=== PATIENT | female | born 1940 | race Caucasian/White ===

== ENCOUNTER 2017-08-30 08:09 | Outpatient (RCR) | payer OTHER, SELFPAY ==
[2017-08-30 09:03] LABS: International Normalized Ratio 2.4; Prothrombin Time (Protime)PT. 25.5 SECONDS (11.7-14.9)
== END 2017-08-30 09:00 | disposition home or self-care (01) ==
LOC: LAB 08:09
PROVIDERS: Family Provider Internal Medicine; PCP Internal Medicine; Visit Provider Internal Medicine Cardiovascular Disease
DX: I48.0 Paroxysmal atrial fibrillation (principal)
CPT/HCPCS: 36415; 85610

== ENCOUNTER → 2017-09-21 08:19 | Outpatient (CLI) | payer OTHER, SELFPAY ==
[2017-09-21] VITALS (7 sets, daily range): BP systolic 63–83; BP diastolic 39–57; PULSE 99–116; RESP 16–20; TEMP 36.2–36.7; O2SAT 94–98; BMI 25.6
[2017-09-21] MEDS: Acetaminophen 325 MG Tablet 650 MG PO (08:29)
== END ==
PROVIDERS: Family Provider Internal Medicine; PCP Internal Medicine; Visit Provider Internal Medicine Hematology & Oncology
DX: Z51.89 Encounter for other specified aftercare (principal); D61.818 Other pancytopenia; K92.2 Gastrointestinal hemorrhage, unspecified
CPT/HCPCS: 36430; 86644; 86850; 86900; 86920; 86922; J7040; P9040; A4216

== ENCOUNTER 2017-10-04 15:21 | Outpatient (CLI) | payer OTHER, SELFPAY ==
[2017-10-04] VITALS (11 sets, daily range): BP systolic 55–97; BP diastolic 38–54; PULSE 93–117; RESP 16; TEMP 36.4–36.9; O2SAT 92–110
[2017-10-04] MEDS: Acetaminophen 325 MG Tablet 650 MG PO (16:09)
[2017-10-04 21:31] LABS: Bedside Glucose 170 mg/dL (70-110)
[2017-10-05 00:05] VITALS: BP 65/47; PULSE 93; RESP 16; TEMP 36.6; O2SAT 96
[2017-10-05 01:05] VITALS: BP 70/46; PULSE 99; RESP 18; TEMP 36.6; O2SAT 95
[2017-10-05 01:44] VITALS: BP 70/50; PULSE 101; RESP 18; TEMP 36.6; O2SAT 95
== END 2017-10-05 01:55 | disposition home or self-care (01) ==
LOC: MEDOUTP 15:22 → MS3 15:23
PROVIDERS: Family Provider Internal Medicine; PCP Internal Medicine; Visit Provider Internal Medicine Hematology & Oncology
DX: D46.20 Refractory anemia with excess of blasts, unspecified (principal); Z79.01 Long term (current) use of 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; K76.9 Liver disease, unspecified; K92.2 Gastrointestinal hemorrhage, unspecified
CPT/HCPCS: 36430; 82962; 86850; 86900; 86902; 86920; 86922; J7040; P9016; A4216

== ENCOUNTER → 2017-11-02 08:47 | Outpatient (CLI) | payer OTHER, SELFPAY ==
[2017-11-02] VITALS (7 sets, daily range): BP systolic 51–82; BP diastolic 33–56; PULSE 63–113; RESP 16–18; TEMP 36.3–36.8; O2SAT 92–100; BMI 25.2
[2017-11-02] MEDS: Acetaminophen 325 MG Tablet 650 MG PO (09:12)
== END ==
PROVIDERS: Family Provider Internal Medicine; PCP Internal Medicine; Visit Provider Internal Medicine Hematology & Oncology
DX: Z51.89 Encounter for other specified aftercare (principal); N18.9 Chronic kidney disease, unspecified; Z79.01 Long term (current) use of 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; K92.2 Gastrointestinal hemorrhage, unspecified
CPT/HCPCS: 36430; 86850; 86900; 86902; 86920; 86922; J7040; P9016; A4216

== ENCOUNTER 2017-11-08 11:01 | Outpatient (RCR) | payer OTHER, SELFPAY ==
[2017-09-13 10:37] LABS: International Normalized Ratio 3.3; Prothrombin Time (Protime)PT. 32.2 SECONDS (11.7-14.9)
[2017-09-27 10:34] LABS: International Normalized Ratio 3.2; Prothrombin Time (Protime)PT. 31.5 SECONDS (11.7-14.9)
[2017-10-19 11:13] LABS: International Normalized Ratio 2.9; Prothrombin Time (Protime)PT. 30.8 SECONDS (11.7-14.9)
[2017-11-08 12:24] LABS: International Normalized Ratio 2.8; Prothrombin Time (Protime)PT. 29.4 SECONDS (11.7-14.9)
== END 2017-11-08 12:00 | disposition home or self-care (01) ==
LOC: LAB 11:01
PROVIDERS: Family Provider Internal Medicine; PCP Internal Medicine; Visit Provider Internal Medicine Cardiovascular Disease
DX: I48.0 Paroxysmal atrial fibrillation (principal)
CPT/HCPCS: 36415; 85610

== ENCOUNTER → 2017-11-23 08:49 | Outpatient (CLI) | payer OTHER, SELFPAY ==
[2017-11-23] VITALS (7 sets, daily range): BP systolic 40–81; BP diastolic 29–53; PULSE 84–112; RESP 16–20; TEMP 36.5–36.9; O2SAT 94–98; BMI 25.2
[2017-11-23] MEDS: Acetaminophen 325 MG Tablet 650 MG PO (09:00)
== END ==
PROVIDERS: Family Provider Internal Medicine; PCP Internal Medicine; Visit Provider Internal Medicine Hematology & Oncology
DX: N18.3 Chronic kidney disease, stage 3 (moderate) (principal); D63.1 Anemia in chronic kidney disease
CPT/HCPCS: 36430; 86850; 86900; 86902; 86920; 86922; J7040; P9016; A4216

== ENCOUNTER 2017-12-06 10:23 | Outpatient (RCR) | payer OTHER, SELFPAY ==
[2017-11-22 11:50] LABS: Prothrombin Time (Protime)PT. 30.9 SECONDS (11.7-14.9)
[2017-12-06 11:30] LABS: International Normalized Ratio 3.3; Prothrombin Time (Protime)PT. 33.9 SECONDS (11.7-14.9)
== END 2017-12-06 11:00 | disposition home or self-care (01) ==
LOC: LAB 10:23
PROVIDERS: Family Provider Internal Medicine; PCP Internal Medicine; Visit Provider Internal Medicine Cardiovascular Disease
DX: I48.0 Paroxysmal atrial fibrillation (principal)
CPT/HCPCS: 36415; 85610

== ENCOUNTER 2017-12-13 13:27 | Outpatient (CLI) | payer OTHER, SELFPAY ==
[2017-12-13] VITALS (10 sets, daily range): BP systolic 63–109; BP diastolic 41–80; PULSE 87–111; RESP 16–18; TEMP 36.4–37; O2SAT 94–98; BMI 24.8
[2017-12-13] MEDS: Acetaminophen 325 MG Tablet 650 MG PO (13:40)
--- NOTE | 2017-12-13 16:00 | NURSING ---
Addendum entered by Georgina Castro 12/13/17 16:02: Pt transfered to [facility] at 1535 Original Note: Report given to Shonda White, pt alert and oriented x3 upon transfer to [facility].
== END 2017-12-13 21:10 | disposition home or self-care (01) ==
LOC: MEDOUTP 13:27 → MS2 15:44
PROVIDERS: Family Provider Internal Medicine; PCP Internal Medicine; Visit Provider Internal Medicine Hematology & Oncology
DX: Z51.89 Encounter for other specified aftercare (principal); N18.3 Chronic kidney disease, stage 3 (moderate); Z79.01 Long term (current) use of 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; K92.2 Gastrointestinal hemorrhage, unspecified
CPT/HCPCS: 36430; 86850; 86900; 86902; 86920; 86922; J7040; P9016; A4216

== ENCOUNTER 2017-12-20 10:15 | Outpatient (RCR) | payer OTHER, SELFPAY ==
[2017-12-20 11:59] LABS: International Normalized Ratio 2.8
== END 2017-12-20 11:00 | disposition home or self-care (01) ==
LOC: LAB 10:15
PROVIDERS: Family Provider Internal Medicine; PCP Internal Medicine; Visit Provider Internal Medicine Cardiovascular Disease
DX: I48.0 Paroxysmal atrial fibrillation (principal); Z95.2 Presence of prosthetic heart valve; Z79.01 Long term (current) use of 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
CPT/HCPCS: 36415; 85610

== ENCOUNTER → 2018-01-04 08:12 | Outpatient (CLI) | payer OTHER, SELFPAY ==
[2018-01-04] VITALS (7 sets, daily range): BP systolic 60–80; BP diastolic 35–45; PULSE 115–123; RESP 18–20; TEMP 36.2–37; O2SAT 92–99; BMI 24.7
[2018-01-04] MEDS: Acetaminophen 325 MG Tablet 650 MG PO (08:31)
== END ==
PROVIDERS: Family Provider Internal Medicine; PCP Internal Medicine; Visit Provider Internal Medicine Hematology & Oncology
DX: Z51.89 Encounter for other specified aftercare (principal)
CPT/HCPCS: 36430; 86644; 86850; 86900; 86902; 86920; 86922; J7040; P9016; A4216

== ENCOUNTER 2018-01-07 17:57 | Emergency (ER) | payer OTHER, SELFPAY ==
[2018-01-07] VITALS (13 sets, daily range): BP systolic 39–89; BP diastolic 24–62; PULSE 50–118; RESP 18–26; TEMP 36.4–36.6; O2SAT 22–100; BMI 24.6
--- NOTE | 2018-01-07 18:04 | EKG12_ITS ---
Test Reason : HYPOTENSION Blood Pressure : / mmHG Vent. Rate : 112 BPM Atrial Rate : 112 BPM P-R Int : 148 ms QRS Dur : 076 ms QT Int : 356 ms P-R-T Axes : 090 -01 122 degrees QTc Int : 485 ms Sinus tachycardia Low voltage QRS Nonspecific ST and T wave abnormality Abnormal ECG Confirmed by JENNIFER PFEIFFER ([id number]), offline editor SUZANNE SAAVEDRA ([id number]) on 01/21/2018 5:14:06 PM Referred By: MAMTA Confirmed By:JENNIFER PFEIFFER
[2018-01-07] MEDS: 0.9% Normal Saline 1,000 ML 1000 ML IV ×2 (18:21)
[2018-01-07 18:29] LABS: Absolute Lymphocyte Count 0.98 X10^3/ul (0.83-4.51); Absolute Neutrophil Count 8.9 X10^3/uL (2.0-7.7); Basophil# 0.03 X10^3/uL; Basophil% 0.3 % (0-1); Eosinophil# 0.05 X10^3/uL; Eosinophils% 0.5 % (0-5); Hematocrit 14.3 % (37-47); Lymphocyte # 0.98 X10^3/ul (4.0); Lymphocyte % 9.4 % (19-41); Mean Corp Hgb Conc 31.5 g/gl (32-36); Mean Corpuscular Hgb 28.3 pg (27.0-32.0); Mean Corpuscular Volume 89.9 fL (81-99); Monocyte% 3.8 % (0-10); Neutrophil # 8.94 X10^3/uL (2.7-7.7); Neutrophil % 85.4 % (47-70); Platelet Count 175 K/mm3 (150-450); RBC Distribution Width CV 18.8 % (11.6-14.6); RBC Distribution Width SD 57.1 fl (35.1-43.9); Red Blood Count 1.59 M/mm3 (4.2-5.4); White Blood Count 10.5 K/mm3 (4.4-11.0)
[2018-01-07 18:30] LABS: Differential Indicated SCAN CRITERIA MET; Hemoglobin 4.5 g/dl (12.0-15.0); POSITIVE COUNT YES; POSITIVE DIFFERENTIAL NO; POSITIVE MORPHOLOGY NO
[2018-01-07 18:49] LABS: ALB/GLOB Ratio 0.8 RATIO (0.9-2.4); AST(SGOT) 6 U/L (15-37); Alanine Aminotransfer ALT/SGPT 8 U/L (13-56); Albumin, Serum 2.3 g/dL (3.2-5.0); Alkaline Phosphatase 64 U/L (45-117); Anion Gap 9 (5-15); BUN 52 mg/dL (7-18); BUN/Creat Ratio 30.8 RATIO (10-20); Calcium,Total 7.5 mg/dL (8.5-10.1); Chloride 110 mmol/L (98-107); Creatinine, Serum 1.69 mg/dL (0.55-1.02); EST Glomerular Filtration Rate 31 mL/min (>60); Est Glom Filt Rate - Afr Amer 38 mL/min (>60); Estimated Creatinine Clearance 22.75 ml/min; Globulin 2.9 g/dL (2.2-4.2); Glucose 253 mg/dL (74-106); Protein, Total 5.2 g/dL (6.4-8.2); Sodium Level 136 mmol/L (136-145)
[2018-01-07 18:55] LABS: Differential Comment SCANNED; Hypochromasia RARE; Polychromasia 1+
[2018-01-07 18:56] LABS: Target Cells RARE
--- NOTE | 2018-01-07 19:54 | ED.RN ---
vs documented 90% on 2L- should be 100% 2L- TAR
[2018-01-07 21:11] LABS: Lactic Acid 1.6 mmol/L (0.4-2.0)
[2018-01-07 21:21] LABS: Prothrombin Time (Protime)PT. > 120.0 SECONDS (11.7-14.9)
[2018-01-07 21:23] LABS: International Normalized Ratio > 19.5
--- NOTE | 2018-01-07 21:30 | ED.RN ---
Dr. Boothe aware of results that were previously called
--- NOTE | 2018-01-07 21:59 | ED.DCSUM_ITS ---
- ER Visit Summary Date of Service: 01/07/18 Chief Complaint: Weakness History of Present Illness: The patient is a 77 F to the emergency department with weakness and lightheadedness. Patient called squad because she was feeling very dizzy. The patient has a very complex medical history. She has a history of mitral valve replacement with mechanical valve and is fully anticoagulated on Coumadin. She has had recurrent GI bleed and chronic anemia. She does follow with Dr. Olivarez. She actually just had 2 units of blood on Sunday for symptomatic anemia. States over the past 2 days, her symptoms worsened. She states that she has constant dark stool which is not abnormal for her. However, when she changes position she feels very lightheaded. For squad, she was markedly hypotensive with blood pressures in the 40s. She was awake and she was alert. She denies any abdominal pain. Physical Examination: Vital signs reviewed General: Well-nourished, well-developed Head: Normocephalic, atraumatic Eyes: Pupils equal and reactive, extraocular muscles intact, pale conjunctiva Neck, supple, no lymphadenopathy Heart: Regular rate and rhythm with murmur Respiratory: No distress, clear bilaterally Abdomen: Soft, nontender, nondistended, no peritoneal signs Rectal: Guaiac positive melanotic stool, no gross blood Back: Nontender Extremities: Nontender, no edema, no cords Skin: Normal color no rash Neuro: Alert and oriented, no focal or lateralizing deficits Test Results: [] Emergency Department Course and Treatment: It was initially hypotensive on arrival with blood pressures in the 40 systolic. However, she was awake and alert. She was not complaining of any pain. 2 large-bore these were established. I did initially order the patient trauma blood. However, given her multiple transfusion she has multiple antibodies. She is already hypotensive, I did not want to cause an acute transfusion reaction and worsen her hypotension. She was fluid responsive. With 2 L of fluids, her blood pressure had increased into the 70s. Her mental status was improving. Patient was transfused 2 units of blood. Her hemoglobin was 4.5. We did have a difficult time obtaining INR which was pending. I did discuss the patient with Awa Garza, who did accept the patient in transfer. She was started on a Protonix drip. The patient's INR did return at greater than 19. She was given IV vitamin K. I was going to order FFP, but the patient was already to be transferred. I did not want to delay transfer she should have definitive therapy. The patient had a normal lactate. She will be transferred in critical condition to [facility] for continued therapy of symptomatic GI bleed and supratherapeutic INR. 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 Treatment Plan: [] Disposition: Transfer Impression:. Acute GI bleed 2. Hemorrhagic shock 3. Supratherapeutic INR This note was generated with [employer] dictation software. It may contain incorrect words, spelling, and punctuation that were not noted in review of the chart prior to signing ED Disposition - Plan for ED Patient: Chief Complaint: Hypotension Referrals: Kodak Muñoz MD [Primary Care Provider] -
[2018-01-08 14:15] LABS: Pathologist Review Reviewed
== END 2018-01-07 22:06 | disposition short-term general hospital (02) ==
PROVIDERS: Emergency Provider Emergency Medicine; Family Provider Internal Medicine; PCP Internal Medicine
DX: K92.1 Melena (principal); R57.8 Other shock; I25.10 Atherosclerotic heart disease of native coronary artery without angina pectoris; I10 Essential (primary) hypertension; E78.00 Pure hypercholesterolemia, unspecified; Z95.2 Presence of prosthetic heart valve; Z79.4 Long term (current) use of insulin; Z79.51 Long term (current) use of inhaled steroids; Z79.01 Long term (current) use of 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; Z79.899 Other long term (current) drug therapy
CPT/HCPCS: 36415; 36430; 80053; 83605; 84484; 85025; 85610; 86850; 86900; 86902; 86920; 86922; 93005; 99285; J7030; P9016; A4216; J3490

== ENCOUNTER 2018-02-05 09:06 | Outpatient (RCR) | payer OTHER, SELFPAY ==
--- NOTE | 2018-01-17 10:23 | DT_ITS ---
This patient was seen during an EMR downtime January 14, 2018 - January 21, 2018. This patient may have a combination of paper and electronic documentation or all paper documentation. All documentation is viewable within the e-chart portion of [employer] for each patient visit.
[2018-01-22 04:17] LABS: International Normalized Ratio 2.9; Prothrombin Time (Protime)PT. 30.8 SECONDS (11.7-14.9)
[2018-02-05 11:09] LABS: International Normalized Ratio 1.8; Prothrombin Time (Protime)PT. 21.3 SECONDS (11.7-14.9)
== END 2018-02-05 10:00 | disposition home or self-care (01) ==
LOC: LAB 09:06
PROVIDERS: Family Provider Internal Medicine; PCP Internal Medicine; Visit Provider Internal Medicine Cardiovascular Disease
DX: Z95.2 Presence of prosthetic heart valve (principal); Z79.01 Long term (current) use of 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
CPT/HCPCS: 36415; 85610

== ENCOUNTER 2018-02-21 08:33 | Outpatient (RCR) | payer OTHER, SELFPAY ==
[2018-02-14 10:50] LABS: International Normalized Ratio 2.1; Prothrombin Time (Protime)PT. 23.2 SECONDS (11.7-14.9)
[2018-02-21 09:35] LABS: International Normalized Ratio 2.9; Prothrombin Time (Protime)PT. 30.7 SECONDS (11.7-14.9)
== END 2018-03-12 20:00 | disposition home or self-care (01) ==
LOC: LAB 08:33
PROVIDERS: Family Provider Internal Medicine; PCP Internal Medicine; Visit Provider Internal Medicine Cardiovascular Disease
DX: Z95.2 Presence of prosthetic heart valve (principal); Z79.01 Long term (current) use of 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
CPT/HCPCS: 36415; 85610

== ENCOUNTER → 2018-02-22 12:40 | Outpatient (CLI) | payer OTHER, SELFPAY ==
--- NOTE | 2018-02-22 12:41 | CDU_ITS ---
Reason For Study: Bruit Rt. Velocities/BP Lt. Velocities/BP Prox CCA 59/32 cm/sec. Prox CCA 116/24 cm/sec. Mid CCA 70/39 cm/sec. Mid CCA 83/22 cm/sec. Dist CCA 41/26 cm/sec. Dist CCA 225/59 cm/sec. Prox ICA 61/43 cm/sec. Prox ICA 216/66 cm/sec. Mid ICA 72/49 cm/sec. Mid ICA 251/71 cm/sec. Dist ICA 55/37 cm/sec. Dist ICA 111/43 cm/sec. Rt. ICA/CCA = 1.02. Lt. ICA/CCA = 3.02. Prox ECA 54/14 cm/sec. Prox ECA 138/8 cm/sec. Rt. Vert. 27/11 cm/sec. Lt. Vert. 52/23 cm/sec. Right Extracranial There is heterogeneous, irregular atherosclerotic plaque noted in the right common carotid artery. There is heterogeneous, irregular atherosclerotic plaque noted in the right internal carotid artery. There is heterogeneous, irregular atherosclerotic plaque noted in the right external carotid artery. Antegrade flow is noted in the right vertebral artery. Left Extracranial There is heterogeneous, irregular atherosclerotic plaque noted in the left common carotid artery. There is heterogeneous, irregular atherosclerotic plaque noted in the left internal carotid artery. There is heterogeneous, irregular atherosclerotic plaque noted in the left external carotid artery. Antegrade flow is noted in the left vertebral artery. Procedure Carotid Duplex 85175. Prelim given to Leidy CAMPOS. Exam performed in department. Interpretation Summary Calcific irregular plague at the distal right common carotid and proximal internal and external carotids. <50% stenosis right internal carotid Irregular calcific plague at the distal left common carotid and proximal left internal and external carotids. 50-69% stenosis left internal carotid (likely closer to 69%) Normal flow right external carotid and mild disease on the left Patent and antegrade vertebrals bilaterally Ordering Physician: Eddie Mendoza Referring Physician: Kodak Muñoz Performed By: Ginny Valenzuela, SCOTT, RVT
== END ==
PROVIDERS: Family Provider Internal Medicine; PCP Internal Medicine; Visit Provider Internal Medicine Cardiovascular Disease
DX: R09.89 Other specified symptoms and signs involving the circulatory and respiratory systems (principal)
CPT/HCPCS: 93880

== ENCOUNTER 2018-03-14 07:50 | Outpatient (RCR) | payer OTHER, SELFPAY ==
[2018-03-14 09:15] LABS: International Normalized Ratio 2.9; Prothrombin Time (Protime)PT. 30.3 SECONDS (11.7-14.9)
== END 2018-03-14 09:00 | disposition home or self-care (01) ==
LOC: LAB 07:50
PROVIDERS: Family Provider Internal Medicine; PCP Internal Medicine; Visit Provider Internal Medicine Cardiovascular Disease
DX: Z95.2 Presence of prosthetic heart valve (principal); Z79.01 Long term (current) use of 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
CPT/HCPCS: 36415; 85610

== ENCOUNTER → 2018-03-29 08:22 | Outpatient (CLI) | payer OTHER, SELFPAY ==
[2018-03-29] MEDS: Acetaminophen 325 MG Tablet 650 MG PO (08:45)
[2018-03-29 08:48] VITALS: BP 79/56; PULSE 114; RESP 20; TEMP 36.4; O2SAT 94; BMI 23.8
[2018-03-29 09:08] VITALS: BP 67/46; PULSE 56; RESP 16; TEMP 36.3; O2SAT 100
[2018-03-29 11:22] VITALS: BP 68/47; PULSE 89; RESP 16; TEMP 37.1; O2SAT 97
[2018-03-29 11:50] VITALS: BP 64/39; PULSE 81; RESP 18; TEMP 36.4; O2SAT 95
[2018-03-29 12:50] VITALS: BP 81/50; PULSE 89; RESP 18; TEMP 37; O2SAT 95
[2018-03-29 13:48] VITALS: BP 85/57; PULSE 121; RESP 16; TEMP 36.6; O2SAT 95
== END ==
PROVIDERS: Family Provider Internal Medicine; PCP Internal Medicine; Visit Provider Internal Medicine Hematology & Oncology
DX: Z51.89 Encounter for other specified aftercare (principal); D64.9 Anemia, unspecified; K31.811 Angiodysplasia of stomach and duodenum with bleeding
CPT/HCPCS: 36430; 86850; 86900; 86920; 86922; J7040; P9016

== ENCOUNTER → 2018-04-12 07:49 | Outpatient (CLI) | payer OTHER, SELFPAY ==
[2018-04-12] VITALS (7 sets, daily range): BP systolic 51–112; BP diastolic 32–50; PULSE 83–116; RESP 16–18; TEMP 36.4–36.9; O2SAT 96–98; BMI 23.8
[2018-04-12] MEDS: Acetaminophen 325 MG Tablet 650 MG PO (08:05)
== END ==
PROVIDERS: Family Provider Internal Medicine; PCP Internal Medicine; Visit Provider Internal Medicine Hematology & Oncology
DX: Z51.89 Encounter for other specified aftercare (principal); K92.2 Gastrointestinal hemorrhage, unspecified
CPT/HCPCS: 36430; 86850; 86900; 86902; 86920; 86922; J7040; P9016; A4216

== ENCOUNTER → 2018-04-19 07:51 | Outpatient (CLI) | payer OTHER, SELFPAY ==
[2018-04-19] VITALS (7 sets, daily range): BP systolic 50–83; BP diastolic 38–55; PULSE 68–117; RESP 18–20; TEMP 36.6–37.1; O2SAT 90–99; BMI 23.8
== END ==
PROVIDERS: Family Provider Internal Medicine; PCP Internal Medicine; Visit Provider Internal Medicine Hematology & Oncology
DX: K92.2 Gastrointestinal hemorrhage, unspecified (principal)
CPT/HCPCS: 36430; 86850; 86900; 86920; 86922; J7040; P9016; A4216

== ENCOUNTER → 2018-04-26 07:56 | Outpatient (CLI) | payer OTHER, SELFPAY ==
[2018-04-26] VITALS (7 sets, daily range): BP systolic 50–108; BP diastolic 20–56; PULSE 79–114; RESP 16–28; TEMP 36.1–36.8; O2SAT 94–100; BMI 23.8
== END ==
PROVIDERS: Family Provider Internal Medicine; PCP Internal Medicine; Visit Provider Internal Medicine Hematology & Oncology
DX: Z51.89 Encounter for other specified aftercare (principal); K92.2 Gastrointestinal hemorrhage, unspecified
CPT/HCPCS: 36430; 86644; 86850; 86900; 86902; 86920; 86922; J7050; P9016; A4216

== ENCOUNTER 2018-05-03 07:44 | Outpatient (RCR) | payer OTHER, SELFPAY ==
[2018-04-18 11:32] LABS: Prothrombin Time (Protime)PT. 37.2 SECONDS (11.7-14.9)
[2018-04-18 11:43] LABS: International Normalized Ratio 3.7
[2018-04-25 14:02] LABS: Prothrombin Time (Protime)PT. 38.7 SECONDS (11.7-14.9)
[2018-04-25 14:10] LABS: International Normalized Ratio 3.9
[2018-05-03 08:28] LABS: International Normalized Ratio 2.4; Prothrombin Time (Protime)PT. 26.5 SECONDS (11.7-14.9)
== END 2018-05-03 09:00 | disposition home or self-care (01) ==
LOC: LAB 07:44
PROVIDERS: Family Provider Internal Medicine; PCP Internal Medicine; Visit Provider Internal Medicine Cardiovascular Disease
DX: Z95.2 Presence of prosthetic heart valve (principal); Z79.01 Long term (current) use of 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
CPT/HCPCS: 36415; 85610; 86850; 86900; 86920; 86922

== ENCOUNTER → 2018-05-03 08:01 | Outpatient (CLI) | payer OTHER, SELFPAY ==
[2018-05-03] VITALS (7 sets, daily range): BP systolic 60–112; BP diastolic 37–76; PULSE 82–106; RESP 15–18; TEMP 36.5–37.2; O2SAT 92–96; BMI 23.8
[2018-05-03] MEDS: Acetaminophen 325 MG Tablet 650 MG PO (08:20)
== END ==
PROVIDERS: Family Provider Internal Medicine; PCP Internal Medicine; Visit Provider Internal Medicine Hematology & Oncology
DX: Z51.89 Encounter for other specified aftercare (principal); K31.811 Angiodysplasia of stomach and duodenum with bleeding
CPT/HCPCS: 36430; 86644; 86850; 86900; 86902; 86920; 86922; J7050; P9016; A4216

== ENCOUNTER → 2018-05-17 08:53 | Outpatient (CLI) | payer OTHER, SELFPAY ==
[2018-05-17 09:02] VITALS: BP 58/36; PULSE 111; RESP 18; TEMP 36.4; O2SAT 93; BMI 23.8
[2018-05-17] MEDS: Acetaminophen 325 MG Tablet 650 MG PO (09:19)
[2018-05-17 09:42] VITALS: BP 56/43; PULSE 108; RESP 16; TEMP 36.8; O2SAT 100
[2018-05-17 10:42] VITALS: BP 63/49; PULSE 104; RESP 16; O2SAT 93
[2018-05-17 11:29] VITALS: BP 54/40; PULSE 101; RESP 15; TEMP 36.6; O2SAT 96
[2018-05-17 11:57] VITALS: BP 54/37; PULSE 52; RESP 16; TEMP 36.4; O2SAT 96
[2018-05-17 12:01] VITALS: BP 88/44; PULSE 91; RESP 15; TEMP 36.2; O2SAT 94
== END ==
PROVIDERS: Family Provider Internal Medicine; PCP Internal Medicine; Referring Provider Internal Medicine Hematology & Oncology; Visit Provider Internal Medicine Hematology & Oncology
DX: Z51.89 Encounter for other specified aftercare (principal); N18.9 Chronic kidney disease, unspecified; K92.2 Gastrointestinal hemorrhage, unspecified
CPT/HCPCS: 36430; 86850; 86900; 86902; 86920; 86922; J7040; P9016; A4216

== ENCOUNTER 2018-05-30 12:14 | Outpatient (RCR) | payer OTHER, SELFPAY ==
[2018-05-16 11:58] LABS: International Normalized Ratio 3.2; Prothrombin Time (Protime)PT. 33.2 SECONDS (11.7-14.9)
[2018-05-30 13:44] LABS: International Normalized Ratio 3.2; Prothrombin Time (Protime)PT. 33.1 SECONDS (11.7-14.9)
== END 2018-05-30 14:00 | disposition home or self-care (01) ==
LOC: LAB 12:14
PROVIDERS: Family Provider Internal Medicine; PCP Internal Medicine; Referring Provider Internal Medicine Cardiovascular Disease; Visit Provider Internal Medicine Cardiovascular Disease
DX: Z95.2 Presence of prosthetic heart valve (principal); Z79.01 Long term (current) use of 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
CPT/HCPCS: 36415; 85610

== ENCOUNTER → 2018-05-31 08:01 | Outpatient (CLI) | payer OTHER, SELFPAY ==
[2018-05-31] VITALS (7 sets, daily range): BP systolic 64–84; BP diastolic 31–58; PULSE 74–103; RESP 16–18; TEMP 36.2–36.6; O2SAT 93–99; BMI 23.8
[2018-05-31] MEDS: Acetaminophen 325 MG Tablet 650 MG PO (08:20)
== END ==
PROVIDERS: Family Provider Internal Medicine; PCP Internal Medicine; Referring Provider Internal Medicine Hematology & Oncology; Visit Provider Internal Medicine Hematology & Oncology
DX: Z51.89 Encounter for other specified aftercare (principal); N18.9 Chronic kidney disease, unspecified; K92.2 Gastrointestinal hemorrhage, unspecified
CPT/HCPCS: 36430; 86850; 86900; 86902; 86920; 86922; J7040; P9016; A4216

== ENCOUNTER → 2018-06-21 08:55 | Outpatient (CLI) | payer OTHER, SELFPAY ==
[2018-06-21 09:04] VITALS: BP 61/53; PULSE 110; RESP 16; TEMP 37.2; O2SAT 98; BMI 23.8
[2018-06-21] MEDS: Acetaminophen 325 MG Tablet 650 MG PO (09:13)
[2018-06-21 09:39] VITALS: BP 67/54; TEMP 36.9
[2018-06-21 10:39] VITALS: BP 70/49; PULSE 94; RESP 16; TEMP 37.9; O2SAT 95
[2018-06-21 11:50] VITALS: BP 50/37; PULSE 93; RESP 16; TEMP 37.2; O2SAT 94
[2018-06-21 12:55] VITALS: BP 68/50; PULSE 94; RESP 16; TEMP 37.3; O2SAT 95
[2018-06-21 13:34] VITALS: BP 75/47; PULSE 95; RESP 16; TEMP 37.1; O2SAT 94
== END ==
PROVIDERS: Family Provider Internal Medicine; PCP Internal Medicine; Referring Provider Internal Medicine Hematology & Oncology; Visit Provider Internal Medicine Hematology & Oncology
DX: Z51.89 Encounter for other specified aftercare (principal); D64.9 Anemia, unspecified; K92.2 Gastrointestinal hemorrhage, unspecified
CPT/HCPCS: 36430; 86850; 86900; 86902; 86920; 86922; J7040; P9016; A4216

== ENCOUNTER 2018-07-06 08:57 | Outpatient (CLI) | payer OTHER, SELFPAY ==
[2018-07-05 11:20] VITALS: BMI 25.6
[2018-07-06] VITALS (8 sets, daily range): BP systolic 67–97; BP diastolic 39–62; PULSE 110–118; RESP 16–18; TEMP 36.6–37.3; O2SAT 91–95
[2018-07-06] MEDS: Acetaminophen 325 MG Tablet 650 MG PO (09:54)
== END 2018-07-06 15:41 | disposition home or self-care (01) ==
LOC: MS3OUT 08:58 → MS3 08:59
PROVIDERS: Family Provider Internal Medicine; PCP Internal Medicine; Referring Provider Internal Medicine Hematology & Oncology; Visit Provider Internal Medicine Hematology & Oncology
DX: N18.3 Chronic kidney disease, stage 3 (moderate) (principal); D63.1 Anemia in chronic kidney disease
CPT/HCPCS: 36430; 86850; 86900; 86902; 86920; 86922; J7040; P9040

== ENCOUNTER 2018-07-08 10:38 | Outpatient (RCR) | payer OTHER, SELFPAY ==
[2018-06-20 11:47] LABS: International Normalized Ratio 3.4; Prothrombin Time (Protime)PT. 34.7 SECONDS (11.7-14.9)
[2018-07-01 11:56] LABS: International Normalized Ratio 3.5
[2018-07-08 11:27] LABS: International Normalized Ratio 2.9; Prothrombin Time (Protime)PT. 30.6 SECONDS (11.7-14.9)
== END 2018-07-12 09:37 | disposition home or self-care (01) ==
LOC: LAB 10:38
PROVIDERS: Family Provider Internal Medicine; PCP Internal Medicine; Referring Provider Internal Medicine Cardiovascular Disease; Visit Provider Internal Medicine Cardiovascular Disease
DX: Z95.2 Presence of prosthetic heart valve (principal); Z79.01 Long term (current) use of 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
CPT/HCPCS: 36415; 85610

== ENCOUNTER → 2018-07-19 08:33 | Outpatient (CLI) | payer OTHER, SELFPAY ==
[2018-07-05 11:20] VITALS: BMI 25.6
[2018-07-19] VITALS (7 sets, daily range): BP systolic 58–74; BP diastolic 38–52; PULSE 90–114; RESP 16–20; TEMP 36.3; O2SAT 92–100; BMI 24.1
[2018-07-19] MEDS: Acetaminophen 325 MG Tablet 650 MG PO (08:55)
== END ==
PROVIDERS: Family Provider Internal Medicine; PCP Internal Medicine; Referring Provider Internal Medicine Hematology & Oncology; Visit Provider Internal Medicine Hematology & Oncology
DX: Z51.89 Encounter for other specified aftercare (principal); N18.3 Chronic kidney disease, stage 3 (moderate); D63.1 Anemia in chronic kidney disease; K92.2 Gastrointestinal hemorrhage, unspecified
CPT/HCPCS: 36430; 86850; 86900; 86902; 86920; 86922; J7040; P9016; A4216

== ENCOUNTER → 2018-07-26 08:35 | Outpatient (CLI) | payer OTHER, SELFPAY ==
[2018-07-19 08:58] VITALS: BMI 24.1
[2018-07-26] VITALS (7 sets, daily range): BP systolic 49–84; BP diastolic 39–51; PULSE 50–109; RESP 16–18; TEMP 36.1–36.7; O2SAT 94–96; BMI 24.1
[2018-07-26] MEDS: Acetaminophen 325 MG Tablet 650 MG PO (09:00)
--- OUTSIDE RECORDS SUMMARY | 2018-09-10 20:51 | XMS RPT_ITS ---
:1940 Author Organization OHIP Support Name Relationship Address Phone ZIA LOUIS Unavailable [address] + [place] [address] OLIVIA, LATOSHA Unavailable Unavailable + R Unavailable Unavailable Unavailable ZIA LOUIS Unavailable [address] + [place] [address] OLIVIA, LATOSHA Unavailable Unavailable + R Unavailable Unavailable Unavailable ZIA LOUIS Unavailable [address] + [place] [address] OLIVIA, LATOSHA Unavailable Unavailable + R Unavailable Unavailable Unavailable ZIA LOUIS Unavailable [address] + [place] [address] OLIVIA, LATOSHA Unavailable Unavailable + R Unavailable Unavailable Unavailable ZIA LOUIS Unavailable [address] + [place] [address] OLIVIA, LATOSHA Unavailable Unavailable + R Unavailable Unavailable Unavailable ZIA LOUIS Unavailable [address] + [place] [address] OLIVAI, LATOSHA Unavailable Unavailable + R Unavailable Unavailable Unavailable ZIA LOUIS Unavailable [address] + [place] [address] OLIVIA, LATOSHA Unavailable Unavailable + R Unavailable Unavailable Unavailable ZIA LOUIS Unavailable [address] + [place] [address] OLIVIA, LATOSHA Unavailable Unavailable + R Unavailable Unavailable Unavailable ZIA LOUIS Unavailable [address] + [place] [address] OLIVIA, LATOSHA Unavailable Unavailable + R Unavailable Unavailable Unavailable ZIA LOUIS Unavailable [address] + [place] [address] OLIVIA, LATOSHA Unavailable Unavailable + R Unavailable Unavailable Unavailable MISSY ZIA Unavailable [address] + [place] [address] OLIVIA, LATOSHA Unavailable Unavailable + [place] [address] R Unavailable Unavailable Unavailable ZIA LOUIS Unavailable [address] + [place] [address] OLIVIA, LATOSHA Unavailable Unavailable + [place] [address] R Unavailable Unavailable Unavailable MISSY ZIA Unavailable [address] + [place] [address] OLIVIA, LATOSHA Unavailable . + ., [place] . R Unavailable Unavailable Unavailable ZIA LOUIS Unavailable [address] + [place] [address] OLIVIA, LATOSHA Unavailable Unavailable + R Unavailable Unavailable Unavailable ZIA LOUIS Unavailable [address] + [place] [address] OLIVIA, LATOSHA Unavailable Unavailable + R Unavailable Unavailable Unavailable ZIA LOUIS Unavailable [address] + [place] [address] OLIVIA, LATOSHA Unavailable Unavailable + R Unavailable Unavailable Unavailable ZIA LOUIS Unavailable [address] + [place] [address] OLIVIA, LATOSHA Unavailable Unavailable + R Unavailable Unavailable Unavailable ZIA LOUIS Unavailable [address] + [place] [address] OLIVIA, LATOSHA Unavailable Unavailable + R Unavailable Unavailable Unavailable ZIA LOUIS Unavailable [address] + [place] [address] OLIVIA, LATOSHA Unavailable Unavailable + R Unavailable Unavailable Unavailable ZAI LOUIS Unavailable [address] + [place] [address] OLIVIA, LATOSHA Unavailable Unavailable + R Unavailable Unavailable Unavailable ZIA LOUIS Unavailable [address] + [place] [address] OLIVIA, LATOSHA Unavailable Unavailable + R Unavailable Unavailable Unavailable ZIA LOUIS Unavailable [address] + [place] [address] OLIVIA, LATOSHA Unavailable Unavailable + R Unavailable Unavailable Unavailable ZIA LOUIS Unavailable [address] + [place] [address] OLIVIA, LATOSHA Unavailable Unavailable + R Unavailable Unavailable Unavailable MISSY ZIA Unavailable [address] + [place] [address] OLIVIA, LATOSHA Unavailable Unavailable + R Unavailable Unavailable Unavailable ZIA LOUIS Unavailable [address] + [place] [address] OLIVIA, LATOSHA Unavailable Unavailable + R Unavailable Unavailable Unavailable ZIA LOUIS Unavailable [address] + [place] [address] OLIVIA, LATOSHA Unavailable Unavailable + R Unavailable Unavailable Unavailable ZIA LOUIS Unavailable [address] + [place] [address] OLIVIA, LATOSHA Unavailable Unavailable + R Unavailable Unavailable Unavailable ZIA LOUIS Unavailable [address] + [place] [address] OLIVIA, LATOSHA Unavailable Unavailable + R Unavailable Unavailable Unavailable ZIA LOUIS Unavailable [address] + [place] [address] OLIVIA, LATOSHA Unavailable Unavailable + R Unavailable Unavailable Unavailable ZIA LOUIS Unavailable [address] + [place] [address] OLIVIA, LATOSHA Unavailable Unavailable + R Unavailable Unavailable Unavailable ZIA LOUIS Unavailable [address] + [place] [address] OLIVIA, LATOSHA Unavailable Unavailable + R Unavailable Unavailable Unavailable ZIA LOUIS Unavailable [address] + [place] [address] LATOSHA OLIVIA Unavailable Unavailable + R Unavailable Unavailable Unavailable ZIA LOUIS Unavailable [address] + [place] [address] LATOSHA OLIVIA Unavailable Unavailable + R Unavailable Unavailable Unavailable ZIA LOUIS Unavailable [address] + [place] [address] LATOSHA OLIVIA Unavailable Unavailable + R Unavailable Unavailable Unavailable ZIA LOUIS Unavailable [address] + [place] [address] R Unavailable Unavailable Unavailable ZIA LOUIS Unavailable [address] + [place] [address] R Unavailable Unavailable Unavailable ZIA LOUIS Unavailable [address] + [place] [address] R Unavailable Unavailable Unavailable ZIA LOUIS Unavailable [address] + [place] [address] R Unavailable Unavailable Unavailable ZIA LOUIS Unavailable [address] + [place] [address] R Unavailable Unavailable Unavailable ZIA LOUIS Unavailable [address] + [place] [address] R Unavailable Unavailable Unavailable ZIA LOUIS Unavailable [address] + [place] [address] R Unavailable Unavailable Unavailable ZIA LOUIS Unavailable [address] + [place] [address] R Unavailable Unavailable Unavailable ZIA LOUIS Unavailable [address] + [place] [address] R Unavailable Unavailable Unavailable ZIA LOUIS Unavailable [address] + [place] [address] R Unavailable Unavailable Unavailable ZIA LOUIS Unavailable [address] + [place] [address] R Unavailable Unavailable Unavailable Care Team Providers Name Role Elza Faustin Attending Unavailable IMCA Referring Unavailable Toni GUILLEN, [employer] Primary Care Unavailable HEMA GORMAN Admitting Unavailable HEMA GORMAN Attending Unavailable Toni GUILLEN, [employer] Primary Care Unavailable MELISSA MURRIETA) Consulting Unavailable Kelly, Eddie Attending Unavailable Kelly, Eddie Referring Unavailable Muñoz, [employer] Primary Care Unavailable Kelly, Eddie Attending Unavailable Kelly, Eddie Referring Unavailable Muñoz, [employer] Primary Care Unavailable Jarrod, Lapman Attending Unavailable Muñoz, Kodak Primary Care Unavailable Jarrod, Lapman Attending Unavailable Jarrod, Lapman Referring Unavailable Muñoz, Kodak Primary Care Unavailable Masci, Lars Attending Unavailable Masci, Lars Referring Unavailable Muñoz, Kodak Primary Care Unavailable Jarrod, Lapman Consulting Unavailable Kelly, Eddie Attending Unavailable Kelly, [place] Referring Unavailable Muñoz, Kod[employer] Primary Care Unavailable MonaAngélica Attending Unavailable Muñoz, Kodak Referring Unavailable MonaAngélica Attending Unavailable Muñoz, Kodak Referring Unavailable Kelly, [employer] [place] Attending Unavailable Muñoz, Kodak Referring Unavailable Kelly, [place] Attending Unavailable Kelly, Eddie Referring Unavailable Muñoz, Kodak Primary Care Unavailable Jarrod, Lapman Attending Unavailable Muñoz, Kodak Primary Care Unavailable Jarrod, Lapman Attending Unavailable Jarrod, Lapman Referring Unavailable Muñoz, Kodak Primary Care Unavailable MonaAngélica Attending Unavailable Muñoz, Kodak Referring Unavailable Muñoz, Kodak Primary Care Unavailable Kelly, Eddie Attending Unavailable Kelly, Eddie Referring Unavailable Muñoz, Kodak Primary Care Unavailable Jarrod, Lapman Attending Unavailable Jarrod, Lapman Referring Unavailable Muñoz, Kodak Primary Care Unavailable Lorenzo Kimball Attending Unavailable Kelly, Eddie Attending Unavailable Muñoz, Kodak Referring Unavailable Muñoz, Kodak Primary Care Unavailable MonaAngélica Attending Unavailable Muñoz, Kodak Referring Unavailable Muñoz, Kodak Primary Care Unavailable Kelly, Eddie Attending Unavailable Kelly, Eddie Referring Unavailable Muñoz, Kodak Primary Care Unavailable Jarrod, Lapman Attending Unavailable Jarrod, Lapman Referring Unavailable Muñoz, Kodak Primary Care Unavailable Masci, Lars Attending Unavailable Masci, Lars Referring Unavailable Muñoz, Kodak Primary Care Unavailable Jarrod, Lapman Consulting Unavailable Muñoz, Kodak Primary Care Unavailable Jessie Boothe Attending Unavailable Kelly, [employer] [place] Attending Unavailable Kelly, [place] Referring Unavailable Muñoz, Kodak Primary Care Unavailable Muñoz, Kodak Referring Unavailable Kelly, Eddie Attending Unavailable Kelly, [place] Referring Unavailable Muñoz, Kodak Primary Care Unavailable Kelly, Eddie Attending Unavailable Kelly, [place] Referring Unavailable Muñoz, Kodak Primary Care Unavailable Kelly, Eddie Attending Unavailable Kelly, Eddie Referring Unavailable Muñoz, Kodak Primary Care Unavailable Jarrod, Lapman Attending Unavailable Jarrod, Lapman Referring Unavailable Muñoz, Kodak Primary Care Unavailable Angélica Dunn Attending Unavailable Muñoz, [employer]ak Referring Unavailable Kelly, Eddie Attending Unavailable Muñoz, Kodak Referring Unavailable Muñoz, [employer]ak Primary Care Unavailable Masci, Lars Attending Unavailable Masci, Lars Referring Unavailable Muñoz, Kodak Primary Care Unavailable Kelly, [place] Attending Unavailable Kelly, [place] Referring Unavailable Muñoz, Kodak Primary Care Unavailable Addison Loaiza Attending Unavailable Kelly, [place] Referring Unavailable Jarrod, Lapman Attending Unavailable Jarrod, Lapman Referring Unavailable Muñoz, Kodak Primary Care Unavailable Jarrod, Lapman Attending Unavailable Jarrod, Lapman Referring Unavailable Muñoz, Kodak Primary Care Unavailable Jarrod, Lapman Attending Unavailable Jarrod, Lapman Referring Unavailable Muñoz, Kodak Primary Care Unavailable Kelly, Eddie Attending Unavailable Kelly, [place] Referring Unavailable Muñoz, Kodak Primary Care Unavailable Jarrod, Lapman Attending Unavailable Jarrod, Lapman Referring Unavailable Muñoz, Kodak Primary Care Unavailable Jarrod, Lapman Attending Unavailable Jarrod, Lapman Referring Unavailable Muñoz, Kodak Primary Care Unavailable Angélica Dunn Attending Unavailable Muñoz, Kodak Referring Unavailable Kelly, Eddie Attending Unavailable Kelly, [place] Referring Unavailable Muñoz, Kodak Primary Care Unavailable Jarrod, Lapman Attending Unavailable Jarrod, Lapman Referring Unavailable Muñoz, Kodak Primary Care Unavailable Jarrod, Lapman Attending Unavailable Jarrod, Lapman Referring Unavailable Muñoz, Kodak Primary Care Unavailable Kelly, Eddie Attending Unavailable Kelly, [place] Referring Unavailable Muñoz, Kodak Primary Care Unavailable Jarrod, Lapman Attending Unavailable Jarrod, Lapman Referring Unavailable Muñoz, [employer] Primary Care Unavailable STEVE SUERO Attending Unavailable BAGGOTT, SILVINO HERRERA Referring Unavailable BAGGOTT, SILVINO HERRERA Referring Unavailable BAGGOTT, SILVINO HERRERA Referring Unavailable KAKARALA, HEMA Admitting Unavailable KAKARALA, HEMA Attending Unavailable MELISSA MURRIETA) Consulting Unavailable JARROD, LAPMAN Referring Unavailable JARROD, LAPMAN Referring Unavailable JARROD, LAPMAN Referring Unavailable JARROD, LAPMAN Referring Unavailable JARROD, LAPMAN Referring Unavailable JARROD, LAPMAN Referring Unavailable JARROD, LAPMAN Referring Unavailable JARROD, LAPMAN Referring Unavailable JARROD, LAPMAN Referring Unavailable JARROD, LAPMAN Referring Unavailable JARROD, LAPMAN Attending Unavailable JARROD, LAPMAN Referring Unavailable JARROD, LAPMAN Referring Unavailable JARROD, LAPMAN Referring Unavailable JARROD, LAPMAN Referring Unavailable SILVINO HU Attending Unavailable JARROD, LAPMAN Referring Unavailable JARROD, LAPMAN Referring Unavailable JARROD, LAPMAN Referring Unavailable JARROD, HUBERTMAN Referring Unavailable JARROD, HUBERTMAN Referring Unavailable JARROD, HUBERTMAN Referring Unavailable JARROD, LAPMAN Referring Unavailable JARROD, LAPMAN Referring Unavailable JARROD, LAPMAN Referring Unavailable JARROD, LAPMAN Referring Unavailable JARROD, LAPMAN Referring Unavailable JARROD, LAPMAN Referring Unavailable JARROD, LAPMAN Referring Unavailable JARROD, LAPMAN Referring Unavailable JARROD, LAPMAN Referring Unavailable JARROD, LAPMAN Referring Unavailable SILVINO HU Referring Unavailable SILVINO HU Attending Unavailable SILVINO HU Referring Unavailable JARROD, LAPMAN Referring Unavailable JARROD, LAPMAN Referring Unavailable SILVINO HU Referring Unavailable KODAK MUÑOZ Attending Unavailable JARROD, HUBERTMAN Referring Unavailable JARROD, HUBERTMAN Referring Unavailable JARROD, LAPMAN Referring Unavailable JARROD, LAPMAN Referring Unavailable JARROD, LAPMAN Referring Unavailable JARROD, LAPMAN Referring Unavailable JARROD, LAPMAN Attending Unavailable JARROD, LAPMAN Referring Unavailable JARROD, LAPMAN Referring Unavailable JARROD, LAPMAN Referring Unavailable JARROD, LAPMAN Referring Unavailable LARS OLIVAREZ Referring Unavailable JARROD, HUBERTMAN Referring Unavailable MELANIA ALMANZA Admitting Unavailable FRANSISCO ALVARENGA Referring Unavailable FAY FIERRO Attending Unavailable JARROD, HUBERTMAN Referring Unavailable JARROD, HUBERTMAN Referring Unavailable TEENA SUE Attending Unavailable SILVINO HU Referring Unavailable TEENA SUE Referring Unavailable MARY WHIPPLE Referring Unavailable JARROD, LAPMAN Referring Unavailable JARROD, HUBERTMAN Referring Unavailable JARROD, LAPMAN Referring Unavailable JARROD, LAPMAN Referring Unavailable JARROD, LAPMAN Referring Unavailable LATISHA MCKEON Attending Unavailable SILVINO HU Referring Unavailable LATISHA MCKEON Admitting Unavailable LATISHA MCKEON Attending Unavailable JARROD, HUBERTMAN Referring Unavailable JARROD, HUBERTMAN Referring Unavailable JARROD, LAPMAN Referring Unavailable JARROD, LAPMAN Referring Unavailable JARROD, LAPMAN Referring Unavailable JARROD, LAPMAN Referring Unavailable JARROD, LAPMAN Referring Unavailable JARROD, LAPMAN Referring Unavailable JARROD, LAPMAN Referring Unavailable JARROD, LAPMAN Referring Unavailable JARROD, LAPMAN Referring Unavailable JARROD, LAPMAN Referring Unavailable JARROD, LAPMAN Referring Unavailable JARROD, LAPMAN Referring Unavailable JARROD, LAPMAN Referring Unavailable JARROD, LAPMAN Referring Unavailable JARROD, LAPMAN Referring Unavailable JARROD, LAPMAN Referring Unavailable JARROD, LAPMAN Referring Unavailable JARROD, LAPMAN Referring Unavailable MUÑOZKODAK H Referring Unavailable JARROD, LAPMAN Referring Unavailable MUÑOZ, CARRIE Attending Unavailable MUÑOZKODAK H Referring Unavailable JARROD, LAPMAN Referring Unavailable JARROD, LAPMAN Referring Unavailable JARROD, LAPMAN Referring Unavailable JARROD, LAPMAN Referring Unavailable JARROD, LAPMAN Referring Unavailable JARROD, LAPMAN Referring Unavailable JARROD, LAPMAN Referring Unavailable JARROD, LAPMAN Referring Unavailable JARROD, LAPMAN Referring Unavailable JARROD, LAPMAN Referring Unavailable JARROD, LAPMAN Referring Unavailable JARROD, LAPMAN Referring Unavailable JARROD, LAPMAN Attending Unavailable JARROD, LAPMAN Referring Unavailable JARROD, LAPMAN Referring Unavailable JARROD, LAPMAN Referring Unavailable JARROD, LAPMAN Referring Unavailable JARROD, LAPMAN Referring Unavailable JARROD, LAPMAN Referring Unavailable JARROD, LAPMAN Referring Unavailable JARROD, LAPMAN Referring Unavailable JARROD, LAPMAN Referring Unavailable JARROD, LAPMAN Referring Unavailable JARROD, LAPMAN Referring Unavailable JARROD, LAPMAN Referring Unavailable JARROD, LAPMAN Referring Unavailable JARROD, LAPMAN Referring Unavailable JARROD, LAPMAN Referring Unavailable JARROD, LAPMAN Referring Unavailable JARROD, LAPMAN Referring Unavailable JARROD, LAPMAN Referring Unavailable JARROD, LAPMAN Referring Unavailable JARROD, LAPMAN Referring Unavailable PROBLEMS PROBLEMS DATE TYPE CONDITION / CODE ATTENDING STATUS SOURCE Unknown I48.0 - Paroxysmal atrial Kelly, [place] Active [place] 9 fibrillation / Community I48.0(ICD-10) Hospital Repository Unknown 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, [place]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 / Community Z95.0(ICD-10) Hospital Repository Unknown I49.5 - Sick sinus Kelly, [place] Active [place] 9 syndrome / I49.5(ICD-10) [facility] Repository Unknown 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.3 - Typical atrial Kelly, Eddie Active [place] 9 flutter / I48.3(ICD-10) Community Hospital Repository Unknown E78.00 - Pure Kelly, Eddie Active [place] 9 hypercholesterolemia, Community unspecified / Hospital E78.00(ICD-10) Repository Unknown 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, 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 / Community Z95.2(ICD-10) Hospital Repository Unknown Z79.01 - care home Kelly, Eddie Active [place] 8 (current) use of Community 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 / Hospital Z79.01(ICD-10) Repository Active 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) / [facility] Main K75.81(ICD-10) [facility] Rep[facility] Active Unspecified cirrhosis of NA Active [facility] liver / K74.60(ICD-10) [facility] Active 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 / [facility] E11.22(ICD-10) Repository Unknown R09.89 - Other specified Addison Loaiza Active [place] 8 symptoms and signs Community involving the circulatory Hospital and respiratory systems / Repository R09.89(ICD-10) Active Other hypotension / NA Active [facility] I95.89(ICD-10) [facility] Main [facility] Rep[facility] Active Thrombocytopenia, NA Active [facility] unspecified / [facility] Main D69.6(ICD-10) [facility] Repository Active Heart failure, NA Active [facility] unspecified / [facility] I50.9(ICD-10) [facility] Repository Active Encounter for other NA Active [facility] preprocedural examination Clinic [facility] / Z01.818(ICD-10) [facility] Repository Active 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[facility] without complications / [facility] E11.9(ICD-10) [facility] Repository Active care home (current) use NA Active [facility] 8 of insulin / Clinic Main Z79.4(ICD-10) [facility] Repository Active Presence of cardiac NA Active [facility] 8 pacemaker / Z95.0(ICD-10) Clinic Main [facility] Repository Active 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 [facility] 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 / Clinic Main Z79.01(ICD-10) [facility] Repository Active Hypothyroidism, FAY FIERRO Active [place] [facility] unspecified / Clinic Main E03.9(ICD-10) [facility] Repository Active Chronic kidney disease, CASSIDY FIERROER Active [place] 8 stage 3 (moderate) / Clinic Main N18.3(ICD-10) [facility] Repository Active Gastrointestinal FAY FIERRO Active [place] 8 hemorrhage, unspecified / Clinic Main K92.2(ICD-10) [facility] Repository Active Acute gastritis with NA Active [place] 8 bleeding / K29.01(ICD-10) [facility] Repository Active Other correction (current) NA Active [place] 8 drug therapy / Clinic Main Z79.899(ICD-10) [facility] Repository Unknown E78.0 - Pure Kelly, Eddie Active [place] 8 hypercholesterolemia / Community E78.0(ICD-10) Hospital Repository Active Iron deficiency anemia, NA Active [place] [facility] unspecified / Clinic Main D50.9(ICD-10) [facility] Repository Active 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) / D50.0(ICD-10) [facility] Repository Active Hepatomegaly, not NIMO Active [place] 8 elsewhere classified / [facility] Other R16.0(ICD-10) [facility] Repository Admitting Unknown / UNK(Unknown) Elza SUERO Active [place] [address] diagnosis [facility] Repository Active Chronic kidney disease, NA Active [place] 8 unspecified / Clinic Main N18.9(ICD-10) [facility] Repository Active Unknown / UNK(Unknown) NA Active [place] 8 Clinic Main [facility] Repository Active 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 Active [place] 8 disease / D63.1(ICD-10) Clinic Main [facility] Repository PROCEDURES PROCEDURES No Procedure Records FoundRESULTS RESULTS PROTIME W/INR Collected: 08/30/2018 Status: F Source: [place] 9:45 AM [facility] REPOSITORY TYPE CODE TESTS RESULT OUT OF REFERENCE UNITS RANGE LAB L9200.1001 11.9-14.4 SEC High PROTIME ISTAT 21.5 Result Comment: Reference Range 11.9 - 14.4 LAB L9200.2000 Normal INR ISTAT 1.80 Result Comment: Critical Value > 3.5 Performed By: #### L9200.0000 #### [facility] Point of Care [address] [place] [address] [place] ABS GR + CBC Collected: 08/29/2018 Status: F Source: [place] 9:24 AM [facility] REPOSITORY TYPE CODE TESTS RESULT OUT OF REFERENCE UNITS RANGE LAB WWBC 3.70-11.00 k/uL Low [place] WBC 3.05 LAB WRBC 3.90-5.20 m/uL Low [place] RBC 2.95 LAB WHGB 11.5-15.5 g/dL Low [place] Hemoglobin 8.9 LAB WHCT 36.0-46.0 % Low [place] Hematocrit 29.7 LAB WMCV 80.0-100.0 fL [place] High MCV 100.7 LAB WMCH 26.0-34.0 pg [place] MCH 30.2 LAB WMCHC 30.5-36.0 g/dL Low [place] MCHC 30.0 Result Comment: Result checked and verified LAB WRDW 11.5-15.0 % High [place] RDW 16.5 LAB WPLT 150-400 k/uL Low [place] 88 Platelet Cnt LAB WMPV 9.0-12.7 fL [place] MPV 10.1 Result Comment: Test performed at: [facility], [address] [place] [address] Rd., [place] [address]. LAB ABGRAN 1.45-7.50 k/uL Absol Gran 2.48 Count PROTHROMBIN TIME W/INR Collected: 08/26/2018 Status: F Source: [place] 10:49 AM [facility] REPOSITORY TYPE CODE TESTS RESULT OUT OF RANGE REFERENCE UNITS LAB L300.4150 11.7-14.9 SECONDS High PROTIME 31.5 LAB L300.4200 Normal INR 3.0 Performed By: #### L300.3900 #### [facility] [address] [place], [address] [place] ABS GR + CBC Collected: 08/22/2018 Status: F Source: [place] 9:09 AM [facility] REPOSIT[facility] TYPE CODE TESTS RESULT OUT OF REFERENCE UNITS RANGE LAB WWBC 3.70-11.00 k/uL Low [place] WBC 3.21 LAB WRBC 3.90-5.20 m/uL Low [place] RBC 3.06 LAB WHGB 11.5-15.5 g/dL Low [place] Hemoglobin 9.2 LAB WHCT 36.0-46.0 % Low [place] Hematocrit 30.5 LAB WMCV 80.0-100.0 fL [place] MCV 99.7 LAB WMCH 26.0-34.0 pg [place] MCH 30.1 LAB WMCHC 30.5-36.0 g/dL Low [place] MCHC 30.2 LAB WRDW 11.5-15.0 % [place] High RDW 16.1 LAB WPLT 150-400 k/uL Low [place] Platelet Cnt 80 LAB WMPV 9.0-12.7 fL [place] MPV 12.1 Result Comment: Test performed at: [facility], [address] [place] [address] Rd[address] [place] [address]. LAB ABGRAN 1.45-7.50 k/uL Absol Gran 2.69 Count PACEMAKER CHECK Observed: 08/21/2018 Status: F Source: [place] 7:24 AM [facility] REPOSITORY [facility] [address] [place] [address] Pacemaker Check Date of Service: 08/20/18 1256 MR#: [id number] Acct: [id number] Name: EMANI LOUIS Rep #: [id number] : 1940 From: Angélica Dunn Age/Sex: 77/F [place] [facility] [place]: [place] Billing Codes Nurse, Teaching, Wound Ck (no charge): Yes 08/20/18 1259 <Electronically signed by Angélica Dunn > Date Angélica Dunn 08/21/18 0724<Electronically signed by Eddie Mendoza MD> Cosigner Signature: Date (if applicable) Eddie Mendoza MD CC: CHEST PA AND LATERAL Observed: 08/20/2018 Status: F Source: [place] 10:31 AM [facility] REPOSITORY [facility] [address] [place] [address] Chest PA and Lateral MR#: [id number] Acct: [id number] Name: EMANI LOUIS Rep #: [id number] : 1940 F 77 From: Aneudy Hernandez MD PCP: Kodak Muñoz MD [place] [facility] [place]: Chest PA and Lateral Date of Exam: 08/20/18 Exam# [id number] Ordering Dr: Eddie Mendoza MD STUDY: X-RAY CHEST REASON FOR EXAM: Female, 77 years old. Preoperative, PPM generator change. TECHNIQUE: PA and lateral chest COMPARISON: 05/24/2017 FINDINGS: Left pectoral dual-lead pacer device. Median sternotomy, mitral annuloplasty. Moderate right pleural effusion, prominent right lung base atelectasis, stable features compared to imaging of 05/24/2017. Right upper lung clear. Left lung clear. Background features of COPD/emphysema. Mild cardiomegaly. Normal mediastinal silhouette. No acute osseous or upper abdominal process. RAD/Chest PA and Lateral IMPRESSION: Stable features of the right lower lung, moderate effusion, basilar atelectasis. The lung has the same features on prior imaging as far back as May 2017. Likely a chronic loculated pleural effusion. Electronically Signed: Aneudy Hernandez MD at 12:06 EST Tel , Service support , CC: Eddie Mendoza MD; Kodak Muñoz MD Iv Technician: Signed URINALYSIS, COMPLETE Collected: 08/20/2018 Status: F Source: [place] 10:19 AM [facility] REPOSITORY Order Comment: How was Urine Obtained? 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 DIPSTX 1.015 LAB L400.3550 5.0 - 8.0 pH UR Normal 5.0 LAB L400.3600 Negative mg/dl PROT Normal DIPSTX Negative LAB L400.3700 Normal mg/dl Normal UROBILI Normal LAB L400.3750 Negative Normal NITRITE UR Negative LAB L400.3780 Negative /ul Normal OCCULT BLOOD-UR Negative LAB L400.3800 Negative /ul High LEUK ESTERASE 500 LAB L400.4050 0-5 /hpf WBC Normal 0-5 SEEN LAB L400.4100 0-5 /hpf 0 Normal RBC-UA SEEN LAB L400.4150 5-10 /hpf SQUAM Normal EPI 0-5 SEEN LAB L400.4300 None Seen /hpf 0 Normal BACTERIA SEEN LAB L400.4350 <or=2+ /hpf 0 Normal MUCUS, URINE SEEN Performed By: #### L400.0001 #### [facility] [address] [place], [place], [address] CBC-COMPLETE BLOOD CNT Collected: 08/20/2018 Status: F Source: [place] NO DIFF 10:19 AM [facility] REPOSITORY TYPE CODE TESTS RESULT OUT OF RANGE REFERENCE UNITS LAB L100.1000 4.4-11.0 K/mm3 Low WBC 3.6 LAB L100.1200 4.2-5.4 M/mm3 Low RBC 3.29 LAB L100.1300 12.0-15.0 g/dl Low HGB 9.8 LAB L100.1400 37-47 % Low HCT 32.2 LAB L100.1500 81-99 fL Normal MCV 97.9 LAB L100.1600 27.0-32.0 pg Normal MCH 29.8 LAB L100.1700 32-36 g/gl Low MCHC 30.4 LAB L100.1810 11.6-14.6 % High RDW CV 16.1 LAB L100.1820 35.1-43.9 fl High RDW SD 57.7 LAB L100.1900 150-450 K/mm3 Low PLT 79 LAB L100.2000 6.2-12.0 fl Normal MPV 11.8 Performed By: #### L100.0500 #### [facility] [address] [place], [address] PROTHROMBIN TIME W/INR Collected: 08/20/2018 Status: F Source: [place] 10:19 AM [facility] REPOSITORY TYPE CODE TESTS RESULT OUT OF REFERENCE UNITS RANGE LAB L300.4150 11.7-14.9 SECONDS High PROTIME 37.0 LAB L300.4200 High alert INR 3.7 Result Comment: CRITICAL VALUE VERIFIED. CALLED TO [facility] 08/20/18 Kristi3 Elisabet Cabral. RESULTS READ BACK BY SAME . Performed By: #### L300.3900 #### [facility] [address] [place], [place], [address] BASIC METABOLIC Collected: 08/20/2018 Status: F Source: [place] PROFILE (BMP) 10:19 AM [facility] REPOSITORY TYPE CODE TESTS RESULT OUT OF RANGE REFERENCE UNITS LAB L501.0100 74-106 mg/dL High GLU 132 Result Comment: Fasting Glucose result greater than or equal to 126 mg/dL suggests DIABETES MELLITUS per A.D.A. criteria. Please note revised GLUCOSE reference range effective 2017. LAB L501.1000 7-18 mg/dL Normal BUN 18 LAB L501.1100 0.55-1.02 mg/dL High CREAT,SERUM 1.58 Result Comment: The validity of the calculated GFR AND GFRAA in patients over 70 years has not been determined. Clinical correlation is essential. LAB L501.1110 >60 mL/min Low EST GFR 34 Result Comment: Non- GFR Calc LAB L501.1115 >60 mL/min Low EST GFR - AA 41 Result Comment: GFR Calc LAB L501.1300 10-20 RATIO Normal BUN/CRE 11.4 LAB L501.2200 8.5-10.1 mg/dL Low CA 8.3 LAB L501.5300 136-145 mmol/L NA Normal 141 LAB L501.5600 3.5-5.1 mmol/L K Normal 4.6 LAB L501.5900 98-107 mmol/L High CL 111 LAB L501.6100 21.0-32.0 mmol/L Normal CO2 26.0 LAB L501.6200 5-15 Low GAP 4 Performed By: #### L500.2500 #### [facility] [address] [place], [address] CARDIOLOGY VISIT Observed: 08/20/2018 Status: F Source: [place] REPORT 9:44 AM [facility] REPOSITORY [facility] [address] [place] [address] OFFICE VISIT Date of Service: 08/20/18 MR#: [id number] Acct: [id number] Name: EMANI LOUIS Rep #: [id number] : 1940 Provider: Eddie Mendoza MD Age/Sex: 77/F Location: [facility] [place] [place] Status: Signed HPI HPI Chief Complaint: Preop evaluation for pacemaker generator change Details: EMANI LOUIS, is a 77 F who presents to the office today for a follow-up visit as well as preoperative cardiac visit.. She is a lady with a history of coronary artery disease, mitral valve disease status post replacement with a [address] Alex[employer] Medtronic mechanical valve. She also has a history of chronic persistent atrial fibrillation and repeated anemias for which she is receiving recurrent blood transfusions as well as evaluations. You do remember that in November 2017 she had capsule endoscopy which demonstrated nonbleeding duodenal angina ectasia, she also had diverticulosis of the sigmoid colon which was treated with argon plasma coagulation. In 2016 she had had a GI radionuclide scan which demonstrated no focal areas, in October 2016 she had an EGD which demonstrated normal esophagus stomach and duodenum. She was recently in the emergency room where she was noted to have a hemoglobin of 4.5, an INR of 19 and she was treated with fluid boluses packed red blood cell transfusion and transferred to [facility]. She did apparently undergo a double balloon enteroscopy in 2018. As part of her workup she also had a transthoracic echo in December 2017 which demonstrated the left ventricular size being small estimated ejection fraction of 58%. The right ventricle was dilated with pacer wires noted in the right ventricle and the right ventricular systolic pressure was estimated at 73 mmHg consistent with moderately severe pulmonary hypertension. The left atrium was moderately dilated the mitral valve had a peak gradient of 25 mmHg and a mean gradient of 12 mmHg. She returns today for follow-up visit and says that she is overall doing well, she has had some dizziness as well as some shortness of breath and unfortunately she continues to abuse tobacco products. She had her pacemaker interrogated and it is at end of life and she does need her pacemaker generator changed out. Her physical exam today demonstrates clear lung choudhury crisp prosthetic heart sounds and no pedal edema. Intake Vital Signs08/20/18 Height 5 ft 2 in 08/20/18 Weight: 136 lb 08/20/18 Body Mass Index (BMI) 24.8 08/20/18 Blood Pressure 60/42 L L 08/20/18 Blood Pressure Location Lt brachial Intake Visit Reasons: 4 M FU Lay Out Helper Required: No Accompanied by: none Is patient in pain?: No Allergies amiodarone Adverse Reaction (Verified 08/20/18 09:22) vomiting, poor balance, dizziness digoxin Adverse Reaction (Verified 08/20/18 09:22) nausea, dry heaves lorazepam [From Ativan] Adverse Reaction (Verified 08/20/18 09:22) Unknown meloxicam [From Mobic] Adverse Reaction (Verified 08/20/18 09:22) Unknown nortriptyline HCl [From Pamelor] Adverse Reaction (Verified 08/20/18 09:22) Unknown zolpidem tartrate [From Ambien] Adverse Reaction (Verified 08/20/18 09:22) Unknown Medications Atorvastatin Calcium [Lipitor] 20 mg PO QHS 05/22/13 [History Confirmed 08/20/18] Cholecalciferol (Vitamin D3) [Vitamin D] 1 cap PO DAILY 05/22/13 [History Confirmed 08/20/18] Levothyroxine [Synthroid] 50 mcg PO DAILY 04/01/15 [History Confirmed 08/20/18] Albuterol Inhaler [Ventolin Hfa] 2 puff INHALATION Q6H PRN PRN 04/02/15 [History Confirmed 08/20/18] Ferrous Sulfate 325 mg PO TID 04/02/15 [History Confirmed 08/20/18] Hydrocodone/Acetaminophen [Hydrocodone-Acetamin 5-325 mg] 0.5 tab PO Q8H PRN PRN 04/02/15 [History Confirmed 08/20/18] Insulin Lispro [Humalog KwikPen] 0 unit SQ BIDCM 04/02/15 [History Confirmed 08/20/18] Folic Acid 1 mg PO DAILY@0800 04/30/15 [History Confirmed 08/20/18] Insulin Glargine [Lantus SoloStar Pen] 35 - 45 units SC QHS 04/30/15 [History Confirmed 08/20/18] Tiotropium [place] [Spiriva 18 MCG] 2 puff INHALATION DAILY PRN 06/03/15 [History Confirmed 08/20/18] Cyanocobalamin (Vitamin B-12) [Vitamin B12] 2,500 mcg PO DAILY 06/10/16 [History Confirmed 08/20/18] Docusate Sodium [Colace] 200 mg PO BID PRN PRN 09/08/16 [History Confirmed 08/20/18] Fluticasone 0.05% [Flonase Nasal [place]] 2 spray NASAL DAILY PRN 09/08/16 [History Confirmed 08/20/18] Trazodone HCl 50 mg PO QHS PRN 03/16/17 [History Confirmed 08/20/18] Venlafaxine HCl [Effexor] 37.5 mg PO BID 03/30/17 [History Confirmed 08/20/18] Magnesium 250 mg PO DAILY 05/24/17 [History Confirmed 08/20/18] pantoprazole 40 mg tablet,delayed release 40 mg PO BID 30 Days #60 tab 11/23/17 [History Confirmed 08/20/18] umeclidinium 62.5 mcg-vilanterol 25 mcg/actuation powdr for inhalation 1 inh INHALATION Q24H 11/27/17 [History Confirmed 08/20/18] potassium chloride ER 20 mEq tablet,extended release(part/cryst) 20 meq PO DAILY #90 tab 01/24/18 [Rx Confirmed 08/20/18] furosemide 20 mg tablet 20 mg PO .qod tab 04/09/18 [History Confirmed 08/20/18] warfarin 2 mg tablet 2 mg PO .COMPLEX 04/25/18 [History Confirmed 08/20/18] warfarin 2.5 mg tablet 2.5 mg PO .COMPLEX 04/25/18 [History Confirmed 08/20/18] [facility] Medical History Tachycardia-bradycardia syndrome (Chronic) Typical atrial flutter (Chronic) Hypotension (Chronic) Secondary pulmonary hypertension (Chronic) Carotid bruit (Chronic) COPD (chronic obstructive pulmonary disease) (Chronic) Paroxysmal atrial fibrillation (Chronic) Sick sinus syndrome (Chronic) care home current use of anticoagulant (Chronic) Acquired thrombocytopenia (Chronic) Type II diabetes mellitus (Chronic) History of hypothyroidism (Chronic) HLD (hyperlipidemia) (Chronic) Ascites (Chronic) GERD (gastroesophageal reflux disease) (Chronic) Pericardial effusion (Chronic) Pleural effusion (Chronic) PVC's (premature ventricular contractions) (Inactive) Pleural effusion, not elsewhere classified (Inactive) Surgical History Cardiac pacemaker in situ (Chronic) History of mitral valve replacement with mechanical valve (Resolved) History of incision of pericardium (Chronic) Family History Mother Cancer lung and renal Social History Smoking Status: Current every day smoker alcohol intake: never substance use type: does not use caffeine: Yes Type: carbonated beverages what type of physical activity do you participate in: none seatbelt use: always do you feel safe at home: Yes ROS Const Const: Negative for fatigue, weakness, night sweats, excessive sweating, frequent falls, headache(s) or daytime sleepiness Eyes Eyes: Negative for loss of peripheral vision, transient loss of vision, blind spots, double vision or blurry vision ENT ENT: Negative for headache(s), dizziness, balance problems, Nosebleed/epistaxis, tongue swelling or lip swelling Cardio Chest Pain: No Palpitations: No Edema: None Muscle aches with walking: None Resp Respiratory: Negative for SOB at rest, SOB orthopnea\SOB lying down, Cough, paroxysmal nocturnal dyspnea or SOB with activity GI GI: Negative nausea, vomiting, heartburn, black,tarry stools or bright, red blood in stools : Negative for hematuria Musc Musc: Negative for balance problems, muscle aches/ myalgia, muscle weakness or joint pain Skin Skin: Negative non-healing lesions, unusual bruising or rash Neuro Neuro: Negative for weakness, frequent falls, headache(s), double vision, dizziness, lightheadedness, orthostatic symptoms, blurry vision or lack of coordination [place] Hematologic/Lymphatic: Negative for easy bruising or easy bleeding Endo Endo: Negative for fatigue, excessive sweating, cold intolerance, heat intolerance, increased thirst/drinking or hair loss Psych Psych: Negative for anxiety or depression Allergy Allergy/Immunology: Negative for throat swelling, Negative for tongue swelling, Negative for hives, Negative for rash, Negative for lip swelling Cardiology Exam Const Appearance: cooperative, healthy appearing, well developed, well groomed and no acute distress Nutritional Appearance: well nourished and average body habitus Orientation: alert, awake and oriented x3 Head Head: normal to inspection, normocephalic and atraumatic Ears: hearing grossly normal bilaterally and external ears normal Nose: external nose normal, nasal mucous membranes and turbinates normal, nares normal, septum normal, no nasal discharge Face and Sinus: face symmetric Mouth: oral mucosae normal, tongue normal, oropharynx normal and moist mucous membranes Teeth and gingiva: dentition normal Throat: posterior oropharynx normal, tonsils normal and uvula midline Eyes General: appearance normal, both eyes and all related structures Eyelids: eyelids normal Conjunctivae: conjunctivae normal Pupils: PERRL, normal by confrontation and accommodation normal EOM: EOM intact bilaterally Neck Neck: normal visual inspection, trachea midline and no JVD JVD: +5 Carotids: normal carotid upstroke and bounding pulses Chest Chest inspection: normal inspection of the chest, symmetric chest movement and normal respiratory effort Auscultation: Bilateral: Clear to Auscultation Cardio Palpation: normal PMI Heart sounds: crisp prosthetic S1 and crisp prosthetic S2 GI GI: normal to inspection, soft, no hepatosplenomegaly and bowel sounds present Neuro General: alert, awake, oriented x3, no focal sensory deficit, gait normal and moves all extremities Skin Skin: no rashes or lesions noted Extremities Pulses: Normal: Right Femoral Pulse, Left Femoral Pulse, Right Dorsalis Pedis Pulse, Left Dorsalis Pedis Pulse, Right Posterior Tibial Pulse, Left Posterior Tibial Pulse, Right Radial Pulse, Left Radial Pulse Lower Extremity Edema: None: Bilateral Musculoskel Musculoskeletal: No joint tenderness Psych Psychological: normal affect Assessment AND Plan 1. Cardiac pacemaker in situ Z95.0 Plan She is status post permanent pacemaker implantation. Her pacemaker generator check demonstrates that she is in atrial fibrillation most of the time. My recommendation would be there for to cap off the atrial lead and change the ventricular lead. The risk benefits alternatives have been explained to her she understands and agrees to proceed she was stopped the Coumadin 2 days prior to the surgery. 2. Pure hypercholesterolemia E78.00 Plan She does have a history of hyperlipidemia. She will continue with her current medical therapy otherwise. 3. Paroxysmal atrial fibrillation I48.0 Plan She does have a history of paroxysmal atrial fibrillation which is now become chronic. Due to her valve will continue to maintain her INR between 2.5 and 3.5. Orders Orders: 4. Tachycardia-bradycardia syndrome I49.5 Plan She does have a history of tachybradycardia syndrome. It appears to be more now in chronic persistent atrial fibrillation. 5. History of mitral valve replacement with mechanical valve Z95.2 #[address] Alex mechanical valve Plan She does have a history of mitral valve replacement. Her last echocardiogram had demonstrated that her mitral valve was functioning well as demonstrated in the HPI. The plan will be to continue the same without as making any changes. Plan Detail Follow Up 4 Months (mmm) Coding Level of Care Code Off vis,est,level 4 Diagnoses Cardiac pacemaker in situ Z95.0 Pure hypercholesterolemia E78.00 Hyperlipidemia type: pure hypercholesterolemia Paroxysmal atrial fibrillation I48.0 Tachycardia-bradycardia syndrome I49.5 History of mitral valve replacement with mechanical valve Z95.2 Coding Level of Care Code Off vis,est,level 4 Diagnoses Cardiac pacemaker in situ Z95.0 Pure hypercholesterolemia E78.00 Hyperlipidemia type: pure hypercholesterolemia Paroxysmal atrial fibrillation I48.0 Tachycardia-bradycardia syndrome I49.5 History of mitral valve replacement with mechanical valve Z95.2 Supplemental Info Supplemental Information Diagnostics Pacemaker Check 08/16/18 08/20/18 0944 <Electronically signed by Eddie Mendoza MD> Date Eddie Mendoza MD Cosigner Signature: Date (if applicable) CC: Kodak Muñoz MD PACEMAKER CHECK Observed: 08/19/2018 Status: F Source: [place] 6:43 AM [facility] REPOSITORY [facility] [address] [place] [address] Pacemaker Check Date of Service: 08/16/181427 MR#: [id number] Acct: [id number] Name: EMANI LOUIS Rep #: [id number] : 1940 From: Angélica Dnun Age/Sex: 77/F [place] [facility] [place]: Signed Billing Codes PM Device Codes: PM Dev Prog Eval, Dual 08/16/181428 <Electronically signed by Angélica Dunn > Date Angélica Dunn 08/19/18 0643<Electronically signed by Eddie Mendoza MD> Cosigner Signature: Date (if applicable) Eddie Mendoza MD CC: PROTHROMBIN TIME W/INR Collected: 08/15/2018 Status: F Source: [place] 2:27 PM [facility] REPOSITORY TYPE CODE TESTS RESULT OUT OF RANGE REFERENCE UNITS LAB L300.4150 11.7-14.9 SECONDS High PROTIME 28.0 LAB L300.4200 Normal INR 2.6 Performed By: #### L300.3900 #### [facility] [place], [address] IRON AND TIBC Collected: 08/15/2018 Status: F Source: VO 10:03 AM [facility] REPOSITORY TYPE CODE TESTS RESULT OUT OF REFERENCE UNITS RANGE LAB IRN 41-186 ug/dL Iron 49 LAB TIBC 232-386 ug/dL Low TIBC 224 LAB SAT 15-57 % Transferrin Saturatn 22 Performed By: #### IRON #### [facility] [address] [place], [place] [address] [place] ABS GR + CBC Collected: 08/15/2018 Status: F Source: [place] 10:02 AM [facility] REPOSITORY TYPE CODE TESTS RESULT OUT OF REFERENCE UNITS RANGE LAB WWBC 3.70-11.00 k/uL Low [place] WBC 3.25 LAB WRBC 3.90-5.20 m/uL Low [place] RBC 3.34 LAB WHGB 11.5-15.5 g/dL Low [place] Hemoglobin 10.1 LAB WHCT 36.0-46.0 % Low [place] Hematocrit 33.3 LAB WMCV 80.0-100.0 fL [place] MCV 99.7 LAB WMCH 26.0-34.0 pg [place] MCH 30.2 LAB WMCHC 30.5-36.0 g/dL Low [place] MCHC 30.3 LAB WRDW 11.5-15.0 % [place] High RDW 16.9 LAB WPLT 150-400 k/uL Low [place] Platelet Cnt 67 LAB WMPV 9.0-12.7 fL [place] MPV 11.0 Result Comment: Test performed at: [facility], [address] [place] [address]., [place] [address]. LAB ABGRAN 1.45-7.50 k/uL Absol Gran 2.65 Count [place] ABS GR + CBC Collected: 08/08/2018 Status: F Source: [place] 9:29 AM [facility] REPOSITORY TYPE CODE TESTS RESULT OUT OF REFERENCE UNITS RANGE LAB WWBC 3.70-11.00 k/uL Low [place] WBC 3.32 LAB WRBC 3.90-5.20 m/uL Low [place] RBC 2.83 LAB WHGB 11.5-15.5 g/dL Low [place] Hemoglobin 8.6 LAB WHCT 36.0-46.0 % Low [place] Hematocrit 29.0 LAB WMCV 80.0-100.0 fL [place] High MCV 102.5 LAB WMCH 26.0-34.0 pg [place] MCH 30.4 LAB WMCHC 30.5-36.0 g/dL Low [place] MCHC 29.7 LAB WRDW 11.5-15.0 % [place] High RDW 18.0 LAB WPLT 150-400 k/uL Low [place] Platelet Cnt 85 LAB WMPV 9.0-12.7 fL [place] MPV 11.3 Result Comment: Test performed at: [facility] [place], [address] [place] [address]. LAB ABGRAN 1.45-7.50 k/uL Absol 2.75 Gran Count LAB ABSNUC <0.01 k/uL Absolute nRBC Result checked and verified TYPE AND SCREEN Collected: 08/08/2018 Status: F Source: [place] 9:25 AM [facility] REPOSITORY Order Comment: PRETRANSFUSION HGB = 8.6 HCT = 29.0 PERFORMED AT [facility] CMV NEG?* N Give When? 08/09/18 09:00 Irradiated? N Leukodepleted? Y Reason for Type AND Screen/Red Cells: ANEMIA TYPE CODE TESTS RESULT OUT OF RANGE REFERENCE UNITS LAB B10.0800 A Normal BLOOD TYPE GEL POSITIVE LAB B100.4000 Normal Antibody NEGATIVE Screen Performed By: #### B101.7450 #### [facility] [address] [place], [address] RC Collected: 08/08/2018 Status: F Source: [place] 9:25 AM [facility] REPOSITORY TYPE CODE TESTS RESULT OUT OF REFERENCE UNITS RANGE LAB U100.0000 [id number] TRANSFUSED PRODUCT: T AND S with Crossmatch, Red Cells COUNT: 2 Performed By: #### U100.0000 #### [facility] - refer to report for specific site PROTHROMBIN TIME W/INR Collected: 08/01/2018 Status: F Source: [place] 10:22 AM [facility] REPOSITORY TYPE CODE TESTS RESULT OUT OF RANGE REFERENCE UNITS LAB L300.4150 11.7-14.9 SECONDS High PROTIME 26.6 LAB L300.4200 Normal INR 2.4 Performed By: #### L300.3900 #### [facility] [address] [place], [address] [place] ABS GR + CBC Collected: 08/01/2018 Status: F Source: [place] 9:18 AM [facility] REPOSITORY TYPE CODE TESTS RESULT OUT OF REFERENCE UNITS RANGE LAB WWBC 3.70-11.00 k/uL Low [place] WBC 3.04 LAB WRBC 3.90-5.20 m/uL Low [place] RBC 3.03 LAB WHGB 11.5-15.5 g/dL Low [place] Hemoglobin 9.1 LAB WHCT 36.0-46.0 % Low [place] Hematocrit 29.9 LAB WMCV 80.0-100.0 fL [place] MCV 98.7 LAB WMCH 26.0-34.0 pg [place] MCH 30.0 LAB WMCHC 30.5-36.0 g/dL Low [place] MCHC 30.4 LAB WRDW 11.5-15.0 % [place] High RDW 17.5 LAB WPLT 150-400 k/uL Low [place] Platelet Cnt 86 LAB WMPV 9.0-12.7 fL [place] MPV 10.9 Result Comment: Test performed at: [address] [place] [address]. LAB ABGRAN 1.45-7.50 k/uL Absol Gran 2.49 Count [place] ABS GR + CBC Collected: 07/25/2018 Status: F Source: [place] 8:32 AM [facility] REPOSITORY TYPE CODE TESTS RESULT OUT OF REFERENCE UNITS RANGE LAB WWBC 3.70-11.00 k/uL Low [place] WBC 3.15 LAB WRBC 3.90-5.20 m/uL Low [place] RBC 2.75 LAB WHGB 11.5-15.5 g/dL Low [place] Hemoglobin 8.1 LAB WHCT 36.0-46.0 % Low [place] Hematocrit 27.0 LAB WMCV 80.0-100.0 fL [place] MCV 98.2 LAB WMCH 26.0-34.0 pg [place] MCH 29.5 LAB WMCHC 30.5-36.0 g/dL Low [place] MCHC 30.0 Result Comment: Result checked and verified LAB WRDW 11.5-15.0 % High [place] RDW 18.0 LAB WPLT 150-400 k/uL Low [place] 68 Platelet Cnt LAB WMPV 9.0-12.7 fL [place] MPV 11.9 Result Comment: Test performed at: [address] [place] [address]. LAB ABGRAN 1.45-7.50 k/uL Absol Gran 2.50 Count TYPE AND SCREEN Collected: 07/25/2018 Status: F Source: [place] 8:20 AM [facility] REPOSITORY Order Comment: PRETRANSFUSION HGB = 8.1 HCT = 27.0 PERFORMED AT [facility] CMV NEG?* N Give When? 07/26/18 0900 Irradiated? N Leukodepleted? Y Reason for Type AND Screen/Red Cells: ANEMIA TYPE CODE TESTS RESULT OUT OF RANGE REFERENCE UNITS LAB B10.0800 A Normal BLOOD TYPE GEL POSITIVE LAB B100.4000 Normal Antibody NEGATIVE Screen Performed By: #### B101.7450 #### [facility] [address] [place], [address] RC Collected: 07/25/2018 Status: F Source: [place] 8:20 AM [facility] REPOSITORY TYPE CODE TESTS RESULT OUT OF REFERENCE UNITS RANGE LAB U100.0000 [id number] TRANSFUSED PRODUCT: T AND S with Crossmatch, Red Cells COUNT: 2 Performed By: #### U100.0000 #### [facility] - refer to report for specific site PROTHROMBIN TIME W/INR Collected: 07/22/2018 Status: F Source: [place] 11:47 AM [facility] REPOSITORY TYPE CODE TESTS RESULT OUT OF RANGE REFERENCE UNITS LAB L300.4150 11.7-14.9 SECONDS High PROTIME 32.0 LAB L300.4200 Normal INR 3.1 Performed By: #### L300.3900 #### [facility] [address] [place], [address] TYPE AND SCREEN Collected: 07/18/2018 Status: F Source: [place] 8:06 AM [facility] REPOSITORY Order Comment: PRETRANSFUSION HGB = 8.0 HCT = 26.6 PERFORMED AT [facility] CMV NEG?* N Give When? 07/19/18 @ 0830 Irradiated? N Leukodepleted? Y Reason for Type AND Screen/Red Cells: ANEMIA TYPE CODE TESTS RESULT OUT OF RANGE REFERENCE UNITS LAB B10.0800 A Normal BLOOD TYPE GEL POSITIVE LAB B100.4000 Normal Antibody NEGATIVE Screen Performed By: #### B101.7450 #### [facility] [address] [place], [address] Collected: 07/18/2018 Status: F Source: [place] 8:06 [facility] REPOSITORY TYPE CODE TESTS RESULT OUT OF REFERENCE UNITS RANGE LAB U100.0000 [id number] TRANSFUSED PRODUCT: T AND S with Crossmatch, Red Cells COUNT: 2 Performed By: #### U100.0000 #### [facility] - refer to report for specific site MARYBETH ABS GR + CBC Collected: 07/18/2018 Status: F Source: [place] 8:06 AM [facility] REPOSITORY TYPE CODE TESTS RESULT OUT OF REFERENCE UNITS RANGE LAB WWBC 3.70-11.00 k/uL [place] WBC 4.09 LAB WRBC 3.90-5.20 m/uL Low [place] RBC 2.73 LAB WHGB 11.5-15.5 g/dL Low [place] Hemoglobin 8.0 LAB WHCT 36.0-46.0 % Low [place]beth Hematocrit 26.6 LAB WMCV 80.0-100.0 fL [place] MCV 97.4 LAB WMCH 26.0-34.0 pg [place] MCH 29.3 LAB WMCHC 30.5-36.0 g/dL Low [place] MCHC 30.1 LAB WRDW 11.5-15.0 % Marybeth High RDW 19.0 LAB WPLT 150-400 k/uL Low [place] Platelet Cnt 122 LAB WMPV 9.0-12.7 fL [place] MPV 10.9 Result Comment: Test performed at: [facility], [address] [place] [address] Rd., [place] [address]. LAB ABGRAN 1.45-7.50 k/uL Absol Gran 3.39 Count MARYBETH ABS GR + CBC Collected: 07/11/2018 Status: F Source: [place] 10:15 AM [facility] REPOSITORY TYPE CODE TESTS RESULT OUT OF REFERENCE UNITS RANGE LAB WWBC 3.70-11.00 k/uL [place] WBC 4.00 LAB WRBC 3.90-5.20 m/uL Low [place] RBC 3.36 LAB WHGB 11.5-15.5 g/dL Low [place] Hemoglobin 9.6 LAB WHCT 36.0-46.0 % Low [place] Hematocrit 31.6 LAB WMCV 80.0-100.0 fL [place] MCV 94.0 LAB WMCH 26.0-34.0 pg [place] MCH 28.6 LAB WMCHC 30.5-36.0 g/dL Low [place] MCHC 30.4 LAB WRDW 11.5-15.0 % [place] High RDW 16.8 LAB WPLT 150-400 k/uL Low [place] Platelet Cnt 110 LAB WMPV 9.0-12.7 fL [place] MPV 11.2 Result Comment: Test performed at: [address] [place] [address]. LAB ABGRAN 1.45-7.50 k/uL Absol Gran 3.45 Count PROTHROMBIN TIME W/INR Collected: 07/08/2018 Status: F Source: [place] 10:48 AM [facility] REPOSITORY TYPE CODE TESTS RESULT OUT OF RANGE REFERENCE UNITS LAB L300.4150 11.7-14.9 SECONDS High PROTIME 30.6 LAB L300.4200 Normal INR 2.9 Performed By: #### L300.3900 #### [facility] [address] [place], [address] [place] ABS GR + CBC Collected: 07/05/2018 Status: F Source: [place] 9:44 AM [facility] REPOSITORY TYPE CODE TESTS RESULT OUT OF REFERENCE UNITS RANGE LAB WWBC 3.70-11.00 k/uL [place] WBC 5.04 LAB WRBC 3.90-5.20 m/uL Low [place] RBC 2.76 LAB WHGB 11.5-15.5 g/dL Low [place] Hemoglobin 8.0 LAB WHCT 36.0-46.0 % Low [place] Hematocrit 26.8 LAB WMCV 80.0-100.0 fL [place] MCV 97.1 LAB WMCH 26.0-34.0 pg [place] MCH 29.0 LAB WMCHC 30.5-36.0 g/dL Low [place] MCHC 29.9 Result Comment: Result checked and verified LAB WRDW 11.5-15.0 % High [place] RDW 16.1 LAB WPLT 150-400 k/uL Low Marybeth 100 Platelet Cnt LAB WMPV 9.0-12.7 fL [place] MPV 11.2 Result Comment: Test performed at: [place] [address] [place] [address]. LAB ABGRAN 1.45-7.50 k/uL Absol Gran 4.25 Count TYPE AND SCREEN Collected: 07/05/2018 Status: F Source: [place] 9:40 AM [facility] REPOSITORY Order Comment: PRETRANSFUSION HGB = 8 HCT = 26.8 PERFORMED AT [facility] CMV NEG?* N Give When? 07/06 @0900 Irradiated? N Leukodepleted? Y Reason for Type AND Screen/Red Cells: ANEMIA TYPE CODE TESTS RESULT OUT OF RANGE REFERENCE UNITS LAB B10.0800 A Normal BLOOD TYPE GEL POSITIVE LAB B100.4000 Normal Antibody NEGATIVE Screen Performed By: #### B101.7450 #### [facility] [address] [place], [address] RC Collected: 07/05/2018 Status: F Source: [place] 9:40 AM [facility] REPOSITORY TYPE CODE TESTS RESULT OUT OF REFERENCE UNITS RANGE LAB U100.0000 [id number] TRANSFUSED PRODUCT: T AND S with Crossmatch, Red Cells COUNT: 2 Performed By: #### U100.0000 #### [facility] - refer to report for specific site PROTHROMBIN TIME W/INR Collected: 07/01/2018 Status: F Source: [place] 10:25 AM [facility] REPOSITORY TYPE CODE TESTS RESULT OUT OF REFERENCE UNITS RANGE LAB L300.4150 11.7-14.9 SECONDS High PROTIME 35.0 LAB L300.4200 High alert INR 3.5 Result Comment: CRITICAL VALUE VERIFIED. CALLED TO ZIYAD AT 'S OFFICE. 07/01/18 1156 Hair Mann. RESULTS READ BACK BY SAME. Performed By: #### L300.3900 #### [facility] [address] [place], [address] CNOVSP Observed: 06/27/2018 Status: COMPLETED Source: [place] 9:50 AM [facility] REPOSITORY Visit (SP) Office (HEMAWS) EMANI LOUIS ([id number]) 1940 F Date Time Provider Department 06/27/18 9:50 AM YARA GARAY During your visit today, we recorded the following information about you: Temperature Pulse Blood pressure Weight 97.8 degrees 106/minute 52/33 60.8 kg Yara Garay MD 06/27/2018 4:44 PM Signed PATIENT NAME: Emani Louis. CLINIC NO: [id number]. ATTENDING PHYSICIAN: Yara Garay MD. DATE OF SERVICE:06/27/2018 ? DIAGNOSIS: Anemia of chronic disease secondary to stage 3 chronic renal failure and PAN cirrhosis. Secondary thrombocytopeina; Iron deficiency secondary to chronic GI bleeding AND Coumadin therapy. ? HPI: ?Mrs. Louis is a 77-year-old white female with anemia chronic disease on iron and Aranesp injection for treatment of her anemia?secondary to chronic renal failure. 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 She is on Coumadin for mechanical prosthetic mitral valve. She also has chronic asymptomatic hypotension, congestive heart failure and respiratory failure on chronic oxygen. ?? Patient has a previous GI evaluation which showed no source of active bleeding ?? Interim history:?Mrs. Louis was transfused multiple times since her last visit,?almost every 2- 3?weeks. Patient is?on Coumadin because of mechanical prosthetic mitral valve replacement.?Her PT/?INR is kept about 3 - 4 by cardiology ?Patient has moderate fatigue?because of anemia. She also has?chronically hypotensive,?she has no?dizziness and lightheadedness. She it is?on Aranesp injection in between blood transfusion for her anemia, in addition to IV iron. ?? Small bowel endoscopy in January showed: - The examined portion of the ileum was normal. ? - Moderate diverticulosis in the sigmoid colon, in ? the descending colon and in the transverse colon. ? There was no evidence of diverticular bleeding. ? All medications AND allergies updated and reviewed by me. ? REVIEW OF SYSTEMS: ? CONSTITUTIONAL: ?No fevers, chills, nightsweats, unintended weight loss HEENT: ?Denies frequent or severe heaches, nasal congestion/sinus symptoms, problematic allergy problems. EYES: ?No diplopia or blurry vision. CARDIOVASCULAR: ?No chest pain, + dyspnea?with exertion, palpitations, orthopnea, PND, ankle edema. PULM: ?No dyspnea, unexplained cough. GI: ?No dysphagia/odynophagia, problematic reflux, constipation, diarrhea, changes in stool habits, hematochezia, melena. : ?No new urinary complaints, including dysuria, gross hematuria or pyuria. NEURO: ?No new balance problems, peripheral weakness/paresthesias or numbness of concern. MUSC-SKEL: ?No new joint pain, swelling, or erythema. PSY: ?No concerns regarding depression, anxiety or panic. INTEGUMENTARY: ?No new skin changes (rash, new or changing mole, new growth) ? PHYSICAL EXAMINATION: 77-year-old female appeared to be no acute distressed BP 52/33[Right Arm[ Pulse 106 Temp (Src) 97.8 (Temporal Artery) Wt 134 lb (60.8kg) HEENT: Head is normocephalic, atraumatic. Sclerae white, conjunctivae pink. PEERL. EOMs are intact. Oropharynx is benign.?Complexion pale LYMPHATICS: There is no palpable adenopathy in the neck, supraclavicular region, axillae, or groin. LUNGS: Lungs are clear to percussion and auscultation. HEART: Heart is regular?with a 2/6 systolic?murmurs, + prosthetic mitral clicks no gallops, or rubs. ABDOMEN: Soft and nontender without organomegaly. No masses can be palpated. EXTREMITIES: Are without edema. NEUROLOGIC: Exam is physiologic ? LABORATORY DATA: Component Latest Ref Rng AND Units 06/27/2018 WBC, [place] 3.70 - 11.00 k/uL 3.62 (L) RBC, Marybeth 3.90 - 5.20 m/uL 3.08 (L) Hemoglobin, [place] 11.5 - 15.5 g/dL 9.1 (L) Hematocrit, [place] 36.0 - 46.0 % 29.8 (L) MCV, [place] 80.0 - 100.0 fL 96.8 MCH, [place] 26.0 - 34.0 pg 29.5 MCHC, [place] 30.5 - 36.0 g/dL 30.5 RDW, [place] 11.5 - 15.0 % 16.3 (H) Platelet Cnt, [place] 150 - 400 k/uL 81 (L) MPV, [place] 9.0 - 12.7 fL 11.3 Absol Gran Count 1.45 - 7.50 k/uL 3.02 Component Latest Ref Rng AND Units 06/27/2018 Protein, Total 6.3 - 8.0 g/dL 6.2 (L) Albumin 3.9 - 4.9 g/dL 4.0 Calcium 8.5 - 10.2 mg/dL 8.9 Bilirubin, Total 0.2 - 1.3 mg/dL 0.4 Alkaline Phosphatase 34 - 123 U/L 85 AST 13 - 35 U/L 7 (L) Glucose 74 - 99 mg/dL 114 (H) BUN 7 - 21 mg/dL 19 Creatinine 0.58 - 0.96 mg/dL 1.43 (H) Sodium 136 - 144 mmol/L 138 Potassium 3.7 - 5.1 mmol/L 4.5 Chloride 97 - 105 mmol/L 107 (H) CO2 22 - 30 mmol/L 25 Anion Gap mmol/L 6 ALT 7 - 38 U/L <5 (L) eGFR- 43 eGFR-All Other Races . 36 Iron study pending ASSESSMENT:?77-year-old female with history of chronic renal failure (stage III), and PAN cirrhosis, and pancytopenia and iron deficiency?secondary to GI bleeding on warfarin. ? PLAN: - continue injectafer 750mg IV weekly x 2 as needed; keep iron saturation above 20% - Repeat iron study monthly and monitor CBC weekly for possible blood transfusion or Aranesp injection. - Transfuse if hemoglobin is less than 8.0 gm/dl; or hemoglobin is less than 10 gm/dl for Aranesp injection every 14 days. - Follow-up with PCP and cardiology regarding anticoagulation therapy. - avoid aspirin and NSAIDs; dietary consult to maintain a proper diet with warfarin therapy. - Follow up with GI for bleeding AND check AFP - screening for liver cancer. - repeat CBC, CMP, iron study OV in 6 months. ? Yara Garay MD. Cc: Dr. Eddie Carpenter LPN 06/27/2018 9:33 AM Signed Aranesp injection administered right arm, tolerated well, no immediate adverse reactions noted. Celia Garay MD 06/28/2018 8:53 AM Signed Addended by: YARA GARAY MD on: 06/28/2018 08:53 AM Modules accepted: Orders Referring Provider: YARA GARAY [[id number]] Allergies As of Date: 06/27/2018 Noted Allergy Reaction AMBIEN (ZOLPIDEM TARTRATE) 09/06/2005 16 - Unknown ATIVAN (LORAZEPAM) 09/06/2005 14 - Other: See Comments Comments: just didn't work MOBIC (MELOXICAM) 09/06/2005 16 - Unknown PAMELOR (NORTRIPTYLINE HCL) 09/06/2005 16 - Unknown Date Reviewed: 06/27/2018 Reviewed by: Kandy Garcia - Fully Assessed Reason for Visit: Established Patient [175] Primary Visit Diagnosis:Anemia in chronic kidney disease, unspecified CKD stage [N18.9, D63.1] Other Visit Diagnoses:Chronic kidney disease, stage III (moderate) (HCC) [N18.3] Thrombocytopenia (HCC) [D69.6] Liver cirrhosis secondary to PAN (HCC) [K75.81, K74.60] Order(s):TREATMENT PARAMETERS [[id number]] Order #: [id number]: 1 [] Darbepoetin Peace In Polysorbat 200 mcg injection (ARANESP)Disp: Rfl: ALPHA FETOPROTEIN BL [SQAFP] Order #: [id number] FUTURE Level of Service: EST PATIENT VISIT LEVEL 4 [[id number]] Disposition: Return in about 6 months (around 12/25/2018). Follow-up and Disposition History Recorded Prescriptions as of 06/27/2018 Sig: BLOOD SUGAR DIAGNOSTIC STRIPS Use as instructed FOLIC ACID 1 MG TABLET Take 1 tablet by mouth once d* FERROUS SULFATE 325 MG (65 MG* Takes 1.5 tablets twice daily. LANTUS SOLOSTAR U-100 INSULIN* Inject 35 Units subcutaneousl* HUMALOG KWIKPEN (U-100) INSUL* Inject 15 Units subcutaneousl* VENLAFAXINE 37.5 MG TABLET TAKE ONE TABLET BY MOUTH TWIC* LEVOTHYROXINE 50 MCG TABLET TAKE ONE TABLET BY MOUTH EVER* ATORVASTATIN 20 MG TABLET Take 1 tablet by mouth once d* TRAZODONE 150 MG TABLET TAKE 1 OR 2 TABLETS BY MOUTH * PANTOPRAZOLE 40 MG TABLET,DEL* Take 1 tablet by mouth once d* POTASSIUM CHLORIDE ER 20 MEQ * Take 1 tablet by mouth once d* WARFARIN 2.5 MG TABLET Take 1 tablet by mouth. From * LANCETS Use as instructed 3 to 4 TIME* BLOOD-GLUCOSE METER, DRUM-TYP* Accu-Check Compact Plus Meter* HYDROCODONE 5 MG-ACETAMINOPHE* Take 1 tablet by mouth every * MAGNESIUM 250 MG TABLET Take 250 mg by mouth once lynette* PEN NEEDLE, DIABETIC 31 GAUGE* USE ONE NEEDLE FOR EACH DOSE FUROSEMIDE 20 MG TABLET Take 20 mg by mouth every oth* CYANOCOBALAMIN (VIT B-12) 1,0* Take 1 tablet by mouth once d* ALBUTEROL SULFATE HFA 90 MCG/* Inhale 2 Puffs as instructed * TIOTROPIUM BROMIDE 2.5 MCG/AC* Inhale 2 Puffs as instructed * DOCUSATE SODIUM 100 MG CAPSULE Take 1 capsule by mouth twice* CHOLECALCIFEROL (VITAMIN D3) * Take 500 Units by mouth once * Problem List As Of Date 06/27/2018 Noted Resolved Asthma [J45.909] INVALID FOR* ESOPHAGEAL REFLUX [K21.9] INVALID FOR* Mixed hyperlipidemia [E78.2] INVALID FOR* LUMBAGO [M54.5] INVALID FOR* Osteoarthrosis, unspecified whether generalized* Fibromyalgia [M79.7] More... 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 Heart Valve Replaced by Other Means [Z95.4] INVALID FOR* More... Cardiac pacemaker in situ [Z95.0] INVALID FOR* More... Acute kidney failure with lesion of tubular nec*INVALID FOR*01/10/2013 More... 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 Hypothyroidism [E03.9] INVALID FOR* THROMBOCYTOPENIA NOS [D69.6] INVALID FOR* COPD (chronic obstructive pulmonary disease) (H*INVALID FOR* Chronic kidney disease, stage III (moderate) [N*INVALID FOR* PSVT (paroxysmal supraventricular tachycardia) *INVALID FOR*05/09/2012 More... Iron deficiency [E61.1] INVALID FOR*02/03/2013 Anemia in chronic renal disease [N18.9, D63.1] INVALID FOR* Infected cat bite [W55.01XA] INVALID FOR*05/09/2012 Atrial fibrillation (HCC) [I48.91] INVALID FOR* Adenomatous colon polyp [D12.6] INVALID FOR* Tobacco use disorder [F17.200] INVALID FOR* Cholelithiasis [K80.20] INVALID FOR*03/04/2014 Unspecified pleural effusion, loculated, right *INVALID FOR*03/04/2014 Dizziness and giddiness [R42] INVALID FOR* Carotid artery disease without cerebral infarct*INVALID FOR* Other specified hypotension [I95.89] INVALID FOR* Transfusion history [Z92.89] INVALID FOR* More... Sleep apnea [G47.30] Moderate to severe pulmonary hypertension (HCC)*INVALID FOR* H/O mitral valve replacement [Z95.2] INVALID FOR* Type 2 diabetes mellitus with stage 3 chronic k*INVALID FOR* Vitamin D deficiency [E55.9] INVALID FOR* Anticoagulant long-term use [Z79.01] INVALID FOR* Iron deficiency anemia due to chronic blood los*INVALID FOR* Gastrointestinal hemorrhage [K92.2] INVALID FOR* Acute blood loss anemia [D62] INVALID FOR* Malnutrition of mild degree (HCC) [E44.1] INVALID FOR* GIB (gastrointestinal bleeding) [K92.2] INVALID FOR*06/07/2018 Thrombocytopenia (HCC) [D69.6] DM type 2 (diabetes mellitus, type 2) (HCC) [E1*INVALID FOR* More... CHF (congestive heart failure) (HCC) [I50.9] INVALID FOR* More... Chronic hypotension [I95.89] Liver cirrhosis secondary to PAN (HCC) [K75.81*INVALID FOR* Visit Notes: >> Celia Carpenter LPN [facility] Jun 27, 2018 9:33 AM Status: Signed Aranesp injection administered right arm, tolerated well, no immediate adverse reactions noted. Celia Carpenter [facility] Encounter Status:Closed by YARA GARAY MD on 06/27/18 PROGRESS Observed: 06/27/2018 Status: COMPLETED Source: [place] 8:55 AM [facility] REPOSITORY HNO ID: [id number] Author: Yara Garay Service: (none) Author Type: Physician Type: Progress Notes Filed: 06/27/2018 4:44 PM Note Text: PATIENT NAME: Emani Louis. CLINIC NO: [id number]. ATTENDING PHYSICIAN: Yara Garay MD. DATE OF SERVICE:06/27/2018 ? DIAGNOSIS: Anemia of chronic disease secondary to stage 3 chronic renal failure and PAN cirrhosis. Secondary thrombocytopeina; Iron deficiency secondary to chronic GI bleeding AND Coumadin therapy. ? HPI: ?Mrs. oLuis is a 77-year-old white female with anemia chronic disease on iron and Aranesp injection for treatment of her anemia?secondary to chronic renal failure. 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 She is on Coumadin for mechanical prosthetic mitral valve. She also has chronic asymptomatic hypotension, congestive heart failure and respiratory failure on chronic oxygen. ?? Patient has a previous GI evaluation which showed no source of active bleeding ?? Interim history:?Mrs. Louis was transfused multiple times since her last visit,?almost every 2- 3?weeks. Patient is?on Coumadin because of mechanical prosthetic mitral valve replacement.?Her PT/?INR is kept about 3 - 4 by cardiology ?Patient has moderate fatigue?because of anemia. She also has?chronically hypotensive,?she has no?dizziness and lightheadedness. She it is?on Aranesp injection in between blood transfusion for her anemia, in addition to IV iron. ?? Small bowel endoscopy in January showed: - The examined portion of the ileum was normal. ? - Moderate diverticulosis in the sigmoid colon, in ? the descending colon and in the transverse colon. ? There was no evidence of diverticular bleeding. ? All medications AND allergies updated and reviewed by me. ? REVIEW OF SYSTEMS: ? CONSTITUTIONAL: ?No fevers, chills, nightsweats, unintended weight loss HEENT: ?Denies frequent or severe heaches, nasal congestion/sinus symptoms, problematic allergy problems. EYES: ?No diplopia or blurry vision. CARDIOVASCULAR: ?No chest pain, + dyspnea?with exertion, palpitations, orthopnea, PND, ankle edema. PULM: ?No dyspnea, unexplained cough. GI: ?No dysphagia/odynophagia, problematic reflux, constipation, diarrhea, changes in stool habits, hematochezia, melena. : ?No new urinary complaints, including dysuria, gross hematuria or pyuria. NEURO: ?No new balance problems, peripheral weakness/paresthesias or numbness of concern. MUSC-SKEL: ?No new joint pain, swelling, or erythema. PSY: ?No concerns regarding depression, anxiety or panic. INTEGUMENTARY: ?No new skin changes (rash, new or changing mole, new growth) ? PHYSICAL EXAMINATION: 77-year-old female appeared to be no acute distressed BP 52/33[Right Arm[ Pulse 106 Temp (Src) 97.8 (Temporal Artery) Wt 134 lb (60.8kg) HEENT: Head is normocephalic, atraumatic. Sclerae white, conjunctivae pink. PEERL. EOMs are intact. Oropharynx is benign.?Complexion pale LYMPHATICS: There is no palpable adenopathy in the neck, supraclavicular region, axillae, or groin. LUNGS: Lungs are clear to percussion and auscultation. HEART: Heart is regular?with a 2/6 systolic?murmurs, + prosthetic mitral clicks no gallops, or rubs. ABDOMEN: Soft and nontender without organomegaly. No masses can be palpated. EXTREMITIES: Are without edema. NEUROLOGIC: Exam is physiologic ? LABORATORY DATA: Component Latest Ref Rng AND Units 06/27/2018 WBC, [place] 3.70 - 11.00 k/uL 3.62 (L) RBC, [place] 3.90 - 5.20 m/uL 3.08 (L) Hemoglobin, [place] 11.5 - 15.5 g/dL 9.1 (L) Hematocrit, [place] 36.0 - 46.0 % 29.8 (L) MCV, [place] 80.0 - 100.0 fL 96.8 MCH, [place] 26.0 - 34.0 pg 29.5 MCHC, [place] 30.5 - 36.0 g/dL 30.5 RDW, [place] 11.5 - 15.0 % 16.3 (H) Platelet Cnt, [place] 150 - 400 k/uL 81 (L) MPV, [place] 9.0 - 12.7 fL 11.3 Absol Gran Count 1.45 - 7.50 k/uL 3.02 Component Latest Ref Rng AND Units 06/27/2018 Protein, Total 6.3 - 8.0 g/dL 6.2 (L) Albumin 3.9 - 4.9 g/dL 4.0 Calcium 8.5 - 10.2 mg/dL 8.9 Bilirubin, Total 0.2 - 1.3 mg/dL 0.4 Alkaline Phosphatase 34 - 123 U/L 85 AST 13 - 35 U/L 7 (L) Glucose 74 - 99 mg/dL 114 (H) BUN 7 - 21 mg/dL 19 Creatinine 0.58 - 0.96 mg/dL 1.43 (H) Sodium 136 - 144 mmol/L 138 Potassium 3.7 - 5.1 mmol/L 4.5 Chloride 97 - 105 mmol/L 107 (H) CO2 22 - 30 mmol/L 25 Anion Gap mmol/L 6 ALT 7 - 38 U/L <5 (L) eGFR- 43 eGFR-All Other Races . 36 Iron study pending ASSESSMENT:?77-year-old female with history of chronic renal failure (stage III), and PAN cirrhosis, and pancytopenia and iron deficiency?secondary to GI bleeding on warfarin. ? PLAN: - continue injectafer 750mg IV weekly x 2 as needed; keep iron saturation above 20% - Repeat iron study monthly and monitor CBC weekly for possible blood transfusion or Aranesp injection. - Transfuse if hemoglobin is less than 8.0 gm/dl; or hemoglobin is less than 10 gm/dl for Aranesp injection every 14 days. - Follow-up with PCP and cardiology regarding anticoagulation therapy. - avoid aspirin and NSAIDs; dietary consult to maintain a proper diet with warfarin therapy. - Follow up with GI for bleeding AND check AFP - screening for liver cancer. - repeat CBC, CMP, iron study OV in 6 months. ? Yara Garay MD. Cc: Dr. Eddie RUEDA ABS GR + CBC Collected: 06/27/2018 Status: F Source: [place] 8:52 AM [facility] REPOSITORY TYPE CODE TESTS RESULT OUT OF REFERENCE UNITS RANGE LAB WWBC 3.70-11.00 k/uL Low [place] WBC 3.62 LAB WRBC 3.90-5.20 m/uL Low [place] RBC 3.08 LAB WHGB 11.5-15.5 g/dL Low [place] Hemoglobin 9.1 LAB WHCT 36.0-46.0 % Low [place] Hematocrit 29.8 LAB WMCV 80.0-100.0 fL [place] MCV 96.8 LAB WMCH 26.0-34.0 pg [place] MCH 29.5 LAB WMCHC 30.5-36.0 g/dL [place] MCHC 30.5 LAB WRDW 11.5-15.0 % [place] High RDW 16.3 LAB WPLT 150-400 k/uL Low [place] Platelet Cnt 81 LAB WMPV 9.0-12.7 fL [place] MPV 11.3 Result Comment: Test performed at: [facility], [address] [place] [address] Rd[address] [place] [address]. LAB ABGRAN 1.45-7.50 k/uL Absol Gran 3.02 Count COMP METABOLIC PANEL Collected: 06/27/2018 Status: F Source: [place] 8:52 AM [facility] REPOSITORY TYPE CODE TESTS RESULT OUT OF REFERENCE UNITS RANGE LAB TP 6.3-8.0 g/dL Protein, Low Total 6.2 LAB ALB 3.9-4.9 g/dL Albumin 4.0 LAB CA 8.5-10.2 mg/dL Calcium, Total 8.9 LAB TBIL 0.2-1.3 mg/dL Bilirubin, Total 0.4 LAB ALKP 34-123 U/L Alkaline Phosphatase 85 LAB AST 13-35 U/L AST Low 7 LAB GLU 74-99 mg/dL Glucose High 114 LAB BUN 7-21 mg/dL BUN 19 LAB CRET 0.58-0.96 mg/dL Creatinine High 1.43 LAB NA 136-144 mmol/L Sodium 138 LAB K 3.7-5.1 mmol/L Potassium 4.5 LAB CL 97-105 mmol/L Chloride High 107 LAB CO2 22-30 mmol/L CO2 25 LAB AGAP mmol/L Anion Gap 6 LAB ALT 7-38 U/L ALT Low <5 LAB GFRAA eGFR- 43 Amer. LAB GFRNAA . eGFR-All Other Races 36 Result Comment: eGFR (Estimated GFR) Units of measure: mL/min/1.73 meters squared eGFR is derived from the reexpressed MDRD Study equation using the following parameters: serum creatinine, age, gender and race. The creatinine assay has been calibrated to be traceable to IDMS. An eGFR <60 mL/min/1.73m2 for >3 months is consistent with chronic kidney disease. Refer to KDOQI guidelines for clinical interpretation. In patients with unstable renal function, e.g. those with acute kidney injury, the eGFR may not accurately reflect actual GFR. AFP Collected: 06/27/2018 Status: F Source: [place] 8:52 AM [facility] REPOSITORY TYPE CODE TESTS RESULT OUT OF RANGE REFERENCE UNITS LAB AFP <11 ng/mL AFP <3.0 Result Comment: Result rechecked. Performed By: #### AFP #### [facility] [address] [address] IRON AND TIBC Collected: 06/27/2018 Status: F Source: [place] 8:51 AM [facility] REPOSITORY TYPE CODE TESTS RESULT OUT OF REFERENCE UNITS RANGE LAB IRN [id number] ug/dL Iron 44 LAB TIBC 232-386 ug/dL TIBC 265 LAB SAT 15-57 % Transferrin Saturatn 17 Performed By: #### IRON, FERR #### [facility] [address] [address] FERRITIN Collected: 06/27/2018 Status: F Source: [place] 8:51 AM [facility] REPOSITORY TYPE CODE TESTS RESULT OUT OF REFERENCE UNITS RANGE LAB FERR 14.7-205.1 ng/mL Ferritin 103.6 Performed By: #### IRON, FERR #### [facility] [address] [address] PROTHROMBIN TIME W/INR Collected: 06/20/2018 Status: F Source: MARY[place]ETH 11:10 AM [facility] REPOSITORY TYPE CODE TESTS RESULT OUT OF RANGE REFERENCE UNITS LAB L300.4150 11.7-14.9 SECONDS High PROTIME 34.7 LAB L300.4200 Normal INR 3.4 Performed By: #### L300.3900 #### [facility] [address] [place], [address] KIMBERLY ABS GR + CBC Collected: 06/20/2018 Status: F Source: [place] 9:25 AM [facility] REPOSITORY TYPE CODE TESTS RESULT OUT OF REFERENCE UNITS RANGE LAB WWBC 3.70-11.00 k/uL Low [place] WBC 3.34 LAB WRBC 3.90-5.20 m/uL Low [place] RBC 2.63 LAB WHGB 11.5-15.5 g/dL Low [place] Hemoglobin 7.8 LAB WHCT 36.0-46.0 % Low [place] Hematocrit 25.6 LAB WMCV 80.0-100.0 fL [place] MCV 97.3 LAB WMCH 26.0-34.0 pg [place] MCH 29.7 LAB WMCHC 30.5-36.0 g/dL [place] MCHC 30.5 LAB WRDW 11.5-15.0 % [place] High RDW 16.5 LAB WPLT 150-400 k/uL Low [place] Platelet Cnt 97 LAB WMPV 9.0-12.7 fL [place] MPV 11.3 Result Comment: Test performed at: [facility], [address] [place] [address]. LAB ABGRAN 1.45-7.50 k/uL Absol Gran 2.86 Count TYPE AND SCREEN Collected: 06/20/2018 Status: F Source: KIMBER[place] 9:23 AM [facility] REPOSITORY Order Comment: TO BE GIVEN 06/21/18 @ 0900 PRETRANSFUSION HGB = 7.8 HCT = 25.6 PERFORMED AT [facility] CMV NEG?* N Give When? 06/21/18 @ 0900 Irradiated? N Leukodepleted? Y Reason for Type AND Screen/Red Cells: ANEMIA TYPE CODE TESTS RESULT OUT OF RANGE REFERENCE UNITS LAB B10.0800 A Normal BLOOD TYPE GEL POSITIVE LAB B100.4000 Normal Antibody NEGATIVE Screen Performed By: #### B101.7450 #### [facility] [address] [place], [address] RC Collected: 06/20/2018 Status: F Source: KIM[place] 9:23 AM [facility] REPOSITORY TYPE CODE TESTS RESULT OUT OF REFERENCE UNITS RANGE LAB U100.0000 [id number] TRANSFUSED PRODUCT: T AND S with Crossmatch, Red Cells COUNT: 2 Performed By: #### U100.0000 #### [facility] - refer to report for specific site MARYBETH ABS GR + CBC Collected: 06/13/2018 Status: F Source: [place] 9:06 AM [facility] REPOSITORY TYPE CODE TESTS RESULT OUT OF REFERENCE UNITS RANGE LAB WWBC 3.70-11.00 k/uL Low [place] WBC 2.96 LAB WRBC 3.90-5.20 m/uL Low [place] RBC 3.19 LAB WHGB 11.5-15.5 g/dL Low [place] Hemoglobin 9.4 LAB WHCT 36.0-46.0 % Low [place] Hematocrit 30.1 LAB WMCV 80.0-100.0 fL [place] MCV 94.4 LAB WMCH 26.0-34.0 pg [place] MCH 29.5 LAB WMCHC 30.5-36.0 g/dL [place] MCHC 31.2 LAB WRDW 11.5-15.0 % [place] High RDW 15.3 LAB WPLT 150-400 k/uL Low [place] Platelet Cnt 88 LAB WMPV 9.0-12.7 fL [place] MPV 11.6 Result Comment: Test performed at: [facility], [address] [place] [address] Rd[address] [place] [address]. LAB ABGRAN 1.45-7.50 k/uL Absol Gran 2.35 Count MARYBETH ABS GR + CBC Collected: 06/06/2018 Status: F Source: [place] 9:39 AM [facility] REPOSITORY TYPE CODE TESTS RESULT OUT OF REFERENCE UNITS RANGE LAB WWBC 3.70-11.00 k/uL Low [place] WBC 3.27 LAB WRBC 3.90-5.20 m/uL Low [place] RBC 3.39 LAB WHGB 11.5-15.5 g/dL Low [place] Hemoglobin 10.1 LAB WHCT 36.0-46.0 % Low [place] Hematocrit 32.6 LAB WMCV 80.0-100.0 fL [place] MCV 96.2 LAB WMCH 26.0-34.0 pg [place] MCH 29.8 LAB WMCHC 30.5-36.0 g/dL [place] MCHC 31.0 LAB WRDW 11.5-15.0 % [place] High RDW 16.0 LAB WPLT 150-400 k/uL Low [place] Platelet Cnt 73 LAB WMPV 9.0-12.7 fL [place] MPV 11.7 Result Comment: Test performed at: [facility] [place], [address] [place] [address]. LAB ABGRAN 1.45-7.50 k/uL Absol Gran 2.69 Count PACEMAKER CHECK Observed: 06/04/2018 Status: F Source: MARYBETH 8:12 AM [facility] REPOSITORY [facility] [address] [place] [address] Pacemaker Check Date of Service: 06/03/18 1047 MR#: [id number] Acct: [id number] Name: EMANI LOUIS Rep #: [id number] : 1940 From: Angélica Dunn Age/Sex: 77/F [place] [facility]: Signed Billing Codes PM Device Codes: PM Dev Prog Eval, Dual 06/03/18 1140 <Electronically signed by Angélica Dunn > Date Angélica Dunn 06/04/18 0812<Electronically signed by Peace MCDOWELL> Cosigner Signature: Date (if applicable) Peace Gibson CC: Eddie Mendoza MD PROTHROMBIN TIME W/INR Collected: 05/30/2018 Status: F Source: MARYBETH 12:22 PM [facility] REPOSITORY TYPE CODE TESTS RESULT OUT OF RANGE REFERENCE UNITS LAB L300.4150 11.7-14.9 SECONDS High PROTIME 33.1 LAB L300.4200 Normal INR 3.2 Performed By: #### L300.3900 #### [facility] [address] [place], [address] KIMBERLY ABS GR + CBC Collected: 05/30/2018 Status: F Source: [place] 8:36 AM [facility] REPOSITORY TYPE CODE TESTS RESULT OUT OF REFERENCE UNITS RANGE LAB WWBC 3.70-11.00 k/uL Low [place] WBC 2.77 LAB WRBC 3.90-5.20 m/uL Low [place] RBC 2.79 LAB WHGB 11.5-15.5 g/dL Low [place] Hemoglobin 8.4 LAB WHCT 36.0-46.0 % Low [place] Hematocrit 27.9 LAB WMCV 80.0-100.0 fL [place] MCV 100.0 LAB WMCH 26.0-34.0 pg [place] MCH 30.1 LAB WMCHC 30.5-36.0 g/dL Low [place] MCHC 30.1 LAB WRDW 11.5-15.0 % [place] High RDW 16.4 LAB WPLT 150-400 k/uL Low [place] Platelet Cnt 87 LAB WMPV 9.0-12.7 fL [place] MPV 11.4 Result Comment: Test performed at: [facility], [address] [place] [address] Rd[address] [place] [address]. LAB ABGRAN 1.45-7.50 k/uL Absol Gran 2.23 Count TYPE AND SCREEN Collected: 05/30/2018 Status: F Source: KIM[place] 8:33 AM [facility] REPOSITORY Order Comment: PRETRANSFUSION HGB = 8.4 HCT = PERFORMED AT [facility] CMV NEG?* N Give When? 05/31/18 @0830 Irradiated? N Leukodepleted? Y Reason for Type AND Screen/Red Cells: ANEMIA TYPE CODE TESTS RESULT OUT OF RANGE REFERENCE UNITS LAB B10.0800 A Normal BLOOD TYPE GEL POSITIVE LAB B100.4000 Normal Antibody NEGATIVE Screen Performed By: #### B101.7450 #### [facility] [address] [place], [address] Collected: 05/30/2018 Status: F Source: [place] 8:33 AM [facility] REPOSITORY TYPE CODE TESTS RESULT OUT OF REFERENCE UNITS RANGE LAB U100.0000 [id number] TRANSFUSED PRODUCT: T AND S with Crossmatch, Red Cells COUNT: 2 Performed By: #### U100.0000 #### [facility] - refer to report for specific site MARYBETH ABS GR + CBC Collected: 05/23/2018 Status: F Source: [place] 9:19 AM [facility] REPOSITORY TYPE CODE TESTS RESULT OUT OF REFERENCE UNITS RANGE LAB WWBC 3.70-11.00 k/uL Low [place] WBC 3.38 LAB WRBC 3.90-5.20 m/uL Low [place] RBC 3.11 LAB WHGB 11.5-15.5 g/dL Low [place] Hemoglobin 9.4 LAB WHCT 36.0-46.0 % Low [place] Hematocrit 30.7 LAB WMCV 80.0-100.0 fL [place] MCV 98.7 LAB WMCH 26.0-34.0 pg [place] MCH 30.2 LAB WMCHC 30.5-36.0 g/dL [place] MCHC 30.6 LAB WRDW 11.5-15.0 % [place] High RDW 16.3 LAB WPLT 150-400 k/uL Low [place] Platelet Cnt 79 LAB WMPV 9.0-12.7 fL [place] MPV 11.0 Result Comment: Test performed at: [facility], [address] [place] [address]., [place] [address]. LAB ABGRAN 1.45-7.50 k/uL Absol Gran 2.73 Count PROTHROMBIN TIME W/INR Collected: 05/16/2018 Status: F Source: [place] 10:46 AM [facility] REPOSITORY TYPE CODE TESTS RESULT OUT OF RANGE REFERENCE UNITS LAB L300.4150 11.7-14.9 SECONDS High PROTIME 33.2 LAB L300.4200 Normal INR 3.2 Performed By: #### L300.3900 #### [facility] [address] [place], [address] MARYBETH ABS GR + CBC Collected: 05/16/2018 Status: F Source: [place] 9:20 AM [facility] REPOSITORY TYPE CODE TESTS RESULT OUT OF REFERENCE UNITS RANGE LAB WWBC 3.70-11.00 k/uL Low [place] WBC 3.47 LAB WRBC 3.90-5.20 m/uL Low [place] RBC 2.55 LAB WHGB 11.5-15.5 g/dL Low [place] Hemoglobin 7.7 LAB WHCT 36.0-46.0 % Low [place] Hematocrit 25.6 LAB WMCV 80.0-100.0 fL [place] High MCV 100.4 LAB WMCH 26.0-34.0 pg [place] MCH 30.2 LAB WMCHC 30.5-36.0 g/dL Low [place] MCHC 30.1 LAB WRDW 11.5-15.0 % [place] High RDW 17.4 LAB WPLT 150-400 k/uL Low [place] Platelet Cnt 98 LAB WMPV 9.0-12.7 fL [place] MPV 11.1 Result Comment: Test performed at: [facility], [address] [place] [address]. LAB ABGRAN 1.45-7.50 k/uL Absol Gran 2.92 Count TYPE AND SCREEN Collected: 05/16/2018 Status: F Source: [place] 9:08 AM [facility] REPOSITORY Order Comment: PRETRANSFUSION HGB = 7.7 HCT = 25.6 PERFORMED AT [facility] CMV NEG?* N Give When? 05/17 AT 9AM Irradiated? N Leukodepleted? Y Reason for Type AND Screen/Red Cells: HEMORRHAGE, GI BLEED TYPE CODE TESTS RESULT OUT OF RANGE REFERENCE UNITS LAB B10.0800 A Normal BLOOD TYPE GEL POSITIVE LAB B100.4000 Normal Antibody NEGATIVE Screen Performed By: #### B101.7450 #### [facility] [address] [place], [address] Collected: 05/16/2018 Status: F Source: [place] 9:08 AM [facility] REPOSITORY TYPE CODE TESTS RESULT OUT OF REFERENCE UNITS RANGE LAB U100.0000 [id number] TRANSFUSED PRODUCT: T AND S with Crossmatch, Red Cells COUNT: 2 Performed By: #### U100.0000 #### [facility] - refer to report for specific site KIMBERLY ABS GR + CBC Collected: 05/09/2018 Status: F Source: [place] 8:25 AM [facility] REPOSITORY TYPE CODE TESTS RESULT OUT OF REFERENCE UNITS RANGE LAB WWBC 3.70-11.00 k/uL Low [place] WBC 3.20 LAB WRBC 3.90-5.20 m/uL Low [place] RBC 2.93 LAB WHGB 11.5-15.5 g/dL Low [place] Hemoglobin 8.9 LAB WHCT 36.0-46.0 % Low [place] Hematocrit 28.8 LAB WMCV 80.0-100.0 fL [place] MCV 98.3 LAB WMCH 26.0-34.0 pg [place] MCH 30.4 LAB WMCHC 30.5-36.0 g/dL [place] MCHC 30.9 LAB WRDW 11.5-15.0 % [place] High RDW 16.1 LAB WPLT 150-400 k/uL Low [place] Platelet Cnt 75 LAB WMPV 9.0-12.7 fL [place] MPV 11.2 Result Comment: Test performed at: [facility] [place], [address] [place] [address]. LAB ABGRAN 1.45-7.50 k/uL Absol Gran 2.72 Count BASIC METABOLIC PANL Collected: 05/09/2018 Status: F Source: [place] 8:25 AM [facility] REPOSITORY TYPE CODE TESTS RESULT OUT OF REFERENCE UNITS RANGE LAB GLU 74-99 mg/dL High Glucose 154 Result Comment: The [place] [employer] (ADA) provides guidance for cutoff values for fasting glucose and random glucose. The ADA defines fasting as no caloric intake for at least 8 hours. Fas ting plasma glucose results between 100 to 125 mg/dL indicate increased risk for diabetes (prediabetes). Fasting plasma glucose results greater than or equal to 126 mg/dL meet the criteria for diagnosis of diabetes. In the absence of unequivocal hyperglycemia, results should be confirmed by repeat testing. In a patient with classic symptoms of hyperglycemia or hyperglycemic crisis, random plasma glucose results greater than or equal to 200 mg/dL meet the criteria for diagnosis of diabetes. Reference: Standards of Medical Care in Diabetes 2016, [place] [employer]. Diabetes Care. 2016.39(Suppl 1). LAB BUN 7-21 mg/dL BUN 19 LAB CRET 0.58-0.96 mg/dL Creatinine High 1.61 LAB NA 136-144 mmol/L Sodium 141 LAB K 3.7-5.1 mmol/L Potassium 4.1 LAB CL 97-105 mmol/L Chloride 104 LAB CO2 22-30 mmol/L CO2 24 LAB AGAP 9-18 mmol/L Anion Gap 13 LAB CA 8.5-10.2 mg/dL Calcium, Total 8.5 LAB GFRAA eGFR- Amer. 38 LAB GFRNAA . eGFR-All Other Races 31 Result Comment: eGFR (Estimated GFR) Units of measure: mL/min/1.73 meters squared eGFR is derived from the reexpressed MDRD Study equation using the following parameters: serum creatinine, age, gender and race. The creatinine assay has been calibrated to be traceable to IDMS. An eGFR <60 mL/min/1.73m2 for >3 months is consistent with chronic kidney disease. Refer to KDOQI guidelines for clinical interpretation. In patients with unstable renal function, e.g. those with acute kidney injury, the eGFR may not accurately reflect actual GFR. Performed By: #### BMP, TSH #### [facility] [employer] [facility] [address] [place], [place] [address] TSH Collected: 05/09/2018 Status: F Source: [place] 8:25 AM [facility] REPOSITORY TYPE CODE TESTS RESULT OUT OF RANGE REFERENCE UNITS LAB TSH 0.400-5.500 uU/mL TSH 4.360 Performed By: #### BMP, TSH #### [facility] [employer] [facility] [address] [place], [place] [address] PROGRESS Observed: 05/07/2018 Status: COMPLETED Source: [place] 10:27 AM [facility] REPOSITORY HNO ID: [id number] Author: Kodak Muñoz Service: (none) Author Type: Physician Type: Progress Notes Filed: 05/07/2018 10:38 AM Note Text: This note was created using [employer]. Subjective Emani Louis is a 77 year old female. She had transfusion dependent anemia and had almost weekly blood transfusions for several weeks. Enteroscopy was negative in January and capsule endoscopy was negative in November. Anticoagulation was maintained by cardiology. Chronic hypotension was relatively asymptomatic. DM, COPD, and CKD were stable. Hypothyroidism was slightly off the last time this was checked. ACTIVE PROBLEM LIST Asthma Esophageal Reflux Mixed Hyperlipidemia Lumbago Osteoarthrosis, Unspecified Whether Generalized Or Localized, Involving Lower Leg Fibromyalgia Chronic Rhinitis Depressive Disorder Persistent Disorder of Initiating Or Maintaining Sleep Congestive Heart Failure (Hcc) Heart Valve Replaced By Other Means Cardiac Pacemaker in Situ Hypothyroidism Thrombocytopenia, Unspecified (Hcc) Copd (Chronic Obstructive Pulmonary Disease) (Hcc) Chronic Kidney Disease, Stage Iii (Moderate) (Hcc) Anemia in Chronic Renal Disease Atrial Fibrillation (Hcc) Adenomatous Colon Polyp Tobacco Use Disorder Dizziness and Giddiness Carotid Artery Disease Without Cerebral Infarction (Hcc) Other Specified Hypotension Transfusion History Sleep Apnea Moderate to Severe Pulmonary Hypertension (Hcc) H/O Mitral Valve Replacement Type 2 Diabetes Mellitus With Stage 3 Chronic Kidney Disease (Hcc) Vitamin D Deficiency Anticoagulant Long-Term Use Iron Deficiency Anemia Due to Chronic Blood Loss Gastrointestinal Hemorrhage Acute Blood Loss Anemia Malnutrition of Mild Degree (Hcc) Gib (Gastrointestinal Bleeding) Thrombocytopenia (Hcc) Dm Type 2 (Diabetes Mellitus, Type 2) (Hcc) Chf (Congestive Heart Failure) ([facility]) Chronic Hypotension Current Outpatient Prescriptions: ferrous sulfate 325 mg (65 mg iron) EC tablet Takes 1.5 tablets twice daily. LANTUS SOLOSTAR U-100 INSULIN 100 unit/mL (3 mL) inpn Inject 35 Units subcutaneously daily at bedtime. For blood glucose >150 HUMALOG KWIKPEN INSULIN 100 unit/mL inpn Inject 15 Units subcutaneously twice daily with meals for blood glucose >140. Add 2 units for every 50 of glucose >150. venlafaxine (EFFEXOR) 37.5 mg tablet TAKE ONE TABLET BY MOUTH TWICE DAILY ACCU-CHEK GUIDE test strip test blood sugar(s) FOUR TIMES DAILY levothyroxine (SYNTHROID) 50 mcg tablet TAKE ONE TABLET BY MOUTH EVERY DAY atorvastatin (LIPITOR) 20 mg tablet Take 1 tablet by mouth once daily. traZODone (DESYREL) 150 mg tablet TAKE 1 OR 2 TABLETS BY MOUTH DAILY AT BEDTIME pantoprazole DR (PROTONIX) 40 mg tablet Take 1 tablet by mouth once daily. folic acid 1 mg tablet Take 1 tablet by mouth once daily. potassium chloride ER (K-DUR, KLOR-CON) 20 mEq tablet Take 1 tablet by mouth once daily. From outside pharmacy. warfarin (COUMADIN) 2.5 mg tablet Take 1 tablet by mouth. From outside pharmacy. Lancets lancets Use as instructed 3 to 4 TIMES DAILY insulin dep E 11.9 Blood-Glucose Meter, Drum-type (ACCU-CHEK COMPACT PLUS CARE) kit Accu-Check Compact Plus Meter Diagnosis: Type 2 DM - Uncontrolled E11.65 HYDROcodone-acetaminophen (NORCO) 5-325 mg per tablet Take 1 tablet by mouth every 8 hours as needed for Pain. Magnesium 250 mg tab Take 250 mg by mouth once daily. insulin needles, DISPOSABLE, (PEN NEEDLE) 31 gauge x 5/16 ndle USE ONE NEEDLE FOR EACH DOSE furosemide (LASIX) 20 mg tablet Take 20 mg by mouth every other day. cyanocobalamin (VITAMIN B-12) 1,000 mcg tab Take 1 tablet by mouth once daily. albuterol HFA (PROVENTIL HFA, VENTOLIN HFA) 90 mcg/actuation inhaler Inhale 2 Puffs as instructed every 6 hours as needed for Wheezing/Shortness of Breath. tiotropium bromide (SPIRIVA RESPIMAT) 2.5 mcg/actuation mist Inhale 2 Puffs as instructed once daily. Inhale two puffs once daily. docusate sodium (COLACE) 100 mg capsule Take 1 capsule by mouth twice daily as needed for Constipation. Cholecalciferol, Vitamin D3, (VITAMIN D) 1,000 unit ORAL Tab Take 500 Units by mouth once daily. No current facility-administered medications for this visit. Review of Systems Constitutional: Positive for fatigue. Negative for unexpected weight change. HENT: Positive for postnasal drip. Respiratory: Positive for cough and shortness of breath. Cardiovascular: Negative for chest pain, palpitations and leg swelling. Gastrointestinal: Negative for abdominal pain, blood in stool, constipation and diarrhea. Genitourinary: Negative. Musculoskeletal: Negative. Neurological: Positive for light-headedness. Psychiatric/Behavioral: Negative. Objective BP (!) 66/42 (BP Site: Left Arm, BP Position: Sitting, BP Cuff Size: Regular Adult) Pulse 108 Temp (!) 35.9 ?C (96.6 ?F) (Left Tympanic) Resp 24 Wt 60.3 kg (133 lb) BMI 24.33 kg/m? Physical Exam Constitutional: She is oriented to person, place, and time. She appears cachectic. No distress. Eyes: Conjunctivae and EOM are normal. No scleral icterus. Neck: No JVD present. Cardiovascular: S1 normal and S2 normal. An irregular rhythm present. Murmur heard. Systolic murmur is present with a grade of 2/6 Pulmonary/Chest: She has no wheezes. She has no rales. Abdominal: Soft. There is no tenderness. Musculoskeletal: She exhibits no edema. Neurological: She is alert and oriented to person, place, and time. Ambulatory. Hemoglobin A1C (%) Date Value 05/02/2018 5.5 11/29/2017 4.7 ) These are not reliable due to transfusion dependence. Assessment and Plan 1. Type 2 diabetes mellitus with stage 3 chronic kidney disease, unspecified whether correction insulin use (HCC) - ICD9: 250.40, 585.3, ICD10: E11.22, N18.3 (primary diagnosis) Controlled. - Continue current medications - BASIC METABOLIC PNL 2. Need for vaccination - ICD9: V05.9, ICD10: Z23 - ADMIN OF INFLUENZA VACCINE - INFLUENZA SEASONAL HIGH DOSE AGE 65+ 3. Chronic hypotension - ICD9: 458.1, ICD10: I95.89 Stable. 4. Hypothyroidism, unspecified type - ICD9: 244.9, ICD10: E03.9 Recheck. - TSH BLD 5. Chronic obstructive pulmonary disease, unspecified COPD type (HCC) - ICD9: 496, ICD10: J44.9 Stable. 6. Chronic kidney disease, stage III (moderate) (HCC) - ICD9: 585.3, ICD10: N18.3 Recheck. - BASIC METABOLIC PNL 7. Anemia in stage 3 chronic kidney disease (HCC) - ICD9: 285.21, 585.3, ICD10: N18.3, D63.1 Transfusion dependent. Managed per hematology. Kodak Muñoz MD CNOV Observed: 05/07/2018 Status: COMPLETED Source: [place] 9:20 AM [facility] REPOSITORY Office Visit (INTMWS) EMANI LOUIS ([id number]) 1940 F Date Time Provider Department 05/07/18 9:20 AM KODAK MUÑOZ [facility] During your visit today, we recorded the following information about you: Temperature Pulse Respiration Blood pressure 96.6 degrees 108/minute 24/minute 66/42 Weight 60.3 kg Marta E Anjali OROZCO 05/07/2018 9:42 AM Signed Influenza Vaccine Documentation: ? Patient is identified by name and date of : Yes ? Patient is older than 6 months of age: Yes ? Patient denies a severe allergy to any vaccine component or to a previous dose of influenza vaccine: Yes FOR EGG ALLERGY CONCERNS, REFER TO PROVIDER. ? Denies allergy to gelatin, formaldehyde, thimerosol :Yes ? Patient is afebrile and not moderately or severely ill: Yes ? Does the patient have a history of Guillain [employer] Syndrome (a severe paralytic illness): No ? Denies bone marrow transplant prior 6 months or solid organ transplant prior 3 months: Yes ? Denies a history of fainting after a prior injection or medical procedure? Yes If patient has fainted in the past, the CDC recommends sitting or lying down for 15 minutes after the vaccination. ? VIS sheet provided: Yes ? See Immunization Form in EpicCare for details of immunizations administered today. If patient reports dizziness, vision changes or ringing in the ears post vaccination ? please have patient sit or lie down for 15 minutes. Kodak Muñoz MD 05/07/2018 10:38 AM Signed This note was created using [employer]. Subjective Emani Louis is a 77 year old female. She had transfusion dependent anemia and had almost weekly blood transfusions for several weeks. Enteroscopy was negative in January and capsule endoscopy was negative in November. Anticoagulation was maintained by cardiology. Chronic hypotension was relatively asymptomatic. DM, COPD, and CKD were stable. Hypothyroidism was slightly off the last time this was checked. ACTIVE PROBLEM LIST Asthma Esophageal Reflux Mixed Hyperlipidemia Lumbago Osteoarthrosis, Unspecified Whether Generalized Or Localized, Involving Lower Leg Fibromyalgia Chronic Rhinitis Depressive Disorder Persistent Disorder of Initiating Or Maintaining Sleep Congestive Heart Failure (Hcc) Heart Valve Replaced By Other Means Cardiac Pacemaker in Situ Hypothyroidism Thrombocytopenia, Unspecified (Hcc) Copd (Chronic Obstructive Pulmonary Disease) (Hcc) Chronic Kidney Disease, Stage Iii (Moderate) (Hcc) Anemia in Chronic Renal Disease Atrial Fibrillation (Hcc) Adenomatous Colon Polyp Tobacco Use Disorder Dizziness and Giddiness Carotid Artery Disease Without Cerebral Infarction (Hcc) Other Specified Hypotension Transfusion History Sleep Apnea Moderate to Severe Pulmonary Hypertension (Hcc) H/O Mitral Valve Replacement Type 2 Diabetes Mellitus With Stage 3 Chronic Kidney Disease (Hcc) Vitamin D Deficiency Anticoagulant Long-Term Use Iron Deficiency Anemia Due to Chronic Blood Loss Gastrointestinal Hemorrhage Acute Blood Loss Anemia Malnutrition of Mild Degree (Hcc) Gib (Gastrointestinal Bleeding) Thrombocytopenia (Hcc) Dm Type 2 (Diabetes Mellitus, Type 2) (Hcc) Chf (Congestive Heart Failure) (Hcc) Chronic Hypotension Current Outpatient Prescriptions: ferrous sulfate 325 mg (65 mg iron) EC tablet Takes 1.5 tablets twice daily. LANTUS SOLOSTAR U-100 INSULIN 100 unit/mL (3 mL) inpn Inject 35 Units subcutaneously daily at bedtime. For blood glucose >150 HUMALOG KWIKPEN INSULIN 100 unit/mL inpn Inject 15 Units subcutaneously twice daily with meals for blood glucose >140. Add 2 units for every 50 of glucose >150. venlafaxine (EFFEXOR) 37.5 mg tablet TAKE ONE TABLET BY MOUTH TWICE DAILY ACCU-CHEK GUIDE test strip test blood sugar(s) FOUR TIMES DAILY levothyroxine (SYNTHROID) 50 mcg tablet TAKE ONE TABLET BY MOUTH EVERY DAY atorvastatin (LIPITOR) 20 mg tablet Take 1 tablet by mouth once daily. traZODone (DESYREL) 150 mg tablet TAKE 1 OR 2 TABLETS BY MOUTH DAILY AT BEDTIME pantoprazole DR (PROTONIX) 40 mg tablet Take 1 tablet by mouth once daily. folic acid 1 mg tablet Take 1 tablet by mouth once daily. potassium chloride ER (K-DUR, KLOR-CON) 20 mEq tablet Take 1 tablet by mouth once daily. From outside pharmacy. warfarin (COUMADIN) 2.5 mg tablet Take 1 tablet by mouth. From outside pharmacy. Lancets lancets Use as instructed 3 to 4 TIMES DAILY insulin dep E 11.9 Blood-Glucose Meter, Drum-type (ACCU-CHEK COMPACT PLUS CARE) kit Accu-Check Compact Plus Meter Diagnosis: Type 2 DM - Uncontrolled E11.65 HYDROcodone-acetaminophen (NORCO) 5-325 mg per tablet Take 1 tablet by mouth every 8 hours as needed for Pain. Magnesium 250 mg tab Take 250 mg by mouth once daily. insulin needles, DISPOSABLE, (PEN NEEDLE) 31 gauge x 16 ndle USE ONE NEEDLE FOR EACH DOSE furosemide (LASIX) 20 mg tablet Take 20 mg by mouth every other day. cyanocobalamin (VITAMIN B-12) 1,000 mcg tab Take 1 tablet by mouth once daily. albuterol HFA (PROVENTIL HFA, VENTOLIN HFA) 90 mcg/actuation inhaler Inhale 2 Puffs as instructed every 6 hours as needed for Wheezing/Shortness of Breath. tiotropium bromide (SPIRIVA RESPIMAT) 2.5 mcg/actuation mist Inhale 2 Puffs as instructed once daily. Inhale two puffs once daily. docusate sodium (COLACE) 100 mg capsule Take 1 capsule by mouth twice daily as needed for Constipation. Cholecalciferol, Vitamin D3, (VITAMIN D) 1,000 unit ORAL Tab Take 500 Units by mouth once daily. No current facility-administered medications for this visit. Review of Systems Constitutional: Positive for fatigue. Negative for unexpected weight change. HENT: Positive for postnasal drip. Respiratory: Positive for cough and shortness of breath. Cardiovascular: Negative for chest pain, palpitations and leg swelling. Gastrointestinal: Negative for abdominal pain, blood in stool, constipation and diarrhea. Genitourinary: Negative. Musculoskeletal: Negative. Neurological: Positive for light-headedness. Psychiatric/Behavioral: Negative. Objective BP (!) 66/42 (BP Site: Left Arm, BP Position: Sitting, BP Cuff Size: Regular Adult) Pulse 108 Temp (!) 35.9 ?C (96.6 ?F) (Left Tympanic) Resp 24 Wt 60.3 kg (133 lb) BMI 24.33 kg/m? Physical Exam Constitutional: She is oriented to person, place, and time. She appears cachectic. No distress. Eyes: Conjunctivae and EOM are normal. No scleral icterus. Neck: No JVD present. Cardiovascular: S1 normal and S2 normal. An irregular rhythm present. Murmur heard. Systolic murmur is present with a grade of 2/6 Pulmonary/Chest: She has no wheezes. She has no rales. Abdominal: Soft. There is no tenderness. Musculoskeletal: She exhibits no edema. Neurological: She is alert and oriented to person, place, and time. Ambulatory. Hemoglobin A1C (%) Date Value 05/02/2018 5.5 11/29/2017 4.7 ) These are not reliable due to transfusion dependence. Assessment and Plan 1. 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 - Continue current medications - BASIC METABOLIC PNL 2. Need for vaccination - ICD9: V05.9, ICD10: Z23 - ADMIN OF INFLUENZA VACCINE - INFLUENZA SEASONAL HIGH DOSE AGE 65+ 3. Chronic hypotension - ICD9: 458.1, ICD10: I95.89 Stable. 4. Hypothyroidism, unspecified type - ICD9: 244.9, ICD10: E03.9 Recheck. - TSH BLD 5. Chronic obstructive pulmonary disease, unspecified COPD type (HCC) - ICD9: 496, ICD10: J44.9 Stable. 6. Chronic kidney disease, stage III (moderate) (HCC) - ICD9: 585.3, ICD10: N18.3 Recheck. - BASIC METABOLIC PNL 7. Anemia in stage 3 chronic kidney disease (HCC) - ICD9: 285.21, 585.3, ICD10: N18.3, D63.1 Transfusion dependent. Managed per hematology. 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 (HCC) [E11.22, N18.3] Other Visit Diagnoses:Need for vaccination [Z23] Chronic hypotension [I95.89] Hypothyroidism, unspecified type [E03.9] Chronic obstructive pulmonary disease, unspecified COPD type (HCC) [J44.9] Chronic kidney disease, stage III (moderate) (HCC) [N18.3] Anemia in stage 3 chronic kidney disease (HCC) [N18.3, D63.1] Order(s):ADMIN OF INFLUENZA VACCINE [[id number]] Order #: [id number]: 1 INFLUENZA SEASONAL HIGH DOSE AGE 65+ [[id number]] Order #: [id number] ferrous sulfate 325 mg (65 mg iron) EC tabletTakes 1.5 tablets twice daily.Disp: Rfl: BASIC METABOLIC PNL [SQBMP] Order #: [id number] FUTURE TSH BLD [[facility]] Order #: [id number] FUTURE Prescriptions as of 05/07/2018 Sig: FERROUS SULFATE 325 MG (65 MG* Takes 1.5 tablets twice daily. LANTUS SOLOSTAR U-100 INSULIN* Inject 35 Units subcutaneousl* HUMALOG KWIKPEN (U-100) INSUL* Inject 15 Units subcutaneousl* VENLAFAXINE 37.5 MG TABLET TAKE ONE TABLET BY MOUTH TWIC* ACCU-CHEK GUIDE STRIPS test blood sugar(s) FOUR TIME* LEVOTHYROXINE 50 MCG TABLET TAKE ONE TABLET BY MOUTH EVER* ATORVASTATIN 20 MG TABLET Take 1 tablet by mouth once d* TRAZODONE 150 MG TABLET TAKE 1 OR 2 TABLETS BY MOUTH * PANTOPRAZOLE 40 MG TABLET,DEL* Take 1 tablet by mouth once d* FOLIC ACID 1 MG TABLET Take 1 tablet by mouth once d* POTASSIUM CHLORIDE ER 20 MEQ * Take 1 tablet by mouth once d* WARFARIN 2.5 MG TABLET Take 1 tablet by mouth. From * LANCETS Use as instructed 3 to 4 TIME* BLOOD-GLUCOSE METER, DRUM-TYP* Accu-Check Compact Plus Meter* HYDROCODONE 5 MG-ACETAMINOPHE* Take 1 tablet by mouth every * MAGNESIUM 250 MG TABLET Take 250 mg by mouth once lynette* PEN NEEDLE, DIABETIC 31 GAUGE* USE ONE NEEDLE FOR EACH DOSE FUROSEMIDE 20 MG TABLET Take 20 mg by mouth every oth* CYANOCOBALAMIN (VIT B-12) 1,0* Take 1 tablet by mouth once d* ALBUTEROL SULFATE HFA 90 MCG/* Inhale 2 Puffs as instructed * TIOTROPIUM BROMIDE 2.5 MCG/AC* Inhale 2 Puffs as instructed * DOCUSATE SODIUM 100 MG CAPSULE Take 1 capsule by mouth twice* CHOLECALCIFEROL (VITAMIN D3) * Take 500 Units by mouth once * Medication notes this encounter LANTUS SOLOSTAR U-100 INSULIN 100 UNIT/ML (3 ML) SUBCUTANEOUS PEN >> Marta Alba LPN 05/07/2018 9:25 AM >> MARTA ALBA LPN SunMay 07, 2018 9:25 AM Patient waiting until blood sugar is over 200 before taking. ACCU-CHEK GUIDE STRIPS >> Marta Alba LPN 05/07/2018 9:22 AM >> MARTA ALBA LPN rc May 07, 2018 9:22 AM Patient testing blood sugar(s) x2 daily. Problem List As Of Date 05/07/2018 Noted Resolved Asthma [J45.909] INVALID FOR* ESOPHAGEAL REFLUX [K21.9] INVALID FOR* Mixed hyperlipidemia [E78.2] INVALID FOR* LUMBAGO [M54.5] INVALID FOR* Osteoarthrosis, unspecified whether generalized* Fibromyalgia [M79.7] More... 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 Heart Valve Replaced by Other Means [Z95.4] INVALID FOR* More... Cardiac pacemaker in situ [Z95.0] INVALID FOR* More... Acute kidney failure with lesion of tubular nec*INVALID FOR*01/10/2013 More... 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 Hypothyroidism [E03.9] INVALID FOR* THROMBOCYTOPENIA NOS [D69.6] INVALID FOR* COPD (chronic obstructive pulmonary disease) (H*INVALID FOR* Chronic kidney disease, stage III (moderate) [N*INVALID FOR* PSVT (paroxysmal supraventricular tachycardia) *INVALID FOR*05/09/2012 More... Iron deficiency [E61.1] INVALID FOR*02/03/2013 Anemia in chronic renal disease [N18.9, D63.1] INVALID FOR* Infected cat bite [W55.01XA] INVALID FOR*05/09/2012 Atrial fibrillation (HCC) [I48.91] INVALID FOR* Adenomatous colon polyp [D12.6] INVALID FOR* Tobacco use disorder [F17.200] INVALID FOR* Cholelithiasis [K80.20] INVALID FOR*03/04/2014 Unspecified pleural effusion, loculated, right *INVALID FOR*03/04/2014 Dizziness and giddiness [R42] INVALID FOR* Carotid artery disease without cerebral infarct*INVALID FOR* Other specified hypotension [I95.89] INVALID FOR* Transfusion history [Z92.89] INVALID FOR* More... Sleep apnea [G47.30] Moderate to severe pulmonary hypertension (HCC)*INVALID FOR* H/O mitral valve replacement [Z95.2] INVALID FOR* Type 2 diabetes mellitus with stage 3 chronic k*INVALID FOR* Vitamin D deficiency [E55.9] INVALID FOR* Anticoagulant long-term use [Z79.01] INVALID FOR* Iron deficiency anemia due to chronic blood los*INVALID FOR* Gastrointestinal hemorrhage [K92.2] INVALID FOR* Acute blood loss anemia [D62] INVALID FOR* Malnutrition of mild degree (HCC) [E44.1] INVALID FOR* GIB (gastrointestinal bleeding) [K92.2] INVALID FOR* Thrombocytopenia (HCC) [D69.6] DM type 2 (diabetes mellitus, type 2) (HCC) [E1*INVALID FOR* More... CHF (congestive heart failure) (HCC) [I50.9] INVALID FOR* More... Chronic hypotension [I95.89] Visit Notes: >> Marta Gold May 07, 2018 9:26 AM Status: Signed Influenza Vaccine Documentation: ? Patient is identified by name and date of : Yes ? Patient is older than 6 months of age: Yes ? Patient denies a severe allergy to any vaccine component or to a previous dose of influenza vaccine: Yes FOR EGG ALLERGY CONCERNS, REFER TO PROVIDER. ? Denies allergy to gelatin, formaldehyde, thimerosol :Yes ? Patient is afebrile and not moderately or severely ill: Yes ? Does the patient have a history of Guillain [employer] Syndrome (a severe paralytic illness): No ? Denies bone marrow transplant prior 6 months or solid organ transplant prior 3 months: Yes ? Denies a history of fainting after a prior injection or medical procedure? Yes If patient has fainted in the past, the CDC recommends sitting or lying down for 15 minutes after the vaccination. ? VIS sheet provided: Yes ? See Immunization Form in [facility] for details of immunizations administered today. If patient reports dizziness, vision changes or ringing in the ears post vaccination ? please have patient sit or lie down for 15 minutes. Prescriptions ordered this encounter Disp Refills Start End FERROUS SULFATE 325 MG (65 MG IRON) * 05/07/2018 Class: OTC Sig: Takes 1.5 tablets twice daily. Medications Discontinued During This Encounter COMPOUNDED PRESCRIPTION 1 Ea* 0 01/13/2018 05/07/2018 Class: Print RX Sig: CBC and PT/INR Due: 01/16/2018 and 01/21/2018 Dx: GI Bleeding, Chronic Coumadin Therapy. Anemia Results to Dr. Kodak Muñoz Disc: Reason for discontinue is not on file. peg 3350-Electrolytes (GOLYTELY) 236* 4 L 0 02/05/2018 05/07/2018 Sig: Refer to printed patient instructions that will be mailed to you. Patient not taking: Reported on 05/07/2018 Disc: Reason for discontinue is not on file. ferrous sulfate 325 mg (65 mg iron) * 0 05/25/2016 05/07/2018 Class: Med Update Route: ORAL Sig: Take 1 tablet by mouth three times daily with meals. Patient taking differently: Take 1.5 tablets by mouth twice daily with meals. Disc: Reason for discontinue is not on file. Disposition: Return in about 6 months (around 11/04/2018). Follow-up and Disposition History Recorded Encounter Status:Closed by KODAK MUÑOZ MD on 05/07/18 PROTHROMBIN TIME W/INR Collected: 05/03/2018 Status: F Source: [place] 7:49 AM [facility] REPOSITORY TYPE CODE TESTS RESULT OUT OF RANGE REFERENCE UNITS LAB L300.4150 11.7-14.9 SECONDS High PROTIME 26.5 LAB L300.4200 Normal INR 2.4 Performed By: #### L300.3900 #### [facility] [address] [place], [address] [place] ABS GR + CBC Collected: 05/02/2018 Status: F Source: [place] 9:19 AM [facility] [place] REPOSITORY TYPE CODE TESTS RESULT OUT OF REFERENCE UNITS RANGE LAB WWBC 3.70-11.00 k/uL Low [place] WBC 2.98 LAB WRBC 3.90-5.20 m/uL Low [place] RBC 2.55 LAB WHGB 11.5-15.5 g/dL Low [place] Hemoglobin 7.8 LAB WHCT 36.0-46.0 % Low [place] Hematocrit 25.4 LAB WMCV 80.0-100.0 fL [place] MCV 99.6 LAB WMCH 26.0-34.0 pg [place] MCH 30.6 LAB WMCHC 30.5-36.0 g/dL [place] MCHC 30.7 LAB WRDW 11.5-15.0 % [place] High RDW 16.6 LAB WPLT 150-400 k/uL Low [place] Platelet Cnt 80 LAB WMPV 9.0-12.7 fL [place] MPV 11.2 Result Comment: Test performed at: [facility], [address] [place] [address]. LAB ABGRAN 1.45-7.50 k/uL Absol Gran 2.40 Count HEMOGLOBIN A1C Collected: 05/02/2018 Status: F Source: [place] 9:18 AM [facility] REPOSITORY TYPE CODE TESTS RESULT OUT OF REFERENCE UNITS RANGE LAB HGBA1C 4.3-5.6 % Hemoglobin A1c 5.5 LAB HBA0 mg/dL Est. Average Glucose 111 Result Comment: eAG: (Estimated average glucose) is a calculated value from HgbA1c and is loss control representative of the average blood glucose level in the last 2-3 month period. Performed By: #### HBA1C #### [facility] [address] [place], [place] [address] TYPE AND SCREEN Collected: 05/02/2018 Status: F Source: [place] 9:15 AM [facility] REPOSITORY Order Comment: PRETRANSFUSION HGB = 7.8 HCT = PERFORMED AT [facility] CMV NEG?* N Give When? 05/03/18 Irradiated? N Leukodepleted? Y Reason for Type AND Screen/Red Cells: HEMORRHAGE, GI BLEED TYPE CODE TESTS RESULT OUT OF RANGE REFERENCE UNITS LAB B10.0800 A Normal BLOOD TYPE GEL POSITIVE LAB B100.4000 Normal Antibody NEGATIVE Screen Performed By: #### B101.7450 #### [facility] [address] [place], [address] Collected: 05/02/2018 Status: F Source: [place] 9:15 AM [facility] REPOSITORY TYPE CODE TESTS RESULT OUT OF REFERENCE UNITS RANGE LAB U100.0000 [id number] TRANSFUSED PRODUCT: T AND S with Crossmatch, Red Cells COUNT: 2 Performed By: #### U100.0000 #### [facility] - refer to report for specific site PROTHROMBIN TIME W/INR Collected: 04/25/2018 Status: F Source: [place] 12:51 PM [facility] REPOSITORY TYPE CODE TESTS RESULT OUT OF REFERENCE UNITS RANGE LAB L300.4150 11.7-14.9 SECONDS High PROTIME 38.7 LAB L300.4200 High alert INR 3.9 Result Comment: CRITICAL VALUE VERIFIED. CALLED TO JUDY 04/25/18 1410 Hair Mann. RESULTS READ BACK BY SAME. Performed By: #### L300.3900 #### [facility] [address] [place], [address] TYPE AND SCREEN Collected: 04/25/2018 Status: F Source: [place] 8:28 AM [facility] REPOSITORY Order Comment: PRETRANSFUSION HGB = 7.9 HCT = PERFORMED AT [facility] CMV NEG?* Y Give When? [id number] Irradiated? N Leukodepleted? Y Reason for Type AND Screen/Red Cells: ANEMIA TYPE CODE TESTS RESULT OUT OF RANGE REFERENCE UNITS LAB B10.0800 A Normal BLOOD TYPE GEL POSITIVE LAB B100.4000 Normal Antibody NEGATIVE Screen Performed By: #### B101.7450 #### [facility] [address] [place], [place], [address] RC Collected: 04/25/2018 Status: F Source: [place] 8:28 AM [facility] REPOSITORY TYPE CODE TESTS RESULT OUT OF REFERENCE UNITS RANGE LAB U100.0000 [id number] TRANSFUSED PRODUCT: T AND S with Crossmatch, Red Cells COUNT: 2 Performed By: #### U100.0000 #### [facility] - refer to report for specific site [place] ABS GR + CBC Collected: 04/25/2018 Status: F Source: [place] 8:28 AM [facility] REPOSITORY TYPE CODE TESTS RESULT OUT OF REFERENCE UNITS RANGE LAB WWBC 3.70-11.00 k/uL Low [place] WBC 3.28 LAB WRBC 3.90-5.20 m/uL Low [place] RBC 2.58 LAB WHGB 11.5-15.5 g/dL Low [place] Hemoglobin 7.9 LAB WHCT 36.0-46.0 % Low [place] Hematocrit 25.4 LAB WMCV 80.0-100.0 fL [place] MCV 98.4 LAB WMCH 26.0-34.0 pg [place] MCH 30.6 LAB WMCHC 30.5-36.0 g/dL [place] MCHC 31.1 LAB WRDW 11.5-15.0 % [place] High RDW 16.8 LAB WPLT 150-400 k/uL Low [place] Platelet Cnt 76 LAB WMPV 9.0-12.7 fL [place] MPV 12.0 Result Comment: Test performed at: [facility] [place], [address] [place] [address]. LAB ABGRAN 1.45-7.50 k/uL Absol Gran 2.66 Count CNPTOUTREACH Observed: 04/23/2018 Status: COMPLETED Source: [place] 12:00 AM [facility] REPOSITORY Patient Outreach ([facility]) EMANI LOUIS ([id number]) 1940 F Date Time Provider Department 04/23/18 KODAK MUÑOZ [facility] During your visit today, we recorded the following information about you: Allergies As of Date: 04/23/2018 Noted Allergy Reaction AMBIEN (ZOLPIDEM TARTRATE) 09/06/2005 16 - Unknown ATIVAN (LORAZEPAM) 09/06/2005 14 - Other: See Comments Comments: just didn't work MOBIC (MELOXICAM) 09/06/2005 16 - Unknown PAMELOR (NORTRIPTYLINE HCL) 09/06/2005 16 - Unknown Date Reviewed: 03/22/2018 Reviewed by: Shirin Barnes - Fully Assessed Visit Diagnosis:Medication management [Z79.899] Order(s):HGB A1C [[id number]] Order #: [id number] FUTURE Prescriptions as of 04/23/2018 Sig: VENLAFAXINE 37.5 MG TABLET TAKE ONE TABLET BY MOUTH TWIC* ACCU-CHEK GUIDE STRIPS test blood sugar(s) FOUR TIME* LEVOTHYROXINE 50 MCG TABLET TAKE ONE TABLET BY MOUTH EVER* X PEG 3350-ELECTROLYTES 236 GRA* Refer to printed patient inst* Patient not taking: Reported on 05/07/2018 ATORVASTATIN 20 MG TABLET Take 1 tablet by mouth once d* TRAZODONE 150 MG TABLET TAKE 1 OR 2 TABLETS BY MOUTH * X COMPOUNDED PRESCRIPTION CBC and PT/INR Due: 01/16/2018* PANTOPRAZOLE 40 MG TABLET,DEL* Take 1 tablet by mouth once d* X FOLIC ACID 1 MG TABLET Take 1 tablet by mouth once d* POTASSIUM CHLORIDE ER 20 MEQ * Take 1 tablet by mouth once d* WARFARIN 2.5 MG TABLET Take 1 tablet by mouth. From * LANCETS Use as instructed 3 to 4 TIME* BLOOD-GLUCOSE METER, DRUM-TYP* Accu-Check Compact Plus Meter* HYDROCODONE 5 MG-ACETAMINOPHE* Take 1 tablet by mouth every * MAGNESIUM 250 MG TABLET Take 250 mg by mouth once lynette* X INSULIN GLARGINE (U-100) 100 * Inject 35 Units subcutaneousl* X INSULIN LISPRO (U-100) 100 UN* Inject 15 Units subcutaneousl* PEN NEEDLE, DIABETIC 31 GAUGE* USE ONE NEEDLE FOR EACH DOSE FUROSEMIDE 20 MG TABLET Take 20 mg by mouth every oth* CYANOCOBALAMIN (VIT B-12) 1,0* Take 1 tablet by mouth once d* X FERROUS SULFATE 325 MG (65 MG* Take 1 tablet by mouth three * Patient taking differently: Take 1.5 tablets by mouth twi* ALBUTEROL SULFATE HFA 90 MCG/* Inhale 2 Puffs as instructed * TIOTROPIUM BROMIDE 2.5 MCG/AC* Inhale 2 Puffs as instructed * DOCUSATE SODIUM 100 MG CAPSULE Take 1 capsule by mouth twice* CHOLECALCIFEROL (VITAMIN D3) * Take 500 Units by mouth once * Problem List As Of Date 04/23/2018 Noted Resolved Asthma [J45.909] INVALID FOR* ESOPHAGEAL REFLUX [K21.9] INVALID FOR* Mixed hyperlipidemia [E78.2] INVALID FOR* LUMBAGO [M54.5] INVALID FOR* Osteoarthrosis, unspecified whether generalized* Fibromyalgia [M79.7] More... 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 Heart Valve Replaced by Other Means [Z95.4] INVALID FOR* More... Cardiac pacemaker in situ [Z95.0] INVALID FOR* More... Acute kidney failure with lesion of tubular nec*INVALID FOR*01/10/2013 More... 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 Hypothyroidism [E03.9] INVALID FOR* THROMBOCYTOPENIA NOS [D69.6] INVALID FOR* COPD (chronic obstructive pulmonary disease) (H*INVALID FOR* Chronic kidney disease, stage III (moderate) [N*INVALID FOR* PSVT (paroxysmal supraventricular tachycardia) *INVALID FOR*05/09/2012 More... Iron deficiency [E61.1] INVALID FOR*02/03/2013 Anemia in chronic renal disease [N18.9, D63.1] INVALID FOR* Infected cat bite [W55.01XA] INVALID FOR*05/09/2012 Atrial fibrillation (HCC) [I48.91] INVALID FOR* Adenomatous colon polyp [D12.6] INVALID FOR* Tobacco use disorder [F17.200] INVALID FOR* Cholelithiasis [K80.20] INVALID FOR*03/04/2014 Unspecified pleural effusion, loculated, right *INVALID FOR*03/04/2014 Dizziness and giddiness [R42] INVALID FOR* Carotid artery disease without cerebral infarct*INVALID FOR* Other specified hypotension [I95.89] INVALID FOR* Transfusion history [Z92.89] INVALID FOR* More... Sleep apnea [G47.30] Moderate to severe pulmonary hypertension (HCC)*INVALID FOR* H/O mitral valve replacement [Z95.2] INVALID FOR* Type 2 diabetes mellitus with stage 3 chronic k*INVALID FOR* Vitamin D deficiency [E55.9] INVALID FOR* Anticoagulant long-term use [Z79.01] INVALID FOR* Iron deficiency anemia due to chronic blood los*INVALID FOR* Gastrointestinal hemorrhage [K92.2] INVALID FOR* Acute blood loss anemia [D62] INVALID FOR* Malnutrition of mild degree (HCC) [E44.1] INVALID FOR* GIB (gastrointestinal bleeding) [K92.2] INVALID FOR* Thrombocytopenia (HCC) [D69.6] DM type 2 (diabetes mellitus, type 2) (HCC) [E1*INVALID FOR* More... CHF (congestive heart failure) (HCC) [I50.9] INVALID FOR* More... Chronic hypotension [I95.89] Encounter Status:Closed by [employer], PRODUSER on 05/24/18 PROTHROMBIN TIME W/INR Collected: 04/18/2018 Status: F Source: [place] 10:29 AM [facility] REPOSITORY TYPE CODE TESTS RESULT OUT OF REFERENCE UNITS RANGE LAB L300.4150 11.7-14.9 SECONDS High PROTIME 37.2 LAB L300.4200 High alert INR 3.7 Result Comment: CRITICAL VALUE VERIFIED. CALLED TO JUDY 04/18/18 1143 Kwame Soin. RESULTS READ BACK BY JUDY . Performed By: #### L300.3900 #### [facility] [address] [place], [address] [place] ABS GR + CBC Collected: 04/18/2018 Status: F Source: [place] 9:24 AM [facility] [place] REPOSITORY TYPE CODE TESTS RESULT OUT OF REFERENCE UNITS RANGE LAB WWBC 3.70-11.00 k/uL [place] WBC 3.92 LAB WRBC 3.90-5.20 m/uL Low [place] RBC 2.70 LAB WHGB 11.5-15.5 g/dL Low [place] Hemoglobin 8.2 LAB WHCT 36.0-46.0 % Low [place] Hematocrit 26.0 LAB WMCV 80.0-100.0 fL [place] MCV 96.3 LAB WMCH 26.0-34.0 pg [place] MCH 30.4 LAB WMCHC 30.5-36.0 g/dL [place] MCHC 31.5 LAB WRDW 11.5-15.0 % [place] High RDW 16.3 LAB WPLT 150-400 k/uL Low [place] Platelet Cnt 75 LAB WMPV 9.0-12.7 fL [place] MPV 11.5 Result Comment: Test performed at: [facility], [address] [place] [address]. LAB ABGRAN 1.45-7.50 k/uL Absol Gran 3.27 Count TYPE AND SCREEN Collected: 04/18/2018 Status: P Source: [place] 9:20 AM [facility] REPOSITORY Order Comment: PRETRANSFUSION HGB = 8.2 HCT = 26.0 PERFORMED AT [facility] CMV NEG?* N Give When? 04/19/2018 Irradiated? N Leukodepleted? Y Reason for Type AND Screen/Red Cells: ANEMIA TYPE CODE TESTS RESULT OUT OF RANGE REFERENCE UNITS LAB B10.0800 A Normal BLOOD TYPE GEL POSITIVE LAB B100.4000 Normal Antibody NEGATIVE Screen Performed By: #### B101.7450 #### [facility] [address] [place], [place], [address] TYPE AND SCREEN Collected: 04/18/2018 Status: P Source: [place] 9:20 AM [facility] REPOSITORY Order Comment: PRETRANSFUSION HGB = 8.2 HCT = 26.0 PERFORMED AT [facility] CMV NEG?* N Give When? 04/19/2018 Irradiated? N Leukodepleted? Y Reason for Type AND Screen/Red Cells: ANEMIA TYPE CODE TESTS RESULT OUT OF RANGE REFERENCE UNITS LAB B10.0800 A Normal BLOOD TYPE GEL POSITIVE LAB B100.4000 Normal Antibody NEGATIVE Screen Performed By: #### B101.7450 #### [facility] [address] [place], [place], [address] TYPE AND SCREEN Collected: 04/18/2018 Status: F Source: [place] 9:20 AM [facility] REPOSITORY Order Comment: PRETRANSFUSION HGB = 8.2 HCT = 26.0 PERFORMED AT [facility] CMV NEG?* N Give When? 04/19/2018 Irradiated? N Leukodepleted? Y Reason for Type AND Screen/Red Cells: ANEMIA TYPE CODE TESTS RESULT OUT OF RANGE REFERENCE UNITS LAB B10.0800 A Normal BLOOD TYPE GEL POSITIVE LAB B100.4000 Normal Antibody NEGATIVE Screen Performed By: #### B101.7450 #### [facility] [address] [place], [address] RC Collected: 04/18/2018 Status: F Source: [place]IM[place] 9:20 AM [facility] REPOSITORY TYPE CODE TESTS RESULT OUT OF REFERENCE UNITS RANGE LAB U100.0000 [id number] TRANSFUSED PRODUCT: T AND S with Crossmatch, Red Cells COUNT: 2 Performed By: #### U100.0000 #### [facility] - refer to report for specific site TYPE AND SCREEN Collected: 04/11/2018 Status: F Source: KIM[place] 9:02 AM [facility] REPOSITORY Order Comment: PRETRANSFUSION HGB = 8.4 HCT = 27.3 PERFORMED AT [facility] CMV NEG?* N Give When? 04/12/18 @0800 Irradiated? N Leukodepleted? Y Reason for Type AND Screen/Red Cells: ANEMIA TYPE CODE TESTS RESULT OUT OF RANGE REFERENCE UNITS LAB B10.0800 A Normal BLOOD TYPE GEL POSITIVE LAB B100.4000 Normal Antibody NEGATIVE Screen Performed By: #### B101.7450 #### [facility] [address] [place] [address] [place], [address] RC Collected: 04/11/2018 Status: F Source: KIMBERLY 9:02 AM [facility] REPOSITORY TYPE CODE TESTS RESULT OUT OF REFERENCE UNITS RANGE LAB U100.0000 [id number] TRANSFUSED PRODUCT: T AND S with Crossmatch, Red Cells COUNT: 2 Performed By: #### U100.0000 #### [facility] - refer to report for specific site [place] ABS GR + CBC Collected: 04/11/2018 Status: F Source: [place] 9:02 AM [facility] REPOSITORY TYPE CODE TESTS RESULT OUT OF REFERENCE UNITS RANGE LAB WWBC 3.70-11.00 k/uL Low [place] WBC 3.33 LAB WRBC 3.90-5.20 m/uL Low [place] RBC 2.76 LAB WHGB 11.5-15.5 g/dL Low [place] Hemoglobin 8.4 LAB WHCT 36.0-46.0 % Low [place] Hematocrit 27.3 LAB WMCV 80.0-100.0 fL [place] MCV 98.9 LAB WMCH 26.0-34.0 pg [place] MCH 30.4 LAB WMCHC 30.5-36.0 g/dL [place] MCHC 30.8 LAB WRDW 11.5-15.0 % [place] High RDW 16.0 LAB WPLT 150-400 k/uL Low [place] Platelet Cnt 83 LAB WMPV 9.0-12.7 fL [place] MPV 11.2 Result Comment: Test performed at: [facility], [address] [place] [address]. LAB ABGRAN 1.45-7.50 k/uL Absol Gran 2.71 Count CARDIOLOGY VISIT Observed: 04/09/2018 Status: F Source: [place]IM[place] REPORT 10:53 AM [facility] REPOSITORY [facility] [address] [place] [address] OFFICE VISIT Date of Service: 04/09/18 MR#: [id number] Acct: [id number] Name: EMANI LOUIS Rep #: [id number] : 1940 Provider: Eddie Mendoza MD Age/Sex: 77/F Location: [facility] [place] [place] Status: Signed HPI HPI Chief Complaint: Follow up visit Details: EMANI LOUIS, is a 77 F who presents to the office today for a follow-up visit as well as posthospitalization visit. She is a lady with a history of coronary artery disease, mitral valve disease status post replacement with a [address] Alex[employer] Med[employer] mechanical valve. She also has a history of chronic persistent atrial fibrillation and repeated anemias for which she is receiving recurrent blood transfusions as well as evaluations. You do remember that in November 2017 she had capsule endoscopy which demonstrated nonbleeding duodenal angina ectasia, she also had diverticulosis of the sigmoid colon which was treated with argon plasma coagulation. In 2016 she had had a GI radionuclide scan which demonstrated no focal areas, in October 2016 she had an EGD which demonstrated normal esophagus stomach and duodenum. She was recently in the emergency room where she was noted to have a hemoglobin of 4.5, an INR of 19 and she was treated with fluid boluses packed red blood cell transfusion and transferred to [facility]. She did apparently undergo a double balloon enteroscopy in 2018. As part of her workup she also had a transthoracic echo in December 2017 which demonstrated the left ventricular size being small estimated ejection fraction of 58%. The right ventricle was dilated with pacer wires noted in the right ventricle and the right ventricular systolic pressure was estimated at 73 mmHg consistent with moderately severe pulmonary hypertension. The left atrium was moderately dilated the mitral valve had a peak gradient of 25 mmHg and a mean gradient of 12 mmHg. She returns today for follow-up visit and says that she is overall doing well, she has had some dizziness as well as some shortness of breath and unfortunately she continues to abuse tobacco products. She has lost about 30 pounds in weight she still looks pale but her physical exam demonstrates crisp prosthetic heart sounds and an irregular regular heart rhythm. Intake Vital Signs04/09/18 Height 5 ft 2 in 04/09/18 Weight: 131 lb 04/09/18 Body Mass Index (BMI) 23.9 04/09/18 Blood Pressure 88/60 04/09/18 Blood Pressure Location Lt brachial Intake Visit Reasons: 4 M FU (rejoshua Mendoza); Natali @ 1pm Lay Out Helper Required: No Accompanied by: none Is patient in pain?: No Allergies amiodarone Adverse Reaction (Verified 04/09/18 10:36) vomiting, poor balance, dizziness digoxin Adverse Reaction (Verified 04/09/18 10:36) nausea, dry heaves lorazepam [From Ativan] Adverse Reaction (Verified 04/09/18 10:36) Unknown meloxicam [From Mobic] Adverse Reaction (Verified 04/09/18 10:36) Unknown nortriptyline HCl [From Pamelor] Adverse Reaction (Verified 04/09/18 10:36) Unknown zolpidem tartrate [From Ambien] Adverse Reaction (Verified 04/09/18 10:36) Unknown Medications Atorvastatin Calcium [Lipitor] 20 mg PO QHS 05/22/13 [History Confirmed 04/09/18] Cholecalciferol (Vitamin D3) [Vitamin D] 1 cap PO DAILY 05/22/13 [History Confirmed 04/09/18] Levothyroxine [Synthroid] 50 mcg PO DAILY 04/01/15 [History Confirmed 04/09/18] Albuterol Inhaler [Ventolin Hfa] 2 puff INHALATION Q6H PRN PRN 04/02/15 [History Confirmed 04/09/18] Ferrous Sulfate 325 mg PO TID 04/02/15 [History Confirmed 04/09/18] Hydrocodone/Acetaminophen [Hydrocodone-Acetamin 5-325 mg] 0.5 tab PO Q8H PRN PRN 04/02/15 [History Confirmed 04/09/18] Insulin Lispro [Humalog KwikPen] 0 unit SQ BIDCM 04/02/15 [History Confirmed 04/09/18] Folic Acid 1 mg PO DAILY@0800 04/30/15 [History Confirmed 04/09/18] Insulin Glargine [Lantus SoloStar Pen] 35 - 45 units SC QHS 04/30/15 [History Confirmed 04/09/18] Tiotropium [place] [Spiriva 18 MCG] 2 puff INHALATION DAILY PRN 06/03/15 [History Confirmed 04/09/18] Cyanocobalamin (Vitamin B-12) [Vitamin B12] 2,500 mcg PO DAILY 06/10/16 [History Confirmed 04/09/18] Docusate Sodium [Colace] 200 mg PO BID PRN PRN 09/08/16 [History Confirmed 04/09/18] Fluticasone 0.05% [Flonase Nasal [place]] 2 spray NASAL DAILY PRN 09/08/16 [History Confirmed 04/09/18] Trazodone HCl 50 mg PO QHS PRN 03/16/17 [History Confirmed 04/09/18] Venlafaxine HCl [Effexor] 37.5 mg PO BID 03/30/17 [History Confirmed 04/09/18] Magnesium 250 mg PO DAILY 05/24/17 [History Confirmed 04/09/18] pantoprazole 40 mg tablet,delayed release 40 mg PO BID 30 Days #60 tab 11/23/17 [History Confirmed 04/09/18] umeclidinium 62.5 mcg-vilanterol 25 mcg/actuation powdr for inhalation 1 inh INHALATION Q24H 11/27/17 [History Confirmed 04/09/18] Warfarin Sodium [Coumadin] 2.5 mg PO DAILY 01/07/18 [History Confirmed 04/09/18] potassium chloride ER 20 mEq tablet,extended release(part/cryst) 20 meq PO DAILY #90 tab 01/24/18 [Rx Confirmed 04/09/18] furosemide 20 mg tablet 20 mg PO .qod tab 04/09/18 [History] PFSH Medical History Tachycardia-bradycardia syndrome (Chronic) Typical atrial flutter (Chronic) Hypotension (Chronic) Secondary pulmonary hypertension (Chronic) Carotid bruit (Chronic) COPD (chronic obstructive pulmonary disease) (Chronic) Paroxysmal atrial fibrillation (Chronic) Sick sinus syndrome (Chronic) care home current use of anticoagulant (Chronic) Acquired thrombocytopenia (Chronic) Type II diabetes mellitus (Chronic) History of hypothyroidism (Chronic) HLD (hyperlipidemia) (Chronic) Ascites (Chronic) GERD (gastroesophageal reflux disease) (Chronic) Pericardial effusion (Chronic) Pleural effusion (Chronic) PVC's (premature ventricular contractions) (Inactive) Pleural effusion, not elsewhere classified (Inactive) Surgical History Cardiac pacemaker in situ (Chronic) History of mitral valve replacement with mechanical valve (Resolved) History of incision of pericardium (Chronic) Family History Mother Cancer lung and renal Social History Smoking Status: Current every day smoker alcohol intake: never substance use type: does not use caffeine: Yes Type: carbonated beverages what type of physical activity do you participate in: none seatbelt use: always do you feel safe at home: Yes ROS Const Const: Negative for fatigue, weakness, night sweats, excessive sweating, frequent falls, headache(s) or daytime sleepiness Eyes Eyes: Negative for loss of peripheral vision, transient loss of vision, blind spots, double vision or blurry vision ENT ENT: Positive for dizziness; negative for headache(s), balance problems, Nosebleed/epistaxis, tongue swelling or lip swelling Cardio Chest Pain: No Palpitations: No Edema: None Muscle aches with walking: None Resp Respiratory: Positive for SOB at rest and SOB with activity; negative for SOB orthopnea\SOB lying down, Cough or paroxysmal nocturnal dyspnea GI GI: Negative nausea, vomiting, heartburn, black,tarry stools or bright, red blood in stools : Negative for hematuria Musc Musc: Negative for balance problems, muscle aches/ myalgia, muscle weakness or joint pain Skin Skin: Negative non-healing lesions, unusual bruising or rash Neuro Neuro: Positive for dizziness and lightheadedness; negative for weakness, frequent falls, headache(s), double vision, orthostatic symptoms, blurry vision or lack of coordination [place] Hematologic/Lymphatic: Negative for easy bruising or easy bleeding Endo Endo: Negative for fatigue, excessive sweating, cold intolerance, heat intolerance, increased thirst/drinking or hair loss Psych Psych: Negative for anxiety or depression Allergy Allergy/Immunology: Negative for throat swelling, Negative for tongue swelling, Negative for hives, Negative for rash, Negative for lip swelling Cardiology Exam Const Appearance: cooperative, healthy appearing, well developed, well groomed and no acute distress Nutritional Appearance: well nourished and average body habitus Orientation: alert, awake and oriented x3 Head Head: normal to inspection, normocephalic and atraumatic Ears: hearing grossly normal bilaterally and external ears normal Nose: external nose normal, nasal mucous membranes and turbinates normal, nares normal, septum normal, no nasal discharge Face and Sinus: face symmetric Mouth: oral mucosae normal, tongue normal, oropharynx normal and moist mucous membranes Teeth and gingiva: dentition normal Throat: posterior oropharynx normal, tonsils normal and uvula midline Eyes General: appearance normal, both eyes and all related structures Eyelids: eyelids normal Conjunctivae: conjunctivae normal Pupils: PERRL, normal by confrontation and accommodation normal EOM: EOM intact bilaterally Neck Neck: normal visual inspection, trachea midline and no JVD JVD: +5 Carotids: normal carotid upstroke and bounding pulses Chest Chest inspection: normal inspection of the chest, symmetric chest movement and normal respiratory effort Auscultation: Bilateral: Clear to Auscultation Cardio Palpation: normal PMI Rhythm: irregular rhythm Heart sounds: crisp prosthetic S1 and crisp prosthetic S2 Murmur: Grade 1/6 and early systolic GI GI: normal to inspection, soft, no hepatosplenomegaly and bowel sounds present Neuro General: alert, awake, oriented x3, no focal sensory deficit, gait normal and moves all extremities Skin Skin: no rashes or lesions noted Extremities Pulses: Normal: Right Femoral Pulse, Left Femoral Pulse, Right Dorsalis Pedis Pulse, Left Dorsalis Pedis Pulse, Right Posterior Tibial Pulse, Left Posterior Tibial Pulse, Right Radial Pulse, Left Radial Pulse Lower Extremity Edema: None: Bilateral Musculoskel Musculoskeletal: No joint tenderness Psych Psychological: normal affect Assessment AND Plan 1. History of mitral valve replacement with mechanical valve Z95.2 #[address] Alex mechanical valve Plan She does have a prosthetic mitral valve as noted above her last echocardiogram corroborates with her previous echocardiograms which have demonstrated severe pulmonary hypertension. The plan will be to continue maintaining her INR at 2.5-3.5. She will also continue with antibiotic prophylaxis. 2. Paroxysmal atrial fibrillation I48.0 Plan She does have a history of paroxysmal atrial fibrillation for which she remains on Coumadin. We will continue to maintain her INR between 2.5 and 3.5 as per her valve recommendations. 3. Secondary pulmonary hypertension Plan She does have a history of secondary pulmonary hypertension likely secondary to her mitral valve disease. She remains on some diuretics to be able to keep her pressures at around 70 mmHg. She appears to feel quite well when she is at this level. 4. Cardiac pacemaker in situ Z95.0 Plan She is status post permanent pacemaker implantation. We will continue to follow her in our pacemaker clinic. She has had periods of paroxysmal atrial fibrillation. Her battery longevity is less than a year. And at the appropriate time her battery change out would be undertaken. 5. Pure hypercholesterolemia E78.00 Plan She does have a history of hyperlipidemia I will continue to monitor her lipid levels. She is on medium intensity statin. 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) Coding Level of Care Code Off vis,est,level 4 Diagnoses History of mitral valve replacement with mechanical valve Z95.2 Paroxysmal atrial fibrillation I48.0 Secondary pulmonary hypertension Cardiac pacemaker in situ Z95.0 Pure hypercholesterolemia E78.00 Hyperlipidemia type: pure hypercholesterolemia Coding Level of Care Code Off vis,est,level 4 Diagnoses History of mitral valve replacement with mechanical valve Z95.2 Paroxysmal atrial fibrillation I48.0 Secondary pulmonary hypertension Cardiac pacemaker in situ Z95.0 Pure hypercholesterolemia E78.00 Hyperlipidemia type: pure hypercholesterolemia 04/09/18 1053 <Electronically signed by Eddie Mendoza MD> Date Eddie Mendoza MD Cosigner Signature: Date (if applicable) CC: [employer] RUEDA ABS GR + CBC Collected: 04/04/2018 Status: F Source: VO 9:03 AM [facility] REPOSIT[facility] TYPE CODE TESTS RESULT OUT OF REFERENCE UNITS RANGE LAB WWBC 3.70-11.00 k/uL Low [place] WBC 2.77 LAB WRBC 3.90-5.20 m/uL Low [place] RBC 3.26 LAB WHGB 11.5-15.5 g/dL Low [place] Hemoglobin 9.9 LAB WHCT 36.0-46.0 % Low [place] Hematocrit 32.4 LAB WMCV 80.0-100.0 fL [place] MCV 99.4 LAB WMCH 26.0-34.0 pg [place] MCH 30.4 LAB WMCHC 30.5-36.0 g/dL [place] MCHC 30.6 LAB WRDW 11.5-15.0 % [place] High RDW 16.1 LAB WPLT 150-400 k/uL Low [place] Platelet Cnt 80 LAB WMPV 9.0-12.7 fL [place] MPV 11.9 Result Comment: Test performed at: [address] [place] [address]. LAB ABGRAN 1.45-7.50 k/uL Absol Gran 2.24 Count PACEMAKER CHECK Observed: 03/29/2018 Status: F Source: [place]IM[place] 4:30 PM [facility] REPOSITORY [facility]. [address] [place] [address] Pacemaker Check Date of Service: 03/29/18 1601 MR#: [id number] Acct: [id number] Name: EMANI LOUIS Rep #: [id number] : 1940 From: Angélica Dunn Age/Sex: 77/F [place] [facility] [place]: Signed Billing Codes PM Device Codes: PM Dev Prog Eval, Dual 03/29/18 1603 <Electronically signed by Angélica Dunn > Date Angélica Dunn 03/29/18 1630<Electronically signed by Eddie Mendoza MD> Cosigner Signature: Date (if applicable) Eddie Mendoza MD CC: [place] ABS GR + CBC Collected: 03/28/2018 Status: F Source: [place] 9:09 AM [facility] REPOSITORY TYPE CODE TESTS RESULT OUT OF REFERENCE UNITS RANGE LAB WWBC 3.70-11.00 k/uL Low [place] WBC 3.12 LAB WRBC 3.90-5.20 m/uL Low [place] RBC 2.65 LAB WHGB 11.5-15.5 g/dL Low [place] Hemoglobin 8.0 LAB WHCT 36.0-46.0 % Low [place] Hematocrit 27.2 LAB WMCV 80.0-100.0 fL [place] High MCV 102.6 LAB WMCH 26.0-34.0 pg [place] MCH 30.2 LAB WMCHC 30.5-36.0 g/dL Low [place] MCHC 29.4 Result Comment: Result checked and verified LAB WRDW 11.5-15.0 % [place] High RDW 16.7 LAB WPLT 150-400 k/uL Low [place] Platelet Cnt 86 Result Comment: Result checked and verified NO CLOT DETECTED LAB WMPV 9.0-12.7 fL [place] MPV 10.5 Result Comment: Test performed at: [facility] [place], [address] [place] [address]. LAB ABGRAN 1.45-7.50 k/uL Absol Gran 2.49 Count TYPE AND SCREEN Collected: 03/28/2018 Status: F Source: [place]IM[place] 9:07 AM [facility] REPOSITORY Order Comment: PRETRANSFUSION HGB = 8.0 HCT = 27.2 PERFORMED AT [facility] CMV NEG?* N Give When? 03/29/18 @0830 Irradiated? N Leukodepleted? Y Reason for Type AND Screen/Red Cells: ANEMIA TYPE CODE TESTS RESULT OUT OF RANGE REFERENCE UNITS LAB B10.0800 A Normal BLOOD TYPE GEL POSITIVE LAB B100.4000 Normal Antibody NEGATIVE Screen Performed By: #### B101.7450 #### [facility] [address] [place], [address] Collected: 03/28/2018 Status: F Source: [place]IM[place]LY 9:07 [facility] REPOSITORY TYPE CODE TESTS RESULT OUT OF REFERENCE UNITS RANGE LAB U100.0000 [id number] TRANSFUSED PRODUCT: T AND S with Crossmatch, Red Cells COUNT: 2 Performed By: #### U100.0000 #### [facility] - refer to report for specific site [place] ABS GR + CBC Collected: 03/21/2018 Status: F Source: [place] 9:03 AM [facility] REPOSITORY TYPE CODE TESTS RESULT OUT OF REFERENCE UNITS RANGE LAB WWBC 3.70-11.00 k/uL Low [place] WBC 3.33 LAB WRBC 3.90-5.20 m/uL Low [place] RBC 2.86 LAB WHGB 11.5-15.5 g/dL Low [place] Hemoglobin 8.6 LAB WHCT 36.0-46.0 % Low [place] Hematocrit 29.2 LAB WMCV 80.0-100.0 fL [place] High MCV 102.1 LAB WMCH 26.0-34.0 pg [place] MCH 30.1 LAB WMCHC 30.5-36.0 g/dL Low [place] MCHC 29.5 LAB WRDW 11.5-15.0 % [place] High RDW 15.8 LAB WPLT 150-400 k/uL Low [place] Platelet Cnt 85 LAB WMPV 9.0-12.7 fL [place] MPV 11.7 Result Comment: Test performed at: [address] [place] [address]. LAB ABGRAN 1.45-7.50 k/uL Absol 2.56 Gran Count LAB ABSNUC <0.01 k/uL Absolute nRBC Result checked and verified IRON AND TIBC Collected: 03/21/2018 Status: F Source: [place] 9:01 [facility] REPOSITORY TYPE CODE TESTS RESULT OUT OF REFERENCE UNITS RANGE LAB IRN 41-186 ug/dL Iron 65 LAB TIBC 232-386 ug/dL Low TIBC 207 LAB SAT 15-57 % Transferrin Saturatn 31 Performed By: #### IRON, FERR #### [facility] [address] [place], [place] [address] FERRITIN Collected: 03/21/2018 Status: F Source: [place] 9:01 AM [facility] REPOSITORY TYPE CODE TESTS RESULT OUT OF REFERENCE UNITS RANGE LAB FERR 14.7-205.1 ng/mL High Ferritin 311.9 Performed By: #### IRON, FERR #### [facility] [address] [place], [place] [address] [place] ABS GR + CBC Collected: 03/14/2018 Status: F Source: [place] 8:33 AM [facility] REPOSITORY TYPE CODE TESTS RESULT OUT OF REFERENCE UNITS RANGE LAB WWBC 3.70-11.00 k/uL Low [place] WBC 3.24 LAB WRBC 3.90-5.20 m/uL Low [place] RBC 3.01 LAB WHGB 11.5-15.5 g/dL Low [place] Hemoglobin 9.1 LAB WHCT 36.0-46.0 % Low [place] Hematocrit 30.0 LAB WMCV 80.0-100.0 fL [place] MCV 99.7 LAB WMCH 26.0-34.0 pg [place] MCH 30.2 LAB WMCHC 30.5-36.0 g/dL Low [place] MCHC 30.3 LAB WRDW 11.5-15.0 % [place] High RDW 15.6 LAB WPLT 150-400 k/uL Low [place] Platelet Cnt 74 LAB WMPV 9.0-12.7 fL [place] MPV 12.0 Result Comment: Test performed at: [facility], [address] [place] [address]., [place] [address]. LAB ABGRAN 1.45-7.50 k/uL Absol Gran 2.41 Count PROTHROMBIN TIME W/INR Collected: 03/14/2018 Status: F Source: [place] 7:55 AM [facility] REPOSITORY TYPE CODE TESTS RESULT OUT OF RANGE REFERENCE UNITS LAB L300.4150 11.7-14.9 SECONDS High PROTIME 30.3 LAB L300.4200 Normal INR 2.9 Performed By: #### L300.3900 #### [facility] [address] [facility] [place], [place], [address] [place] ABS GR + CBC Collected: 03/07/2018 Status: F Source: [place] 9:15 AM [facility] REPOSITORY TYPE CODE TESTS RESULT OUT OF REFERENCE UNITS RANGE LAB WWBC 3.70-11.00 k/uL Low [place] WBC 3.25 LAB WRBC 3.90-5.20 m/uL Low [place] RBC 3.32 LAB WHGB 11.5-15.5 g/dL Low [place] Hemoglobin 10.0 LAB WHCT 36.0-46.0 % Low [place] Hematocrit 33.1 LAB WMCV 80.0-100.0 fL [place] MCV 99.7 LAB WMCH 26.0-34.0 pg [place] MCH 30.1 LAB WMCHC 30.5-36.0 g/dL Low [place] MCHC 30.2 LAB WRDW 11.5-15.0 % [place] High RDW 16.2 LAB WPLT 150-400 k/uL Low [place] Platelet Cnt 95 LAB WMPV 9.0-12.7 fL [place] MPV 11.7 Result Comment: Test performed at: [address] [place] [address]. LAB ABGRAN 1.45-7.50 k/uL Absol Gran 2.47 Count [place] ABS GR + CBC Collected: 02/28/2018 Status: F Source: [place] 9:00 AM [facility] REPOSITORY TYPE CODE TESTS RESULT OUT OF REFERENCE UNITS RANGE LAB WWBC 3.70-11.00 k/uL Low [place] WBC 3.27 LAB WRBC 3.90-5.20 m/uL Low [place] RBC 3.18 LAB WHGB 11.5-15.5 g/dL Low [place] Hemoglobin 9.4 LAB WHCT 36.0-46.0 % Low [place] Hematocrit 31.8 LAB WMCV 80.0-100.0 fL [place] MCV 100.0 LAB WMCH 26.0-34.0 pg [place] MCH 29.6 LAB WMCHC 30.5-36.0 g/dL Low [place] MCHC 29.6 Result Comment: Result checked and verified LAB WRDW 11.5-15.0 % High [place] RDW 16.3 LAB WPLT 150-400 k/uL Low [place] 75 Platelet Cnt LAB WMPV 9.0-12.7 fL [place] MPV 10.8 Result Comment: Test performed at: [facility], [address] [place] [address]., [place] [address]. LAB ABGRAN 1.45-7.50 k/uL Absol Gran 2.45 Count CAROTID DUPLEX Observed: 02/22/2018 Status: F Source: [place]IM[place] ULTRASOUND 7:16 PM [facility] REPOSITORY [facility] [place] [address] Carotid Duplex Ultrasound 02/22/18 1242 MR#: [id number] Acct: [id number] Name: EMANI LOUIS Rep #: [id number] : 1940 77 From: Addison Loaiza MD Attending Dr: Eddie Mendoza MD Status: REG CLI Ordering Dr: Eddie Mendoza MD Date: 02/22/18 Location: [facility] Sex: F C Admitted: Reason For Study: Bruit Rt. Velocities/BP Lt. Velocities/BP Prox CCA 59/32 cm/sec. Prox CCA 116/24 cm/sec. Mid CCA 70/39 cm/sec. Mid CCA 83/22 cm/sec. Dist CCA 41/26 cm/sec. Dist CCA 225/59 cm/sec. Prox ICA 61/43 cm/sec. Prox ICA 216/66 cm/sec. Mid ICA 72/49 cm/sec. Mid ICA 251/71 cm/sec. Dist ICA 55/37 cm/sec. Dist ICA 111/43 cm/sec. Rt. ICA/CCA = 1.02. Lt. ICA/CCA = 3.02. Prox ECA 54/14 cm/sec. Prox ECA 138/8 cm/sec. Rt. Vert. 27/11 cm/sec. Lt. Vert. 52/23 cm/sec. Right Extracranial There is heterogeneous, irregular atherosclerotic plaque noted in the right common carotid artery. There is heterogeneous, irregular atherosclerotic plaque noted in the right internal carotid artery. There is heterogeneous, irregular atherosclerotic plaque noted in the right external carotid artery. Antegrade flow is noted in the right vertebral artery. Left Extracranial There is heterogeneous, irregular atherosclerotic plaque noted in the left common carotid artery. There is heterogeneous, irregular atherosclerotic plaque noted in the left internal carotid artery. There is heterogeneous, irregular atherosclerotic plaque noted in the left external carotid artery. Antegrade flow is noted in the left vertebral artery. Procedure Carotid Duplex 15972. Prelim given to Leidy CAMPOS. Exam performed in department. Interpretation Summary Calcific irregular plague at the distal right common carotid and proximal internal and external carotids. <50% stenosis right internal carotid Irregular calcific plague at the distal left common carotid and proximal left internal and external carotids. 50-69% stenosis left internal carotid (likely closer to 69%) Normal flow right external carotid and mild disease on the left Patent and antegrade vertebrals bilaterally Ordering Physician: Eddie Mendoza Referring Physician: Kodak Muñoz Performed By: Ginny Valenzuela, SCOTT, RVT 02/22/181914 Date Addison Loaiza MD CC: Eddie Mendoza MD; Kodak Muñoz MD Date Dictated: 02/22/18 1242 Date Transcribed: 02/22/181914 Iv Technician: Signed PROTHROMBIN TIME W/INR Collected: 02/21/2018 Status: F Source: MARYBETH 8:39 AM [facility] REPOSITORY TYPE CODE TESTS RESULT OUT OF RANGE REFERENCE UNITS LAB L300.4150 11.7-14.9 SECONDS High PROTIME 30.7 LAB L300.4200 Normal INR 2.9 Performed By: #### L300.3900 #### [facility] [address] [place], [place], [address] MARYBETH ABS GR + CBC Collected: 02/21/2018 Status: F Source: GUAYNABO 8:08 AM [facility] REPOSITORY TYPE CODE TESTS RESULT OUT OF REFERENCE UNITS RANGE LAB WWBC 3.70-11.00 k/uL Low [place] WBC 2.92 LAB WRBC 3.90-5.20 m/uL Low [place] RBC 2.99 LAB WHGB 11.5-15.5 g/dL Low [place] Hemoglobin 9.0 LAB WHCT 36.0-46.0 % Low [place] Hematocrit 30.3 LAB WMCV 80.0-100.0 fL [place] High MCV 101.3 LAB WMCH 26.0-34.0 pg [place] MCH 30.1 LAB WMCHC 30.5-36.0 g/dL Low [place] MCHC 29.7 Result Comment: Result checked and verified LAB WRDW 11.5-15.0 % High [place] RDW 17.0 LAB WPLT 150-400 k/uL Low [place] 77 Platelet Cnt LAB WMPV 9.0-12.7 fL [place] MPV 10.2 Result Comment: Test performed at: [address] , [place] [address]. LAB ABGRAN 1.45-7.50 k/uL Absol Gran 2.22 Count PROTHROMBIN TIME W/INR Collected: 02/14/2018 Status: F Source: KIMBERLY 10:03 AM [facility] REPOSITORY TYPE CODE TESTS RESULT OUT OF RANGE REFERENCE UNITS LAB L300.4150 11.7-14.9 SECONDS High PROTIME 23.2 LAB L300.4200 Normal INR 2.1 Performed By: #### L300.3900 #### [facility] [place], [address] MARYBETH ABS GR + CBC Collected: 02/14/2018 Status: F Source: [place] 9:08 AM [facility] REPOSITORY TYPE CODE TESTS RESULT OUT OF REFERENCE UNITS RANGE LAB WWBC 3.70-11.00 k/uL Low [place] WBC 3.13 LAB WRBC 3.90-5.20 m/uL Low [place] RBC 2.96 LAB WHGB 11.5-15.5 g/dL Low [place] Hemoglobin 8.8 LAB WHCT 36.0-46.0 % Low [place] Hematocrit 29.5 LAB WMCV 80.0-100.0 fL [place] MCV 99.7 LAB WMCH 26.0-34.0 pg [place] MCH 29.7 LAB WMCHC 30.5-36.0 g/dL Low [place] MCHC 29.8 Result Comment: Result checked and verified LAB WRDW 11.5-15.0 % High [place] RDW 15.9 LAB WPLT 150-400 k/uL Low [place] 71 Platelet Cnt LAB WMPV 9.0-12.7 fL [place] MPV 11.3 Result Comment: Test performed at: [address] [place] [address]. LAB ABGRAN 1.45-7.50 k/uL Absol Gran 2.47 Count MARYB[place] ABS GR + CBC Collected: 02/07/2018 Status: F Source: GUAYNA[place] 9:00 AM [facility] REPOSITORY TYPE CODE TESTS RESULT OUT OF REFERENCE UNITS RANGE LAB WWBC 3.70-11.00 k/uL Low [place] WBC 3.43 LAB WRBC 3.90-5.20 m/uL Low [place] RBC 2.85 LAB WHGB 11.5-15.5 g/dL Low [place] Hemoglobin 8.6 LAB WHCT 36.0-46.0 % Low [place] Hematocrit 28.7 LAB WMCV 80.0-100.0 fL [place] High MCV 100.7 LAB WMCH 26.0-34.0 pg [place] MCH 30.2 LAB WMCHC 30.5-36.0 g/dL Low [place] MCHC 30.0 LAB WRDW 11.5-15.0 % [place] High RDW 17.5 LAB WPLT 150-400 k/uL Low [place] Platelet Cnt 95 LAB WMPV 9.0-12.7 fL [place] MPV 10.8 Result Comment: Test performed at: [address] [place] [address]. LAB ABGRAN 1.45-7.50 k/uL Absol 2.78 Gran Count LAB ABSNUC <0.01 k/uL Absolute nRBC Result checked and verified IRON AND TIBC Collected: 02/07/2018 Status: F Source: GUAY[place] 9:00 AM [facility] REPOSITORY TYPE CODE TESTS RESULT OUT OF REFERENCE UNITS RANGE LAB IRN 41-186 ug/dL Iron 66 LAB TIBC 232-386 ug/dL Low TIBC 214 LAB SAT 15-57 % Transferrin Saturatn 31 Performed By: #### IRON #### [facility] [address] [place], [place] [address] ANES POST Observed: 02/06/2018 Status: COMPLETED Source: GUAYNABO 9:59 AM [facility] REPOSITORY HNO ID: [id number] Author: Vinicio Roberson Service: Anesthesiology Author Type: Anesthesiologist Type: Anesthesia PostOp Filed: 02/06/2018 10:00 AM Note Text: POST ANESTHESIA EVALUATION NOTE SERVICE DATE: 02/06/2018 SERVICE TIME: 10:00 : 1940 Vitals: There were no vitals filed for this visit. There were no vitals filed for this visit. There were no vitals filed for this visit. There were no vitals filed for this visit. There were no vitals filed for this visit. Validated Vital Signs: HR: 102; BP: 89/53; RR: 14; SpO2%: 94; Temperature: 36.6 POST ANES STATUS: No apparent anesthetic complications. The patient is appropriately hydrated with stable respiratory and cardiovascular status. Patient has safe and adequate airway control. The patient has appropriate pain relief and no significant post operative nausea or vomiting. The patient has achieved baseline mental status. Further assessment by Anesthesia Service: None Other Remarks: SIGNATURE: Vinicio Roberson MD PATIENT NAME: Emani Louis DATE: February 06, 2018 TIME: 9:59 AM PAGER/CONTACT #: [phone] PROTHROMBIN TIME W/INR Collected: 02/05/2018 Status: F Source: KIMBERLY 9:10 AM [facility] REPOSITORY TYPE CODE TESTS RESULT OUT OF RANGE REFERENCE UNITS LAB L300.4150 11.7-14.9 SECONDS High PROTIME 21.3 LAB L300.4200 Normal INR 1.8 Performed By: #### L300.3900 #### [facility] [address] [place], [address] DOWNTIME REPORT Observed: 01/31/2018 Status: F Source: KIMBERLY 12:08 PM [facility] REPOSITORY [facility] Medical Records Department [address] [place] [address] Downtime Report MR#: [id number] Acct: [id number] Name: EMANI LOUIS Rep #: [id number] : 1940 77 From: Lucio Saavedra PCP: Kodak Muñoz MD Status: REG RCR This patient was seen during an EMR downtime January 14, 2018 - January 21, 2018. This patient may have a combination of paper and electronic documentation or all paper documentation. All documentation is viewable within the e-chart portion of [facility] [employer] for each patient visit. MARYBETH ABS GR + CBC Collected: 01/31/2018 Status: F Source: GUAYNABO 9:08 AM [facility] [place] REPOSITORY TYPE CODE TESTS RESULT OUT OF REFERENCE UNITS RANGE LAB WWBC 3.70-11.00 k/uL [place] WBC 4.35 LAB WRBC 3.90-5.20 m/uL Low [place] RBC 3.03 LAB WHGB 11.5-15.5 g/dL Low [place] Hemoglobin 9.0 LAB WHCT 36.0-46.0 % Low [place] Hematocrit 30.2 LAB WMCV 80.0-100.0 fL [place] MCV 99.7 LAB WMCH 26.0-34.0 pg [place] MCH 29.7 LAB WMCHC 30.5-36.0 g/dL Low [place] MCHC 29.8 Result Comment: Result checked and verified LAB WRDW 11.5-15.0 % High [place] RDW 18.4 LAB WPLT 150-400 k/uL Low [place] 118 Platelet Cnt LAB WMPV 9.0-12.7 fL [place] MPV 11.8 Result Comment: Test performed at: [facility], [address] [place] [address] Rd., [place] [address]. LAB ABGRAN 1.45-7.50 k/uL Absol Gran 3.52 Count 12 LEAD ELECTROCARDIOGRAM Observed: 01/28/2018 Status: F Source: KIMBERLY 8:35 AM [facility] REPOSITORY [facility] [address] [place] [address] 12 Lead EKG 01/07/18 1812 MR#: [id number] Acct: [id number] Name: EMANI LOUIS Rep #: [id number] : 1940 77 From: Zia Pfeiffer MD Attending Dr: Status: DEP ER Ordering Dr: Jessie Boothe MD Date: 01/07/18 Location: ED Sex: F C Admitted: Test Reason : HYPOTENSION Blood Pressure : / mmHG Vent. Rate : 112 BPM Atrial Rate : 112 BPM P-R Int : 148 ms QRS Dur : 076 ms QT Int : 356 ms P-R-T Axes : 090 -01 122 degrees QTc Int : 485 ms Sinus tachycardia Low voltage QRS Nonspecific ST and T wave abnormality Abnormal ECG Confirmed by ZIA PFEIFFER ([id number]), photo editor SUZANNE SAAVEDRA ([id number]) on 01/21/2018 5:14:06 PM Referred By: MAMTA Confirmed By:ZIA PFEIFFER 01/21/18 1714 Date Zia Pfeiffer MD CC: Jessie Boothe MD; Kodak Muñoz MD Signed MARYBETH ABS GR + CBC Collected: 01/24/2018 Status: F Source: GUAYNABO 9:00 AM [facility] REPOSITORY TYPE CODE TESTS RESULT OUT OF REFERENCE UNITS RANGE LAB WWBC 3.70-11.00 k/uL [place] WBC 3.83 LAB WRBC 3.90-5.20 m/uL Low [place] RBC 3.00 LAB WHGB 11.5-15.5 g/dL Low [place] Hemoglobin 8.8 LAB WHCT 36.0-46.0 % Low [place] Hematocrit 29.8 LAB WMCV 80.0-100.0 fL [place] MCV 99.3 LAB WMCH 26.0-34.0 pg [place] MCH 29.3 LAB WMCHC 30.5-36.0 g/dL Low [place] MCHC 29.5 LAB WRDW 11.5-15.0 % [place] High RDW 18.2 LAB WPLT 150-400 k/uL Low [place] Platelet Cnt 95 LAB WMPV 9.0-12.7 fL [place] MPV 11.0 Result Comment: Test performed at: [facility], [address] [place] [address] Rd[address] [place] [address]. LAB ABGRAN 1.45-7.50 k/uL Absol 3.22 Gran Count LAB ABSNUC <0.01 k/uL Absolute nRBC Result checked and verified IRON AND TIBC Collected: 01/24/2018 Status: F Source: GUAY[place]BO 9:00 AM [facility] REPOSITORY TYPE CODE TESTS RESULT OUT OF REFERENCE UNITS RANGE LAB IRN 41-186 ug/dL Iron 44 LAB TIBC 232-386 ug/dL TIBC 252 LAB SAT 15-57 % Transferrin Saturatn 17 Performed By: #### IRON, FERR #### [facility] [address] [place], [place] [address] FERRITIN Collected: 01/24/2018 Status: F Source: GUAY[place]BO 9:00 AM [facility] REPOSITORY TYPE CODE TESTS RESULT OUT OF REFERENCE UNITS RANGE LAB FERR 14.7-205.1 ng/mL High Ferritin 470.9 Performed By: #### IRON, FERR #### [facility] [address] [place], [place] [address] PROTIME Collected: 01/21/2018 Status: F Source: GUAY[place]BO 10:46 AM [facility] REPOSITORY TYPE CODE TESTS RESULT OUT OF RANGE REFERENCE UNITS LAB PSEC 9.7-13.0 sec High PT Sec 32.8 LAB INR 0.9-1.3 High PT INR 3.4 Result Comment: Vitamin K Antagonist (VKA) Therapeutic Range: INR 2 to 3 (Target INR of 2.5) Note: For patients treated with VKA drugs, such as warfarin, the [place] [employer] 2012 Guideline recommends a therapeutic INR range of 2 to 3 (target INR of 2.5). This recommendation includes high-risk patients with antiphospholipid syndrome with previous arterial or venous thromboembolism, current-generation mechanical or bioprosthetic aortic heart valve replacement. Note: Patients with mechanical aortic valve replacement and additional risk factors for thromboembolic events (atrial fibrillation, previous thromboembolism, LV dysfunction, hypercoagulable conditions) or an older generation mechanical AVR (i.e., ball in-Cage) or any mechanical MVR should have a INR therapeutic range of 2.5 to 3.5 (target INR of 3). Italo GH, et al. Chest 2012, 141:7S-47S Phoebe RA, et al. JACC 2017, 70: 252-289 Performed By: #### PT, CBCDIF, BMP #### [facility] [address] [place], [place] [address] CBC AND DIFFERENTIAL Collected: 01/21/2018 Status: F Source: GUAY[place]BO 10:46 AM [facility] REPOSITORY TYPE CODE TESTS RESULT OUT OF REFERENCE UNITS RANGE LAB WBC 3.70-11.00 k/uL WBC 4.17 LAB RBC 3.90-5.20 m/uL Low RBC 3.52 LAB HGB 11.5-15.5 g/dL Low Hemoglobin 10.3 LAB HCT 36.0-46.0 % Low Hematocrit 35.7 LAB MCV 80.0-100.0 fL MCV High 101.4 LAB MCH 26.0-34.0 pG MCH 29.3 LAB MCHC 30.5-36.0 g/dL Low MCHC 28.9 LAB RDWCV 11.5-15.0 % RDW-CV High 17.7 LAB PLTCT 150-400 k/uL Low Platelet Count 119 LAB MPV 9.0-12.7 fL MPV 12.5 LAB ANEUT % Neut% 79.6 LAB AANEUT 1.45-7.50 k/uL Abs Neut 3.32 LAB ALYMP % Lymph% 14.6 LAB AALYMP 1.00-4.00 k/uL Low Abs Lymph 0.61 LAB AMONO % Graves% 4.8 LAB AAMONO <0.87 k/uL Abs Graves 0.20 LAB AEOS % Eosin% 0.5 LAB AAEOS <0.46 k/uL Abs Eosin <0.03 LAB ABASO % Baso% 0.5 LAB AABASO <0.11 k/uL Abs Baso <0.03 LAB AUNRBC 0 /100 WBC NRBCs 0.0 LAB ABNRBC <0.01 k/uL Absolute nRBC <0.01 LAB DTYP DTYPE Auto Diff Performed By: #### PT, CBCDIF, BMP #### [facility] [address] [place], [place] [address] BASIC METABOLIC PANL Collected: 01/21/2018 Status: F Source: [place] 10:46 AM [facility] REPOSITORY TYPE CODE TESTS RESULT OUT OF REFERENCE UNITS RANGE LAB GLU 74-99 mg/dL Glucose 96 Result Comment: The [place] Diabetes Association (ADA) provides guidance for cutoff values for fasting glucose and random glucose. The ADA defines fasting as no caloric intake for at least 8 hours. Fas ting plasma glucose results between 100 to 125 mg/dL indicate increased risk for diabetes (prediabetes). Fasting plasma glucose results greater than or equal to 126 mg/dL meet the criteria for diagnosis of diabetes. In the absence of unequivocal hyperglycemia, results should be confirmed by repeat testing. In a patient with classic symptoms of hyperglycemia or hyperglycemic crisis, random plasma glucose results greater than or equal to 200 mg/dL meet the criteria for diagnosis of diabetes. Reference: Standards of Medical Care in Diabetes 2016, [place] [employer] Association. Diabetes Care. 2016.39(Suppl 1). LAB BUN 7-21 mg/dL BUN 13 LAB CRET 0.58-0.96 mg/dL Creatinine High 1.58 LAB NA 136-144 mmol/L Sodium 144 LAB K 3.7-5.1 mmol/L Potassium 4.4 LAB CL 97-105 mmol/L Chloride 105 LAB CO2 22-30 mmol/L CO2 25 LAB AGAP 9-18 mmol/L Anion Gap 14 LAB CA 8.5-10.2 mg/dL Calcium, Total 9.2 LAB GFRAA eGFR- Amer. 39 LAB GFRNAA . eGFR-All Other Races 32 Result Comment: eGFR (Estimated GFR) Units of measure: mL/min/1.73 meters squared eGFR is derived from the reexpressed MDRD Study equation using the following parameters: serum creatinine, age, gender and race. The creatinine assay has been calibrated to be traceable to IDMS. An eGFR <60 mL/min/1.73m2 for >3 months is consistent with chronic kidney disease. Refer to KDOQI guidelines for clinical interpretation. In patients with unstable renal function, e.g. those with acute kidney injury, the eGFR may not accurately reflect actual GFR. Performed By: #### PT, CBCDIF, BMP #### [facility] [address] [place] [address] TYPE AND SCREEN Collected: 01/21/2018 Status: F Source: [place] 10:46 AM [facility] REPOSITORY TYPE CODE TESTS RESULT OUT OF REFERENCE UNITS RANGE LAB %ABR A ABO/RH(D) POSITIVE LAB % Antibody NEG Screen Performed By: #### TSCR #### [facility] [address] [place] [id number] CNOV Observed: 01/21/2018 Status: COMPLETED Source: [place] 9:15 AM [facility] REPOSITORY Office Visit (IMPAMN) EMANI LOUIS ([id number]) 1940 F Date Time Provider Department 01/21/18 9:15 AM TEENA SUE During your visit today, we recorded the following information about you: Temperature Pulse Blood pressure Weight 98 degrees 106/minute 84/48 64.9 kg Height 1.575 m Teena Sue MD, [facility], 01/24/2018 8:47 AM Addendum HISTORY AND PHYSICAL EXAMINATION (IMPACT) SERVICE DATE: 01/21/2018 PRIMARY CARE PHYSICIAN: Kodak Muñoz MD CHIEF COMPLAINT/HISTORY OF PRESENT ILLNESS: Ms. Louis is a 77 year old female referred to me for preoperative evaluation. My final recommendations will be communicated back to the requesting physician/surgeon by the way of the shared medical record. Referring Surgeon: Dr. Mckeon Date of Surgery: 02/06/2018 Planned Surgery/Procedure: COLON BALLOON ENTEROSC GEN ANES Indication for Planned Surgery / Procedure: Hx of anemia Accompanied by daughter. Patient presents for perioperative evaluation. Hx of Chronic anemia/thrombocytopaenia and followed closely by [facility] for iron and darbopoetin injections. Last darbo was 01/17 and last iron infusion was 6 weeks ago apparently. Has hx of GI bleeds with multiple work-up. Recently discharged on January 15 for severe anemia requiring pRBC and FFP transfusions as well as vit K. Was seen by GI at that time who recommended double balloon enteroscopy but patient refused. ?She was transitioned back to coumadin given hx of [facility] Alex's mech valve and was discharged at that time. Denies any hematochezia or melena since discharge. Feels better since discharge. Reports that she follows with [facility] at [place] for her coumadin/INR and has always been bridged with lovenox if needs to be off coumadin for anything. Now scheduled for surgery. Refer to Assessment section for details of any comorbidities. Patient is Able to Perform the Following Physical Activity: Climb a flight of stairs or walk up a hill (5.50 METs) No chest pains. Has chronic exertonal SOB with activity which has been unchanged for years Patient's functional class is II-III based on self-reported physical activity. Significant Anesthesia Considerations: None. PAST MEDICAL/SURGICAL/FAMILY/SOCIAL HISTORY PAST MEDICAL HISTORY Diagnosis Date - Acute kidney failure with lesion of tubular necrosis ([facility]) 08/19/[address] Tobias. - Adenomatous colon polyp 08/30/2012 - Anemia in chronic kidney disease 08/31/2011 - Atrial fibrillation ([facility]) 05/09/2012 - Calculus of ureter 03/24/2008 - Cardiac pacemaker in situ 08/17/2008 Sick sinus syndrome. - CHF (congestive heart failure) ([facility]) 07/24/2008 Mitral insufficiency. s/p MV replacement - Cholelithiasis 05/26/2013 - Chronic hypotension - Chronic kidney disease, stage III (moderate) 09/23/2009 - Chronic rhinitis - COPD (chronic obstructive pulmonary disease) ([facility]) - DDD (degenerative disc disease) - Diverticulosis of colon (without mention of hemorrhage) 10/17/05 - DM type 2 (diabetes mellitus, type 2) ([facility]) 08/15/2005 on insulin - Esophageal reflux 08/15/2005 - Fibromyalgia - Generalized osteoarthrosis, unspecified site - Heart valve replaced by other means 08/17/2008 #25, [facility]. Mitral valve. - Iron deficiency 08/17/2011 - Lumbago 08/15/2005 - Melena - Moderate to severe pulmonary hypertension 09/21/2016 - Myalgia and myositis, unspecified - Other and unspecified hyperlipidemia 08/15/2005 - PSVT (paroxysmal supraventricular tachycardia) ([facility]) 04/10/2011 - Sleep apnea - Thrombocytopenia ([facility]) - Tricuspid regurgitation - Unspecified asthma(493.90) 08/15/2005 - Unspecified cardiovascular disease heart cath 12/15 PAST SURGICAL HISTORY Procedure Laterality Date - CAPSULE ENDOSCOPY SMALL BOWEL 12/03/2017 - COLONOSCOP W/ OR W/O BRSH SPEC 10/17/05 - COLONOSCOP W/ OR W/O BRSH SPEC 08/25/2009 Colonoscopy - COLONOSCOP W/ OR W/O BRSH SPEC 10/17/2012 Colonoscopy - COLONOSCOPY 11/26/2017 - EGD 01/16/2005 - EGD W/O OR W/BRUSH/WASH 08/25/2009 EGD - EGD W/O OR W/BRUSH/WASH 04/05/15 EGD inpt [facility] - EGD W/O OR W/BRUSH/WASH 10/30/2016 EGD - INSER DIAMOND PACER XVENOUS ATRIAL Perm pacemaker insert - LEFT HEART CATH,PERCUTANEOUS Cardiac cath, L heart - LIGATE FALLOPIAN TUBE Tubal ligation - PAST SURGICAL HISTORY OF cervical conization - PAST SURGICAL HISTORY OF 01/03/05 Heart Cath - PAST SURGICAL HISTORY OF Carpal tunnel surgery b/l wrists - PERICARDIAL FINE NEEDLE ASPIRATION 2008 Pericardial Window - REPLACEMENT OF MITRAL VALVE Mitral valve replacement, [facility] #25. 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 Oxygen 3 LPM at HS and with exertion. Has cane, wheelchair as needed. No safety concerns. Camping trailer during summer. MEDICATIONS/ALLERGIES Current Outpatient Prescriptions: traZODone (DESYREL) 150 mg tablet TAKE 1 OR 2 TABLETS BY MOUTH DAILY AT BEDTIME Disp: 180 tablet Rfl: 3 COMPOUNDED PRESCRIPTION CBC and PT/INRDue: 01/16/2018 and 01/21/2018Dx: GI Bleeding, Chronic Coumadin Therapy. AnemiaResults to Dr. Kodak Muñoz Disp: 1 Each Rfl: [address] (PROTONIX) 40 mg tablet Take 1 tablet by mouth once daily. Disp: 90 tablet Rfl: 3 folic acid 1 mg tablet Take 1 tablet by mouth once daily. Disp: 90 tablet Rfl: 1 potassium chloride ER (K-DUR, KLOR-CON) 20 mEq tablet Take 1 tablet by mouth once daily. From outside pharmacy. Disp: Rfl: warfarin (COUMADIN) 2.5 mg tablet Take 1 tablet by mouth. From outside pharmacy. Disp: Rfl: atorvastatin (LIPITOR) 20 mg tablet Take 1 tablet by mouth once daily. Disp: 90 tablet Rfl: 0 Lancets lancets Use as instructed 3 to 4 TIMES DAILY insulin dep E 11.9 Disp: 400 Each Rfl: 1 venlafaxine (EFFEXOR) 37.5 mg tablet Take 1 tablet by mouth twice daily. Disp: 60 tablet Rfl: 5 Blood Sugar Diagnostic, Drum (ACCU-CHEK COMPACT TEST) strp Test blood sugar(s) 4 times daily. Dx: Type 2 DM - Uncontrolled E11.65 Insulin: Yes Disp: 100 Strip Rfl: 4 Blood-Glucose Meter, Drum-type (ACCU-CHEK COMPACT PLUS CARE) kit Accu-Check Compact Plus Meter Diagnosis: Type 2 DM - Uncontrolled E11.65 Disp: 1 Kit Rfl: 0 levothyroxine (SYNTHROID) 50 mcg tablet TAKE ONE TABLET BY MOUTH EVERY DAY Disp: 90 tablet Rfl: 1 HYDROcodone-acetaminophen (NORCO) 5-325 mg per tablet Take 1 tablet by mouth every 8 hours as needed for Pain. Disp: 45 tablet Rfl: 0 Magnesium 250 mg tab Take 250 mg by mouth once daily. Disp: Rfl: insulin glargine (LANTUS SOLOSTAR) 100 unit/mL (3 mL) inpn Inject 35 Units subcutaneously daily at bedtime. For blood glucose >150 Disp: 30 mL Rfl: 3 Insulin Lispro, Human, (HUMALOG KWIKPEN) 100 unit/mL inpn Inject 15 Units subcutaneously twice daily with meals for blood glucose >140. Add 2 units for every 50 of glucose >150. Disp: 30 mL Rfl: 3 insulin needles, DISPOSABLE, (PEN NEEDLE) 31 gauge x 5/16 ndle USE ONE NEEDLE FOR EACH DOSE Disp: 100 Each Rfl: 6 furosemide (LASIX) 20 mg tablet Take 20 mg by mouth every other day. Daily Disp: Rfl: cyanocobalamin (VITAMIN B-12) 1,000 mcg tab Take 1 tablet by mouth once daily. Disp: Rfl: 0 ferrous sulfate 325 mg (65 mg iron) EC tablet Take 1 tablet by mouth three times daily with meals. Disp: Rfl: 0 albuterol HFA (PROVENTIL HFA, VENTOLIN HFA) 90 mcg/actuation inhaler Inhale 2 Puffs as instructed every 6 hours as needed for Wheezing/Shortness of Breath. Disp: 1 Inhaler Rfl: 6 docusate sodium (COLACE) 100 mg capsule Take 1 capsule by mouth twice daily as needed for Constipation. Disp: Rfl: 0 Cholecalciferol, Vitamin D3, (VITAMIN D) 1,000 unit ORAL Tab Take 500 Units by mouth once daily. Disp: Rfl: tiotropium bromide (SPIRIVA RESPIMAT) 2.5 mcg/actuation mist Inhale 2 Puffs as instructed once daily. Inhale two puffs once daily. Disp: Rfl: 0 No current facility-administered medications for this visit. ALLERGIES Allergen Reactions - Ambien [Zolpidem Ta* Unknown - Ativan [Lorazepam] Other: See Comments just didn't work - Mobic [Meloxicam] Unknown - Pamelor [Nortriptyl* Unknown REVIEW OF SYSTEMS General: No weight loss, malaise or fevers. Neuro: No history of TIA's, stroke, HVAC INSTALLATION TECHNICIAN tumor, impaired sensorium, hemiplegia, paraplegia or quadriplegia. R hand dining room host weakness chronic Respiratory: COPD, Denies asthma. COPD with chronic exertional dyspnea that is stable. Takes inhalers only as needed apparently which is around once a month apparenty;. Has pulmo HTN. Denies hx of SHOSHANA or recent cough or colds (last cold was early December) Cardiovascular: Chronic hypotension-currently asymptomatic. Hx of MV replacement ([facility] [facility]) on coumadin, Has a fib. 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 Denies hx of VTE. No chest pain GI: Denies hx of GERD. Denies n/v/abd pain, melena,hematochezia, hematochezia. Hx of GI bleed in the past. -see HPI : No history of UTI in past 6 weeks. No history of renal failure. Not currently on or requiring dialysis. No history of symptoms or problems. TECHNICAL SERVICES REP: No vaginal bleeding due to menopause and no abnormal vaginal discharge. Endocrine: Diabetes Mellitus on insulin, Hypothyroidism, Denies any steroid in the past year Hematology: Anemia, chronic thrombocytopenia, followed by Heme. On coumadin. Not on ASA Oncology: No history of CA metastasis, chemo within 30 days, or radiotherapy within 90 days. No history of oncological symptoms or problems. Psych: Anxiety Skin: Negative for lesions, rash, and itching. PHYSICAL EXAM VITALS: BP 84/48 Pulse 106 Temp (Src) 98 (Oral) Ht 5' 2 (1.58m) Wt 143 lb (64.9kg) SpO2 95% BMI 26.15 kg/(m2). General: Alert, oriented, cooperative, healthy appearance. Not in distress Skin: Normal color, no rash, no lesions. HEENT: +upper dentures Pupils equal, round and reactive. Cardiovascular: Normal S1 AND S2, grade 3/6 systolic murmur base. +PPM palpable upper left anterior chest Lungs: Normal breath sounds, no wheezes or crackles. Abdomen: Soft, non-tender, no rigidity. Extremities: No deformity, no edema or tenderness, no joint swelling or clubbing. Neurological: Alert, Normal cognition and motor skills. Pulses: Radial pulses, B. +2. No carotid bruit ASSESSMENT Ms. Louis is a 77 year old female referred to me for preoperative evaluation. Patient has the following medical comorbidities which might affect the perioperative course: - Paroxysmal?A.fib, on coumadin, not on beta-blockers given chronic hypotension - s/p MVR with [facility] Alex. valve 2007. 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 Controlled with prn inhalers? - hx of GIB, capsule studies in November 2017 showed: non bleeding duodenal angiectasiia, single non-bleeding colonic angiodysplastic lesion. s/p argon plasma coagulation (APC) and clip placement. Recently discharged from [facility] for weakness, anemia. No signs or symptoms of GI bleeding even with current anticoagulation since discharge. -Hx of chronic hypotension SBP 70's with Heme and 63/42 with PCP visit in November. SBP 80 with recent hospital stay. Asymptomatic -Chronic thrombocytopenia, baseline 80-90K, stable, followed by local Heme -Chronic anticoagulation. ??Patient's RCRI (Revised Cardiac Risk Index: CAD/CHF/Stroke or TIA/SCr>2/DM on Insulin/High Risk Surgery) score is 2 and is at moderate but acceptable risk for major adverse cardiac events in the perioperative period. Diagnostic tests reviewed for today's visit: Component Latest Ref Rng AND Units 01/13/2018 01/13/2018 01/17/2018 4:49 AM 11:32 AM Protein, Total 6.3 - 8.0 g/dL 5.0 (L) Albumin 3.9 - 4.9 g/dL 2.6 (L) Calcium 8.5 - 10.2 mg/dL 7.2 (L) Bilirubin, Total 0.2 - 1.3 mg/dL 0.2 Alkaline Phosphatase 32 - 117 U/L 63 AST 13 - 35 U/L 8 (L) Glucose 74 - 99 mg/dL 118 (H) BUN 7 - 21 mg/dL 13 Creatinine 0.58 - 0.96 mg/dL 1.42 (H) Sodium 136 - 144 mmol/L 146 (H) Potassium 3.7 - 5.1 mmol/L 4.1 Chloride 97 - 105 mmol/L 119 (H) CO2 22 - 30 mmol/L 21 (L) Anion Gap 9 - 18 mmol/L 6 (L) ALT 7 - 38 U/L 9 eGFR- 44 eGFR-All Other Races . 36 WBC 3.70 - 11.00 k/uL 3.72 RBC 3.90 - 5.20 m/uL 2.55 (L) Hemoglobin 11.5 - 15.5 g/dL 7.5 (L) 7.9 (L) Hematocrit 36.0 - 46.0 % 24.4 (L) 25.6 (L) MCV 80.0 - 100.0 fL 95.7 MCH 26.0 - 34.0 pG 29.4 MCHC 30.5 - 36.0 g/dL 30.7 RDW-CV 11.5 - 15.0 % 17.9 (H) Platelet Count 150 - 400 k/uL 72 (L) MPV 9.0 - 12.7 fL 12.2 Absolute nRBC <0.01 k/uL <0.01 WBC, [place] 3.70 - 11.00 k/uL 3.65 (L) RBC, [place] 3.90 - 5.20 m/uL 3.20 (L) Hemoglobin, [place] 11.5 - 15.5 g/dL 9.4 (L) Hematocrit, [place] 36.0 - 46.0 % 31.2 (L) MCV, [place] 80.0 - 100.0 fL 97.5 MCH, [place] 26.0 - 34.0 pg 29.4 MCHC, [place] 30.5 - 36.0 g/dL 30.1 (L) RDW, [place] 11.5 - 15.0 % 17.5 (H) Platelet Cnt, [place] 150 - 400 k/uL 87 (L) MPV, [place] 9.0 - 12.7 fL 11.1 Absol Gran Count 1.45 - 7.50 k/uL 2.98 PT Sec 9.7 - 13.0 sec 24.6 (H) PT INR 0.9 - 1.3 2.5 (H) Discharge Summary 01/15/18: This is a 77 year old with PMHx: - paroxysmal?A.fib. - MVR with [facility] Alex. valve 2007. On warfarin at home, PT/INRtarget of2.0 - 3.0 because of bleeding and thrombocytopenia as outlined by Hematology - HF, taking lasix 20 mg q48h. ? - SSS, s/p PM 2008 - HLD, using Lipitor 20 mg. - CKD 3 with hx of ATN and MAX 2008, b/l 1.5-1.8 - Anemia of Chronic disease, taking Iron for 4 years, 325 TID, taking B12 and folic acid. - DM, using 35 units at bedtime, and Humalog 15 + SS2 with meals. - Hypothyroid, using Synthroid 50 Qd - DJD, using ?[place]. - Moderate to severe pulmonary hypertension, 2017 - COPD, on 2 L oxygen at home PRN. Using Albuterol, Spiriva. ? - Depression (using Venlafaxine), Trazodone (to help sleep). Feels depressed, which is getting worse recently, feels that she might hurt herself. - hx of GIB, ?2-3 years ago, w/u included endoscopy and capsule endoscopy at that time and there was no source of bleeding, In addition, she had recent scops as listed below: Capsule endoscopy 12/03/17:?Non bleeding duodenal angiectasia. ?Abnormal fold in the distal/terminal ileum, exact nature of which cannot be determined. Colonoscopy 11/26/17:?Diverticulosis in the sigmoid colon and in the descending colon. A single non-bleeding colonic angiodysplastic lesion. Treated with argon plasma coagulation (APC). Clips were placed. - She p/w weakness to OSH ([place] [facility]), as she was too weak to stand and noted to be hypotensive and tachycardic. Hg was 4.5, and INR was 19.5, given Vitamin K and 2 units of RBCs, 2 L fluid bolus, ?80 mg IV protonix and started on a protonix gtt. ??She was then transferred to [place] [facility] ICU?Hgb on presentation was 7.2. Patient received 2 more units of pRBC and FFP. Repeat Hgb was 9.7.?She had one melanotic while there. She was transferred here for further w/u. -She had a recent fall (3 days ago)?on the hip with L hip hematoma. ?She had black stool as she was taking iron supplement. She mentioned that some times has bright blood per rectum, no N/V?or hematemesis, no abd pain. She noted worsening SOB in the last 3 days. Her had PNA 10 days ago with cough/green sputum, she denies ?Fever but has some cough with white sputum. -Of note, she was scheduled for a double balloon enteroscopy on February 06, 2018. Patient recieves weekly Arnesp or blood transfusions. ?-PER GI CONSULT NOTE: Patient would not like to have this procedure performed on this admission. That is not my preference but the patient has a right to direct her own medical care and can have the procedure that is scheduled on 02/06. -Patient was transferred to the [facility]. Patient was being transitioned back to Coumadin for her MVR. Patient had no evidence of recurrent GI bleeding with no melena or hematochezia. Patient had a mild drop in her Hgb today from 7.5. This was rechecked in the afternoon and was 7.9. Patient will be transfused one additional units of PRBC to bring her Hgb > 8.0. Patients INR today was 2.5. She has been on Coumadin 2.5mg daily for many months and has been stable on this dose in the past. INR check on Sunday. -Patient nearly left AMA on 01/12/2018 after we refused to send her on Lovenox. We explained her that Lovenox is not approved for mechanical valves and her INR is not 2.5 so it puts her at risk for thrombus formation. ?-NOTE: Patient is overall high risk for rebleeding. I asked if patient wished to have enteroscopy during this admission and she refused. I even talked with the patients daughter instructing her of this. Instructed that it is imperative that she have her labs rechecked on Sunday and if any problems sooner return to ER for evaluation. ? EKG 01/09/18: Diagnosis:ATRIAL FIBRILLATION NONSPECIFIC ST AND T WAVE ABNORMALITY Echo 01/09/18: CONCLUSIONS: - Exam indication: Hypotension - The left ventricle is small. Left ventricular systolic function is normal. EF = 58 ? 5% (2D biplane) Left ventricular diastolic function was not evaluated due to prosthetic valve. - The right ventricle is dilated. Right ventricular systolic function is mildly decreased. RV not well seen in apical views, ? mild dysfunction based on subcostal ?assessment. - The left atrial cavity is moderately dilated. - The right atrial cavity is dilated. 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 There is mild (1+) mitral valve regurgitation. The peak gradient is 25 mmHg and the mean ?gradient is 12 mmHg. At least mild MR suggested, assessment limited by shadowing. ?Mitral gradients are increased, but at HR of 100 bpm. - There is severe (3+ - 4+) tricuspid valve regurgitation. There is systolic flow reversal evident in the hepatic veins, suggesting TR is in the 3-4+ range. - Estimated right ventricular systolic pressure is 73 mmHg consistent with moderately severe pulmonary hypertension. Estimated right atrial pressure is 10 mmHg. - Exam was compared with the?prior CC echocardiographic exam performed on 06/11/2008. There has been interval MVR. CXR 01/09/18: IMPRESSION: Lines, tubes, and devices: ?Permanent pacemaker leads to right heart chambers Lungs and pleura: ?Right effusion with hazy and patchy opacity right base, stable. ?Diminished reticular opacities since prior, likely improved edema. ?No overt pneumothorax. Cardiomediastinal silhouette: ?No substantial interval change post sternotomy for valve repair Hematology 12/20/17: ASSESSMENT:?76-year-old female with history of chronic renal failure (stage III), and PAN cirrhosis, and pancytopenia and chronic anemia, iron deficiency?secondary to GI bleeding on warfarin. ? PLAN: - continue injectafer 750mg IV weekly x 2; keep iron saturation above 20% - Repeat iron study monthly and monitor CBC weekly for possible blood transfusion or Aranesp injection if hemoglobin is less than 8.0 for?blood transfusion or hemoglobin less than 10 for Aranesp injection every 14 days. - Follow-up with PCP and cardiology regarding anticoagulation therapy. Keep ?PT/INR in 2.0 - 3.0 because of bleeding and thrombocytopenia. I spent 25?minutes in the visit, with more than 50% of the total [id number] time of the visit in counseling / coordination of care. - avoid aspirin and NSAIDs; dietary consult to maintain a proper diet with warfarin therapy. - repeat CBC, CMP, iron study OV in 3 months. PLAN/RECOMMENDATIONS CARDIAC: Will need to determine with Dr. Mckeon if she even needs to be off coumadin for the procedure. If she does, needs to be bridged. IV heparin preferable over lovenox given CKD III (though crea is still acceptable for lovenox bridging dose), thrombocytopenia and recent hospitalization for severe anemia. This might allow for closer monitoring with bridging. Patient declines and prefers lovenox outpatient bridging which she has done in the past and that her electric range assembler arranges. If GI needs patient to be off couamdin, will then need to request her electric range assembler to facilitate bridging with closer monitoring. of note, patient also closely followed by [facility]. Labs ordered to rechceck CBC, INR and BMP. Patient aware to seek medical help right away for any signs and symptoms of anemia or GI bleeding Patient's electric range assembler is Dr. Mendoza [phone]. Device check ordered after discussion with the [facility] who recommended pre-appointment here PULMONARY: Patient is at optimal Pulmonary status for scheduled surgery / procedure. Suggest the following in the post-operative period: Continue bronchodilator medications, Aggressive bronchopulmonary hygiene and Early ambulation ENDOCRINE: DIABETES: - Initiate [facility] Guidelines for perioperative diabetes management. Check finger stick glucose on the morning of surgery. - Patient has been instructed on Preoperative DM medication management. RENAL: - Suggest following in the postoperative period due to patient's pre-existing renal disease: Avoid nephrotoxic medications Dose medications on estimated serum creatinine clearance Monitor fluid balance closely and avoid hypotension. Avoid dehydration / volume depletion Monitor serum creatinine HEMATOLOGY: Continue follow up with [facility]. Has regularly scheduled labs with them UpToDate article:Antithrombotic therapy for prosthetic heart valves: Management of bleeding and invasive procedures. Literature review current through: December 2017 When to bridge ? For patients who are undergoing invasive or surgical procedures with 1) significant bleeding risk for which an INR <1.5 is considered essential and 2) who have either a) a mechanical aortic valve plus an additional thromboembolic risk factor (atrial fibrillation, previous thromboembolism, hypercoagulable condition, left ventricular ejection fraction <30 percent, or more than one mechanical valve), b) older generation mechanical aortic valve, or c) mechanical mitral or tricuspid valve replacement, bridging anticoagulation is recommended during the perioperative time period when the INR is subtherapeutic. Choice of heparin for bridging ? Either intravenous UFH or subcutaneous LMWH is used for bridging anticoagulation for most procedures, when bridging is required Continue same medications perioperatively except for those outlined in the patient instructions. Given instruction on which medications are safe to take on AM of surgery. Discussed above with patient and daughter. Answered all their questions. Discussed bleeding risk with above as well as indication for all recommendations Patient is optimally prepared for surgery pending labs and disucssion with GI regarding coumadin and determination of bridging plan if need to be off coumadin for planned procedure Patient Instructions: As per patient instructions section. General Preoperative/Medication/Fasting Instructions Irma-operative Anticoagulation Management Instructions Preoperative Diabetes Medication Instructions I have discussed the above recommendations with the patient in detail, in radhika and lay terms, and provided a written summary of instructions as needed. We have discussed that no surgery is without risk, but that the goal of preoperative assessment is to optimize that risk, and that was clearly understood by the patient. I have given ample opportunity for the patient to ask questions, and answered all questions to their stated satisfaction. ADDENDUM: January 21; 3:27 PM Patient aware earlier about low battery life of pacemaker and that she is followed by her electric range assembler for it. Device check completed. Per Dr. Mckeon, patient needs to be off coumadin for the procedure. INR 3.[address] Mendoza's office. Spoke to his nurse Kandy who follows the patient's INR and coumadin management. Communicated to her the patient's INR today and she will make adjustments to the coumadin based on today's INR. She is aware of the recent hospitalization with elevated INR. She will discuss with Dr. Mendoza regarding pre-op anticoagulation management in this setting. I am deferring to their office regarding pre-op anticoagulation management. They have apparently also been discussing these issues of anticoagulation in her setting of significant anemia. They will call me back to update me with their recommendations. Once patient's CBC and BMP recsults avialble, I will fax it to their office ( ). ADDENDUM: January 22, 2018 840 AM Labs reviewed. Hb has been stable and even improved. Platelets also within acceptable limits for the procedure. Creatinine also with GFR>30 so still within acceptable range for lovenox (addendum but will need to be closely monitored for bleeding if placed on lovenox). Will fax results to Dr. Mendoza's offioce. ADDENDUM: January 22, 2018 9:39 AM Received call from Dr. Mendoza's office (Kandy). They will manage pre- and post-op anticoagulation management. Kandy has mentioned yesterday as well that Dr. Mendoza has looked into some recent data about anticoagulation bridging for patients who have mechanical valves who are at high risk for bleeding. They have previously bridged the patient with lovenox in the past but given recurrent issues with severe anemia and previous GI bleeding (addendum: of note also noted to have had left hip hematoma 3 days prior to recent admission this month) , they plan to just have patient hold coumadin for 3 days before the procedure (They will check INR day before the procedure and fax results to Dr. Mckeon's office. I provided them with Dr. Mckeon's phone numbers) and will not require bridging. They plan to have patient take the last dose of coumadin on February 02 and recheck INR post-op with plans to restart coumadin same day after the procedure. They will coordinate with Dr. Mckeon if he is okay with coumadin immediately post-op. Dr. Mendoza informed me that they will manage the pre-op and post-op anticoagulation, monitor patient during that time and will inform the patient on the plan. Direct number to Dr. Mendoza's office is [phone] (Kandy is Dr. Mendoza's nurse). Will forward this information as well to Dr. Mckeon. I will away on vacation starting February 04 and will be back February 25. Dr. Kinza Rodriguez will cover me for any patient-related questions between February [address] Roger Pugh from February 10 to . I called the patient and updated her on the above plan and she knows that she will hear from Dr. Mendoza's office regarding periop bridging. Aware of risk/befit under these circumstances. She is appreciative of the plan and verbalized understanding. ADDENDUM: January 23, 2018 Dr. Mckeon acknowledged apove plans. SIGNATURE: Teena Sue MD, FACP, PATIENT NAME: Emani Louis DATE OF SERVICE/OFFICE VISIT: January 21, 2018 Shaan Pryor 01/21/2018 12:05 PM Signed Emani Louis is a 77 year old female here today for visit in [facility] Referring Surgeon: Dr. Mckeon Date of Surgery: 02/06/2018 Planned Surgery/Procedure: COLONOSCOPY Allergies have been reviewed and verified. They include the following: Ambien [Zolpidem Tartrate]; Ativan [Lorazepam]; Mobic [Meloxicam]; Pamelor [Nortriptyline Hcl] Social History Substance Use Topics - Smoking status: Current Every Day Smoker Packs/day: 2.00 Years: 55.00 Types: Cigarettes - Smokeless tobacco: Never Used - Alcohol use No Medications reviewed and updated: Yes Shaan Sue MD, FACP, 01/21/2018 9:53 AM Addendum [facility] Patient Instructions for Surgery FOOD INSTRUCTIONS: Nothing to eat or drink after midnight before your procedure MEDICATION INSTRUCTIONS: Prior to Surgery: Do not take the following medications for 7 days prior to surgery: - any NSAID's (e.g. Motrin, Aleve, Arthrotec, Naproxen,etc) - any herbal preparations - Aspirin or aspirin containing products Do not take any Vitamin E / multivitamins for 10-14 days before surgery You are allowed to take Tylenol if needed until the day of surgery. If you are asked to hold coumadin for your colonoscopy by your surgeon, then you will need to take lovenox while off coumadin. Typically, coumadin is held 5 days before a procedure.. We will need to determine this first with your surgeon. MEDICATION INSTRUCTIONS: Day/Morning of Surgery: The following medications should be taken with sips of water: protonix, levothyroxine Tylenol, if needed for pain, can be taken on morning of surgery. Use your inhalers as needed / prescribed on day of surgery. Bring your inhaler with you to the hospital. ANTICOAGULATION BRIDGING INSTRUCTIONS (only if your surgeon wants you to be off coumadin for the COLON BALLOON ENTEROSC GEN ANES then you can follow these following instructions. We can then prescribe your lovenox if you need to be off coumadin for surgery or coordinate this with your coumadin clinic) Please follow the directions below for your Coumadin and Lovenox management prior to surgery. Before Surgery: 1) Take last dose of Coumadin on February 01 2) Start Lovenox injections on morning of February 03 3) Continue Lovenox injections every 12 hours with last dose on morning of February 05 Surgery Date/Colonoscopy: 02/06/18 After Surgery: ? Your surgeon will advise you on the right time to restart both Coumadin and Lovenox. ? Please inform your Anticoagulation / Coumadin Monitoring Clinic regarding the above schedule. ? Please note that Lovenox injections are CRITICAL prior to surgery. You should fill the prescriptions as soon as possible and start taking them as advised. If you are not able to obtain this medication on time due to any reason or have additional questions about Lovenox please contact Teena Sue MD, FACP, [facility] Seek medical help right away for any evidence of bleeding. DIABETES MANAGEMENT INSTRUCTIONS: Eat a usual diet until the day prior to surgery unless indicated by your surgeon/physician. If your blood sugar is below 70 mg/dl at any time, treat with ? cup of apple juice or sage dulce maria, or 4 glucose tabs or 1 tube of oral glucose gel. MEDICATION INSTRUCTIONS: Prior to Surgery: ? Continue all diabetic pills as scheduled including the evening prior to surgery. ? Continue your current injectable medications (eg: insulin, symlin, byetta, etc) as scheduled INCLUDING EVENING AND BEDTIME. MEDICATION INSTRUCTIONS: Day/Morning of Surgery: ? Do not take your Diabetic pills. ? Do not take any injections like symlin, byetta or mealtime insulin. If you have any questions or concerns regarding today's visit please do not hesitate to contact the [facility] center at [phone] or [phone], ext [phone]. Signature: Teena Sue MD, FACP, [facility] Date: January 21, 2018 Referring Provider: SILVINO HU [[id number]] Allergies As of Date: 01/21/2018 Noted Allergy Reaction AMBIEN (ZOLPIDEM TARTRATE) 09/06/2005 16 - Unknown ATIVAN (LORAZEPAM) 09/06/2005 14 - Other: See Comments Comments: just didn't work MOBIC (MELOXICAM) 09/06/2005 16 - Unknown PAMELOR (NORTRIPTYLINE HCL) 09/06/2005 16 - Unknown Date Reviewed: 01/21/2018 Reviewed by: Shaan Pryor - Fully Assessed Primary Visit Diagnosis:Pre-operative examination [Z01.818] Other Visit Diagnoses:Anemia in stage 3 chronic kidney disease [N18.3, D63.1] Thrombocytopenia (HCC) [D69.6] Type 2 diabetes mellitus without complication, with long-term current use of insulin (HCC) [E11.9, Z79.4] Congestive heart failure, unspecified HF chronicity, unspecified heart failure type (HCC) [I50.9] Chronic hypotension [I95.89] Pacemaker [Z95.0] CKD (chronic kidney disease), stage III [N18.3] Chronic anticoagulation [Z79.01] Order(s):CONSULT TO CARD DEVICE CLINIC [[id number]] Order #: [id number]: 1 TYPE + SCREEN,30 DAY [[id number]] Order #: [id number] FUTURE CBC + DIFF [SQCBCDIF] Order #: [id number] FUTURE BASIC METABOLIC PNL [SQBMP] Order #: [id number] FUTURE PROTHROMBIN TIME/PT [SQPT] Order #: [id number] FUTURE Prescriptions as of 01/21/2018 Sig: TRAZODONE 150 MG TABLET TAKE 1 OR 2 TABLETS BY MOUTH * COMPOUNDED PRESCRIPTION CBC and PT/INR Due: 01/16/2018* PANTOPRAZOLE 40 MG TABLET,DEL* Take 1 tablet by mouth once d* FOLIC ACID 1 MG TABLET Take 1 tablet by mouth once d* POTASSIUM CHLORIDE ER 20 MEQ * Take 1 tablet by mouth once d* WARFARIN 2.5 MG TABLET Take 1 tablet by mouth. From * ATORVASTATIN 20 MG TABLET Take 1 tablet by mouth once d* LANCETS Use as instructed 3 to 4 TIME* VENLAFAXINE 37.5 MG TABLET Take 1 tablet by mouth twice * BLOOD SUGAR DIAGNOSTIC, DRUM-* Test blood sugar(s) 4 times d* BLOOD-GLUCOSE METER, DRUM-TYP* Accu-Check Compact Plus Meter* LEVOTHYROXINE 50 MCG TABLET TAKE ONE TABLET BY MOUTH EVER* HYDROCODONE 5 MG-ACETAMINOPHE* Take 1 tablet by mouth every * MAGNESIUM 250 MG TABLET Take 250 mg by mouth once lynette* INSULIN GLARGINE (U-100) 100 * Inject 35 Units subcutaneousl* INSULIN LISPRO (U-100) 100 UN* Inject 15 Units subcutaneousl* PEN NEEDLE, DIABETIC 31 GAUGE* USE ONE NEEDLE FOR EACH DOSE FUROSEMIDE 20 MG TABLET Take 20 mg by mouth every oth* CYANOCOBALAMIN (VIT B-12) 1,0* Take 1 tablet by mouth once d* FERROUS SULFATE 325 MG (65 MG* Take 1 tablet by mouth three * ALBUTEROL SULFATE HFA 90 MCG/* Inhale 2 Puffs as instructed * DOCUSATE SODIUM 100 MG CAPSULE Take 1 capsule by mouth twice* CHOLECALCIFEROL (VITAMIN D3) * Take 500 Units by mouth once * TIOTROPIUM BROMIDE 2.5 MCG/AC* Inhale 2 Puffs as instructed * Medication notes this encounter FUROSEMIDE 20 MG TABLET >> Shaan Pryor 01/21/2018 9:10 AM >> SHAAN PRYOR SunJan 21, 2018 9:10 AM Problem List As Of Date 01/21/2018 Noted Resolved Asthma [J45.909] INVALID FOR* ESOPHAGEAL REFLUX [K21.9] INVALID FOR* Mixed hyperlipidemia [E78.2] INVALID FOR* LUMBAGO [M54.5] INVALID FOR* Osteoarthrosis, unspecified whether generalized* Fibromyalgia [M79.7] More... 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 Heart Valve Replaced by Other Means [Z95.4] INVALID FOR* More... Cardiac pacemaker in situ [Z95.0] INVALID FOR* More... Acute kidney failure with lesion of tubular nec*INVALID FOR*01/10/2013 More... 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 Hypothyroidism [E03.9] INVALID FOR* THROMBOCYTOPENIA NOS [D69.6] INVALID FOR* COPD (chronic obstructive pulmonary disease) (H*INVALID FOR* Chronic kidney disease, stage III (moderate) [N*INVALID FOR* PSVT (paroxysmal supraventricular tachycardia) *INVALID FOR*05/09/2012 More... Iron deficiency [E61.1] INVALID FOR*02/03/2013 Anemia in chronic renal disease [N18.9, D63.1] INVALID FOR* Infected cat bite [W55.01XA] INVALID FOR*05/09/2012 Atrial fibrillation (HCC) [I48.91] INVALID FOR* Adenomatous colon polyp [D12.6] INVALID FOR* Tobacco use disorder [F17.200] INVALID FOR* Cholelithiasis [K80.20] INVALID FOR*03/04/2014 Unspecified pleural effusion, loculated, right *INVALID FOR*03/04/2014 Dizziness and giddiness [R42] INVALID FOR* Carotid artery disease without cerebral infarct*INVALID FOR* Other specified hypotension [I95.89] INVALID FOR* Transfusion history [Z92.89] INVALID FOR* More... Sleep apnea [G47.30] Moderate to severe pulmonary hypertension (HCC)*INVALID FOR* H/O mitral valve replacement [Z95.2] INVALID FOR* Type 2 diabetes mellitus with stage 3 chronic k*INVALID FOR* Vitamin D deficiency [E55.9] INVALID FOR* Anticoagulant long-term use [Z79.01] INVALID FOR* Iron deficiency anemia due to chronic blood los*INVALID FOR* Gastrointestinal hemorrhage [K92.2] INVALID FOR* Acute blood loss anemia [D62] INVALID FOR* Malnutrition of mild degree (HCC) [E44.1] INVALID FOR* GIB (gastrointestinal bleeding) [K92.2] INVALID FOR* Thrombocytopenia (HCC) [D69.6] DM type 2 (diabetes mellitus, type 2) (HCC) [E1*INVALID FOR* More... CHF (congestive heart failure) (HCC) [I50.9] INVALID FOR* More... Chronic hypotension [I95.89] Other instructions from your clinician: [facility] Patient Instructions for Surgery FOOD INSTRUCTIONS: Nothing to eat or drink after midnight before your procedure MEDICATION INSTRUCTIONS: Prior to Surgery: Do not take the following medications for 7 days prior to surgery: - any NSAID's (e.g. Motrin, Aleve, Arthrotec, Naproxen,etc) - any herbal preparations - Aspirin or aspirin containing products Do not take any Vitamin E / multivitamins for 10-14 days before surgery You are allowed to take Tylenol if needed until the day of surgery. If you are asked to hold coumadin for your colonoscopy by your surgeon, then you will need to take lovenox while off coumadin. Typically, coumadin is held 5 days before a procedure.. We will need to determine this first with your surgeon. MEDICATION INSTRUCTIONS: Day/Morning of Surgery: The following medications should be taken with sips of water: protonix, levothyroxine Tylenol, if needed for pain, can be taken on morning of surgery. Use your inhalers as needed / prescribed on day of surgery. Bring your inhaler with you to the hospital. ANTICOAGULATION BRIDGING INSTRUCTIONS (only if your surgeon wants you to be off coumadin for the COLON BALLOON ENTEROSC GEN ANES then you can follow these following instructions. We can then prescribe your lovenox if you need to be off coumadin for surgery or coordinate this with your coumadin clinic) Please follow the directions below for your Coumadin and Lovenox management prior to surgery. Before Surgery: 1) Take last dose of Coumadin on February 01 2) Start Lovenox injections on morning of February 03 3) Continue Lovenox injections every 12 hours with last dose on morning of February 05 Surgery Date/Colonoscopy: 02/06/18 After Surgery: ? Your surgeon will advise you on the right time to restart both Coumadin and Lovenox. ? Please inform your Anticoagulation / Coumadin Monitoring Clinic regarding the above schedule. ? Please note that Lovenox injections are CRITICAL prior to surgery. You should fill the prescriptions as soon as possible and start taking them as advised. If you are not able to obtain this medication on time due to any reason or have additional questions about Lovenox please contact Teena Sue MD, FACP, M Seek medical help right away for any evidence of bleeding. DIABETES MANAGEMENT INSTRUCTIONS: Eat a usual diet until the day prior to surgery unless indicated by your surgeon/physician. If your blood sugar is below 70 mg/dl at any time, treat with ? cup of apple juice or sage dulce maria, or 4 glucose tabs or 1 tube of oral glucose gel. MEDICATION INSTRUCTIONS: Prior to Surgery: ? Continue all diabetic pills as scheduled including the evening prior to surgery. ? Continue your current injectable medications (eg: insulin, symlin, byetta, etc) as scheduled INCLUDING EVENING AND BEDTIME. MEDICATION INSTRUCTIONS: Day/Morning of Surgery: ? Do not take your Diabetic pills. ? Do not take any injections like symlin, byetta or mealtime insulin. If you have any questions or concerns regarding today's visit please do not hesitate to contact the [facility] center at [phone] or [phone], ext [phone]. Signature: Teena Sue MD, [facility], [facility] Date: January 21, 2018 Encounter Status:Closed by ISAAC SUE [facility] TEENA Salas MD on 01/21/18 PROGRESS Observed: 01/21/2018 Status: COMPLETED Source: [place] 9:02 AM [facility] REPOSITORY HNO ID: [id number] Author: Shaan Pryor Service: (none) Author Type: (none) Type: Progress Notes Filed: 01/21/2018 12:05 PM Note Text: Emani Louis is a 77 year old female here today for visit in [facility] Referring Surgeon: Dr. Mckeon Date of Surgery: 02/06/2018 Planned Surgery/Procedure: COLONOSCOPY Allergies have been reviewed and verified. They include the following: Ambien [Zolpidem Tartrate]; Ativan [Lorazepam]; Mobic [Meloxicam]; Pamelor [Nortriptyline Hcl] Social History Substance Use Topics - Smoking status: Current Every Day Smoker Packs/day: 2.00 Years: 55.00 Types: Cigarettes - Smokeless tobacco: Never Used - Alcohol use No Medications reviewed and updated: Yes Shaan Pryor HISTORY PHYSICAL Observed: 01/18/2018 Status: COMPLETED Source: [place] 2:16 PM [facility] REPOSITORY HNO ID: [id number] Author: Teena Sue Service: (none) Author Type: Physician Type: HANDP Filed: 01/24/2018 8:47 AM Note Text: HISTORY AND PHYSICAL EXAMINATION ([facility]) SERVICE DATE: 01/21/2018 PRIMARY CARE PHYSICIAN: Kodak Muñoz MD CHIEF COMPLAINT/HISTORY OF PRESENT ILLNESS: Ms. Louis is a 77 year old female referred to me for preoperative evaluation. My final recommendations will be communicated back to the requesting physician/surgeon by the way of the shared medical record. Referring Surgeon: Dr. Mckeon Date of Surgery: 02/06/2018 Planned Surgery/Procedure: COLON BALLOON ENTEROSC GEN ANES Indication for Planned Surgery / Procedure: Hx of anemia Accompanied by daughter. Patient presents for perioperative evaluation. Hx of Chronic anemia/thrombocytopaenia and followed closely by heme for iron and darbopoetin injections. Last darbo was 01/17 and last iron infusion was 6 weeks ago apparently. Has hx of GI bleeds with multiple work-up. Recently discharged on January 15 for severe anemia requiring pRBC and FFP transfusions as well as vit K. Was seen by GI at that time who recommended double balloon enteroscopy but patient refused. ?She was transitioned back to coumadin given hx of St. Alex's mech valve and was discharged at that time. Denies any hematochezia or melena since discharge. Feels better since discharge. Reports that she follows with Data Center Engineer at [place] for her coumadin/INR and has always been bridged with lovenox if needs to be off coumadin for anything. Now scheduled for surgery. Refer to Assessment section for details of any comorbidities. Patient is Able to Perform the Following Physical Activity: Climb a flight of stairs or walk up a hill (5.50 METs) No chest pains. Has chronic exertonal SOB with activity which has been unchanged for years Patient's functional class is II-III based on self-reported physical activity. Significant Anesthesia Considerations: None. PAST MEDICAL/SURGICAL/FAMILY/SOCIAL HISTORY PAST MEDICAL HISTORY Diagnosis Date - Acute kidney failure with lesion of tubular necrosis (HCC) 08/19/[address] Tobias. - Adenomatous colon polyp 08/30/2012 - Anemia in chronic kidney disease 08/31/2011 - Atrial fibrillation (HCC) 05/09/2012 - Calculus of ureter 03/24/2008 - Cardiac pacemaker in situ 08/17/2008 Sick sinus syndrome. - CHF (congestive heart failure) (HCC) 07/24/2008 Mitral insufficiency. s/p MV replacement - Cholelithiasis 05/26/2013 - Chronic hypotension - Chronic kidney disease, stage III (moderate) 09/23/2009 - Chronic rhinitis - COPD (chronic obstructive pulmonary disease) ([facility]) - DDD (degenerative disc disease) - Diverticulosis of colon (without mention of hemorrhage) 10/17/05 - DM type 2 (diabetes mellitus, type 2) ([facility]) 08/15/2005 on insulin - Esophageal reflux 08/15/2005 - Fibromyalgia - Generalized osteoarthrosis, unspecified site - Heart valve replaced by other means 08/17/2008 #25, [facility] Alex. Mitral valve. - Iron deficiency 08/17/2011 - Lumbago 08/15/2005 - Melena - Moderate to severe pulmonary hypertension 09/21/2016 - Myalgia and myositis, unspecified - Other and unspecified hyperlipidemia 08/15/2005 - PSVT (paroxysmal supraventricular tachycardia) ([facility]) 04/10/2011 - Sleep apnea - Thrombocytopenia ([facility]) - Tricuspid regurgitation - Unspecified asthma(493.90) 08/15/2005 - Unspecified cardiovascular disease heart cath 12/15 PAST SURGICAL HISTORY Procedure Laterality Date - CAPSULE ENDOSCOPY SMALL BOWEL 12/03/2017 - COLONOSCOP W/ OR W/O [facility] 10/17/05 - COLONOSCOP W/ OR W/O [facility] SPE[facility] 08/25/2009 Colonoscopy - COLONOSCOP W/ OR W/O [facility] SPE[facility] 10/17/2012 Colonoscopy - COLONOSCOPY 11/26/2017 - EGD 01/16/2005 - EGD W/O OR W/BRUSH/WASH 08/25/2009 EGD - EGD W/O [facility] W[facility]BR[facility] W/BRUSH/WASH 10/30/2016 EGD - INSER DIAMOND PACER XVENOUS ATRIAL Perm pacemaker insert - LEFT HEART CATH,PERCUTANEOUS Cardiac cath, L heart - LIGATE FALLOPIAN TUBE Tubal ligation - PAST SURGICAL HISTORY OF cervical conization - PAST SURGICAL HISTORY OF 01/03/05 Heart Cath - PAST SURGICAL HISTORY OF Carpal tunnel surgery b/l wrists - PERICARDIAL FINE NEEDLE ASPIRATION 2008 Pericardial Window - REPLACEMENT OF MITRAL VALVE Mitral valve replacement, [facility] Alex #25. 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 Oxygen 3 LPM at HS and with exertion. Has cane, wheelchair as needed. No safety concerns. Camping trailer during summer. MEDICATIONS/ALLERGIES Current Outpatient Prescriptions: traZODone (DESYREL) 150 mg tablet TAKE 1 OR 2 TABLETS BY MOUTH DAILY AT BEDTIME Disp: 180 tablet Rfl: 3 COMPOUNDED PRESCRIPTION CBC and PT/INRDue: 01/16/2018 and 01/21/2018Dx: GI Bleeding, Chronic Coumadin Therapy. AnemiaResults to Dr. Kodak Muñoz Disp: 1 Each Rfl: [address] (PROTONIX) 40 mg tablet Take 1 tablet by mouth once daily. Disp: 90 tablet Rfl: 3 folic acid 1 mg tablet Take 1 tablet by mouth once daily. Disp: 90 tablet Rfl: 1 potassium chloride ER (K-DUR, KLOR-CON) 20 mEq tablet Take 1 tablet by mouth once daily. From outside pharmacy. Disp: Rfl: warfarin (COUMADIN) 2.5 mg tablet Take 1 tablet by mouth. From outside pharmacy. Disp: Rfl: atorvastatin (LIPITOR) 20 mg tablet Take 1 tablet by mouth once daily. Disp: 90 tablet Rfl: 0 Lancets lancets Use as instructed 3 to 4 TIMES DAILY insulin dep E 11.9 Disp: 400 Each Rfl: 1 venlafaxine (EFFEXOR) 37.5 mg tablet Take 1 tablet by mouth twice daily. Disp: 60 tablet Rfl: 5 Blood Sugar Diagnostic, Drum (ACCU-CHEK COMPACT TEST) strp Test blood sugar(s) 4 times daily. Dx: Type 2 DM - Uncontrolled E11.65 Insulin: Yes Disp: 100 Strip Rfl: 4 Blood-Glucose Meter, Drum-type (ACCU-CHEK COMPACT PLUS CARE) kit Accu-Check Compact Plus Meter Diagnosis: Type 2 DM - Uncontrolled E11.65 Disp: 1 Kit Rfl: 0 levothyroxine (SYNTHROID) 50 mcg tablet TAKE ONE TABLET BY MOUTH EVERY DAY Disp: 90 tablet Rfl: 1 HYDROcodone-acetaminophen (NORCO) 5-325 mg per tablet Take 1 tablet by mouth every 8 hours as needed for Pain. Disp: 45 tablet Rfl: 0 Magnesium 250 mg tab Take 250 mg by mouth once daily. Disp: Rfl: insulin glargine (LANTUS SOLOSTAR) 100 unit/mL (3 mL) inpn Inject 35 Units subcutaneously daily at bedtime. For blood glucose >150 Disp: 30 mL Rfl: 3 Insulin Lispro, Human, (HUMALOG KWIKPEN) 100 unit/mL inpn Inject 15 Units subcutaneously twice daily with meals for blood glucose >140. Add 2 units for every 50 of glucose >150. Disp: 30 mL Rfl: 3 insulin needles, DISPOSABLE, (PEN NEEDLE) 31 gauge x 5/16 ndle USE ONE NEEDLE FOR EACH DOSE Disp: 100 Each Rfl: 6 furosemide (LASIX) 20 mg tablet Take 20 mg by mouth every other day. Daily Disp: Rfl: cyanocobalamin (VITAMIN B-12) 1,000 mcg tab Take 1 tablet by mouth once daily. Disp: Rfl: 0 ferrous sulfate 325 mg (65 mg iron) EC tablet Take 1 tablet by mouth three times daily with meals. Disp: Rfl: 0 albuterol HFA (PROVENTIL HFA, VENTOLIN HFA) 90 mcg/actuation inhaler Inhale 2 Puffs as instructed every 6 hours as needed for Wheezing/Shortness of Breath. Disp: 1 Inhaler Rfl: 6 docusate sodium (COLACE) 100 mg capsule Take 1 capsule by mouth twice daily as needed for Constipation. Disp: Rfl: 0 Cholecalciferol, Vitamin D3, (VITAMIN D) 1,000 unit ORAL Tab Take 500 Units by mouth once daily. Disp: Rfl: tiotropium bromide (SPIRIVA RESPIMAT) 2.5 mcg/actuation mist Inhale 2 Puffs as instructed once daily. Inhale two puffs once daily. Disp: Rfl: 0 No current facility-administered medications for this visit. ALLERGIES Allergen Reactions - Ambien [Zolpidem Ta* Unknown - Ativan [Lorazepam] Other: See Comments just didn't work - Mobic [Meloxicam] Unknown - Pamelor [Nortriptyl* Unknown REVIEW OF SYSTEMS General: No weight loss, malaise or fevers. Neuro: No history of TIA's, stroke, HVAC INSTALLATION TECHNICIAN tumor, impaired sensorium, hemiplegia, paraplegia or quadriplegia. R hand dining room host weakness chronic Respiratory: COPD, Denies asthma. COPD with chronic exertional dyspnea that is stable. Takes inhalers only as needed apparently which is around once a month apparenty;. Has pulmo HTN. Denies hx of SHOSHANA or recent cough or colds (last cold was early December) Cardiovascular: Chronic hypotension-currently asymptomatic. Hx of MV replacement ([facility]. Alex's) on coumadin, Has a fib. 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 Denies hx of VTE. No chest pain GI: Denies hx of GERD. Denies n/v/abd pain, melena,hematochezia, hematochezia. Hx of GI bleed in the past. -see HPI : No history of UTI in past 6 weeks. No history of renal failure. Not currently on or requiring dialysis. No history of symptoms or problems. TECHNICAL SERVICES REP: No vaginal bleeding due to menopause and no abnormal vaginal discharge. Endocrine: Diabetes Mellitus on insulin, Hypothyroidism, Denies any steroid in the past year Hematology: Anemia, chronic thrombocytopenia, followed by Heme. On coumadin. Not on ASA Oncology: No history of CA metastasis, chemo within 30 days, or radiotherapy within 90 days. No history of oncological symptoms or problems. Psych: Anxiety Skin: Negative for lesions, rash, and itching. PHYSICAL EXAM VITALS: BP 84/48 Pulse 106 Temp (Src) 98 (Oral) Ht 5' 2 (1.58m) Wt 143 lb (64.9kg) SpO2 95% BMI 26.15 kg/(m2). General: Alert, oriented, cooperative, healthy appearance. Not in distress Skin: Normal color, no rash, no lesions. HEENT: +upper dentures Pupils equal, round and reactive. Cardiovascular: Normal S1 AND S2, grade 3/6 systolic murmur base. +PPM palpable upper left anterior chest Lungs: Normal breath sounds, no wheezes or crackles. Abdomen: Soft, non-tender, no rigidity. Extremities: No deformity, no edema or tenderness, no joint swelling or clubbing. Neurological: Alert, Normal cognition and motor skills. Pulses: Radial pulses, B. +2. No carotid bruit ASSESSMENT Ms. Louis is a 77 year old female referred to me for preoperative evaluation. Patient has the following medical comorbidities which might affect the perioperative course: - Paroxysmal?A.fib, on coumadin, not on beta-blockers given chronic hypotension - s/p MVR with [facility]. Alex. valve 2007. 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 Controlled with prn inhalers? - hx of GIB, capsule studies in November 2017 showed: non bleeding duodenal angiectasiia, single non-bleeding colonic angiodysplastic lesion. s/p argon plasma coagulation (APC) and clip placement. Recently discharged from [facility] for weakness, anemia. No signs or symptoms of GI bleeding even with current anticoagulation since discharge. -Hx of chronic hypotension SBP 70's with Heme and 63/42 with PCP visit in November. SBP 80 with recent hospital stay. Asymptomatic -Chronic thrombocytopenia, baseline 80-90K, stable, followed by local Heme -Chronic anticoagulation. ??Patient's RCRI (Revised Cardiac Risk Index: CAD/CHF/Stroke or TIA/SCr>2/DM on Insulin/High Risk Surgery) score is 2 and is at moderate but acceptable risk for major adverse cardiac events in the perioperative period. Diagnostic tests reviewed for today's visit: Component Latest Ref Rng AND Units 01/13/2018 01/13/2018 01/17/2018 4:49 AM 11:32 AM Protein, Total 6.3 - 8.0 g/dL 5.0 (L) Albumin 3.9 - 4.9 g/dL 2.6 (L) Calcium 8.5 - 10.2 mg/dL 7.2 (L) Bilirubin, Total 0.2 - 1.3 mg/dL 0.2 Alkaline Phosphatase 32 - 117 U/L 63 AST 13 - 35 U/L 8 (L) Glucose 74 - 99 mg/dL 118 (H) BUN 7 - 21 mg/dL 13 Creatinine 0.58 - 0.96 mg/dL 1.42 (H) Sodium 136 - 144 mmol/L 146 (H) Potassium 3.7 - 5.1 mmol/L 4.1 Chloride 97 - 105 mmol/L 119 (H) CO2 22 - 30 mmol/L 21 (L) Anion Gap 9 - 18 mmol/L 6 (L) ALT 7 - 38 U/L 9 eGFR- 44 eGFR-All Other Races . 36 WBC 3.70 - 11.00 k/uL 3.72 RBC 3.90 - 5.20 m/uL 2.55 (L) Hemoglobin 11.5 - 15.5 g/dL 7.5 (L) 7.9 (L) Hematocrit 36.0 - 46.0 % 24.4 (L) 25.6 (L) MCV 80.0 - 100.0 fL 95.7 MCH 26.0 - 34.0 pG 29.4 MCHC 30.5 - 36.0 g/dL 30.7 RDW-CV 11.5 - 15.0 % 17.9 (H) Platelet Count 150 - 400 k/uL 72 (L) MPV 9.0 - 12.7 fL 12.2 Absolute nRBC <0.01 k/uL <0.01 WBC, [place] 3.70 - 11.00 k/uL 3.65 (L) RBC, [place] 3.90 - 5.20 m/uL 3.20 (L) Hemoglobin, [place] 11.5 - 15.5 g/dL 9.4 (L) Hematocrit, [place] 36.0 - 46.0 % 31.2 (L) MCV, [place] 80.0 - 100.0 fL 97.5 MCH, [place] 26.0 - 34.0 pg 29.4 MCHC, [place] 30.5 - 36.0 g/dL 30.1 (L) RDW, [place] 11.5 - 15.0 % 17.5 (H) Platelet Cnt, [place] 150 - 400 k/uL 87 (L) MPV, [place] 9.0 - 12.7 fL 11.1 Absol Gran Count 1.45 - 7.50 k/uL 2.98 PT Sec 9.7 - 13.0 sec 24.6 (H) PT INR 0.9 - 1.3 2.5 (H) Discharge Summary 01/15/18: This is a 77 year old with PMHx: - paroxysmal?A.fib. - MVR with [facility]. Alex. valve 2007. On warfarin at home, PT/INRtarget of2.0 - 3.0 because of bleeding and thrombocytopenia as outlined by Hematology - HF, taking lasix 20 mg q48h. ? - SSS, s/p PM 2008 - HLD, using Lipitor 20 mg. - CKD 3 with hx of ATN and MAX 2008, b/l 1.5-1.8 - Anemia of Chronic disease, taking Iron for 4 years, 325 TID, taking B12 and folic acid. - DM, using 35 units at bedtime, and Humalog 15 + SS2 with meals. - Hypothyroid, using Synthroid 50 Qd - DJD, using ?[place]. - Moderate to severe pulmonary hypertension, 2016 - COPD, on 2 L oxygen at home PRN. Using Albuterol, Spiriva. ? - Depression (using Venlafaxine), Trazodone (to help sleep). Feels depressed, which is getting worse recently, feels that she might hurt herself. - hx of GIB, ?2-3 years ago, w/u included endoscopy and capsule endoscopy at that time and there was no source of bleeding, In addition, she had recent scops as listed below: Capsule endoscopy 12/03/17:?Non bleeding duodenal angiectasia. ?Abnormal fold in the distal/terminal ileum, exact nature of which cannot be determined. Colonoscopy 11/26/17:?Diverticulosis in the sigmoid colon and in the descending colon. A single non-bleeding colonic angiodysplastic lesion. Treated with argon plasma coagulation (APC). Clips were placed. - She p/w weakness to OSH ([place] [facility]), as she was too weak to stand and noted to be hypotensive and tachycardic. Hg was 4.5, and INR was 19.5, given Vitamin K and 2 units of RBCs, 2 L fluid bolus, ?80 mg IV protonix and started on a protonix gtt. ??She was then transferred to [place] [facility] ICU?Hgb on presentation was 7.2. Patient received 2 more units of pRBC and FFP. Repeat Hgb was 9.7.?She had one melanotic while there. She was transferred here for further w/u. -She had a recent fall (3 days ago)?on the hip with L hip hematoma. ?She had black stool as she was taking iron supplement. She mentioned that some times has bright blood per rectum, no N/V?or hematemesis, no abd pain. She noted worsening SOB in the last 3 days. Her had PNA 10 days ago with cough/green sputum, she denies ?Fever but has some cough with white sputum. -Of note, she was scheduled for a double balloon enteroscopy on February 06, 2018. Patient recieves weekly Arnesp or blood transfusions. ?-PER GI CONSULT NOTE: Patient would not like to have this procedure performed on this admission. That is not my preference but the patient has a right to direct her own medical care and can have the procedure that is scheduled on 02/06. -Patient was transferred to the [facility]. Patient was being transitioned back to Coumadin for her MVR. Patient had no evidence of recurrent GI bleeding with no melena or hematochezia. Patient had a mild drop in her Hgb today from 7.5. This was rechecked in the afternoon and was 7.9. Patient will be transfused one additional units of PRBC to bring her Hgb > 8.0. Patients INR today was 2.5. She has been on Coumadin 2.5mg daily for many months and has been stable on this dose in the past. INR check on Sunday. -Patient nearly left AMA on 01/12/2018 after we refused to send her on Lovenox. We explained her that Lovenox is not approved for mechanical valves and her INR is not 2.5 so it puts her at risk for thrombus formation. ?-NOTE: Patient is overall high risk for rebleeding. I asked if patient wished to have enteroscopy during this admission and she refused. I even talked with the patients daughter instructing her of this. Instructed that it is imperative that she have her labs rechecked on Sunday and if any problems sooner return to ER for evaluation. ? EKG 01/09/18: Diagnosis:ATRIAL FIBRILLATION NONSPECIFIC ST AND T WAVE ABNORMALITY Echo 01/09/18: CONCLUSIONS: - Exam indication: Hypotension - The left ventricle is small. Left ventricular systolic function is normal. EF = 58 ? 5% (2D biplane) Left ventricular diastolic function was not evaluated due to prosthetic valve. - The right ventricle is dilated. Right ventricular systolic function is mildly decreased. RV not well seen in apical views, ? mild dysfunction based on subcostal ?assessment. - The left atrial cavity is moderately dilated. - The right atrial cavity is dilated. 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 There is mild (1+) mitral valve regurgitation. The peak gradient is 25 mmHg and the mean ?gradient is 12 mmHg. At least mild MR suggested, assessment limited by shadowing. ?Mitral gradients are increased, but at HR of 100 bpm. - There is severe (3+ - 4+) tricuspid valve regurgitation. There is systolic flow reversal evident in the hepatic veins, suggesting TR is in the 3-4+ range. - Estimated right ventricular systolic pressure is 73 mmHg consistent with moderately severe pulmonary hypertension. Estimated right atrial pressure is 10 mmHg. - Exam was compared with the?prior CC echocardiographic exam performed on 06/11/2008. There has been interval MVR. CXR 01/09/18: IMPRESSION: Lines, tubes, and devices: ?Permanent pacemaker leads to right heart chambers Lungs and pleura: ?Right effusion with hazy and patchy opacity right base, stable. ?Diminished reticular opacities since prior, likely improved edema. ?No overt pneumothorax. Cardiomediastinal silhouette: ?No substantial interval change post sternotomy for valve repair Hematology 12/20/17: ASSESSMENT:?76-year-old female with history of chronic renal failure (stage III), and PAN cirrhosis, and pancytopenia and chronic anemia, iron deficiency?secondary to GI bleeding on warfarin. ? PLAN: - continue injectafer 750mg IV weekly x 2; keep iron saturation above 20% - Repeat iron study monthly and monitor CBC weekly for possible blood transfusion or Aranesp injection if hemoglobin is less than 8.0 for?blood transfusion or hemoglobin less than 10 for Aranesp injection every 14 days. - Follow-up with PCP and cardiology regarding anticoagulation therapy. Keep ?PT/INR in 2.0 - 3.0 because of bleeding and thrombocytopenia. I spent 25?minutes in the visit, with more than 50% of the total [id number] time of the visit in counseling / coordination of care. - avoid aspirin and NSAIDs; dietary consult to maintain a proper diet with warfarin therapy. - repeat CBC, CMP, iron study OV in 3 months. PLAN/RECOMMENDATIONS CARDIAC: Will need to determine with Dr. Mckeon if she even needs to be off coumadin for the procedure. If she does, needs to be bridged. IV heparin preferable over lovenox given CKD III (though crea is still acceptable for lovenox bridging dose), thrombocytopenia and recent hospitalization for severe anemia. This might allow for closer monitoring with bridging. Patient declines and prefers lovenox outpatient bridging which she has done in the past and that her electric range assembler arranges. If GI needs patient to be off couamdin, will then need to request her electric range assembler to facilitate bridging with closer monitoring. of note, patient also closely followed by [facility]. Labs ordered to rechceck CBC, INR and BMP. Patient aware to seek medical help right away for any signs and symptoms of anemia or GI bleeding Patient's electric range assembler is Dr. Mendoza [phone]. Device check ordered after discussion with the [facility] who recommended pre-appointment here PULMONARY: Patient is at optimal Pulmonary status for scheduled surgery / procedure. Suggest the following in the post-operative period: Continue bronchodilator medications, Aggressive bronchopulmonary hygiene and Early ambulation ENDOCRINE: DIABETES: - Initiate [facility] Guidelines for perioperative diabetes management. Check finger stick glucose on the morning of surgery. - Patient has been instructed on Preoperative DM medication management. RENAL: - Suggest following in the postoperative period due to patient's pre-existing renal disease: Avoid nephrotoxic medications Dose medications on estimated serum creatinine clearance Monitor fluid balance closely and avoid hypotension. Avoid dehydration / volume depletion Monitor serum creatinine HEMATOLOGY: Continue follow up with [facility]. Has regularly scheduled labs with them UpToDate article:Antithrombotic therapy for prosthetic heart valves: Management of bleeding and invasive procedures. Literature review current through: December 2017 When to bridge ? For patients who are undergoing invasive or surgical procedures with 1) significant bleeding risk for which an INR <1.5 is considered essential and 2) who have either a) a mechanical aortic valve plus an additional thromboembolic risk factor (atrial fibrillation, previous thromboembolism, hypercoagulable condition, left ventricular ejection fraction <30 percent, or more than one mechanical valve), b) older generation mechanical aortic valve, or c) mechanical mitral or tricuspid valve replacement, bridging anticoagulation is recommended during the perioperative time period when the INR is subtherapeutic. Choice of heparin for bridging ? Either intravenous UFH or subcutaneous LMWH is used for bridging anticoagulation for most procedures, when bridging is required Continue same medications perioperatively except for those outlined in the patient instructions. Given instruction on which medications are safe to take on AM of surgery. Discussed above with patient and daughter. Answered all their questions. Discussed bleeding risk with above as well as indication for all recommendations Patient is optimally prepared for surgery pending labs and disucssion with GI regarding coumadin and determination of bridging plan if need to be off coumadin for planned procedure Patient Instructions: As per patient instructions section. General Preoperative/Medication/Fasting Instructions Irma-operative Anticoagulation Management Instructions Preoperative Diabetes Medication Instructions I have discussed the above recommendations with the patient in detail, in radhika and lay terms, and provided a written summary of instructions as needed. We have discussed that no surgery is without risk, but that the goal of preoperative assessment is to optimize that risk, and that was clearly understood by the patient. I have given ample opportunity for the patient to ask questions, and answered all questions to their stated satisfaction. ADDENDUM: January 21; 3:27 PM Patient aware earlier about low battery life of pacemaker and that she is followed by her electric range assembler for it. Device check completed. Per Dr. Mckeon, patient needs to be off coumadin for the procedure. INR 3.[address] Mendoza's office. Spoke to his nurse Kandy who follows the patient's INR and coumadin management. Communicated to her the patient's INR today and she will make adjustments to the coumadin based on today's INR. She is aware of the recent hospitalization with elevated INR. She will discuss with Dr. Mendoza regarding pre-op anticoagulation management in this setting. I am deferring to their office regarding pre-op anticoagulation management. They have apparently also been discussing these issues of anticoagulation in her setting of significant anemia. They will call me back to update me with their recommendations. Once patient's CBC and BMP recsults avialble, I will fax it to their office ( ). ADDENDUM: January 22, 2018 840 AM Labs reviewed. Hb has been stable and even improved. Platelets also within acceptable limits for the procedure. Creatinine also with GFR>30 so still within acceptable range for lovenox (addendum but will need to be closely monitored for bleeding if placed on lovenox). Will fax results to Dr. Mendoza's offioce. ADDENDUM: January 22, 2018 9:39 AM Received call from Dr. Mendoza's office (Kandy). They will manage pre- and post-op anticoagulation management. Kandy has mentioned yesterday as well that Dr. Mendoza has looked into some recent data about anticoagulation bridging for patients who have mechanical valves who are at high risk for bleeding. They have previously bridged the patient with lovenox in the past but given recurrent issues with severe anemia and previous GI bleeding (addendum: of note also noted to have had left hip hematoma 3 days prior to recent admission this month) , they plan to just have patient hold coumadin for 3 days before the procedure (They will check INR day before the procedure and fax results to Dr. Mckeon's office. I provided them with Dr. Mckeon's phone numbers) and will not require bridging. They plan to have patient take the last dose of coumadin on February 02 and recheck INR post-op with plans to restart coumadin same day after the procedure. They will coordinate with Dr. Mckeon if he is okay with coumadin immediately post-op. Dr. Mendoza informed me that they will manage the pre-op and post-op anticoagulation, monitor patient during that time and will inform the patient on the plan. Direct number to Dr. Mendoza's office is [phone] (Kandy is Dr. Mendoza's nurse). Will forward this information as well to Dr. Mckeon. I will away on vacation starting February 04 and will be back February 25. Dr. Kinza Rodriguez will cover me for any patient-related questions between February [address] Roger Pugh from February 10 to . I called the patient and updated her on the above plan and she knows that she will hear from Dr. Mendoza's office regarding periop bridging. Aware of risk/befit under these circumstances. She is appreciative of the plan and verbalized understanding. ADDENDUM: January 23, 2018 Dr. Mckeon acknowledged apove plans. SIGNATURE: Teena Sue MD, FACP, PATIENT NAME: Emani Louis DATE OF SERVICE/OFFICE VISIT: January 21, 2018 PROTHROMBIN TIME W/INR Collected: 01/17/2018 Status: F Source: MARYBETH 10:34 AM [facility] REPOSITORY Order Comment: RESULT(S) PREVIOUSLY REPORTED ON MANUAL REQUISITION DURING DOWNTIME. TYPE CODE TESTS RESULT OUT OF RANGE REFERENCE UNITS LAB L300.4150 11.7-14.9 SECONDS High PROTIME 30.8 LAB L300.4200 Normal INR 2.9 Performed By: #### L300.3900 #### [facility] [address] [place], [address] MARYBETH ABS GR + CBC Collected: 01/17/2018 Status: F Source: [place] 9:28 AM [facility] REPOSITORY TYPE CODE TESTS RESULT OUT OF REFERENCE UNITS RANGE LAB WWBC 3.70-11.00 k/uL Low [place] WBC 3.65 LAB WRBC 3.90-5.20 m/uL Low [place] RBC 3.20 LAB WHGB 11.5-15.5 g/dL Low [place] Hemoglobin 9.4 LAB WHCT 36.0-46.0 % Low [place] Hematocrit 31.2 LAB WMCV 80.0-100.0 fL [place] MCV 97.5 LAB WMCH 26.0-34.0 pg [place] MCH 29.4 LAB WMCHC 30.5-36.0 g/dL Low [place] MCHC 30.1 LAB WRDW 11.5-15.0 % [place] High RDW 17.5 LAB WPLT 150-400 k/uL Low [place] Platelet Cnt 87 LAB WMPV 9.0-12.7 fL [place] MPV 11.1 Result Comment: Test performed at: [facility], [address] [place] [address]., [place] [address]. LAB ABGRAN 1.45-7.50 k/uL Absol Gran 2.98 Count CNPTOUTREACH Observed: 01/15/2018 Status: COMPLETED Source: [place] 12:00 AM [facility] REPOSITORY Patient Outreach (INTMWS) EMANI LOUIS ([id number]) 1940 F Date Time Provider Department 01/15/18 LATISHA IMHOF, NATI INTMWS During your visit today, we recorded the following information about you: Nati Holloway RN 05/24/2018 6:23 AM Signed TRANSITION CARE MANAGEMENT (TCM) INITIAL CONTACT Provider Action/FYI: Initial contact with patient post discharge, spoke to Emani. Patient identified by name and . SUMMARY: -Pt discharged from [facility] on 01/13/18. Adm 01/09 -Follow up appointment on . -Medication review done with patient. -Admitted for: Profound anemia CONCERNS: Pt doesn't want to have procedure but knows she really should. She feels all procedures have proven fruitless and this would be one more. Her daughter is an RN and has strongly urged her to continue. She states she averages 2 units of blood a month. NEW MEDICATIONS: She continues Fe TID. Discussed BMs but states she has more recently than she's had in a long time. No blood noted. MEDS HELD/DISCONTINUED: None BRIEF HOSPITAL COURSE: This is a 77 year old with PMHx: - paroxysmal?A.fib. - MVR with St. Alex. valve 2007. On warfarin at home, 2.5 daily. - HF, taking lasix 20 mg q48h. ? - SSS, s/p PM 2008 - HLD, using Lipitor 20 mg. - CKD 3 with hx of ATN and MAX 2008, b/l 1.5-1.8 - Anemia of Chronic disease, taking Iron for 4 years, 325 TID, taking B12 and folic acid. - DM, using 35 units at bedtime, and Humalog 15 + SS2 with meals. - Hypothyroid, using Synthroid 50 Qd - DJD, using ?Newbern. - Moderate to severe pulmonary hypertension, 2017 - COPD, on 2 L oxygen at home PRN. Using Albuterol, Spiriva. ? - Depression (using Venlafaxine), Trazodone (to help sleep). Feels depressed, which is getting worse recently, feels that she might hurt herself. ? - hx of GIB, ?2-3 years ago, w/u included endoscopy and capsule endoscopy at that time and there was no source of bleeding, In addition, she had recent scops as listed below: ? Capsule endoscopy 12/03/17:?Non bleeding duodenal angiectasia. ?Abnormal fold in the distal/terminal ileum, exact nature of which cannot be determined. ? Colonoscopy 11/26/17:?Diverticulosis in the sigmoid colon and in the descending colon. A single non-bleeding colonic angiodysplastic lesion. Treated with argon plasma coagulation (APC). Clips were placed. ? GI radionuclide scan 03/15/17:?there is normal perfusion of the tracer within the aora and common iliac arteries, homogeneous tracer uptake is seen within the liver which appears to be elarges as well as the spleen, there are no focal areas of extravasation to suggest a focal site of acute GIB at this time. ? EGD 10/30/16:?normal Esophagus, stomach and duodenum. ? - She p/w weakness to OSH ([place] [facility]), as she was too weak to stand and noted to be hypotensive and tachycardic. Hg was 4.5, and INR was 19.5, given Vitamin K and 2 units of RBCs, 2 L fluid bolus, ?80 mg IV protonix and started on a protonix gtt. ??She was then transferred to [place] [facility] ICU?Hgb on presentation was 7.2. Patient received 2 more units of pRBC and FFP. Repeat Hgb was 9.7.?She had one melanotic while there. She was transferred here for further w/u. ? She had a recent fall (3 days ago)?on the hip with L hip hematoma. ?She had black stool as she was taking iron supplement. She mentioned that some times has bright blood per rectum, no N/V?or hematemesis, no abd pain. She noted worsening SOB in the last 3 days. Her had PNA 10 days ago with cough/green sputum, she denies ?Fever but has some cough with white sputum. ? Of note, she was scheduled for a double balloon enteroscopy on February 06, 2018. Patient recieves weekly Arnesp or blood transfusions. ? PER GI CONSULT NOTE: Patient would not like to have this procedure performed on this admission. That is not my preference but the patient has a right to direct her own medical care and can have the procedure that is scheduled on 02/06. ? Patient was transferred to the [facility]. Patient was being transitioned back to Coumadin for her MVR. Patient had no evidence of recurrent GI bleeding with no melena or hematochezia. Patient had a mild drop in her Hgb today from 7.5. This was rechecked in the afternoon and was 7.9. Patient will be transfused one additional units of PRBC to bring her Hgb > 8.0. Patients INR today was 2.5. She has been on Coumadin 2.5mg daily for many months and has been stable on this dose in the past. INR check on Sunday. ? Patient nearly left AMA on 01/12/2018 after we refused to send her on Lovenox. We explained her that Lovenox is not approved for mechanical valves and her INR is not 2.5 so it puts her at risk for thrombus formation. ? NOTE: Patient is overall high risk for rebleeding. I asked if patient wished to have enteroscopy during this admission and she refused. I even talked with the patients daughter instructing her of this. Instructed that it is imperative that she have her labs rechecked on Sunday and if any problems sooner return to ER for evaluation. ? ? 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 From * X ATORVASTATIN 20 MG TABLET Take 1 tablet by mouth once d* LANCETS Use as instructed 3 to 4 TIME* X VENLAFAXINE 37.5 MG TABLET Take 1 tablet by mouth twice * X BLOOD SUGAR DIAGNOSTIC, DRUM-* Test blood sugar(s) 4 times d* BLOOD-GLUCOSE METER, DRUM-TYP* Accu-Check Compact Plus Meter* X LEVOTHYROXINE 50 MCG TABLET TAKE ONE TABLET BY MOUTH EVER* HYDROCODONE 5 MG-ACETAMINOPHE* Take 1 tablet by mouth every * MAGNESIUM 250 MG TABLET Take 250 mg by mouth once lynette* X INSULIN GLARGINE (U-100) 100 * Inject 35 Units subcutaneousl* X INSULIN LISPRO (U-100) 100 UN* Inject 15 Units subcutaneousl* PEN NEEDLE, DIABETIC 31 GAUGE* USE ONE NEEDLE FOR EACH DOSE FUROSEMIDE 20 MG TABLET Take 20 mg by mouth every oth* CYANOCOBALAMIN (VIT B-12) 1,0* Take 1 tablet by mouth once d* X FERROUS SULFATE 325 MG (65 MG* Take 1 tablet by mouth three * Patient taking differently: Take 1.5 tablets by mouth twi* ALBUTEROL SULFATE HFA 90 MCG/* Inhale 2 Puffs as instructed * TIOTROPIUM BROMIDE 2.5 MCG/AC* Inhale 2 Puffs as instructed * DOCUSATE SODIUM 100 MG CAPSULE Take 1 capsule by mouth twice* CHOLECALCIFEROL (VITAMIN D3) * Take 500 Units by mouth once * Problem List As Of Date 01/15/2018 Noted Resolved Asthma [J45.909] INVALID FOR* ESOPHAGEAL REFLUX [K21.9] INVALID FOR* Mixed hyperlipidemia [E78.2] INVALID FOR* LUMBAGO [M54.5] INVALID FOR* Osteoarthrosis, unspecified whether generalized* Fibromyalgia [M79.7] More... 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 Heart Valve Replaced by Other Means [Z95.4] INVALID FOR* More... Cardiac pacemaker in situ [Z95.0] INVALID FOR* More... Acute kidney failure with lesion of tubular nec*INVALID FOR*01/10/2013 More... 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 Hypothyroidism [E03.9] INVALID FOR* THROMBOCYTOPENIA NOS [D69.6] INVALID FOR* COPD (chronic obstructive pulmonary disease) (H*INVALID FOR* Chronic kidney disease, stage III (moderate) [N*INVALID FOR* PSVT (paroxysmal supraventricular tachycardia) *INVALID FOR*05/09/2012 More... Iron deficiency [E61.1] INVALID FOR*02/03/2013 Anemia in chronic renal disease [N18.9, D63.1] INVALID FOR* Infected cat bite [W55.01XA] INVALID FOR*05/09/2012 Atrial fibrillation (HCC) [I48.91] INVALID FOR* Adenomatous colon polyp [D12.6] INVALID FOR* Tobacco use disorder [F17.200] INVALID FOR* Cholelithiasis [K80.20] INVALID FOR*03/04/2014 Unspecified pleural effusion, loculated, right *INVALID FOR*03/04/2014 Dizziness and giddiness [R42] INVALID FOR* Carotid artery disease without cerebral infarct*INVALID FOR* Other specified hypotension [I95.89] INVALID FOR* Transfusion history [Z92.89] INVALID FOR* More... Sleep apnea [G47.30] Moderate to severe pulmonary hypertension (HCC)*INVALID FOR* H/O mitral valve replacement [Z95.2] INVALID FOR* Type 2 diabetes mellitus with stage 3 chronic k*INVALID FOR* Vitamin D deficiency [E55.9] INVALID FOR* Anticoagulant long-term use [Z79.01] INVALID FOR* Iron deficiency anemia due to chronic blood los*INVALID FOR* Gastrointestinal hemorrhage [K92.2] INVALID FOR* Acute blood loss anemia [D62] INVALID FOR* Malnutrition of mild degree (HCC) [E44.1] INVALID FOR* GIB (gastrointestinal bleeding) [K92.2] INVALID FOR* Encounter Status:Closed by ROVERTO PRODUSER on 05/24/18 CNDS Observed: 01/13/2018 Status: COMPLETED Source: [place] 4:28 PM [facility] REPOSITORY HNO ID: [id number] Author: Jon Diamond (Pa) Service: Hospital Medicine Author Type: Physician [employer] Type: Discharge Summaries Filed: 01/13/2018 4:39 PM Note Text: Attestation signed by Fay Fierro at 01/15/2018 12:56 PM [facility] STAFF PHYSICIAN NOTE OF PERSONAL INVOLVEMENT IN CARE I have reviewed the discharge summary obtained and documented by the physician community relations assistant and I personally participated in the hudson components. I have discussed the case and management of the patient's care. The following comments revise or confirm relevant hudson components of their note. IMPRESSION AND PLAN: SIGNATURE: Fay Fierro MD Pager: [phone] DATE/TIME: January 15, 2018, 12:56 PM DISCHARGE SUMMARY PATIENT NAME: Emani Louis ADMISSION DATE: 01/09/2018 DISCHARGE DATE: 01/13/2018 Attending Physician: Fay Fierro Reason for Hospitalization: Active Problems: Hypothyroidism Chronic kidney disease, stage III (moderate) GIB (gastrointestinal bleeding) Resolved Problems: * No resolved hospital problems. * Operations During Hospitalization: None Procedures During Hospitalization: No procedures performed Hospital Course This is a 77 year old with PMHx: - paroxysmal A.fib. - MVR with St. Alex. valve 2007. On warfarin at home, 2.5 daily. - HF, taking lasix 20 mg q48h. - SSS, s/p PM 2008 - HLD, using Lipitor 20 mg. - CKD 3 with hx of ATN and MAX 2009, b/l 1.5-1.8 - Anemia of Chronic disease, taking Iron for 4 years, 325 TID, taking B12 and folic acid. - DM, using 35 units at bedtime, and Humalog 15 + SS2 with meals. - Hypothyroid, using Synthroid 50 Qd - DJD, using Newbern. - Moderate to severe pulmonary hypertension, 2017 - COPD, on 2 L oxygen at home PRN. Using Albuterol, Spiriva. - Depression (using Venlafaxine), Trazodone (to help sleep). Feels depressed, which is getting worse recently, feels that she might hurt herself. ? - hx of GIB, 2-3 years ago, w/u included endoscopy and capsule endoscopy at that time and there was no source of bleeding, In addition, she had recent scops as listed below: Capsule endoscopy 12/03/17: Non bleeding duodenal angiectasia. ?Abnormal fold in the distal/terminal ileum, exact nature of which cannot be determined. Colonoscopy 11/26/17: Diverticulosis in the sigmoid colon and in the descending colon. A single non-bleeding colonic angiodysplastic lesion. Treated with argon plasma coagulation (APC). Clips were placed. GI radionuclide scan 03/15/17: there is normal perfusion of the tracer within the aora and common iliac arteries, homogeneous tracer uptake is seen within the liver which appears to be elarges as well as the spleen, there are no focal areas of extravasation to suggest a focal site of acute GIB at this time. EGD 10/30/16: normal Esophagus, stomach and duodenum. - She p/w weakness to OSH ([place] [facility]), as she was too weak to stand and noted to be hypotensive and tachycardic. Hg was 4.5, and INR was 19.5, given Vitamin K and 2 units of RBCs, 2 L fluid bolus, 80 mg IV protonix and started on a protonix gtt. She was then transferred to [place] [facility] ICU?Hgb on presentation was 7.2. Patient received 2 more units of pRBC and FFP. Repeat Hgb was 9.7.?She had one melanotic while there. She was transferred here for further w/u. She had a recent fall (3 days ago) on the hip with L hip hematoma. She had black stool as she was taking iron supplement. She mentioned that some times has bright blood per rectum, no N/V or hematemesis, no abd pain. She noted worsening SOB in the last 3 days. Her had PNA 10 days ago with cough/green sputum, she denies Fever but has some cough with white sputum. ? Of note, she was scheduled for a double balloon enteroscopy on February 06, 2018. Patient recieves weekly Arnesp or blood transfusions. PER GI CONSULT NOTE: Patient would not like to have this procedure performed on this admission. That is not my preference but the patient has a right to direct her own medical care and can have the procedure that is scheduled on 02/06. Patient was transferred to the [facility]. Patient was being transitioned back to Coumadin for her MVR. Patient had no evidence of recurrent GI bleeding with no melena or hematochezia. Patient had a mild drop in her Hgb today from 7.5. This was rechecked in the afternoon and was 7.9. Patient will be transfused one additional units of PRBC to bring her Hgb > 8.0. Patients INR today was 2.5. She has been on Coumadin 2.5mg daily for many months and has been stable on this dose in the past. INR check on Sunday. Patient nearly left AMA on 01/12/2018 after we refused to send her on Lovenox. We explained her that Lovenox is not approved for mechanical valves and her INR is not 2.5 so it puts her at risk for thrombus formation. NOTE: Patient is overall high risk for rebleeding. I asked if patient wished to have enteroscopy during this admission and she refused. I even talked with the patients daughter instructing her of this. Instructed that it is imperative that she have her labs rechecked on Sunday and if any problems sooner return to ER for evaluation. Transitions of Care Critical Issues: LAB MONITORING NEEDED: INR and CBC on Sunday SPECIALIST FOLLOW-UP: Heme/PCP/ GI Labs and Procedures Pending at Discharge: No pending results. Consulting Teams During Hospitalization: MICU and GI Patient Condition @ Discharge: Stable Discharge Disposition: Home/Self Care Discharge Physical Exam: VITAL SIGNS: BP 90/52 Pulse 93 Temp 36.8 ?C (98.3 ?F) (Oral) Resp 20 Ht 157.5 cm (5' 2) Wt 64.1 kg (141 lb 4.8 oz) SpO2 99% BMI 25.84 kg/m? General: NAD, resting comfortably in bed, polite and cooperative HEENT: Normocephalic, atraumatic, Pupils are equal, round, and reactive to light, EOMI, Mucus membranes moist, tongue is pink and midline Neck: Supple, trachea midline Lungs: CTA bilaterally without wheezes, rales, rhonchi. Unlabored respiratory effort Heart: Regular rate and rhythm without ectopy Abdomen: Soft, nontender, bowel sounds present in all choudhury, no HSM, no rebound or guarding. Musculoskeletal: Normal muscle bulk and tone. Appears to have full ROM of the UE/LE without deficit. Vascular: Cap refill brisk less than 2 sec. No cyanosis or edema. Neuro: CN II-XII intact. Answers all questions appropriately. Skin: No rashes, lesions, or cellulitis Discharge Medications: Current Discharge Medication List START taking these medications COMPOUNDED PRESCRIPTION CBC and PT/INR Due: 01/16/2018 and 01/21/2018 Dx: GI Bleeding, Chronic Coumadin Therapy. Anemia Results to Dr. Kodak Muñoz Qty: 1 Each Refills: 0 CONTINUE these medications which have NOT CHANGED pantoprazole DR (PROTONIX) 40 mg Take 40 mg by mouth once daily. Qty: 90 tablet Refills: 3 folic acid 1 mg Take 1 mg by mouth once daily. Qty: 90 tablet Refills: 1 potassium chloride ER (K-DUR, KLOR-CON) 1 tablet Take 1 tablet by mouth once daily. From outside pharmacy. warfarin (COUMADIN) 1 tablet Take 1 tablet by mouth. From outside pharmacy. atorvastatin (LIPITOR) 20 mg Take 20 mg by mouth once daily. Qty: 90 tablet Refills: 0 Associated Diagnoses:Mixed hyperlipidemia Lancets lancets Use as instructed 3 to 4 TIMES DAILY insulin dep E 11.9 Qty: 400 Each Refills: 1 venlafaxine (EFFEXOR) 37.5 mg Take 37.5 mg by mouth twice daily. Qty: 60 tablet Refills: 5 Blood Sugar Diagnostic, Drum (ACCU-CHEK COMPACT TEST) strp Test blood sugar(s) 4 times daily. 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 Any refills authorized will be placed on file. HYDROcodone-acetaminophen (NORCO) 1 tablet Take 1 tablet by mouth every 8 hours as needed for Pain. Qty: 45 tablet Refills: 0 Associated Diagnoses:Chronic low back pain, unspecified back pain laterality, with sciatica presence unspecified; Fibromyalgia Magnesium 250 mg Take 250 mg by mouth once daily. insulin glargine (LANTUS SOLOSTAR, BASAGLAR) 35 Units Inject 35 Units subcutaneously daily at bedtime. For blood glucose >150 Qty: 30 mL Refills: 3 Insulin Lispro, Human, (HUMALOG KWIKPEN) 100 unit/mL inpn Inject 15 Units subcutaneously twice daily with meals for blood glucose >140. Add 2 units for every 50 of glucose >150. Qty: 30 mL Refills: 3 Associated Diagnoses:Type 2 diabetes mellitus without complication, with long-term current use of insulin ([facility]) insulin needles, DISPOSABLE, (PEN NEEDLE) 31 gauge x 5/16 ndle USE ONE NEEDLE FOR EACH DOSE Qty: 100 Each Refills: 6 Associated Diagnoses:Type 2 diabetes mellitus without complication ([facility]) traZODone (DESYREL) 150-300 mg Take 150-300 mg by mouth daily at bedtime. Qty: 180 tablet Refills: 3 furosemide (LASIX) 20 mg 20 mg every other day. Daily Associated Diagnoses:Chronic congestive heart failure, unspecified congestive heart failure type ([facility]) cyanocobalamin (VITAMIN B-12) 1,000 mcg Take 1,000 mcg by mouth once daily. Refills: 0 Associated Diagnoses:Anemia in chronic renal disease ferrous sulfate 325 mg Take 325 mg by mouth three times daily with meals. Refills: 0 Associated Diagnoses:Anemia in chronic renal disease albuterol HFA (PROVENTIL HFA, VENTOLIN HFA) 2 Puffs Inhale 2 Puffs as instructed every 6 hours as needed for Wheezing/Shortness of Breath. Qty: 1 Inhaler Refills: 6 tiotropium bromide 2 Puffs Inhale 2 Puffs as instructed once daily. Inhale two puffs once daily. Refills: 0 Associated Diagnoses:Chronic obstructive pulmonary disease, unspecified COPD type ([facility]) docusate sodium (COLACE) 100 mg Take 100 mg by mouth twice daily as needed for Constipation. Refills: 0 cholecalciferol (VITAMIN D3) 1,000 Units Take 1,000 Units by mouth once daily. Future Appointments: Follow Up with PCP: Kodak Muñoz MD Future Appointments Date Time Provider Department Center 01/17/2018 9:00 AM [facility] 01/21/2018 9:15 AM Teena Sue IMPAMN INTM G Bldg 01/24/2018 8:00 AM LAB [facility] LAB[facility]B [facility] 01/31/2018 9:[address] [facility] 02/06/2018 7:15 AM INTERVIEW J1-1 CCHMN Mn H Fifi 02/06/2018 8:30 AM Latisha Mckeon GASTPR NAV AANDM Bl 02/07/2018 8:00 AM LAB [facility] MOB LABMOB [facility] 02/14/2018 9:00 AM [facility] 02/21/2018 8:00 AM LAB [facility] MOB LABMOB [facility] 05/07/2018 9:20 AM Kodak [facility] TIME OF CARE: Discharge Management: I personally spent greater than 30 minutes involved in the discharge management of this patient. Discharge planning of > 30 minutes includes time spent on review of hospital medical records/admission history, discussing discharge planning with nursing/consulting groups/case management, and with patient education, documentation, examination, and personally relaying discharge instructions. SIGNATURE: Jon Diamond PA-C PAGER: [phone] DATE: January 13, 2018 TIME: 4:28 PM CASE MANAGEM Observed: 01/13/2018 Status: COMPLETED Source: [place] 2:45 PM [facility] [place] REPOSITORY [facility] ID: [id number] Author: Louise Pinto Service: Care Management Author Type: Geotechnical Engineer Type: Care Mgt Progress Note Filed: 01/13/2018 2:46 PM Note Text: CARE MANAGEMENT PROGRESS NOTE SERVICE DATE: 01/13/2018 SERVICE TIME: 1:46 LOS: 4 days IM letter given to patient on 01/13/2018. SIGNATURE: Louise Pinto, PATIENT NAME: Emani Louis DATE: January 13, 2018 TIME: 2:45 PM PAGER/CONTACT #: [phone] TYPE AND SCREEN Collected: 01/13/2018 Status: F Source: [place] 1:27 PM [facility] REPOSITORY TYPE CODE TESTS RESULT OUT OF REFERENCE UNITS RANGE LAB %ABR A ABO/RH(D) POSITIVE LAB % Antibody NEG Screen Performed By: #### TSCR #### [facility] [address], [place] [address] PLAN OF CARE Observed: 01/13/2018 Status: COMPLETED Source: [place] 12:04 PM [facility] REPOSITORY [facility] ID: [id number] Author: Jon Diamond (Pa) Service: Hospital Medicine Author Type: Physician [employer] Type: Plan of Care Filed: 01/13/2018 12:06 PM Note Text: Sepsis Alert BPA per nursing this morning at 7: 30am Chronic Hypotension Mild intermitted tachycardia No signs of infection Mild oxygen requirement, but she uses oxygen at home Hgb low due to recent GIB Continue to monitor and notify if there is a change in the patients conditions. No signs of new infection Jon Diamond PA-C P: [id number] HEMATOCRIT Collected: 01/13/2018 Status: F Source: [place] 11:32 AM [facility] REPOSITORY TYPE CODE TESTS RESULT OUT OF REFERENCE UNITS RANGE LAB HCT 36.0-46.0 % Low Hematocrit 25.6 Performed By: #### HCT, HGB #### [facility] [address] [place], [place] [address] HEMOGLOBIN Collected: 01/13/2018 Status: F Source: [place] 11:32 AM [facility] REPOSITORY TYPE CODE TESTS RESULT OUT OF REFERENCE UNITS RANGE LAB HGB 11.5-15.5 g/dL Low Hemoglobin 7.9 Performed By: #### HCT, HGB #### [facility] [address] [place], [place] [address] PTT,ANTICOAG THERAPY Collected: 01/13/2018 Status: F Source: [place] 11:29 AM [facility] REPOSITORY TYPE CODE TESTS RESULT OUT OF RANGE REFERENCE UNITS LAB APTT 23.0-32.4 sec High APTT 61.8 Result Comment: Unfractionated Heparin Therapeutic Ranges: Standard Heparin Nomogram: 53 to 78 seconds (anti-Xa level of 0.3 to 0.7 U/ml) Low Dose/ACS Nomogram: 49 to 67 seconds (anti-Xa level of 0.2 to 0.5 U/ml) Stroke Treatment Nomogram: 49 to 67 seconds (anti-Xa level of 0.2 to 0.5 U/ml) Note: The APTT therapeutic range has been determined for the current lot of laboratory APTT reagent in use throughout the [facility]. Performed By: #### PTTAC #### [facility] [address] [address] PROGRESS Observed: 01/13/2018 Status: COMPLETED Source: [place] 8:00 AM [facility] REPOSITORY [facility] ID: [id number] Author: Jessie (Cindy) CINDY Galan Service: (none) Author Type: Registered Nurse Type: Progress Notes Filed: 01/13/2018 8:01 AM Note Text: Nursing Progress Note [employer]ital [employer] Assessment Note Patient Name: Emani Louis Patient Location: [facility] [id number] Patient Vitals in the past 4 hrs: 01/13/18 0730, Temp:36.6 ?C (97.9 ?F), Temp src:Oral, Pulse:100, Resp:24, SpO2:94 % 01/13/18 0600, BP:88/52, Temp:36.6 ?C (97.9 ?F), Temp src:Oral, Pulse:92, Resp:24, SpO2:93 % Status Change Related to: Respiratory;Other (sepsis alert ) Issues (See Nursing Clinical Assessment For Details) The Following People Were Notified: Physician [employer] Caregiver/Provider: Jon Diamond See Documentation Related to: Oxygen Therapy;Respiratory Other;Continuous Monitoring Additional Comments : This note was completed by: Jessie Galan RN PROTIME Collected: 01/13/2018 Status: F Source: [place] 4:49 AM [facility] REPOSITORY TYPE CODE TESTS RESULT OUT OF RANGE REFERENCE UNITS LAB PSEC 9.7-13.0 sec High PT Sec 24.6 LAB INR 0.9-1.3 High PT INR 2.5 Result Comment: Vitamin K Antagonist (VKA) Therapeutic Range: INR 2 to 3 (Target INR of 2.5) Note: For patients treated with VKA drugs, such as warfarin, the [place] [employer] 2012 Guideline recommends a therapeutic INR range of 2 to 3 (target INR of 2.5). This recommendation includes high-risk patients with antiphospholipid syndrome with previous arterial or venous thromboembolism, current-generation mechanical or bioprosthetic aortic heart valve replacement. Note: Patients with mechanical aortic valve replacement and additional risk factors for thromboembolic events (atrial fibrillation, previous thromboembolism, LV dysfunction, hypercoagulable conditions) or an older generation mechanical AVR (i.e., ball in-Cage) or any mechanical MVR should have a INR therapeutic range of 2.5 to 3.5 (target INR of 3). Italo GH, et al. Chest 2012, 141:7S-47S Phoebe RA, et al. [facility] 2017, 70: 252-289 Performed By: #### PT, CBC, CMP, MG1 #### [facility] [address] [place], [place] [address] CBC Collected: 01/13/2018 Status: F Source: [place] 4:49 AM [facility] REPOSITORY TYPE CODE TESTS RESULT OUT OF REFERENCE UNITS RANGE LAB WBC 3.70-11.00 k/uL WBC 3.72 LAB RBC 3.90-5.20 m/uL Low RBC 2.55 LAB HGB 11.5-15.5 g/dL Low Hemoglobin 7.5 LAB HCT 36.0-46.0 % Low Hematocrit 24.4 LAB MCV 80.0-100.0 fL MCV 95.7 LAB MCH 26.0-34.0 pG MCH 29.4 LAB MCHC 30.5-36.0 g/dL MCHC 30.7 LAB RDWCV 11.5-15.0 % RDW-CV High 17.9 LAB PLTCT 150-400 k/uL Low Platelet Count 72 Result Comment: Result checked and verified No clot detected. LAB MPV 9.0-12.7 fL MPV 12.2 LAB ABSNUC <0.01 k/uL Absolute nRBC <0.01 Performed By: #### PT, CBC, CMP, MG1 #### [facility] [address] [place], [place] [address] COMP METABOLIC PANEL Collected: 01/13/2018 Status: F Source: [place] 4:49 AM [facility] REPOSITORY TYPE CODE TESTS RESULT OUT OF REFERENCE UNITS RANGE LAB TP 6.3-8.0 g/dL Low Protein, Total 5.0 LAB ALB 3.9-4.9 g/dL Low Albumin 2.6 LAB CA 8.5-10.2 mg/dL Low Calcium, Total 7.2 LAB TBIL 0.2-1.3 mg/dL Bilirubin, Total 0.2 LAB ALKP 32-117 U/L Alkaline Phosphatase 63 LAB AST 13-35 U/L Low AST 8 LAB GLU 74-99 mg/dL Glucose High 118 Result Comment: The [place] [employer] (ADA) provides guidance for cutoff values for fasting glucose and random glucose. The ADA defines fasting as no caloric intake for at least 8 hours. Fas ting plasma glucose results between 100 to 125 mg/dL indicate increased risk for diabetes (prediabetes). Fasting plasma glucose results greater than or equal to 126 mg/dL meet the criteria for diagnosis of diabetes. In the absence of unequivocal hyperglycemia, results should be confirmed by repeat testing. In a patient with classic symptoms of hyperglycemia or hyperglycemic crisis, random plasma glucose results greater than or equal to 200 mg/dL meet the criteria for diagnosis of diabetes. Reference: Standards of Medical Care in Diabetes 2016, [place] [employer]. Diabetes Care. 2016.39(Suppl 1). LAB BUN 7-21 mg/dL BUN 13 LAB CRET 0.58-0.96 mg/dL Creatinine High 1.42 LAB NA 136-144 mmol/L Sodium High 146 LAB K 3.7-5.1 mmol/L Potassium 4.1 LAB CL 97-105 mmol/L Chloride High 119 LAB CO2 22-30 mmol/L Low CO2 21 LAB AGAP 9-18 mmol/L Low Anion Gap 6 LAB ALT 7-38 U/L ALT 9 LAB GFRAA eGFR- Amer. 44 LAB GFRNAA . eGFR-All Other Races 36 Result Comment: eGFR (Estimated GFR) Units of measure: mL/min/1.73 meters squared eGFR is derived from the reexpressed MDRD Study equation using the following parameters: serum creatinine, age, gender and race. The creatinine assay has been calibrated to be traceable to IDUT. An eGFR <60 mL/min/1.73m2 for >3 months is consistent with chronic kidney disease. Refer to KDOQI guidelines for clinical interpretation. In patients with unstable renal function, e.g. those with acute kidney injury, the eGFR may not accurately reflect actual GFR. Performed By: #### PT, CBC, CMP, MG1 #### [facility] [address] [place], [place] [address] MAGNESIUM Collected: 01/13/2018 Status: F Source: [place] 4:49 AM [facility] REPOSITORY TYPE CODE TESTS RESULT OUT OF REFERENCE UNITS RANGE LAB MG 1.7-2.3 mg/dL Magnesium 1.9 Performed By: #### PT, CBC, CMP, MG1 #### [facility] [address] [place], [place] [address] PTT,ANTICOAG THERAPY Collected: 01/13/2018 Status: F Source: [place] 4:49 AM [facility] REPOSITORY TYPE CODE TESTS RESULT OUT OF RANGE REFERENCE UNITS LAB APTT 23.0-32.4 sec High APTT 65.2 Result Comment: Unfractionated Heparin Therapeutic Ranges: Standard Heparin Nomogram: 53 to 78 seconds (anti-Xa level of 0.3 to 0.7 U/ml) Low Dose/ACS Nomogram: 49 to 67 seconds (anti-Xa level of 0.2 to 0.5 U/ml) Stroke Treatment Nomogram: 49 to 67 seconds (anti-Xa level of 0.2 to 0.5 U/ml) Note: The APTT therapeutic range has been determined for the current lot of laboratory APTT reagent in use throughout the [facility]. Performed By: #### PTTAC #### [facility] [address] [place], [place] [address] PTT,ANTICOAG THERAPY Collected: 01/12/2018 Status: F Source: [place] 10:00 PM [facility] REPOSITORY TYPE CODE TESTS RESULT OUT OF RANGE REFERENCE UNITS LAB APTT 23.0-32.4 sec High APTT 46.9 Result Comment: Unfractionated Heparin Therapeutic Ranges: Standard Heparin Nomogram: 53 to 78 seconds (anti-Xa level of 0.3 to 0.7 U/ml) Low Dose/ACS Nomogram: 49 to 67 seconds (anti-Xa level of 0.2 to 0.5 U/ml) Stroke Treatment Nomogram: 49 to 67 seconds (anti-Xa level of 0.2 to 0.5 U/ml) Note: The APTT therapeutic range has been determined for the current lot of laboratory APTT reagent in use throughout the [facility]. Performed By: #### PTTAC #### [facility] [address] [place], [place] [id number] CBC Collected: 01/12/2018 Status: F Source: [place] 10:00 PM [facility] REPOSITORY TYPE CODE TESTS RESULT OUT OF REFERENCE UNITS RANGE LAB WBC 3.70-11.00 k/uL WBC 4.35 LAB RBC 3.90-5.20 m/uL Low RBC 2.86 LAB HGB 11.5-15.5 g/dL Low Hemoglobin 8.2 LAB HCT 36.0-46.0 % Low Hematocrit 26.5 LAB MCV 80.0-100.0 fL MCV 92.7 LAB MCH 26.0-34.0 pG MCH 28.7 LAB MCHC 30.5-36.0 g/dL MCHC 30.9 LAB RDWCV 11.5-15.0 % RDW-CV High 17.6 LAB PLTCT 150-400 k/uL Low Platelet Count 69 Result Comment: No clot detected. LAB MPV 9.0-12.7 fL MPV 12.4 LAB ABSNUC <0.01 k/uL Absolute nRBC <0.01 Performed By: #### CBC #### [facility] [address] [place], [place] [id number] PROGRESS Observed: 01/12/2018 Status: COMPLETED Source: [place] 1:39 PM [facility] REPOSITORY HNO ID: [id number] Author: Jon Diamond (Pa) Service: Hospital Medicine Author Type: Physician [employer] Type: Progress Notes Filed: 01/12/2018 1:56 PM Note Text: HOSPITAL MEDICINE PROGRESS NOTE NIGHT AND WEEKEND COVERAGE: Days: 7:30am - 5:30pm, please page me for patient issues. Nights: 5:30pm - 7:30am, please page GIM overnight coverage pager [phone] SUBJECTIVE Interval HPI: No acute overnight events.Patient wishes to be discharged today. She is very upset about bot being discharged. Instructed our concerns to the patient of her bridging that we do not use Lovenox for bridging of mechanical valves and with her CrCl at 30, we would not recommend use. She started crying and stating we dont care about her mental health. I talked with the Daughter over the phone. Discussed with her the plan which she is very reasonable with. Denies fever/chills, THOMPSON, SOB, CP, N/V/C/D, dysuria. OBJECTIVE BP 82/54 Pulse 91 Temp 36.6 ?C (97.8 ?F) (Oral) Resp 20 Ht 157.5 cm (5' 2) Wt 64.1 kg (141 lb 4.8 oz) SpO2 97% BMI 25.84 kg/m? Physical Exam Performed: General: NAD, resting comfortably in bed, polite and cooperative HEENT: Normocephalic, atraumatic, Pupils are equal, round, and reactive to light, EOMI, Mucus membranes moist, tongue is pink and midline Neck: Supple, trachea midline Lungs: CTA bilaterally without wheezes, rales, rhonchi. Unlabored respiratory effort Heart: Regular rate and rhythm without ectopy Abdomen: Soft, nontender, bowel sounds present in all choudhury, no HSM, no rebound or guarding. Musculoskeletal: Normal muscle bulk and tone. Appears to have full ROM of the UE/LE without deficit. Vascular: Cap refill brisk less than 2 sec. No cyanosis or edema. Neuro: CN II-XII intact. Answers all questions appropriately. Skin: No rashes, lesions, or cellulitis Lines, Drains, and Airways Line Peripheral 01/09/18 0246 Admission to Hospital Short Right Arm 20 Gauge 3 days Peripheral 01/09/18 0445 Short Left Antecubital 20 Gauge 3 days Medications: Reviewed Diagnostic tests reviewed: Most recent imaging and labs CARE COORDINATION: ASSESSMENT AND PLAN 1. 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 - On Warfarin at home, 2.5 mg daily. - INR 1.8 this morning. - Instructed against Lovenox bridging due to valve and low CrCl - Continue Heparin and Coumadin Bridge 2. Chronic Diastolic CHF without exacerbation - Taking Lasix 20 mg q48h - Monitor Cr with this - Likely not helping her hypotension The left ventricle is small. Left ventricular systolic function is normal. EF = 58 ? 5% (2D biplane) Left ventricular diastolic function was not evaluated due to prosthetic valve. - The right ventricle is dilated. Right ventricular systolic function is mildly decreased. RV not well seen in apical views, ? mild dysfunction based on subcostal assessment. - The left atrial cavity is moderately dilated. - The right atrial cavity is dilated. 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 There is mild (1+) mitral valve regurgitation. The peak gradient is 25 mmHg and the mean gradient is 12 mmHg. At least mild MR suggested, assessment limited by shadowing. Mitral gradients are increased, but at HR of 100 bpm. - There is severe (3+ - 4+) tricuspid valve regurgitation. There is systolic flow reversal evident in the hepatic veins, suggesting TR is in the 3-4+ range. - Estimated right ventricular systolic pressure is 73 mmHg consistent with moderately severe pulmonary hypertension. Estimated right atrial pressure is 10 mmHg. 3. HLD - Continue using Lipitor 20 mg 4. Chronic Hypotension - BP usually runs low, in the 60/40s. - She is asymptomatic. - Continue to monitor BP - Please contact Primary Service if she becomes symptomatic 5. COPD - On 2 L oxygen at home PRN. Using Albuterol, Spiriva. Plan: - Continue Albuterol, and Spiriva. 6. CKD 3 with hx of ATN and MAX 2008 - CrCl 1.5-1.8 - Cr today 1.40 Plan: - Strict I/O, avoid nephrotoxic. - Estimated Creatinine Clearance: 30.5 mL/min (A) (based on SCr of 1.4 mg/dL (H)). 7. GIB with melena. - She had a hx of GIB 2-3 years ago, w/u included endoscopy and capsule endoscopy at that time and there was no source of bleeding - She had recent w/u for melena. Capsule endoscopy 12/03/17: Non bleeding duodenal angiectasia. ?Abnormal fold in the distal/terminal ileum, exact nature of which cannot be determined. C-scope 11/26/17: Diverticulosis in the sigmoid colon and in the descending colon. A single non-bleeding colonic angiodysplastic lesion. Treated with argon plasma coagulation (APC). Clips were placed. GI radionuclide scan 03/15/17: there is normal perfusion of the tracer within the aora and common iliac arteries, homogeneous tracer uptake is seen within the liver which appears to be elarges as well as the spleen, there are no focal areas of extravasation to suggest a focal site of acute GIB at this time. EGD 10/30/16: normal Esophagus, stomach and duodenum. - She presented to OSH with weakness, found to have Hg of 4.7, and INR 19.5. With +ve FOBT - s/p 4 RBCs and 2 FFP and vit K. - She was transferred here for further w/u. - Protonix 40 PO BID. - Restarted regular diet - GI consult, appreciate recs - transfuse to keep Hg > 8, and INR < 1.3. - Schedule for colonscopy with double balloon enteroscopy at the end of January. Declined wanting it during this admission. Please see GI consult note. 8. DM2 - Using 35 units at bedtime, and Humalog 15 + SS2 with meals. Plan: - Lantus 20 Qhs and SS2 9. Hypothyroid - using Synthroid 50 Qd, Plan: - will continue home meds. 10. Acute on Chronic Anemia/Acute blood loss anemia. - Taking Iron for 4 years, 325 TID, taking B12 and folic acid. - Hg was 4.5 at OSH, s/p 4 units of RBCs. Hg up to 9.9. Plan: - Stable - Monitor for re-bleeding on Heparin Bridge - Sees Hematology at home and has frequent infusions Recent Labs 01/12/18 0525 01/11/18 1421 01/11/18 1416 01/10/18 0459 01/09/18 0306 01/08/18 0640 WBC 4.51 4.21 4.55 < > 5.91 -- 8.83 -- 7.76 RBC 2.75* 2.89* 2.87* < > 2.79* -- 3.33* -- 2.09* HB 8.0* 8.4* 8.4* < > 8.3* < > 9.9* < > 6.1* HCT 25.3* 26.7* 26.3* < > 25.1* < > 29.6* -- 18.6* PLT 74* 76* 73* < > 86* -- 120* -- 110* MCV 92.0 92.4 91.6 < > 90.0 -- 88.9 -- 89.0 MCH 29.1 29.1 29.3 < > 29.7 -- 29.7 -- 29.2 MPV 11.8 11.7 11.4 < > 11.2 -- 11.1 -- 10.7 RDW -- -- -- -- -- -- -- -- 17.1* ABSNEUT -- -- -- -- 5.07 -- 7.82* -- -- NEUTP -- -- -- -- 85.8 -- 88.6 -- -- LYMPHP -- -- -- -- 7.8 -- 6.6 -- -- MONOP -- -- -- -- 5.8 -- 4.3 -- -- EODINP -- -- -- -- 0.3 -- 0.3 -- -- < > = values in this interval not displayed. 11. Depression - using Venlafaxine and Trazodone to help sleeping. - Feels depressed, which is getting worse recently, feels that she might hurt herself. Plan: - Continue Venlafaxine and Trazodone at current home dose VTE Prophylaxis: Patient is already anti-coagulated. Disposition: Home Plan of care discussed with: Patient, RN, CM/SW, and Staff ?? SIGNATURE: Jon Diamond PA-C PATIENT NAME: Emani Louis DATE: January 12, 2018 TIME: 1:39 PM PAGER/CONTACT #: [phone] CBC Collected: 01/12/2018 Status: F Source: [place] 1:24 PM [facility] REPOSITORY TYPE CODE TESTS RESULT OUT OF REFERENCE UNITS RANGE LAB WBC 3.70-11.00 k/uL WBC 3.89 LAB RBC 3.90-5.20 m/uL Low RBC 2.78 LAB HGB 11.5-15.5 g/dL Low Hemoglobin 8.2 LAB HCT 36.0-46.0 % Low Hematocrit 25.8 LAB MCV 80.0-100.0 fL MCV 92.8 LAB MCH 26.0-34.0 pG MCH 29.5 LAB MCHC 30.5-36.0 g/dL MCHC 31.8 LAB RDWCV 11.5-15.0 % RDW-CV High 17.7 LAB PLTCT 150-400 k/uL Low Platelet Count 71 Result Comment: No clot detected. LAB MPV 9.0-12.7 fL MPV 12.1 LAB ABSNUC <0.01 k/uL Absolute nRBC <0.01 Performed By: #### CBC #### [facility] [address] [place], [place] [address] PTT,ANTICOAG THERAPY Collected: 01/12/2018 Status: F Source: [place] 1:24 PM [facility] REPOSITORY TYPE CODE TESTS RESULT OUT OF RANGE REFERENCE UNITS LAB APTT 23.0-32.4 sec High APTT 98.3 Result Comment: Unfractionated Heparin Therapeutic Ranges: Standard Heparin Nomogram: 53 to 78 seconds (anti-Xa level of 0.3 to 0.7 U/ml) Low Dose/ACS Nomogram: 49 to 67 seconds (anti-Xa level of 0.2 to 0.5 U/ml) Stroke Treatment Nomogram: 49 to 67 seconds (anti-Xa level of 0.2 to 0.5 U/ml) Note: The APTT therapeutic range has been determined for the current lot of laboratory APTT reagent in use throughout the [facility]. Performed By: #### PTTAC #### [facility] [address] [place], [place] [address] PROTIME Collected: 01/12/2018 Status: F Source: [place] 5:25 AM [facility] REPOSITORY TYPE CODE TESTS RESULT OUT OF RANGE REFERENCE UNITS LAB PSEC 9.7-13.0 sec High PT Sec 17.8 LAB INR 0.9-1.3 High PT INR 1.8 Result Comment: Vitamin K Antagonist (VKA) Therapeutic Range: INR 2 to 3 (Target INR of 2.5) Note: For patients treated with VKA drugs, such as warfarin, the [place] [employer] 2012 Guideline recommends a therapeutic INR range of 2 to 3 (target INR of 2.5). This recommendation includes high-risk patients with antiphospholipid syndrome with previous arterial or venous thromboembolism, current-generation mechanical or bioprosthetic aortic heart valve replacement. Note: Patients with mechanical aortic valve replacement and additional risk factors for thromboembolic events (atrial fibrillation, previous thromboembolism, LV dysfunction, hypercoagulable conditions) or an older generation mechanical AVR (i.e., ball in-Cage) or any mechanical MVR should have a INR therapeutic range of 2.5 to 3.5 (target INR of 3). Italo GH, et al. Chest 2012, 141:7S-47S Phoebe RA, et al. [facility] 2017, 70: 252-289 Performed By: #### PT, PTTAC, CMP, MG1 #### [facility] [address] [place], [place] [address] PTT,ANTICOAG THERAPY Collected: 01/12/2018 Status: F Source: [place] 5:25 AM [facility] REPOSITORY TYPE CODE TESTS RESULT OUT OF RANGE REFERENCE UNITS LAB APTT 23.0-32.4 sec High APTT 48.1 Result Comment: Unfractionated Heparin Therapeutic Ranges: Standard Heparin Nomogram: 53 to 78 seconds (anti-Xa level of 0.3 to 0.7 U/ml) Low Dose/ACS Nomogram: 49 to 67 seconds (anti-Xa level of 0.2 to 0.5 U/ml) Stroke Treatment Nomogram: 49 to 67 seconds (anti-Xa level of 0.2 to 0.5 U/ml) Note: The APTT therapeutic range has been determined for the current lot of laboratory APTT reagent in use throughout the [facility]. Performed By: #### PT, PTTAC, CMP, MG1 #### [facility] [address] [place], [place] [address] COMP METABOLIC PANEL Collected: 01/12/2018 Status: F Source: [place] 5:25 AM [facility] REPOSITORY TYPE CODE TESTS RESULT OUT OF REFERENCE UNITS RANGE LAB TP 6.3-8.0 g/dL Low Protein, Total 5.2 LAB ALB 3.9-4.9 g/dL Low Albumin 2.8 LAB CA 8.5-10.2 mg/dL Low Calcium, Total 7.3 LAB TBIL 0.2-1.3 mg/dL Bilirubin, Total 0.2 LAB ALKP 32-117 U/L Alkaline Phosphatase 66 LAB AST 13-35 U/L Low AST 10 LAB GLU 74-99 mg/dL Glucose High 150 Result Comment: The [place] [employer] Association (ADA) provides guidance for cutoff values for fasting glucose and random glucose. The ADA defines fasting as no caloric intake for at least 8 hours. Fas ting plasma glucose results between 100 to 125 mg/dL indicate increased risk for diabetes (prediabetes). Fasting plasma glucose results greater than or equal to 126 mg/dL meet the criteria for diagnosis of diabetes. In the absence of unequivocal hyperglycemia, results should be confirmed by repeat testing. In a patient with classic symptoms of hyperglycemia or hyperglycemic crisis, random plasma glucose results greater than or equal to 200 mg/dL meet the criteria for diagnosis of diabetes. Reference: Standards of Medical Care in Diabetes 2016, [place] [employer] Association. Diabetes Care. 2016.39(Suppl 1). LAB BUN 7-21 mg/dL BUN 15 LAB CRET 0.58-0.96 mg/dL Creatinine High 1.40 LAB NA 136-144 mmol/L Sodium 144 LAB K 3.7-5.1 mmol/L Potassium 3.8 LAB CL 97-105 mmol/L Chloride High 116 LAB CO2 22-30 mmol/L Low CO2 20 LAB AGAP 9-18 mmol/L Low Anion Gap 8 LAB ALT 7-38 U/L ALT 10 LAB GFRAA eGFR- Amer. 44 LAB GFRNAA . eGFR-All Other Races 37 Result Comment: eGFR (Estimated GFR) Units of measure: mL/min/1.73 meters squared eGFR is derived from the reexpressed MDRD Study equation using the following parameters: serum creatinine, age, gender and race. The creatinine assay has been calibrated to be traceable to IDMS. An eGFR <60 mL/min/1.73m2 for >3 months is consistent with chronic kidney disease. Refer to KDOQI guidelines for clinical interpretation. In patients with unstable renal function, e.g. those with acute kidney injury, the eGFR may not accurately reflect actual GFR. Performed By: #### PT, PTTAC, CMP, MG1 #### [facility] [address] [place], [place] [address] MAGNESIUM Collected: 01/12/2018 Status: F Source: [place] 5:25 AM [facility] REPOSITORY TYPE CODE TESTS RESULT OUT OF REFERENCE UNITS RANGE LAB MG 1.7-2.3 mg/dL Magnesium 2.0 Performed By: #### PT, PTTAC, CMP, MG1 #### [facility] [address] [place], [place] [address] CBC Collected: 01/12/2018 Status: F Source: [place] 5:25 AM [facility] REPOSITORY TYPE CODE TESTS RESULT OUT OF REFERENCE UNITS RANGE LAB WBC 3.70-11.00 k/uL WBC 4.51 LAB RBC 3.90-5.20 m/uL Low RBC 2.75 LAB HGB 11.5-15.5 g/dL Low Hemoglobin 8.0 LAB HCT 36.0-46.0 % Low Hematocrit 25.3 LAB MCV 80.0-100.0 fL MCV 92.0 LAB MCH 26.0-34.0 pG MCH 29.1 LAB MCHC 30.5-36.0 g/dL MCHC 31.6 LAB RDWCV 11.5-15.0 % RDW-CV High 18.0 LAB PLTCT 150-400 k/uL Low Platelet Count 74 Result Comment: No clot detected. LAB MPV 9.0-12.7 fL MPV 11.8 LAB ABSNUC <0.01 k/uL Absolute nRBC <0.01 Performed By: #### CBC #### [facility] [address] [place], [place] [address] PROGRESS Observed: 01/11/2018 Status: COMPLETED Source: [place] 5:38 PM [facility] REPOSITORY HNO ID: [id number] Author: Lamont Carr Service: Hospital Medicine Author Type: Physician Type: Progress Notes Filed: 01/11/2018 9:09 PM Note Text: DEPARTMENT OF HOSPITAL MEDICINE: MICU TRANSFER NOTE For issues overnight, please page [phone]. After 7 AM, please page primary GIM team. Admit Date: 01/09/2018 SERVICE DATE: 01/11/2018 SERVICE TIME: 1730 PRIMARY CARE PHYSICIAN: Kodak Muñoz MD ASSESSMENT AND PLAN: Active Hospital Problems Diagnosis - GIB (gastrointestinal bleeding) - Chronic kidney disease, stage III (moderate) - Hypothyroidism # GIB with melena - she had a hx of GIB 2-3 years ago, w/u included endoscopy and capsule endoscopy at that time and there was no source of bleeding - she had recent w/u for melena. Capsule endoscopy 12/03/17: Non bleeding duodenal angiectasia. ?Abnormal fold in the distal/terminal ileum, exact nature of which cannot be determined. C-scope 11/26/17: Diverticulosis in the sigmoid colon and in the descending colon. A single non-bleeding colonic angiodysplastic lesion. Treated with argon plasma coagulation (APC). Clips were placed. GI radionuclide scan 03/15/17: there is normal perfusion of the tracer within the aora and common iliac arteries, homogeneous tracer uptake is seen within the liver which appears to be elarges as well as the spleen, there are no focal areas of extravasation to suggest a focal site of acute GIB at this time. EGD 10/30/16: normal Esophagus, stomach and duodenum. - She presented to OSH with weakness, found to have Hg of 4.7, and INR 19.5. With +ve FOBT - s/p 4 RBCs and 2 FFP and vit K. - she was transferred here for further w/u Plan: - Protonix 40 PO BID. - Restarted regular diet - GI consult, appreciate recs - transfuse to keep Hg > 8, and INR < 1.3. -outpatient retrograde endoscopy per patient preference ? # paroxysmal A.fib. # 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 On warfarin at home, 2.5 mg daily. # HF, taking lasix 20 mg q48h # SSS, s/p PM 2008 # HLD, using Lipitor 20 mg #elevated RVSP, possible pulm HTN - p/w weakness and melena, Hg was 4.5, and INR was 19.5, given Vitamin K and total of 4 units of RBCs, 2 FFP. ECHO 01/09/18: EF 58%, biatrial dilation, RVSP mildly decreased, Severe 3-4+ TR with hepatic vein systolic flow reversal, Mild 1+ MVR of St Alex prosthetic mitral valve -no further bleeding events -ECHO unchanged Plan: - Resume warfarin in the setting of suprahepatic INR (19.5 at OSH, s/p Vit K) and active blood loss anemia. - Hold Lasix for now. - Continue Lipitor -can bridge with lovenox if patient wishes to be D/C tomorrow - has some at home, though Cr clearance borderline (Estimated Creatinine Clearance: 31.4 mL/min (A) (based on SCr of 1.36 mg/dL (H)). # Hypotension - BP usually runs low, in the 60/40s. - she is asymptomatic. -low output state may be due to RV failure given elevated RVSP and dilated RV Plan: - assess clinical status with vital signs -can consider RHC in future ? # COPD - on 2 L oxygen at home PRN. Using Albuterol, Spiriva. Plan: - Continue Albuterol, and Spiriva. ? #CKD 3 with hx of ATN and MAX 2008 - b/l cr 1.5-1.8 - Cr stable Plan: - Strict I/O, avoid nephrotoxic. -caution with lovenox, though likely OK to bridge outpatient # Depression - using Venlafaxine and Trazodone Plan: - Psych consult, appreciate recs - Continue Venlafaxine and Trazodone at current home dose per patient preference -can consider switching from SNRI given slight increase risk of bleeding ? # DM2 - using 35 units at bedtime, and Humalog 15 + SS2 with meals. Plan: - Lantus 20 Qhs and SS2 ? # Hypothyroid - using Synthroid 50 Qd -last TSH slightly high around 5 Plan: - will continue home meds -outpatient assessment - follow up free T4 ? # Acute on Chronic Anemia/Acute blood loss anemia. - taking Iron for 4 years, 325 TID, taking B12 and folic acid. - Hg was 4.5 at OSH, s/p 4 units of RBCs. Hg up to 9.9. Plan: - see GI plan above - Type and screen - H/H q6h, and transfuse for Hg < 8. DVT ppx: heparin drip Dispo: possible DC tomorrow CC: GIB HPI: Patient is a 77 year old female with PMH sig for: -history of GIB in past -MVR on warfarin -afib, SSS s/p pacemaker -chronic hypotension -HLD -depression -CKD stage III -hypothyroid -DM type II -pulm HTN -COPD Patient presented to the MICU as transfer from OSH for evaluation of GI bleed. Initially presented with weakness and dizziness after taking robitussin for viral URI, found to have HgB 4.5 and INR 19.5 - given vit K and total of 4 units pRBCS and FFP. Interval Events: 01/09: Admitted to MICU overnight. 01/10: 1 black BM overnight. No daytime issues-- hgb stable. Home warfarin restarted 01/11: No events overnight. Currently feels well. No further episodes of black stools, BM today was brown. Some lightheadedness when standing but no SOB, no chest pain, no dizziness, no abdominal pain, no leg swelling. HgB stable. PAST MEDICAL HISTORY: PAST MEDICAL HISTORY Diagnosis Date - Acute kidney failure with lesion of tubular necrosis (HCC) 08/19/[address] Tobias. - Adenomatous colon polyp 08/30/2012 - Anemia in chronic kidney disease(285.21) 08/31/2011 - Atrial fibrillation (HCC) 05/09/2012 - Calculus of ureter 03/24/2008 - Cardiac pacemaker in situ 08/17/2008 Sick sinus syndrome. - Cholelithiasis 05/26/2013 - Chronic kidney disease, stage III (moderate) 09/23/2009 - Chronic rhinitis - Congestive heart failure, unspecified 07/24/2008 Mitral insufficiency. - DDD (degenerative disc disease) - Diabetes mellitus (HCC) - Diverticulosis of colon (without mention of hemorrhage) 10/17/05 - Esophageal reflux 08/15/2005 - Fibromyalgia - Generalized osteoarthrosis, unspecified site - Heart valve replaced by other means 08/17/2008 #25, [address] Alex. Mitral valve. - Iron deficiency 08/17/2011 - Lumbago 08/15/2005 - Melena - Moderate to severe pulmonary hypertension 09/21/2016 - Myalgia and myositis, unspecified - Other and unspecified hyperlipidemia 08/15/2005 - PSVT (paroxysmal supraventricular tachycardia) (HCC) 04/10/2011 - Sleep apnea - Type II or unspecified type diabetes mellitus without mention of complication, not stated as uncontrolled 08/15/2005 - Unspecified asthma(493.90) 08/15/2005 - Unspecified cardiovascular disease heart cath 12/15 PAST SURGICAL HISTORY: PAST SURGICAL HISTORY Procedure Laterality Date - CAPSULE ENDOSCOPY SMALL BOWEL 12/03/2017 - COLONOSCOP W/ OR W/O BRSH SPEC 10/17/05 - COLONOSCOP W/ OR W/O BRSH SPEC 08/25/2009 Colonoscopy - COLONOSCOP W/ OR W/O BRSH SPEC 10/17/2012 Colonoscopy - COLONOSCOPY 11/26/2017 - EGD 01/16/2005 - EGD W/O OR W/BRUSH/WASH 08/25/2009 EGD - EGD W/O OR W/BRUSH/WASH 04/05/15 EGD inpt [facility] - EGD W/O OR W/BRUSH/WASH 10/30/2016 EGD - INSER DIAMOND PACER XVENOUS ATRIAL Perm pacemaker insert - LEFT HEART CATH,PERCUTANEOUS Cardiac cath, L heart - LIGATE FALLOPIAN TUBE Tubal ligation - PAST SURGICAL HISTORY OF cervical conization - PAST SURGICAL HISTORY OF 01/03/05 Heart Cath - PAST SURGICAL HISTORY OF Carpal tunnel surgery b/l wrists - PERICARDIAL FINE NEEDLE ASPIRATION 2008 Pericardial Window - REPLACEMENT OF MITRAL VALVE Mitral valve replacement, St. Alex #25. FAMILY HISTORY: FAMILY HISTORY Problem Relation Age of Onset - Coronary Artery Disease Father age 60s - Cancer Mother renal, SOCIAL HISTORY: Social History Substance Use Topics - Smoking status: Current Every Day Smoker Packs/day: 2.00 Years: 55.00 Types: Cigarettes - Smokeless tobacco: Never Used - Alcohol use No MEDICATIONS: Current hospital medications: warfarin 2.5 mg tab(s) (COUMADIN) 2.5 mg ORAL ONCE - WARFARIN warfarin order for discharge OTHER PRN NaCl 0.9% iv infusion 5-30 mL/hr INTRAVENOUS CONTINUOUS 0.9% NaCl 3-5 mL 3-5 mL INTRAVENOUS q 12 H insulin regular human injection (short acting) (NovoLIN R,HumuLIN R) SUBCUTANEOUS q 6 H dextrose 50% in water 25-50 mL syringe 12.5-25 g INTRAVENOUS PRN dextrose 40 % 15 g 15 g ORAL PRN glucagon 1 mg injection (GLUCAGEN) 1 mg SUBCUTANEOUS PRN acetaminophen 650 mg tab(s) (TYLENOL) 650 mg ORAL/FEEDING TUBE q 6 H PRN acetaminophen 650 mg suppository (TYLENOL) 650 mg RECTAL q 6 H PRN atorvastatin 20 mg tab(s) (LIPITOR) 20 mg ORAL DAILY folic acid 1 mg tab(s) 1 mg ORAL DAILY insulin glargine 20 Units pen (long acting) (LANTUS SOLOSTAR, BASAGLAR) 20 Units SUBCUTANEOUS AT BEDTIME venlafaxine 37.5 mg tab(s) (EFFEXOR) 37.5 mg ORAL BID levothyroxine 50 mcg tab(s) (SYNTHROID) 50 mcg ORAL DAILY tiotropium 18 mcg cap(s) and device for inhalation (SPIRIVA) 18 mcg INHALATION DAILY traZODone 150 mg tab(s) (DESYREL) 150 mg ORAL AT BEDTIME mupirocin 2% 0.5 g nasal ointment (BACTROBAN) 0.5 g NASAL BID heparin iv infusion (STANDARD NOMOGRAM) 25,000 units in NaCl 0.45% 250 mL PREMIX 0-3,000 Units/hr INTRAVENOUS CONTINUOUS heparin RATE CHANGE bolus 1,000-10,000 Units for subtherapeutic aptt results 1,000-10,000 Units INTRAVENOUS PRN pantoprazole DR 40 mg tab(s) (PROTONIX) 40 mg ORAL BID AC (0600/1600) CURRENT ALLERGIES: ALLERGIES Allergen Reactions - Ambien [Zolpidem Ta* Unknown - Ativan [Lorazepam] Other: See Comments just didn't work - Mobic [Meloxicam] Unknown - Pamelor [Nortriptyl* Unknown COMPLETE REVIEW OF SYSTEMS: Constitutional: No weight loss, malaise or fevers. HEENT: No changes in hearing or vision, no nose bleeds or other nasal problems Resp: Negative for cough, wheezing, or shortness of breath Cardiovascular: Negative for chest pain, leg swelling or palpitations GI: Negative for abdominal discomfort, blood in stools or black stools or change in bowel habits : No history of dysuria, frequency, or incontinence Endo: Negative for cold or heat intolerance, polyuria, polydipsia and goiter Heme/Lymph: Negative for prolonged bleeding, bruising easily or swollen nodes Neurologic: No history or headaches, syncope, paralysis, seizures or tremors Integumentary: Negative for lesions, rash, and itching. Additional systems reviewed: Pain: Negative for pain, history of chronic pain, or current treatment for a chronic pain condition, Musculoskeletal: Negative for joint pain or swelling, back pain or muscle pain and Psychiatric: Negative for sleep disturbance, mood disorder and recent psychosocial stressors PHYSICAL EXAM: @MULTIPLEVITALS@ Body mass index is 25.84 kg/m?. Constitutional: Well developed, Well nourished and No acute distress HEENT: PERRLA and EOM's intact Resp: Breath sounds normal bilaterally, Expansion is symmetric and adequate, Respiratory effort is normal and Percussion and palpation are normal Cardiovascular: Regular rate AND rhythm and mechanical S1, normal S2, systolic ejection mumrur RSIC GI: Soft, Round, Non-tender and Bowel sounds present Integumentary: Warm, Dry and pale Musculoskeletal: Extremities normal. No deformities, edema, or skin discoloration. Good capillary refill. Neurological/Psychiatric: Oriented to time, place AND person and No gross focal neurologic deficits Additional systems reviewed: : no CVA tenderness DATA: LABS: Component Latest Ref Rng AND Units 01/10/2018 01/11/2018 01/11/2018 01/11/2018 01/11/2018 12:00 PM 2:16 PM 2:21 PM 5:52 PM Protein, Total 6.3 - 8.0 g/dL 5.0 (L) Albumin 3.9 - 4.9 g/dL 2.8 (L) Calcium 8.5 - 10.2 mg/dL 7.3 (L) Bilirubin, Total 0.2 - 1.3 mg/dL 0.4 Alkaline Phosphatase 32 - 117 U/L 61 AST 13 - 35 U/L 11 (L) Glucose 74 - 99 mg/dL 117 (H) BUN 7 - 21 mg/dL 16 Creatinine 0.58 - 0.96 mg/dL 1.36 (H) Sodium 136 - 144 mmol/L 142 Potassium 3.7 - 5.1 mmol/L 3.5 (L) Chloride 97 - 105 mmol/L 112 (H) CO2 22 - 30 mmol/L 20 (L) Anion Gap 9 - 18 mmol/L 10 ALT 7 - 38 U/L 9 eGFR- 46 eGFR-All Other Races . 38 WBC 3.70 - 11.00 k/uL Unable to assay. Specimen improperly collected/handled. 4.55 4.21 RBC 3.90 - 5.20 m/uL 2.87 (L) 2.89 (L) Hemoglobin 11.5 - 15.5 g/dL 8.4 (L) 8.4 (L) Hematocrit 36.0 - 46.0 % 26.3 (L) 26.7 (L) MCV 80.0 - 100.0 fL 91.6 92.4 MCH 26.0 - 34.0 pG 29.3 29.1 MCHC 30.5 - 36.0 g/dL 31.9 31.5 RDW-CV 11.5 - 15.0 % 17.7 (H) 17.5 (H) Platelet Count 150 - 400 k/uL 73 (L) 76 (L) MPV 9.0 - 12.7 fL 11.4 11.7 Absolute nRBC <0.01 k/uL <0.01 <0.01 PT Sec 9.7 - 13.0 sec 14.6 (H) 15.9 (H) PT INR 0.9 - 1.3 1.4 (H) 1.6 (H) APTT 23.0 - 32.4 sec 56.7 (H) Magnesium 1.7 - 2.3 mg/dL 2.1 Phosphorus 2.7 - 4.8 mg/dL 1.8 (L) Glucose, Point of Care 74 - 99 mg/dL 114 (A) Most recent labs SIGNATURE: Lamont Carr MD PATIENT NAME: Emani Louis DATE: January 11, 2018 TIME: 5:38 PM PAGER: [phone] For issues overnight, please page [phone]. After 7 AM, please page primary GIM team. FREE T4 Collected: 01/11/2018 Status: F Source: [place] 4:55 PM [facility] REPOSITORY TYPE CODE TESTS RESULT OUT OF RANGE REFERENCE UNITS LAB FT4 0.9-1.7 ng/dL Free T4 1.2 Performed By: #### FT4 #### [facility] [address] [id number] PLAN OF CARE Observed: 01/11/2018 Status: COMPLETED Source: [place] 4:42 PM [facility] REPOSITORY HNO ID: [id number] Author: Lamont Carr Service: Hospital Medicine Author Type: Physician Type: Plan of Care Filed: 01/11/2018 4:43 PM Note Text: Patient chronically hypotensive, please assess for change in clinical status (altered mental status, chest pain, worsening shortness of breath, cold extremities etc.) when contacting primary team with vitals. Lamont Carr MD 4:43 PM January 11, 2018 NURSING PROG Observed: 01/11/2018 Status: COMPLETED Source: [place] 3:39 PM [facility] REPOSITORY HNO ID: [id number] Author: Lois GómezRn) CINDY Gil Service: (none) Author Type: Registered Nurse Type: Nursing Progress Note Filed: 01/11/2018 4:29 PM Note Text: Nursing Progress Note Patient Name: Emani Louis Patient Location: [facility] 001/G062-01 Transfer Note: Actions Taken: 1458 POLICE DEPARTMENT SECRETARY notified me that patient has a bed in H81-04 1511 HGB resulted (team wanted result prior to transfer) 1512 Paged [facility] Team, Requested orders. 1514 Called Report. Spoke to Latosha. Explained low BP's along with patient's histroy and current orders for BP of 60/30 is satisfactory. 1538 Paged [facility] Team, Requested orders. 1615 Spoke with Yumiko/ ANM regarding orders (unable to see transfer orders. I only have order to transfer Yumiko/ANM stated its ok to transfer patient. 1620 Patient transported to [facility] via bed by transporter. Patient transferred H81-04 in stable condition. Personal belongings with patient. This note was completed by: Lois Gil RN PLAN OF CARE Observed: 01/11/2018 Status: COMPLETED Source: [place] 3:19 PM [facility] REPOSITORY HNO ID: [id number] Author: Nicole Orantes Service: Critical Care Author Type: Resident Type: Plan of Care Filed: 01/11/2018 3:37 PM Note Text: MICU TRANSFER TO REGULAR NURSING FLOOR Pt seen and examined on rounds with MICU staff and is stable to transfer to [facility]. Signout given to Med QB Pt going to bed H81-4 Hudson Issues: See hudson issues documented in the previous progress note for the treatment plan. Orders signed and held in [facility]. SIGNATURE: Nicole Orantes DO PATIENT NAME: Emani Louis DATE: January 11, 2018 TIME: 3:19 PM PAGER/CONTACT #: [phone] CBC Collected: 01/11/2018 Status: F Source: [place] 2:21 [facility] REPOSITORY TYPE CODE TESTS RESULT OUT OF REFERENCE UNITS RANGE LAB WBC 3.70-11.00 k/uL WBC 4.21 LAB RBC 3.90-5.20 m/uL Low RBC 2.89 LAB HGB 11.5-15.5 g/dL Low Hemoglobin 8.4 LAB HCT 36.0-46.0 % Low Hematocrit 26.7 LAB MCV 80.0-100.0 fL MCV 92.4 LAB MCH 26.0-34.0 pG MCH 29.1 LAB MCHC 30.5-36.0 g/dL MCHC 31.5 LAB RDWCV 11.5-15.0 % RDW-CV High 17.5 LAB PLTCT 150-400 k/uL Low Platelet Count 76 Result Comment: Result checked and verified No clot detected. LAB MPV 9.0-12.7 fL MPV 11.7 LAB ABSNUC <0.01 k/uL Absolute nRBC <0.01 Performed By: #### CBC #### [facility] [address] [place], [place] [address] CBC Collected: 01/11/2018 Status: F Source: [place] 2:16 [facility] REPOSITORY TYPE CODE TESTS RESULT OUT OF REFERENCE UNITS RANGE LAB WBC 3.70-11.00 k/uL WBC 4.55 LAB RBC 3.90-5.20 m/uL Low RBC 2.87 LAB HGB 11.5-15.5 g/dL Low Hemoglobin 8.4 LAB HCT 36.0-46.0 % Low Hematocrit 26.3 LAB MCV 80.0-100.0 fL MCV 91.6 LAB MCH 26.0-34.0 pG MCH 29.3 LAB MCHC 30.5-36.0 g/dL MCHC 31.9 LAB RDWCV 11.5-15.0 % RDW-CV High 17.7 LAB PLTCT 150-400 k/uL Low Platelet Count 73 Result Comment: Result checked and verified No clot detected. LAB MPV 9.0-12.7 fL MPV 11.4 LAB ABSNUC <0.01 k/uL Absolute nRBC <0.01 Performed By: #### CBC #### [facility] [employer] [facility] [address] [place], [place] [address] CBC Collected: 01/11/2018 Status: F Source: [place] 12:00 PM [facility] REPOSITORY TYPE CODE TESTS RESULT OUT OF REFERENCE UNITS RANGE LAB WBC 3.70-11.00 k/uL Unable WBC to assay. Specimen improperly collected/handle d. Result Comment: Specimen collected in wrong container type. [id number] Account Credited Performed By: #### CBC #### [facility] [address] [place], [place] [address] PROTIME Collected: 01/11/2018 Status: F Source: [place] 12:00 PM [facility] REPOSITORY TYPE CODE TESTS RESULT OUT OF RANGE REFERENCE UNITS LAB PSEC 9.7-13.0 sec High PT Sec 15.9 LAB INR 0.9-1.3 High PT INR 1.6 Result Comment: Vitamin K Antagonist (VKA) Therapeutic Range: INR 2 to 3 (Target INR of 2.5) Note: For patients treated with VKA drugs, such as warfarin, the [place] [employer] 2012 Guideline recommends a therapeutic INR range of 2 to 3 (target INR of 2.5). This recommendation includes high-risk patients with antiphospholipid syndrome with previous arterial or venous thromboembolism, current-generation mechanical or bioprosthetic aortic heart valve replacement. Note: Patients with mechanical aortic valve replacement and additional risk factors for thromboembolic events (atrial fibrillation, previous thromboembolism, LV dysfunction, hypercoagulable conditions) or an older generation mechanical AVR (i.e., ball in-Cage) or any mechanical MVR should have a INR therapeutic range of 2.5 to 3.5 (target INR of 3). Italo GH, et al. Chest 2012, 141:7S-47S Phoebe RA, et al. [facility] 2017, 70: 252-289 Performed By: #### PT #### [facility] [address] [place], [place] [address] PROGRESS Observed: 01/11/2018 Status: COMPLETED Source: [place] 7:36 AM [facility] REPOSITORY HNO ID: [id number] Author: Melania Almanza Service: Pulmonary Disease Author Type: Physician Type: Progress Notes Filed: 01/11/2018 11:35 AM Note Text: MICU Staff WBC 3.97, afebrile Hemoglobin 7.6 (drifted down from 9.2) Platelets 77 (decreased from 86) PTT 56.7 BUN/creatinine 16/1.36 (creatinine is increasing) She is back on warfarin ASSESSMENT Acute blood loss anemia presents with INR 19.5 and hemoglobin 4.5. Transferred for further workup of melena. H/H still downtrending Frequent previous GI bleeds EGDs and capsule endoscopy without source identification (well summarized in Dr Ken's note) Paroxysmal atrial fibrillation Sick sinus syndrome status post pacemaker Mitral valve replacement with St. Alex valve, Pulmonary hypertension (RVSP 73 on echo December 2017) Paroxysmal atrial fibrillation Hypothyroid with recent TSH 5.88 Chronic kidney disease Left hip hematoma (from recent fall) Depression with suicidal ideation Diabetes Chronic right effusion/infiltrate PLAN Follow H/H and consider transfer to floor Retrograde double-balloon enteroscopy (planned in January as outpatient) Anticoagulation PPI twice a day Signature: Melania Almanza MD [facility] STAFF PHYSICIAN NOTE OF PERSONAL INVOLVEMENT IN CARE I have reviewed the progress note obtained and documented by the fellow/resident, and I personally participated in the hudson components. I have discussed the case and management of the patient's care. The comments in my note revise or confirm relevant hudson components of the fellow/resident note. SIGNATURE: Melania Almanza MD [facility] PAGER:[phone] PROGRESS Observed: 01/11/2018 Status: COMPLETED Source: [place] 7:05 AM [facility] REPOSITORY [facility] ID: [id number] Author: Nicole Meza) Rolanda Service: Critical Care Author Type: Resident Type: Progress Notes Filed: 01/11/2018 8:45 AM Note Text: Attestation signed by Melania Almanza at 01/11/2018 11:35 AM [facility] STAFF PHYSICIAN NOTE OF PERSONAL INVOLVEMENT IN CARE I have reviewed the progress note obtained and documented by the fellow/resident, and I personally participated in the hudson components. I have discussed the case and management of the patient's care. The comments in my separate note revise or confirm relevant hudson components of the fellow/resident note. SIGNATURE: Melania Almanza MD [facility] PAGER:[phone] Medical ICU Progress Note MICU Team: Evaluation date: 01/11/2018 Evaluation time: 7:13 AM Patient name:Emani Louis Admission date: 01/09/2018 Day # .2 in the MICU. Assessment and Plan: Patient Summary: This is a 77yoF with PMHx of paroxysmal A.fib, St. Alex. MVR (on warfarin), SSS s/p PM 2008, HLD, CKD 3, ACD, DM2, Hypothyroidism, chronic hypotension, COPD, Depression, GIB with extensive w/u in the past. Who presented to OSH with weakness, found to have supra-theraputic INR (19.5) with Hgb of 4.5, s/p Vit k, 4 RBCs and FFP. She was transferred here for further w/u for melena. Interval Events: 01/09: Admitted to MICU overnight. 01/10: 1 black BM overnight. No daytime issues-- hgb stable. Home warfarin restarted 01/11: No events overnight. PLAN OF THE DAY: -Continue to monitor H/H q6h -Trend platelet count -Monitor for bloody BM -Hold pressors; doesn't appear to be hypoperfusing given lactate normal Neuro/Psych: # Depression - using Venlafaxine and Trazodone to help sleeping. - Feels depressed, which is getting worse recently, feels that she might hurt herself. Plan: - Psych consult, appreciate recs. - Continue Venlafaxine and Trazodone at current home dose Cardiovascular: # paroxysmal A.fib. # 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 On warfarin at home, 2.5 mg daily. # HF, taking lasix 20 mg q48h # SSS, s/p PM 2008 # HLD, using Lipitor 20 mg - p/w weakness and melena, Hg was 4.5, and INR was 19.5, given Vitamin K and total of 4 units of RBCs, 2 FFP. ECHO 01/09/18: EF 58%, biatrial dilation, RVSP mildly decreased, Severe 3-4+ TR with hepatic vein systolic flow reversal, Mild 1+ MVR of St Alex prosthetic mitral valve Plan: - Hold warfarin in the setting of suprahepatic INR (19.5 at OSH, s/p Vit K) and active blood loss anemia. - Hold Lasix for now. - Continue Lipitor. - ECHO and CXR # Hypotension - BP usually runs low, in the 60/40s. - she is asymptomatic. Plan: - Hold off pressors for now. Respiratory: # COPD - on 2 L oxygen at home PRN. Using Albuterol, Spiriva. Plan: - Continue Albuterol, and Spiriva. Renal: - CKD 3 with hx of ATN and MAX 2008 - b/l cr 1.5-1.8 - Cr today 1.43 Plan: - Strict I/O, avoid nephrotoxic. FEN/GI: # GIB with melena. - she had a hx of GIB 2-3 years ago, w/u included endoscopy and capsule endoscopy at that time and there was no source of bleeding - she had recent w/u for melena. Capsule endoscopy 12/03/17: Non bleeding duodenal angiectasia. ?Abnormal fold in the distal/terminal ileum, exact nature of which cannot be determined. C-scope 11/26/17: Diverticulosis in the sigmoid colon and in the descending colon. A single non-bleeding colonic angiodysplastic lesion. Treated with argon plasma coagulation (APC). Clips were placed. GI radionuclide scan 03/15/17: there is normal perfusion of the tracer within the aora and common iliac arteries, homogeneous tracer uptake is seen within the liver which appears to be elarges as well as the spleen, there are no focal areas of extravasation to suggest a focal site of acute GIB at this time. EGD 10/30/16: normal Esophagus, stomach and duodenum. - She presented to OSH with weakness, found to have Hg of 4.7, and INR 19.5. With +ve FOBT - s/p 4 RBCs and 2 FFP and vit K. - she was transferred here for further w/u. Plan: - Protonix 40 PO BID. - Restarted regular diet - GI consult, appreciate recs - transfuse to keep Hg > 8, and INR < 1.3. ID: No acute issues. Endo: # DM2 - using 35 units at bedtime, and Humalog 15 + SS2 with meals. Plan: - Lantus 20 Qhs and SS2 # Hypothyroid - using Synthroid 50 Qd, Plan: - will continue home meds. Hem/Onc: # Acute on Chronic Anemia/Acute blood loss anemia. - taking Iron for 4 years, 325 TID, taking B12 and folic acid. - Hg was 4.5 at OSH, s/p 4 units of RBCs. Hg up to 9.9. Plan: - see GI plan above - Type and screen - H/H q6h, and transfuse for Hg < 8. Skin: No acute issues. Prophylaxis: GI: PPI DVT: IPC Physical Exam Vital Signs (last 24hrs min/max): Temp Av.4 ?C (97.6 ?F) Min: 36.3 ?C (97.3 ?F) Max: 36.6 ?C (97.9 ?F) Pulse Av.2 Min: 88 Max: 115 No Data Recorded Cuff BP Min: 61/35 Max: 90/52 Pain Score: 0/10 Net fluid balance Intake/Output Summary (Last 24 hours) at 01/11/18 0845 Last data filed at 01/11/18 0800 Gross per 24 hour Intake 823 ml Output 2 ml Net 821 ml General - Awake and alert. In no distress, cooperative. Neurological- No focal deficit, CN II-XII grossly intact. Sensation grossly intact HEENT- PERRL, EOMI. Normal dentition. Mucous membranes moist. Neck- Supple, full range of motion. No JVD. No lymphadenopathy. Cardiac- RRR, S1 and S2 present. No murmurs, gallops, rubs. Lungs- Clear to auscultation bilaterally. No wheezes, rales, rhonchi. Intubated: No Supplemental Oxygen: No No Data Recorded Abdomen- Normoactive bowel sounds. Soft, non-tender, non-distended. Extremities- Pulses: Palpable Edema: No Skin- Warm, well perfused. Rash: None Lines/Drains/Outputs Lines, Drains, and Airways Line Peripheral 01/09/18 0246 Admission to Hospital Short Right Arm 20 Gauge 2 days Peripheral 01/09/18 0445 Short Left Antecubital 20 Gauge 2 days Infusions NaCl 0.9% insulin regular heparin iv infusion (STANDARD NOMOGRAM) 25,000 units in NaCl 0.45% 250 mL PREMIX Last Rate: 1,200 Units/hr (01/11/18 0800) Nutrition Enteral Feeds: No, liquid diet Inpatient Medications: Current hospital medications: potassium phosphate 15 mmol in NaCl 0.9% 250 mL 15 mmol INTRAVENOUS ONCE warfarin 2.5 mg tab(s) (COUMADIN) 2.5 mg ORAL ONCE - WARFARIN warfarin order for discharge OTHER PRN NaCl 0.9% iv infusion 5-30 mL/hr INTRAVENOUS CONTINUOUS 0.9% NaCl 3-5 mL 3-5 mL INTRAVENOUS q 12 H insulin regular human injection (short acting) (NovoLIN R,HumuLIN R) SUBCUTANEOUS q 6 H insulin regular 250 units in NaCl 0.9% 250 mL iv infusion - ICU NOMOGRAM 0.5-30 Units/hr INTRAVENOUS CONTINUOUS insulin regular human iv bolus 2-10 Units 2-10 Units INTRAVENOUS PRN dextrose 50% in water 25-50 mL syringe 12.5-25 g INTRAVENOUS PRN dextrose 40 % 15 g 15 g ORAL PRN glucagon 1 mg injection (GLUCAGEN) 1 mg SUBCUTANEOUS PRN acetaminophen 650 mg tab(s) (TYLENOL) 650 mg ORAL/FEEDING TUBE q 6 H PRN acetaminophen 650 mg suppository (TYLENOL) 650 mg RECTAL q 6 H PRN atorvastatin 20 mg tab(s) (LIPITOR) 20 mg ORAL DAILY folic acid 1 mg tab(s) 1 mg ORAL DAILY insulin glargine 20 Units pen (long acting) (LANTUS SOLOSTAR, BASAGLAR) 20 Units SUBCUTANEOUS AT BEDTIME venlafaxine 37.5 mg tab(s) (EFFEXOR) 37.5 mg ORAL BID levothyroxine 50 mcg tab(s) (SYNTHROID) 50 mcg ORAL DAILY tiotropium 18 mcg cap(s) and device for inhalation (SPIRIVA) 18 mcg INHALATION DAILY traZODone 150 mg tab(s) (DESYREL) 150 mg ORAL AT BEDTIME mupirocin 2% 0.5 g nasal ointment (BACTROBAN) 0.5 g NASAL BID heparin iv infusion (STANDARD NOMOGRAM) 25,000 units in NaCl 0.45% 250 mL PREMIX 0-3,000 Units/hr INTRAVENOUS CONTINUOUS heparin RATE CHANGE bolus 1,000-10,000 Units for subtherapeutic aptt results 1,000-10,000 Units INTRAVENOUS PRN pantoprazole DR 40 mg tab(s) (PROTONIX) 40 mg ORAL BID AC (0600/1600) Diagnostic tests reviewed for today's visit: Most recent labs and imaging results. Patient Checklist ? Are restraints necessary: No ? Deep vein thrombosis prophylaxis administered? No. Not indicated. ? Stress ulcer prophylaxis? Yes ? Nasogastric tube? No ? Morrissey catheter necessary? No ? Is central line essential? No ? Plan discussed with assigned RN? Yes Extended Emergency Contact Information Primary Emergency Contact: Zia Louis [place] [employer] Relation: Spouse Secondary Emergency Contact: OliviaLatosha Mobile Relation: Daughter Nicole Orantes DO, PGY-1 01/11/2018 7:13 AM Pager [phone] CBC Collected: 01/11/2018 Status: F Source: [place] 6:08 AM [facility] REPOSITORY TYPE CODE TESTS RESULT OUT OF REFERENCE UNITS RANGE LAB WBC 3.70-11.00 k/uL WBC 3.97 LAB RBC 3.90-5.20 m/uL Low RBC 2.66 LAB HGB 11.5-15.5 g/dL Low Hemoglobin 7.6 LAB HCT 36.0-46.0 % Low Hematocrit 24.2 LAB MCV 80.0-100.0 fL MCV 91.0 LAB MCH 26.0-34.0 pG MCH 28.6 LAB MCHC 30.5-36.0 g/dL MCHC 31.4 LAB RDWCV 11.5-15.0 % RDW-CV High 17.5 LAB PLTCT 150-400 k/uL Low Platelet Count 77 Result Comment: No clot detected. LAB MPV 9.0-12.7 fL MPV 11.7 LAB ABSNUC <0.01 k/uL Absolute nRBC <0.01 Performed By: #### CBC #### [facility] [address] [place], [place] [address] APTT Collected: 01/10/2018 Status: F Source: [place] 11:35 PM [facility] REPOSITORY TYPE CODE TESTS RESULT OUT OF RANGE REFERENCE UNITS LAB APTT 23.0-32.4 sec High APTT 56.7 Result Comment: Unfractionated Heparin Therapeutic Ranges: Standard Heparin Nomogram: 53 to 78 seconds (anti-Xa level of 0.3 to 0.7 U/ml) Low Dose/ACS Nomogram: 49 to 67 seconds (anti-Xa level of 0.2 to 0.5 U/ml) Stroke Treatment Nomogram: 49 to 67 seconds (anti-Xa level of 0.2 to 0.5 U/ml) Note: The APTT therapeutic range has been determined for the current lot of laboratory APTT reagent in use throughout the [facility]. Performed By: #### PTT, PT, CMP, MG1, PHOS, CBC #### [facility] [address] [place], [place] [address] PROTIME Collected: 01/10/2018 Status: F Source: [place] 11:35 [facility] REPOSITORY TYPE CODE TESTS RESULT OUT OF RANGE REFERENCE UNITS LAB PSEC 9.7-13.0 sec High PT Sec 14.6 LAB INR 0.9-1.3 High PT INR 1.4 Result Comment: Vitamin K Antagonist (VKA) Therapeutic Range: INR 2 to 3 (Target INR of 2.5) Note: For patients treated with VKA drugs, such as warfarin, the [place] [employer] 2012 Guideline recommends a therapeutic INR range of 2 to 3 (target INR of 2.5). This recommendation includes high-risk patients with antiphospholipid syndrome with previous arterial or venous thromboembolism, current-generation mechanical or bioprosthetic aortic heart valve replacement. Note: Patients with mechanical aortic valve replacement and additional risk factors for thromboembolic events (atrial fibrillation, previous thromboembolism, LV dysfunction, hypercoagulable conditions) or an older generation mechanical AVR (i.e., ball in-Cage) or any mechanical MVR should have a INR therapeutic range of 2.5 to 3.5 (target INR of 3). Italo GH, et al. Chest 2012, 141:7S-47S Phoebe RA et al. JACC 2017, 70: 252-289 Performed By: #### PTT, PT, CMP, MG1, PHOS, CBC #### [facility] [address] [place], [place] [address] COMP METABOLIC PANEL Collected: 01/10/2018 Status: F Source: [place] 11:35 PM [facility] REPOSITORY TYPE CODE TESTS RESULT OUT OF REFERENCE UNITS RANGE LAB TP 6.3-8.0 g/dL Low Protein, Total 5.0 LAB ALB 3.9-4.9 g/dL Low Albumin 2.8 LAB CA 8.5-10.2 mg/dL Low Calcium, Total 7.3 LAB TBIL 0.2-1.3 mg/dL Bilirubin, Total 0.4 LAB ALKP 32-117 U/L Alkaline Phosphatase 61 LAB AST 13-35 U/L Low AST 11 LAB GLU 74-99 mg/dL Glucose High 117 Result Comment: The [place] [employer] Association (ADA) provides guidance for cutoff values for fasting glucose and random glucose. The ADA defines fasting as no caloric intake for at least 8 hours. Fas ting plasma glucose results between 100 to 125 mg/dL indicate increased risk for diabetes (prediabetes). Fasting plasma glucose results greater than or equal to 126 mg/dL meet the criteria for diagnosis of diabetes. In the absence of unequivocal hyperglycemia, results should be confirmed by repeat testing. In a patient with classic symptoms of hyperglycemia or hyperglycemic crisis, random plasma glucose results greater than or equal to 200 mg/dL meet the criteria for diagnosis of diabetes. Reference: Standards of Medical Care in Diabetes 2016, [place] [employer]. Diabetes Care. 2016.39(Suppl 1). LAB BUN 7-21 mg/dL BUN 16 LAB CRET 0.58-0.96 mg/dL Creatinine High 1.36 LAB NA 136-144 mmol/L Sodium 142 LAB K 3.7-5.1 mmol/L Low Potassium 3.5 LAB CL 97-105 mmol/L Chloride High 112 LAB CO2 22-30 mmol/L Low CO2 20 LAB AGAP 9-18 mmol/L Anion Gap 10 LAB ALT 7-38 U/L ALT 9 LAB GFRAA eGFR- Amer. 46 LAB GFRNAA . eGFR-All Other Races 38 Result Comment: eGFR (Estimated GFR) Units of measure: mL/min/1.73 meters squared eGFR is derived from the reexpressed MDRD Study equation using the following parameters: serum creatinine, age, gender and race. The creatinine assay has been calibrated to be traceable to IDUT. An eGFR <60 mL/min/1.73m2 for >3 months is consistent with chronic kidney disease. Refer to KDOQI guidelines for clinical interpretation. In patients with unstable renal function, e.g. those with acute kidney injury, the eGFR may not accurately reflect actual GFR. Performed By: #### PTT, PT, CMP, MG1, PHOS, CBC #### [facility] [address] [place] [address] MAGNESIUM Collected: 01/10/2018 Status: F Source: [place] 11:[address] [place] [address] REPOSITORY TYPE CODE TESTS RESULT OUT OF REFERENCE UNITS RANGE LAB MG 1.7-2.3 mg/dL Magnesium 2.1 Performed By: #### PTT, PT, CMP, MG1, PHOS, CBC #### [place] [address] PHOSPHORUS Collected: 01/10/2018 Status: F Source: [place] 11:35 [facility] REPOSITORY TYPE CODE TESTS RESULT OUT OF REFERENCE UNITS RANGE LAB PHOS 2.7-4.8 mg/dL Low Phosphorus 1.8 Performed By: #### PTT, PT, CMP, MG1, PHOS, CBC #### [place] [address] CBC Collected: 01/10/2018 Status: F Source: [place] 11:[address] [place] [address] REPOSITORY TYPE CODE TESTS RESULT OUT OF REFERENCE UNITS RANGE LAB WBC 3.70-11.00 k/uL WBC 5.48 LAB RBC 3.90-5.20 m/uL Low RBC 2.79 LAB HGB 11.5-15.5 g/dL Low Hemoglobin 8.3 LAB HCT 36.0-46.0 % Low Hematocrit 25.6 LAB MCV 80.0-100.0 fL MCV 91.8 LAB MCH 26.0-34.0 pG MCH 29.7 LAB MCHC 30.5-36.0 g/dL MCHC 32.4 LAB RDWCV 11.5-15.0 % RDW-CV High 17.6 LAB PLTCT 150-400 k/uL Low Platelet Count 79 Result Comment: No clot detected. LAB MPV 9.0-12.7 fL MPV 11.4 LAB ABSNUC <0.01 k/uL Absolute nRBC <0.01 Performed By: #### PTT, PT, CMP, MG1, PHOS, CBC #### [id number] [place], [place] [id number] CBC Collected: 01/10/2018 Status: F Source: [place] 5:40 PM [facility] REPOSITORY TYPE CODE TESTS RESULT OUT OF REFERENCE UNITS RANGE LAB WBC 3.70-11.00 k/uL WBC 4.91 LAB RBC 3.90-5.20 m/uL Low RBC 2.82 LAB HGB 11.5-15.5 g/dL Low Hemoglobin 8.2 LAB HCT 36.0-46.0 % Low Hematocrit 25.9 LAB MCV 80.0-100.0 fL MCV 91.8 LAB MCH 26.0-34.0 pG MCH 29.1 LAB MCHC 30.5-36.0 g/dL MCHC 31.7 LAB RDWCV 11.5-15.0 % RDW-CV High 17.6 LAB PLTCT 150-400 k/uL Low Platelet Count 87 Result Comment: No clot detected. LAB MPV 9.0-12.7 fL MPV 11.5 LAB ABSNUC <0.01 k/uL Absolute nRBC <0.01 Performed By: #### CBC #### [facility] [address] [place] [address] [id number] PTT,ANTICOAG THERAPY Collected: 01/10/2018 Status: F Source: [place] 1:08 PM [facility] REPOSITORY TYPE CODE TESTS RESULT OUT OF RANGE REFERENCE UNITS LAB APTT 23.0-32.4 sec High APTT 56.4 Result Comment: Unfractionated Heparin Therapeutic Ranges: Standard Heparin Nomogram: 53 to 78 seconds (anti-Xa level of 0.3 to 0.7 U/ml) Low Dose/ACS Nomogram: 49 to 67 seconds (anti-Xa level of 0.2 to 0.5 U/ml) Stroke Treatment Nomogram: 49 to 67 seconds (anti-Xa level of 0.2 to 0.5 U/ml) Note: The APTT therapeutic range has been determined for the current lot of laboratory APTT reagent in use throughout the [facility]. Performed By: #### PTTAC #### [facility] [address] [place], [place] [address] CBC Collected: 01/10/2018 Status: F Source: [place] 11:50 AM [facility] REPOSITORY TYPE CODE TESTS RESULT OUT OF REFERENCE UNITS RANGE LAB WBC 3.70-11.00 k/uL WBC 5.38 LAB RBC 3.90-5.20 m/uL Low RBC 2.77 LAB HGB 11.5-15.5 g/dL Low Hemoglobin 8.3 LAB HCT 36.0-46.0 % Low Hematocrit 24.8 LAB MCV 80.0-100.0 fL MCV 89.5 LAB MCH 26.0-34.0 pG MCH 30.0 LAB MCHC 30.5-36.0 g/dL MCHC 33.5 LAB RDWCV 11.5-15.0 % RDW-CV High 17.2 LAB PLTCT 150-400 k/uL Low Platelet Count 82 Result Comment: Result checked and verified No clot detected. LAB MPV 9.0-12.7 fL MPV 11.4 LAB ABSNUC <0.01 k/uL Absolute nRBC <0.01 Performed By: #### CBC #### [facility] [address] [place], [place] [address] PROGRESS Observed: 01/10/2018 Status: COMPLETED Source: [place] 7:51 AM [facility] REPOSITORY HNO ID: [id number] Author: Melania Almanza Service: Pulmonary Disease Author Type: Physician Type: Progress Notes Filed: 01/10/2018 1:40 PM Note Text: MICU Staff WBC 5.91, afebrile Hemoglobin 8.3 (down from 9.2) with dark BM PTT 68.9 Platelets decreased to 86 BUN/creatinine improving at 21/.28 Cardiac echo showed normal ejection fraction 58.5%, status post St. Alex's mitral valve replacement, severe 3+ regurgitation of tricuspid valve, estimated RVSP 73 TSH 5.88 ASSESSMENT Acute blood loss anemia presents with INR 19.5 and hemoglobin 4.5. Transferred for further workup of melena. 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 Pulmonary hypertension (RVSP 73 on echo December 2017) Paroxysmal atrial fibrillation Hypothyroid Chronic kidney disease Left hip hematoma (from recent fall) Depression with suicidal ideation Diabetes Chronic right effusion/infiltrate PLAN Follow H/H Retrograde double-balloon enteroscopy (planned in January as outpatient) Anticoagulation resumed: heparin Follow up H/H PPI twice a day Signature: Melania Almanza MD [facility] STAFF PHYSICIAN NOTE OF PERSONAL INVOLVEMENT IN CARE I have reviewed the progress note obtained and documented by the fellow/resident, and I personally participated in the hudson components. I have discussed the case and management of the patient's care. The comments in my note revise or confirm relevant hudson components of the fellow/resident note. SIGNATURE: Melania Almanza MD [facility]:[phone] PROGRESS Observed: 01/10/2018 Status: COMPLETED Source: [place] 7:13 AM [facility] REPOSITORY [facility] ID: [id number] Author: Nicole Orantes Service: Critical Care Author Type: Resident Type: Progress Notes Filed: 01/10/2018 9:58 AM Note Text: Attestation signed by Melania Almanza at 01/10/2018 1:39 PM [facility] STAFF PHYSICIAN NOTE OF PERSONAL INVOLVEMENT IN CARE I have reviewed the progress note obtained and documented by the fellow/resident, and I personally participated in the hudson components. I have discussed the case and management of the patient's care. The comments in my separate note revise or confirm relevant hudson components of the fellow/resident note. SIGNATURE: Melania Almanza MD [facility]:[phone] Medical ICU Progress Note MICU Team: Evaluation date: 01/10/2018 Evaluation time: 7:13 AM Patient name:Emani Louis Admission date: 01/09/2018 Day # .1 in the MICU. Assessment and Plan: Patient Summary: This is a 77yoF with PMHx of paroxysmal A.fib, St. Alex. MVR (on warfarin), SSS s/p PM 2008, HLD, CKD 3, ACD, DM2, Hypothyroidism, chronic hypotension, COPD, Depression, GIB with extensive w/u in the past. Who presented to OSH with weakness, found to have supra-theraputic INR (19.5) with Hgb of 4.5, s/p Vit k, 4 RBCs and FFP. She was transferred here for further w/u for melena. Interval Events: 01/09: Admitted to MICU overnight. 01/10: 1 black BM overnight. PLAN OF THE DAY: -Continue to monitor H/H q6h -Trend platelet count -Monitor for bloody BM -Hold pressors; doesn't appear to be hypoperfusing given lactate normal Neuro/Psych: # Depression - using Venlafaxine and Trazodone to help sleeping. - Feels depressed, which is getting worse recently, feels that she might hurt herself. Plan: - Psych consult, appreciate recs. - Continue Venlafaxine and Trazodone at current home dose Cardiovascular: # paroxysmal A.fib. # 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 On warfarin at home, 2.5 mg daily. # HF, taking lasix 20 mg q48h # SSS, s/p PM 2008 # HLD, using Lipitor 20 mg - p/w weakness and melena, Hg was 4.5, and INR was 19.5, given Vitamin K and total of 4 units of RBCs, 2 FFP. ECHO 01/09/18: EF 58%, biatrial dilation, RVSP mildly decreased, Severe 3-4+ TR with hepatic vein systolic flow reversal, Mild 1+ MVR of St Alex prosthetic mitral valve Plan: - Hold warfarin in the setting of suprahepatic INR (19.5 at OSH, s/p Vit K) and active blood loss anemia. - Hold Lasix for now. - Continue Lipitor. - ECHO and CXR # Hypotension - BP usually runs low, in the 60/40s. - she is asymptomatic. Plan: - Hold off pressors for now. Respiratory: # COPD - on 2 L oxygen at home PRN. Using Albuterol, Spiriva. Plan: - Continue Albuterol, and Spiriva. Renal: - CKD 3 with hx of ATN and MAX 2008 - b/l cr 1.5-1.8 - Cr today 1.43 Plan: - Strict I/O, avoid nephrotoxic. FEN/GI: # GIB with melena. - she had a hx of GIB 2-3 years ago, w/u included endoscopy and capsule endoscopy at that time and there was no source of bleeding - she had recent w/u for melena. Capsule endoscopy 12/03/17: Non bleeding duodenal angiectasia. ?Abnormal fold in the distal/terminal ileum, exact nature of which cannot be determined. C-scope 11/26/17: Diverticulosis in the sigmoid colon and in the descending colon. A single non-bleeding colonic angiodysplastic lesion. Treated with argon plasma coagulation (APC). Clips were placed. GI radionuclide scan 03/15/17: there is normal perfusion of the tracer within the aora and common iliac arteries, homogeneous tracer uptake is seen within the liver which appears to be elarges as well as the spleen, there are no focal areas of extravasation to suggest a focal site of acute GIB at this time. EGD 10/30/16: normal Esophagus, stomach and duodenum. - She presented to OSH with weakness, found to have Hg of 4.7, and INR 19.5. With +ve FOBT - s/p 4 RBCs and 2 FFP and vit K. - she was transferred here for further w/u. Plan: - Protonix 40 PO BID. - Restarted regular diet - GI consult, appreciate recs - transfuse to keep Hg > 8, and INR < 1.3. ID: No acute issues. Endo: # DM2 - using 35 units at bedtime, and Humalog 15 + SS2 with meals. Plan: - Lantus 20 Qhs and SS2 # Hypothyroid - using Synthroid 50 Qd, Plan: - will continue home meds. Hem/Onc: # Acute on Chronic Anemia/Acute blood loss anemia. - taking Iron for 4 years, 325 TID, taking B12 and folic acid. - Hg was 4.5 at OSH, s/p 4 units of RBCs. Hg up to 9.9. Plan: - see GI plan above - Type and screen - H/H q6h, and transfuse for Hg < 8. Skin: No acute issues. Prophylaxis: GI: PPI DVT: IPC Physical Exam Vital Signs (last 24hrs min/max): Temp Av.4 ?C (97.6 ?F) Min: 36.3 ?C (97.3 ?F) Max: 36.6 ?C (97.9 ?F) Pulse Av.2 Min: 88 Max: 115 No Data Recorded Cuff BP Min: 61/35 Max: 90/52 Pain Score: 0/10 Net fluid balance Intake/Output Summary (Last 24 hours) at 01/10/18 0958 Last data filed at 01/10/18 0600 Gross per 24 hour Intake 645 ml Output 1 ml Net 644 ml General - Awake and alert. In no distress, cooperative. Neurological- No focal deficit, CN II-XII grossly intact. Sensation grossly intact HEENT- PERRL, EOMI. Normal dentition. Mucous membranes moist. Neck- Supple, full range of motion. No JVD. No lymphadenopathy. Cardiac- RRR, S1 and S2 present. No murmurs, gallops, rubs. Lungs- Clear to auscultation bilaterally. No wheezes, rales, rhonchi. Intubated: No Supplemental Oxygen: No No Data Recorded Abdomen- Normoactive bowel sounds. Soft, non-tender, non-distended. Extremities- Pulses: Palpable Edema: No Skin- Warm, well perfused. Rash: None Lines/Drains/Outputs Lines, Drains, and Airways Line Peripheral 01/09/18 0246 Admission to Hospital Short Right Arm 20 Gauge 1 day Peripheral 01/09/18 0445 Short Left Antecubital 20 Gauge 1 day Infusions NaCl 0.9% insulin regular heparin iv infusion (STANDARD NOMOGRAM) 25,000 units in NaCl 0.45% 250 mL PREMIX Last Rate: 1,200 Units/hr (01/10/18 0800) Nutrition Enteral Feeds: No, liquid diet Inpatient Medications: Current hospital medications: NaCl 0.9% iv infusion 5-30 mL/hr INTRAVENOUS CONTINUOUS 0.9% NaCl 3-5 mL 3-5 mL INTRAVENOUS q 12 H insulin regular human injection (short acting) (NovoLIN R,HumuLIN R) SUBCUTANEOUS q 6 H insulin regular 250 units in NaCl 0.9% 250 mL iv infusion - ICU NOMOGRAM 0.5-30 Units/hr INTRAVENOUS CONTINUOUS insulin regular human iv bolus 2-10 Units 2-10 Units INTRAVENOUS PRN dextrose 50% in water 25-50 mL syringe 12.5-25 g INTRAVENOUS PRN dextrose 40 % 15 g 15 g ORAL PRN glucagon 1 mg injection (GLUCAGEN) 1 mg SUBCUTANEOUS PRN acetaminophen 650 mg tab(s) (TYLENOL) 650 mg ORAL/FEEDING TUBE q 6 H PRN acetaminophen 650 mg suppository (TYLENOL) 650 mg RECTAL q 6 H PRN atorvastatin 20 mg tab(s) (LIPITOR) 20 mg ORAL DAILY folic acid 1 mg tab(s) 1 mg ORAL DAILY insulin glargine 20 Units pen (long acting) (LANTUS SOLOSTAR, BASAGLAR) 20 Units SUBCUTANEOUS AT BEDTIME venlafaxine 37.5 mg tab(s) (EFFEXOR) 37.5 mg ORAL BID levothyroxine 50 mcg tab(s) (SYNTHROID) 50 mcg ORAL DAILY tiotropium 18 mcg cap(s) and device for inhalation (SPIRIVA) 18 mcg INHALATION DAILY traZODone 150 mg tab(s) (DESYREL) 150 mg ORAL AT BEDTIME mupirocin 2% 0.5 g nasal ointment (BACTROBAN) 0.5 g NASAL BID heparin iv infusion (STANDARD NOMOGRAM) 25,000 units in NaCl 0.45% 250 mL PREMIX 0-3,000 Units/hr INTRAVENOUS CONTINUOUS heparin RATE CHANGE bolus 1,000-10,000 Units for subtherapeutic aptt results 1,000-10,000 Units INTRAVENOUS PRN pantoprazole DR 40 mg tab(s) (PROTONIX) 40 mg ORAL BID AC (0600/1600) Diagnostic tests reviewed for today's visit: Most recent labs and imaging results. Patient Checklist ? Are restraints necessary: No ? Deep vein thrombosis prophylaxis administered? No. Not indicated. ? Stress ulcer prophylaxis? Yes ? Nasogastric tube? No ? Morrissey catheter necessary? No ? Is central line essential? No ? Plan discussed with assigned RN? Yes Extended Emergency Contact Information Primary Emergency Contact: Zia Louis Mobile Relation: Spouse Secondary Emergency Contact: Latosha Olivia Mobile Relation: Daughter Nicole Orantes DO, PGY-1 01/10/18 7:13 AM Pager [phone] PTT,ANTICOAG THERAPY Collected: 01/10/2018 Status: F Source: [place] 6:53 AM [facility] REPOSITORY TYPE CODE TESTS RESULT OUT OF RANGE REFERENCE UNITS LAB APTT 23.0-32.4 sec High APTT 68.9 Result Comment: Unfractionated Heparin Therapeutic Ranges: Standard Heparin Nomogram: 53 to 78 seconds (anti-Xa level of 0.3 to 0.7 U/ml) Low Dose/ACS Nomogram: 49 to 67 seconds (anti-Xa level of 0.2 to 0.5 U/ml) Stroke Treatment Nomogram: 49 to 67 seconds (anti-Xa level of 0.2 to 0.5 U/ml) Note: The APTT therapeutic range has been determined for the current lot of laboratory APTT reagent in use throughout the [facility]. Performed By: #### PTTAC, PT #### [facility] [address] [place], [place] [address] PROTIME Collected: 01/10/2018 Status: F Source: [place] 6:53 AM [facility] REPOSITORY TYPE CODE TESTS RESULT OUT OF RANGE REFERENCE UNITS LAB PSEC 9.7-13.0 sec PT Sec 13.0 LAB INR 0.9-1.3 PT INR 1.3 Result Comment: Vitamin K Antagonist (VKA) Therapeutic Range: INR 2 to 3 (Target INR of 2.5) Note: For patients treated with VKA drugs, such as warfarin, the [place] [employer] 2012 Guideline recommends a therapeutic INR range of 2 to 3 (target INR of 2.5). This recommendation includes high-risk patients with antiphospholipid syndrome with previous arterial or venous thromboembolism, current-generation mechanical or bioprosthetic aortic heart valve replacement. Note: Patients with mechanical aortic valve replacement and additional risk factors for thromboembolic events (atrial fibrillation, previous thromboembolism, LV dysfunction, hypercoagulable conditions) or an older generation mechanical AVR (i.e., ball in-Cage) or any mechanical MVR should have a INR therapeutic range of 2.5 to 3.5 (target INR of 3). Italo LUJAN, et al. Chest 2012, 141:7S-47S Phoebe MORE, et al. [facility] 2017, 70: 252-289 Performed By: #### PTTAC, PT #### [facility] [address] [place], [place] [address] CBC AND DIFFERENTIAL Collected: 01/10/2018 Status: F Source: [place] 4:59 AM [facility] REPOSITORY TYPE CODE TESTS RESULT OUT OF REFERENCE UNITS RANGE LAB WBC 3.70-11.00 k/uL WBC 5.91 LAB RBC 3.90-5.20 m/uL Low RBC 2.79 LAB HGB 11.5-15.5 g/dL Low Hemoglobin 8.3 LAB HCT 36.0-46.0 % Low Hematocrit 25.1 LAB MCV 80.0-100.0 fL MCV 90.0 LAB MCH 26.0-34.0 pG MCH 29.7 LAB MCHC 30.5-36.0 g/dL MCHC 33.1 LAB RDWCV 11.5-15.0 % RDW-CV High 17.2 LAB PLTCT 150-400 k/uL Low Platelet Count 86 Result Comment: No clot detected. LAB MPV 9.0-12.7 fL MPV 11.2 LAB ANEUT % Neut% 85.8 LAB AANEUT 1.45-7.50 k/uL Abs Neut 5.07 LAB ALYMP % Lymph% 7.8 LAB AALYMP 1.00-4.00 k/uL Abs Low Lymph 0.46 LAB AMONO % Graves% 5.8 LAB AAMONO <0.87 k/uL Abs Graves 0.34 LAB AEOS % Eosin% 0.3 LAB AAEOS <0.46 k/uL Abs Eosin <0.03 LAB ABASO % Baso% 0.3 LAB AABASO <0.11 k/uL Abs Baso <0.03 LAB AUNRBC 0 /100 WBC NRBCs 0.0 LAB ABNRBC <0.01 k/uL Absolute nRBC <0.01 LAB DTYP DTYPE Auto Diff Performed By: #### CBCDIF, CMP, MG1, PHOS #### [facility] [address] [place], [place] [address] COMP METABOLIC PANEL Collected: 01/10/2018 Status: F Source: [place] 4:59 AM [facility] REPOSITORY TYPE CODE TESTS RESULT OUT OF REFERENCE UNITS RANGE LAB TP 6.3-8.0 g/dL Low Protein, Total 4.9 LAB ALB 3.9-4.9 g/dL Low Albumin 2.6 LAB CA 8.5-10.2 mg/dL Low Calcium, Total 7.2 LAB TBIL 0.2-1.3 mg/dL Bilirubin, Total 0.5 LAB ALKP 32-117 U/L Alkaline Phosphatase 56 LAB AST 13-35 U/L Low AST 10 LAB GLU 74-99 mg/dL Glucose 96 Result Comment: The [place] Diabetes Association (ADA) provides guidance for cutoff values for fasting glucose and random glucose. The ADA defines fasting as no caloric intake for at least 8 hours. Fas ting plasma glucose results between 100 to 125 mg/dL indicate increased risk for diabetes (prediabetes). Fasting plasma glucose results greater than or equal to 126 mg/dL meet the criteria for diagnosis of diabetes. In the absence of unequivocal hyperglycemia, results should be confirmed by repeat testing. In a patient with classic symptoms of hyperglycemia or hyperglycemic crisis, random plasma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 ?degrees SIGNATURE: Yo Herrera MD PATIENT NAME: Emani Louis DATE: January 09, 2018 TIME: 10:18 AM PAGER/CONTACT#: [id number] [facility] STAFF PHYSICIAN NOTE OF PERSONAL INVOLVEMENT IN CARE I have reviewed the consult note obtained and documented by the resident and I personally participated in the hudson components. I have discussed the case and management of the patient's care. The following comments revise or confirm relevant hudson components of the note. IMPRESSION: Admitted with INR of 19 .5. Says she was stressed with being hospitalized for pneumonia. Took dextromethorphan and mucinex frequently to prevent getting sick. May have mismanaged her meds too Currently is happy about going to [facility] and then home. Does not want to increase Effexor and Trazodone, both being managed by PCP PLAN: Ct Effexor andTrazodone Ok for d/c from psych standpoint Signing off Care Coordination Psychiatric Consult/Intervention: I personally spent 40 minutes involved in the care of this patient. Floresita Escobar MD January 09, 2018 4:47 PM CONSULT Observed: 01/09/2018 Status: COMPLETED Source: [place] 9:50 AM [facility] REPOSITORY HNO ID: [id number] Author: Pa Ken (Fel) Service: Gastroenterology Author Type: Fellow Type: Consults Filed: 01/09/2018 10:30 AM Note Text: Department of Gastroenterology AND Hepatology Digestive Disease [place] [facility] Date of Service January 09, 2018 Patient: Emani Louis Medical Record: [id number] Reason for Admission / Consultation: Opinion/Advice regarding melena Gastroenterology Attending: Dr. Juarez Impression: Emani Louis is a 77 YOF with pertinent PMH of Afib (on coumadin), CKD, T2DM, Valvular Heart Disease ([facility] Alex MVR, 3+ TVR), SSS s/p pacemaker, Diverticulosis, Pulmonary HTN and significant history of GI bleeding without a culprit lesion identified who presents to the MICU for further managemet of of melena in the context of a supratherapeutic INR (19.5) and Hgb of 4.5 s/p Vitamin K, FFP and 4 units of pRBC. She is on chronic iron therapy and recieves either weekly aranesp or blood transfusion per patient report. Extensive GI work up with exception of an irregular fold in the ileum has not identified a source. She is planned to have a double balloon on 02/06 to look at this region and this would be the next step. EGD 2005: Antral erythema with superficial erosions EGD 2010: small erosions in the antrum EGD 2015: Normal EGD 2017: Normal Colon 2006: Diverticula in descending Colon 2010: 2 small sessile polyps Colon 2013: Normal Colon 2018: one AVM without bleeding s/p APC Capsule 2015: Does not reach the cecum but no evidence of bleeding Capsule 2018: Abnormal fold in distal terminal ileum RBC Tag Scan 2017: No evidence of bleed CT abdomen without contrast: No luminal pathology Plan: --- Retrograde double balloon enteroscopy Addendum: Patient would not like to have this procedure performed on this admission. That is not my preference but the patient has a right to direct her own medical care and can have the procedure that is scheduled on 02/06. Thank you for the consult. Please call if her decision changes or clinical condition warrants. The GI service will sign-off at this time. History of Present Illness: Emani Louis is a 77 year old female with pertinent PMH of Afib (on coumadin), CKD, T2DM, Valvular Heart Disease (St. Alex MVR, 3+ TVR), SSS s/p pacemaker, Diverticulosis, Pulmonary HTN and significant history of GI bleeding who presents to the MICU for further managemet of of melena in the context of a supratherapeutic INR (19.5). On presentation her Hgb was 4.5 and she subsequently receieved Vitamin K, FFP and 4 units of pRBC with presented EGD 2005: Antral erythema with superficial erosions EGD 2010: small erosions in the antrum EGD 2015: Normal EGD 2017: Normal Colon 2006: Diverticula in descending Colon 2010: 2 small sessile polyps Colon 2013: Normal Colon 2018: one AVM without bleeding s/p APC Capsule 2015: Does not reach the cecum but no evidence of bleeding Capsule 2018: Abnormal fold in distal terminal ileum RBC Tag Scan 2017: No evidence of bleed CT abdomen without contrast: No luminal pathology Pertinent Review of Systems: GENERAL: fatigue NECK: Negative for lumps, goiter, pain and significant neck swelling RESPIRATORY: Negative for cough, wheezing or shortness of breath. CARDIOVASCULAR: Negative for chest pain, leg swelling or palpitations. GI: black stools MUSCULOSKELETAL: Negative for joint pain or swelling, back pain or muscle pain. HEMATOLOGY/LYMPHOLOGY Negative for prolonged bleeding, bruising easily or swollen nodes. ENDOCRINE: Negative for cold or heat intolerance, polyuria, polydipsia and goiter. NEURO: No history of headaches, syncope, paralysis, seizures or tremors All other reviewed and negative other than HPI. Past Medical History: PAST MEDICAL HISTORY Diagnosis Date - Acute kidney failure with lesion of tubular necrosis (HCC) 08/19/[address] Tobias. - Adenomatous colon polyp 08/30/2012 - Anemia in chronic kidney disease(285.21) 08/31/2011 - Atrial fibrillation (HCC) 05/09/2012 - Calculus of ureter 03/24/2008 - Cardiac pacemaker in situ 08/17/2008 Sick sinus syndrome. - Cholelithiasis 05/26/2013 - Chronic kidney disease, stage III (moderate) 09/23/2009 - Chronic rhinitis - Congestive heart failure, unspecified 07/24/2008 Mitral insufficiency. - DDD (degenerative disc disease) - Diabetes mellitus (HCC) - Diverticulosis of colon (without mention of hemorrhage) 10/17/05 - Esophageal reflux 08/15/2005 - Fibromyalgia - Generalized osteoarthrosis, unspecified site - Heart valve replaced by other means 08/17/2008 #25, [facility]. Mitral valve. - Iron deficiency 08/17/2011 - Lumbago 08/15/2005 - Melena - Moderate to severe pulmonary hypertension 09/21/2016 - Myalgia and myositis, unspecified - Other and unspecified hyperlipidemia 08/15/2005 - PSVT (paroxysmal supraventricular tachycardia) ([facility]) 04/10/2011 - Sleep apnea - Type II or unspecified type diabetes mellitus without mention of complication, not stated as uncontrolled 08/15/2005 - Unspecified asthma(493.90) 08/15/2005 - Unspecified cardiovascular disease heart cath 12/15 Past Surgical History: PAST SURGICAL HISTORY Procedure Laterality Date - CAPSULE ENDOSCOPY SMALL BOWEL 12/03/2017 - COLONOSCOP W/ OR W/O [facility] SPEC 10/17/05 - COLONOSCOP W/ OR W/O [facility] SPEC 08/25/2009 Colonoscopy - COLONOSCOP W/ OR W/O [facility] SPE[facility] 10/17/2012 Colonoscopy - COLONOSCOPY 11/26/2017 - EGD 01/16/2005 - EGD W/O OR W/BRUSH/WASH 08/25/2009 EGD - EGD W/O OR W/BRUSH/WASH 04/05/15 EGD inpt [facility] - EGD W/O OR W/BRUSH/WASH 10/30/2016 EGD - INSER DIAMOND PACER XVENOUS ATRIAL Perm pacemaker insert - LEFT HEART CATH,PERCUTANEOUS Cardiac cath, L heart - LIGATE FALLOPIAN TUBE Tubal ligation - PAST SURGICAL HISTORY OF cervical conization - PAST SURGICAL HISTORY OF 01/03/05 Heart Cath - PAST SURGICAL HISTORY OF Carpal tunnel surgery b/l wrists - PERICARDIAL FINE NEEDLE ASPIRATION 2008 Pericardial Window - REPLACEMENT OF MITRAL VALVE Mitral valve replacement, [facility] #25. 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 Oxygen 3 LPM at HS and with exertion. Has cane, wheelchair as needed. No safety concerns. Camping trailer during summer. Allergies: ALLERGIES Allergen Reactions - Ambien [Zolpidem Ta* Unknown - Ativan [Lorazepam] Other: See Comments just didn't work - Mobic [Meloxicam] Unknown - Pamelor [Nortriptyl* Unknown Medications: Prior to Admission Medications: pantoprazole DR (PROTONIX) 40 mg tablet Take 1 tablet by mouth once daily. folic acid 1 mg tablet Take 1 tablet by mouth once daily. potassium chloride ER (K-DUR, KLOR-CON) 20 mEq tablet Take 1 tablet by mouth once daily. From outside pharmacy. warfarin (COUMADIN) 2.5 mg tablet Take 1 tablet by mouth. From outside pharmacy. atorvastatin (LIPITOR) 20 mg tablet Take 1 tablet by mouth once daily. Lancets lancets Use as instructed 3 to 4 TIMES DAILY insulin dep E 11.9 venlafaxine (EFFEXOR) 37.5 mg tablet Take 1 tablet by mouth twice daily. Blood Sugar Diagnostic, Drum (ACCU-CHEK COMPACT TEST) strp Test blood sugar(s) 4 times daily. Dx: Type 2 DM - Uncontrolled E11.65 Insulin: Yes Blood-Glucose Meter, Drum-type (ACCU-CHEK COMPACT PLUS CARE) kit Accu-Check Compact Plus Meter Diagnosis: Type 2 DM - Uncontrolled E11.65 levothyroxine (SYNTHROID) 50 mcg tablet TAKE ONE TABLET BY MOUTH EVERY DAY HYDROcodone-acetaminophen (NORCO) 5-325 mg per tablet Take 1 tablet by mouth every 8 hours as needed for Pain. Magnesium 250 mg tab Take 250 mg by mouth once daily. insulin glargine (LANTUS SOLOSTAR) 100 unit/mL (3 mL) inpn Inject 35 Units subcutaneously daily at bedtime. For blood glucose >150 Insulin Lispro, Human, (HUMALOG KWIKPEN) 100 unit/mL inpn Inject 15 Units subcutaneously twice daily with meals for blood glucose >140. Add 2 units for every 50 of glucose >150. insulin needles, DISPOSABLE, (PEN NEEDLE) 31 gauge x 12/26 ndle USE ONE NEEDLE FOR EACH DOSE traZODone (DESYREL) 150 mg tablet Take 1-2 tablets by mouth daily at bedtime. furosemide (LASIX) 20 mg tablet 20 mg every other day. Daily cyanocobalamin (VITAMIN B-12) 1,000 mcg tab Take 1 tablet by mouth once daily. ferrous sulfate 325 mg (65 mg iron) EC tablet Take 1 tablet by mouth three times daily with meals. albuterol HFA (PROVENTIL HFA, VENTOLIN HFA) 90 mcg/actuation inhaler Inhale 2 Puffs as instructed every 6 hours as needed for Wheezing/Shortness of Breath. tiotropium bromide (SPIRIVA RESPIMAT) 2.5 mcg/actuation mist Inhale 2 Puffs as instructed once daily. Inhale two puffs once daily. docusate sodium (COLACE) 100 mg capsule Take 1 capsule by mouth twice daily as needed for Constipation. Cholecalciferol, Vitamin D3, (VITAMIN D) 1,000 unit ORAL Tab Take 1,000 Units by mouth once daily. Current hospital medications: NaCl 0.9% iv infusion 5-30 mL/hr INTRAVENOUS CONTINUOUS potassium chloride ER 40 mEq tab(s) (K-DUR, KLOR-CON) 40 mEq ORAL/FEEDING TUBE q 2 H PRN magnesium sulfate in water 4-6 g in sterile water 50 ml 4- 6 g INTRAVENOUS PRN sodium phosphate 45 mmol in NaCl 0.9% 250 mL 45 mmol INTRAVENOUS PRN 0.9% NaCl 3-5 mL 3-5 mL INTRAVENOUS q 12 H insulin regular human injection (short acting) (NovoLIN R,HumuLIN R) SUBCUTANEOUS q 6 H insulin regular 250 units in NaCl 0.9% 250 mL iv infusion - ICU NOMOGRAM 0.5-30 Units/hr INTRAVENOUS CONTINUOUS insulin regular human iv bolus 2-10 Units 2-10 Units INTRAVENOUS PRN dextrose 50% in water 25-50 mL syringe 12.5-25 g INTRAVENOUS PRN dextrose 40 % 15 g 15 g ORAL PRN glucagon 1 mg injection (GLUCAGEN) 1 mg SUBCUTANEOUS PRN acetaminophen 650 mg tab(s) (TYLENOL) 650 mg ORAL/FEEDING TUBE q 6 H PRN acetaminophen 650 mg suppository (TYLENOL) 650 mg RECTAL q 6 H PRN oxyCODONE IR 5-10 mg tab(s) (ROXICODONE) 5-10 mg ORAL/FEEDING TUBE q 4 H PRN HYDROmorphone 0.5-1 mg injection (DILAUDID) 0.5-1 mg INTRAVENOUS q 4 H PRN pantoprazole 40 mg injection (PROTONIX) 40 mg INTRAVENOUS BID AC (0600/1600) atorvastatin 20 mg tab(s) (LIPITOR) 20 mg ORAL DAILY folic acid 1 mg tab(s) 1 mg ORAL DAILY insulin glargine 20 Units pen (long acting) (LANTUS SOLOSTAR, BASAGLAR) 20 Units SUBCUTANEOUS AT BEDTIME venlafaxine 37.5 mg tab(s) (EFFEXOR) 37.5 mg ORAL BID levothyroxine 50 mcg tab(s) (SYNTHROID) 50 mcg ORAL DAILY tiotropium 18 mcg cap(s) and device for inhalation (SPIRIVA) 18 mcg INHALATION DAILY traZODone 150 mg tab(s) (DESYREL) 150 mg ORAL AT BEDTIME mupirocin 2% 0.5 g nasal ointment (BACTROBAN) 0.5 g NASAL BID Physical Exam: Vital Signs 01/09/18 0600 01/09/18 0700 01/09/18 0800 01/09/18 0900 BP: (!) 74/52 (!) 61/44 (!) 64/48 (!) 75/49 Pulse: 106 109 98 114 Resp: 22 30 25 (!) 39 Temp: 36.6 ?C (97.9 ?F) TempSrc: Oral SpO2: 100% 94% 96% 96% Weight: Height: Intake/Output Summary (Last 24 hours) at 01/09/18 0950 Last data filed at 01/09/18 0400 Gross per 24 hour Intake 0 ml Output 0 ml Net 0 ml VITAL SIGNS: BP 75/49 Pulse 114 Temp (Src) 97.9 (Oral) Resp 39 Ht 5' 2 (1.58m) Wt 135 lb 9.3 oz (61.5kg) SpO2 96% BMI 24.79 kg/(m2). General appearance: well appearing, alert, in no acute distress Skin: no rashes or lesions Head: normal Eyes: Anicteric sclera. ENT: No oral erythema Neck: Supple Lungs: lungs clear to auscultation, no wheezing or rhonchi Heart: tachycardic with mechanical heart sounds Abdomen: Abdomen soft, non-tender. Bowel sounds normal. Extremities: Extremities normal. Musculoskeletal: Muscular strength grossly intact Neuro: CN2-12 grossly intact Bowel movements black Labs: CBC, Coags, BMP, Mg, Phos Recent Labs 01/09/1844601/09/1842901/09/186 01/08/18201401/08/18 1150 01/08/18 0640 01/08/18 0010 WBC -- -- 8.83 -- -- 7.76 -- -- HB -- -- 9.9* 8.9* 9.7* 6.1* -- 7.2* HCT -- -- 29.6* -- -- 18.6* -- -- PLT -- -- 120* -- -- 110* -- -- INR -- -- 1.1 -- -- 1.33 -- 3.45 APTT -- -- 24.9 -- -- -- -- -- NA -- 143 143 -- -- 143 -- -- K -- 4.1 4.4 -- -- 4.3 -- -- CHLOR -- 112* 112* -- -- 118* -- -- CO2 23* 18* 17* -- -- 22 < > -- BUN -- 31* 31* -- -- 40* -- -- CREAT -- 1.33* 1.34* -- -- 1.43* -- -- GLUC -- 148* 146* -- -- 144* -- -- IC 1.18 -- -- -- -- -- -- -- CA -- 7.6* 7.6* -- -- 7.0* -- -- MG -- 2.0 2.0 -- -- -- -- -- P -- 1.8* 1.8* -- -- -- -- -- < > = values in this interval not displayed. Liver Function, Amylase, AND Lipase Recent Labs 01/09/1844601/09/1842901/09/18305 TPROT -- 5.5* 5.9* ALB -- 3.1* 3.1* ALT -- 10 12 AST -- 14 17 ALKPHOS -- 59 59 TBILI -- 0.7 0.8 LACT 1.4 -- -- Component Latest Ref Rng AND Units 12/17/2017 01/08/2018 01/09/2018 WBC 3.70 - 11.00 k/uL 7.76 8.83 RBC 3.90 - 5.20 m/uL 2.09 (L) 3.33 (L) HGB 11.2 - 15.7 g/dL 6.1 (LL) Hematocrit 36.0 - 46.0 % 18.6 (LL) 29.6 (L) MCV 80.0 - 100.0 fL 89.0 88.9 MCH 26.0 - 34.0 pG 29.2 29.7 MCHC 30.5 - 36.0 g/dL 32.8 33.4 RDW 11.7 - 14.4 % 17.1 (H) RDW-SD 36.4 - 46.3 fl 51.7 (H) Platelet Count 150 - 400 k/uL 110 (L) 120 (L) MPV 9.0 - 12.7 fL 10.7 11.1 Seg Neutrophil % 85.7 Immature Grans % 1.50 Lymphocyte % 7.7 Monocyte % 4.1 Eosinophil % 0.9 Basophil % 0.1 Abs. Neut(Anc) 1.56 - 6.13 thou/cmm 6.65 (H) Immature Grans # 0.00 - 0.05 thou/cmm 0.12 (H) Abs. Lymph 1.18 - 3.74 thou/cmm 0.60 (L) Abs. Graves 0.27 - 0.70 thou/cmm 0.32 Abs. Eosin 0.00 - 0.31 thou/cmm 0.07 Abs. Baso 0.01 - 0.08 thou/cmm 0.01 Hemoglobin 11.5 - 15.5 g/dL 9.9 (L) RDW-CV 11.5 - 15.0 % 17.5 (H) Neut% % 88.6 Abs Neut (ANC) 1.45 - 7.50 k/uL 7.82 (H) Lymph% % 6.6 Abs Lymph 1.00 - 4.00 k/uL 0.58 (L) Graves% % 4.3 Abs Graves <0.87 k/uL 0.38 Eosin% % 0.3 Abs Eosin <0.46 k/uL 0.03 Baso% % 0.2 Abs Baso <0.11 k/uL <0.03 Nucleated Reds 0 /100 WBC 0.0 Absolute nRBC <0.01 k/uL <0.01 Diff Type Auto Diff Iron 41 - 186 ug/dL 48 TIBC 232 - 386 ug/dL 281 Transferrin Saturation 15 - 57 % 17 SIGNATURE: Pa Ken MD, Vasyl PATIENT NAME: Emani Louis DATE: January 09, 2018 CASE MGT INIT Observed: 01/09/2018 Status: COMPLETED Source: [facility] 8:57 AM [facility] [place] REPOSITORY O ID: [id number] Author: Claudio (Rn) CINDY Villa Service: Care Management Author Type: Registered Nurse Type: Care Mgt Initial Assessment Filed: 01/09/2018 10:42 AM Note Text: CARE MANAGEMENT: ASSESSMENT AND DISCHARGE PLAN SERVICE DATE: 01/09/2018 SERVICE TIME: 8:57 AM PRIMARY CARE PHYSICIAN: Kodak Muñoz MD ADMISSION STATUS: Inpatient Needs Prior to Discharge: To Be Determined MEDICAL: Patient/Paste Thinner Stated Goals: To return home to life as it was Health Insurance: MEDICARE A Health Issues Impacting Discharge Plan: anemia Last Admission Date: Previous admit date: 01/08/2018 Is this Within the Past 30 days? No and Hospital transfer Advance Directive: Health Literacy: 1. How often do you need to have someone help you when you read instructions, pamphlets, or other written material from your doctor or pharmacy? Rarely - 2 2. How confident are you filling out medical forms by yourself? Quite a bit - 2 If Patient scores > 3 on either question, the following interventions were put into place: Patient did not score > 3 FUNCTIONAL AND COGNITIVE/BEHAVIORAL PRIOR TO ADMISSION: Baseline Mental Status: Alert AND Oriented, Person, Place , Time and Situation Functional Status: Independent Does Patient Currently Receive Any Community Services or Home Care? None Equipment Prior to Admission: Cane - Straight Oxygen 2 liters per minute Wheelchair Has the Patient Been in a Halfway Facility in the Past 30 days? No SOCIAL: Living Arrangement: Home Lives With: Spouse Financial Resources: Retired Primary Contact: Extended Emergency Contact Information Primary Emergency Contact: Zia Louis Mobile Relation: Spouse Secondary Emergency Contact: Latosha Olivia Mobile Relation: Daughter Supportive: Yes Other Important Patient Contacts: None Caregiver Assessment: Caregiver is ready, willing and able to meet the patient's needs as recommended by the inter-professional team? No Caregiver Needed Patient's transition needs and plan for meeting these needs: TBD Does the patient have an acute stroke diagnosis, or has the patient had a stroke during this admission? No Medication Adherence: I am convinced of the importance of my prescription medication: Agree completely - 0 I worry that my prescription medication will do more harm than good to me Disagree completely - 0 I feel financially burdened by my orx-ez-jevfzk expenses for my prescription medication: Disagree completely - 0 Patient is categorized as low risk < 2 Are you interested in bedside delivery of your medications? No Food Concerns: In the Last Month, Have You had Trouble Getting Food? No trouble getting food During the Last Month, Have You Worried Whether Your Food Would Run Out Before You Had Enough Money to Buy More? No Is the Patient Psychosocially Complex? No ASSESSMENT AND PLAN: Medical Needs: 2 or more chronic diseases Psychosocial Needs: None FREEDOM OF CHOICE EXPLAINED: N/A POTENTIAL TRANSITION PLANS Home To Be Determined 01/09 77 YOF with PMH of Afib (on coumadin), CKD, T2DM, Valvular Heart Disease, SSS s/p pacemaker, Diverticulosis, Pulmonary HTN and significant history of GI bleeding without a culprit lesion identified who presents to the MICU for further managemet of of melena in the context of a supratherapeutic INR. CM to follow medical course and plan discharge accordingly. SIGNATURE: Claudio Villa RN PATIENT NAME: Emani Louis DATE: January 09, 2018 TIME: 8:57 AM PAGER/CONTACT #: [phone] PROGRESS Observed: 01/09/2018 Status: COMPLETED Source: [place] 8:11 AM [facility] REPOSITORY O ID: [id number] Author: Karma Felix Service: Critical Care Author Type: Resident Type: Progress Notes Filed: 01/09/2018 8:46 AM Note Text: Attestation signed by Mleania Almanza at 01/09/2018 9:20 AM [facility] STAFF PHYSICIAN NOTE OF PERSONAL INVOLVEMENT IN CARE I have reviewed the progress note obtained and documented by the fellow/resident, and I personally participated in the hudson components. I have discussed the case and management of the patient's care. The comments in my separate note revise or confirm relevant hudson components of the fellow/resident note. SIGNATURE: Melania Almanza MD [facility] PAGER:[phone] MICU PROGRESS NOTE WITH COORD CARE SERVICE DATE: 01/09/2018 SERVICE TIME: 8:11 AM ADMISSION DATE: 01/09/2018 Day #: 1 in the MICU. Objective A/P: Summary: This is a 77 year old with PMHx of paroxysmal A.fib. 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 Who presented to OSH with weakness, found to have supra-theraputic INR (19.5) with Hg of 4.5, s/p Vit k, 4 RBCs and FFP. She was transferred here for further w/u for melena. Interval Events: 01/09: Admitted to MICU overnight. PLAN OF THE DAY: -GI consult -H/H q6h -NPO -Hold anti-hypertensives; doesn't appear to be hyperperfusing with no lactate -Psych consult Neuro/Psych: # Depression - using Venlafaxine and Trazodone to help sleeping. - Feels depressed, which is getting worse recently, feels that she might hurt herself. Plan: - Consider consult psychiatry in the morning. - Continue Venlafaxine and Trazodone. Cardiovascular: # paroxysmal A.fib. # MVR with St. Alex. valve 2007. On warfarin at home, 2.5 mg daily. # HF, taking lasix 20 mg q48h. # SSS, s/p PM 2008 # HLD, using Lipitor 20 mg - p/w weakness and melena, Hg was 4.5, and INR was 19.5, given Vitamin K and total of 4 units of RBCs, 2 FFP. Plan: - Hold warfarin in the setting of suprahepatic INR (19.5 at OSH, s/p Vit K) and active blood loss anemia. - Hold Lasix for now. - Continue Lipitor. - ECHO and CXR # Hypotension - BP usually runs low, in the 60/40s. - she is asymptomatic. Plan: - Hold off pressors for now. Respiratory: # COPD - on 2 L oxygen at home PRN. Using Albuterol, Spiriva. Plan: - Continue Albuterol, and Spiriva. Renal: - CKD 3 with hx of ATN and MAX 2008 - b/l cr 1.5-1.8 - Cr today 1.43 Plan: - Strict I/O, avoid nephrotoxic. FEN/GI: # GIB with melena. - she had a hx of GIB 2-3 years ago, w/u included endoscopy and capsule endoscopy at that time and there was no source of bleeding - she had recent w/u for melena. Capsule endoscopy 12/03/17: Non bleeding duodenal angiectasia. ?Abnormal fold in the distal/terminal ileum, exact nature of which cannot be determined. C-scope 11/26/17: Diverticulosis in the sigmoid colon and in the descending colon. A single non-bleeding colonic angiodysplastic lesion. Treated with argon plasma coagulation (APC). Clips were placed. GI radionuclide scan 03/15/17: there is normal perfusion of the tracer within the aora and common iliac arteries, homogeneous tracer uptake is seen within the liver which appears to be elarges as well as the spleen, there are no focal areas of extravasation to suggest a focal site of acute GIB at this time. EGD 10/30/16: normal Esophagus, stomach and duodenum. - She presented to OSH with weakness, found to have Hg of 4.7, and INR 19.5. With +ve FOBT - s/p 4 RBCs and 2 FFP and vit K. - she was transferred here for further w/u. Plan: - Protonix 40 IV BID. - Keep NPO for now. - consult GI in the morning for possible DBE. - check FOBT. - transfuse to keep Hg > 8, and INR < 1.3. ID: No acute issues. Endo: # DM2 - using 35 units at bedtime, and Humalog 15 + SS2 with meals. Plan: - Lantus 20 Qhs and SS2 # Hypothyroid - using Synthroid 50 Qd, Plan: - will continue home meds. Check TSH Hem/Onc: # Acute on Chronic Anemia/Acute blood loss anemia. - taking Iron for 4 years, 325 TID, taking B12 and folic acid. - Hg was 4.5 at OSH, s/p 4 units of RBCs. Hg up to 9.9. Plan: - see GI plan above - Type and screen - H/H q6h, and transfuse for Hg < 8. Skin: No acute issues. Prophylaxis: GI: PPI DVT: IPC VITAL SIGNS (last 24hrs min/max): Temp Av.6 ?C (97.8 ?F) Min: 36.6 ?C (97.8 ?F) Max: 36.6 ?C (97.8 ?F) Pulse Av.1 Min: 84 Max: 112 No Data Recorded Cuff BP Min: 61/44 Max: 84/53 Pain Score: 0/10 Vital signs reviewed. Relevant comments- None PHYSICAL EXAM PERFORMED: NET FLUID BALANCE Intake/Output Summary (Last 24 hours) at 01/09/18 0820 Last data filed at 01/09/18 0400 Gross per 24 hour Intake 0 ml Output 0 ml Net 0 ml MEDICATIONS Hospital/inpatient medications reviewed INDWELLING CATHETERS: None HEENT: Oral Mucosa: Moist mucous membranes Eyes: PERRLA Neck: Unremarkable; No adenopathy or JVD Cardiovascular: Regular tachycardia Relevant Hemodynamic Data: None Respiratory: Clear to auscultation Vent/Oxygen: On RA Abdomen: Soft, Nontender and Positive bowel sounds Extremities: Edema- No Skin: Abnormalities- No Breakdown- No Neurologic: Awake, oriented, Alert and Follows commands NUTRITION: NPO Enteral Feeds: No DATA: Diagnostic tests reviewed for today's visit: Most recent labs and imaging results. Assessment/Plan Active Hospital Problems Diagnosis - GIB (gastrointestinal bleeding) - Chronic kidney disease, stage III (moderate) - Hypothyroidism Medication and Non-Pharmacologic VTE Prophylaxis/Anticoagulants 01/09/18244 vte pharmacologic prophylaxis contraindicated ([place]) 01/09/18244 pneumatic compression stockings ([place]) VTE Prophylaxis: Contraindicated for GIB PATIENT CHECKLIST ? Are restraints necessary: No ? Deep vein thrombosis prophylaxis administered? No. Contraindicated. ? Stress ulcer prophylaxis? Yes ? Nasogastric tube? No ? Morrissey catheter necessary? No ? Is central line essential? No ? Plan discussed with assigned RN? Yes ? Family updated within last 24 hours? Yes SIGNATURE: Karma Felix MD PATIENT NAME: Emani Louis DATE: January 09, 2018 TIME: 8:11 AM PAGER/CONTACT #: [phone] PROGRESS Observed: 01/09/2018 Status: COMPLETED Source: [place] 8:07 AM [facility] REPOSITORY [facility] ID: [id number] Author: Melania Almanza Service: Pulmonary Disease Author Type: Physician Type: Progress Notes Filed: 01/09/2018 9:31 AM Note Text: MICU Staff WBC 8.8 afebrile PT 1.1 Hemoglobin 9.9 after transfusions Platelets 120 BUN/creatinine 31/1.33 (improved from 52/1.69) Lactate 1.4 CXR personally reviewed and reported as showing a stable (vs 8.2016) right effusion with hazy and patchy opacity right base ? BP 75 systolic which is at her baseline, She is awake and alert ASSESSMENT Acute blood loss anemia presents with INR 19.5 and hemoglobin 4.5. Transferred for further workup of melena URTI viral with sick contact () Frequent previous GI bleeds EGDs and capsule endoscopy without source identification Paroxysmal atrial fibrillation Sick sinus syndrome status post pacemaker Mitral valve replacement with St. Alex valve Paroxysmal atrial fibrillation Hypothyroid Chronic kidney disease Left hip hematoma (from recent fall) Depression with suicidal ideation Diabetes Chronic right effusion/infiltrate PLAN IV fluids Cardiac echo Hold anticoagulation Follow-up HANDH then heparin if stable GI consult and possible EGD PPI twice a day Check TSH Consult psychiatry (on venlafaxine and trazodone) Signature: Melania Almanza MD [facility] STAFF PHYSICIAN NOTE OF PERSONAL INVOLVEMENT IN CARE I have reviewed the progress note obtained and documented by the fellow/resident, and I personally participated in the hudson components. I have discussed the case and management of the patient's care. The comments in my separate note revise or confirm relevant hudson components of the fellow/resident note. This patient has a high probability of sudden, clinically significant deterioration, which requires the highest level of physician preparedness to intervene urgently. I managed/supervised life or organ supporting interventions that required frequent physician assessment. I devoted my full attention to the direct care of this patient for the amount of time indicated below. Time I spent with family or surrogate(s) is included only if the patient was incapable of providing the necessary information or participating in medical decision making. Time devoted to teaching and to any procedures I billed separately is not included. Critical Care Documentation: The patient has the following organ/system impairment(s): Acute blood loss Time spent providing critical care services: 30+ minutes. SIGNATURE: Melania Almanza MD [facility] PAGER:[phone] GASV + ALL Collected: 01/09/2018 Status: F Source: [place] 4:47 AM [facility] REPOSITORY TYPE CODE TESTS RESULT OUT OF REFERENCE UNITS RANGE LAB VPH 7.32-7.42 pH 7.31 Low LAB VPC2 42-55 mm Hg pCO2 44 LAB VPO2 35-45 mm Hg pO2 21 Low LAB VBE mmol/L Base Excess NEG 4 LAB VHC3 24-28 mmol/L Bicarbonate 21 Low LAB VC2C 25-29 mmol/L CO2 Content 23 Low LAB O2HBCX 60-85 % 31 Low Oxyhemoglobin, Joe. LAB CO <2.0 % 1.6 Carboxyhemoglobin ,Joe LAB METHB 0.4-1.5 % 1.1 Methemoglobin LAB VTMP C 36.5 Temperature, Body LAB VPHTC 7.32-7.42 pH, Temp 7.32 Corrected LAB VPC2T mm Hg pCO2, Temp 43 Correct LAB VPO2T mm Hg pO2, Temp 20 Corrected LAB NAB 132-148 mmol/L 141 Sodium,Whole Bld LAB KWB 3.5-5.0 mmol/L Potassium, 4.0 Whole Bld LAB HGBB 11.5-15.5 g/dL 9.6 Low Hemoglobin,Total, ACL LAB HCTB 36.0-46.0 % Hematocrit, 30 Low ACL LAB IC 1.08-1.30 mmol/L Calcium, 1.18 Ion, WB LAB GLB 60-105 mg/dL 152 High Glucose,Whole Bld LAB LACT 0.5-2.2 mmol/L Lactate 1.4 LAB VBGCOM Blood Gas O2 Comm, Joe Administration Result Comment: 2LNC Performed By: #### VALLBG #### [facility] [address] [place], [place] [address] XR CHEST 1V FRONTAL Observed: 01/09/2018 Status: F Source: [facility] 4:42 AM [facility] REPOSITORY * * *Final Report* * * DATE OF EXAM: Jan 09 2018 4:42AM PAMELA [id number] - XR CHEST 1V FRONTAL PORT / PROCEDURE REASON: Shortness of breath * * * * Physician Interpretation * * * * EXAMINATION: CHEST RADIOGRAPH (PORTABLE SINGLE VIEW AP) Exam Date/Time: 01/09/2018 4:42 AM Clinical History: Shortness of breath MQ: [id number] Comparison: 03/27/2017 RESULT: See impression. IMPRESSION: Lines, tubes, and devices: Permanent pacemaker leads to right heart chambers Lungs and pleura: Right effusion with hazy and patchy opacity right base, stable. Diminished reticular opacities since prior, likely improved edema. No overt pneumothorax. Cardiomediastinal silhouette: No substantial interval change post sternotomy for valve repair Other: . Iv Technician: PSCB Transcribe Date/Time: Jan 09 2018 8:21A Dictated by : JESSIE DOWLING MD This examination was interpreted and the report reviewed and electronically signed by: JESSIE DOWLING MD on Jan 09 2018 8:23AM EST [id number] COMP METABOLIC PANEL Collected: 01/09/2018 Status: F Source: [place] 4:30 AM [facility] REPOSITORY TYPE CODE TESTS RESULT OUT OF REFERENCE UNITS RANGE LAB TP 6.3-8.0 g/dL Low Protein, Total 5.5 LAB ALB 3.9-4.9 g/dL Low Albumin 3.1 LAB CA 8.5-10.2 mg/dL Low Calcium, Total 7.6 LAB TBIL 0.2-1.3 mg/dL Bilirubin, Total 0.7 LAB ALKP 32-117 U/L Alkaline Phosphatase 59 LAB AST 13-35 U/L AST 14 Result Comment: Results may be falsely increased due to interference by hemolysis. Suggest reorder as clinically indicated. LAB GLU 74-99 mg/dL High Glucose 148 Result Comment: The [place] [employer] (ADA) provides guidance for cutoff values for fasting glucose and random glucose. The ADA defines fasting as no caloric intake for at least 8 hours. Fas ting plasma glucose results between 100 to 125 mg/dL indicate increased risk for diabetes (prediabetes). Fasting plasma glucose results greater than or equal to 126 mg/dL meet the criteria for diagnosis of diabetes. In the absence of unequivocal hyperglycemia, results should be confirmed by repeat testing. In a patient with classic symptoms of hyperglycemia or hyperglycemic crisis, random plasma glucose results greater than or equal to 200 mg/dL meet the criteria for diagnosis of diabetes. Reference: Standards of Medical Care in Diabetes 2016, [place] [employer]. Diabetes Care. 2016.39(Suppl 1). LAB BUN 7-21 mg/dL BUN High 31 LAB CRET 0.58-0.96 mg/dL Creatinine High 1.33 LAB NA 136-144 mmol/L Sodium 143 LAB K 3.7-5.1 mmol/L Potassium 4.1 LAB CL 97-105 mmol/L Chloride High 112 LAB CO2 22-30 mmol/L Low CO2 18 LAB AGAP 9-18 mmol/L Anion Gap 13 LAB ALT 7-38 U/L ALT 10 LAB GFRAA eGFR- Amer. 47 LAB GFRNAA . eGFR-All Other Races 39 Result Comment: eGFR (Estimated GFR) Units of measure: mL/min/1.73 meters squared eGFR is derived from the reexpressed MDRD Study equation using the following parameters: serum creatinine, age, gender and race. The creatinine assay has been calibrated to be traceable to IDMS. An eGFR <60 mL/min/1.73m2 for >3 months is consistent with chronic kidney disease. Refer to KDOQI guidelines for clinical interpretation. In patients with unstable renal function, e.g. those with acute kidney injury, the eGFR may not accurately reflect actual GFR. Performed By: #### CMP, MG1, PHOS #### [facility] [address] [place], [place] [address] MAGNESIUM Collected: 01/09/2018 Status: F Source: [place] 4:30 AM [facility] REPOSITORY TYPE CODE TESTS RESULT OUT OF REFERENCE UNITS RANGE LAB MG 1.7-2.3 mg/dL Magnesium 2.0 Performed By: #### CMP, MG1, PHOS #### [place] [address] PHOSPHORUS Collected: 01/09/2018 Status: F Source: [place] 4:30 AM [facility] REPOSITORY TYPE CODE TESTS RESULT OUT OF REFERENCE UNITS RANGE LAB PHOS 2.7-4.8 mg/dL Low Phosphorus 1.8 Performed By: #### CMP, MG1, PHOS #### [place] [address] TSH Collected: 01/09/2018 Status: F Source: [place] 4:30 [facility] REPOSITORY TYPE CODE TESTS RESULT OUT OF RANGE REFERENCE UNITS LAB TSH 0.400-5.500 uU/mL High TSH 5.880 Performed By: #### TSH #### [place] [address] STAPH AUREUS PCR Collected: 01/09/2018 Status: F Source: [place] 3:07 AM [facility] REPOSITORY TYPE CODE TESTS RESULT OUT OF RANGE REFERENCE UNITS LAB SASRC Nasal S aureus Spec Source LAB MRSRES Positive for MRSA Abnormal MRSA by PCR. Alert PCR LAB SARES Positive for Abnormal Staph Staphylococcus Alert aureus PCR aureus by PCR. Performed By: #### SAPCR #### [place] [address] TYPE AND SCREEN Collected: 01/09/2018 Status: F Source: [place] 3:07 AM [facility] REPOSITORY TYPE CODE TESTS RESULT OUT OF REFERENCE UNITS RANGE LAB %ABR A ABO/RH(D) POSITIVE LAB % Antibody NEG Screen Performed By: #### TSCR #### [place] [address] CBC AND DIFFERENTIAL Collected: 01/09/2018 Status: F Source: [place] 3:06 AM [facility] REPOSITORY TYPE CODE TESTS RESULT OUT OF REFERENCE UNITS RANGE LAB WBC 3.70-11.00 k/uL WBC 8.83 LAB RBC 3.90-5.20 m/uL Low RBC 3.33 LAB HGB 11.5-15.5 g/dL Low Hemoglobin 9.9 LAB HCT 36.0-46.0 % Low Hematocrit 29.6 LAB MCV 80.0-100.0 fL MCV 88.9 LAB MCH 26.0-34.0 pG MCH 29.7 LAB MCHC 30.5-36.0 g/dL MCHC 33.4 LAB RDWCV 11.5-15.0 % RDW-CV High 17.5 LAB PLTCT 150-400 k/uL Low Platelet Count 120 LAB MPV 9.0-12.7 fL MPV 11.1 LAB ANEUT % Neut% 88.6 LAB AANEUT 1.45-7.50 k/uL Abs Neut High 7.82 LAB ALYMP % Lymph% 6.6 LAB AALYMP 1.00-4.00 k/uL Low Abs Lymph 0.58 LAB AMONO % Graves% 4.3 LAB AAMONO <0.87 k/uL Abs Graves 0.38 LAB AEOS % Eosin% 0.3 LAB AAEOS <0.46 k/uL Abs Eosin 0.03 LAB ABASO % Baso% 0.2 LAB AABASO <0.11 k/uL Abs Baso <0.03 LAB AUNRBC 0 /100 WBC NRBCs 0.0 LAB ABNRBC <0.01 k/uL Absolute nRBC <0.01 LAB DTYP DTYPE Auto Diff Performed By: #### CBCDIF, PT, PTT, CMP, MG1, PHOS #### [facility] [address] [place], [place] [address] PROTIME Collected: 01/09/2018 Status: F Source: [place] 3:06 AM [facility] REPOSITORY TYPE CODE TESTS RESULT OUT OF RANGE REFERENCE UNITS LAB PSEC 9.7-13.0 sec PT Sec 11.5 LAB INR 0.9-1.3 PT INR 1.1 Result Comment: Vitamin K Antagonist (VKA) Therapeutic Range: INR 2 to 3 (Target INR of 2.5) Note: For patients treated with VKA drugs, such as warfarin, the [place] [employer] 2012 Guideline recommends a therapeutic INR range of 2 to 3 (target INR of 2.5). This recommendation includes high-risk patients with antiphospholipid syndrome with previous arterial or venous thromboembolism, current-generation mechanical or bioprosthetic aortic heart valve replacement. Note: Patients with mechanical aortic valve replacement and additional risk factors for thromboembolic events (atrial fibrillation, previous thromboembolism, LV dysfunction, hypercoagulable conditions) or an older generation mechanical AVR (i.e., ball in-Cage) or any mechanical MVR should have a INR therapeutic range of 2.5 to 3.5 (target INR of 3). Italo GH, et al. Chest 2012, 141:7S-47S Phoebe RA, et al. [facility] 2017, 70: 252-289 Performed By: #### CBCDIF, PT, PTT, CMP, MG1, PHOS #### [facility] [address] [place], [place] [id number] APTT Collected: 01/09/2018 Status: F Source: [place] 3:06 AM [facility] REPOSITORY TYPE CODE TESTS RESULT OUT OF RANGE REFERENCE UNITS LAB APTT 23.0-32.4 sec APTT 24.9 Result Comment: Unfractionated Heparin Therapeutic Ranges: Standard Heparin Nomogram: 53 to 78 seconds (anti-Xa level of 0.3 to 0.7 U/ml) Low Dose/ACS Nomogram: 49 to 67 seconds (anti-Xa level of 0.2 to 0.5 U/ml) Stroke Treatment Nomogram: 49 to 67 seconds (anti-Xa level of 0.2 to 0.5 U/ml) Note: The APTT therapeutic range has been determined for the current lot of laboratory APTT reagent in use throughout the [facility]. Performed By: #### CBCDIF, PT, PTT, CMP, MG1, PHOS #### [facility] [employer] [facility] [address] [place], [place] [address] COMP METABOLIC PANEL Collected: 01/09/2018 Status: F Source: [place] 3:06 AM [facility] REPOSITORY TYPE CODE TESTS RESULT OUT OF REFERENCE UNITS RANGE LAB TP 6.3-8.0 g/dL Low Protein, Total 5.9 LAB ALB 3.9-4.9 g/dL Low Albumin 3.1 LAB CA 8.5-10.2 mg/dL Low Calcium, Total 7.6 LAB TBIL 0.2-1.3 mg/dL Bilirubin, Total 0.8 LAB ALKP 32-117 U/L Alkaline Phosphatase 59 LAB AST 13-35 U/L AST 17 Result Comment: Results may be falsely increased due to interference by hemolysis. Suggest reorder as clinically indicated. LAB GLU 74-99 mg/dL High Glucose 146 Result Comment: The [place] [employer] (ADA) provides guidance for cutoff values for fasting glucose and random glucose. The ADA defines fasting as no caloric intake for at least 8 hours. Fas ting plasma glucose results between 100 to 125 mg/dL indicate increased risk for diabetes (prediabetes). Fasting plasma glucose results greater than or equal to 126 mg/dL meet the criteria for diagnosis of diabetes. In the absence of unequivocal hyperglycemia, results should be confirmed by repeat testing. In a patient with classic symptoms of hyperglycemia or hyperglycemic crisis, random plasma glucose results greater than or equal to 200 mg/dL meet the criteria for diagnosis of diabetes. Reference: Standards of Medical Care in Diabetes 2016, [place] [employer]. Diabetes Care. 2016.39(Suppl 1). LAB BUN 7-21 mg/dL BUN High 31 LAB CRET 0.58-0.96 mg/dL Creatinine High 1.34 LAB NA 136-144 mmol/L Sodium 143 LAB K 3.7-5.1 mmol/L Potassium 4.4 Result Comment: Results may be falsely increased due to interference by hemolysis. Suggest reorder as clinically indicated. LAB CL 97-105 mmol/L High Chloride 112 LAB CO2 22-30 mmol/L Low CO2 17 LAB AGAP 9-18 mmol/L Anion Gap 14 LAB ALT 7-38 U/L ALT 12 Result Comment: Results may be falsely increased due to interference by hemolysis. Suggest reorder as clinically indicated. LAB GFRAA eGFR- Amer. 47 LAB GFRNAA . eGFR-All Other Races 39 Result Comment: eGFR (Estimated GFR) Units of measure: mL/min/1.73 meters squared eGFR is derived from the reexpressed MDRD Study equation using the following parameters: serum creatinine, age, gender and race. The creatinine assay has been calibrated to be traceable to IDMS. An eGFR <60 mL/min/1.73m2 for >3 months is consistent with chronic kidney disease. Refer to KDOQI guidelines for clinical interpretation. In patients with unstable renal function, e.g. those with acute kidney injury, the eGFR may not accurately reflect actual GFR. Performed By: #### CBCDIF, PT, PTT, CMP, MG1, PHOS #### [facility] [address] [place], [place] [id number] MAGNESIUM Collected: 01/09/2018 Status: F Source: [place] 3:06 AM [facility] REPOSITORY TYPE CODE TESTS RESULT OUT OF REFERENCE UNITS RANGE LAB MG 1.7-2.3 mg/dL Magnesium 2.0 Result Comment: Results may be falsely increased due to interference by hemolysis. Suggest reorder as clinically indicated. Performed By: #### CBCDIF, PT, PTT, CMP, MG1, PHOS #### [facility] [address] [place], [place] [id number] PHOSPHORUS Collected: 01/09/2018 Status: F Source: [place] 3:06 AM [facility] REPOSITORY TYPE CODE TESTS RESULT OUT OF REFERENCE UNITS RANGE LAB PHOS 2.7-4.8 mg/dL Low Phosphorus 1.8 Result Comment: Results may be falsely increased due to interference by hemolysis. Suggest reorder as clinically indicated. Performed By: #### CBCDIF, PT, PTT, CMP, MG1, PHOS #### [facility] [employer] [facility] [address] [place], [place] [address] HISTORY PHYSICAL Observed: 01/09/2018 Status: COMPLETED Source: [place] 2:44 AM [facility] REPOSITORY HNO ID: [id number] Author: Ginny Griffiths Service: Critical Care Author Type: Physician Type: HANDP Filed: 01/09/2018 4:51 AM Note Text: MICU HANDP SERVICE DATE: 01/09/2018 Admission Date: 01/09/2018 Day #: 1 in the MICU. Subjective INTERVAL HPI: This is a 77 year old with PMHx: - paroxysmal A.fib. - MVR with [facility]. Alex. valve 2007. On warfarin at home, 2.5 daily. - HF, taking lasix 20 mg q48h. - SSS, s/p PM 2008 - HLD, using Lipitor 20 mg. - CKD 3 with hx of ATN and MAX 2008, b/l 1.5-1.8 - Anemia of Chronic disease, taking Iron for 4 years, 325 TID, taking B12 and folic acid. - DM, using 35 units at bedtime, and Humalog 15 + SS2 with meals. - Hypothyroid, using Synthroid 50 Qd - DJD, using [place]. - Moderate to severe pulmonary hypertension, 2017 - COPD, on 2 L oxygen at home PRN. Using Albuterol, Spiriva. - Depression (using Venlafaxine), Trazodone (to help sleep). Feels depressed, which is getting worse recently, feels that she might hurt herself. - hx of GIB, 2-3 years ago, w/u included endoscopy and capsule endoscopy at that time and there was no source of bleeding, In addition, she had recent scops as listed below: Capsule endoscopy 12/03/17: Non bleeding duodenal angiectasia. ?Abnormal fold in the distal/terminal ileum, exact nature of which cannot be determined. C-scope 11/26/17: Diverticulosis in the sigmoid colon and in the descending colon. A single non-bleeding colonic angiodysplastic lesion. Treated with argon plasma coagulation (APC). Clips were placed. GI radionuclide scan 03/15/17: there is normal perfusion of the tracer within the aora and common iliac arteries, homogeneous tracer uptake is seen within the liver which appears to be elarges as well as the spleen, there are no focal areas of extravasation to suggest a focal site of acute GIB at this time. EGD 10/30/16: normal Esophagus, stomach and duodenum. - She p/w weakness to OSH ([place] [facility]), as she was too weak to stand and noted to be hypotensive and tachycardic. Hg was 4.5, and INR was 19.5, given Vitamin K and 2 units of RBCs, 2 L fluid bolus, 80 mg IV protonix and started on a protonix gtt. She was then transferred to [place] [facility] ICU Hgb on presentation was 7.2. Patient received 2 more units of pRBC and FFP. Repeat Hgb was 9.7. She had one melanotic while there. She was transferred here for further w/u. - she had a recent fall (3 days ago) on the hip with L hip hematoma. She had black stool as she was taking iron supplement. She mentioned that some times has bright blood per rectum, no N/V or hematemesis, no abd pain. - she noted worsening SOB in the last 3 days. Her had PNA 10 days ago with cough/green sputum, she denies Fever but has some cough with white sputum. Of note, she was scheduled for a double balloon enteroscopy on February 06, 2018 She had low BP while in [place] ICU, she has a hx of low BP at OP. She denies dizziness, +ve for mild headache. Last 15 Encounter BP Readings: Date: BP: 01/08/2018 67/49 01/07/2018 64/41 12/25/2017 89/52 12/20/2017 78/51 12/04/2017 63/42 11/29/2017 68/39 11/15/2017 70/40 11/08/2017 76/46 10/31/2017 72/52 10/25/2017 59/35 10/18/2017 96/52 10/16/2017 109/45 10/11/2017 91/50 10/08/2017 62/39 09/27/2017 92/49 PAST MEDICAL HISTORY Diagnosis Date - Acute kidney failure with lesion of tubular necrosis (HCC) 08/19/[address] Tobias. - Adenomatous colon polyp 08/30/2012 - Anemia in chronic kidney disease(285.21) 08/31/2011 - Atrial fibrillation (HCC) 05/09/2012 - Calculus of ureter 03/24/2008 - Cardiac pacemaker in situ 08/17/2008 Sick sinus syndrome. - Cholelithiasis 05/26/2013 - Chronic kidney disease, stage III (moderate) 09/23/2009 - Chronic rhinitis - Congestive heart failure, unspecified 07/24/2008 Mitral insufficiency. - DDD (degenerative disc disease) - Diabetes mellitus (HCC) - Diverticulosis of colon (without mention of hemorrhage) 10/17/05 - Esophageal reflux 08/15/2005 - Fibromyalgia - Generalized osteoarthrosis, unspecified site - Heart valve replaced by other means 08/17/2008 #25, [address] Alex. Mitral valve. - Iron deficiency 08/17/2011 - Lumbago 08/15/2005 - Melena - Moderate to severe pulmonary hypertension 09/21/2016 - Myalgia and myositis, unspecified - Other and unspecified hyperlipidemia 08/15/2005 - PSVT (paroxysmal supraventricular tachycardia) (HCC) 04/10/2011 - Sleep apnea - Type II or unspecified type diabetes mellitus without mention of complication, not stated as uncontrolled 08/15/2005 - Unspecified asthma(493.90) 08/15/2005 - Unspecified cardiovascular disease heart cath 12/15 PAST SURGICAL HISTORY Procedure Laterality Date - CAPSULE ENDOSCOPY SMALL BOWEL 12/03/2017 - COLONOSCOP W/ OR W/O [facility] 10/17/05 - COLONOSCOP W/ OR W/O [facility] 08/25/2009 Colonoscopy - COLONOSCOP W/ OR W/O [facility] 10/17/2012 Colonoscopy - COLONOSCOPY 11/26/2017 - EGD 01/16/2005 - EGD W/O OR W/BRUSH/WASH 08/25/2009 EGD - EGD W/O OR W/BRUSH/WASH 04/05/15 EGD inpt [facility] - EGD W/O OR W/BRUSH/WASH 10/30/2016 EGD - INSER DIAMOND PACER XVENOUS ATRIAL Perm pacemaker insert - LEFT HEART CATH,PERCUTANEOUS Cardiac cath, L heart - LIGATE FALLOPIAN TUBE Tubal ligation - PAST SURGICAL HISTORY OF cervical conization - PAST SURGICAL HISTORY OF 01/03/05 Heart Cath - PAST SURGICAL HISTORY OF Carpal tunnel surgery b/l wrists - PERICARDIAL FINE NEEDLE ASPIRATION 2008 Pericardial Window - REPLACEMENT OF MITRAL VALVE Mitral valve replacement, St. Alex #25. FAMILY HISTORY Problem Relation Age of Onset - Coronary Artery Disease Father age 60s - Cancer Mother renal, Social History Substance Use Topics - Smoking status: Current Every Day Smoker Packs/day: 2.00 Years: 55.00 Types: Cigarettes - Smokeless tobacco: Never Used - Alcohol use No Prescriptions Prior to Admission: pantoprazole DR (PROTONIX) 40 mg tablet Take 1 tablet by mouth once daily. Disp: 90 tablet Rfl: 3 Taking folic acid 1 mg tablet Take 1 tablet by mouth once daily. Disp: 90 tablet Rfl: 1 Taking potassium chloride ER (K-DUR, KLOR-CON) 20 mEq tablet Take 1 tablet by mouth once daily. From outside pharmacy. Disp: Rfl: Taking warfarin (COUMADIN) 2.5 mg tablet Take 1 tablet by mouth. From outside pharmacy. Disp: Rfl: Taking atorvastatin (LIPITOR) 20 mg tablet Take 1 tablet by mouth once daily. Disp: 90 tablet Rfl: 0 Taking Lancets lancets Use as instructed 3 to 4 TIMES DAILY insulin dep E 11.9 Disp: 400 Each Rfl: 1 Taking venlafaxine (EFFEXOR) 37.5 mg tablet Take 1 tablet by mouth twice daily. Disp: 60 tablet Rfl: 5 Taking Blood Sugar Diagnostic, Drum (ACCU-CHEK COMPACT TEST) strp Test blood sugar(s) 4 times daily. Dx: Type 2 DM - Uncontrolled E11.65 Insulin: Yes Disp: 100 Strip Rfl: 4 Taking Blood-Glucose Meter, Drum-type (ACCU-CHEK COMPACT PLUS CARE) kit Accu-Check Compact Plus Meter Diagnosis: Type 2 DM - Uncontrolled E11.65 Disp: 1 Kit Rfl: 0 Taking levothyroxine (SYNTHROID) 50 mcg tablet TAKE ONE TABLET BY MOUTH EVERY DAY Disp: 90 tablet Rfl: 1 Taking HYDROcodone-acetaminophen (NORCO) 5-325 mg per tablet Take 1 tablet by mouth every 8 hours as needed for Pain. Disp: 45 tablet Rfl: 0 Taking Magnesium 250 mg tab Take 250 mg by mouth once daily. Disp: Rfl: Taking insulin glargine (LANTUS SOLOSTAR) 100 unit/mL (3 mL) inpn Inject 35 Units subcutaneously daily at bedtime. For blood glucose >150 Disp: 30 mL Rfl: 3 Taking Insulin Lispro, Human, (HUMALOG KWIKPEN) 100 unit/mL inpn Inject 15 Units subcutaneously twice daily with meals for blood glucose >140. Add 2 units for every 50 of glucose >150. Disp: 30 mL Rfl: 3 Taking insulin needles, DISPOSABLE, (PEN NEEDLE) 31 gauge x 5/16 ndle USE ONE NEEDLE FOR EACH DOSE Disp: 100 Each Rfl: 6 Taking traZODone (DESYREL) 150 mg tablet Take 1-2 tablets by mouth daily at bedtime. Disp: 180 tablet Rfl: 3 Taking furosemide (LASIX) 20 mg tablet 20 mg every other day. Daily Disp: Rfl: Taking cyanocobalamin (VITAMIN B-12) 1,000 mcg tab Take 1 tablet by mouth once daily. Disp: Rfl: 0 Taking ferrous sulfate 325 mg (65 mg iron) EC tablet Take 1 tablet by mouth three times daily with meals. Disp: Rfl: 0 Taking albuterol HFA (PROVENTIL HFA, VENTOLIN HFA) 90 mcg/actuation inhaler Inhale 2 Puffs as instructed every 6 hours as needed for Wheezing/Shortness of Breath. Disp: 1 Inhaler Rfl: 6 Taking tiotropium bromide (SPIRIVA RESPIMAT) 2.5 mcg/actuation mist Inhale 2 Puffs as instructed once daily. Inhale two puffs once daily. Disp: Rfl: 0 Taking docusate sodium (COLACE) 100 mg capsule Take 1 capsule by mouth twice daily as needed for Constipation. Disp: Rfl: 0 Taking Cholecalciferol, Vitamin D3, (VITAMIN D) 1,000 unit ORAL Tab Take 1,000 Units by mouth once daily. Disp: Rfl: Taking Current Inpatient Medications: Current hospital medications: NaCl 0.9% iv infusion 5-30 mL/hr INTRAVENOUS CONTINUOUS potassium chloride ER 40 mEq tab(s) (K-DUR, KLOR-CON) 40 mEq ORAL/FEEDING TUBE q 2 H PRN magnesium sulfate in water 4-6 g in sterile water 50 ml 4- 6 g INTRAVENOUS PRN sodium phosphate 45 mmol in NaCl 0.9% 250 mL 45 mmol INTRAVENOUS PRN 0.9% NaCl 3-5 mL 3-5 mL INTRAVENOUS q 12 H insulin regular human injection (short acting) (NovoLIN R,HumuLIN R) SUBCUTANEOUS q 6 H insulin regular 250 units in NaCl 0.9% 250 mL iv infusion - ICU NOMOGRAM 0.5-30 Units/hr INTRAVENOUS CONTINUOUS insulin regular human iv bolus 2-10 Units 2-10 Units INTRAVENOUS PRN dextrose 50% in water 25-50 mL syringe 12.5-25 g INTRAVENOUS PRN dextrose 40 % 15 g 15 g ORAL PRN glucagon 1 mg injection (GLUCAGEN) 1 mg SUBCUTANEOUS PRN acetaminophen 650 mg tab(s) (TYLENOL) 650 mg ORAL/FEEDING TUBE q 6 H PRN acetaminophen 650 mg suppository (TYLENOL) 650 mg RECTAL q 6 H PRN oxyCODONE IR 5-10 mg tab(s) (ROXICODONE) 5-10 mg ORAL/FEEDING TUBE q 4 H PRN HYDROmorphone 0.5-1 mg injection (DILAUDID) 0.5-1 mg INTRAVENOUS q 4 H PRN pantoprazole 40 mg injection (PROTONIX) 40 mg INTRAVENOUS BID AC (0600/1600) atorvastatin 20 mg tab(s) (LIPITOR) 20 mg ORAL DAILY folic acid 1 mg tab(s) 1 mg ORAL DAILY insulin glargine 20 Units pen (long acting) (LANTUS SOLOSTAR, BASAGLAR) 20 Units SUBCUTANEOUS AT BEDTIME venlafaxine 37.5 mg tab(s) (EFFEXOR) 37.5 mg ORAL BID levothyroxine 50 mcg tab(s) (SYNTHROID) 50 mcg ORAL DAILY tiotropium 18 mcg cap(s) and device for inhalation (SPIRIVA) 18 mcg INHALATION DAILY traZODone 150 mg tab(s) (DESYREL) 150 mg ORAL AT BEDTIME NaCl 0.9% iv infusion 75 mL/hr INTRAVENOUS CONTINUOUS ALLERGIES Allergen Reactions - Ambien [Zolpidem Ta* Unknown - Ativan [Lorazepam] Other: See Comments just didn't work - Mobic [Meloxicam] Unknown - Pamelor [Nortriptyl* Unknown Review of the Systems: (positives in bold, see HPI) Constitutional: fevers, chills, night sweats, fatigue, loss of appetite Head: headache, seizures Cardio: chest pain, palpitations, leg swelling, orthopnea, lightheadedness, syncope Pulmonary: dyspnea, cough, wheezing, hemoptysis GI: nausea, vomiting, diarrhea, constipation, abdominal pain, melena. 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, pain while sleeping Neuro: one-sided weakness, paresthesias Endocrine: unintentional weight loss, weight gain, polyuria, polydipsia Sleep: unrefreshing sleep, difficulty falling asleep, difficulty staying asleep, snoring Psych: emotional lability, depression, anxiety, panic attacks, suicidal ideation Objective VITAL SIGNS (last 24hrs min/max): Temp Av.6 ?C (97.8 ?F) Min: 36.6 ?C (97.8 ?F) Max: 36.6 ?C (97.8 ?F) Pulse Av Min: 110 Max: 110 No Data Recorded Cuff BP Min: 67/49 Max: 71/50 Pain Score: 0/10 NET FLUID BALANCE Intake/Output Summary (Last 24 hours) at 01/09/18 1767 Last data filed at 01/09/18 0400 Gross per 24 hour Intake 0 ml Output 0 ml Net 0 ml INFUSIONS NaCl 0.9% insulin regular NaCl 0.9% INDWELLING CATHETERS: Lines, Drains, and Airways Line Peripheral 01/09/18 0246 Admission to Hospital Short Right Arm 20 Gauge less than 1 day PHYSICAL EXAM: Physical exam performed HEENT: Oral Mucosa: Moist mucous membranes Feeding Tube: No Eyes: PERRLA Neck: Unremarkable; No adenopathy or JVD Cardiovascular: Regular rhythm Respiratory: Wheezes bilat Abdomen: Soft, Nontender and Positive bowel sounds Extremities: Edema- No Peripheral Pulses- Present all extremities Capillary Refill- less than 3 seconds Skin: Abnormalities- No Breakdown- No Neurologic: Awake, oriented, Follows commands and Moving all extremities DATA: Diagnostic tests reviewed for today's visit: Most recent labs and imaging results. LABS: CBC: Recent Labs 01/09/18 0306 01/08/18201401/08/18 1150 01/08/18 0640 01/08/18 0010 WBC 8.83 -- -- 7.76 -- HB 9.9* 8.9* 9.7* 6.1* 7.2* HCT 29.6* -- -- 18.6* -- PLT 120* -- -- 110* -- MCV 88.9 -- -- 89.0 -- RDWCV 17.5* -- -- -- -- NEUTP 88.6 -- -- -- -- ABSNEUT 7.82* -- -- -- -- LYMPHP 6.6 -- -- -- -- MONOP 4.3 -- -- -- -- EODINP 0.3 -- -- -- -- COAG: Recent Labs 01/09/18 0306 01/08/18 0640 01/08/18 0010 APTT 24.9 -- -- INR 1.1 1.33 3.45 BMP: Recent Labs 01/08/1840 GLUC 144* NA 143 K 4.3 CHLOR 118* CO2 22 ANION 7* BUN 40* CREAT 1.43* CHEM: Recent Labs 01/08/1840 CA 7.0* HEPATIC: No results for input(s): ALKPHOS, ALT, AST, TBILI, LIPASE in the last 168 hours. URINALYSIS:No results for input(s): PH, SPGR, UGLUC, UBILI, UKET, UHB, UPROT, UROBIL, UWBC, SSA in the last 168 hours. Invalid input(s): NITR CARDIAC: No results for input(s): CKTEST, CKMB, CKMBP, TROPT, PBNP in the last 168 hours. Assessment/Plan A/P: Summary: This is a 77 year old with PMHx of paroxysmal A.fib. 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 Who presented to OSH with weakness, found to have supra-theraputic INR (19.5) with Hg of 4.5, s/p Vit k, 4 RBCs and FFP. She was transferred here for further w/u for melena. Neuro/Psych: # Depression - using Venlafaxine and Trazodone to help sleeping. - Feels depressed, which is getting worse recently, feels that she might hurt herself. Plan: - Consider consult psychiatry in the morning. - Continue Venlafaxine and Trazodone. Cardiovascular: # paroxysmal A.fib. # MVR with St. Alex. valve 2007. On warfarin at home, 2.5 mg daily. # HF, taking lasix 20 mg q48h. # SSS, s/p PM 2008 # HLD, using Lipitor 20 mg - p/w weakness and melena, Hg was 4.5, and INR was 19.5, given Vitamin K and total of 4 units of RBCs, 2 FFP. Plan: - Hold warfarin in the setting of suprahepatic INR (19.5 at OSH, s/p Vit K) and active blood loss anemia. - Hold Lasix for now. - Continue Lipitor. - ECHO and CXR # Hypotension - BP usually runs low, in the 60/40s. - she is asymptomatic. Plan: - Hold off pressors for now. Respiratory: # COPD - on 2 L oxygen at home PRN. Using Albuterol, Spiriva. Plan: - Continue Albuterol, and Spiriva. Renal: - CKD 3 with hx of ATN and MAX 2008 - b/l cr 1.5-1.8 - Cr today 1.43 Plan: - Strict I/O, avoid nephrotoxic. FEN/GI: # GIB with melena. - she had a hx of GIB 2-3 years ago, w/u included endoscopy and capsule endoscopy at that time and there was no source of bleeding - she had recent w/u for melena. Capsule endoscopy 12/03/17: Non bleeding duodenal angiectasia. ?Abnormal fold in the distal/terminal ileum, exact nature of which cannot be determined. C-scope 11/26/17: Diverticulosis in the sigmoid colon and in the descending colon. A single non-bleeding colonic angiodysplastic lesion. Treated with argon plasma coagulation (APC). Clips were placed. GI radionuclide scan 03/15/17: there is normal perfusion of the tracer within the aora and common iliac arteries, homogeneous tracer uptake is seen within the liver which appears to be elarges as well as the spleen, there are no focal areas of extravasation to suggest a focal site of acute GIB at this time. EGD 10/30/16: normal Esophagus, stomach and duodenum. - She presented to OSH with weakness, found to have Hg of 4.7, and INR 19.5. With +ve FOBT - s/p 4 RBCs and 2 FFP and vit K. - she was transferred here for further w/u. Plan: - Protonix 40 IV BID. - Keep NPO for now. - consult GI in the morning for possible DBE. - check FOBT. - transfuse to keep Hg > 8, and INR < 1.3. ID: No acute issues. Endo: # DM2 - using 35 units at bedtime, and Humalog 15 + SS2 with meals. Plan: - Lantus 20 Qhs and SS2 # Hypothyroid - using Synthroid 50 Qd, will continue home meds. Hem/Onc: # Acute on Chronic Anemia/Acute blood loss anemia. - taking Iron for 4 years, 325 TID, taking B12 and folic acid. - Hg was 4.5 at OSH, s/p 4 units of RBCs. Hg up to 9.9. Plan: - see GI plan above - Type and screen - H/H q6h, and transfuse for Hg < 8. Skin: No acute issues. Prophylaxis: GI: PPI DVT: IPC Medication and Non-Pharmacologic VTE Prophylaxis/Anticoagulants 01/09/18 0245 vte pharmacologic prophylaxis contraindicated (ky,oh) 01/09/18 0245 pneumatic compression stockings (ky,oh) VTE Prophylaxis: Contraindicated Active bleeding. PATIENT CHECKLIST ? Are restraints necessary: No ? Deep vein thrombosis prophylaxis administered: No. Contraindicated. ? Stress ulcer prophylaxis: Yes ? Nasogastric tube: No ? Morrissey catheter necessary: No ? Is central line essential: No ? Plan discussed with assigned RN: Yes ? Family updated within last 24 hours: No SIGNATURE: Nando Baca MD PATIENT NAME: Emani Louis DATE: January 09, 2018 TIME: 2:44 AM PAGER/CONTACT #: [phone] [facility] STAFF PHYSICIAN NOTE OF PERSONAL INVOLVEMENT IN CARE I have reviewed the history and physical examination obtained and documented by the resident and I personally participated in the hudson components. I have discussed the case and management of the patient's care. The following comments revise or confirm relevant hudson components of the note. IMPRESSION: 77 year old F with history of atrial fibrillation, MVR on AC, SSS s/p PM 2008, pulmonary HTN, and frequent episodes of GIB s/p EGDs and capsule endoscopy without identification of source of blood loss presented with blood loss anemia. On presentation to the OSH, patient had Hb 4.5 and INR 19.5 s/p FFP and vitamin K. Problem List: Acute blood loss anemia GIB, melena MVR [facility] on AC Pulmonary HTN SSS s/p PM Depression/ suicidal Hypotension ?baseline Hypothyroidism Chronic R pleural effusion, scaring CKD, at baseline COPD PLAN: Awake, alert, oriented; depression, continue outpatient regiment Hypotension, ?baseline, check lactate to determine if hypoperfusion MVR [facility] valve, hold AC for now but will need heparin when bleeding stabilized COPD on 2L NC Acute blood loss anemia, melena, GI consult, EGD today, PPI bid Hypothyroidism, on synthroid, check TSH CKD, Cr at baseline NPO MICU ppx (unable to add DVT ppx given GIB) Patient/Family Updated: Patient, Emani Louis, updated regarding the goals of care, medical plan for the day, software sales consultant recommendations, medical disposition and current medical condition/prognosis as and if clinically indicated. All questions and concerns were answered and addressed at this juncture. This patient has a high probability of sudden, clinically significant deterioration, which requires the highest level of physician preparedness to intervene urgently. I managed/supervised life or organ supporting interventions that required frequent physician assessment. I devoted my full attention to the direct care of this patient for the amount of time indicated below. Time I spent with family or surrogate(s) is included only if the patient was incapable of providing the necessary information or participating in medical decision making. Time devoted to teaching and to any procedures I billed separately is not included. Critical Care Documentation: The patient has the following organ/system impairment(s): Acute blood loss Time spent providing critical care services: 30 minutes. SIGNATURE: Ginny Griffiths MD [facility] PAGER: [phone] DATE of SERVICE: January 09, 2018 TIME of SERVICE: 4:33 AM NURSING PROG Observed: 01/09/2018 Status: COMPLETED Source: [place] 2:41 AM [facility] [place] REPOSITORY HNO ID: [id number] Author: Kortney GómezRn) CINDY Wilcox Service: Nursing Author Type: Registered Nurse Type: Nursing Progress Note Filed: 01/09/2018 2:42 AM Note Text: Nursing Progress Note Patient Name: Emani Louis Patient Location: [place] [address] Transfer Note: Patient transferred into room/unit G62-1 in stable condition. Actions taken. 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 Only belonging is glasses. This note was completed by: Kortney Wilcox RN NURSING PROG Observed: 01/08/2018 Status: COMPLETED Source: [place] 11:57 PM [facility] OTHER [place] REPOSITORY HNO ID: [id number] Author: Kortney GómezRnAston Hameed RN Service: (none) Author Type: Registered Nurse Type: Nursing Progress Note Filed: 01/09/2018 12:20 AM Note Text: Nursing Progress Note Patient Name: Emani Louis Patient Location: [place] [address]* Daily Note: 2340- Call from [place] with [facility] Transport, patient given bed at [facility], going to [facility]. Verified with [facility] for patient to be transported via ground. 0- Notified patient of bed assignment at [facility], per patient does not want to notify daughter this late will wait until AM. 0015- Report given to Kortney CAMPOS at [facility] This note was completed by: Kortney Hameed RN GLUCOSE METER Collected: 01/08/2018 Status: F Source: [facility] 11:52 PM HEALTH SYSTEM REPOSITORY TYPE CODE TESTS RESULT OUT OF REFERENCE UNITS RANGE LAB GLUBL(LOINC 70-99 mg/dL ) High Glucose Meter 148 Performed By: #### GLMET #### [place] [address] HGB Collected: 01/08/2018 Status: F Source: [facility] 8:15 PM HEALTH SYSTEM REPOSITORY TYPE CODE TESTS RESULT OUT OF RANGE REFERENCE UNITS LAB HGBI(LOINC) 11.2-15.7 g/dL Low Hgb 8.9 Performed By: #### HGBI #### [place] [address] GLUCOSE METER Collected: 01/08/2018 Status: F Source: [facility] 5:31 PM HEALTH SYSTEM REPOSITORY TYPE CODE TESTS RESULT OUT OF REFERENCE UNITS RANGE LAB GLUBL(LOINC 70-99 mg/dL ) High Glucose Meter 148 Performed By: #### GLMET #### [place] [address] NUTRITION Observed: 01/08/2018 Status: COMPLETED Source: [place] 2:22 PM CLINIC OTHER CAMPUS REPOSITORY HNO ID: [id number] Author: Kathe Eugene RD Service: Nutrition Therapy Author Type: Registered Dietitian Type: Nutrition Filed: 01/08/2018 2:49 PM Note Text: NUTRITION THERAPY INITIAL ASSESSMENT SERVICE DATE: 01/08/2018 SERVICE TIME: 1045am RECOMMENDED MALNUTRITION DIAGNOSIS: MILD PROTEIN-CALORIE MALNUTRITION High risk for approaching moderate if inadequate intake continues In the context of Acute Illness or Injury based on: Insufficient Energy Intake: less than or equal to 50% for greater than or equal to 5 days NUTRITION CARE PLAN: Problem, Etiology and Signs/Symptoms: Suboptimal oral intake related to GIB as evidenced by pt report and profound weakness. Intervention: Follow for feeding plans with GI w/u Supplements when diet starts Coordination of Care: d/w RN Monitor and Evaluation: Goal: Meet >75% of estimated needs Monitor fluid/electrolyte balance Monitor labs, I/Os, vital signs, weight Discharge Nutrition Recommendations: To be determined Per HPI: ? A 77 year old female with past medical history of ?mitral valve replacement surgery on chronic Anticoagulation ( [facility] valve) 2007, Diabetes, PVD, Chronic Obstructive Pulmonary Disease on 2L O2, as needed Dyslipidemia and GI bleed who presents with weakness. On EMS arrival patient referred she was too weak to stand and was noted to be hypotensive and tachycardic. She was transferred from [facility] as she presented their complaining of dizziness and fatigue , the patient had recent history of falling down on her hip and she does have left hip hematoma , she states her stool is always black as she is taking iron , no changes in the Colour per her , no bright red , no vomiting or hematemesis , she denies any nausea or abdominal pain. She does complain of shortness of breath which is chronic for her , she is on 2 liters oxygen. Her shortness of breath was becoming progressively worsen in the last 3 days. Her had recent pneumonia before 10 days at that time she had cough with green sputum but she denies now having any cough of fever. She denies falling in her head ?Significant GI w/u in past without certain etiology. Present Diet Order: NPO Enteral Access: no Nutritional Intake Prior to Admission: <50% estimated energy need over the past 2 week(s) Only eating 1 meal daily d/t poor appetite and fatigue. Tried drinking at least 1 supplement daily. Has been feeling ill herself and stressed with her ill . Does not weigh herself, but has UBW 136# GI symptoms: anorexia and early satiety Abdominal Exam: bowel sounds are normal Is the patient having any pain that is interfering with oral/enteral intake? No ANTHROPOMETRICS Height: 157.5 cm (5' 2) Admission Weight: 65.6 kg (144 lb 10 oz) Current Weight: 65.6 kg (144 lb 10 oz) Body mass index is 26.45 kg/m?. normal Weight has trended upwards, but also with edema Last Wt 01/07/18 : 65.6 kg (144 lb 10 oz) 12/20/17 : 62.6 kg (138 lb) 12/04/17 : 62.1 kg (136 lb 12.8 oz) 11/29/17 : 63.5 kg (140 lb) 11/15/17 : 62.6 kg (138 lb) 11/08/17 : 62.6 kg (138 lb) 10/31/17 : 62.6 kg (138 lb) 10/25/17 : 62.8 kg (138 lb 8 oz) 10/16/17 : 63.5 kg (140 lb) 10/08/17 : 63 kg (139 lb) 09/27/17 : 63 kg (139 lb) 09/06/17 : 63.7 kg (140 lb 8 oz) 08/16/17 : 59.9 kg (132 lb) 07/26/17 : 62.1 kg (137 lb) [place] Body Weight: 50kg Resting Metabolic Rate: 1109 Estimated kilocalorie needs: 1122-0698 kilocalories determined by 25-30 kcal/kg Estimated protein needs: 60-75 grams determined by 1.2-1.5gms/kg [place] weight Estimated fluid needs: 1700 milliliters daily NUTRITION FOCUSED PHYSICAL EXAM: Subcutaneous Fat Loss Orbital Mild Triceps Mild Mid-axillary at the iliac crest Unable to determine at this time Muscle Loss Locations: Temporalis Mild Pectoralis Mild Deltoids Mild Interosseous No muscle loss Latissimus dorsi, trapezius Unable to determine at this time Quadriceps Mild Gastrocnemius Mild Potential micronutrient deficiency revealed in: Skin - pallor Edema: Yes Lower extremities Mild 1+ Ascites: No Assessment of Functional Status: Functional, yet not normal, able to be up and about with fairly normal activities for a duration of > 2 months Temperature Max in 24 hours: Temp (24hrs), Av.7 ?C (96.3 ?F), Min:35.2 ?C (95.4 ?F), Max:36.5 ?C (97.7 ?F) BP (!) 57/48 Pulse 93 Temp (!) 35.7 ?C (96.3 ?F) (Axillary) Resp 28 Ht 157.5 cm (5' 2) Wt 65.6 kg (144 lb 10 oz) SpO2 100% BMI 26.45 kg/m? Recent Labs 01/08/18 1150 05/29/18 0640 GLUC -- 144* BUN -- 40* CREAT -- 1.43* NA -- 143 K -- 4.3 CHLOR -- 118* CO2 -- 22 HB 9.7* 6.1* HCT -- 18.6* WBC -- 7.76 Potential Signs of Inflammation: no identifiable sources Current Facility-Administered Medications: potassium chloride 80-120 mEq oral liquid 80-120 mEq ORAL/FEEDING TUBE PRN magnesium sulfate in water 2 g in sterile water 50 ml 2 g INTRAVENOUS PRN sodium phosphate 45 mmol in NaCl 0.9% 250 mL 45 mmol INTRAVENOUS PRN calcium gluconate 4 g in NaCl 0.9% 250 mL 4 g INTRAVENOUS PRN pantoprazole 40 mg injection (PROTONIX) 40 mg INTRAVENOUS BID AC (0600/1600) NaCl 0.9% iv infusion 5-30 mL/hr INTRAVENOUS CONTINUOUS albuterol 2.5 mg /3 mL (0.083 %) 2.5 mg (PROVENTIL) 2.5 mg INHALATION q 4 H PRN dextrose 40 % 15 g 15 g ORAL PRN Or glucagon 1 mg injection (GLUCAGEN) 1 mg INTRAMUSCULAR PRN Or dextrose 50% in water 25 mL syringe 12.5 g INTRAVENOUS PRN insulin regular human injection (short acting) (NovoLIN R,HumuLIN R) SUBCUTANEOUS q 6 H ipratropium-albuterol 3 mL nebulizer solution (DUONEB) 3 mL INHALATION q 4 H Intake/Output 01/07/18 0700 - 01/08/18 0659 01/08/18 0700 - 01/09/18 0659 Intake (ml) 1687 302 Output (ml) 0 850 Net (ml) 1687 -548 MNT Billing Type: Initial Assess/15 min 4 units SIGNATURE: Kathe Eugene RD PATIENT NAME: Emani Louis DATE: January 08, 2018 TIME: 2:22 PM PAGER: [phone] CASE MGT INIT Observed: 01/08/2018 Status: COMPLETED Source: [place] 12:27 PM CLINIC OTHER CAMPUS REPOSITORY HNO ID: [id number] Author: Sue (Rn) CINDY Jason Service: Care Management Author Type: Registered Nurse Type: Care Mgt Initial Assessment Filed: 01/08/2018 12:33 PM Note Text: CARE MANAGEMENT: ASSESSMENT AND DISCHARGE PLAN SERVICE DATE: 01/08/2018 SERVICE TIME: 1227 PRIMARY CARE PHYSICIAN: Kodak Muñoz MD ADMISSION STATUS: Inpatient Needs Prior to Discharge: To Be Determined MEDICAL: 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 No Advance Directive: Current Advance Directive: None Turntable Engineer Assisted with AD Completion: No Health Literacy: 1. How often do you need to have someone help you when you read instructions, pamphlets, or other written material from your doctor or pharmacy? Rarely - 2 2. How confident are you filling out medical forms by yourself? Quite a bit - 2 If Patient scores > 3 on either question, the following interventions were put into place: Patient did not score > 3 FUNCTIONAL AND COGNITIVE/BEHAVIORAL PRIOR TO ADMISSION: Baseline Mental Status: Alert AND Oriented, Person, Place , Time and Situation Functional Status: Independent Does Patient Currently Receive Any Community Services or Home Care? None Equipment Prior to Admission: Cane - Straight Oxygen 2 prn liters per minute Wheelchair Has the Patient Been in a Halfway Facility in the Past 30 days? No SOCIAL: Living Arrangement: Home Lives With: Spouse Financial Resources: Retired Primary Contact: Extended Emergency Contact Information Primary Emergency Contact: Zia Louis [place] Mobile Relation: Spouse Secondary Emergency Contact: Latosha Olivia Mobile Relation: Daughter Supportive: Yes Other Important Patient Contacts: None Caregiver Assessment: Caregiver is ready, willing and able to meet the patient's needs as recommended by the inter-professional team? No Caregiver Needed Patient's transition needs and plan for meeting these needs: TBD Does the patient have an acute stroke diagnosis, or has the patient had a stroke during this admission? No Medication Adherence: I am convinced of the importance of my prescription medication: Agree completely - 0 I worry that my prescription medication will do more harm than good to me Disagree completely - 0 I feel financially burdened by my [id number] expenses for my prescription medication: Disagree completely - 0 Patient is categorized as low risk < 2 Are you interested in bedside delivery of your medications? No Food Concerns: In the Last Month, Have You had Trouble Getting Food? No trouble getting food During the Last Month, Have You Worried Whether Your Food Would Run Out Before You Had Enough Money to Buy More? No Is the Patient Psychosocially Complex? No ASSESSMENT AND PLAN: Medical Needs: TBD Psychosocial Needs: None FREEDOM OF CHOICE EXPLAINED: N/A POTENTIAL TRANSITION PLANS Home To Be Determined GI notes may need transfer to [facility]. Will continue to follow clinical progress for discharge planning. SIGNATURE: Sue Jason RN PATIENT NAME: Emani Louis DATE: January 08, 2018 TIME: 12:27 PM CONTACT #: [id number] Collected: 01/08/2018 Status: F Source: [facility] 11:50 AM HEALTH SYSTEM REPOSITORY TYPE CODE TESTS RESULT OUT OF RANGE REFERENCE UNITS LAB HGBI(LOINC) 11.2-15.7 g/dL Low Hgb 9.7 Performed By: #### HGBI #### [place] [address] GLUCOSE METER Collected: 01/08/2018 Status: F Source: [facility] 11:47 AM HEALTH SYSTEM REPOSITORY TYPE CODE TESTS RESULT OUT OF REFERENCE UNITS RANGE LAB GLUBL(LOINC 70-99 mg/dL ) High Glucose Meter 146 Performed By: #### GLMET #### [place] [address] CONSULT Observed: 01/08/2018 Status: COMPLETED Source: [place] 10:17 AM CLINIC OTHER CAMPUS REPOSITORY HNO ID: [id number] Author: Ankita Coffman) Colin Service: Gastroenterology Author Type: Nurse Specialist Type: Consults Filed: 01/08/2018 2:30 PM Note Text: INITIAL CONSULT GASTROENTEROLOGY SERVICE DATE: 01/08/2018 SERVICE TIME: 10:17 AM Consulting Service: Critical Care Opinion/advice regarding: Low hemoglobin with previous history of GI bleed Subjective HPI: This is a 77 year old female who presents with weakness and hypotension. She has a history of mitral valve replacement surgery on Coumadin. She indicated that she had multiple dark bowel movements at home. She has an extensive history of GI bleed and has had previous extensive GI workup. EGD done in October showed normal esophagus, stomach and duodenum. Bleeding scan done in March 2017 was negative for GI bleed. Colonoscopy done in November 2017 showed diverticulosis of the sigmoid and descending colon with a single non-bleeding colonic angiodysplastic lesion that was treated with clips and argon plasma coagulation. Capsule endoscopy in November 2017 showed a small non bleeding angiectasia in distal duodenum, single prominent indurated fold in the distal or terminal ileum (non-bleeding). She is scheduled for a double balloon enteroscopy on February 06, 2018 at [facility]. Hgb on presentation was 7.2. She had one melanotic stool since presentation. GI was consulted for evaluation of GI bleeding. PAST MEDICAL HISTORY Diagnosis Date - Acute kidney failure with lesion of tubular necrosis (HCC) 08/19/[address] Tobias. - Adenomatous colon polyp 08/30/2012 - Anemia in chronic kidney disease(285.21) 08/31/2011 - Atrial fibrillation (HCC) 05/09/2012 - Calculus of ureter 03/24/2008 - Cardiac pacemaker in situ 08/17/2008 Sick sinus syndrome. - Cholelithiasis 05/26/2013 - Chronic kidney disease, stage III (moderate) 09/23/2009 - Chronic rhinitis - Congestive heart failure, unspecified 07/24/2008 Mitral insufficiency. - DDD (degenerative disc disease) - Diabetes mellitus (HCC) - Diverticulosis of colon (without mention of hemorrhage) 10/17/05 - Esophageal reflux 08/15/2005 - Fibromyalgia - Generalized osteoarthrosis, unspecified site - Heart valve replaced by other means 08/17/2008 #25, [facility] Alex. Mitral valve. - Iron deficiency 08/17/2011 - Lumbago 08/15/2005 - Melena - Moderate to severe pulmonary hypertension 09/21/2016 - Myalgia and myositis, unspecified - Other and unspecified hyperlipidemia 08/15/2005 - PSVT (paroxysmal supraventricular tachycardia) ([facility]) 04/10/2011 - Sleep apnea - Type II or unspecified type diabetes mellitus without mention of complication, not stated as uncontrolled 08/15/2005 - Unspecified asthma(493.90) 08/15/2005 - Unspecified cardiovascular disease heart cath 12/15 PAST SURGICAL HISTORY Procedure Laterality Date - CAPSULE ENDOSCOPY SMALL BOWEL 12/03/2017 - COLONOSCOP W/ OR W/O BRSH SPEC 10/17/05 - COLONOSCOP W/ OR W/O BRSH SPEC 08/25/2009 Colonoscopy - COLONOSCOP W/ OR W/O BRSH SPEC 10/17/2012 Colonoscopy - COLONOSCOPY 11/26/2017 - EGD 01/16/2005 - EGD W/O OR W/BRUSH/WASH 08/25/2009 EGD - EGD W/O OR W/BRUSH/WASH 04/05/15 EGD inpt [facility] - EGD W/O OR W/BRUSH/WASH 10/30/2016 EGD - INSER DIAMOND PACER XVENOUS ATRIAL Perm pacemaker insert - LEFT HEART CATH,PERCUTANEOUS Cardiac cath, L heart - LIGATE FALLOPIAN TUBE Tubal ligation - PAST SURGICAL HISTORY OF cervical conization - PAST SURGICAL HISTORY OF 01/03/05 Heart Cath - PAST SURGICAL HISTORY OF Carpal tunnel surgery b/l wrists - PERICARDIAL FINE NEEDLE ASPIRATION 2008 Pericardial Window - REPLACEMENT OF MITRAL VALVE Mitral valve replacement, [facility] #25. FAMILY HISTORY Problem Relation Age of Onset - Coronary Artery Disease Father age 60s - Cancer Mother renal, Social History Substance Use Topics - Smoking status: Current Every Day Smoker Packs/day: 2.00 Years: 55.00 Types: Cigarettes - Smokeless tobacco: Never Used - Alcohol use No MEDICATIONS: Prior to Admission Medications: pantoprazole DR (PROTONIX) 40 mg tablet Take 1 tablet by mouth once daily. folic acid 1 mg tablet Take 1 tablet by mouth once daily. potassium chloride ER (K-DUR, KLOR-CON) 20 mEq tablet Take 1 tablet by mouth once daily. From outside pharmacy. warfarin (COUMADIN) 2.5 mg tablet Take 1 tablet by mouth. From outside pharmacy. atorvastatin (LIPITOR) 20 mg tablet Take 1 tablet by mouth once daily. Lancets lancets Use as instructed 3 to 4 TIMES DAILY insulin dep E 11.9 venlafaxine (EFFEXOR) 37.5 mg tablet Take 1 tablet by mouth twice daily. Blood Sugar Diagnostic, Drum (ACCU-CHEK COMPACT TEST) strp Test blood sugar(s) 4 times daily. Dx: Type 2 DM - Uncontrolled E11.65 Insulin: Yes Blood-Glucose Meter, Drum-type (ACCU-CHEK COMPACT PLUS CARE) kit Accu-Check Compact Plus Meter Diagnosis: Type 2 DM - Uncontrolled E11.65 levothyroxine (SYNTHROID) 50 mcg tablet TAKE ONE TABLET BY MOUTH EVERY DAY HYDROcodone-acetaminophen (NORCO) 5-325 mg per tablet Take 1 tablet by mouth every 8 hours as needed for Pain. Magnesium 250 mg tab Take 250 mg by mouth once daily. insulin glargine (LANTUS SOLOSTAR) 100 unit/mL (3 mL) inpn Inject 35 Units subcutaneously daily at bedtime. For blood glucose >150 Insulin Lispro, Human, (HUMALOG KWIKPEN) 100 unit/mL inpn Inject 15 Units subcutaneously twice daily with meals for blood glucose >140. Add 2 units for every 50 of glucose >150. insulin needles, DISPOSABLE, (PEN NEEDLE) 31 gauge x 5/16 ndle USE ONE NEEDLE FOR EACH DOSE traZODone (DESYREL) 150 mg tablet Take 1-2 tablets by mouth daily at bedtime. furosemide (LASIX) 20 mg tablet 20 mg every other day. Daily cyanocobalamin (VITAMIN B-12) 1,000 mcg tab Take 1 tablet by mouth once daily. ferrous sulfate 325 mg (65 mg iron) EC tablet Take 1 tablet by mouth three times daily with meals. albuterol HFA (PROVENTIL HFA, VENTOLIN HFA) 90 mcg/actuation inhaler Inhale 2 Puffs as instructed every 6 hours as needed for Wheezing/Shortness of Breath. tiotropium bromide (SPIRIVA RESPIMAT) 2.5 mcg/actuation mist Inhale 2 Puffs as instructed once daily. Inhale two puffs once daily. docusate sodium (COLACE) 100 mg capsule Take 1 capsule by mouth twice daily as needed for Constipation. Cholecalciferol, Vitamin D3, (VITAMIN D) 1,000 unit ORAL Tab Take 1,000 Units by mouth once daily. Current hospital medications: potassium chloride 80-120 mEq oral liquid 80-120 mEq ORAL/FEEDING TUBE PRN magnesium sulfate in water 2 g in sterile water 50 ml 2 g INTRAVENOUS PRN sodium phosphate 45 mmol in NaCl 0.9% 250 mL 45 mmol INTRAVENOUS PRN calcium gluconate 4 g in NaCl 0.9% 250 mL 4 g INTRAVENOUS PRN pantoprazole 40 mg injection (PROTONIX) 40 mg INTRAVENOUS BID AC (0600/1600) NaCl 0.9% iv infusion 150 mL/hr INTRAVENOUS CONTINUOUS ipratropium-albuterol 3 mL nebulizer solution (DUONEB) 3 mL INHALATION q 4 H PRN albuterol 2.5 mg /3 mL (0.083 %) 2.5 mg (PROVENTIL) 2.5 mg INHALATION q 4 H PRN dextrose 40 % 15 g 15 g ORAL PRN glucagon 1 mg injection (GLUCAGEN) 1 mg INTRAMUSCULAR PRN dextrose 50% in water 25 mL syringe 12.5 g INTRAVENOUS PRN insulin regular human injection (short acting) (NovoLIN R,HumuLIN R) SUBCUTANEOUS q 6 H ALLERGIES Allergen Reactions - Ambien [Zolpidem Ta* Unknown - Ativan [Lorazepam] Other: See Comments just didn't work - Mobic [Meloxicam] Unknown - Pamelor [Nortriptyl* Unknown GI SPECIFIC REVIEW OF SYSTEMS: Positive for abdominal pain, melena Negative for nausea, vomiting, dysphagia, heartburn, acid reflux, diarrhea, constipation, hematemesis, hematochezia Negative for decreased appetite, decreased oral intake Negative for change in weight No alteration in bowel habits OTHER ROS: Negative for fever, night sweats, sleep problems, mood or depression. PAIN ASSESSMENT: CURRENTLY HAVING PAIN; Generalized abdominal pain GENERAL: Positive for malaise . HEENT: Negative for frequent or significant headaches, No changes in hearing or vision, no nose bleeds or other nasal problems NECK: Negative for lumps, goiter, pain and significant neck swelling RESPIRATORY: Shortness of breath CARDIOVASCULAR: CHF, Cough, Shortness of breath : No history of dysuria, frequency or incontinence MUSCULOSKELETAL: Negative for joint pain or swelling, back pain or muscle pain SKIN: Negative for lesions, rash, and itching PSYCH: Negative for sleep disturbance, mood disorder and recent psychosocial stressors HEMATOLOGY/LYMPHOLOGY: Negative for prolonged bleeding, bruising easily or swollen nodes ENDOCRINE: Negative for cold or heat intolerance, polyuria, polydipsia and goiter NEURO: No history of headaches, syncope, paralysis, seizures or tremors Objective PHYSICAL EXAM: BP (!) 56/23 Pulse 99 Temp (!) 35.4 ?C (95.7 ?F) Resp 22 Ht 157.5 cm (5' 2) Wt 65.6 kg (144 lb 10 oz) SpO2 98% BMI 26.45 kg/m? GENERAL- AAO x 3, no distress. Skin pale and dry. HEENT: Moist mucus membranes. Tongue midline LUNGS: Clear to auscultation bilaterally CARDIAC: S1, S2 heard. Heart rate regular ABDOMEN: Soft, with mild tenderness throughout all quadrants without guarding or rigidity, normal bowel sounds EXTREMITIES: No pedal edema. Large hematoma on left hip/leg DATA: Diagnostic Tests Reviewed for Today's Visit: Most recent labs and imaging results. CBC, Coags, BMP, Mg, Phos Recent Labs 01/08/18 0640 01/08/18 0010 WBC 7.76 -- HB 6.1* 7.2* HCT 18.6* -- PLT 110* -- INR 1.33 3.45 NA 143 -- K 4.3 -- CHLOR 118* -- CO2 22 -- BUN 40* -- CREAT 1.43* -- GLUC 144* -- CA 7.0* -- CSF AND Dilantin Liver Function, Amylase, AND Lipase Cardiac Enzymes ABGs Impression/Recommendations Acute blood loss anemia - normocytic. Hgb was 7.1 on admission and down to 6.1 today. Had 2 units of FFP and 1 unit PRBCs today. ? If from GI bleed since patient has reported history of melena. Was on iron supplementation at home. Had recent fall with large hematoma on left leg. Had recent colonoscopy and capsule endoscopy with scheduled double balloon enteroscopy on 02/06/2018 at [facility]. - Monitor Hgb/Hct - transfuse as needed - Monitor BMs for bleeding - Continue Protonix. - Consider repeat EGD due to melena. If negative may need to transfer to [facility] for double balloon enteroscopy. Will discuss with Dr. French GI will continue to follow Thank you for the consult ADDENDUM: Discussed with Dr. French. If Hgb remains stable would recommend transfer to [facility] for double balloon enteroscopy SIGNATURE: Ankita Shaw APRN.HVAC INSTALLATION TECHNICIAN PATIENT NAME: Emani Louis DATE: January 08, 2018 TIME: 10:17 AM PAGER/CONTACT #: [phone] RBC PRODUCTS Collected: 01/08/2018 Status: F Source: [facility] 8:32 AM HEALTH SYSTEM REPOSITORY TYPE CODE TESTS RESULT OUT OF REFERENCE UNITS RANGE LAB UNIT1(LOINC ) Xmatch Unit 1 see below Result Comment: Compatible LAB UNIT2(LOINC) Xmatch Unit 2 see below Result Comment: Compatible Performed By: #### RBCPS #### [place] [address] PROGRESS Observed: 01/08/2018 Status: COMPLETED Source: [facility] 8:00 AM CLINIC OTHER CAMPUS REPOSITORY HNO ID: [id number] Author: Fransisco Alvarenga Service: Critical Care Author Type: Physician Type: Progress Notes Filed: 01/08/2018 4:19 PM Note Text: MICU - PROGRESS NOTE SERVICE DATE: 01/08/2018 SERVICE TIME: 8:00 AM Admission Date: 01/07/2018 AGE: [age] year old LOS: 0 days Subjective REASON FOR ICU ADMISSION: GI Bleeding Objective Patient is resting comfortably in bed. She states that symptoms have improved since admission. She was alert and oriented x3, and answering questions well. She reports a slightly productive cough with clear sputum. She denies any fevers. Today AM the patient had a dark black BM. Patient currently denies lightheadedness, dizziness or confusion. Patient denies chest pain, pressure or tightness. She does have some new orthopnea and prefers to sit upright since volume resuscitated and transfused. Reports that my blood pressure always runs low. Also reports that her atrial fibrillation comes and goes. Has a slight cough with off white phlegm. No hemoptysis. This has evolved since being volume resuscitated at [facility]. Denies abdominal pain, cramps, nausea or vomiting. No frankly bloody BMs here. Did have dark brown/black balled movement as morning. Denies flank pain or pressure. Denies myalgias or arthralgias. Denies rash. Denies focal motor or sensory symptoms. Current Outpatient Prescriptions on File Prior to Encounter: pantoprazole DR (PROTONIX) 40 mg tablet Take 1 tablet by mouth once daily. folic acid 1 mg tablet Take 1 tablet by mouth once daily. potassium chloride ER (K-DUR, KLOR-CON) 20 mEq tablet Take 1 tablet by mouth once daily. From outside pharmacy. warfarin (COUMADIN) 2.5 mg tablet Take 1 tablet by mouth. From outside pharmacy. atorvastatin (LIPITOR) 20 mg tablet Take 1 tablet by mouth once daily. Lancets lancets Use as instructed 3 to 4 TIMES DAILY insulin dep E 11.9 venlafaxine (EFFEXOR) 37.5 mg tablet Take 1 tablet by mouth twice daily. Blood Sugar Diagnostic, Drum (ACCU-CHEK COMPACT TEST) strp Test blood sugar(s) 4 times daily. Dx: Type 2 DM - Uncontrolled E11.65 Insulin: Yes Blood-Glucose Meter, Drum-type (ACCU-CHEK COMPACT PLUS CARE) kit Accu-Check Compact Plus Meter Diagnosis: Type 2 DM - Uncontrolled E11.65 levothyroxine (SYNTHROID) 50 mcg tablet TAKE ONE TABLET BY MOUTH EVERY DAY HYDROcodone-acetaminophen (NORCO) 5-325 mg per tablet Take 1 tablet by mouth every 8 hours as needed for Pain. Magnesium 250 mg tab Take 250 mg by mouth once daily. insulin glargine (LANTUS SOLOSTAR) 100 unit/mL (3 mL) inpn Inject 35 Units subcutaneously daily at bedtime. For blood glucose >150 Insulin Lispro, Human, (HUMALOG KWIKPEN) 100 unit/mL inpn Inject 15 Units subcutaneously twice daily with meals for blood glucose >140. Add 2 units for every 50 of glucose >150. insulin needles, DISPOSABLE, (PEN NEEDLE) 31 gauge x 5/16 ndle USE ONE NEEDLE FOR EACH DOSE traZODone (DESYREL) 150 mg tablet Take 1-2 tablets by mouth daily at bedtime. furosemide (LASIX) 20 mg tablet 20 mg every other day. Daily cyanocobalamin (VITAMIN B-12) 1,000 mcg tab Take 1 tablet by mouth once daily. ferrous sulfate 325 mg (65 mg iron) EC tablet Take 1 tablet by mouth three times daily with meals. albuterol HFA (PROVENTIL HFA, VENTOLIN HFA) 90 mcg/actuation inhaler Inhale 2 Puffs as instructed every 6 hours as needed for Wheezing/Shortness of Breath. tiotropium bromide (SPIRIVA RESPIMAT) 2.5 mcg/actuation mist Inhale 2 Puffs as instructed once daily. Inhale two puffs once daily. docusate sodium (COLACE) 100 mg capsule Take 1 capsule by mouth twice daily as needed for Constipation. Cholecalciferol, Vitamin D3, (VITAMIN D) 1,000 unit ORAL Tab Take 1,000 Units by mouth once daily. PROBLEMS: ACTIVE PROBLEM LIST Asthma Esophageal Reflux Mixed Hyperlipidemia Lumbago Osteoarthrosis, Unspecified Whether Generalized Or Localized, Involving Lower Leg Fibromyalgia Chronic Rhinitis Depressive Disorder Persistent Disorder of Initiating Or Maintaining Sleep Congestive Heart Failure (Hcc) Heart Valve Replaced By Other Means Cardiac Pacemaker in Situ Hypothyroidism Thrombocytopenia, Unspecified (Hcc) Copd (Chronic Obstructive Pulmonary Disease) (Hcc) Chronic Kidney Disease, Stage Iii (Moderate) Anemia in Chronic Renal Disease Atrial Fibrillation (Hcc) Adenomatous Colon Polyp Tobacco Use Disorder Dizziness and Giddiness Carotid Artery Disease Without Cerebral Infarction (Hcc) Other Specified Hypotension Transfusion History Sleep Apnea Moderate to Severe Pulmonary Hypertension H/O Mitral Valve Replacement Type 2 Diabetes Mellitus With Stage 3 Chronic Kidney Disease (Hcc) Vitamin D Deficiency Anticoagulant Long-Term Use Iron Deficiency Anemia Due to Chronic Blood Loss Gastrointestinal Hemorrhage Acute Blood Loss Anemia PAST MEDICAL HISTORY Diagnosis Date - Acute kidney failure with lesion of tubular necrosis (HCC) 08/19/[address] Tobias. - Adenomatous colon polyp 08/30/2012 - Anemia in chronic kidney disease(285.21) 08/31/2011 - Atrial fibrillation (HCC) 05/09/2012 - Calculus of ureter 03/24/2008 - Cardiac pacemaker in situ 08/17/2008 Sick sinus syndrome. - Cholelithiasis 05/26/2013 - Chronic kidney disease, stage III (moderate) 09/23/2009 - Chronic rhinitis - Congestive heart failure, unspecified 07/24/2008 Mitral insufficiency. - DDD (degenerative disc disease) - Diabetes mellitus (HCC) - Diverticulosis of colon (without mention of hemorrhage) 10/17/05 - Esophageal reflux 08/15/2005 - Fibromyalgia - Generalized osteoarthrosis, unspecified site - Heart valve replaced by other means 08/17/2008 #25, [facility] Alex. Mitral valve. - Iron deficiency 08/17/2011 - Lumbago 08/15/2005 - Melena - Moderate to severe pulmonary hypertension 09/21/2016 - Myalgia and myositis, unspecified - Other and unspecified hyperlipidemia 08/15/2005 - PSVT (paroxysmal supraventricular tachycardia) ([facility]) 04/10/2011 - Sleep apnea - Type II or unspecified type diabetes mellitus without mention of complication, not stated as uncontrolled 08/15/2005 - Unspecified asthma(493.90) 08/15/2005 - Unspecified cardiovascular disease heart cath 12/15 PAST SURGICAL HISTORY Procedure Laterality Date - CAPSULE ENDOSCOPY SMALL BOWEL 12/03/2017 - COLONOSCOP W/ OR W/O BRSH SPEC 10/17/05 - COLONOSCOP W/ OR W/O BRSH SPEC 08/25/2009 Colonoscopy - COLONOSCOP W/ OR W/O BRSH SPEC 10/17/2012 Colonoscopy - COLONOSCOPY 11/26/2017 - EGD 01/16/2005 - EGD W/O OR W/BRUSH/WASH 08/25/2009 EGD - EGD W/O OR W/BRUSH/WASH 04/05/15 EGD inpt [facility] - EGD W/O OR W/BRUSH/WASH 10/30/2016 EGD - INSER DIAMOND PACER XVENOUS ATRIAL Perm pacemaker insert - LEFT HEART CATH,PERCUTANEOUS Cardiac cath, L heart - LIGATE FALLOPIAN TUBE Tubal ligation - PAST SURGICAL HISTORY OF cervical conization - PAST SURGICAL HISTORY OF 01/03/05 Heart Cath - PAST SURGICAL HISTORY OF Carpal tunnel surgery b/l wrists - PERICARDIAL FINE NEEDLE ASPIRATION 2008 Pericardial Window - REPLACEMENT OF MITRAL VALVE Mitral valve replacement, [facility] #25. 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 Oxygen 3 LPM at HS and with exertion. Has cane, wheelchair as needed. No safety concerns. Camping trailer during summer. VITAL SIGNS (last 24hrs min/max): Temp Av.7 ?C (96.2 ?F) Min: 35.2 ?C (95.4 ?F) Max: 36.4 ?C (97.5 ?F) Pulse Av.4 Min: 112 Max: 116 No Data Recorded Cuff BP Min: 50/31 Max: 110/91 Pain Score: 0/10 Vital signs reviewed. BP 63/48 Pulse 114 Temp (Src) 97.5 (Axillary) Resp 24 Ht 5' 2 (1.58m) Wt 144 lb 10 oz (65.6kg) SpO2 99% BMI 26.44 kg/(m2). Temp (24hrs), Av.7 ?C (96.2 ?F), Min:35.2 ?C (95.4 ?F), Max:36.4 ?C (97.5 ?F) NET FLUID BALANCE Intake/Output Summary (Last 24 hours) at 01/08/18 0800 Last data filed at 01/08/18 0533 Gross per 24 hour Intake 1687 ml Output 0 ml Net 1687 ml MEDICATIONS Current Facility-Administered Medications: potassium chloride 80-120 mEq oral liquid 80-120 mEq ORAL/FEEDING TUBE PRN magnesium sulfate in water 2 g in sterile water 50 ml 2 g INTRAVENOUS PRN sodium phosphate 45 mmol in NaCl 0.9% 250 mL 45 mmol INTRAVENOUS PRN calcium gluconate 4 g in NaCl 0.9% 250 mL 4 g INTRAVENOUS PRN pantoprazole 40 mg injection (PROTONIX) 40 mg INTRAVENOUS BID AC (0600/1600) NaCl 0.9% iv infusion 150 mL/hr INTRAVENOUS CONTINUOUS ipratropium-albuterol 3 mL nebulizer solution (DUONEB) 3 mL INHALATION q 4 H PRN albuterol 2.5 mg /3 mL (0.083 %) 2.5 mg (PROVENTIL) 2.5 mg INHALATION q 4 H PRN dextrose 40 % 15 g 15 g ORAL PRN Or glucagon 1 mg injection (GLUCAGEN) 1 mg INTRAMUSCULAR PRN Or dextrose 50% in water 25 mL syringe 12.5 g INTRAVENOUS PRN insulin regular human injection (short acting) (NovoLIN R,HumuLIN R) SUBCUTANEOUS q 6 H Lines, Drains, and Airways Line Peripheral 01/07/180 Admission to Hospital Short Left Forearm 22 Gauge less than 1 day Peripheral 01/07/182299 Admission to Hospital Short Right Antecubital 20 Gauge less than 1 day PHYSICAL EXAM PERFORMED: General: The patient is alert and oriented x3. She appears age-appropriately developed, and well nourished. No distress. HEENT: Sinuses nontender. Nares without drainage. Pharynx shows Mallampati class I. Mucous membranes moist. Eyes: Pupils equal and reactive. Ocular movements intact. Sclera anicteric. Neck: Thin, supple and without accessory muscle use. Voice normal. Cardiovascular: Regular rhythm (but telemetry shows atrial fibrillation at 104 bpm), S2 normal, normal heart sounds and intact distal pulses. Exam reveals no gallop and no friction rub. Blood pressure sitting in bed 76/40 mmHg up from 66/47 mmHg (55) while lying flat. Patient is asymptomatic. Respiratory: Breath sounds normal. No stridor. No respiratory distress. No wheezing noted. No rales noted. Patient on 2 L supplemental oxygen with saturation 96%. No splinting, accessory muscle use or pursed lip breathing. Patient was lying flat on her left side in bed on presentation. Abdomen: Normal appearance, normal aorta and bowel sounds are normal. She exhibits no distension, no fluid wave and no ascites. There is no hepatosplenomegaly, splenomegaly or hepatomegaly. There is no rigidity, no rebound, no guarding, no CVA tenderness, no tenderness at McBurney's point and negative Chew's sign. Umbilical scar noted. Genitourinary: Patient voiding clear yellow urine. Extremities: Normal range of motion. She exhibits no edema, tenderness or deformity. Neurologic: She is alert and oriented to person, place, and time. She has normal reflexes. She displays normal reflexes. No cranial nerve deficit. She exhibits normal muscle tone. Coordination normal. Skin: Warm, dry but pale. Good capillary refill. No clubbing. No ecchymoses, caput [place] or telangiectasias. Small left hip ecchymoses. Respiratory/Nursing Documentation: O2 Therapy: Nasal Cannula (01/08/18 0000) Patient is on 2.5 L O2. HEMODYNAMIC DATA: Reviewed NUTRITION: NPO DATA: Diagnostic tests reviewed for today's visit, films/specimens were personally reviewed by me: LABS: Recent Labs 01/08/18 0640 WBC 7.76 RBC 2.09* HB 6.1* HCT 18.6* MCV 89.0 PLT 110* GLUC 144* BUN 40* CREAT 1.43* NA 143 K 4.3 CHLOR 118* CO2 22 CA 7.0* PTSEC 13.5* INR 1.33 CHEM: Recent Labs 01/08/18 0640 CA 7.0* Serum creatinine: 1.43 mg/dL (H) 01/08/18 0640 Estimated creatinine clearance: 30.2 mL/min (A)Hemoglobin done 01/08 at 12:10 AM: 7.2 MRSA culture screen in progress. Bedside echocardiogram: Performed by us today on rounds showed normal lung sliding bilaterally. B-lines present on the left (the dependent lung) and normal A-line pattern on the right lung. Heart showed cardiomegaly with adequate contractility. No pericardial effusion. IVC measured 2.9 cm without phasic respiratory movement. Hepatic vein was grossly dilated. No obvious pleural effusion. Colonoscopy: Performed 11/26/2017 showed a single medium size localized angiodysplastic lesion without bleeding at the ileocecal valve region . Coagulation for bleeding prevention was performed and felt to be successful. Two hemostatic clips were then placed to prevent postprocedure bleeding. The terminal ileum appeared normal . Diverticulosis of the sigmoid colon and descending colon was noted. Capsule endoscopy: Performed 12/03/2017 showed a nonbleeding duodenal angiectasia. There was an abnormal fold in the distal/terminal ileum the exact nature of which could not be determined. It was recommended for a CTE to see if there was a mass lesion and if negative for seed with retrograde balloon enteroscopy. Assessment/Plan IMPRESSION: The patient is a 77 year old female with a PMH of mitral valve replacement surgery on chronic anticoagulation ([facility] valve) 2007, Diabetes, PVD, Chronic Obstructive Pulmonary Disease on 2L O2, as needed Dyslipidemia and GI bleed who presents with weakness. She presents with anemia secondary to her GI bleed and anticoagulation therapy. Critical Care Documentation: The patient has the following organ/system impairment(s): Acute blood loss anemia secondary to GI bleed 1. Acute on chronic blood loss anemia Will stop IV fluids as bedside US showed non collapsible IVC Check serial hemoglobins Q8hr. Transfuse PRN if hemoglobin < 7. INR is 1.33 . No further FFP required. It seems unlikely that her hematoma is causing significant internal bleeding. continue IV pantoprazole BID GI consult Continue NPO 2. Mechanical MVR SSS s/p pacemaker We will hold Warfarin for now 3. Hypotension Patient states that her blood pressure currently is at baseline and it always stays this low Asymptomatic 4. CKD stage 3 Continue to monitor with BMP. 5. Diabetes Monitor blood glucose. Continue NPO 6. Dyslipidemia On statin at home 7. COPD No current COPD exacerbation Albuterol/ ipratropium as needed Oxygen as needed 9. DVT ppx: SCD SIGNATURE: Dilia Rodriguez MD PATIENT NAME: Emani Louis DATE: January 08, 2018 TIME: 8:00 AM [facility] STAFF PHYSICIAN NOTE OF PERSONAL INVOLVEMENT IN CARE I have reviewed the documentation by the resident / ROBERT and I personally participated in the hudson components. I have discussed the case and management of the patient's care. The following comments revise or confirm relevant hudson components of the note. IMPRESSION: Critical Care Documentation: The patient has the following organ/system impairment(s): # Subacute GI bleed while on Coumadin with severe anemia at presentation. Exact site uncertain but prior Epic notes suggest patient may have abnormal region at the ileocecal valve the requires balloon push enteroscopy under general anesthesia. This is apparently based on a capsule endoscopy finding from 12/03/2017. # History of colonic diverticuli # History of colonic AVM that was clipped # History of mitral prosthetic valve ([facility] 2007) for which she has been on Coumadin # History of paroxysmal atrial fibrillation # History of pacemaker for sick sinus syndrome # Cardiomegaly # History of hyperlipidemia # Chronic low blood pressures # Severe pulmonary hypertension with RVSP 70 mmHg and 3+ TR based on echo of October 2015 # COPD; nocturnal oxygen usage. # CKD # Adequately volume resuscitated based on current symptomatology and ultrasound assessment at the bedside # Diabetes mellitus # Anemia with normal MCV # Mild thrombocytopenia PLAN: # Gastroenterology consult # DC IV fluids; given bedside ultrasound findings # Follow INR now that INR has been reversed # PPI IV # Oxygen to maintain saturation over 92% # Follow symptoms and blood pressure; currently asymptomatic with her current blood pressure and she reports this is normal for her. # Serial hemoglobin every 6-8h for 24 hours # Aerosols as needed # Reassess Discussed with nursing staff, house staff, patient. This patient has a high probability of sudden, clinically significant deterioration, which requires the highest level of physician preparedness to intervene urgently. I managed/supervised life or organ supporting interventions that required frequent physician assessment. I devoted my full attention to the direct care of this patient for the amount of time indicated below. Time I spent with family or surrogate(s) is included only if the patient was incapable of providing the necessary information or participating in medical decision making. Time devoted to teaching is not included. Time spent providing critical care services: 36 minutes excluding procedures. SIGNATURE: Fransisco Alvarenga MD [facility] TIME of SERVICE: 3:44 PM DATE of SERVICE: 01/08/2018 HEMOGRAM/DIFF Collected: 01/08/2018 Status: F Source: [facility] 6:40 AM HEALTH SYSTEM REPOSITORY TYPE CODE TESTS RESULT OUT OF REFERENCE UNITS RANGE LAB WBC(LOINC) 3.98-10.04 thou/cmm WBC 7.76 LAB RBC(LOINC) 3.93-5.22 mil/cmm Low RBC 2.09 LAB HGB(LOINC) 11.2-15.7 g/dL Low Hgb alert 6.1 LAB HCT(LOINC) 34.1-44.9 % Low Hct alert 18.6 LAB MCV(LOINC) 79.4-94.8 fl MCV 89.0 LAB MCH(LOINC) 25.6-32.2 pg MCH 29.2 LAB MCHC(LOINC 31.6-34.8 % ) MCHC 32.8 LAB RDW(LOINC) 11.7-14.4 % RDW High 17.1 LAB RDWSD(LOIN 36.4-46.3 fl C) RDW SD High 51.7 LAB PLT(LOINC) 182-369 thou/cmm Low Platelet 110 LAB MPV(LOINC) 9.4-12.3 fl MPV 10.7 LAB SEG(LOINC) % Seg Neutrophil 85.7 LAB IGRE(LOINC % ) Immature Grans 1.50 LAB LYMPH(LOIN % C) Lymphocyte 7.7 LAB MNO(LOINC) % Monocyte 4.1 LAB EOSIN(LOIN % C) Eosinophil 0.9 LAB BASO(LOINC % ) Basophil 0.1 LAB SEGN(LOINC 1.56-6.13 thou/cmm ) Abs. High Neut (ANC) 6.65 LAB IGAB(LOINC 0.00-0.05 thou/cmm ) Abs High Immature Grans 0.12 LAB LYMN(LOINC 1.18-3.74 thou/cmm ) Low Abs. Lymph 0.60 LAB MONON(LOIN 0.27-0.70 thou/cmm C) Abs. Graves 0.32 LAB EOSN(LOINC 0.00-0.31 thou/cmm ) Abs. Eosin 0.07 LAB BASON(LOIN 0.01-0.08 thou/cmm C) Abs. Baso 0.01 Performed By: #### [id number] #### [place] [address] BASIC PANEL Collected: 01/08/2018 Status: F Source: [facility] 6:40 AM HEALTH SYSTEM REPOSITORY TYPE CODE TESTS RESULT OUT OF REFERENCE UNITS RANGE LAB NA(LOINC) 136-145 mEq/L Sodium Blood 143 LAB K(LOINC) 3.5-5.1 mEq/L Potassium Blood 4.3 LAB CL(LOINC) 98-107 mEq/L Chloride High Blood 118 LAB CO2(LOINC) 21-32 mEq/L CO2 Blood 22 LAB GLU(LOINC) 70-99 mg/dL Glucose High Blood 144 LAB BUN(LOINC) 7-18 mg/dL BUN High Blood 40 LAB CREA(LOINC 0.51-0.95 mg/dL ) High Creatinine Blood 1.43 LAB CA(LOINC) 8.5-10.1 mg/dL Low Calcium Blood 7.0 LAB ANGAP(LOIN 8-16 C) Low Anion Gap 7 Performed By: #### P8 #### [place] [address] MDRD GFR Collected: 01/08/2018 Status: F Source: [facility] 6:40 AM HEALTH SYSTEM REPOSITORY TYPE CODE TESTS RESULT OUT OF RANGE REFERENCE UNITS LAB GFRFN(LOINC >60mL/min/1.73m ) 2 eGFR 35.76 Result Comment: If the patient is , multiply the result by 1.210. Performed By: #### GFR #### [place] [address] PROTIME Collected: 01/08/2018 Status: F Source: [facility] 6:40 AM HEALTH SYSTEM REPOSITORY TYPE CODE TESTS RESULT OUT OF REFERENCE UNITS RANGE LAB PTI(LOINC) 9.3-11.9 sec Prothrombin High Time 13.5 LAB INR(LOINC) INR 1.33 Result Comment: Standard Therapy 2.0-3.0 High Dose 2.5-3.5 Performed By: #### PT #### [place] [address] GLUCOSE METER Collected: 01/08/2018 Status: F Source: [facility] 5:30 AM HEALTH SYSTEM REPOSITORY TYPE CODE TESTS RESULT OUT OF REFERENCE UNITS RANGE LAB GLUBL(LOINC 70-99 mg/dL ) High Glucose Meter 173 Performed By: #### GLMET #### [place] [address] RBC PRODUCTS Collected: 01/08/2018 Status: F Source: [facility] 5:21 AM HEALTH SYSTEM REPOSITORY TYPE CODE TESTS RESULT OUT OF REFERENCE UNITS RANGE LAB UNIT1(LOINC ) Xmatch Unit 1 see below Result Comment: Compatible Performed By: #### RBCPS #### [place] [address] TYPE AND SCREEN Collected: 01/08/2018 Status: F Source: [facility] 1:20 AM HEALTH SYSTEM REPOSITORY TYPE CODE TESTS RESULT OUT OF REFERENCE UNITS RANGE LAB ABO(LOINC) A ABO Group LAB IN HOME AIDE(LOINC ) RH Type Positive LAB ABSCR(LOIN C) Antibody NEGATIVE Screen LAB BBCMT(LOIN C) Comment See Below Result Comment: Screen &/or Xmatch expires in 3 days at 12 midnight. Redraw patient at that time. Performed By: #### T&S #### [place] [address] FROZEN PLASMA Collected: 01/08/2018 Status: F Source: [facility] (THAWED PLASMA) 1:02 AM HEALTH SYSTEM REPOSITORY TYPE CODE TESTS RESULT OUT OF RANGE REFERENCE UNITS LAB FFP1(LOINC) FFP unit Done 1 LAB FFP2(LOINC) FFP unit Done 2 Performed By: #### FFPXS #### [place] [address] GLUCOSE METER Collected: 01/08/2018 Status: F Source: [facility] 12:56 AM HEALTH SYSTEM REPOSITORY TYPE CODE TESTS RESULT OUT OF REFERENCE UNITS RANGE LAB GLUBL(LOINC 70-99 mg/dL ) High Glucose Meter 248 Performed By: #### GLMET #### [place] [address] Observed: 01/08/2018 Status: F Source: [facility] MRSA SCREEN 12:40 AM HEALTH SYSTEM REPOSITORY Test performed at [facility] No MRSA detected. Performed By: #### MRSA #### [place] [address] HGB Collected: 01/08/2018 Status: F Source: [facility] 12:10 AM HEALTH SYSTEM REPOSITORY TYPE CODE TESTS RESULT OUT OF RANGE REFERENCE UNITS LAB HGBI(LOINC) 11.2-15.7 g/dL Low Hgb 7.2 Performed By: #### HGBI #### [place] [address] PROTIME Collected: 01/08/2018 Status: F Source: [facility] 12:10 AM HEALTH SYSTEM REPOSITORY TYPE CODE TESTS RESULT OUT OF REFERENCE UNITS RANGE LAB PTI(LOINC) 9.3-11.9 sec Prothrombin High Time 32.8 LAB INR(LOINC) INR 3.45 Result Comment: Standard Therapy 2.0-3.0 High Dose 2.5-3.5 Performed By: #### PT #### [facility] [address] [place] [address] EMERGENCY DEPARTMENT Observed: 01/07/2018 Status: F Source: [facility] SUMMARY 11:27 PM [facility] REPOSITORY [facility] Medical Records Department [address] [place] [address] Emergency Department Summary 01/07/18 2156 MR#: [id number] Acct: [id number] Name: EMANI LOUIS Rep #: [id number] : 1940 77 From: Jessie Boothe MD PCP: Kodak Muñoz MD Status: DEP ER - ER Visit Summary Date of Service: 01/07/18 Chief Complaint: Weakness History of Present Illness: The patient is a 77 F to the emergency department with weakness and lightheadedness. Patient called squad because she was feeling very dizzy. The patient has a very complex medical history. She has a history of mitral valve replacement with mechanical valve and is fully anticoagulated on Coumadin. She has had recurrent GI bleed and chronic anemia. She does follow with Dr. Olivarez. She actually just had 2 units of blood on Sunday for symptomatic anemia. States over the past 2 days, her symptoms worsened. She states that she has constant dark stool which is not abnormal for her. However, when she changes position she feels very lightheaded. For squad, she was markedly hypotensive with blood pressures in the 40s. She was awake and she was alert. She denies any abdominal pain. Physical Examination: Vital signs reviewed General: Well-nourished, well-developed Head: Normocephalic, atraumatic Eyes: Pupils equal and reactive, extraocular muscles intact, pale conjunctiva Neck, supple, no lymphadenopathy Heart: Regular rate and rhythm with murmur Respiratory: No distress, clear bilaterally Abdomen: Soft, nontender, nondistended, no peritoneal signs Rectal: Guaiac positive melanotic stool, no gross blood Back: Nontender Extremities: Nontender, no edema, no cords Skin: Normal color no rash Neuro: Alert and oriented, no focal or lateralizing deficits Test Results: [] Emergency Department Course and Treatment: It was initially hypotensive on arrival with blood pressures in the 40 systolic. However, she was awake and alert. She was not complaining of any pain. 2 large-bore these were established. I did initially order the patient trauma blood. However, given her multiple transfusion she has multiple antibodies. She is already hypotensive, I did not want to cause an acute transfusion reaction and worsen her hypotension. She was fluid responsive. With 2 L of fluids, her blood pressure had increased into the 70s. Her mental status was improving. Patient was transfused 2 units of blood. Her hemoglobin was 4.5. We did have a difficult time obtaining INR which was pending. I did discuss the patient with [facility], who did accept the patient in transfer. She was started on a Protonix drip. The patient's INR did return at greater than 19. She was given IV vitamin K. I was going to order FFP, but the patient was already to be transferred. I did not want to delay transfer she should have definitive therapy. The patient had a normal lactate. She will be transferred in critical condition to [facility] for continued therapy of symptomatic GI bleed and supratherapeutic INR. 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 Treatment Plan: [] Disposition: Transfer Impression:. Acute GI bleed 2. Hemorrhagic shock 3. Supratherapeutic INR This note was generated with [employer] dictation software. It may contain incorrect words, spelling, and punctuation that were not noted in review of the chart prior to signing ED Disposition - Plan for ED Patient: Chief Complaint: Hypotension Referrals: Kodak Muñoz MD [Primary Care Provider] - What to do if you have Problems For any increased pain, shortness of breath, bleeding, nausea or vomiting, chest pain, or any unexpected problems, contact your Primary Care Provider. Call [facility] ([phone]) or report to the closest Emergency Room. Call 911 if necessary. 01/07/18 2174 <Electronically signed by Jessie Boothe MD> Date Jessie Boothe MD Cosigner Signature (If Indicated): Date CC: Kodak Muñoz MD HISTORY PHYSICAL Observed: 01/07/2018 Status: COMPLETED Source: [place] 10:52 PM CLINIC OTHER CAMPUS REPOSITORY HNO ID: [id number] Author: Dequan Hartley Service: Critical Care Author Type: Resident Type: HANDP Filed: 01/08/2018 12:42 AM Note Text: Attestation signed by Hema Gorman at 01/08/2018 12:54 AM [facility] STAFF PHYSICIAN NOTE OF PERSONAL INVOLVEMENT IN CARE I have reviewed the history and physical examination obtained and documented by the resident and I personally participated in the hudson components. I have discussed the case and management of the patient's care. The following comments revise or confirm relevant hudson components of the note. Interval history: Patient is resting comfortably in bed, but notes feeling weak/fatigued with dizziness previously. Exam: RRR Clear to auscultation without wheezing bilaterally anteriorly. Few bowel sounds, soft, slightly tender to palpation, nondistended. Mild pedal edema bilaterally. Poor turgor, but dry, intact skin. Data: Reviewed as detailed below. IMPRESSION: ACTIVE PROBLEM LIST Asthma Esophageal Reflux Mixed Hyperlipidemia Lumbago Osteoarthrosis, Unspecified Whether Generalized Or Localized, Involving Lower Leg Fibromyalgia Chronic Rhinitis Depressive Disorder Persistent Disorder of Initiating Or Maintaining Sleep Congestive Heart Failure (Hcc) Heart Valve Replaced By Other Means Cardiac Pacemaker in Situ Hypothyroidism Thrombocytopenia, Unspecified (Hcc) Copd (Chronic Obstructive Pulmonary Disease) (Hcc) Chronic Kidney Disease, Stage Iii (Moderate) Anemia in Chronic Renal Disease Atrial Fibrillation ([facility]) Adenomatous Colon Polyp Tobacco Use Disorder Dizziness and Giddiness Carotid Artery Disease Without Cerebral Infarction ([facility]) Other Specified Hypotension Transfusion History Sleep Apnea Moderate to Severe Pulmonary Hypertension H/O Mitral Valve Replacement 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 PPI. Check serial hemoglobins. Transfuse PRN. Keep NPO. Await repeat INR and correct with FFP accordingly. Consult GI. This patient has a high probability of sudden, clinically significant deterioration, which requires the highest level of physician preparedness to intervene urgently. I managed/supervised life or organ supporting interventions that required frequent physician assessment. I devoted my full attention to the direct care of this patient for the amount of time indicated below. Time I spent with family or surrogate(s) is included only if the patient was incapable of providing the necessary information or participating in medical decision making. Time devoted to teaching and to any procedures I billed separately is not included. Patient/Family Updated: Patient, Emani Louis, was updated regarding the goals of care, medical plan for the day, software sales consultant recommendations, medical disposition and current medical condition/prognosis as and if clinically indicated. All questions and concerns were answered and addressed at this juncture. She was notified on January 08, 2018 at 12:25 AM. The duration of the conversation was ten minutes. PROGNOSIS: Guarded Code status: Full Code. Discussed with Registered Nurse and MICU Residents. Critical Care Documentation: The patient has the following organ/system impairment(s): Acute blood loss anemia Time spent providing critical care services: 35 minutes. SIGNATURE: Hema Gorman MD [facility] PAGER:[phone] DATE of SERVICE: January 08, 2018 TIME of SERVICE: 12:47 AM HISTORY AND PHYSICAL EXAMINATION SERVICE DATE: 01/07/2018 SERVICE TIME: 11:19 PM PRIMARY CARE PHYSICIAN: Kodak Muñoz MD Subjective HPI A 77 year old female with past medical history of mitral valve replacement surgery on chronic Anticoagulation ( [facility] Alex valve) 2007, Diabetes, PVD, Chronic Obstructive Pulmonary Disease on 2L O2, as needed Dyslipidemia and GI bleed who presents with weakness. On EMS arrival patient referred she was too weak to stand and was noted to be hypotensive and tachycardic. She was transferred from [facility] as she presented their complaining of dizziness and fatigue , the patient had recent history of falling down on her hip and she does have left hip hematoma , she states her stool is always black as she is taking iron , no changes in the Colour per her , no bright red , no vomiting or hematemesis , she denies any nausea or abdominal pain. She does complain of shortness of breath which is chronic for her , she is on 2 liters oxygen. Her shortness of breath was becoming progressively worsen in the last 3 days. Her had recent pneumonia before 10 days at that time she had cough with green sputum but she denies now having any cough of fever. She denies falling in her head Patient has a history of GI bleed 2-3 years ago and workup included endoscopy and capsule endoscopy at that time apparently and they did not find a source. In addition, patient had endoscopy about 6 month ago at [facility] with no source of bleeding at that time but recently on November she did have an endoscopy in the main campus per her and it showed an ulcer which was clipped In the ED the patient was given 2L NS bolus, 2 units PRBCs, 80 mg IV protonix and started on a protonix gtt. FUNCTIONAL STATUS: Independent PAST MEDICAL HISTORY Diagnosis Date - Acute kidney failure with lesion of tubular necrosis (HCC) 08/19/[address] Tobias. - Adenomatous colon polyp 08/30/2012 - Anemia in chronic kidney disease(285.21) 08/31/2011 - Atrial fibrillation (HCC) 05/09/2012 - Calculus of ureter 03/24/2008 - Cardiac pacemaker in situ 08/17/2008 Sick sinus syndrome. - Cholelithiasis 05/26/2013 - Chronic kidney disease, stage III (moderate) 09/23/2009 - Chronic rhinitis - Congestive heart failure, unspecified 07/24/2008 Mitral insufficiency. - DDD (degenerative disc disease) - Diabetes mellitus (HCC) - Diverticulosis of colon (without mention of hemorrhage) 10/17/05 - Esophageal reflux 08/15/2005 - Fibromyalgia - Generalized osteoarthrosis, unspecified site - Heart valve replaced by other means 08/17/2008 #25, [address] Alex. Mitral valve. - Iron deficiency 08/17/2011 - Lumbago 08/15/2005 - Melena - Moderate to severe pulmonary hypertension 09/21/2016 - Myalgia and myositis, unspecified - Other and unspecified hyperlipidemia 08/15/2005 - PSVT (paroxysmal supraventricular tachycardia) ([facility]) 04/10/2011 - Sleep apnea - Type II or unspecified type diabetes mellitus without mention of complication, not stated as uncontrolled 08/15/2005 - Unspecified asthma(493.90) 08/15/2005 - Unspecified cardiovascular disease heart cath 12/15 PAST SURGICAL HISTORY Procedure Laterality Date - CAPSULE ENDOSCOPY SMALL BOWEL 12/03/2017 - COLONOSCOP W/ OR W/O [facility] SPEC 10/17/05 - COLONOSCOP W/ OR W/O BRS SPEC 08/25/2009 Colonoscopy - COLONOSCOP W/ OR W/O [facility] SPEC 10/17/2012 Colonoscopy - COLONOSCOPY 11/26/2017 - EGD 01/16/2005 - EGD W/O OR W/BRUSH/WASH 08/25/2009 EGD - EGD W/O OR W/BRUSH/WASH 04/05/15 EGD inpt [facility] - EGD W/O OR W/BRUSH/WASH 10/30/2016 EGD - INSER DIAMOND PACER XVENOUS ATRIAL Perm pacemaker insert - LEFT HEART CATH,PERCUTANEOUS Cardiac cath, L heart - LIGATE FALLOPIAN TUBE Tubal ligation - PAST SURGICAL HISTORY OF cervical conization - PAST SURGICAL HISTORY OF 01/03/05 Heart Cath - PAST SURGICAL HISTORY OF Carpal tunnel surgery b/l wrists - PERICARDIAL FINE NEEDLE ASPIRATION 2008 Pericardial Window - REPLACEMENT OF MITRAL VALVE Mitral valve replacement, St. Alex #25. FAMILY HISTORY Problem Relation Age of Onset - Coronary Artery Disease Father age 60s - Cancer Mother renal, Social History Substance Use Topics - Smoking status: Current Every Day Smoker Packs/day: 2.00 Years: 55.00 Types: Cigarettes - Smokeless tobacco: Never Used - Alcohol use No No prescriptions prior to admission. ALLERGIES Allergen Reactions - Ambien [Zolpidem Ta* Unknown - Ativan [Lorazepam] Other: See Comments just didn't work - Mobic [Meloxicam] Unknown - Pamelor [Nortriptyl* Unknown COMPLETE REVIEW OF SYSTEMS: Review of Systems Objective PHYSICAL EXAM: Vitals in ED at time of presentation: Temp 97.6F, HR 113, RR 20, BP 49/40, O2 sat 92% Physical Exam Constitutional: She is oriented to person, place, and time. She appears well-developed and well-nourished. No distress. HENT: Head: Normocephalic. Eyes: Pupils are equal, round, and reactive to light. Neck: Normal range of motion. No JVD present. No tracheal deviation present. No thyromegaly present. Cardiovascular: Regular rhythm, S2 normal, normal heart sounds and intact distal pulses. Exam reveals no gallop and no friction rub. Systolic murmur best heard at the apex Pulmonary/Chest: Breath sounds normal. No stridor. No respiratory distress. She has no wheezes. She has no rales. She exhibits no tenderness. Abdominal: Normal appearance, normal aorta and bowel sounds are normal. She exhibits no distension, no fluid wave and no ascites. There is no hepatosplenomegaly, splenomegaly or hepatomegaly. There is generalized tenderness. There is no rigidity, no rebound, no guarding, no CVA tenderness, no tenderness at McBurney's point and negative Chew's sign. Genitourinary: Rectal exam shows guaiac negative stool. No vaginal discharge found. Musculoskeletal: Normal range of motion. She exhibits no edema, tenderness or deformity. Legs: Lymphadenopathy: She has no cervical adenopathy. Neurological: She is alert and oriented to person, place, and time. She has normal reflexes. She displays normal reflexes. No cranial nerve deficit. She exhibits normal muscle tone. Coordination normal. Skin: She is not diaphoretic. Psychiatric: Her mood appears not anxious. There were no vitals taken for this visit. There is no height or weight on file to calculate BMI. DATA: Diagnostic tests reviewed for today's visit: Most recent labs and imaging results. Labs reviewed from outside ED WBC 10.5 Hgb 4.5 Hct 14.3 Plt count 175 Na 136 K 5.0 Cl 110 CO2 17 Anion Gap [address] abdomen 12/14/2017 IMPRESSION: Atherosclerosis. Sigmoid diverticulosis. Small parapneumonic fluid collection as well as right anterolateral pleural thickening at the right lung base. No evidence of an acute intra-abdominal process TTE on 2016 - Severe pulmonary hypertension (70) - ejection fraction 60 - Normal systolic function Assessment/Plan Acute on top of chronic blood loss anemia - DDX Gastroenterology bleed while she is on Warfarin likely LGIB , cannot exclude upper Gastroenterology bleed , Could be related to left thigh hematoma - we will Start her on Iv Pantoprazole every 12 hours - Keep her Npo and consult Gastroenterology - Chronic Normocytic anemia Multifactorial anemia due to chronic disease and Chronic Kidney Disease with Iron deficiency anemia - The patient denies any recent changes in her medication while she is taking her Warfarin - We Will check complete blood count and Basic Metabolic Panel - Hgb q 6 hours - cross and match - hemoglobin goal > 7 - Stat INR . According to the inr we will decide the need for FFP as the patient got vitamin k in [facility] - she got 2 liters boluses of fluids , we will give another liter and start her on maintenance 150 ml/hour - We will consider Left thigh imaging , less likely retroperitoneal for now ,no worsening in her back pain and no bruising on her back Hypotension - secondary to Acute blood loss anemia Mechanical MVR SSS s/p pacemaker - We will hold Warfarin for now and bridge with heparin when it is needed Chronic Kidney Disease stage 3 - Will Monitor with Basic Metabolic Panel Diabetes - Npo - SSI Dyslipidemia - at home on statin Chronic Obstructive Pulmonary Disease - Not in exacerbation - Albuterol/Ipratropium and alubetrol as needed - Oxygen as needed Deep Vein Thrombosis - Sequential Compression Devices for now SIGNATURE: Dequan Hartley MD PATIENT NAME: Emani Louis DATE: January 07, 2018 TIME: 10:52 PM PAGER/CONTACT #: [phone] LACTIC ACID Collected: 01/07/2018 Status: F Source: [place] 8:31 PM [facility] REPOSITORY Order Comment: Yes/No query for Sepsis Lactate Rule Y TYPE CODE TESTS RESULT OUT OF RANGE REFERENCE UNITS LAB L503.6005 0.4-2.0 mmol/L Normal LACTIC ACID 1.6 Performed By: #### L503.6005 #### [facility] [place], [place], [id number] PROTHROMBIN TIME W/INR Collected: 01/07/2018 Status: F Source: [place] 8:31 PM [facility] REPOSITORY TYPE CODE TESTS RESULT OUT OF REFERENCE UNITS RANGE LAB L300.4150 11.7-14.9 SECONDS High PROTIME > 120.0 LAB L300.4200 High alert INR > 19.5 Result Comment: CRITICAL VALUE VERIFIED. CALLED TO Piyush EDGE 01/07/18 2121 Mary S Vulizeth. RESULTS READ BACK BY SAME. Performed By: #### L300.3900 #### [facility] [address] [place], [address] CBC W/DIFF, AUTOMATED Collected: 01/07/2018 Status: C Source: [place] 6:05 PM [facility] REPOSITORY TYPE CODE TESTS RESULT OUT OF RANGE REFERENCE UNITS LAB L100.1000 4.4-11.0 K/mm3 Normal WBC 10.5 LAB L100.1200 4.2-5.4 M/mm3 Low RBC 1.59 LAB L100.1300 12.0-15.0 g/dl Low alert HGB 4.5 Result Comment: CRITICAL VALUE VERIFIED. CALLED TO MK 01/07/18 1830 Marely Hank Rich. RESULTS READ BACK BY SAME . LAB L100.1400 37-47 % Low HCT 14.3 LAB L100.1500 81-99 fL Normal MCV 89.9 LAB L100.1600 27.0-32.0 pg Normal MCH 28.3 LAB L100.1700 32-36 g/gl Low MCHC 31.5 LAB L100.1810 11.6-14.6 % High RDW CV 18.8 LAB L100.1820 35.1-43.9 fl High RDW SD 57.1 LAB L100.1900 150-450 K/mm3 Normal PLT 175 LAB L100.2000 6.2-12.0 fl Normal MPV 10.0 LAB L100.2100 47-70 % High NEUT% 85.4 LAB L100.2200 19-41 % Low LY% 9.4 LAB L100.2300 0-10 % Normal MONO% 3.8 LAB L100.2400 0-5 % Normal EO% 0.5 LAB L100.2500 0-1 % Normal BASO% 0.3 LAB L100.2550 0.0-0.9 % Normal IM GRAN % 0.600 Result Comment: IG% - Immature Granulocytes (promyelocytes, myelocytes and metamyelocytes) > 1% indicates that a LEFT SHIFT is Present. LAB L100.2620 2.0-7.7 X10 3/uL High Absolute Neut 8.9 LAB L100.2720 0.83-4.51 X10 3/ul Normal Absolute Lymph 0.98 LAB L100.4500 Normal SMEAR COMMENT SCANNED Result Comment: ANEMIA NOTED LAB L100.7500 POLYCHROMASIA 1+ Normal LAB L100.7600 HYPOCHROMASIA RARE Normal LAB L100.8600 TARGET CELLS RARE Normal LAB L100.9900 PATH REV Normal Reviewed Result Comment: Severe Normocytic anemia. Clinical correlation necessary. Tesfaye Harrison M.D. 01/08/18 AMENDED REPORT 01/08/18 1414 PATH REV previously reported as: December eliana Performed By: #### L100.0100 #### [facility] [address] [place], [place], [address] COMPREHENSIVE METABOLIC Collected: 01/07/2018 Status: F Source: [facility] 6:05 PM [facility] REPOSITORY TYPE CODE TESTS RESULT OUT OF RANGE REFERENCE UNITS LAB L501.0100 74-106 mg/dL High GLU 253 Result Comment: Glucose result greater than or equal to 200 mg/dL suggests DIABETES MELLITUS per A.D.A. criteria. Please note revised GLUCOSE reference range effective 2017. LAB L501.1000 7-18 mg/dL High BUN 52 LAB L501.1100 0.55-1.02 mg/dL High CREAT,SERUM 1.69 Result Comment: The validity of the calculated GFR AND GFRAA in patients over 70 years has not been determined. Clinical correlation is essential. LAB L501.1110 >60 mL/min Low EST GFR 31 Result Comment: Non- GFR Calc LAB L501.1115 >60 mL/min Low EST GFR - AA 38 Result Comment: GFR Calc LAB L501.1255 ml/min Normal Estimated CRCL 22.75 LAB L501.1300 10-20 RATIO High BUN/CRE 30.8 LAB L501.1500 6.4-8. g/dL Low 2 T PROT 5.2 LAB L501.1800 3.2-5. g/dL Low 0 ALB 2.3 LAB L501.1950 2.2-4. g/dL Normal 2 GLOB 2.9 LAB L501.2000 0.9-2. RATIO Low 4 A/G 0.8 LAB L501.2200 8.5-10 mg/dL Low .1 CA 7.5 LAB L501.4100 15-37 U/L Low AST 6 LAB L501.4305 45-117 U/L Normal ALK P 64 LAB L501.4405 13-56 U/L Low ALT 8 LAB L501.4600 0.20-1 mg/dL Normal .00 T BILI 0.40 LAB L501.5300 136-14 mmol/L Normal 5 NA 136 LAB L501.5600 3.5-5. mmol/L Normal 1 K 5.0 LAB L501.5900 98-107 mmol/L High CL 110 LAB L501.6100 21.0-3 mmol/L Low 2.0 CO2 17.0 LAB L501.6200 5-15 Normal GAP 9 Performed By: #### L500.4050, L501.4010 #### [facility] [address] [place], [place], [id number] TROPONIN-I Collected: 01/07/2018 Status: F Source: [place] 6:05 [facility] REPOSITORY TYPE CODE TESTS RESULT OUT OF RANGE REFERENCE UNITS LAB L501.4010 <0.045 ng/mL Normal < 0.015 TROPONIN-I Result Comment: TROPONIN-I EXPECTED VALUES <0.045 Negative 0.045 - 0.590 Consistent with Cardiac Damage > OR = 0.600 Critical Value Not every elevated troponin is indicative of MT. These values should be used with clinical judgement in examining the patient's clinical picture for diagnosis. To establish a diagnosis of MT versus myocardial injury, there must be a demonstrated rise and/or fall in the troponin values, in addition to ischemic symptoms, EKG changes, new regional wall motion abnormality, and/or angiographical evidence. PLEASE NOTE: REFERENCE RANGES EDITED 17 Performed By: #### L500.4050, L501.4010 #### [facility] [address] [place], [place], [id number] TYPE AND SCREEN Collected: 01/07/2018 Status: F Source: [place] 6:05 [facility] REPOSITORY Order Comment: CMV NEG? N Number of units to transfuse: 2 Is there a >20% drop in pt's BP? Y Reason for Ordering Blood: Acute Are the blood/blood products to be transfused? Y Is the patient having/had surgery? N Give When? When Ready Irradiated? N Leukodepleted? Y Reason for Type AND Screen/Red Cells: HEMORRHAGE, GI BLEED TYPE CODE TESTS RESULT OUT OF RANGE REFERENCE UNITS LAB B10.0800 A Normal BLOOD TYPE GEL POSITIVE LAB B100.4000 Normal Antibody NEGATIVE Screen Performed By: #### B101.7450 #### [facility] [address] [place], [address] Collected: 01/07/2018 Status: F Source: [place] 6:05 PM [facility] REPOSITORY TYPE CODE TESTS RESULT OUT OF REFERENCE UNITS RANGE LAB U100.0000 [id number] TRANSFUSED PRODUCT: T AND S with Crossmatch, Red Cells COUNT: 2 Performed By: #### U100.0000 #### [facility] - refer to report for specific site [place] ABS GR + CBC Collected: 01/03/2018 Status: F Source: [place] 9:10 AM [facility] REPOSITORY TYPE CODE TESTS RESULT OUT OF REFERENCE UNITS RANGE LAB WWBC 3.70-11.00 k/uL [place] WBC 6.82 LAB WRBC 3.90-5.20 m/uL Low [place] RBC 2.96 LAB WHGB 11.5-15.5 g/dL Low [place] Hemoglobin 8.7 LAB WHCT 36.0-46.0 % Low [place] Hematocrit 28.3 LAB WMCV 80.0-100.0 fL [place] MCV 95.6 LAB WMCH 26.0-34.0 pg [place] MCH 29.4 LAB WMCHC 30.5-36.0 g/dL [place] MCHC 30.7 LAB WRDW 11.5-15.0 % [place] High RDW 16.7 LAB WPLT 150-400 k/uL [place] Platelet Cnt 167 LAB WMPV 9.0-12.7 fL [place] MPV 10.6 Result Comment: Test performed at: [facility] [place], [address] [place] [address]. LAB ABGRAN 1.45-7.50 k/uL Absol Gran 5.93 Count TYPE AND SCREEN Collected: 01/03/2018 Status: F Source: [place] 8:50 AM [facility] REPOSITORY Order Comment: PRETRANSFUSION HGB = 8.7 HCT = 28.3 PERFORMED AT [facility] CMV NEG?* N Give When? 01/04/18 08:30 Irradiated? N Leukodepleted? Y Reason for Type AND Screen/Red Cells: ANEMIA TYPE CODE TESTS RESULT OUT OF RANGE REFERENCE UNITS LAB B10.0800 A Normal BLOOD TYPE GEL POSITIVE LAB B100.4000 Normal Antibody NEGATIVE Screen Performed By: #### B101.7450 #### [facility] [address] [place], [address] Collected: 01/03/2018 Status: F Source: [place] 8:50 AM [facility] REPOSITORY TYPE CODE TESTS RESULT OUT OF REFERENCE UNITS RANGE LAB U100.0000 [id number] TRANSFUSED PRODUCT: T AND S with Crossmatch, Red Cells COUNT: 2 Performed By: #### U100.0000 #### [facility] - refer to report for specific site [place] ABS GR + CBC Collected: 12/25/2017 Status: F Source: [place] 10:40 AM [facility] REPOSITORY TYPE CODE TESTS RESULT OUT OF REFERENCE UNITS RANGE LAB WWBC 3.70-11.00 k/uL [place] WBC 6.77 LAB WRBC 3.90-5.20 m/uL Low [place] RBC 3.37 LAB WHGB 11.5-15.5 g/dL Low [place] Hemoglobin 10.2 LAB WHCT 36.0-46.0 % Low [place] Hematocrit 32.7 LAB WMCV 80.0-100.0 fL [place] MCV 97.0 LAB WMCH 26.0-34.0 pg [place] MCH 30.3 LAB WMCHC 30.5-36.0 g/dL [place] MCHC 31.2 LAB WRDW 11.5-15.0 % [place] High RDW 17.6 LAB WPLT 150-400 k/uL Low [place] Platelet Cnt 118 LAB WMPV 9.0-12.7 fL [place] MPV 11.3 Result Comment: Test performed at: [facility] [place], [address] [place] [address]. LAB ABGRAN 1.45-7.50 k/uL Absol Gran 5.88 Count PROTHROMBIN TIME W/INR Collected: 12/20/2017 Status: F Source: [place] 10:20 AM [facility] REPOSITORY TYPE CODE TESTS RESULT OUT OF RANGE REFERENCE UNITS LAB L300.4150 11.7-14.9 SECONDS High PROTIME 30.0 LAB L300.4200 Normal INR 2.8 Performed By: #### L300.3900 #### [facility] [address] [place], [address] PROGRESS Observed: 12/20/2017 Status: COMPLETED Source: [place] 9:40 AM [facility] [place] REPOSITORY HNO ID: [id number] Author: Yara Garay Service: (none) Author Type: Physician Type: Progress Notes Filed: 12/21/2017 7:29 AM Note Text: PATIENT NAME: Emani Louis. CLINIC NO: [id number]. ATTENDING PHYSICIAN: Yara Garay MD. DATE OF SERVICE:12/20/2016. ? DIAGNOSIS: Anemia of chronic disease secondary to renal failure and PAN cirrhosis AND?diabetes. ? chronic GI bleeding secondary to Coumadin therapy. ? ? HPI: ?Mrs. Louis is a 76-year-old white female with anemia chronic disease on iron and Aranesp injection for treatment of her anemia?secondary to chronic renal failure. 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 She is on Coumadin for mechanical prosthetic mitral valve. She also has chronic asymptomatic hypotension, congestive heart failure and respiratory failure on chronic oxygen. ?? Patient has a previous GI evaluation which showed no source of bleeding. Her last Endoscopy Study was several years ago with Dr. Hu. ?? Interim history:?Mrs. Louis was transfused multiple times since her last visit,?almost every 2- 3 weeks. Patient is?on Coumadin because of mechanical prosthetic mitral valve replacement.?Her PT/ INR is kept about 3 - 4. Patient has fatigue?because of anemia. She has been taking iron 3 times daily. She also has?chronically hypotensive,?she has no?dizziness and lightheadedness. She it is also getting on Aranesp injection in between blood transfusion for her anemia, in addition to IV iron. Mrs. Louis is scheduled for evaluation with Dr. Hu next month. She has no jaundice, ascites or encephalopathy. She is not taking aspirin or NSAIDs. ? All medications AND allergies updated and reviewed by me. ? REVIEW OF SYSTEMS: ? CONSTITUTIONAL: ?No fevers, chills, nightsweats, unintended weight loss HEENT: ?Denies frequent or severe heaches, nasal congestion/sinus symptoms, problematic allergy problems. EYES: ?No diplopia or blurry vision. CARDIOVASCULAR: ?No chest pain, + dyspnea?with exertion, palpitations, orthopnea, PND, ankle edema. PULM: ?No dyspnea, unexplained cough. GI: ?No dysphagia/odynophagia, problematic reflux, constipation, diarrhea, changes in stool habits, hematochezia, melena. : ?No new urinary complaints, including dysuria, gross hematuria or pyuria. NEURO: ?No new balance problems, peripheral weakness/paresthesias or numbness of concern. MUSC-SKEL: ?No new joint pain, swelling, or erythema. PSY: ?No concerns regarding depression, anxiety or panic. INTEGUMENTARY: ?No new skin changes (rash, new or changing mole, new growth) ? PHYSICAL EXAMINATION: 76-year-old female appeared to be no acute distressed BP 78/51 Pulse 110 Temp (Src) 97.2 (Temporal Artery) Wt 138 lb (62.6kg) HEENT: Head is normocephalic, atraumatic. Sclerae white, conjunctivae pink. PEERL. EOMs are intact. Oropharynx is benign.?Complexion pale LYMPHATICS: There is no palpable adenopathy in the neck, supraclavicular region, axillae, or groin. LUNGS: Lungs are clear to percussion and auscultation. HEART: Heart is regular?with a 2/6 systolic?murmurs, + prosthetic mitral clicks no gallops, or rubs. ABDOMEN: Soft and nontender without organomegaly. No masses can be palpated. EXTREMITIES: Are without edema. NEUROLOGIC: Exam is physiologic ? LABORATORY DATA: Component Latest Ref Rng AND Units 12/17/2017 WBC, [place] 3.70 - 11.00 k/uL 4.26 RBC, [place] 3.90 - 5.20 m/uL 3.12 (L) Hemoglobin, [place] 11.5 - 15.5 g/dL 9.3 (L) Hematocrit, [place] 36.0 - 46.0 % 30.3 (L) MCV, [place] 80.0 - 100.0 fL 97.1 MCH, [place] 26.0 - 34.0 pg 29.8 MCHC, [place] 30.5 - 36.0 g/dL 30.7 RDW, [place] 11.5 - 15.0 % 18.2 (H) Platelet Cnt, [place] 150 - 400 k/uL 95 (L) MPV, [place] 9.0 - 12.7 fL 10.8 Absol Gran Count 1.45 - 7.50 k/uL 3.39 Iron 41 - 186 ug/dL 48 TIBC 232 - 386 ug/dL 281 Transferrin Saturation 15 - 57 % 17 Ferritin 14.7 - 205.1 ng/mL 77.5 ? ASSESSMENT:?76-year-old female with history of chronic renal failure (stage III), and PAN cirrhosis, and pancytopenia and chronic anemia, iron deficiency secondary to GI bleeding on warfarin. ? PLAN: - continue injectafer 750mg IV weekly x 2; keep iron saturation above 20% - Repeat iron study monthly and monitor CBC weekly for possible blood transfusion or Aranesp injection if hemoglobin is less than 8.0 for?blood transfusion or hemoglobin less than 10 for Aranesp injection every 14 days. - Follow-up with PCP and cardiology regarding anticoagulation therapy. Keep ?PT/INR in 2.0 - 3.0 because of bleeding and thrombocytopenia. I spent 25?minutes in the visit, with more than 50% of the total nspd-uv-wwml time of the visit in counseling / coordination of care. - avoid aspirin and NSAIDs; dietary consult to maintain a proper diet with warfarin therapy. - repeat CBC, CMP, iron study OV in 3 months. ? Yara Garay MD. ELECTRONICALLY SIGNED ? Cc: Dr. Eddie Mendoza ?Dr. Silvino Hu. PROGRESS Observed: 12/20/2017 Status: COMPLETED Source: [place] 9:34 AM [facility] REPOSITORY O ID: [id number] Author: Yara Garay Service: (none) Author Type: Physician Type: Progress Notes Filed: 12/21/2017 7:29 AM Note Text: - continue to monitor CBC weekly for possible blood transfusion or Aranesp injection if hemoglobin is less than 8.0 for?blood transfusion or hemoglobin less than 10 for Aranesp injection every 14 days. - repeat CBC, CMP, iron study OV in 3 months. - iron study monthly x 3 AND continue INJECTAFER next week CNOVSP Observed: 12/20/2017 Status: COMPLETED Source: [place] 9:10 AM [facility] REPOSITORY Visit (SP) Office ([place]) EMANI LOUIS ([id number]) 1940 F TXT Date Time Provider Department 12/20/17 9:10 AM YARA GARAY During your visit today, we recorded the following information about you: Temperature Pulse Blood pressure Weight 97.2 degrees 110/minute 78/51 62.6 kg Cleia Carpenter LPN 12/20/2017 9:32 AM Signed Est patient. Three month office visit. Discuss recent labs. Yara Laughlin LPN 12/21/2017 7:29 AM Signed - continue to monitor CBC weekly for possible blood transfusion or Aranesp injection if hemoglobin is less than 8.0 for?blood transfusion or hemoglobin less than 10 for Aranesp injection every 14 days. - repeat CBC, CMP, iron study OV in 3 months. - iron study monthly x 3 AND continue INJECTAFER next week Yara Garay 12/21/2017 7:29 AM Signed PATIENT NAME: Emani Louis. CLINIC NO: [id number]. ATTENDING PHYSICIAN: Yara Garay MD. DATE OF SERVICE:12/20/2016. ? DIAGNOSIS: Anemia of chronic disease secondary to renal failure and PAN cirrhosis AND?diabetes. ? chronic GI bleeding secondary to Coumadin therapy. ? ? HPI: ?Mrs. Louis is a 76-year-old white female with anemia chronic disease on iron and Aranesp injection for treatment of her anemia?secondary to chronic renal failure. 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 She is on Coumadin for mechanical prosthetic mitral valve. She also has chronic asymptomatic hypotension, congestive heart failure and respiratory failure on chronic oxygen. ?? Patient has a previous GI evaluation which showed no source of bleeding. Her last Endoscopy Study was several years ago with Dr. Hu. ?? Interim history:?Mrs. Louis was transfused multiple times since her last visit,?almost every 2- 3 weeks. Patient is?on Coumadin because of mechanical prosthetic mitral valve replacement.?Her PT/ INR is kept about 3 - 4. Patient has fatigue?because of anemia. She has been taking iron 3 times daily. She also has?chronically hypotensive,?she has no?dizziness and lightheadedness. She it is also getting on Aranesp injection in between blood transfusion for her anemia, in addition to IV iron. Mrs. Louis is scheduled for evaluation with Dr. Hu next month. She has no jaundice, ascites or encephalopathy. She is not taking aspirin or NSAIDs. ? All medications AND allergies updated and reviewed by me. ? REVIEW OF SYSTEMS: ? CONSTITUTIONAL: ?No fevers, chills, nightsweats, unintended weight loss HEENT: ?Denies frequent or severe heaches, nasal congestion/sinus symptoms, problematic allergy problems. EYES: ?No diplopia or blurry vision. CARDIOVASCULAR: ?No chest pain, + dyspnea?with exertion, palpitations, orthopnea, PND, ankle edema. PULM: ?No dyspnea, unexplained cough. GI: ?No dysphagia/odynophagia, problematic reflux, constipation, diarrhea, changes in stool habits, hematochezia, melena. : ?No new urinary complaints, including dysuria, gross hematuria or pyuria. NEURO: ?No new balance problems, peripheral weakness/paresthesias or numbness of concern. MUSC-SKEL: ?No new joint pain, swelling, or erythema. PSY: ?No concerns regarding depression, anxiety or panic. INTEGUMENTARY: ?No new skin changes (rash, new or changing mole, new growth) ? PHYSICAL EXAMINATION: 76-year-old female appeared to be no acute distressed BP 78/51 Pulse 110 Temp (Src) 97.2 (Temporal Artery) Wt 138 lb (62.6kg) HEENT: Head is normocephalic, atraumatic. Sclerae white, conjunctivae pink. PEERL. EOMs are intact. Oropharynx is benign.?Complexion pale LYMPHATICS: There is no palpable adenopathy in the neck, supraclavicular region, axillae, or groin. LUNGS: Lungs are clear to percussion and auscultation. HEART: Heart is regular?with a 2/6 systolic?murmurs, + prosthetic mitral clicks no gallops, or rubs. ABDOMEN: Soft and nontender without organomegaly. No masses can be palpated. EXTREMITIES: Are without edema. NEUROLOGIC: Exam is physiologic ? LABORATORY DATA: Component Latest Ref Rng AND Units 12/17/2017 WBC, [place] 3.70 - 11.00 k/uL 4.26 RBC, [place] 3.90 - 5.20 m/uL 3.12 (L) Hemoglobin, [place] 11.5 - 15.5 g/dL 9.3 (L) Hematocrit, [place] 36.0 - 46.0 % 30.3 (L) MCV, [place] 80.0 - 100.0 fL 97.1 MCH, [place] 26.0 - 34.0 pg 29.8 MCHC, [place] 30.5 - 36.0 g/dL 30.7 RDW, [place] 11.5 - 15.0 % 18.2 (H) Platelet Cnt, [place] 150 - 400 k/uL 95 (L) MPV, [place] 9.0 - 12.7 fL 10.8 Absol Gran Count 1.45 - 7.50 k/uL 3.39 Iron 41 - 186 ug/dL 48 TIBC 232 - 386 ug/dL 281 Transferrin Saturation 15 - 57 % 17 Ferritin 14.7 - 205.1 ng/mL 77.5 ? ASSESSMENT:?76-year-old female with history of chronic renal failure (stage III), and PAN cirrhosis, and pancytopenia and chronic anemia, iron deficiency secondary to GI bleeding on warfarin. ? PLAN: - continue injectafer 750mg IV weekly x 2; keep iron saturation above 20% - Repeat iron study monthly and monitor CBC weekly for possible blood transfusion or Aranesp injection if hemoglobin is less than 8.0 for?blood transfusion or hemoglobin less than 10 for Aranesp injection every 14 days. - Follow-up with PCP and cardiology regarding anticoagulation therapy. Keep ?PT/INR in 2.0 - 3.0 because of bleeding and thrombocytopenia. I spent 25?minutes in the visit, with more than 50% of the total nhis-sx-lfug time of the visit in counseling / coordination of care. - avoid aspirin and NSAIDs; dietary consult to maintain a proper diet with warfarin therapy. - repeat CBC, CMP, iron study OV in 3 months. ? Yara Garay MD. ELECTRONICALLY SIGNED ? Cc: Dr. Eddie Mendoza ?Dr. Silvino Hu. Homa Ellison Lpn, LPN 12/20/2017 10:00 AM Signed Aranesp injection administered, right arm,tolerated well, no immediate adverse reactions noted. Homa Ellison LPN Referring Provider: YARA GARAY [[id number]] Allergies As of Date: 12/20/2017 Noted Allergy Reaction AMBIEN (ZOLPIDEM TARTRATE) 09/06/2005 16 - Unknown ATIVAN (LORAZEPAM) 09/06/2005 14 - Other: See Comments Comments: just didn't work MOBIC (MELOXICAM) 09/06/2005 16 - Unknown PAMELOR (NORTRIPTYLINE HCL) 09/06/2005 16 - Unknown Date Reviewed: 12/20/2017 Reviewed by: Celia Carpenter LPN - Fully Assessed Reason for Visit: Established Patient [175] Primary Visit Diagnosis:Anemia in chronic kidney disease, unspecified CKD stage [N18.9, D63.1] Other Visit Diagnosis:Chronic kidney disease, stage III (moderate) [N18.3] Order(s):TREATMENT PARAMETERS [6079235] Order #: [id number]: 1 [] darbepoetin peace in polysorbat 300 mcg injection (ARANESP)Disp: Rfl: Level of Service: EST PATIENT VISIT LEVEL 3 [[id number]] Disposition: Return in about 3 months (around 03/22/2018). Follow-up and Disposition History Recorded Prescriptions as of 12/20/2017 Sig: PANTOPRAZOLE 40 MG TABLET,DEL* Take 1 tablet by mouth once d* FOLIC ACID 1 MG TABLET Take 1 tablet by mouth once d* POTASSIUM CHLORIDE ER 20 MEQ * Take 1 tablet by mouth once d* WARFARIN 2.5 MG TABLET Take 1 tablet by mouth. From * ATORVASTATIN 20 MG TABLET Take 1 tablet by mouth once d* LANCETS Use as instructed 3 to 4 TIME* VENLAFAXINE 37.5 MG TABLET Take 1 tablet by mouth twice * BLOOD SUGAR DIAGNOSTIC, DRUM-* Test blood sugar(s) 4 times d* BLOOD-GLUCOSE METER, DRUM-TYP* Accu-Check Compact Plus Meter* LEVOTHYROXINE 50 MCG TABLET TAKE ONE TABLET BY MOUTH EVER* HYDROCODONE 5 MG-ACETAMINOPHE* Take 1 tablet by mouth every * MAGNESIUM 250 MG TABLET Take 250 mg by mouth once lynette* INSULIN GLARGINE (U-100) 100 * Inject 35 Units subcutaneousl* INSULIN LISPRO (U-100) 100 UN* Inject 15 Units subcutaneousl* PEN NEEDLE, DIABETIC 31 GAUGE* USE ONE NEEDLE FOR EACH DOSE TRAZODONE 150 MG TABLET Take 1-2 tablets by mouth lynette* FUROSEMIDE 20 MG TABLET 20 mg every other day. Daily CYANOCOBALAMIN (VIT B-12) 1,0* Take 1 tablet by mouth once d* FERROUS SULFATE 325 MG (65 MG* Take 1 tablet by mouth three * ALBUTEROL SULFATE HFA 90 MCG/* Inhale 2 Puffs as instructed * TIOTROPIUM BROMIDE 2.5 MCG/AC* Inhale 2 Puffs as instructed * DOCUSATE SODIUM 100 MG CAPSULE Take 1 capsule by mouth twice* CHOLECALCIFEROL (VITAMIN D3) * Take 1,000 Units by mouth onc* Problem List As Of Date 12/20/2017 Noted Resolved Asthma [J45.909] INVALID FOR* ESOPHAGEAL REFLUX [K21.9] INVALID FOR* Mixed hyperlipidemia [E78.2] INVALID FOR* LUMBAGO [M54.5] INVALID FOR* Osteoarthrosis, unspecified whether generalized* Fibromyalgia [M79.7] More... 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 Heart Valve Replaced by Other Means [Z95.4] INVALID FOR* More... Cardiac pacemaker in situ [Z95.0] INVALID FOR* More... Acute kidney failure with lesion of tubular nec*INVALID FOR*01/10/2013 More... 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 Hypothyroidism [E03.9] INVALID FOR* THROMBOCYTOPENIA NOS [D69.6] INVALID FOR* COPD (chronic obstructive pulmonary disease) (H*INVALID FOR* Chronic kidney disease, stage III (moderate) [N*INVALID FOR* PSVT (paroxysmal supraventricular tachycardia) *INVALID FOR*05/09/2012 More... Iron deficiency [E61.1] INVALID FOR*02/03/2013 Anemia in chronic renal disease [N18.9, D63.1] INVALID FOR* Infected cat bite [W55.01XA] INVALID FOR*05/09/2012 Atrial fibrillation (HCC) [I48.91] INVALID FOR* Adenomatous colon polyp [D12.6] INVALID FOR* Tobacco use disorder [F17.200] INVALID FOR* Cholelithiasis [K80.20] INVALID FOR*03/04/2014 Unspecified pleural effusion, loculated, right *INVALID FOR*03/04/2014 Dizziness and giddiness [R42] INVALID FOR* Carotid artery disease without cerebral infarct*INVALID FOR* Other specified hypotension [I95.89] INVALID FOR* Transfusion history [Z92.89] INVALID FOR* More... Sleep apnea [G47.30] Moderate to severe pulmonary hypertension (HCC)*INVALID FOR* H/O mitral valve replacement [Z95.2] INVALID FOR* Type 2 diabetes mellitus with stage 3 chronic k*INVALID FOR* Vitamin D deficiency [E55.9] INVALID FOR* Anticoagulant long-term use [Z79.01] INVALID FOR* Iron deficiency anemia due to chronic blood los*INVALID FOR* Gastrointestinal hemorrhage [K92.2] INVALID FOR* Visit Notes: >> Celia Carpenter LPN Aaliyah December 20, 2017 9:22 AM Status: Signed Est patient. Three month office visit. Discuss recent labs. Celia Carpenter LPN >> Homa Ellison Lpn, LPN Aaliyah December 20, 2017 9:59 AM Status: Signed Aranesp injection administered, right arm,tolerated well, no immediate adverse reactions noted. Homa Ellison LPN Encounter Status:Closed by YARA GARAY MD on 12/21/17 MARY[place]ETH ABS GR + CBC Collected: 12/20/2017 Status: F Source: [place] 9:06 AM [facility] [place] REPOSITORY TYPE CODE TESTS RESULT OUT OF REFERENCE UNITS RANGE LAB WWBC 3.70-11.00 k/uL [place] WBC 4.56 LAB WRBC 3.90-5.20 m/uL Low [place] RBC 3.10 LAB WHGB 11.5-15.5 g/dL Low [place] Hemoglobin 9.3 LAB WHCT 36.0-46.0 % Low [place] Hematocrit 30.3 LAB WMCV 80.0-100.0 fL [place] MCV 97.7 LAB WMCH 26.0-34.0 pg [place] MCH 30.0 LAB WMCHC 30.5-36.0 g/dL [place] MCHC 30.7 LAB WRDW 11.5-15.0 % [place] High RDW 17.9 LAB WPLT 150-400 k/uL Low [place] Platelet Cnt 97 LAB WMPV 9.0-12.7 fL [place] MPV 10.0 Result Comment: Test performed at: [facility], [address] [place] [address] Rd[address] [place] [address]. LAB ABGRAN 1.45-7.50 k/uL Absol Gran 3.77 Count HOSP Observed: 12/18/2017 Status: COMPLETED Source: [place] 12:00 AM [facility] [place] REPOSITORY Patient:Emani Louis MRN: <[id number]> Height:5' 2(1.575 m) Weight:143 lb (64.864 kg) Outpatient Medications as of 02/06/18: peg 3350-Electrolytes (GOLYTELY) 236-22.74-6.74 -5.86 gram suspension atorvastatin (LIPITOR) 20 mg tablet traZODone (DESYREL) 150 mg tablet COMPOUNDED PRESCRIPTION pantoprazole DR (PROTONIX) 40 mg tablet folic acid 1 mg tablet potassium chloride ER (K-DUR, KLOR-CON) 20 mEq tablet warfarin (COUMADIN) 2.5 mg tablet Lancets lancets venlafaxine (EFFEXOR) 37.5 mg tablet Blood Sugar Diagnostic, Drum (ACCU-CHEK COMPACT TEST) strp Blood-Glucose Meter, Drum-type (ACCU-CHEK COMPACT PLUS CARE) kit levothyroxine (SYNTHROID) 50 mcg tablet HYDROcodone-acetaminophen (NORCO) 5-325 mg per tablet Magnesium 250 mg tab insulin glargine (LANTUS SOLOSTAR) 100 unit/mL (3 mL) inpn Insulin Lispro, Human, (HUMALOG KWIKPEN) 100 unit/mL inpn insulin needles, DISPOSABLE, (PEN NEEDLE) 31 gauge x 5/16 ndle furosemide (LASIX) 20 mg tablet cyanocobalamin (VITAMIN B-12) 1,000 mcg tab ferrous sulfate 325 mg (65 mg iron) EC tablet albuterol HFA (PROVENTIL HFA, VENTOLIN HFA) 90 mcg/actuation inhaler tiotropium bromide (SPIRIVA RESPIMAT) 2.5 mcg/actuation mist docusate sodium (COLACE) 100 mg capsule Cholecalciferol, Vitamin D3, (VITAMIN D) 1,000 unit ORAL Tab Admission/Clinic Administered Medications as of 02/06/18: Patient has no admission medications. Problem List: Asthma [J45.909] Esophageal reflux [K21.9] Mixed hyperlipidemia [E78.2] Lumbago [M54.5] Osteoarthrosis, unspecified whether generalized or localized, involving lower leg [M17.10] Fibromyalgia [M79.7] Chronic rhinitis [J31.0] Depressive disorder [F32.9] Persistent disorder of initiating or maintaining sleep [G47.00] Congestive heart failure (HCC) [I50.9] Heart valve replaced by other means [Z95.4] Cardiac pacemaker in situ [Z95.0] Hypothyroidism [E03.9] Thrombocytopenia, unspecified ([facility]) [D69.6] COPD (chronic obstructive pulmonary disease) ([facility]) [J44.9] Chronic kidney disease, stage III (moderate) [N18.3] Anemia in chronic renal disease [N18.9, D63.1] Atrial fibrillation ([facility]) [I48.91] Adenomatous colon polyp [D12.6] Tobacco use disorder [F17.200] Dizziness and giddiness [R42] Carotid artery disease without cerebral infarction ([facility]) [I77.9] Other specified hypotension [I95.89] Transfusion history [Z92.89] Sleep apnea [G47.30] Moderate to severe pulmonary hypertension [I27.20] H/O mitral valve replacement [Z95.2] Type 2 diabetes mellitus with stage 3 chronic kidney disease (HCC) [E11.22, N18.3] Vitamin D deficiency [E55.9] Anticoagulant long-term use [Z79.01] Iron deficiency anemia due to chronic blood loss [D50.0] Gastrointestinal hemorrhage [K92.2] Acute blood loss anemia [D62] Malnutrition of mild degree (HCC) [E44.1] GIB (gastrointestinal bleeding) [K92.2] Thrombocytopenia (HCC) [D69.6] DM type 2 (diabetes mellitus, type 2) (HCC) [E11.9] CHF (congestive heart failure) (HCC) [I50.9] Chronic hypotension [I95.89] Allergies: Ambien [Zolpidem Tartrate] Ativan [Lorazepam] Mobic [Meloxicam] Pamelor [Nortriptyline Hcl] Date Verified: 01/31/18 Lab Values Lab Value Units Date High Low POTA* 4.4 mmol/L 01/21/2018 5.1 3.7 KARSTEN* 35.7 % 01/21/2018 46.0 36.0 Progress Notes (NAV MAIN A30): Judi August 02/04/2018 12:02 PM Signed Patient's request for medication is as follows: Pending Prescriptions Disp Refills PEG 3350-ELECTROLYTES 236 GRAM-22.74 GRAM-6.74 GRAM-5.86 GRAM SOLUTION 4 L 0 Sig: Refer to printed patient instructions that will be mailed to you. Please approve the above prescription(s) to electronically send to pharmacy. Judi August DRAPER LPN, ERNESTO 02/05/2018 11:43 AM Signed patient called unable to speak with patient vm message left to make aware prescription called in to pharmacy. YAMILA DRAPER LPN Progress Notes (INTM MAIN IMPACT): Teena Sue MD, [facility], 01/24/2018 8:47 AM Addendum HISTORY AND PHYSICAL EXAMINATION (IMPACT) SERVICE DATE: 01/21/2018 PRIMARY CARE PHYSICIAN: Kodak Muñoz MD CHIEF COMPLAINT/HISTORY OF PRESENT ILLNESS: Ms. Louis is a 77 year old female referred to ct for preoperative evaluation. My final recommendations will be communicated back to the requesting physician/surgeon by the way of the shared medical record. Referring Surgeon: Dr. Mckeon Date of Surgery: 02/06/2018 Planned Surgery/Procedure: COLON BALLOON ENTEROSC GEN ANES Indication for Planned Surgery / Procedure: Hx of anemia Accompanied by daughter. Patient presents for perioperative evaluation. Hx of Chronic anemia/thrombocytopaenia and followed closely by [facility] for iron and darbopoetin injections. Last darbo was 01/17 and last iron infusion was 6 weeks ago apparently. Has hx of GI bleeds with multiple work-up. Recently discharged on January 15 for severe anemia requiring pRBC and FFP transfusions as well as vit K. Was seen by GI at that time who recommended double balloon enteroscopy but patient refused. ?She was transitioned back to coumadin given hx of [facility] mech valve and was discharged at that time. Denies any hematochezia or melena since discharge. Feels better since discharge. Reports that she follows with [facility] [place] for her coumadin/INR and has always been bridged with lovenox if needs to be off coumadin for anything. Now scheduled for surgery. Refer to Assessment section for details of any comorbidities. Patient is Able to Perform the Following Physical Activity: Climb a flight of stairs or walk up a hill (5.50 METs) No chest pains. Has chronic exertonal SOB with activity which has been unchanged for years Patient's functional class is II-III based on self-reported physical activity. Significant Anesthesia Considerations: None. PAST MEDICAL/SURGICAL/FAMILY/SOCIAL HISTORY PAST MEDICAL HISTORY Diagnosis Date - Acute kidney failure with lesion of tubular necrosis ([facility]) 08/19/[address] Tobias. - Adenomatous colon polyp 08/30/2012 - Anemia in chronic kidney disease 08/31/2011 - Atrial fibrillation ([facility]) 05/09/2012 - Calculus of ureter 03/24/2008 - Cardiac pacemaker in situ 08/17/2008 Sick sinus syndrome. - CHF (congestive heart failure) ([facility]) 07/24/2008 Mitral insufficiency. s/p MV replacement - Cholelithiasis 05/26/2013 - Chronic hypotension - Chronic kidney disease, stage III (moderate) 09/23/2009 - Chronic rhinitis - COPD (chronic obstructive pulmonary disease) ([facility]) - DDD (degenerative disc disease) - Diverticulosis of colon (without mention of hemorrhage) 10/17/05 - DM type 2 (diabetes mellitus, type 2) ([facility]) 08/15/2005 on insulin - Esophageal reflux 08/15/2005 - Fibromyalgia - Generalized osteoarthrosis, unspecified site - Heart valve replaced by other means 08/17/2008 #25, [facility] Mitral valve. - Iron deficiency 08/17/2011 - Lumbago 08/15/2005 - Melena - Moderate to severe pulmonary hypertension 09/21/2016 - Myalgia and myositis, unspecified - Other and unspecified hyperlipidemia 08/15/2005 - PSVT (paroxysmal supraventricular tachycardia) (HCC) 04/10/2011 - Sleep apnea - Thrombocytopenia (HCC) - Tricuspid regurgitation - Unspecified asthma(493.90) 08/15/2005 - Unspecified cardiovascular disease heart cath 12/15 PAST SURGICAL HISTORY Procedure Laterality Date - CAPSULE ENDOSCOPY SMALL BOWEL 12/03/2017 - COLONOSCOP W/ OR W/O [facility] SPE[facility] 10/17/05 - COLONOSCOP W/ OR W/O [facility] SPEC 08/25/2009 Colonoscopy - COLONOSCOP W/ OR W/O [facility] SPEC 10/17/2012 Colonoscopy - COLONOSCOPY 11/26/2017 - EGD 01/16/2005 - EGD W/O OR W/BRUSH/WASH 08/25/2009 EGD - EGD W/O OR W/BRUSH/WASH 04/05/15 EGD inpt [facility] - EGD W/O OR W/BRUSH/WASH 10/30/2016 EGD - INSER DIAMOND PACER XVENOUS ATRIAL Perm pacemaker insert - LEFT HEART CATH,PERCUTANEOUS Cardiac cath, L heart - LIGATE FALLOPIAN TUBE Tubal ligation - PAST SURGICAL HISTORY OF cervical conization - PAST SURGICAL HISTORY OF 01/03/05 Heart Cath - PAST SURGICAL HISTORY OF Carpal tunnel surgery b/l wrists - PERICARDIAL FINE NEEDLE ASPIRATION 2008 Pericardial Window - REPLACEMENT OF MITRAL VALVE Mitral valve replacement, [facility] #25. 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 Oxygen 3 LPM at HS and with exertion. Has cane, wheelchair as needed. No safety concerns. Camping trailer during summer. MEDICATIONS/ALLERGIES Current Outpatient Prescriptions: traZODone (DESYREL) 150 mg tablet TAKE 1 OR 2 TABLETS BY MOUTH DAILY AT BEDTIME Disp: 180 tablet Rfl: 3 COMPOUNDED PRESCRIPTION CBC and PT/INRDue: 01/16/2018 and 01/21/2018Dx: GI Bleeding, Chronic Coumadin Therapy. AnemiaResults to Dr. Kodak Muñoz Disp: 1 Each Rfl: [address] (PROTONIX) 40 mg tablet Take 1 tablet by mouth once daily. Disp: 90 tablet Rfl: 3 folic acid 1 mg tablet Take 1 tablet by mouth once daily. Disp: 90 tablet Rfl: 1 potassium chloride ER (K-DUR, KLOR-CON) 20 mEq tablet Take 1 tablet by mouth once daily. From outside pharmacy. Disp: Rfl: warfarin (COUMADIN) 2.5 mg tablet Take 1 tablet by mouth. From outside pharmacy. Disp: Rfl: atorvastatin (LIPITOR) 20 mg tablet Take 1 tablet by mouth once daily. Disp: 90 tablet Rfl: 0 Lancets lancets Use as instructed 3 to 4 TIMES DAILY insulin dep E 11.9 Disp: 400 Each Rfl: 1 venlafaxine (EFFEXOR) 37.5 mg tablet Take 1 tablet by mouth twice daily. Disp: 60 tablet Rfl: 5 Blood Sugar Diagnostic, Drum (ACCU-CHEK COMPACT TEST) strp Test blood sugar(s) 4 times daily. Dx: Type 2 DM - Uncontrolled E11.65 Insulin: Yes Disp: 100 Strip Rfl: 4 Blood-Glucose Meter, Drum-type (ACCU-CHEK COMPACT PLUS CARE) kit Accu-Check Compact Plus Meter Diagnosis: Type 2 DM - Uncontrolled E11.65 Disp: 1 Kit Rfl: 0 levothyroxine (SYNTHROID) 50 mcg tablet TAKE ONE TABLET BY MOUTH EVERY DAY Disp: 90 tablet Rfl: 1 HYDROcodone-acetaminophen (NORCO) 5-325 mg per tablet Take 1 tablet by mouth every 8 hours as needed for Pain. Disp: 45 tablet Rfl: 0 Magnesium 250 mg tab Take 250 mg by mouth once daily. Disp: Rfl: insulin glargine (LANTUS SOLOSTAR) 100 unit/mL (3 mL) inpn Inject 35 Units subcutaneously daily at bedtime. For blood glucose >150 Disp: 30 mL Rfl: 3 Insulin Lispro, Human, (HUMALOG KWIKPEN) 100 unit/mL inpn Inject 15 Units subcutaneously twice daily with meals for blood glucose >140. Add 2 units for every 50 of glucose >150. Disp: 30 mL Rfl: 3 insulin needles, DISPOSABLE, (PEN NEEDLE) 31 gauge x 5/16 ndle USE ONE NEEDLE FOR EACH DOSE Disp: 100 Each Rfl: 6 furosemide (LASIX) 20 mg tablet Take 20 mg by mouth every other day. Daily Disp: Rfl: cyanocobalamin (VITAMIN B-12) 1,000 mcg tab Take 1 tablet by mouth once daily. Disp: Rfl: 0 ferrous sulfate 325 mg (65 mg iron) EC tablet Take 1 tablet by mouth three times daily with meals. Disp: Rfl: 0 albuterol HFA (PROVENTIL HFA, VENTOLIN HFA) 90 mcg/actuation inhaler Inhale 2 Puffs as instructed every 6 hours as needed for Wheezing/Shortness of Breath. Disp: 1 Inhaler Rfl: 6 docusate sodium (COLACE) 100 mg capsule Take 1 capsule by mouth twice daily as needed for Constipation. Disp: Rfl: 0 Cholecalciferol, Vitamin D3, (VITAMIN D) 1,000 unit ORAL Tab Take 500 Units by mouth once daily. Disp: Rfl: tiotropium bromide (SPIRIVA RESPIMAT) 2.5 mcg/actuation mist Inhale 2 Puffs as instructed once daily. Inhale two puffs once daily. Disp: Rfl: 0 No current facility-administered medications for this visit. ALLERGIES Allergen Reactions - Ambien [Zolpidem Ta* Unknown - Ativan [Lorazepam] Other: See Comments just didn't work - Mobic [Meloxicam] Unknown - Pamelor [Nortriptyl* Unknown REVIEW OF SYSTEMS General: No weight loss, malaise or fevers. Neuro: No history of TIA's, stroke, HVAC INSTALLATION TECHNICIAN tumor, impaired sensorium, hemiplegia, paraplegia or quadriplegia. R hand dining room host weakness chronic Respiratory: COPD, Denies asthma. COPD with chronic exertional dyspnea that is stable. Takes inhalers only as needed apparently which is around once a month apparenty;. Has pulmo HTN. Denies hx of SHOSHANA or recent cough or colds (last cold was early December) Cardiovascular: Chronic hypotension-currently asymptomatic. Hx of MV replacement ([facility]) on coumadin, Has a fib. 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 Denies hx of VTE. No chest pain GI: Denies hx of GERD. Denies n/v/abd pain, melena,hematochezia, hematochezia. Hx of GI bleed in the past. -see HPI : No history of UTI in past 6 weeks. No history of renal failure. Not currently on or requiring dialysis. No history of symptoms or problems. TECHNICAL SERVICES REP: No vaginal bleeding due to menopause and no abnormal vaginal discharge. Endocrine: Diabetes Mellitus on insulin, Hypothyroidism, Denies any steroid in the past year Hematology: Anemia, chronic thrombocytopenia, followed by Heme. On coumadin. Not on ASA Oncology: No history of CA metastasis, chemo within 30 days, or radiotherapy within 90 days. No history of oncological symptoms or problems. Psych: Anxiety Skin: Negative for lesions, rash, and itching. PHYSICAL EXAM VITALS: BP 84/48 Pulse 106 Temp (Src) 98 (Oral) Ht 5' 2 (1.58m) Wt 143 lb (64.9kg) SpO2 95% BMI 26.15 kg/(m2). General: Alert, oriented, cooperative, healthy appearance. Not in distress Skin: Normal color, no rash, no lesions. HEENT: +upper dentures Pupils equal, round and reactive. Cardiovascular: Normal S1 AND S2, grade 3/6 systolic murmur base. +PPM palpable upper left anterior chest Lungs: Normal breath sounds, no wheezes or crackles. Abdomen: Soft, non-tender, no rigidity. Extremities: No deformity, no edema or tenderness, no joint swelling or clubbing. Neurological: Alert, Normal cognition and motor skills. Pulses: Radial pulses, B. +2. No carotid bruit ASSESSMENT Ms. Louis is a 77 year old female referred to me for preoperative evaluation. Patient has the following medical comorbidities which might affect the perioperative course: - Paroxysmal?A.fib, on coumadin, not on beta-blockers given chronic hypotension - s/p MVR with [facility] valve 2007. On warfarin (local electric range assembler has done lovenox bridging in the past) - CHFpEF, compensated - SSS, s/p PPM 2008 - CKD 3 b/l 1.5-1.7 though more recent creatinine in the 1.3- 1.4 range - Anemia of Chronic disease, folowed closely by heme and does regular aranesp - DM type II, on correction insulin, no complications - Hypothyroid, on Synthroid 50 - Moderate to severe pulmonary hypertension, 2017 - COPD, on 2 L oxygen at home PRN. Controlled with prn inhalers? - hx of GIB, capsule studies in November 2017 showed: non bleeding duodenal angiectasiia, single non-bleeding colonic angiodysplastic lesion. s/p argon plasma coagulation (APC) and clip placement. Recently discharged from [facility] for weakness, anemia. No signs or symptoms of GI bleeding even with current anticoagulation since discharge. -Hx of chronic hypotension SBP 70's with Heme and 63/42 with PCP visit in November. SBP 80 with recent hospital stay. Asymptomatic -Chronic thrombocytopenia, baseline 80-90K, stable, followed by local Heme -Chronic anticoagulation. ??Patient's RCRI (Revised Cardiac Risk Index: CAD/CHF/Stroke or TIA/SCr>2/DM on Insulin/High Risk Surgery) score is 2 and is at moderate but acceptable risk for major adverse cardiac events in the perioperative period. Diagnostic tests reviewed for today's visit: Component Latest Ref Rng AND Units 01/13/2018 01/13/2018 01/17/2018 4:49 AM 11:32 AM Protein, Total 6.3 - 8.0 g/dL 5.0 (L) Albumin 3.9 - 4.9 g/dL 2.6 (L) Calcium 8.5 - 10.2 mg/dL 7.2 (L) Bilirubin, Total 0.2 - 1.3 mg/dL 0.2 Alkaline Phosphatase 32 - 117 U/L 63 AST 13 - 35 U/L 8 (L) Glucose 74 - 99 mg/dL 118 (H) BUN 7 - 21 mg/dL 13 Creatinine 0.58 - 0.96 mg/dL 1.42 (H) Sodium 136 - 144 mmol/L 146 (H) Potassium 3.7 - 5.1 mmol/L 4.1 Chloride 97 - 105 mmol/L 119 (H) CO2 22 - 30 mmol/L 21 (L) Anion Gap 9 - 18 mmol/L 6 (L) ALT 7 - 38 U/L 9 eGFR- 44 eGFR-All Other Races . 36 WBC 3.70 - 11.00 k/uL 3.72 RBC 3.90 - 5.20 m/uL 2.55 (L) Hemoglobin 11.5 - 15.5 g/dL 7.5 (L) 7.9 (L) Hematocrit 36.0 - 46.0 % 24.4 (L) 25.6 (L) MCV 80.0 - 100.0 fL 95.7 MCH 26.0 - 34.0 pG 29.4 MCHC 30.5 - 36.0 g/dL 30.7 RDW-CV 11.5 - 15.0 % 17.9 (H) Platelet Count 150 - 400 k/uL 72 (L) MPV 9.0 - 12.7 fL 12.2 Absolute nRBC <0.01 k/uL <0.01 WBC, [place] 3.70 - 11.00 k/uL 3.65 (L) RBC, [place] 3.90 - 5.20 m/uL 3.20 (L) Hemoglobin, [place] 11.5 - 15.5 g/dL 9.4 (L) Hematocrit, [place] 36.0 - 46.0 % 31.2 (L) MCV, [place] 80.0 - 100.0 fL 97.5 MCH, [place] 26.0 - 34.0 pg 29.4 MCHC, [place] 30.5 - 36.0 g/dL 30.1 (L) RDW, [place] 11.5 - 15.0 % 17.5 (H) Platelet Cnt, [place] 150 - 400 k/uL 87 (L) MPV, [place] 9.0 - 12.7 fL 11.1 Absol Gran Count 1.45 - 7.50 k/uL 2.98 PT Sec 9.7 - 13.0 sec 24.6 (H) PT INR 0.9 - 1.3 2.5 (H) Discharge Summary 01/15/18: This is a 77 year old with PMHx: - paroxysmal?A.fib. - MVR with [facility] valve 2007. On warfarin at home, PT/INRtarget of2.0 - 3.0 because of bleeding and thrombocytopenia as outlined by Hematology - HF, taking lasix 20 mg q48h. ? - SSS, s/p PM 2008 - HLD, using Lipitor 20 mg. - CKD 3 with hx of ATN and MAX 2009, b/l 1.5-1.8 - Anemia of Chronic disease, taking Iron for 4 years, 325 TID, taking B12 and folic acid. - DM, using 35 units at bedtime, and Humalog 15 + SS2 with meals. - Hypothyroid, using Synthroid 50 Qd - DJD, using ?[place]. - Moderate to severe pulmonary hypertension, 2017 - COPD, on 2 L oxygen at home PRN. Using Albuterol, Spiriva. ? - Depression (using Venlafaxine), Trazodone (to help sleep). Feels depressed, which is getting worse recently, feels that she might hurt herself. - hx of GIB, ?2-3 years ago, w/u included endoscopy and capsule endoscopy at that time and there was no source of bleeding, In addition, she had recent scops as listed below: Capsule endoscopy 12/03/17:?Non bleeding duodenal angiectasia. ?Abnormal fold in the distal/terminal ileum, exact nature of which cannot be determined. Colonoscopy 11/26/17:?Diverticulosis in the sigmoid colon and in the descending colon. A single non-bleeding colonic angiodysplastic lesion. Treated with argon plasma coagulation (APC). Clips were placed. - She p/w weakness to OSH ([place] [facility]), as she was too weak to stand and noted to be hypotensive and tachycardic. Hg was 4.5, and INR was 19.5, given Vitamin K and 2 units of RBCs, 2 L fluid bolus, ?80 mg IV protonix and started on a protonix gtt. ??She was then transferred to [place] [facility] ICU?Hgb on presentation was 7.2. Patient received 2 more units of pRBC and FFP. Repeat Hgb was 9.7.?She had one melanotic while there. She was transferred here for further w/u. -She had a recent fall (3 days ago)?on the hip with L hip hematoma. ?She had black stool as she was taking iron supplement. She mentioned that some times has bright blood per rectum, no N/V?or hematemesis, no abd pain. She noted worsening SOB in the last 3 days. Her had PNA 10 days ago with cough/green sputum, she denies ?Fever but has some cough with white sputum. -Of note, she was scheduled for a double balloon enteroscopy on February 06, 2018. Patient recieves weekly Arnesp or blood transfusions. ?-PER GI CONSULT NOTE: Patient would not like to have this procedure performed on this admission. That is not my preference but the patient has a right to direct her own medical care and can have the procedure that is scheduled on 02/06. -Patient was transferred to the [facility]. Patient was being transitioned back to Coumadin for her MVR. Patient had no evidence of recurrent GI bleeding with no melena or hematochezia. Patient had a mild drop in her Hgb today from 7.5. This was rechecked in the afternoon and was 7.9. Patient will be transfused one additional units of PRBC to bring her Hgb > 8.0. Patients INR today was 2.5. She has been on Coumadin 2.5mg daily for many months and has been stable on this dose in the past. INR check on Sunday. -Patient nearly left AMA on 01/12/2018 after we refused to send her on Lovenox. We explained her that Lovenox is not approved for mechanical valves and her INR is not 2.5 so it puts her at risk for thrombus formation. ?-NOTE: Patient is overall high risk for rebleeding. I asked if patient wished to have enteroscopy during this admission and she refused. I even talked with the patients daughter instructing her of this. Instructed that it is imperative that she have her labs rechecked on Sunday and if any problems sooner return to ER for evaluation. ? EKG 01/09/18: Diagnosis:ATRIAL FIBRILLATION NONSPECIFIC ST AND T WAVE ABNORMALITY Echo 01/09/18: CONCLUSIONS: - Exam indication: Hypotension - The left ventricle is small. Left ventricular systolic function is normal. EF = 58 ? 5% (2D biplane) Left ventricular diastolic function was not evaluated due to prosthetic valve. - The right ventricle is dilated. Right ventricular systolic function is mildly decreased. RV not well seen in apical views, ? mild dysfunction based on subcostal ?assessment. - The left atrial cavity is moderately dilated. - The right atrial cavity is dilated. 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 There is mild (1+) mitral valve regurgitation. The peak gradient is 25 mmHg and the mean ?gradient is 12 mmHg. At least mild MR suggested, assessment limited by shadowing. ?Mitral gradients are increased, but at HR of 100 bpm. - There is severe (3+ - 4+) tricuspid valve regurgitation. There is systolic flow reversal evident in the hepatic veins, suggesting TR is in the 3-4+ range. - Estimated right ventricular systolic pressure is 73 mmHg consistent with moderately severe pulmonary hypertension. Estimated right atrial pressure is 10 mmHg. - Exam was compared with the?prior [facility] echocardiographic exam performed on 06/11/2008. There has been interval MVR. CXR 01/09/18: IMPRESSION: Lines, tubes, and devices: ?Permanent pacemaker leads to right heart chambers Lungs and pleura: ?Right effusion with hazy and patchy opacity right base, stable. ?Diminished reticular opacities since prior, likely improved edema. ?No overt pneumothorax. Cardiomediastinal silhouette: ?No substantial interval change post sternotomy for valve repair Hematology 12/20/17: ASSESSMENT:?76-year-old female with history of chronic renal failure (stage III), and PAN cirrhosis, and pancytopenia and chronic anemia, iron deficiency?secondary to GI bleeding on warfarin. ? PLAN: - continue injectafer 750mg IV weekly x 2; keep iron saturation above 20% - Repeat iron study monthly and monitor CBC weekly for possible blood transfusion or Aranesp injection if hemoglobin is less than 8.0 for?blood transfusion or hemoglobin less than 10 for Aranesp injection every 14 days. - Follow-up with PCP and cardiology regarding anticoagulation therapy. Keep PT/INR in 2.0 - 3.0 because of bleeding and thrombocytopenia. I spent 25?minutes in the visit, with more than 50% of the total [id number] time of the visit in counseling / coordination of care. - avoid aspirin and NSAIDs; dietary consult to maintain a proper diet with warfarin therapy. - repeat CBC, CMP, iron study OV in 3 months. PLAN/RECOMMENDATIONS CARDIAC: Will need to determine with Dr. Mckeon if she even needs to be off coumadin for the procedure. If she does, needs to be bridged. IV heparin preferable over lovenox given CKD III (though crea is still acceptable for lovenox bridging dose), thrombocytopenia and recent hospitalization for severe anemia. This might allow for closer monitoring with bridging. Patient declines and prefers lovenox outpatient bridging which she has done in the past and that her electric range assembler arranges. If GI needs patient to be off couamdin, will then need to request her electric range assembler to facilitate bridging with closer monitoring. of note, patient also closely followed by [facility]. Labs ordered to rechceck CBC, INR and BMP. Patient aware to seek medical help right away for any signs and symptoms of anemia or GI bleeding Patient's electric range assembler is Dr. Mendoza [phone]. Device check ordered after discussion with the [facility] who recommended pre-appointment here PULMONARY: Patient is at optimal Pulmonary status for scheduled surgery / procedure. Suggest the following in the post-operative period: Continue bronchodilator medications, Aggressive bronchopulmonary hygiene and Early ambulation ENDOCRINE: DIABETES: - Initiate [facility] Guidelines for perioperative diabetes management. Check finger stick glucose on the morning of surgery. - Patient has been instructed on Preoperative DM medication management. RENAL: - Suggest following in the postoperative period due to patient's pre-existing renal disease: Avoid nephrotoxic medications Dose medications on estimated serum creatinine clearance Monitor fluid balance closely and avoid hypotension. Avoid dehydration / volume depletion Monitor serum creatinine HEMATOLOGY: Continue follow up with Heme. Has regularly scheduled labs with them UpToDate article:Antithrombotic therapy for prosthetic heart valves: Management of bleeding and invasive procedures. Literature review current through: December 2017 When to bridge ? For patients who are undergoing invasive or surgical procedures with 1) significant bleeding risk for which an INR <1.5 is considered essential and 2) who have either a) a mechanical aortic valve plus an additional thromboembolic risk factor (atrial fibrillation, previous thromboembolism, hypercoagulable condition, left ventricular ejection fraction <30 percent, or more than one mechanical valve), b) older generation mechanical aortic valve, or c) mechanical mitral or tricuspid valve replacement, bridging anticoagulation isrecommended during the perioperative time period when the INR is subtherapeutic. Choice of heparin for bridging ? Either intravenous UFH or subcutaneous LMWH is used for bridging anticoagulation for most procedures, when bridging is required Continue same medications perioperatively except for those outlined in the patient instructions. Given instruction on which medications are safe to take on AM of surgery. Discussed above with patient and daughter. Answered all their questions. Discussed bleeding risk with above as well as indication for all recommendations Patient is optimally prepared for surgery pending labs and disucssion with GI regarding coumadin and determination of bridging plan if need to be off coumadin for planned procedure Patient Instructions: As per patient instructions section. General Preoperative/Medication/Fasting Instructions Irma-operative Anticoagulation Management Instructions Preoperative Diabetes Medication Instructions I have discussed the above recommendations with the patient in detail, in radhika and lay terms, and provided a written summary of instructions as needed. We have discussed that no surgery is without risk, but that the goal of preoperative assessment is to optimize that risk, and that was clearly understood by the patient. I have given ample opportunity for the patient to ask questions, and answered all questions to their stated satisfaction. ADDENDUM: January 21; 3:27 PM Patient aware earlier about low battery life of pacemaker and that she is followed by her electric range assembler for it. Device check completed. Per Dr. Mckeon, patient needs to be off coumadin for the procedure. INR 3.[address] Mendoza's office. Spoke to his nurse Kandy who follows the patient's INR and coumadin management. Communicated to her the patient's INR today and she will make adjustments to the coumadin based on today's INR. She is aware of the recent hospitalization with elevated INR. She will discuss with Dr. Mendoza regarding pre-op anticoagulation management in this setting. I am deferring to their office regarding pre-op anticoagulation management. They have apparently also been discussing these issues of anticoagulation in her setting of significant anemia. They will call me back to update me with their recommendations. Once patient's CBC and BMP recsults avialble, I will fax it to their office ( ). ADDENDUM: January 22, 2018 840 AM Labs reviewed. Hb has been stable and even improved. Platelets also within acceptable limits for the procedure. Creatinine also with GFR>30 so still within acceptable range for lovenox (addendum but will need to be closely monitored for bleeding if placed on lovenox). Will fax results to Dr. Mendoza's offioce. ADDENDUM: January 22, 2018 9:39 AM Received call from Dr. Mendoza's office (Kandy). They will manage pre- and post-op anticoagulation management. Kandy has mentioned yesterday as well that Dr. Mendoza has looked into some recent data about anticoagulation bridging for patients who have mechanical valves who are at high risk for bleeding. They have previously bridged the patient with lovenox in the past but given recurrent issues with severe anemia and previous GI bleeding (addendum: of note also noted to have had left hip hematoma 3 days prior to recent admission this month) , they plan to just have patient hold coumadin for 3 days before the procedure (They will check INR day before the procedure and fax results to Dr. Mckeon's office. I provided them with Dr. Mckeon's phone numbers) and will not require bridging. They plan to have patient take the last dose of coumadin on February 02 and recheck INR post-op with plans to restart coumadin same day after the procedure. They will coordinate with Dr. Mckeon if he is okay with coumadin immediately post-op. Dr. Mendoza informed me that they will manage the pre-op and post-op anticoagulation, monitor patient during that time and will inform the patient on the plan. Direct number to Dr. Mendoza's office is [phone] (Kandy is Dr. Mendoza's nurse). Will forward this information as well to Dr. Mckeon. I will away on vacation starting February 04 and will be back February 25. Dr. Kinza Rodriguez will cover me for any patient-related questions between February [address] Roger Pugh from February 10 to . I called the patient and updated her on the above plan and she knows that she will hear from Dr. Mendoza's office regarding periop bridging. Aware of risk/befit under these circumstances. She is appreciative of the plan and verbalized understanding. ADDENDUM: January 23, 2018 Dr. Mckeon acknowledged apove plans. SIGNATURE: Teena Sue MD, FACP, PATIENT NAME: Emani Louis DATE OF SERVICE/OFFICE VISIT: January 21, 2018 Previous Version Shaan Pryor 01/21/2018 12:05 PM Signed Emani Louis is a 77 year old female here today for visit in [facility] Referring Surgeon: Dr. Mckeon Date of Surgery: 02/06/2018 Planned Surgery/Procedure: COLONOSCOPY Allergies have been reviewed and verified. They include the following: Ambien [Zolpidem Tartrate]; Ativan [Lorazepam]; Mobic [Meloxicam]; Pamelor [Nortriptyline Hcl] Social History Substance Use Topics - Smoking status: Current Every Day Smoker Packs/day: 2.00 Years: 55.00 Types: Cigarettes - Smokeless tobacco: Never Used - Alcohol use No Medications reviewed and updated: Yes Shaan Sue MD, FACP, 01/21/2018 9:53 AM Addendum [facility] Patient Instructions for Surgery FOOD INSTRUCTIONS: Nothing to eat or drink after midnight before your procedure MEDICATION INSTRUCTIONS: Prior to Surgery: Do not take the following medications for 7 days prior to surgery: - any NSAID's (e.g. Motrin, Aleve, Arthrotec, Naproxen,etc) - any herbal preparations - Aspirin or aspirin containing products Do not take any Vitamin E / multivitamins for 10-14 days before surgery You are allowed to take Tylenol if needed until the day of surgery. If you are asked to hold coumadin for your colonoscopy by your surgeon, then you will need to take lovenox while off coumadin. Typically, coumadin is held 5 days before a procedure.. We will need to determine this first with your surgeon. MEDICATION INSTRUCTIONS: Day/Morning of Surgery: The following medications should be taken with sips of water: protonix, levothyroxine Tylenol, if needed for pain, can be taken on morning of surgery. Use your inhalers as needed / prescribed on day of surgery. Bring your inhaler with you to the hospital. ANTICOAGULATION BRIDGING INSTRUCTIONS (only if your surgeon wants you to be off coumadin for the COLON BALLOON ENTEROSC GEN ANES then you can follow these following instructions. We can then prescribe your lovenox if you need to be off coumadin for surgery or coordinate this with your coumadin clinic) Please follow the directions below for your Coumadin and Lovenox management prior to surgery. Before Surgery: 1) Take last dose of Coumadin on February 01 2) Start Lovenox injections on morning of February 03 3) Continue Lovenox injections every 12 hours with last dose on morning of February 05 Surgery Date/Colonoscopy: 02/06/18 After Surgery: ? Your surgeon will advise you on the right time to restart both Coumadin and Lovenox. ? Please inform your Anticoagulation / Coumadin Monitoring Clinic regarding the above schedule. ? Please note that Lovenox injections are CRITICAL prior to surgery. You should fill the prescriptions as soon as possible and start taking them as advised. If you are not able to obtain this medication on time due to any reason or have additional questions about Lovenox please contact Teena Sue MD, FACP, M Seek medical help right away for any evidence of bleeding. DIABETES MANAGEMENT INSTRUCTIONS: Eat a usual diet until the day prior to surgery unless indicated by your surgeon/physician. If your blood sugar is below 70 mg/dl at any time, treat with ? cup of apple juice or sage dulce maria, or 4 glucose tabs or 1 tube of oral glucose gel. MEDICATION INSTRUCTIONS: Prior to Surgery: ? Continue all diabetic pills as scheduled including the evening prior to surgery. ? Continue your current injectable medications (eg: insulin, symlin, byetta, etc) as scheduled INCLUDING EVENING AND BEDTIME. MEDICATION INSTRUCTIONS: Day/Morning of Surgery: ? Do not take your Diabetic pills. ? Do not take any injections like symlin, byetta or mealtime insulin. If you have any questions or concerns regarding today's visit please do not hesitate to contact the [facility] at [phone] or [phone], ext [phone]. Signature: Teena Sue MD, FACP, [facility] Date: January 21, 2018 Previous Version [place] ABS GR + CBC Collected: 12/17/2017 Status: F Source: [place] 2:09 PM [facility] REPOSITORY TYPE CODE TESTS RESULT OUT OF REFERENCE UNITS RANGE LAB WWBC 3.70-11.00 k/uL [place] WBC 4.26 LAB WRBC 3.90-5.20 m/uL Low [place] RBC 3.12 LAB WHGB 11.5-15.5 g/dL Low [place] Hemoglobin 9.3 LAB WHCT 36.0-46.0 % Low [place] Hematocrit 30.3 LAB WMCV 80.0-100.0 fL [place] MCV 97.1 LAB WMCH 26.0-34.0 pg [place] MCH 29.8 LAB WMCHC 30.5-36.0 g/dL [place] MCHC 30.7 LAB WRDW 11.5-15.0 % [place] High RDW 18.2 LAB WPLT 150-400 k/uL Low [place] Platelet Cnt 95 LAB WMPV 9.0-12.7 fL [place] MPV 10.8 Result Comment: Test performed at: [facility] [place], [address] [place] [address]. LAB ABGRAN 1.45-7.50 k/uL Absol Gran 3.39 Count IRON AND TIBC Collected: 12/17/2017 Status: F Source: [place] 2:08 PM [facility] REPOSITORY TYPE CODE TESTS RESULT OUT OF REFERENCE UNITS RANGE LAB IRN 41-186 ug/dL Iron 48 LAB TIBC 232-386 ug/dL TIBC 281 LAB SAT 15-57 % Transferrin Saturatn 17 Performed By: #### IRON, FERR #### [facility] [employer] [address] [place], [place] [address] FERRITIN Collected: 12/17/2017 Status: F Source: [place] 2:08 PM [facility] REPOSITORY TYPE CODE TESTS RESULT OUT OF REFERENCE UNITS RANGE LAB FERR 14.7-205.1 ng/mL Ferritin 77.5 Performed By: #### IRON, FERR #### [facility] [address] [place], [place] [address] CNPN Observed: 12/17/2017 Status: COMPLETED Source: [place] 12:00 AM [facility] REPOSITORY Telephone (GASTMN) EMANI LOUIS ([id number]) 1940 F TXT Date Time Provider Department 12/17/17 SILVINO HU GASTMN During your visit today, we recorded the following information about you: Silvino Hu 12/17/2017 4:04 PM S[address] Inform the CT e is neg. We are concerned about a lesion in the end of the small bowel questionably seen on Capsule. Will need to zachariah retrograde ballon enteroscopy. Yamila Draper Lpn, LPN 12/18/2017 10:[address] type and screen order place impact order patient transferred to scheduling on Q3 for procedure Silvino Hu 12/20/2017 7:30 AM Signed Orders entered Yamila Draper Lpn, LPN 12/20/2017 8:49 AM Signed my chart message sent to patient to have type and screen drawn. patient scheduled for impact YAMILA DRAPER LPN Allergies As of Date: 12/17/2017 Noted Allergy Reaction AMBIEN (ZOLPIDEM TARTRATE) 09/06/2005 16 - Unknown ATIVAN (LORAZEPAM) 09/06/2005 14 - Other: See Comments Comments: just didn't work MOBIC (MELOXICAM) 09/06/2005 16 - Unknown PAMELOR (NORTRIPTYLINE HCL) 09/06/2005 16 - Unknown Date Reviewed: 12/17/2017 Reviewed by: Concepción Lang (Rn), RN - Fully Assessed Reason for Visit: Results [95] Primary Visit Diagnosis:Lower GI bleed [K92.2] Order(s):COLON BALLOON ENTEROSC GEN ANES [2012198] Order #: [id number] FUTURE Prescriptions as of 12/17/2017 Sig: FOLIC ACID 1 MG TABLET Take 1 tablet by mouth once d* POTASSIUM CHLORIDE ER 20 MEQ * Take 1 tablet by mouth once d* WARFARIN 2.5 MG TABLET Take 1 tablet by mouth. From * X PANTOPRAZOLE 40 MG TABLET,DEL* TAKE ONE TABLET BY MOUTH EVER* ATORVASTATIN 20 MG TABLET Take 1 tablet by mouth once d* LANCETS Use as instructed 3 to 4 TIME* VENLAFAXINE 37.5 MG TABLET Take 1 tablet by mouth twice * BLOOD SUGAR DIAGNOSTIC, DRUM-* Test blood sugar(s) 4 times d* BLOOD-GLUCOSE METER, DRUM-TYP* Accu-Check Compact Plus Meter* LEVOTHYROXINE 50 MCG TABLET TAKE ONE TABLET BY MOUTH EVER* HYDROCODONE 5 MG-ACETAMINOPHE* Take 1 tablet by mouth every * MAGNESIUM 250 MG TABLET Take 250 mg by mouth once lynette* INSULIN GLARGINE (U-100) 100 * Inject 35 Units subcutaneousl* INSULIN LISPRO (U-100) 100 UN* Inject 15 Units subcutaneousl* PEN NEEDLE, DIABETIC 31 GAUGE* USE ONE NEEDLE FOR EACH DOSE TRAZODONE 150 MG TABLET Take 1-2 tablets by mouth lynette* FUROSEMIDE 20 MG TABLET 20 mg every other day. Daily CYANOCOBALAMIN (VIT B-12) 1,0* Take 1 tablet by mouth once d* FERROUS SULFATE 325 MG (65 MG* Take 1 tablet by mouth three * ALBUTEROL SULFATE HFA 90 MCG/* Inhale 2 Puffs as instructed * TIOTROPIUM BROMIDE 2.5 MCG/AC* Inhale 2 Puffs as instructed * DOCUSATE SODIUM 100 MG CAPSULE Take 1 capsule by mouth twice* CHOLECALCIFEROL (VITAMIN D3) * Take 1,000 Units by mouth onc* Problem List As Of Date 12/17/2017 Noted Resolved Asthma [J45.909] INVALID FOR* ESOPHAGEAL REFLUX [K21.9] INVALID FOR* Mixed hyperlipidemia [E78.2] INVALID FOR* LUMBAGO [M54.5] INVALID FOR* Osteoarthrosis, unspecified whether generalized* Fibromyalgia [M79.7] More... 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 Heart Valve Replaced by Other Means [Z95.4] INVALID FOR* More... Cardiac pacemaker in situ [Z95.0] INVALID FOR* More... Acute kidney failure with lesion of tubular nec*INVALID FOR*01/10/2013 More... 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 Hypothyroidism [E03.9] INVALID FOR* THROMBOCYTOPENIA NOS [D69.6] INVALID FOR* COPD (chronic obstructive pulmonary disease) (H*INVALID FOR* Chronic kidney disease, stage III (moderate) [N*INVALID FOR* PSVT (paroxysmal supraventricular tachycardia) *INVALID FOR*05/09/2012 More... Iron deficiency [E61.1] INVALID FOR*02/03/2013 Anemia in chronic renal disease [N18.9, D63.1] INVALID FOR* Infected cat bite [W55.01XA] INVALID FOR*05/09/2012 Atrial fibrillation (HCC) [I48.91] INVALID FOR* Adenomatous colon polyp [D12.6] INVALID FOR* Tobacco use disorder [F17.200] INVALID FOR* Cholelithiasis [K80.20] INVALID FOR*03/04/2014 Unspecified pleural effusion, loculated, right *INVALID FOR*03/04/2014 Dizziness and giddiness [R42] INVALID FOR* Carotid artery disease without cerebral infarct*INVALID FOR* Other specified hypotension [I95.89] INVALID FOR* Transfusion history [Z92.89] INVALID FOR* More... Sleep apnea [G47.30] Moderate to severe pulmonary hypertension (HCC)*INVALID FOR* H/O mitral valve replacement [Z95.2] INVALID FOR* Type 2 diabetes mellitus with stage 3 chronic k*INVALID FOR* Vitamin D deficiency [E55.9] INVALID FOR* Anticoagulant long-term use [Z79.01] INVALID FOR* Iron deficiency anemia due to chronic blood los*INVALID FOR* Gastrointestinal hemorrhage [K92.2] INVALID FOR* Encounter Status:Closed by YAMILA DRAPER on 12/18/17 CT ABD/PEL WO IVCON Observed: 12/14/2017 Status: F Source: [place] 3:09 PM [facility] OTHER [facility] REPOSITORY * * *Final Report* * * DATE OF EXAM: Dec 14 2017 3:09PM [facility] [place] ABD/PEL WO IVCON / PROCEDURE REASON: R10.84-Generalized abdominal pain * * * * Physician Interpretation * * * * EXAMINATION: CT ABDOMEN AND PELVIS WITHOUT IV CONTRAST CLINICAL HISTORY: Generalized abdominal pain TECHNIQUE: Non-IV contrast imaging of the abdomen and pelvis was performed using standard technique, scanning from just above the dome of the diaphragm to the symphysis pubis. Unenhanced imaging is limited for the evaluation of some intra-abdominal and pelvic pathology. MQ: [id number]_3 Contrast: IV: None Oral: 900 ml of 50ML Omnipaque [address] Radiation dose: Integrated Dose-length product (DLP) for this visit = 350.55 mGy*cm. CT Dose Reduction Employed: Automated exposure control(AEC) and iterative recon COMPARISON: None. RESULT: Abdomen / Pelvis: Liver: Liver is enlarged measuring 21 cm extending below the pelvic brim. A small calcification is seen in the right lobe of the liver related to remote infectious or inflammatory process. Biliary: The gallbladder demonstrates small gallstones. Spleen: The spleen measures 14 x 14 x 7.4 cm which is mildly enlarged. Pancreas: Unremarkable. Adrenals: No mass. Kidneys: No calculus, hydronephrosis or finding to suggest a cyst or mass in the unenhanced kidney. GI Tract: No bowel dilation. Sigmoid diverticuli are noted without evidence of diverticulitis. Lymph Nodes: No lymphadenopathy. Mesentery/peritoneum: No ascites. Retroperitoneum: No mass. Vasculature: Extensive atherosclerosis is seen in the aorta without evidence of aneurysm. Pelvis: No mass or ascites. Vascular calcifications are seen adjacent to the uterus likely related to arcuate artery calcifications. Bones/Soft Tissues: No acute abnormality. Lower thorax: A small parapneumonic fluid collection is noted on the right with small amount of adjacent right basilar atelectasis. Also noted is pleural thickening along the anterior lateral margin of the right lung base. IMPRESSION: 1. Atherosclerosis 2. Sigmoid diverticulosis 3. Small parapneumonic fluid collection as well as right anterolateral pleural thickening at the right lung base. 4. No evidence of an acute intra-abdominal process Iv Technician: PSCB Transcribe Date/Time: Dec 15 2017 1:50P Dictated by : RADHIKA GARNICA MD This examination was interpreted and the report reviewed and electronically signed by: RADHIKA GARNICA MD on Dec 15 2017 1:54PM EST [id number] COMP METABOLIC PANEL Collected: 12/13/2017 Status: F Source: [place] 7:55 AM [facility] REPOSITORY TYPE CODE TESTS RESULT OUT OF REFERENCE UNITS RANGE LAB TP 6.3-8.0 g/dL Low Protein, Total 6.2 LAB ALB 3.9-4.9 g/dL Low Albumin 3.6 LAB CA 8.5-10.2 mg/dL Low Calcium, Total 8.2 LAB TBIL 0.2-1.3 mg/dL Bilirubin, Total 0.3 LAB ALKP 32-117 U/L Alkaline Phosphatase 64 LAB AST 13-35 U/L Low AST 9 LAB GLU 74-99 mg/dL Glucose High 169 Result Comment: The [place] Diabetes Association (ADA) provides guidance for cutoff values for fasting glucose and random glucose. The ADA defines fasting as no caloric intake for at least 8 hours. Fas ting plasma glucose results between 100 to 125 mg/dL indicate increased risk for diabetes (prediabetes). Fasting plasma glucose results greater than or equal to 126 mg/dL meet the criteria for diagnosis of diabetes. In the absence of unequivocal hyperglycemia, results should be confirmed by repeat testing. In a patient with classic symptoms of hyperglycemia or hyperglycemic crisis, random plasma glucose results greater than or equal to 200 mg/dL meet the criteria for diagnosis of diabetes. Reference: Standards of Medical Care in Diabetes 2016, [place] [employer] Association. Diabetes Care. 2016.39(Suppl 1). LAB BUN 7-21 mg/dL BUN High 28 LAB CRET 0.58-0.96 mg/dL Creatinine High 1.84 LAB NA 136-144 mmol/L Sodium 140 LAB K 3.7-5.1 mmol/L Potassium 4.5 LAB CL 97-105 mmol/L Chloride 104 LAB CO2 22-30 mmol/L CO2 24 LAB AGAP 9-18 mmol/L Anion Gap 12 LAB ALT 7-38 U/L ALT 8 LAB GFRAA eGFR- Amer. 32 LAB GFRNAA . eGFR-All Other Races 27 Result Comment: eGFR (Estimated GFR) Units of measure: mL/min/1.73 meters squared eGFR is derived from the reexpressed MDRD Study equation using the following parameters: serum creatinine, age, gender and race. The creatinine assay has been calibrated to be traceable to IDMS. An eGFR <60 mL/min/1.73m2 for >3 months is consistent with chronic kidney disease. Refer to KDOQI guidelines for clinical interpretation. In patients with unstable renal function, e.g. those with acute kidney injury, the eGFR may not accurately reflect actual GFR. Performed By: #### CMP, IRON, FERR #### [facility] [address] [address] IRON AND TIBC Collected: 12/13/2017 Status: F Source: [place] 7:55 AM [facility] REPOSITORY TYPE CODE TESTS RESULT OUT OF REFERENCE UNITS RANGE LAB IRN 41-186 ug/dL Low [place] 33 LAB TIBC 232-386 ug/dL TIBC 286 LAB SAT 15-57 % Low Transferrin Saturatn 12 Performed By: #### CMP, IRON, FERR #### [facility] [address] [place], [place] [id number] FERRITIN Collected: 12/13/2017 Status: F Source: [place] 7:55 AM [facility] REPOSITORY TYPE CODE TESTS RESULT OUT OF REFERENCE UNITS RANGE LAB FERR 14.7-205.1 ng/mL Ferritin 74.5 Performed By: #### CMP, IRON, FERR #### [facility] [address] [place], [place] [id number] [place] ABS GR + CBC Collected: 12/13/2017 Status: F Source: [place] 7:54 AM [facility] REPOSITORY TYPE CODE TESTS RESULT OUT OF REFERENCE UNITS RANGE LAB WWBC 3.70-11.00 k/uL [place] WBC 4.25 LAB WRBC 3.90-5.20 m/uL Low [place] RBC 2.08 LAB WHGB 11.5-15.5 g/dL Low [place] Hemoglobin 6.4 LAB WHCT 36.0-46.0 % Low [place] Hematocrit 21.2 LAB WMCV 80.0-100.0 fL [place] High MCV 101.9 LAB WMCH 26.0-34.0 pg [place] MCH 30.8 LAB WMCHC 30.5-36.0 g/dL Low [place] MCHC 30.2 LAB WRDW 11.5-15.0 % [place] High RDW 17.9 LAB WPLT 150-400 k/uL Low [place] Platelet Cnt 91 LAB WMPV 9.0-12.7 fL [place] MPV 10.7 Result Comment: Test performed at: [address] [place] [address]. LAB ABGRAN 1.45-7.50 k/uL Absol Gran 3.38 Count TYPE AND SCREEN Collected: 12/13/2017 Status: F Source: [place] 7:45 AM [facility] REPOSITORY Order Comment: PRETRANSFUSION HGB = 6.4 HCT = 21.2 PERFORMED AT [facility] CMV NEG?* N Give When? [id number] Irradiated? N Leukodepleted? Y Reason for Type AND Screen/Red Cells: ANEMIA TYPE CODE TESTS RESULT OUT OF RANGE REFERENCE UNITS LAB B10.0800 A Normal BLOOD TYPE GEL POSITIVE LAB B100.4000 Normal Antibody NEGATIVE Screen Performed By: #### B101.7450 #### [facility] [address] [place], [address] Collected: 12/13/2017 Status: F Source: [place] 7:45 AM [facility] REPOSITORY TYPE CODE TESTS RESULT OUT OF REFERENCE UNITS RANGE LAB U100.0000 [id number] TRANSFUSED PRODUCT: T AND S with Crossmatch, Red Cells COUNT: 3 Performed By: #### U100.0000 #### [facility] - refer to report for specific site PACEMAKER CHECK Observed: 12/11/2017 Status: F Source: [place] 10:23 AM [facility] REPOSITORY [facility] [address] [place] [address] Pacemaker Check Date of Service: 11/27/17 1110 MR#: [id number] Acct: [id number] Name: EMANI LOUIS Rep #: [id number] : 1940 From: Angélica Mona Age/Sex: 77/F Location: [facility] [place] [place] Status: Signed Comments Summary Comments: Dual Chamber Pacemaker Evaluation: Interrogation shows 2.2k MS episodes, 85% total time or 17.8 days, max duration of episode 2.5 day and no VHR episodes since 11/06/17. Left pectoral pocket/incision w/o s/s of infection or erosion. Pt offers no cardiac complaints. Presenting rhythm shows atrial flutter with intermittent ventricular paced @ 100 bpm. SCHOOL TRAFFIC GUARD=8%, Battery longevity estimated at <0.5yrs. Lead impedances, sensing and vent. pace/sense threshold remain stable. Unable to check atrial threshold d/t atrial flutter. Atrial impedance remains consistently high. No parameter changes made. Counters cleared. Next f/u appt scheduled for in 3 mos. Device Device Date Interviewed: 11/27/17 Follow-up Location: in office Interview Reason: routine follow up Business English Instructor: [id number] Systems Name: Altrua 40 Model: S403 Serial #: [id number] Implant Date: 07/31/08 Year(s): 9 Implant Physician: Dr. Addison Meyers/[facility] Patient Characteristics Atrial Indication: sick sinus syndrome Ejection fraction %: 65 to 70 (10/2015) By: Echo Underlying rhythm: Atrial flutter Pacemaker Dependent: No Device Characteristics Device: Dual Chamber Type: Pacemaker Remote Follow-Up: No Device Physical Exam Yes Incision well healed Leads Lead #1 Business English Instructor Lead 1: Guidant Model Lead 1: 4135 Serial# Lead 1: [id number] Date Implanted Lead 1: 07/31/08 Position Lead 1: RA Lead #2 Business English Instructor Lead 2: Guidant Model Lead 2: 4136 Serial# Lead 2: [id number] Date Implanted Lead 2: 07/31/08 Position Lead 2: RV Diagnostics Pacing % RA Pacin % RV Pacin Mode Switching Total # Episodes: 2,200 % Mode switched: 85 Arrhythmias Non-Sust Episodes: 0 Measurements Battery Magnet Rate (bmp): 90 Predicted Remaining Longevity (months or years): <6 mps RA Measurements Signal Amplitude (mV): 1.7 Impedance (Ohms): 1,690 RV Measurements Signal Amplitude (mV): 8.6 Impedance (Ohms): 1,690 Threshold Voltage: 0.8 @ PW(ms): 0.5 Alberto Settings Alberto Settings Pacemaker Mode DDDR Output/Sensing V/PW (ms) 2.0/0.6 2.0/0.5 Sensitivity RA RV LV Comments: Billing Codes PM Device Codes: PM Dev Prog Eval, Dual Assessment AND Plan Problems 1. Cardiac pacemaker in situ Z95.0 2. Sick sinus syndrome I49.5 3. Tachycardia-bradycardia syndrome I49.5 4. Typical atrial flutter I48.3 12/10/17 1321 <Electronically signed by Angélica Dunn > Date Angélica Dunn 12/11/17 1023<Electronically signed by Eddie Mendoza MD> Cosigner Signature: Date (if applicable) Eddie Mendoza MD CC: PROTHROMBIN TIME W/INR Collected: 12/06/2017 Status: F Source: [place] 10:25 AM [facility] REPOSITORY TYPE CODE TESTS RESULT OUT OF RANGE REFERENCE UNITS LAB L300.4150 11.7-14.9 SECONDS High PROTIME 33.9 LAB L300.4200 Normal INR 3.3 Performed By: #### L300.3900 #### [facility] [address] [place], [address] [place] ABS GR + CBC Collected: 12/06/2017 Status: F Source: [place] 9:00 AM [facility] REPOSITORY TYPE CODE TESTS RESULT OUT OF REFERENCE UNITS RANGE LAB WWBC 3.70-11.00 k/uL Low [place] WBC 3.27 LAB WRBC 3.90-5.20 m/uL Low [place] RBC 3.09 LAB WHGB 11.5-15.5 g/dL Low [place] Hemoglobin 9.5 LAB WHCT 36.0-46.0 % Low [place] Hematocrit 30.9 LAB WMCV 80.0-100.0 fL [place] MCV 100.0 LAB WMCH 26.0-34.0 pg [place] MCH 30.7 LAB WMCHC 30.5-36.0 g/dL [place] MCHC 30.7 LAB WRDW 11.5-15.0 % [place] High RDW 16.6 LAB WPLT 150-400 k/uL Low [place] Platelet Cnt 99 LAB WMPV 9.0-12.7 fL [place] MPV 11.5 Result Comment: Test performed at: [facility], [address] [place] [address]. LAB ABGRAN 1.45-7.50 k/uL Absol Gran 2.64 Count PROGRESS Observed: 12/04/2017 Status: COMPLETED Source: [place] 4:10 PM [facility] [place] REPOSITORY HNO ID: [id number] Author: Kodak Muñoz Service: (none) Author Type: Physician Type: Progress Notes Filed: 12/04/2017 11:39 PM Note Text: This note was created using [employer]. Subjective Patient presents with: Yearly Exam HPI: Emani Louis is a 77 year old female here for above. She had been dealing with stressors from her chronic illnesses and multiple doctors appointments. She followed with Dr. Garay for hematology, Dr. Howard for gastroenterology, Dr. Mendoza for cardiology. She had chronic hypotension, generally well tolerated. Despite anemia and multiple transfusions, she was maintained on chronic anticoagulation due to her cardiac issues. Chronic pains were stable, and hydrocodone was used rarely. Insomnia was fair, with intake of generally 150 mg at bedtime. With increase in depression, she was considering taking the full 300 mg at bedtime, in addition to her venlafaxine. COPD and asthma were stable. Atrial fibrillation and congestive heart failure were controlled. Lipids and DM were controlled. PAST MEDICAL HISTORY Diagnosis Date - Acute kidney failure with lesion of tubular necrosis (HCC) 08/19/[address] Tobias. - Adenomatous colon polyp 08/30/2012 - Anemia in chronic kidney disease(285.21) 08/31/2011 - Atrial fibrillation (HCC) 05/09/2012 - Calculus of ureter 03/24/2008 - Cardiac pacemaker in situ 08/17/2008 Sick sinus syndrome. - Cholelithiasis 05/26/2013 - Chronic kidney disease, stage III (moderate) 09/23/2009 - Chronic rhinitis - Congestive heart failure, unspecified 07/24/2008 Mitral insufficiency. - DDD (degenerative disc disease) - Diabetes mellitus ([facility]) - Diverticulosis of colon (without mention of hemorrhage) 10/17/05 - Esophageal reflux 08/15/2005 - Fibromyalgia - Generalized osteoarthrosis, unspecified site - Heart valve replaced by other means 08/17/2008 #25, [facility]. Mitral valve. - Iron deficiency 08/17/2011 - Lumbago 08/15/2005 - Melena - Moderate to severe pulmonary hypertension 09/21/2016 - Myalgia and myositis, unspecified - Other and unspecified hyperlipidemia 08/15/2005 - PSVT (paroxysmal supraventricular tachycardia) ([facility]) 04/10/2011 - Sleep apnea - Type II or unspecified type diabetes mellitus without mention of complication, not stated as uncontrolled 08/15/2005 - Unspecified asthma(493.90) 08/15/2005 - Unspecified cardiovascular disease heart cath 12/15 PAST SURGICAL HISTORY Procedure Laterality Date - CAPSULE ENDOSCOPY SMALL BOWEL 12/03/2017 - COLONOSCOP W/ OR W/O [facility] SPEC 10/17/05 - COLONOSCOP W/ OR W/O [facility] SPEC 08/25/2009 Colonoscopy - COLONOSCOP W/ OR W/O [facility] SPEC 10/17/2012 Colonoscopy - COLONOSCOPY 11/26/2017 - EGD 01/16/2005 - EGD W/O OR W/BRUSH/WASH 08/25/2009 EGD - EGD W/O OR W/BRUSH/WASH 04/05/15 EGD inpt [facility] - EGD W/O OR W/BRUSH/WASH 10/30/2016 EGD - INSER DIAMOND PACER XVENOUS ATRIAL Perm pacemaker insert - LEFT HEART CATH,PERCUTANEOUS Cardiac cath, L heart - LIGATE FALLOPIAN TUBE Tubal ligation - PAST SURGICAL HISTORY OF cervical conization - PAST SURGICAL HISTORY OF 01/03/05 Heart Cath - PAST SURGICAL HISTORY OF Carpal tunnel surgery b/l wrists - PERICARDIAL FINE NEEDLE ASPIRATION 2008 Pericardial Window - REPLACEMENT OF MITRAL VALVE Mitral valve replacement, [facility] #[facility]. 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 Oxygen 3 LPM at HS and with exertion. Has cane, wheelchair as needed. No safety concerns. Camping trailer during summer. Review of Systems Constitutional: Positive for fatigue. Negative for appetite change, chills, diaphoresis, fever and unexpected weight change. HENT: Negative. Eyes: Negative. Respiratory: Positive for cough, shortness of breath and wheezing. Negative for chest tightness. Cardiovascular: Negative. Gastrointestinal: Negative. Genitourinary: Negative. Musculoskeletal: Positive for arthralgias and back pain. Skin: Negative. Neurological: Positive for dizziness, weakness and light-headedness. Negative for tremors, syncope and headaches. Psychiatric/Behavioral: Positive for dysphoric mood. The patient is nervous/anxious. Current Outpatient Prescriptions: potassium chloride ER (K-DUR, KLOR-CON) 20 mEq tablet Take 1 tablet by mouth once daily. From outside pharmacy. warfarin (COUMADIN) 2.5 mg tablet Take 1 tablet by mouth. From outside pharmacy. pantoprazole DR (PROTONIX) 40 mg tablet TAKE ONE TABLET BY MOUTH EVERY DAY atorvastatin (LIPITOR) 20 mg tablet Take 1 tablet by mouth once daily. Lancets lancets Use as instructed 3 to 4 TIMES DAILY insulin dep E 11.9 Blood Sugar Diagnostic, Drum (ACCU-CHEK COMPACT TEST) strp Test blood sugar(s) 4 times daily. Dx: Type 2 DM - Uncontrolled E11.65 Insulin: Yes folic acid 1 mg tablet Take 1 tablet by mouth once daily. Blood-Glucose Meter, Drum-type (ACCU-CHEK COMPACT PLUS CARE) kit Accu-Check Compact Plus Meter Diagnosis: Type 2 DM - Uncontrolled E11.65 levothyroxine (SYNTHROID) 50 mcg tablet TAKE ONE TABLET BY MOUTH EVERY DAY HYDROcodone-acetaminophen (NORCO) 5-325 mg per tablet Take 1 tablet by mouth every 8 hours as needed for Pain. Magnesium 250 mg tab Take 250 mg by mouth once daily. insulin glargine (LANTUS SOLOSTAR) 100 unit/mL (3 mL) inpn Inject 35 Units subcutaneously daily at bedtime. For blood glucose >150 Insulin Lispro, Human, (HUMALOG KWIKPEN) 100 unit/mL inpn Inject 15 Units subcutaneously twice daily with meals for blood glucose >140. Add 2 units for every 50 of glucose >150. insulin needles, DISPOSABLE, (PEN NEEDLE) 31 gauge x 5/16 ndle USE ONE NEEDLE FOR EACH DOSE traZODone (DESYREL) 150 mg tablet Take 1-2 tablets by mouth daily at bedtime. furosemide (LASIX) 20 mg tablet 20 mg every other day. Daily cyanocobalamin (VITAMIN B-12) 1,000 mcg tab Take 1 tablet by mouth once daily. ferrous sulfate 325 mg (65 mg iron) EC tablet Take 1 tablet by mouth three times daily with meals. albuterol HFA (PROVENTIL HFA, VENTOLIN HFA) 90 mcg/actuation inhaler Inhale 2 Puffs as instructed every 6 hours as needed for Wheezing/Shortness of Breath. tiotropium bromide (SPIRIVA RESPIMAT) 2.5 mcg/actuation mist Inhale 2 Puffs as instructed once daily. Inhale two puffs once daily. docusate sodium (COLACE) 100 mg capsule Take 1 capsule by mouth twice daily as needed for Constipation. Cholecalciferol, Vitamin D3, (VITAMIN D) 1,000 unit ORAL Tab Take 1,000 Units by mouth once daily. venlafaxine (EFFEXOR) 37.5 mg tablet Take 1 tablet by mouth twice daily. No current facility-administered medications for this visit. Objective BP (!) 63/42 (BP Site: Right Arm, BP Position: Sitting, BP Cuff Size: Small Adult) Pulse 88 Temp 36.3 ?C (97.4 ?F) (Left Tympanic) Resp 20 Ht 156.8 cm (5' 1.75) Wt 62.1 kg (136 lb 12.8 oz) BMI 25.22 kg/m2 Physical Exam Constitutional: She is oriented to person, place, and time. She appears cachectic. No distress. HENT: Head: Normocephalic. Nose: Nose normal. Mouth/Throat: Oropharynx is clear and moist. Eyes: Conjunctivae and EOM are normal. Pupils are equal, round, and reactive to light. No scleral icterus. Neck: No JVD present. No thyromegaly present. Cardiovascular: S1 normal and S2 normal. An irregular rhythm present. Exam reveals no gallop. Murmur heard. Systolic murmur is present with a grade of 2/6 LLSB Pulmonary/Chest: No accessory muscle usage. No respiratory distress. She has no decreased breath sounds. She has wheezes. She has rhonchi. She has no rales. Abdominal: Soft. Bowel sounds are normal. She exhibits no distension and no mass. Musculoskeletal: Normal range of motion. She exhibits no edema or tenderness. Lymphadenopathy: She has no cervical adenopathy. Neurological: She is alert and oriented to person, place, and time. No cranial nerve deficit or sensory deficit. General weakness. Feet: Shoes and socks removed, No deformities, ulcers, calluses, trace DP distal pulses and sensitive to 10 gm monofilament. Nails yellowish, thickened, deformed. CMP: Glucose 116 10/08/2017 BUN 18 10/08/2017 Creatinine, Whole Blood (iSTAT) 1.55 10/08/2017 Sodium 143 10/08/2017 Potassium 4.3 10/08/2017 Chloride 108 10/08/2017 CO2 24 10/08/2017 Protein, Total 7.0 10/08/2017 Albumin 4.0 10/08/2017 Calcium 9.2 10/08/2017 Alkaline Phosphatase 71 10/08/2017 Bilirubin, Total 0.5 10/08/2017 AST 9 10/08/2017 ALT 8 10/08/2017 Cholesterol, Total (mg/dL) Date Value 11/29/2017 109 06/02/2016 103 HDL Cholesterol (mg/dL) Date Value 11/29/2017 32 06/02/2016 22 LDL Cholesterol (mg/dL) Date Value 11/29/2017 56 06/02/2016 56 Triglyceride (mg/dL) Date Value 11/29/2017 105 06/02/2016 124 Hemoglobin A1C (%) Date Value 11/29/2017 4.7 09/20/2016 5.6 ) Glucose meter data or log was reviewed. Range: FBS 104-141. Evening 134-225. Average: 144. Patient was testing BID. Higher frequency of testing needed: Yes, due to chronic anemia, A1C not reliable test . Assessment and Plan ASSESSMENT/PLAN: 1. Routine general medical examination at a health care facility - ICD9: V70.0, ICD10: Z00.00 (primary diagnosis) - Recommended regular aerobic exercise. - Fall precautions. 2. Type 2 diabetes mellitus with stage 3 chronic kidney disease, unspecified whether correction insulin use (HCC) - ICD9: 250.40, 585.3, ICD10: E11.22, N18.3 Controlled. - Continue current medications 3. Mixed hyperlipidemia - ICD9: 272.2, ICD10: E78.2 - good control - Continue current medication. 4. Depressive disorder - ICD9: 311, ICD10: F32.9 Fair. Patient declined referral or further additions to her medications. 5. Congestive heart failure, unspecified HF chronicity, unspecified heart failure type (HCC) - ICD9: 428.0, ICD10: I50.9 Compensated. 6. Chronic obstructive pulmonary disease, unspecified COPD type (HCC) - ICD9: 496, ICD10: J44.9 Stable. 7. Chronic kidney disease, stage III (moderate) - ICD9: 585.3, ICD10: N18.3 Stable. 8. Chronic atrial fibrillation (HCC) - ICD9: 427.31, ICD10: I48.2 Controlled, anticoagulated. 9. 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 Kodak Muñoz MD CNOV Observed: 12/04/2017 Status: COMPLETED Source: [place] 3:00 PM [facility] REPOSITORY Office Visit (INTMWS) EMANI LOUIS ([id number]) 1940 F TXT Date Time Provider Department 12/04/17 3:00 PM KODAK MUÑOZ INTJOE During your visit today, we recorded the following information about you: Temperature Pulse Respiration Blood pressure 97.4 degrees 88/minute 20/minute 63/42 Weight Height 62.1 kg 1.568 m Kodak Muñoz MD 12/04/2017 11:39 PM Addendum This note was created using NoteWriter. Subjective Patient presents with: Yearly Exam HPI: Emani Louis is a 77 year old female here for above. She had been dealing with stressors from her chronic illnesses and multiple doctors appointments. She followed with Dr. Garay for hematology, Dr. Howard for gastroenterology, Dr. Mendoza for cardiology. She had chronic hypotension, generally well tolerated. Despite anemia and multiple transfusions, she was maintained on chronic anticoagulation due to her cardiac issues. Chronic pains were stable, and hydrocodone was used rarely. Insomnia was fair, with intake of generally 150 mg at bedtime. With increase in depression, she was considering taking the full 300 mg at bedtime, in addition to her venlafaxine. COPD and asthma were stable. Atrial fibrillation and congestive heart failure were controlled. Lipids and DM were controlled. PAST MEDICAL HISTORY Diagnosis Date - Acute kidney failure with lesion of tubular necrosis (HCC) 08/19/[address] Tobias. - Adenomatous colon polyp 08/30/2012 - Anemia in chronic kidney disease(285.21) 08/31/2011 - Atrial fibrillation (HCC) 05/09/2012 - Calculus of ureter 03/24/2008 - Cardiac pacemaker in situ 08/17/2008 Sick sinus syndrome. - Cholelithiasis 05/26/2013 - Chronic kidney disease, stage III (moderate) 09/23/2009 - Chronic rhinitis - Congestive heart failure, unspecified 07/24/2008 Mitral insufficiency. - DDD (degenerative disc disease) - Diabetes mellitus (HCC) - Diverticulosis of colon (without mention of hemorrhage) 10/17/05 - Esophageal reflux 08/15/2005 - Fibromyalgia - Generalized osteoarthrosis, unspecified site - Heart valve replaced by other means 08/17/2008 #25, [facility]. Mitral valve. - Iron deficiency 08/17/2011 - Lumbago 08/15/2005 - Melena - Moderate to severe pulmonary hypertension 09/21/2016 - Myalgia and myositis, unspecified - Other and unspecified hyperlipidemia 08/15/2005 - PSVT (paroxysmal supraventricular tachycardia) ([facility]) 04/10/2011 - Sleep apnea - Type II or unspecified type diabetes mellitus without mention of complication, not stated as uncontrolled 08/15/2005 - Unspecified asthma(493.90) 08/15/2005 - Unspecified cardiovascular disease heart cath 12/15 PAST SURGICAL HISTORY Procedure Laterality Date - CAPSULE ENDOSCOPY SMALL BOWEL 12/03/2017 - COLONOSCOP W/ OR W/O [facility] SPEC 10/17/05 - COLONOSCOP W/ OR W/O [facility] SPEC 08/25/2009 Colonoscopy - COLONOSCOP W/ OR W/O [facility]RS SPEC 10/17/2012 Colonoscopy - COLONOSCOPY 11/26/2017 - EGD 01/16/2005 - EGD W/O OR W/BRUSH/WASH 08/25/2009 EGD - EGD W/O OR W/BRUSH/WASH 04/05/15 EGD inpt [facility] - EGD W/O OR W/BRUSH/WASH 10/30/2016 EGD - INSER DIAMOND PACER XVENOUS ATRIAL Perm pacemaker insert - LEFT HEART CATH,PERCUTANEOUS Cardiac cath, L heart - LIGATE FALLOPIAN TUBE Tubal ligation - PAST SURGICAL HISTORY OF cervical conization - PAST SURGICAL HISTORY OF 01/03/05 Heart Cath - PAST SURGICAL HISTORY OF Carpal tunnel surgery b/l wrists - PERICARDIAL FINE NEEDLE ASPIRATION 2008 Pericardial Window - REPLACEMENT OF MITRAL VALVE Mitral valve replacement, [facility]. 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 Oxygen 3 LPM at HS and with exertion. Has cane, wheelchair as needed. No safety concerns. Camping trailer during summer. Review of Systems Constitutional: Positive for fatigue. Negative for appetite change, chills, diaphoresis, fever and unexpected weight change. HENT: Negative. Eyes: Negative. Respiratory: Positive for cough, shortness of breath and wheezing. Negative for chest tightness. Cardiovascular: Negative. Gastrointestinal: Negative. Genitourinary: Negative. Musculoskeletal: Positive for arthralgias and back pain. Skin: Negative. Neurological: Positive for dizziness, weakness and light-headedness. Negative for tremors, syncope and headaches. Psychiatric/Behavioral: Positive for dysphoric mood. The patient is nervous/anxious. Current Outpatient Prescriptions: potassium chloride ER (K-DUR, KLOR-CON) 20 mEq tablet Take 1 tablet by mouth once daily. From outside pharmacy. warfarin (COUMADIN) 2.5 mg tablet Take 1 tablet by mouth. From outside pharmacy. pantoprazole DR (PROTONIX) 40 mg tablet TAKE ONE TABLET BY MOUTH EVERY DAY atorvastatin (LIPITOR) 20 mg tablet Take 1 tablet by mouth once daily. Lancets lancets Use as instructed 3 to 4 TIMES DAILY insulin dep E 11.9 Blood Sugar Diagnostic, Drum (ACCU-CHEK COMPACT TEST) strp Test blood sugar(s) 4 times daily. Dx: Type 2 DM - Uncontrolled E11.65 Insulin: Yes folic acid 1 mg tablet Take 1 tablet by mouth once daily. Blood-Glucose Meter, Drum-type (ACCU-CHEK COMPACT PLUS CARE) kit Accu-Check Compact Plus Meter Diagnosis: Type 2 DM - Uncontrolled E11.65 levothyroxine (SYNTHROID) 50 mcg tablet TAKE ONE TABLET BY MOUTH EVERY DAY HYDROcodone-acetaminophen (NORCO) 5-325 mg per tablet Take 1 tablet by mouth every 8 hours as needed for Pain. Magnesium 250 mg tab Take 250 mg by mouth once daily. insulin glargine (LANTUS SOLOSTAR) 100 unit/mL (3 mL) inpn Inject 35 Units subcutaneously daily at bedtime. For blood glucose ANDgt;150 Insulin Lispro, Human, (HUMALOG KWIKPEN) 100 unit/mL inpn Inject 15 Units subcutaneously twice daily with meals for blood glucose ANDgt;140. Add 2 units for every 50 of glucose ANDgt;150. insulin needles, DISPOSABLE, (PEN NEEDLE) 31 gauge x 5/16ANDquot; ndle USE ONE NEEDLE FOR EACH DOSE traZODone (DESYREL) 150 mg tablet Take 1-2 tablets by mouth daily at bedtime. furosemide (LASIX) 20 mg tablet 20 mg every other day. Daily cyanocobalamin (VITAMIN B-12) 1,000 mcg tab Take 1 tablet by mouth once daily. ferrous sulfate 325 mg (65 mg iron) EC tablet Take 1 tablet by mouth three times daily with meals. albuterol HFA (PROVENTIL HFA, VENTOLIN HFA) 90 mcg/actuation inhaler Inhale 2 Puffs as instructed every 6 hours as needed for Wheezing/Shortness of Breath. tiotropium bromide (SPIRIVA RESPIMAT) 2.5 mcg/actuation mist Inhale 2 Puffs as instructed once daily. Inhale two puffs once daily. docusate sodium (COLACE) 100 mg capsule Take 1 capsule by mouth twice daily as needed for Constipation. Cholecalciferol, Vitamin D3, (VITAMIN D) 1,000 unit ORAL Tab Take 1,000 Units by mouth once daily. venlafaxine (EFFEXOR) 37.5 mg tablet Take 1 tablet by mouth twice daily. No current facility-administered medications for this visit. Objective BP (!) 63/42 (BP Site: Right Arm, BP Position: Sitting, BP Cuff Size: Small Adult) Pulse 88 Temp 36.3 ?C (97.4 ?F) (Left Tympanic) Resp 20 Ht 156.8 cm (5' 1.75ANDquot;) Wt 62.1 kg (136 lb 12.8 oz) BMI 25.22 kg/m2 Physical Exam Constitutional: She is oriented to person, place, and time. She appears cachectic. No distress. HENT: Head: Normocephalic. Nose: Nose normal. Mouth/Throat: Oropharynx is clear and moist. Eyes: Conjunctivae and EOM are normal. Pupils are equal, round, and reactive to light. No scleral icterus. Neck: No JVD present. No thyromegaly present. Cardiovascular: S1 normal and S2 normal. An irregular rhythm present. Exam reveals no gallop. Murmur heard. Systolic murmur is present with a grade of 2/6 LLSB Pulmonary/Chest: No accessory muscle usage. No respiratory distress. She has no decreased breath sounds. She has wheezes. She has rhonchi. She has no rales. Abdominal: Soft. Bowel sounds are normal. She exhibits no distension and no mass. Musculoskeletal: Normal range of motion. She exhibits no edema or tenderness. Lymphadenopathy: She has no cervical adenopathy. Neurological: She is alert and oriented to person, place, and time. No cranial nerve deficit or sensory deficit. General weakness. Feet: Shoes and socks removed, No deformities, ulcers, calluses, trace DP distal pulses and sensitive to 10 gm monofilament. Nails yellowish, thickened, deformed. CMP: Glucose 116 10/08/2017 BUN 18 10/08/2017 Creatinine, Whole Blood (iSTAT) 1.55 10/08/2017 Sodium 143 10/08/2017 Potassium 4.3 10/08/2017 Chloride 108 10/08/2017 CO2 24 10/08/2017 Protein, Total 7.0 10/08/2017 Albumin 4.0 10/08/2017 Calcium 9.2 10/08/2017 Alkaline Phosphatase 71 10/08/2017 Bilirubin, Total 0.5 10/08/2017 AST 9 10/08/2017 ALT 8 10/08/2017 Cholesterol, Total (mg/dL) Date Value 11/29/2017 109 06/02/2016 103 HDL Cholesterol (mg/dL) Date Value 11/29/2017 32 06/02/2016 22 LDL Cholesterol (mg/dL) Date Value 11/29/2017 56 06/02/2016 56 Triglyceride (mg/dL) Date Value 11/29/2017 105 06/02/2016 124 Hemoglobin A1C (%) Date Value 11/29/2017 4.7 09/20/2016 5.6 ) Glucose meter data or log was reviewed. Range: FBS 104-141. Evening 134-225. Average: 144. Patient was testing BID. Higher frequency of testing needed: Yes, due to chronic anemia, A1C not reliable test . Assessment and Plan ASSESSMENT/PLAN: 1. Routine general medical examination at a health care facility - ICD9: V70.0, ICD10: Z00.00 (primary diagnosis) - Recommended regular aerobic exercise. - Fall precautions. 2. 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 - Continue current medications 3. Mixed hyperlipidemia - ICD9: 272.2, ICD10: E78.2 - good control - Continue current medication. 4. Depressive disorder - ICD9: 311, ICD10: F32.9 Fair. Patient declined referral or further additions to her medications. 5. Congestive heart failure, unspecified HF chronicity, unspecified heart failure type (HCC) - ICD9: 428.0, ICD10: I50.9 Compensated. 6. Chronic obstructive pulmonary disease, unspecified COPD type (HCC) - ICD9: 496, ICD10: J44.9 Stable. 7. Chronic kidney disease, stage III (moderate) - ICD9: 585.3, ICD10: N18.3 Stable. 8. Chronic atrial fibrillation (HCC) - ICD9: 427.31, ICD10: I48.2 Controlled, anticoagulated. 9. 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 Kodak Muñoz MD Referring Provider: SELF [[id number]] Allergies As of Date: 12/04/2017 Noted Allergy Reaction AMBIEN (ZOLPIDEM TARTRATE) 09/06/2005 16 - Unknown ATIVAN (LORAZEPAM) 09/06/2005 14 - Other: See Comments Comments: just didn't work MOBIC (MELOXICAM) 09/06/2005 16 - Unknown PAMELOR (NORTRIPTYLINE HCL) 09/06/2005 16 - Unknown Date Reviewed: 12/04/2017 Reviewed by: Marta Alba LPN - Fully Assessed Reason for Visit: Yearly Exam [187] Primary Visit Diagnosis:Routine general medical examination at a health care facility [Z00.00] Other Visit Diagnoses:Type 2 diabetes mellitus with stage 3 chronic kidney disease, unspecified whether correction insulin use (HCC) [E11.22, N18.3] Mixed hyperlipidemia [E78.2] Depressive disorder [F32.9] Congestive heart failure, unspecified HF chronicity, unspecified heart failure type (HCC) [I50.9] Chronic obstructive pulmonary disease, unspecified COPD type (HCC) [J44.9] Chronic kidney disease, stage III (moderate) [N18.3] Chronic atrial fibrillation (HCC) [I48.2] Anemia in stage 3 chronic kidney disease [N18.3, D63.1] Prescriptions as of 12/04/2017 Sig: POTASSIUM CHLORIDE ER 20 MEQ * Take 1 tablet by mouth once d* WARFARIN 2.5 MG TABLET Take 1 tablet by mouth. From * PANTOPRAZOLE 40 MG TABLET,DEL* TAKE ONE TABLET BY MOUTH EVER* ATORVASTATIN 20 MG TABLET Take 1 tablet by mouth once d* LANCETS Use as instructed 3 to 4 TIME* BLOOD SUGAR DIAGNOSTIC, DRUM-* Test blood sugar(s) 4 times d* FOLIC ACID 1 MG TABLET Take 1 tablet by mouth once d* BLOOD-GLUCOSE METER, DRUM-TYP* Accu-Check Compact Plus Meter* LEVOTHYROXINE 50 MCG TABLET TAKE ONE TABLET BY MOUTH EVER* HYDROCODONE 5 MG-ACETAMINOPHE* Take 1 tablet by mouth every * MAGNESIUM 250 MG TABLET Take 250 mg by mouth once lynette* INSULIN GLARGINE (U-100) 100 * Inject 35 Units subcutaneousl* INSULIN LISPRO (U-100) 100 UN* Inject 15 Units subcutaneousl* PEN NEEDLE, DIABETIC 31 GAUGE* USE ONE NEEDLE FOR EACH DOSE TRAZODONE 150 MG TABLET Take 1-2 tablets by mouth lynette* FUROSEMIDE 20 MG TABLET 20 mg every other day. Daily CYANOCOBALAMIN (VIT B-12) 1,0* Take 1 tablet by mouth once d* FERROUS SULFATE 325 MG (65 MG* Take 1 tablet by mouth three * ALBUTEROL SULFATE HFA 90 MCG/* Inhale 2 Puffs as instructed * TIOTROPIUM BROMIDE 2.5 MCG/AC* Inhale 2 Puffs as instructed * DOCUSATE SODIUM 100 MG CAPSULE Take 1 capsule by mouth twice* CHOLECALCIFEROL (VITAMIN D3) * Take 1,000 Units by mouth onc* VENLAFAXINE 37.5 MG TABLET Take 1 tablet by mouth twice * Medication notes this encounter FUROSEMIDE 20 MG TABLET >> Marta Alba LPN 12/04/2017 3:37 PM >> MARTA ALBA LPN SunDec 04, 2017 3:37 PM Taking 1 tablet every other day. PEG 3350-ELECTROLYTES 236 GRAM-22.74 GRAM-6.74 GRAM-5.86 GRAM SOLUTION >> Marta Alba LPN 12/04/2017 3:37 PM >> MARTA ALBA E [employer]AKER [place] SunDec 04, 2017 3:37 PM Course completed. ONDANSETRON 4 MG DISINTEGRATING TABLET >> Marta E Anjali BAKER HEAD 12/04/2017 3:37 PM >> ANJALI, MARTA E BAKER HEAD SunDec 04, 2017 3:37 PM Not taking. POTASSIUM CHLORIDE ER 8 MEQ TABLET,EXTENDED RELEASE >> Marta E Anjali BAKER HEAD 12/04/2017 3:38 PM >> ANJALI, MARTA E B[employer] HEAD SunDec 04, 2017 3:38 PM Taking 10meq once daily. WARFARIN 2 MG TABLET >> Marta E Anjali BAKER HEAD 12/04/2017 3:38 PM >> ANJALI, MARTA E B[employer] HEAD SunDec 04, 2017 3:38 PM Taking 2 1/2 all days. Problem List As Of Date 12/04/2017 Noted Resolved Asthma [J45.909] INVALID FOR* ESOPHAGEAL REFLUX [K21.9] INVALID FOR* Mixed hyperlipidemia [E78.2] INVALID FOR* LUMBAGO [M54.5] INVALID FOR* Osteoarthrosis, unspecified whether generalized* Fibromyalgia [M79.7] More... 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 Heart Valve Replaced by Other Means [Z95.4] INVALID FOR* More... Cardiac pacemaker in situ [Z95.0] INVALID FOR* More... Acute kidney failure with lesion of tubular nec*INVALID FOR*01/10/2013 More... 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 Hypothyroidism [E03.9] INVALID FOR* THROMBOCYTOPENIA NOS [D69.6] INVALID FOR* COPD (chronic obstructive pulmonary disease) (H*INVALID FOR* Chronic kidney disease, stage III (moderate) [N*INVALID FOR* PSVT (paroxysmal supraventricular tachycardia) *INVALID FOR*05/09/2012 More... Iron deficiency [E61.1] INVALID FOR*02/03/2013 Anemia in chronic renal disease [N18.9, D63.1] INVALID FOR* Infected cat bite [W55.01XA] INVALID FOR*05/09/2012 Atrial fibrillation (HCC) [I48.91] INVALID FOR* Adenomatous colon polyp [D12.6] INVALID FOR* Tobacco use disorder [F17.200] INVALID FOR* Cholelithiasis [K80.20] INVALID FOR*03/04/2014 Unspecified pleural effusion, loculated, right *INVALID FOR*03/04/2014 Dizziness and giddiness [R42] INVALID FOR* Carotid artery disease without cerebral infarct*INVALID FOR* Other specified hypotension [I95.89] INVALID FOR* Transfusion history [Z92.89] INVALID FOR* More... Sleep apnea [G47.30] Moderate to severe pulmonary hypertension (HCC)*INVALID FOR* H/O mitral valve replacement [Z95.2] INVALID FOR* Type 2 diabetes mellitus with stage 3 chronic k*INVALID FOR* Vitamin D deficiency [E55.9] INVALID FOR* Anticoagulant long-term use [Z79.01] INVALID FOR* Iron deficiency anemia due to chronic blood los*INVALID FOR* Gastrointestinal hemorrhage [K92.2] INVALID FOR* Medications Discontinued During This Encounter peg 3350-Electrolytes (GOLYTELY) 236* 4 L 0 10/16/2017 12/04/2017 Sig: Refer to printed patient instructions that will be mailed to you. Disc: Reason for discontinue is not on file. ondansetron orally disintegrating (Z* 12 t* 0 03/27/2017 12/04/2017 Route: ORAL Sig: Take 1 tablet by mouth every 8 hours as needed. Disc: Course of therapy completed Potassium Chloride (SLOW-K) 8 mEq ta* 30 t* 11 01/21/2016 12/04/2017 Route: ORAL Sig: Take 1 tablet by mouth once daily. Disc: Reason for discontinue is not on file. warfarin (COUMADIN) 2 mg tablet 0 04/07/2015 12/04/2017 Class: Historical Med Sig: Taking 4 mg mondays, 2 mg all other days Disc: Dosage adjustment Disposition: Return in about 5 months (around 05/06/2018), or if symptoms worsen or fail to improve. Follow-up and Disposition History Recorded Encounter Status:Closed by KODAK MUÑOZ MD on 12/04/17 PROGRESS Observed: 12/03/2017 Status: COMPLETED Source: [place] 10:18 AM [facility] REPOSITORY HNO ID: [id number] Author: Arlene (Rn) CINDY Marrero Service: (none) Author Type: Registered Nurse Type: Progress Notes Filed: 01/21/2018 3:10 PM Note Text: Ingested capsule endoscope without difficulty @ 10:15 on 12-03-2017. Deneen Marrero RN MARYBETH ABS GR + CBC Collected: 11/29/2017 Status: F Source: [place] 9:15 AM [facility] REPOSITORY TYPE CODE TESTS RESULT OUT OF REFERENCE UNITS RANGE LAB WWBC 3.70-11.00 k/uL Low [place] WBC 3.48 LAB WRBC 3.90-5.20 m/uL Low [place] RBC 3.16 LAB WHGB 11.5-15.5 g/dL Low [place] Hemoglobin 9.6 LAB WHCT 36.0-46.0 % Low [place] Hematocrit 31.3 LAB WMCV 80.0-100.0 fL [place] MCV 99.1 LAB WMCH 26.0-34.0 pg [place] MCH 30.4 LAB WMCHC 30.5-36.0 g/dL [place] MCHC 30.7 LAB WRDW 11.5-15.0 % [place] High RDW 17.0 LAB WPLT 150-400 k/uL Low [place] Platelet Cnt 81 Result Comment: NO CLOT DETECTED LAB WMPV 9.0-12.7 fL [place] MPV 11.0 Result Comment: Test performed at: [facility], [address] [place] [address]. LAB ABGRAN 1.45-7.50 k/uL Absol Gran 2.93 Count LIPID PANEL, BASIC Collected: 11/29/2017 Status: F Source: [place] 9:15 [facility] REPOSITORY TYPE CODE TESTS RESULT OUT OF REFERENCE UNITS RANGE LAB CHOL <200 mg/dL Cholesterol 109 Result Comment: <200 mg/dL, Desirable 200-239 mg/dL, Borderline high >239 mg/dL, High LAB TRIGLY <150 mg/dL Triglyceride 105 Result Comment: <150 mg/dL, Normal 150-199 mg/dL, Borderline high 200-499 mg/dL, High >499 mg/dL, Very high LAB HDL >39 mg/dL HDL-Cholesterol Low 32 Result Comment: 40-59 mg/dL, Acceptable >59 mg/dL, High: Negative risk factor for coronary heart disease <40 mg/dL, Low: Positive risk factor for coronary heart disease LAB LDL <100 mg/dL LDL-Cholesterol 56 Result Comment: <100 mg/dL, Optimal 100-129 mg/dL, Near optimal/above optimal 130-159 mg/dL, Borderline high 160-189 mg/dL, High >189 mg/dL, Very high Secondary prevention optimal LDL Cholesterol levels are recommended to be < 70 mg/dL LAB NONHDL <130 mg/dL Non HDL Cholesterol 77 Result Comment: <130 mg/dL, Optimal 130-159 mg/dL, Near optimal/above optimal 160-189 mg/dL, Borderline high 190-219 mg/dL, High >219 mg/dL, Very high Secondary prevention optimal non HDL Cholesterol levels are recommended to be < 100 mg/dL LAB FT hrs Fasting Time 12 LAB VLDL <30 mg/dL VLDL Cholesterol 21 LAB TCHDL <5.10 TC:HDL Ratio 3.41 LAB LDLHDL <2.54 LDL:HDL Ratio 1.75 Result Comment: Reference: 1. National Cholesterol Education Program ATP III Guideline At-A-Glance Quick Desk Reference: National Heart, Lung, and Blood [place]. National Institutes of Health. 2001: NIH Publication No. 01-3305. 2. An International Atherosclerosis Society position paper: global recommendations for the management of dyslipidemia: executive summary, Atherosclerosis. 2014: 232(2):410-413. Performed By: #### LIPB, HBA1C #### [facility] [address] [place] [id number] HEMOGLOBIN A1C Collected: 11/29/2017 Status: F Source: [place] 9:15 AM [facility] REPOSITORY TYPE CODE TESTS RESULT OUT OF REFERENCE UNITS RANGE LAB HGBA1C 4.3-5.6 % Hemoglobin A1c 4.7 LAB HBA0 mg/dL Est. Average Glucose 88 Result Comment: eAG: (Estimated average glucose) is a calculated value from HgbA1c and is loss control representative of the average blood glucose level in the last 2-3 month period. Performed By: #### LIPB, HBA1C #### [facility] [address] [place], [place] [id number] ALBUMIN/CREAT RATIO Collected: 11/29/2017 Status: F Source: [place] 9:15 AM [facility] REPOSITORY TYPE CODE TESTS RESULT OUT OF REFERENCE UNITS RANGE LAB UCRR 20-300 mg/dL 18.0 Low Creatinine,Ur ine,Ran LAB UALBR 0.0-23.0 mg/L <12.0 Albumin Urine Random LAB UALBCR 0-30 mg/g Not Albumin/Creat calculated Ratio Performed By: #### UACR #### [facility] [address], [place] [id number] CARDIOLOGY VISIT Observed: 11/27/2017 Status: F Source: [place] REPORT 10:52 AM [facility] REPOSITORY [place] [facility] [place] [id number] [facility]. [address] [place], [place] [address] OFFICE VISIT Date of Service: 11/27/17 MR#: [id number] Acct: [id number] Name: EMANI LOUIS Rep #: [id number] : 1940 Provider: Eddie Mendoza MD Age/Sex: 77/F [place] [facility]: Signed [facility] Chief Complaint: Follow-up visit. Details: EMANI LOUIS, is a 77 F who presents to the office today for a follow-up visit. She is a lady with a history of coronary artery disease mitral valve disease status post replacement with a [address] Alex's Medtronic mechanical valve she also has a history of atrial fibrillation which is now chronic persistent and repeated anemias for which she has received blood transfusion including 1 just about a week ago for hemoglobin of approximately 8. She denies any chest pain she has had some shortness of breath as well as lightheadedness no radhika syncopal episodes. She had no neck arm or jaw discomfort suggest angina and no obvious bleeding diathesis. As you know she has been on anticoagulation in an attempt to maintain an adequate INR this has been fraught with significant anemia for which she has been followed here in [place] as well as in [place]. She tells me that she had an ultrasound of the liver as well as a colonoscopy yesterday and had some cauterization done. Her physical exam today demonstrates clear lung choudhury irregular regular heart rate crisp prosthetic sounds soft 2/6 systolic murmur noted right sternal border and no pedal edema. 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 Required: No Accompanied by: Is patient in pain?: No Allergies amiodarone Adverse Reaction (Verified 11/27/17 10:17) vomiting, poor balance, dizziness digoxin Adverse Reaction (Verified 11/27/17 10:17) nausea, dry heaves lorazepam [From Ativan] Adverse Reaction (Verified 11/27/17 10:17) Unknown meloxicam [From Mobic] Adverse Reaction (Verified 11/27/17 10:17) Unknown nortriptyline HCl [From Pamelor] Adverse Reaction (Verified 11/27/17 10:17) Unknown zolpidem tartrate [From Ambien] Adverse Reaction (Verified 11/27/17 10:17) Unknown Medications Atorvastatin Calcium [Lipitor] 20 mg PO QHS 05/22/13 [History Confirmed 11/27/17] Cholecalciferol (Vitamin D3) [Vitamin D] 1 cap PO DAILY 05/22/13 [History Confirmed 11/27/17] Levothyroxine [Synthroid] 50 mcg PO DAILY 04/01/15 [History Confirmed 11/27/17] Albuterol Inhaler [Ventolin Hfa] 2 puff INHALATION Q6H PRN PRN 04/02/15 [History Confirmed 11/27/17] Ferrous Sulfate 325 mg PO TID 04/02/15 [History Confirmed 11/27/17] Hydrocodone/Acetaminophen [Hydrocodone-Acetamin 5-325 mg] 1 tab PO Q8H PRN PRN 04/02/15 [History Confirmed 11/27/17] Insulin Lispro [Humalog KwikPen] 0 unit SQ BIDCM 04/02/15 [History Confirmed 11/27/17] Folic Acid 1 mg PO DAILY@0800 04/30/15 [History Confirmed 11/27/17] Insulin Glargine [Lantus SoloStar Pen] 35 - 45 units SC QHS 04/30/15 [History Confirmed 11/27/17] Tiotropium [place] [Spiriva 18 MCG] 2 puff INHALATION DAILY PRN 06/03/15 [History Confirmed 11/23/17] Cyanocobalamin (Vitamin B-12) [Vitamin B12] 1,000 mcg PO DAILY 06/10/16 [History Confirmed 11/27/17] Furosemide [Lasix] 20 mg PO QODAY 06/10/16 [History Confirmed 11/27/17] Docusate Sodium [Colace] 200 mg PO BID PRN PRN 09/08/16 [History Confirmed 11/27/17] Fluticasone 0.05% [Flonase Nasal [place]] 2 spray NASAL DAILY PRN 09/08/16 [History Confirmed 11/27/17] Potassium Chloride [K-Dur] 20 meq PO DAILY 03/15/17 [History Confirmed 11/27/17] Trazodone HCl 50 mg PO QHS PRN 03/16/17 [History Confirmed 11/27/17] Venlafaxine HCl [Effexor] 37.5 mg PO BID 03/30/17 [History Confirmed 11/27/17] Magnesium 250 mg PO DAILY 05/24/17 [History Confirmed 11/27/17] warfarin 2.5 mg tablet 2.5 mg PO QDAY #90 tab 10/01/17 [Rx Confirmed 11/27/17] warfarin 2 mg tablet 2 mg PO .COMPLEX #30 tab 10/03/17 [Rx Confirmed 11/27/17] pantoprazole 40 mg tablet,delayed release 40 mg PO BID 30 Days #60 tab 11/23/17 [History Confirmed 11/27/17] Ejection fraction %: 65 to 70 (65% per echo 10/26/2015 at [facility] Medical History Tachycardia-bradycardia syndrome (Chronic) Pleural effusion, not elsewhere classified (Chronic) Typical atrial flutter (Chronic) Hypotension (Chronic) Secondary pulmonary hypertension (Chronic) Carotid bruit (Chronic) PVC's (premature ventricular contractions) (Chronic) Mitral valve insufficiency (Chronic) COPD (chronic obstructive pulmonary disease) (Chronic) Paroxysmal atrial fibrillation (Chronic) Sick sinus syndrome (Chronic) 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) Acquired thrombocytopenia (Chronic) Chronic obstructive asthma (Chronic) Type II diabetes mellitus (Chronic) History of hypothyroidism (Chronic) HLD (hyperlipidemia) (Chronic) Chronic anemia (Chronic) Ascites (Chronic) GERD (gastroesophageal reflux disease) (Chronic) Pericardial effusion (Chronic) Pleural effusion (Chronic) Surgical History Cardiac pacemaker in situ (Chronic) History of mitral valve replacement with mechanical valve (Chronic) History of incision of pericardium (Chronic) Family History Mother Cancer lung and renal Social History Smoking Status: Current every day smoker alcohol intake: never substance use type: does not use caffeine: Yes Type: carbonated beverages what type of physical activity do you participate in: none seatbelt use: always do you feel safe at home: Yes ROS Const Const: Negative for body ache, fever(s), chills, night sweats, daytime sleepiness, difficulty sleeping, weight gain, weight loss, increased appetite, poor appetite, anorexia, other, frequent falls, headache(s), weakness, fatigue or excessive sweating Eyes Eyes: Negative for blind spots, loss of peripheral vision, transient loss of vision, change in vision, floaters, tunnel vision, other, blurry vision or double vision ENT ENT: Negative for hearing loss, tinnitus, Nosebleed/epistaxis, post nasal drip, bleeding gums, hoarseness, neck pain, dry mouth, other, balance problems, dizziness, headache(s), tongue swelling or lip swelling Cardio Chest Pain: No Palpitations: No Edema: None Muscle aches with walking: None Resp Respiratory: Positive for SOB with activity; negative for SOB at rest, SOB orthopnea\SOB lying down, Cough, Coughing up blood/hemoptysis, chest congestion, pain on inspiration, snoring, stridor, wheezing, crackles, paroxysmal nocturnal dyspnea or other GI GI: Negative nausea, vomiting, heartburn, constipation, belching, bloating, cramping, vomiting blood/hematemesis, bright, red blood in stools, black,tarry stools, loose stools, Difficulty Swallowing or other : Negative for hematuria, frequent nighttime urination/ nocturia, erectile dysfunction or abnormal vaginal bleeding Musc Musc: Negative for muscle aches/ myalgia, muscle weakness, joint pain or balance problems Skin Skin: Negative redness, non-healing lesions, unusual bruising, skin ulcer, wounds, jaundice, other or rash Neuro Neuro: Positive for lightheadedness; negative for dizziness, near syncope, syncope, orthostatic symptoms, frequent falls, headache(s), weakness, confusion, memory loss, restless legs, blurry vision, double vision, vertigo, seizures, lack of coordination or other [place] Hematologic/Lymphatic: Negative for easy bleeding, easy bruising, enlarged lymph nodes or other Endo Endo: Negative for fatigue, cold intolerance, heat intolerance, excessive sweating, flushing, increased thirst/drinking, increased hunger, hair loss, hair growth or other Psych Psych: Negative for anxiety, depression, thoughts of harming anyone, thoughts of harming yourself, visual hallucinations, panic attacks or audible hallucinations Allergy Allergy/Immunology: Negative for throat swelling, Negative for tongue swelling, Negative for hives, Negative for rash, Negative for lip swelling Cardiology Exam Const Appearance: cooperative, healthy appearing, well developed, well groomed, no acute distress and other (pale) Nutritional Appearance: well nourished and average body habitus Orientation: alert, awake and oriented x3 Head Head: normal to inspection, normocephalic and atraumatic Ears: hearing grossly normal bilaterally and external ears normal Nose: external nose normal, nasal mucous membranes and turbinates normal, nares normal, septum normal, no nasal discharge Face and Sinus: face symmetric Mouth: oral mucosae normal, tongue normal, oropharynx normal and moist mucous membranes Teeth and gingiva: dentition normal Throat: posterior oropharynx normal, tonsils normal and uvula midline Eyes General: appearance normal, both eyes and all related structures Eyelids: eyelids normal Conjunctivae: conjunctivae normal Pupils: PERRL, normal by confrontation and accommodation normal EOM: EOM intact bilaterally Neck Neck: normal visual inspection, trachea midline and no JVD JVD: +5 Carotids: normal carotid upstroke and bounding pulses Chest Chest inspection: normal inspection of the chest, symmetric chest movement and normal respiratory effort Auscultation: Bilateral: Clear to Auscultation Cardio Palpation: normal PMI Rate: regular rate Rhythm: irregular rhythm Heart sounds: S1 normal, S2 normal, normal, physiologic split S2 and crisp prosthetic S2; negative rub, gallop or murmur Murmur: Grade 1/6, soft and RLSB GI GI: normal to inspection, soft, no hepatosplenomegaly and bowel sounds present Neuro General: alert, awake, oriented x3, no focal sensory deficit, gait normal and moves all extremities Skin Skin: no rashes or lesions noted Extremities Pulses: Normal: Right Femoral Pulse, Left Femoral Pulse, Right Dorsalis Pedis Pulse, Left Dorsalis Pedis Pulse, Right Posterior Tibial Pulse, Left Posterior Tibial Pulse, Right Radial Pulse, Left Radial Pulse Lower Extremity Edema: None: Bilateral Musculoskel Musculoskeletal: No joint tenderness Psych Psychological: normal affect Assessment AND Plan 1. History of mitral valve replacement with mechanical valve Z95.2 #[address] Alex mechanical valve Plan She does have a mechanical mitral valve in situ her last echocardiogram from 2016 demonstrated normal ejection fraction of 65% and normal prosthetic mitral valve but with moderately severe tricuspid regurgitation and severe pulmonary hypertension with pulmonary pressures of approximately 70 mmHg. We will continue to attempt to maintain her INR between 2.5 and 3.5 and at this time there are no plans for any other changes. She will continue with antibiotic prophylaxis as well. 2. Paroxysmal atrial fibrillation I48.0 Plan She does have paroxysmal atrial fibrillation for which she remains on Coumadin therapy. Due to her valve we attempted to maintain her INR between 2.5 and 3.5. 3. Acute on chronic anemia Plan She does have evidence of a chronic anemia with acute exacerbations. She was recently seen in [place] where she had a colonoscopy and is also scheduled to have a capsule endoscopy next week. 4. Secondary pulmonary hypertension Plan She does have evidence of pulmonary hypertension which is likely secondary to her valvular heart disease. Her diuretic helps to keep this in check. This will be continued at the same dosage. 5. Pure hypercholesterolemia E78.00; E78.0 Plan She is on a medium intensity statin which will be continued and managed by her primary care physician. Overall Ms. Gomes continues to do well. Her blood pressures today were noted to be low but I suspect this is falsely low due to possible peripheral vascular disease. I have asked her to continue to monitor this as an outpatient. Thank you for allowing me to participate in the care of your patient. Please don't hesitate to call if any issues arise Plan Detail Follow Up 4 Months (mmm) Coding Level of Care Code Off vis,est,level 4 Diagnoses History of mitral valve replacement with mechanical valve Z95.2 Paroxysmal atrial fibrillation I48.0 Acute on chronic anemia Secondary pulmonary hypertension Pure hypercholesterolemia E78.00; E78.0 Hyperlipidemia type: pure hypercholesterolemia Coding Level of Care Code Off vis,est,level 4 Diagnoses History of mitral valve replacement with mechanical valve Z95.2 Paroxysmal atrial fibrillation I48.0 Acute on chronic anemia Secondary pulmonary hypertension Pure hypercholesterolemia E78.00; E78.0 Hyperlipidemia type: pure hypercholesterolemia 11/27/17 1052 <Electronically signed by Eddie Mendoza MD> Date Eddie Mendoza MD Cosigner Signature: Date (if applicable) CC: Kodak Muñoz MD US ABD SPLEEN -NB Observed: 11/26/2017 Status: F Source: [place] 2:52 PM [facility] REPOSITORY * * *Final Report* * * DATE OF EXAM: Nov 26 2017 2:52PM YARITZA 1232 - US ABD SPLEEN -NB / PROCEDURE REASON: Iron deficiency anemia, unspecified * * * * Physician Interpretation * * * * EXAMINATION: RIGHT UPPER QUADRANT AND SPLEEN ULTRASOUND HISTORY: Iron deficiency anemia TECHNIQUE: Sonography of the right upper quadrant and spleen was performed. Images were obtained and stored in a permanent archive. MQ: URUQ_1 COMPARISON: Noncontrast CT 05/09/2013 RESULT: Pancreas: Normal sonographic appearance. Portions obscured: tail Liver: Echotexture: Normal, homogeneous. Echogenicity: Slightly increased Surface contour: Smooth Lesions: 1 x 1.4 cm peripherally calcified area along the lateral margin of the right hepatic lobe is unchanged from prior CT Biliary: No intrahepatic biliary duct dilation. CBD: 0.3-0.6 cm at the hilum. Gallbladder: Normal caliber -Contents: Cholelithiasis -Wall: Normal -Other: No pericholecystic fluid. Right Kidney: No hydronephrosis. Cortical thinning Ascites: None. Spleen: The craniocaudal length of the spleen is 12.2 cm. There are no splenic lesions. IMPRESSION: PROBABLE MILD FATTY LIVER. STABLE SMALL CALCIFIED AREA IN THE RIGHT LOBE COMPARED TO PRIOR CT SCAN. CHOLELITHIASIS WITHOUT EVIDENCE OF CHOLECYSTITIS. NO BILIARY DILATATION Iv Technician: [facility] Transcribe Date/Time: Nov 26 2017 2:54P Dictated by : AROLDO RENAE JR, MD This examination was interpreted and the report reviewed and electronically signed by: AROLDO RENAE JR, MD on Nov 26 2017 3:03PM EST [id number] US ABD RIGHT UPPER Observed: 11/26/2017 Status: F Source: [facility] 2:52 PM [facility] [place] REPOSITORY * * *Final Report* * * DATE OF EXAM: Nov 26 2017 2:52PM YARITZA 1032 - US ABD RIGHT UPPER QUADRANT / PROCEDURE REASON: Iron deficiency anemia, unspecified * * * * Physician Interpretation * * * * EXAMINATION: RIGHT UPPER QUADRANT AND SPLEEN ULTRASOUND HISTORY: Iron deficiency anemia TECHNIQUE: Sonography of the right upper quadrant and spleen was performed. Images were obtained and stored in a permanent archive. MQ: URUQ_1 COMPARISON: Noncontrast CT 05/09/2013 RESULT: Pancreas: Normal sonographic appearance. Portions obscured: tail Liver: Echotexture: Normal, homogeneous. Echogenicity: Slightly increased Surface contour: Smooth Lesions: 1 x 1.4 cm peripherally calcified area along the lateral margin of the right hepatic lobe is unchanged from prior CT Biliary: No intrahepatic biliary duct dilation. CBD: 0.3-0.6 cm at the hilum. Gallbladder: Normal caliber -Contents: Cholelithiasis -Wall: Normal -Other: No pericholecystic fluid. Right Kidney: No hydronephrosis. Cortical thinning Ascites: None. Spleen: The craniocaudal length of the spleen is 12.2 cm. There are no splenic lesions. IMPRESSION: PROBABLE MILD FATTY LIVER. STABLE SMALL CALCIFIED AREA IN THE RIGHT LOBE COMPARED TO PRIOR CT SCAN. CHOLELITHIASIS WITHOUT EVIDENCE OF CHOLECYSTITIS. NO BILIARY DILATATION Iv Technician: [facility] Transcribe Date/Time: Nov 26 2017 2:54P Dictated by : AROLDO RENAE JR, MD This examination was interpreted and the report reviewed and electronically signed by: AROLDO RENAE JR, MD on Nov 26 2017 3:03PM EST [id number] PROTHROMBIN TIME W/INR Collected: 11/22/2017 Status: F Source: [place] 10:51 AM [facility] REPOSITORY Order Comment: Comments: STANDING ORDER Comments: STANDING ORDER TYPE CODE TESTS RESULT OUT OF RANGE REFERENCE UNITS LAB L300.4150 11.7-14.9 SECONDS High PROTIME 30.9 LAB L300.4200 Normal INR 3.0 Performed By: #### L300.3900 #### [facility] [address] [place], [address] TYPE AND SCREEN Collected: 11/22/2017 Status: F Source: [place] 9:00 AM [facility] REPOSITORY Order Comment: PRETRANSFUSION HGB = 8.2 HCT = 26.5 PERFORMED AT [facility] CMV NEG?* N Give When? 11/23 09 Irradiated? N Leukodepleted? Y Reason for Type AND Screen/Red Cells: ANEMIA TYPE CODE TESTS RESULT OUT OF RANGE REFERENCE UNITS LAB B10.0800 A Normal BLOOD TYPE GEL POSITIVE LAB B100.4000 Normal Antibody NEGATIVE Screen Performed By: #### B101.7450 #### [facility] [address] [place], [address] RC Collected: 11/22/2017 Status: F Source: [place] 9:00 AM [facility] REPOSITORY TYPE CODE TESTS RESULT OUT OF REFERENCE UNITS RANGE LAB U100.0000 [id number] TRANSFUSED PRODUCT: T AND S with Crossmatch, Red Cells COUNT: 2 Performed By: #### U100.0000 #### [facility] - refer to report for specific site MARYBETH ABS GR + CBC Collected: 11/22/2017 Status: F Source: [place] 9:00 AM [facility] REPOSITORY TYPE CODE TESTS RESULT OUT OF REFERENCE UNITS RANGE LAB WWBC 3.70-11.00 k/uL [place] WBC 3.76 LAB WRBC 3.90-5.20 m/uL Low [place] RBC 2.61 LAB WHGB 11.5-15.5 g/dL Low [place] Hemoglobin 8.2 LAB WHCT 36.0-46.0 % Low [place] Hematocrit 26.5 LAB WMCV 80.0-100.0 fL [place] High MCV 101.5 LAB WMCH 26.0-34.0 pg [place] MCH 31.4 LAB WMCHC 30.5-36.0 g/dL [place] MCHC 30.9 LAB WRDW 11.5-15.0 % [place] High RDW 17.3 LAB WPLT 150-400 k/uL Low [place] Platelet Cnt 94 LAB WMPV 9.0-12.7 fL [place] MPV 11.1 Result Comment: Test performed at: [facility] [facility], [address] [place] [address]. LAB ABGRAN 1.45-7.50 k/uL Absol Gran 2.79 Count PACEMAKER CHECK Observed: 11/21/2017 Status: F Source: [place] 8:22 AM [facility] REPOSITORY [facility] [address] [place] [address] Pacemaker Check Date of Service: 11/06/17 1129 MR#: [id number] Acct: [id number] Name: EMANI LOUIS Rep #: [id number] : 1940 From: Angélica Dunn Age/Sex: 76/F [place] [facility] [place]: Signed Comments Summary Comments: Dual Chamber Pacemaker Evaluation: Interrogation shows 10.4k MS episodes, 89% total time or 73.1 days, max duration of episode 2 days, no VHR episodes since 08/16/17. Pt on Coumadin Left pectoral pocket/incision w/o s/s of infection or erosion. Pt offers no cardiac complaints. Presenting rhythm shows atrial flutter @ 100 bpm. [employer]CHO[employer]=6%. Battery longevity approx <0.5yrs. Lead impedances, sensing and ventricular threshold remain stable. Unable to check atrial threshold d/t chronic atrial flutter. No parameter changes made. Counters cleared. Next f/u appt scheduled for in 3 mos. Device Device Date Interviewed: 11/06/17 Follow-up Location: in office Interview Reason: routine follow up Business English Instructor: [id number] Systems Name: Altrua 40 Model: S403 Serial #: [id number] Implant Date: 07/31/08 Year(s): 9 Implant Physician: Dr. Addison Meyers/[facility] Patient Characteristics Atrial Indication: sick sinus syndrome Ejection fraction %: 65 to 70 (10/2015) By: Echo Underlying rhythm: Atrial flutter Pacemaker Dependent: No Device Characteristics Device: Dual Chamber Type: Pacemaker Remote Follow-Up: No Device Physical Exam Yes Incision well healed Leads Lead #1 Business English Instructor Lead 1: Guidant Model Lead 1: 4135 Serial# Lead 1: [id number] Date Implanted Lead 1: 07/31/08 Position Lead 1: RA Lead #2 Business English Instructor Lead 2: Guidant Model Lead 2: 4136 Serial# Lead 2: [id number] Date Implanted Lead 2: 07/31/08 Position Lead 2: RV Diagnostics Pacing % RA Pacin % RV Pacin Mode Switching Total # Episodes: 10,400 % Mode switched: 89 Arrhythmias Non-Sust Episodes: 0 Measurements Battery Charge Time (Sec): 90 Predicted Remaining Longevity (months or years): 0.5 years RA Measurements Signal Amplitude (mV): 2.0 RV Measurements Signal Amplitude (mV): 8.7 Impedance (Ohms): 430 Threshold Voltage: 0.7 @ PW(ms): 0.5 Alberto Settings Alberto Settings Pacemaker Mode DDDR Output/Sensing V/PW (ms) 2.0/0.6 2.0/0.5 Sensitivity RA RV LV Comments: Billing Codes PM Device Codes: PM Dev Prog Eval, Dual Assessment AND Plan Problems 1. Cardiac pacemaker in situ Z95.0 11/19/17 1747 <Electronically signed by Angélica Dunn > Date Angélica Dunn 11/21/17 0822<Electronically signed by Eddie Mendoza MD> Shama Signature: Date (if applicable) Eddie Mendoza MD CC: CNPTOJOSE CRUZ Observed: 11/20/2017 Status: COMPLETED Source: VO 12:00 AM [facility] REPOSITORY Patient Outreach ([facility]) MISSYEMANI L ([id number]) 1940 F Date Time Provider Department 11/20/17 KODAK MUÑOZ [facility] During your visit today, we recorded the following information about you: Allergies As of Date: 11/20/2017 Noted Allergy Reaction AMBIEN (ZOLPIDEM TARTRATE) 09/06/2005 16 - Unknown ATIVAN (LORAZEPAM) 09/06/2005 14 - Other: See Comments Comments: just didn't work MOBIC (MELOXICAM) 09/06/2005 16 - Unknown PAMELOR (NORTRIPTYLINE HCL) 09/06/2005 16 - Unknown Date Reviewed: 11/15/2017 Reviewed by: Celia Carpenter LPN - Fully Assessed Visit Diagnosis:Medication management [Z79.899] Order(s):CBC [SQCBC] Order #: [id number] FUTURE ALBUMIN/CREAT RATIO RND UR [SQUACR] Order #: [id number] FUTURE HGB A1C [UTIGL3L] Order #: [id number] FUTURE LIPID PANEL BASIC [SQLIPB] Order #: [id number] FUTURE Prescriptions as of 11/20/2017 Sig: X PANTOPRAZOLE 40 MG TABLET,DEL* TAKE ONE TABLET BY MOUTH EVER* X ATORVASTATIN 20 MG TABLET Take 1 tablet by mouth once d* X PEG 3350-ELECTROLYTES 236 GRA* Refer to printed patient inst* LANCETS Use as instructed 3 to 4 TIME* X VENLAFAXINE 37.5 MG TABLET Take 1 tablet by mouth twice * X BLOOD SUGAR DIAGNOSTIC, DRUM-* Test blood sugar(s) 4 times d* X FOLIC ACID 1 MG TABLET Take 1 tablet by mouth once d* BLOOD-GLUCOSE METER, DRUM-TYP* Accu-Check Compact Plus Meter* X LEVOTHYROXINE 50 MCG TABLET TAKE ONE TABLET BY MOUTH EVER* HYDROCODONE 5 MG-ACETAMINOPHE* Take 1 tablet by mouth every * MAGNESIUM 250 MG TABLET Take 250 mg by mouth once lynette* X ONDANSETRON 4 MG DISINTEGRATI* Take 1 tablet by mouth every * X INSULIN GLARGINE (U-100) 100 * Inject 35 Units subcutaneousl* X INSULIN LISPRO (U-100) 100 UN* Inject 15 Units subcutaneousl* PEN NEEDLE, DIABETIC 31 GAUGE* USE ONE NEEDLE FOR EACH DOSE X TRAZODONE 150 MG TABLET Take 1-2 tablets by mouth lynette* FUROSEMIDE 20 MG TABLET Take 20 mg by mouth every oth* CYANOCOBALAMIN (VIT B-12) 1,0* Take 1 tablet by mouth once d* X FERROUS SULFATE 325 MG (65 MG* Take 1 tablet by mouth three * Patient taking differently: Take 1.5 tablets by mouth twi* ALBUTEROL SULFATE HFA 90 MCG/* Inhale 2 Puffs as instructed * X POTASSIUM CHLORIDE ER 8 MEQ T* Take 1 tablet by mouth once d* TIOTROPIUM BROMIDE 2.5 MCG/AC* Inhale 2 Puffs as instructed * DOCUSATE SODIUM 100 MG CAPSULE Take 1 capsule by mouth twice* X WARFARIN 2 MG TABLET Taking 4 mg mondays, 2 mg all* CHOLECALCIFEROL (VITAMIN D3) * Take 500 Units by mouth once * Problem List As Of Date 11/20/2017 Noted Resolved Asthma [J45.909] INVALID FOR* Diabetes mellitus, type II (HCC) [E11.9] INVALID FOR* ESOPHAGEAL REFLUX [K21.9] INVALID FOR* Mixed hyperlipidemia [E78.2] INVALID FOR* LUMBAGO [M54.5] INVALID FOR* Osteoarthrosis, unspecified whether generalized* Fibromyalgia [M79.7] More... 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 Heart Valve Replaced by Other Means [Z95.4] INVALID FOR* More... Cardiac pacemaker in situ [Z95.0] INVALID FOR* More... Acute kidney failure with lesion of tubular nec*INVALID FOR*01/10/2013 More... 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 Hypothyroidism [E03.9] INVALID FOR* THROMBOCYTOPENIA NOS [D69.6] INVALID FOR* COPD (chronic obstructive pulmonary disease) (H*INVALID FOR* Chronic kidney disease, stage III (moderate) [N*INVALID FOR* PSVT (paroxysmal supraventricular tachycardia) *INVALID FOR*05/09/2012 More... Iron deficiency [E61.1] INVALID FOR*02/03/2013 Anemia in chronic renal disease [N18.9, D63.1] INVALID FOR* Infected cat bite [W55.01XA] INVALID FOR*05/09/2012 Atrial fibrillation (HCC) [I48.91] INVALID FOR* Adenomatous colon polyp [D12.6] INVALID FOR* Tobacco use disorder [F17.200] INVALID FOR* Cholelithiasis [K80.20] INVALID FOR*03/04/2014 Unspecified pleural effusion, loculated, right *INVALID FOR*03/04/2014 Dizziness and giddiness [R42] INVALID FOR* Carotid artery disease without cerebral infarct*INVALID FOR* Other specified hypotension [I95.89] INVALID FOR* Transfusion history [Z92.89] INVALID FOR* More... Sleep apnea [G47.30] GIB (gastrointestinal bleeding) [K92.2] INVALID FOR* Moderate to severe pulmonary hypertension (HCC)*INVALID FOR* H/O mitral valve replacement [Z95.2] INVALID FOR* Type 2 diabetes mellitus with stage 3 chronic k*INVALID FOR* Vitamin D deficiency [E55.9] INVALID FOR* Anticoagulant long-term use [Z79.01] INVALID FOR* Iron deficiency anemia due to chronic blood los*INVALID FOR* Gastrointestinal hemorrhage [K92.2] INVALID FOR* Encounter Status:Closed by [employer], PRODUSER on 05/24/18 MARYBETH ABS GR + CBC Collected: 11/15/2017 Status: F Source: [place] 8:55 AM [facility] REPOSITORY TYPE CODE TESTS RESULT OUT OF REFERENCE UNITS RANGE LAB WWBC 3.70-11.00 k/uL Mary[place] WBC 4.58 LAB WRBC 3.90-5.20 m/uL Low Marybeth RBC 3.02 LAB WHGB 11.5-15.5 g/dL Low [place] Hemoglobin 9.5 LAB WHCT 36.0-46.0 % Low [place] Hematocrit 30.3 LAB WMCV 80.0-100.0 fL Marybeth High MCV 100.3 LAB WMCH 26.0-34.0 pg [place] MCH 31.5 LAB WMCHC 30.5-36.0 g/dL [place] MCHC 31.4 LAB WRDW 11.5-15.0 % [place] High RDW 17.7 LAB WPLT 150-400 k/uL Low [place] Platelet Cnt 104 LAB WMPV 9.0-12.7 fL [place] MPV 11.0 Result Comment: Test performed at: [facility], [address] [place] [address]. LAB ABGRAN 1.45-7.50 k/uL Absol Gran 3.76 Count IRON AND TIBC Collected: 11/15/2017 Status: F Source: [place] 8:55 AM [facility] REPOSITORY TYPE CODE TESTS RESULT OUT OF REFERENCE UNITS RANGE LAB IRN 41-186 ug/dL Iron 49 LAB TIBC 232-386 ug/dL TIBC 239 LAB SAT 15-57 % Transferrin Saturatn 21 Performed By: #### IRON, FERR #### [facility] [address] [address] FERRITIN Collected: 11/15/2017 Status: F Source: [place] 8:55 AM [facility] REPOSITORY TYPE CODE TESTS RESULT OUT OF REFERENCE UNITS RANGE LAB FERR 14.7-205.1 ng/mL Ferritin 203.6 Performed By: #### IRON, FERR #### [facility] [address] [address] PROTHROMBIN TIME W/INR Collected: 11/08/2017 Status: F Source: [place] 11:07 AM [facility] REPOSITORY TYPE CODE TESTS RESULT OUT OF RANGE REFERENCE UNITS LAB L300.4150 11.7-14.9 SECONDS High PROTIME 29.4 LAB L300.4200 Normal INR 2.8 Performed By: #### L300.3900 #### [facility] [address] [place], [address] MARYBETH ABS GR + CBC Collected: 11/08/2017 Status: F Source: [place] 9:12 AM [facility] REPOSITORY TYPE CODE TESTS RESULT OUT OF REFERENCE UNITS RANGE LAB WWBC 3.70-11.00 k/uL [place] WBC 3.92 LAB WRBC 3.90-5.20 m/uL Low Marybeth RBC 3.06 LAB WHGB 11.5-15.5 g/dL Low [place] Hemoglobin 9.7 LAB WHCT 36.0-46.0 % Low [place] Hematocrit 30.3 LAB WMCV 80.0-100.0 fL [place] MCV 99.0 LAB WMCH 26.0-34.0 pg [place] MCH 31.7 LAB WMCHC 30.5-36.0 g/dL [place] MCHC 32.0 LAB WRDW 11.5-15.0 % [place] High RDW 17.5 LAB WPLT 150-400 k/uL Low [place] Platelet Cnt 75 LAB WMPV 9.0-12.7 fL Marybeth MPV 11.0 Result Comment: Test performed at: [facility], [address] [place] [address] Rd., [place] [address]. LAB ABGRAN 1.45-7.50 k/uL Absol Gran 3.18 Count TYPE AND SCREEN Collected: 11/01/2017 Status: F Source: [place] 9:10 AM [facility] REPOSITORY Order Comment: PRETRANSFUSION HGB = 8.1 HCT = 26.1 PERFORMED AT [facility] CMV NEG?* N Give When? 11/02/17 @0900 Irradiated? N Leukodepleted? Y Reason for Type AND Screen/Red Cells: ANEMIA TYPE CODE TESTS RESULT OUT OF RANGE REFERENCE UNITS LAB B10.0800 A Normal BLOOD TYPE GEL POSITIVE LAB B100.4000 Normal Antibody NEGATIVE Screen Performed By: #### B101.7450 #### [facility] [address] [place] [place], [address] RC Collected: 11/01/2017 Status: F Source: [place] 9:10 AM [facility] REPOSITORY TYPE CODE TESTS RESULT OUT OF REFERENCE UNITS RANGE LAB U100.0000 [id number] TRANSFUSED PRODUCT: T AND S with Crossmatch, Red Cells COUNT: 2 Performed By: #### U100.0000 #### [facility] - refer to report for specific site [place]IM[place] ABS GR + CBC Collected: 11/01/2017 Status: F Source: [place] 9:10 AM [facility] REPOSITORY TYPE CODE TESTS RESULT OUT OF REFERENCE UNITS RANGE LAB WWBC 3.70-11.00 k/uL [place] WBC 4.44 LAB WRBC 3.90-5.20 m/uL Low [place] RBC 2.55 LAB WHGB 11.5-15.5 g/dL Low [place] Hemoglobin 8.1 LAB WHCT 36.0-46.0 % Low [place] Hematocrit 26.1 LAB WMCV 80.0-100.0 fL [place] High MCV 102.4 LAB WMCH 26.0-34.0 pg [place] MCH 31.8 LAB WMCHC 30.5-36.0 g/dL [place] MCHC 31.0 LAB WRDW 11.5-15.0 % [place] High RDW 18.9 LAB WPLT 150-400 k/uL Low [place] Platelet Cnt 76 LAB WMPV 9.0-12.7 fL [place] MPV 10.8 Result Comment: Test performed at: [facility], [address] [place] [address]. LAB ABGRAN 1.45-7.50 k/uL Absol Gran 3.76 Count PROGRESS Observed: 10/31/2017 Status: COMPLETED Source: [place] 3:46 PM [facility] OTHER CAMPUS REPOSITORY HNO ID: [id number] Author: Steve Suero Service: (none) Author Type: Physician Type: Progress Notes Filed: 10/31/2017 4:10 PM Note Text: HPI: Emani Louis is a 76 year old female who presents for New Patient (iron deficiency). Pt is here to have a capsule endoscopy. Pt had an EGD about 3-4 mos ago at [facility]. No source of bleeding on that exam. Pt has seen Dr. Silvino Howard up at [facility] and is scheduled for a colonoscopy on 11/26. Says she has dark stool and is on Iron. No BPR, no pain, 30# wt loss in the past yr. No reflux, dysphagia. Pt has a pacemaker, on Coumadin for MVR. GI w/up in the past 3-4 yrs ago was neg for source including capsule study. Current Outpatient Prescriptions: atorvastatin (LIPITOR) 20 mg tablet Take 1 tablet by mouth once daily. peg 3350-Electrolytes (GOLYTELY) 236-22.74-6.74 -5.86 gram suspension Refer to printed patient instructions that will be mailed to you. Lancets lancets Use as instructed 3 to 4 TIMES DAILY insulin dep E 11.9 venlafaxine (EFFEXOR) 37.5 mg tablet Take 1 tablet by mouth twice daily. Blood Sugar Diagnostic, Drum (ACCU-CHEK COMPACT TEST) strp Test blood sugar(s) 4 times daily. Dx: Type 2 DM - Uncontrolled E11.65 Insulin: Yes folic acid 1 mg tablet Take 1 tablet by mouth once daily. Blood-Glucose Meter, Drum-type (ACCU-CHEK COMPACT PLUS CARE) kit Accu-Check Compact Plus Meter Diagnosis: Type 2 DM - Uncontrolled E11.65 levothyroxine (SYNTHROID) 50 mcg tablet TAKE ONE TABLET BY MOUTH EVERY DAY pantoprazole DR (PROTONIX) 40 mg tablet Take 1 tablet by mouth once daily. HYDROcodone-acetaminophen (NORCO) 5-325 mg per tablet Take 1 tablet by mouth every 8 hours as needed for Pain. Magnesium 250 mg tab Take 250 mg by mouth once daily. ondansetron orally disintegrating (ZOFRAN ODT) 4 mg disintegrating tablet Take 1 tablet by mouth every 8 hours as needed. insulin glargine (LANTUS SOLOSTAR) 100 unit/mL (3 mL) inpn Inject 35 Units subcutaneously daily at bedtime. For blood glucose >150 Insulin Lispro, Human, (HUMALOG KWIKPEN) 100 unit/mL inpn Inject 15 Units subcutaneously twice daily with meals for blood glucose >140. Add 2 units for every 50 of glucose >150. insulin needles, DISPOSABLE, (PEN NEEDLE) 31 gauge x 5/16 ndle USE ONE NEEDLE FOR EACH DOSE traZODone (DESYREL) 150 mg tablet Take 1-2 tablets by mouth daily at bedtime. furosemide (LASIX) 20 mg tablet 20 mg every other day. Daily cyanocobalamin (VITAMIN B-12) 1,000 mcg tab Take 1 tablet by mouth once daily. ferrous sulfate 325 mg (65 mg iron) EC tablet Take 1 tablet by mouth three times daily with meals. albuterol HFA (PROVENTIL HFA, VENTOLIN HFA) 90 mcg/actuation inhaler Inhale 2 Puffs as instructed every 6 hours as needed for Wheezing/Shortness of Breath. Potassium Chloride (SLOW-K) 8 mEq tablet Take 1 tablet by mouth once daily. tiotropium bromide (SPIRIVA RESPIMAT) 2.5 mcg/actuation mist Inhale 2 Puffs as instructed once daily. Inhale two puffs once daily. warfarin (COUMADIN) 2 mg tablet Taking 4 mg mondays, 2 mg all other days docusate sodium (COLACE) 100 mg capsule Take 1 capsule by mouth twice daily as needed for Constipation. Cholecalciferol, Vitamin D3, (VITAMIN D) 1,000 unit ORAL Tab Take 1,000 Units by mouth once daily. No current facility-administered medications for this visit. PAST MEDICAL HISTORY Diagnosis Date - Acute kidney failure with lesion of tubular necrosis (HCC) 08/19/[address] Tobias. - Adenomatous colon polyp 08/30/2012 - Anemia in chronic kidney disease(285.21) 08/31/2011 - Atrial fibrillation (HCC) 05/09/2012 - Calculus of ureter 03/24/2008 - Cardiac pacemaker in situ 08/17/2008 Sick sinus syndrome. - Cholelithiasis 05/26/2013 - Chronic kidney disease, stage III (moderate) 09/23/2009 - Chronic rhinitis - Congestive heart failure, unspecified 07/24/2008 Mitral insufficiency. - DDD (degenerative disc disease) - Diabetes mellitus (HCC) - Diverticulosis of colon (without mention of hemorrhage) 10/17/05 - Esophageal reflux 08/15/2005 - Fibromyalgia - Generalized osteoarthrosis, unspecified site - Heart valve replaced by other means 08/17/2008 #[address], [facility]. Mitral valve. - Iron deficiency 08/17/2011 - Lumbago 08/15/2005 - Melena - Myalgia and myositis, unspecified - Other and unspecified hyperlipidemia 08/15/2005 - PSVT (paroxysmal supraventricular tachycardia) (HCC) 04/10/2011 - Sleep apnea - Type II or unspecified type diabetes mellitus without mention of complication, not stated as uncontrolled 08/15/2005 - Unspecified asthma(493.90) 08/15/2005 - Unspecified cardiovascular disease heart cath 12/15 PAST SURGICAL HISTORY Procedure Laterality Date - COLONOSCOP W/ OR W/O BRSH SPEC 10/17/05 - COLONOSCOP W/ OR W/O BRSH SPEC 08/25/2009 Colonoscopy - COLONOSCOP W/ OR W/O BRSH SPEC 10/17/2012 Colonoscopy - EGD 01/16/05 - EGD W/O OR W/BRUSH/WASH 08/25/2009 EGD - EGD W/O OR W/BRUSH/WASH 04/05/15 EGD inpt [facility] - EGD W/O OR W/BRUSH/WASH 10/30/2016 EGD - INSER DIAMOND PACER XVENOUS ATRIAL Perm pacemaker insert - LEFT HEART CATH,PERCUTANEOUS Cardiac cath, L heart - LIGATE FALLOPIAN TUBE Tubal ligation - PAST SURGICAL HISTORY OF cervical conization - PAST SURGICAL HISTORY OF 01/03/05 Heart Cath - PAST SURGICAL HISTORY OF Carpal tunnel surgery b/l wrists - PERICARDIAL FINE NEEDLE ASPIRATION 2008 Pericardial Window - REPLACEMENT OF MITRAL VALVE Mitral valve replacement, [facility]25. 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 Oxygen 3 LPM at HS and with exertion. Has cane, wheelchair as needed. No safety concerns. Camping trailer during summer. ALLERGIES Allergen Reactions - Ambien [Zolpidem Ta* Unknown - Ativan [Lorazepam] Other: See Comments just didn't work - Mobic [Meloxicam] Unknown - Pamelor [Nortriptyl* Unknown REVIEW OF SYSTEMS GENERAL: No weight loss, malaise or fevers. HEENT: Negative for frequent or significant headaches, No changes in hearing or vision, no nose bleeds or other nasal problems. NECK: Negative for lumps, goiter, pain and significant neck swelling. RESPIRATORY: Negative for cough, hemoptysis, wheezing or shortness of breath CARDIOVASCULAR: Negative for chest pain, leg swelling or palpitations GI: See HPI : No history of dysuria, frequency or incontinence MUSCULOSKELETAL: Negative for joint pain or swelling, back pain or muscle pain. SKIN: Negative for lesions, rash, and itching PSYCH: Negative for sleep disturbance, mood disorder and recent psychosocial stressors NEURO: No history of headaches, syncope, paralysis, seizures or tremors PHYSICAL EXAMINATION: BP 72/52 Ht 5' 2 (1.58m) Wt 138 lb (62.6kg) BMI 25.23 kg/(m2). GENERAL APPEARANCE: Well appearing, alert, in no acute distress, well-hydrated, well nourished.. SKIN: Skin color, texture, turgor normal, no suspicious rashes or lesions. EYES: Anicteric sclera. Pupils are equally round and reactive to light. Extraocular movements are intact. . NECK: Supple, no adenopathy; thyroid symmetric, normal size, no bruits. LUNGS: Lungs clear to auscultation. No wheezing, rhonchi, rales. HEART: RRR without murmur, gallop, or rubs. No ectopy. ABDOMEN: Normal, soft, non-tender, no masses Liver edge seemed to be about 3 FB's below costal margin EXTREMITIES: No deformities, edema, skin discoloration, clubbing or cyanosis. NEUROLOGIC: Gait normal. Sensation and strength grossly intact.. ASSESSMENT AND PLAN: ASSESSMENT/PLAN: 1. Iron deficiency anemia due to chronic blood loss - ICD9: 280.0, ICD10: D50.0 (primary diagnosis) - Pt/family to ask Dr. Howard if capsule endo poss right after colonoscopy if neg. O/w could schedule separately but seems prudent to do after colonoscopy. 2. Hepatomegaly - ICD9: 789.1, ICD10: R16.0 - mild - US pend Steve Suero MD CNOV Observed: 10/31/2017 Status: COMPLETED Source: [place] 2:45 PM [facility] OTHER CAMPUS REPOSITORY Office Visit (AGGASTACC) MISSYEMANI ([id number]) 1940 F TXT Date Time Provider Department 10/31/17 2:45 PM STEVE SUERO During your visit today, we recorded the following information about you: Blood pressure Weight Height 72/52 62.6 kg 1.575 m Steve Suero MD 10/31/2017 4:10 PM Signed HPI: Emani Louis is a 76 year old female who presents for New Patient (iron deficiency). Pt is here ANDquot;to have a capsule endoscopy.ANDquot; Pt had an EGD about 3-4 mos ago at [facility]. No source of bleeding on that exam. Pt has seen Dr. Silvino Howard up at [facility] and is scheduled for a colonoscopy on 11/26. Says she has dark stool and is on Iron. No BPR, no pain, 30# wt loss in the past yr. No reflux, dysphagia. Pt has a pacemaker, on Coumadin for MVR. GI w/up in the past 3-4 yrs ago was neg for source including capsule study. Current Outpatient Prescriptions: atorvastatin (LIPITOR) 20 mg tablet Take 1 tablet by mouth once daily. peg 3350-Electrolytes (GOLYTELY) 236-22.74-6.74 -5.86 gram suspension Refer to printed patient instructions that will be mailed to you. Lancets lancets Use as instructed 3 to 4 TIMES DAILY insulin dep E 11.9 venlafaxine (EFFEXOR) 37.5 mg tablet Take 1 tablet by mouth twice daily. Blood Sugar Diagnostic, Drum (ACCU-CHEK COMPACT TEST) strp Test blood sugar(s) 4 times daily. Dx: Type 2 DM - Uncontrolled E11.65 Insulin: Yes folic acid 1 mg tablet Take 1 tablet by mouth once daily. Blood-Glucose Meter, Drum-type (ACCU-CHEK COMPACT PLUS CARE) kit Accu-Check Compact Plus Meter Diagnosis: Type 2 DM - Uncontrolled E11.65 levothyroxine (SYNTHROID) 50 mcg tablet TAKE ONE TABLET BY MOUTH EVERY DAY pantoprazole DR (PROTONIX) 40 mg tablet Take 1 tablet by mouth once daily. HYDROcodone-acetaminophen (NORCO) 5-325 mg per tablet Take 1 tablet by mouth every 8 hours as needed for Pain. Magnesium 250 mg tab Take 250 mg by mouth once daily. ondansetron orally disintegrating (ZOFRAN ODT) 4 mg disintegrating tablet Take 1 tablet by mouth every 8 hours as needed. insulin glargine (LANTUS SOLOSTAR) 100 unit/mL (3 mL) inpn Inject 35 Units subcutaneously daily at bedtime. For blood glucose ANDgt;150 Insulin Lispro, Human, (HUMALOG KWIKPEN) 100 unit/mL inpn Inject 15 Units subcutaneously twice daily with meals for blood glucose ANDgt;140. Add 2 units for every 50 of glucose ANDgt;150. insulin needles, DISPOSABLE, (PEN NEEDLE) 31 gauge x 5/16ANDquot; ndle USE ONE NEEDLE FOR EACH DOSE traZODone (DESYREL) 150 mg tablet Take 1-2 tablets by mouth daily at bedtime. furosemide (LASIX) 20 mg tablet 20 mg every other day. Daily cyanocobalamin (VITAMIN B-12) 1,000 mcg tab Take 1 tablet by mouth once daily. ferrous sulfate 325 mg (65 mg iron) EC tablet Take 1 tablet by mouth three times daily with meals. albuterol HFA (PROVENTIL HFA, VENTOLIN HFA) 90 mcg/actuation inhaler Inhale 2 Puffs as instructed every 6 hours as needed for Wheezing/Shortness of Breath. Potassium Chloride (SLOW-K) 8 mEq tablet Take 1 tablet by mouth once daily. tiotropium bromide (SPIRIVA RESPIMAT) 2.5 mcg/actuation mist Inhale 2 Puffs as instructed once daily. Inhale two puffs once daily. warfarin (COUMADIN) 2 mg tablet Taking 4 mg mondays, 2 mg all other days docusate sodium (COLACE) 100 mg capsule Take 1 capsule by mouth twice daily as needed for Constipation. Cholecalciferol, Vitamin D3, (VITAMIN D) 1,000 unit ORAL Tab Take 1,000 Units by mouth once daily. No current facility-administered medications for this visit. PAST MEDICAL HISTORY Diagnosis Date - Acute kidney failure with lesion of tubular necrosis (HCC) 08/19/[address] Tobias. - Adenomatous colon polyp 08/30/2012 - Anemia in chronic kidney disease(285.21) 08/31/2011 - Atrial fibrillation (HCC) 05/09/2012 - Calculus of ureter 03/24/2008 - Cardiac pacemaker in situ 08/17/2008 Sick sinus syndrome. - Cholelithiasis 05/26/2013 - Chronic kidney disease, stage III (moderate) 09/23/2009 - Chronic rhinitis - Congestive heart failure, unspecified 07/24/2008 Mitral insufficiency. - DDD (degenerative disc disease) - Diabetes mellitus (HCC) - Diverticulosis of colon (without mention of hemorrhage) 10/17/05 - Esophageal reflux 08/15/2005 - Fibromyalgia - Generalized osteoarthrosis, unspecified site - Heart valve replaced by other means 08/17/2008 #[address], [facility]. Mitral valve. - Iron deficiency 08/17/2011 - Lumbago 08/15/2005 - Melena - Myalgia and myositis, unspecified - Other and unspecified hyperlipidemia 08/15/2005 - PSVT (paroxysmal supraventricular tachycardia) ([facility]) 04/10/2011 - Sleep apnea - Type II or unspecified type diabetes mellitus without mention of complication, not stated as uncontrolled 08/15/2005 - Unspecified asthma(493.90) 08/15/2005 - Unspecified cardiovascular disease heart cath 12/15 PAST SURGICAL HISTORY Procedure Laterality Date - COLONOSCOP W/ OR W/O [facility] 10/17/05 - COLONOSCOP W/ OR W/O [facility] 08/25/2009 Colonoscopy - COLONOSCOP W/ OR W/O [facility] 10/17/2012 Colonoscopy - EGD 01/16/05 - EGD W/O OR W/BRUSH/WASH 08/25/2009 EGD - EGD W/O OR W/BRUSH/WASH 04/05/15 EGD inpt [facility] - EGD W/O OR W/BRUSH/WASH 10/30/2016 EGD - INSER DIAMOND PACER XVENOUS ATRIAL Perm pacemaker insert - LEFT HEART CATH,PERCUTANEOUS Cardiac cath, L heart - LIGATE FALLOPIAN TUBE Tubal ligation - PAST SURGICAL HISTORY OF cervical conization - PAST SURGICAL HISTORY OF 01/03/05 Heart Cath - PAST SURGICAL HISTORY OF Carpal tunnel surgery b/l wrists - PERICARDIAL FINE NEEDLE ASPIRATION 2008 Pericardial Window - REPLACEMENT OF MITRAL VALVE Mitral valve replacement, [facility]. 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 Oxygen 3 LPM at HS and with exertion. Has cane, wheelchair as needed. No safety concerns. Camping trailer during summer. ALLERGIES Allergen Reactions - Ambien [Zolpidem Ta* Unknown - Ativan [Lorazepam] Other: See Comments ANDquot;just didn't workANDquot; - Mobic [Meloxicam] Unknown - Pamelor [Nortriptyl* Unknown REVIEW OF SYSTEMS GENERAL: No weight loss, malaise or fevers. HEENT: Negative for frequent or significant headaches, No changes in hearing or vision, no nose bleeds or other nasal problems. NECK: Negative for lumps, goiter, pain and significant neck swelling. RESPIRATORY: Negative for cough, hemoptysis, wheezing or shortness of breath CARDIOVASCULAR: Negative for chest pain, leg swelling or palpitations GI: See HPI : No history of dysuria, frequency or incontinence MUSCULOSKELETAL: Negative for joint pain or swelling, back pain or muscle pain. SKIN: Negative for lesions, rash, and itching PSYCH: Negative for sleep disturbance, mood disorder and recent psychosocial stressors NEURO: No history of headaches, syncope, paralysis, seizures or tremors PHYSICAL EXAMINATION: BP 72/52 Ht 5' 2ANDquot; (1.58m) Wt 138 lb (62.6kg) BMI 25.23 kg/(m2). GENERAL APPEARANCE: Well appearing, alert, in no acute distress, well-hydrated, well nourished.. SKIN: Skin color, texture, turgor normal, no suspicious rashes or lesions. EYES: Anicteric sclera. Pupils are equally round and reactive to light. Extraocular movements are intact. . NECK: Supple, no adenopathy; thyroid symmetric, normal size, no bruits. LUNGS: Lungs clear to auscultation. No wheezing, rhonchi, rales. HEART: RRR without murmur, gallop, or rubs. No ectopy. ABDOMEN: Normal, soft, non-tender, no masses Liver edge seemed to be about 3 FB's below costal margin EXTREMITIES: No deformities, edema, skin discoloration, clubbing or cyanosis. NEUROLOGIC: Gait normal. Sensation and strength grossly intact.. ASSESSMENT AND PLAN: ASSESSMENT/PLAN: 1. Iron deficiency anemia due to chronic blood loss - ICD9: 280.0, ICD10: D50.0 (primary diagnosis) - Pt/family to ask Dr. Howard if capsule endo poss right after colonoscopy if neg. O/w could schedule separately but seems prudent to do after colonoscopy. 2. Hepatomegaly - ICD9: 789.1, ICD10: R16.0 - mild - US pend Steve Suero MD Referring Provider: SILVINO HU [[id number]] Allergies As of Date: 10/31/2017 Noted Allergy Reaction AMBIEN (ZOLPIDEM TARTRATE) 09/06/2005 16 - Unknown ATIVAN (LORAZEPAM) 09/06/2005 14 - Other: See Comments Comments: just didn't work MOBIC (MELOXICAM) 09/06/2005 16 - Unknown PAMELOR (NORTRIPTYLINE HCL) 09/06/2005 16 - Unknown Date Reviewed: 10/31/2017 Reviewed by: Steve Suero - Fully Assessed Reason for Visit: New Patient [172] Cmt: iron deficiency Primary Visit Diagnosis:Iron deficiency anemia due to chronic blood loss [D50.0] Other Visit Diagnosis:Hepatomegaly [R16.0] Prescriptions as of 10/31/2017 Sig: ATORVASTATIN 20 MG TABLET Take 1 tablet by mouth once d* PEG 3350-ELECTROLYTES 236 GRA* Refer to printed patient inst* LANCETS Use as instructed 3 to 4 TIME* VENLAFAXINE 37.5 MG TABLET Take 1 tablet by mouth twice * BLOOD SUGAR DIAGNOSTIC, DRUM-* Test blood sugar(s) 4 times d* FOLIC ACID 1 MG TABLET Take 1 tablet by mouth once d* BLOOD-GLUCOSE METER, DRUM-TYP* Accu-Check Compact Plus Meter* LEVOTHYROXINE 50 MCG TABLET TAKE ONE TABLET BY MOUTH EVER* PANTOPRAZOLE 40 MG TABLET,DEL* Take 1 tablet by mouth once d* HYDROCODONE 5 MG-ACETAMINOPHE* Take 1 tablet by mouth every * MAGNESIUM 250 MG TABLET Take 250 mg by mouth once lynette* ONDANSETRON 4 MG DISINTEGRATI* Take 1 tablet by mouth every * INSULIN GLARGINE (U-100) 100 * Inject 35 Units subcutaneousl* INSULIN LISPRO (U-100) 100 UN* Inject 15 Units subcutaneousl* PEN NEEDLE, DIABETIC 31 GAUGE* USE ONE NEEDLE FOR EACH DOSE TRAZODONE 150 MG TABLET Take 1-2 tablets by mouth lynette* FUROSEMIDE 20 MG TABLET 20 mg every other day. Daily CYANOCOBALAMIN (VIT B-12) 1,0* Take 1 tablet by mouth once d* FERROUS SULFATE 325 MG (65 MG* Take 1 tablet by mouth three * ALBUTEROL SULFATE HFA 90 MCG/* Inhale 2 Puffs as instructed * POTASSIUM CHLORIDE ER 8 MEQ T* Take 1 tablet by mouth once d* TIOTROPIUM BROMIDE 2.5 MCG/AC* Inhale 2 Puffs as instructed * WARFARIN 2 MG TABLET Taking 4 mg mondays, 2 mg all* DOCUSATE SODIUM 100 MG CAPSULE Take 1 capsule by mouth twice* CHOLECALCIFEROL (VITAMIN D3) * Take 1,000 Units by mouth onc* Problem List As Of Date 10/31/2017 Noted Resolved Asthma [J45.909] INVALID FOR* Diabetes mellitus, type II (HCC) [E11.9] INVALID FOR* ESOPHAGEAL REFLUX [K21.9] INVALID FOR* Mixed hyperlipidemia [E78.2] INVALID FOR* LUMBAGO [M54.5] INVALID FOR* Osteoarthrosis, unspecified whether generalized* Fibromyalgia [M79.7] More... 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 Heart Valve Replaced by Other Means [Z95.4] INVALID FOR* More... Cardiac pacemaker in situ [Z95.0] INVALID FOR* More... Acute kidney failure with lesion of tubular nec*INVALID FOR*01/10/2013 More... 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 Hypothyroidism [E03.9] INVALID FOR* THROMBOCYTOPENIA NOS [D69.6] INVALID FOR* COPD (chronic obstructive pulmonary disease) (H*INVALID FOR* Chronic kidney disease, stage III (moderate) [N*INVALID FOR* PSVT (paroxysmal supraventricular tachycardia) *INVALID FOR*05/09/2012 More... Iron deficiency [E61.1] INVALID FOR*02/03/2013 Anemia in chronic renal disease [N18.9, D63.1] INVALID FOR* More... Infected cat bite [W55.01XA] INVALID FOR*05/09/2012 Atrial fibrillation (HCC) [I48.91] INVALID FOR* Adenomatous colon polyp [D12.6] INVALID FOR* Tobacco use disorder [F17.200] INVALID FOR* Cholelithiasis [K80.20] INVALID FOR*03/04/2014 Unspecified pleural effusion, loculated, right *INVALID FOR*03/04/2014 Dizziness and giddiness [R42] INVALID FOR* Carotid artery disease without cerebral infarct*INVALID FOR* Other specified hypotension [I95.89] INVALID FOR* Transfusion history [Z92.89] INVALID FOR* More... Sleep apnea [G47.30] GIB (gastrointestinal bleeding) [K92.2] INVALID FOR* Moderate to severe pulmonary hypertension (HCC)*INVALID FOR* H/O mitral valve replacement [Z95.2] INVALID FOR* Type 2 diabetes mellitus with stage 3 chronic k*INVALID FOR* Vitamin D deficiency [E55.9] INVALID FOR* Anticoagulant long-term use [Z79.01] INVALID FOR* Iron deficiency anemia due to chronic blood los*INVALID FOR* Gastrointestinal hemorrhage [K92.2] INVALID FOR* Level of Service: NEW PATIENT VISIT LEVEL 3 [[id number]] Disposition: Return if symptoms worsen or fail to improve, for if capsule desired down here. Follow-up and Disposition History Recorded Encounter Status:Closed by STEVE SUERO MD on 10/31/17 MARYBETH ABS GR + CBC Collected: 10/25/2017 Status: F Source: [place] 9:00 AM [facility] [place] REPOSITORY TYPE CODE TESTS RESULT OUT OF REFERENCE UNITS RANGE LAB WWBC 3.70-11.00 k/uL [place] WBC 3.81 LAB WRBC 3.90-5.20 m/uL Low [place] RBC 3.00 LAB WHGB 11.5-15.5 g/dL Low [place] Hemoglobin 9.2 LAB WHCT 36.0-46.0 % Low [place] Hematocrit 29.7 LAB WMCV 80.0-100.0 fL [place] MCV 99.0 LAB WMCH 26.0-34.0 pg [place] MCH 30.7 LAB WMCHC 30.5-36.0 g/dL [place] MCHC 31.0 LAB WRDW 11.5-15.0 % [place] High RDW 17.8 LAB WPLT 150-400 k/uL Low [place] Platelet Cnt 74 Result Comment: NO CLOT DETECTED LAB WMPV 9.0-12.7 fL [place] MPV 11.6 Result Comment: Test performed at: [facility], [address] [place] [address] Rd[address] [place] [address]. LAB ABGRAN 1.45-7.50 k/uL Absol Gran 2.86 Count IRON AND TIBC Collected: 10/25/2017 Status: F Source: [place] 9:00 AM [facility] REPOSITORY TYPE CODE TESTS RESULT OUT OF REFERENCE UNITS RANGE LAB IRN 41-186 ug/dL Iron 71 LAB TIBC 232-386 ug/dL TIBC 261 LAB SAT 15-57 % Transferrin Saturatn 27 Performed By: #### IRON, FERR #### [facility] [address] [address] FERRITIN Collected: 10/25/2017 Status: F Source: [place] 9:00 AM [facility] REPOSITORY TYPE CODE TESTS RESULT OUT OF REFERENCE UNITS RANGE LAB FERR 14.7-205.1 ng/mL High Ferritin 809.1 Performed By: #### IRON, FERR #### [facility] [address] [address] PROTHROMBIN TIME W/INR Collected: 10/19/2017 Status: F Source: [place] 10:13 AM [facility] REPOSITORY TYPE CODE TESTS RESULT OUT OF RANGE REFERENCE UNITS LAB L300.4150 11.7-14.9 SECONDS High PROTIME 30.8 LAB L300.4200 Normal INR 2.9 Performed By: #### L300.3900 #### [facility] [address] [place], [place], [address] PROGRESS Observed: 10/18/2017 Status: COMPLETED Source: [place] 3:58 PM [facility] REPOSITORY HNO ID: [id number] Author: Arlene (Rn) CINDY Marrero Service: (none) Author Type: Registered Nurse Type: Progress Notes Filed: 10/18/2017 4:01 PM Note Text: Spoke with Mrs Emani Louis re: scheduling of capsule endoscopy of small bowel. She prefers NOT to got to [facility] in [place]. She plans on contacting [facility] to schedule there. If they can not accomodate her availability, she will call [facility] and schedule here. Chance Marrero, CINDY MARYBETH ABS GR + CBC Collected: 10/18/2017 Status: F Source: [place] 9:06 AM [facility] REPOSITORY TYPE CODE TESTS RESULT OUT OF REFERENCE UNITS RANGE LAB WWBC 3.70-11.00 k/uL Low [place] WBC 3.62 LAB WRBC 3.90-5.20 m/uL Low [place] RBC 3.35 LAB WHGB 11.5-15.5 g/dL Low [place] Hemoglobin 10.0 LAB WHCT 36.0-46.0 % Low [place] Hematocrit 32.2 LAB WMCV 80.0-100.0 fL [place] MCV 96.1 LAB WMCH 26.0-34.0 pg [place] MCH 29.9 LAB WMCHC 30.5-36.0 g/dL [place] MCHC 31.1 LAB WRDW 11.5-15.0 % [place] High RDW 16.6 LAB WPLT 150-400 k/uL Low [place] Platelet Cnt 84 LAB WMPV 9.0-12.7 fL [place] MPV 11.0 Result Comment: Test performed at: [facility], [address] [place] [address] Rd[address] [place] [address]. LAB ABGRAN 1.45-7.50 k/uL Absol Gran 2.94 Count HOSP Observed: 10/18/2017 Status: COMPLETED Source: [place] 12:00 AM [facility] REPOSITORY Patient Update (GASTMN) EMANI LOUIS ([id number]) 1940 F TXT Date Time Provider Department 10/18/17 ARLENE MARRERO (RN) GASTMN During your visit today, we recorded the following information about you: Arlene Marrero RN, RN 10/18/2017 4:01 PM Signed Spoke with Mrs Emani Louis re: scheduling of capsule endoscopy of small bowel. She prefers NOT to got to [facility] in [place]. She plans on contacting [facility] to schedule there. If they can not accomodate her availability, she will call [facility] and schedule here. Chance Marrero RN Allergies As of Date: 10/18/2017 Noted Allergy Reaction AMBIEN (ZOLPIDEM TARTRATE) 09/06/2005 16 - Unknown ATIVAN (LORAZEPAM) 09/06/2005 14 - Other: See Comments Comments: just didn't work MOBIC (MELOXICAM) 09/06/2005 16 - Unknown PAMELOR (NORTRIPTYLINE HCL) 09/06/2005 16 - Unknown Date Reviewed: 10/18/2017 Reviewed by: Manda Clifford RN, RN - Fully Assessed Prescriptions as of 10/18/2017 Sig: ATORVASTATIN 20 MG TABLET Take 1 tablet by mouth once d* PEG 3350-ELECTROLYTES 236 GRA* Refer to printed patient inst* LANCETS Use as instructed 3 to 4 TIME* VENLAFAXINE 37.5 MG TABLET Take 1 tablet by mouth twice * BLOOD SUGAR DIAGNOSTIC, DRUM-* Test blood sugar(s) 4 times d* FOLIC ACID 1 MG TABLET Take 1 tablet by mouth once d* BLOOD-GLUCOSE METER, DRUM-TYP* Accu-Check Compact Plus Meter* LEVOTHYROXINE 50 MCG TABLET TAKE ONE TABLET BY MOUTH EVER* PANTOPRAZOLE 40 MG TABLET,DEL* Take 1 tablet by mouth once d* HYDROCODONE 5 MG-ACETAMINOPHE* Take 1 tablet by mouth every * MAGNESIUM 250 MG TABLET Take 250 mg by mouth once lynette* ONDANSETRON 4 MG DISINTEGRATI* Take 1 tablet by mouth every * INSULIN GLARGINE (U-100) 100 * Inject 35 Units subcutaneousl* INSULIN LISPRO (U-100) 100 UN* Inject 15 Units subcutaneousl* PEN NEEDLE, DIABETIC 31 GAUGE* USE ONE NEEDLE FOR EACH DOSE TRAZODONE 150 MG TABLET Take 1-2 tablets by mouth lynette* FUROSEMIDE 20 MG TABLET 20 mg every other day. Daily CYANOCOBALAMIN (VIT B-12) 1,0* Take 1 tablet by mouth once d* FERROUS SULFATE 325 MG (65 MG* Take 1 tablet by mouth three * ALBUTEROL SULFATE HFA 90 MCG/* Inhale 2 Puffs as instructed * POTASSIUM CHLORIDE ER 8 MEQ T* Take 1 tablet by mouth once d* TIOTROPIUM BROMIDE 2.5 MCG/AC* Inhale 2 Puffs as instructed * WARFARIN 2 MG TABLET Taking 4 mg mondays, 2 mg all* DOCUSATE SODIUM 100 MG CAPSULE Take 1 capsule by mouth twice* CHOLECALCIFEROL (VITAMIN D3) * Take 1,000 Units by mouth onc* Problem List As Of Date 10/18/2017 Noted Resolved Asthma [J45.909] INVALID FOR* Diabetes mellitus, type II (HCC) [E11.9] INVALID FOR* ESOPHAGEAL REFLUX [K21.9] INVALID FOR* Mixed hyperlipidemia [E78.2] INVALID FOR* LUMBAGO [M54.5] INVALID FOR* Osteoarthrosis, unspecified whether generalized* Fibromyalgia [M79.7] More... 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 Heart Valve Replaced by Other Means [Z95.4] INVALID FOR* More... Cardiac pacemaker in situ [Z95.0] INVALID FOR* More... Acute kidney failure with lesion of tubular nec*INVALID FOR*01/10/2013 More... 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 Hypothyroidism [E03.9] INVALID FOR* THROMBOCYTOPENIA NOS [D69.6] INVALID FOR* COPD (chronic obstructive pulmonary disease) (H*INVALID FOR* Chronic kidney disease, stage III (moderate) [N*INVALID FOR* PSVT (paroxysmal supraventricular tachycardia) *INVALID FOR*05/09/2012 More... Iron deficiency [E61.1] INVALID FOR*02/03/2013 Anemia in chronic renal disease [N18.9, D63.1] INVALID FOR* More... Infected cat bite [W55.01XA] INVALID FOR*05/09/2012 Atrial fibrillation (HCC) [I48.91] INVALID FOR* Adenomatous colon polyp [D12.6] INVALID FOR* Tobacco use disorder [F17.200] INVALID FOR* Cholelithiasis [K80.20] INVALID FOR*03/04/2014 Unspecified pleural effusion, loculated, right *INVALID FOR*03/04/2014 Dizziness and giddiness [R42] INVALID FOR* Carotid artery disease without cerebral infarct*INVALID FOR* Other specified hypotension [I95.89] INVALID FOR* Transfusion history [Z92.89] INVALID FOR* More... Sleep apnea [G47.30] GIB (gastrointestinal bleeding) [K92.2] INVALID FOR* Moderate to severe pulmonary hypertension (HCC)*INVALID FOR* H/O mitral valve replacement [Z95.2] INVALID FOR* Type 2 diabetes mellitus with stage 3 chronic k*INVALID FOR* Vitamin D deficiency [E55.9] INVALID FOR* Anticoagulant long-term use [Z79.01] INVALID FOR* Iron deficiency anemia due to chronic blood los*INVALID FOR* Gastrointestinal hemorrhage [K92.2] INVALID FOR* Encounter Status:Closed by ARLENE MARRERO on 10/18/17 CNOV Observed: 10/16/2017 Status: COMPLETED Source: [place] 4:10 PM [facility] REPOSITORY Office Visit (GASTMN) EMANI LOUIS ([id number]) 1940 F TXT Date Time Provider Department 10/16/17 4:10 PM SILVINO HU GASTMN During your visit today, we recorded the following information about you: Temperature Pulse Blood pressure Weight 97.1 degrees 103/minute 109/45 63.5 kg Height 1.575 m Silvino Hu MD 10/18/2017 2:00 PM Signed [facility] NOTE NAME: EMANI LOUIS CLINIC NO.: [id number] DATE OF SERVICE: 10/16/2017 Office visit HISTORY: Lex was last seen by me in the office on August 09, 2016 with the impression of multifocal anemia on the basis of chronic disease, moderate renal insufficiency and chronic thrombocytopenia. 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 However, other than thrombocytopenia, the patient has not had varices, has a normal albumin and has no previous diagnosis of cirrhosis. Previous imaging studies back to 2014 did not show evidence of cirrhosis. The patient had been doing well, but has had a definite uptake in her transfusion requirement, requiring 5 units last month. She does note intermittent episodes of pink-tinged mucus and dark stool. OBJECTIVE: Vital signs show blood pressure of 109/45, a pulse of 117, a weight of 140. Abdomen is soft, nontender. MEDICATIONS: Include Effexor, thyroid, Protonix, Newbern, magnesium, Lantus, Humalog, Desyrel, Lipitor, Lasix, vitamin supplements, albuterol, Spiriva, Coumadin, Colace. LABORATORY DATA: Laboratories revealed an EGD on October 30, [address] Johnson showed normal esophagus, stomach, and duodenum with no specimens. IMPRESSION/RECOMMENDATIONS: At this time, the patient seems to have had an increase in her transfusion requirement and has noted red rectal bleeding. I would suggest that we update her luminal gastrointestinal tract evaluation with a capsule endoscopy and a colonoscopy. We will ask her Primary if she can stop the Coumadin for 3 days prior to the procedure. We will also obtain the right upper quadrant ultrasound to see if there is any evidence of hepatic scarring. Once again, thank you very much for allowing me to participate in the care of your patient. Sincerely, DICTATED BY: Elza Chan/Palmer JOB# [id number] Silvino Hu MD 10/16/2017 4:19 PM Signed Please zachariah above as close to Marybeth as possible. Follow Up Clerk: Transcribed Clinic Note (gareth) ID: [id number] Author: SILVINO HU Signed by SILVINO HU MD on 10/18/2017 at 2:00 PM Document text: [facility] NOTE NAME: EMANI LOUIS [facility] NO.: [id number] DATE OF SERVICE: 10/16/2017 Office visit HISTORY: Lex was last seen by me in the office on August 09, 2016 with the impression of multifocal anemia on the basis of chronic disease, moderate renal insufficiency and chronic thrombocytopenia. 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 However, other than thrombocytopenia, the patient has not had varices, has a normal albumin and has no previous diagnosis of cirrhosis. Previous imaging studies back to 2014 did not show evidence of cirrhosis. The patient had been doing well, but has had a definite uptake in her transfusion requirement, requiring 5 units last month. She does note intermittent episodes of pink-tinged mucus and dark stool. OBJECTIVE: Vital signs show blood pressure of 109/45, a pulse of 117, a weight of 140. Abdomen is soft, nontender. MEDICATIONS: Include Effexor, thyroid, Protonix, Newbern, magnesium, Lantus, Humalog, Desyrel, Lipitor, Lasix, vitamin supplements, albuterol, Spiriva, Coumadin, Colace. LABORATORY DATA: Laboratories revealed an EGD on October 30, [address] Johnson showed normal esophagus, stomach, and duodenum with no specimens. IMPRESSION/RECOMMENDATIONS: At this time, the patient seems to have had an increase in her transfusion requirement and has noted red rectal bleeding. I would suggest that we update her luminal gastrointestinal tract evaluation with a capsule endoscopy and a colonoscopy. We will ask her Primary if she can stop the Coumadin for 3 days prior to the procedure. We will also obtain the right upper quadrant ultrasound to see if there is any evidence of hepatic scarring. Once again, thank you very much for allowing me to participate in the care of your patient. Sincerely, DICTATED BY: Elza Chan JOB# [id number] Display document [id number] only Referring Provider: YARA GARAY [[id number]] Allergies As of Date: 10/16/2017 Noted Allergy Reaction AMBIEN (ZOLPIDEM TARTRATE) 09/06/2005 16 - Unknown ATIVAN (LORAZEPAM) 09/06/2005 14 - Other: See Comments Comments: just didn't work MOBIC (MELOXICAM) 09/06/2005 16 - Unknown PAMELOR (NORTRIPTYLINE HCL) 09/06/2005 16 - Unknown Date Reviewed: 10/16/2017 Reviewed by: Justin Torres LPN - Fully Assessed Reason for Visit: Established Patient [175] Cmt: anemia Primary Visit Diagnosis:Iron deficiency anemia, unspecified iron deficiency anemia type [D50.9] Other Visit Diagnoses:Gastrointestinal hemorrhage, unspecified gastrointestinal hemorrhage type [K92.2] Adenomatous polyp of colon, unspecified part of colon [D12.6] Anticoagulant long-term use [Z79.01] Order(s):COLONOSCOPY - DIAGNOSTIC [[id number]] Order #: [id number] FUTURE peg 3350-Electrolytes (GOLYTELY) 236-22.74-6.74 - 5.86 gram suspensionRefer to printed patient instructions that will be mailed to you.Disp: 4 LRfl: 0 US ABD RT UPPER QUADRANT [[id number]] Order #: [id number] FUTURE CAPSULE ENDOSCOPY SMALL BOWEL [[id number]] Order #: [id number] FUTURE Prescriptions as of 10/16/2017 Sig: LANCETS Use as instructed 3 to 4 TIME* VENLAFAXINE 37.5 MG TABLET Take 1 tablet by mouth twice * BLOOD SUGAR DIAGNOSTIC, DRUM-* Test blood sugar(s) 4 times d* FOLIC ACID 1 MG TABLET Take 1 tablet by mouth once d* BLOOD-GLUCOSE METER, DRUM-TYP* Accu-Check Compact Plus Meter* LEVOTHYROXINE 50 MCG TABLET TAKE ONE TABLET BY MOUTH EVER* PANTOPRAZOLE 40 MG TABLET,DEL* Take 1 tablet by mouth once d* HYDROCODONE 5 MG-ACETAMINOPHE* Take 1 tablet by mouth every * MAGNESIUM 250 MG TABLET Take 250 mg by mouth once lynette* INSULIN GLARGINE (U-100) 100 * Inject 35 Units subcutaneousl* INSULIN LISPRO (U-100) 100 UN* Inject 15 Units subcutaneousl* PEN NEEDLE, DIABETIC 31 GAUGE* USE ONE NEEDLE FOR EACH DOSE TRAZODONE 150 MG TABLET Take 1-2 tablets by mouth lynette* ATORVASTATIN 20 MG TABLET Take 1 tablet by mouth once d* FUROSEMIDE 20 MG TABLET 20 mg every other day. Daily CYANOCOBALAMIN (VIT B-12) 1,0* Take 1 tablet by mouth once d* FERROUS SULFATE 325 MG (65 MG* Take 1 tablet by mouth three * ALBUTEROL SULFATE HFA 90 MCG/* Inhale 2 Puffs as instructed * POTASSIUM CHLORIDE ER 8 MEQ T* Take 1 tablet by mouth once d* TIOTROPIUM BROMIDE 2.5 MCG/AC* Inhale 2 Puffs as instructed * WARFARIN 2 MG TABLET Taking 4 mg mondays, 2 mg all* DOCUSATE SODIUM 100 MG CAPSULE Take 1 capsule by mouth twice* CHOLECALCIFEROL (VITAMIN D3) * Take 1,000 Units by mouth onc* PEG 3350-ELECTROLYTES 236 GRA* Refer to printed patient inst* ONDANSETRON 4 MG DISINTEGRATI* Take 1 tablet by mouth every * Medication notes this encounter WARFARIN 2 MG TABLET >> Teepree Torres BAKER HEAD 10/16/2017 3:48 PM >> TORRES BAKER HEAD, TEEPREE rc Oct 16, 2017 3:48 PM Taking 2 1/2 mg daily ONDANSETRON 4 MG DISINTEGRATING TABLET >> Teepree Torres BAKER HEAD 10/16/2017 3:47 PM >> TORRES BAKER HEAD, TEEPREE e Oct 16, 2017 3:47 PM Not taking Problem List As Of Date 10/16/2017 Noted Resolved Asthma [J45.909] INVALID FOR* Diabetes mellitus, type II (HCC) [E11.9] INVALID FOR* ESOPHAGEAL REFLUX [K21.9] INVALID FOR* Mixed hyperlipidemia [E78.2] INVALID FOR* LUMBAGO [M54.5] INVALID FOR* Osteoarthrosis, unspecified whether generalized* Fibromyalgia [M79.7] More... 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 Heart Valve Replaced by Other Means [Z95.4] INVALID FOR* More... Cardiac pacemaker in situ [Z95.0] INVALID FOR* More... Acute kidney failure with lesion of tubular nec*INVALID FOR*01/10/2013 More... 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 Hypothyroidism [E03.9] INVALID FOR* THROMBOCYTOPENIA NOS [D69.6] INVALID FOR* COPD (chronic obstructive pulmonary disease) (H*INVALID FOR* Chronic kidney disease, stage III (moderate) [N*INVALID FOR* PSVT (paroxysmal supraventricular tachycardia) *INVALID FOR*05/09/2012 More... Iron deficiency [E61.1] INVALID FOR*02/03/2013 Anemia in chronic renal disease [N18.9, D63.1] INVALID FOR* More... Infected cat bite [W55.01XA] INVALID FOR*05/09/2012 Atrial fibrillation (HCC) [I48.91] INVALID FOR* Adenomatous colon polyp [D12.6] INVALID FOR* Tobacco use disorder [F17.200] INVALID FOR* Cholelithiasis [K80.20] INVALID FOR*03/04/2014 Unspecified pleural effusion, loculated, right *INVALID FOR*03/04/2014 Dizziness and giddiness [R42] INVALID FOR* Carotid artery disease without cerebral infarct*INVALID FOR* Other specified hypotension [I95.89] INVALID FOR* Transfusion history [Z92.89] INVALID FOR* More... Sleep apnea [G47.30] GIB (gastrointestinal bleeding) [K92.2] INVALID FOR* Moderate to severe pulmonary hypertension (HCC)*INVALID FOR* H/O mitral valve replacement [Z95.2] INVALID FOR* Type 2 diabetes mellitus with stage 3 chronic k*INVALID FOR* Vitamin D deficiency [E55.9] INVALID FOR* Anticoagulant long-term use [Z79.01] INVALID FOR* Iron deficiency anemia due to chronic blood los*INVALID FOR* Gastrointestinal hemorrhage [K92.2] INVALID FOR* Other instructions from your clinician: Please zachariah above as close to [place] as possible. Prescriptions ordered this encounter Disp Refills Start End PEG 3350-ELECTROLYTES 236 GRAM-22.74* 4 L 0 10/16/2017 Sig: Refer to printed patient instructions that will be mailed to you. Encounter Status:Closed by SILVINO HU MD on 10/18/17 PROGRESS Observed: 10/16/2017 Status: COMPLETED Source: [place] 12:00 AM [facility] REPOSITORY HNO ID: [id number] Author: Silvino Hu Service: Abstract Author Type: Physician Type: Progress Notes Filed: 10/18/2017 2:00 PM Note Text: [facility] NOTE NAME: EMANI LOUIS [facility] NO.: [id number] DATE OF SERVICE: 10/16/2017 Office visit HISTORY: Lex was last seen by me in the office on August 09, 2016 with the impression of multifocal anemia on the basis of chronic disease, moderate renal insufficiency and chronic thrombocytopenia. 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 However, other than thrombocytopenia, the patient has not had varices, has a normal albumin and has no previous diagnosis of cirrhosis. Previous imaging studies back to 2014 did not show evidence of cirrhosis. The patient had been doing well, but has had a definite uptake in her transfusion requirement, requiring 5 units last month. She does note intermittent episodes of pink-tinged mucus and dark stool. OBJECTIVE: Vital signs show blood pressure of 109/45, a pulse of 117, a weight of 140. Abdomen is soft, nontender. MEDICATIONS: Include Effexor, thyroid, Protonix, [place], magnesium, Lantus, Humalog, Desyrel, Lipitor, Lasix, vitamin supplements, albuterol, Spiriva, Coumadin, Colace. LABORATORY DATA: Laboratories revealed an EGD on October 30, [address] Johnson showed normal esophagus, stomach, and duodenum with no specimens. IMPRESSION/RECOMMENDATIONS: At this time, the patient seems to have had an increase in her transfusion requirement and has noted red rectal bleeding. I would suggest that we update her luminal gastrointestinal tract evaluation with a capsule endoscopy and a colonoscopy. We will ask her Primary if she can stop the Coumadin for 3 days prior to the procedure. We will also obtain the right upper quadrant ultrasound to see if there is any evidence of hepatic scarring. Once again, thank you very much for allowing me to participate in the care of your patient. Sincerely, DICTATED BY: Silvino Hu M.D. TATI/Palmer JOB# [id number] MARYBETH ABS GR + CBC Collected: 10/11/2017 Status: F Source: [place] 9:04 AM [facility] REPOSITORY TYPE CODE TESTS RESULT OUT OF REFERENCE UNITS RANGE LAB WWBC 3.70-11.00 k/uL Low [place] WBC 3.28 LAB WRBC 3.90-5.20 m/uL Low [place] RBC 3.40 LAB WHGB 11.5-15.5 g/dL Low [place] Hemoglobin 10.0 LAB WHCT 36.0-46.0 % Low [place] Hematocrit 32.5 LAB WMCV 80.0-100.0 fL [place] MCV 95.6 LAB WMCH 26.0-34.0 pg [place] MCH 29.4 LAB WMCHC 30.5-36.0 g/dL [place] MCHC 30.8 LAB WRDW 11.5-15.0 % [place] High RDW 16.2 LAB WPLT 150-400 k/uL Low [place] Platelet Cnt 81 LAB WMPV 9.0-12.7 fL [place] MPV 11.3 Result Comment: Test performed at: [facility], [address] [place] [address] Rd[address] [place] [address]. LAB ABGRAN 1.45-7.50 k/uL Absol Gran 2.59 Count CNPN Observed: 10/09/2017 Status: COMPLETED Source: [place] 12:00 AM [facility] REPOSITORY Telephone (FIORELLA) EMANI LOUIS ([id number]) 1940 F TXT Date Time Provider Department 10/09/17 YARA GARAY During your visit today, we recorded the following information about you: Yara Garay MD 10/09/2017 8:42 AM Signed Please call and schedule patient for INJECTAFER 750mg IV weekly x 2 ( She is coming on ) Component Latest Ref Rng ANDamp; Units 10/08/2017 WBC, Marybeth 3.70 - 11.00 k/uL 3.74 RBC, Marybeth 3.90 - 5.20 m/uL 3.82 (L) Hemoglobin, [place] 11.5 - 15.5 g/dL 11.3 (L) Hematocrit, [place] 36.0 - 46.0 % 36.4 MCV, [place] 80.0 - 100.0 fL 95.3 MCH, [place] 26.0 - 34.0 pg 29.6 MCHC, [place] 30.5 - 36.0 g/dL 31.0 RDW, [place] 11.5 - 15.0 % 17.0 (H) Platelet Cnt, [place] 150 - 400 k/uL 91 (L) MPV, Marybeth 9.0 - 12.7 fL 10.9 Absol Gran Count 1.45 - 7.50 k/uL 2.92 Iron 41 - 186 ug/dL 33 (L) TIBC 232 - 386 ug/dL 320 Transferrin Saturation 15 - 57 % 10 (L) Ferritin 14.7 - 205.1 ng/mL 49.8 MD Bri Garciaissa Psr [facility] 10/09/2017 9:50 AM Signed Left message for patient to contact office for message below. Please document and close when completed. Please inform patient of appointment scheduled on 10/15. Shonda Mendes PSR 10/09/2017 4:47 PM Signed Patient notified. Allergies As of Date: 10/09/2017 Noted Allergy Reaction AMBIEN (ZOLPIDEM TARTRATE) 09/06/2005 16 - Unknown ATIVAN (LORAZEPAM) 09/06/2005 14 - Other: See Comments Comments: just didn't work MOBIC (MELOXICAM) 09/06/2005 16 - Unknown PAMELOR (NORTRIPTYLINE HCL) 09/06/2005 16 - Unknown Date Reviewed: 10/08/2017 Reviewed by: Celia Carpenter LPN - Fully Assessed Reason for Visit: Treatment Planning [881] Prescriptions as of 10/09/2017 Sig: VENLAFAXINE 37.5 MG TABLET Take 1 tablet by mouth twice * BLOOD SUGAR DIAGNOSTIC, DRUM-* Test blood sugar(s) 4 times d* FOLIC ACID 1 MG TABLET Take 1 tablet by mouth once d* BLOOD-GLUCOSE METER, DRUM-TYP* Accu-Check Compact Plus Meter* LEVOTHYROXINE 50 MCG TABLET TAKE ONE TABLET BY MOUTH EVER* PANTOPRAZOLE 40 MG TABLET,DEL* Take 1 tablet by mouth once d* HYDROCODONE 5 MG-ACETAMINOPHE* Take 1 tablet by mouth every * MAGNESIUM 250 MG TABLET Take 250 mg by mouth once lynette* LANCETS Use as instructed 3 to 4 TIME* ONDANSETRON 4 MG DISINTEGRATI* Take 1 tablet by mouth every * INSULIN GLARGINE (U-100) 100 * Inject 35 Units subcutaneousl* INSULIN LISPRO (U-100) 100 UN* Inject 15 Units subcutaneousl* PEN NEEDLE, DIABETIC 31 GAUGE* USE ONE NEEDLE FOR EACH DOSE TRAZODONE 150 MG TABLET Take 1-2 tablets by mouth lynette* ATORVASTATIN 20 MG TABLET Take 1 tablet by mouth once d* FUROSEMIDE 20 MG TABLET 20 mg every other day. Daily CYANOCOBALAMIN (VIT B-12) 1,0* Take 1 tablet by mouth once d* FERROUS SULFATE 325 MG (65 MG* Take 1 tablet by mouth three * ALBUTEROL SULFATE HFA 90 MCG/* Inhale 2 Puffs as instructed * POTASSIUM CHLORIDE ER 8 MEQ T* Take 1 tablet by mouth once d* TIOTROPIUM BROMIDE 2.5 MCG/AC* Inhale 2 Puffs as instructed * WARFARIN 2 MG TABLET Taking 4 mg mondays, 2 mg all* DOCUSATE SODIUM 100 MG CAPSULE Take 1 capsule by mouth twice* CHOLECALCIFEROL (VITAMIN D3) * Take 1,000 Units by mouth onc* Problem List As Of Date 10/09/2017 Noted Resolved Asthma [J45.909] INVALID FOR* Diabetes mellitus, type II (HCC) [E11.9] INVALID FOR* ESOPHAGEAL REFLUX [K21.9] INVALID FOR* Mixed hyperlipidemia [E78.2] INVALID FOR* LUMBAGO [M54.5] INVALID FOR* Osteoarthrosis, unspecified whether generalized* Fibromyalgia [M79.7] More... 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 Heart Valve Replaced by Other Means [Z95.4] INVALID FOR* More... Cardiac pacemaker in situ [Z95.0] INVALID FOR* More... Acute kidney failure with lesion of tubular nec*INVALID FOR*01/10/2013 More... 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 Hypothyroidism [E03.9] INVALID FOR* THROMBOCYTOPENIA NOS [D69.6] INVALID FOR* COPD (chronic obstructive pulmonary disease) (H*INVALID FOR* Chronic kidney disease, stage III (moderate) [N*INVALID FOR* PSVT (paroxysmal supraventricular tachycardia) *INVALID FOR*05/09/2012 More... Iron deficiency [E61.1] INVALID FOR*02/03/2013 Anemia in chronic renal disease [N18.9, D63.1] INVALID FOR* More... Infected cat bite [W55.01XA] INVALID FOR*05/09/2012 Atrial fibrillation (HCC) [I48.91] INVALID FOR* Adenomatous colon polyp [D12.6] INVALID FOR* Tobacco use disorder [F17.200] INVALID FOR* Cholelithiasis [K80.20] INVALID FOR*03/04/2014 Unspecified pleural effusion, loculated, right *INVALID FOR*03/04/2014 Dizziness and giddiness [R42] INVALID FOR* Carotid artery disease without cerebral infarct*INVALID FOR* Other specified hypotension [I95.89] INVALID FOR* Transfusion history [Z92.89] INVALID FOR* More... Sleep apnea [G47.30] GIB (gastrointestinal bleeding) [K92.2] INVALID FOR* Moderate to severe pulmonary hypertension (HCC)*INVALID FOR* H/O mitral valve replacement [Z95.2] INVALID FOR* Type 2 diabetes mellitus with stage 3 chronic k*INVALID FOR* Vitamin D deficiency [E55.9] INVALID FOR* Anticoagulant long-term use [Z79.01] INVALID FOR* Iron deficiency anemia due to chronic blood los*INVALID FOR* Gastrointestinal hemorrhage [K92.2] INVALID FOR* Encounter Status:Closed by SHERLYN GRADY PSR on 10/09/17 PROGRESS Observed: 10/08/2017 Status: COMPLETED Source: [place] 9:57 AM [facility] REPOSITORY HNO ID: [id number] Author: Yara Garay Service: (none) Author Type: Physician Type: Progress Notes Filed: 10/09/2017 9:10 AM Note Text: PATIENT NAME: Emani Louis. CLINIC NO: [id number]. ATTENDING PHYSICIAN: Yara Garay MD. DATE OF SERVICE:10/08/2016. ? DIAGNOSIS: Anemia of chronic disease secondary to renal failure and PAN cirrhosis AND diabetes. chronic GI bleeding secondary to Coumadin therapy. ? HPI: Mrs. Louis is a 76-year-old white female with anemia chronic disease on iron and Aranesp injection for treatment of her anemia secondary to chronic renal failure. 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 She is on Coumadin for mechanical prosthetic mitral valve. She also has chronic asymptomatic hypotension, congestive heart failure and respiratory failure on chronic oxygen. ?? Patient has a previous GI evaluation which showed no source of bleeding. Her last Endoscopy Study was several years ago with Dr. Hu. ?? Interim history:?Mrs. Louis was transfused multiple times last month, almost every 2- 3 weeks. Patient is on Coumadin because of mechanical prosthetic mitral valve replacement.?Her PT/ INR is about 3 - 4. Patient has?increased fatigue?because of anemia. She has been taking iron 3 times daily. She also has?chronically hypotensive,?she has no?dizziness and lightheadedness. She was on Aranesp injection in between blood transfusion for her anemia. patient is scheduled for capsule endoscopy next month with Dr. Hu. She has no jaundice, ascites or encephalopathy. She is not taking aspirin or NSAIDs. However, her diet varies day to day because of loss of appetite and anorexia. All medications AND allergies updated and reviewed by me. REVIEW OF SYSTEMS: ? CONSTITUTIONAL: No fevers, chills, nightsweats, unintended weight loss HEENT: Denies frequent or severe heaches, nasal congestion/sinus symptoms, problematic allergy problems. EYES: No diplopia or blurry vision. CARDIOVASCULAR: No chest pain, + dyspnea with exertion, palpitations, orthopnea, PND, ankle edema. PULM: No dyspnea, unexplained cough. GI: No dysphagia/odynophagia, problematic reflux, constipation, diarrhea, changes in stool habits, hematochezia, melena. : No new urinary complaints, including dysuria, gross hematuria or pyuria. NEURO: No new balance problems, peripheral weakness/paresthesias or numbness of concern. MUSC-SKEL: No new joint pain, swelling, or erythema. PSY: No concerns regarding depression, anxiety or panic. INTEGUMENTARY: No new skin changes (rash, new or changing mole, new growth) ? PHYSICAL EXAMINATION: 76-year-old female appeared to be no acute distressed BP 62/39 Pulse 108 Temp 97.4 Wt 139 lb (63.1kg) HEENT: Head is normocephalic, atraumatic. Sclerae white, conjunctivae pink. PEERL. EOMs are intact. Oropharynx is benign. Complexion pale LYMPHATICS: There is no palpable adenopathy in the neck, supraclavicular region, axillae, or groin. LUNGS: Lungs are clear to percussion and auscultation. HEART: Heart is regular with a 2/6 systolic murmurs, + prosthetic mitral clicks no gallops, or rubs. ABDOMEN: Soft and nontender without organomegaly. No masses can be palpated. EXTREMITIES: Are without edema. NEUROLOGIC: Exam is physiologic ? LABORATORY DATA: Component Latest Ref Rng AND Units 10/08/2017 WBC, [place] 3.70 - 11.00 k/uL 3.74 RBC, [place] 3.90 - 5.20 m/uL 3.82 (L) Hemoglobin, [place] 11.5 - 15.5 g/dL 11.3 (L) Hematocrit, [place] 36.0 - 46.0 % 36.4 MCV, [place] 80.0 - 100.0 fL 95.3 MCH, [place] 26.0 - 34.0 pg 29.6 MCHC, [place] 30.5 - 36.0 g/dL 31.0 RDW, [place] 11.5 - 15.0 % 17.0 (H) Platelet Cnt, Marybeth 150 - 400 k/uL 91 (L) MPV, [place] 9.0 - 12.7 fL 10.9 Absol Gran Count 1.45 - 7.50 k/uL 2.92 Component Latest Ref Rng AND Units 10/08/2017 Protein, Total 6.3 - 8.0 g/dL 7.0 Albumin 3.9 - 4.9 g/dL 4.0 Calcium 8.5 - 10.2 mg/dL 9.2 Bilirubin, Total 0.2 - 1.3 mg/dL 0.5 Alkaline Phosphatase 32 - 117 U/L 71 AST 13 - 35 U/L 9 (L) Glucose 74 - 99 mg/dL 116 (H) BUN 7 - 21 mg/dL 18 Creatinine 0.58 - 0.96 mg/dL 1.55 (H) Sodium 136 - 144 mmol/L 143 Potassium 3.7 - 5.1 mmol/L 4.3 Chloride 97 - 105 mmol/L 108 (H) CO2 22 - 30 mmol/L 24 Anion Gap 9 - 18 mmol/L 11 ALT 7 - 38 U/L 8 eGFR- 40 eGFR-All Other Races . 33 Component Latest Ref Rng AND Units 10/08/2017 Iron 41 - 186 ug/dL 33 (L) TIBC 232 - 386 ug/dL 320 Transferrin Saturation 15 - 57 % 10 (L) Ferritin 14.7 - 205.1 ng/mL 49.8 ASSESSMENT: 76-year-old female with history of chronic renal failure (stage III), and PAN cirrhosis, and pancytopenia and chronic anemia, iron deficiency secondary to GI bleeding on warfarin. ? PLAN: - Refer to GI for capsule endoscopy study next month. - Repeat iron study today and continue to monitor CBC weekly for possible blood transfusion or Aranesp injection if hemoglobin is less than 8.0 for blood transfusion or hemoglobin less than 10 for Aranesp injection every 14 days. - Follow-up with PCP and cardiology regarding anticoagulation therapy. Keep PT/INR in 2.0 - 3.0 because of bleeding and thrombocytopenia. I spent 25 minutes in the visit, with more than 50% of the total [id number] time of the visit in counseling / coordination of care. - avoid aspirin and NSAIDs; dietary consult to maintain a proper diet with warfarin therapy. - repeat CBC, CMP, iron study OV in 3 months. ? Yara Garay MD. ELECTRONICALLY SIGNED ? Cc: Dr. [facility] Dr. Silvino Hu. CNOVSP Observed: 10/08/2017 Status: COMPLETED Source: [place] [address]:30 AM [facility] [place] REPOSITORY Visit (SP) Office (FIORELLA) EMANI LOUIS ([id number]) 1940 F TXT Date Time Provider Department 10/08/17 9:30 AM YARA GARAY During your visit today, we recorded the following information about you: Temperature Pulse Blood pressure Weight 97.4 degrees 108/minute 62/39 63 kg Celia Carpenter LPN 10/08/2017 9:44 AM Signed Est patient, four month ov. Discuss recent labs. Celia Garay MD 10/09/2017 9:10 AM Signed PATIENT NAME: Emani Louis. CLINIC NO: [id number]. ATTENDING PHYSICIAN: Yara Garay MD. DATE OF SERVICE:10/08/2016. ? DIAGNOSIS: Anemia of chronic disease secondary to renal failure and PAN cirrhosis ANDamp; diabetes. chronic GI bleeding secondary to Coumadin therapy. ? HPI: Mrs. Louis is a 76-year-old white female with anemia chronic disease on iron and Aranesp injection for treatment of her anemia secondary to chronic renal failure. 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 She is on Coumadin for mechanical prosthetic mitral valve. She also has chronic asymptomatic hypotension, congestive heart failure and respiratory failure on chronic oxygen. ?? Patient has a previous GI evaluation which showed no source of bleeding. Her last Endoscopy Study was several years ago with Dr. Hu. ?? Interim history:?Mrs. Louis was transfused multiple times last month, almost every 2- 3 weeks. Patient is on Coumadin because of mechanical prosthetic mitral valve replacement.?Her PT/ INR is about 3 - 4. Patient has?increased fatigue?because of anemia. She has been taking iron 3 times daily. She also has?chronically hypotensive,?she has no?dizziness and lightheadedness. She was on Aranesp injection in between blood transfusion for her anemia. patient is scheduled for capsule endoscopy next month with Dr. Hu. She has no jaundice, ascites or encephalopathy. She is not taking aspirin or NSAIDs. However, her diet varies day to day because of loss of appetite and anorexia. All medications ANDamp; allergies updated and reviewed by me. REVIEW OF SYSTEMS: ? CONSTITUTIONAL: No fevers, chills, nightsweats, unintended weight loss HEENT: Denies frequent or severe heaches, nasal congestion/sinus symptoms, problematic allergy problems. EYES: No diplopia or blurry vision. CARDIOVASCULAR: No chest pain, + dyspnea with exertion, palpitations, orthopnea, PND, ankle edema. PULM: No dyspnea, unexplained cough. GI: No dysphagia/odynophagia, problematic reflux, constipation, diarrhea, changes in stool habits, hematochezia, melena. : No new urinary complaints, including dysuria, gross hematuria or pyuria. NEURO: No new balance problems, peripheral weakness/paresthesias or numbness of concern. MUSC-SKEL: No new joint pain, swelling, or erythema. PSY: No concerns regarding depression, anxiety or panic. INTEGUMENTARY: No new skin changes (rash, new or changing mole, new growth) ? PHYSICAL EXAMINATION: 76-year-old female appeared to be no acute distressed BP 62/39 Pulse 108 Temp 97.4 Wt 139 lb (63.1kg) HEENT: Head is normocephalic, atraumatic. Sclerae white, conjunctivae pink. PEERL. EOMs are intact. Oropharynx is benign. Complexion pale LYMPHATICS: There is no palpable adenopathy in the neck, supraclavicular region, axillae, or groin. LUNGS: Lungs are clear to percussion and auscultation. HEART: Heart is regular with a 2/6 systolic murmurs, + prosthetic mitral clicks no gallops, or rubs. ABDOMEN: Soft and nontender without organomegaly. No masses can be palpated. EXTREMITIES: Are without edema. NEUROLOGIC: Exam is physiologic ? LABORATORY DATA: Component Latest Ref Rng ANDamp; Units 10/08/2017 WBC, [place] 3.70 - 11.00 k/uL 3.74 RBC, [place] 3.90 - 5.20 m/uL 3.82 (L) Hemoglobin, [place] 11.5 - 15.5 g/dL 11.3 (L) Hematocrit, [place] 36.0 - 46.0 % 36.4 MCV, [place] 80.0 - 100.0 fL 95.3 MCH, [place] 26.0 - 34.0 pg 29.6 MCHC, [place] 30.5 - 36.0 g/dL 31.0 RDW, [place] 11.5 - 15.0 % 17.0 (H) Platelet Cnt, [place] 150 - 400 k/uL 91 (L) MPV, [place] 9.0 - 12.7 fL 10.9 Absol Gran Count 1.45 - 7.50 k/uL 2.92 Component Latest Ref Rng ANDamp; Units 10/08/2017 Protein, Total 6.3 - 8.0 g/dL 7.0 Albumin 3.9 - 4.9 g/dL 4.0 Calcium 8.5 - 10.2 mg/dL 9.2 Bilirubin, Total 0.2 - 1.3 mg/dL 0.5 Alkaline Phosphatase 32 - 117 U/L 71 AST 13 - 35 U/L 9 (L) Glucose 74 - 99 mg/dL 116 (H) BUN 7 - 21 mg/dL 18 Creatinine 0.58 - 0.96 mg/dL 1.55 (H) Sodium 136 - 144 mmol/L 143 Potassium 3.7 - 5.1 mmol/L 4.3 Chloride 97 - 105 mmol/L 108 (H) CO2 22 - 30 mmol/L 24 Anion Gap 9 - 18 mmol/L 11 ALT 7 - 38 U/L 8 eGFR- 40 eGFR-All Other Races . 33 Component Latest Ref Rng ANDamp; Units 10/08/2017 Iron 41 - 186 ug/dL 33 (L) TIBC 232 - 386 ug/dL 320 Transferrin Saturation 15 - 57 % 10 (L) Ferritin 14.7 - 205.1 ng/mL 49.8 ASSESSMENT: 76-year-old female with history of chronic renal failure (stage III), and PAN cirrhosis, and pancytopenia and chronic anemia, iron deficiency secondary to GI bleeding on warfarin. ? PLAN: - Refer to GI for capsule endoscopy study next month. - Repeat iron study today and continue to monitor CBC weekly for possible blood transfusion or Aranesp injection if hemoglobin is less than 8.0 for blood transfusion or hemoglobin less than 10 for Aranesp injection every 14 days. - Follow-up with PCP and cardiology regarding anticoagulation therapy. Keep PT/INR in 2.0 - 3.0 because of bleeding and thrombocytopenia. I spent 25 minutes in the visit, with more than 50% of the total [id number] time of the visit in counseling / coordination of care. - avoid aspirin and NSAIDs; dietary consult to maintain a proper diet with warfarin therapy. - repeat CBC, CMP, iron study OV in 3 months. ? Yara Garay MD. ELECTRONICALLY SIGNED ? Cc: Dr. Haasori Dr. Silvino Hu. Referring Provider: YARA GARAY [[id number]] Allergies As of Date: 10/08/2017 Noted Allergy Reaction AMBIEN (ZOLPIDEM TARTRATE) 09/06/2005 16 - Unknown ATIVAN (LORAZEPAM) 09/06/2005 14 - Other: See Comments Comments: just didn't work MOBIC (MELOXICAM) 09/06/2005 16 - Unknown PAMELOR (NORTRIPTYLINE HCL) 09/06/2005 16 - Unknown Date Reviewed: 10/08/2017 Reviewed by: Celia Carpenter LPN - Fully Assessed Reason for Visit: Established Patient [175] Primary Visit Diagnosis:Anemia in stage 3 chronic kidney disease [N18.3, D63.1] Other Visit Diagnoses:Chronic kidney disease, stage III (moderate) [N18.3] Thrombocytopenia, unspecified (HCC) [D69.6] Gastrointestinal hemorrhage, unspecified gastrointestinal hemorrhage type [K92.2] Anticoagulant long-term use [Z79.01] Iron deficiency anemia due to chronic blood loss [D50.0] Level of Service: EST PATIENT VISIT LEVEL 4 [[id number]] Disposition: Return in about 3 months (around 01/05/2018). LOS history recorded Follow-up and Disposition History Recorded Prescriptions as of 10/08/2017 Sig: VENLAFAXINE 37.5 MG TABLET Take 1 tablet by mouth twice * BLOOD SUGAR DIAGNOSTIC, DRUM-* Test blood sugar(s) 4 times d* FOLIC ACID 1 MG TABLET Take 1 tablet by mouth once d* BLOOD-GLUCOSE METER, DRUM-TYP* Accu-Check Compact Plus Meter* LEVOTHYROXINE 50 MCG TABLET TAKE ONE TABLET BY MOUTH EVER* PANTOPRAZOLE 40 MG TABLET,DEL* Take 1 tablet by mouth once d* HYDROCODONE 5 MG-ACETAMINOPHE* Take 1 tablet by mouth every * MAGNESIUM 250 MG TABLET Take 250 mg by mouth once lynette* LANCETS Use as instructed 3 to 4 TIME* ONDANSETRON 4 MG DISINTEGRATI* Take 1 tablet by mouth every * INSULIN GLARGINE (U-100) 100 * Inject 35 Units subcutaneousl* INSULIN LISPRO (U-100) 100 UN* Inject 15 Units subcutaneousl* PEN NEEDLE, DIABETIC 31 GAUGE* USE ONE NEEDLE FOR EACH DOSE TRAZODONE 150 MG TABLET Take 1-2 tablets by mouth lynette* ATORVASTATIN 20 MG TABLET Take 1 tablet by mouth once d* FUROSEMIDE 20 MG TABLET 20 mg every other day. Daily CYANOCOBALAMIN (VIT B-12) 1,0* Take 1 tablet by mouth once d* FERROUS SULFATE 325 MG (65 MG* Take 1 tablet by mouth three * ALBUTEROL SULFATE HFA 90 MCG/* Inhale 2 Puffs as instructed * POTASSIUM CHLORIDE ER 8 MEQ T* Take 1 tablet by mouth once d* TIOTROPIUM BROMIDE 2.5 MCG/AC* Inhale 2 Puffs as instructed * WARFARIN 2 MG TABLET Taking 4 mg mondays, 2 mg all* DOCUSATE SODIUM 100 MG CAPSULE Take 1 capsule by mouth twice* CHOLECALCIFEROL (VITAMIN D3) * Take 1,000 Units by mouth onc* Problem List As Of Date 10/08/2017 Noted Resolved Asthma [J45.909] INVALID FOR* Diabetes mellitus, type II (HCC) [E11.9] INVALID FOR* ESOPHAGEAL REFLUX [K21.9] INVALID FOR* Mixed hyperlipidemia [E78.2] INVALID FOR* LUMBAGO [M54.5] INVALID FOR* Osteoarthrosis, unspecified whether generalized* Fibromyalgia [M79.7] More... 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 Heart Valve Replaced by Other Means [Z95.4] INVALID FOR* More... Cardiac pacemaker in situ [Z95.0] INVALID FOR* More... Acute kidney failure with lesion of tubular nec*INVALID FOR*01/10/2013 More... 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 Hypothyroidism [E03.9] INVALID FOR* THROMBOCYTOPENIA NOS [D69.6] INVALID FOR* COPD (chronic obstructive pulmonary disease) (H*INVALID FOR* Chronic kidney disease, stage III (moderate) [N*INVALID FOR* PSVT (paroxysmal supraventricular tachycardia) *INVALID FOR*05/09/2012 More... Iron deficiency [E61.1] INVALID FOR*02/03/2013 Anemia in chronic renal disease [N18.9, D63.1] INVALID FOR* More... Infected cat bite [W55.01XA] INVALID FOR*05/09/2012 Atrial fibrillation (HCC) [I48.91] INVALID FOR* Adenomatous colon polyp [D12.6] INVALID FOR* Tobacco use disorder [F17.200] INVALID FOR* Cholelithiasis [K80.20] INVALID FOR*03/04/2014 Unspecified pleural effusion, loculated, right *INVALID FOR*03/04/2014 Dizziness and giddiness [R42] INVALID FOR* Carotid artery disease without cerebral infarct*INVALID FOR* Other specified hypotension [I95.89] INVALID FOR* Transfusion history [Z92.89] INVALID FOR* More... Sleep apnea [G47.30] GIB (gastrointestinal bleeding) [K92.2] INVALID FOR* Moderate to severe pulmonary hypertension (HCC)*INVALID FOR* H/O mitral valve replacement [Z95.2] INVALID FOR* Type 2 diabetes mellitus with stage 3 chronic k*INVALID FOR* Vitamin D deficiency [E55.9] INVALID FOR* Visit Notes: >> Celia Carpenter LPN Mon Oct 08, 2017 9:33 AM Status: Signed Est patient, four month ov. Discuss recent labs. Celia Carpenter LPN Encounter Status:Closed by YARA GARAY MD on 10/09/17 [place] ABS GR + CBC Collected: 10/08/2017 Status: F Source: [place] 9:10 AM [facility] [place] REPOSITORY TYPE CODE TESTS RESULT OUT OF REFERENCE UNITS RANGE LAB WWBC 3.70-11.00 k/uL [place] WBC 3.74 LAB WRBC 3.90-5.20 m/uL Low [place] RBC 3.82 LAB WHGB 11.5-15.5 g/dL Low [place] Hemoglobin 11.3 LAB WHCT 36.0-46.0 % [place] Hematocrit 36.4 LAB WMCV 80.0-100.0 fL [place] MCV 95.3 LAB WMCH 26.0-34.0 pg [place] MCH 29.6 LAB WMCHC 30.5-36.0 g/dL [place] MCHC 31.0 LAB WRDW 11.5-15.0 % [place] High RDW 17.0 LAB WPLT 150-400 k/uL Low [place] Platelet Cnt 91 LAB WMPV 9.0-12.7 fL [place] MPV 10.9 Result Comment: Test performed at: [facility], [address] [place] [address] Rd[address] [place] [address]. LAB ABGRAN 1.45-7.50 k/uL Absol Gran 2.92 Count IRON AND TIBC Collected: 10/08/2017 Status: F Source: [place] 9:10 AM [facility] REPOSITORY TYPE CODE TESTS RESULT OUT OF REFERENCE UNITS RANGE LAB IRN 41-186 ug/dL Low Iron 33 LAB TIBC 232-386 ug/dL TIBC 320 LAB SAT 15-57 % Low Transferrin Saturatn 10 Performed By: #### IRON, CMP, FERR #### [facility] [address] [place] [address] COMP METABOLIC PANEL Collected: 10/08/2017 Status: F Source: [place] 9:10 AM [facility] REPOSITORY TYPE CODE TESTS RESULT OUT OF REFERENCE UNITS RANGE LAB TP 6.3-8.0 g/dL Protein, Total 7.0 LAB ALB 3.9-4.9 g/dL Albumin 4.0 LAB CA 8.5-10.2 mg/dL Calcium, Total 9.2 LAB TBIL 0.2-1.3 mg/dL Bilirubin, Total 0.5 LAB ALKP 32-117 U/L Alkaline Phosphatase 71 LAB AST 13-35 U/L Low AST 9 LAB GLU 74-99 mg/dL Glucose High 116 Result Comment: The [place] [employer] (ADA) provides guidance for cutoff values for fasting glucose and random glucose. The ADA defines fasting as no caloric intake for at least 8 hours. Fas ting plasma glucose results between 100 to 125 mg/dL indicate increased risk for diabetes (prediabetes). Fasting plasma glucose results greater than or equal to 126 mg/dL meet the criteria for diagnosis of diabetes. In the absence of unequivocal hyperglycemia, results should be confirmed by repeat testing. In a patient with classic symptoms of hyperglycemia or hyperglycemic crisis, random plasma glucose results greater than or equal to 200 mg/dL meet the criteria for diagnosis of diabetes. Reference: Standards of Medical Care in Diabetes 2016, [place] [employer]. Diabetes Care. 2016.39(Suppl 1). LAB BUN 7-21 mg/dL BUN 18 LAB CRET 0.58-0.96 mg/dL Creatinine High 1.55 LAB NA 136-144 mmol/L Sodium 143 LAB K 3.7-5.1 mmol/L Potassium 4.3 LAB CL 97-105 mmol/L Chloride High 108 LAB CO2 22-30 mmol/L CO2 24 LAB AGAP 9-18 mmol/L Anion Gap 11 LAB ALT 7-38 U/L ALT 8 LAB GFRAA eGFR- Amer. 40 LAB GFRNAA . eGFR-All Other Races 33 Result Comment: eGFR (Estimated GFR) Units of measure: mL/min/1.73 meters squared eGFR is derived from the reexpressed MDRD Study equation using the following parameters: serum creatinine, age, gender and race. The creatinine assay has been calibrated to be traceable to IDMS. An eGFR <60 mL/min/1.73m2 for >3 months is consistent with chronic kidney disease. Refer to KDOQI guidelines for clinical interpretation. In patients with unstable renal function, e.g. those with acute kidney injury, the eGFR may not accurately reflect actual GFR. Performed By: #### IRON, CMP, FERR #### [facility] [address] [place], [place] [address] FERRITIN Collected: 10/08/2017 Status: F Source: [place] 9:10 AM [facility] REPOSITORY TYPE CODE TESTS RESULT OUT OF REFERENCE UNITS RANGE LAB FERR 14.7-205.1 ng/mL Ferritin 49.8 Performed By: #### IRON, CMP, FERR #### [facility] [address] [place], [place] [address] BEDSIDE GLUCOSE Collected: 10/04/2017 Status: F Source: [place] 9:21 PM [facility] REPOSITORY TYPE CODE TESTS RESULT OUT OF REFERENCE UNITS RANGE LAB L501.080 70-110 mg/dL High BEDSIDE GLU 170 Result Comment: MANAGEMENT OF PATIENT CARE PER NURSING PROTOCOL Performed By: #### L501.080 #### [facility] Point of Care [address] [place], [place] [address] TYPE AND SCREEN Collected: 10/04/2017 Status: F Source: [place] 10:03 AM [facility] REPOSITORY Order Comment: PRETRANSFUSION HGB = 7.5 HCT = 24.7 PERFORMED AT [facility] CMV NEG?* N Give When? 10/04/17 TODAY Irradiated? N Leukodepleted? Y Reason for Type AND Screen/Red Cells: ANEMIA TYPE CODE TESTS RESULT OUT OF RANGE REFERENCE UNITS LAB B10.0800 A Normal BLOOD TYPE GEL POSITIVE LAB B100.4000 Normal Antibody NEGATIVE Screen Performed By: #### B101.7450 #### [facility] [address] [place], [place], [address] RC Collected: 10/04/2017 Status: F Source: [place] 10:03 AM [facility] REPOSITORY TYPE CODE TESTS RESULT OUT OF REFERENCE UNITS RANGE LAB U100.0000 [id number] TRANSFUSED PRODUCT: T AND S with Crossmatch, Red Cells COUNT: 3 Performed By: #### U100.0000 #### [facility] - refer to report for specific site [place] ABS GR + CBC Collected: 10/04/2017 Status: F Source: [place] 10:03 AM [facility] REPOSITORY TYPE CODE TESTS RESULT OUT OF REFERENCE UNITS RANGE LAB WWBC 3.70-11.00 k/uL [place] WBC 3.99 LAB WRBC 3.90-5.20 m/uL Low [place] RBC 2.52 LAB WHGB 11.5-15.5 g/dL Low [place] Hemoglobin 7.5 LAB WHCT 36.0-46.0 % Low [place] Hematocrit 24.7 LAB WMCV 80.0-100.0 fL [place] MCV 98.0 LAB WMCH 26.0-34.0 pg [place] MCH 29.8 LAB WMCHC 30.5-36.0 g/dL Low [place] MCHC 30.4 LAB WRDW 11.5-15.0 % [place] High RDW 17.5 LAB WPLT 150-400 k/uL Low [place] Platelet Cnt 103 LAB WMPV 9.0-12.7 fL [place] MPV 10.9 Result Comment: Test performed at: [facility] [place], [address] [place] [address]. LAB ABGRAN 1.45-7.50 k/uL Absol Gran 3.17 Count CNPN Observed: 10/04/2017 Status: COMPLETED Source: [place] 12:00 AM [facility] REPOSITORY Telephone (HEMAWS) EMANI LOUIS ([id number]) 1940 F TXT Date Time Provider Department 10/04/17 YARA GARAY During your visit today, we recorded the following information about you: Yara Garay MD 10/04/2017 10:36 AM Signed Type and cross 3 units LD -RBC for blood transfusion today at [facility]. Repeat CBC ANDamp; prothrombin time next week. Add iron /TIBC to lab today. Call GI- Dr. Johnson / Dr. Hu today. Celia Carpenter LPN 10/04/2017 11:06 AM Signed Scheduled for 3 units PRBC's @[facility]- will call patient when blood is ready. Orders faxed. Patient and lab aware. Iron/TIBC added per lab. Celia Hu MD 10/04/2017 2:54 PM Signed Refer this to Dr Alex Johnson MD 10/04/2017 3:[address] Hu is mistaken, He has had at least 3 office visits with this patient. (He has dictated notes in Epic on 08/17/15, and 08/10/16). I have never seen this patient except to perform an EGD YAMILA DRAPER LPN, ERNESTO 10/05/2017 9:54 AM Signed Per message patient called and connected to scheduling to schedule ov with . ERNESTO KLINE [facility] 10/05/2017 11:05 AM Signed First available established slot not until November 24 Patient contacted and scheduled October 16 at 4:30 pm (provider's first day back from vacation) [facility] Roberson [facility] Allergies As of Date: 10/04/2017 Noted Allergy Reaction AMBIEN (ZOLPIDEM TARTRATE) 09/06/2005 16 - Unknown ATIVAN (LORAZEPAM) 09/06/2005 14 - Other: See Comments Comments: just didn't work MOBIC (MELOXICAM) 09/06/2005 16 - Unknown PAMELOR (NORTRIPTYLINE HCL) 09/06/2005 16 - Unknown Date Reviewed: 09/27/2017 Reviewed by: Homa Hurst (Ernesto) ERNESTO Ellison - Fully Assessed Reason for Visit: Transfusion [880] Primary Visit Diagnosis:Chronic kidney disease, stage III (moderate) [N18.3] Other Visit Diagnoses:Anemia in stage 3 chronic kidney disease [N18.3, D63.1] Gastrointestinal hemorrhage associated with acute gastritis [K29.01] Order(s):IRON + TIBC [SQIRON] Order #: [id number] FUTURE FERRITIN BLD [SQFERR] Order #: [id number] FUTURE Prescriptions as of 10/04/2017 Sig: VENLAFAXINE 37.5 MG TABLET Take 1 tablet by mouth twice * BLOOD SUGAR DIAGNOSTIC, DRUM-* Test blood sugar(s) 4 times d* FOLIC ACID 1 MG TABLET Take 1 tablet by mouth once d* BLOOD-GLUCOSE METER, DRUM-TYP* Accu-Check Compact Plus Meter* LEVOTHYROXINE 50 MCG TABLET TAKE ONE TABLET BY MOUTH EVER* PANTOPRAZOLE 40 MG TABLET,DEL* Take 1 tablet by mouth once d* HYDROCODONE 5 MG-ACETAMINOPHE* Take 1 tablet by mouth every * MAGNESIUM 250 MG TABLET Take 250 mg by mouth once lynette* LANCETS Use as instructed 3 to 4 TIME* ONDANSETRON 4 MG DISINTEGRATI* Take 1 tablet by mouth every * INSULIN GLARGINE (U-100) 100 * Inject 35 Units subcutaneousl* INSULIN LISPRO (U-100) 100 UN* Inject 15 Units subcutaneousl* PEN NEEDLE, DIABETIC 31 GAUGE* USE ONE NEEDLE FOR EACH DOSE TRAZODONE 150 MG TABLET Take 1-2 tablets by mouth lynette* ATORVASTATIN 20 MG TABLET Take 1 tablet by mouth once d* FUROSEMIDE 20 MG TABLET 20 mg every other day. Daily CYANOCOBALAMIN (VIT B-12) 1,0* Take 1 tablet by mouth once d* FERROUS SULFATE 325 MG (65 MG* Take 1 tablet by mouth three * ALBUTEROL SULFATE HFA 90 MCG/* Inhale 2 Puffs as instructed * POTASSIUM CHLORIDE ER 8 MEQ T* Take 1 tablet by mouth once d* TIOTROPIUM BROMIDE 2.5 MCG/AC* Inhale 2 Puffs as instructed * WARFARIN 2 MG TABLET Taking 4 mg mondays, 2 mg all* DOCUSATE SODIUM 100 MG CAPSULE Take 1 capsule by mouth twice* CHOLECALCIFEROL (VITAMIN D3) * Take 1,000 Units by mouth onc* Problem List As Of Date 10/04/2017 Noted Resolved Asthma [J45.909] INVALID FOR* Diabetes mellitus, type II (HCC) [E11.9] INVALID FOR* ESOPHAGEAL REFLUX [K21.9] INVALID FOR* Mixed hyperlipidemia [E78.2] INVALID FOR* LUMBAGO [M54.5] INVALID FOR* Osteoarthrosis, unspecified whether generalized* Fibromyalgia [M79.7] More... 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 Heart Valve Replaced by Other Means [Z95.4] INVALID FOR* More... Cardiac pacemaker in situ [Z95.0] INVALID FOR* More... Acute kidney failure with lesion of tubular nec*INVALID FOR*01/10/2013 More... 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 Hypothyroidism [E03.9] INVALID FOR* THROMBOCYTOPENIA NOS [D69.6] INVALID FOR* COPD (chronic obstructive pulmonary disease) (H*INVALID FOR* Chronic kidney disease, stage III (moderate) [N*INVALID FOR* PSVT (paroxysmal supraventricular tachycardia) *INVALID FOR*05/09/2012 More... Iron deficiency [E61.1] INVALID FOR*02/03/2013 Anemia in chronic renal disease [N18.9, D63.1] INVALID FOR* More... Infected cat bite [W55.01XA] INVALID FOR*05/09/2012 Atrial fibrillation (HCC) [I48.91] INVALID FOR* Adenomatous colon polyp [D12.6] INVALID FOR* Tobacco use disorder [F17.200] INVALID FOR* Cholelithiasis [K80.20] INVALID FOR*03/04/2014 Unspecified pleural effusion, loculated, right *INVALID FOR*03/04/2014 Dizziness and giddiness [R42] INVALID FOR* Carotid artery disease without cerebral infarct*INVALID FOR* Other specified hypotension [I95.89] INVALID FOR* Transfusion history [Z92.89] INVALID FOR* More... Sleep apnea [G47.30] GIB (gastrointestinal bleeding) [K92.2] INVALID FOR* Moderate to severe pulmonary hypertension (HCC)*INVALID FOR* H/O mitral valve replacement [Z98.890, Z95.2] INVALID FOR* Type 2 diabetes mellitus with stage 3 chronic k*INVALID FOR* Vitamin D deficiency [E55.9] INVALID FOR* Encounter Status:Closed by HOMA ELLISON on 10/04/17 ENRIQUE Observed: 10/04/2017 Status: COMPLETED Source: [place] 12:00 AM [facility] REPOSITORY Telephone (GASTMN) EMANI LOUIS ([id number]) 1940 F TXT Date Time Provider Department 10/04/17 SILVINO HU GASTLA During your visit today, we recorded the following information about you: [facility] Roberson [facility] 10/04/2017 11:15 AM Signed Per police department secretary, Dr Garay requests return call from provider; states the patient may be bleeding, having transfusion today [facility] Silvino Hu MD 10/04/2017 3:[address] is Dr Johnson's pt. Is he out? If not direct call to him. [facility] Rob[facility] 10/04/2017 3:32 PM Signed Message forwarded to Dr Johnson to reply [facility] Marquise Johnson MD 10/04/2017 3:[address] Hu is mistaken, He has had at least 3 office visits with this patient. (He has dictated notes in Epic on 08/17/15, and 08/10/16). I have never seen this patient except to perform an EGD [facility] 10/04/2017 4:08 PM Signed See provider's message below [facility] Silvino Hu MD 10/05/2017 9:20 AM Signed Lina Chen. Since the call was for GI bleeding and I noticed you did an EGD 11 months ago for the same thing, I thought you were seeing her. I didn't look back another year in the chart. I will be glad to see her back here, B. Marquise Johnson MD 10/05/2017 9:58 AM Signed No problem Silvino. I hope all is well at the main campus. And I hope to speak to you soon Allergies As of Date: 10/04/2017 Noted Allergy Reaction AMBIEN (ZOLPIDEM TARTRATE) 09/06/2005 16 - Unknown ATIVAN (LORAZEPAM) 09/06/2005 14 - Other: See Comments Comments: just didn't work MOBIC (MELOXICAM) 09/06/2005 16 - Unknown PAMELOR (NORTRIPTYLINE HCL) 09/06/2005 16 - Unknown Date Reviewed: 09/27/2017 Reviewed by: Homa Hurst (Ernesto) ERNESTO Ellison - Fully Assessed Reason for Visit: phone call/Dr Garay [Other] Prescriptions as of 10/04/2017 Sig: VENLAFAXINE 37.5 MG TABLET Take 1 tablet by mouth twice * BLOOD SUGAR DIAGNOSTIC, DRUM-* Test blood sugar(s) 4 times d* FOLIC ACID 1 MG TABLET Take 1 tablet by mouth once d* BLOOD-GLUCOSE METER, DRUM-TYP* Accu-Check Compact Plus Meter* LEVOTHYROXINE 50 MCG TABLET TAKE ONE TABLET BY MOUTH EVER* PANTOPRAZOLE 40 MG TABLET,DEL* Take 1 tablet by mouth once d* HYDROCODONE 5 MG-ACETAMINOPHE* Take 1 tablet by mouth every * MAGNESIUM 250 MG TABLET Take 250 mg by mouth once lynette* LANCETS Use as instructed 3 to 4 TIME* ONDANSETRON 4 MG DISINTEGRATI* Take 1 tablet by mouth every * INSULIN GLARGINE (U-100) 100 * Inject 35 Units subcutaneousl* INSULIN LISPRO (U-100) 100 UN* Inject 15 Units subcutaneousl* PEN NEEDLE, DIABETIC 31 GAUGE* USE ONE NEEDLE FOR EACH DOSE TRAZODONE 150 MG TABLET Take 1-2 tablets by mouth [place]ette* ATORVASTATIN 20 MG TABLET Take 1 tablet by mouth once d* FUROSEMIDE 20 MG TABLET 20 mg every other day. Daily CYANOCOBALAMIN (VIT B-12) 1,0* Take 1 tablet by mouth once d* FERROUS SULFATE 325 MG (65 MG* Take 1 tablet by mouth three * ALBUTEROL SULFATE HFA 90 MCG/* Inhale 2 Puffs as instructed * POTASSIUM CHLORIDE ER 8 MEQ T* Take 1 tablet by mouth once d* TIOTROPIUM BROMIDE 2.5 MCG/AC* Inhale 2 Puffs as instructed * WARFARIN 2 MG TABLET Taking 4 mg mondays, 2 mg all* DOCUSATE SODIUM 100 MG CAPSULE Take 1 capsule by mouth twice* CHOLECALCIFEROL (VITAMIN D3) * Take 1,000 Units by mouth onc* Problem List As Of Date 10/04/2017 Noted Resolved Asthma [J45.909] INVALID FOR* Diabetes mellitus, type II (HCC) [E11.9] INVALID FOR* ESOPHAGEAL REFLUX [K21.9] INVALID FOR* Mixed hyperlipidemia [E78.2] INVALID FOR* LUMBAGO [M54.5] INVALID FOR* Osteoarthrosis, unspecified whether generalized* Fibromyalgia [M79.7] More... 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 Heart Valve Replaced by Other Means [Z95.4] INVALID FOR* More... Cardiac pacemaker in situ [Z95.0] INVALID FOR* More... Acute kidney failure with lesion of tubular nec*INVALID FOR*01/10/2013 More... 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 Hypothyroidism [E03.9] INVALID FOR* THROMBOCYTOPENIA NOS [D69.6] INVALID FOR* COPD (chronic obstructive pulmonary disease) (H*INVALID FOR* Chronic kidney disease, stage III (moderate) [N*INVALID FOR* PSVT (paroxysmal supraventricular tachycardia) *INVALID FOR*05/09/2012 More... Iron deficiency [E61.1] INVALID FOR*02/03/2013 Anemia in chronic renal disease [N18.9, D63.1] INVALID FOR* More... Infected cat bite [W55.01XA] INVALID FOR*05/09/2012 Atrial fibrillation (HCC) [I48.91] INVALID FOR* Adenomatous colon polyp [D12.6] INVALID FOR* Tobacco use disorder [F17.200] INVALID FOR* Cholelithiasis [K80.20] INVALID FOR*03/04/2014 Unspecified pleural effusion, loculated, right *INVALID FOR*03/04/2014 Dizziness and giddiness [R42] INVALID FOR* Carotid artery disease without cerebral infarct*INVALID FOR* Other specified hypotension [I95.89] INVALID FOR* Transfusion history [Z92.89] INVALID FOR* More... Sleep apnea [G47.30] GIB (gastrointestinal bleeding) [K92.2] INVALID FOR* Moderate to severe pulmonary hypertension (HCC)*INVALID FOR* H/O mitral valve replacement [Z98.890, Z95.2] INVALID FOR* Type 2 diabetes mellitus with stage 3 chronic k*INVALID FOR* Vitamin D deficiency [E55.9] INVALID FOR* Encounter Status:Closed by PEACE VALENTINO on 10/04/17 [place] ABS GR + CBC Collected: 09/27/2017 Status: F Source: [place] 10:38 AM [facility] REPOSITORY TYPE CODE TESTS RESULT OUT OF REFERENCE UNITS RANGE LAB WWBC 3.70-11.00 k/uL Low [place] WBC 3.18 LAB WRBC 3.90-5.20 m/uL Low [place] RBC 2.97 LAB WHGB 11.5-15.5 g/dL Low [place] Hemoglobin 8.8 LAB WHCT 36.0-46.0 % Low [place] Hematocrit 28.5 LAB WMCV 80.0-100.0 fL [place] MCV 96.0 LAB WMCH 26.0-34.0 pg [place] MCH 29.6 LAB WMCHC 30.5-36.0 g/dL [place] MCHC 30.9 LAB WRDW 11.5-15.0 % [place] High RDW 16.3 LAB WPLT 150-400 k/uL [place] Platelet Cnt 83 LAB WMPV 9.0-12.7 fL [place] MPV 10.8 Result Comment: Test performed at: [facility], [address] [place] [address]. LAB ABGRAN 1.45-7.50 k/uL Absol Gran 2.55 Count PROTHROMBIN TIME W/INR Collected: 09/27/2017 Status: F Source: [place] 9:48 AM [facility] REPOSITORY TYPE CODE TESTS RESULT OUT OF RANGE REFERENCE UNITS LAB L300.4150 11.7-14.9 SECONDS High PROTIME 31.5 LAB L300.4200 Normal INR 3.2 Performed By: #### L300.3900 #### [facility] [address] [place], [address] [place] ABS GR + CBC Collected: 09/20/2017 Status: F Source: [place] 11:13 AM [facility] REPOSITORY TYPE CODE TESTS RESULT OUT OF REFERENCE UNITS RANGE LAB WWBC 3.70-11.00 k/uL Low [place] WBC 3.52 LAB WRBC 3.90-5.20 m/uL Low [place] RBC 2.87 LAB WHGB 11.5-15.5 g/dL Low [place] Hemoglobin 8.1 LAB WHCT 36.0-46.0 % Low [place] Hematocrit 27.8 LAB WMCV 80.0-100.0 fL [place] MCV 96.9 LAB WMCH 26.0-34.0 pg [place] MCH 28.2 LAB WMCHC 30.5-36.0 g/dL Low [place] MCHC 29.1 Result Comment: Result rechecked. LAB WRDW 11.5-15.0 % High [place] RDW 17.1 LAB WPLT 150-400 k/uL Low [place] 89 Platelet Cnt LAB WMPV 9.0-12.7 fL [place] MPV 10.8 Result Comment: Test performed at: [facility], [address] [place] [address]. LAB ABGRAN 1.45-7.50 k/uL Absol Gran 2.84 Count TYPE AND SCREEN Collected: 09/20/2017 Status: F Source: [place] 11:10 AM [facility] REPOSITORY Order Comment: PRETRANSFUSION HGB = 8.1 HCT = 27.8 PERFORMED AT [facility] CMV NEG?* N Give When? 09/21/17 @0830 Irradiated? Y Leukodepleted? Y Reason for Type AND Screen/Red Cells: ANEMIA TYPE CODE TESTS RESULT OUT OF RANGE REFERENCE UNITS LAB B10.0800 A Normal BLOOD TYPE GEL POSITIVE LAB B100.4000 Normal Antibody NEGATIVE Screen Performed By: #### B101.7450 #### [facility] [address] [place], [address] Collected: 09/20/2017 Status: F Source: [place] 11:10 AM [facility] REPOSITORY TYPE CODE TESTS RESULT OUT OF REFERENCE UNITS RANGE LAB U100.0000 [id number] TRANSFUSED PRODUCT: T AND S with Crossmatch, Red Cells COUNT: 2 Performed By: #### U100.0000 #### [facility] - refer to report for specific site [place] ABS GR + CBC Collected: 09/13/2017 Status: F Source: [place] 10:31 AM [facility] REPOSITORY TYPE CODE TESTS RESULT OUT OF REFERENCE UNITS RANGE LAB WWBC 3.70-11.00 k/uL Low [place] WBC 3.67 LAB WRBC 3.90-5.20 m/uL Low [place] RBC 3.30 LAB WHGB 11.5-15.5 g/dL Low [place] Hemoglobin 9.5 LAB WHCT 36.0-46.0 % Low [place] Hematocrit 31.3 LAB WMCV 80.0-100.0 fL [place] MCV 94.8 LAB WMCH 26.0-34.0 pg [place] MCH 28.8 LAB WMCHC 30.5-36.0 g/dL Low [place] MCHC 30.4 LAB WRDW 11.5-15.0 % [place] High RDW 16.4 LAB WPLT 150-400 k/uL Low [place] Platelet Cnt 97 LAB WMPV 9.0-12.7 fL [place] MPV 10.6 Result Comment: Test performed at: [facility], [address] [place] [address] [address] [place] [address]. LAB ABGRAN 1.45-7.50 k/uL Absol Gran 3.02 Count PROTHROMBIN TIME W/INR Collected: 09/13/2017 Status: F Source: [place] 9:56 AM [facility] REPOSITORY TYPE CODE TESTS RESULT OUT OF RANGE REFERENCE UNITS LAB L300.4150 11.7-14.9 SECONDS High PROTIME 32.2 LAB L300.4200 Normal INR 3.3 Performed By: #### L300.3900 #### [facility] [place], [address] HOSP Observed: 09/06/2017 Status: COMPLETED Source: [place] 11:00 AM [facility] REPOSITORY Infusion Center ([facility]) EMANI [place] ([id number]) 1940 F TXT Date Time Provider Department 09/06/17 11:00 AM [facility] During your visit today, we recorded the following information about you: Temperature Pulse Blood pressure Weight 97.4 degrees 82/minute 86/62 63.7 kg Celia Carpenter LPN 09/06/2017 10:34 AM Signed Patient presents with: Imm/Inj Pt is identified by name and birthdate: Yes. Allergies and medications reviewed. Latex allergy? No. Does this patient have: Unplanned weight loss or gain of greater than 10 pounds, or a change of appetite over the last year? No Does the patient have any concerns about safety in the home/falls? Not at risk for falls Has the patient fallen in the past year? No Does the patient have difficulty performing or completing routine daily living activities? No Does this patient have concerns about personal safety? No Is patient having pain? Pain: No=0 (pain 0 on a scale of 0-10). Health Maintenance: Reviewed and updated. Does patient have MyChart access or Caregiver proxy: yes Pt/Caregiver willingness and readiness to learn assessed: Yes. Barriers: none Aranesp injection administered left arm, tolerated well, no immediate adverse reactions noted. Celia Carpenter LPN Referring Provider: YARA GARAY [[id number]] Allergies As of Date: 09/06/2017 Noted Allergy Reaction AMBIEN (ZOLPIDEM TARTRATE) 09/06/2005 16 - Unknown ATIVAN (LORAZEPAM) 09/06/2005 14 - Other: See Comments Comments: just didn't work MOBIC (MELOXICAM) 09/06/2005 16 - Unknown PAMELOR (NORTRIPTYLINE HCL) 09/06/2005 16 - Unknown Date Reviewed: 09/06/2017 Reviewed by: Celia Carpenter LPN - Fully Assessed Reason for Visit: Imm/Inj [58] Primary Visit Diagnosis:Anemia in chronic kidney disease, unspecified CKD stage [N18.9, D63.1] Other Visit Diagnosis:Chronic kidney disease, stage III (moderate) [N18.3] Order(s):[] Darbepoetin Peace In Polysorbat 200 mcg injection (ARANESP)Disp: Rfl: TREATMENT PARAMETERS [[id number]] Order #: [id number]: 1 Prescriptions as of 09/06/2017 Sig: BLOOD SUGAR DIAGNOSTIC, DRUM-* Test blood sugar(s) 4 times d* BLOOD-GLUCOSE METER, DRUM-TYP* Accu-Check Compact Plus Meter* LEVOTHYROXINE 50 MCG TABLET TAKE ONE TABLET BY MOUTH EVER* PANTOPRAZOLE 40 MG TABLET,DEL* Take 1 tablet by mouth once d* HYDROCODONE 5 MG-ACETAMINOPHE* Take 1 tablet by mouth every * MAGNESIUM 250 MG TABLET Take 250 mg by mouth once lynette* LANCETS Use as instructed 3 to 4 TIME* VENLAFAXINE 37.5 MG TABLET Take 1 tablet by mouth twice * ONDANSETRON 4 MG DISINTEGRATI* Take 1 tablet by mouth every * INSULIN GLARGINE 100 UNIT/ML * Inject 35 Units subcutaneousl* INSULIN LISPRO 100 UNIT/ML KIRKLAND* Inject 15 Units subcutaneousl* PEN NEEDLE, DIABETIC 31 GAUGE* USE ONE NEEDLE FOR EACH DOSE TRAZODONE 150 MG TABLET Take 1-2 tablets by mouth lynette* ATORVASTATIN 20 MG TABLET Take 1 tablet by mouth once d* FOLIC ACID 1 MG TABLET Take 1 tablet by mouth once d* FUROSEMIDE 20 MG TABLET 20 mg every other day. Daily CYANOCOBALAMIN (VIT B-12) 1,0* Take 1 tablet by mouth once d* FERROUS SULFATE 325 MG (65 MG* Take 1 tablet by mouth three * ALBUTEROL SULFATE HFA 90 MCG/* Inhale 2 Puffs as instructed * POTASSIUM CHLORIDE ER 8 MEQ T* Take 1 tablet by mouth once d* TIOTROPIUM BROMIDE 2.5 MCG/AC* Inhale 2 Puffs as instructed * WARFARIN 2 MG TABLET Taking 4 mg mondays, 2 mg all* DOCUSATE SODIUM 100 MG CAPSULE Take 1 capsule by mouth twice* CHOLECALCIFEROL (VITAMIN D3) * Take 1,000 Units by mouth onc* Problem List As Of Date 09/06/2017 Noted Resolved Asthma [J45.909] INVALID FOR* Diabetes mellitus, type II (HCC) [E11.9] INVALID FOR* ESOPHAGEAL REFLUX [K21.9] INVALID FOR* Mixed hyperlipidemia [E78.2] INVALID FOR* LUMBAGO [M54.5] INVALID FOR* Osteoarthrosis, unspecified whether generalized* Fibromyalgia [M79.7] More... 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 Heart Valve Replaced by Other Means [Z95.4] INVALID FOR* More... Cardiac pacemaker in situ [Z95.0] INVALID FOR* More... Acute kidney failure with lesion of tubular nec*INVALID FOR*01/10/2013 More... 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 Hypothyroidism [E03.9] INVALID FOR* THROMBOCYTOPENIA NOS [D69.6] INVALID FOR* COPD (chronic obstructive pulmonary disease) (H*INVALID FOR* Chronic kidney disease, stage III (moderate) [N*INVALID FOR* PSVT (paroxysmal supraventricular tachycardia) *INVALID FOR*05/09/2012 More... Iron deficiency [E61.1] INVALID FOR*02/03/2013 Anemia in chronic renal disease [N18.9, D63.1] INVALID FOR* More... Infected cat bite [W55.01XA] INVALID FOR*05/09/2012 Atrial fibrillation (HCC) [I48.91] INVALID FOR* Adenomatous colon polyp [D12.6] INVALID FOR* Tobacco use disorder [F17.200] INVALID FOR* Cholelithiasis [K80.20] INVALID FOR*03/04/2014 Unspecified pleural effusion, loculated, right *INVALID FOR*03/04/2014 Dizziness and giddiness [R42] INVALID FOR* Carotid artery disease without cerebral infarct*INVALID FOR* Other specified hypotension [I95.89] INVALID FOR* Transfusion history [Z92.89] INVALID FOR* More... Sleep apnea [G47.30] GIB (gastrointestinal bleeding) [K92.2] INVALID FOR* Moderate to severe pulmonary hypertension (HCC)*INVALID FOR* H/O mitral valve replacement [Z95.2] INVALID FOR* Type 2 diabetes mellitus with stage 3 chronic k*INVALID FOR* Vitamin D deficiency [E55.9] INVALID FOR* Visit Notes: >> Celia Carpenter LPN [facility] Sep 06, 2017 10:26 AM Status: Signed Patient presents with: Imm/Inj Pt is identified by name and birthdate: Yes. Allergies and medications reviewed. Latex allergy? No. Does this patient have: Unplanned weight loss or gain of greater than 10 pounds, or a change of appetite over the last year? No Does the patient have any concerns about safety in the home/falls? Not at risk for falls Has the patient fallen in the past year? No Does the patient have difficulty performing or completing routine daily living activities? No Does this patient have concerns about personal safety? No Is patient having pain? Pain: No=0 (pain 0 on a scale of 0-10). Health Maintenance: Reviewed and updated. Does patient have MyChart access or Caregiver proxy: yes Pt/Caregiver willingness and readiness to learn assessed: Yes. Barriers: none Aranesp injection administered left arm, tolerated well, no immediate adverse reactions noted. Celia Carpenter LPN Prescriptions ordered this encounter Disp Refills Start End DARBEPOETIN PEACE 200 MCG/0.4 ML IN P* 09/06/2017 09/06/2017 Route: SUBCUTANEOUS Encounter Status:Closed by CELIA CARPENTER LPN on 09/06/17 [place] ABS GR + CBC Collected: 09/06/2017 Status: F Source: [place] 9:53 AM [facility] [place] REPOSITORY TYPE CODE TESTS RESULT OUT OF REFERENCE UNITS RANGE LAB WWBC 3.70-11.00 k/uL Low [place] WBC 2.95 LAB WRBC 3.90-5.20 m/uL Low [place] RBC 3.35 LAB WHGB 11.5-15.5 g/dL Low [place] Hemoglobin 9.6 LAB WHCT 36.0-46.0 % Low [place] Hematocrit 31.8 LAB WMCV 80.0-100.0 fL [place] MCV 94.9 LAB WMCH 26.0-34.0 pg [place] MCH 28.7 LAB WMCHC 30.5-36.0 g/dL Low [place] MCHC 30.2 LAB WRDW 11.5-15.0 % [place] High RDW 15.8 LAB WPLT 150-400 k/uL Low [place] Platelet Cnt 82 LAB WMPV 9.0-12.7 fL [place] MPV 11.8 Result Comment: Test performed at: [facility], [address] [place] [address] Rd., [place] [address]. LAB ABGRAN 1.45-7.50 k/uL Absol Gran 2.27 Count ALLERGIES ALLERGIES DATE TYPE / NAME / CODE REACTION SEVERITY SOURCE CODE 08/20/2018 Drug nortriptyline Unknown Unknown [place] Allergy/41 HCl/[id number](RXNO [facility] [id number]( [facility] O[facility]) Repository 08/20/2018 Drug zolpidem Unknown Unknown [place] Allergy/41 tartrate/[id number] Community 9404743( (RXNORM) [facility] OMED CT) Repository 08/20/2018 Drug lorazepam/[id number] Unknown Unknown [place] Allergy/41 0(RXNORM) Community 3930001([facility] OMED CT) Repository 08/20/2018 Drug meloxicam/[id number] Unknown Unknown [place] Allergy/41 2(RXNORM) Community 5115117([facility] OMED CT) Repository 08/20/2018 Drug digoxin/[id number]( nausea, dry Unknown [place] Allergy/41 RXNORM) [facility] Community 5473728([facility] OMED CT) Repository 08/20/2018 Drug amiodarone/H0805686 vomiting, poor Unknown [place] Allergy/41 84(RXNORM) balance, Community [id number]( dizziness [facility] OMED CT) Repository 09/06/2005 DRUG ZOLPIDEM TARTRATE UNKNOWN [facility] INGREDI/41 Other [place] 6778972( Repository OMED CT) 09/06/2005 DRUG LORAZEPAM [facility]: [facility] [place] 2778976( Repository OMED CT) 09/06/2005 DRUG [facility] [place] 0846597( Repository OMED CT) 09/06/2005 DRUG NORTRIPTYLINE HCL [facility] [place] 0440098( Repository OMED CT) NG/[id number] ZOLPIDEM TARTRATE [facility] 06([facility] CT) Repository NG/5687400 LORAZEPAM [facility] 06([facility]) Repository NG/9147243 MELOXICAM [facility] 06([facility] CT) Repository NG/8553265 NORTRIPTYLINE HCL [facility] 06([facility] CT) Repository ENCOUNTERS ENCOUNTERS ADMIT/DISCHARGE ACCOUNT NUMBER ADMITTING ENCOUNTER LOCATION SOURCE CLASS 08/30/2018/08/30/19 [id number] Ambulatory [place] 19 [facility] ding:CLSP Repository 08/29/2018/08/30/19 [id number] Ambulatory [address] Main [place] Repository 08/26/2018 [id number] [facility] [place] [facility] Repository 08/22/2018/08/23/19 [id number] Ambulatory [address] [place] Repository 08/22/2018/08/23/19 [id number] Ambulatory [address] [place] Repository 08/20/2018/08/20/19 [id number] Ambulatory BMSBuilding: [place] 19 [facility] Repository 08/20/2018/08/20/19 [id number] Ambulatory BMSBuilding: [place] 19 BMS.[facility] Repository 08/16/2018/08/16/19 [id number] Ambulatory BMSBuilding: [place] 19 BMS.[facility] Repository 08/15/2018/08/15/19 [id number] Ambulatory [address] Main [place] Repository 08/15/2018/08/16/19 [id number] Ambulatory [address] [place] Repository 08/15/2018/08/15/19 [id number] Ambulatory [address] [place] Repository 08/09/2018 [id number] [facility] Rep[facility] 08/08/2018/08/09/20 [id number] Ambulatory [address] Main [place] Repository 08/01/2018/08/01/20 [id number] [place] ding:LAB Repository 08/01/2018/08/02/20 [id number] Ambulatory [address] [place] Repository 08/01/2018/08/02/20 [id number] Ambulatory [address] [place] Repository 07/26/2018 [id number] Ambulatory [place] [facility] ding:MEDOUTP Repository 07/25/2018/07/25/20 [id number] Ambulatory [address] [place] Repository 07/25/2018/07/26/20 [id number] Ambulatory [address] [place] Repository 07/19/2018 [id number] Ambulatory [place] [facility] ding:MEDOUTP Repository 07/18/2018/07/19/20 [id number] [facility] [place] Repository 07/11/2018/07/11/20 [id number] [facility] [place] Repository 07/11/2018/07/12/20 [id number] [facility] [place] Repository 07/09/2018/07/10/20 [id number] Ambulatory [place] 18 [facility] [place] Repository 07/08/2018/07/12/20 [id number] Ambulatory [place] 18 [facility] ding:LAB Repository 07/06/2018/07/06/20 [id number] Ambulatory [place] 18 [facility] ding:MS3OUT Repository 07/05/2018/07/05/20 [id number] Ambulatory [place] [facility] Main [place] Repository 07/02/2018/07/03/20 [id number] Ambulatory [place] [facility] [place] Repository 06/27/2018/06/27/20 [id number] Ambulatory [place] [facility] [place] Repository 06/27/2018/06/28/20 [id number] Ambulatory [place] [facility] [place] Repository 06/27/2018/06/27/20 [id number] Ambulatory [place] [facility] [place] Repository 06/27/2018/06/28/20 [id number] Ambulatory [place] [facility] [place] Repository 06/21/2018 [id number] [facility] Rep[facility] 06/20/2018/06/21/20 [id number] [facility] [place] Repository 06/13/2018/06/14/20 [id number] [facility]ulatory [facility] [place] Repository 06/13/2018/06/14/20 [id number] Ambulatory [place] 18 [facility] [place] Repository 06/06/2018/06/06/20 [id number] Ambulatory [facility] [place] Repository 06/06/2018/06/06/20 [id number] Ambulatory [place] 18 [facility] [place] Repository 06/03/2018/06/03/20 [id number] Ambulatory BMSBuilding: [place] 18 BMS.[facility] Repository 05/31/2018 [id number] Ambulatory [place] [facility] ding:MEDOUTP Repository 05/30/2018/05/30/20 [id number] Ambulatory [place] ding:LAB Repository 05/30/2018/05/31/20 [id number] Ambulatory [place] [facility] [place] Repository 05/23/2018/05/24/20 [id number] Ambulatory [place] [facility] [place] Repository 05/23/2018/05/24/20 [id number] Ambulatory [address] [place] Repository 05/17/2018 [id number] [facility] ding:MED[facility]P Repository 05/16/2018/05/17/20 [id number] Ambulatory [address] [place] Repository 05/09/2018/05/10/20 [id number] Ambulatory [place] [facility] [place] Repository 05/09/2018/05/09/20 [id number] Ambulatory [address] [place] Repository 05/07/2018/05/08/20 [id number] Ambulatory [address] [place] Repository 05/03/2018 [id number] [facility]ulatory [facility] ding:MED[facility]P Repository 05/03/2018/05/03/20 [id number] Ambulatory [address] ding:LAB Repository 05/02/2018/05/02/20 [id number] Ambulatory [address] [place] Repository 05/02/2018/05/02/20 [id number] Ambulatory [address] [place] Repository 04/26/2018 [id number] [facility]ulatory [facility] ding:MEDOUTP Repository 04/25/2018/04/26/20 [id number] Ambulatory [address] [place] Repository 04/19/2018 [id number] [facility]ulatory [facility] ding:MEDOUTP Repository 04/18/2018/04/19/20 [id number] Ambulatory [address] [place] Repository 04/18/2018/04/18/20 [id number] Ambulatory [address] [place] Repository 04/12/2018 [id number] [facility]ulatory [facility] ding:MEDOUTP Repository 04/11/2018/04/12/20 [id number] Ambulatory [address] [place] Repository 04/11/2018/04/11/20 [id number] Ambulatory [address] [place] Repository 04/09/2018/04/09/20 [id number] Ambulatory BMSBuilding: [place] 18 BMS.[facility] Repository 04/04/2018/04/05/20 [id number] Ambulatory [address] [place] Repository 03/29/2018/03/29/20 [id number] Ambulatory BMSBuilding: [place] 18 [facility]MS.[facility] Repository 03/29/2018 [id number] Ambulatory [place] [facility] ding:MEDOUTP Repository 03/28/2018/03/29/20 [id number] Ambulatory [address] [place] Repository 03/28/2018/03/28/20 [id number] Ambulatory [address] [place] Repository 03/22/2018/03/25/20 [id number] Ambulatory [address] [place] Repository 03/21/2018/03/22/20 [id number] Ambulatory [address] [place] Repository 03/14/2018/03/15/20 [id number] Ambulatory [address] [place] Repository 03/14/2018/03/15/20 [id number] Ambulatory [address] [place] Repository 03/14/2018/03/14/20 [id number] Ambulatory [place] ding:LAB Repository 03/07/2018/03/08/20 [id number] Ambulatory [address] [place] Repository 02/28/2018/03/01/20 [id number] Ambulatory [address] [place] Repository 02/28/2018/03/01/20 [id number] Ambulatory [address] [place] Repository 02/22/2018 [id number] Ambulatory [place] [facility] ding:[facility] Repository 02/22/2018 [id number] Ambulatory BMSBuilding: [place] BMS..[facility] Repository 02/21/2018/03/12/20 [id number] Ambulatory [place] [address] [place] [address] ding:LAB Repository 02/21/2018/02/23/20 [id number] Ambulatory [address] [place] Repository 02/14/2018/02/16/20 [id number] Ambulatory [address] [place] Repository 02/14/2018/02/16/20 [id number] Ambulatory [address] [place] Repository 02/08/2018/02/12/20 [id number] Ambulatory [address] [place] Repository 02/07/2018/02/09/20 [id number] Ambulatory [address] [place] Repository 02/06/2018/02/07/20 [id number] Ambulatory [address] [place] Repository 02/06/2018/02/07/20 [id number] LATISHA MCKEON Ambulatory [address] [place] Repository 02/05/2018 [id number] Ambulatory BMSBuilding: [place] [facility] Repository 02/05/2018/02/06/20 [id number] Ambulatory [place] 18 [facility] ding:LAB Repository 01/31/2018/02/02/20 [id number] Ambulatory [address] [place] Repository 01/31/2018 [id number] Ambulatory [facility] [place] Repository 01/31/2018/02/01/20 [id number] Ambulatory [address] [place] Repository 01/24/2018 [id number] Ambulatory [facility] [place] Repository 01/24/2018/01/26/20 [id number] Ambulatory [address] [place] Repository 01/21/2018/01/22/20 [id number] Ambulatory [address] [place] Repository 01/21/2018 [id number] Ambulatory [facility] [place] Repository 01/21/2018 [id number] Ambulatory [facility] [place] Repository 01/17/2018/01/19/20 [id number] Ambulatory [address] [place] Repository 01/17/2018/01/19/20 [id number] Ambulatory [address] [place] Repository 01/09/2018/01/14/20 [id number] QUINTON, Inpatient [address] [place] Repository 01/07/2018/01/10/20 [id number] SHERIF, Inpatient [address] MEDICAL Repository CENTERBuildi ng:MICURoom: [id number]: 01/07/2018/01/10/20 [id number] SHERIF, Inpatient [address] Other [place] Repository 01/07/2018/01/08/20 [id number] Emergency [place] 18 [facility] ding:ED Repository 01/04/2018 [id number] [facility] [place] [facility] Repository 01/03/2018/01/05/20 [id number] Ambulatory [address] [place] Repository 01/03/2018/01/04/20 [id number] Ambulatory [address] [place] Repository 12/25/2017/12/27/19 [id number] Ambulatory [address] [place] Repository 12/25/2017/12/27/19 [id number] Ambulatory [address] [place] Repository 12/20/2017/12/21/19 [id number] Ambulatory [place] 18 [facility] ding:LAB Repository 12/20/2017/12/21/19 [id number] Ambulatory [address] [place] Repository 12/20/2017/12/22/19 [id number] Ambulatory [address] [place] Repository 12/20/2017/12/22/19 [id number] Ambulatory [address] [place] Repository 12/17/2017/12/19/19 [id number] Ambulatory [address] [place] Repository 12/17/2017/12/18/19 [id number] Ambulatory [address] [place] Repository 12/14/2017 [id number] Ambulatory [facility] Other [place] Repository 12/14/2017 [id number] Ambulatory [facility] Other [place] Repository 12/13/2017/12/14/19 [id number] Ambulatory [place] ding:MEDOUTP Repository 12/13/2017/12/15/19 [id number] Ambulatory [address] [place] Repository 12/06/2017/12/07/19 [id number] Ambulatory [place] 18 [facility] ding:LAB Repository 12/06/2017/12/07/19 [id number] Ambulatory [address] [place] Repository 12/06/2017/12/07/19 [id number] Ambulatory [address] [place] Repository 12/04/2017/12/06/19 [id number] Ambulatory [place] [address] [facility] [place] Repository 12/03/2017/12/04/19 [id number] Ambulatory [address] [place] Repository 11/29/2017/12/01/19 [id number] Ambulatory [address] [place] Repository 11/29/2017/12/01/19 [id number] Ambulatory [address] [place] Repository 11/27/2017/11/28/19 [id number] Ambulatory BMSBuilding: [place] 18 [facility] Repository 11/27/2017/11/28/19 [id number] Ambulatory BMSBuilding: [place] 18 BMS[facility] Repository 11/26/2017/11/27/19 [id number] Ambulatory [address] [place] Repository 11/26/2017/11/27/19 [id number] Ambulatory [address] [place] Repository 11/23/2017 [id number] Ambulatory BMSBuilding: [place] [facility] Repository 11/23/2017 [id number] [facility] ding:MEDOUTP Repository 11/22/2017/11/24/19 [id number] Ambulatory [address] [place] Repository 11/22/2017/11/23/19 [id number] Ambulatory [address] [place] Repository 11/15/2017 [id number] Ambulatory [facility] Main [place] Repository 11/15/2017/11/17/19 [id number] Ambulatory [address] [place] Repository 11/15/2017/11/16/19 [id number] Ambulatory [address] [place] Repository 11/08/2017/11/09/19 [id number] Ambulatory Mary[place] [address] ding:LAB Repository 11/08/2017/11/09/19 [id number] Ambulatory [address] [place] Repository 11/08/2017/11/10/19 [id number] Ambulatory [address] [place] Repository 11/06/2017/11/07/19 [id number] Ambulatory BMSBuilding: Marybeth 18 [facility]MS[facility] Repository 11/02/2017 [id number] [facility] ding:MEDOUTP Repository 11/01/2017/11/03/19 [id number] Ambulatory [address] [place] Repository 11/01/2017/11/02/19 [id number] Ambulatory [facility] [address] [place] Repository 10/31/2017/11/01/19 [id number] Ambulatory [address] Other [place] Repository 10/31/2017/11/01/19 [id number] Ambulatory JABARI Billings [address] MEDICAL Repository CENTERBuildi ng:AGGASTACC 10/25/[id number] [facility] Main [place] Repository 10/25/2017/10/27/19 [id number] Ambulatory [facility] [address] [place] Repository 10/25/2017/10/27/19 [id number] Ambulatory [facility] [place] Repository 10/18/2017/10/20/19 [id number] Ambulatory [facility] [address] [place] Repository 10/18/2017/10/20/19 [id number] Ambulatory [address] [place] Repository 10/18/2017/10/19/19 [id number] Ambulatory [address] [place] Repository 10/16/2017/10/17/19 [id number] Ambulatory [address] [place] Repository 10/11/2017/10/13/19 [id number] Ambulatory [address] [place] Repository 10/11/2017/10/13/19 [id number] Ambulatory [address] [place] Repository 10/11/[id number] [facility] Main [place] Repository 10/08/2017/10/09/19 [id number] Ambulatory [address] [place] Repository 10/08/2017/10/08/19 [id number] Ambulatory [address] [place] Repository 10/04/2017/10/05/19 [id number] Ambulatory [address] ding:MEDOUTP Repository 10/04/2017/10/04/19 [id number] Ambulatory Vo [facility] Main [place] Repository 10/04/2017/10/05/19 [id number] Ambulatory [address] [place] Repository 09/27/2017/09/28/19 [id number] Ambulatory [address] [place] Repository 09/27/2017/09/28/19 [id number] Ambulatory [address] [place] Repository 09/21/2017 [id number] [facility] ding:MEDOUTP Repository 09/20/2017/09/20/19 [id number] Ambulatory [address] Repository 09/20/2017/09/20/19 [id number] Ambulatory [address] Repository 09/14/2017 [id number] [place] [facility] ding:LAB Repository 09/13/2017/09/13/19 [id number] Ambulatory [address] Repository 09/06/2017/09/07/19 [id number] Ambulatory [address] Repository 09/06/2017/09/07/19 [id number] Ambulatory [address] Repository PAYERS PAYERS ENCOUNTER GUARANTOR PAYER SUBSCRIBER SOURCE 08/30/2018 EMANI LOUIS729 Primary ZIA Madden Marybetholiverio BENITEZ [facility] [id number] [id number] [place] [phone]: (330) Number: Repository [phone] () [id number] Date:6801-03-07ERJENNIFER [place] 6983574-[address]WP: 08/30/2018 Secondary NOT GIVENUNK [place] Insurance:SELF PAY [facility] Number: Effective Repository Date:2018-08-16 08/26/2018 EMANI LOUIS729 Primary ZIA BENITEZ [facility] [id number] [id number] Hospital [address]Nlr: (330) Number: Repository [phone] () [id number] Date:6533-20-19JF[address] [address]BY: 08/26/2018 Secondary NOT GIVENUNK [place] Insurance:SELF PAY [facility] Number: Effective Repository Date:2018-08-12 08/20/2018 EMANI LOUIS729 Primary ZIA BENITEZ [facility] [id number] [id number] Ville [id number]: (330) Number: Repository [phone] () [id number] Date:2446-00-74GE [facility] 629030EZNDBYA, [place] [address]LX: 08/20/2018 Secondary NOT GIVENUNK Marybeth Insurance:SELF PAY [facility] Number: Effective Repository Date:2018-08-20 08/20/2018 EMANI Rosa [id number] Primary ZIA BENITEZ [facility]: [facility] [place] CARE [id number] [id number] V[place] [address]Tel: (330) Number: Repository [phone] () [id number] Date:9290-72-60VM [facility] 619643BSOYZDP, [place] [address]FM: 08/20/2018 Secondary NOT GIVENUNK [place] Insurance:SELF PAY [facility] Number: Effective Repository Date:2018-08-20 08/16/2018 EMANI LOUIS729 Primary ZIA BENITEZ [facility] [place] CARE [id number] [id number] Ville [phone]: (330) Number: Repository [phone] () [id number] Date:8610-93-60TV [facility] 003254GMETGDI, [place] [address]ND: 08/16/2018 Secondary NOT GIVENUNK Marybeth Insurance:SELF PAY [facility] Number: Effective Repository Date:2018-08-16 08/09/2018 EMANI LOUIS729 Primary ZIA BENITEZ [facility]: [facility] [place] CARE [id number] [id number] Ville [id number]: (330) Number: Repository [phone] () [id number] Date:7772-93-50XS [facility] 598913IDKJGVL, [place] [address]QV: 08/09/2018 Secondary NOT GIVENUNK [place] Insurance:SELF PAY [facility] Number: Effective Repository Date:2018-08-08 08/01/2018 EMANI LOUIS729 Primary ZIA Rueda E EMMANUEL Insurance:[facility]: [place], [place] CARE [id number] [id number] Ville [address]Tel: (330) Number: Repository [phone] () [id number] Date:0529-42-65BG[address] [address]IE: 08/01/2018 Secondary NOT GIVENUNK Marybeth Insurance:SELF PAY [facility] Number: Effective Repository Date:2018-07-15 07/26/2018 EMANI LOUIS729 Primary ZIA Rueda E EMMANUEL Insurance:[facility]: [facility] [id number] [id number] [place]ille [address]Tel: (330) Number: Repository [phone] () [id number] Date:7425-76-24OMJENNIFER VILLE 6983574[address]WP: 07/26/2018 Secondary NOT GIVENUNK Marybeth Insurance:SELF PAY [facility] Number: Effective Repository Date:2018-07-25 07/19/2018 EMANI LOUIS729 Primary ZIA Rueda E EMMANUEL Insurance:[facility]: [facility] [id number] [id number] Ville [id number]: (330) Number: Repository [phone] () [id number] Date:8933-36-72XV[address] [address]KM: 07/19/2018 Secondary NOT GIVENUNK [place] Insurance:SELF PAY [facility] Number: Effective Repository Date:2018-07-18 07/08/2018 EMANI LOUIS729 Primary ZIA Rueda E EMMANUEL Insurance:[facility]: [place] CARE [id number] [id number] [place]ille [address]Tel: (330) Number: Repository [phone] () [id number] Date:0682-11-42PG [facility] 218580NBNEHXY, [place] [address]PK: 07/08/2018 Secondary NOT GIVENUNK Marybeth Insurance:SELF PAY [facility] Number: Effective Repository Date:2018-06-13 07/06/2018 EMANI Rosa LOUISEQUIH439 Primary ZIA Madden [place] E EMMANUEL Insurance:[facility]: [facility] [id number] [id number] [place] 579771Tel: (330) Number: Repository [phone] () [id number] Date:6266-09-06IE [address] [address]TX: 07/06/2018 Secondary NOT GIVENUNK Marybeth Insurance:SELF PAY [facility] Number: Effective Repository Date:2018-07-05 06/21/2018 EMANI STRICKLAND9 Primary ZIA Rueda E EMMANUEL Insurance:[facility]: [facility] [id number] [id number] Hospital 28219Mik: (330) Number: Repository [phone] () [id number] Date:9086-22-00DJ [address] [address]YV: 06/21/2018 Secondary NOT GIVENUNK Marybeth Insurance:SELF PAY [facility] Number: Effective Repository Date:2018-06-20 06/03/2018 EMANI STRICKLAND9 Primary ZIA Rueda E EMMANUEL [facility]: [facility] [id number] [id number] Hospital 96396Hlz: (330) Number: Repository [phone] () [id number] Date:9700-18-92DE [facility] 475026JUJCJDE, [place] [address]TG: 06/03/2018 Secondary NOT GIVENUNK [place] Insurance:SELF PAY [facility] Number: Effective Repository Date:2018-06-03 05/31/2018 EMANI LOUIS729 Primary ZIA Madden [place] E EMMANUEL Insurance:[facility]: [facility] [id number] [id number] [place]ille [id number]: (330) Number: Repository [phone] () [id number] Date:6659-40-66YW [address] [address]RI: 05/31/2018 Secondary NOT GIVENUNK Marybeth Insurance:SELF PAY [facility] Number: Effective Repository Date:2018-05-30 05/30/2018 EMANI LOUIS729 Primary ZIA Rueda E EMMANUEL Insurance:[facility]: [facility] [id number] [id number] [place]ille [address]Tel: (330) Number: Repository [phone] () [id number] Date:7132-79-64VV [address] [address]NP: 05/30/2018 Secondary NOT GIVENUNK Mary[place] Insurance:SELF PAY [facility] Number: Effective Repository Date:2018-05-15 05/17/2018 EMANI LOUIS729 Primary ZIA Rueda E EMMANUEL Insurance:[facility]: [facility] [id number] [id number] [place]ille [id number]: (330) Number: Repository [phone] () [id number] Date:0848-77-10XB [address]MWISPBW, [place] [address]TR: 05/17/2018 Secondary NOT GIVENUNK Marybeth Insurance:SELF PAY [facility] Number: Effective Repository Date:2018-05-16 05/03/2018 EMANI LOUIS729 Primary ZIA Rueda E EMMANUEL Insurance:[facility]: [facility] [id number] [id number] [place]ille [address]Tel: (330) Number: Repository [phone] () [id number] Date:7684-36-25WL [facility] 6[address]33ELKVXGZ[address] [place] [address]FF: 05/03/2018 Secondary NOT GIVENUNK [place] Insurance:SELF PAY [facility] Number: Effective Repository Date:2018-05-02 05/03/2018 EMANI LOUIS729 Primary ZIA Baker EMMANUEL Insurance:[facility]: [place] CARE [id number] [id number] Ville [id number]: (330) Number: Repository [phone] () [id number] Date:6146-81-89UT [address] [address]LB: 05/03/2018 Secondary NOT GIVENUNK [place] Insurance:SELF PAY [facility] Number: Effective Repository Date:2018-04-16 04/26/2018 EMANI STRICKLAND9 Primary ZIA BENITEZ [facility]: [place] CARE [id number] [id number] Hospital 57182Sqm: (330) Number: Repository [phone] () [id number] Date:5851-51-32FT [address]TZRPEYR, [place] [address]GU: 04/26/2018 Secondary NOT GIVENUNK [place] Insurance:SELF PAY [facility] Number: Effective Repository Date:2018-04-25 04/19/2018 EMANI LOUIS729 Primary ZIA BENITEZ [facility]: [place] CARE [id number] [id number] Hospital 817[address]Mcr: (330) Number: Repository [phone] () [id number] Date:4317-05-86OL [facility] 021471UAZRNHX, [place] [address]WI: 04/19/2018 Secondary NOT GIVENUNK [place] Insurance:SELF PAY [facility] Number: Effective Repository Date:2018-04-18 04/12/2018 EMANI LOUIS729 Primary ZIA Madden [place] E EMMANUEL Insurance:[facility]: [facility] [id number] [id number] Ville [phone]: (330) Number: Repository [phone] () [id number] Date:6338-29-59WW [place] 6904274[address]WP: 04/12/2018 Secondary NOT GIVENUNK [place] Insurance:SELF PAY [facility] Number: Effective Repository Date:2018-04-11 04/09/2018 EMANI LOUIS729 Primary ZIA Carranzaoster E EMMANUEL Insurance:[facility]: [facility] [id number] [id number] Ville [id number]: (330) Number: Repository [phone] () [id number] Date:6427-39-78RD [address] [address]FC: 04/09/2018 Secondary NOT GIVENUNK [place] Insurance:SELF PAY [facility] Number: Effective Repository Date:2018-02-22 03/29/2018 EMANI LOUIS729 Primary ZIA Rueda E EMMANUEL Insurance:[facility]: [facility] [id number] [id number] Ville [id number]: (330) Number: Repository [phone] () [id number] Date:0625-34-73MU [address]EUCZJCR[address] [place] [address]WO: 03/29/2018 Secondary NOT GIVENUNK [place] Insurance:SELF PAY [facility] Number: Effective Repository Date:2018-02-26 03/29/2018 EMANI LOUIS729 Primary ZIA Carranzaoster E EMMANUEL Insurance:[facility]: [facility] [id number] [id number] Hospital 05975Gvs: (330) Number: Repository [phone] () [id number] Date:7817-85-52BP [facility] 340185UJYXWEI, [place] [address]EX: 03/29/2018 Secondary NOT GIVENUNK [place] Insurance:SELF PAY [facility] Number: Effective Repository Date:2018-03-28 03/14/2018 EMANI STRICKLAND9 Primary ZIA Madden Marybeth E EMMANUEL [facility]: [facility] [id number] [id number] Ville [phone]: (330) Number: Repository [phone] () [id number] Date:3778-66-76EX [address] [address]NS: 03/14/2018 Secondary NOT GIVENUNK Marybeth Insurance:SELF PAY [facility] Number: Effective Repository Date:2018-03-14 02/22/2018 EMANI STRICKLAND9 Primary ZIA Rueda E EMMANUEL Insurance:[facility]: [facility] [id number] [id number] [place]ille [id number]: (330) Number: Repository [phone] () [id number] Date:4263-32-94NW [address]DSIUDXF, [place] [address]IG: 02/22/2018 Secondary NOT GIVENUNK Marybeth Insurance:SELF PAY [facility] Number: Effective Repository Date:2018-02-14 02/22/2018 EMANI STRICKLAND9 Primary ZIA Rueda E EMMANUEL Insurance:[facility]: [facility] [id number] [id number] Ville [id number]: (330) Number: Repository [phone] () [id number] Date:0292-36-90HY [address]FBHHHCM, [place] [address]BL: 02/22/2018 Secondary NOT GIVENUNK [place] Insurance:SELF PAY [facility] Number: Effective Repository Date:2018-02-22 02/21/2018 EMANI LOUIS729 Primary ZIA BENITEZ Insurance:[facility]: [facility] [id number] [id number] [place]ille [id number]: (330) Number: Repository [phone] () [id number] Date:7282-31-39HN[address] [address]ZU: 02/21/2018 Secondary NOT GIVENUNK [place] Insurance:SELF PAY [facility] Number: Effective Repository Date:2018-02-08 02/05/2018 EMANI LOUIS729 Primary ZIA BENITEZ Insurance:[facility]: [facility] [id number] [id number] [place]ille [address]Tel: (330) Number: Repository [phone] () [id number] Date:1624-96-11XO [address]WZHFDIL, [place] [address]WG: 02/05/2018 Secondary NOT GIVENUNK [place] Insurance:SELF PAY [facility] Number: Effective Repository Date:2017-11-06 02/05/2018 EMANI LOUIS729 Primary ZIA BENITEZ Insurance:[facility]: [facility] [id number] [place] [address]Tel: (330) Number: Repository [phone] () [id number] Date:6897-47-16PY [address]NZZQSJL, [place] [address]PN: 02/05/2018 Secondary NOT GIVENUNK [place] Insurance:SELF PAY [facility] Number: Effective Repository Date:2018-01-10 01/07/2018 EMANI Lee Primary Insurance:[facility] ZIA Garza [facility]: [facility] Number: JANE: [facility] [id number] E [id number] Repository [facility], Date: [facility]51113Upb: () 01/07/2018 Secondary EMANI Billings [facility] Insurance:MEDICARE [facility]: Health System APolic Number: [id number] Repository [id number] Date: 01/07/2018 EMANI Rosa [id number] Primary ZIA BENITEZ Insurance:[facility]: [facility] [id number] [id number] Ville [id number]: (330) Number: Repository [phone] () [id number] Date:9001-49-32VR [address] [address]RG: 01/07/2018 Secondary NOT GIVENUNK [place] Insurance:SELF PAY [facility] Number: Effective Repository Date:2018-01-07 01/04/2018 EMANI Rosa [id number] Primary ZIA BENITEZ Insurance:[facility]: [facility] [id number] [id number] [place]ille [id number]: (330) Number: Repository [phone] () [id number] Date:3159-71-03ND [address] [address]SW: 01/04/2018 Secondary NOT GIVENUNK [place] Insurance:SELF PAY [facility] Number: Effective Repository Date:2018-01-03 12/20/2017 EMANI Rosa [id number] Primary ZIA BENITEZ Insurance:[facility]: [facility] [id number] [place] [address]Tel: (330) Number: Repository [phone] () [id number] Date:9669-85-46GR [address] [place] [address]NM: 12/20/2017 Secondary NOT GIVENUNK Marybeth Insurance:SELF PAY [facility] Number: Effective Repository Date:2017-12-11 12/13/2017 EMANI LOUIS729 Primary ZIA Madden Marybeth E EMMANUEL Insurance:[facility]: [facility] [id number] [id number] [place]ille [address]Tel: (330) Number: Repository [phone] () [id number] Date:8361-09-50TY [address] [address]SN: 12/13/2017 Secondary NOT GIVENUNK [place] Insurance:SELF PAY [facility] Number: Effective Repository Date:2017-12-13 12/06/2017 EMANI LOUIS729 Primary ZIA Rueda E EMMANUEL Insurance:[facility]: [facility] [id number] [id number] [place]ille [address]Tel: (330) Number: Repository [phone] () [id number] Date:6189-53-52DM [address]PENFXMZ, [place] [address]FD: 12/06/2017 Secondary NOT GIVENUNK Marybeth Insurance:SELF PAY [facility] Number: Effective Repository Date:2017-11-12 11/27/2017 EMANI LOUIS729 Primary ZIA Rueda E EMMANUEL Insurance:[facility]: [facility] [id number] [id number] Ville [address]Tel: (330) Number: Repository [phone] () [id number] Date:9698-56-60NB [facility] 668891XOXUKJA, [place] [address]GT: 11/27/2017 Secondary NOT GIVENUNK [place] Insurance:SELF PAY [facility] Number: Effective Repository Date:2017-11-27 11/27/2017 EMANI Lee [id number] Primary ZIA Rueda E EMMANUEL Insurance:[facility]: [facility] [id number] Hospital 667[address]Dpj: (330) Number: Repository [phone] () [id number] Date:1814-92-98IA [address] [address]YH: 11/27/2017 Secondary NOT GIVENUNK Marybeth Insurance:SELF PAY [facility] Number: Effective Repository Date:2017-11-27 11/23/2017 EMANI LOUIS729 Primary ZIA C [place] E EMMANUEL [facility] [id number] Ville [id number]: (330) Number: Repository [phone] () [id number] Date:3585-56-48WX [address] [address]JY: 11/23/2017 Secondary NOT GIVENUNK [place] Insurance:SELF PAY [facility] Number: Effective Repository Date:2017-11-23 11/23/2017 EMANI STRICKLAND9 Primary ZIA C [place] E EMMANUEL Insurance:[facility]: [facility] [id number] [id number] Hospital [address]Ugl: (330) Number: Repository [phone] () [id number] Date:0552-59-14NN [address] [address]XX: 11/23/2017 Secondary NOT GIVENUNK Marybeth Insurance:SELF PAY [facility] Number: Effective Repository Date:2017-11-22 11/08/2017 EMANI LOUIS729 Primary ZIA C [place] E EMMANUEL Insurance:[facility]: [facility] [id number] Hospital 63594Zgd: (330) Number: Repository [phone] () [id number] Date:9516-88-13LW[address] [address]AU: 11/08/2017 Secondary NOT GIVENUNK Marybeth Insurance:SELF PAY [facility] Number: Effective Repository Date:2017-09-13 11/06/2017 EMANI LOUIS729 Primary ZIA BENITEZ [facility] [id number] [id number] Hospital 44767Heh: (330) Number: Repository [phone] () [id number] Date:7128-74-50YR [address]UQYESCF, [place] [address]JN: 11/06/2017 Secondary NOT GIVENUNK Mary[place] Insurance:SELF PAY [facility] Number: Effective Repository Date:2017-11-06 11/02/2017 EMANI LOUIS729 Primary ZIA BENITEZ [facility] [id number] [id number] Ville [id number]: (330) Number: Repository [phone] () [id number] Date:5909-07-18LZ [address]TJOYNNT, [place] [address]CB: 11/02/2017 Secondary NOT GIVENUNK [place] Insurance:SELF PAY [facility] Number: Effective Repository Date:2017-11-01 10/31/2017 EMANI CARDB: Primary EMANI CARDB: [facility] [id number] E Insurance:MEDICARE [id number] Number: Repository [place] [address]Vwl: [id number] Date: () 10/31/2017 Secondary ZIA Madden [facility] Number: [id number] Repository [id number] Date: 10/04/2017 EMANI LOUIS729 Primary ZIA BENITEZ Insurance:[facility]: [facility] [id number] [id number] Ville [id number]: (330) Number: Repository [phone] () [id number] Date:2188-80-00ZI [address]ONXBALX, [place] [address]DZ: 10/04/2017 Secondary NOT GIVENUNK [place] Insurance:SELF PAY [facility] Number: Effective Repository Date:2017-10-04 09/21/2017 EMANI STRICKLAND9 Primary ZIA BENITEZ [facility] [place] CARE [id number] [facility] [address]Gjg: [phone]) Number: Repository [phone] () [id number] Date:[id number] [facility] [address], [place] [address]MO: 09/21/2017 Secondary NOT GIVENUNK [place] Insurance:SELF PAY [facility] Number: Effective Repository Date:2017-09-20 09/14/2017 EMANI STRICKLAND9 Primary ZIA BENITEZ [facility] [place] [place] CARE [id number] [id number] [facility] [address]Gad: [phone]) Number: Repository [phone] () [id number] Date:5533-00-21RS [facility] [address], [place] [id number]: 09/14/2017 Secondary NOT GIVENUNK [place] Insurance:SELF PAY [facility] Number: Effective Repository Date:2017-09-14
== END ==
PROVIDERS: Family Provider Internal Medicine; PCP Internal Medicine; Referring Provider Internal Medicine Hematology & Oncology; Visit Provider Internal Medicine Hematology & Oncology
DX: Z51.89 Encounter for other specified aftercare (principal); N18.9 Chronic kidney disease, unspecified; D64.9 Anemia, unspecified; K92.2 Gastrointestinal hemorrhage, unspecified
CPT/HCPCS: 36430; 86850; 86900; 86902; 86920; 86922; J7040; P9016; A4216

== ENCOUNTER 2018-08-01 10:14 | Outpatient (RCR) | payer OTHER, SELFPAY ==
[2018-07-05 11:20] VITALS: BMI 25.6
[2018-07-19 08:58] VITALS: BMI 24.1
[2018-07-22 12:35] LABS: International Normalized Ratio 3.1
[2018-08-01 11:42] LABS: International Normalized Ratio 2.4; Prothrombin Time (Protime)PT. 26.6 SECONDS (11.7-14.9)
== END 2018-08-01 11:00 | disposition home or self-care (01) ==
LOC: LAB 10:14
PROVIDERS: Family Provider Internal Medicine; PCP Internal Medicine; Referring Provider Internal Medicine Cardiovascular Disease; Visit Provider Internal Medicine Cardiovascular Disease
DX: Z95.2 Presence of prosthetic heart valve (principal); Z79.01 Long term (current) use of 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
CPT/HCPCS: 36415; 85610

== ENCOUNTER → 2018-08-09 08:49 | Outpatient (CLI) | payer OTHER, SELFPAY ==
[2018-07-26 08:49] VITALS: BMI 24.1
[2018-08-09 08:58] VITALS: BP 77/48; PULSE 105; RESP 16; TEMP 36.7; O2SAT 99; BMI 24.1
[2018-08-09 09:41] VITALS: BP 78/34; PULSE 92; RESP 15; TEMP 36.6; O2SAT 95
[2018-08-09 10:41] VITALS: BP 118/72; PULSE 90; RESP 16; TEMP 36.4; O2SAT 96
[2018-08-09 11:17] VITALS: BP 72/52; PULSE 107; RESP 16; TEMP 36.6; O2SAT 94
[2018-08-09 12:08] VITALS: BP 63/39; PULSE 85; RESP 15; TEMP 36.6; O2SAT 94
[2018-08-09 13:08] VITALS: BP 72/46; PULSE 70; RESP 16; TEMP 36.5; O2SAT 94
== END ==
PROVIDERS: Family Provider Internal Medicine; PCP Internal Medicine; Referring Provider Internal Medicine Hematology & Oncology; Visit Provider Internal Medicine Hematology & Oncology
DX: N18.9 Chronic kidney disease, unspecified (principal); D63.1 Anemia in chronic kidney disease
CPT/HCPCS: 36430; 86850; 86900; 86902; 86920; 86922; J7040; P9016; P9040; A4216

== ENCOUNTER 2018-08-30 09:29 | Day surgery (SDC) | payer OTHER, SELFPAY ==
[2018-08-09 08:58] VITALS: BMI 24.1
[2018-08-20 09:21] VITALS: BMI 24.8
[2018-08-20 10:18] LABS: Bacteria 0 SEEN /hpf (None Seen); Mucous, Urine 0 SEEN /hpf (<or=2+); Red Blood Cells-Urine 0 SEEN /hpf (0-5)
--- NOTE | 2018-08-20 10:43 | RAD_ITS ---
STUDY: X-RAY CHEST REASON FOR EXAM: Female, 77 years old. Preoperative, PPM generator change. TECHNIQUE: PA and lateral chest COMPARISON: 05/24/2017 FINDINGS: Left pectoral dual-lead pacer device. Median sternotomy, mitral annuloplasty. Moderate right pleural effusion, prominent right lung base atelectasis, stable features compared to imaging of 05/24/2017. Right upper lung clear. Left lung clear. Background features of COPD/emphysema. Mild cardiomegaly. Normal mediastinal silhouette. No acute osseous or upper abdominal process. RAD/Chest PA and Lateral IMPRESSION: Stable features of the right lower lung, moderate effusion, basilar atelectasis. The lung has the same features on prior imaging as far back as May 2017. Likely a chronic loculated pleural effusion. Electronically Signed: Aneudy Hernandez MD at 12:06 EST Tel , Service support ,
[2018-08-20 11:10] LABS: Hematocrit 32.2 % (37-47); Hemoglobin 9.8 g/dl (12.0-15.0); Mean Corp Hgb Conc 30.4 g/gl (32-36); Mean Corpuscular Hgb 29.8 pg (27.0-32.0); Mean Corpuscular Volume 97.9 fL (81-99); Mean Platelet Vol. 11.8 fl (6.2-12.0); Platelet Count 79 K/mm3 (150-450); RBC Distribution Width CV 16.1 % (11.6-14.6); RBC Distribution Width SD 57.7 fl (35.1-43.9); Red Blood Count 3.29 M/mm3 (4.2-5.4); White Blood Count 3.6 K/mm3 (4.4-11.0)
[2018-08-20 11:12] LABS: Color, Urine Yellow (Yellow); Glucose, Dipstick Normal (Normal); Ketone-Dipstick Negative (Negative); Leukocyte Esterase-Dipstick 500 /ul (Negative); Nitrite-Dipstick Negative (Negative); Occult Blood-Urine Negative /ul (Negative); Protein-Dipstick Negative (Negative); Specific Gravity, Urine 1.015 (1.002-1.030); Urine Bilirubin Dipstick Negative (Negative); Urine Clarity Clear (Clear); Urine Urobilinogen Normal (Normal)
[2018-08-20 11:14] LABS: Squamous Epithelial Cells - UA 0-5 SEEN /hpf (5-10); White Blood Cells 0-5 SEEN /hpf (0-5)
[2018-08-20 11:16] LABS: Scan Indicated on CBC? Y/N NO
[2018-08-20 11:24] LABS: International Normalized Ratio 3.7
[2018-08-20 11:29] LABS: Anion Gap 4 (5-15); BUN 18 mg/dL (7-18); BUN/Creat Ratio 11.4 RATIO (10-20); Calcium,Total 8.3 mg/dL (8.5-10.1); Chloride 111 mmol/L (98-107); Creatinine, Serum 1.58 mg/dL (0.55-1.02); EST Glomerular Filtration Rate 34 mL/min (>60); Est Glom Filt Rate - Afr Amer 41 mL/min (>60); Glucose 132 mg/dL (74-106); Potassium 4.6 mmol/L (3.5-5.1); Sodium Level 141 mmol/L (136-145)
[2018-08-29 09:29] VITALS: BMI 24.8
[2018-08-30 09:50] LABS: Prothrombin Time Fingerstick 21.5 SEC (11.9-14.4)
--- NOTE | 2018-08-30 12:29 | CL.IE_ITS ---
Patient: EMANI LOUIS Study Date: 08/30/2018 Performing: Eddie Mendoza MD : 1940 Age: 77 Gender: female PROCEDURES PERFORMED [id number] REMOVAL+REPLACEMENT PACER-DUAL LEAD INDICATIONS Sinoatrial node dysfunction/Sick sinus syndrome PROCEDURE DETAILS The patient was brought to the Catheterization Lab in the postabsorptive nonsedated state. Infor med consent was obtained prior to the procedure. Local anesthetic was given subcutaneously to the le ft jugular region with Lidocaine 2%. PPM generator was removed. PPM generator was then interrogated b y the report programmer. PPM generator was attached to the lead(s) and inserted into the pocket. Subcutaneou s closure was completed with 3-0 Vicryl. Skin closure was completed with 4-0 Vicryl. Instrument, spon ge, and needle counts were noted to be normal. The patient tolerated the procedure well. Estimated Blood Loss: < 10 mls IMPLANTED / EX-PLANTED DEVICES IMPLANTED DEVICE(S): PPM Generator - Top Lift Nailer: [employer] HTI, Model # Accolade MR DR Pacemaker Model L311 , Serial # [id number] DEVICE PARAMETERS ATRIAL LEAD PARAMETERS: P wave- 2.2 (mV) impedence- 1683 (OHMS) VENTRICULAR LEAD PARAMETERS: R wave- 10.2 (mV) Current- 1.7 (mA) threshold- 0.7 (V) impedence- 414 (OHMS) DEVICE PARAMETERS: Mode- DDDR Lower rate- 70 Upper rate- 130 CONCLUSIONS / RECOMMENDATIONS Device Conclusions: Successful implantation of a dual chamber pacemaker battery change and replacemen t Device Recommendations: Follow up with Primary Care Physician PROCEDURE MEDICATIONS Oxygen: 2 L/min via nasal cannula Antibiotic given in appropriate timeframe. Ancef 2 Gm IV @ 08/30/2018 11:25:07 Signed By Eddie Mendoza MD On 08/30/2018 12:28:56 Eddie Mendoza MD
--- OUTSIDE RECORDS SUMMARY | 2018-11-03 16:54 | XMS RPT_ITS ---
:1940 Author Organization OHIP Support Name Relationship Address Phone ZIA LOUIS Unavailable [address] + [place] [address] OLIVIA, LATOSHA Unavailable Unavailable + R Unavailable Unavailable Unavailable ZIA LOUIS Unavailable [address] + [place] [address] OLIVIA, LATOSHA Unavailable Unavailable + R Unavailable Unavailable Unavailable IZA LOUIS Unavailable [address] + [place] [address] OLIVIA, LATOSHA Unavailable Unavailable + R Unavailable Unavailable Unavailable ZIA LOUIS Unavailable [address] + [place] [address] OLIVIA, LATOSHA Unavailable Unavailable + R Unavailable Unavailable Unavailable ZIA LOUIS Unavailable [address] + [place] [address] OLIVIA, LATOSHA Unavailable Unavailable + R Unavailable Unavailable Unavailable ZIA LOUIS Unavailable [address] + [place] [address] OLIVIA, LATOSHA Unavailable Unavailable + R Unavailable Unavailable Unavailable ZIA LOUIS Unavailable [address] + [place] [address] OLIVIA, LATOSHA Unavailable Unavailable + R Unavailable Unavailable Unavailable ZIA LOUIS Unavailable [address] + [place] [address] OLIVIA, LATOSHA Unavailable Unavailable + R Unavailable Unavailable Unavailable ZIA LOUIS Unavailable [address] + [place] [address] OLIVIA, LATOSHA Unavailable Unavailable + R Unavailable Unavailable Unavailable ZIA LOUIS Unavailable [address] + [place] [address] OLIVIA, LATOSHA Unavailable Unavailable + R Unavailable Unavailable Unavailable LOUISPACHECOEL Unavailable [address] + [place] [address] OLIVIA, LATOSHA Unavailable Unavailable + [place] [address] R Unavailable Unavailable Unavailable MISSY ZIA Unavailable [address] + [place] [address] OLIVIA, LATOSHA Unavailable Unavailable + [place] [address] R Unavailable Unavailable Unavailable PACHECO LOUISEL Unavailable [address] + [place] [address] OLIVIA, LATOSHA Unavailable . + ., [place] . R Unavailable Unavailable Unavailable ZIA LOUIS Unavailable [address] + [place] [address] OLIVIA, LATOSHA Unavailable Unavailable + R Unavailable Unavailable Unavailable MISSY ZIA Unavailable [address] + [place] [address] OLIVIA, LATOSHA Unavailable Unavailable + R Unavailable Unavailable Unavailable MISSYPACHECOEL Unavailable [address] + [place] [address] OLIVIA, LATOSHA Unavailable Unavailable + R Unavailable Unavailable Unavailable ZIA LOUIS Unavailable [address] + [place] [address] OLIVIA, LATOSHA Unavailable Unavailable + R Unavailable Unavailable Unavailable MISSYPACHECOEL Unavailable [address] + [place] [address] OLIVIA, LATOSHA Unavailable Unavailable + R Unavailable Unavailable Unavailable MISSYPACHECOEL Unavailable [address] + [place] [address] OLIVIA, LATOSHA Unavailable Unavailable + R Unavailable Unavailable Unavailable ZIA LOUIS Unavailable [address] + [place] [address] OLIVIA, LATOSHA Unavailable Unavailable + R Unavailable Unavailable Unavailable ZIA LOUIS Unavailable [address] + [place] [address] OLIVIA, LATOSHA Unavailable Unavailable + R Unavailable Unavailable Unavailable ZIA LOUIS Unavailable [address] + [place] [address] OLIVIA, LATOSHA Unavailable Unavailable + R Unavailable Unavailable Unavailable ZIA LOUIS Unavailable [address] + [place] [address] OLIVIA, LATOSHA Unavailable Unavailable + R Unavailable Unavailable Unavailable ZIA LOUIS Unavailable [address] + [place] [address] OLIVIA, LATOSHA Unavailable Unavailable + R Unavailable Unavailable Unavailable ZIA LOUIS Unavailable [address] + [place] [address] OLIVIA, LATOSHA Unavailable Unavailable + R Unavailable Unavailable Unavailable ZIA LOUIS Unavailable [address] + [place] [address] OLIVIA, LATOSHA Unavailable Unavailable + R Unavailable Unavailable Unavailable ZIA LOUIS Unavailable [address] + [place] [address] OLIVIA, LATOSHA Unavailable Unavailable + R Unavailable Unavailable Unavailable ZIA LOUIS Unavailable [address] + [place] [address] OLIVIA, LATOSHA Unavailable Unavailable + R Unavailable Unavailable Unavailable ZIA LOUIS Unavailable [address] + [place] [address] OLIVIA, LATOSHA Unavailable Unavailable + R Unavailable Unavailable Unavailable ZIA LOUIS Unavailable [address] + [place] [address] OLIVIA, LATOSHA Unavailable Unavailable + R Unavailable Unavailable Unavailable ZIA LOUIS Unavailable [address] + [place] [address] OLIVIA, LATOSHA Unavailable Unavailable + R Unavailable Unavailable Unavailable ZIA LOUIS Unavailable [address] + [place] [address] LATOSHA OLIVIA Unavailable Unavailable + R Unavailable Unavailable Unavailable ZIA LOUIS Unavailable [address] + [place] [address] LATOSHA OLIVIA Unavailable Unavailable + R Unavailable Unavailable Unavailable ZIA LOUIS Unavailable [address] + [place] [address] LATOSHA OLIVIA Unavailable Unavailable + R Unavailable Unavailable Unavailable ZIA LOUIS Unavailable [address] + [place] [address] R Unavailable Unavailable Unavailable ZIA LOUIS Unavailable [address] + [place] [address] R Unavailable Unavailable Unavailable ZIA LOUIS Unavailable [address] + [place] [address] R Unavailable Unavailable Unavailable ZIA LOUIS Unavailable [address] + [place] [address] R Unavailable Unavailable Unavailable ZIA LOUIS Unavailable [address] + [place] [address] R Unavailable Unavailable Unavailable ZIA LOUIS Unavailable [address] + [place] [address] R Unavailable Unavailable Unavailable ZIA LOUIS Unavailable [address] + [place] [address] R Unavailable Unavailable Unavailable ZIA LOUIS Unavailable [address] + [place] [address] R Unavailable Unavailable Unavailable ZIA LOUIS Unavailable [address] + [place] [address] R Unavailable Unavailable Unavailable ZIA LOUIS Unavailable [address] + [place] [address] R Unavailable Unavailable Unavailable ZIA LOUIS Unavailable [address] + [place] [address] R Unavailable Unavailable Unavailable Care Team Providers Name Role Phone JARROD, LAPMAN Referring Unavailable JARROD, LAPMAN Referring Unavailable JARROD, LAPMAN Referring Unavailable JARROD, LAPMAN Referring Unavailable JARROD, LAPMAN Referring Unavailable JARROD, LAPMAN Referring Unavailable JARROD, LAPMAN Referring Unavailable JARROD, LAPMAN Referring Unavailable JARROD, LAPMAN Attending Unavailable JARROD, LAPMAN Referring Unavailable JARROD, LAPMAN Referring Unavailable JARROD, HUBERTMAN Referring Unavailable JARROD, HUBERTMAN Referring Unavailable SILVINO HU Attending Unavailable JARROD, YARA Referring Unavailable JARROD, HUBERTMAN Referring Unavailable JARROD, HUBERTMAN Referring Unavailable JARROD, HUBERTMAN Referring Unavailable JARROD, HUBERTMAN Referring Unavailable JARROD, HUBERTMAN Referring Unavailable JARROD, HUBERTMAN Referring Unavailable JARROD, HUBERTMAN Referring Unavailable JARROD, HUBERTMAN Referring Unavailable JARROD, HUBERTMAN Referring Unavailable JARROD, HUBERTMAN Referring Unavailable JARROD, HUBERTMAN Referring Unavailable JARROD, HUBERTMAN Referring Unavailable JARROD, HUBERTMAN Referring Unavailable JARROD, HUBERTMAN Referring Unavailable JARROD, HUBERTMAN Referring Unavailable BAGGOTTSILVINOE Referring Unavailable BAGGOTTSILVINO Attending Unavailable BAGGOTT, SILVINO BURTONE Referring Unavailable JARROD, HUBERTMAN Referring Unavailable JARROD, HUBERTMAN Referring Unavailable BAGGOTTSILVINOE Referring Unavailable MUÑOZKODAK QUIJANO Attending Unavailable JARROD, YARA Referring Unavailable JARROD, HUBERTMAN Referring Unavailable JARROD, HUBERTMAN Referring Unavailable JARROD, HUBERTMAN Referring Unavailable JARROD, HUBERTMAN Referring Unavailable JARROD, HUBERTMAN Referring Unavailable JARROD, YARA Attending Unavailable JARROD, HUBERTMAN Referring Unavailable JARROD, HUBERTMAN Referring Unavailable JARROD, HUBERTMAN Referring Unavailable JARROD, YARA Referring Unavailable LARS OLIVAREZ Referring Unavailable JARROD, YARA Referring Unavailable MELANIA ALMANZA Admitting Unavailable FRANSISCO ALVARENGA Referring Unavailable FAY FIERRO Attending Unavailable JARROD, YARA Referring Unavailable JARROD, YARA Referring Unavailable SUETEENA S Attending Unavailable MITZYTTSILVINO Referring Unavailable SUETEENA Referring Unavailable MARY WHIPPLE Referring Unavailable JARROD, HUBERTMAN Referring Unavailable JARROD, HUBERTMAN Referring Unavailable JARROD, HUBERTMAN Referring Unavailable JARROD, HUBERTMAN Referring Unavailable JARROD, HUBERTMAN Referring Unavailable JESLATISHA Attending Unavailable MITZYTTSILVINO Referring Unavailable JESLATISHA VELASQUEZ Admitting Unavailable JESLATISHA VELASQUEZ Attending Unavailable JARROD, HUBERTMAN Referring Unavailable JARROD, [...] LAPMAN Referring Unavailable JARROD, LAPMAN Referring Unavailable MUÑOZ, CARRIE Referring Unavailable JARROD, LAPMAN Referring Unavailable MUÑOZ, CARRIE Attending Unavailable MUÑOZ, CARRIE Referring Unavailable JARROD, LAPMAN Referring Unavailable JARROD, [...] LAPMAN Referring Unavailable JARROD, LAPMAN Referring Unavailable STEVE SUERO Attending Unavailable BAGGOTT, SILVINO HERRERA Referring Unavailable BAGGOTT, SILVINO HERRERA Referring Unavailable BAGGOTT, SILVINO HERRERA Referring Unavailable KAKARALAMIREYAHEMA Admitting Unavailable KAKARALA, HEMA Attending Unavailable MELISSA MURRIETA) Consulting Unavailable Jarrod, Hubertman Attending Unavailable Jarrod, Lapman Referring Unavailable Muñoz, Kodak Primary Care Unavailable Lars Olivarez Attending Unavailable Lars Olivarez Referring Unavailable Muñoz, Kodak Primary Care Unavailable Jarrod, Lapman Consulting Unavailable Kelly, Eddie Attending Unavailable Kelly, Eddie Referring Unavailable Muñoz, Kodak Primary Care Unavailable Kelly, [place] Attending Unavailable Kelly, Eddie Referring Unavailable Muñoz, Kodak Primary Care Unavailable Kelly, [place] Attending Unavailable Kelly, [place] Referring Unavailable Muñoz, Kodak Primary Care Unavailable Jarrod, Lapman Attending Unavailable Muñoz, Kodak Primary Care Unavailable Jarrod, Lapman Attending Unavailable Muñoz, Kodak Primary Care Unavailable Jarrod, Lapman Attending Unavailable Jarrod, Lapman Referring Unavailable Muñoz, Kodak Primary Care Unavailable Angélica Dunn Attending Unavailable Muñoz, Kodak Referring Unavailable Muñoz, Kodak Primary Care Unavailable Kelly, [place] Attending Unavailable Kelly, Eddie Referring Unavailable Muñoz, Kodak Primary Care Unavailable Jarrod, Lapman Attending Unavailable Jarrod, Lapman Referring Unavailable Muñoz, Kodak Primary Care Unavailable Lorenzo Kimball Attending Unavailable Kelly, [place] Attending Unavailable Muñoz, Kodak Referring Unavailable Muñoz, Kodak Primary Care Unavailable Angélica Dunn Attending Unavailable Muñoz, Kodak Referring Unavailable Muñoz, Kodak Primary Care Unavailable Kelly, [place] Attending Unavailable Kelly, Eddie Referring Unavailable Muñoz, Kodak Primary Care Unavailable Jarrod, Lapman Attending Unavailable Jarrod, Lapman Referring Unavailable Muñoz, Kodak Primary Care Unavailable Masci, Lars Attending Unavailable Masci, Lars Referring Unavailable Muñoz, Kodak Primary Care Unavailable Jarrod, Lapman Consulting Unavailable Muñoz, Kodak Primary Care Unavailable Jessie Boothe Attending Unavailable Kelly, [place] Attending Unavailable Kelly, [place] Referring Unavailable Muñoz, Kodak Primary Care Unavailable Muñoz, Kodak Referring Unavailable Kelly, [place] Attending Unavailable Kelly, Eddie Referring Unavailable Muñoz, Kodak Primary Care Unavailable Kelly, [place] Attending Unavailable Kelly, Eddie Referring Unavailable Muñoz, Kodak Primary Care Unavailable Kelly, Eddie Attending Unavailable Kelly, [place] Referring Unavailable Muñoz, Kodak Primary Care Unavailable Jarrod, Lapman Attending Unavailable Jarrod, Lapman Referring Unavailable Muñoz, Kodak Primary Care Unavailable Angélica Dunn Attending Unavailable Muñoz, Kodak Referring Unavailable Kelly, [place] Attending Unavailable Muñoz, Kodak Referring Unavailable Muñoz, Kodak Primary Care Unavailable MasciLars Attending Unavailable Masci, Lars Referring Unavailable Muñoz, Kodak Primary Care Unavailable Kelly, Eddie Attending Unavailable Kelly, [place] Referring Unavailable Muñoz, Kodak Primary Care Unavailable Addison Loaiza Attending Unavailable Kelly, [place] Referring Unavailable Jarrod, Lapman Attending Unavailable Jarrod, Lapman Referring Unavailable Muñoz, Kodak Primary Care Unavailable Jarrod, Lapman Attending Unavailable Jarrod, Lapman Referring Unavailable Muñoz, Kodak Primary Care Unavailable Jarrod, Lapman Attending Unavailable Jarrod, Lapman Referring Unavailable Muñoz, Kodak Primary Care Unavailable Kelly, Eddie Attending Unavailable Kelly, [place] Referring Unavailable Muñoz, Kodak Primary Care Unavailable Jarrod, Lapman Attending Unavailable Jarrod, Lapman Referring Unavailable Muñoz, Kodak Primary Care Unavailable Jarrod, Lapman Attending Unavailable Jarrod, Lapman Referring Unavailable Muñoz, Kodak Primary Care Unavailable MonaAngélica Attending Unavailable Muñoz, Kodak Referring Unavailable Kelly, Eddie Attending Unavailable Kelly, [place] Referring Unavailable Muñoz, Kodak Primary Care Unavailable Jarrod, Lapman Attending Unavailable Jarrod, Lapman Referring Unavailable Muñoz, Kodak Primary Care Unavailable Jarrod, Lapman Attending Unavailable Jarrod, Lapman Referring Unavailable Muñoz, Kodak Primary Care Unavailable Kelly, [place] Attending Unavailable Kelly, Eddie Referring Unavailable Muñoz, Kodak Primary Care Unavailable Jarrod, Lapman Attending Unavailable Jarrod, Lapman Referring Unavailable Muñoz, Kodak Primary Care Unavailable Mona, Angélica Attending Unavailable Muñoz, Kodak Referring Unavailable MonaAngélica Attending Unavailable Muñoz, Kodak Referring Unavailable Kelly, Eddie Attending Unavailable Muñoz, Kodak Referring Unavailable Kelly, Eddie Attending Unavailable Kelly, [place] Referring Unavailable Muñoz, Kodak Primary Care Unavailable Elza SUERO Attending Unavailable IMCA Referring Unavailable Toni GUILLEN, Kodak Primary Care Unavailable HEMA GORMAN Admitting Unavailable HEMA GORMAN Attending Unavailable Toni GUILLEN, Kodak Primary Care Unavailable MELISSA MURRIETA () Consulting Unavailable PROBLEMS PROBLEMS DATE TYPE CONDITION / CODE ATTENDING STATUS SOURCE Unknown I48.0 - Paroxysmal atrial Kelly, Eddie Active [facility] fibrillation / Community I48.0(ICD-10) Hospital Repository Unknown I49.5 - Sick sinus Kelly, [place] Active [facility]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00(ICD-10) Repository Unknown 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, 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 of Community 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 / Hospital Z79.01(ICD-10) Repository Active 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) / [facility] Main K75.81(ICD-10) [place] Repository Active Unspecified cirrhosis of NA Active [facility] liver / K74.60(ICD-10) Clinic Main [place] Repository Active 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 / [place] E11.22(ICD-10) Repository Unknown R09.89 - Other specified [place] Loaiza Active [facility] 8 symptoms and signs Community involving the circulatory Hospital and respiratory systems / Repository R09.89(ICD-10) Active 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) / D50.0(ICD-10) [place] Repository Active Other hypotension / NA Active [facility] I95.89(ICD-10) Clinic Main [place] Repository Active Thrombocytopenia, NA Active [facility] unspecified / Clinic Main D69.6(ICD-10) [place] Repository Active Heart failure, NA Active [facility] unspecified / [facility] Main I50.9(ICD-10) [place] Repository Active Encounter for other NA Active [facility] preprocedural examination Clinic Main / Z01.818(ICD-10) [place] Repository Active 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[facility] without complications / Clinic Main E11.9(ICD-10) [place] Repository Active 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 Active [facility] 8 of insulin / Clinic Main Z79.4(ICD-10) [place] Repository Active Presence of cardiac NA Active [facility] 8 pacemaker / Z95.0(ICD-10) Clinic Main [place] Repository Active custodial (current) use NA Active [place] [address] of 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 / Clinic Main Z79.01(ICD-10) [place] Repository Active Hypothyroidism, CASSIDY FIERROER Active [place] [address] unspecified / Clinic Main E03.9(ICD-10) [place] Repository Active Chronic kidney disease, ARTHURDRAly AMER Active [facility] 8 stage 3 (moderate) / Clinic Main N18.3(ICD-10) [place] Repository Active Gastrointestinal KADRAly AMER Active [facility] 8 hemorrhage, unspecified / Clinic Main K92.2(ICD-10) [place] Repository Active Acute gastritis with NA Active [facility] 8 bleeding / K29.01(ICD-10) Clinic Main [place] Repository Active Other skilled nursing (current) NA Active [facility] 8 drug therapy / Clinic Main Z79.899(ICD-10) [place] Repository Unknown E78.0 - Pure Kelly, [place] Active [facility] 8 hypercholesterolemia / Community E78.0(ICD-10) Hospital Repository Active Iron deficiency anemia, NA Active [place] [address] unspecified / Clinic Main D50.9(ICD-10) [place] Repository Active Hepatomegaly, not NIMO, Active [place] [address] elsewhere classified / [facility] Other R16.0(ICD-10) [place] Repository Admitting Unknown / UNK(Unknown) Elza SUERO Active [facility] 8 diagnosis [facility] Repository Active Chronic kidney disease, NA Active [place] [address] unspecified / Clinic Main N18.9(ICD-10) [place] Repository Active Unknown / UNK(Unknown) NA Active [facility] 8 Clinic Main [place] Repository Active 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 Active [facility] 8 disease / D63.1(ICD-10) Clinic Main [place] Repository PROCEDURES PROCEDURES No Procedure Records FoundRESULTS RESULTS [place] ABS GR + CBC Collected: 09/05/2018 Status: F Source: [place] 8:30 AM [facility] REPOSITORY TYPE CODE TESTS RESULT OUT OF REFERENCE UNITS RANGE LAB WWBC 3.70-11.00 k/uL Low [facility] WBC 2.78 LAB WRBC 3.90-5.20 m/uL Low [facility] RBC 2.92 LAB WHGB 11.5-15.5 g/dL Low [facility] Hemoglobin 8.8 LAB WHCT 36.0-46.0 % Low [facility] Hematocrit 29.6 LAB WMCV 80.0-100.0 fL [facility] High MCV 101.4 LAB WMCH 26.0-34.0 pg [facility] MCH 30.1 LAB WMCHC 30.5-36.0 g/dL Low [facility] MCHC 29.7 LAB WRDW 11.5-15.0 % [facility] High RDW 16.0 LAB WPLT 150-400 k/uL Low [facility] Platelet Cnt 86 LAB WMPV 9.0-12.7 fL [place] MPV 11.8 Result Comment: Test performed at: [facility], [address] [place] [address] Rd., [place] [address]. LAB ABGRAN 1.45-7.50 k/uL Absol 2.18 Gran Count LAB ABSNUC <0.01 k/uL Absolute nRBC Result checked and verified PROTIME W/INR Collected: 08/30/2018 Status: F Source: [place] 9:45 AM [facility] REPOSITORY TYPE CODE TESTS RESULT OUT OF REFERENCE UNITS RANGE LAB L9200.1001 11.9-14.4 SEC High PROTIME ISTAT 21.5 Result Comment: Reference Range 11.9 - 14.4 LAB L9200.2000 Normal INR ISTAT 1.80 Result Comment: Critical Value > 3.5 Performed By: #### L9200.0000 #### [facility] Point of Care [address] [place] [address] [place] ABS GR + CBC Collected: 08/29/2018 Status: F Source: [place] 9:24 AM [facility] REPOSITORY TYPE CODE TESTS RESULT OUT OF REFERENCE UNITS RANGE LAB WWBC 3.70-11.00 k/uL Low [facility] WBC 3.05 LAB WRBC 3.90-5.20 m/uL Low [facility] RBC 2.95 LAB WHGB 11.5-15.5 g/dL Low [facility] Hemoglobin 8.9 LAB WHCT 36.0-46.0 % Low [facility] Hematocrit 29.7 LAB WMCV 80.0-100.0 fL [facility] High MCV 100.7 LAB WMCH 26.0-34.0 pg [facility] MCH 30.2 LAB WMCHC 30.5-36.0 g/dL Low [place] MCHC 30.0 Result Comment: Result checked and verified LAB WRDW 11.5-15.0 % High [facility] RDW 16.5 LAB WPLT 150-400 k/uL Low [facility] 88 Platelet Cnt LAB WMPV 9.0-12.7 fL [facility] MPV 10.1 Result Comment: Test performed at: [address] [place] [address]. LAB ABGRAN 1.45-7.50 k/uL Absol Gran 2.48 Count PROTHROMBIN TIME W/INR Collected: 08/26/2018 Status: F Source: [place] 10:49 AM [facility] REPOSITORY TYPE CODE TESTS RESULT OUT OF RANGE REFERENCE UNITS LAB L300.4150 11.7-14.9 SECONDS High PROTIME 31.5 LAB L300.4200 Normal INR 3.0 Performed By: #### L300.3900 #### [facility] [address] [place], [address] [place] ABS GR + CBC Collected: 08/22/2018 Status: F Source: [place] 9:09 AM [facility] REPOSITORY TYPE CODE TESTS RESULT OUT OF REFERENCE UNITS RANGE LAB WWBC 3.70-11.00 k/uL Low [place] WBC 3.21 LAB WRBC 3.90-5.20 m/uL Low [facility] RBC 3.06 LAB WHGB 11.5-15.5 g/dL Low [place] Hemoglobin 9.2 LAB WHCT 36.0-46.0 % Low [facility] Hematocrit 30.5 LAB WMCV 80.0-100.0 fL [facility] MCV 99.7 LAB WMCH 26.0-34.0 pg [facility] MCH 30.1 LAB WMCHC 30.5-36.0 g/dL Low [facility] MCHC 30.2 LAB WRDW 11.5-15.0 % [place] High RDW 16.1 LAB WPLT 150-400 k/uL Low [facility] Platelet Cnt 80 LAB WMPV 9.0-12.7 fL [place] MPV 12.1 Result Comment: Test performed at: [facility], [address] [place], [place] [address]n Rd., [place] [address]. LAB ABGRAN 1.45-7.50 k/uL Absol Gran 2.69 Count PACEMAKER CHECK Observed: 08/21/2018 Status: F Source: [place] 7:24 AM [facility] [address] [place] [address] Pacemaker Check Date of Service: 08/20/18 1256 MR#: [id number] Acct: [id number] Name: MISSYEMANI L Rep #: [id number] : 1940 From: Angélica Dunn Age/Sex: 77/F [place] [facility] [place] [facility] [place]: Signed Billing Codes Nurse, Teaching, Wound Ck (no charge): Yes 08/20/181258 <Electronically signed by Angélica Dunn > Date Angélica Dunn 08/21/18 0724<Electronically signed by Eddie Mendoza MD> Cosigner Signature: Date (if applicable) Eddie Mendoza MD CC: CHEST PA AND LATERAL Observed: 08/20/2018 Status: F Source: [place] 10:31 AM [facility] Imaging Services [address] [facility] [place] [address] Chest PA and Lateral MR#: [id number] Acct: [id number] Name: MISSYEMANI L Rep #: [id number] : 1940 F 77 From: Aneudy Hernandez MD PCP: Kodak Muñoz MD Status: PRE SCC Study: Chest PA and Lateral Date of Exam: 08/20/18 Exam# [id number] Ordering Dr: Eddie Mendoza MD STUDY: X-RAY [...] a chronic loculated pleural effusion. Electronically Signed: nAeudy Hernandez MD at 12:06 EST Tel , Service support , CC: Eddie Mendoza MD; Kodak Muñoz MD Socket Puller: Signed URINALYSIS, COMPLETE Collected: 08/20/2018 Status: F Source: [place] 10:19 AM [facility] REPOSITORY Order Comment: How was Urine Obtained? ARCHEOLOGY PROFESSOR TO SPECIFY TYPE CODE TESTS RESULT OUT [...] URINE SEEN Performed By: #### L400.0001 #### [facility] [address] [place], [place], [address] CBC-COMPLETE BLOOD CNT Collected: 08/20/2018 Status: F Source: [place] NO DIFF 10:19 AM [facility] REPOSITORY TYPE CODE TESTS RESULT OUT [...] MPV 11.8 Performed By: #### L100.0500 #### [facility] [address] [place], [place], [address] PROTHROMBIN TIME W/INR Collected: 08/20/2018 Status: F Source: [place] 10:19 AM [facility] REPOSITORY TYPE CODE TESTS RESULT OUT OF REFERENCE UNITS RANGE LAB L300.4150 11.7-14.9 SECONDS High PROTIME 37.0 LAB L300.4200 High alert INR 3.7 Result Comment: CRITICAL VALUE VERIFIED. CALLED TO [facility] 08/20/18 [address] RESULTS READ BACK BY SAME . Performed By: #### L300.3900 #### [facility] [address] [place], [address] BASIC METABOLIC Collected: 08/20/2018 Status: F Source: FREDERIC PROFILE (BMP) 10:19 AM [facility] REPOSITORY TYPE CODE TESTS RESULT OUT [...] GAP 4 Performed By: #### L500.2500 #### [facility] [address] [place], [address] CARDIOLOGY VISIT Observed: 08/20/2018 Status: F Source: FREDERIC REPORT 9:44 AM [facility] REPOSITORY [facility] [address] [place] [address] OFFICE VISIT Date of Service: 08/20/18 MR#: [id number] Acct: [id number] Name: EMANI LOUIS Rep #: [id number] : 1940 Provider: Eddie Mendoza MD Age/Sex: 77/F [place] [facility] [place]: Signed HPI HPI Chief Complaint: Preop [...] red blood cell transfusion and [facility]. She did apparently undergo a double [...] brachial Intake Visit Reasons: 4 M FU International Sourcing Manager Required: No Accompanied by: none Is patient [...] SC QHS 04/30/15 [History Confirmed 08/20/18] Tiotropium Concord [Spiriva 18 MCG] 2 puff INHALATION DAILY PRN 06/03/15 [History Confirmed 08/20/18] Cyanocobalamin (Vitamin B-12) [Vitamin B12] 2,500 mcg PO DAILY 06/10/16 [History Confirmed 08/20/18] Docusate Sodium [Colace] 200 mg PO BID PRN PRN 09/08/16 [History Confirmed 08/20/18] Fluticasone 0.05% [Flonase Nasal Roundup] 2 spray NASAL DAILY PRN 09/08/16 [History [...] PO .COMPLEX 04/25/18 [History Confirmed 08/20/18] [facility] Medical History Tachycardia-bradycardia syndrome (Chronic) Typical atrial flutter (Chronic) Hypotension (Chronic) Secondary pulmonary hypertension (Chronic) Carotid bruit (Chronic) COPD (chronic obstructive pulmonary disease) (Chronic) Paroxysmal atrial fibrillation (Chronic) Sick sinus syndrome (Chronic) custodial current use of anticoagulant (Chronic) Acquired thrombocytopenia [...] with mechanical valve Z95.2 [address] [employer] mechanical valve Plan She does have a [...] signed by Eddie Mendoza MD> Date Eddie Sesay Signature: Date (if applicable) CC: Kodak Muñoz MD PACEMAKER CHECK Observed: 08/19/2018 Status: F Source: FORBES 6:43 AM [facility] REPOSITORY [facility] [address] [place] [address]. [address] [place] [address] Pacemaker Check Date of Service: 08/16/181427 MR#: [id number] Acct: [id number] Name: EMANI LOUIS Rep #: [id number] : 1940 From: Angélica Dunn Age/Sex: 77/F [place] [facility] [place]: Signed Billing Codes PM Device Codes: PM Dev Prog Eval, Dual 08/16/181428 <Electronically signed by Angélica Dunn > Date Angélica Dunn 08/19/18 0643<Electronically signed by Eddie Mendoza MD> Yojanaigner Signature: Date (if applicable) Eddie Mendoza MD CC: PROTHROMBIN TIME W/INR Collected: 08/15/2018 Status: F Source: FORBES 2:27 PM [facility] REPOSITORY TYPE CODE TESTS RESULT OUT OF RANGE REFERENCE UNITS LAB L300.4150 11.7-14.9 SECONDS High PROTIME 28.0 LAB L300.4200 Normal INR 2.6 Performed By: #### L300.3900 #### [facility] [address] [place] [address]. [place], [address] IRON AND TIBC Collected: 08/15/2018 Status: F Source: BALDWIN 10:03 AM [facility] REPOSITORY TYPE CODE TESTS RESULT OUT OF REFERENCE UNITS RANGE LAB IRN 41-186 ug/dL Iron 49 LAB TIBC 232-386 ug/dL Low TIBC 224 LAB SAT 15-57 % Transferrin Saturatn 22 Performed By: #### IRON #### [facility] [address] [place], [place] [address] FREDERIC ABS GR + CBC Collected: 08/15/2018 Status: F Source: [place] 10:02 AM [facility] REPOSITORY TYPE CODE TESTS RESULT OUT OF REFERENCE UNITS RANGE LAB WWBC 3.70-11.00 k/uL Low [place] WBC 3.25 LAB WRBC 3.90-5.20 m/uL Low [place] RBC 3.34 LAB WHGB 11.5-15.5 g/dL Low [place] Hemoglobin 10.1 LAB WHCT 36.0-46.0 % Low [place] Hematocrit 33.3 LAB WMCV 80.0-100.0 fL [place] MCV 99.7 LAB WMCH 26.0-34.0 pg [place] MCH 30.2 LAB WMCHC 30.5-36.0 g/dL Low [place] MCHC 30.3 LAB WRDW 11.5-15.0 % [place] High RDW 16.9 LAB WPLT 150-400 k/uL Low [place] Platelet Cnt 67 LAB WMPV 9.0-12.7 fL [place] MPV 11.0 Result Comment: Test performed at: [facility], [address] [place] [address]. LAB ABGRAN 1.45-7.50 k/uL Absol Gran 2.65 Count FREDERIC ABS GR + CBC Collected: 08/08/2018 Status: F Source: [place] 9:29 AM [facility] REPOSITORY TYPE CODE TESTS RESULT OUT OF REFERENCE UNITS RANGE LAB WWBC 3.70-11.00 k/uL Low [place] WBC 3.32 LAB WRBC 3.90-5.20 m/uL Low [place] RBC 2.83 LAB WHGB 11.5-15.5 g/dL Low [place] Hemoglobin 8.6 LAB WHCT 36.0-46.0 % Low [place] Hematocrit 29.0 LAB WMCV 80.0-100.0 fL [place] High MCV 102.5 LAB WMCH 26.0-34.0 pg [place] MCH 30.4 LAB WMCHC 30.5-36.0 g/dL Low [place] MCHC 29.7 LAB WRDW 11.5-15.0 % [place] High RDW 18.0 LAB WPLT 150-400 k/uL Low [place] Platelet Cnt 85 LAB WMPV 9.0-12.7 fL [place] MPV 11.3 Result Comment: Test performed at: [facility], [address] [place] [address]. LAB ABGRAN 1.45-7.50 k/uL Absol 2.75 Gran Count LAB ABSNUC <0.01 k/uL Absolute nRBC Result checked and verified TYPE AND SCREEN Collected: 08/08/2018 Status: F Source: FORBES 9:25 AM [facility] REPOSITORY Order Comment: PRETRANSFUSION HGB = 8.6 HCT = 29.0 PERFORMED AT [facility] CMV NEG?* N Give When? 08/09/18 09:00 Irradiated? N Leukodepleted? Y Reason for Type AND Screen/Red Cells: ANEMIA TYPE CODE TESTS RESULT OUT OF RANGE REFERENCE UNITS LAB B10.0800 A Normal BLOOD TYPE GEL POSITIVE LAB B100.4000 Normal Antibody NEGATIVE Screen Performed By: #### B101.7450 #### [facility] [address] [place], [address] RC Collected: 08/08/2018 Status: F Source: FORBES 9:25 AM [facility] REPOSITORY TYPE CODE TESTS RESULT OUT OF REFERENCE UNITS RANGE LAB U100.0000 [id number] TRANSFUSED PRODUCT: T AND S with Crossmatch, Red Cells COUNT: 2 Performed By: #### U100.0000 #### [facility] - refer to report for specific site PROTHROMBIN TIME W/INR Collected: 08/01/2018 Status: F Source: FORBES 10:22 AM [facility] REPOSITORY TYPE CODE TESTS RESULT OUT OF RANGE REFERENCE UNITS LAB L300.4150 11.7-14.9 SECONDS High PROTIME 26.6 LAB L300.4200 Normal INR 2.4 Performed By: #### L300.3900 #### [facility] [address] [facility] [place], [address] FREDERIC ABS GR + CBC Collected: 08/01/2018 Status: F Source: [place] 9:18 AM [facility] REPOSITORY TYPE CODE TESTS RESULT OUT OF REFERENCE UNITS RANGE LAB WWBC 3.70-11.00 k/uL Low [place] WBC 3.04 LAB WRBC 3.90-5.20 m/uL Low [place] RBC 3.03 LAB WHGB 11.5-15.5 g/dL Low [place] Hemoglobin 9.1 LAB WHCT 36.0-46.0 % Low [place] Hematocrit 29.9 LAB WMCV 80.0-100.0 fL [place] MCV 98.7 LAB WMCH 26.0-34.0 pg [place] MCH 30.0 LAB WMCHC 30.5-36.0 g/dL Low [place] MCHC 30.4 LAB WRDW 11.5-15.0 % [place] High RDW 17.5 LAB WPLT 150-400 k/uL Low [place] Platelet Cnt 86 LAB WMPV 9.0-12.7 fL [place] MPV 10.9 Result Comment: Test performed at: [facility] [place] [address] [place] [address] Rd[address] [place] [address]. LAB ABGRAN 1.45-7.50 k/uL Absol Gran 2.49 Count FORBES ABS GR + CBC Collected: 07/25/2018 Status: F Source: [place] 8:32 AM [facility] REPOSITORY TYPE CODE TESTS RESULT OUT OF REFERENCE UNITS RANGE LAB WWBC 3.70-11.00 k/uL Low [place] WBC 3.15 LAB WRBC 3.90-5.20 m/uL Low [place] RBC 2.75 LAB WHGB 11.5-15.5 g/dL Low [place] Hemoglobin 8.1 LAB WHCT 36.0-46.0 % Low [place] Hematocrit 27.0 LAB WMCV 80.0-100.0 fL [place] MCV 98.2 LAB WMCH 26.0-34.0 pg [place] MCH 29.5 LAB WMCHC 30.5-36.0 g/dL Low [place] MCHC 30.0 Result Comment: Result checked and verified LAB WRDW 11.5-15.0 % High [place] RDW 18.0 LAB WPLT 150-400 k/uL Low [place] 68 Platelet Cnt LAB WMPV 9.0-12.7 fL [place] MPV 11.9 Result Comment: Test performed at: [facility], [address] [place] [address]. LAB ABGRAN 1.45-7.50 k/uL Absol Gran 2.50 Count TYPE AND SCREEN Collected: 07/25/2018 Status: F Source: FORBES 8:20 AM [facility] REPOSITORY Order Comment: PRETRANSFUSION HGB = 8.1 HCT = 27.0 PERFORMED AT [facility] CMV NEG?* N Give When? 07/26/18 0900 Irradiated? N Leukodepleted? Y Reason for Type AND Screen/Red Cells: ANEMIA TYPE CODE TESTS RESULT OUT OF RANGE REFERENCE UNITS LAB B10.0800 A Normal BLOOD TYPE GEL POSITIVE LAB B100.4000 Normal Antibody NEGATIVE Screen Performed By: #### B101.7450 #### [facility] [address] [place], [address] Collected: 07/25/2018 Status: F Source: FORBES 8:20 AM [facility] REPOSITORY TYPE CODE TESTS RESULT OUT OF REFERENCE UNITS RANGE LAB U100.0000 [id number] TRANSFUSED PRODUCT: T AND S with Crossmatch, Red Cells COUNT: 2 Performed By: #### U100.0000 #### [facility] - refer to report for specific site PROTHROMBIN TIME W/INR Collected: 07/22/2018 Status: F Source: FORBES 11:47 AM [facility] REPOSITORY TYPE CODE TESTS RESULT OUT OF RANGE REFERENCE UNITS LAB L300.4150 11.7-14.9 SECONDS High PROTIME 32.0 LAB L300.4200 Normal INR 3.1 Performed By: #### L300.3900 #### [facility] [address] [place], [address] FREDERIC ABS GR + CBC Collected: 07/18/2018 Status: F Source: BALDW[place] 8:06 AM [facility] REPOSITORY TYPE CODE TESTS RESULT OUT OF REFERENCE UNITS RANGE LAB WWBC 3.70-11.00 k/uL [place] WBC 4.09 LAB WRBC 3.90-5.20 m/uL Low [place] RBC 2.73 LAB WHGB 11.5-15.5 g/dL Low [place] Hemoglobin 8.0 LAB WHCT 36.0-46.0 % Low [place] Hematocrit 26.6 LAB WMCV 80.0-100.0 fL [place] MCV 97.4 LAB WMCH 26.0-34.0 pg [place] MCH 29.3 LAB WMCHC 30.5-36.0 g/dL Low [place] MCHC 30.1 LAB WRDW 11.5-15.0 % [place] High RDW 19.0 LAB WPLT 150-400 k/uL Low [place] Platelet Cnt 122 LAB WMPV 9.0-12.7 fL [place] MPV 10.9 Result Comment: Test performed at: [facility], [address] [place] [address]. LAB ABGRAN 1.45-7.50 k/uL Absol Gran 3.39 Count TYPE AND SCREEN Collected: 07/18/2018 Status: F Source: FORBES 8:06 AM [facility] REPOSITORY Order Comment: PRETRANSFUSION HGB = 8.0 HCT = 26.6 PERFORMED AT [facility] CMV NEG?* N Give When? 07/19/18 @ 0830 Irradiated? N Leukodepleted? Y Reason for Type AND Screen/Red Cells: ANEMIA TYPE CODE TESTS RESULT OUT OF RANGE REFERENCE UNITS LAB B10.0800 A Normal BLOOD TYPE GEL POSITIVE LAB B100.4000 Normal Antibody NEGATIVE Screen Performed By: #### B101.7450 #### [facility] [address] [place], [address] Collected: 07/18/2018 Status: F Source: FORBES 8:06 AM [facility] REPOSITORY TYPE CODE TESTS RESULT OUT OF REFERENCE UNITS RANGE LAB U100.0000 [id number] TRANSFUSED PRODUCT: T AND S with Crossmatch, Red Cells COUNT: 2 Performed By: #### U100.0000 #### [facility] - refer to report for specific site FORBES ABS GR + CBC Collected: 07/11/2018 Status: F Source: [place] 10:15 AM [facility] REPOSITORY TYPE CODE TESTS RESULT OUT OF REFERENCE UNITS RANGE LAB WWBC 3.70-11.00 k/uL [place] WBC 4.00 LAB WRBC 3.90-5.20 m/uL Low [place] RBC 3.36 LAB WHGB 11.5-15.5 g/dL Low [place] Hemoglobin 9.6 LAB WHCT 36.0-46.0 % Low [place] Hematocrit 31.6 LAB WMCV 80.0-100.0 fL [place] MCV 94.0 LAB WMCH 26.0-34.0 pg [place] MCH 28.6 LAB WMCHC 30.5-36.0 g/dL Low [place] MCHC 30.4 LAB WRDW 11.5-15.0 % [place] High RDW 16.8 LAB WPLT 150-400 k/uL Low [place] Platelet Cnt 110 LAB WMPV 9.0-12.7 fL [place] MPV 11.2 Result Comment: Test performed at: [facility] [place], [address] [place] [address]. LAB ABGRAN 1.45-7.50 k/uL Absol Gran 3.45 Count PROTHROMBIN TIME W/INR Collected: 07/08/2018 Status: F Source: FORBES 10:48 AM [facility] REPOSITORY TYPE CODE TESTS RESULT OUT OF RANGE REFERENCE UNITS LAB L300.4150 11.7-14.9 SECONDS High PROTIME 30.6 LAB L300.4200 Normal INR 2.9 Performed By: #### L300.3900 #### [facility] [address] [place], [address] FREDERIC ABS GR + CBC Collected: 07/05/2018 Status: F Source: [place] 9:44 AM [facility] REPOSITORY TYPE CODE TESTS RESULT OUT OF REFERENCE UNITS RANGE LAB WWBC 3.70-11.00 k/uL [place] WBC 5.04 LAB WRBC 3.90-5.20 m/uL Low [place] RBC 2.76 LAB WHGB 11.5-15.5 g/dL Low [place] Hemoglobin 8.0 LAB WHCT 36.0-46.0 % Low [place] Hematocrit 26.8 LAB WMCV 80.0-100.0 fL [place] MCV 97.1 LAB WMCH 26.0-34.0 pg [place] MCH 29.0 LAB WMCHC 30.5-36.0 g/dL Low [place] MCHC 29.9 Result Comment: Result checked and verified LAB WRDW 11.5-15.0 % High [place] RDW 16.1 LAB WPLT 150-400 k/uL Low [place] 100 Platelet Cnt LAB WMPV 9.0-12.7 fL [place] MPV 11.2 Result Comment: Test performed at: [facility], [address] [place] [address]. LAB ABGRAN 1.45-7.50 k/uL Absol Gran 4.25 Count TYPE AND SCREEN Collected: 07/05/2018 Status: F Source: FORBES 9:40 AM [facility] REPOSITORY Order Comment: PRETRANSFUSION HGB = 8 HCT = 26.8 PERFORMED AT [facility] CMV NEG?* N Give When? 07/06 @0900 Irradiated? N Leukodepleted? Y Reason for Type AND Screen/Red Cells: ANEMIA TYPE CODE TESTS RESULT OUT OF RANGE REFERENCE UNITS LAB B10.0800 A Normal BLOOD TYPE GEL POSITIVE LAB B100.4000 Normal Antibody NEGATIVE Screen Performed By: #### B101.7450 #### [facility] [address] [place], [address] RC Collected: 07/05/2018 Status: F Source: FREDERIC 9:40 AM [facility] REPOSITORY TYPE CODE TESTS RESULT OUT OF REFERENCE UNITS RANGE LAB U100.0000 [id number] TRANSFUSED PRODUCT: T AND S with Crossmatch, Red Cells COUNT: 2 Performed By: #### U100.0000 #### [facility] - refer to report for specific site PROTHROMBIN TIME W/INR Collected: 07/01/2018 Status: F Source: FORBES 10:25 AM [facility] REPOSITORY TYPE CODE TESTS RESULT OUT OF REFERENCE UNITS RANGE LAB L300.4150 11.7-14.9 SECONDS High PROTIME 35.0 LAB L300.4200 High alert INR 3.5 Result Comment: CRITICAL VALUE VERIFIED. CALLED TO ZIYAD AT 'S OFFICE. 07/01/18 1156 [address] Mann. RESULTS READ BACK BY SAME. Performed By: #### L300.3900 #### [facility] [address] [place], [address] CNOVSP Observed: 06/27/2018 Status: COMPLETED Source: [place] 9:50 AM [facility] REPOSITORY Visit (SP) Office (HEMBELINDA) EMANI LOUIS ([id number]) 1940 F Date Time Provider Department 06/27/18 9:50 AM YARA GARAY During your visit today, we recorded the following information about you: Temperature Pulse Blood pressure Weight 97.8 degrees 106/minute 52/33 60.8 kg Yara Garay MD 06/27/2018 4:44 PM Signed PATIENT NAME: Emani Louis. CLINIC NO: [id number]. ATTENDING PHYSICIAN: Yara Garay MD. DATE OF [...] Latest Ref Rng AND Units 06/27/2018 WBC, [place] 3.70 - 11.00 k/uL 3.62 (L) RBC, [place] 3.90 - 5.20 m/uL 3.08 (L) Hemoglobin, [place] 11.5 - 15.5 g/dL 9.1 (L) Hematocrit, [place] 36.0 - 46.0 % 29.8 (L) MCV, [place] 80.0 - 100.0 fL 96.8 MCH, [place] 26.0 - 34.0 pg 29.5 MCHC, [place] 30.5 - 36.0 g/dL 30.5 RDW, [place] 11.5 - 15.0 % 16.3 (H) Platelet Cnt, [place] 150 - 400 k/uL 81 (L) MPV, [place] 9.0 - 12.7 fL 11.3 Absol Gran [...] ? Yara Garay MD. Cc: Dr. Eddie Reyse LPN 06/27/2018 9:33 AM Signed Aranesp injection administered right arm, tolerated well, no immediate adverse reactions noted. Celia Garay MD 06/28/2018 8:53 AM Signed Addended by: YARA GARAY MD on: 06/28/2018 08:53 AM Modules accepted: Orders Referring Provider: YARA GARAY [[id number]] Allergies As of Date: 06/27/2018 Noted Allergy Reaction AMBIEN (ZOLPIDEM TARTRATE) 09/06/2005 16 - Unknown ATIVAN (LORAZEPAM) 09/06/2005 14 - Other: See Comments Comments: just didn't work MOBIC (MELOXICAM) 09/06/2005 16 - Unknown PAMELOR (NORTRIPTYLINE HCL) 09/06/2005 16 - Unknown Date Reviewed: 06/27/2018 Reviewed by: aKndy Garcia - Fully Assessed Reason for Visit: Established Patient [175] Primary Visit Diagnosis:Anemia in chronic kidney disease, unspecified CKD stage [N18.9, D63.1] Other Visit Diagnoses:Chronic kidney disease, stage III (moderate) (HCC) [N18.3] Thrombocytopenia (HCC) [D69.6] 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 Celia Reyes LPN Encounter Status:Closed by YARA GARAY MD on 06/27/18 PROGRESS Observed: 06/27/2018 Status: COMPLETED Source: [place]DWIN 8:55 AM [facility] REPOSITORY [facility] ID: [id number] Author: Yara Garay Service: (none) Author Type: Physician Type: Progress Notes Filed: 06/27/2018 4:44 PM Note Text: PATIENT NAME: Emani Louis. CLINIC NO: [id number]. ATTENDING PHYSICIAN: Yara Garay MD. DATE OF [...] Latest Ref Rng AND Units 06/27/2018 WBC, [place] 3.70 - 11.00 k/uL 3.62 (L) RBC, [place] 3.90 - 5.20 m/uL 3.08 (L) Hemoglobin, [place] 11.5 - 15.5 g/dL 9.1 (L) Hematocrit, [place] 36.0 - 46.0 % 29.8 (L) MCV, [place] 80.0 - 100.0 fL 96.8 MCH, [place] 26.0 - 34.0 pg 29.5 MCHC, [place] 30.5 - 36.0 g/dL 30.5 RDW, [place] 11.5 - 15.0 % 16.3 (H) Platelet Cnt, [place] 150 - 400 k/uL 81 (L) MPV, [place] 9.0 - 12.7 fL 11.3 Absol Gran [...] + CBC Collected: 06/27/2018 Status: F Source: [place] 8:52 AM [facility] REPOSITORY TYPE CODE TESTS RESULT OUT OF REFERENCE UNITS RANGE LAB WWBC 3.70-11.00 k/uL Low [place] WBC 3.62 LAB WRBC 3.90-5.20 m/uL Low [place] RBC 3.08 LAB WHGB 11.5-15.5 g/dL Low [place] Hemoglobin 9.1 LAB WHCT 36.0-46.0 % Low [place] Hematocrit 29.8 LAB WMCV 80.0-100.0 fL [place] MCV 96.8 LAB WMCH 26.0-34.0 pg [place] MCH 29.5 LAB WMCHC 30.5-36.0 g/dL [place] MCHC 30.5 LAB WRDW 11.5-15.0 % [place] High RDW 16.3 LAB WPLT 150-400 k/uL Low [place] Platelet Cnt 81 LAB WMPV 9.0-12.7 fL [place] MPV 11.3 Result Comment: Test performed at: [facility] [address] [place] [address]. LAB ABGRAN 1.45-7.50 k/uL Absol Gran 3.02 Count COMP METABOLIC PANEL Collected: 06/27/2018 Status: F Source: [place] 8:52 AM [facility] REPOSITORY TYPE CODE TESTS RESULT OUT [...] GFR. AFP Collected: 06/27/2018 Status: F Source: [place] 8:52 AM [facility] REPOSITORY TYPE CODE TESTS RESULT OUT OF RANGE REFERENCE UNITS LAB AFP <11 ng/mL AFP <3.0 Result Comment: Result rechecked. Performed By: #### AFP #### [facility] [address] [place], [place] [address] IRON AND TIBC Collected: 06/27/2018 Status: F Source: [place] 8:51 AM [facility] REPOSITORY TYPE CODE TESTS RESULT OUT OF REFERENCE UNITS RANGE LAB IRN 41-186 ug/dL Iron 44 LAB TIBC 232-386 ug/dL TIBC 265 LAB SAT 15-57 % Transferrin Saturatn 17 Performed By: #### IRON, FERR #### [facility] [address] [place] [id number] FERRITIN Collected: 06/27/2018 Status: F Source: [place] 8:51 AM [facility] REPOSITORY TYPE CODE TESTS RESULT OUT OF REFERENCE UNITS RANGE LAB FERR 14.7-205.1 ng/mL Ferritin 103.6 Performed By: #### IRON, FERR #### [facility] [address] [place] [id number] PROTHROMBIN TIME W/INR Collected: 06/20/2018 Status: F Source: FORBES 11:10 AM [facility] REPOSITORY TYPE CODE TESTS RESULT OUT OF RANGE REFERENCE UNITS LAB L300.4150 11.7-14.9 SECONDS High PROTIME 34.7 LAB L300.4200 Normal INR 3.4 Performed By: #### L300.3900 #### [facility] [address] [place], [place], [id number] FREDERIC ABS GR + CBC Collected: 06/20/2018 Status: F Source: [place] 9:25 AM [facility] REPOSITORY TYPE CODE TESTS RESULT OUT OF REFERENCE UNITS RANGE LAB WWBC 3.70-11.00 k/uL Low [place] WBC 3.34 LAB WRBC 3.90-5.20 m/uL Low [place] RBC 2.63 LAB WHGB 11.5-15.5 g/dL Low [place] Hemoglobin 7.8 LAB WHCT 36.0-46.0 % Low [place] Hematocrit 25.6 LAB WMCV 80.0-100.0 fL [place] MCV 97.3 LAB WMCH 26.0-34.0 pg [place] MCH 29.7 LAB WMCHC 30.5-36.0 g/dL [place] MCHC 30.5 LAB WRDW 11.5-15.0 % [place] High RDW 16.5 LAB WPLT 150-400 k/uL Low [place] Platelet Cnt 97 LAB WMPV 9.0-12.7 fL [place] MPV 11.3 Result Comment: Test performed at: [facility] [place], [address] [place] [address]. LAB ABGRAN 1.45-7.50 k/uL Absol Gran 2.86 Count TYPE AND SCREEN Collected: 06/20/2018 Status: F Source: FORBES 9:23 AM [facility] REPOSITORY Order Comment: TO BE GIVEN 06/21/18 @ 0900 PRETRANSFUSION HGB = 7.8 HCT = 25.6 PERFORMED AT [facility] CMV NEG?* N Give When? 06/21/18 @ 0900 Irradiated? N Leukodepleted? Y Reason for Type AND Screen/Red Cells: ANEMIA TYPE CODE TESTS RESULT OUT OF RANGE REFERENCE UNITS LAB B10.0800 A Normal BLOOD TYPE GEL POSITIVE LAB B100.4000 Normal Antibody NEGATIVE Screen Performed By: #### B101.7450 #### [facility] [address] [place], [address] Collected: 06/20/2018 Status: F Source: FORB[place] 9:23 AM [facility] REPOSITORY TYPE CODE TESTS RESULT OUT OF REFERENCE UNITS RANGE LAB U100.0000 [id number] TRANSFUSED PRODUCT: T AND S with Crossmatch, Red Cells COUNT: 2 Performed By: #### U100.0000 #### [facility] - refer to report for specific site FORBES ABS GR + CBC Collected: 06/13/2018 Status: F Source: [place] 9:06 AM [facility] REPOSITORY TYPE CODE TESTS RESULT OUT OF REFERENCE UNITS RANGE LAB WWBC 3.70-11.00 k/uL Low [place] WBC 2.96 LAB WRBC 3.90-5.20 m/uL Low [place] RBC 3.19 LAB WHGB 11.5-15.5 g/dL Low [place] Hemoglobin 9.4 LAB WHCT 36.0-46.0 % Low [place] Hematocrit 30.1 LAB WMCV 80.0-100.0 fL [place] MCV 94.4 LAB WMCH 26.0-34.0 pg [place] MCH 29.5 LAB WMCHC 30.5-36.0 g/dL [place] MCHC 31.2 LAB WRDW 11.5-15.0 % [place] High RDW 15.3 LAB WPLT 150-400 k/uL Low [place] Platelet Cnt 88 LAB WMPV 9.0-12.7 fL [place] MPV 11.6 Result Comment: Test performed at: [facility], [address] [place] [address]. LAB ABGRAN 1.45-7.50 k/uL Absol Gran 2.35 Count FREDERIC ABS GR + CBC Collected: 06/06/2018 Status: F Source: [place] 9:39 AM [facility] REPOSITORY TYPE CODE TESTS RESULT OUT OF REFERENCE UNITS RANGE LAB WWBC 3.70-11.00 k/uL Low [place] WBC 3.27 LAB WRBC 3.90-5.20 m/uL Low [place] RBC 3.39 LAB WHGB 11.5-15.5 g/dL Low [place] Hemoglobin 10.1 LAB WHCT 36.0-46.0 % Low [facility]eric Hematocrit 32.6 LAB WMCV 80.0-100.0 fL [facility] MCV 96.2 LAB WMCH 26.0-34.0 pg [place] MCH 29.8 LAB WMCHC 30.5-36.0 g/dL [place] MCHC 31.0 LAB WRDW 11.5-15.0 % [place] High RDW 16.0 LAB WPLT 150-400 k/uL Low [place] Platelet Cnt 73 LAB WMPV 9.0-12.7 fL Frederic MPV 11.7 Result Comment: Test performed at: [facility], [address] [place] [address]. LAB ABGRAN 1.45-7.50 k/uL Absol Gran 2.69 Count PACEMAKER CHECK Observed: 06/04/2018 Status: F Source: [place] 8:12 AM [facility] REPOSITORY [facility] [address] [place] [address] Pacemaker Check Date of Service: 06/03/18 1047 MR#: [id number] Acct: [id number] Name: EMANI LOUIS Rosa Rep #: [id number] : 1940 From: Angélica Dunn Age/Sex: 77/F Location: [facility] Status: Signed Billing Codes PM Device Codes: PM Dev Prog Danna, Dual 06/03/18 1140 <Electronically signed by Angélica Dunn > Date Angélica Dunn 06/04/18 0812<Electronically signed by Peace MCDOWELL> Cosigner Signature: Date (if applicable) Peace Gibson CC: Eddie Mendoza MD PROTHROMBIN TIME W/INR Collected: 05/30/2018 Status: F Source: [place] 12:22 PM [facility] REPOSITORY TYPE CODE TESTS RESULT OUT OF RANGE REFERENCE UNITS LAB L300.4150 11.7-14.9 SECONDS High PROTIME 33.1 LAB L300.4200 Normal INR 3.2 Performed By: #### L300.3900 #### [facility] [address], [place], [address] [place] ABS GR + CBC Collected: 05/30/2018 Status: F Source: [place] 8:36 AM [facility] REPOSITORY TYPE CODE TESTS RESULT OUT OF REFERENCE UNITS RANGE LAB WWBC 3.70-11.00 k/uL Low [place] WBC 2.77 LAB WRBC 3.90-5.20 m/uL Low [place] RBC 2.79 LAB WHGB 11.5-15.5 g/dL Low [place] Hemoglobin 8.4 LAB WHCT 36.0-46.0 % Low [place] Hematocrit 27.9 LAB WMCV 80.0-100.0 fL [place] MCV 100.0 LAB WMCH 26.0-34.0 pg [place] MCH 30.1 LAB WMCHC 30.5-36.0 g/dL Low [place] MCHC 30.1 LAB WRDW 11.5-15.0 % [place] High RDW 16.4 LAB WPLT 150-400 k/uL Low [place] Platelet Cnt 87 LAB WMPV 9.0-12.7 fL [place] MPV 11.4 Result Comment: Test performed at: [facility] [place], [address] [place] [address]. LAB ABGRAN 1.45-7.50 k/uL Absol Gran 2.23 Count TYPE AND SCREEN Collected: 05/30/2018 Status: F Source: [place] 8:33 AM [facility] REPOSITORY Order Comment: PRETRANSFUSION HGB = 8.4 HCT = PERFORMED AT [facility] CMV NEG?* N Give When? 05/31/18 @0830 Irradiated? N Leukodepleted? Y Reason for Type AND Screen/Red Cells: ANEMIA TYPE CODE TESTS RESULT OUT OF RANGE REFERENCE UNITS LAB B10.0800 A Normal BLOOD TYPE GEL POSITIVE LAB B100.4000 Normal Antibody NEGATIVE Screen Performed By: #### B101.7450 #### [facility] [address] [place], [address] Collected: 05/30/2018 Status: F Source: [place] 8:33 AM [facility] REPOSITORY TYPE CODE TESTS RESULT OUT OF REFERENCE UNITS RANGE LAB U100.0000 [id number] TRANSFUSED PRODUCT: T AND S with Crossmatch, Red Cells COUNT: 2 Performed By: #### U100.0000 #### [facility] - refer to report for specific site [place] ABS GR + CBC Collected: 05/23/2018 Status: F Source: [place] 9:19 AM [facility] REPOSITORY TYPE CODE TESTS RESULT OUT OF REFERENCE UNITS RANGE LAB WWBC 3.70-11.00 k/uL Low [place] WBC 3.38 LAB WRBC 3.90-5.20 m/uL Low [place] RBC 3.11 LAB WHGB 11.5-15.5 g/dL Low [place] Hemoglobin 9.4 LAB WHCT 36.0-46.0 % Low [place] Hematocrit 30.7 LAB WMCV 80.0-100.0 fL [place] MCV 98.7 LAB WMCH 26.0-34.0 pg [place] MCH 30.2 LAB WMCHC 30.5-36.0 g/dL [place] MCHC 30.6 LAB WRDW 11.5-15.0 % [place] High RDW 16.3 LAB WPLT 150-400 k/uL Low [place] Platelet Cnt 79 LAB WMPV 9.0-12.7 fL [place] MPV 11.0 Result Comment: Test performed at: [facility], [address] [place] [address]. LAB ABGRAN 1.45-7.50 k/uL Absol Gran 2.73 Count PROTHROMBIN TIME W/INR Collected: 05/16/2018 Status: F Source: [place] 10:46 AM [facility] REPOSITORY TYPE CODE TESTS RESULT OUT OF RANGE REFERENCE UNITS LAB L300.4150 11.7-14.9 SECONDS High PROTIME 33.2 LAB L300.4200 Normal INR 3.2 Performed By: #### L300.3900 #### [facility] [address] [place], [address] [place] ABS GR + CBC Collected: 05/16/2018 Status: F Source: [place] 9:20 AM [facility] REPOSITORY TYPE CODE TESTS RESULT OUT OF REFERENCE UNITS RANGE LAB WWBC 3.70-11.00 k/uL Low [place] WBC 3.47 LAB WRBC 3.90-5.20 m/uL Low [place] RBC 2.55 LAB WHGB 11.5-15.5 g/dL Low [place] Hemoglobin 7.7 LAB WHCT 36.0-46.0 % Low [place] Hematocrit 25.6 LAB WMCV 80.0-100.0 fL [place] High MCV 100.4 LAB WMCH 26.0-34.0 pg [place] MCH 30.2 LAB WMCHC 30.5-36.0 g/dL Low [place] MCHC 30.1 LAB WRDW 11.5-15.0 % [place] High RDW 17.4 LAB WPLT 150-400 k/uL Low [place] Platelet Cnt 98 LAB WMPV 9.0-12.7 fL [place] MPV 11.1 Result Comment: Test performed at: [facility], [address] [place] [address]. LAB ABGRAN 1.45-7.50 k/uL Absol Gran 2.92 Count TYPE AND SCREEN Collected: 05/16/2018 Status: F Source: [place] 9:08 AM [facility] REPOSITORY Order Comment: PRETRANSFUSION HGB = 7.7 HCT = 25.6 PERFORMED AT [facility] CMV NEG?* N Give When? 05/17 AT 9AM Irradiated? N Leukodepleted? Y Reason for Type AND Screen/Red Cells: HEMORRHAGE, GI BLEED TYPE CODE TESTS RESULT OUT OF RANGE REFERENCE UNITS LAB B10.0800 A Normal BLOOD TYPE GEL POSITIVE LAB B100.4000 Normal Antibody NEGATIVE Screen Performed By: #### B101.7450 #### [facility] [address] [place], [address] Collected: 05/16/2018 Status: F Source: [place] 9:08 AM [facility] REPOSITORY TYPE CODE TESTS RESULT OUT OF REFERENCE UNITS RANGE LAB U100.0000 [id number] TRANSFUSED PRODUCT: T AND S with Crossmatch, Red Cells COUNT: 2 Performed By: #### U100.0000 #### [facility] - refer to report for specific site [place] ABS GR + CBC Collected: 05/09/2018 Status: F Source: [place] 8:25 AM [facility] REPOSITORY TYPE CODE TESTS RESULT OUT OF REFERENCE UNITS RANGE LAB WWBC 3.70-11.00 k/uL Low [place] WBC 3.20 LAB WRBC 3.90-5.20 m/uL Low [place] RBC 2.93 LAB WHGB 11.5-15.5 g/dL Low [place] Hemoglobin 8.9 LAB WHCT 36.0-46.0 % Low [place] Hematocrit 28.8 LAB WMCV 80.0-100.0 fL [place] MCV 98.3 LAB WMCH 26.0-34.0 pg [place] MCH 30.4 LAB WMCHC 30.5-36.0 g/dL [place] MCHC 30.9 LAB WRDW 11.5-15.0 % [place] High RDW 16.1 LAB WPLT 150-400 k/uL Low [place] Platelet Cnt 75 LAB WMPV 9.0-12.7 fL [place] MPV 11.2 Result Comment: Test performed at: [facility] [place], [address] [place] [address]. LAB ABGRAN 1.45-7.50 k/uL Absol Gran 2.72 Count BASIC METABOLIC PANL Collected: 05/09/2018 Status: F Source: [place] 8:25 AM [facility] REPOSITORY TYPE CODE TESTS RESULT OUT OF REFERENCE UNITS RANGE LAB GLU 74-99 mg/dL High Glucose 154 Result Comment: The [place] Diabetes Association (ADA) provides guidance for cutoff [...] Standards of Medical Care in Diabetes 2016, [place] [employer]. Diabetes Care. 2016.39(Suppl 1). LAB [...] GFR. Performed By: #### BMP, TSH #### [facility] [address] [place], [place] [address] TSH Collected: 05/09/2018 Status: F Source: [place] 8:25 AM [facility] REPOSITORY TYPE CODE TESTS RESULT OUT OF RANGE REFERENCE UNITS LAB TSH 0.400-5.500 uU/mL TSH 4.360 Performed By: #### BMP, TSH #### [facility] [address] [place], [place] [address] PROGRESS Observed: 05/07/2018 Status: COMPLETED Source: [place] 10:27 AM [facility] REPOSITORY HNO ID: [id number] Author: Kodak Muñoz Service: (none) Author Type: Physician Type: Progress Notes Filed: 05/07/2018 10:38 AM Note Text: This note was created using Inquisitive Systemsriter. Subjective Emani Louis is a 77 year [...] stage 3 chronic kidney disease, unspecified whether skilled nursing insulin use (HCC) - ICD9: 250.40, 585.3, [...] MD CNOV Observed: 05/07/2018 Status: COMPLETED Source: [place] 9:20 AM [facility] REPOSITORY Office Visit (INTMWS) EMANI LOUIS ([id number]) 1940 F Date Time Provider Department 05/07/18 9:20 AM KODAK MUÑOZ INTMWS During your visit today, we recorded the following information about you: Temperature Pulse Respiration Blood pressure 96.6 degrees 108/minute 24/minute 66/42 Weight 60.3 kg Marta Baker Anjali LPN 05/07/2018 9:42 AM Signed Influenza Vaccine Documentation: [...] the patient have a history of Guillain ?[place] Syndrome (a severe paralytic illness): No ? [...] provided: Yes ? See Immunization Form in [facility] for details of immunizations administered today. If patient reports dizziness, vision changes or ringing in the ears post vaccination ? please have patient sit or lie down for 15 minutes. Kodak Muñoz MD 05/07/2018 10:38 AM Signed This note was created using Inquisitive Systemsriter. Subjective Emani Louis is a 77 year [...] 2) (Hcc) Chf (Congestive Heart Failure) (Formerly [facility]) Chronic Hypotension Current Outpatient Prescriptions: ferrous sulfate [...] Chronic obstructive pulmonary disease, unspecified COPD type ([facility]) - ICD9: 496, ICD10: J44.9 Stable. 6. Chronic kidney disease, stage III (moderate) ([facility]) - ICD9: 585.3, ICD10: N18.3 Recheck. - BASIC METABOLIC PNL 7. Anemia in stage 3 chronic kidney disease (HCC) - ICD9: 285.21, 585.3, ICD10: N18.3, D63.1 Transfusion dependent. Managed per hematology. Kodak Muñoz MD Referring Provider: KODAK MUÑOZ [[id number]] Allergies As of Date: 05/07/2018 Noted Allergy [...] (HCC) [N18.3, D63.1] Order(s):ADMIN OF INFLUENZA VACCINE [A3265IRC] Order #: [id number]: 1 INFLUENZA SEASONAL HIGH DOSE AGE 65+ [[id number]] Order #: [id number] ferrous sulfate 325 mg (65 mg iron) EC tabletTakes 1.5 tablets twice daily.Disp: Rfl: BASIC METABOLIC PNL [SQBMP] Order #: [id number] FUTURE TSH BLD [SQTSH] Order #: [id number] FUTURE Prescriptions as of 05/07/2018 Sig: FERROUS [...] UNIT/ML (3 ML) SUBCUTANEOUS PEN >> Marta Alab LPN 05/07/2018 9:25 AM >> MARTA ALBA LPN SunMay 07, 2018 9:25 AM Patient waiting until blood sugar is over 200 before taking. ACCU-CHEK GUIDE STRIPS >> Marta Alba LPN 05/07/2018 9:22 AM >> MARTA ALBA LPN SunMay 07, 2018 9:22 AM Patient testing blood [...] [E1*INVALID FOR* More... CHF (congestive heart failure) ([facility]) [I50.9] INVALID FOR* More... Chronic hypotension [I95.89] [...] the patient have a history of Guillain ?[place] Syndrome (a severe paralytic illness): No ? [...] provided: Yes ? See Immunization Form in [facility] for details of immunizations administered today. If [...] TIME W/INR Collected: 05/03/2018 Status: F Source: [place] 7:49 AM [facility] REPOSITORY TYPE CODE TESTS RESULT OUT OF RANGE REFERENCE UNITS LAB L300.4150 11.7-14.9 SECONDS High PROTIME 26.5 LAB L300.4200 Normal INR 2.4 Performed By: #### L300.3900 #### [facility] [address] [place], [address] [place] ABS GR + CBC Collected: 05/02/2018 Status: F Source: [place] 9:19 AM [facility] REPOSITORY TYPE CODE TESTS RESULT OUT OF REFERENCE UNITS RANGE LAB WWBC 3.70-11.00 k/uL Low [place] WBC 2.98 LAB WRBC 3.90-5.20 m/uL Low [place] RBC 2.55 LAB WHGB 11.5-15.5 g/dL Low [place] Hemoglobin 7.8 LAB WHCT 36.0-46.0 % Low [place] Hematocrit 25.4 LAB WMCV 80.0-100.0 fL [place] MCV 99.6 LAB WMCH 26.0-34.0 pg [place] MCH 30.6 LAB WMCHC 30.5-36.0 g/dL [place] MCHC 30.7 LAB WRDW 11.5-15.0 % [place] High RDW 16.6 LAB WPLT 150-400 k/uL Low [place] Platelet Cnt 80 LAB WMPV 9.0-12.7 fL [place] MPV 11.2 Result Comment: Test performed at: [facility], [address] [place] [address]. LAB ABGRAN 1.45-7.50 k/uL Absol Gran 2.40 Count HEMOGLOBIN A1C Collected: 05/02/2018 Status: F Source: [place] 9:18 AM [facility] REPOSITORY TYPE CODE TESTS RESULT OUT OF REFERENCE UNITS RANGE LAB HGBA1C 4.3-5.6 % Hemoglobin A1c 5.5 LAB HBA0 mg/dL Est. Average Glucose 111 Result Comment: eAG: (Estimated average glucose) is a calculated value from HgbA1c and is territory sales representative of the average blood glucose level in the last 2-3 month period. Performed By: #### HBA1C #### [facility] [address] [place], [place] [address] TYPE AND SCREEN Collected: 05/02/2018 Status: F Source: [place] 9:15 AM [facility] REPOSITORY Order Comment: PRETRANSFUSION HGB = 7.8 HCT = PERFORMED AT [facility] CMV NEG?* N Give When? 05/03/18 Irradiated? N Leukodepleted? Y Reason for Type AND Screen/Red Cells: HEMORRHAGE, GI BLEED TYPE CODE TESTS RESULT OUT OF RANGE REFERENCE UNITS LAB B10.0800 A Normal BLOOD TYPE GEL POSITIVE LAB B100.4000 Normal Antibody NEGATIVE Screen Performed By: #### B101.7450 #### [facility] [address] [place], [address] Collected: 05/02/2018 Status: F Source: [place] 9:15 AM [facility] REPOSITORY TYPE CODE TESTS RESULT OUT OF REFERENCE UNITS RANGE LAB U100.0000 [id number] TRANSFUSED PRODUCT: T AND S with Crossmatch, Red Cells COUNT: 2 Performed By: #### U100.0000 #### [facility] - refer to report for specific site PROTHROMBIN TIME W/INR Collected: 04/25/2018 Status: F Source: [place] 12:51 PM [facility] REPOSITORY TYPE CODE TESTS RESULT OUT OF REFERENCE UNITS RANGE LAB L300.4150 11.7-14.9 SECONDS High PROTIME 38.7 LAB L300.4200 High alert INR 3.9 Result Comment: CRITICAL VALUE VERIFIED. CALLED TO JUDY 04/25/18 1410 Hair [place] RESULTS READ BACK BY SAME. Performed By: #### L300.3900 #### [facility] [address] [place], [place], [address] [place] ABS GR + CBC Collected: 04/25/2018 Status: F Source: [place] 8:28 AM [facility] REPOSITORY TYPE CODE TESTS RESULT OUT OF REFERENCE UNITS RANGE LAB WWBC 3.70-11.00 k/uL Low [place] WBC 3.28 LAB WRBC 3.90-5.20 m/uL Low [place] RBC 2.58 LAB WHGB 11.5-15.5 g/dL Low [place] Hemoglobin 7.9 LAB WHCT 36.0-46.0 % Low [place] Hematocrit 25.4 LAB WMCV 80.0-100.0 fL [place] MCV 98.4 LAB WMCH 26.0-34.0 pg [place] MCH 30.6 LAB WMCHC 30.5-36.0 g/dL [place] MCHC 31.1 LAB WRDW 11.5-15.0 % [place] High RDW 16.8 LAB WPLT 150-400 k/uL Low [place] Platelet Cnt 76 LAB WMPV 9.0-12.7 fL [place] MPV 12.0 Result Comment: Test performed at: [facility], [address] [place] [address] [address] [place] [address]. LAB ABGRAN 1.45-7.50 k/uL Absol Gran 2.66 Count TYPE AND SCREEN Collected: 04/25/2018 Status: F Source: [place] 8:28 AM [facility] REPOSITORY Order Comment: PRETRANSFUSION HGB = 7.9 HCT = PERFORMED AT [facility] CMV NEG?* Y Give When? [id number] Irradiated? N Leukodepleted? Y Reason for Type AND Screen/Red Cells: ANEMIA TYPE CODE TESTS RESULT OUT OF RANGE REFERENCE UNITS LAB B10.0800 A Normal BLOOD TYPE GEL POSITIVE LAB B100.4000 Normal Antibody NEGATIVE Screen Performed By: #### B101.7450 #### [facility] [address] [place], [address] Collected: 04/25/2018 Status: F Source: [place] 8:28 AM [facility] REPOSITORY TYPE CODE TESTS RESULT OUT OF REFERENCE UNITS RANGE LAB U100.0000 [id number] TRANSFUSED PRODUCT: T AND S with Crossmatch, Red Cells COUNT: 2 Performed By: #### U100.0000 #### [facility] - refer to report for specific site CNPTOUTREACH Observed: 04/23/2018 Status: COMPLETED Source: [place] 12:00 AM [facility] REPOSITORY Patient Outreach (INTMWH) MISSYEMANI ([id number]) 1940 F Date Time Provider Department 04/23/18 KODAK MUÑOZ [facility] During your visit today, we recorded the [...] Assessed Visit Diagnosis:Medication management [Z79.899] Order(s):HGB A1C [AVPEN4U] Order #: [id number] FUTURE Prescriptions as of 04/23/2018 Sig: VENLAFAXINE [...] More... Chronic hypotension [I95.89] Encounter Status:Closed by JAZLYN LAYNEUSESadia on 05/24/18 PROTHROMBIN TIME W/INR Collected: 04/18/2018 Status: F Source: [place] 10:29 AM [facility] REPOSITORY TYPE CODE TESTS RESULT OUT OF REFERENCE UNITS RANGE LAB L300.4150 11.7-14.9 SECONDS High PROTIME 37.2 LAB L300.4200 High alert INR 3.7 Result Comment: CRITICAL VALUE VERIFIED. CALLED TO JUDY 04/18/18 1143 Kwame Soni. RESULTS READ BACK BY JUDY . Performed By: #### L300.3900 #### [facility] [address] [place], [address] [place] ABS GR + CBC Collected: 04/18/2018 Status: F Source: [place] 9:24 AM [facility] REPOSITORY TYPE CODE TESTS RESULT OUT OF REFERENCE UNITS RANGE LAB WWBC 3.70-11.00 k/uL [place] WBC 3.92 LAB WRBC 3.90-5.20 m/uL Low [place] RBC 2.70 LAB WHGB 11.5-15.5 g/dL Low [place] Hemoglobin 8.2 LAB WHCT 36.0-46.0 % Low [place] Hematocrit 26.0 LAB WMCV 80.0-100.0 fL [place] MCV 96.3 LAB WMCH 26.0-34.0 pg [place] MCH 30.4 LAB WMCHC 30.5-36.0 g/dL [place] MCHC 31.5 LAB WRDW 11.5-15.0 % [place] High RDW 16.3 LAB WPLT 150-400 k/uL Low [place] Platelet Cnt 75 LAB WMPV 9.0-12.7 fL [place] MPV 11.5 Result Comment: Test performed at: [facility], [address] [place] [address]. LAB ABGRAN 1.45-7.50 k/uL Absol Gran 3.27 Count TYPE AND SCREEN Collected: 04/18/2018 Status: P Source: [place] 9:20 AM [facility] REPOSITORY Order Comment: PRETRANSFUSION HGB = 8.2 HCT = 26.0 PERFORMED AT [facility] CMV NEG?* N Give When? 04/19/2018 Irradiated? N Leukodepleted? Y Reason for Type AND Screen/Red Cells: ANEMIA TYPE CODE TESTS RESULT OUT OF RANGE REFERENCE UNITS LAB B10.0800 A Normal BLOOD TYPE GEL POSITIVE LAB B100.4000 Normal Antibody NEGATIVE Screen Performed By: #### B101.7450 #### [facility] [address] [place], [address] TYPE AND SCREEN Collected: 04/18/2018 Status: P Source: [place] 9:20 AM [facility] REPOSITORY Order Comment: PRETRANSFUSION HGB = 8.2 [facility]?* N Give When? 04/19/2018 Irradiated? N Leukodepleted? Y Reason for Type AND Screen/Red Cells: ANEMIA TYPE CODE TESTS RESULT OUT OF RANGE REFERENCE UNITS LAB B10.0800 A Normal BLOOD TYPE GEL POSITIVE LAB B100.4000 Normal Antibody NEGATIVE Screen Performed By: #### B101.7450 #### [facility] [address] [place] [place], [address] TYPE AND SCREEN Collected: 04/18/2018 Status: F Source: [place] 9:20 AM [facility] REPOSITORY Order Comment: PRETRANSFUSION HGB = 8.2 HCT [facility]?* N Give When? 04/19/2018 Irradiated? N Leukodepleted? Y Reason for Type AND Screen/Red Cells: ANEMIA TYPE CODE TESTS RESULT OUT OF RANGE REFERENCE UNITS LAB B10.0800 A Normal BLOOD TYPE GEL POSITIVE LAB B100.4000 Normal Antibody NEGATIVE Screen Performed By: #### B101.7450 #### [facility] [address] [place] [place], [address] RC Collected: 04/18/2018 Status: F Source: [place] 9:20 AM [facility] REPOSITORY TYPE CODE TESTS RESULT OUT OF REFERENCE UNITS RANGE LAB U100.0000 [id number] TRANSFUSED PRODUCT: T AND S with Crossmatch, Red Cells COUNT: 2 Performed By: #### U100.0000 #### [facility] - refer to report for specific site [place] ABS GR + CBC Collected: 04/11/2018 Status: F Source: [place] 9:02 AM [facility] REPOSITORY TYPE CODE TESTS RESULT OUT OF REFERENCE UNITS RANGE LAB WWBC 3.70-11.00 k/uL Low [place] WBC 3.33 LAB WRBC 3.90-5.20 m/uL Low [place] RBC 2.76 LAB WHGB 11.5-15.5 g/dL Low [place] Hemoglobin 8.4 LAB WHCT 36.0-46.0 % Low [place] Hematocrit 27.3 LAB WMCV 80.0-100.0 fL [place] MCV 98.9 LAB WMCH 26.0-34.0 pg [place] MCH 30.4 LAB WMCHC 30.5-36.0 g/dL [place] MCHC 30.8 LAB WRDW 11.5-15.0 % [place] High RDW 16.0 LAB WPLT 150-400 k/uL Low [place] Platelet Cnt 83 LAB WMPV 9.0-12.7 fL [place] MPV 11.2 Result Comment: Test performed at: [facility], [address] [place] [address]. LAB ABGRAN 1.45-7.50 k/uL Absol Gran 2.71 Count TYPE AND SCREEN Collected: 04/11/2018 Status: F Source: [place] 9:02 AM [facility] REPOSITORY Order Comment: PRETRANSFUSION HGB = 8.4 HCT = 27.3 PERFORMED AT [facility] CMV NEG?* N Give When? 04/12/18 @0800 Irradiated? N Leukodepleted? Y Reason for Type AND Screen/Red Cells: [place] TYPE CODE TESTS RESULT OUT OF RANGE REFERENCE UNITS LAB B10.0800 A Normal BLOOD TYPE GEL POSITIVE LAB B100.4000 Normal Antibody NEGATIVE Screen Performed By: #### B101.7450 #### [facility] [address] [place], [address] Collected: 04/11/2018 Status: F Source: [place] 9:02 AM [facility] REPOSITORY TYPE CODE TESTS RESULT OUT OF REFERENCE UNITS RANGE LAB U100.0000 [id number] TRANSFUSED PRODUCT: T AND S with Crossmatch, Red Cells COUNT: 2 Performed By: #### U100.0000 #### [facility] - refer to report for specific site CARDIOLOGY VISIT Observed: 04/09/2018 Status: F Source: [place] REPORT 10:53 AM [facility] REPOSITORY [facility] [address] [place] [address] OFFICE VISIT Date of Service: 04/09/18 MR#: [id number] Acct: [id number] Name: EMANI LOUIS Rep #: [id number] : 1940 Provider: Eddie Mendoza MD Age/Sex: 77/F Location: [facility] Status: Signed HPI [facility] Chief Complaint: Follow up visit Details: EMANI [...] red blood cell transfusion and transferred to [facility]. She did apparently undergo a double [...] M FU (rejoshua Mendoza); Natali @ 1pm International Sourcing Manager Required: No Accompanied by: none Is patient [...] SC QHS 04/30/15 [History Confirmed 04/09/18] Tiotropium Concord [Spiriva 18 MCG] 2 puff INHALATION DAILY PRN 06/03/15 [History Confirmed 04/09/18] Cyanocobalamin (Vitamin B-12) [Vitamin B12] 2,500 mcg PO DAILY 06/10/16 [History Confirmed 04/09/18] Docusate Sodium [Colace] 200 mg PO BID PRN PRN 01/27/17 [History Confirmed 04/09/18] Fluticasone 0.05% [Flonase Nasal Roundup] 2 spray NASAL DAILY PRN 09/08/16 [History [...] atrial fibrillation (Chronic) 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) Coding Level of Care Code Off vis,est,level [...] Date (if applicable) CC: Kodak Muñoz MD [place] ABS GR + CBC Collected: 04/04/2018 Status: F Source: [place] 9:03 AM [facility] REPOSITORY TYPE CODE TESTS RESULT OUT OF REFERENCE UNITS RANGE LAB WWBC 3.70-11.00 k/uL Low [place] WBC 2.77 LAB WRBC 3.90-5.20 m/uL Low [place] RBC 3.26 LAB WHGB 11.5-15.5 g/dL Low [place] Hemoglobin 9.9 LAB WHCT 36.0-46.0 % Low [place] Hematocrit 32.4 LAB WMCV 80.0-100.0 fL [place] MCV 99.4 LAB WMCH 26.0-34.0 pg [place] MCH 30.4 LAB WMCHC 30.5-36.0 g/dL [place] MCHC 30.6 LAB WRDW 11.5-15.0 % [place] High RDW 16.1 LAB WPLT 150-400 k/uL Low [place] Platelet Cnt 80 LAB WMPV 9.0-12.7 fL [place] MPV 11.9 Result Comment: Test performed at: [facility] [place], [address] [place] [address]. LAB ABGRAN 1.45-7.50 k/uL Absol Gran 2.24 Count PACEMAKER CHECK Observed: 03/29/2018 Status: F Source: [place] 4:30 PM [facility] REPOSITORY [facility] [address] [place] [address] Pacemaker Check Date of Service: 03/29/18 1601 MR#: [id number] Acct: [id number] Name: EMANI LOUIS Rep #: [id number] : 1940 From: Angélica Dunn Age/Sex: 77/F [place] [facility] [place]: Signed Billing Codes PM Device Codes: PM Dev Prog Eval, Dual 03/29/18 1603 <Electronically signed by Angélica Dunn > Date Angélica Dunn 03/29/18 1630<Electronically signed by Eddie Mendoza MD> Cosign Signature: Date (if applicable) Eddie Mendoza MD CC: [place] ABS GR + CBC Collected: 03/28/2018 Status: F Source: [place] 9:09 AM [facility] REPOSITORY TYPE CODE TESTS RESULT OUT OF REFERENCE UNITS RANGE LAB WWBC 3.70-11.00 k/uL Low [place] WBC 3.12 LAB WRBC 3.90-5.20 m/uL Low [place] RBC 2.65 LAB WHGB 11.5-15.5 g/dL Low [place] Hemoglobin 8.0 LAB WHCT 36.0-46.0 % Low [place] Hematocrit 27.2 LAB WMCV 80.0-100.0 fL [place] High MCV 102.6 LAB WMCH 26.0-34.0 pg Frederic MCH 30.2 LAB WMCHC 30.5-36.0 g/dL Low Frederic MCHC 29.4 Result Comment: Result checked and verified LAB WRDW 11.5-15.0 % Fred[place] High RDW 16.7 LAB WPLT 150-400 k/uL Low [place] Platelet Cnt 86 Result Comment: Result checked and verified NO CLOT DETECTED LAB WMPV 9.0-12.7 fL Frederic MPV 10.5 Result Comment: Test performed at: [facility], [address] [place] [address] Rd., [place] [address]. LAB ABGRAN 1.45-7.50 k/uL Absol Gran 2.49 Count TYPE AND SCREEN Collected: 03/28/2018 Status: F Source: [place] 9:07 AM [facility] REPOSITORY Order Comment: PRETRANSFUSION HGB = 8.0 HCT = 27.2 PERFORMED AT [facility] CMV NEG?* N Give When? 03/29/18 @0830 Irradiated? N Leukodepleted? Y Reason for Type AND Screen/Red Cells: ANEMIA TYPE CODE TESTS RESULT OUT OF RANGE REFERENCE UNITS LAB B10.0800 A Normal BLOOD TYPE GEL POSITIVE LAB B100.4000 Normal Antibody NEGATIVE Screen Performed By: #### B101.7450 #### [facility] [address] [place], [address] Collected: 03/28/2018 Status: F Source: [place] 9:07 [facility] REPOSITORY TYPE CODE TESTS RESULT OUT OF REFERENCE UNITS RANGE LAB U100.0000 19222015 TRANSFUSED PRODUCT: T AND S with Crossmatch, Red Cells COUNT: 2 Performed By: #### U100.0000 #### [facility] - refer to report for specific site FORBES ABS GR + CBC Collected: 03/21/2018 Status: F Source: [place] 9:03 AM [facility] REPOSITORY TYPE CODE TESTS RESULT OUT OF REFERENCE UNITS RANGE LAB WWBC 3.70-11.00 k/uL Low [place] WBC 3.33 LAB WRBC 3.90-5.20 m/uL Low [place] RBC 2.86 LAB WHGB 11.5-15.5 g/dL Low [place] Hemoglobin 8.6 LAB WHCT 36.0-46.0 % Low [place] Hematocrit 29.2 LAB WMCV 80.0-100.0 fL [place] High MCV 102.1 LAB WMCH 26.0-34.0 pg [place] MCH 30.1 LAB WMCHC 30.5-36.0 g/dL Low [place] MCHC 29.5 LAB WRDW 11.5-15.0 % Frederic High RDW 15.8 LAB WPLT 150-400 k/uL Low [place] Platelet Cnt 85 LAB WMPV 9.0-12.7 fL Frederic MPV 11.7 Result Comment: Test performed at: [facility], [address] [place] [address] Rd., [place] [address]. LAB ABGRAN 1.45-7.50 k/uL Absol 2.56 Gran Count LAB ABSNUC <0.01 k/uL Absolute nRBC Result checked and verified IRON AND TIBC Collected: 03/21/2018 Status: F Source: [place] 9:01 AM [facility] REPOSITORY TYPE CODE TESTS RESULT OUT OF REFERENCE UNITS RANGE LAB IRN 41-186 ug/dL Iron 65 LAB TIBC 232-386 ug/dL Low TIBC 207 LAB SAT 15-57 % Transferrin Saturatn 31 Performed By: #### IRON, FERR #### [facility] [address] [address] FERRITIN Collected: 03/21/2018 Status: F Source: [place] 9:01 AM [facility] REPOSITORY TYPE CODE TESTS RESULT OUT OF REFERENCE UNITS RANGE LAB FERR 14.7-205.1 ng/mL High Ferritin 311.9 Performed By: #### IRON, FERR #### [facility] [address] [address] FREDERIC ABS GR + CBC Collected: 03/14/2018 Status: F Source: [place] 8:33 AM [facility] REPOSITORY TYPE CODE TESTS RESULT OUT OF REFERENCE UNITS RANGE LAB WWBC 3.70-11.00 k/uL Low [place] WBC 3.24 LAB WRBC 3.90-5.20 m/uL Low [place] RBC 3.01 LAB WHGB 11.5-15.5 g/dL Low [place] Hemoglobin 9.1 LAB WHCT 36.0-46.0 % Low [place] Hematocrit 30.0 LAB WMCV 80.0-100.0 fL [place] MCV 99.7 LAB WMCH 26.0-34.0 pg [place] MCH 30.2 LAB WMCHC 30.5-36.0 g/dL Low [place] MCHC 30.3 LAB WRDW 11.5-15.0 % Frederic High RDW 15.6 LAB WPLT 150-400 k/uL Low [place] Platelet Cnt 74 LAB WMPV 9.0-12.7 fL [place] MPV 12.0 Result Comment: Test performed at: [facility], [address] [place] [address]. LAB ABGRAN 1.45-7.50 k/uL Absol Gran 2.41 Count PROTHROMBIN TIME W/INR Collected: 03/14/2018 Status: F Source: [place] 7:55 AM [facility] REPOSITORY TYPE CODE TESTS RESULT OUT OF RANGE REFERENCE UNITS LAB L300.4150 11.7-14.9 SECONDS High PROTIME 30.3 LAB L300.4200 Normal INR 2.9 Performed By: #### L300.3900 #### [facility] [place], [address] FORBES ABS GR + CBC Collected: 03/07/2018 Status: F Source: [place] 9:15 AM [facility] REPOSITORY TYPE CODE TESTS RESULT OUT OF REFERENCE UNITS RANGE LAB WWBC 3.70-11.00 k/uL Low [place] WBC 3.25 LAB WRBC 3.90-5.20 m/uL Low [place] RBC 3.32 LAB WHGB 11.5-15.5 g/dL Low [place] Hemoglobin 10.0 LAB WHCT 36.0-46.0 % Low [place] Hematocrit 33.1 LAB WMCV 80.0-100.0 fL [place] MCV 99.7 LAB WMCH 26.0-34.0 pg [place] MCH 30.1 LAB WMCHC 30.5-36.0 g/dL Low [place] MCHC 30.2 LAB WRDW 11.5-15.0 % [place] High RDW 16.2 LAB WPLT 150-400 k/uL Low [place] Platelet Cnt 95 LAB WMPV 9.0-12.7 fL [place] MPV 11.7 Result Comment: Test performed at: [facility], [address] [place] [address]. LAB ABGRAN 1.45-7.50 k/uL Absol Gran 2.47 Count FREDERIC ABS GR + CBC Collected: 02/28/2018 Status: F Source: [place] 9:00 AM [facility] REPOSITORY TYPE CODE TESTS RESULT OUT OF REFERENCE UNITS RANGE LAB WWBC 3.70-11.00 k/uL Low [place] WBC 3.27 LAB WRBC 3.90-5.20 m/uL Low [place] RBC 3.18 LAB WHGB 11.5-15.5 g/dL Low [place] Hemoglobin 9.4 LAB WHCT 36.0-46.0 % Low [place] Hematocrit 31.8 LAB WMCV 80.0-100.0 fL [place] MCV 100.0 LAB WMCH 26.0-34.0 pg [place] MCH 29.6 LAB WMCHC 30.5-36.0 g/dL Low [place] MCHC 29.6 Result Comment: Result checked and verified LAB WRDW 11.5-15.0 % High [place] RDW 16.3 LAB WPLT 150-400 k/uL Low [place] 75 Platelet Cnt LAB WMPV 9.0-12.7 fL [place] MPV 10.8 Result Comment: Test performed at: [facility], [address] [place] [address]. LAB ABGRAN 1.45-7.50 k/uL Absol Gran 2.45 Count CAROTID DUPLEX Observed: 02/22/2018 Status: F Source: [place] ULTRASOUND 7:16 PM [facility] REPOSITORY [facility] Cardiovascular Services [address] [place] [address] Carotid Duplex Ultrasound 02/22/18 1242 MR#: [id number] Acct: [id number] Name: EMANI LOUIS Rep #: [id number] : 1940 77 From: Addison Loaiza MD [...] the left vertebral artery. Procedure Carotid Duplex 99330. Prelim given to Leidy CAMPOS. Exam performed [...] Physician: Kodak Muñoz Performed By: Ginny Valenzuela, RDCS, RVT 02/22/181914 Date Addison Loaiza MD CC: Eddie Mendoza MD; Kodak Muñoz MD Date Dictated: 02/22/18 1242 Date Transcribed: 02/22/181914 Socket Puller: Signed PROTHROMBIN TIME W/INR Collected: 02/21/2018 Status: F Source: [place] 8:39 AM [facility] REPOSITORY TYPE CODE TESTS RESULT OUT OF RANGE REFERENCE UNITS LAB L300.4150 11.7-14.9 SECONDS High PROTIME 30.7 LAB L300.4200 Normal INR 2.9 Performed By: #### L300.3900 #### [facility] [address] [place], [address] FREDERIC ABS GR + CBC Collected: 02/21/2018 Status: F Source: [place] 8:08 AM [facility] REPOSITORY TYPE CODE TESTS RESULT OUT OF REFERENCE UNITS RANGE LAB WWBC 3.70-11.00 k/uL Low [place] WBC 2.92 LAB WRBC 3.90-5.20 m/uL Low [place] RBC 2.99 LAB WHGB 11.5-15.5 g/dL Low [place] Hemoglobin 9.0 LAB WHCT 36.0-46.0 % Low [place] Hematocrit 30.3 LAB WMCV 80.0-100.0 fL [place] High MCV 101.3 LAB WMCH 26.0-34.0 pg [place] MCH 30.1 LAB WMCHC 30.5-36.0 g/dL Low [place] MCHC 29.7 Result Comment: Result checked and verified LAB WRDW 11.5-15.0 % High [place] RDW 17.0 LAB WPLT 150-400 k/uL Low [place] 77 Platelet Cnt LAB WMPV 9.0-12.7 fL [place] MPV 10.2 Result Comment: Test performed at: [facility] [place], [address] [place] [address]. LAB ABGRAN 1.45-7.50 k/uL Absol Gran 2.22 Count PROTHROMBIN TIME W/INR Collected: 02/14/2018 Status: F Source: [place] 10:03 AM [facility] REPOSITORY TYPE CODE TESTS RESULT OUT OF RANGE REFERENCE UNITS LAB L300.4150 11.7-14.9 SECONDS High PROTIME 23.2 LAB L300.4200 Normal INR 2.1 Performed By: #### L300.3900 #### [facility] [address] [place], [address] FREDERIC ABS GR + CBC Collected: 02/14/2018 Status: F Source: [place] 9:08 AM [facility] REPOSITORY TYPE CODE TESTS RESULT OUT OF REFERENCE UNITS RANGE LAB WWBC 3.70-11.00 k/uL Low [place] WBC 3.13 LAB WRBC 3.90-5.20 m/uL Low [place] RBC 2.96 LAB WHGB 11.5-15.5 g/dL Low [place] Hemoglobin 8.8 LAB WHCT 36.0-46.0 % Low [place] Hematocrit 29.5 LAB WMCV 80.0-100.0 fL [place] MCV 99.7 LAB WMCH 26.0-34.0 pg [place] MCH 29.7 LAB WMCHC 30.5-36.0 g/dL Low [place] MCHC 29.8 Result Comment: Result checked and verified LAB WRDW 11.5-15.0 % High [place] RDW 15.9 LAB WPLT 150-400 k/uL Low Frederic 71 Platelet Cnt LAB WMPV 9.0-12.7 fL [place] MPV 11.3 Result Comment: Test performed at: [facility], [address] [place] [address] [address] [place] [address]. LAB ABGRAN 1.45-7.50 k/uL Absol Gran 2.47 Count FREDERIC ABS GR + CBC Collected: 02/07/2018 Status: F Source: [place] 9:00 AM [facility] REPOSITORY TYPE CODE TESTS RESULT OUT OF REFERENCE UNITS RANGE LAB WWBC 3.70-11.00 k/uL Low [place] WBC 3.43 LAB WRBC 3.90-5.20 m/uL Low [place] RBC 2.85 LAB WHGB 11.5-15.5 g/dL Low [place] Hemoglobin 8.6 LAB WHCT 36.0-46.0 % Low [place] Hematocrit 28.7 LAB WMCV 80.0-100.0 fL [place] High MCV 100.7 LAB WMCH 26.0-34.0 pg [place] MCH 30.2 LAB WMCHC 30.5-36.0 g/dL Low [place] MCHC 30.0 LAB WRDW 11.5-15.0 % [place] High RDW 17.5 LAB WPLT 150-400 k/uL Low [place] Platelet Cnt 95 LAB WMPV 9.0-12.7 fL [place] MPV 10.8 Result Comment: Test performed at: [facility], [address] [place] [address] Rd., [place] [address]. LAB ABGRAN 1.45-7.50 k/uL Absol 2.78 Gran Count LAB ABSNUC <0.01 k/uL Absolute nRBC Result checked and verified IRON AND TIBC Collected: 02/07/2018 Status: F Source: [place] 9:00 AM [facility] REPOSITORY TYPE CODE TESTS RESULT OUT OF REFERENCE UNITS RANGE LAB IRN 41-186 ug/dL Iron 66 LAB TIBC 232-386 ug/dL Low TIBC 214 LAB SAT 15-57 % Transferrin Saturatn 31 Performed By: #### IRON #### [facility] [address] [place], [place] [address] ANES POST Observed: 02/06/2018 Status: COMPLETED Source: [place] 9:59 AM [facility] REPOSITORY HNO ID: [id number] Author: Vinicio Marsh) Da Service: Anesthesiology Author Type: Anesthesiologist Type: Anesthesia [...] 06, 2018 TIME: 9:59 AM PAGER/CONTACT #: [phone] PROTHROMBIN TIME W/INR Collected: 02/05/2018 Status: F Source: [place] 9:10 AM [facility] REPOSITORY TYPE CODE TESTS RESULT OUT OF RANGE REFERENCE UNITS LAB L300.4150 11.7-14.9 SECONDS High PROTIME 21.3 LAB L300.4200 Normal INR 1.8 Performed By: #### L300.3900 #### [facility] [address] [facility] [place], [address] DOWNTIME REPORT Observed: 01/31/2018 Status: F Source: [place] 12:08 PM [facility] REPOSITORY [facility] Medical Records Department [address] [facility] [place] [address] Downtime Report MR#: [id number] Acct: [id number] Name: EMANI LOUIS Rep #: [id number] : 1940 77 From: Lucio Saavedra PCP: Kodak Muñoz MD Status: REG RCR This patient was seen during an EMR downtime January 14, 2018 - January 21, 2018. This patient may have a combination of paper and electronic documentation or all paper documentation. All documentation is viewable within the e-chart portion of [employer] for each patient visit. FRED[place] ABS GR + CBC Collected: 01/31/2018 Status: F Source: [place] 9:08 AM [facility] REPOSITORY TYPE CODE TESTS RESULT OUT OF REFERENCE UNITS RANGE LAB WWBC 3.70-11.00 k/uL [place] WBC 4.35 LAB WRBC 3.90-5.20 m/uL Low [place] RBC 3.03 LAB WHGB 11.5-15.5 g/dL Low [place] Hemoglobin 9.0 LAB WHCT 36.0-46.0 % Low [place] Hematocrit 30.2 LAB WMCV 80.0-100.0 fL [place] MCV 99.7 LAB WMCH 26.0-34.0 pg [place] MCH 29.7 LAB WMCHC 30.5-36.0 g/dL Low [place] MCHC 29.8 Result Comment: Result checked and verified LAB WRDW 11.5-15.0 % High [place] RDW 18.4 LAB WPLT 150-400 k/uL Low [place] 118 Platelet Cnt LAB WMPV 9.0-12.7 fL [place] MPV 11.8 Result Comment: Test performed at: [facility], [address] [place] [address]. LAB ABGRAN 1.45-7.50 k/uL Absol Gran 3.52 Count 12 LEAD ELECTROCARDIOGRAM Observed: 01/28/2018 Status: F Source: [place] 8:35 AM [facility] REPOSITORY [facility] Cardiovascular Services [address] [place] [address] 12 Lead EKG 01/07/18 1812 MR#: [id number] Acct: [id number] Name: EMANI LOUIS Rep #: [id number] : 1940 77 From: Zia Pfeiffer MD [...] abnormality Abnormal ECG Confirmed by ZIA PFEIFFER ([id number]), senior editor SUZANNE SAAVEDRA ([id number]) on 01/21/2018 5:14:06 PM Referred By: MAMTA Confirmed By:ZIA PFEIFFER 01/21/18 1714 Date Zia Pfeiffer MD CC: Jessie Boothe MD; Kodak Muñoz MD Signed [place] ABS GR + CBC Collected: 01/24/2018 Status: F Source: [place] 9:00 AM [facility] REPOSITORY TYPE CODE TESTS RESULT OUT OF REFERENCE UNITS RANGE LAB WWBC 3.70-11.00 k/uL [place] WBC 3.83 LAB WRBC 3.90-5.20 m/uL Low [place] RBC 3.00 LAB WHGB 11.5-15.5 g/dL Low [place] Hemoglobin 8.8 LAB WHCT 36.0-46.0 % Low [place] Hematocrit 29.8 LAB WMCV 80.0-100.0 fL [place] MCV 99.3 LAB WMCH 26.0-34.0 pg [place] MCH 29.3 LAB WMCHC 30.5-36.0 g/dL Low [place] MCHC 29.5 LAB WRDW 11.5-15.0 % [place] High RDW 18.2 LAB WPLT 150-400 k/uL Low [place] Platelet Cnt 95 LAB WMPV 9.0-12.7 fL [place] MPV 11.0 Result Comment: Test performed at: [facility], [address] [place] [address]., [place] [address]. LAB ABGRAN 1.45-7.50 k/uL Absol 3.22 Gran Count LAB ABSNUC <0.01 k/uL Absolute nRBC Result checked and verified IRON AND TIBC Collected: 01/24/2018 Status: F Source: [place] 9:00 AM [facility] REPOSITORY TYPE CODE TESTS RESULT OUT OF REFERENCE UNITS RANGE LAB IRN 41-186 ug/dL Iron 44 LAB TIBC 232-386 ug/dL TIBC 252 LAB SAT 15-57 % Transferrin Saturatn 17 Performed By: #### IRON, FERR #### [facility] [address] [place], [place] [address] FERRITIN Collected: 01/24/2018 Status: F Source: [place] 9:00 AM [facility] REPOSITORY TYPE CODE TESTS RESULT OUT OF REFERENCE UNITS RANGE LAB FERR 14.7-205.1 ng/mL High Ferritin 470.9 Performed By: #### IRON, FERR #### [facility] [address] [place], [place] [address] PROTIME Collected: 01/21/2018 Status: F Source: [place] 10:46 AM [facility] REPOSITORY TYPE CODE TESTS RESULT OUT OF RANGE REFERENCE UNITS LAB PSEC 9.7-13.0 sec High PT Sec 32.8 LAB INR 0.9-1.3 High PT INR 3.4 Result Comment: Vitamin K Antagonist (VKA) Therapeutic Range: INR 2 to 3 (Target INR of 2.5) Note: For patients treated with VKA drugs, such as warfarin, the [place] [employer] 2012 Guideline recommends [...] GH, et al. Chest 2012, 141:7S-47S Phoebe MORE et al. [facility] 2017, 70: 252-289 Performed By: #### PT, CBCDIF, BMP #### [facility] [address] [place], [place] [address] CBC AND DIFFERENTIAL Collected: 01/21/2018 Status: F Source: [place] 10:46 AM [facility] REPOSITORY TYPE CODE TESTS RESULT [...] Low Abs Lymph 0.61 LAB AMONO % [place]% 4.8 LAB AAMONO <0.87 k/uL Abs [place] 0.20 LAB AEOS % Eosin% 0.5 LAB AAEOS <0.46 k/uL Abs Eosin <0.03 LAB ABASO % Baso% 0.5 LAB AABASO <0.11 k/uL Abs Baso <0.03 LAB AUNRBC 0 /100 WBC NRBCs 0.0 LAB ABNRBC <0.01 k/uL Absolute nRBC <0.01 LAB DTYP DTYPE Auto Diff Performed By: #### PT, CBCDIF, BMP #### [facility] [address] [place] [id number] BASIC METABOLIC PANL Collected: 01/21/2018 Status: F Source: [place] 10:46 AM [facility] REPOSITORY TYPE CODE TESTS RESULT OUT OF REFERENCE UNITS RANGE LAB GLU 74-99 mg/dL Glucose 96 Result Comment: The [place] Diabetes Association (ADA) provides guidance for cutoff [...] Standards of Medical Care in Diabetes 2016, [place] [employer] Association. Diabetes Care. 2016.39(Suppl 1). LAB [...] Performed By: #### PT, CBCDIF, BMP #### [facility] [email or web address] [place], [place] [id number] TYPE AND SCREEN Collected: 01/21/2018 Status: F Source: [place] 10:46 AM [facility] REPOSITORY TYPE CODE TESTS RESULT OUT OF REFERENCE UNITS RANGE LAB %ABR A ABO/RH(D) POSITIVE LAB % Antibody NEG Screen Performed By: #### TSCR #### [facility] [address] [place], [place] [address] CNOV Observed: 01/21/2018 Status: COMPLETED Source: [place] 9:15 AM [facility] REPOSITORY Office Visit (IMPAMN) EMANI LOUIS ([id number]) 1940 F Date Time Provider Department 01/21/18 9:15 AM TEENA SUE IMPAMN During your visit today, we recorded the following information about you: Temperature Pulse Blood pressure Weight 98 degrees 106/minute 84/48 64.9 kg Height 1.575 m Teena Sue MD, [facility], 01/24/2018 8:47 AM Addendum HISTORY AND PHYSICAL [...] since discharge. Reports that she follows with [facility] [place] for her coumadin/INR and has always been [...] rhinitis - COPD (chronic obstructive pulmonary disease) ([facility]) - DDD (degenerative disc disease) - Diverticulosis of colon (without mention of hemorrhage) 10/17/05 - DM type 2 (diabetes mellitus, type 2) ([facility]) 08/15/2005 on insulin - Esophageal reflux 08/15/2005 - Fibromyalgia - Generalized osteoarthrosis, unspecified site - Heart valve replaced by other means 08/17/2008 #25, [facility] [facility] Mitral valve. - Iron deficiency 08/17/2011 - Lumbago 08/15/2005 - Melena - Moderate to severe pulmonary hypertension 09/21/2016 - Myalgia and myositis, unspecified - Other and unspecified hyperlipidemia 08/15/2005 - PSVT (paroxysmal supraventricular tachycardia) ([facility]) 04/10/2011 - Sleep apnea - Thrombocytopenia ([facility]) - Tricuspid regurgitation - Unspecified asthma(493.90) 08/15/2005 - Unspecified cardiovascular disease heart cath 12/15 PAST SURGICAL HISTORY Procedure Laterality Date - CAPSULE ENDOSCOPY SMALL BOWEL 12/03/2017 - COLONOSCOP W/ OR W/O [facility] SPEC 10/17/05 - COLONOSCOP W/ OR W/O [facility] SPEC 08/25/2009 Colonoscopy - COLONOSCOP W/ OR W/O [facility] SPEC 10/17/2012 Colonoscopy - COLONOSCOPY 11/26/2017 - EGD 01/16/2005 - EGD W/O OR W/BRUSH/WASH 08/25/2009 EGD - EGD W/O OR W/BRUSH/WASH 04/05/15 EGD inpt [facility] - EGD W/O OR W/BRUSH/WASH 10/30/2016 EGD [...] fevers. Neuro: No history of TIA's, stroke, [employer] tumor, impaired sensorium, hemiplegia, paraplegia or quadriplegia. 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 COPD [...] Has SSS s/p PPM, follows with local meeting facilitator. Denies hx of VTE. No chest pain GI: Denies hx of GERD. Denies n/v/abd pain, melena,hematochezia, hematochezia. Hx of GI bleed in the past. -see HPI : No history of UTI in past 6 weeks. No history of renal failure. Not currently on or requiring dialysis. No history of symptoms or problems. 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 valve 2007. On warfarin (local meeting facilitator has done lovenox bridging in the past) - CHFpEF, compensated - SSS, s/p PPM 2008 - CKD 3 b/l 1.5-1.7 though more recent creatinine in the 1.3- 1.4 range - Anemia of Chronic disease, folowed closely by heme and does regular aranesp - DM type II, on skilled nursing insulin, no complications - Hypothyroid, on Synthroid [...] 12.2 Absolute nRBC <0.01 k/uL <0.01 WBC, [place] 3.70 - 11.00 k/uL 3.65 (L) RBC, [place] 3.90 - 5.20 m/uL 3.20 (L) Hemoglobin, [place] 11.5 - 15.5 g/dL 9.4 (L) Hematocrit, [place] 36.0 - 46.0 % 31.2 (L) MCV, [place] 80.0 - 100.0 fL 97.5 MCH, [place] 26.0 - 34.0 pg 29.4 MCHC, [place] 30.5 - 36.0 g/dL 30.1 (L) RDW, [place] 11.5 - 15.0 % 17.5 (H) Platelet Cnt, [place] 150 - 400 k/uL 87 (L) MPV, [place] 9.0 - 12.7 fL 11.1 Absol Gran [...] using Synthroid 50 Qd - DJD, using ?[place]. - Moderate to severe pulmonary hypertension, 2017 [...] placed. - She p/w weakness to OSH ([place] [facility]), as she was too weak to stand and noted to be hypotensive and tachycardic. Hg was 4.5, and INR was 19.5, given Vitamin K and 2 units of RBCs, 2 L fluid bolus, ?80 mg IV protonix and started on a protonix gtt. ??She was then transferred to [facility]?Hgb on presentation was 7.2. Patient [...] on 02/06. -Patient was transferred to the [facility]. Patient was being transitioned back to [...] with more than 50% of the total [id number] time of the visit in counseling / [...] done in the past and that her meeting facilitator arranges. If GI needs patient to be off couamdin, will then need to request her meeting facilitator to facilitate bridging with closer monitoring. of note, patient also closely followed by [facility]. Labs ordered to rechceck CBC, INR and BMP. Patient aware to seek medical help right away for any signs and symptoms of anemia or GI bleeding Patient's meeting facilitator is Dr. Mendoza [phone]. Device check ordered after discussion with the [facility] who recommended pre-appointment here PULMONARY: Patient is at optimal Pulmonary status for scheduled surgery / procedure. Suggest the following in the post-operative period: Continue bronchodilator medications, Aggressive bronchopulmonary hygiene and Early ambulation ENDOCRINE: DIABETES: - Initiate [facility] Guidelines for perioperative [...] and that she is followed by her meeting facilitator for it. Device check completed. Per Dr. [...] Direct number to Dr. Mendoza's office is [phone] (Kandy is Dr. Mendoza's nurse). Will forward [...] OF SERVICE/OFFICE VISIT: January 21, 2018 Shaan Marvina 01/21/2018 12:05 PM Signed Emani Louis is a 77 year old female here today for visit in [place] Referring Surgeon: Dr. Mckeon Date of Surgery: [...] Shaan Sue MD, FACP, 01/21/2018 9:[address] [facility] Patient Instructions for Surgery FOOD INSTRUCTIONS: Nothing [...] Lovenox please contact Teena Sue MD, FACP, [facility] Seek medical help right away for any [...] please do not hesitate to contact the [facility] at [phone] or [phone], [phone]. Signature: Teena Sue MD, FACP, [facility] Date: January 21, 2018 Referring Provider: SILVINO HU [[id number]] Allergies As of Date: 01/21/2018 Noted Allergy [...] anticoagulation [Z79.01] Order(s):CONSULT TO [facility] [[id number]] Order #: [id number]: 1 TYPE + SCREEN,30 DAY [PVOROR36] Order #: [id number] FUTURE CBC + DIFF [SQCBCDIF] Order #: [id number] FUTURE BASIC METABOLIC PNL [SQBMP] Order #: [id number] FUTURE PROTHROMBIN TIME/PT [SQPT] Order #: [id number] FUTURE Prescriptions as of 01/21/2018 Sig: TRAZODONE [...] encounter FUROSEMIDE 20 MG TABLET >> Shaan Roya 01/21/2018 9:10 AM >> SHAAN PRYOR Mon Jan 21, 2018 9:10 AM Problem List As [...] hypotension [I95.89] Other instructions from your clinician: [facility] Patient Instructions for Surgery FOOD INSTRUCTIONS: Nothing [...] about Lovenox please contact Teena Sue MD, [facility], [facility] Seek medical help right away for any [...] please do not hesitate to contact the [facility] at [phone] or [phone], ext [phone]. Signature: Teena Sue MD, FACJosiah, [facility] Date: January 21, 2018 Encounter Status:Closed by ISAAC SUE [facility] TEENA Salas MD on 01/21/18 PROGRESS Observed: 01/21/2018 Status: COMPLETED Source: [place] 9:02 AM [facility] REPOSITORY HNO ID: [id number] Author: Shaan Pryor Service: (none) Author Type: (none) Type: Progress Notes Filed: 01/21/2018 12:05 PM Note Text: Emani Louis is a 77 year old female here today for visit in [facility] Referring Surgeon: Dr. Mckeon Date of Surgery: [...] HISTORY PHYSICAL Observed: 01/18/2018 Status: COMPLETED Source: [place] 2:16 PM [facility] REPOSITORY HNO ID: [id number] Author: Teena Sue Service: (none) Author Type: Physician Type: HANDP Filed: 01/24/2018 8:47 AM Note Text: HISTORY AND PHYSICAL EXAMINATION (IMPACT) SERVICE DATE: 01/21/2018 PRIMARY CARE PHYSICIAN: Koadk Muñoz MD CHIEF COMPLAINT/HISTORY OF PRESENT ILLNESS: [...] since discharge. Reports that she follows with [facility] [place] for her coumadin/INR and has always been [...] kidney failure with lesion of tubular necrosis ([facility]) 08/19/[address] Tobias. - Adenomatous colon polyp 08/30/2012 - Anemia in chronic kidney disease 08/31/2011 - Atrial fibrillation ([facility]) 05/09/2012 - Calculus of ureter 03/24/2008 - Cardiac pacemaker in situ 08/17/2008 Sick sinus syndrome. - CHF (congestive heart failure) ([facility]) 07/24/2008 Mitral insufficiency. s/p MV replacement - Cholelithiasis 05/26/2013 - Chronic hypotension - Chronic kidney disease, stage III (moderate) 09/23/2009 - Chronic rhinitis - COPD (chronic obstructive pulmonary disease) ([facility]) - DDD (degenerative disc disease) - Diverticulosis of colon (without mention of hemorrhage) 10/17/05 - DM type 2 (diabetes mellitus, type 2) ([facility]) 08/15/2005 on insulin - Esophageal reflux 08/15/2005 - Fibromyalgia - Generalized osteoarthrosis, unspecified site - Heart valve replaced by other means 08/17/2008 #25, [place] Mitral valve. - Iron deficiency 08/17/2011 - Lumbago 08/15/2005 - Melena - Moderate to severe pulmonary hypertension 09/21/2016 - Myalgia and myositis, unspecified - Other and unspecified hyperlipidemia 08/15/2005 - PSVT (paroxysmal supraventricular tachycardia) ([facility]) 04/10/2011 - Sleep apnea - Thrombocytopenia ([facility]) - Tricuspid regurgitation - Unspecified asthma(493.90) 08/15/2005 - Unspecified cardiovascular disease heart cath 12/15 PAST SURGICAL HISTORY Procedure Laterality Date - CAPSULE ENDOSCOPY SMALL BOWEL 12/03/2017 - COLONOSCOP W/ OR W/O [facility] SPEC 10/17/05 - COLONOSCOP W/ OR W/O [facility] SPEC 08/25/2009 Colonoscopy - COLONOSCOP W/ OR W/O [facility] SPEC 10/17/2012 Colonoscopy - COLONOSCOPY 11/26/2017 - EGD 01/16/2005 - EGD W/O OR W/BRUSH/WASH 08/25/2009 EGD - EGD W/O OR W/BRUSH/WASH 04/05/15 EGD inpt [facility] - EGD W/O OR W/BRUSH/WASH 10/30/2016 EGD [...] fevers. Neuro: No history of TIA's, stroke, [employer] tumor, impaired sensorium, hemiplegia, paraplegia or quadriplegia. 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 COPD [...] Has SSS s/p PPM, follows with local meeting facilitator. Denies hx of VTE. No chest pain GI: Denies hx of GERD. Denies n/v/abd pain, melena,hematochezia, hematochezia. Hx of GI bleed in the past. -see HPI : No history of UTI in past 6 weeks. No history of renal failure. Not currently on or requiring dialysis. No history of symptoms or problems. 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 valve 2007. On warfarin (local meeting facilitator has done lovenox bridging in the past) - CHFpEF, compensated - SSS, s/p PPM 2008 - CKD 3 b/l 1.5-1.7 though more recent creatinine in the 1.3- 1.4 range - Anemia of Chronic disease, folowed closely by heme and does regular aranesp - DM type II, on skilled nursing insulin, no complications - Hypothyroid, on Synthroid 50 - Moderate to severe pulmonary hypertension, 2016 [...] 12.2 Absolute nRBC <0.01 k/uL <0.01 WBC, [place] 3.70 - 11.00 k/uL 3.65 (L) RBC, [place] 3.90 - 5.20 m/uL 3.20 (L) Hemoglobin, [place] 11.5 - 15.5 g/dL 9.4 (L) Hematocrit, [place] 36.0 - 46.0 % 31.2 (L) MCV, [place] 80.0 - 100.0 fL 97.5 MCH, [place] 26.0 - 34.0 pg 29.4 MCHC, [place] 30.5 - 36.0 g/dL 30.1 (L) RDW, [place] 11.5 - 15.0 % 17.5 (H) Platelet Cnt, [place] 150 - 400 k/uL 87 (L) MPV, [place] 9.0 - 12.7 fL 11.1 Absol Gran [...] using Synthroid 50 Qd - DJD, using ?[place]. - Moderate to severe pulmonary hypertension, 2017 [...] placed. - She p/w weakness to OSH ([place] [facility]), as she was too weak to stand and noted to be hypotensive and tachycardic. Hg was 4.5, and INR was 19.5, given Vitamin K and 2 units of RBCs, 2 L fluid bolus, ?80 mg IV protonix and started on a protonix gtt. ??She was then transferred to [place] [facility]?Hgb on presentation was 7.2. Patient [...] on 02/06. -Patient was transferred to the [facility]. Patient was being transitioned back to [...] with more than 50% of the total acbs-pv-olgv time of the visit in counseling / [...] done in the past and that her meeting facilitator arranges. If GI needs patient to be off couamdin, will then need to request her meeting facilitator to facilitate bridging with closer monitoring. of note, patient also closely followed by [facility]. Labs ordered to rechceck CBC, INR and BMP. Patient aware to seek medical help right away for any signs and symptoms of anemia or GI bleeding Patient's meeting facilitator is Dr. Mendoza [phone]. Device check ordered after discussion with the [facility] who recommended pre-appointment here PULMONARY: Patient is at optimal Pulmonary status for scheduled surgery / procedure. Suggest the following in the post-operative period: Continue bronchodilator medications, Aggressive bronchopulmonary hygiene and Early ambulation ENDOCRINE: DIABETES: - Initiate [facility] Guidelines for perioperative [...] and that she is followed by her meeting facilitator for it. Device check completed. Per Dr. [...] Direct number to Dr. Mendoza's office is [phone] (Kandy is Dr. Mendoza's nurse). Will forward [...] TIME W/INR Collected: 01/17/2018 Status: F Source: [place] 10:34 AM [facility] REPOSITORY Order Comment: RESULT(S) PREVIOUSLY REPORTED ON MANUAL REQUISITION DURING DOWNTIME. TYPE CODE TESTS RESULT OUT OF RANGE REFERENCE UNITS LAB L300.4150 11.7-14.9 SECONDS High PROTIME 30.8 LAB L300.4200 Normal INR 2.9 Performed By: #### L300.3900 #### [facility] [address] [place], [place] [address], [address] [place] ABS GR + CBC Collected: 01/17/2018 Status: F Source: [place] 9:28 AM [facility] REPOSITORY TYPE CODE TESTS RESULT OUT OF REFERENCE UNITS RANGE LAB WWBC 3.70-11.00 k/uL Low [place] WBC 3.65 LAB WRBC 3.90-5.20 m/uL Low [place] RBC 3.20 LAB WHGB 11.5-15.5 g/dL Low [place] Hemoglobin 9.4 LAB WHCT 36.0-46.0 % Low [place] Hematocrit 31.2 LAB WMCV 80.0-100.0 fL [place] MCV 97.5 LAB WMCH 26.0-34.0 pg [place] MCH 29.4 LAB WMCHC 30.5-36.0 g/dL Low [place] MCHC 30.1 LAB WRDW 11.5-15.0 % [place] High RDW 17.5 LAB WPLT 150-400 k/uL Low [place] Platelet Cnt 87 LAB WMPV 9.0-12.7 fL [place] MPV 11.1 Result Comment: Test performed at: [facility] [place], [address] [place] [address]. LAB ABGRAN 1.45-7.50 k/uL Absol Gran 2.98 Count CNPTOUTREACH Observed: 01/15/2018 Status: COMPLETED Source: [place] 12:00 AM [facility] REPOSITORY Patient Outreach (INTMWS) EMANI LOUIS ([id number]) 1940 F Date Time Provider Department 01/15/18 NATI GUARDADO During your visit today, we recorded the [...] using Synthroid 50 Qd - DJD, using ?[place]. - Moderate to severe pulmonary hypertension, 2016 [...] ? - She p/w weakness to OSH ([facility]), as she was too weak to stand and noted to be hypotensive and tachycardic. Hg was 4.5, and INR was 19.5, given Vitamin K and 2 units of RBCs, 2 L fluid bolus, ?80 mg IV protonix and started on a protonix gtt. ??She was then transferred to [place] [facility]?Hgb on presentation was 7.2. Patient [...] 02/06. ? Patient was transferred to the [facility]. Patient was being transitioned back to [...] Date Reviewed: 01/13/2018 Reviewed by: Mine (Rn) ANDRES Marte - Fully Assessed Reason for Visit: [facility] Follow Up [6652] Cmt: 01/09-01/13/18 [facility] Prescriptions as of 01/15/2018 Sig: TRAZODONE 150 [...] bleeding) [K92.2] INVALID FOR* Encounter Status:Closed by JAZLYN LAYNEUSER on 05/24/18 CNDS Observed: 01/13/2018 Status: COMPLETED Source: [place] 4:28 PM [facility] REPOSITORY O ID: [id number] Author: Jon Diamond (Pa) Service: Hospital Medicine Author Type: Physician Brim Blocker Type: Discharge Summaries Filed: 01/13/2018 4:39 PM Note Text: Attestation signed by Fay Fierro at 01/15/2018 12:56 PM [facility] STAFF PHYSICIAN NOTE OF PERSONAL INVOLVEMENT IN CARE I have reviewed the discharge summary obtained and documented by the physician assistant fitness manager and I personally participated in the hudson components. I have discussed the case and management of the patient's care. The following comments revise or confirm relevant hudson components of their note. IMPRESSION AND PLAN: SIGNATURE: Fay Fierro MD Pager: [phone] DATE/TIME: January 15, 2018, 12:56 PM DISCHARGE [...] using Synthroid 50 Qd - DJD, using [place]. - Moderate to severe pulmonary hypertension, 2017 [...] (APC). Clips were placed. GI radionuclide scan 8/3/17: there is normal perfusion of the tracer within the aora and common iliac arteries, homogeneous tracer uptake is seen within the liver which appears to be elarges as well as the spleen, there are no focal areas of extravasation to suggest a focal site of acute GIB at this time. EGD 10/30/16: normal Esophagus, stomach and duodenum. - She p/w weakness to OSH ([place] [facility]), as she was too weak to stand and noted to be hypotensive and tachycardic. Hg was 4.5, and INR was 19.5, given Vitamin K and 2 units of RBCs, 2 L fluid bolus, 80 mg IV protonix and started on a protonix gtt. She was then transferred to [place] [facility]?Hgb on presentation was 7.2. Patient [...] on 02/06. Patient was transferred to the [facility]. 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 Qty: 180 tablet Refills: 3 furosemide (LASIX) 20 mg 20 mg every other day. Daily Associated Diagnoses:Chronic congestive heart failure, unspecified congestive heart failure type ([facility]) cyanocobalamin (VITAMIN B-12) 1,000 mcg Take 1,000 [...] Diagnoses:Chronic obstructive pulmonary disease, unspecified COPD type ([facility]) docusate sodium (COLACE) 100 mg Take 100 mg by mouth twice daily as needed for Constipation. Refills: 0 cholecalciferol (VITAMIN D3) 1,000 Units Take 1,000 Units by mouth once daily. Future Appointments: Follow Up with PCP: Kodak Muñoz MD Future Appointments Date Time Provider Department Center 01/17/2018 9:00 AM [facility] 01/21/2018 9:15 AM Teena Sue IMPAMN INTM G Bldg 01/24/2018 8:00 AM LAB [facility] MOB LABMO[facility] [place] 01/31/2018 9:00 AM Injection [facility] [place] 02/06/2018 7:15 AM INTERVIEW J1-1 CCHMN Mn H Ancil 02/06/2018 8:30 AM Latisha [facility] 02/07/2018 8:00 AM LAB [facility] WSTR MOB LABMOB [facility] 02/14/2018 9:00 AM Injection [facility] 02/21/2018 8:00 AM LAB [facility] MOB LABMOB [facility] 05/07/2018 9:20 AM Kodak Muñoz CELSOMWS [facility] TIME OF CARE: Discharge Management: I personally spent greater than 30 minutes involved in the discharge management of this patient. Discharge planning of > 30 minutes includes time spent on review of hospital medical records/admission history, discussing discharge planning with nursing/consulting groups/case management, and with patient education, documentation, examination, and personally relaying discharge instructions. SIGNATURE: Jon Diamond PA-C PAGER: [phone] DATE: January 13, 2018 TIME: 4:28 PM CASE MANAGEM Observed: 01/13/2018 Status: COMPLETED Source: [place] 2:45 PM [facility] REPOSITORY HNO ID: [id number] Author: Louise Pinto Service: Care Management Author Type: Hog Room Supervisor Type: Care Mgt Progress Note Filed: 01/13/2018 2:46 PM Note Text: CARE MANAGEMENT PROGRESS NOTE SERVICE DATE: 01/13/2018 SERVICE TIME: 1:46 LOS: 4 days IM letter given to patient on 01/13/2018. SIGNATURE: Louise Pinto, PATIENT NAME: Emani Louis DATE: January 13, 2018 TIME: 2:45 PM PAGER/CONTACT #: [phone] TYPE AND SCREEN Collected: 01/13/2018 Status: F Source: [place] 1:27 PM [facility] REPOSITORY TYPE CODE TESTS RESULT OUT OF REFERENCE UNITS RANGE LAB %ABR A ABO/RH(D) POSITIVE LAB % Antibody NEG Screen Performed By: #### TSCR #### [facility] [address] [place] [address] PLAN OF CARE Observed: 01/13/2018 Status: COMPLETED Source: [place] 12:04 PM [facility] REPOSITORY HNO ID: [id number] Author: Jon Diamond (Pa) Service: Hospital Medicine Author Type: Physician Brim Blocker Type: Plan of Care Filed: 01/13/2018 12:06 [...] of new infection Jon Diamond PA-C P: [id number] HEMATOCRIT Collected: 01/13/2018 Status: F Source: [place] 11:32 AM [facility] REPOSITORY TYPE CODE TESTS RESULT OUT OF REFERENCE UNITS RANGE LAB HCT 36.0-46.0 % Low Hematocrit 25.6 Performed By: #### HCT, HGB #### [facility] [address] [place], [place] [address] HEMOGLOBIN Collected: 01/13/2018 Status: F Source: [place] 11:32 AM [facility] REPOSITORY TYPE CODE TESTS RESULT OUT OF REFERENCE UNITS RANGE LAB HGB 11.5-15.5 g/dL Low Hemoglobin 7.9 Performed By: #### HCT, HGB #### [facility] [address] [place], [place] [address] PTT,ANTICOAG THERAPY Collected: 01/13/2018 Status: F Source: [place] 11:29 AM [facility] REPOSITORY TYPE CODE TESTS RESULT OUT [...] laboratory APTT reagent in use throughout the [facility]. Performed By: #### PTTAC #### [facility] [address] [place], [place] [address] PROGRESS Observed: 01/13/2018 Status: COMPLETED Source: [place] 8:00 AM [facility] REPOSITORY HNO ID: [id number] Author: Jessie Montero) ANDRES Galan Service: (none) Author Type: Registered Nurse Type: Progress Notes Filed: 01/13/2018 8:01 AM Note Text: Nursing Progress Note Vital High Scaler Assessment Note Patient Name: Emani Louis Patient Location: H081 003/H081-04 Patient Vitals in the past 4 hrs: 01/13/18 0730, Temp:36.6 ?C (97.9 ?F), Temp src:Oral, Pulse:100, Resp:24, SpO2:94 % 01/13/18 0600, BP:88/52, Temp:36.6 ?C (97.9 ?F), Temp src:Oral, Pulse:92, Resp:24, SpO2:93 % Status Change Related to: Respiratory;Other (sepsis alert ) Issues (See Nursing Clinical Assessment For Details) The Following People Were Notified: Physician Brim Blocker Caregiver/Provider: Jon Diamond See Documentation Related to: Oxygen Therapy;Respiratory Other;Continuous Monitoring Additional Comments : This note was completed by: Jessie Galan RN PROTIME Collected: 01/13/2018 Status: F Source: [place] 4:49 AM [facility] REPOSITORY TYPE CODE TESTS RESULT OUT OF RANGE REFERENCE UNITS LAB PSEC 9.7-13.0 sec High PT Sec 24.6 LAB INR 0.9-1.3 High PT INR 2.5 Result Comment: Vitamin K Antagonist (VKA) Therapeutic Range: INR 2 to 3 (Target INR of 2.5) Note: For patients treated with VKA drugs, such as warfarin, the [place] [employer] 2012 Guideline recommends [...] Chest 2012, 141:7S-47S Phoebe RA, et al. [facility] 2017, 70: 252-289 Performed By: #### PT, CBC, CMP, MG1 #### [facility] [address] [place], [place] [address] CBC Collected: 01/13/2018 Status: F Source: [place] 4:49 AM [facility] REPOSITORY TYPE CODE TESTS RESULT OUT [...] By: #### PT, CBC, CMP, MG1 #### [facility] [address] [place], [place] [address] COMP METABOLIC PANEL Collected: 01/13/2018 Status: F Source: [place] 4:49 AM [facility] REPOSITORY TYPE CODE TESTS RESULT OUT [...] mg/dL Glucose High 118 Result Comment: The [place] [employer] Association (ADA) provides guidance for cutoff [...] Standards of Medical Care in Diabetes 2016, [place] [employer]. Diabetes Care. 2016.39(Suppl 1). LAB [...] By: #### PT, CBC, CMP, MG1 #### [facility] [address] [place], [place] [address] MAGNESIUM Collected: 01/13/2018 Status: F Source: [place] 4:49 AM [facility] REPOSITORY TYPE CODE TESTS RESULT OUT OF REFERENCE UNITS RANGE LAB MG 1.7-2.3 mg/dL Magnesium 1.9 Performed By: #### PT, CBC, CMP, MG1 #### [facility] [address] [place], [place] [address] PTT,ANTICOAG THERAPY Collected: 01/13/2018 Status: F Source: [place] 4:49 AM [facility] REPOSITORY TYPE CODE TESTS RESULT OUT [...] laboratory APTT reagent in use throughout the [facility]. Performed By: #### PTTAC #### [place] [address] [place] [address] PTT,ANTICOAG THERAPY Collected: 01/12/2018 Status: F Source: [place] 10:00 PM [facility] REPOSITORY TYPE CODE TESTS RESULT OUT [...] laboratory APTT reagent in use throughout the [facility]. Performed By: #### PTTAC #### [place] [address] [place], [place] [id number] CBC Collected: 01/12/2018 Status: F Source: [place] 10:00 PM [facility] REPOSITORY TYPE CODE TESTS RESULT OUT [...] nRBC <0.01 Performed By: #### CBC #### [facility] [address] [place], [place] [address] PROGRESS Observed: 01/12/2018 Status: COMPLETED Source: [place] 1:39 PM [facility] REPOSITORY HNO ID: [id number] Author: Jon Diamond (Pa) Service: Hospital Medicine Author Type: Physician Brim Blocker Type: Progress Notes Filed: 01/12/2018 1:56 PM Note Text: HOSPITAL MEDICINE PROGRESS NOTE NIGHT AND WEEKEND COVERAGE: Days: 7:30am - 5:30pm, please page me for patient issues. Nights: 5:30pm - 7:30am, please page GIM overnight coverage pager [phone] SUBJECTIVE Interval HPI: No acute overnight events.Patient [...] 12, 2018 TIME: 1:39 PM PAGER/CONTACT #: [phone] CBC Collected: 01/12/2018 Status: F Source: [place] 1:24 PM [facility] REPOSITORY TYPE CODE TESTS RESULT OUT [...] nRBC <0.01 Performed By: #### CBC #### [facility] [address] [place], [place] [address] PTT,ANTICOAG THERAPY Collected: 01/12/2018 Status: F Source: [place] 1:24 PM [facility] REPOSITORY TYPE CODE TESTS RESULT OUT [...] laboratory APTT reagent in use throughout the [facility]. Performed By: #### PTTAC #### [facility] [address] [place], [place] [address] PROTIME Collected: 01/12/2018 Status: F Source: [place] 5:25 AM [facility] REPOSITORY TYPE CODE TESTS RESULT OUT OF RANGE REFERENCE UNITS LAB PSEC 9.7-13.0 sec High PT Sec 17.8 LAB INR 0.9-1.3 High PT INR 1.8 Result Comment: Vitamin K Antagonist (VKA) Therapeutic Range: INR 2 to 3 (Target INR of 2.5) Note: For patients treated with VKA drugs, such as warfarin, the [place] [employer] 2012 Guideline recommends [...] By: #### PT, PTTAC, CMP, MG1 #### [facility] [address] [place], [place] [address] PTT,ANTICOAG THERAPY Collected: 01/12/2018 Status: F Source: [place] 5:25 AM [facility] REPOSITORY TYPE CODE TESTS RESULT OUT [...] laboratory APTT reagent in use throughout the [facility]. Performed By: #### PT, PTTAC, CMP, MG1 #### [facility] [address] [place], [place] [address] COMP METABOLIC PANEL Collected: 01/12/2018 Status: F Source: [place] 5:25 AM [facility] REPOSITORY TYPE CODE TESTS RESULT OUT OF [...] mg/dL Glucose High 150 Result Comment: The [place] Diabetes [employer] (ADA) provides guidance for cutoff [...] Standards of Medical Care in Diabetes 2016, [place] [employer]. Diabetes Care. 2016.39(Suppl 1). LAB [...] By: #### PT, PTTAC, CMP, MG1 #### [facility] [address] [place], [place] [address] MAGNESIUM Collected: 01/12/2018 Status: F Source: [place] 5:25 AM [facility] REPOSITORY TYPE CODE TESTS RESULT OUT OF REFERENCE UNITS RANGE LAB MG 1.7-2.3 mg/dL Magnesium 2.0 Performed By: #### PT, PTTAC, CMP, MG1 #### [facility] [address] [id number] CBC Collected: 01/12/2018 Status: F Source: [place] 5:25 AM [facility] REPOSITORY TYPE CODE TESTS RESULT OUT [...] nRBC <0.01 Performed By: #### CBC #### [facility] [address] [place], [place] [address] PROGRESS Observed: 01/11/2018 Status: COMPLETED Source: [place] 5:38 PM [facility] REPOSITORY HNO ID: [id number] Author: Lamont Carr Service: Hospital Medicine Author Type: Physician Type: Progress Notes Filed: 01/11/2018 9:09 PM Note Text: DEPARTMENT OF HOSPITAL MEDICINE: MICU TRANSFER NOTE For issues overnight, please page [phone]. After 7 AM, please page primary GIM [...] BOWEL 12/03/2017 - COLONOSCOP W/ OR W/O [facility] SPEC 10/17/05 - COLONOSCOP W/ OR W/O [facility] SPEC 08/25/2009 Colonoscopy - COLONOSCOP W/ OR W/O [facility] SPEC 10/17/2012 Colonoscopy - COLONOSCOPY 11/26/2017 - EGD 01/16/2005 - EGD W/O OR W/BRUSH/WASH 08/25/2009 EGD - EGD W/O [facility]/WASH 10/30/2016 EGD [...] January 11, 2018 TIME: 5:38 PM PAGER: [phone] For issues overnight, please page [phone]. After 7 AM, please page primary GIM team. FREE T4 Collected: 01/11/2018 Status: F Source: [place] 4:55 PM [facility] REPOSITORY TYPE CODE TESTS RESULT OUT OF RANGE REFERENCE UNITS LAB FT4 0.9-1.7 ng/dL Free T4 1.2 Performed By: #### FT4 #### [facility] [address] [place], [place] [address] PLAN OF CARE Observed: 01/11/2018 Status: COMPLETED Source: [place] 4:42 PM [facility] REPOSITORY HNO ID: [id number] Author: Lamont Carr Service: Hospital Medicine Author Type: Physician Type: Plan of Care Filed: 01/11/2018 4:43 PM Note Text: Patient chronically hypotensive, please assess for change in clinical status (altered mental status, chest pain, worsening shortness of breath, cold extremities etc.) when contacting primary team with vitals. Lamont Carr MD 4:43 PM January 11, 2018 NURSING PROG Observed: 01/11/2018 Status: COMPLETED Source: [place] 3:39 PM [facility] REPOSITORY HNO ID: [id number] Author: Lois GómezRn) ANDRES Gil Service: (none) Author Type: Registered Nurse Type: Nursing Progress Note Filed: 01/11/2018 4:29 PM Note Text: Nursing Progress Note Patient Name: Emani Louis Patient Location: [place] [address] Transfer Note: Actions Taken: 1458 REBEAMER notified me that patient has a bed in H81-04 1511 HGB resulted (team wanted result prior to transfer) 1512 Paged Team, Requested orders. 1514 Called Report. Spoke to Latosha. Explained low BP's along with patient's histroy and current orders for BP of 60/30 is satisfactory. 1538 Paged Trainer Team, Requested orders. 1615 Spoke with Yumiko/ ANM regarding orders (unable to see transfer orders. I only have order to transfer Yumiko/ANM stated its ok to transfer patient. 1620 Patient transported to H81 via bed by transporter. Patient transferred H81-04 in stable condition. Personal belongings with patient. This note was completed by: Lois Gil RN PLAN OF CARE Observed: 01/11/2018 Status: COMPLETED Source: [place] 3:19 PM [facility] REPOSITORY HNO ID: [id number] Author: Nicole Orantes Service: Critical Care Author Type: Resident Type: Plan of Care Filed: 01/11/2018 3:37 PM Note Text: MICU TRANSFER TO REGULAR NURSING FLOOR Pt seen and examined on rounds with MICU staff and is stable to transfer to [facility]. Signout given to Med QB Pt going to bed H81-4 Hudson Issues: See hudson issues documented in the previous progress note for the treatment plan. Orders signed and held in [facility]. SIGNATURE: Nicole Orantes DO PATIENT NAME: Emani Louis DATE: January 11, 2018 TIME: 3:19 PM PAGER/CONTACT #: [phone] CBC Collected: 01/11/2018 Status: F Source: [place] 2:21 PM [facility] REPOSITORY TYPE CODE TESTS RESULT OUT [...] nRBC <0.01 Performed By: #### CBC #### [facility] [address] [place], [place] [address] CBC Collected: 01/11/2018 Status: F Source: [place] 2:16 PM [facility] REPOSITORY TYPE CODE TESTS RESULT OUT [...] nRBC <0.01 Performed By: #### CBC #### [place] [address] [place], [place] [address] CBC Collected: 01/11/2018 Status: F Source: [place] 12:00 PM [facility] REPOSITORY TYPE CODE TESTS RESULT OUT OF REFERENCE UNITS RANGE LAB WBC 3.70-11.00 k/uL Unable WBC to assay. Specimen improperly collected/handle d. Result Comment: Specimen collected in wrong container type. [id number] Account Credited Performed By: #### CBC #### [address] [place] [place], [place] [address] PROTIME Collected: 01/11/2018 Status: F Source: [place] 12:00 PM [facility] REPOSITORY TYPE CODE TESTS RESULT OUT OF RANGE REFERENCE UNITS LAB PSEC 9.7-13.0 sec High PT Sec 15.9 LAB INR 0.9-1.3 High PT INR 1.6 Result Comment: Vitamin K Antagonist (VKA) Therapeutic Range: INR 2 to 3 (Target INR of 2.5) Note: For patients treated with VKA drugs, such as warfarin, the [place] [employer] 2012 Guideline recommends [...] Chest 2012, 141:7S-47S Phoebe RA, et al. [facility] 2017, 70: 252-289 Performed By: #### PT #### [facility] [address] [place], [place] [address] PROGRESS Observed: 01/11/2018 Status: COMPLETED Source: [place] 7:36 AM [facility] REPOSITORY O ID: [id number] Author: Melania Almanza Service: Pulmonary Disease Author [...] twice a day Signature: Melania Almanza MD [facility] STAFF PHYSICIAN NOTE OF PERSONAL INVOLVEMENT IN CARE I have reviewed the progress note obtained and documented by the fellow/resident, and I personally participated in the hudson components. I have discussed the case and management of the patient's care. The comments in my note revise or confirm relevant hudson components of the fellow/resident note. SIGNATURE: Melania Almanza MD [facility] PAGER:[phone] PROGRESS Observed: 01/11/2018 Status: COMPLETED Source: [place] 7:05 AM [facility] REPOSITORY [facility] ID: [id number] Author: Nicole Orantes Service: Critical Care Author Type: Resident Type: Progress Notes Filed: 01/11/2018 8:45 AM Note Text: Attestation signed by Melania Almanza at 01/11/2018 11:35 AM [facility] STAFF PHYSICIAN NOTE OF PERSONAL INVOLVEMENT IN CARE I have reviewed the progress note obtained and documented by the fellow/resident, and I personally participated in the hudosn components. I have discussed the case and management of the patient's care. The comments in my separate note revise or confirm relevant hudson components of the fellow/resident note. SIGNATURE: Melania Almanza MD [facility] PAGER:[phone] Medical ICU Progress Note MICU Team: Evaluation [...] 3 with hx of ATN and MAX 2009 - b/l cr 1.5-1.8 - Cr today [...] Lines, Drains, and Airways Line Peripheral 01/09/18 5136 Admission to Hospital Short Right Arm 20 Gauge 2 days Peripheral 01/09/18 8605 Short Left Antecubital 20 Gauge 2 days [...] Contact: Latosha Olivia Mobile Relation: Daughter Nicole CastilloohitDO, PGY-1 01/11/2018 7:13 AM Pager [phone] CBC Collected: 01/11/2018 Status: F Source: [place] 6:08 AM [facility] REPOSITORY TYPE CODE TESTS RESULT OUT [...] nRBC <0.01 Performed By: #### CBC #### [facility] [address] [place], [place] [address] APTT Collected: 01/10/2018 Status: F Source: [place] 11:35 PM [facility] REPOSITORY TYPE CODE TESTS RESULT OUT [...] laboratory APTT reagent in use throughout the [facility]. Performed By: #### PTT, PT, CMP, MG1, PHOS, CBC #### [facility] [address] [place], [place] [address] PROTIME Collected: 01/10/2018 Status: F Source: [place] 11:35 PM [facility] REPOSITORY TYPE CODE TESTS RESULT OUT OF RANGE REFERENCE UNITS LAB PSEC 9.7-13.0 sec High PT Sec 14.6 LAB INR 0.9-1.3 High PT INR 1.4 Result Comment: Vitamin K Antagonist (VKA) Therapeutic Range: INR 2 to 3 (Target INR of 2.5) Note: For patients treated with VKA drugs, such as warfarin, the [place] [employer] 2012 Guideline recommends [...] Chest 2012, 141:7S-47S Phoebe RA, et al. [facility] 2017, 70: 252-289 Performed By: #### PTT, PT, CMP, MG1, PHOS, CBC #### [facility] [address] [place], [place] [address] COMP METABOLIC PANEL Collected: 01/10/2018 Status: F Source: [place] 11:35 PM [facility] REPOSITORY TYPE CODE TESTS RESULT OUT [...] mg/dL Glucose High 117 Result Comment: The [place] Diabetes Association (ADA) provides guidance for cutoff [...] Standards of Medical Care in Diabetes 2016, [place] [employer]. Diabetes Care. 2016.39(Suppl 1). LAB [...] PTT, PT, CMP, MG1, PHOS, CBC #### [facility] [address] [place] [id number] MAGNESIUM Collected: 01/10/2018 Status: F Source: [place] 11:35 PM [facility] REPOSITORY TYPE CODE TESTS RESULT OUT OF REFERENCE UNITS RANGE LAB MG 1.7-2.3 mg/dL Magnesium 2.1 Performed By: #### PTT, PT, CMP, MG1, PHOS, CBC #### [address] [place] [place], [place] [address] PHOSPHORUS Collected: 01/10/2018 Status: F Source: [place] 11:35 PM [facility] REPOSITORY TYPE CODE TESTS RESULT OUT OF REFERENCE UNITS RANGE LAB PHOS 2.7-4.8 mg/dL Low Phosphorus 1.8 Performed By: #### PTT, PT, CMP, MG1, PHOS, CBC #### [address] [address] CBC Collected: 01/10/2018 Status: F Source: [place] 11:35 PM [facility] REPOSITORY TYPE CODE TESTS RESULT OUT [...] PTT, PT, CMP, MG1, PHOS, CBC #### [address] [place] [place], [place] [address] CBC Collected: 01/10/2018 Status: F Source: [place] 5:40 PM [facility] REPOSITORY TYPE CODE TESTS RESULT OUT [...] nRBC <0.01 Performed By: #### CBC #### [facility] [address] [place], [place] [address] PTT,ANTICOAG THERAPY Collected: 01/10/2018 Status: F Source: [place] 1:08 PM [facility] REPOSITORY TYPE CODE TESTS RESULT OUT [...] laboratory APTT reagent in use throughout the [facility]. Performed By: #### PTTAC #### [facility] [address] [place], [place] [address] CBC Collected: 01/10/2018 Status: F Source: [place] 11:50 AM [facility] REPOSITORY TYPE CODE TESTS RESULT OUT [...] nRBC <0.01 Performed By: #### CBC #### [facility] [address] [place] [address] PROGRESS Observed: 01/10/2018 Status: COMPLETED Source: [place] 7:51 AM [facility] REPOSITORY HNO ID: [id number] Author: Melania Almanza Service: Pulmonary Disease Author Type: Physician Type: Progress Notes Filed: 01/10/2018 1:40 PM Note Text: MICU Staff WBC 5.91, afebrile Hemoglobin 8.3 (down from 9.2) with dark BM PTT 68.9 Platelets decreased to 86 BUN/creatinine improving at 21/1.28 Cardiac echo showed normal ejection fraction 58.5%, [...] twice a day Signature: Melania Almanza MD [facility] STAFF PHYSICIAN NOTE OF PERSONAL INVOLVEMENT IN CARE I have reviewed the progress note obtained and documented by the fellow/resident, and I personally participated in the hudson components. I have discussed the case and management of the patient's care. The comments in my note revise or confirm relevant hudosn components of the fellow/resident note. SIGNATURE: Melania Almanza MD [facility] PAGER:[phone] PROGRESS Observed: 01/10/2018 Status: COMPLETED Source: [place] 7:13 AM [facility] REPOSITORY O ID: [id number] Author: Nicole Orantes Service: Critical Care Author Type: Resident Type: Progress Notes Filed: 01/10/2018 9:58 AM Note Text: Attestation signed by Melania Almanza at 01/10/2018 1:39 PM [facility] STAFF PHYSICIAN NOTE OF PERSONAL INVOLVEMENT IN CARE I have reviewed the progress note obtained and documented by the fellow/resident, and I personally participated in the hudson components. I have discussed the case and management of the patient's care. The comments in my separate note revise or confirm relevant hudson components of the fellow/resident note. SIGNATURE: Melania Almanza MD [facility] PAGER:[phone] Medical ICU Progress Note MICU Team: Evaluation [...] None Lines/Drains/Outputs Lines, Drains, and Airways Line [facility] 01/09/18 0246 Admission to Hospital Short Right Arm 20 Gauge 1 day [facility] 01/09/18 0445 Short Left Antecubital 20 Gauge [...] Louis Mobile Relation: Spouse Secondary Emergency Contact: SegunLatosha Mobile Relation: Daughter Nicole Orantes DO, PGY-1 01/10/18 7:13 AM Pager [phone] PTT,ANTICOAG THERAPY Collected: 01/10/2018 Status: F Source: [place] 6:53 AM [facility] REPOSITORY TYPE CODE TESTS RESULT OUT [...] laboratory APTT reagent in use throughout the [facility]. Performed By: #### PTTAC, PT #### [facility] [email or web address] [place], [place] [address] PROTIME Collected: 01/10/2018 Status: F Source: [place] 6:53 AM [facility] REPOSITORY TYPE CODE TESTS RESULT OUT OF RANGE REFERENCE UNITS LAB PSEC 9.7-13.0 sec PT Sec 13.0 LAB INR 0.9-1.3 PT INR 1.3 Result Comment: Vitamin K Antagonist (VKA) Therapeutic Range: INR 2 to 3 (Target INR of 2.5) Note: For patients treated with VKA drugs, such as warfarin, the [place] [employer] 2012 Guideline recommends [...] Chest 2012, 141:7S-47S Phoebe RA et al. [facility] 2017, 70: 252-289 Performed By: #### PTTAC, PT #### [facility] [email or web address] [place], [place] [address] CBC AND DIFFERENTIAL Collected: 01/10/2018 Status: F Source: [place] 4:59 AM [facility] REPOSITORY TYPE CODE TESTS RESULT OUT [...] Abs Low Lymph 0.46 LAB AMONO % [place]% 5.8 LAB AAMONO <0.87 k/uL Abs [place] 0.34 LAB AEOS % Eosin% 0.3 LAB AAEOS <0.46 k/uL Abs Eosin <0.03 LAB ABASO % Baso% 0.3 LAB AABASO <0.11 k/uL Abs Baso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 qbo-gq-vpctot expenses for my prescription medication: Disagree completely [...] 08, 2018 TIME: 12:27 PM CONTACT #: [id number] HGB Collected: 01/08/2018 Status: F Source: [facility] 11:50 AM HEALTH SYSTEM REPOSITORY TYPE CODE TESTS RESULT OUT OF RANGE REFERENCE UNITS LAB HGBI(LOINC) 11.2-15.7 g/dL Low Hgb 9.7 Performed By: #### HGBI #### [place] [address] GLUCOSE METER Collected: 01/08/2018 Status: F Source: [facility] 11:47 AM HEALTH SYSTEM REPOSITORY TYPE CODE TESTS RESULT OUT OF REFERENCE UNITS RANGE LAB GLUBL(LOINC 70-99 mg/dL ) High Glucose Meter 146 Performed By: #### GLMET #### [facility] [address] [id number] CONSULT Observed: 01/08/2018 Status: COMPLETED Source: [place] 10:17 AM [facility] OTHER [facility]AMP[facility] REPOSITORY HNO ID: [id number] Author: Ankita (Personal Lines Account Manager) Colin Service: Gastroenterology Author Type: Nurse Specialist [...] balloon enteroscopy on February 06, 2018 at [facility]. Hgb on presentation was 7.2. She had [...] BOWEL 12/03/2017 - COLONOSCOP W/ OR W/O [facility] SPEC 10/17/05 - COLONOSCOP W/ OR W/O [facility] SPEC 08/25/2009 Colonoscopy - COLONOSCOP W/ OR W/O [facility] SPEC 10/17/2012 Colonoscopy - COLONOSCOPY 11/26/2017 - EGD 01/16/2005 - EGD W/O OR W/BRUSH/WASH 08/25/2009 EGD - EGD W/O [facility] 10/30/2016 EGD - [facility] PACER XVENOUS ATRIAL Perm pacemaker insert - [...] needles, DISPOSABLE, (PEN NEEDLE) 31 gauge x 516 ndle USE ONE NEEDLE FOR EACH DOSE [...] scheduled double balloon enteroscopy on 02/06/2018 at [facility]. - Monitor Hgb/Hct - transfuse as needed - Monitor BMs for bleeding - Continue Protonix. - Consider repeat EGD due to melena. If negative may need to transfer to [facility] for double balloon enteroscopy. Will discuss with Dr. French GI will continue to follow Thank you for the consult ADDENDUM: Discussed with Dr. French. If Hgb remains stable would recommend transfer to [facility] for double balloon enteroscopy SIGNATURE: Ankita Shaw APRN.[employer] PATIENT NAME: Emani Louis DATE: January 08, 2018 TIME: 10:17 AM PAGER/CONTACT #: [phone] RBC PRODUCTS Collected: 01/08/2018 Status: F Source: [facility] 8:32 AM HEALTH SYSTEM REPOSITORY TYPE CODE TESTS RESULT OUT OF REFERENCE UNITS RANGE LAB UNIT1(LOINC ) Xmatch Unit 1 see below Result Comment: Compatible LAB UNIT2(LOINC) Xmatch Unit 2 see below Result Comment: Compatible Performed By: #### RBCPS #### [place] [address] PROGRESS Observed: 01/08/2018 Status: COMPLETED Source: [place] 8:00 AM [facility] OTHER [facility]AMPUS REPOSITORY HNO ID: [id number] Author: Fransisco Alvarenga Service: Critical Care Author [...] has evolved since being volume resuscitated at [facility]. Denies abdominal pain, cramps, nausea or vomiting. [...] hyperlipidemia 08/15/2005 - PSVT (paroxysmal supraventricular tachycardia) ([facility]) 04/10/2011 - Sleep apnea - Type II or unspecified type diabetes mellitus without mention of complication, not stated as uncontrolled 08/15/2005 - Unspecified asthma(493.90) 08/15/2005 - Unspecified cardiovascular disease heart cath 12/15 PAST SURGICAL HISTORY Procedure Laterality Date - CAPSULE ENDOSCOPY SMALL BOWEL 12/03/2017 - COLONOSCOP W/ OR W/O [facility] SPEC 10/17/05 - COLONOSCOP W/ OR W/O [facility] SPEC 08/25/2009 Colonoscopy - COLONOSCOP W/ OR W/O [facility] SPEC 10/17/2012 Colonoscopy - COLONOSCOPY 11/26/2017 - EGD 01/16/2005 - EGD W/O OR W/BRUSH/WASH 08/25/2009 EGD - EGD W/O OR W/BRUSH/WASH 04/05/15 EGD inpt [facility] - EGD W/O OR W/BRUSH/WASH 10/30/2016 EGD [...] H Lines, Drains, and Airways Line Peripheral 01/07/182299 Admission to Hospital Short Left Forearm 22 [...] DATE: January 08, 2018 TIME: 8:00 AM [facility] STAFF PHYSICIAN NOTE OF PERSONAL INVOLVEMENT IN [...] 01/08/2018 HEMOGRAM/DIFF Collected: 01/08/2018 Status: F Source: [facility] 6:40 AM HEALTH SYSTEM REPOSITORY TYPE CODE [...] 0.60 LAB MONON(LOIN 0.27-0.70 thou/cmm C) Abs. [place] 0.32 LAB EOSN(LOINC 0.00-0.31 thou/cmm ) Abs. Eosin 0.07 LAB BASON(LOIN 0.01-0.08 thou/cmm C) Abs. Baso 0.01 Performed By: #### CBCD1 #### [place] [address] BASIC PANEL Collected: 01/08/2018 Status: F Source: [facility] 6:40 AM HEALTH SYSTEM REPOSITORY TYPE CODE [...] Gap 7 Performed By: #### P8 #### [place] [address] MDRD GFR Collected: 01/08/2018 Status: F Source: [facility] 6:40 AM HEALTH SYSTEM REPOSITORY TYPE CODE TESTS RESULT OUT OF RANGE REFERENCE UNITS LAB GFRFN(LOINC >60mL/min/1.73m ) 2 eGFR 35.76 Result Comment: If the patient is , multiply the result by 1.210. Performed By: #### GFR #### [place] [address] PROTIME Collected: 01/08/2018 Status: F Source: [facility] 6:40 AM HEALTH SYSTEM REPOSITORY TYPE CODE TESTS RESULT OUT OF REFERENCE UNITS RANGE LAB PTI(LOINC) 9.3-11.9 sec Prothrombin High Time 13.5 LAB INR(LOINC) INR 1.33 Result Comment: Standard Therapy 2.0-3.0 High Dose 2.5-3.5 Performed By: #### PT #### [place] [address] GLUCOSE METER Collected: 01/08/2018 Status: F Source: [facility] 5:30 AM HEALTH SYSTEM REPOSITORY TYPE CODE TESTS RESULT OUT OF REFERENCE UNITS RANGE LAB GLUBL(LOINC 70-99 mg/dL ) High Glucose Meter 173 Performed By: #### GLMET #### [place] [address] RBC PRODUCTS Collected: 01/08/2018 Status: F Source: [facility] 5:21 AM HEALTH SYSTEM REPOSITORY TYPE CODE TESTS RESULT OUT OF REFERENCE UNITS RANGE LAB UNIT1(LOINC ) Xmatch Unit 1 see below Result Comment: Compatible Performed By: #### RBCPS #### [place] [address] TYPE AND SCREEN Collected: 01/08/2018 Status: F Source: [facility] 1:20 AM HEALTH SYSTEM REPOSITORY TYPE CODE TESTS RESULT OUT OF REFERENCE UNITS RANGE LAB ABO(LOINC) A ABO Group LAB DRILLER PORTABLE(LOINC ) RH Type Positive LAB ABSCR(LOIN C) Antibody NEGATIVE Screen LAB BBCMT(LOIN C) Comment See Below Result Comment: Screen &/or Xmatch expires in 3 days at 12 midnight. Redraw patient at that time. Performed By: #### T&S #### [place] [address] FROZEN PLASMA Collected: 01/08/2018 Status: F Source: [facility] (THAWED PLASMA) 1:02 AM HEALTH SYSTEM REPOSITORY TYPE CODE TESTS RESULT OUT OF RANGE REFERENCE UNITS LAB FFP1(LOINC) FFP unit Done 1 LAB FFP2(LOINC) FFP unit Done 2 Performed By: #### FFPXS #### [place] [address] GLUCOSE METER Collected: 01/08/2018 Status: F Source: [facility] 12:56 AM HEALTH SYSTEM REPOSITORY TYPE CODE TESTS RESULT OUT OF REFERENCE UNITS RANGE LAB GLUBL(LOINC 70-99 mg/dL ) High Glucose Meter 248 Performed By: #### GLMET #### [facility] [address] [place] [address] Observed: 01/08/2018 Status: F Source: [facility] MRSA SCREEN 12:40 AM HEALTH SYSTEM REPOSITORY Test performed at [facility] No MRSA detected. Performed By: #### MRSA #### [facility] [address] [place] [address] HGB Collected: 01/08/2018 Status: F Source: [facility] 12:10 AM HEALTH SYSTEM REPOSITORY TYPE CODE TESTS RESULT OUT OF RANGE REFERENCE UNITS LAB HGBI(LOINC) 11.2-15.7 g/dL Low Hgb 7.2 Performed By: #### HGBI #### [place] [address] PROTIME Collected: 01/08/2018 Status: F Source: [facility] 12:10 AM HEALTH SYSTEM REPOSITORY TYPE CODE TESTS RESULT OUT OF REFERENCE UNITS RANGE LAB PTI(LOINC) 9.3-11.9 sec Prothrombin High Time 32.8 LAB INR(LOINC) INR 3.45 Result Comment: Standard Therapy 2.0-3.0 High Dose 2.5-3.5 Performed By: #### PT #### [place] [address] EMERGENCY DEPARTMENT Observed: 01/07/2018 Status: F Source: [place] SUMMARY 11:27 PM [facility] REPOSITORY [facility] Medical Records Department [address] [place] [id number] Emergency Department Summary 01/07/18 2156 MR#: [id number] Acct: [id number] Name: EMANI LOUIS Rep #: [id number] : 1940 77 From: Jessie Boothe MD [...] pending. I did discuss the patient with Dr.Kakarala Aristides who did accept the patient in transfer. [...] will be transferred in critical condition to [facility] for continued therapy of symptomatic GI bleed and supratherapeutic INR. 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 Treatment Plan: [] Disposition: Transfer Impression:. Acute GI bleed 2. Hemorrhagic shock 3. Supratherapeutic INR This note was generated with [employer] dictation software. It may contain incorrect words, [...] problems, contact your Primary Care Provider. Call [facility] ([phone]) or report to the closest Emergency Room. Call 911 if necessary. 01/07/18 3014 <Electronically signed by Jessie Boothe MD> Date Jessie Boothe MD Cosigner Signature (If Indicated): Date CC: Kodak Muñoz MD HISTORY PHYSICAL Observed: 01/07/2018 Status: COMPLETED Source: [place] 10:52 PM [facility]AMPUS REPOSITORY O ID: [id number] Author: Dequan Hartley Service: Critical Care Author Type: Resident Type: HANDP Filed: 01/08/2018 12:42 AM Note Text: Attestation signed by Hema Gorman at 01/08/2018 12:54 AM [facility] STAFF PHYSICIAN NOTE OF PERSONAL INVOLVEMENT IN [...] of care, medical plan for the day, client support consultant recommendations, medical disposition and current medical [...] services: 35 minutes. SIGNATURE: Hema Gorman MD [facility] PAGER:[phone] DATE of SERVICE: January 08, 2018 TIME [...] hypotensive and tachycardic. She was transferred from [facility] as she presented their complaining [...] had endoscopy about 6 month ago at [place] with no source of bleeding at that [...] hyperlipidemia 08/15/2005 - PSVT (paroxysmal supraventricular tachycardia) ([facility]) 04/10/2011 - Sleep apnea - Type II [...] EGD W/O OR W/BRUSH/WASH 04/05/15 EGD inpt [facility] - EGD W/O OR W/BRUSH/WASH 10/30/2016 EGD [...] as the patient got vitamin k in [facility] - she got 2 liters boluses of [...] LACTIC ACID Collected: 01/07/2018 Status: F Source: [place] 8:31 PM [facility] REPOSITORY Order Comment: Yes/No query for Sepsis Lactate Rule Y TYPE CODE TESTS RESULT OUT OF RANGE REFERENCE UNITS LAB L503.6005 0.4-2.0 mmol/L Normal LACTIC ACID 1.6 Performed By: #### L503.6005 #### [facility] [address] [place], [place], [address] PROTHROMBIN TIME W/INR Collected: 01/07/2018 Status: F Source: [place] 8:31 PM [facility] REPOSITORY TYPE CODE TESTS RESULT OUT OF REFERENCE UNITS RANGE LAB L300.4150 11.7-14.9 SECONDS High PROTIME > 120.0 LAB L300.4200 High alert INR > 19.5 Result Comment: CRITICAL VALUE VERIFIED. CALLED TO Piyush EDGE 01/07/181 Mary Quinonez. RESULTS READ BACK BY SAME. Performed By: #### L300.3900 #### [facility] [address] [facility]. [place], [place], [address] CBC W/DIFF, AUTOMATED Collected: 01/07/2018 Status: C Source: [place] 6:05 PM [facility] REPOSITORY TYPE CODE TESTS RESULT OUT OF RANGE REFERENCE UNITS LAB L100.1000 4.4-11.0 K/mm3 Normal WBC 10.5 LAB L100.1200 4.2-5.4 M/mm3 Low RBC 1.59 LAB L100.1300 12.0-15.0 g/dl Low alert HGB 4.5 Result Comment: CRITICAL VALUE VERIFIED. CALLED TO MK 01/07/18 1830 Marely Rich. RESULTS READ BACK BY SAME . [...] 01/08/18 1414 PATH REV previously reported as: Richa monroy Performed By: #### L100.0100 #### [facility] [address] [place], [address] COMPREHENSIVE METABOLIC Collected: 01/07/2018 Status: F Source: [facility] 6:05 PM [facility] REPOSITORY TYPE CODE TESTS RESULT OUT [...] 9 Performed By: #### L500.4050, L501.4010 #### [facility] [address] [place], [address] TROPONIN-I Collected: 01/07/2018 Status: F Source: [place] 6:05 [facility] REPOSITORY TYPE CODE TESTS RESULT OUT OF RANGE REFERENCE UNITS LAB L501.4010 <0.045 ng/mL Normal < 0.015 TROPONIN-I Result Comment: TROPONIN-I EXPECTED VALUES <0.045 Negative 0.045 - 0.590 Consistent with Cardiac Damage > OR = 0.600 Critical Value Not every elevated troponin is indicative of NE. These values should be used with clinical judgement in examining the patient's clinical picture for diagnosis. To establish a diagnosis of NE versus myocardial injury, there must be a demonstrated rise and/or fall in the troponin values, in addition to ischemic symptoms, EKG changes, new regional wall motion abnormality, and/or angiographical evidence. PLEASE NOTE: REFERENCE RANGES EDITED 17 Performed By: #### L500.4050, L501.4010 #### [facility] [address] [place], [address] TYPE AND SCREEN Collected: 01/07/2018 Status: F Source: [place] 6:05 [facility] REPOSITORY Order Comment: CMV NEG? N Number [...] NEGATIVE Screen Performed By: #### B101.7450 #### [facility] [address] [place], [place], [address] RC Collected: 01/07/2018 Status: F Source: [place] 6:05 [facility] REPOSITORY TYPE CODE TESTS RESULT OUT OF REFERENCE UNITS RANGE LAB U100.0000 [id number] TRANSFUSED PRODUCT: T AND S with Crossmatch, Red Cells COUNT: 2 Performed By: #### U100.0000 #### [facility] - refer to report for specific site FOR[place] ABS GR + CBC Collected: 01/03/2018 Status: F Source: [place] 9:10 AM [facility] REPOSITORY TYPE CODE TESTS RESULT OUT OF REFERENCE UNITS RANGE LAB WWBC 3.70-11.00 k/uL [place] WBC 6.82 LAB WRBC 3.90-5.20 m/uL Low [place] RBC 2.96 LAB WHGB 11.5-15.5 g/dL Low [place] Hemoglobin 8.7 LAB WHCT 36.0-46.0 % Low [place] Hematocrit 28.3 LAB WMCV 80.0-100.0 fL [place] MCV 95.6 LAB WMCH 26.0-34.0 pg [place] MCH 29.4 LAB WMCHC 30.5-36.0 g/dL [place] MCHC 30.7 LAB WRDW 11.5-15.0 % [place] High RDW 16.7 LAB WPLT 150-400 k/uL [place] Platelet Cnt 167 LAB WMPV 9.0-12.7 fL [place] MPV 10.6 Result Comment: Test performed at: [facility], [address] [place] [address]. LAB ABGRAN 1.45-7.50 k/uL Absol Gran 5.93 Count TYPE AND SCREEN Collected: 01/03/2018 Status: F Source: [place] 8:50 AM [facility] REPOSITORY Order Comment: PRETRANSFUSION HGB = 8.7 HCT = 28.3 PERFORMED AT [facility] CMV NEG?* N Give When? 01/04/18 08:30 Irradiated? N Leukodepleted? Y Reason for Type AND Screen/Red Cells: ANEMIA TYPE CODE TESTS RESULT OUT OF RANGE REFERENCE UNITS LAB B10.0800 A Normal BLOOD TYPE GEL POSITIVE LAB B100.4000 Normal Antibody NEGATIVE Screen Performed By: #### B101.7450 #### [facility] [address] [place], [place], [address] Collected: 01/03/2018 Status: F Source: [place] 8:50 AM [facility] REPOSITORY TYPE CODE TESTS RESULT OUT OF REFERENCE UNITS RANGE LAB U100.0000 [id number] TRANSFUSED PRODUCT: T AND S with Crossmatch, Red Cells COUNT: 2 Performed By: #### U100.0000 #### [facility] - refer to report for specific site [place] ABS GR + CBC Collected: 12/25/2017 Status: F Source: [place] 10:40 AM [facility] REPOSITORY TYPE CODE TESTS RESULT OUT OF REFERENCE UNITS RANGE LAB WWBC 3.70-11.00 k/uL [place] WBC 6.77 LAB WRBC 3.90-5.20 m/uL Low [place] RBC 3.37 LAB WHGB 11.5-15.5 g/dL Low [place] Hemoglobin 10.2 LAB WHCT 36.0-46.0 % Low [place] Hematocrit 32.7 LAB WMCV 80.0-100.0 fL [place] MCV 97.0 LAB WMCH 26.0-34.0 pg [place] MCH 30.3 LAB WMCHC 30.5-36.0 g/dL [place] MCHC 31.2 LAB WRDW 11.5-15.0 % [place] High RDW 17.6 LAB WPLT 150-400 k/uL Low [place] Platelet Cnt 118 LAB WMPV 9.0-12.7 fL [place] MPV 11.3 Result Comment: Test performed at: [facility], [address] [place] [address] Rd[address] [place] [address]. LAB ABGRAN 1.45-7.50 k/uL Absol Gran 5.88 Count PROTHROMBIN TIME W/INR Collected: 12/20/2017 Status: F Source: [place] 10:20 AM [facility] REPOSITORY TYPE CODE TESTS RESULT OUT OF RANGE REFERENCE UNITS LAB L300.4150 11.7-14.9 SECONDS High PROTIME 30.0 LAB L300.4200 Normal INR 2.8 Performed By: #### L300.3900 #### [facility] [address] [place], [address] PROGRESS Observed: 12/20/2017 Status: COMPLETED Source: [place] 9:40 AM [facility] REPOSITORY HNO ID: [id number] Author: Yara Garay Service: (none) Author Type: Physician Type: Progress Notes Filed: 12/21/2017 7:29 AM Note Text: PATIENT NAME: Emani Louis. CLINIC NO: [id number]. ATTENDING PHYSICIAN: Yara Garay MD. DATE OF [...] Latest Ref Rng AND Units 12/17/2017 WBC, [place] 3.70 - 11.00 k/uL 4.26 RBC, [place] 3.90 - 5.20 m/uL 3.12 (L) Hemoglobin, [place] 11.5 - 15.5 g/dL 9.3 (L) Hematocrit, [place] 36.0 - 46.0 % 30.3 (L) MCV, [place] 80.0 - 100.0 fL 97.1 MCH, [place] 26.0 - 34.0 pg 29.8 MCHC, [place] 30.5 - 36.0 g/dL 30.7 RDW, [place] 11.5 - 15.0 % 18.2 (H) Platelet Cnt, [place] 150 - 400 k/uL 95 (L) MPV, [place] 9.0 - 12.7 fL 10.8 Absol Gran [...] with more than 50% of the total zlgg-wg-clgy time of the visit in counseling / coordination of care. - avoid aspirin and NSAIDs; dietary consult to maintain a proper diet with warfarin therapy. - repeat CBC, CMP, iron study OV in 3 months. ? Yara Garay MD. ELECTRONICALLY SIGNED ? Cc: Dr. Eddie Mendoza ?Dr. Silvino Hu. PROGRESS Observed: 12/20/2017 Status: COMPLETED Source: [place] 9:34 AM [facility] REPOSITORY HNO ID: [id number] Author: Yara Garay Service: (none) Author Type: [...] week CNOVSP Observed: 12/20/2017 Status: COMPLETED Source: [place] 9:10 AM [facility] REPOSITORY Visit (SP) Office (FIORELLA) EMANI LOUIS ([id number]) 1940 F TXT Date Time Provider Department 12/20/17 9:10 AM YARA GARAY During your visit today, we recorded the following information about you: Temperature Pulse Blood pressure Weight 97.2 degrees 110/minute 78/51 62.6 kg Celia Reyes LPN 12/20/2017 9:32 AM Signed Est patient. [...] x 3 AND continue INJECTAFER next week Jarrod Yara 12/21/2017 7:29 AM Signed PATIENT NAME: Emani Louis. CLINIC NO: [id number]. ATTENDING PHYSICIAN: Yara Garay MD. DATE OF [...] Latest Ref Rng AND Units 12/17/2017 WBC, [place] 3.70 - 11.00 k/uL 4.26 RBC, [place] 3.90 - 5.20 m/uL 3.12 (L) Hemoglobin, [place] 11.5 - 15.5 g/dL 9.3 (L) Hematocrit, [place] 36.0 - 46.0 % 30.3 (L) MCV, [place] 80.0 - 100.0 fL 97.1 MCH, [place] 26.0 - 34.0 pg 29.8 MCHC, [place] 30.5 - 36.0 g/dL 30.7 RDW, [place] 11.5 - 15.0 % 18.2 (H) Platelet Cnt, [place] 150 - 400 k/uL 95 (L) MPV, [place] 9.0 - 12.7 fL 10.8 Absol Gran [...] with more than 50% of the total erfo-ju-rgim time of the visit in counseling / [...] Homa Ellison LPN Referring Provider: YARA GARAY [[id number]] Allergies As of Date: 12/20/2017 Noted Allergy Reaction AMBIEN (ZOLPIDEM TARTRATE) 09/06/2005 16 - Unknown ATIVAN (LORAZEPAM) 09/06/2005 14 - Other: See Comments Comments: just didn't work MOBIC (MELOXICAM) 09/06/2005 16 - Unknown PAMELOR (NORTRIPTYLINE HCL) 09/06/2005 16 - Unknown Date Reviewed: 12/20/2017 Reviewed by: Celia Reyes LPN - Fully Assessed Reason for Visit: Established Patient [175] Primary Visit Diagnosis:Anemia in chronic kidney disease, unspecified CKD stage [N18.9, D63.1] Other Visit Diagnosis:Chronic kidney disease, stage III (moderate) [N18.3] Order(s):TREATMENT PARAMETERS [1113537] Order #: [id number]: 1 [] darbepoetin peace in polysorbat 300 mcg injection (ARANESP)Disp: Rfl: Level of Service: EST PATIENT VISIT LEVEL 3 [[id number]] Disposition: Return in about 3 months (around [...] [K92.2] INVALID FOR* Visit Notes: >> Celia Reyes LPN Aaliyah December 20, 2017 9:22 AM Status: Signed Est patient. Three month office visit. Discuss recent labs. Celia Reyes LPN >> Homa Ellison (Ernesto), ERNESTO Aaliyah December 20, 2017 9:59 AM Status: Signed Aranesp injection administered, right arm,tolerated well, no immediate adverse reactions noted. Homa Ellison LPN Encounter Status:Closed by YARA GARAY MD on 12/21/17 FR[facility]IC ABS GR + CBC Collected: 12/20/2017 Status: F Source: [place] 9:06 AM [facility] REPOSITORY TYPE CODE TESTS RESULT OUT OF REFERENCE UNITS RANGE LAB WWBC 3.70-11.00 k/uL [place] WBC 4.56 LAB WRBC 3.90-5.20 m/uL Low [place] RBC 3.10 LAB WHGB 11.5-15.5 g/dL Low [place] Hemoglobin 9.3 LAB WHCT 36.0-46.0 % Low [place] Hematocrit 30.3 LAB WMCV 80.0-100.0 fL [place] MCV 97.7 LAB WMCH 26.0-34.0 pg [place] MCH 30.0 LAB WMCHC 30.5-36.0 g/dL [place] MCHC 30.7 LAB WRDW 11.5-15.0 % [place] High RDW 17.9 LAB WPLT 150-400 k/uL Low [place] Platelet Cnt 97 LAB WMPV 9.0-12.7 fL [place] MPV 10.0 Result Comment: Test performed at: [facility], [address] [place] [address]. LAB ABGRAN 1.45-7.50 k/uL Absol Gran 3.77 Count HOSP Observed: 12/18/2017 Status: COMPLETED Source: [place] 12:00 AM [facility] REPOSITORY Patient:Emani Louis MRN: <[id number]> Height:5' 2(1.575 m) Weight:143 lb (64.864 kg) [...] in situ [Z95.0] Hypothyroidism [E03.9] Thrombocytopenia, unspecified (HCC) [D69.6] COPD (chronic obstructive pulmonary disease) (HCC) [J44.9] Chronic kidney disease, stage III (moderate) [N18.3] Anemia in chronic renal disease [N18.9, D63.1] Atrial fibrillation (HCC) [I48.91] Adenomatous colon polyp [D12.6] Tobacco use disorder [F17.200] Dizziness and giddiness [R42] Carotid artery disease without cerebral infarction (HCC) [I77.9] Other specified hypotension [I95.89] Transfusion history [...] DM type 2 (diabetes mellitus, type 2) ([facility]) [E11.9] CHF (congestive heart failure) ([facility]) [I50.9] Chronic hypotension [I95.89] Allergies: Ambien [Zolpidem Tartrate] Ativan [Lorazepam] Mobic [Meloxicam] Pamelor [Nortriptyline Hcl] Date Verified: 01/31/18 Lab Values Lab Value Units Date High Low POTA* 4.4 mmol/L 01/21/2018 5.1 3.7 KARSTEN* 35.7 % 01/21/2018 46.0 36.0 Progress Notes (NAV MAIN A30): Judi Krivac 02/04/2018 12:02 PM Signed Patient's request for medication is as follows: Pending Prescriptions Disp Refills PEG 3350-ELECTROLYTES 236 GRAM-22.74 GRAM-6.74 GRAM-5.86 GRAM SOLUTION 4 L 0 Sig: Refer to printed patient instructions that will be mailed to you. Please approve the above prescription(s) to electronically send to pharmacy. Judi Koch YAMILA DRAPER LPN, [employer] 02/05/2018 11:43 AM Signed patient called unable to speak with patient vm message left to make aware prescription called in to pharmacy. YAMILA DRAPER LPN Progress Notes (INTM MAIN IMPACT): Teena Sue MD, FACP, 01/24/2018 8:47 AM Addendum HISTORY AND PHYSICAL [...] of Chronic anemia/thrombocytopaenia and followed closely by [facility] for iron and darbopoetin injections. Last [...] since discharge. Reports that she follows with [facility] [place] for her coumadin/INR and has always been [...] kidney failure with lesion of tubular necrosis ([facility]) 08/19/2008 ATNLewis Tobias. - Adenomatous colon polyp 08/30/2012 - Anemia in chronic kidney disease 08/31/2011 - Atrial fibrillation ([facility]) 05/09/2012 - Calculus of ureter 03/24/2008 - Cardiac pacemaker in situ 08/17/2008 Sick sinus syndrome. - CHF (congestive heart failure) ([facility]) 07/24/2008 Mitral insufficiency. s/p MV replacement - Cholelithiasis 05/26/2013 - Chronic hypotension - Chronic kidney disease, stage III (moderate) 09/23/2009 - Chronic rhinitis - COPD (chronic obstructive pulmonary disease) ([facility]) - DDD (degenerative disc disease) - Diverticulosis of colon (without mention of hemorrhage) 10/17/05 - DM type 2 (diabetes mellitus, type 2) ([facility]) 08/15/2005 on insulin - Esophageal reflux 08/15/2005 - Fibromyalgia - Generalized osteoarthrosis, unspecified site - Heart valve replaced by other means 08/17/2008 #25, [place] Mitral valve. - Iron deficiency 08/17/2011 - Lumbago 08/15/2005 - Melena - Moderate to severe pulmonary hypertension 09/21/2016 - Myalgia and myositis, unspecified - Other and unspecified hyperlipidemia 08/15/2005 - PSVT (paroxysmal supraventricular tachycardia) ([facility]) 04/10/2011 - Sleep apnea - Thrombocytopenia ([facility]) - Tricuspid regurgitation - Unspecified asthma(493.90) 08/15/2005 - Unspecified cardiovascular disease heart cath 12/15 PAST SURGICAL HISTORY Procedure Laterality Date - CAPSULE ENDOSCOPY SMALL BOWEL 12/03/2017 - COLONOSCOP W/ OR W/O [facility] SPE[facility] 10/17/05 - COLONOSCOP W/ OR W/O [facility] SPEC 08/25/2009 Colonoscopy - COLONOSCOP W/ OR W/O [facility] SPEC 10/17/2012 Colonoscopy - COLONOSCOPY 11/26/2017 - EGD 01/16/2005 - EGD W/O OR W/BRUSH/WASH 08/25/2009 EGD - EGD W/O OR W/BRUSH/WASH 04/05/15 EGD inpt [facility] - EGD W/O OR W/BRUSH/WASH 10/30/2016 EGD - [facility] PACER XVENOUS ATRIAL Perm pacemaker insert [...] daily. Dx: Type 2 DM - Uncontrolled Insulin: Yes Disp: 100 Strip Rfl: 4 Blood-Glucose Meter, Drum-type (ACCU-CHEK COMPACT PLUS CARE) kit Accu-Check Compact Plus Meter Diagnosis: Type 2 DM - Uncontrolled Disp: 1 Kit Rfl: 0 levothyroxine (SYNTHROID) [...] fevers. Neuro: No history of TIA's, stroke, [employer] tumor, impaired sensorium, hemiplegia, paraplegia or quadriplegia. 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 COPD [...] Has SSS s/p PPM, follows with local meeting facilitator. Denies hx of VTE. No chest pain GI: Denies hx of GERD. Denies n/v/abd pain, melena,hematochezia, hematochezia. Hx of GI bleed in the past. -see HPI : No history of UTI in past 6 weeks. No history of renal failure. Not currently on or requiring dialysis. No history of symptoms or problems. 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 [facility] valve 2007. On warfarin (local meeting facilitator has done lovenox bridging in the past) [...] 52 - Moderate to severe pulmonary hypertension, 2016 [...] 12.2 Absolute nRBC <0.01 k/uL <0.01 WBC, [place] 3.70 - 11.00 k/uL 3.65 (L) RBC, [place] 3.90 - 5.20 m/uL 3.20 (L) Hemoglobin, [place] 11.5 - 15.5 g/dL 9.4 (L) Hematocrit, [place] 36.0 - 46.0 % 31.2 (L) MCV, [place] 80.0 - 100.0 fL 97.5 MCH, [place] 26.0 - 34.0 pg 29.4 MCHC, [place] 30.5 - 36.0 g/dL 30.1 (L) RDW, [place] 11.5 - 15.0 % 17.5 (H) Platelet Cnt, [place] 150 - 400 k/uL 87 (L) MPV, [place] 9.0 - 12.7 fL 11.1 Absol Gran [...] using Synthroid 50 Qd - DJD, using ?[place]. - Moderate to severe pulmonary hypertension, 2017 [...] placed. - She p/w weakness to OSH ([place] [facility]), as she was too weak to stand and noted to be hypotensive and tachycardic. Hg was 4.5, and INR was 19.5, given Vitamin K and 2 units of RBCs, 2 L fluid bolus, ?80 mg IV protonix and started on a protonix gtt. ??She was then transferred to [facility]?Hgb on presentation was 7.2. Patient [...] on 02/06. -Patient was transferred to the [facility]. Patient was being transitioned back to [...] with more than 50% of the total yfps-oz-qemp time of the visit in counseling / [...] done in the past and that her meeting facilitator arranges. If GI needs patient to be off couamdin, will then need to request her meeting facilitator to facilitate bridging with closer monitoring. of note, patient also closely followed by [facility]. Labs ordered to rechceck CBC, INR and BMP. Patient aware to seek medical help right away for any signs and symptoms of anemia or GI bleeding Patient's meeting facilitator is Dr. Mendoza [phone]. Device check ordered after discussion with the [facility] who recommended pre-appointment here PULMONARY: Patient is at optimal Pulmonary status for scheduled surgery / procedure. Suggest the following in the post-operative period: Continue bronchodilator medications, Aggressive bronchopulmonary hygiene and Early ambulation ENDOCRINE: DIABETES: - Initiate [facility] Guidelines for perioperative diabetes management. Check finger [...] and that she is followed by her meeting facilitator for it. Device check completed. Per Dr. [...] Direct number to Dr. Mendoza's office is [phone] (Kandy is Dr. Mendoza's nurse). Will forward [...] old female here today for visit in [facility] Referring Surgeon: Dr. Mckeon Date of Surgery: [...] Sue MD, FACP, 01/21/2018 9:53 AM Addendum [facility] Patient Instructions for Surgery FOOD INSTRUCTIONS: Nothing [...] Lovenox please contact Teena Sue MD, FACP, [facility] Seek medical help right away for any [...] please do not hesitate to contact the [facility] at [phone] or [phone], ext [phone]. Signature: Teena Sue MD, FACP, M Date: January 21, 2018 Previous Version [facility] ABS GR + CBC Collected: 12/17/2017 Status: F Source: [place] 2:09 PM [facility] REPOSITORY TYPE CODE TESTS RESULT OUT OF REFERENCE UNITS RANGE LAB WWBC 3.70-11.00 k/uL [place] WBC 4.26 LAB WRBC 3.90-5.20 m/uL Low [place] RBC 3.12 LAB WHGB 11.5-15.5 g/dL Low [place] Hemoglobin 9.3 LAB WHCT 36.0-46.0 % Low [place] Hematocrit 30.3 LAB WMCV 80.0-100.0 fL [place] MCV 97.1 LAB WMCH 26.0-34.0 pg [place] MCH 29.8 LAB WMCHC 30.5-36.0 g/dL [place] MCHC 30.7 LAB WRDW 11.5-15.0 % [place] High RDW 18.2 LAB WPLT 150-400 k/uL Low [place] Platelet Cnt 95 LAB WMPV 9.0-12.7 fL [place] MPV 10.8 Result Comment: Test performed at: [address] [place] [address]. LAB ABGRAN 1.45-7.50 k/uL Absol Gran 3.39 Count IRON AND TIBC Collected: 12/17/2017 Status: F Source: [place] 2:08 PM [facility] REPOSITORY TYPE CODE TESTS RESULT OUT OF REFERENCE UNITS RANGE LAB IRN 41-186 ug/dL Iron 48 LAB TIBC 232-386 ug/dL TIBC 281 LAB SAT 15-57 % Transferrin Saturatn 17 Performed By: #### IRON, FERR #### [facility] [address] [address] FERRITIN Collected: 12/17/2017 Status: F Source: [place] 2:08 PM [facility] REPOSITORY TYPE CODE TESTS RESULT OUT OF REFERENCE UNITS RANGE LAB FERR 14.7-205.1 ng/mL Ferritin 77.5 Performed By: #### IRON, FERR #### [facility] [address] [address] CNPN Observed: 12/17/2017 Status: COMPLETED Source: [place] 12:00 AM [facility] REPOSITORY Telephone (GASTMN) EMANI LOUIS ([id number]) 1940 F TXT Date Time Provider Department 12/17/17 SILVINO HU GASTMN During your visit today, we recorded the following information about you: Silvino Hu 12/17/2017 4:04 PM Signed Inform the CT e is neg. We are concerned about a lesion in the end of the small bowel questionably seen on Capsule. Will need to zachariah retrograde ballon enteroscopy. aYmila Draper (Ernesto)ERNESTO 12/18/2017 10:[address] type and screen order place impact order patient transferred to scheduling on Q3 for procedure Silvino Hu 12/20/2017 7:30 AM Signed Orders entered Yamila Draper)ERNESTO 12/20/2017 8:49 AM Signed my chart message [...] bleed [K92.2] Order(s):COLON BALLOON ENTEROSC GEN ANES [[id number]] Order #: [id number] FUTURE Prescriptions as of 12/17/2017 Sig: FOLIC [...] WO IVCON Observed: 12/14/2017 Status: F Source: [place] 3:09 PM CLINIC OTHER CAMPUS REPOSITORY * * *Final Report* * * DATE OF EXAM: Dec 14 2017 3:09PM [facility] 0531 - CT ABD/PEL WO IVCON / [...] No evidence of an acute intra-abdominal process Socket Puller: PSCDakota Transcribe Date/Time: Dec 15 2017 1:50P Dictated by : RADHIKA GARNICA MD This examination was interpreted and the report reviewed and electronically signed by: RADHIKA GARNICA MD on Dec 15 2017 1:54PM EST [id number] COMP METABOLIC PANEL Collected: 12/13/2017 Status: F Source: [place] 7:55 AM [facility] REPOSITORY TYPE CODE [...] mg/dL Glucose High 169 Result Comment: The [place] Diabetes Association (ADA) provides guidance for cutoff [...] Standards of Medical Care in Diabetes 2016, [place] [employer] Association. Diabetes Care. 2016.39(Suppl 1). LAB [...] Performed By: #### CMP, IRON, FERR #### [facility] [address] [place], [place] [address] IRON AND TIBC Collected: 12/13/2017 Status: F Source: [place] 7:55 AM [facility] REPOSITORY TYPE CODE TESTS RESULT OUT OF REFERENCE UNITS RANGE LAB IRN 41-186 ug/dL Low Iron 33 LAB TIBC 232-386 ug/dL TIBC 286 LAB SAT 15-57 % Low Transferrin Saturatn 12 Performed By: #### CMP, IRON, FERR #### [facility] [address] [address] FERRITIN Collected: 12/13/2017 Status: F Source: [place] 7:55 AM [facility] REPOSITORY TYPE CODE TESTS RESULT OUT OF REFERENCE UNITS RANGE LAB FERR 14.7-205.1 ng/mL Ferritin 74.5 Performed By: #### CMP, IRON, FERR #### [facility] [address] [address] FREDERIC ABS GR + CBC Collected: 12/13/2017 Status: F Source: [place] 7:54 AM [facility] REPOSITORY TYPE CODE TESTS RESULT OUT OF REFERENCE UNITS RANGE LAB WWBC 3.70-11.00 k/uL [place] WBC 4.25 LAB WRBC 3.90-5.20 m/uL Low [place] RBC 2.08 LAB WHGB 11.5-15.5 g/dL Low [place] Hemoglobin 6.4 LAB WHCT 36.0-46.0 % Low [place] Hematocrit 21.2 LAB WMCV 80.0-100.0 fL [place] High MCV 101.9 LAB WMCH 26.0-34.0 pg [place] MCH 30.8 LAB WMCHC 30.5-36.0 g/dL Low [place] MCHC 30.2 LAB WRDW 11.5-15.0 % [place] High RDW 17.9 LAB WPLT 150-400 k/uL Low [place] Platelet Cnt 91 LAB WMPV 9.0-12.7 fL [place] MPV 10.7 Result Comment: Test performed at: [facility], [address] [place] [address]. LAB ABGRAN 1.45-7.50 k/uL Absol Gran 3.38 Count TYPE AND SCREEN Collected: 12/13/2017 Status: F Source: [place] 7:45 AM [facility] REPOSITORY Order Comment: PRETRANSFUSION HGB = 6.4 HCT = 21.2 PERFORMED AT [facility] CMV NEG?* N Give When? [id number] Irradiated? N Leukodepleted? Y Reason for Type AND Screen/Red Cells: ANEMIA TYPE CODE TESTS RESULT OUT OF RANGE REFERENCE UNITS LAB B10.0800 A Normal BLOOD TYPE GEL POSITIVE LAB B100.4000 Normal Antibody NEGATIVE Screen Performed By: #### B101.7450 #### [facility] [address] [place], [address] Collected: 12/13/2017 Status: F Source: [place] 7:45 AM [facility] REPOSITORY TYPE CODE TESTS RESULT OUT OF REFERENCE UNITS RANGE LAB U100.0000 [id number] TRANSFUSED PRODUCT: T AND S with Crossmatch, Red Cells COUNT: 3 Performed By: #### U100.0000 #### [facility] - refer to report for specific site PACEMAKER CHECK Observed: 12/11/2017 Status: F Source: [place] 10:23 AM [facility] REPOSITORY [facility] [address] [place] [address] Pacemaker Check Date of Service: 11/27/17 1110 MR#: [id number] Acct: [id number] Name: EMANI [place]OUIS Rep #: [id number] : 1940 From: Angélica Dunn Age/Sex: 77/F [place] [facility] [place] Status: Signed Comments Summary Comments: Dual Chamber Pacemaker Evaluation: Interrogation shows 2.2k MS episodes, 85% total time or 17.8 days, max duration of episode 2.5 day and no VHR episodes since 11/06/17. Left pectoral pocket/incision w/o s/s of infection or erosion. Pt offers no cardiac complaints. Presenting rhythm shows atrial flutter with intermittent ventricular paced @ 100 bpm. ANIMAL PARK CODE ENFORCEMENT OFFICER=8%, Battery longevity estimated at <0.5yrs. Lead impedances, sensing and vent. pace/sense threshold remain stable. Unable to check atrial threshold d/t atrial flutter. Atrial impedance remains consistently high. No parameter changes made. Counters cleared. Next f/u appt scheduled for in 3 mos. Device Device Date Interviewed: 11/27/17 Follow-up Location: in office Interview Reason: routine follow up Helicopter Mechanic: [email or web address] Name: Altrua 40 Model: S403 Serial #: [id number] Implant Date: 07/31/08 Year(s): 9 Implant Physician: Dr. Addison Meyers/[facility] Patient Characteristics Atrial Indication: sick sinus syndrome Ejection fraction %: 65 to 70 (10/2015) By: Echo Underlying rhythm: Atrial flutter Pacemaker Dependent: No Device Characteristics Device: Dual Chamber Type: Pacemaker Remote Follow-Up: No Device Physical Exam Yes Incision well healed Leads Lead #1 Helicopter Mechanic Lead 1: Guidant Model Lead 1: 4135 Serial# Lead 1: [id number] Date Implanted Lead 1: 07/31/08 Position Lead 1: RA Lead #2 Helicopter Mechanic Lead 2: Guidant Model Lead 2: 4136 Serial# Lead 2: [id number] Date Implanted Lead 2: 07/31/08 Position Lead [...] 12/11/17 1023<Electronically signed by Eddie Mendoza MD> Yojanahira Signature: Date (if applicable) Eddie Mendoza MD CC: PROTHROMBIN TIME W/INR Collected: 12/06/2017 Status: F Source: [place] 10:25 AM [facility] REPOSITORY TYPE CODE TESTS RESULT OUT OF RANGE REFERENCE UNITS LAB L300.4150 11.7-14.9 SECONDS High PROTIME 33.9 LAB L300.4200 Normal INR 3.3 Performed By: #### L300.3900 #### [facility] [address] [place], [address] [place] ABS GR + CBC Collected: 12/06/2017 Status: F Source: [place] 9:00 AM [facility] REPOSITORY TYPE CODE TESTS RESULT OUT OF REFERENCE UNITS RANGE LAB WWBC 3.70-11.00 k/uL Low [place] WBC 3.27 LAB WRBC 3.90-5.20 m/uL Low [place] RBC 3.09 LAB WHGB 11.5-15.5 g/dL Low [place] Hemoglobin 9.5 LAB WHCT 36.0-46.0 % Low [place] Hematocrit 30.9 LAB WMCV 80.0-100.0 fL [place] MCV 100.0 LAB WMCH 26.0-34.0 pg [place] MCH 30.7 LAB WMCHC 30.5-36.0 g/dL [place] MCHC 30.7 LAB WRDW 11.5-15.0 % [place] High RDW 16.6 LAB WPLT 150-400 k/uL Low [place] Platelet Cnt 99 LAB WMPV 9.0-12.7 fL [place] MPV 11.5 Result Comment: Test performed at: [facility], [address] [place] [address] Rd[address] [place] [address]. LAB ABGRAN 1.45-7.50 k/uL Absol Gran 2.64 Count PROGRESS Observed: 12/04/2017 Status: COMPLETED Source: [place] 4:10 PM [facility] [place] REPOSITORY HNO ID: [id number] Author: Kodak Muñoz Service: (none) Author Type: Physician Type: Progress Notes Filed: 12/04/2017 11:39 PM Note Text: This note was created using Inquisitive Systemsriter. Subjective Patient presents with: Yearly Exam HPI: [...] hyperlipidemia 08/15/2005 - PSVT (paroxysmal supraventricular tachycardia) ([facility]) 04/10/2011 - Sleep apnea - Type II or unspecified type diabetes mellitus without mention of complication, not stated as uncontrolled 08/15/2005 - Unspecified asthma(493.90) 08/15/2005 - Unspecified cardiovascular disease heart cath 12/15 PAST SURGICAL HISTORY Procedure Laterality Date - CAPSULE ENDOSCOPY SMALL BOWEL 12/03/2017 - COLONOSCOP W/ OR W/O [facility] SPEC 10/17/05 - COLONOSCOP W/ OR W/O [facility] SPEC 08/25/2009 Colonoscopy - COLONOSCOP W/ OR W/O [facility] SPEC 10/17/2012 Colonoscopy - COLONOSCOPY 11/26/2017 - EGD 01/16/2005 - EGD W/O OR W/BRUSH/WASH 08/25/2009 EGD - EGD W/O OR W/BRUSH/WASH 04/05/15 EGD inpt [facility] - EGD W/O OR W/BRUSH/WASH 10/30/2016 EGD [...] MD CNOV Observed: 12/04/2017 Status: COMPLETED Source: [place] 3:00 PM [facility] REPOSITORY Office Visit (INTMWS) EMANI LOUIS ([id number]) 1940 F TXT Date Time Provider Department 12/04/17 3:00 PM KODAK MUÑOZ INTMWS During your visit today, we recorded the following information about you: Temperature Pulse Respiration Blood pressure 97.4 degrees 88/minute 20/minute 63/42 Weight Height 62.1 kg 1.568 m Kodak Muñoz MD 12/04/2017 11:39 PM Addendum This note was created using Inquisitive Systemsriter. 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 ONDANSETRON 4 MG DISINTEGRATING TABLET >> Marta Alba LPN 12/04/2017 3:37 PM >> MARTA ALBA LPN SunDec 04, 2017 3:37 PM Not taking. POTASSIUM CHLORIDE ER 8 MEQ TABLET,EXTENDED RELEASE >> Marta Alba LPN 12/04/2017 3:38 PM >> MARTA ALBA LPN SunDec 04, 2017 3:38 PM Taking 10meq once daily. WARFARIN 2 MG TABLET >> Marta Alba LPN 12/04/2017 3:38 PM >> MARTA ALBA LPN SunDec 04, 2017 3:38 PM Taking 2 [...] 12/04/17 PROGRESS Observed: 12/03/2017 Status: COMPLETED Source: [place] 10:18 AM [facility] REPOSITORY HNO ID: [id number] Author: Arlene (Rn) ANDRES Marrero Service: (none) Author Type: Registered Nurse Type: Progress Notes Filed: 01/21/2018 3:10 PM Note Text: Ingested capsule endoscope without difficulty @ 10:15 on 12-03-2017. Deneen Marrero RN [place] ABS GR + CBC Collected: 11/29/2017 Status: F Source: [place] 9:15 AM [facility] REPOSITORY TYPE CODE TESTS RESULT OUT OF REFERENCE UNITS RANGE LAB WWBC 3.70-11.00 k/uL Low [place] WBC 3.48 LAB WRBC 3.90-5.20 m/uL Low [place] RBC 3.16 LAB WHGB 11.5-15.5 g/dL Low [place] Hemoglobin 9.6 LAB WHCT 36.0-46.0 % Low [place] Hematocrit 31.3 LAB WMCV 80.0-100.0 fL [place] MCV 99.1 LAB WMCH 26.0-34.0 pg [place] MCH 30.4 LAB WMCHC 30.5-36.0 g/dL [place] MCHC 30.7 LAB WRDW 11.5-15.0 % [place] High RDW 17.0 LAB WPLT 150-400 k/uL Low [place] Platelet Cnt 81 Result Comment: NO CLOT DETECTED LAB WMPV 9.0-12.7 fL [place] MPV 11.0 Result Comment: Test performed at: [facility], [address] [place] [address] Rd[address] [place] [address]. LAB ABGRAN 1.45-7.50 k/uL Absol Gran 2.93 Count LIPID PANEL, BASIC Collected: 11/29/2017 Status: F Source: [place] 9:15 AM [facility] REPOSITORY TYPE CODE TESTS RESULT OUT [...] Desk Reference: National Heart, Lung, and Blood [place]. National Institutes of Health. 2001: NIH Publication No. 01-3305. 2. An International Atherosclerosis Society position paper: global recommendations for the management of dyslipidemia: executive summary, Atherosclerosis. 2014: 232(2):410-413. Performed By: #### LIPB, HBA1C #### [facility] [address] [id number] HEMOGLOBIN A1C Collected: 11/29/2017 Status: F Source: [place] 9:15 AM [facility] REPOSITORY TYPE CODE TESTS RESULT OUT OF REFERENCE UNITS RANGE LAB HGBA1C 4.3-5.6 % Hemoglobin A1c 4.7 LAB HBA0 mg/dL Est. Average Glucose 88 Result Comment: eAG: (Estimated average glucose) is a calculated value from HgbA1c and is territory sales representative of the average blood glucose level in the last 2-3 month period. Performed By: #### LIPB, HBA1C #### [facility] [address] [address] ALBUMIN/CREAT RATIO Collected: 11/29/2017 Status: F Source: [place] 9:15 AM [facility] REPOSITORY TYPE CODE TESTS RESULT OUT OF REFERENCE UNITS RANGE LAB UCRR 20-300 mg/dL 18.0 Low Creatinine,Ur ine,Ran LAB UALBR 0.0-23.0 mg/L <12.0 Albumin Urine Random LAB UALBCR 0-30 mg/g Not Albumin/Creat calculated Ratio Performed By: #### UACR #### [facility] [address] [place], [place] [address] CARDIOLOGY VISIT Observed: 11/27/2017 Status: F Source: [place] REPORT 10:52 AM [facility] REPOSITORY [facility] [address] [place] [address] OFFICE VISIT Date of Service: 11/27/17 MR#: [id number] Acct: [id number] Name: EMANI LOUIS Rep #: [id number] : 1940 Provider: Eddie Mendoza MD Age/Sex: 77/F Location: [facility] Status: Signed HPI HPI Chief Complaint: Follow-up visit. Details: EMANI LOUIS, [...] which she has been followed here in [place] as well as in [place]. She tells me that she had an [...] Lt brachial Intake Visit Reasons: 6 M International Sourcing Manager Required: No Accompanied by: Is patient in [...] SC QHS 04/30/15 [History Confirmed 11/27/17] Tiotropium Concord [Spiriva 18 MCG] 2 puff INHALATION DAILY PRN 06/03/15 [History Confirmed 11/23/17] Cyanocobalamin (Vitamin B-12) [Vitamin B12] 1,000 mcg PO DAILY 06/10/16 [History Confirmed 11/27/17] Furosemide [Lasix] 20 mg PO QODAY 06/10/16 [History Confirmed 11/27/17] Docusate Sodium [Colace] 200 mg PO BID PRN PRN 09/08/16 [History Confirmed 11/27/17] Fluticasone 0.05% [Flonase Nasal Roundup] 2 spray NASAL DAILY PRN 09/08/16 [History [...] to 70 (65% per echo 10/26/2015 at [facility]) [facility] Medical History Tachycardia-bradycardia syndrome (Chronic) Pleural effusion, not elsewhere classified (Chronic) Typical atrial flutter (Chronic) Hypotension (Chronic) Secondary pulmonary hypertension (Chronic) Carotid bruit (Chronic) PVC's (premature ventricular contractions) (Chronic) Mitral valve insufficiency (Chronic) COPD (chronic obstructive pulmonary disease) (Chronic) Paroxysmal atrial fibrillation (Chronic) Sick sinus syndrome (Chronic) 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 She was recently seen in [place] where she had a colonoscopy and is [...] SPLEEN -NB Observed: 11/26/2017 Status: F Source: [place] 2:52 PM [facility] REPOSITORY * * *Final Report* * * [...] WITHOUT EVIDENCE OF CHOLECYSTITIS. NO BILIARY DILATATION Socket Puller: [facility] Transcribe Date/Time: Nov 26 2017 2:54P Dictated by : AROLDO RENAE JR, MD This examination was interpreted and the report reviewed and electronically signed by: AROLDO RENAE JR, MD on Nov 26 2017 3:03PM EST [id number] US ABD RIGHT UPPER Observed: 11/26/2017 Status: F Source: [facility] 2:52 PM [facility] REPOSITORY * * *Final Report* * * [...] WITHOUT EVIDENCE OF CHOLECYSTITIS. NO BILIARY DILATATION [facility]ocket [facility] Transcribe Date/Time: Nov 26 2017 2:54P Dictated by : AROLDO RENAE JR, MD This examination was interpreted and the report reviewed and electronically signed by: AROLDO RENAE JR, MD on Nov 26 2017 3:03PM EST [id number] PROTHROMBIN TIME W/INR Collected: 11/22/2017 Status: F Source: [place] 10:51 AM [facility] REPOSITORY Order Comment: Comments: STANDING ORDER Comments: STANDING ORDER TYPE CODE TESTS RESULT OUT OF RANGE REFERENCE UNITS LAB L300.4150 11.7-14.9 SECONDS High PROTIME 30.9 LAB L300.4200 Normal INR 3.0 Performed By: #### L300.3900 #### [place] [facility] [address] [place], [address] FREDERIC ABS GR + CBC Collected: 11/22/2017 Status: F Source: [place] 9:00 AM [facility] REPOSITORY TYPE CODE TESTS RESULT OUT OF REFERENCE UNITS RANGE LAB WWBC 3.70-11.00 k/uL [place] WBC 3.76 LAB WRBC 3.90-5.20 m/uL Low [place] RBC 2.61 LAB WHGB 11.5-15.5 g/dL Low [place] Hemoglobin 8.2 LAB WHCT 36.0-46.0 % Low [place] Hematocrit 26.5 LAB WMCV 80.0-100.0 fL [place] High MCV 101.5 LAB WMCH 26.0-34.0 pg [place] MCH 31.4 LAB WMCHC 30.5-36.0 g/dL [place] MCHC 30.9 LAB WRDW 11.5-15.0 % [place] High RDW 17.3 LAB WPLT 150-400 k/uL Low [place] Platelet Cnt 94 LAB WMPV 9.0-12.7 fL [place] MPV 11.1 Result Comment: Test performed at: [facility], [address] [place] [address]. LAB ABGRAN 1.45-7.50 k/uL Absol Gran 2.79 Count TYPE AND SCREEN Collected: 11/22/2017 Status: F Source: [place] 9:00 AM [facility] REPOSITORY Order Comment: PRETRANSFUSION HGB = 8.2 HCT = 26.5 PERFORMED AT [facility] CMV NEG?* N Give When? 11/23 0900 Irradiated? N Leukodepleted? Y Reason for Type AND Screen/Red Cells: ANEMIA TYPE CODE TESTS RESULT OUT OF RANGE REFERENCE UNITS LAB B10.0800 A Normal BLOOD TYPE GEL POSITIVE LAB B100.4000 Normal Antibody NEGATIVE Screen Performed By: #### B101.7450 #### [facility] [address] [place], [address] Collected: 11/22/2017 Status: F Source: [place] 9:00 AM [facility] REPOSITORY TYPE CODE TESTS RESULT OUT OF REFERENCE UNITS RANGE LAB U100.0000 [id number] TRANSFUSED PRODUCT: T AND S with Crossmatch, Red Cells COUNT: 2 Performed By: #### U100.0000 #### [facility] - refer to report for specific site PACEMAKER CHECK Observed: 11/21/2017 Status: F Source: [place] 8:22 AM [facility] REPOSITORY [facility] [address] [place] [address] Pacemaker Check Date of Service: 11/06/17 1129 MR#: [id number] Acct: [id number] Name: EMANI [place]OUIS Rep #: [id number] : 1940 From: Angélica Dunn Age/Sex: 76/F Location: [facility] Status: Signed Comments Summary Comments: Dual Chamber Pacemaker Evaluation: Interrogation shows 10.4k MS episodes, 89% total time or 73.1 days, max duration of episode 2 days, no VHR episodes since 08/16/17. Pt on Coumadin Left pectoral pocket/incision w/o s/s of infection or erosion. Pt offers no cardiac complaints. Presenting rhythm shows atrial flutter @ 100 bpm. ANIMAL PARK CODE ENFORCEMENT OFFICER=6%. Battery longevity approx <0.5yrs. Lead impedances, sensing and ventricular threshold remain stable. Unable to check atrial threshold d/t chronic atrial flutter. No parameter changes made. Counters cleared. Next f/u appt scheduled for in 3 mos. Device Device Date Interviewed: 11/06/17 Follow-up Location: in office Interview Reason: routine follow up Helicopter Mechanic: [email or web address] Name: Altrua 40 Model: S403 Serial #: [id number] Implant Date: 07/31/08 Year(s): 9 Implant Physician: Dr. Addison Meyers/[facility] Patient Characteristics Atrial Indication: sick sinus syndrome Ejection fraction %: 65 to 70 (10/2015) By: Echo Underlying rhythm: Atrial flutter Pacemaker Dependent: No Device Characteristics Device: Dual Chamber Type: Pacemaker Remote Follow-Up: No Device Physical Exam Yes Incision well healed Leads Lead #1 Helicopter Mechanic Lead 1: Guidant Model Lead 1: 4135 Serial# Lead 1: [id number] Date Implanted Lead 1: 07/31/08 Position Lead 1: RA Lead #2 Helicopter Mechanic Lead 2: Guidant Model Lead 2: 4136 Serial# Lead 2: [id number] Date Implanted Lead 2: 07/31/08 Position Lead [...] 11/21/17 0822<Electronically signed by Eddie Mendoza MD> Cosigner Signature: Date (if applicable) Eddie Mendoza MD CC: DAWOOD Observed: 11/20/2017 Status: COMPLETED Source: [place] 12:00 AM [facility] REPOSITORY Patient Outreach (INTMWH) EMANI [place] ([id number]) 1940 F Date Time Provider Department 11/20/17 [place] MUÑOZ INTWH During your visit today, we recorded the following information about you: Allergies As of Date: 11/20/2017 Noted Allergy Reaction AMBIEN (ZOLPIDEM TARTRATE) 09/06/2005 16 - Unknown ATIVAN (LORAZEPAM) 09/06/2005 14 - Other: See Comments Comments: just didn't work MOBIC (MELOXICAM) 09/06/2005 16 - Unknown PAMELOR (NORTRIPTYLINE HCL) 09/06/2005 16 - Unknown Date Reviewed: 11/15/2017 Reviewed by: Celia Reyes LPN - Fully Assessed Visit Diagnosis:Medication management [Z79.899] Order(s):CBC [SQCBC] Order #: [id number] FUTURE ALBUMIN/CREAT RATIO RND UR [SQUACR] Order #: [id number] FUTURE HGB A1C [FMZRI1P] Order #: [id number] FUTURE LIPID PANEL BASIC [SQLIPB] Order #: [id number] FUTURE Prescriptions as of 11/20/2017 Sig: X [...] hemorrhage [K92.2] INVALID FOR* Encounter Status:Closed by ROVERTO PRODUSER on 05/24/18 [place] ABS GR + CBC Collected: 11/15/2017 Status: F Source: [place] 8:55 AM [facility] REPOSITORY TYPE CODE TESTS RESULT OUT OF REFERENCE UNITS RANGE LAB WWBC 3.70-11.00 k/uL [place] WBC 4.58 LAB WRBC 3.90-5.20 m/uL Low [place] RBC 3.02 LAB WHGB 11.5-15.5 g/dL Low [place] Hemoglobin 9.5 LAB WHCT 36.0-46.0 % Low [place] Hematocrit 30.3 LAB WMCV 80.0-100.0 fL [place] High MCV 100.3 LAB WMCH 26.0-34.0 pg [place] MCH 31.5 LAB WMCHC 30.5-36.0 g/dL [place] MCHC 31.4 LAB WRDW 11.5-15.0 % [place] High RDW 17.7 LAB WPLT 150-400 k/uL Low [place] Platelet Cnt 104 LAB WMPV 9.0-12.7 fL [place] MPV 11.0 Result Comment: Test performed at: [facility] [place] [address] [place], [place] [address] [place] [address]. LAB ABGRAN 1.45-7.50 k/uL Absol Gran 3.76 Count IRON AND TIBC Collected: 11/15/2017 Status: F Source: [place] 8:55 AM [facility] REPOSITORY TYPE CODE TESTS RESULT OUT OF REFERENCE UNITS RANGE LAB IRN 41-186 ug/dL Iron 49 LAB TIBC 232-386 ug/dL TIBC 239 LAB SAT 15-57 % Transferrin Saturatn 21 Performed By: #### IRON, FERR #### [facility] [address] [place], [place] [address] FERRITIN Collected: 11/15/2017 Status: F Source: [place] 8:55 AM [facility] REPOSITORY TYPE CODE TESTS RESULT OUT OF REFERENCE UNITS RANGE LAB FERR 14.7-205.1 ng/mL Ferritin 203.6 Performed By: #### IRON, FERR #### [facility] [address] [place], [place] [address] PROTHROMBIN TIME W/INR Collected: 11/08/2017 Status: F Source: [place] 11:07 AM [facility] REPOSITORY TYPE CODE TESTS RESULT OUT OF RANGE REFERENCE UNITS LAB L300.4150 11.7-14.9 SECONDS High PROTIME 29.4 LAB L300.4200 Normal INR 2.8 Performed By: #### L300.3900 #### [facility] [address] [place], [address] FR[place]IC ABS GR + CBC Collected: 11/08/2017 Status: F Source: [place] 9:12 AM [facility] REPOSITORY TYPE CODE TESTS RESULT OUT OF REFERENCE UNITS RANGE LAB WWBC 3.70-11.00 k/uL [place] WBC 3.92 LAB WRBC 3.90-5.20 m/uL Low [place] RBC 3.06 LAB WHGB 11.5-15.5 g/dL Low [place] Hemoglobin 9.7 LAB WHCT 36.0-46.0 % Low [place] Hematocrit 30.3 LAB WMCV 80.0-100.0 fL [place] MCV 99.0 LAB WMCH 26.0-34.0 pg [place] MCH 31.7 LAB WMCHC 30.5-36.0 g/dL [place] MCHC 32.0 LAB WRDW 11.5-15.0 % [place] High RDW 17.5 LAB WPLT 150-400 k/uL Low [place] Platelet Cnt 75 LAB WMPV 9.0-12.7 fL [place] MPV 11.0 Result Comment: Test performed at: [facility] [place] [address] [place] [address] Rd[address] [place] [address]. LAB ABGRAN 1.45-7.50 k/uL [place]ol Gran 3.18 Count [place] ABS GR + CBC Collected: 11/01/2017 Status: F Source: [place] 9:10 AM [facility] REPOSITORY TYPE CODE TESTS RESULT OUT OF REFERENCE UNITS RANGE LAB WWBC 3.70-11.00 k/uL [place] WBC 4.44 LAB WRBC 3.90-5.20 m/uL Low [place] RBC 2.55 LAB WHGB 11.5-15.5 g/dL Low [place] Hemoglobin 8.1 LAB WHCT 36.0-46.0 % Low [place] Hematocrit 26.1 LAB WMCV 80.0-100.0 fL [place] High MCV 102.4 LAB WMCH 26.0-34.0 pg [place] MCH 31.8 LAB WMCHC 30.5-36.0 g/dL [place] MCHC 31.0 LAB WRDW 11.5-15.0 % [place] High RDW 18.9 LAB WPLT 150-400 k/uL Low [place] Platelet Cnt 76 LAB WMPV 9.0-12.7 fL [place] MPV 10.8 Result Comment: Test performed at: [facility], [address] [place] [address]. LAB ABGRAN 1.45-7.50 k/uL Absol Gran 3.76 Count TYPE AND SCREEN Collected: 11/01/2017 Status: F Source: [place] 9:10 AM [facility] REPOSITORY Order Comment: PRETRANSFUSION HGB = 8.1 HCT = 26.1 PERFORMED AT [facility] CMV NEG?* N Give When? 11/02/17 @0900 Irradiated? N Leukodepleted? Y Reason for Type AND Screen/Red Cells: ANEMIA TYPE CODE TESTS RESULT OUT OF RANGE REFERENCE UNITS LAB B10.0800 A Normal BLOOD TYPE GEL POSITIVE LAB B100.4000 Normal Antibody NEGATIVE Screen Performed By: #### B101.7450 #### [facility] [address] [place], [address] Collected: 11/01/2017 Status: F Source: [place] 9:10 AM [facility] REPOSITORY TYPE CODE TESTS RESULT OUT OF REFERENCE UNITS RANGE LAB U100.0000 [id number] TRANSFUSED PRODUCT: T AND S with Crossmatch, Red Cells COUNT: 2 Performed By: #### U100.0000 #### [facility] - refer to report for specific site PROGRESS Observed: 10/31/2017 Status: COMPLETED Source: [place] 3:46 PM [facility] REPOSITORY HNO ID: [id number] Author: Steve Suero Service: (none) Author Type: Physician Type: Progress Notes Filed: 10/31/2017 4:10 PM Note Text: HPI: [place] is a 76 year old female who presents for New Patient (iron deficiency). Pt is here to have a capsule endoscopy. Pt had an EGD about 3-4 mos ago at [place]. No source of bleeding on that exam. Pt has seen Dr. Silvino reyes at [facility] and is scheduled for a colonoscopy on [...] hyperlipidemia 08/15/2005 - PSVT (paroxysmal supraventricular tachycardia) ([facility]) 04/10/2011 - Sleep apnea - Type II or unspecified type diabetes mellitus without mention of complication, not stated as uncontrolled 08/15/2005 - Unspecified asthma(493.90) 08/15/2005 - Unspecified cardiovascular disease heart cath 12/15 PAST SURGICAL HISTORY Procedure Laterality Date - COLONOSCOP W/ OR W/O [facility] SPEC 10/17/05 - COLONOSCOP W/ OR W/O [facility] SPEC 08/25/2009 Colonoscopy - COLONOSCOP W/ OR W/O [facility] SPEC 10/17/2012 Colonoscopy - EGD 01/16/05 - EGD W/O OR W/BRUSH/WASH 08/25/2009 EGD - EGD W/O OR W/BRUSH/WASH 04/05/15 EGD inpt [facility] - EGD W/O OR W/BRUSH/WASH 10/30/2016 EGD [...] Yes Partners with: Male control/protection: Surgical Comment: [facility] Social History Narrative 2015: Lives with spouse. [...] MD CNOV Observed: 10/31/2017 Status: COMPLETED Source: [place] 2:45 PM [facility] [place] REPOSITORY Office Visit (AGGASTACC) E[place]I [place] ([id number]) 1940 F TXT Date Time Provider Department 10/31/17 2:45 PM STEVE SUERO RAY AGGASTACC During your visit today, we recorded the following information about you: Blood pressure Weight Height 72/52 62.6 kg 1.575 m Steve Suero MD 10/31/2017 4:10 PM Signed HPI: [place] is a 76 year old female who presents for New Patient (iron deficiency). Pt is here ANDquot;to have a capsule endoscopy.ANDquot; Pt had an EGD about 3-4 mos ago at [place]. No source of bleeding on that exam. Pt has seen Dr. Silvino Howard up at [facility] and is scheduled for a colonoscopy on [...] 08/25/2009 Colonoscopy - COLONOSCOP W/ OR W/O [facility] SPEC 10/17/2012 Colonoscopy - EGD 01/16/05 - EGD W/O OR W/BRUSH/WASH 08/25/2009 EGD - EGD W/O OR W/BRUSH/WASH 04/05/15 EGD inpt [facility] - EGD W/O OR W/BRUSH/WASH 10/30/2016 EGD [...] Steve Suero MD Referring Provider: SILVINO HU [[id number]] Allergies As of Date: 10/31/2017 Noted Allergy [...] tablet by mouth once d* BLOOD-GLUCOSE METER, DRLADY-TYP* Accu-Check Compact Plus Meter* LEVOTHYROXINE 50 MCG [...] of Service: NEW PATIENT VISIT LEVEL 3 [[id number]] Disposition: Return if symptoms worsen or fail to improve, for if capsule desired down here. Follow-up and Disposition History Recorded Encounter Status:Closed by STEVE SUERO MD on 10/31/17 [place] ABS GR + CBC Collected: 10/25/2017 Status: F Source: [place] 9:00 AM [facility] REPOSITORY TYPE CODE TESTS RESULT OUT OF REFERENCE UNITS RANGE LAB WWBC 3.70-11.00 k/uL [place] WBC 3.81 LAB WRBC 3.90-5.20 m/uL Low [place] RBC 3.00 LAB WHGB 11.5-15.5 g/dL Low [place] Hemoglobin 9.2 LAB WHCT 36.0-46.0 % Low [place] Hematocrit 29.7 LAB WMCV 80.0-100.0 fL [place] MCV 99.0 LAB WMCH 26.0-34.0 pg [place] MCH 30.7 LAB WMCHC 30.5-36.0 g/dL [place] MCHC 31.0 LAB WRDW 11.5-15.0 % [place] High RDW 17.8 LAB WPLT 150-400 k/uL Low [place] Platelet Cnt 74 Result Comment: NO CLOT DETECTED LAB WMPV 9.0-12.7 fL [place] MPV 11.6 Result Comment: Test performed at: [facility], [address] [place] [address] Rd., [place] [address]. LAB ABGRAN 1.45-7.50 k/uL Absol Gran 2.86 Count IRON AND TIBC Collected: 10/25/2017 Status: F Source: [place] 9:00 AM [facility] REPOSITORY TYPE CODE TESTS RESULT OUT OF REFERENCE UNITS RANGE LAB IRN 41-186 ug/dL Iron 71 LAB TIBC 232-386 ug/dL TIBC 261 LAB SAT 15-57 % Transferrin Saturatn 27 Performed By: #### IRON, FERR #### [facility] [address] [place], [place] [address] FERRITIN Collected: 10/25/2017 Status: F Source: [place] 9:00 AM [facility] REPOSITORY TYPE CODE TESTS RESULT OUT OF REFERENCE UNITS RANGE LAB FERR 14.7-205.1 ng/mL High Ferritin 809.1 Performed By: #### IRON, FERR #### [facility] [address] [place], [place] [address] PROTHROMBIN TIME W/INR Collected: 10/19/2017 Status: F Source: [place] 10:13 AM [facility] REPOSITORY TYPE CODE TESTS RESULT OUT OF RANGE REFERENCE UNITS LAB L300.4150 11.7-14.9 SECONDS High PROTIME 30.8 LAB L300.4200 Normal INR 2.9 Performed By: #### L300.3900 #### [facility] [address] [place], [address] PROGRESS Observed: 10/18/2017 Status: COMPLETED Source: [place] 3:58 PM [facility] REPOSITORY HNO ID: [id number] Author: Arlene (Rn) ANDRES Marrero Service: (none) Author Type: Registered Nurse Type: Progress Notes Filed: 10/18/2017 4:01 PM Note Text: Spoke with Mrs Emani Louis re: scheduling of capsule endoscopy of small bowel. She prefers NOT to got to [facility] in [place]. She plans on contacting [facility] to schedule there. If they can not accomodate her availability, she will call [facility] and schedule here. Chance Marrero RN FR[place]ER[place] ABS GR + CBC Collected: 10/18/2017 Status: F Source: [place] 9:06 AM [facility] REPOSITORY TYPE CODE TESTS RESULT OUT OF REFERENCE UNITS RANGE LAB WWBC 3.70-11.00 k/uL Low [place] WBC 3.62 LAB WRBC 3.90-5.20 m/uL Low [place] RBC 3.35 LAB WHGB 11.5-15.5 g/dL Low [place] Hemoglobin 10.0 LAB WHCT 36.0-46.0 % Low [place] Hematocrit 32.2 LAB WMCV 80.0-100.0 fL [place] MCV 96.1 LAB WMCH 26.0-34.0 pg [place] MCH 29.9 LAB WMCHC 30.5-36.0 g/dL [place] MCHC 31.1 LAB WRDW 11.5-15.0 % [place] High RDW 16.6 LAB WPLT 150-400 k/uL Low [place] Platelet Cnt 84 LAB WMPV 9.0-12.7 fL [place] MPV 11.0 Result Comment: Test performed at: [facility] [place], [address] [place] [address]. LAB ABGRAN 1.45-7.50 k/uL Absol Gran 2.94 Count HOSP Observed: 10/18/2017 Status: COMPLETED Source: [place] 12:00 AM [facility] REPOSITORY Patient Update (GASTMN) EMANI LOUIS ([id number]) 1940 F TXT Date Time Provider Department 10/18/17 ARLENE MARRERO (RN) GASTMN During your visit today, we recorded the following information about you: Arlene Marrero RN, RN 10/18/2017 4:01 PM Signed Spoke with Mrs Zhong Missy re: scheduling of capsule endoscopy of small bowel. She prefers NOT to got to [facility] in [place]. She plans on contacting [facility] to schedule there. If they can not accomodate her availability, she will call [facility] and schedule here. Chance Marrero RN Allergies As of Date: 10/18/2017 Noted Allergy Reaction AMBIEN (ZOLPIDEM TARTRATE) 09/06/2005 16 - Unknown ATIVAN (LORAZEPAM) 09/06/2005 14 - Other: See Comments Comments: just didn't work MOBIC (MELOXICAM) 09/06/2005 16 - Unknown PAMELOR (NORTRIPTYLINE HCL) 09/06/2005 16 - Unknown Date Reviewed: 10/18/2017 Reviewed by: Manda Clifford, RN, RN - Fully Assessed Prescriptions as [...] 10/18/17 CNOV Observed: 10/16/2017 Status: COMPLETED Source: [place] 4:10 PM [facility] REPOSITORY Office Visit (GASTMN) EMANI LOUIS ([id number]) 1940 F TXT Date Time Provider Department 10/16/17 4:10 PM SILVINO HU GASTMD During your visit today, we recorded the following information about you: Temperature Pulse Blood pressure Weight 97.1 degrees 103/minute 109/45 63.5 kg Height 1.575 m Silvino Hu MD 10/18/2017 2:00 PM Signed [facility] NOTE NAME: EMANI [place]OUIS CLINIC NO.: [id number] DATE OF SERVICE: 10/16/2017 Office visit HISTORY: [...] soft, nontender. MEDICATIONS: Include Effexor, thyroid, Protonix, Geneva, magnesium, Lantus, Humalog, Desyrel, Lipitor, Lasix, vitamin [...] patient. Sincerely, DICTATED BY: Elza Chan/Palmer JOB# [id number] Silvino Hu MD 10/16/2017 4:19 PM Signed Please zachariah above as close to [place] as possible. Manager Integrated: Transcribed Clinic Note (gareth) ID: [id number] Author: SILVINO HU Signed by SILVINO HU MD on 10/18/2017 at 2:00 PM Document text: [facility] NOTE NAME: EMANI [place]IS CLINIC NO.: [id number] DATE OF SERVICE: 10/16/2017 Office visit HISTORY: [...] soft, nontender. MEDICATIONS: Include Effexor, thyroid, Protonix, Geneva, magnesium, Lantus, Humalog, Desyrel, Lipitor, Lasix, vitamin [...] patient. Sincerely, DICTATED BY: Elza Chan/Palmer JOB# [id number] Display document [id number] only Referring Provider: YARA GARAY [[id number]] Allergies As of Date: 10/16/2017 Noted Allergy [...] Anticoagulant long-term use [Z79.01] Order(s):COLONOSCOPY - DIAGNOSTIC [[id number]] Order #: [id number] FUTURE peg 3350-Electrolytes (GOLYTELY) 236-22.74-6.74 - 5.86 gram suspensionRefer to printed patient instructions that will be mailed to you.Disp: 4 LRfl: 0 US ABD RT UPPER QUADRANT [[id number]] Order #: [id number] FUTURE CAPSULE ENDOSCOPY SMALL BOWEL [[id number]] Order #: [id number] FUTURE Prescriptions as of 10/16/2017 Sig: LANCETS [...] WARFARIN 2 MG TABLET >> Teepree Torres [employer] 10/16/2017 3:48 PM >> TORRES [employer], TEEPREE e Oct 16, 2017 3:48 PM Taking 2 1/2 mg daily ONDANSETRON 4 MG DISINTEGRATING TABLET >> Teepree Torres [employer] 10/16/2017 3:47 PM >> TORRES [employer], TEEPREE e Oct 16, 2017 3:47 PM [...] clinician: Please zachariah above as close to [place] as possible. Prescriptions ordered this encounter Disp Refills Start End PEG 3350-ELECTROLYTES 236 GRAM-22.74* 4 L 0 10/16/2017 Sig: Refer to printed patient instructions that will be mailed to you. Encounter Status:Closed by SILVINO HU MD on 10/18/17 PROGRESS Observed: 10/16/2017 Status: COMPLETED Source: [place] 12:00 AM [facility] REPOSITORY O ID: [id number] Author: Silvino Hu Service: Abstract Author Type: Physician Type: Progress Notes Filed: 10/18/2017 2:00 PM Note Text: [facility] NOTE NAME: EMANI [place] [facility] NO.: [id number] DATE OF SERVICE: 10/16/2017 Office visit HISTORY: [...] soft, nontender. MEDICATIONS: Include Effexor, thyroid, Protonix, Geneva, magnesium, Lantus, Humalog, Desyrel, Lipitor, Lasix, vitamin [...] patient. Sincerely, DICTATED BY: Elza Chan/Palmer JOB# [id number] FR[place]ERIC ABS GR + CBC Collected: 10/11/2017 Status: F Source: [place] 9:04 AM [facility] REPOSITORY TYPE CODE TESTS RESULT OUT OF REFERENCE UNITS RANGE LAB WWBC 3.70-11.00 k/uL Low [place] WBC 3.28 LAB WRBC 3.90-5.20 m/uL Low [place] RBC 3.40 LAB WHGB 11.5-15.5 g/dL Low [place] Hemoglobin 10.0 LAB WHCT 36.0-46.0 % Low [place] Hematocrit 32.5 LAB WMCV 80.0-100.0 fL [place] MCV 95.6 LAB WMCH 26.0-34.0 pg [place] MCH 29.4 LAB WMCHC 30.5-36.0 g/dL [place] MCHC 30.8 LAB WRDW 11.5-15.0 % [place] High RDW 16.2 LAB WPLT 150-400 k/uL Low [place] Platelet Cnt 81 LAB WMPV 9.0-12.7 fL [place] MPV 11.3 Result Comment: Test performed at: [facility] [place], [address] [place] [address]. LAB ABGRAN 1.45-7.50 k/uL Absol Gran 2.59 Count CNPN Observed: 10/09/2017 Status: COMPLETED Source: [place] 12:00 AM [facility] REPOSITORY Telephone (FIORELLA) EMANI LOUIS ([id number]) 1940 F TXT Date Time Provider Department 10/09/17 YARA GARAY During your visit today, we recorded the following information about you: Yara Garay MD 10/09/2017 8:42 AM Signed Please call and schedule patient for INJECTAFER 750mg IV weekly x 2 ( She is coming on ) Component Latest Ref Rng ANDamp; Units 10/08/2017 WBC, [place] 3.70 - 11.00 k/uL 3.74 RBC, [place] 3.90 - 5.20 m/uL 3.82 (L) Hemoglobin, [place] 11.5 - 15.5 g/dL 11.3 (L) Hematocrit, [place] 36.0 - 46.0 % 36.4 MCV, [place] 80.0 - 100.0 fL 95.3 MCH, [place] 26.0 - 34.0 pg 29.6 MCHC, [place] 30.5 - 36.0 g/dL 31.0 RDW, [place] 11.5 - 15.0 % 17.0 (H) Platelet Cnt, [place] 150 - 400 k/uL 91 (L) MPV, [place] 9.0 - 12.7 fL 10.9 Absol Gran Count 1.45 - 7.50 k/uL 2.92 Iron 41 - 186 ug/dL 33 (L) TIBC 232 - 386 ug/dL 320 Transferrin Saturation 15 - 57 % 10 (L) Ferritin 14.7 - 205.1 ng/mL 49.8 MD [facility] 10/09/2017 9:50 AM Signed Left message for [...] Unknown Date Reviewed: 10/08/2017 Reviewed by: Celia Reyes LPN - Fully Assessed Reason for Visit: [...] INVALID FOR* Encounter Status:Closed by SHERLYN GRADY on 10/09/17 PROGRESS Observed: 10/08/2017 Status: COMPLETED Source: [place] 9:57 AM [facility] REPOSITORY [facility] ID: [id number] Author: Yara Garay Service: (none) Author Type: Physician Type: Progress Notes Filed: 10/09/2017 9:10 AM Note Text: PATIENT NAME: Emani Louis. CLINIC NO: [id number]. ATTENDING PHYSICIAN: Yara Garay MD. DATE OF [...] Latest Ref Rng AND Units 10/08/2017 WBC, [place] 3.70 - 11.00 k/uL 3.74 RBC, [place] 3.90 - 5.20 m/uL 3.82 (L) Hemoglobin, [place] 11.5 - 15.5 g/dL 11.3 (L) Hematocrit, [place] 36.0 - 46.0 % 36.4 MCV, [place] 80.0 - 100.0 fL 95.3 MCH, [place] 26.0 - 34.0 pg 29.6 MCHC, [place] 30.5 - 36.0 g/dL 31.0 RDW, [place] 11.5 - 15.0 % 17.0 (H) Platelet Cnt, [place] 150 - 400 k/uL 91 (L) MPV, [place] 9.0 - 12.7 fL 10.9 Absol Gran [...] with more than 50% of the total gpbi-kn-ejvm time of the visit in counseling / coordination of care. - avoid aspirin and NSAIDs; dietary consult to maintain a proper diet with warfarin therapy. - repeat CBC, CMP, iron study OV in 3 months. ? Yara Garay MD. ELECTRONICALLY SIGNED ? Cc: Dr. Eddie Hu. CNOVSP Observed: 10/08/2017 Status: COMPLETED Source: [place] 9:30 AM [facility] REPOSITORY Visit (SP) Office (FIORELLA) EMANI LOUIS ([id number]) 1940 F TXT Date Time Provider Department 10/08/17 9:30 AM YARA GARAY During your visit today, we recorded the following information about you: Temperature Pulse Blood pressure Weight 97.4 degrees 108/minute 62/39 63 kg Celia Reyes LPN 10/08/2017 9:44 AM Signed Est patient, four month ov. Discuss recent labs. Celia Garay MD 10/09/2017 9:10 AM Signed PATIENT NAME: Emani Louis. CLINIC NO: [id number]. ATTENDING PHYSICIAN: Yara Garay MD. DATE OF [...] Latest Ref Rng ANDamp; Units 10/08/2017 WBC, [place] 3.70 - 11.00 k/uL 3.74 RBC, [place] 3.90 - 5.20 m/uL 3.82 (L) Hemoglobin, [place] 11.5 - 15.5 g/dL 11.3 (L) Hematocrit, [place] 36.0 - 46.0 % 36.4 MCV, [place] 80.0 - 100.0 fL 95.3 MCH, [place] 26.0 - 34.0 pg 29.6 MCHC, [place] 30.5 - 36.0 g/dL 31.0 RDW, [place] 11.5 - 15.0 % 17.0 (H) Platelet Cnt, [place] 150 - 400 k/uL 91 (L) MPV, [place] 9.0 - 12.7 fL 10.9 Absol Gran [...] with more than 50% of the total jikl-xu-bvor time of the visit in counseling / coordination of care. - avoid aspirin and NSAIDs; dietary consult to maintain a proper diet with warfarin therapy. - repeat CBC, CMP, iron study OV in 3 months. ? Yara Garay MD. ELECTRONICALLY SIGNED ? Cc: Dr. [facility] Dr. Silvino Hu. Referring Provider: YARA GARAY [[id number]] Allergies As of Date: 10/08/2017 Noted Allergy Reaction AMBIEN (ZOLPIDEM TARTRATE) 09/06/2005 16 - Unknown ATIVAN (LORAZEPAM) 09/06/2005 14 - Other: See Comments Comments: just didn't work MOBIC (MELOXICAM) 09/06/2005 16 - Unknown PAMELOR (NORTRIPTYLINE HCL) 09/06/2005 16 - Unknown Date Reviewed: 10/08/2017 Reviewed by: Celia Reyes LPN - Fully Assessed Reason for Visit: Established Patient [175] Primary Visit Diagnosis:Anemia in stage 3 chronic kidney disease [N18.3, D63.1] Other Visit Diagnoses:Chronic kidney disease, stage III (moderate) [N18.3] Thrombocytopenia, unspecified (HCC) [D69.6] Gastrointestinal hemorrhage, unspecified gastrointestinal hemorrhage type [K92.2] Anticoagulant long-term use [Z79.01] Iron deficiency anemia due to chronic blood loss [D50.0] Level of Service: EST PATIENT VISIT LEVEL 4 [[id number]] Disposition: Return in about 3 months (around [...] [E55.9] INVALID FOR* Visit Notes: >> Celia Reyes LPN Mon Oct 08, 2017 9:33 AM Status: Signed Est patient, four month ov. Discuss recent labs. Celia Reyes LPN Encounter Status:Closed by YARA GARAY MD on 10/09/17 FREDERIC ABS GR + CBC Collected: 10/08/2017 Status: F Source: [place] 9:10 AM [facility] REPOSITORY TYPE CODE TESTS RESULT OUT OF REFERENCE UNITS RANGE LAB WWBC 3.70-11.00 k/uL [place] WBC 3.74 LAB WRBC 3.90-5.20 m/uL Low [place] RBC 3.82 LAB WHGB 11.5-15.5 g/dL Low [place] Hemoglobin 11.3 LAB WHCT 36.0-46.0 % [place] Hematocrit 36.4 LAB WMCV 80.0-100.0 fL [place] MCV 95.3 LAB WMCH 26.0-34.0 pg [place] MCH 29.6 LAB WMCHC 30.5-36.0 g/dL [place] MCHC 31.0 LAB [place]DW 11.5-15.0 % [place] High RDW 17.0 LAB WPLT 150-400 k/uL Low [place] Platelet Cnt 91 LAB WMPV 9.0-12.7 fL [place] MPV 10.9 Result Comment: Test performed at: [facility] [place], [address] [place] [address]. LAB ABGRAN 1.45-7.50 k/uL Absol Gran 2.92 Count IRON AND TIBC Collected: 10/08/2017 Status: F Source: [place] 9:10 AM [facility] REPOSITORY TYPE CODE TESTS RESULT OUT OF REFERENCE UNITS RANGE LAB IRN 41-186 ug/dL Low Iron 33 LAB TIBC 232-386 ug/dL TIBC 320 LAB SAT 15-57 % Low Transferrin Saturatn 10 Performed By: #### IRON, CMP, FERR #### [facility] [address] [place] [address] COMP METABOLIC PANEL Collected: 10/08/2017 Status: F Source: [place] 9:10 AM [facility] REPOSITORY TYPE CODE TESTS RESULT OUT OF REFERENCE UNITS RANGE LAB TP 6.3-8.0 g/dL Protein, Total 7.0 LAB ALB 3.9-4.9 g/dL Albumin 4.0 LAB CA 8.5-10.2 mg/dL Calcium, Total 9.2 LAB TBIL 0.2-1.3 mg/dL Bilirubin, Total 0.5 LAB ALKP 32-117 U/L Alkaline Phosphatase 71 LAB AST 13-35 U/L Low AST 9 LAB GLU 74-99 mg/dL Glucose High 116 Result Comment: The [place] [employer] Association (ADA) provides guidance for cutoff [...] Standards of Medical Care in Diabetes 2016, [place] [employer]. Diabetes Care. 2016.39(Suppl 1). LAB [...] Performed By: #### IRON, CMP, FERR #### [facility] [address] [place] [id number] FERRITIN Collected: 10/08/2017 Status: F Source: [place] 9:10 AM [facility] REPOSITORY TYPE CODE TESTS RESULT OUT OF REFERENCE UNITS RANGE LAB FERR 14.7-205.1 ng/mL Ferritin 49.8 Performed By: #### IRON, CMP, FERR #### [facility] [address] [place] [id number] BEDSIDE GLUCOSE Collected: 10/04/2017 Status: F Source: [place] 9:21 PM [facility] REPOSITORY TYPE CODE TESTS RESULT OUT OF REFERENCE UNITS RANGE LAB L501.080 70-110 mg/dL High BEDSIDE GLU 170 Result Comment: MANAGEMENT OF PATIENT CARE PER NURSING PROTOCOL Performed By: #### L501.080 #### [facility] Point of Care [address] [place], [place] [address] FREDERIC ABS GR + CBC Collected: 10/04/2017 Status: F Source: [place] 10:03 AM [facility] REPOSITORY TYPE CODE TESTS RESULT OUT OF REFERENCE UNITS RANGE LAB WWBC 3.70-11.00 k/uL [place] WBC 3.99 LAB WRBC 3.90-5.20 m/uL Low [place] RBC 2.52 LAB WHGB 11.5-15.5 g/dL Low [place] Hemoglobin 7.5 LAB WHCT 36.0-46.0 % Low [place] Hematocrit 24.7 LAB WMCV 80.0-100.0 fL [place] MCV 98.0 LAB WMCH 26.0-34.0 pg [place] MCH 29.8 LAB WMCHC 30.5-36.0 g/dL Low [place] MCHC 30.4 LAB [place]DW 11.5-15.0 % [place] High RDW 17.5 LAB WPLT 150-400 k/uL Low [place] Platelet Cnt 103 LAB WMPV 9.0-12.7 fL [place] MPV 10.9 Result Comment: Test performed at: [facility], [address] [place] [address]. LAB ABGRAN 1.45-7.50 k/uL Absol Gran 3.17 Count TYPE AND SCREEN Collected: 10/04/2017 Status: F Source: [place] 10:03 AM [facility] REPOSITORY Order Comment: PRETRANSFUSION HGB = 7.5 HCT = 24.7 PERFORMED AT [facility] CMV NEG?* N Give When? 10/04/17 TODAY Irradiated? N Leukodepleted? Y Reason for Type AND Screen/Red Cells: ANEMIA TYPE CODE TESTS RESULT OUT OF RANGE REFERENCE UNITS LAB B10.0800 A Normal BLOOD TYPE GEL POSITIVE LAB B100.4000 Normal Antibody NEGATIVE Screen Performed By: #### B101.7450 #### [facility] [address] [place], [address] Collected: 10/04/2017 Status: F Source: [place] 10:03 AM [facility] REPOSITORY TYPE CODE TESTS RESULT OUT OF REFERENCE UNITS RANGE LAB U100.0000 [id number] TRANSFUSED PRODUCT: T AND S with Crossmatch, Red Cells COUNT: 3 Performed By: #### U100.0000 #### [facility] - refer to report for specific site CNPN Observed: 10/04/2017 Status: COMPLETED Source: [place] 12:00 AM [facility] REPOSITORY Telephone (HEMAWS) EMANI [place]IS ([id number]) 1940 F TXT Date Time Provider Department 10/04/17 YARA GARAY During your visit today, we recorded the following information about you: Yara Garay MD 10/04/2017 10:36 AM Signed Type and cross 3 units LD -RBC for blood transfusion today at [facility]. Repeat CBC ANDamp; prothrombin time next week. Add iron /TIBC to lab today. Call GI- Dr. Johnson / Dr. Hu today. Celia Reyes LPN 10/04/2017 11:06 AM Signed Scheduled for 3 units PRBC's @[facility]- will call patient when blood is ready. [...] to perform an EGD YAMILA DRAPER LPN, LPN 10/05/2017 9:54 AM Signed Per message patient called and connected to scheduling to schedule ov with . ERNESTO KLINE 10/05/2017 11:05 AM Signed First available established slot not until November 24 Patient contacted and scheduled October 16 at 4:30 pm (provider's first day back from vacation) [facility] Allergies As of Date: 10/04/2017 Noted Allergy [...] [K29.01] Order(s):IRON + TIBC [SQIRON] Order #: [id number] FUTURE FERRITIN BLD [SQFERR] Order #: [id number] FUTURE Prescriptions as of 10/04/2017 Sig: VENLAFAXINE [...] Encounter Status:Closed by HOMA ELLISON on 10/04/17 CNPN Observed: 10/04/2017 Status: COMPLETED Source: [place] 12:00 AM [facility] REPOSITORY Telephone (GASTMN) EMANI L[place]IS ([id number]) 1940 F TXT Date Time Provider Department 10/04/17 SILVINO HU GASTMD During your visit today, we recorded the following information about you: [facility] 10/04/2017 11:15 AM Signed Per medical secretary, Dr Garay requests return call from provider; states the patient may be bleeding, having transfusion today [facility] Silvino Hu MD 10/04/2017 3:[address] is Dr Johnson's pt. Is he out? If not direct call to him. [facility] 10/04/2017 3:32 PM Signed Message forwarded to Dr Johnson to reply [facility] Marquise Johnson MD 10/04/2017 3:[address] Hu is mistaken, He has had at least 3 office visits with this patient. (He has dictated notes in Epic on 08/17/15, and 08/10/16). I have never seen this patient except to perform an EGD [facility] 10/04/2017 4:08 PM Signed See provider's message below [facility] Silvino Hu MD 10/05/2017 9:20 AM Signed Lina Chen. Since the call was for GI bleeding and I noticed you did an EGD 11 months ago for the same thing, I thought you were seeing her. I didn't look back another year in the chart. I will be glad to see her back here, Sandro Johnson MD 10/05/2017 9:58 AM Signed No [...] Date Reviewed: 09/27/2017 Reviewed by: Homa Hurst ([employer]) ERNESTO Ellison - Fully Assessed Reason for [...] Encounter Status:Closed by PEACE VALENTINO on 10/04/17 [place] ABS GR + CBC Collected: 09/27/2017 Status: F Source: [place] 10:38 AM [facility] REPOSITORY TYPE CODE TESTS RESULT OUT OF REFERENCE UNITS RANGE LAB WWBC 3.70-11.00 k/uL Low [place] WBC 3.18 LAB WRBC 3.90-5.20 m/uL Low [place] RBC 2.97 LAB WHGB 11.5-15.5 g/dL Low [place] Hemoglobin 8.8 LAB WHCT 36.0-46.0 % Low [place] Hematocrit 28.5 LAB WMCV 80.0-100.0 fL [place] MCV 96.0 LAB WMCH 26.0-34.0 pg [place] MCH 29.6 LAB WMCHC 30.5-36.0 g/dL [place] MCHC 30.9 LAB WRDW 11.5-15.0 % [place] High RDW 16.3 LAB WPLT 150-400 k/uL Low [place] Platelet Cnt 83 LAB WMPV 9.0-12.7 fL [place] MPV 10.8 Result Comment: Test performed at: [facility], [address] [place] [address]. LAB ABGRAN 1.45-7.50 k/uL Absol Gran 2.55 Count PROTHROMBIN TIME W/INR Collected: 09/27/2017 Status: F Source: [place] 9:48 AM [facility] REPOSITORY TYPE CODE TESTS RESULT OUT OF RANGE REFERENCE UNITS LAB L300.4150 11.7-14.9 SECONDS High PROTIME 31.5 LAB L300.4200 Normal INR 3.2 Performed By: #### L300.3900 #### [facility] [address] [place], [address] FREDERIC ABS GR + CBC Collected: 09/20/2017 Status: F Source: [place] 11:13 AM [facility] REPOSITORY TYPE CODE TESTS RESULT OUT OF REFERENCE UNITS RANGE LAB WWBC 3.70-11.00 k/uL Low [place] WBC 3.52 LAB WRBC 3.90-5.20 m/uL Low [place] RBC 2.87 LAB WHGB 11.5-15.5 g/dL Low [place] Hemoglobin 8.1 LAB WHCT 36.0-46.0 % Low [place] Hematocrit 27.8 LAB WMCV 80.0-100.0 fL [place] MCV 96.9 LAB WMCH 26.0-34.0 pg [place] MCH 28.2 LAB WMCHC 30.5-36.0 g/dL Low [place] MCHC 29.1 Result Comment: Result rechecked. LAB [place]DW 11.5-15.0 % High [place] RDW 17.1 LAB WPLT 150-400 k/uL Low [place] 89 Platelet Cnt LAB WMPV 9.0-12.7 fL [place] MPV 10.8 Result Comment: Test performed at: [facility], [address] [place] [address]. LAB ABGRAN 1.45-7.50 k/uL Absol Gran 2.84 Count TYPE AND SCREEN Collected: 09/20/2017 Status: F Source: [place] 11:10 AM [facility] REPOSITORY Order Comment: PRETRANSFUSION HGB = 8.1 HCT = 27.8 PERFORMED AT [facility] CMV NEG?* N Give When? 09/21/17 @0830 Irradiated? Y Leukodepleted? Y Reason for Type AND Screen/Red Cells: ANEMIA TYPE CODE TESTS RESULT OUT OF RANGE REFERENCE UNITS LAB B10.0800 A Normal BLOOD TYPE GEL POSITIVE LAB B100.4000 Normal Antibody NEGATIVE Screen Performed By: #### B101.7450 #### [facility] [address] [place], [address] Collected: 09/20/2017 Status: F Source: [place] 11:10 AM [facility] REPOSITORY TYPE CODE TESTS RESULT OUT OF REFERENCE UNITS RANGE LAB U100.0000 [id number] TRANSFUSED PRODUCT: T AND S with Crossmatch, Red Cells COUNT: 2 Performed By: #### U100.0000 #### [facility] - refer to report for specific site [place]ER[place] ABS GR + CBC Collected: 09/13/2017 Status: F Source: [place] 10:31 AM [facility] REPOSITORY TYPE CODE TESTS RESULT OUT OF REFERENCE UNITS RANGE LAB WWBC 3.70-11.00 k/uL Low [place] WBC 3.67 LAB WRBC 3.90-5.20 m/uL Low [place] RBC 3.30 LAB WHGB 11.5-15.5 g/dL Low [place] Hemoglobin 9.5 LAB WHCT 36.0-46.0 % Low [place] Hematocrit 31.3 LAB WMCV 80.0-100.0 fL [place] MCV 94.8 LAB WMCH 26.0-34.0 pg [place] MCH 28.8 LAB WMCHC 30.5-36.0 g/dL Low [place] MCHC 30.4 LAB WRDW 11.5-15.0 % [place] High RDW 16.4 LAB WPLT 150-400 k/uL Low [place] Platelet Cnt 97 LAB WMPV 9.0-12.7 fL [place] MPV 10.6 Result Comment: Test performed at: [facility] Frederic, [address] [place] [address]. LAB ABGRAN 1.45-7.50 k/uL Absol Gran 3.02 Count PROTHROMBIN TIME W/INR Collected: 09/13/2017 Status: F Source: FREDERIC 9:56 AM [facility] REPOSITORY TYPE CODE TESTS RESULT OUT OF RANGE REFERENCE UNITS LAB L300.4150 11.7-14.9 SECONDS High PROTIME 32.2 LAB L300.4200 Normal INR 3.3 Performed By: #### L300.3900 #### [facility] [address] [place], [address] ALLERGIES ALLERGIES DATE TYPE / NAME / CODE REACTION SEVERITY SOURCE CODE 08/20/2018 Drug nortriptyline Unknown Unknown Frederic Allergy/41 HCl/[id number](RXNO Community 8818112( RM) [facility]) Repository 08/20/2018 Drug zolpidem Unknown Unknown [place] Allergy/41 tartrate/[id number] [facility] 3285821( (RXNORM) [facility]) Repository 08/20/2018 Drug digoxin/[id number]( nausea, dry Unknown [place] Allergy/41 RXNORM) [facility] 8586590([facility] CT) Repository 08/20/2018 Drug lorazepam/[id number] Unknown Unknown Frederic Allergy/41 0(RXNORM) [facility] 3840549([facility]) Repository 08/20/2018 Drug amiodarone/[id number] vomiting, poor Unknown [place] Allergy/41 84(RXNORM) balance, [facility] 6616206([facility]) Repository 08/20/2018 Drug meloxicam/[id number] Unknown Unknown Frederic Allergy/41 2(RXNORM) [facility] 7388223([facility]) Repository 09/06/2005 DRUG ZOLPIDEM TARTRATE UNKNOWN [address] 0169410( Repository O[facility] CT) 09/06/2005 DRUG LORAZEPAM OTHER: SEE [place] [address] [place] 6839850( Repository OMED CT) 09/06/2005 DRUG MELOXICAM UNKNOWN [address] 1275733( Repository OMED CT) 09/06/2005 DRUG NORTRIPTYLINE HCL UNKNOWN [place] [address] [place] 1137910( Repository OMED CT) NG/8727518 ZOLPIDEM TARTRATE [facility] 06([facility] [employer] [facility] CT) Repository NG/8481849 LORAZEPAM [facility] 06([employer] [facility] CT) Repository NG/3753458 MELOXICAM [facility] 06([employer] [facility] CT) Repository NG/6654201 NORTRIPTYLINE HCL [facility] 06([employer] [facility] CT) Repository ENCOUNTERS ENCOUNTERS ADMIT/DISCHARGE ACCOUNT NUMBER ADMITTING ENCOUNTER LOCATION SOURCE CLASS 09/05/2018/09/06/19 [id number] Ambulatory [address] Repository 09/05/2018/09/06/19 [id number] Ambulatory [address] Repository 08/30/2018/08/30/19 [id number] Ambulatory [address] ding:CLSP Repository 08/29/2018/08/30/19 [id number] Ambulatory [address] Repository 08/26/2018 [id number] Ambulatory [facility] ding:LAB Repository 08/22/2018/08/23/19 [id number] Ambulatory [address] Repository 08/22/2018/08/23/19 [id number] Ambulatory [address] Repository 08/20/2018/08/20/19 [id number] Ambulatory BMSBuilding: Frederic [facility] Repository 08/20/2018/08/20/19 [id number] Ambulatory BMSBuilding: Frederic 19 [facility] Repository 08/16/2018/08/16/19 [id number] Ambulatory BMSBuilding: Frederic 19 [facility] Repository 08/15/2018/08/15/19 [id number] Ambulatory [address] Repository 08/15/2018/08/16/19 [id number] Ambulatory [address] Repository 08/15/2018/08/15/19 [id number] Ambulatory [address] Repository 08/09/2018 [id number] Ambulatory [facility] ding:MEDOUTP Repository 08/08/2018/08/09/20 [id number] Ambulatory [address] Repository 08/01/2018/08/01/20 [id number] Ambulatory [address] ding:LAB Repository 08/01/2018/12/21 [id number] Ambulatory Maybeury 18 [facility] [place] Repository 08/01/2018/08/02/20 [id number] Ambulatory [address] [place] Repository 07/26/2018 [id number] [facility] Repository 07/25/2018/07/25/20 [id number] Ambulatory [address] [place] Repository 07/25/2018/07/26/20 [id number] Ambulatory [address] [place] Repository 07/19/2018 [id number] [facility] Repository 07/18/2018/07/19/20 [id number] Ambulatory [address] [place] Repository 07/11/2018/07/11/20 [id number] Ambulatory [address] [place] Repository 07/11/2018/07/12/20 [id number] Ambulatory [address] [place] Repository 07/09/2018/07/10/20 [id number] Ambulatory [address] [place] Repository 07/08/2018/07/12/20 [id number] Ambulatory [place]orton Lorton[address] ding:LAB Repository 07/06/2018/07/06/20 [id number] Ambulatory [place]orton [address] [place] [address] ding:MS3OUT Repository 07/05/2018/07/05/20 [id number] Ambulatory [address] [place] Repository 07/02/2018/07/03/20 [id number] Ambulatory [place] [address] [facility] [place] Repository 06/27/2018/06/27/20 [id number] Ambulatory Maybeury 18 [facility] [place] Repository 06/27/2018/06/28/20 [id number] Ambulatory [address] [place] Repository 06/27/2018/06/27/20 [id number] Ambulatory Maybe[facility] 18 [facility] [place] Repository 06/27/2018/06/28/20 [id number] Ambulatory [address] [place] Repository 06/21/2018 [id number] [facility]P Repository 06/20/2018/06/21/20 [id number] Ambulatory [address] [place] Repository 06/13/2018/11/02 [id number] Ambulatory [address] [place] Repository 06/13/2018/06/14/20 [id number] Ambulatory [address] [place] Repository 06/06/2018/06/06/20 [id number] Ambulatory [address] [place] Repository 06/06/2018/06/06/20 [id number] Ambulatory [address] [place] Repository 06/03/2018/06/03/20 [id number] Ambulatory BMSBuilding: Frederic 18 [facility] Repository 05/31/2018 [id number] [facility] Repository 05/30/2018/05/30/20 [id number] Ambulatory Frederic[address] ding:LAB Repository 05/30/2018/05/31/20 [id number] Ambulatory [address] [place] Repository 05/23/2018/05/24/20 [id number] Ambulatory [address] [place] Repository 05/23/2018/05/24/20 [id number] Ambulatory [address] [place] Repository 05/17/2018 [id number] [facility] Repository 05/16/2018/05/17/20 [id number] Ambulatory [address] [place] Repository 05/09/2018/05/10/20 [id number] Ambulatory [address] [place] Repository 05/09/2018/05/09/20 [id number] Ambulatory [address] [place] Repository 05/07/2018/05/08/20 [id number] Ambulatory [address] [place] Repository 05/03/2018 [id number] [facility] Repository 05/03/2018/05/03/20 [id number] Ambulatory [place] Frederic[address] ding:LAB Repository 05/02/2018/05/02/20 [id number] Ambulatory [address] [place] Repository 05/02/2018/05/02/20 [id number] Ambulatory [address] [place] Repository 04/26/2018 [id number] [facility] Repository 04/25/2018/04/26/20 [id number] Ambulatory [address] [place] Repository 04/19/2018 [id number] [facility] Repository 04/18/2018/04/19/20 [id number] Ambulatory [address] [place] Repository 04/18/2018/04/18/20 [id number] Ambulatory [address] [place] Repository 04/12/2018 [id number] Ambulatory [facility] ding:MEDOUTP Repository 04/11/2018/04/12/20 [id number] Ambulatory [address] [place] Repository 04/11/2018/04/11/20 [id number] Ambulatory [address] [place] Repository 04/09/2018/04/09/20 [id number] Ambulatory BMSBuilding: Lorton 18 [facility] Repository 04/04/2018/04/05/20 [id number] Ambulatory [address] [place] Repository 03/29/2018/03/29/20 [id number] Ambulatory BMSBuilding: Rfederic 18 [facility] Repository 03/29/2018 [id number] Ambulatory [facility] ding:MEDOUTP Repository 03/28/2018/03/29/20 [id number] Ambulatory [address] [place] Repository 03/28/2018/03/28/20 [id number] Ambulatory [address] [place] Repository 03/22/2018/03/25/20 [id number] Ambulatory Maybe[place] 18 [facility] [place] Repository 03/21/2018/03/22/20 [id number] Ambulatory [place] 18 [facility] [place] Repository 03/14/2018/03/15/20 [id number] Ambulatory Maybe[place] 18 [facility] [place] Repository 03/14/2018/03/15/20 [id number] Ambulatory Maybe[place] 18 [facility] [place] Repository 03/14/2018/03/14/20 [id number] Ambulatory Frederic[address] ding:LAB Repository 03/07/2018/03/08/20 [id number] Ambulatory [facility] 18 [facility] [place] Repository 02/28/2018/03/01/20 [id number] Ambulatory Vo[address] [place] Repository 02/28/2018/03/01/20 [id number] Ambulatory [address] [place] Repository 02/22/2018 [id number] [facility] Repository 02/22/2018 [id number] Ambulatory BMSBuilding: Frederic BMS.[facility] Repository 02/21/2018/03/12/20 [id number] Ambulatory [place] Frederic [address] [place] [address] ding:LAB Repository 02/21/2018/02/23/20 [id number] Ambulatory [address] [place] Repository 02/14/2018/02/16/20 [id number] Ambulatory [address] [place] Repository 02/14/2018/02/16/20 [id number] Ambulatory [address] [place] Repository 02/08/2018/02/12/20 [id number] Ambulatory [address] [place] Repository 02/07/2018/02/09/20 [id number] Ambulatory [address] [place] Repository 02/06/2018/02/07/20 [id number] Ambulatory [address] [place] Repository 02/06/2018/02/07/20 [id number] LATISHA MCKEON Ambulatory [address] [place] Repository 02/05/2018 [id number] Ambulatory BMSBuilding: Frederic [facility] Repository 02/05/2018/02/06/20 [id number] Ambulatory Frederic [address] ding:LAB Repository 01/31/2018/02/02/20 [id number] Ambulatory [address] [place] Repository 01/31/2018 [id number] Ambulatory [facility] [place] Repository 01/31/2018/02/01/20 [id number] Ambulatory [address] [place] Repository 01/24/2018 [id number] Ambulatory [facility] [place] Repository 01/24/2018/01/26/20 [id number] Ambulatory [address] [place] Repository 01/21/2018/01/22/20 [id number] Ambulatory [address] [place] Repository 01/21/2018 [id number] Ambulatory [facility] [place] Repository 01/21/2018 [id number] Ambulatory [facility] [place] Repository 01/17/2018/01/19/20 [id number] Ambulatory [address] [place] Repository 01/17/2018/01/19/20 [id number] Ambulatory [address] [place] Repository 01/09/2018/01/14/20 [id number] QUINTON, Inpatient Maybeury 18 [facility] [place] Repository 01/07/2018/01/10/20 [id number] CALIXTOMELISSA, Inpatient [address] Other [place] Repository 01/07/2018/01/10/20 [id number] [facility] [place] [address] MEDICAL Repository CENTERBuildi ng:MICURoom: 4824Bed: 01/07/2018/01/08/20 [id number] Emergency [address] ding:ED Repository 01/04/2018 [id number] Ambulatory [facility] ding:MEDOUTP Repository 01/03/2018/01/05/20 [id number] Ambulatory [address] [place] Repository 01/03/2018/01/04/20 [id number] Ambulatory [address] [place] Repository 12/25/2017/12/27/19 [id number] Ambulatory [address] [place] Repository 12/25/2017/12/27/19 [id number] Ambulatory [address] [place] Repository 12/20/2017/12/21/19 [id number] Ambulatory [address] ding:LAB Repository 12/20/2017/12/21/19 [id number] Ambulatory [address] [place] Repository 12/20/2017/12/22/19 [id number] Ambulatory [address] [place] Repository 12/20/2017/12/22/19 [id number] Ambulatory [address] [place] Repository 12/17/2017/12/19/19 [id number] Ambulatory [address] [place] Repository 12/17/2017/12/18/19 [id number] Ambulatory [address] [place] Repository 12/14/2017 [id number] Ambulatory [facility] Other [place] Repository 12/14/2017 [id number] Ambulatory [facility] Other [place] Repository 12/13/2017/12/14/19 [id number] Ambulatory Frederic L[place] 18 [facility] ding:MEDOUTP Repository 12/13/2017/12/15/19 [id number] Ambulatory [address] [place] Repository 12/06/2017/12/07/19 [id number] Ambulatory Frederic Lorton 18 [facility] ding:LAB Repository 12/06/2017/12/07/19 [id number] Ambulatory [address] [place] Repository 12/06/2017/12/07/19 [id number] Ambulatory [address] [place] Repository 12/04/2017/12/06/19 [id number] Ambulatory [address] [place] Repository 12/03/2017/12/04/19 [id number] Ambulatory [address] [place] Repository 11/29/2017/12/01/19 [id number] Ambulatory [address] [place] Repository 11/29/2017/12/01/19 [id number] Ambulatory [address] [place] Repository 11/27/2017/11/28/19 [id number] Ambulatory BMSBuilding: Lorton 18 [facility] Repository 11/27/2017/11/28/19 [id number] Ambulatory BMSBuilding: Frederic 18 [facility] Repository 11/26/2017/11/27/19 [id number] Ambulatory [address] [place] Repository 11/26/2017/11/27/19 [id number] Ambulatory [address] [place] Repository 11/23/2017 [id number] Ambulatory BMSBuilding: Frederic [facility] Repository 11/23/2017 [id number] [facility]ulatory [place] [facility] Repository 11/22/2017/11/24/19 [id number] Ambulatory [address] [place] Repository 11/22/2017/11/23/19 [id number] Ambulatory [address] [place] Repository 11/15/2017 [id number] Ambulatory [facility] [place] Repository 11/15/2017/11/17/19 [id number] Ambulatory [address] [place] Repository 11/15/2017/11/16/19 [id number] Ambulatory [address] [place] Repository 11/08/2017/11/09/19 [id number] Ambulatory L[place] Lorton [address] [place] [address] ding:LAB Repository 11/08/2017/11/09/19 [id number] Ambulatory Vo 18 [facility] [place] Repository 11/08/2017/11/10/19 [id number] Ambulatory Vo 18 [facility] [place] Repository 11/06/2017/11/07/19 [id number] Ambulatory BMSBuilding: Lorton 18 [facility] Repository 11/02/2017 [id number] Ambulatory L[place] [facility] ding:MEDOUTP Repository 11/01/2017/11/03/19 [id number] Ambulatory [address] [place] Repository 11/01/2017/11/02/19 [id number] Ambulatory [address] [place] Repository 10/31/2017/11/01/19 [id number] Ambulatory [address] Other [place] Repository 10/31/2017/11/01/19 [id number] Ambulatory [address] MEDICAL Repository CENTERBuildi ng:AGGASTACC 10/25/2017 [id number] Ambulatory Vo [facility] [place] Repository 10/25/2017/10/27/19 [id number] Ambulatory Vo 18 [facility] [place] Repository 10/25/2017/10/27/19 [id number] Ambulatory Vo 18 [facility] [place] Repository 10/18/2017/10/20/19 [id number] Ambulatory Vo 18 [facility] [place] Repository 10/18/2017/10/20/19 [id number] Ambulatory Vo 18 [facility] [place] Repository 10/18/2017/10/19/19 [id number] Ambulatory Vo 18 [facility] [place] Repository 10/16/2017/10/17/19 [id number] Ambulatory Vo 18 [facility] [place] Repository 10/11/2017/10/13/19 [id number] Ambulatory Vo 18 [facility] [place] Repository 10/11/2017/10/13/19 [id number] Ambulatory Vo 18 [facility] [place] Repository 10/11/2017 [id number] Ambulatory Vo [facility] [place] Repository 10/08/2017/10/09/19 [id number] Ambulatory Vo 18 [facility] [place] Repository 10/08/2017/10/08/19 [id number] Ambulatory Vo 18 [facility] [place] Repository 10/04/2017/10/05/[id number] ding:MEDOUTP Repository 10/04/2017/10/04/19 [id number] Ambulatory [address] Repository 10/04/2017/10/05/19 [id number] Ambulatory [address] Repository 09/27/2017/09/28/19 [id number] Ambulatory [address] Repository 09/27/2017/09/28/19 [id number] Ambulatory [address] Repository 09/21/2017 [id number] [facility] ding:MEDOUTP Repository 09/20/2017/09/20/19 [id number] Ambulatory [address] Repository 09/20/2017/09/20/19 [id number] Ambulatory [address] Repository 09/14/2017 [id number] [facility] ding:LAB Repository 09/13/2017/09/13/19 [id number] Ambulatory [address] Repository PAYERS PAYERS ENCOUNTER GUARANTOR PAYER SUBSCRIBER SOURCE 08/30/2018 EMANI LOUIS729 Primary ZIA BENITEZ Insurance:[facility]: [address] [id number] [id number]: [phone]) Number: Repository [phone] () [id number] Date:9722-97-02[address], [place] [address]QH: 08/30/2018 Secondary NOT GIVENUNK [place] Insurance:SELF PAY [facility] Number: Effective Repository Date:2018-08-16 08/26/2018 EMANI STRICKLAND9 Primary ZIA BENITEZ Insurance:[facility]: [address] [id number] [address]Bvs: (330) Number: Repository [phone] () [id number] Date:0987-88-75[address], [place] [address]ZH: 08/26/2018 Secondary NOT GIVENUNK [place] Insurance:SELF PAY [facility] Number: Effective Repository Date:2018-08-12 08/20/2018 EMANI LOUIS729 Primary ZIA [place]ued[place] E EMMANUEL [facility] [place], [place] CARE [id number] [id number] [id number]: (330) Number: Repository [phone] () [id number] Date:8314-07-48KB [address] [address]ZF: 08/20/2018 Secondary NOT GIVENUNK Frederic Insurance:SELF PAY [facility] Number: Effective Repository Date:2018-08-20 08/20/2018 EMANI LOUIS729 Primary ZIA [place] E EMMANUEL Insurance:[facility]: [facility] [id number] [id number] [address]Tel: ([phone]) Number: Repository [phone] () [id number] Date:3665-29-59QK [address] [place] [address]VO: 08/20/2018 Secondary NOT GIVENUNK [place] Insurance:SELF PAY [facility] Number: Effective Repository Date:2018-08-20 08/16/2018 EMANI LOUIS729 Primary ZIA Carranzaoster E EMMANUEL Insurance:[facility]: [facility] [id number] [id number] [place] [address]Tel: (330) Number: Repository [phone] () [id number] Date:2829-67-27RA [address]GNLMTOF[address] [place] [address]ZS: 08/16/2018 Secondary NOT GIVENUNK Frederic Insurance:SELF PAY [facility] Number: Effective Repository Date:2018-08-16 08/09/2018 EMANI LOUIS729 Primary ZIA Madden Frederic E EMMANUEL Insurance[facility] [id number] [id number] [facility] [address]Vve: (330) Number: Repository [phone] () [id number] Date:9012-03-08LZ [address] [address]KV: 08/09/2018 Secondary NOT GIVENUNK [place] Insurance:SELF PAY [facility] Number: Effective Repository Date:2018-08-08 08/01/2018 EMANI STRICKLAND9 Primary ZIA C Lorton E EMMANUEL Insurance[facility] [id number] [id number] [address]Vns: (330) Number: Repository [phone] () [id number] Date:4749-46-12MQ [address] [address]WQ: 08/01/2018 Secondary NOT GIVENUNK [place] Insurance:SELF PAY [facility] Number: Effective Repository Date:2018-07-15 07/26/2018 EMANI LOUIS729 Primary ZIA C Lorton E EMMANUEL Insurance:[facility]: [facility] [id number] [id number] Hospital [address]Vek: (330) Number: Repository [phone] () [id number] Date:6195-09-55UF [address] [address]QN: 07/26/2018 Secondary NOT GIVENUNK Frederic Insurance:SELF PAY [facility] Number: Effective Repository Date:2018-07-25 07/19/2018 EMANI LOUIS729 Primary ZIA C Frederic E EMMANUEL Insurance:[facility]: [facility] [id number] [id number] Hospital [address]Bec: (330) Number: Repository [phone] () [id number] Date:2213-13-34QV[address] [address]NR: 07/19/2018 Secondary NOT GIVENUNK [place] Insurance:SELF PAY [facility]: Effective Repository Date:2018-07-18 07/08/2018 EMANI LOUIS729 Primary ZIA Rueda E EMMANUEL Insurance[facility] [id number] [id number] [place] [id number]: (330) Number: Repository [phone] () [id number] Date:2158-01-53FW [address]GPJWHVR, [place] [address]NO: 07/08/2018 Secondary NOT GIVENUNK [place] Insurance:SELF PAY [facility] Number: Effective Repository Date:2018-06-13 07/06/2018 EMANI STRICKLAND9 Primary ZIA Rueda E EMMANUEL Insurance[facility]: [facility] [id number] [id number] [place] [address]Tel: (330) Number: Repository [phone] () [id number] Date:4324-79-63KK [address]SLUUTZR[address] [place] [address]WD: 07/06/2018 Secondary NOT GIVENUNK [place] Insurance:SELF PAY [facility] Number: Effective Repository Date:2018-07-05 06/21/2018 EMANI LOUIS729 Primary ZIA Rueda E EMMANUEL Insurance[facility] [id number] [id number] [place] [id number]: (330) Number: Repository [phone] () [id number] Date:8919-95-92[address]GFNXTIJ, [place] [address]IJ: 06/21/2018 Secondary NOT GIVENUNK Frederic Insurance:SELF PAY [facility] Number: Effective Repository Date:2018-06-20 06/03/2018 EMANI STRICKLAND9 Primary ZIA Carranzaoster E EMMANUEL Insurance:[facility] [id number] [id number] [address]Pho: (330) Number: Repository [phone] () [id number] Date:5263-33-18ZQ[address] [address]YT: 06/03/2018 Secondary NOT GIVENUNK [place] Insurance:SELF PAY [facility] Number: Effective Repository Date:2018-06-03 05/31/2018 EMANI STRICKLAND9 Primary ZIA C Frederic E EMMANUEL Insurance[facility] [id number] [id number] [place] [id number]: (330) Number: Repository [phone] () [id number] Date:8333-36-58NH [address] [address]IY: 05/31/2018 Secondary NOT GIVENUNK [place] Insurance:SELF PAY [facility] Number: Effective Repository Date:2018-05-30 05/30/2018 EMANI STRICKLAND9 Primary ZIA C Lorton E EMMANUEL Insurance:[facility]: [facility] [id number] [id number] [place] [id number]: (330) Number: Repository [phone] () [id number] Date:7761-26-31OJ [address] [address]IV: 05/30/2018 Secondary NOT GIVENUNK Frederic Insurance:SELF PAY [facility] Number: Effective Repository Date:2018-05-15 05/17/2018 EMANI STRICKLAND9 Primary ZIA C Lorton E EMMANUEL [facility] [id number] [id number] [place] [phone]: ([phone]) Number: Repository [phone] () [id number] Date:[id number] [address]RR: 05/17/2018 Secondary NOT GIVENUNK Frederic Insurance:SELF PAY [facility] Number: Effective Repository Date:2018-05-16 05/03/2018 EMANI LOUIS729 Primary ZIA Madden Lorton E EMMANUEL Insurance:[facility]: [facility] [id number] [id number] Ville [address]Tel: (330) Number: Repository [phone] () [id number] Date:4390-54-39DJ [facility] 878207RBZFK[place], [place] [address]XH: 05/03/2018 Secondary NOT GIVENUNK Frederic Insurance:SELF PAY [facility] Number: Effective Repository Date:2018-05-02 05/03/2018 EMANI STRICKLAND9 Primary ZIA Madden Lorton E EMMANUEL Insurance:[facility]: [facility] [id number] [id number] [place]ille [address]Tel: (330) Number: Repository [phone] () [id number] Date:0960-91-70ZM [address] [address]FH: 05/03/2018 Secondary NOT GIVENUNK Lorton Insurance:SELF PAY [facility] Number: Effective Repository Date:2018-04-16 04/26/2018 EMANI LOUIS729 Primary ZIA Madden Frederic E EMMANUEL Insurance:[facility]: [facility] [id number] [id number] Ville [phone]: (330) Number: Repository [phone] () [id number] Date:9631-52-96OL [address] [address]XA: 04/26/2018 Secondary NOT GIVENUNK Lorton Insurance:SELF PAY [facility] Number: Effective Repository Date:2018-04-25 04/19/2018 EMANI LOUIS729 Primary ZIA C Frederic E EMMANUEL Insurance:[facility]: [facility] [place] CARE [id number] [id number] Ville [phone]: ([phone]) Number: Repository [phone] () [id number] Date:7950-51-57SQ [facility] 245441PXYDSOG, [place] [address]EJ: 04/19/2018 Secondary NOT GIVENUNK Lorton Insurance:SELF PAY [facility] Number: Effective Repository Date:2018-04-18 04/12/2018 EMANI STRICKLAND9 Primary ZIA Rueda E EMMANUEL Insurance:[facility]: [place] CARE [id number] [id number] [place]ille [address]Tel: (330) Number: Repository [phone] () [id number] Date:2732-83-47DK [facility] 438033AOKUZXI, [place] [address]EL: 04/12/2018 Secondary NOT GIVENUNK Frederic Insurance:SELF PAY [facility] Number: Effective Repository Date:2018-04-11 04/09/2018 EMANI LOUIS729 Primary ZIA Baker EMMANUEL Insurance:[facility]: [facility] [place] [id number] [id number] Ville [phone]: (330) Number: Repository [phone] () [id number] Date:9608-20-86QT [address]APDUQRS, [place] [address]CY: 04/09/2018 Secondary NOT GIVENUNK Frederic Insurance:SELF PAY [facility] Number: Effective Repository Date:2018-02-22 03/29/2018 EMANI STRICKLAND9 Primary ZIA Rueda E EMMANUEL Insurance:[facility]: [facility] [place] [id number] Ville [id number]: (330) Number: Repository [phone] () [id number] Date:5461-71-95BD [address]NSOGPOX, [place] [address]VX: 03/29/2018 Secondary NOT GIVENUNK Lorton Insurance:SELF PAY [facility]: Effective Repository Date:2018-02-26 03/29/2018 EMANI LOUIS729 Primary ZIA Baker EMMANUEL Insurance[facility] [id number] [id number] Ville [address]Tel: (330) Number: Repository [phone] () [id number] Date:0476-04-39PO [facility] 808129UIHUOUT, [place] [address]ZG: 03/29/2018 Secondary NOT GIVENUNK Lorton Insurance:SELF PAY [facility] Number: Effective Repository Date:2018-03-28 03/14/2018 EMANI LOUIS729 Primary ZIA Rueda E EMMANUEL Insurance[facility] [id number] [id number] Ville [phone]: (330) Number: Repository [phone] () [id number] Date:5617-23-82BX [address]DTTNEJT, [place] [address]EU: 03/14/2018 Secondary NOT GIVENUNK Frederic Insurance:SELF PAY [facility] Number: Effective Repository Date:2018-03-14 02/22/2018 EMANI LOUIS729 Primary ZIA Rueda E EMMANUEL Insurance[facility] [id number] Ville [phone]: [phone]) Number: Repository [phone] () [id number] Date:0144-51-03LQ [address]HXDQVLL, [place] [address]VO: 02/22/2018 Secondary NOT GIVENUNK Lorton Insurance:SELF PAY [facility] Number: Effective Repository Date:2018-02-14 02/22/2018 EMANI LOUIS729 Primary ZIA Madden Frederic E EMMANUEL Insurance:[facility]: [place] CARE [id number] Hospital [address]Pib: (330) Number: Repository [phone] () [id number] Date:3734-39-70US [address] [address]WN: 02/22/2018 Secondary NOT GIVENUNK Lorton Insurance:SELF PAY [facility] Number: Effective Repository Date:2018-02-22 02/21/2018 EMANI LOUIS729 Primary ZIA Madden Lorton E EMMANUEL Insurance:[facility]: [facility] [id number] [id number] Ville [phone]: ([phone]) Number: Repository [phone] () [id number] Date:4700-09-64[place] [address]WP: 02/21/2018 Secondary NOT GIVENUNK Lorton Insurance:SELF PAY [facility] Number: Effective Repository Date:2018-02-08 02/05/2018 EMANI LOUIS729 Primary ZIA Rueda E EMMANUEL Insurance:[facility]: [facility] [id number] [id number] Ville [phone]: (330) Number: Repository [phone] () [id number] Date:8798-94-10UJ [address] [address]PG: 02/05/2018 Secondary NOT GIVENUNK Lorton Insurance:SELF PAY [facility] Number: Effective Repository Date:2017-11-06 02/05/2018 EMANI LOUIS729 Primary ZIA Rueda E EMMANUEL Insurance:[facility]: [place] CARE [id number] [id number] Ville [phone]: (330) Number: Repository [phone] () [id number] Date:2650-92-83ZY [address]POOPJSL, [place] [address]NO: 02/05/2018 Secondary NOT GIVENUNK Lorton Insurance:SELF PAY [facility] Number: Effective Repository Date:2018-01-10 01/07/2018 EMANI Rosa Primary Insurance:[facility] ZIA [facility]: [facility]: [facility] [id number] Repository [facility], Date: [place] [address]Cmh: () 01/07/2018 Secondary EMANI Garza Insurance:MEDICARE BRAUNB: [facility] APolicy Number: [id number] Repository [id number] Date: 01/07/2018 EMANI LOUIS729 Primary ZIA BENITEZ Insurance:[facility]: [facility] [id number] Ville [id number]: (330) Number: Repository [phone] () [id number] Date:9305-58-69NN [address]YPLWPEL, [place] [address]IL: 01/07/2018 Secondary NOT GIVENUNK Frederic Insurance:SELF PAY [facility] Number: Effective Repository Date:2018-01-07 01/04/2018 EMANI LOUIS729 Primary ZIA BENITEZ Insurance:[facility]: [facility] [id number] [id number] Ville [id number]: 330) Number: Repository [phone] () [id number] Date:0390-51-73VM [address]GJIJNBE, [place] [address]NR: 01/04/2018 Secondary NOT GIVENUNK Frederic Insurance:SELF PAY [facility] Number: Effective Repository Date:2018-01-03 12/20/2017 EMANI LOUIS729 Primary ZIA C Lorton E EMMANUEL Insurance:[facility]: [place] CARE [id number] [id number] Hospital [address]Rmd: (330) Number: Repository [phone] () [id number] Date:4004-25-18QX [facility] [id number] [place] [address]QO: 12/20/2017 Secondary NOT GIVENUNK Frederic Insurance:SELF PAY [facility] Number: Effective Repository Date:2017-12-11 12/13/2017 EMANI LOUIS729 Primary ZIA Rudea E EMMANUEL Insurance:[facility]: [facility] [id number] Ville [phone]: (330) Number: Repository [phone] () [id number] Date:3153-68-27MX [place] [address]WP: 12/13/2017 Secondary NOT GIVENUNK Lorton Insurance:SELF PAY [facility] Number: Effective Repository Date:2017-12-13 12/06/2017 EMANI LOUIS729 Primary ZIA Rueda E EMMANUEL Insurance:[facility] [id number] [id number] Ville [phone]: (330) Number: Repository [phone] () [id number] Date:0056-86-62GV [address] [address]SG: 12/06/2017 Secondary NOT GIVENUNK Frederic Insurance:SELF PAY [facility] Number: Effective Repository Date:2017-11-12 11/27/2017 EMANI LOUIS729 Primary ZIA Rueda E EMMANUEL Insurance:[facility]: [place] CARE [id number] Ville [phone]: (330) Number: Repository [phone] () [id number] Date:4417-04-11SF [address] [address]UE: 11/27/2017 Secondary NOT GIVENUNK Frederic Insurance:SELF PAY [facility] Number: Effective Repository Date:2017-11-27 11/27/2017 EMANI LOUIS729 Primary ZIA BENITEZ Insurance:[facility] [id number] [id number] Ville [address]Tel: (330) Number: Repository [phone] () [id number] Date:3633-67-19HJ[address] [address]SQ: 11/27/2017 Secondary NOT GIVENUNK Lorton Insurance:SELF PAY [facility] Number: Effective Repository Date:2017-11-27 11/23/2017 EMANI LOUIS729 Primary ZIA BENITEZ Insurance:[facility] [id number] [id number] [place]ille [id number]: (330) Number: Repository [phone] () [id number] Date:4069-54-02BY[address] [address]FF: 11/23/2017 Secondary NOT GIVENUNK Frederic Insurance:SELF PAY [facility] Number: Effective Repository Date:2017-11-23 11/23/2017 EMANI LOUIS729 Primary ZIA BENITEZ Insurance:[facility]: [place] CARE [id number] Ville [phone]: (330) Number: Repository [phone] () [id number] Date:1628-91-33TB [address] [address]IZ: 11/23/2017 Secondary NOT GIVENUNK Lorton Insurance:SELF PAY [facility] Number: Effective Repository Date:2017-11-22 11/08/2017 EMANI LOUIS729 Primary ZIA BENITEZ Insurance:[facility]: [facility] [id number] [id number] Hospital [address]Omu: (330) Number: Repository [phone] () [id number] Date:1467-34-52GF[address] [address]TX: 11/08/2017 Secondary NOT GIVENUNK Lorton Insurance:SELF PAY [facility] Number: Effective Repository Date:2017-09-13 11/06/2017 EMANI Lee [id number] Primary ZIA BENITEZ Insurance:[facility]: [facility] [id number] [id number] Ville [phone]: (330) Number: Repository [phone] () [id number] Date:8666-60-62CCGRANT [place] [address]WP: 11/06/2017 Secondary NOT GIVENUNK Frederic Insurance:SELF PAY [facility] Number: Effective Repository Date:2017-11-06 11/02/2017 EMANI Lee [id number] Primary ZIA BENITEZ Insurance:[facility]: [facility] [id number] Hospital [address]Xhu: (330) Number: Repository [phone] () [id number] Date:6685-35-14PX[address] [address]EL: 11/02/2017 Secondary NOT GIVENUNK Lorton Insurance:SELF PAY [facility] Number: Effective Repository Date:2017-11-01 10/31/2017 EMANI STEPHIEB: Primary EMANI CARDB: [facility] [id number] E Insurance:MEDICARE [id number] Number: Repository [place] [id number]: [id number] Date: () 10/31/2017 Secondary ZIA [facility] Number: [id number] Repository [id number] Date: 10/04/2017 EMANI Lee [id number] Primary ZIA Rueda E EMMANUEL Insurance:[facility]: [facility] [address]Janaml [id number] [place]ille [id number]: (330) Number: Repository [phone] () [id number] Date:4510-81-60PV [facility] [address], [place] [address]LG: 10/04/2017 Secondary NOT GIVENUNK Lorton Insurance:SELF PAY [facility] Number: Effective Repository Date:2017-10-04 09/21/2017 EMANI STRICKLAND9 Primary ZIA Madden Frederic E EMMANUEL Insurance:[facility]: [facility] [id number] [id number] Ville [phone]: (330) Number: Repository [phone] () [id number] Date:5408-91-38JP [address] [address]UW: 09/21/2017 Secondary NOT GIVENUNK Lorton Insurance:SELF PAY [facility] Number: Effective Repository Date:2017-09-20 09/14/2017 EMANI STRICKLAND9 Primary ZIA Madden Lorton E EMMANUEL Insurance:[facility]: [facility] [id number] [id number] [place]ille [phone]: (330) Number: Repository [phone] () [id number] Date:1752-71-06NE [facility] 961253RZLTKPJ, [place] [address]NA: 09/14/2017 Secondary NOT GIVENUNK Lorton Insurance:SELF PAY [facility] Number: Effective Repository Date:2017-09-14
== END 2018-08-30 14:00 | disposition home or self-care (01) ==
PROVIDERS: Family Provider Internal Medicine; PCP Internal Medicine; Referring Provider Internal Medicine Cardiovascular Disease; Visit Provider Internal Medicine Cardiovascular Disease
DX: I49.5 Sick sinus syndrome (principal); J44.9 Chronic obstructive pulmonary disease, unspecified; E78.5 Hyperlipidemia, unspecified; E03.9 Hypothyroidism, unspecified; E11.9 Type 2 diabetes mellitus without complications; K21.9 Gastro-esophageal reflux disease without esophagitis; I48.0 Paroxysmal atrial fibrillation; F17.200 Nicotine dependence, unspecified, uncomplicated; Z79.01 Long term (current) use of 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; Z95.0 Presence of cardiac pacemaker; Z79.4 Long term (current) use of insulin; Z95.2 Presence of prosthetic heart valve
CPT/HCPCS: 33228; 36415; 36416; 71046; 80048; 81001; 85027; 85610; J7040; J7050

== ENCOUNTER 2018-09-09 09:45 | Outpatient (RCR) | payer OTHER, SELFPAY ==
[2018-08-09 08:58] VITALS: BMI 24.1
[2018-08-15 16:04] LABS: International Normalized Ratio 2.6
[2018-08-26 11:23] LABS: Prothrombin Time (Protime)PT. 31.5 SECONDS (11.7-14.9)
[2018-09-09 10:21] LABS: International Normalized Ratio 2.2; Prothrombin Time (Protime)PT. 24.8 SECONDS (11.7-14.9)
== END 2018-09-09 10:00 | disposition home or self-care (01) ==
LOC: LAB 09:45
PROVIDERS: Family Provider Internal Medicine; PCP Internal Medicine; Referring Provider Internal Medicine Cardiovascular Disease; Visit Provider Internal Medicine Cardiovascular Disease
DX: Z95.2 Presence of prosthetic heart valve (principal); Z79.01 Long term (current) use of 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
CPT/HCPCS: 36415; 85610

== ENCOUNTER 2018-09-30 09:55 | Outpatient (RCR) | payer OTHER, SELFPAY ==
[2018-09-13 06:51] VITALS: BMI 24.1
[2018-09-16 11:17] LABS: International Normalized Ratio 1.8; Prothrombin Time (Protime)PT. 20.9 SECONDS (11.7-14.9)
[2018-09-23 10:34] LABS: International Normalized Ratio 2.2; Prothrombin Time (Protime)PT. 24.5 SECONDS (11.7-14.9)
[2018-09-30 10:40] LABS: International Normalized Ratio 2.4; Prothrombin Time (Protime)PT. 26.2 SECONDS (11.7-14.9)
== END 2018-10-10 13:43 | disposition home or self-care (01) ==
LOC: LAB 09:55
PROVIDERS: Family Provider Internal Medicine; PCP Internal Medicine; Referring Provider Internal Medicine Cardiovascular Disease; Visit Provider Internal Medicine Cardiovascular Disease
DX: Z95.2 Presence of prosthetic heart valve (principal); Z79.01 Long term (current) use of 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
CPT/HCPCS: 36415; 85610

== ENCOUNTER → 2018-10-18 08:46 | Outpatient (CLI) | payer OTHER, SELFPAY ==
[2018-10-11 13:44] VITALS: BMI 24.8
[2018-10-18] VITALS (7 sets, daily range): BP systolic 60–97; BP diastolic 39–61; PULSE 97–108; RESP 16–18; TEMP 36.4–36.9; O2SAT 91–96; BMI 24.8
[2018-10-18] MEDS: Acetaminophen 325 MG Tablet 650 MG PO (09:06)
== END ==
PROVIDERS: Family Provider Internal Medicine; PCP Internal Medicine; Referring Provider Internal Medicine Hematology & Oncology; Visit Provider Internal Medicine Hematology & Oncology
DX: Z51.89 Encounter for other specified aftercare (principal); N18.3 Chronic kidney disease, stage 3 (moderate); D63.1 Anemia in chronic kidney disease
CPT/HCPCS: 36430; 86850; 86900; 86920; 86922; J7040; P9016; A4216

== ENCOUNTER → 2018-11-01 08:08 | Outpatient (CLI) | payer OTHER, SELFPAY ==
[2018-10-18 09:01] VITALS: BMI 24.8
[2018-11-01] VITALS (7 sets, daily range): BP systolic 67–87; BP diastolic 42–58; PULSE 80–108; RESP 16–18; TEMP 36.5–37.1; O2SAT 92–95; BMI 24.8
[2018-11-01] MEDS: Acetaminophen 325 MG Tablet 650 MG PO (08:30)
== END ==
PROVIDERS: Family Provider Internal Medicine; PCP Internal Medicine; Referring Provider Internal Medicine Hematology & Oncology; Visit Provider Internal Medicine Hematology & Oncology
DX: Z51.89 Encounter for other specified aftercare (principal); K92.2 Gastrointestinal hemorrhage, unspecified
CPT/HCPCS: 36430; 86850; 86900; 86902; 86920; 86922; P9016; A4216

== ENCOUNTER 2018-11-04 14:13 | Outpatient (RCR) | payer OTHER, SELFPAY ==
[2018-10-11 13:44] VITALS: BMI 24.8
[2018-10-14 12:35] LABS: International Normalized Ratio 2.7
[2018-11-04 15:48] LABS: International Normalized Ratio 2.4; Prothrombin Time (Protime)PT. 26.1 SECONDS (11.7-14.9)
== END 2018-11-04 15:13 | disposition home or self-care (01) ==
LOC: LAB 14:13
PROVIDERS: Family Provider Internal Medicine; PCP Internal Medicine; Referring Provider Internal Medicine Cardiovascular Disease; Visit Provider Internal Medicine Cardiovascular Disease
DX: Z95.2 Presence of prosthetic heart valve (principal); Z79.01 Long term (current) use of 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
CPT/HCPCS: 36415; 85610

== ENCOUNTER → 2018-11-18 | Outpatient (CLI) | payer OTHER, SELFPAY ==
[2018-11-01 08:24] VITALS: BMI 24.8
[2018-11-18 09:50] VITALS: PULSE 100; PULSE 104; PULSE 106; PULSE 107; PULSE 108; PULSE 109; PULSE 96; O2SAT 85; O2SAT 89; O2SAT 90; O2SAT 91; O2SAT 92; O2SAT 98
--- NOTE | 2018-11-18 09:55 | CPS ---
Pt arrived via wheelchair. States she wears 2L oxygen HS and that [facility] is her current DME. Pt SpO2 dropped to 85% at minute 4 check and pt placed on 2L. Pt recovered and tolerated well. Yovani BRASS FINISHER notified of O2 needs during walk.
--- NOTE | 2018-11-18 12:23 | WT_ITS ---
PSN 6 Minute Walk Test - 6 Minute Walk Test 6 Minute Walk Test: 6 Minute Walk Test PSN:6-Minute Walk Test Start: 11/18/18 09:50 Freq: Status: Active Protocol: RESP.6MINW Document 11/18/18 09:50 [facility] (Rec: 11/18/18 10:01 [facility] [id number]) 6 Minute Walk Test Date Performed 11/18/18 Time Performed 09:30 Height 5 ft 2 in Weight: 140 lb Weight in Pounds 140.[address]: Martin Galvan Assistive device used: None Pre-test Oxygen Delivery Method Room Air Pulse Ox (%) 91 Pulse Rate (60-100 beats/min) 106 H Dyspnea Aron Scale (0-10) 0.5 Exertion Aron Scale (6-20) 6 1st minute Oxygen Delivery Method Room Air Pulse Ox (%) 89 Pulse Rate (60-100 beats/min) 96 Number of Rests Taken 0 2nd minute Oxygen Delivery Method Room Air Pulse Ox (%) 90 Pulse Rate (60-100 beats/min) 108 H Number of Rests Taken 0 3rd minute Oxygen Delivery Method Room Air Pulse Ox (%) 89 Pulse Rate (60-100 beats/min) 107 H Number of Rests Taken 0 4th minute Oxygen Delivery Method Room Air Pulse Ox (%) 85 Pulse Rate (60-100 beats/min) 104 H Number of Rests Taken 0 5th minute Oxygen Flow Rate (L/min) (L/min) 2 Oxygen Delivery Method Nasal Cannula Pulse Ox (%) 92 Pulse Rate (60-100 beats/min) 109 H Number of Rests Taken 0 6th minute Oxygen Flow Rate (L/min) (L/min) 2 Oxygen Delivery Method Nasal Cannula Pulse Ox (%) 92 Pulse Rate (60-100 beats/min) 108 H Number of Rests Taken 0 Post-test Oxygen Flow Rate (L/min) (L/min) 2 Oxygen Delivery Method Nasal Cannula Pulse Ox (%) 98 Pulse Rate (60-100 beats/min) 100 Dyspnea Aron Scale (0-10) 2 Exertion Aron Scale (6-20) 12 Number of Rests Taken 0 Full Laps Walked 10 Partial Lap, Number of Tiles Walked 15 Total Distance Walked (ft) 605 11/18/18 09:55 Cardiopulmonary Services by Delilah Weems Pt arrived via wheelchair. States she wears 2L oxygen HS and that [facility] is her current DME. Pt SpO2 dropped to 85% at minute 4 check and pt placed on 2L. Pt recovered and tolerated well. Yovani PROGRESSIVE DIE MAKER notified of O2 needs during walk. Initialized on 11/18/18 09:55 - END OF NOTE - Interpretation Interpretation: The patient ambulated 605 feet over the course of 6 minutes beginning on room air without assistive devices or breaks. Pretesting oxygen saturation was noted to be 91% on room air. With ambulation, the kathy oxygen saturation was 85%. 2 L/min of supplemental oxygen was applied, and the patient was able to complete the remainder of the test while maintaining oxygen saturations at or above 88%. - Recommendations Recommendations: 2 L/min of supplemental oxygen should be utilized with exertion.
== END | disposition home or self-care (01) ==
LOC: PSN 08:52
PROVIDERS: Family Provider Internal Medicine; PCP Internal Medicine; Referring Provider Internal Medicine Critical Care Medicine; Visit Provider Internal Medicine Critical Care Medicine
DX: J44.9 Chronic obstructive pulmonary disease, unspecified (principal)
CPT/HCPCS: 94618

== ENCOUNTER → 2018-11-21 12:24 | Outpatient (CLI) | payer OTHER, SELFPAY ==
[2018-11-01 08:24] VITALS: BMI 24.8
[2018-11-22] VITALS (9 sets, daily range): BP systolic 55–93; BP diastolic 32–63; PULSE 91–110; RESP 16–18; TEMP 35.9–36.6; O2SAT 93–95; BMI 25.6
== END ==
PROVIDERS: Family Provider Internal Medicine; PCP Internal Medicine; Referring Provider Internal Medicine Hematology & Oncology; Visit Provider Internal Medicine Hematology & Oncology
DX: Z51.89 Encounter for other specified aftercare (principal); D64.9 Anemia, unspecified; K92.2 Gastrointestinal hemorrhage, unspecified
CPT/HCPCS: 36430; 86850; 86900; 86902; 86920; 86922; J7040; P9016; A4216

== ENCOUNTER 2018-12-02 10:51 | Outpatient (RCR) | payer OTHER, SELFPAY ==
[2018-11-01 08:24] VITALS: BMI 24.8
[2018-11-18 11:51] LABS: Prothrombin Time (Protime)PT. 39.2 SECONDS (11.7-14.9)
[2018-11-25 11:14] LABS: International Normalized Ratio 3.8; Prothrombin Time (Protime)PT. 38.1 SECONDS (11.7-14.9)
[2018-12-02 11:37] LABS: International Normalized Ratio 2.9; Prothrombin Time (Protime)PT. 30.8 SECONDS (11.7-14.9)
== END 2018-12-10 16:00 | disposition home or self-care (01) ==
LOC: LAB 10:51
PROVIDERS: Family Provider Internal Medicine; PCP Internal Medicine; Referring Provider Internal Medicine Cardiovascular Disease; Visit Provider Internal Medicine Cardiovascular Disease
DX: I48.3 Typical atrial flutter (principal); I48.0 Paroxysmal atrial fibrillation; Z79.01 Long term (current) use of 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
CPT/HCPCS: 36415; 85610

== ENCOUNTER → 2018-12-20 08:25 | Outpatient (CLI) | payer OTHER, SELFPAY ==
[2018-12-17 07:30] VITALS: BMI 25.2
[2018-12-20] VITALS (7 sets, daily range): BP systolic 50–75; BP diastolic 30–45; PULSE 89–110; RESP 16–24; TEMP 36.4–37.2; O2SAT 92–96; BMI 25.4
== END ==
PROVIDERS: Family Provider Internal Medicine; PCP Internal Medicine; Referring Provider Internal Medicine Hematology & Oncology; Visit Provider Internal Medicine Hematology & Oncology
DX: N18.9 Chronic kidney disease, unspecified (principal); D63.1 Anemia in chronic kidney disease
CPT/HCPCS: 36430; 86850; 86900; 86902; 86920; 86922; J7040; P9016

== ENCOUNTER 2019-01-07 08:55 | Outpatient (RCR) | payer OTHER, SELFPAY ==
[2018-12-11 11:42] VITALS: BMI 24.8
[2018-12-16 10:02] LABS: International Normalized Ratio 2.8; Prothrombin Time (Protime)PT. 29.5 SECONDS (11.7-14.9)
[2019-01-07 10:12] LABS: International Normalized Ratio 2.5; Prothrombin Time (Protime)PT. 27.3 SECONDS (11.7-14.9)
== END 2019-01-07 10:00 | disposition home or self-care (01) ==
LOC: LAB 08:55
PROVIDERS: Family Provider Internal Medicine; PCP Internal Medicine; Referring Provider Internal Medicine Cardiovascular Disease; Visit Provider Internal Medicine Cardiovascular Disease
DX: I48.3 Typical atrial flutter (principal); I48.0 Paroxysmal atrial fibrillation; Z79.01 Long term (current) use of 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
CPT/HCPCS: 36415; 85610

== ENCOUNTER 2019-01-28 09:26 | Outpatient (RCR) | payer OTHER, SELFPAY ==
[2019-01-11 07:51] VITALS: BMI 25.6
[2019-01-28 10:18] LABS: International Normalized Ratio 2.4; Prothrombin Time (Protime)PT. 25.8 SECONDS (11.7-14.9)
== END 2019-01-28 10:00 | disposition home or self-care (01) ==
LOC: LAB 09:26
PROVIDERS: Family Provider Internal Medicine; PCP Internal Medicine; Referring Provider Internal Medicine Cardiovascular Disease; Visit Provider Internal Medicine Cardiovascular Disease
DX: I48.3 Typical atrial flutter (principal); I48.0 Paroxysmal atrial fibrillation; Z79.01 Long term (current) use of 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
CPT/HCPCS: 36415; 85610

== ENCOUNTER 2019-03-04 10:14 | Outpatient (RCR) | payer OTHER, SELFPAY ==
[2019-02-10 08:39] VITALS: BMI 25.4
[2019-02-11 10:03] LABS: International Normalized Ratio 2.2; Prothrombin Time (Protime)PT. 24.5 SECONDS (11.7-14.9)
[2019-02-18 11:57] LABS: International Normalized Ratio 2.5; Prothrombin Time (Protime)PT. 26.7 SECONDS (11.7-14.9)
[2019-03-04 10:56] LABS: International Normalized Ratio 2.4; Prothrombin Time (Protime)PT. 26.2 SECONDS (11.7-14.9)
== END 2019-03-12 17:47 | disposition home or self-care (01) ==
LOC: LAB 10:14
PROVIDERS: Family Provider Internal Medicine; PCP Internal Medicine; Referring Provider Internal Medicine Cardiovascular Disease; Visit Provider Internal Medicine Cardiovascular Disease
DX: I48.3 Typical atrial flutter (principal); I48.0 Paroxysmal atrial fibrillation; Z79.01 Long term (current) use of 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
CPT/HCPCS: 36415; 85610

== ENCOUNTER → 2019-03-07 07:46 | Outpatient (CLI) | payer OTHER, SELFPAY ==
[2019-02-10 08:39] VITALS: BMI 25.4
[2019-03-07] VITALS (7 sets, daily range): BP systolic 62–91; BP diastolic 40–58; PULSE 83–110; RESP 16–20; TEMP 36.1–36.8; O2SAT 91–93; BMI 25.7
== END ==
PROVIDERS: Family Provider Internal Medicine; PCP Internal Medicine; Referring Provider Internal Medicine Hematology & Oncology; Visit Provider Internal Medicine Hematology & Oncology
DX: Z51.89 Encounter for other specified aftercare (principal); K92.2 Gastrointestinal hemorrhage, unspecified; D63.1 Anemia in chronic kidney disease; N18.9 Chronic kidney disease, unspecified
CPT/HCPCS: 36430; 86850; 86900; 86902; 86920; 86922; J7040; P9016; A4216

== ENCOUNTER → 2019-03-27 08:43 | Outpatient (CLI) | payer OTHER, SELFPAY ==
[2019-03-07 07:54] VITALS: BMI 25.7
[2019-03-27 08:52] VITALS: BP 84/44; PULSE 110; RESP 16; TEMP 36.4; O2SAT 95; BMI 25.9
[2019-03-27 09:31] VITALS: BP 88/57; PULSE 106; RESP 18; TEMP 36.6; O2SAT 93
[2019-03-27 10:31] VITALS: BP 77/50; PULSE 72; RESP 15; TEMP 36.7; O2SAT 90
[2019-03-27 11:18] VITALS: BP 72/47; PULSE 100; RESP 16; TEMP 36.7; O2SAT 90
== END ==
PROVIDERS: Family Provider Internal Medicine; PCP Internal Medicine; Referring Provider Internal Medicine Hematology & Oncology; Visit Provider Internal Medicine Hematology & Oncology
DX: Z51.89 Encounter for other specified aftercare (principal); D64.9 Anemia, unspecified; K92.2 Gastrointestinal hemorrhage, unspecified
CPT/HCPCS: 36430; 86850; 86900; 86901; 86902; 86920; 86922; J7040; P9016; A4216

== ENCOUNTER 2019-04-07 11:18 | Inpatient (IN) | payer OTHER, MEDICARE, SELFPAY ==
[2019-03-27 08:52] VITALS: BMI 25.9
[2019-04-07] VITALS (23 sets, daily range): BP systolic 58–117; BP diastolic 32–72; PULSE 107–110; RESP 17–25; TEMP 36.1–36.9; O2SAT 92–100; BMI 25.9; BMI 26.0; BMI 26.2
[2019-04-07 13:05] LABS: Absolute Lymphocyte Count 0.39 X10^3/uL (0.83-4.51); Absolute Neutrophil Count 3.6 X10^3/uL (2.0-7.7); Basophil# 0.01 X10^3/uL; Basophil% 0.2 % (0-1); Hematocrit 18.7 % (37-47); Lymphocyte # 0.39 X10^3/ul (4.0); Lymphocyte % 9.3 % (19-41); Mean Corp Hgb Conc 30.5 g/dL (32-36); Mean Corpuscular Hgb 29.4 pg (27.0-32.0); Mean Corpuscular Volume 96.4 fL (81-99); Mean Platelet Vol. 11.7 fl (6.2-12.0); Monocyte% 4.8 % (0-10); NRBC Flagged by Analyzer 0 % (0-5); Neutrophil # 3.59 X10^3/uL (2.7-7.7); Neutrophil % 85.2 % (47-70); POSITIVE COUNT YES; POSITIVE DIFFERENTIAL YES; Platelet Count 88 K/mm3 (150-450); RBC Distribution Width SD 60.8 fl (35.1-43.9); Red Blood Count 1.94 M/mm3 (4.2-5.4); White Blood Count 4.2 K/mm3 (4.4-11.0)
[2019-04-07 13:12] LABS: Differential Indicated SCAN CRITERIA MET; Hemoglobin 5.7 g/dL (12.0-15.0)
--- NOTE | 2019-04-07 13:16 | ED.VIS.GEN ---
History of Present Illness Chief Complaint: Abn Labs Informant: Patient, Significant Other Current Severity: Moderate Maximum Severity: Moderate Narrative: Patient feels dizzy and lightheaded. She feels like she is going to pass out. She has had a history of blood loss anemia, this is thought to be secondary to a GI bleed however she has seen multiple GI doctors over the past few years with unknown source of bleeding. Her stools are black, however she is on iron. She denies fever chills cough congestion. Patient denies any abdominal pain. Past Medical History - Allergies and Home Meds Allergies/Adverse Reactions: Allergies amiodarone Adverse Reaction (Verified 04/07/19 11:22) vomiting, poor balance, dizziness digoxin Adverse Reaction (Verified 04/07/19 11:22) nausea, dry heaves lorazepam [From Ativan] Adverse Reaction (Verified 04/07/19 11:22) Unknown meloxicam [From Mobic] Adverse Reaction (Verified 04/07/19 11:22) Unknown nortriptyline HCl [From Pamelor] Adverse Reaction (Verified 04/07/19 11:22) Unknown zolpidem tartrate [From Ambien] Adverse Reaction (Verified 04/07/19 11:22) Unknown Primary Care Physician: Kodak Muñoz MD [Primary Care Provider] - Prior records reviewed: Yes Past Medical History: - - As in HPI, as in [employer], I reviewed Surgical History: noncontributory, - Smoking Status: Current every day smoker - Family History Paternal Family History: Family History (Last Reviewed 12/17/18 @ 09:17 by Eddie Mendoza MD) Mother Cancer Family History: Reports: No pertinent history Maternal Family History: Family History (Last Reviewed 12/17/18 @ 09:17 by Eddie Mendoza MD) Mother Cancer Family History: Reports: No pertinent history Review of Systems All systems negative except as indicated General: Denies: Fever Cardiovascular: Denies: Chest pain Respiratory: Denies: Dyspnea, Cough Gastrointestinal: Denies: Abdominal pain, Nausea, Diarrhea Genitourinary: Denies: Dysuria Musculoskeletal: Denies: Myalgias Skin: Reports: - - She has noticed her skin was quite pale Neurological: Reports: Weakness Psych: Denies: Depression Hematologic: Denies: Easy bruising Physical Exam Vital Signs/Narrative: Vital Signs Temp Pulse Resp BP Pulse Ox 04/07/19 12:19 109 H 25 H 71/57 L 92 04/07/19 11:19 97 F L 110 H 18 70/32 L 98 General: Well nourished Head: Normocephalic Eyes: Pale conjunctiva ENT: Dry mucous membranes Neck: Supple Cardiovascular: Regular rate, Regular rhythm Abdomen: Soft, Nontender, Nondistended Back: Nontender Extremities: No edema Skin: Pallor Neurological: Alert, Normal Strength, Normal Sensation Psychological: Normal affect Diagnostic/Tx/Re-eval - Medical Decision Making Patient is found to have hemoglobin of 5, I ordered a transfusion. She continues to be hypotensive, I did give her IV fluids. I will admit her, and transfuse. It sounds like this is chronic and recurrent with an unknown cause. Had seen oncology as well GI. She is being transfused at this time Patient is hypotensive, she is chronically hypotensive, she is lucid and coherent, she will be admitted to the intensive care unit ED Disposition - Plan for ED Patient: Diagnosis: Anemia, Hypotension Referrals: Kodak Muñoz MD [Primary Care Provider] -
--- NOTE | 2019-04-07 13:24 | ED.RN ---
LAB CALL WITH CRITICAL RESULT HGB 5.7. VERBALLY REPORTED TO DR. QUINTANILLA AND ANDRES VERMA. PT BP HYPOTENSIVE, ALSO VERBALLY REPORTED TO DR. QUINTANILLA, VERBAL ORDER TO INITIATE FLUID BOLUS UNTIL BLOOD ARRIVES FROM LAB.
[2019-04-07 13:31] LABS: ALB/GLOB Ratio 1.1 RATIO (0.9-2.4); AST(SGOT) 11 U/L (15-37); Alanine Aminotransfer ALT/SGPT 13 U/L (13-56); Albumin, Serum 2.9 g/dL (3.2-5.0); Alkaline Phosphatase 62 U/L (45-117); BUN 28 mg/dL (7-18); BUN/Creat Ratio 17.9 RATIO (10-20); Calcium,Total 7.5 mg/dL (8.5-10.1); Chloride 111 mmol/L (98-107); Creatinine, Serum 1.56 mg/dL (0.55-1.02); EST Glomerular Filtration Rate 34 mL/min (>60); Est Glom Filt Rate - Afr Amer 42 mL/min (>60); Estimated Creatinine Clearance 24.26 ml/min; Globulin 2.7 g/dL (2.2-4.2); Glucose 256 mg/dL (74-106); Potassium 4.6 mmol/L (3.5-5.1); Protein, Total 5.6 g/dL (6.4-8.2); Sodium Level 143 mmol/L (136-145)
[2019-04-07] MEDS: 0.9% Normal Saline 1,000 ML 999 ML IV (13:31)
[2019-04-07 13:32] LABS: Anion Gap 9 (5-15); Platelet Estimate MOD DEC (ADEQ)
[2019-04-07 13:33] LABS: Anisocytosis 1+; Hypochromasia 3+; Microcytosis 1+; Polychromasia RARE
[2019-04-07 14:13] LABS: Prothrombin Time (Protime)PT. 51.5 SECONDS (11.7-14.9)
[2019-04-07 14:27] LABS: International Normalized Ratio 5.6
--- NOTE | 2019-04-07 14:28 | ED.RN ---
LAB CALLED CRITICAL OF INR 5.6
--- NOTE | 2019-04-07 15:03 | PCM.HP.STD ---
Problem List (1) Chronic atrial fibrillation Status: Chronic (2) GI bleeding Status: Chronic (3) Non-rheumatic aortic stenosis Status: Chronic (4) Nonrheumatic mitral (valve) insufficiency Status: Chronic (5) Hypotension Status: Chronic (6) Secondary pulmonary hypertension Status: Chronic (7) HLD (hyperlipidemia) Status: Chronic Qualifiers: Hyperlipidemia type: pure hypercholesterolemia Qualified Code(s): E78.00 - Pure hypercholesterolemia, unspecified; E78.0 - Pure hypercholesterolemia (8) History of mitral valve replacement with mechanical valve Status: Chronic Comment: #[address] Alex mechanical valve History of Present Illness Date of Admission: 04/07/19 Chief Complaint: Abnormal labs. 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 The patient had a history of chronic iron deficiency anemia with was attributed to probable GI bleed and she underwent multiple evaluations for GI bleed including upper and lower endoscopies and does failed to identify source of GI bleeding. Patient complains of being dizzy and lightheaded and she mentioned that has been chronic and also complained of being very weak and tired. She denied chest pain or worsening shortness of breath. She reported black stools. She denied hematochezia, epistaxis, hemoptysis, hematemesis, hematochezia or hematuria. She has history of mitral valve replacement with prosthetic valve and she has been on Coumadin her INR today is 5.6. She had a history of stage III chronic kidney disease and her baseline creatinine has been around 1.4 to 1.7 mg/dL and it has been stable. She is a history of type 2 diabetes mellitus and she has been on Lantus insulin as well as Humalog twice daily and decigrams been under fair control. She has history of chronic hypertension and normally, her systolic blood pressures are 70s and upon revision of her chart, her systolic blood pressure has been around 60-70. In the emergency department, patient was afebrile, slightly tachycardic, blood pressure was 71/57, pulse ox was 92% on room air. Routine blood work revealed hemoglobin of 5.7 g/dL, hematocrit of 18.7, platelet count is 88,000, INR 5.6. Serum creatinine is 1.56. LFT was unremarkable. She is being admitted for acute on chronic symptomatic anemia for blood transfusion as well as chronic hypotension. Past Medical History Past Medical History (Chronic Problems): Chronic Problems (Last Reviewed 12/17/18 @ 09:17 by Eddie Mendoza MD) Chronic atrial fibrillation (Chronic) Tachycardia-bradycardia syndrome (Chronic) Non-rheumatic tricuspid valve insufficiency (Chronic) Nicotine dependence (Chronic) GI bleeding (Chronic) Non-rheumatic aortic stenosis (Chronic) Nonrheumatic mitral (valve) insufficiency (Chronic) Presence of permanent cardiac pacemaker (Chronic 08/30/18) Implant: 07/31/2008; PPM Generator Change - [employer], Accolade MR 08/30/2018 Typical atrial flutter (Chronic) Hypotension (Chronic) Secondary pulmonary hypertension (Chronic) senior living current use of anticoagulant (Chronic) HLD (hyperlipidemia) (Chronic) History of mitral valve replacement with mechanical valve (Chronic 07/22/08) #[address] Alex mechanical valve Medical History: Medical History (Last Reviewed 12/17/18 @ 09:17 by Eddie Mendoza MD) Chronic atrial fibrillation (Chronic) I48.2 Tachycardia-bradycardia syndrome (Chronic) I49.5 Non-rheumatic tricuspid valve insufficiency (Chronic) I36.1 Nicotine dependence (Chronic) F17.200 GI bleeding (Chronic) K92.2 Non-rheumatic aortic stenosis (Chronic) I35.0 Nonrheumatic mitral (valve) insufficiency (Chronic) I34.0 Typical atrial flutter (Chronic) I48.3 Hypotension (Chronic) I95.9 Secondary pulmonary hypertension (Chronic) senior living current use of anticoagulant (Chronic) Z79.01 HLD (hyperlipidemia) (Chronic) E78.5 Ascites R18.8 COPD (chronic obstructive pulmonary disease) J44.9 Carotid bruit R09.89 GERD (gastroesophageal reflux disease) K21.9 Pericardial effusion I31.3 Pleural effusion J90 Thrombocytopenia D69.6 Type 2 diabetes mellitus E11.9 GI bleed K92.2 PVC's (premature ventricular contractions) (Inactive) I49.3 Pleural effusion, not elsewhere classified (Inactive) J90 Allergies amiodarone Adverse Reaction (Verified 04/07/19 11:22) vomiting, poor balance, dizziness digoxin Adverse Reaction (Verified 04/07/19 11:22) nausea, dry heaves lorazepam [From Ativan] Adverse Reaction (Verified 04/07/19 11:22) Unknown meloxicam [From Mobic] Adverse Reaction (Verified 04/07/19 11:22) Unknown nortriptyline HCl [From Pamelor] Adverse Reaction (Verified 04/07/19 11:22) Unknown zolpidem tartrate [From Ambien] Adverse Reaction (Verified 04/07/19 11:22) Unknown Home Medications: Ambulatory Orders Medication Instructions Recorded Atorvastatin Calcium [Lipitor] 20 mg PO QHS 05/22/13 Levothyroxine [Synthroid] 50 mcg PO DAILY 04/01/15 Albuterol Inhaler [Ventolin Hfa] 2 puff INHALATION Q6H PRN PRN 04/02/15 Ferrous Sulfate 487.5 mg PO QHS 04/02/15 Hydrocodone/Acetaminophen 0.5 tab PO Q8H PRN PRN 04/02/15 [Hydrocodone-Acetamin 5-325 mg] Insulin Lispro [Humalog KwikPen] 0 unit SQ BIDCM 04/02/15 Folic Acid 1 mg PO DAILY@0800 04/30/15 Insulin Glargine [Lantus SoloStar 35 - 45 units SC QHS 04/30/15 Pen] Cyanocobalamin (Vitamin B-12) 2,500 mcg PO DAILY 06/10/16 [Vitamin B12] Magnesium 250 mg PO DAILY 05/24/17 potassium chloride ER 20 mEq 20 meq PO DAILY #90 tab 01/24/18 tablet,extended release(part/cryst) Warfarin Sodium [Coumadin] 2 mg PO DAILY 03/07/19 Cholecalciferol (Vitamin D3) 1,000 unit PO DAILY 04/07/19 [Vitamin D3] Furosemide [Lasix] 20 mg PO QODAY 04/07/19 Trazodone HCl 150 - 300 mg PO QHS 04/07/19 Venlafaxine HCl 37.5 mg PO BID 04/07/19 Surgical History: Surgical History (Last Reviewed 12/17/18 @ 09:17 by Eddie Mendoza MD) Presence of permanent cardiac pacemaker (Chronic) Onset Date: 08/30/18 Z95.0 Implant: 07/31/2008; PPM Generator Change - [employer], [employer]olade MR 08/30/2018 History of mitral valve replacement with mechanical valve (Chronic) Onset Date: 07/22/08 Z95.[address] Alex mechanical valve History of left heart catheterization Onset Date: 07/17/08 Z98.890 History of cardioversion Onset Date: 10/2015 Z98.890 History of incision of pericardium Z98.890 for pericardial effusion Surgical History: - - Mitral valve replacement with mechanical valve. Psychiatric History: No pertinent psych hx [employer] OUT WORK[employer] History: No pertinent [employer] WORK[employer] history Lives: Spouse/ Significant Other Smoking Status: Current every day smoker Tobacco Use: Cigarettes Alcohol: None Drugs: None - *Family History Paternal Family History: Family History (Last Reviewed 12/17/18 @ 09:17 by Eddie Mendoza MD) Mother Cancer History Items: No pertinent history Maternal Family History: Family History (Last Reviewed 12/17/18 @ 09:17 by Eddie Mendoza MD) Mother Cancer History Items: No pertinent history Review of Systems Constitutional: Reports: Weakness. Denies: Anorexia, Chills, Fever Eyes: Denies: Blurred vision, Double vision, Drainage, Redness HEENT: Denies: Difficulty Hearing, Ear Pain, Eye Pain, Nasal Congestion, Sore Throat Cardiovascular: Reports: Light Headedness. Denies: Chest Pain, Chest Pressure, Heaviness, Palpitations, Syncope Respiratory: Reports: Shortness of Breath. Denies: Cough, Hemoptysis, Pleuritic Pain, Sputum production, Wheezing Gastrointestinal: Reports: Melena. Denies: Abdominal Pain, Constipation, Diarrhea, Hematochezia, Nausea, Vomiting Genitourinary: Denies: Dysuria, Frequency, Hematuria Musculoskeletal: Denies: Arm Pain, Back Pain, Foot Pain Skin: Denies: Dryness, Rash Neurological: Denies: Balance problems, Double vision, Change in Speech, Slurred speech, Headaches, Incoordination, Numbness Psychiatric: Denies: Anxiety, Depression Endocrine: Denies: Change in Body Habitus, Heat/ Cold Intolerance, Polyuria VTE Information - Inpt Only VTE Present on Admission: No VTE Mechan Device Prophylaxis: None VTE Pharm Prophylaxis ordered?: No Patient Problems: Active and Suspected Problems (Last Reviewed 12/17/18 @ 09:17 by Eddie Mendoza MD) Anemia (Acute) - Physical Exam General: Alert, Oriented x3, Cooperative, - - Minimally short of breath, very pale. HEENT: Atraumatic, PERRLA, EOMI, Normocephalic Oral: Moist Mucosa, No Gingival or Mucosal Lesions/ Ulcerations Neck: Supple, No JVD, Negative Carotid Bruits, Trachea Midline, Thyroid Normal Size and Texture Lungs: Clear to auscultation, No rhonchi, No wheeze, No rales, Diminished Cardiovascular: Regular rate, Regular Rhythm, Normal S1, Normal S2, - - Mechanical click. Abdomen: Bowel Sounds Present, Soft, Non Tender, Non-Distended, No Hepato-splenomegaly Extremities: No clubbing, No cyanosis, No edema Skin: No rashes, No breakdown Lymphatic: No Cervical, Supraclavicular, or Inguinal Adenopathy Neurological: Cranial nerves II-XII grossly intact, Motor Exam 5/5 strength throughout Psych/Mental Status: Normal Affect, Appropriate, Alert and oriented to time, place, person, mood and affect Vital Signs Temp Pulse Resp BP Pulse Ox 98 F 110 H 18 73/56 L 98 04/07/19 14:53 04/07/19 14:45 04/07/19 14:53 04/07/19 14:45 04/07/19 14:45 Oxygen Flow Rate (L/min) 3 Oxygen Delivery Method Nasal Cannula Weight: 142 lb Body Mass Index (BMI) 25.9 Finger Stick Blood Glucose 194 Intake and Output for Last 24 Hours 04/05/19 04/06/19 04/07/19 23:59 23:59 23:59 Intake Total 1000 / 1000 Balance 1000 / 1000 Laboratory Tests Past 24 Hrs 04/07/19 04/07/19 04/07/19 12:05 12:05 12:58 WBC 4.2 L RBC 1.94 L Hgb 5.7 L* Hct 18.7 L MCV 96.4 MCH 29.4 MCHC 30.5 L RDW Std Deviation 60.8 H RDW Coeff of Uriel 18.0 H Plt Count 88 L MPV 11.7 Immature Gran % (Auto) 0.500 Neut % (Auto) 85.2 H Lymph % (Auto) 9.3 L Leake % (Auto) 4.8 Eos % (Auto) 0.0 Baso % (Auto) 0.2 Absolute Neuts (auto) 3.6 Absolute Lymphs (auto) 0.39 L Nucleated RBC % 0 Diff Path Review May foll Platelet Estimate MOD DEC Polychromasia RARE Hypochromasia 3+ Anisocytosis 1+ Microcytosis 1+ PT INR Sodium Potassium Chloride Carbon Dioxide Anion Gap BUN Creatinine Estim Creat Clear Calc Est GFR (MDRD) Af Amer Est GFR (MDRD) Non-Af BUN/Creatinine Ratio Glucose Calcium Total Bilirubin AST ALT Alkaline Phosphatase Total Protein Albumin Globulin Albumin/Globulin Ratio Blood Type A POSITIVE Antibody Screen NEGATIVE Crossmatch See Detail 04/07/19 04/07/19 12:58 14:00 WBC RBC Hgb Hct MCV MCH MCHC RDW Std Deviation RDW Coeff of Uriel Plt Count MPV Immature Gran % (Auto) Neut % (Auto) Lymph % (Auto) Leake % (Auto) Eos % (Auto) Baso % (Auto) Absolute Neuts (auto) Absolute Lymphs (auto) Nucleated RBC % Diff Path Review Platelet Estimate Polychromasia Hypochromasia Anisocytosis Microcytosis PT 51.5 H INR 5.6 H* Sodium 143 Potassium 4.6 Chloride 111 H Carbon Dioxide 23.0 Anion Gap 9 BUN 28 H Creatinine 1.56 H Estim Creat Clear Calc 24.26 Est GFR (MDRD) Af Amer 42 L Est GFR (MDRD) Non-Af 34 L BUN/Creatinine Ratio 17.9 Glucose 256 H Calcium 7.5 L Total Bilirubin 0.30 AST 11 L ALT 13 Alkaline Phosphatase 62 Total Protein 5.6 L Albumin 2.9 L Globulin 2.7 Albumin/Globulin Ratio 1.1 Blood Type Antibody Screen Crossmatch Assessment/Plan All Active Problems (Last Reviewed 12/17/18 @ 09:17 by Eddie Mendoza MD) Anemia (Acute) This is a 78 years old female patient was referred to the ED 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 #1 acute on chronic symptomatic anemia: In the past, it was attributed to probable GI bleed, iron deficiency anemia. Patient underwent extensive GI work-up as mentioned above at [facility] that failed to identify the source of bleeding. Patient has been on Coumadin for prosthetic mitral valve. She has been on iron supplement. She reported melena, no other sources of active bleeding. She is currently hypotensive, slight tachycardic. Plan: Admit to ICU, complete bedrest, transfused 3 units of packed RBCs, repeat H&H after completing blood transfusion, continue iron supplement, gentle IV fluids for hydration, repeat CBC and BMP tomorrow morning, repeat INR tomorrow morning, critical care consult. #2 Coumadin induced coagulopathy: INR is 5.6, patient was on Coumadin. Plan: No plan to revert INR, hold Coumadin, blood transfusion, repeat INR tomorrow morning. If INR drops below 2.5, patient will need to be started on IV heparin drip. #3 chronic thrombocytopenia: This is chronic, platelet count is at her baseline. Plan to monitor. #4 stage III chronic kidney disease: Baseline creatinine is around 1.4 to 1.7 mg/dL, admission creatinine is 1.56, stable at baseline. #5 status post mitral valve replacement with prosthetic valve: On Coumadin as above, plan to hold him for now, repeat INR tomorrow morning. #6 chronic hypotension: Normal, systolic blood pressures are 70s and it has been around 70 at this time. Plan to monitor. #7 type 2 diabetes mellitus: ADA diet, Accu-Cheks, insulin sliding scale, continue home doses of Lantus. #8 hypothyroidism: Continue with digoxin, check TSH. #9 hyperlipidemia: Continue statins. #10 DVT prophylaxis: INR 5.6. This note was generated with [employer] dictation software. It may contain incorrect words, spelling, and punctuation that were not noted in checking the note before signing. Code Visit Inpatient E&M: 51419 Init Hosp L3
[2019-04-07 16:51] LABS: Bedside Glucose 186 mg/dL (70-110)
[2019-04-07] MEDS: 0.9% Normal Saline 1,000 ML 100 ML IV (16:55)
[2019-04-07] MEDS: Insulin Lispro 100 UNIT/ML INSULN.PEN SC (17:03)
[2019-04-07 17:28] LABS: Thyroid Stim Hormone (TSH) 3.18 uIU/mL (0.358-3.74)
[2019-04-07] MEDS: Ferrous Sulfate 325 MG Tablet PO (21:14)
[2019-04-07] MEDS: Venlafaxine HCl 75 MG Tablet 37.5 MG PO (21:14)
[2019-04-07] MEDS: traZODone 50 MG Tablet 150 MG PO (21:14)
[2019-04-07] MEDS: Atorvastatin Calcium 20 MG Tablet PO (21:14)
[2019-04-07 21:45] LABS: Bedside Glucose 180 mg/dL (70-110)
[2019-04-08] VITALS (26 sets, daily range): BP systolic 71–101; BP diastolic 38–74; PULSE 107–111; RESP 16–35; TEMP 36.1–36.9; O2SAT 91–100
[2019-04-08 01:51] LABS: Hematocrit 29.8 % (37-47); Hemoglobin 9.3 g/dL (12.0-15.0)
[2019-04-08 04:48] LABS: Absolute Lymphocyte Count 0.41 X10^3/uL (0.83-4.51); Absolute Neutrophil Count 3.5 X10^3/uL (2.0-7.7); Basophil# 0.01 X10^3/uL; Basophil% 0.2 % (0-1); Hematocrit 29.1 % (37-47); Hemoglobin 8.9 g/dL (12.0-15.0); Lymphocyte # 0.41 X10^3/ul (4.0); Lymphocyte % 9.7 % (19-41); Mean Corp Hgb Conc 30.6 g/dL (32-36); Mean Corpuscular Hgb 28.7 pg (27.0-32.0); Mean Corpuscular Volume 93.9 fL (81-99); Mean Platelet Vol. 11.5 fl (6.2-12.0); Monocyte# 0.31 X10^3/uL; Monocyte% 7.4 % (0-10); NRBC Flagged by Analyzer 0 % (0-5); Neutrophil # 3.46 X10^3/uL (2.7-7.7); Neutrophil % 82.2 % (47-70); POSITIVE DIFFERENTIAL YES; Platelet Count 78 K/mm3 (150-450); White Blood Count 4.2 K/mm3 (4.4-11.0)
[2019-04-08 05:04] LABS: Anion Gap 5 (5-15); BUN 25 mg/dL (7-18); Chloride 113 mmol/L (98-107); Creatinine, Serum 1.47 mg/dL (0.55-1.02); EST Glomerular Filtration Rate 37 mL/min (>60); Est Glom Filt Rate - Afr Amer 44 mL/min (>60); Estimated Creatinine Clearance 25.75 ml/min; Glucose 188 mg/dL (74-106); Potassium 4.1 mmol/L (3.5-5.1); Sodium Level 144 mmol/L (136-145)
[2019-04-08 05:05] LABS: Differential Indicated SCAN CRITERIA MET
[2019-04-08 05:12] LABS: Prothrombin Time (Protime)PT. 52.4 SECONDS (11.7-14.9)
[2019-04-08 05:24] LABS: International Normalized Ratio 5.7
[2019-04-08] MEDS: Levothyroxine 50 MCG Tablet PO (06:17)
--- NOTE | 2019-04-08 06:41 | CON.PCM_ITS ---
Reason for Consult Date of Consultation: 04/08/19 Reason for Consultation: Acute on Chronic Symptomatic Anemia History of Present Illness: The patient is a 78-year-old female, with a history as outlined below, who presented to the emergency department on April 07 with complaints of dizziness and lightheadedness. The patient is chronically followed by Dr. Thomas at [facility] due to a history of chronic anemia. The patient has had an extensive work-up through the [facility], including multiple different GI works up with upper and lower endoscopies, along with capsule endoscopy. 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 The patient was also noted diverticulosis of the sigmoid colon. She was treated at that time with argon plasma coagulation. The patient also has a history of coronary artery disease, mitral valve disease status post replacement with mechanical valve, along with persistent atrial fibrillation. She is currently followed by Dr. Mendoza of cardiology. On presentation to the emergency department, the patient was noted to be afebrile, tachycardic and hypotensive. She was, nevertheless, maintaining appropriate oxygen saturations on room air. Laboratory evaluation revealed evidence of pancytopenia with a hemoglobin of 5.7 g/dL. INR was supratherapeutic at 5.6. Chemistry profile was notable for chronic kidney disease with a creatinine of 1.56. Of note, although the patient was hypotensive in the emergency department, her systolic blood pressures are chronically on the low side at her baseline. Orders for type and screen and subsequent transfusion were placed. She was then admitted to the medical intensive care unit for further management. Overnight, the patient remained clinically stable and did receive a total of 3 units of packed red blood cells. Hemoglobin this morning was noted to be 8.9 g/dL. The p atient currently denies the presence of abdominal pain or shortness of breath. She does report improvement in her dizziness and lightheadedness, following transfusion of blood products. Past Medical History Past Medical History (Chronic Problems): Chronic Problems (Last Reviewed 12/17/18 @ 09:17 by Eddie Mendoza MD) Chronic atrial fibrillation (Chronic) Tachycardia-bradycardia syndrome (Chronic) Non-rheumatic tricuspid valve insufficiency (Chronic) Nicotine dependence (Chronic) GI bleeding (Chronic) Non-rheumatic aortic stenosis (Chronic) Nonrheumatic mitral (valve) insufficiency (Chronic) Presence of permanent cardiac pacemaker (Chronic 08/30/18) Implant: 07/31/2008; PPM Generator Change - [employer], [employer] MR 08/30/2018 Typical atrial flutter (Chronic) Hypotension (Chronic) Secondary pulmonary hypertension (Chronic) custodial current use of anticoagulant (Chronic) HLD (hyperlipidemia) (Chronic) History of mitral valve replacement with mechanical valve (Chronic 07/22/08) #[address] Alex mechanical valve Medical History: Medical History (Last Reviewed 12/17/18 @ 09:17 by Eddie Mendoza MD) Chronic atrial fibrillation (Chronic) I48.2 Tachycardia-bradycardia syndrome (Chronic) I49.5 Non-rheumatic tricuspid valve insufficiency (Chronic) I36.1 Nicotine dependence (Chronic) F17.200 GI bleeding (Chronic) K92.2 Non-rheumatic aortic stenosis (Chronic) I35.0 Nonrheumatic mitral (valve) insufficiency (Chronic) I34.0 Typical atrial flutter (Chronic) I48.3 Hypotension (Chronic) I95.9 Secondary pulmonary hypertension (Chronic) custodial current use of anticoagulant (Chronic) Z79.01 HLD (hyperlipidemia) (Chronic) E78.5 Ascites R18.8 COPD (chronic obstructive pulmonary disease) J44.9 Carotid bruit R09.89 GERD (gastroesophageal reflux disease) K21.9 Pericardial effusion I31.3 Pleural effusion J90 Thrombocytopenia D69.6 Type 2 diabetes mellitus E11.9 GI bleed K92.2 PVC's (premature ventricular contractions) (Inactive) I49.3 Pleural effusion, not elsewhere classified (Inactive) J90 Allergies amiodarone Adverse Reaction (Verified 04/07/19 11:22) vomiting, poor balance, dizziness digoxin Adverse Reaction (Verified 04/07/19 11:22) nausea, dry heaves lorazepam [From Ativan] Adverse Reaction (Verified 04/07/19 11:22) Unknown meloxicam [From Mobic] Adverse Reaction (Verified 04/07/19 11:22) Unknown nortriptyline HCl [From Pamelor] Adverse Reaction (Verified 04/07/19 11:22) Unknown zolpidem tartrate [From Ambien] Adverse Reaction (Verified 04/07/19 11:22) Unknown Home Medications: Ambulatory Orders Medication Instructions Recorded Atorvastatin Calcium [Lipitor] 20 mg PO QHS 05/22/13 Levothyroxine [Synthroid] 50 mcg PO DAILY 04/01/15 Albuterol Inhaler [Ventolin Hfa] 2 puff INHALATION Q6H PRN PRN 04/02/15 Ferrous Sulfate 487.5 mg PO QHS 04/02/15 Hydrocodone/Acetaminophen 0.5 tab PO Q8H PRN PRN 04/02/15 [Hydrocodone-Acetamin 5-325 mg] Insulin Lispro [Humalog KwikPen] 0 unit SQ BIDCM 04/02/15 Folic Acid 1 mg PO DAILY@0800 04/30/15 Insulin Glargine [Lantus SoloStar 35 - 45 units SC QHS 04/30/15 Pen] Cyanocobalamin (Vitamin B-12) 2,500 mcg PO DAILY 06/10/16 [Vitamin B12] Magnesium 250 mg PO DAILY 05/24/17 potassium chloride ER 20 mEq 20 meq PO DAILY #90 tab 01/24/18 tablet,extended release(part/cryst) Warfarin Sodium [Coumadin] 2 mg PO DAILY 03/07/19 Cholecalciferol (Vitamin D3) 1,000 unit PO DAILY 04/07/19 [Vitamin D3] Furosemide [Lasix] 20 mg PO QODAY 04/07/19 Trazodone HCl 150 mg PO QHS 04/07/19 Venlafaxine HCl 37.5 mg PO BID 04/07/19 Surgical History: Surgical History (Last Reviewed 12/17/18 @ 09:17 by Eddie Mendoza MD) Presence of permanent cardiac pacemaker (Chronic) Onset Date: 08/30/18 Z95.0 Implant: 07/31/2008; PPM Generator Change - [employer], [employer] MR 08/30/2018 History of mitral valve replacement with mechanical valve (Chronic) Onset Date: 07/22/08 Z95.[address] Alex mechanical valve History of left heart catheterization Onset Date: 07/17/08 Z98.890 History of cardioversion Onset Date: 10/2015 Z98.890 History of incision of pericardium Z98.890 for pericardial effusion Surgical History: - - Mitral valve replacement with mechanical valve. Psychiatric History: No pertinent psych hx [employer] History: No pertinent [employer] history Lives: Spouse/ Significant Other Smoking Status: Current every day smoker Tobacco Use: Cigarettes Alcohol: None Drugs: None - *Family History Paternal Family History: Family History (Last Reviewed 12/17/18 @ 09:17 by Eddie Mendoza MD) Mother Cancer History Items: No pertinent history Maternal Family History: Family History (Last Reviewed 12/17/18 @ 09:17 by Eddie Mendoza MD) Mother Cancer History Items: No pertinent history Review of Systems Constitutional: Denies: Chills, Fever Eyes: Denies: Blurred vision, Double vision HEENT: Denies: Head Aches, Sinus Congestion, Sinus Drainage Cardiovascular: Reports: Light Headedness. Denies: Chest Pain, Palpitations Respiratory: Denies: Cough, Shortness of breath at rest, Sputum production Gastrointestinal: Reports: Melena Genitourinary: Denies: Dysuria Musculoskeletal: Denies: Joint Pain, Joint Tenderness Skin: Denies: Rash, Wounds Neurological: Denies: Numbness, Tingling, Focal weakness Psychiatric: Denies: Anxiety, Depression, Homicidal Ideations, Suicidal Ideations Hematologic/ Lymphatic: Reports: Anemia, Hx of blood transfusion Patient Problems: Active and Suspected Problems (Last Reviewed 12/17/18 @ 09:17 by Eddie Mendoza MD) Anemia (Acute) - Physical Exam General: Alert, Cooperative, No apparent distress HEENT: Atraumatic, PERRLA, Normocephalic Oral: No Gingival or Mucosal Lesions/ Ulcerations Neck: Supple, No Nodes, Trachea Midline Lungs: No rhonchi, No wheeze, No rales Cardiovascular: Normal S1, Normal S2, Murmur, Tachycardic Abdomen: Bowel Sounds Present, Soft, Non Tender Extremities: No clubbing, No cyanosis, No edema Skin: No breakdown Musculoskeletal: No Tenderness to Palpation of Joints or Extremities Lymphatic: No Cervical, Supraclavicular, or Inguinal Adenopathy Neurological: Neuro grossly intact Psych/Mental Status: Normal Affect, Appropriate Vital Signs Temp Pulse Resp BP Pulse Ox 98 F 109 H 23 H 91/64 98 04/08/19 01:00 04/08/19 05:00 04/08/19 05:00 04/08/19 05:00 04/08/19 05:00 Oxygen Flow Rate (L/min) 2 Oxygen Delivery Method Nasal Cannula Weight: 147 lb 0.773 oz Body Mass Index (BMI) 26.2 Finger Stick Blood Glucose 194 Intake and Output for Last 24 Hours 08/04/07/19 04/08/19 23:59 23:59 23:59 Intake Total 180.58 / 2008.58 600 / 600 Output Total 150 / 150 Balance 1809.58 / 1859.58 450 / 450 Laboratory Tests Past 24 Hrs 04/07/19 04/07/19 04/07/19 12:05 12:05 12:58 WBC 4.2 L RBC 1.94 L Hgb 5.7 L* Hct 18.7 L MCV 96.4 MCH 29.4 MCHC 30.5 L RDW Std Deviation 60.8 H RDW Coeff of Uriel 18.0 H Plt Count 88 L MPV 11.7 Immature Gran % (Auto) 0.500 Neut % (Auto) 85.2 H Lymph % (Auto) 9.3 L [place] % (Auto) 4.8 Eos % (Auto) 0.0 Baso % (Auto) 0.2 Absolute Neuts (auto) 3.6 Absolute Lymphs (auto) 0.39 L Nucleated RBC % 0 Diff Path Review May foll Platelet Estimate MOD DEC Polychromasia RARE Hypochromasia 3+ Anisocytosis 1+ Microcytosis 1+ PT INR Sodium Potassium Chloride Carbon Dioxide Anion Gap BUN Creatinine Estim Creat Clear Calc Est GFR (MDRD) Af Amer Est GFR (MDRD) Non-Af BUN/Creatinine Ratio Glucose Calcium Total Bilirubin AST ALT Alkaline Phosphatase Total Protein Albumin Globulin Albumin/Globulin Ratio TSH Blood Type A POSITIVE Antibody Screen NEGATIVE Crossmatch See Detail 04/07/19 04/07/19 04/07/19 12:58 12:58 14:00 WBC RBC Hgb Hct MCV MCH MCHC RDW Std Deviation RDW Coeff of Uriel Plt Count MPV Immature Gran % (Auto) Neut % (Auto) Lymph % (Auto) [place] % (Auto) Eos % (Auto) Baso % (Auto) Absolute Neuts (auto) Absolute Lymphs (auto) Nucleated RBC % Diff Path Review Platelet Estimate Polychromasia Hypochromasia Anisocytosis Microcytosis PT 51.5 H INR 5.6 H* Sodium 143 Potassium 4.6 Chloride 111 H Carbon Dioxide 23.0 Anion Gap 9 BUN 28 H Creatinine 1.56 H Estim Creat Clear Calc 24.26 Est GFR (MDRD) Af Amer 42 L Est GFR (MDRD) Non-Af 34 L BUN/Creatinine Ratio 17.9 Glucose 256 H Calcium 7.5 L Total Bilirubin 0.30 AST 11 L ALT 13 Alkaline Phosphatase 62 Total Protein 5.6 L Albumin 2.9 L Globulin 2.7 Albumin/Globulin Ratio 1.1 TSH 3.18 Blood Type Antibody Screen Crossmatch 04/08/19 04/08/19 04/08/19 01:40 04:40 04:40 WBC 4.2 L RBC 3.10 L Hgb 9.3 L 8.9 L Hct 29.8 L 29.1 L MCV 93.9 MCH 28.7 MCHC 30.6 L RDW Std Deviation 55.0 H RDW Coeff of Uriel 17.0 H Plt Count 78 L MPV 11.5 Immature Gran % (Auto) 0.500 Neut % (Auto) 82.2 H Lymph % (Auto) 9.7 L [place] % (Auto) 7.4 Eos % (Auto) 0.0 Baso % (Auto) 0.2 Absolute Neuts (auto) 3.5 Absolute Lymphs (auto) 0.41 L Nucleated RBC % 0 Diff Path Review Platelet Estimate Polychromasia Hypochromasia Anisocytosis Microcytosis PT 52.4 H INR 5.7 H* Sodium Potassium Chloride Carbon Dioxide Anion Gap BUN Creatinine Estim Creat Clear Calc Est GFR (MDRD) Af Amer Est GFR (MDRD) Non-Af BUN/Creatinine Ratio Glucose Calcium Total Bilirubin AST ALT Alkaline Phosphatase Total Protein Albumin Globulin Albumin/Globulin Ratio TSH Blood Type Antibody Screen Crossmatch 04/08/19 04:40 WBC RBC Hgb Hct MCV MCH MCHC RDW Std Deviation RDW Coeff of Uriel Plt Count MPV Immature Gran % (Auto) Neut % (Auto) Lymph % (Auto) [place] % (Auto) Eos % (Auto) Baso % (Auto) Absolute Neuts (auto) Absolute Lymphs (auto) Nucleated RBC % Diff Path Review Platelet Estimate Polychromasia Hypochromasia Anisocytosis Microcytosis PT INR Sodium 144 Potassium 4.1 Chloride 113 H Carbon Dioxide 26.0 Anion Gap 5 BUN 25 H Creatinine 1.47 H Estim Creat Clear Calc 25.75 Est GFR (MDRD) Af Amer 44 L Est GFR (MDRD) Non-Af 37 L BUN/Creatinine Ratio 17.0 Glucose 188 H Calcium 7.0 L Total Bilirubin AST ALT Alkaline Phosphatase Total Protein Albumin Globulin Albumin/Globulin Ratio TSH Blood Type Antibody Screen Crossmatch POC Glucose 04/07/19 04/07/19 21:07 16:43 POC Glucose 180 H 186 H Assessment/Plan Active and Suspected Problems (Last Reviewed 12/17/18 @ 09:17 by Eddie Mendoza MD) Anemia (Acute) RECOMMENDATIONS: 1. Recheck H&H at noon. 2. Continue to hold Coumadin and check daily coagulation profile. 3. Encourage incentive spirometer use while in bed. IMPRESSIONS: 1. Acute on chronic anemia The patient is followed longitudinally as an outpatient by Dr. Thomas at [facility]. She requires frequent transfusions. The patient has received a total of 3 units of packed red blood cells to date. Her presenting symptoms have improved. While her INR is supratherapeutic, she does not appear to be actively bleeding. Therefore, immediate reversal of her coagulopathy is not warranted. Recommend continuing to hold Coumadin. Recheck H&H this afternoon. 2. Coagulopathy The patient did present to the hospital with a supratherapeutic INR on Coumadin. At the current time, given the lack of active blood loss, will continue to hold Coumadin without the immediate need to reverse her INR. 3. Hypotension While the patient is relatively hypotensive, she does report that her baseline blood pressures are typically in the 70s and 80s systolic. She is asymptomatic at this time and mentating appropriately. This note was generated with [employer] dictation software. It may contain incorrect words, spelling, and punctuation that were not noted in checking the note before signing. Code Visit Inpatient E&M: 48948 Init Hosp L3
[2019-04-08 07:22] LABS: Differential Comment SCANNED; Platelet Estimate SLT DEC (ADEQ)
[2019-04-08 09:01] LABS: Bedside Glucose 143 mg/dL (70-110)
--- NOTE | 2019-04-08 10:05 | CASEMGMT ---
RN CM Assessment Presentation: Anemia, Elevated INR. H/H 5.7/18.7 Intro role of CM and purpose of RN CM assessment to patient in room. She is awake, alert, oriented and able to participate in assessment. Demographics, PCP and Pharmacy verified. Pt states she lives independently in own home with her . Pt states she has BG monitoring equipment and checks her blood sugar twice daily. Pt does not anticipate needs on discharge. RN CM let pt know CM is available for assist with dc planning if needs arise. PCP: Dr. Muñoz Specialists: Dr. Bry Gomes Preferred Pharmacy: [facility] Insurance: [facility]; [facility] Prescription Benefit: yes LNOK: Zia Miranda Living Arrangements: Lives in two story home with first floor set up. Pt states first floor has 1/2 bath, upstairs has shower. Pt is able to use stairs, however goes up to shower 2-3 times per week. Pt states she is independent with ADL's. Transportation: Drives DME: Pt denies using ambulatory DME at this time. Walker, cane, electric wheelchair, Blood Glucose monitoring. `Home Oxygen: [employer]. Pt states she has concentrator and portability. HHC: none Patient DC goals: Home DC PLAN: Home on discharge. Jonel BLOOD RN ACM
[2019-04-08] MEDS: Venlafaxine HCl 75 MG Tablet 37.5 MG PO ×2 (10:14→21:41)
[2019-04-08] MEDS: Folic Acid 1 MG Tablet PO (10:14)
[2019-04-08] MEDS: Magnesium Oxide 400 MG Tablet PO (10:14)
[2019-04-08] MEDS: Insulin Lispro 100 UNIT/ML INSULN.PEN SC ×2 (12:23→16:21)
[2019-04-08 12:30] LABS: Bedside Glucose 245 mg/dL (70-110)
[2019-04-08 12:39] LABS: Hematocrit 30.5 % (37-47); Hemoglobin 9.4 g/dL (12.0-15.0)
[2019-04-08 16:26] LABS: Bedside Glucose 172 mg/dL (70-110)
[2019-04-08 16:30] LABS: Hematocrit 30.9 % (37-47); Hemoglobin 9.6 g/dL (12.0-15.0)
[2019-04-08 17:21] LABS: Bedside Glucose 154 mg/dL (70-110)
--- NOTE | 2019-04-08 18:22 | PN_ITS ---
Subjective: In and examined today, she does not complain of any shortness of breath or chest discomfort, her INR today was 5.7, her hemoglobin has been stable-the last one today was 9.6. I feel the patient is stable for transfer to PCU at this time. Labs will be rechecked in the morning. - Physical Exam General: Alert, Oriented x3, Cooperative, No apparent distress HEENT: Atraumatic, PERRLA, EOMI, Normocephalic Oral: Moist Mucosa Neck: Supple, No JVD, Negative Carotid Bruits, No Nuchal Rigidity, Trachea Midline, Thyroid Normal Size and Texture Lungs: Clear to auscultation, Normal air movement, No rhonchi, No wheeze, No rales Cardiovascular: Regular rate, Regular Rhythm, Normal S1, Normal S2, No murmurs, PMI Normal, No rub noted Abdomen: Bowel Sounds Present, Soft, Non Tender, Non-Distended Extremities: No clubbing, No cyanosis, No edema, Capillary Refill Less than 3 Seconds Skin: No rashes, No breakdown Musculoskeletal: No Tenderness to Palpation of Joints or Extremities Neurological: Cranial nerves II-XII grossly intact, Neuro grossly intact, Sensory exam intact to light touch and pain, Coordination normal Psych/Mental Status: Normal Affect, Appropriate, Alert and oriented to time, place, person, mood and affect Vital Signs Temp Pulse Resp BP Pulse Ox 98.2 F 109 H 16 94/58 L 92 04/08/19 16:25 04/08/19 16:25 04/08/19 16:25 04/08/19 16:25 04/08/19 16:25 Oxygen Flow Rate (L/min) 3 Oxygen Delivery Method Room Air Weight: 66.7 kg Body Mass Index (BMI) 26.2 Finger Stick Blood Glucose 194 Intake and Output for Last 24 Hours 04/06/19 04/07/19 04/08/19 23:59 23:59 23:59 Intake Total 1809.58 / 2008.58 1831.67 / 1831.67 Output Total 150 / 150 Balance 1809.58 / 1859.58 1681.67 / 1681.67 Laboratory Tests Past 24 Hrs 04/07/19 04/08/19 04/08/19 12:05 01:40 04:40 WBC 4.2 L RBC 3.10 L Hgb 9.3 L 8.9 L Hct 29.8 L 29.1 L MCV 93.9 MCH 28.7 MCHC 30.6 L RDW Std Deviation 55.0 H RDW Coeff of Uriel 17.0 H Plt Count 78 L MPV 11.5 Immature Gran % (Auto) 0.500 Neut % (Auto) 82.2 H Lymph % (Auto) 9.7 L [place] % (Auto) 7.4 Eos % (Auto) 0.0 Baso % (Auto) 0.2 Absolute Neuts (auto) 3.5 Absolute Lymphs (auto) 0.41 L Nucleated RBC % 0 Differential Comment SCANNED Platelet Estimate SLT DEC PT INR Sodium Potassium Chloride Carbon Dioxide Anion Gap BUN Creatinine Estim Creat Clear Calc Est GFR (MDRD) Af Amer Est GFR (MDRD) Non-Af BUN/Creatinine Ratio Glucose Calcium Crossmatch See Detail 04/08/19 04/08/19 04/08/19 04:40 04:40 12:20 WBC RBC Hgb 9.4 L Hct 30.5 L MCV MCH MCHC RDW Std Deviation RDW Coeff of Uriel Plt Count MPV Immature Gran % (Auto) Neut % (Auto) Lymph % (Auto) [place] % (Auto) Eos % (Auto) Baso % (Auto) Absolute Neuts (auto) Absolute Lymphs (auto) Nucleated RBC % Differential Comment Platelet Estimate PT 52.4 H INR 5.7 H* Sodium 144 Potassium 4.1 Chloride 113 H Carbon Dioxide 26.0 Anion Gap 5 BUN 25 H Creatinine 1.47 H Estim Creat Clear Calc 25.75 Est GFR (MDRD) Af Amer 44 L Est GFR (MDRD) Non-Af 37 L BUN/Creatinine Ratio 17.0 Glucose 188 H Calcium 7.0 L Crossmatch 04/08/19 16:20 WBC RBC Hgb 9.6 L Hct 30.9 L MCV MCH MCHC RDW Std Deviation RDW Coeff of Uriel Plt Count MPV Immature Gran % (Auto) Neut % (Auto) Lymph % (Auto) [place] % (Auto) Eos % (Auto) Baso % (Auto) Absolute Neuts (auto) Absolute Lymphs (auto) Nucleated RBC % Differential Comment Platelet Estimate PT INR Sodium Potassium Chloride Carbon Dioxide Anion Gap BUN Creatinine Estim Creat Clear Calc Est GFR (MDRD) Af Amer Est GFR (MDRD) Non-Af BUN/Creatinine Ratio Glucose Calcium Crossmatch POC Glucose 04/08/19 04/08/19 04/08/19 17:13 16:15 12:17 POC Glucose 154 H 172 H 245 H 04/08/19 04/07/19 08:52 21:07 POC Glucose 143 H 180 H Medical Necessity - Tobacco Use Smoking Status: Current every day smoker Tobacco Use: Cigarettes Assessment/Plan All Active Problems (Last Reviewed 12/17/18 @ 09:17 by Eddie Mendoza MD) Anemia (Acute) #1 acute on chronic blood loss anemia, iron deficiency-felt to be secondary to GI bleeding from unknown source-patient continues to be monitored, she may need additional packed red blood cells #2 chronic coagulopathy secondary to Coumadin usage-supratherapeutic INR #3 chronic kidney disease stage III #4 type 2 diabetes #5 probable chronic obstructive pulmonary disease Code Visit Inpatient E&M: 75534 Subs Hosp L2
[2019-04-08] MEDS: Ferrous Sulfate 325 MG Tablet PO (21:42)
[2019-04-08] MEDS: Atorvastatin Calcium 20 MG Tablet PO (21:43)
[2019-04-08 21:56] LABS: Bedside Glucose 189 mg/dL (70-110)
[2019-04-09] VITALS (7 sets, daily range): BP systolic 90–95; BP diastolic 51–60; PULSE 110–114; RESP 17–20; TEMP 36.7–36.9; O2SAT 92–93
[2019-04-09] MEDS: Levothyroxine 50 MCG Tablet PO (05:32)
[2019-04-09 06:00] LABS: Prothrombin Time (Protime)PT. 41.4 SECONDS (11.7-14.9)
[2019-04-09 06:02] LABS: Hemoglobin 9.2 g/dL (12.0-15.0); Mean Corp Hgb Conc 30.7 g/dL (32-36); Mean Corpuscular Hgb 29.7 pg (27.0-32.0); Mean Corpuscular Volume 96.8 fL (81-99); Mean Platelet Vol. 11.9 fl (6.2-12.0); Platelet Count 85 K/mm3 (150-450); RBC Distribution Width CV 17.4 % (11.6-14.6); RBC Distribution Width SD 59.1 fl (35.1-43.9); White Blood Count 4.4 K/mm3 (4.4-11.0)
[2019-04-09 06:11] LABS: International Normalized Ratio 4.3
[2019-04-09 06:56] LABS: Bedside Glucose 84 mg/dL (70-110)
--- NOTE | 2019-04-09 07:08 | PCM.PN.PUL ---
Patient Problems: Active and Suspected Problems (Last Reviewed 12/17/18 @ 09:17 by Eddie Mendoza MD) Anemia (Acute) Subjective: The patient was seen and examined at the bedside this morning. Events from the last 24 hours have been reviewed. The patient is currently afebrile, but remains tachycardic. Blood pressures are at baseline with a systolic in the 90s. Hemoglobin is stable this morning at 9.2 g/dL. INR remains elevated at 4.3. The patient denies the presence of dizziness or lightheadedness. She is anxious to be discharged home. Objective: The patient's most recent lab work, culture data and imaging studies have all been personally reviewed. - Physical Exam General: Alert, Cooperative, No apparent distress HEENT: Atraumatic, PERRLA, Normocephalic Oral: Moist Mucosa, No Gingival or Mucosal Lesions/ Ulcerations Neck: Supple, No Nodes, Trachea Midline Lungs: Normal air movement, No rhonchi, No wheeze, No rales Cardiovascular: Normal S1, Normal S2, Murmur, Tachycardic Abdomen: Bowel Sounds Present, Soft, Non Tender Extremities: No clubbing, No cyanosis, No edema Skin: No rashes Musculoskeletal: No Tenderness to Palpation of Joints or Extremities Lymphatic: No Cervical, Supraclavicular, or Inguinal Adenopathy Neurological: Cranial nerves II-XII grossly intact, Neuro grossly intact Psych/Mental Status: Alert and oriented to time, place, person, mood and affect Vital Signs Temp Pulse Resp BP Pulse Ox 98.0 F 112 H 18 95/51 L 92 04/09/19 05:30 04/09/19 05:30 04/09/19 05:30 04/09/19 05:30 04/09/19 05:30 Oxygen Flow Rate (L/min) 2 Oxygen Delivery Method Nasal Cannula Weight: 147 lb 0.773 oz Body Mass Index (BMI) 26.2 Finger Stick Blood Glucose 194 Intake and Output for Last 24 Hours 04/07/19 04/08/19 04/09/19 23:59 23:59 23:59 Intake Total 1808.58 / 58 195.67 / 1950.67 120 / 120 Output Total 150 / 150 Balance 180.58 / 185.58 180.67 / 1800.67 120 / 120 Laboratory Tests Past 24 Hrs 04/08/19 04/08/19 04/08/19 04:40 12:20 16:20 WBC RBC Hgb 9.4 L 9.6 L Hct 30.5 L 30.9 L MCV MCH MCHC RDW Std Deviation RDW Coeff of Uriel Plt Count MPV Differential Comment SCANNED Platelet Estimate SLT DEC PT INR 04/09/19 04/09/19 05:20 05:20 WBC 4.4 RBC 3.10 L Hgb 9.2 L Hct 30.0 L MCV 96.8 MCH 29.7 MCHC 30.7 L RDW Std Deviation 59.1 H RDW Coeff of Uriel 17.4 H Plt Count 85 L MPV 11.9 Differential Comment Platelet Estimate PT 41.4 H INR 4.3 H* POC Glucose 04/09/19 04/08/19 04/08/19 06:50 21:35 17:13 POC Glucose 84 189 H 154 H 04/08/19 04/08/19 04/08/19 16:15 12:17 08:52 POC Glucose 172 H 245 H 143 H Medical Necessity - Tobacco Use Smoking Status: Current every day smoker Tobacco Use: Cigarettes Assessment/Plan All Active Problems (Last Reviewed 12/17/18 @ 09:17 by Eddie Mendoza MD) Anemia (Acute) RECOMMENDATIONS: 1. Monitor blood counts daily. 2. Continue to hold Coumadin and check INR daily. 3. Will sign off from a critical care perspective. IMPRESSIONS: 1. Acute on chronic anemia The patient is followed longitudinally as an outpatient by Dr. Thomas at [facility]. She requires frequent transfusions. The patient has received a total of 3 units of packed red blood cells to date. Her presenting symptoms have improved. While her INR is supratherapeutic, she does not appear to be actively bleeding. Therefore, immediate reversal of her coagulopathy is not warranted. Recommend continuing to hold Coumadin. 2. Coagulopathy The patient did present to the hospital with a supratherapeutic INR on Coumadin. At the current time, given the lack of active blood loss, will continue to hold Coumadin without the immediate need to reverse her INR. 3. Hypotension While the patient is relatively hypotensive, she does report that her baseline blood pressures are typically in the 70s and 80s systolic. She is asymptomatic at this time and mentating appropriately. This note was generated with Dragon dictation software. It may contain incorrect words, spelling, and punctuation that were not noted in checking the note before signing. Code Visit Inpatient E&M: 14425 Subs Hosp L2
[2019-04-09] MEDS: Pantoprazole Sodium 40 MG Tablet PO (09:07)
[2019-04-09] MEDS: Folic Acid 1 MG Tablet PO (09:08)
[2019-04-09] MEDS: Magnesium Oxide 400 MG Tablet PO (09:08)
[2019-04-09] MEDS: Venlafaxine HCl 75 MG Tablet 37.5 MG PO (09:08)
[2019-04-09 09:26] LABS: Pathologist Review Reviewed
[2019-04-09 12:31] LABS: Bedside Glucose 168 mg/dL (70-110)
--- NOTE | 2019-04-09 13:40 | DCINST_ITS ---
- Discharge Diagnoses Current Active Problems: Current Active and Chronic Problems (Last Reviewed 12/17/18 @ 09:17 by Eddie Mendoza MD) Anemia (Acute) Hypotension (Chronic) You will use the following diet at home:: Calorie/Carbohydrate Controlled (specify 1200, 1400, etc) - 1800 elly Your food should be the consistency of: Regular Your liquids should be the consistency of: Regular/Thin Discharge Activity: Return to Normal Activity Weight Bearing Status: Full weight bearing Allergies/Adverse Reactions: Allergies amiodarone Adverse Reaction (Verified 04/07/19 11:22) vomiting, poor balance, dizziness digoxin Adverse Reaction (Verified 04/07/19 11:22) nausea, dry heaves lorazepam [From Ativan] Adverse Reaction (Verified 04/07/19 11:22) Unknown meloxicam [From Mobic] Adverse Reaction (Verified 04/07/19 11:22) Unknown nortriptyline HCl [From Pamelor] Adverse Reaction (Verified 04/07/19 11:22) Unknown zolpidem tartrate [From Ambien] Adverse Reaction (Verified 04/07/19 11:22) Unknown Medications to take at Discharge Atorvastatin Calcium [Lipitor] 20 mg PO QHS 05/22/13 Levothyroxine [Synthroid] 50 mcg PO DAILY 04/01/15 Albuterol Inhaler [Ventolin Hfa] 2 puff INHALATION Q6H PRN PRN 04/02/15 Ferrous Sulfate 487.5 mg PO QHS 04/02/15 Hydrocodone/Acetaminophen [Hydrocodone-Acetamin 5-325 mg] 0.5 tab PO Q8H PRN PRN 04/02/15 Insulin Lispro [Humalog KwikPen] 0 unit SQ BIDCM 04/02/15 Folic Acid 1 mg PO DAILY@0800 04/30/15 Insulin Glargine [Lantus SoloStar Pen] 35 - 45 units SC QHS 04/30/15 Cyanocobalamin (Vitamin B-12) [Vitamin B12] 2,500 mcg PO DAILY 06/10/16 Magnesium 250 mg PO DAILY 05/24/17 potassium chloride ER 20 mEq tablet,extended release(part/cryst) 20 meq PO DAILY #90 tab 01/24/18 Cholecalciferol (Vitamin D3) [Vitamin D3] 1,000 unit PO DAILY 04/07/19 Furosemide [Lasix] 20 mg PO QODAY 04/07/19 Trazodone HCl 150 mg PO QHS 04/07/19 Venlafaxine HCl 37.5 mg PO BID 04/07/19 Pantoprazole Sodium [Protonix] 40 mg PO DAILY #30 tab 04/09/19 Warfarin [Coumadin] 1.5 mg PO DAILY #1 tab 04/09/19 The following prescriptions were given: Warfarin [Coumadin] 1.5 mg PO DAILY #1 tab Pantoprazole Sodium [Protonix] 40 mg PO DAILY #30 tab Prescription Printed Primary Care Physician: Kodak Muñoz MD [Primary Care Provider] - Please follow up with your Primary Care Physician in: in 1-2 week Test Results: Test results from this visit will be discussed in further detail at your follow- up appointment, if applicable. Please Follow Up With: Eddie Mendoza MD When: Sunday
--- NOTE | 2019-04-09 14:08 | PHA.DC.MC ---
Pharmacy Service has performed discharge medication reconciliation and counseling for this patient. The patient's discharge medication list was reviewed for discrepancies and discrepancies were resolved. The patient was counseled on the following discharge medications and changes in medications for homegoing were reviewed. 1. PROTONIX 1T PO QDAY 2. WARFARIN 1.5MG PO DAILY The Reason for Use, instructions for use, and potential side effects were reviewed for all new medications. The patient's questions regarding all of their medications were answered. The patient was able to verbally demonstrate an understanding of their discharge medications. Home Medications Atorvastatin Calcium [Lipitor] 20 mg PO QHS 05/22/13 Levothyroxine [Synthroid] 50 mcg PO DAILY 04/01/15 Albuterol Inhaler [Ventolin Hfa] 2 puff INHALATION Q6H PRN PRN 04/02/15 Ferrous Sulfate 487.5 mg PO QHS 04/02/15 Hydrocodone/Acetaminophen [Hydrocodone-Acetamin 5-325 mg] 0.5 tab PO Q8H PRN PRN 04/02/15 Insulin Lispro [Humalog KwikPen] 0 unit SQ BIDCM 04/02/15 Folic Acid 1 mg PO DAILY@0800 04/30/15 Insulin Glargine [Lantus SoloStar Pen] 35 - 45 units SC QHS 04/30/15 Cyanocobalamin (Vitamin B-12) [Vitamin B12] 2,500 mcg PO DAILY 06/10/16 Magnesium 250 mg PO DAILY 05/24/17 potassium chloride ER 20 mEq tablet,extended release(part/cryst) 20 meq PO DAILY #90 tab 01/24/18 Cholecalciferol (Vitamin D3) [Vitamin D3] 1,000 unit PO DAILY 04/07/19 Furosemide [Lasix] 20 mg PO QODAY 04/07/19 Trazodone HCl 150 mg PO QHS 04/07/19 Venlafaxine HCl 37.5 mg PO BID 04/07/19 Pantoprazole Sodium [Protonix] 40 mg PO DAILY #30 tab 04/09/19 Warfarin [Coumadin] 1.5 mg PO DAILY #1 tab 04/09/19
--- NOTE | 2019-04-10 12:29 | DS.PCM_ITS ---
Discharge Date and Diagnosis Date of Admission: 04/07/19 Date of Discharge: 04/09/19 - Primary Discharge Diagnosis #1 acute on chronic blood loss anemia, iron deficiency-felt to be secondary to GI bleeding from unknown source-requiring blood transfusion #2 chronic coagulopathy secondary to Coumadin usage-supratherapeutic INR #3 chronic kidney disease stage III #4 type 2 diabetes #5 probable chronic obstructive pulmonary disease - Secondary Discharge Diagnosis Chronic Problems (Last Reviewed 12/17/18 @ 09:17 by Eddie Mendoza MD) Chronic atrial fibrillation (Chronic) Tachycardia-bradycardia syndrome (Chronic) Non-rheumatic tricuspid valve insufficiency (Chronic) Nicotine dependence (Chronic) GI bleeding (Chronic) Non-rheumatic aortic stenosis (Chronic) Nonrheumatic mitral (valve) insufficiency (Chronic) Presence of permanent cardiac pacemaker (Chronic 08/30/18) Implant: 07/31/2008; PPM Generator Change - i.TV, Accolade MR 08/30/2018 Typical atrial flutter (Chronic) Hypotension (Chronic) Secondary pulmonary hypertension (Chronic) 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 Alex mechanical valve Hospital Course and Treatment Operations: None Procedures: Blood transfusion Summary of Care Provided: The patient is a 78 year old F who was seen in the emergency room at [facility] with a chief complaint lightheadedness and presyncope. Patient had a history of blood loss anemia from an unknown site, work-up in the emergency room revealed her hemoglobin to be low at 5.7. She was admitted to ICU, seen by critical care, and given 3 units of packed red blood cells. Patient's INR was also elevated on admission, she had a mechanical mitral valve and was on chronic warfarin. Patient stabilized and was moved out to PCU, repeat hemoglobins did not show any drop in her hemoglobin. On 04/09/2019, patient was seen and examined: On examination she appeared in good health and spirits. Vital signs as documented. Skin warm and dry and without overt rashes. Neck without JVD. Lungs clear. Heart exam notable for regular rhythm, normal sounds and absence of murmurs, rubs or gallops. Abdomen unremarkable and without evidence of organomegaly, masses, or abdominal aortic enlargement. Extremities nonedematous. Neuro: Cranial nerves II through XII are grossly intact, no focal motor deficits were noted, sensation to light touch and pinprick is intact. Psych: Patient is alert and oriented x3, she does not appear anxious or depressed On 04/09/2019, patient was seen and examined and felt to be in stable condition for discharge home - Physical Exam Vital Signs Temp Pulse Resp BP Pulse Ox 98.1 F 110 H 18 92/60 93 04/09/19 12:30 04/09/19 12:30 04/09/19 12:30 04/09/19 12:30 04/09/19 12:30 Oxygen Flow Rate (L/min) 2 Oxygen Delivery Method Room Air Weight: 66.7 kg Body Mass Index (BMI) 26.2 Finger Stick Blood Glucose 194 Intake and Output for Last 24 Hours 04/08/19 04/09/19 04/10/19 23:59 23:59 23:59 Intake Total 1951.67 / 1951.67 220 / 220 Output Total 150 / 150 Balance 1801.67 / 1801.67 220 / 220 POC Glucose 04/09/19 12:28 POC Glucose 168 H Discharge Activity: Return to Normal Activity Weight Bearing Status: Full weight bearing Home Medications: Medications to take at Discharge Atorvastatin Calcium [Lipitor] 20 mg PO QHS 05/22/13 Levothyroxine [Synthroid] 50 mcg PO DAILY 04/01/15 Albuterol Inhaler [Ventolin Hfa] 2 puff INHALATION Q6H PRN PRN 04/02/15 Ferrous Sulfate 487.5 mg PO QHS 04/02/15 Hydrocodone/Acetaminophen [Hydrocodone-Acetamin 5-325 mg] 0.5 tab PO Q8H PRN PRN 04/02/15 Insulin Lispro [Humalog KwikPen] 0 unit SQ BIDCM 04/02/15 Folic Acid 1 mg PO DAILY@0800 04/30/15 Insulin Glargine [Lantus SoloStar Pen] 35 - 45 units SC QHS 04/30/15 Cyanocobalamin (Vitamin B-12) [Vitamin B12] 2,500 mcg PO DAILY 06/10/16 Magnesium 250 mg PO DAILY 05/24/17 potassium chloride ER 20 mEq tablet,extended release(part/cryst) 20 meq PO DAILY #90 tab 01/24/18 Cholecalciferol (Vitamin D3) [Vitamin D3] 1,000 unit PO DAILY 04/07/19 Furosemide [Lasix] 20 mg PO QODAY 04/07/19 Trazodone HCl 150 mg PO QHS 04/07/19 Venlafaxine HCl 37.5 mg PO BID 04/07/19 Pantoprazole Sodium [Protonix] 40 mg PO DAILY #30 tab 04/09/19 Warfarin [Coumadin] 1.5 mg PO DAILY #1 tab 04/09/19 Following Prescrptions Were Given to Patient: Warfarin [Coumadin] 1.5 mg PO DAILY #1 tab Pantoprazole Sodium [Protonix] 40 mg PO DAILY #30 tab Prescription Printed Primary Care Physician: Kodak Muñoz MD [Primary Care Provider] - Please follow up with your Primary Care Physician in: in 1-2 week Please Follow Up With: Eddie Mendoza MD When: Sunday Please Follow Up With: Kodak Muñoz MD Disposition: Home Minutes spent on discharge:: 32 Patient Condition:: Stable Medical Necessity - Tobacco Use Smoking Status: Current every day smoker Tobacco Use: Cigarettes Meaningful Use Info Meaningful Use Diagnoses (Choose all that apply): None applicable Code Visit Inpatient E&M: 03884 Disch Hosp
--- NOTE | 2019-04-10 14:14 | CASEMGMT ---
ANDRES ANGUIANO Discharge Follow-Up Phone Call. Maris: Raheem Strata: 3 Discharge Date: 04/09/19 Adm Dx: Acute on Chronic Symptomatic Anemia, Hypotension Call to pt to inquire about how she has been doing since being discharged from the hospital. She states she is still weak but she is getting by and states she has a lot of support from her and her daughter who is currently with her. She stated, It's just going to take me a couple of days to bounce back. Pt denies having any questions/concerns about the discharge instructions, medications, or follow-up appts. She states she plans on getting her INR checked tomorrow. ANDRES ANGUIANO thanked pt for choosing [facility]. Jorge A BLOOD RN, CM
== END 2019-04-09 15:10 | disposition home or self-care (01) | DRG 812 ==
LOC: ED 15:11 → ICU 15:14 → PCU 04-09 07:36
PROVIDERS: Internal Medicine Critical Care Medicine; Admitting Provider Hospitalist; Emergency Provider Emergency Medicine; Family Provider Internal Medicine; PCP Internal Medicine; Referring Provider Hospitalist; Visit Provider Internal Medicine
DX: D62 Acute posthemorrhagic anemia (principal); K92.2 Gastrointestinal hemorrhage, unspecified; K92.1 Melena; N18.3 Chronic kidney disease, stage 3 (moderate); E11.22 Type 2 diabetes mellitus with diabetic chronic kidney disease; E03.9 Hypothyroidism, unspecified; E78.5 Hyperlipidemia, unspecified; F17.210 Nicotine dependence, cigarettes, uncomplicated; T45.515A Adverse effect of 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, initial encounter; J44.9 Chronic obstructive pulmonary disease, unspecified; R79.1 Abnormal coagulation profile; Z95.2 Presence of prosthetic heart valve; I27.29 Other secondary pulmonary hypertension; Z79.01 Long term (current) use of 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; Z95.0 Presence of cardiac pacemaker; I34.0 Nonrheumatic mitral (valve) insufficiency; I36.1 Nonrheumatic tricuspid (valve) insufficiency; I49.5 Sick sinus syndrome; Z79.4 Long term (current) use of insulin
CPT/HCPCS: 36415; 80048; 80053; 82962; 84443; 85014; 85018; 85025; 85027; 85610; 86850; 86900; 86901; 86902; 86920; 86922; 99284; 99406; J7030; J7040; P9016; A4216; J3490

== ENCOUNTER 2019-04-11 11:53 | Outpatient (RCR) | payer OTHER, SELFPAY ==
[2019-03-07 07:54] VITALS: BMI 25.7
[2019-03-17 12:11] LABS: International Normalized Ratio 2.1; Prothrombin Time (Protime)PT. 23.5 SECONDS (11.7-14.9)
[2019-03-26 11:50] LABS: International Normalized Ratio 3.3
[2019-04-02 10:33] LABS: International Normalized Ratio 3.7; Prothrombin Time (Protime)PT. 36.9 SECONDS (11.7-14.9)
[2019-04-11 12:47] LABS: International Normalized Ratio 1.9; Prothrombin Time (Protime)PT. 21.4 SECONDS (11.7-14.9)
== END 2019-04-11 13:00 | disposition home or self-care (01) ==
LOC: LAB 11:53
PROVIDERS: Family Provider Internal Medicine; PCP Internal Medicine; Referring Provider Internal Medicine Cardiovascular Disease; Visit Provider Internal Medicine Cardiovascular Disease
DX: I48.3 Typical atrial flutter (principal); I48.0 Paroxysmal atrial fibrillation; Z79.01 Long term (current) use of 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
CPT/HCPCS: 36415; 85610

== ENCOUNTER 2019-04-12 08:42 | Outpatient (CLI) | payer OTHER, SELFPAY ==
[2019-04-11 11:32] VITALS: BMI 25.9
[2019-04-12] MEDS: Acetaminophen 325 MG Tablet 650 MG PO (09:48)
[2019-04-12 09:51] VITALS: BP 64/44; PULSE 112; RESP 12; TEMP 36.4; O2SAT 97
[2019-04-12 10:06] VITALS: BP 71/46; PULSE 109; RESP 12; TEMP 36.6; O2SAT 94
[2019-04-12 11:06] VITALS: BP 77/36; PULSE 108; RESP 14; TEMP 36.4; O2SAT 92
--- NOTE | 2019-04-12 11:50 | NURSING ---
pt wheeled out by
[2019-04-12 11:51] VITALS: BP 74/44; PULSE 104; RESP 12; TEMP 36.5; O2SAT 93
== END 2019-04-12 11:46 | disposition home or self-care (01) ==
LOC: MEDOUTP 08:42 → PCU 08:49
PROVIDERS: Family Provider Internal Medicine; PCP Internal Medicine; Referring Provider Internal Medicine Hematology & Oncology; Visit Provider Internal Medicine Hematology & Oncology
DX: Z51.89 Encounter for other specified aftercare (principal); Z79.01 Long term (current) use of 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; N18.3 Chronic kidney disease, stage 3 (moderate); K92.2 Gastrointestinal hemorrhage, unspecified; D64.9 Anemia, unspecified
CPT/HCPCS: 36430; 86850; 86900; 86901; 86902; 86920; 86922; J7040; P9016

== ENCOUNTER 2019-05-07 11:39 | Outpatient (RCR) | payer OTHER, SELFPAY ==
[2019-04-11 11:32] VITALS: BMI 25.9
[2019-04-16 12:04] LABS: International Normalized Ratio 2.4; Prothrombin Time (Protime)PT. 26.3 SECONDS (11.7-14.9)
[2019-04-23 16:24] LABS: International Normalized Ratio 2.4; Prothrombin Time (Protime)PT. 26.4 SECONDS (11.7-14.9)
[2019-05-07 12:44] LABS: International Normalized Ratio 2.8; Prothrombin Time (Protime)PT. 29.8 SECONDS (11.7-14.9)
== END 2019-05-07 13:00 | disposition home or self-care (01) ==
LOC: LAB 11:39
PROVIDERS: Family Provider Internal Medicine; PCP Internal Medicine; Referring Provider Internal Medicine Cardiovascular Disease; Visit Provider Internal Medicine Cardiovascular Disease
DX: I48.3 Typical atrial flutter (principal); I48.0 Paroxysmal atrial fibrillation; Z79.01 Long term (current) use of 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
CPT/HCPCS: 36415; 85610

== ENCOUNTER → 2019-05-20 09:05 | Outpatient (CLI) | payer OTHER, SELFPAY ==
[2019-04-11 11:32] VITALS: BMI 25.9
[2019-05-20] VITALS (9 sets, daily range): BP systolic 62–95; BP diastolic 41–69; PULSE 62–109; RESP 16–18; TEMP 36.4–36.9; O2SAT 91–94; BMI 24.5
== END ==
PROVIDERS: Family Provider Internal Medicine; PCP Internal Medicine; Referring Provider Internal Medicine Hematology & Oncology; Visit Provider Internal Medicine Hematology & Oncology
DX: N18.9 Chronic kidney disease, unspecified (principal); D63.1 Anemia in chronic kidney disease
CPT/HCPCS: 36430; 86850; 86900; 86901; 86902; 86920; 86922; J7040; P9016; A4216

== ENCOUNTER → 2019-05-29 08:16 | Outpatient (CLI) | payer OTHER, SELFPAY ==
[2019-05-20 09:23] VITALS: BMI 24.5
[2019-05-29 08:23] VITALS: BP 64/41; PULSE 68; RESP 16; TEMP 36.6; BMI 24.7
[2019-05-29] MEDS: Acetaminophen 325 MG Tablet 650 MG PO (08:29)
[2019-05-29 09:16] VITALS: BP 61/46; PULSE 106; RESP 16; TEMP 36.1
[2019-05-29 11:16] VITALS: BP 80/56; PULSE 91; RESP 18; TEMP 36.6; O2SAT 93
== END ==
PROVIDERS: Family Provider Internal Medicine; PCP Internal Medicine; Referring Provider Internal Medicine Hematology & Oncology; Visit Provider Internal Medicine Hematology & Oncology
DX: Z51.89 Encounter for other specified aftercare (principal); N18.9 Chronic kidney disease, unspecified; K74.60 Unspecified cirrhosis of liver; K92.2 Gastrointestinal hemorrhage, unspecified
CPT/HCPCS: 36430; 86850; 86900; 86901; 86920; 86922; J7040; P9016; A4216

== ENCOUNTER 2019-06-05 12:15 | Outpatient (RCR) | payer OTHER, SELFPAY ==
[2019-04-11 11:32] VITALS: BMI 25.9
[2019-05-20 09:23] VITALS: BMI 24.5
[2019-05-28 12:21] LABS: International Normalized Ratio 2.2; Prothrombin Time (Protime)PT. 24.3 SECONDS (11.7-14.9)
[2019-06-05 13:11] LABS: International Normalized Ratio 2.9; Prothrombin Time (Protime)PT. 30.1 SECONDS (11.7-14.9)
== END 2019-06-05 18:00 | disposition home or self-care (01) ==
LOC: LAB 12:15
PROVIDERS: Family Provider Internal Medicine; PCP Internal Medicine; Referring Provider Internal Medicine Cardiovascular Disease; Visit Provider Internal Medicine Cardiovascular Disease
DX: I48.3 Typical atrial flutter (principal); I48.0 Paroxysmal atrial fibrillation; Z79.01 Long term (current) use of 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
CPT/HCPCS: 36415; 85610

== ENCOUNTER → 2019-06-18 12:04 | Outpatient (CLI) | payer OTHER, SELFPAY ==
[2019-05-29 08:23] VITALS: BMI 24.7
[2019-06-18] VITALS (7 sets, daily range): BP systolic 47–61; BP diastolic 31–45; PULSE 95–118; RESP 16–20; TEMP 36.4–36.8; O2SAT 94–100; BMI 24.7
[2019-06-18] MEDS: Acetaminophen 325 MG Tablet 650 MG PO (12:40)
[2019-06-18 13:39] LABS: Prothrombin Time (Protime)PT. 62.3 SECONDS (11.7-14.9)
[2019-06-18 14:33] LABS: International Normalized Ratio 7.1
== END ==
PROVIDERS: Internal Medicine Cardiovascular Disease; Family Provider Internal Medicine; PCP Internal Medicine; Referring Provider Internal Medicine Hematology & Oncology; Visit Provider Internal Medicine Hematology & Oncology
DX: Z51.89 Encounter for other specified aftercare (principal); K92.2 Gastrointestinal hemorrhage, unspecified
CPT/HCPCS: 36430; 85610; 86850; 86900; 86901; 86902; 86920; 86922; J7040; P9016; A4216

== ENCOUNTER → 2019-06-26 08:28 | Outpatient (CLI) | payer OTHER, SELFPAY ==
[2019-06-18 12:11] VITALS: BMI 24.7
[2019-06-26] VITALS (7 sets, daily range): BP systolic 50–86; BP diastolic 32–45; PULSE 87–109; RESP 16–18; TEMP 36.2–36.7; O2SAT 92–96; BMI 23.3
[2019-06-26] MEDS: Acetaminophen 325 MG Tablet 650 MG PO (08:54)
== END ==
PROVIDERS: Family Provider Internal Medicine; PCP Internal Medicine; Referring Provider Internal Medicine Hematology & Oncology; Visit Provider Internal Medicine Hematology & Oncology
DX: Z51.89 Encounter for other specified aftercare (principal); D64.9 Anemia, unspecified; K92.2 Gastrointestinal hemorrhage, unspecified; N18.9 Chronic kidney disease, unspecified
CPT/HCPCS: 36430; 86850; 86900; 86901; 86902; 86920; 86922; J7040; P9016; A4216

== ENCOUNTER 2019-07-07 11:14 | Outpatient (RCR) | payer OTHER, SELFPAY ==
[2019-05-29 08:23] VITALS: BMI 24.7
[2019-06-18 12:11] VITALS: BMI 24.7
[2019-06-20 15:41] LABS: International Normalized Ratio 3.3; Prothrombin Time (Protime)PT. 34.1 SECONDS (11.7-14.9)
[2019-06-25 11:48] LABS: Prothrombin Time (Protime)PT. 37.5 SECONDS (11.7-14.9)
[2019-06-25 11:52] LABS: International Normalized Ratio 3.8
[2019-07-02 12:10] LABS: International Normalized Ratio 2.1; Prothrombin Time (Protime)PT. 23.3 SECONDS (11.7-14.9)
[2019-07-07 12:32] LABS: Prothrombin Time (Protime)PT. 40.1 SECONDS (11.7-14.9)
[2019-07-07 12:38] LABS: International Normalized Ratio 4.1
== END 2019-07-07 18:00 | disposition home or self-care (01) ==
LOC: LAB 11:14
PROVIDERS: Family Provider Internal Medicine; PCP Internal Medicine; Referring Provider Internal Medicine Cardiovascular Disease; Visit Provider Internal Medicine Cardiovascular Disease
DX: I48.3 Typical atrial flutter (principal); I48.0 Paroxysmal atrial fibrillation; Z79.01 Long term (current) use of 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
CPT/HCPCS: 36415; 85610

== ENCOUNTER → 2019-07-31 07:48 | Outpatient (CLI) | payer OTHER, SELFPAY ==
[2019-07-08 12:40] VITALS: BMI 22.8
[2019-07-31] VITALS (7 sets, daily range): BP systolic 55–110; BP diastolic 34–80; PULSE 100–109; RESP 16–18; TEMP 36.6–37.2; O2SAT 93–97; BMI 24.1
[2019-07-31] MEDS: Acetaminophen 325 MG Tablet 650 MG PO (08:09)
== END ==
PROVIDERS: Family Provider Internal Medicine; PCP Internal Medicine; Referring Provider Internal Medicine Hematology & Oncology; Visit Provider Internal Medicine Hematology & Oncology
DX: K92.2 Gastrointestinal hemorrhage, unspecified (principal); N18.9 Chronic kidney disease, unspecified
CPT/HCPCS: 36430; 86850; 86900; 86901; 86902; 86920; 86922; J7040; P9016; A4216

== ENCOUNTER 2019-08-11 11:40 | Outpatient (RCR) | payer OTHER, SELFPAY ==
[2019-07-08 12:40] VITALS: BMI 22.8
[2019-07-14 12:42] LABS: International Normalized Ratio 2.4; Prothrombin Time (Protime)PT. 26.5 SECONDS (11.7-14.9)
[2019-07-21 11:58] LABS: International Normalized Ratio 2.6; Prothrombin Time (Protime)PT. 27.5 SECONDS (11.7-14.9)
[2019-08-11 12:54] LABS: International Normalized Ratio 2.1; Prothrombin Time (Protime)PT. 23.6 SECONDS (11.7-14.9)
== END 2019-08-11 18:00 | disposition home or self-care (01) ==
LOC: LAB 11:40
PROVIDERS: Family Provider Internal Medicine; PCP Internal Medicine; Referring Provider Internal Medicine Cardiovascular Disease; Visit Provider Internal Medicine Cardiovascular Disease
DX: I48.3 Typical atrial flutter (principal); I48.0 Paroxysmal atrial fibrillation; Z79.01 Long term (current) use of 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
CPT/HCPCS: 36415; 85610

== ENCOUNTER 2019-09-04 10:13 | Outpatient (RCR) | payer OTHER, SELFPAY ==
[2019-08-11 08:32] VITALS: BMI 24.1
[2019-08-14 14:13] VITALS: BMI 24.1
[2019-08-18 11:40] LABS: International Normalized Ratio 1.6; Prothrombin Time (Protime)PT. 19.2 SECONDS (11.7-14.9)
[2019-08-22 11:44] LABS: International Normalized Ratio 2.1; Prothrombin Time (Protime)PT. 23.6 SECONDS (11.7-14.9)
[2019-08-28 12:41] LABS: International Normalized Ratio 1.8; Prothrombin Time (Protime)PT. 20.3 SECONDS (11.7-14.9)
[2019-09-04 12:01] LABS: International Normalized Ratio 2.5; Prothrombin Time (Protime)PT. 26.6 SECONDS (11.7-14.9)
== END 2019-09-04 18:00 | disposition home or self-care (01) ==
LOC: LAB 10:13
PROVIDERS: Family Provider Internal Medicine; PCP Internal Medicine; Referring Provider Internal Medicine Cardiovascular Disease; Visit Provider Internal Medicine Cardiovascular Disease
DX: I48.3 Typical atrial flutter (principal); I48.0 Paroxysmal atrial fibrillation; Z79.01 Long term (current) use of 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
CPT/HCPCS: 36415; 85610

== ENCOUNTER 2019-10-06 11:21 | Outpatient (RCR) | payer OTHER, SELFPAY ==
[2019-08-14 14:13] VITALS: BMI 24.1
[2019-09-16 10:57] LABS: International Normalized Ratio 2.2; Prothrombin Time (Protime)PT. 24.3 SECONDS (11.7-14.9)
[2019-09-29 13:33] LABS: Prothrombin Time (Protime)PT. 36.1 SECONDS (11.7-14.9)
[2019-09-29 13:46] LABS: International Normalized Ratio 3.6
[2019-10-06 13:58] LABS: Prothrombin Time (Protime)PT. 36.8 SECONDS (11.7-14.9)
[2019-10-06 14:28] LABS: International Normalized Ratio 3.7
== END 2019-10-06 18:00 | disposition home or self-care (01) ==
LOC: LAB 11:21
PROVIDERS: Family Provider Internal Medicine; PCP Internal Medicine; Referring Provider Internal Medicine Cardiovascular Disease; Visit Provider Internal Medicine Cardiovascular Disease
DX: I48.3 Typical atrial flutter (principal); I48.0 Paroxysmal atrial fibrillation; Z79.01 Long term (current) use of 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
CPT/HCPCS: 36415; 85610

== ENCOUNTER → 2019-10-10 07:49 | Outpatient (CLI) | payer OTHER, SELFPAY ==
[2019-08-14 14:13] VITALS: BMI 24.1
[2019-10-10] VITALS (8 sets, daily range): BP systolic 51–59; BP diastolic 28–39; PULSE 74–90; RESP 16; TEMP 36.1–36.8; O2SAT 95–97; BMI 23.2
== END ==
PROVIDERS: PCP Internal Medicine; Referring Provider Internal Medicine Hematology & Oncology; Visit Provider Internal Medicine Hematology & Oncology
DX: Z51.89 Encounter for other specified aftercare (principal); N18.9 Chronic kidney disease, unspecified; D63.1 Anemia in chronic kidney disease
CPT/HCPCS: 36430; 86850; 86900; 86901; 86902; 86920; 86922; J7040; P9016; A4216

== ENCOUNTER → 2019-11-07 07:56 | Outpatient (CLI) | payer OTHER, SELFPAY ==
[2019-10-10 08:24] VITALS: BMI 23.2
[2019-11-07] VITALS (10 sets, daily range): BP systolic 49–119; BP diastolic 26–65; PULSE 44–104; RESP 16; TEMP 36.3–36.8; O2SAT 93–96; BMI 22.8
[2019-11-07] MEDS: 0.9% NaCl Peripheral Flush Adult/Peds IV (08:10)
[2019-11-07] MEDS: Acetaminophen 325 MG Tablet 650 MG PO (08:10)
== END ==
PROVIDERS: PCP Internal Medicine; Referring Provider Internal Medicine Hematology & Oncology; Visit Provider Internal Medicine Hematology & Oncology
DX: Z51.89 Encounter for other specified aftercare (principal); N18.9 Chronic kidney disease, unspecified; K92.2 Gastrointestinal hemorrhage, unspecified
CPT/HCPCS: 36430; 86850; 86900; 86901; 86902; 86920; 86922; J7040; P9016; A4216

== ENCOUNTER 2019-11-10 11:36 | Outpatient (RCR) | payer OTHER, SELFPAY ==
[2019-10-10 08:24] VITALS: BMI 23.2
[2019-10-13 12:57] LABS: International Normalized Ratio 3.1; Prothrombin Time (Protime)PT. 31.9 SECONDS (11.7-14.9)
[2019-10-27 11:43] LABS: International Normalized Ratio 2.6; Prothrombin Time (Protime)PT. 28.2 SECONDS (11.7-14.9)
[2019-11-03 14:15] LABS: International Normalized Ratio 3.2
[2019-11-10 12:10] LABS: International Normalized Ratio 3.4; Prothrombin Time (Protime)PT. 34.2 SECONDS (11.7-14.9)
== END 2019-11-10 18:00 | disposition home or self-care (01) ==
LOC: LAB 11:36
PROVIDERS: Family Provider Internal Medicine; PCP Internal Medicine; Referring Provider Internal Medicine Cardiovascular Disease; Visit Provider Internal Medicine Cardiovascular Disease
DX: I48.3 Typical atrial flutter (principal); I48.0 Paroxysmal atrial fibrillation; Z79.01 Long term (current) use of 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
CPT/HCPCS: 36415; 85610

== ENCOUNTER → 2019-12-03 10:41 | Outpatient (CLI) | payer OTHER, SELFPAY ==
[2019-11-26 10:08] VITALS: BMI 22.8
[2019-12-03 11:32] VITALS: PULSE 100; PULSE 104; PULSE 83; PULSE 86; PULSE 87; PULSE 89; PULSE 91; O2SAT 100; O2SAT 88; O2SAT 89; O2SAT 92; O2SAT 93; O2SAT 96
--- NOTE | 2019-12-03 11:35 | CPS ---
Patient arrived for testing without oxygen, but states that she wears it at night and sometimes during the day. Patient started testing on RA but at the 3 min kaya dropped to a SpO2 of 88%. Patient continued walk test on 2L without any issues. Mukund HOOK
--- NOTE | 2019-12-04 08:05 | PCM.PSN.6M ---
PSN 6 Minute Walk Test - 6 Minute Walk Test 6 Minute Walk Test: 6 Minute Walk Test PSN:6-Minute Walk Test Start: 12/03/19 11:32 Freq: Status: Active Protocol: [id number] Document 12/03/19 11:32 AYAZ (Rec: 12/03/19 11:37 AYAZ [id number]) 6 Minute Walk Test Date Performed 12/03/19 Time Performed 11:00 Height 5 ft 2 in Weight: 125 lb Weight in Pounds 125.[address]: Martin Galvan Assistive device used: None Pre-test Oxygen Flow Rate (L/min) (L/min) 93 Oxygen Delivery Method Room Air Pulse Ox (%) 93 Pulse Rate (60-100 beats/min) 87 Dyspnea Aron Scale (0-10) 2 Exertion Aron Scale (6-20) 6 1st minute Oxygen Delivery Method Room Air Pulse Ox (%) 92 Pulse Rate (60-100 beats/min) 83 2nd minute Oxygen Delivery Method Room Air Pulse Ox (%) 89 Pulse Rate (60-100 beats/min) 100 3rd minute Oxygen Delivery Method Room Air Pulse Ox (%) 88 Pulse Rate (60-100 beats/min) 104 H Dyspnea Aron Scale (0-10) 3 Exertion Aron Scale (6-20) 13 4th minute Oxygen Flow Rate (L/min) (L/min) 2 Oxygen Delivery Method Nasal Cannula Pulse Ox (%) 96 Pulse Rate (60-100 beats/min) 83 5th minute Oxygen Flow Rate (L/min) (L/min) 2 Oxygen Delivery Method Nasal Cannula Pulse Ox (%) 92 Pulse Rate (60-100 beats/min) 86 6th minute Oxygen Flow Rate (L/min) (L/min) 2 Oxygen Delivery Method Nasal Cannula Pulse Ox (%) 92 Pulse Rate (60-100 beats/min) 91 Dyspnea Aron Scale (0-10) 3 Exertion Aron Scale (6-20) 13 Post-test Oxygen Flow Rate (L/min) (L/min) 2 Oxygen Delivery Method Nasal Cannula Pulse Ox (%) 100 Pulse Rate (60-100 beats/min) 89 Full Laps Walked 11 Partial Lap, Number of Tiles Walked 30 Total Distance Walked (ft) 679 12/03/19 11:35 Cardiopulmonary Services by Dolores Flores Patient arrived for testing without oxygen, but states that she wears it at night and sometimes during the day. Patient started testing on RA but at the 3 min kaya dropped to a SpO2 of 88%. Patient continued walk test on 2L without any issues. Mukund HOOK Initialized on 12/03/19 11:35 - END OF NOTE - Interpretation Interpretation: The patient ambulated 679 feet over the course of 6 minutes beginning on room air without assistive devices or breaks. Pretesting oxygen saturation was noted to be 93% on room air. With ambulation, the kathy oxygen saturation was 88%. 2 L/min of supplemental oxygen was applied, and the patient was able to complete the remainder of the test while maintaining appropriate oxygen saturations. - Recommendations Recommendations: 2 L/min of supplemental oxygen should be utilized with exertion.
== END ==
PROVIDERS: PCP Internal Medicine; Referring Provider Internal Medicine Critical Care Medicine; Visit Provider Internal Medicine Critical Care Medicine
DX: J44.9 Chronic obstructive pulmonary disease, unspecified (principal)
CPT/HCPCS: 94618

== ENCOUNTER 2019-12-08 09:52 | Outpatient (RCR) | payer OTHER, SELFPAY ==
[2019-11-07 08:09] VITALS: BMI 22.8
[2019-11-24 11:22] LABS: International Normalized Ratio 2.1; Prothrombin Time (Protime)PT. 23.3 SECONDS (11.7-14.9)
[2019-12-08 11:02] LABS: International Normalized Ratio 2.6; Prothrombin Time (Protime)PT. 27.8 SECONDS (11.7-14.9)
== END 2019-12-11 18:00 | disposition home or self-care (01) ==
LOC: LAB 09:52
PROVIDERS: Family Provider Internal Medicine; PCP Internal Medicine; Referring Provider Internal Medicine Cardiovascular Disease; Visit Provider Internal Medicine Cardiovascular Disease
DX: I48.3 Typical atrial flutter (principal); Z95.2 Presence of prosthetic heart valve; Z79.01 Long term (current) use of 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
CPT/HCPCS: 36415; 85610

== ENCOUNTER → 2019-12-12 10:02 | Outpatient (CLI) | payer OTHER, SELFPAY ==
[2019-11-26 10:08] VITALS: BMI 22.8
[2019-12-12] MEDS: 0.9% NaCl Peripheral Flush Adult/Peds IV ×3 (10:25→11:13)
[2019-12-12 10:26] VITALS: BP 64/45; PULSE 46; RESP 20; TEMP 36.7; BMI 22.6
[2019-12-12 10:56] VITALS: BP 70/44; PULSE 105; RESP 16; TEMP 36.2
[2019-12-12 11:56] VITALS: BP 84/50; PULSE 78; RESP 16; TEMP 36.6
[2019-12-12 12:53] VITALS: BP 70/49; PULSE 76; RESP 16; TEMP 36.2; O2SAT 96
== END ==
PROVIDERS: PCP Internal Medicine; Referring Provider Internal Medicine Hematology & Oncology; Visit Provider Internal Medicine Hematology & Oncology
DX: Z51.89 Encounter for other specified aftercare (principal); D64.9 Anemia, unspecified; N18.9 Chronic kidney disease, unspecified; K92.2 Gastrointestinal hemorrhage, unspecified
CPT/HCPCS: 36430; 86850; 86900; 86901; 86902; 86920; 86922; J7040; P9016; A4216

== ENCOUNTER → 2019-12-19 07:56 | Outpatient (CLI) | payer OTHER, SELFPAY ==
[2019-11-26 10:08] VITALS: BMI 22.8
[2019-12-12 10:26] VITALS: BMI 22.6
--- NOTE | 2019-12-20 07:07 | PFT ---
INTRODUCTION: The patient is a 79-year-old female that presents for pulmonary function studies secondary to a diagnosis of COPD. Respiratory therapy reports good patient effort. Bronchodilators were used during testing. INTERPRETATION: Forced expiration spirometry demonstrates no evidence of a large airways obstructive ventilatory defect. There was a significant response to aerosolized bronchodilators, based upon change noted in both FEV1 and FVC. Spirograms are of fair quality and plateau gradually indicating slow emptying of the lungs. There are decreased expiratory flow rates and high lung volumes consistent with small airways obstruction. Body plethysmography was performed and reveals a decreased TLC to 3.22 L, 74% of predicted, indicative of a mild restrictive ventilatory impairment. The remainder of the lung volumes are symmetrically reduced. Diffusing capacity by single breath CO is reduced at 36% of predicted. When compared to pulmonary function studies from 2015, there has been a 14% reduction in FEV1. IMPRESSION: Subtle findings of small airways disease with significant bronchodilator response. There is evidence of a mild restrictive ventilatory impairment with disproportionate reduction in diffusing capacity. There has been a 14% reduction in FEV1 since 2015.
== END ==
PROVIDERS: PCP Internal Medicine; Referring Provider Internal Medicine Critical Care Medicine; Visit Provider Internal Medicine Critical Care Medicine
DX: J44.9 Chronic obstructive pulmonary disease, unspecified (principal)
CPT/HCPCS: 94060; 94726; 94729

== ENCOUNTER 2019-12-29 09:23 | Outpatient (RCR) | payer OTHER, SELFPAY ==
[2019-11-26 10:08] VITALS: BMI 22.8
[2019-12-12 10:26] VITALS: BMI 22.6
[2019-12-29 10:13] LABS: International Normalized Ratio 2.7; Prothrombin Time (Protime)PT. 28.3 SECONDS (11.7-14.9)
== END 2019-12-29 18:00 | disposition home or self-care (01) ==
LOC: LAB 09:23
PROVIDERS: Family Provider Internal Medicine; PCP Internal Medicine; Referring Provider Internal Medicine Cardiovascular Disease; Visit Provider Internal Medicine Cardiovascular Disease
DX: Z95.2 Presence of prosthetic heart valve (principal); Z79.01 Long term (current) use of 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
CPT/HCPCS: 36415; 85610

== ENCOUNTER → 2020-01-09 09:09 | Outpatient (CLI) | payer OTHER, SELFPAY ==
[2019-12-12 10:26] VITALS: BMI 22.6
[2020-01-09] VITALS (7 sets, daily range): BP systolic 52–112; BP diastolic 34–50; PULSE 77–88; RESP 16–32; TEMP 35.6–36.8; O2SAT 93–95; BMI 22.8
[2020-01-09] MEDS: 0.9% NaCl Peripheral Flush Adult/Peds IV (09:31)
== END ==
PROVIDERS: PCP Internal Medicine; Referring Provider Internal Medicine Hematology & Oncology; Visit Provider Internal Medicine Hematology & Oncology
DX: Z51.89 Encounter for other specified aftercare (principal); N18.9 Chronic kidney disease, unspecified; K92.2 Gastrointestinal hemorrhage, unspecified
CPT/HCPCS: 36430; 86850; 86900; 86901; 86902; 86920; 86922; J7040; P9016; A4216

== ENCOUNTER 2020-01-24 10:00 | Inpatient (IN) | payer OTHER, MEDICARE, SELFPAY ==
[2020-01-09 09:16] VITALS: BMI 22.8
[2020-01-24] VITALS (35 sets, daily range): BP systolic 55–105; BP diastolic 27–83; PULSE 70–78; RESP 15–33; TEMP 36.4–37.3; O2SAT 92–100; BMI 22.8; BMI 23.3
--- NOTE | 2020-01-24 10:40 | ED.DCSUM_ITS ---
- ER Visit Summary Date of Service: 01/24/20 Chief Complaint: Generalized weakness, fatigue and I think I am anemic again History of Present Illness: The patient is a 79 F history of prior GI bleeds with an unspecified source, on Coumadin, chronic anemia, COPD and renal insufficiency. Patient is on Coumadin secondary to a prosthetic heart valve. She denies any chest pain, fever or dysuria. She denies any abdominal pain. States she has had chronic GI bleeds did not have a specific source. She has bl ack stool a lot of the time and is currently having black stool. She has been transfused multiple times in the past. Physical Examination: Well-appearing older female who looks very pale. Her initial blood pressure is 55/42 was rechecked at 88/50 currently. She is actually tolerating that well sitting upright in bed. Says her blood pressure runs low a lot of the time. H EENT exam unremarkable except for very pale. Neck nontender. Lungs clear to auscultation. Heart regular rhythm. Abdomen soft nontender normal bowel sounds no peritoneal signs. She is moving all 4 extremities. They are pale also. No edema. Neurologically she is awake and alert with no focal motor deficits. Test Results: BC shows normal white count of 4. Hemoglobin is 6.3 most recent hemoglobin was 9 multiple months ago. Electrolytes unremarkable other than a creatinine of 1.73 previously was 1.58. Patient also has low platelets at 96,000. She is on Coumadin her INR is supratherapeutic at 8.3. Emergency Department Course and Treatment: Patient with overall generalized weakness and pallor consistent with anemia from a chronic unspecified GI bleed. We will get screening labs, PT/INR due to she is on Coumadin and type and cross her. She most likely will need to be admitted and transfused. Treatment Plan: Repeat exam patient is doing well at 1138. She had I discussed all of her test results. I have also already spoken to the hospitalist who wanted a surgical referral I spoke to Dr. Aileen Feng. Patient will be treated with a blood transfusion x2 units. Given 2 units of FFP. I will let the hospitalist determine if they want to give her vitamin K due to her prosthetic valve history. Disposition: Admission Impression: Generalized weakness and fatigue Acute hypotension Acute on chronic anemia of GI bleed of uncertain etiology Anticoagulated on Coumadin History of pacemaker and prosthetic heart valve Blood transfusion x2 units Fresh frozen plasma transfusion x2 units Critical care time 30 minutes This note was generated with [employer] dictation software. It may contain incorrect words, spelling, and punctuation that were not noted in review of the chart prior to signing ED Disposition - Plan for ED Patient: Referrals: Kodak Muñoz MD [Primary Care Provider] -
[2020-01-24 10:57] LABS: Hematocrit 22.5 % (37-47); Hemoglobin 6.3 g/dL (12.0-15.0); Mean Corpuscular Hgb 28.6 pg (27.0-32.0); Mean Corpuscular Volume 102.3 fL (81-99); Mean Platelet Vol. 11.8 fl (6.2-12.0); POSITIVE COUNT YES; Platelet Count 96 K/mm3 (150-450); RBC Distribution Width CV 16.4 % (11.6-14.6); RBC Distribution Width SD 59.7 fl (35.1-43.9); White Blood Count 4.5 K/mm3 (4.4-11.0)
[2020-01-24 11:03] LABS: Scan Indicated on CBC? Y/N NO
[2020-01-24 11:09] LABS: Anion Gap 8 (5-15); BUN 32 mg/dL (7-18); BUN/Creat Ratio 18.5 RATIO (10-20); Calcium,Total 8.1 mg/dL (8.5-10.1); Chloride 109 mmol/L (98-107); Creatinine, Serum 1.73 mg/dL (0.55-1.02); EST Glomerular Filtration Rate 30 mL/min (>60); Est Glom Filt Rate - Afr Amer 37 mL/min (>60); Estimated Creatinine Clearance 21.54 ml/min; Glucose 172 mg/dL (74-106); Potassium 4.7 mmol/L (3.5-5.1); Sodium Level 139 mmol/L (136-145)
[2020-01-24 11:22] LABS: International Normalized Ratio 8.3
--- NOTE | 2020-01-24 11:27 | ED.RN ---
LAB CALLED PT INR 8.3 DR MARTINEZ AWARE
--- NOTE | 2020-01-24 11:42 | NURSING ---
HOSPITALIST CALLED BACK, IN WITH A STEMI HOSPITALIST PAGED
--- NOTE | 2020-01-24 12:01 | NURSING ---
ICU PAINTSIL ANEMIA, GI BLEED, SUPRATHERAPEUTIC ANTICOAGULATION
--- NOTE | 2020-01-24 12:22 | NURSING ---
ICU 5
--- NOTE | 2020-01-24 13:01 | HP.PCM_ITS ---
Problem List (1) Supratherapeutic INR Status: Acute (2) GERD (gastroesophageal reflux disease) Status: Chronic Qualifiers: Esophagitis presence: esophagitis presence not specified Qualified Code(s): K21.9 - Gastro-esophageal reflux disease without esophagitis (3) Type 2 diabetes mellitus Status: Chronic Qualifiers: Diabetes mellitus [facility] insulin use: with [facility] use Diabetes mellitus complication status: with other specified complication Qualified Code(s): E11.69 - Type 2 diabetes mellitus with other specified complication; Z79.4 - longterm (current) use of insulin (4) GI bleed Status: Resolved Qualifiers: GI bleed type/associated pathology: unspecified gastrointestinal hemorrhage type Qualified Code(s): K92.2 - Gastrointestinal hemorrhage, unspecified (5) Chronic atrial fibrillation Status: Chronic (6) Hypotension Status: Chronic Qualifiers: Hypotension type: unspecified hypotension type Qualified Code(s): I95.9 - Hypotension, unspecified (7) HLD (hyperlipidemia) Status: Chronic Qualifiers: Hyperlipidemia type: unspecified Qualified Code(s): E78.5 - Hyperlipidemia, unspecified History of Present Illness Date of Admission: 01/24/20 Chief Complaint: Low hemoglobin, GI bleed The patient is a 79 year old F with past medical history of mechanical aortic va lve replacement, chronic atrial fibrillation, history of GI bleed of unknown etiology who comes in with progressive generalized weakness and fatigue. Patient denies any chest pain applications. The last time she got blood transfusion was on 01/09/20 where she got 2 units of blood. She usually follows up with Dr. Ellis. Patient states that he is tired, does not want aggressive work-up for this. Labs in the ED showed temperature 98.4 F, heart rate 70, blood pressure 55/42, respiratory rate was 18, SPO2 100% on room air. BC count is 4.5, hemoglobin is 6.3, Hemoglobin is 9, platelet count is 96, INR is 8.3, BMP was remarkable for BUN of 32, creatinine 1.73, baseline creatinine is 1.4?1.5. Past Medical History Past Medical History (Chronic Problems): Chronic Problems (Last Reviewed 11/26/19 @ 10:06 by Dolores Moeller) GERD (gastroesophageal reflux disease) (Chronic) Pericardial effusion (Chronic) Pleural effusion (Chronic) Ascites (Chronic) Type 2 diabetes mellitus (Chronic) Thrombocytopenia (Chronic) COPD (chronic obstructive pulmonary disease) (Chronic) Carotid bruit (Chronic) Nonrheumatic mitral (valve) insufficiency (Chronic) Tachycardia-bradycardia syndrome (Chronic) Chronic atrial fibrillation (Chronic) Typical atrial flutter (Chronic) Non-rheumatic tricuspid valve insufficiency (Chronic) Secondary pulmonary hypertension (Chronic) Hypotension (Chronic) HLD (hyperlipidemia) (Chronic) Nicotine dependence (Chronic) GI bleeding (Chronic) longterm current use of anticoagulant (Chronic) Medical History: Medical History (Last Reviewed 11/26/19 @ 10:06 by Dolores Moeller) GERD (gastroesophageal reflux disease) (Chronic) K21.9 Pericardial effusion (Chronic) I31.3 Pleural effusion (Chronic) J90 Ascites (Chronic) R18.8 Type 2 diabetes mellitus (Chronic) E11.9 GI bleed (Resolved) K92.2 Thrombocytopenia (Chronic) D69.6 COPD (chronic obstructive pulmonary disease) (Chronic) J44.9 Carotid bruit (Chronic) R09.89 Nonrheumatic mitral (valve) insufficiency (Chronic) I34.0 Tachycardia-bradycardia syndrome (Chronic) I49.5 Chronic atrial fibrillation (Chronic) I48.2 Typical atrial flutter (Chronic) I48.3 Non-rheumatic tricuspid valve insufficiency (Chronic) I36.1 Secondary pulmonary hypertension (Chronic) Hypotension (Chronic) I95.9 HLD (hyperlipidemia) (Chronic) E78.5 Nicotine dependence (Chronic) F17.200 GI bleeding (Chronic) K92.2 longterm current use of anticoagulant (Chronic) Z79.01 Non-rheumatic aortic stenosis (Inactive) I35.0 PVC's (premature ventricular contractions) (Inactive) I49.3 Pleural effusion, not elsewhere classified (Inactive) J90 Allergies amiodarone Adverse Reaction (Verified 01/24/20 10:04) vomiting, poor balance, dizziness digoxin Adverse Reaction (Verified 01/24/20 10:04) nausea, dry heaves lorazepam [From Ativan] Adverse Reaction (Verified 01/24/20 10:04) Unknown meloxicam [From Mobic] Adverse Reaction (Verified 01/24/20 10:04) Unknown nortriptyline HCl [From Pamelor] Adverse Reaction (Verified 01/24/20 10:04) Unknown zolpidem tartrate [From Ambien] Adverse Reaction (Verified 01/24/20 10:04) Unknown Home Medications: Ambulatory Orders Medication Instructions Recorded Atorvastatin Calcium [Lipitor] 20 mg PO QHS 05/22/13 Levothyroxine [Synthroid] 50 mcg PO DAILY 04/01/15 Ferrous Sulfate 487.5 mg PO QHS 04/02/15 Hydrocodone/Acetaminophen 0.5 tab PO Q8H PRN PRN 04/02/15 [Hydrocodone-Acetamin 5-325 mg] Insulin Lispro [Humalog KwikPen] 0 unit SQ BIDCM 04/02/15 Folic Acid 1 mg PO DAILY@0800 04/30/15 Insulin Glargine [Lantus SoloStar 35 - 45 units SC QHS 04/30/15 Pen] Cyanocobalamin (Vitamin B-12) 2,500 mcg PO DAILY 06/10/16 [Vitamin B12] Magnesium 250 mg PO DAILY 05/24/17 potassium chloride 20 mEq 20 meq PO DAILY #90 tab 01/24/18 tablet,extended release(part/cryst) Cholecalciferol (Vitamin D3) 1,000 unit PO DAILY 04/07/19 [Vitamin D3] Furosemide [Lasix] 20 mg PO QODAY 04/07/19 Trazodone HCl 150 mg PO QHS 04/07/19 Venlafaxine HCl 37.5 mg PO BID 04/07/19 Pantoprazole Sodium [Protonix] 40 mg PO DAILY #30 tab 04/09/19 warfarin 2 mg tablet 2 mg PO SUFRSA #30 tab 06/12/19 metoprolol succinate 25 mg 25 mg PO DAILY #90 tab 08/14/19 tablet,extended release 24 hr warfarin 1 mg tablet 1.5 mg PO MOTUWETH #90 tab 11/13/19 albuterol sulfate 90 mcg/actuation 2 puff INHALATION Q6H PRN PRN #18 g 11/26/19 aerosol inhaler Surgical History: Surgical History (Last Reviewed 11/26/19 @ 10:08 by Dolores Moeller) History of incision of pericardium (Resolved) Z98.890 for pericardial effusion History of cardioversion (Resolved) Onset Date: 10/2015 Z98.890 History of left heart catheterization (Resolved) Onset Date: 07/17/08 Z98.890 History of mitral valve replacement with mechanical valve (Resolved) Onset Date: 07/22/08 Z95.2 #[address] [employer] mechanical valve Presence of permanent cardiac pacemaker (Resolved) Onset Date: 08/30/18 Z95.0 Implant: 07/31/2008; PPM Generator Change - Juanjose Finley MR 08/30/2018 Surgical History: - - Mitral valve replacement with mechanical valve. 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 Smoking Status: Current every day smoker - *Family History Paternal Family History: Family History (Last Reviewed 11/26/19 @ 10:08 by Dolores Moeller) Mother Cancer History Items: No pertinent history Maternal Family History: Family History (Last Reviewed 11/26/19 @ 10:08 by Dolores Moeller) Mother Cancer History Items: No pertinent history Review of Systems Constitutional: Denies: Chills, Fever, Weight Change HEENT: Denies: Head Aches, Sinus Congestion, Sinus Drainage Cardiovascular: Denies: Chest Pain, Palpitations Respiratory: Denies: Cough, Shortness of breath at rest, Sputum production Gastrointestinal: Denies: Abdominal Pain, Nausea, Vomiting Genitourinary: Denies: Dysuria Musculoskeletal: Denies: Joint Pain, Joint Tenderness Skin: Denies: Rash, Wounds Neurological: Denies: Numbness, Tingling, Focal weakness Psychiatric: Denies: Anxiety, Depression, Homicidal Ideations, Suicidal Ideations Hematologic/ Lymphatic: Denies: Easy Bruising, Easy Bleeding VTE Information - Inpt Only VTE Present on Admission: No VTE Pharm Prophylaxis ordered?: Yes Patient Problems: Active and Suspected Problems (Last Reviewed 11/26/19 @ 10:06 by Dolores Moeller) Supratherapeutic INR (Acute) - Physical Exam Vitals/I&O's: Vital Signs Temp Pulse Resp BP Pulse Ox 98.4 F 78 26 H 103/83 H 96 01/24/20 10:01 01/24/20 12:00 01/24/20 12:00 01/24/20 12:01/24/20 12:00 Oxygen Delivery Method Room Air Weight: 56.699 kg Body Mass Index (BMI) 22.8 Finger Stick Blood Glucose 194 Intake and Output for Last 24 Hours 01/22/20 01/23/20 01/24/20 23:59 23:59 23:59 Intake Total 0 / 0 Balance 0 / 0 General: Alert, Oriented x3, Cooperative, No apparent distress HEENT: Atraumatic, PERRLA, EOMI, Normocephalic Neck: Supple, No JVD, Negative Carotid Bruits Lungs: Clear to auscultation, Normal air movement Cardiovascular: Regular rate, No murmurs Abdomen: Bowel Sounds Present, Soft, Non Tender Extremities: No edema, Capillary Refill Less than 3 Seconds Skin: No rashes, No breakdown Musculoskeletal: No Tenderness to Palpation of Joints or Extremities Neurological: Cranial nerves II-XII grossly intact Psych/Mental Status: Normal Affect, Appropriate Laboratory Results 01/24/20 10:45: WBC 4.5, RBC 2.20 L, Hgb 6.3 L, Hct 22.5 L, MCV 102.3 H, MCH 28.6, MCHC 28.0 L, RDW Std Deviation 59.7 H, RDW Coeff of Uriel 16.4 H, Plt Count 96 L, MPV 11.8 01/24/20 10:45: Sodium 139, Potassium 4.7, Chloride 109 H, Carbon Dioxide 22.0, Anion Gap 8, BUN 32 H, Creatinine 1.73 H, Estim Creat Clear Calc 21.54, Est GFR (MDRD) Af Amer 37 L, Est GFR (MDRD) Non-Af 30 L, BUN/Creatinine Ratio 18.5, Glucose 172 H, Calcium 8.1 L 01/24/20 10:45: Blood Type A POSITIVE, Antibody Screen NEGATIVE, Crossmatch See Detail 01/24/20 10:45: PT 70.0 H, INR 8.3 H* Assessment/Plan All Active Problems (Last Reviewed 11/26/19 @ 10:06 by Dolores Moeller) Supratherapeutic INR (Acute) History of incision of pericardium (Resolved) GI bleed (Resolved) History of cardioversion (Resolved 10/2015) History of left heart catheterization (Resolved 07/17/08) History of mitral valve replacement with mechanical valve (Resolved 07/22/08) Presence of permanent cardiac pacemaker (Resolved 08/30/18) Anemia (Acute) 79 year old F with past medical history of mechanical aortic valve replacement, chronic atrial fibrillation, history of GI bleed of unknown etiology who comes in with progressive generalized weakness and fatigue. 1. Acute severe symptomatic anemia, admitting hemoglobin of 6.3, History of GI bleed with unclear etiology/supratherapeutic INR Transfuse 3 units of packed RBC H&H Q6hrly 2. Supratherapeutic INR, INR is 8.3 Will transfuse FFP's, repeat INR Hold Coumadin for now 3. Acute on chronic GI bleed of unclear clear etiology Status post extensive work-up 3 years ago Patient defers any aggressive work-up in this admission -Dr Feng was consulted from the ED, States she is tired. She is aware that we are unable to do advanced treatments for GI bleed beyond EGD and colonoscopy such as capsule endoscopy, IR intervention for acute GI bleed. He stated that if she has acute bleeding in the hospital, she wants us to pack her up and send her home. Will discontinue General surgery consult Continue on IV PPI 4. Hypotension secondary to #3 We will continue to monitor status post blood transfusions 5. Chronic atrial fibrillation, rate controlled, continue home medications 6. Type II DM, on insulin, continue home medications Accu-Cheks with insulin sliding scale 7. DVT prophylaxis with SCDs -INR supratherapeutic 8. Code Status: Full code Discussed in detail with the patient explaining the various types of CODE STATUS-full code, DNR CCA, DNR CC. She insisted on being full code. She knows that should she bleed we are unable to assist her beyond EGD and colonoscopy. She however wants to have resuscitation done including chest compression. I asked her to consider appointing a health care power of deputy prosecuting attorney. Time spent discussing CODE STATUS 25 minutes Inpatient E&M: [id number] Init Hosp L3
[2020-01-24 14:38] LABS: AST(SGOT) 115 U/L (15-37); Alanine Aminotransfer ALT/SGPT 53 U/L (13-56); Alkaline Phosphatase 72 U/L (45-117); Bilirubin, Direct 0.26 mg/dL (0.00-0.30); Globulin 2.9 g/dL (2.2-4.2); Protein, Total 5.9 g/dL (6.4-8.2)
--- NOTE | 2020-01-24 14:54 | CASEMGMT ---
RN SILVIO Face to Face with patient for initial transition planning/care coordination assessment. RN CM introduced self and role at [facility]. Patient lying in bed, alert and oriented. Patient willing to participate in assessment and is able to answer all questions appropriately. Care providers, pharmacy, and demographics verified. Patient wishes to discharge home, denies need for home health at this time. Patient states she has no further needs or concerns at this time. CM to follow for discharge planning needs that may arise. PCP: Toni Specialists: William, oncologist Preferred Pharmacy: [facility] Insurance: [facility] Prescription Benefit: yes Living Will/HPOA: none LNOK: , daughter Living Arrangements: Patient lives with in 2 story home with bed and bath on first floor, 3 steps with railing to enter the home. Patient states she is independent at home. Daughter is nurse and lives across the street. Transportation: self/ DME/HHC: Patient states she has shower chair, walker, grab bars, nebulizer, and oxygen at 2lpm HS through [facility]. Disposition Plan: Patient to discharge home with family support and follow-up plans in place. Krystin BLOOD, RN, CM
--- NOTE | 2020-01-24 16:33 | NURSING ---
pt refusing blood glucose checks at this time.
[2020-01-24 18:06] LABS: International Normalized Ratio 3.1
--- NOTE | 2020-01-24 20:26 | NURSING ---
Pt wanting to leave [facility]. Does not want any further blood tonight, pt did receive 2 units of prbc's and 2 units of ffp. Pt is willing to have h/h drawn prior to leaving [facility]. Hospitalist aware that pt is leaving [facility]. Pt aware of risks of leaving [facility] and instructed that if symptoms or problems arise that she needs to seek medical assistance. [place] papers signed by pt and placed in chart.
[2020-01-24] MEDS: 0.9% Saline Lock 10 ML Syringe IV (20:50)
[2020-01-24 21:15] LABS: Hematocrit 30.9 % (37-47); Hemoglobin 9.2 g/dL (12.0-15.0)
--- NOTE | 2020-01-24 21:29 | NURSING ---
Pt leaving [facility] at this time. Pt assisted out to meet family/ride by Ariadna CAMPOS.
--- NOTE | 2020-01-25 07:17 | PCM.DC.SUM ---
Discharge Date and Diagnosis Date of Admission: 01/24/20 Date of Discharge: 01/24/20 - Primary Discharge Diagnosis Acute Problems: Acute severe symptomatic anemia Supratherapeutic INR Acute on chronic GI bleed Hypotension - Secondary Discharge Diagnosis Chronic Problems: Chronic Problems (Last Reviewed 11/26/19 @ 10:06 by Dolores Moeller) GERD (gastroesophageal reflux disease) (Chronic) Pericardial effusion (Chronic) Pleural effusion (Chronic) Ascites (Chronic) Type 2 diabetes mellitus (Chronic) Thrombocytopenia (Chronic) COPD (chronic obstructive pulmonary disease) (Chronic) Carotid bruit (Chronic) Nonrheumatic mitral (valve) insufficiency (Chronic) Tachycardia-bradycardia syndrome (Chronic) Chronic atrial fibrillation (Chronic) Typical atrial flutter (Chronic) Non-rheumatic tricuspid valve insufficiency (Chronic) Secondary pulmonary hypertension (Chronic) Hypotension (Chronic) HLD (hyperlipidemia) (Chronic) Nicotine dependence (Chronic) GI bleeding (Chronic) assisted current use of anticoagulant (Chronic) Hospital Course and Treatment Operations: None Procedures: None Summary of Care Provided: 79 year old F with past medical history of mechanical aortic valve replacement, chronic atrial fibrillation, history of GI bleed of unknown etiology who comes in with progressive generalized weakness and fatigue. Was found to have hemoglobin of 6.3. Her INR was 8.3. Her baseline hemoglobin is 9.0. Patient did not want any aggressive work-up. She received 2 units of packed RBCs as well as 2 units of FFP. Repeat hemoglobin was 9.2. INR was 3.1. Patient was managed in the ICU. She left AGAINST MEDICAL ADVICE after receiving her transfusions. Subjective: See H & P Objective: See H & P - Physical Exam Vitals/I&O's: Vital Signs Temp Pulse Resp BP Pulse Ox 98.4 F 72 28 H 105/55 L 92 01/24/20 21:00 01/24/20 21:00 01/24/20 21:00 01/24/20 21:00 01/24/20 21:00 Oxygen Flow Rate (L/min) 2 Oxygen Delivery Method Room Air Weight: 57.8 kg Body Mass Index (BMI) 23.3 Finger Stick Blood Glucose 194 Intake and Output for Last 24 Hours 01/23/20 01/24/20 01/25/20 23:59 23:59 23:59 Intake Total 1995. Balance Laboratory Results 01/24/20 10:45: WBC 4.5, RBC 2.20 L, Hgb 6.3 L, Hct 22.5 L, MCV 102.3 H, MCH 28.6, MCHC 28.0 L, RDW Std Deviation 59.7 H, RDW Coeff of Uriel 16.4 H, Plt Count 96 L, MPV 11.8 01/24/20 10:45: Sodium 139, Potassium 4.7, Chloride 109 H, Carbon Dioxide 22.0, Anion Gap 8, BUN 32 H, Creatinine 1.73 H, Estim Creat Clear Calc 21.54, Est GFR (MDRD) Af Amer 37 L, Est GFR (MDRD) Non-Af 30 L, BUN/Creatinine Ratio 18.5, Glucose 172 H, Calcium 8.1 L 01/24/20 10:45: Blood Type A POSITIVE, Antibody Screen NEGATIVE, Crossmatch See Detail 01/24/20 10:45: PT 70.0 H, INR 8.3 H* 01/24/20 10:45: Total Bilirubin 0.60, Direct Bilirubin 0.26, AST 115 H, ALT 53, Alkaline Phosphatase 72, Total Protein 5.9 L, Albumin 3.0 L, Globulin 2.9 01/24/20 10:45: Crossmatch See Detail 01/24/20 17:35: PT 32.0 H, INR 3.1 01/24/20 20:55: Hgb 9.2 L, Hct 30.9 L Discharge Diet: Low fat/ Low Cholesterol, 2000 mg Sodium Diet Discharge Activity: Return to Normal Activity Home Medications: Medications to take at Discharge Atorvastatin Calcium [Lipitor] 20 mg PO QHS 05/22/13 Levothyroxine [Synthroid] 50 mcg PO DAILY 04/01/15 Ferrous Sulfate 487.5 mg PO QHS 04/02/15 Folic Acid 1 mg PO DAILY@0800 04/30/15 Cyanocobalamin (Vitamin B-12) [Vitamin B12] 2,500 mcg PO DAILY 06/10/16 Magnesium 250 mg PO DAILY 05/24/17 Cholecalciferol (Vitamin D3) [Vitamin D3] 1,000 unit PO DAILY 04/07/19 Furosemide [Lasix] 20 mg PO QODAY 04/07/19 Venlafaxine HCl 37.5 mg PO BID 08/26/19 albuterol sulfate 90 mcg/actuation aerosol inhaler 2 puff INHALATION Q6H PRN PRN #18 g 11/26/19 Diazepam [Valium] 5 mg PO DAILY PRN 01/24/20 Metoprolol Succinate [Toprol Xl] 50 mg PO DAILY 01/24/20 Pantoprazole Sodium [Protonix] 40 mg PO DAILY 01/24/20 Potassium Chloride [K-Dur] 20 meq PO DAILY 01/24/20 Warfarin Sodium 1 mg PO SUFRSA 01/24/20 Warfarin Sodium [Coumadin] 1.5 mg PO MOTUWETH 01/24/20 Primary Care Physician: Kodak Muñoz MD [Primary Care Provider] - Please follow up with your Primary Care Physician in: within 1-2 weeks Disposition: Against Medical Advice Minutes spent on discharge:: 40 Patient Condition:: Stable Medical Necessity - Tobacco Use Smoking Status: Current every day smoker Meaningful Use Info Meaningful Use Diagnoses (Choose all that apply): None applicable Inpatient E&M: [id number] [facility] Hosp
== END 2020-01-24 21:32 | disposition left against medical advice (07) | DRG 378 ==
LOC: ED 11:09 → ICU 13:42
PROVIDERS: Admitting Provider Internal Medicine; Emergency Provider Emergency Medicine; PCP Internal Medicine; Visit Provider Internal Medicine
DX: K92.2 Gastrointestinal hemorrhage, unspecified (principal); I48.20 Chronic atrial fibrillation, unspecified; I95.9 Hypotension, unspecified; R79.1 Abnormal coagulation profile; R53.1 Weakness; D50.0 Iron deficiency anemia secondary to blood loss (chronic); Z79.01 Long term (current) use of 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; Z95.2 Presence of prosthetic heart valve; Z95.0 Presence of cardiac pacemaker; K21.9 Gastro-esophageal reflux disease without esophagitis; E11.69 Type 2 diabetes mellitus with other specified complication; Z79.4 Long term (current) use of insulin; E78.5 Hyperlipidemia, unspecified; Z66 Do not resuscitate; Z79.890 Hormone replacement therapy; F17.200 Nicotine dependence, unspecified, uncomplicated; I27.29 Other secondary pulmonary hypertension; I34.0 Nonrheumatic mitral (valve) insufficiency; I36.1 Nonrheumatic tricuspid (valve) insufficiency; J44.9 Chronic obstructive pulmonary disease, unspecified; D69.6 Thrombocytopenia, unspecified
CPT/HCPCS: 80048; 80076; 85014; 85018; 85027; 85610; 86850; 86900; 86901; 86902; 86920; 86922; 99251; 99285; 99406; J7040; P9016; P9017; A4216; G0463

== ENCOUNTER → 2020-01-30 08:22 | Outpatient (CLI) | payer OTHER, SELFPAY ==
[2020-01-24 13:45] VITALS: BMI 23.3
[2020-01-30 08:38] VITALS: BP 77/33; PULSE 70; RESP 16; TEMP 36.6; O2SAT 95; BMI 22.8
[2020-01-30] MEDS: 0.9% NaCl Peripheral Flush Adult/Peds IV (08:41)
[2020-01-30] MEDS: Acetaminophen 325 MG Tablet 650 MG PO (08:54)
[2020-01-30 09:17] VITALS: BP 82/48; PULSE 98; RESP 16; TEMP 36.7; O2SAT 100
[2020-01-30 10:17] VITALS: BP 99/50; PULSE 87; RESP 16; TEMP 36.3; O2SAT 97
[2020-01-30 10:59] VITALS: BP 78/51; PULSE 90; RESP 18; TEMP 36.5
[2020-01-30 11:35] VITALS: BP 66/43; BP 95/47; PULSE 85; PULSE 88; RESP 16; TEMP 36.2; TEMP 36.3; O2SAT 93
[2020-01-30 13:20] VITALS: BP 87/55; PULSE 92; RESP 16; TEMP 36.2; O2SAT 96
== END ==
PROVIDERS: PCP Internal Medicine; Referring Provider Internal Medicine Hematology & Oncology; Visit Provider Internal Medicine Hematology & Oncology
DX: Z51.89 Encounter for other specified aftercare (principal); N18.9 Chronic kidney disease, unspecified; K92.2 Gastrointestinal hemorrhage, unspecified
CPT/HCPCS: 36430; 86850; 86900; 86901; 86902; 86920; 86922; J7040; P9016; P9040; A4216

== ENCOUNTER 2020-02-04 11:06 | Outpatient (RCR) | payer OTHER, SELFPAY ==
[2020-01-09 09:16] VITALS: BMI 22.8
[2020-01-12 12:00] LABS: International Normalized Ratio 3.5
[2020-01-26 12:22] LABS: Prothrombin Time (Protime)PT. 37.2 SECONDS (11.7-14.9)
[2020-01-26 12:30] LABS: International Normalized Ratio 3.8
[2020-01-28 12:46] LABS: International Normalized Ratio 2.6; Prothrombin Time (Protime)PT. 27.1 SECONDS (11.7-14.9)
[2020-02-04 11:54] LABS: International Normalized Ratio 1.7; Prothrombin Time (Protime)PT. 19.3 SECONDS (11.7-14.9)
== END 2020-02-04 18:00 | disposition home or self-care (01) ==
LOC: LAB 11:06
PROVIDERS: Family Provider Internal Medicine; PCP Internal Medicine; Referring Provider Internal Medicine Cardiovascular Disease; Visit Provider Internal Medicine Cardiovascular Disease
DX: Z95.2 Presence of prosthetic heart valve (principal); Z79.01 Long term (current) use of 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
CPT/HCPCS: 36415; 85610

== ENCOUNTER 2020-02-05 11:06 | Inpatient (IN) | payer OTHER, MEDICARE, SELFPAY ==
[2020-01-30 08:38] VITALS: BMI 22.8
[2020-02-05] VITALS (22 sets, daily range): BP systolic 67–139; BP diastolic 41–93; PULSE 78–110; RESP 16–22; TEMP 36.3–37.3; O2SAT 93–100; BMI 22.8; BMI 22.9; BMI 23.0
[2020-02-05 12:26] LABS: Absolute Neutrophil Count 2.2 X10^3/uL (2.0-7.7); Basophil# 0.01 X10^3/uL; Basophil% 0.4 % (0-1); Hematocrit 24.2 % (37-47); Hemoglobin 7.2 g/dL (12.0-15.0); Lymphocyte % 14.3 % (19-41); Mean Corp Hgb Conc 29.8 g/dL (32-36); Mean Corpuscular Hgb 28.9 pg (27.0-32.0); Mean Corpuscular Volume 97.2 fL (81-99); Mean Platelet Vol. 11.2 fl (6.2-12.0); Monocyte# 0.17 X10^3/uL; Monocyte% 6.1 % (0-10); NRBC Flagged by Analyzer 0 % (0-5); Neutrophil % 78.8 % (47-70); POSITIVE COUNT YES; POSITIVE DIFFERENTIAL YES; Platelet Count 99 K/mm3 (150-450); RBC Distribution Width CV 15.8 % (11.6-14.6); Red Blood Count 2.49 M/mm3 (4.2-5.4); White Blood Count 2.8 K/mm3 (4.4-11.0)
[2020-02-05 12:28] LABS: Differential Indicated SCAN CRITERIA MET
[2020-02-05 12:37] LABS: Anion Gap 3 (5-15); BUN 20 mg/dL (7-18); BUN/Creat Ratio 16.4 RATIO (10-20); Calcium,Total 8.3 mg/dL (8.5-10.1); Chloride 108 mmol/L (98-107); Creatinine, Serum 1.22 mg/dL (0.55-1.02); EST Glomerular Filtration Rate 45 mL/min (>60); Est Glom Filt Rate - Afr Amer 55 mL/min (>60); Estimated Creatinine Clearance 30.54 ml/min; Glucose 196 mg/dL (74-106); Potassium 4.1 mmol/L (3.5-5.1); Sodium Level 140 mmol/L (136-145)
--- NOTE | 2020-02-05 12:53 | ED.VISSUMM ---
- ER Visit Summary Date of Service: 02/05/20 Chief Complaint: Need transfusion History of Present Illness: The patient is a 79 F who was sent to the ED for blood transfusion. She is a patient of Dr. Thomas. She has a history of anemia. She tells me that her doctors are unsure why she is anemic. She does not report bleeding. She said that she has history of endoscopy for this. She had outpatient labs that showed a blood count of 7.4. Patient also reports that she is on Coumadin for heart valve replacement. Her INR yesterday was 1.7. Patient has no other symptoms or complaints. Patient required a recent admission for anemia and transfusion. She had a hypotension and an elevated INR at that time and was treated with fresh frozen plasma as well. She ended up signing out AGAINST MEDICAL ADVICE. Physical Examination: Afebrile and vital signs unremarkable except heart rate 105. Patient is pale in no acute distress. Heart regular. Lungs clear. Abdomen soft. Test Results: INR was 1.7 yesterday. This was not repeated. White count stable at 2.8. Platelets stable at 99. Hemoglobin 7.2 which has decreased. Her chloride is 108, glucose 196, BUN 20, creatinine 1.22. Emergency Department Course and Treatment: I rechecked the patient's labs. She has a hemoglobin of 7.2. 2 units of packed red cells were ordered. Patient gave consent. Risks discussed. She has had no issues with transfusions in the past. I contacted the hospitalist to admit for further care. Dr. Best will admit. He requested 1 unit of packed red cells. I contacted the blood bank to change the order to 1 unit. Treatment Plan: As above Disposition: Admission Impression: Anemia This note was generated with [id number] dictation software. It may contain incorrect words, spelling, and punctuation that were not noted in review of the chart prior to signing ED Disposition - Plan for ED Patient: Referrals: Kodak Muñoz MD [Primary Care Provider] -
[2020-02-05 13:22] LABS: Platelet Estimate MOD DEC (ADEQ)
[2020-02-05 13:23] LABS: Red Cell Morphology NORM C+C NORMAL (NORM C&C)
--- NOTE | 2020-02-05 13:37 | PCM.HP.STD ---
Problem List (1) GERD (gastroesophageal reflux disease) Status: Chronic Qualifiers: (2) Pericardial effusion Status: Chronic (3) Pleural effusion Status: Chronic (4) Ascites Status: Chronic (5) History of incision of pericardium Status: Resolved Comment: for pericardial effusion (6) Type 2 diabetes mellitus Status: Chronic Qualifiers: (7) GI bleed Status: Resolved Qualifiers: (8) Thrombocytopenia Status: Chronic (9) COPD (chronic obstructive pulmonary disease) Status: Chronic Qualifiers: (10) Carotid bruit Status: Chronic (11) History of cardioversion Status: Resolved (12) History of left heart catheterization Status: Resolved (13) Nonrheumatic mitral (valve) insufficiency Status: Chronic (14) History of mitral valve replacement with mechanical valve Status: Resolved Comment: #[address] Alex mechanical valve (15) Presence of permanent cardiac pacemaker Status: Resolved Comment: Implant: 07/31/2008; PPM Generator Change - [employer], [employer] MR 08/30/2018 (16) Tachycardia-bradycardia syndrome Status: Chronic (17) Chronic atrial fibrillation Status: Chronic (18) Typical atrial flutter Status: Chronic (19) Non-rheumatic tricuspid valve insufficiency Status: Chronic (20) Secondary pulmonary hypertension Status: Chronic (21) Hypotension Status: Chronic Qualifiers: (22) HLD (hyperlipidemia) Status: Chronic Qualifiers: (23) Nicotine dependence Status: Chronic Qualifiers: (24) Anemia Status: Acute (25) GI bleeding Status: Chronic (26) senior care current use of anticoagulant Status: Chronic History of Present Illness Date of Admission: 02/05/20 Chief Complaint: anemia The patient is a 79 year old F who has a history of anemia, mechanical mitral valve on warfarin and hypotension. was admitted 01/23- for anemia and supratherapeutic INR. She received 2 units of PRBCs and 2 units of FFP. She left AMA. Since then she received an additional 2 units of PRBCs. She saw her oncologist today and was directed to the ED for anemia and hypotension. Pt states she has chronic hypotension and SBP normally registers in the 60s-70s. Patient said she has an extensive GI evaluation including EGD, push enteroscopy, colonoscopy, barium studies. She states that her stools are chronically black. Denies hematochezia.[] Past Medical History Past Medical History (Chronic Problems): Chronic Problems (Last Reviewed 11/26/19 @ 10:06 by Dolores Moeller) GERD (gastroesophageal reflux disease) (Chronic) Pericardial effusion (Chronic) Pleural effusion (Chronic) Ascites (Chronic) Type 2 diabetes mellitus (Chronic) Thrombocytopenia (Chronic) COPD (chronic obstructive pulmonary disease) (Chronic) Carotid bruit (Chronic) Nonrheumatic mitral (valve) insufficiency (Chronic) Tachycardia-bradycardia syndrome (Chronic) Chronic atrial fibrillation (Chronic) Typical atrial flutter (Chronic) Non-rheumatic tricuspid valve insufficiency (Chronic) Secondary pulmonary hypertension (Chronic) Hypotension (Chronic) HLD (hyperlipidemia) (Chronic) Nicotine dependence (Chronic) GI bleeding (Chronic) 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 Reggie Best DO) GERD (gastroesophageal reflux disease) (Chronic) K21.9 Pericardial effusion (Chronic) I31.3 Pleural effusion (Chronic) J90 Ascites (Chronic) R18.8 Type 2 diabetes mellitus (Chronic) E11.9 GI bleed (Resolved) K92.2 Thrombocytopenia (Chronic) D69.6 COPD (chronic obstructive pulmonary disease) (Chronic) J44.9 Carotid bruit (Chronic) R09.89 Nonrheumatic mitral (valve) insufficiency (Chronic) I34.0 Tachycardia-bradycardia syndrome (Chronic) I49.5 Chronic atrial fibrillation (Chronic) I48.2 Typical atrial flutter (Chronic) I48.3 Non-rheumatic tricuspid valve insufficiency (Chronic) I36.1 Secondary pulmonary hypertension (Chronic) Hypotension (Chronic) I95.9 HLD (hyperlipidemia) (Chronic) E78.5 Nicotine dependence (Chronic) F17.200 GI bleeding (Chronic) K92.2 senior care current use of anticoagulant (Chronic) Z79.01 Non-rheumatic aortic stenosis (Inactive) I35.0 PVC's (premature ventricular contractions) (Inactive) I49.3 Pleural effusion, not elsewhere classified (Inactive) J90 Allergies amiodarone Adverse Reaction (Verified 02/05/20 11:07) vomiting, poor balance, dizziness digoxin Adverse Reaction (Verified 02/05/20 11:07) nausea, dry heaves lorazepam [From Ativan] Adverse Reaction (Verified 02/05/20 11:07) Unknown meloxicam [From Mobic] Adverse Reaction (Verified 02/05/20 11:07) Unknown nortriptyline HCl [From Pamelor] Adverse Reaction (Verified 02/05/20 11:07) Unknown zolpidem tartrate [From Ambien] Adverse Reaction (Verified 02/05/20 11:07) Unknown Home Medications: Ambulatory Orders Medication Instructions Recorded Atorvastatin Calcium [Lipitor] 20 mg PO QHS 05/22/13 Levothyroxine [Synthroid] 50 mcg PO DAILY 04/01/15 Ferrous Sulfate 487.5 mg PO QHS 04/02/15 Folic Acid 1 mg PO DAILY@0800 04/30/15 Cyanocobalamin (Vitamin B-12) 2,500 mcg PO DAILY 06/10/16 [Vitamin B12] Magnesium 250 mg PO DAILY 05/24/17 Cholecalciferol (Vitamin D3) 1,000 unit PO DAILY 04/07/19 [Vitamin D3] Furosemide [Lasix] 20 mg PO QODAY 04/07/19 Venlafaxine HCl 37.5 mg PO BID 04/07/19 albuterol sulfate 90 mcg/actuation 2 puff INHALATION Q6H PRN PRN #18 g 11/26/19 aerosol inhaler Diazepam [Valium] 5 mg PO DAILY PRN 01/24/20 Metoprolol Succinate [Toprol Xl] 50 mg PO DAILY 01/24/20 Pantoprazole Sodium [Protonix] 40 mg PO DAILY 01/24/20 Potassium Chloride [K-Dur] 20 meq PO DAILY 01/24/20 Warfarin Sodium 1 mg PO SUFRSA 01/24/20 Warfarin Sodium [Coumadin] 1.5 mg PO MOTUWETH 01/24/20 Surgical History: Surgical History (Last Reviewed 02/05/20 @ 13:[address] Reggie Best, DO) History of incision of pericardium (Resolved) Z98.890 for pericardial effusion History of cardioversion (Resolved) Onset Date: 10/2015 Z98.890 History of left heart catheterization (Resolved) Onset Date: 07/17/08 Z98.890 History of mitral valve replacement with mechanical valve (Resolved) Onset Date: 07/22/08 Z95.[address] Alex mechanical valve Presence of permanent cardiac pacemaker (Resolved) Onset Date: 08/30/18 Z95.0 Implant: 07/31/2008; PPM Generator Change - [employer], [employer] MR 08/30/2018 Surgical History: - - Mitral valve replacement with mechanical valve. 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 Reggie Best DO) Mother Cancer History Items: No pertinent history Maternal Family History: Family History (Last Reviewed 02/05/20 @ 13:[address] Reggie Best DO) Mother Cancer History Items: No pertinent history Review of Systems Constitutional: Reports: Anorexia. Denies: Chills, Fever Eyes: Denies: Blurred vision, Double vision HEENT: Denies: Head Aches, Sinus Congestion, Sinus Drainage Cardiovascular: Denies: Chest Pain, Palpitations Respiratory: Denies: Cough, Shortness of breath at rest, Sputum production Gastrointestinal: Denies: Abdominal Pain, Nausea, Vomiting Genitourinary: Denies: Dysuria Musculoskeletal: Denies: Joint Pain, Joint Tenderness Skin: Denies: Rash, Wounds Neurological: Denies: Numbness, Tingling, Focal weakness Psychiatric: Reports: Depression. Denies: Anxiety Hematologic/ Lymphatic: Reports: Easy Bruising. Denies: Easy Bleeding, Hx of blood clot Comment: All review of systems were negative except as mentioned above in the history of present illness and the other review of systems. VTE Information - Inpt Only VTE Present on Admission: No VTE Mechan Device Prophylaxis: None VTE Pharm Prophylaxis ordered?: No Reason prophylaxis not ordered:: Treatment Not Indicated - Physical Exam Vitals/I&O's: Vital Signs Temp Pulse Resp BP Pulse Ox 36.4 C L 105 H 18 68/41 L 93 02/05/20 13:32 02/05/20 13:32 02/05/20 13:32 02/05/20 13:32 02/05/20 13:32 Oxygen Delivery Method Room Air Weight: 56.699 kg Body Mass Index (BMI) 22.8 Finger Stick Blood Glucose 194 General: Alert, Cooperative, No apparent distress, - - pale. non-toxic HEENT: Atraumatic, Normocephalic Oral: Moist Mucosa, No Gingival or Mucosal Lesions/ Ulcerations Neck: No Nodes, Thyroid Normal Size and Texture Lungs: Clear to auscultation, Normal air movement, No rhonchi, No wheeze, No rales Cardiovascular: Regular rate, Regular Rhythm, - - 3/6 HSM at apex Abdomen: Bowel Sounds Present, Soft, Non Tender, Non-Distended, No Hepato-splenomegaly Extremities: No edema, No Calf Tenderness Skin: No rashes, No breakdown, - - bruising on UE Musculoskeletal: No Tenderness to Palpation of Joints or Extremities Neurological: Muscle tone normal, - - no clonus Psych/Mental Status: Normal Affect, Appropriate Laboratory Results 02/05/20 12:10: WBC 2.8 L, RBC 2.49 L, Hgb 7.2 L, Hct 24.2 L, MCV 97.2, MCH 28.9, MCHC 29.8 L, RDW Std Deviation 55.0 H, RDW Coeff of Uriel 15.8 H, Plt Count 99 L, MPV 11.2, Immature Gran % (Auto) 0.400, Neut % (Auto) 78.8 H, Lymph % (Auto) 14.3 L, [place] % (Auto) 6.1, Eos % (Auto) 0.0, Baso % (Auto) 0.4, Absolute Neuts (auto) 2.2, Absolute Lymphs (auto) 0.40 L, Nucleated RBC % 0, Differential Comment , Platelet Estimate MOD DEC, RBC Morphology NORM C+C 02/05/20 12:10: Sodium 140, Potassium 4.1, Chloride 108 H, Carbon Dioxide 29.0, Anion Gap 3 L, BUN 20 H, Creatinine 1.22 H, Estim Creat Clear Calc 30.54, Est GFR (MDRD) Af Amer 55 L, Est GFR (MDRD) Non-Af 45 L, BUN/Creatinine Ratio 16.4, Glucose 196 H, Calcium 8.3 L 02/05/20 12:10: Blood Type Pending, Antibody Screen Pending, Crossmatch See Detail Assessment/Plan All Active Problems (Last Reviewed 11/26/19 @ 10:06 by Dolores Moeller) History of incision of pericardium (Resolved) GI bleed (Resolved) History of cardioversion (Resolved 10/2015) History of left heart catheterization (Resolved 07/17/08) History of mitral valve replacement with mechanical valve (Resolved 07/22/08) Presence of permanent cardiac pacemaker (Resolved 08/30/18) Anemia (Acute) 1. Anemia acute on chronic anemia normocytic work up apparently has been extensive and unremarkable pt declining any further work up at this time, though would consider if condition warranted it will transfuse 1 unit complicated by warfarin use 2. coagulopathy labile was supratherapeutic earlier this month, likely complicated by endorsed poor oral intake encourage maintaining a regular diet to mitigate supratherapeutic levels now subtherapeutic 3. Mechanical mitral valve goal INR is 2.5-3.5 start enoxaparin therapeutic dosing discussed risk of CVA and embolism with patient. 4. hypotension: chronic I suspect error readings from too large a cuff as her pulses are rather strong. 6. VTE prophylaxis: not indicated as already anticoagulated Advanced care planning: Spent greater than 16 minutes discussing with patient about code status. She wishes to be full code at this time. I stressed the irony of her request as she left AMA last admission and alluded to leaving AMA this admission (did not refute it either when I asked her specifically). That she would want us to do everything possible in the event of CPA, but not necessarily do everything to keep her as healthy as we can by leaving AMA. Inpatient E&M: 08325 Init Hosp L3 Procedures: 03052 Advncd Care Plan 30 Min
--- NOTE | 2020-02-05 14:19 | NURSING ---
Pt refusing ensure- states family hx of diarrhea when drink it and afraid to try
[2020-02-05] MEDS: Venlafaxine HCl 75 MG Tablet 37.5 MG PO (22:55)
[2020-02-05] MEDS: Ferrous Sulfate 325 MG Tablet PO (22:56)
[2020-02-05] MEDS: Atorvastatin Calcium 20 MG Tablet PO (22:56)
[2020-02-05] MEDS: Enoxaparin 60 MG/0.6 ML Syringe SC (23:01)
--- NOTE | 2020-02-05 23:03 | NURSING ---
2303: Report received from Rochelle Mcdaniel RN on MS3. 2325: Pt. arrived to unit, ambulates from MS bed to PCU bed without diff. denies pain or SoB at this time on 3L n/c (acute). Belongings on shelf in PCU 112. Meds in drawer. BP 95/61 s/p 2u PRBCs.
--- NOTE | 2020-02-05 23:17 | NURSING ---
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
[2020-02-06] VITALS (10 sets, daily range): BP systolic 86–99; BP diastolic 44–59; PULSE 99–107; RESP 16–18; TEMP 36.3–37.1; O2SAT 94–99
[2020-02-06] MEDS: Levothyroxine 50 MCG Tablet PO (06:30)
[2020-02-06] MEDS: Enoxaparin 60 MG/0.6 ML Syringe SC (06:30)
[2020-02-06 06:38] LABS: Absolute Lymphocyte Count 0.43 X10^3/uL (0.83-4.51); Absolute Neutrophil Count 2.5 X10^3/uL (2.0-7.7); Basophil# 0.01 X10^3/uL; Basophil% 0.3 % (0-1); Hematocrit 31.3 % (37-47); Hemoglobin 9.4 g/dL (12.0-15.0); Lymphocyte # 0.43 X10^3/ul (4.0); Lymphocyte % 13.8 % (19-41); Mean Corpuscular Hgb 28.7 pg (27.0-32.0); Mean Corpuscular Volume 95.7 fL (81-99); Mean Platelet Vol. 10.6 fl (6.2-12.0); Monocyte# 0.15 X10^3/uL; Monocyte% 4.8 % (0-10); NRBC Flagged by Analyzer 0 % (0-5); Neutrophil # 2.51 X10^3/uL (2.7-7.7); Neutrophil % 80.8 % (47-70); POSITIVE COUNT YES; POSITIVE DIFFERENTIAL YES; Platelet Count 90 K/mm3 (150-450); RBC Distribution Width CV 16.4 % (11.6-14.6); RBC Distribution Width SD 57.1 fl (35.1-43.9); Red Blood Count 3.27 M/mm3 (4.2-5.4); White Blood Count 3.1 K/mm3 (4.4-11.0)
[2020-02-06 06:44] LABS: International Normalized Ratio 2.2
[2020-02-06 06:50] LABS: Differential Indicated SCAN CRITERIA MET
[2020-02-06 06:59] LABS: Anion Gap 4 (5-15); BUN 28 mg/dL (7-18); BUN/Creat Ratio 26.9 RATIO (10-20); Calcium,Total 8.3 mg/dL (8.5-10.1); Chloride 108 mmol/L (98-107); Creatinine, Serum 1.04 mg/dL (0.55-1.02); EST Glomerular Filtration Rate 55 mL/min (>60); Est Glom Filt Rate - Afr Amer 66 mL/min (>60); Estimated Creatinine Clearance 35.83 ml/min; Glucose 157 mg/dL (74-106); Potassium 3.9 mmol/L (3.5-5.1); Sodium Level 141 mmol/L (136-145)
[2020-02-06 07:04] LABS: Differential Comment SCANNED; Platelet Estimate SLT DEC (ADEQ)
[2020-02-06 07:05] LABS: Acanthocytes RARE; Ovalocyte RARE; Tear Drop Cell RARE
[2020-02-06] MEDS: Folic Acid 1 MG Tablet PO (08:27)
[2020-02-06] MEDS: Venlafaxine HCl 75 MG Tablet 37.5 MG PO (08:27)
[2020-02-06] MEDS: Magnesium Oxide 400 MG Tablet 200 MG PO (08:27)
[2020-02-06] MEDS: Cyanocobalamin 500 MCG Tablet 2500 MCG PO (08:28)
[2020-02-06] MEDS: Pantoprazole Sodium 40 MG Tablet PO (08:28)
[2020-02-06] MEDS: Metoprolol(XL)Succ 50 MG Tablet PO (09:10)
[2020-02-06] MEDS: Furosemide 20 MG Tablet PO (09:10)
--- NOTE | 2020-02-06 10:39 | DCINST_ITS ---
You will use the following diet at home:: No restrictions Your food should be the consistency of: Regular Your liquids should be the consistency of: Regular/Thin Discharge Activity: Return to Normal Activity Call your doctor if your incision/area has: Continuous Slow Oozing Call your doctor if you observe: Fever of 101 or Higher, Shortness of breath, Dizziness, Fainting spells Additional Instructions: Outpatient labs for CBC and INR next week. Allergies/Adverse Reactions: Allergies amiodarone Adverse Reaction (Verified 02/05/20 11:07) vomiting, poor balance, dizziness digoxin Adverse Reaction (Verified 02/05/20 11:07) nausea, dry heaves lorazepam [From Ativan] Adverse Reaction (Verified 02/05/20 11:07) Unknown meloxicam [From Mobic] Adverse Reaction (Verified 02/05/20 11:07) Unknown nortriptyline HCl [From Pamelor] Adverse Reaction (Verified 02/05/20 11:07) Unknown zolpidem tartrate [From Ambien] Adverse Reaction (Verified 02/05/20 11:07) Unknown Medications to take at Discharge Atorvastatin Calcium [Lipitor] 20 mg PO QHS 05/22/13 Levothyroxine [Synthroid] 50 mcg PO DAILY 04/01/15 Ferrous Sulfate 487.5 mg PO QHS 04/02/15 Folic Acid 1 mg PO DAILY@0800 04/30/15 Cyanocobalamin (Vitamin B-12) [Vitamin B12] 2,500 mcg PO DAILY 06/10/16 Magnesium 250 mg PO DAILY 05/24/17 Cholecalciferol (Vitamin D3) [Vitamin D3] 1,000 unit PO DAILY 04/07/19 Furosemide [Lasix] 20 mg PO QODAY 04/07/19 Venlafaxine HCl 37.5 mg PO BID 04/07/19 albuterol sulfate 90 mcg/actuation aerosol inhaler 2 puff INHALATION Q6H PRN PRN #18 g 11/26/19 Diazepam [Valium] 5 mg PO DAILY PRN 01/24/20 Metoprolol Succinate [Toprol Xl] 50 mg PO DAILY 01/24/20 Pantoprazole Sodium [Protonix] 40 mg PO DAILY 01/24/20 Potassium Chloride [K-Dur] 20 meq PO DAILY 01/24/20 Warfarin Sodium 1 mg PO SUTUTHSA 01/24/20 Warfarin Sodium [Coumadin] 1.5 mg PO MOWEFR 01/24/20 Acetaminophen [Tylenol Tablet] 650 mg PO Q6H PRN PRN tab 02/06/20 Primary Care Physician: Kodak Muñoz MD [Primary Care Provider] - Within 2 Weeks Test Results: Test results from this visit will be discussed in further detail at your follow- up appointment, if applicable. Please Follow Up With: Edd Thomas MD When: 2-3 weeks Please Follow Up With: Eddie Mendoza MD When: 04/01/2020, already scheduled Proposed Discharge Date: 02/06/20
--- NOTE | 2020-02-06 10:42 | PCM.DC.SUM ---
Discharge Date and Diagnosis Date of Admission: 02/05/20 Date of Discharge: 02/06/20 - Primary Discharge Diagnosis Acute Problems: 1. Anemia acute on chronic anemia normocytic work up apparently has been extensive and unremarkable pt declining any further work up at this time, though would consider if condition warranted it transfused 2 units PRBCs complicated by warfarin use she has CBC checks as outpt already scheduled. 2. coagulopathy labile was supratherapeutic earlier this month, likely complicated by endorsed poor oral intake encourage maintaining a regular diet to mitigate supratherapeutic levels now subtherapeutic, though improved 3. Mechanical mitral valve goal INR is 2.5-3.5 hold enoxaparin pt to have INR check next week. discussed risk of CVA and embolism with patient. 4. hypotension: chronic asymptomatic - Secondary Discharge Diagnosis Chronic Problems: Chronic Problems (Last Reviewed 02/05/20 @ 13:[address] Reggie Best, DO) GERD (gastroesophageal reflux disease) (Chronic) Pericardial effusion (Chronic) Pleural effusion (Chronic) Ascites (Chronic) Type 2 diabetes mellitus (Chronic) Thrombocytopenia (Chronic) COPD (chronic obstructive pulmonary disease) (Chronic) Carotid bruit (Chronic) Nonrheumatic mitral (valve) insufficiency (Chronic) Tachycardia-bradycardia syndrome (Chronic) Chronic atrial fibrillation (Chronic) Typical atrial flutter (Chronic) Non-rheumatic tricuspid valve insufficiency (Chronic) Secondary pulmonary hypertension (Chronic) Hypotension (Chronic) HLD (hyperlipidemia) (Chronic) Nicotine dependence (Chronic) GI bleeding (Chronic) 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 Patient's had chronic anemia for years complicated by the fact that she is on warfarin for a mechanical mitral valve. Patient's hemoglobin was 7.2. Patient was transfused 2 units packed red blood cells and her hemoglobin currently is 9.4. Patient had issues with hypotension but this is a chronic process for her and she is otherwise asymptomatic. INR was initially 1.7 up to 2.2 today. Patient will continue with the warfarin at his current dose. Patient will have outpatient INR next week. [] - Physical Exam Vitals/I&O's: Vital Signs Temp Pulse Resp BP Pulse Ox 36.3 C L 107 H 18 98/56 L 94 02/06/20 10:20 02/06/20 10:20 02/06/20 10:20 02/06/20 10:20 02/06/20 10:20 Oxygen Flow Rate (L/min) 2 Oxygen Delivery Method Nasal Cannula Weight: 57 kg Body Mass Index (BMI) 22.9 Finger Stick Blood Glucose 194 Intake and Output for Last 24 Hours 02/04/20 02/05/20 02/06/20 23:59 23:59 23:59 Intake Total 1250 / 1250 120 / 120 Output Total 200 / 200 200 / 200 Balance 1050 / 1050 -80 / -80 General: Alert, No apparent distress HEENT: Atraumatic, Normocephalic Oral: Moist Mucosa, No Gingival or Mucosal Lesions/ Ulcerations Neck: No Nodes, Thyroid Normal Size and Texture Lungs: Clear to auscultation, Normal air movement, No rhonchi, No wheeze, No rales Cardiovascular: Regular rate, Regular Rhythm, Normal S1, Normal S2, No murmurs Abdomen: Bowel Sounds Present, Soft, Non Tender, Non-Distended, No Hepato-splenomegaly Extremities: No edema, No Calf Tenderness Skin: No rashes, No breakdown Psych/Mental Status: Normal Affect, Appropriate Laboratory Results 02/05/20 12:10: WBC 2.8 L, RBC 2.49 L, Hgb 7.2 L, Hct 24.2 L, MCV 97.2, MCH 28.9, MCHC 29.8 L, RDW Std Deviation 55.0 H, RDW Coeff of Uriel 15.8 H, Plt Count 99 L, MPV 11.2, Immature Gran % (Auto) 0.400, Neut % (Auto) 78.8 H, Lymph % (Auto) 14.3 L, [place] % (Auto) 6.1, Eos % (Auto) 0.0, Baso % (Auto) 0.4, Absolute Neuts (auto) 2.2, Absolute Lymphs (auto) 0.40 L, Nucleated RBC % 0, Differential Comment , Platelet Estimate MOD DEC, RBC Morphology NORM C+C 02/05/20 12:10: Sodium 140, Potassium 4.1, Chloride 108 H, Carbon Dioxide 29.0, Anion Gap 3 L, BUN 20 H, Creatinine 1.22 H, Estim Creat Clear Calc 30.54, Est GFR (MDRD) Af Amer 55 L, Est GFR (MDRD) Non-Af 45 L, BUN/Creatinine Ratio 16.4, Glucose 196 H, Calcium 8.3 L 02/05/20 12:10: Blood Type A POSITIVE, Antibody Screen NEGATIVE, Crossmatch See Detail 02/06/20 06:05: WBC 3.1 L, RBC 3.27 L, Hgb 9.4 L, Hct 31.3 L, MCV 95.7, MCH 28.7, MCHC 30.0 L, RDW Std Deviation 57.1 H, RDW Coeff of Uriel 16.4 H, Plt Count 90 L, MPV 10.6, Immature Gran % (Auto) 0.300, Neut % (Auto) 80.8 H, Lymph % (Auto) 13.8 L, [place] % (Auto) 4.8, Eos % (Auto) 0.0, Baso % (Auto) 0.3, Absolute Neuts (auto) 2.5, Absolute Lymphs (auto) 0.43 L, Nucleated RBC % 0, Differential Comment SCANNED, Diff Path Review May eliana, Platelet Estimate SLT DEC, Tear Drop Cells RARE, Ovalocytes RARE, Acanthocytes (Spur) RARE 02/06/20 06:05: PT 24.0 H, INR 2.2 02/06/20 06:05: Sodium 141, Potassium 3.9, Chloride 108 H, Carbon Dioxide 29.0, Anion Gap 4 L, BUN 28 H, Creatinine 1.04 H, Estim Creat Clear Calc 35.83, Est GFR (MDRD) Af Amer 66, Est GFR (MDRD) Non-Af 55 L, BUN/Creatinine Ratio 26.9 H, Glucose 157 H, Calcium 8.3 L Current Medications Acetaminophen (Tylenol) 650 mg PO Q6H PRN PRN PRN Reason: Pain Score 1-10/Temp > 100.7 F Albuterol Sulfate (Ventolin Aerosols) 2.5 mg INHALATION Q4H PRN PRN PRN Reason: Wheezing Atorvastatin Calcium (Lipitor) 20 mg PO QHS [facility] Last Admin: 02/05/20 22:56 Dose: 20 mg Documented by: Cholecalciferol (Vitamin D (25mcg)) 1,000 unit PO DAILY [facility] Last Admin: 06/26/20 08:28 Dose: 1,000 unit Documented by: Cyanocobalamin (Vitamin B12) 2,500 mcg PO DAILY [facility] Last Admin: 02/06/20 08:28 Dose: 2,500 mcg Documented by: Dextrose (D50w Syringe) 0 gm IV X1 PRN; Protocol PRN Reason: Hypoglycemia Diazepam (Valium) 5 mg PO DAILY PRN PRN Reason: ANXIETY Enoxaparin Sodium (Lovenox) 60 mg SC Q12@0600,1800 [facility] Last Admin: 02/06/20 06:30 Dose: 60 mg Documented by: Ferrous Sulfate (Ferrous Sulfate) 325 mg PO QHS [facility] Last Admin: 02/05/20 22:56 Dose: 325 mg Documented by: Folic Acid (Folic Acid) 1 mg PO DAILY@0800 [facility] Last Admin: 02/06/20 08:27 Dose: 1 mg Documented by: Furosemide (Lasix) 20 mg PO QODAY [facility] Last Admin: 02/06/20 09:10 Dose: 20 mg Documented by: Glucagon () 1 mg IM .X1 PRN PRN Reason: Hypoglycemia Sodium Chloride () 250 mls @ 15 mls/hr IV .[id number] PRN PRN Reason: Saline Flush Levothyroxine Sodium (Synthroid) 50 mcg PO DAILY@0600 [facility] Last Admin: 02/06/20 06:30 Dose: 50 mcg Documented by: Magnesium Oxide (Mag-Ox 400) 200 mg PO DAILY [facility] Last Admin: 02/06/20 08:27 Dose: 200 mg Documented by: Metoprolol Succinate (Toprol Xl (Beta Jeremy)) 50 mg PO DAILY [facility] Last Admin: 02/06/20 09:10 Dose: 50 mg Documented by: Pantoprazole Sodium (Protonix) 40 mg PO DAILY [facility] Last Admin: 02/06/20 08:28 Dose: 40 mg Documented by: Potassium Chloride (K-Dur) 20 meq PO DAILY [facility] Last Admin: 02/06/20 08:26 Dose: 20 meq Documented by: Sodium Chloride () 10 - 40 ml IV UD PRN PRN Reason: SALINE FLUSH Venlafaxine HCl (Effexor) 37.5 mg PO BID [facility] Last Admin: 02/06/20 08:27 Dose: 37.5 mg Documented by: Warfarin Sodium (Coumadin (Pbkc)) 1.5 mg PO MoWeFr@1700 [facility]; Protocol Warfarin Sodium (Jantoven) 1 mg PO SuTuThSa@1700 [facility]; Protocol Last Admin: 02/05/20 17:18 Dose: 1 mg Documented by: Discharge Diet: No Restrictions Discharge Activity: Return to Normal Activity Call your doctor if your incision/area has: Continuous Slow Oozing Call your doctor if you observe: Fever of 101 or Higher, Shortness of breath, Dizziness, Fainting spells Home Medications: Medications to take at Discharge Atorvastatin Calcium [Lipitor] 20 mg PO QHS 05/22/13 Levothyroxine [Synthroid] 50 mcg PO DAILY 04/01/15 Ferrous Sulfate 487.5 mg PO QHS 04/02/15 Folic Acid 1 mg PO DAILY@0800 04/30/15 Cyanocobalamin (Vitamin B-12) [Vitamin B12] 2,500 mcg PO DAILY 06/10/16 Magnesium 250 mg PO DAILY 05/24/17 Cholecalciferol (Vitamin D3) [Vitamin D3] 1,000 unit PO DAILY 04/07/19 Furosemide [Lasix] 20 mg PO QODAY 04/07/19 Venlafaxine HCl 37.5 mg PO BID 04/07/19 albuterol sulfate 90 mcg/actuation aerosol inhaler 2 puff INHALATION Q6H PRN PRN #18 g 11/26/19 Diazepam [Valium] 5 mg PO DAILY PRN 01/24/20 Metoprolol Succinate [Toprol Xl] 50 mg PO DAILY 01/24/20 Pantoprazole Sodium [Protonix] 40 mg PO DAILY 01/24/20 Potassium Chloride [K-Dur] 20 meq PO DAILY 01/24/20 Warfarin Sodium 1 mg PO SUTUTHSA 01/24/20 Warfarin Sodium [Coumadin] 1.5 mg PO MOWEFR 01/24/20 Acetaminophen [Tylenol Tablet] 650 mg PO Q6H PRN PRN tab 02/06/20 Primary Care Physician: Kodak Muñoz MD [Primary Care Provider] - Within 2 Weeks Please Follow Up With: Edd Thomas MD When: 2-3 weeks Please Follow Up With: Eddie Mendoza MD When: 04/01/2020, already scheduled Disposition: Home Minutes spent on discharge:: 32 Patient Condition:: Fair Medical Necessity - Tobacco Use Smoking Status: Current every day smoker Meaningful Use Info Meaningful Use Diagnoses (Choose all that apply): None applicable Inpatient E&M: 76336 Disch Hosp
[2020-02-06 11:03] LABS: Pathologist Review Reviewed
[2020-02-06 11:07] LABS: Pathologist Review Reviewed
--- NOTE | 2020-02-06 11:30 | CASEMGMT ---
ANDRES ANGUIANO Re-admission note: Previous Admission: Admitted 01/23 for Severe Anemia (Hgb 6.3) and supratherapeutic INR (INR: 8.3). Pt received 2 Units PRBC's and 2 units FFP and then left AMA on 01/24/20 prior to receiving 3rd unit PRBC's. Current Admission: Pt was @ Dr Thomas's office (oncology/hematology) and sent to ER for anemia and hypotension 02/05/20. Hgb: 7.2. ANDRES ANGUIANO to room to talk with pt. Pt sitting up in bed, a/ox3. Introduced self and role of ANDRES ANGUIANO. Pt states she sees Dr Thomas every for injections and received blood transfusions as needed. Pt states since she left AMA 01/24/20 that she has kept all of her appts w/Dr Thomas. She states she has an upcoming appt with Dr Muñoz in a few weeks but does not remember date. Pt denies having any discharge planning needs. She lives @ home w/her and denies need for HHC or therapy. Jorge A BLOOD RN, CM
--- NOTE | 2020-02-06 12:07 | PHA.DC.MR ---
Pharmacy Service has performed discharge medication reconciliation for this patient. The patient's discharge medication list was reviewed for discrepancies and discrepancies were resolved. Home Medications Atorvastatin Calcium [Lipitor] 20 mg PO QHS 05/22/13 Levothyroxine [Synthroid] 50 mcg PO DAILY 04/01/15 Ferrous Sulfate 487.5 mg PO QHS 04/02/15 Folic Acid 1 mg PO DAILY@0800 04/30/15 Cyanocobalamin (Vitamin B-12) [Vitamin B12] 2,500 mcg PO DAILY 06/10/16 Magnesium 250 mg PO DAILY 05/24/17 Cholecalciferol (Vitamin D3) [Vitamin D3] 1,000 unit PO DAILY 04/07/19 Furosemide [Lasix] 20 mg PO QODAY 04/07/19 Venlafaxine HCl 37.5 mg PO BID 04/07/19 albuterol sulfate 90 mcg/actuation aerosol inhaler 2 puff INHALATION Q6H PRN PRN #18 g 11/26/19 Diazepam [Valium] 5 mg PO DAILY PRN 01/24/20 Metoprolol Succinate [Toprol Xl] 50 mg PO DAILY 01/24/20 Pantoprazole Sodium [Protonix] 40 mg PO DAILY 01/24/20 Potassium Chloride [K-Dur] 20 meq PO DAILY 01/24/20 Warfarin Sodium 1 mg PO SUTUTHSA 01/24/20 Warfarin Sodium [Coumadin] 1.5 mg PO MOWEFR 01/24/20 Acetaminophen [Tylenol Tablet] 650 mg PO Q6H PRN PRN tab 02/06/20
--- NOTE | 2020-02-09 14:33 | CASEMGMT ---
ANDRES ANGUIANO Discharge F/U Phone Call LACOlivia: Raheem Strata: 3 Discharge date: 02/06/2020 Call date: 02/09/2020 Call time: [id number] Admission dx: Anemia Pt states is doing 'pretty good' since discharge. Pt states no questions regarding discharge instructions/medications at this time. Pt states that she saw Dr. Muñoz today and that she had iron infusion today. Pt states that she also has an ultrasound scheduled for next week. Pt states no suggestions for [facility] at this time and states 'Everything was fine.' Pt states no further questions/concerns/needs at this time and thanks this RN SILVIO for the call. Reina CAMPOS CM
== END 2020-02-06 13:58 | disposition home or self-care (01) | DRG 812 ==
LOC: ED 13:10 → MS3 02-06 07:04 → PCU 02-06 07:04
PROVIDERS: Emergency Provider Emergency Medicine; PCP Internal Medicine
DX: D64.9 Anemia, unspecified (principal); D68.9 Coagulation defect, unspecified; I31.3 Pericardial effusion (noninflammatory); J90 Pleural effusion, not elsewhere classified; R18.8 Other ascites; I48.20 Chronic atrial fibrillation, unspecified; I48.3 Typical atrial flutter; K92.2 Gastrointestinal hemorrhage, unspecified; I95.89 Other hypotension; D69.6 Thrombocytopenia, unspecified; K21.9 Gastro-esophageal reflux disease without esophagitis; E11.9 Type 2 diabetes mellitus without complications; J44.9 Chronic obstructive pulmonary disease, unspecified; R09.89 Other specified symptoms and signs involving the circulatory and respiratory systems; I34.0 Nonrheumatic mitral (valve) insufficiency; I49.5 Sick sinus syndrome; I36.1 Nonrheumatic tricuspid (valve) insufficiency; I27.20 Pulmonary hypertension, unspecified; E78.5 Hyperlipidemia, unspecified; F17.200 Nicotine dependence, unspecified, uncomplicated; Z95.2 Presence of prosthetic heart valve; Z95.0 Presence of cardiac pacemaker; Z79.01 Long term (current) use of 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; Z79.890 Hormone replacement therapy; Z79.899 Other long term (current) drug therapy
CPT/HCPCS: 36415; 80048; 85025; 85610; 86850; 86900; 86901; 86902; 86920; 86921; 86922; 97802; 99283; J7040; P9016

== ENCOUNTER 2020-02-13 09:09 | Outpatient (CLI) | payer OTHER, SELFPAY ==
[2020-02-05 13:53] VITALS: BMI 22.9
[2020-02-13] VITALS (8 sets, daily range): BP systolic 51–66; BP diastolic 30–47; PULSE 65–77; RESP 16–18; TEMP 36.3–36.8; O2SAT 9–98
[2020-02-13] MEDS: 0.9% NaCl Peripheral Flush Adult/Peds IV (10:02)
== END 2020-02-13 16:04 | disposition home or self-care (01) ==
LOC: MEDOUTP 09:09 → MS3 09:09
PROVIDERS: PCP Internal Medicine; Referring Provider Internal Medicine Hematology & Oncology; Visit Provider Internal Medicine Hematology & Oncology
DX: Z51.89 Encounter for other specified aftercare (principal); N18.9 Chronic kidney disease, unspecified; K92.2 Gastrointestinal hemorrhage, unspecified
CPT/HCPCS: 36430; 86850; 86900; 86901; 86902; 86920; 86922; J7040; P9016; A4216

== ENCOUNTER 2020-02-25 09:37 | Outpatient (RCR) | payer OTHER, SELFPAY ==
[2020-02-05 13:53] VITALS: BMI 22.9
[2020-02-11 11:24] LABS: International Normalized Ratio 2.4; Prothrombin Time (Protime)PT. 25.4 SECONDS (11.7-14.9)
[2020-02-25 10:32] LABS: International Normalized Ratio 2.4; Prothrombin Time (Protime)PT. 25.5 SECONDS (11.7-14.9)
== END 2020-02-25 18:00 | disposition home or self-care (01) ==
LOC: LAB 09:37
PROVIDERS: Family Provider Internal Medicine; PCP Internal Medicine; Referring Provider Internal Medicine Cardiovascular Disease; Visit Provider Internal Medicine Cardiovascular Disease
DX: Z95.2 Presence of prosthetic heart valve (principal); Z79.01 Long term (current) use of 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
CPT/HCPCS: 36415; 85610

== ENCOUNTER → 2020-02-27 08:07 | Outpatient (CLI) | payer OTHER, SELFPAY ==
[2020-02-05 13:53] VITALS: BMI 22.9
[2020-02-27] VITALS (7 sets, daily range): BP systolic 46–66; BP diastolic 31–39; PULSE 69–98; RESP 12–16; TEMP 36–36.8; O2SAT 77–99; BMI 21.9
[2020-02-27] MEDS: 0.9% NaCl Peripheral Flush Adult/Peds IV (08:20)
[2020-02-27] MEDS: Acetaminophen 325 MG Tablet 650 MG PO (08:36)
== END ==
PROVIDERS: PCP Internal Medicine; Referring Provider Internal Medicine Hematology & Oncology; Visit Provider Internal Medicine Hematology & Oncology
DX: Z51.89 Encounter for other specified aftercare (principal); N18.9 Chronic kidney disease, unspecified; K92.2 Gastrointestinal hemorrhage, unspecified; Z79.02 Long term (current) use of antithrombotics/antiplatelets
CPT/HCPCS: 36430; 86850; 86900; 86901; 86902; 86920; 86922; J7040; P9016; A4216

== ENCOUNTER → 2020-03-05 08:13 | Outpatient (CLI) | payer OTHER, SELFPAY ==
[2020-02-27 08:14] VITALS: BMI 21.9
[2020-03-05] VITALS (8 sets, daily range): BP systolic 43–63; BP diastolic 25–45; PULSE 44–99; RESP 16–18; TEMP 36.5–36.9; O2SAT 93–99; BMI 21.5
[2020-03-05] MEDS: Acetaminophen 325 MG Tablet 650 MG PO (08:26)
[2020-03-05] MEDS: 0.9% NaCl Peripheral Flush Adult/Peds IV (08:37)
== END ==
PROVIDERS: PCP Internal Medicine; Referring Provider Internal Medicine Hematology & Oncology; Visit Provider Internal Medicine Hematology & Oncology
DX: Z51.89 Encounter for other specified aftercare (principal); N18.9 Chronic kidney disease, unspecified; K92.2 Gastrointestinal hemorrhage, unspecified
CPT/HCPCS: 36430; 86850; 86900; 86901; 86902; 86920; 86922; J7040; P9016; A4216

== ENCOUNTER → 2020-03-19 08:15 | Outpatient (CLI) | payer OTHER, SELFPAY ==
[2020-03-05 08:19] VITALS: BMI 21.5
[2020-03-19] VITALS (7 sets, daily range): BP systolic 55–70; BP diastolic 38–52; PULSE 69–103; RESP 16–18; TEMP 36.1–36.7; O2SAT 95–100; BMI 21.5
[2020-03-19] MEDS: Acetaminophen 325 MG Tablet 650 MG PO (08:25)
[2020-03-19] MEDS: 0.9% NaCl Peripheral Flush Adult/Peds IV (08:27)
== END ==
PROVIDERS: PCP Internal Medicine; Referring Provider Internal Medicine Hematology & Oncology; Visit Provider Internal Medicine Hematology & Oncology
DX: Z51.89 Encounter for other specified aftercare (principal); N18.9 Chronic kidney disease, unspecified; K92.2 Gastrointestinal hemorrhage, unspecified
CPT/HCPCS: 36430; 86850; 86900; 86901; 86902; 86920; 86922; J7040; P9016; A4216

== ENCOUNTER → 2020-04-02 07:32 | Outpatient (CLI) | payer OTHER, SELFPAY ==
[2020-03-19 08:20] VITALS: BMI 21.5
[2020-04-01 13:27] VITALS: BMI 21.4
[2020-04-02] VITALS (7 sets, daily range): BP systolic 54–119; BP diastolic 27–81; PULSE 73–88; RESP 16; TEMP 36.3–36.9; O2SAT 94–98; BMI 21.2
[2020-04-02] MEDS: 0.9% NaCl Peripheral Flush Adult/Peds IV (08:08)
[2020-04-02] MEDS: Acetaminophen 325 MG Tablet 650 MG PO (08:08)
== END ==
PROVIDERS: PCP Internal Medicine; Referring Provider Internal Medicine Hematology & Oncology; Visit Provider Internal Medicine Hematology & Oncology
DX: Z51.89 Encounter for other specified aftercare (principal); N18.9 Chronic kidney disease, unspecified; K92.2 Gastrointestinal hemorrhage, unspecified
CPT/HCPCS: 36430; 86850; 86900; 86901; 86902; 86920; 86922; J7040; P9016; A4216

== ENCOUNTER 2020-04-12 12:26 | Outpatient (RCR) | payer OTHER, SELFPAY ==
[2020-03-05 08:19] VITALS: BMI 21.5
[2020-03-18 12:25] LABS: Prothrombin Time (Protime)PT. 22.1 SECONDS (11.7-14.9)
[2020-03-25 11:23] LABS: International Normalized Ratio 1.7; Prothrombin Time (Protime)PT. 19.6 SECONDS (11.7-14.9)
[2020-03-29 11:24] LABS: International Normalized Ratio 2.8
[2020-04-12 13:54] LABS: International Normalized Ratio 2.4; Prothrombin Time (Protime)PT. 25.6 SECONDS (11.7-14.9)
== END 2020-04-12 18:00 | disposition home or self-care (01) ==
LOC: LAB 12:26
PROVIDERS: Family Provider Internal Medicine; PCP Internal Medicine; Referring Provider Internal Medicine Cardiovascular Disease; Visit Provider Internal Medicine Cardiovascular Disease
DX: Z95.2 Presence of prosthetic heart valve (principal); Z79.01 Long term (current) use of 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
CPT/HCPCS: 36415; 85610

== ENCOUNTER → 2020-04-16 09:14 | Outpatient (CLI) | payer OTHER, SELFPAY ==
[2020-04-02 08:01] VITALS: BMI 21.2
[2020-04-16] VITALS (7 sets, daily range): BP systolic 61–82; BP diastolic 30–48; PULSE 72–97; RESP 16; TEMP 35.7–36.4; O2SAT 85–96; BMI 21.2
[2020-04-16] MEDS: Acetaminophen 325 MG Tablet 650 MG PO (09:23)
[2020-04-16] MEDS: 0.9% NaCl Peripheral Flush Adult/Peds IV (09:25)
== END ==
PROVIDERS: PCP Internal Medicine; Referring Provider Internal Medicine Hematology & Oncology; Visit Provider Internal Medicine Hematology & Oncology
DX: Z51.89 Encounter for other specified aftercare (principal); N18.9 Chronic kidney disease, unspecified; K92.2 Gastrointestinal hemorrhage, unspecified
CPT/HCPCS: 36430; 86850; 86900; 86901; 86920; 86922; J7040; P9016; A4216

== ENCOUNTER 2020-04-29 12:04 | Inpatient (IN) | payer OTHER, MEDICARE, SELFPAY ==
[2020-04-16 09:38] VITALS: BMI 21.2
[2020-04-29] VITALS (15 sets, daily range): BP systolic 47–93; BP diastolic 28–72; PULSE 96–104; RESP 12–27; TEMP 36.1–37.1; O2SAT 92–100; BMI 21.5
--- NOTE | 2020-04-29 12:30 | ED.DCSUM_ITS ---
- ER Visit Summary Date of Service: 04/29/20 Chief Complaint: Abnormal labs History of Present Illness: The patient is a 79 F presenting with abnormal labs. Patient has a history of anemia requiring transfusions. She had blood work done today which showed a hemoglobin of 5.4. Her last transfusion was 2 weeks ago. She states she has had a full work-up with no known cause of her anemia. She chronically has black stool and is on iron supplements. She has had endoscopy and colonoscopy per Dr. Miramonets with no bleeding seen. She complains of generalized weakness, dizziness. She denies syncope. Denies chest pain or shortness of breath. Physical Examination: Vitals are stable. Patient is afebrile. Alert no acute distress. HEENT exam is unremarkable. Pale conjunctive Neck is supple. Lungs are clear and equal bilaterally. Heart is regular rate and rhythm. Abdomen is soft nontender nondistended. Extremities are unremarkable. Skin is warm and dry with pallor No focal neurologic deficit. Remainder of exam is unremarkable. Emergency Department Course and Treatment: CBC shows white count 3.3, hemoglobin 5.6, platelet 93. Chemistries show glucose 197, BUN 37, creatinine 1.67. INR 4.7. She was typed and crossed for 2 units packed red blood cells. Will discuss with hospitalist for observation. Disposition: Observation Impression: Anemia requiring transfusion This note was generated with [employer] dictation software. It may contain incorrect words, spelling, and punctuation that were not noted in review of the chart prior to signing ED Disposition - Plan for ED Patient: Referrals: Kodak Muñoz MD [Primary Care Provider] -
[2020-04-29 12:44] LABS: Absolute Lymphocyte Count 0.37 X10^3/uL (0.83-4.51); Absolute Neutrophil Count 2.8 X10^3/uL (2.0-7.7); Basophil# 0.01 X10^3/uL; Basophil% 0.3 % (0-1); Hematocrit 18.3 % (37-47); Lymphocyte # 0.37 X10^3/ul (4.0); Lymphocyte % 11.1 % (19-41); Mean Corp Hgb Conc 30.6 g/dL (32-36); Mean Corpuscular Hgb 30.8 pg (27.0-32.0); Mean Corpuscular Volume 100.5 fL (81-99); Mean Platelet Vol. 11.4 fl (6.2-12.0); Monocyte# 0.17 X10^3/uL; Monocyte% 5.1 % (0-10); NRBC Flagged by Analyzer 0 % (0-5); Neutrophil # 2.77 X10^3/uL (2.7-7.7); Neutrophil % 82.9 % (47-70); POSITIVE COUNT YES; POSITIVE DIFFERENTIAL YES; Platelet Count 93 K/mm3 (150-450); RBC Distribution Width CV 16.7 % (11.6-14.6); Red Blood Count 1.82 M/mm3 (4.2-5.4); White Blood Count 3.3 K/mm3 (4.4-11.0)
[2020-04-29 12:51] LABS: Differential Indicated SCAN CRITERIA MET; Hemoglobin 5.6 g/dL (12.0-15.0)
[2020-04-29 12:56] LABS: Anion Gap 5 (5-15); BUN 37 mg/dL (7-18); BUN/Creat Ratio 22.2 RATIO (10-20); Calcium,Total 8.1 mg/dL (8.5-10.1); Chloride 110 mmol/L (98-107); Creatinine, Serum 1.67 mg/dL (0.55-1.02); EST Glomerular Filtration Rate 32 mL/min (>60); Est Glom Filt Rate - Afr Amer 38 mL/min (>60); Estimated Creatinine Clearance 22.31 ml/min; Glucose 197 mg/dL (74-106); Potassium 4.1 mmol/L (3.5-5.1); Sodium Level 140 mmol/L (136-145)
[2020-04-29 12:58] LABS: Prothrombin Time (Protime)PT. 44.4 SECONDS (11.7-14.9)
[2020-04-29 13:00] LABS: International Normalized Ratio 4.7
[2020-04-29 13:26] LABS: Microcytosis 1+; Platelet Estimate MKD DEC (ADEQ)
[2020-04-29 13:27] LABS: Hypochromasia 1+
--- NOTE | 2020-04-29 13:40 | ED.RN ---
BP LOW, 50/32, CUFF CHANGED THEN WAS 58/28. PT STATES THIS IS A NORMAL BP FOR ME. MD MADE AWARE, 1L FLUID BOLUS ORDERED.
--- NOTE | 2020-04-29 13:55 | HP.PCM_ITS ---
<Royer Oviedo - Last Filed: 04/29/20 13:55> Problem List (1) Anemia Status: Acute (2) Pancytopenia Status: Chronic (3) Presence of permanent cardiac pacemaker Status: Resolved Comment: Implant: 07/31/2008; PPM Generator Change - [employer], Giovannide MR 08/30/2018 (4) History of mitral valve replacement with mechanical valve Status: Resolved Comment: #[address] Alex mechanical valve (5) Chronic atrial fibrillation Status: Chronic (6) Secondary pulmonary hypertension Status: Chronic (7) HLD (hyperlipidemia) Status: Chronic (8) Nicotine dependence Status: Chronic (9) COPD (chronic obstructive pulmonary disease) Status: Chronic History of Present Illness Date of Admission: 04/29/20 Chief Complaint: abnormal labs The patient is a 79 year old F with pmhx of chronic anemia and iron deficiency requiring frequent transfusions per Dr. Thomas, mitral valve replacement with mechanical valve on warfarin, who presents to the ER with abnormal labs - low Hgb. She has Hgb checked weekly with Dr. Thomas. She often has outpatient transfusi ons however she was much lower than normal so she was sent to the ER. She has a Hgb of 5.6 which she notes is particularly low for her. She is pancytopenic. She has noticed the past several days she has been more lightheaded than normal (LH all the time) and much weaker than normal, and states she felt like she was due for a transfusion. She has had extensive endoscopy with Dr. Miramontes and no sour ce of bleeding has been located. She is not sure if she has had a bone marrow biopsy. She admits that she does not eat well and is probably malnourished. She also continues to smoke 1-1.5 packs per day and has chronic hypoxic respiratory failure utilizing 2 lpm o2 in the evening. She has chronically black stools that she attributes to taking iron. She denies hematuria, nausea, vomiting, or abdominal pain. She is registering a low BP in the ER however this was not accurate as no appropriate size cuff was available and she has no altered mental status and excellent peripheral pulses. [] Past Medical History Past Medical History (Chronic Problems): Chronic Problems (Last Reviewed 04/01/20 @ 16:[address] 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) Z79.01 Thrombocytopenia (Chronic) D69.6 COPD (chronic obstructive pulmonary disease) (Chronic) J44.9 GI bleeding (Chronic) K92.2 Ascites R18.8 Carotid bruit R09.89 GERD (gastroesophageal reflux disease) K21.9 Type 2 diabetes mellitus E11.9 GI bleed K92.2 Pericardial effusion I31.3 Pleural effusion J90 Non-rheumatic aortic stenosis (Inactive) I35.0 PVC's (premature ventricular contractions) (Inactive) I49.3 Pleural effusion, not elsewhere classified (Inactive) J90 Allergies amiodarone Adverse Reaction (Verified 04/29/20 12:05) vomiting, poor balance, dizziness digoxin Adverse Reaction (Verified 04/29/20 12:05) nausea, dry heaves lorazepam [From Ativan] Adverse Reaction (Verified 04/29/20 12:05) Unknown meloxicam [From Mobic] Adverse Reaction (Verified 04/29/20 12:05) Unknown nortriptyline HCl [From Pamelor] Adverse Reaction (Verified 04/29/20 12:05) Unknown zolpidem tartrate [From Ambien] Adverse Reaction (Verified 04/29/20 12:05) Unknown Home Medications: Ambulatory Orders Medication Instructions Recorded Atorvastatin Calcium [Lipitor] 20 mg PO QHS 05/22/13 Levothyroxine [Synthroid] 75 mcg PO DAILY 04/01/15 Ferrous Sulfate 650 mg PO QHS 04/02/15 Folic Acid 1 mg PO DAILY@0800 04/30/15 Cyanocobalamin (Vitamin B-12) 2,500 mcg PO DAILY 06/10/16 [Vitamin B12] Magnesium 250 mg PO DAILY 05/24/17 Cholecalciferol (Vitamin D3) 1,000 unit PO DAILY 04/07/19 [Vitamin D3] Venlafaxine HCl 37.5 mg PO BID 04/07/19 albuterol sulfate 90 mcg/actuation 2 puff INHALATION Q6H PRN PRN #18 g 11/26/19 aerosol inhaler Pantoprazole Sodium [Protonix] 40 mg PO DAILY 01/24/20 Potassium Chloride [K-Dur] 20 meq PO DAILY 01/24/20 doxepin 25 mg capsule 25 mg PO QHS 04/01/20 Darbepoetin Andrei in Polysorbat 0.4 ml IM TH 04/29/20 [Aranesp] Furosemide [Lasix] 20 mg PO MOWEFR 04/29/20 Hydrocodone Bitartrate 0.5 tab PO DAILY PRN PRN 04/29/20 Metoprolol(XL)Succ [Toprol Xl 25 mg PO DAILY 04/29/20 (Beta Jeremy)] Warfarin Sodium 0.5 mg PO DAILY 04/29/20 Warfarin [Coumadin (PBKC)] 1 mg PO DAILY 04/29/20 Surgical History: Surgical History (Last Reviewed 04/01/20 @ 16:[address] Eddie Mendoza MD) Presence of permanent cardiac pacemaker (Resolved) Onset Date: 08/30/18 Z95.0 Implant: 07/31/2008; PPM Generator Change - [employer], Accolade MR 08/30/2018 History of mitral valve replacement with mechanical valve (Resolved) Onset Date: 07/22/08 Z95.[address] Alex mechanical valve History of cardioversion Onset Date: 10/2015 Z98.890 History of incision of pericardium Z98.890 for pericardial effusion History of left heart catheterization Onset Date: 07/17/08 Z98.890 Surgical History: - - Mitral valve replacement with mechanical valve. Psychiatric History: No pertinent psych hx EXPERIENCE SPECIALIST History: No pertinent EXPERIENCE SPECIALIST history Lives: Spouse/ Significant Other Smoking Status: Current every day smoker Tobacco Use: Cigarettes Alcohol: None Drugs: None - *Family History Paternal Family History: Family History (Last Reviewed 04/29/20 @ 14:02 by JEREMIAS Negrete) Mother Cancer History Items: No pertinent history Maternal Family History: Family History (Last Reviewed 04/29/20 @ 14:02 by JEREMIAS Negrete) Mother Cancer History Items: No pertinent history Review of Systems Constitutional: Reports: Weakness, Fatigue. Denies: Chills, Fever, Weight Change HEENT: Denies: Head Aches, Sinus Congestion, Sinus Drainage Cardiovascular: Denies: Chest Pain, Palpitations Respiratory: Reports: Cough. Denies: Shortness of Breath, Shortness of breath at rest, Sputum production, Wheezing Gastrointestinal: Reports: Melena - chronic. Denies: Abdominal Pain, Diarrhea, Nausea, Vomiting Genitourinary: Denies: Dysuria, Hematuria, Urgency Musculoskeletal: Denies: Joint Pain, Joint Tenderness, Muscle pain Skin: Denies: Lesions, Rash, Wounds Neurological: Denies: Confusion, Focal weakness, Numbness, Tingling Psychiatric: Denies: Anxiety, Depression, Homicidal Ideations, Suicidal Ideations Hematologic/ Lymphatic: Reports: Anemia, Hx of blood transfusion. Denies: Easy Bruising, Easy Bleeding VTE Information - Inpt Only VTE Present on Admission: No VTE Mechan Device Prophylaxis: None VTE Pharm Prophylaxis ordered?: Yes - Physical Exam Vitals/I&O's: Vital Signs Temp Pulse Resp BP Pulse Ox 98.7 F 98 18 50/28 L 100 04/29/20 13:39 04/29/20 13:39 04/29/20 13:39 04/29/20 13:39 04/29/20 13:39 Oxygen Delivery Method Room Air Weight: 118 lb Body Mass Index (BMI) 21.5 Finger Stick Blood Glucose 194 General: Alert, Oriented x3, Cooperative HEENT: Atraumatic, PERRLA, EOMI, Normocephalic, - - pale conjunctivae Neck: Supple, No JVD, Negative Carotid Bruits Lungs: Clear to auscultation, Normal air movement Cardiovascular: Regular rate, No murmurs, Murmur - 3/6 holosystolic murmur audible loudly across chest Abdomen: Bowel Sounds Present, Soft, Non Tender Extremities: No edema, Capillary Refill Less than 3 Seconds Skin: No rashes, No breakdown, - - generalized pallor Musculoskeletal: No Tenderness to Palpation of Joints or Extremities Neurological: Cranial nerves II-XII grossly intact Psych/Mental Status: Normal Affect, Appropriate, Alert and oriented to time, place, person, mood and affect Laboratory Results 04/29/20 12:20: WBC 3.3 L, RBC 1.82 L, Hgb 5.6 L*, Hct 18.3 L, MCV 100.5 H, MCH 30.8, MCHC 30.6 L, RDW Std Deviation 58.0 H, RDW Coeff of Uriel 16.7 H, Plt Count 93 L, MPV 11.4, Immature Gran % (Auto) 0.600, Neut % (Auto) 82.9 H, Lymph % (Auto) 11.1 L, Perry % (Auto) 5.1, Eos % (Auto) 0.0, Baso % (Auto) 0.3, Absolute Neuts (auto) 2.8, Absolute Lymphs (auto) 0.37 L, Nucleated RBC % 0, Differential Comment , Diff Path Review May foll, Platelet Estimate MKD DEC, Hypochromasia 1+, Microcytosis 1+ 04/29/20 12:20: PT 44.4 H, INR 4.7 H* 04/29/20 12:20: Sodium 140, Potassium 4.1, Chloride 110 H, Carbon Dioxide 25.0, Anion Gap 5, BUN 37 H, Creatinine 1.67 H, Estim Creat Clear Calc 22.31, Est GFR (MDRD) Af Amer 38 L, Est GFR (MDRD) Non-Af 32 L, BUN/Creatinine Ratio 22.2 H, Glucose 197 H, Calcium 8.1 L 04/29/20 12:20: Blood Type Pending, Antibody Screen Pending Current Medications Sodium Chloride () 1,000 mls @ 999 mls/hr IV .Q1H1M ONE Stop: 04/29/20 14:42 Assessment/Plan All Active Problems (Last Reviewed 04/01/20 @ 16:[address] Eddie Mendoza MD) Presence of permanent cardiac pacemaker (Resolved 08/30/18) History of mitral valve replacement with mechanical valve (Resolved 07/22/08) Anemia (Acute) 1. Acute on chronic anemia - in the presence of pancytopenia. presumed GI loss with unclear etiology - extensive workup in the past. Pt of Dr. Thomas. T&C 3 units PRBC. Continue PO iron, b12, and folate. Continue PO protonix. INR elevated (goal 2.5-3.5), hold warfarin and repeat INR in AM. Pt also receives weekly darbepoetin. Defer further workup unless she does not appropriately improve with PRBC. 2. Mechanical mitral valve - inr goal 2.5-3.5. As above hold for elevated INR. 3. 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 hypothyroidism - synthroid 4. Malnutrition - behavioral instructor consult 5. COPD, chronic hypoxic resp failure - no exacerbation - baseline o2 2 lpm in the evening. 6. Nicotine abuse - 1-1.5 ppd smoker. provide patch DVT ppx: warfarin DC planning: PTOT evals, increased weakness. This patient was seen by Royer Oviedo PA-C under the supervision of Doctor Jarvis]. <Michelle Conley - Last Filed: 04/29/20 16:30> History of Present Illness Date of Admission: 04/29/20 I agree with the above and the following is a refection of my independent history and PE. The patient is a 79 year old F who has a h/o chronic anemia that has required recurrent transfusions per hematology. She was sent to the ED today by Dr. Thomas because her hgb was lower than it normally is when she requires transfusions. She gets blood work every to assess her hgb. She has had an extensive w/u for her anemia and no etiology has been found. She does have a mechanical mitral valve for which she takes coumadin and her INR today is 4.7 and on last check it was 2.8. She takes 1.5 mg of coumadin and has been stable on this dose but does admit her diet is poor. Her hgb in the ED was 5.6 with plt count of 93, which is stable for her; and her sCr was up slightly at 1.67 (baseline 1.2- 1.5) but appears that it fluctuates quite a bit. She states that she has dark stools but this is chronic for her. She denies ever having a BMAB. Past Medical History Medical History: Medical History (Last Reviewed 04/29/20 @ 16:[address] 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 (Chronic) Z79.01 Thrombocytopenia (Chronic) D69.6 COPD (chronic obstructive pulmonary disease) (Chronic) J44.9 GI bleeding (Chronic) K92.2 Ascites R18.8 Carotid bruit R09.89 GERD (gastroesophageal reflux disease) K21.9 Type 2 diabetes mellitus E11.9 GI bleed K92.2 Pericardial effusion I31.3 Pleural effusion J90 Non-rheumatic aortic stenosis (Inactive) I35.0 PVC's (premature ventricular contractions) (Inactive) I49.3 Pleural effusion, not elsewhere classified (Inactive) J90 Allergies amiodarone Adverse Reaction (Verified 04/29/20 12:05) vomiting, poor balance, dizziness digoxin Adverse Reaction (Verified 04/29/20 12:05) nausea, dry heaves lorazepam [From Ativan] Adverse Reaction (Verified 04/29/20 12:05) Unknown meloxicam [From Mobic] Adverse Reaction (Verified 04/29/20 12:05) Unknown nortriptyline HCl [From Pamelor] Adverse Reaction (Verified 04/29/20 12:05) Unknown zolpidem tartrate [From Ambien] Adverse Reaction (Verified 04/29/20 12:05) Unknown Surgical History: Surgical History (Last Reviewed 04/29/20 @ 16:[address] Michelle Conley DO) Presence of permanent cardiac pacemaker (Resolved) Onset Date: 08/30/18 Z95.0 Implant: 07/31/2008; PPM Generator Change - [employer], [employer] MR 08/30/2018 History of mitral valve replacement with mechanical valve (Resolved) Onset Date: 07/22/08 Z95.[address] [employer] mechanical valve History of cardioversion Onset Date: 10/2015 Z98.890 History of incision of pericardium Z98.890 for pericardial effusion History of left heart catheterization Onset Date: 07/17/08 Z98.890 Lives: Spouse/ Significant Other Smoking Status: Current every day smoker Tobacco Use: Cigarettes - 1-1.5PPD - *Family History Paternal Family History: Family History (Last Reviewed 04/29/20 @ 16:[address] Michelle Conley DO) Mother Cancer Maternal Family History: Family History (Last Reviewed 04/29/20 @ 16:[address] Michelle Conley DO) Mother Cancer Review of Systems Constitutional: Reports: Weakness, Fatigue. Denies: Anorexia, Chills, Fever, Night Sweats, Malaise, Weight Change Cardiovascular: Reports: Light Headedness. Denies: Chest Pain, Chest Pressure, Chest Tightness, Edema, Heaviness, Orthopnea, Paroxysmal Noc. Dyspnea, Syncope Respiratory: Reports: Cough - chronic, Shortness of breath upon exertion. Denies: Hemoptysis, Shortness of breath at rest, Sputum production, Wheezing Gastrointestinal: Reports: Melena. Denies: Abdominal Pain, Constipation, Diarrhea, Dyspepsia, Hematemesis, Hematochezia, Nausea, Vomiting Genitourinary: Denies: Dysuria, Hematuria, Urgency Musculoskeletal: Reports: Joint stiffness. Denies: Back Pain, Joint Pain, Joint swelling, Joint Tenderness, Muscle pain Skin: Denies: Dryness, Jaundice, Lesions, Pruritis, Rash, Skin Changes, Wounds Neurological: Denies: Confusion, Focal weakness, Numbness, Tingling, Tremor, Seizures Psychiatric: Denies: Anxiety, Depression Endocrine: Denies: Change in Body Habitus, Heat/ Cold Intolerance, Polydipsia Hematologic/ Lymphatic: Reports: Anemia, Hx of blood transfusion - usually every 2 weeks. Denies: Adenopathy, Easy Bruising, Easy Bleeding, Petechiae, Purpura - Physical Exam Vitals/I&O's: Vital Signs Temp Pulse Resp BP Pulse Ox 97.6 F L 96 16 55/38 L 92 04/29/20 15:47 04/29/20 15:47 04/29/20 15:47 04/29/20 15:47 04/29/20 15:47 Oxygen Delivery Method Room Air Weight: 53.388 kg Body Mass Index (BMI) 21.5 Finger Stick Blood Glucose 194 Intake and Output for Last 24 Hours 04/27/20 04/28/20 04/29/20 23:59 23:59 23:59 Intake Total 1000 / 999 Balance 1000 / 999 General: Alert, Oriented x3, Cooperative, No apparent distress, Well developed HEENT: Atraumatic, PERRLA, EOMI, Normocephalic, - Oral: Moist Mucosa, No Gingival or Mucosal Lesions/ Ulcerations, - - dentures- upper in place Neck: Supple, No JVD, Negative Carotid Bruits, Trachea Midline, Thyroid Normal Size and Texture Lungs: Clear to auscultation, No rhonchi, No wheeze, No rales, Diminished - diffusely Cardiovascular: Regular rate, Regular Rhythm, Normal S1, Normal S2, Murmur, No rub noted, No Gallop Abdomen: Bowel Sounds Present, Soft, Non Tender, Non-Distended, No Hepato- splenomegaly, No hernias noted Extremities: No clubbing, No cyanosis, No edema, Capillary Refill Less than 3 Seconds Skin: No rashes, No breakdown Musculoskeletal: No Tenderness to Palpation of Joints or Extremities Lymphatic: No Cervical, Supraclavicular, or Inguinal Adenopathy Neurological: Cranial nerves II-XII grossly intact, Deep Tendon Reflexes 2+/4 and Symmetrical, Neuro grossly intact, Motor Exam 5/5 strength throughout, Sensory exam intact to light touch and pain, Gait narrow based and stable Psych/Mental Status: Normal Affect, Appropriate, Alert and oriented to time, place, person, mood and affect Laboratory Results 04/29/20 12:20: WBC 3.3 L, RBC 1.82 L, Hgb 5.6 L*, Hct 18.3 L, MCV 100.5 H, MCH 30.8, MCHC 30.6 L, RDW Std Deviation 58.0 H, RDW Coeff of Uriel 16.7 H, Plt Count 93 L, MPV 11.4, Immature Gran % (Auto) 0.600, Neut % (Auto) 82.9 H, Lymph % (Auto) 11.1 L, Perry % (Auto) 5.1, Eos % (Auto) 0.0, Baso % (Auto) 0.3, Absolute Neuts (auto) 2.8, Absolute Lymphs (auto) 0.37 L, Nucleated RBC % 0, Differential Comment , Diff Path Review May foll, Platelet Estimate MKD DEC, Hypochromasia 1+, Microcytosis 1+ 04/29/20 12:20: PT 44.4 H, INR 4.7 H* 04/29/20 12:20: Sodium 140, Potassium 4.1, Chloride 110 H, Carbon Dioxide 25.0, Anion Gap 5, BUN 37 H, Creatinine 1.67 H, Estim Creat Clear Calc 22.31, Est GFR (MDRD) Af Amer 38 L, Est GFR (MDRD) Non-Af 32 L, BUN/Creatinine Ratio 22.2 H, Glucose 197 H, Calcium 8.1 L 04/29/20 12:20: Blood Type A POSITIVE, Antibody Screen NEGATIVE 04/29/20 12:20: Crossmatch See Detail Current Medications Acetaminophen (Tylenol) 650 mg PO Q6H PRN PRN PRN Reason: Pain or Fever Albuterol Sulfate (Ventolin Aerosols) 2.5 mg INHALATION Q6H PRN PRN PRN Reason: SOB &/OR WHEEZING Atorvastatin Calcium (Lipitor) 20 mg PO QHS [facility] Ferrous Sulfate (Ferrous Sulfate) 650 mg PO QHS [facility] Folic Acid (Folic Acid) 1 mg PO DAILY@0800 [facility] Levothyroxine Sodium (Synthroid) 75 mcg PO DAILY [facility] Nicotine (Nicoderm Cq (Pbkc)) 21 mg TRANSDERM. DAILY [facility] Non-Formulary Medication (Magnesium) 250 mg PO DAILY [facility] Non-Formulary Medication (Cholecalciferol (Vitamin D3) [Vitamin D3]) 1,000 unit PO DAILY [facility] Non-Formulary Medication (Cyanocobalamin (Vitamin B-12) [Vitamin B12]) 2,500 mcg PO DAILY [facility] Non-Formulary Medication (Darbepoetin Andrei In Polysorbat [Aranesp]) 0.4 ml IM TH [facility] Non-Formulary Medication (Hydrocodone Bitartrate) 0.5 tab PO DAILY PRN PRN PRN Reason: NOT SPECIFIED Non-Formulary Medication (Venlafaxine Hcl) 37.5 mg PO BID [facility] Ondansetron HCl (Zofran) 4 mg PO Q6H PRN PRN PRN Reason: NAUSEA Pantoprazole Sodium (Protonix) 40 mg PO DAILY [facility] Potassium Chloride (K-Dur) 20 meq PO DAILY [facility] Sodium Chloride () 10 - 40 ml IV UD PRN PRN Reason: SALINE FLUSH Assessment/Plan I agree with the above and the following is a refection of my independent history and PE. 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 Thomas) -Hold BP meds today -suspect BP readings are not accurate as pt has excellent pedal pulses B and is sitting upright with normal mentation and no lightheadedness -repeat BMP in am -cont effexor -cont PPI -continue levothyroxine Inpatient E&M: 29114 Init Hosp L3
[2020-04-29] MEDS: 0.9% Normal Saline 1,000 ML 999 ML IV (14:04)
--- NOTE | 2020-04-29 14:04 | ED.RN ---
DR MARQUEZ, JEREMIAS THAO AND DR BLISS AT BEDSIDE. BP CHECKED AGAIN MULTIPLE TIMES IN BOTH ARMS, BP RUNS ABOUT THE SAME. THE PT CONTINUES TO STATE THIS IS NORMAL FOR ME. PER DR DIAZ AND DR BLISS, THESE BP'S ARE NOT ACCURATE DUE TO HER EXCELLENT MENTATION AND BOUNDING PERIPHERAL PULSES. TAPPER BALANCE WHEEL SCREW HOLE MADE AWARE.
[2020-04-29] MEDS: 0.9% Saline Lock 10 ML Syringe IV (20:15)
[2020-04-29] MEDS: Venlafaxine HCl 75 MG Tablet 37.5 MG PO (21:27)
[2020-04-29] MEDS: Ferrous Sulfate 325 MG Tablet 650 MG PO (21:27)
[2020-04-29] MEDS: Atorvastatin Calcium 20 MG Tablet PO (21:28)
[2020-04-30] VITALS (38 sets, daily range): BP systolic 47–166; BP diastolic 27–97; PULSE 70–114; RESP 16–30; TEMP 36.1–37.1; O2SAT 95–100
--- NOTE | 2020-04-30 02:35 | NURSING ---
Black/tarry stool with small amount of bright red blood noted, pt has chronically black stools
--- NOTE | 2020-04-30 04:37 | PCM.PN.BLA ---
Progress Note Nurse reports bright black stools per rectum with clots. Patient with hypotension. On presentation her hypertension was presumed as inaccurate since she was mentating appropriately. On presentation INR was supratherapeutic. Will give normal saline bolus. Change Protonix 40 mg daily to Protonix IV drip. Reportedly patient does not want any further work-up. If patient agrees to further work-up will consult GI. STROKE Vital Signs/Narrative: Vital Signs Temp Pulse Resp BP Pulse Ox 04/30/20 03:53 100 04/30/20 03:45 97.5 F L 102 H 18 81/51 L 100 04/30/20 01:42 97.7 F L 102 H 18 63/46 L 99
[2020-04-30] MEDS: Dicyclomine 10 MG Capsule PO ×2 (04:44→11:44)
[2020-04-30] MEDS: 0.9% Normal Saline 1,000 ML 500 ML IV (04:59)
[2020-04-30 05:14] LABS: Absolute Lymphocyte Count 0.38 X10^3/uL (0.83-4.51); Absolute Neutrophil Count 4.8 X10^3/uL (2.0-7.7); Basophil# 0.02 X10^3/uL; Basophil% 0.4 % (0-1); Hematocrit 20.6 % (37-47); Hemoglobin 6.5 g/dL (12.0-15.0); Lymphocyte # 0.38 X10^3/ul (4.0); Lymphocyte % 6.8 % (19-41); Mean Corp Hgb Conc 31.6 g/dL (32-36); Mean Corpuscular Hgb 30.2 pg (27.0-32.0); Mean Corpuscular Volume 95.8 fL (81-99); Mean Platelet Vol. 10.9 fl (6.2-12.0); Monocyte# 0.29 X10^3/uL; Monocyte% 5.2 % (0-10); NRBC Flagged by Analyzer 0 % (0-5); Neutrophil # 4.84 X10^3/uL (2.7-7.7); Neutrophil % 86.5 % (47-70); POSITIVE COUNT YES; POSITIVE DIFFERENTIAL YES; Platelet Count 93 K/mm3 (150-450); RBC Distribution Width CV 17.8 % (11.6-14.6); RBC Distribution Width SD 59.4 fl (35.1-43.9); Red Blood Count 2.15 M/mm3 (4.2-5.4); White Blood Count 5.6 K/mm3 (4.4-11.0)
[2020-04-30 05:18] LABS: Differential Indicated SCAN CRITERIA MET
[2020-04-30 05:20] LABS: Prothrombin Time (Protime)PT. 66.8 SECONDS (11.7-14.9)
[2020-04-30 05:25] LABS: International Normalized Ratio 7.8
--- NOTE | 2020-04-30 05:52 | NURSING ---
Dr. Torres notified of INR 7.8, Hbg 6.5, Pt currently having loose bloody stool, c/o SOB and feeling lightheaded. Will transfer pt to ICU. Report called to ANRDES De Leon.
--- NOTE | 2020-04-30 06:17 | NURSING ---
, Zia, aware of transfer.
--- NOTE | 2020-04-30 06:23 | NURSING ---
0608: Patient transferred into ICU 05 in stable condition. Belongings include glasses, upper denture, cell phone, and clothing.
[2020-04-30 06:32] LABS: Differential Comment SCANNED
--- NOTE | 2020-04-30 06:38 | CON.PCM_ITS ---
Problem List (1) Anemia Status: Acute Qualifiers: Anemia type: unspecified type Qualified Code(s): D64.9 - Anemia, unspecified (2) GI bleeding Status: Chronic Qualifiers: GI bleed type/associated pathology: unspecified gastrointestinal hemorrhage type Qualified Code(s): K92.2 - Gastrointestinal hemorrhage, unspecified Reason for Consult Date of Consultation: 04/30/20 History of Present Illness: he patient is a 78-year-old female, with a history as outlined below, who presented to the emergency department with a hemoglobin of 5.6 and her INR being supra therapeutic. The patient is chronically followed by Dr. Thomas at [facility] due to a history of chronic anemia. The patient has had an extensive work-up through the [facility], including multiple different GI works up with upper and lower endoscopies, along with capsule endoscopy. 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 The patient was also noted diverticulosis of the sigmoid colon. She was treated at that time with argon plasma coagulation. The patient also has a history of coronary artery disease, mitral valve disease status post replacement with mechanical valve, along with persistent atrial fibrillation. She is currently followed by Dr. Mendoza of cardiology. Patient has had a rather exhaustive work-up for her chronic anemia. With numerous endoscopies both upper and lower and only finding the duodenal vascular ectasias. While on the floor she was reportedly having bloody bowel movements and her INR had increased to above 7. She is currently in the intensive care unit going to be receiving IV vitamin K as well as fresh frozen plasma. Past Medical History Past Medical History (Chronic Problems): Chronic Problems (Last Reviewed 04/29/20 @ 16:[address] Michelle Conley DO) Pancytopenia (Chronic) Hypotension (Chronic) Tachycardia-bradycardia syndrome (Chronic) Nonrheumatic mitral (valve) insufficiency (Chronic) Chronic atrial fibrillation (Chronic) Typical atrial flutter (Chronic) Non-rheumatic tricuspid valve insufficiency (Chronic) Secondary pulmonary hypertension (Chronic) HLD (hyperlipidemia) (Chronic) Nicotine dependence (Chronic) MCFP current use of anticoagulant (Chronic) Thrombocytopenia (Chronic) COPD (chronic obstructive pulmonary disease) (Chronic) GI bleeding (Chronic) Medical History: Medical History (Last Reviewed 04/30/20 @ 06:[address] Zia Banks MD) Hypotension (Chronic) I95.9 Tachycardia-bradycardia syndrome (Chronic) I49.5 Nonrheumatic mitral (valve) insufficiency (Chronic) I34.0 Chronic atrial fibrillation (Chronic) I48.2 Typical atrial flutter (Chronic) I48.3 Non-rheumatic tricuspid valve insufficiency (Chronic) I36.1 Secondary pulmonary hypertension (Chronic) HLD (hyperlipidemia) (Chronic) E78.5 Nicotine dependence (Chronic) F17.200 Anemia (Acute) D64.9 MCFP current use of anticoagulant (Chronic) Z79.01 Thrombocytopenia (Chronic) D69.6 COPD (chronic obstructive pulmonary disease) (Chronic) J44.9 GI bleeding (Chronic) K92.2 Ascites R18.8 Carotid bruit R09.89 GERD (gastroesophageal reflux disease) K21.9 Type 2 diabetes mellitus E11.9 GI bleed K92.2 Pericardial effusion I31.3 Pleural effusion J90 Non-rheumatic aortic stenosis (Inactive) I35.0 PVC's (premature ventricular contractions) (Inactive) I49.3 Pleural effusion, not elsewhere classified (Inactive) J90 Allergies amiodarone Adverse Reaction (Verified 04/29/20 12:05) vomiting, poor balance, dizziness digoxin Adverse Reaction (Verified 04/29/20 12:05) nausea, dry heaves lorazepam [From Ativan] Adverse Reaction (Verified 04/29/20 12:05) Unknown meloxicam [From Mobic] Adverse Reaction (Verified 04/29/20 12:05) Unknown nortriptyline HCl [From Pamelor] Adverse Reaction (Verified 04/29/20 12:05) Unknown zolpidem tartrate [From Ambien] Adverse Reaction (Verified 04/29/20 12:05) Unknown Home Medications: Ambulatory Orders Medication Instructions Recorded Atorvastatin Calcium [Lipitor] 20 mg PO QHS 05/22/13 Levothyroxine [Synthroid] 75 mcg PO DAILY 04/01/15 Ferrous Sulfate 650 mg PO QHS 04/02/15 Folic Acid 1 mg PO DAILY@0800 04/30/15 Cyanocobalamin (Vitamin B-12) 2,500 mcg PO DAILY 06/10/16 [Vitamin B12] Magnesium 250 mg PO DAILY 05/24/17 Cholecalciferol (Vitamin D3) 1,000 unit PO DAILY 04/07/19 [Vitamin D3] Venlafaxine HCl 37.5 mg PO BID 04/07/19 albuterol sulfate 90 mcg/actuation 2 puff INHALATION Q6H PRN PRN #18 g 11/26/19 aerosol inhaler Pantoprazole Sodium [Protonix] 40 mg PO DAILY 01/24/20 Potassium Chloride [K-Dur] 20 meq PO DAILY 01/24/20 doxepin 25 mg capsule 25 mg PO QHS 04/01/20 Darbepoetin Andrei in Polysorbat 0.4 ml IM TH 04/29/20 [Aranesp] Furosemide [Lasix] 20 mg PO MOWEFR 04/29/20 Hydrocodone Bitartrate 0.5 tab PO DAILY PRN PRN 04/29/20 Metoprolol(XL)Succ [Toprol Xl 25 mg PO DAILY 04/29/20 (Beta Jermey)] Warfarin Sodium 0.5 mg PO DAILY 04/29/20 Warfarin [Coumadin (PBKC)] 1 mg PO DAILY 04/29/20 Surgical History: Surgical History (Last Reviewed 04/30/20 @ 06:[address] Zia Banks MD) Presence of permanent cardiac pacemaker (Resolved) Onset Date: 08/30/18 Z95.0 Implant: 07/31/2008; PPM Generator Change - [employer], [employer] MR 08/30/2018 History of mitral valve replacement with mechanical valve (Resolved) Onset Date: 07/22/08 Z95.2 #[address] [employer] mechanical valve History of cardioversion Onset Date: 10/2015 Z98.890 History of incision of pericardium Z98.890 for pericardial effusion History of left heart catheterization Onset Date: 07/17/08 Z98.890 Surgical History: - - Mitral valve replacement with mechanical valve. Psychiatric History: No pertinent psych hx [employer] History: No pertinent [employer] history Lives: Spouse/ Significant Other Smoking Status: Current every day smoker Tobacco Use: Cigarettes - 1-1.5PPD Alcohol: None Drugs: None - *Family History Paternal Family History: Family History (Last Reviewed 04/29/20 @ 16:[address] Michelle Conley DO) Mother Cancer History Items: No pertinent history Maternal Family History: Family History (Last Reviewed 04/29/20 @ 16:[address] Michelle Conley DO) Mother Cancer History Items: No pertinent history Review of Systems Constitutional: Reports: Malaise, Weakness Cardiovascular: Denies: Chest Pain, Chest Pressure, Chest Tightness, Palpitations Respiratory: Denies: Cough, Hemoptysis, Shortness of breath at rest, Shortness of breath upon exertion, Wheezing Gastrointestinal: Denies: Abdominal Pain, Constipation, Diarrhea, Hematemesis, Nausea, Melena, Vomiting - Physical Exam Vitals/I&O's: Vital Signs Temp Pulse Resp BP Pulse Ox 97.5 F L 100 28 H 55/39 L 74 04/30/20 05:42 04/30/20 06:35 04/30/20 05:42 04/30/20 05:42 04/30/20 05:42 Oxygen Flow Rate (L/min) 2 Oxygen Delivery Method Room Air Weight: 117 lb 11.2 oz Body Mass Index (BMI) 21.5 Finger Stick Blood Glucose 194 Intake and Output for Last 24 Hours 04/28/20 04/29/20 04/30/20 23:59 23:59 23:59 Intake Total 3160 / 3160 Balance 3160 / 3160 General: Alert, Oriented x3 Lungs: Clear to auscultation Cardiovascular: Regular rate, Regular Rhythm, No murmurs Abdomen: Bowel Sounds Present, Soft, Non Tender, Non-Distended Laboratory Results 04/29/20 12:20: WBC 3.3 L, RBC 1.82 L, Hgb 5.6 L*, Hct 18.3 L, MCV 100.5 H, MCH 30.8, MCHC 30.6 L, RDW Std Deviation 58.0 H, RDW Coeff of Uriel 16.7 H, Plt Count 93 L, MPV 11.4, Immature Gran % (Auto) 0.600, Neut % (Auto) 82.9 H, Lymph % (Auto) 11.1 L, Braxton % (Auto) 5.1, Eos % (Auto) 0.0, Baso % (Auto) 0.3, Absolute Neuts (auto) 2.8, Absolute Lymphs (auto) 0.37 L, Nucleated RBC % 0, Differential Comment , Diff Path Review December, Platelet Estimate MKD DEC, Hypochromasia 1+, Microcytosis 1+ 04/29/20 12:20: PT 44.4 H, INR 4.7 H* 04/29/20 12:20: Sodium 140, Potassium 4.1, Chloride 110 H, Carbon Dioxide 25.0, Anion Gap 5, BUN 37 H, Creatinine 1.67 H, Estim Creat Clear Calc 22.31, Est GFR (MDRD) Af Amer 38 L, Est GFR (MDRD) Non-Af 32 L, BUN/Creatinine Ratio 22.2 H, Glucose 197 H, Calcium 8.1 L 04/29/20 12:20: Blood Type A POSITIVE, Antibody Screen NEGATIVE 04/29/20 12:20: Crossmatch See Detail 04/29/20 12:20: Crossmatch See Detail 04/30/20 05:04: WBC 5.6, RBC 2.15 L, Hgb 6.5 L, Hct 20.6 L, MCV 95.8, MCH 30.2, MCHC 31.6 L, RDW Std Deviation 59.4 H, RDW Coeff of Uriel 17.8 H, Plt Count 93 L, MPV 10.9, Immature Gran % (Auto) 1.100 H, Neut % (Auto) 86.5 H, Lymph % (Auto) 6.8 L, Braxton % (Auto) 5.2, Eos % (Auto) 0.0, Baso % (Auto) 0.4, Absolute Neuts (auto) 4.8, Absolute Lymphs (auto) 0.38 L, Nucleated RBC % 0, Differential Comment SCANNED 04/30/20 05:04: PT 66.8 H, INR 7.8 H* Current Medications Acetaminophen (Tylenol) 650 mg PO Q6H PRN PRN PRN Reason: Pain 1-10 or Fever Hydrocodone Bitart/Acetaminophen ([place] 5mg-325mg) 0.5 tablet PO DAILY PRN PRN PRN Reason: Pain Score 1-10/10 Albuterol Sulfate (Ventolin Aerosols) 2.5 mg INHALATION Q6H PRN PRN PRN Reason: SOB &/OR WHEEZING Atorvastatin Calcium (Lipitor) 20 mg PO QHS [facility] Last Admin: 04/29/20 21:28 Dose: 20 mg Documented by: Cholecalciferol (Vitamin D (25mcg)) 1,000 unit PO DAILY [facility] Cyanocobalamin (Vitamin B12) 2,500 mcg PO DAILY [facility] Dicyclomine HCl (Bentyl) 10 mg PO TIDAC [facility] Last Admin: 04/30/20 04:44 Dose: 10 mg Documented by: Ferrous Sulfate (Ferrous Sulfate) 650 mg PO QHS [facility] Last Admin: 04/29/20 21:27 Dose: 650 mg Documented by: Folic Acid (Folic Acid) 1 mg PO DAILY@0800 [facility] Pantoprazole Sodium 80 mg/ (Sodium Chloride) 100 mls @ 10 mls/hr CONT INF Q10H [facility] Last Admin: 04/30/20 04:59 Dose: 10 mls/hr Documented by: Levothyroxine Sodium (Synthroid) 75 mcg PO DAILY@0600 [facility] Last Admin: 04/30/20 05:49 Dose: Not Given Documented by: Magnesium Chloride (Mag64) 128 mg PO DAILY [facility] Nicotine (Nicoderm Cq (Pbkc)) 21 mg TRANSDERM. DAILY [facility] Last Admin: 04/29/20 16:50 Dose: Not Given Documented by: Ondansetron HCl (Zofran Odt) 4 mg PO Q6H PRN PRN PRN Reason: NAUSEA Potassium Chloride (K-Dur) 20 meq PO DAILY@0800 [facility] Sodium Chloride () 10 - 40 ml IV UD PRN PRN Reason: SALINE FLUSH Last Admin: 04/29/20 20:15 Dose: 12 ml Documented by: Venlafaxine HCl (Effexor) 37.5 mg PO BID [facility] Last Admin: 04/29/20 21:27 Dose: 37.5 mg Documented by: Assessment/Plan All Active Problems (Last Reviewed 04/29/20 @ 16:[address] Michelle Conley, DO) Presence of permanent cardiac pacemaker (Resolved 08/30/18) History of mitral valve replacement with mechanical valve (Resolved 07/22/08) Anemia (Acute) I do not think there is any value in doing an emergent upper scope on this patient at this time given the fact that she is currently not actively vomiting blood. Agree with aggressive reversal of her anticoagulation. Once her INR is corrected if she is continuing to bleed possibly a bleeding scan would be appropriate. 1 must also consider referral back to a tertiary referral center given her exhaustive work-up which really has not yielded any obvious source of this GI bleed. Office Visits / Consults: [id number] IP Consult L3
--- NOTE | 2020-04-30 06:51 | NURSING ---
Adjusted vitals entered at 0542. entered 74% instead of the actual reading of 96% on room air.
--- NOTE | 2020-04-30 08:49 | CON.PCM_ITS ---
Problem List (1) Pancytopenia Status: Chronic (2) Hypotension Status: Chronic Qualifiers: Hypotension type: hypotension due to hypovolemia Qualified Code(s): I95.89 - Other hypotension; E86.1 - Hypovolemia (3) Presence of permanent cardiac pacemaker Status: Resolved Comment: Implant: 07/31/2008; PPM Generator Change - [employer], [employer] MR 08/30/2018 (4) Tachycardia-bradycardia syndrome Status: Chronic (5) History of mitral valve replacement with mechanical valve Status: Resolved Comment: #[address] 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 (10) Thrombocytopenia Status: Chronic (11) COPD (chronic obstructive pulmonary disease) Status: Chronic Qualifiers: (12) GI bleeding Status: Chronic Qualifiers: GI bleed type/associated pathology: unspecified gastrointestinal hemorrhage type Qualified Code(s): K92.2 - Gastrointestinal hemorrhage, unspecified Reason for Consult Date of Consultation: 04/30/20 Reason for Consultation: Hypotension History of Present Illness: The patient is a 79 year old F, with past medical history listed below and well- known to me from previous admissions and outpatient office, who presented to [facility] on 04/29/2020 secondary to abnormal labs. Patient has a history of anemia secondary to chronic GI bleed requiring transfusions. Patient had routine labs done on the day of presentation was noted to have a hemoglobin of 5.4. Patient's last transfusion was 2 weeks ago. Patient has had multiple investigations previously with no etiology noted. Patient had denied any syncope, chest pain or shortness of breath. In the ER, patient's repeat hemoglobin was 5.6. Chemistry showed a creatinine of 1.67 and an INR of 4.7. Patient stated her INR was 2.7 earlier in the week. Patient was typed and crossed for 2 units of packed red blood cells and admitted to the hospital in observation status. Overnight, patient was noted to have decreased blood pressures, but was mentating, so was monitored clinically. Patient was monitored on MedSurg. Patient was given some fluid boluses and switched to a Protonix IV drip. At that time, patient had denied any further work-up with surgery. However, this morning, patient was noted to have a bloody bowel movement with bright red blood and clots. Repeat labs show an increased INR to 7.8. Patient was given vitamin K, FFP in order 2 units of packed red blood cells. Patient was transferred to the intensive care unit for further evaluation. On arrival to the intensive care unit, patient reported some dizziness with change in body position. Patient was noted to be hypotensive and pale in appearance, but was mentating appropriately. Patient denied any different abdominal pain, but did have some mild nausea. Patient denied any recent trauma. Patient has not had any fever, chills or productive cough reported. There have been discussions with the patient in the past about possible port placement. Patient states that she has refused to this point as it would be just 1 more thing to deal with. Patient has required multiple attempts at peripheral IVs. Review of systems otherwise negative from a constitutional, HEENT, respiratory, cardiovascular, GI, genitourinary, musculoskeletal, skin, neurologic, psychiatric and hematologic system unless stated above. Past Medical History Past Medical History (Chronic Problems): Chronic Problems (Last Reviewed 04/30/20 @ 06:[address] 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) Z79.01 Thrombocytopenia (Chronic) D69.6 COPD (chronic obstructive pulmonary disease) (Chronic) J44.9 GI bleeding (Chronic) K92.2 Ascites R18.8 Carotid bruit R09.89 GERD (gastroesophageal reflux disease) K21.9 Type 2 diabetes mellitus E11.9 GI bleed K92.2 Pericardial effusion I31.3 Pleural effusion J90 Non-rheumatic aortic stenosis (Inactive) I35.0 PVC's (premature ventricular contractions) (Inactive) I49.3 Pleural effusion, not elsewhere classified (Inactive) J90 Allergies amiodarone Adverse Reaction (Verified 04/29/20 12:05) vomiting, poor balance, dizziness digoxin Adverse Reaction (Verified 04/29/20 12:05) nausea, dry heaves lorazepam [From Ativan] Adverse Reaction (Verified 04/29/20 12:05) Unknown meloxicam [From Mobic] Adverse Reaction (Verified 04/29/20 12:05) Unknown nortriptyline HCl [From Pamelor] Adverse Reaction (Verified 04/29/20 12:05) Unknown zolpidem tartrate [From Ambien] Adverse Reaction (Verified 04/29/20 12:05) Unknown Home Medications: Ambulatory Orders Medication Instructions Recorded Atorvastatin Calcium [Lipitor] 20 mg PO QHS 05/22/13 Levothyroxine [Synthroid] 75 mcg PO DAILY 04/01/15 Ferrous Sulfate 650 mg PO QHS 04/02/15 Folic Acid 1 mg PO DAILY@0800 04/30/15 Cyanocobalamin (Vitamin B-12) 2,500 mcg PO DAILY 06/10/16 [Vitamin B12] Magnesium 250 mg PO DAILY 05/24/17 Cholecalciferol (Vitamin D3) 1,000 unit PO DAILY 04/07/19 [Vitamin D3] Venlafaxine HCl 37.5 mg PO BID 04/07/19 albuterol sulfate 90 mcg/actuation 2 puff INHALATION Q6H PRN PRN #18 g 11/26/19 aerosol inhaler Pantoprazole Sodium [Protonix] 40 mg PO DAILY 01/24/20 Potassium Chloride [K-Dur] 20 meq PO DAILY 01/24/20 doxepin 25 mg capsule 25 mg PO QHS 04/01/20 Darbepoetin Andrei in Polysorbat 0.4 ml IM TH 04/29/20 [Aranesp] Furosemide [Lasix] 20 mg PO MOWEFR 04/29/20 Hydrocodone Bitartrate 0.5 tab PO DAILY PRN PRN 04/29/20 Metoprolol(XL)Succ [Toprol Xl 25 mg PO DAILY 04/29/20 (Beta Jeremy)] Warfarin Sodium 0.5 mg PO DAILY 04/29/20 Warfarin [Coumadin (PBKC)] 1 mg PO DAILY 04/29/20 Surgical History: Surgical History (Last Reviewed 04/30/20 @ 06:[address] Zia Banks MD) Presence of permanent cardiac pacemaker (Resolved) Onset Date: 08/30/18 Z95.0 Implant: 07/31/2008; PPM Generator Change - [employer], [employer] MR 08/30/2018 History of mitral valve replacement with mechanical valve (Resolved) Onset Date: 07/22/08 Z95.[address] Alex mechanical valve History of cardioversion Onset Date: 10/2015 Z98.890 History of incision of pericardium Z98.890 for pericardial effusion History of left heart catheterization Onset Date: 07/17/08 Z98.890 Surgical History: - - Mitral valve replacement with mechanical valve. 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 Michelle Conley DO) Mother Cancer History Items: No pertinent history Maternal Family History: Family History (Last Reviewed 04/29/20 @ 16:[address] Michelle Conley DO) Mother Cancer History Items: No pertinent history Review of Systems Comment: See HPI Objective: No imaging has been completed during this hospitalization. Patient gets most of her studies at the [facility], so last echocardiogram was from 2018 showing an EF of 58% with dilated right ventricle and biatrial enl argement. Patient had a Saint Alex prosthetic mitral valve with a peak gradient of 25 mmHg and a mean gradient of 12 mmHg at that time. There was also severe 3-4+ tricuspid valve regurgitation and a pulmonary artery systolic pressure of 73mmHg with a right atrial pressure of 10. Patient's last pulmonary function test was completed in December of this year showing a partially reversible mixed ventilatory defect (FVC 68%, FEV1 67%, TLC 74%, DLCO 36%) - Physical Exam Vitals/I&O's: Vital Signs Temp Pulse Resp BP Pulse Ox 36.1 C L 101 H 21 H 47/27 L 99 04/30/20 07:05 04/30/20 07:30 04/30/20 07:05 04/30/20 07:05 04/30/20 07:15 Oxygen Flow Rate (L/min) 1.5 Oxygen Delivery Method Nasal Cannula Weight: 53.388 kg Body Mass Index (BMI) 21.5 Finger Stick Blood Glucose 194 Intake and Output for Last 24 Hours 04/28/20 04/29/20 04/30/20 23:59 23:59 23:59 Intake Total 3160 / 3160 1050.5 / 1050.5 Balance 3160 / 3160 1050.5 / 1050.5 General: Alert, Oriented x3, Cooperative, - - Very pale appearance. Appears older than stated age. Frail. HEENT: Atraumatic, PERRLA, EOMI, Normocephalic, - - Pale conjunctiva. Oral: No Gingival or Mucosal Lesions/ Ulcerations, Dry Mucosa Neck: Supple, No JVD, No Nodes, Trachea Midline Lungs: No rhonchi, No wheeze, No rales, Diminished, - - Symmetric expansion. No dullness to percussion. Cardiovascular: Normal S1, Normal S2, Irregular Rate, Murmur - Grade 3 out of 6 Abdomen: Bowel Sounds Present, Soft, Non Tender, Distended - Slightly Extremities: No clubbing, No cyanosis, No edema, Diminished Peripheral Pulses Skin: No rashes, No breakdown Musculoskeletal: No Tenderness to Palpation of Joints or Extremities Lymphatic: No Cervical, Supraclavicular, or Inguinal Adenopathy Neurological: Cranial nerves II-XII grossly intact, Neuro grossly intact, Motor Exam 5/5 strength throughout Psych/Mental Status: Alert and oriented to time, place, person, mood and affect Laboratory Results 04/29/20 12:20: WBC 3.3 L, RBC 1.82 L, Hgb 5.6 L*, Hct 18.3 L, MCV 100.5 H, MCH 30.8, MCHC 30.6 L, RDW Std Deviation 58.0 H, RDW Coeff of Uriel 16.7 H, Plt Count 93 L, MPV 11.4, Immature Gran % (Auto) 0.600, Neut % (Auto) 82.9 H, Lymph % (Auto) 11.1 L, [place] % (Auto) 5.1, Eos % (Auto) 0.0, Baso % (Auto) 0.3, Absolute Neuts (auto) 2.8, Absolute Lymphs (auto) 0.37 L, Nucleated RBC % 0, Differential Comment , Diff Path Review Richa monroy, Platelet Estimate MKD DEC, Hypochromasia 1+, Microcytosis 1+ 04/29/20 12:20: PT 44.4 H, INR 4.7 H* 04/29/20 12:20: Sodium 140, Potassium 4.1, Chloride 110 H, Carbon Dioxide 25.0, Anion Gap 5, BUN 37 H, Creatinine 1.67 H, Estim Creat Clear Calc 22.31, Est GFR (MDRD) Af Amer 38 L, Est GFR (MDRD) Non-Af 32 L, BUN/Creatinine Ratio 22.2 H, Glucose 197 H, Calcium 8.1 L 04/29/20 12:20: Blood Type A POSITIVE, Antibody Screen NEGATIVE 04/29/20 12:20: Crossmatch See Detail 04/29/20 12:20: Crossmatch See Detail 04/30/20 05:04: WBC 5.6, RBC 2.15 L, Hgb 6.5 L, Hct 20.6 L, MCV 95.8, MCH 30.2, MCHC 31.6 L, RDW Std Deviation 59.4 H, RDW Coeff of Uriel 17.8 H, Plt Count 93 L, MPV 10.9, Immature Gran % (Auto) 1.100 H, Neut % (Auto) 86.5 H, Lymph % (Auto) 6.8 L, [place] % (Auto) 5.2, Eos % (Auto) 0.0, Baso % (Auto) 0.4, Absolute Neuts (auto) 4.8, Absolute Lymphs (auto) 0.38 L, Nucleated RBC % 0, Differential Comment SCANNED 04/30/20 05:04: PT 66.8 H, INR 7.8 H* Current Medications Acetaminophen (Tylenol) 650 mg PO Q6H PRN PRN PRN Reason: Pain 1-10 or Fever Hydrocodone Bitart/Acetaminophen (Alberta 5mg-325mg) 0.5 tablet PO DAILY PRN PRN PRN Reason: Pain Score 1-10/10 Albuterol Sulfate (Ventolin Aerosols) 2.5 mg INHALATION Q6H PRN PRN PRN Reason: SOB &/OR WHEEZING Atorvastatin Calcium (Lipitor) 20 mg PO QHS COUNT INCLUDES THE [facility] Last Admin: 04/29/20 21:28 Dose: 20 mg Documented by: Cholecalciferol (Vitamin D (25mcg)) 1,000 unit PO DAILY COUNT INCLUDES THE [facility] Cyanocobalamin (Vitamin B12) 2,500 mcg PO DAILY COUNT INCLUDES THE [facility] Dicyclomine HCl (Bentyl) 10 mg PO TIDAC COUNT INCLUDES THE [facility] Last Admin: 04/30/20 04:44 Dose: 10 mg Documented by: Ferrous Sulfate (Ferrous Sulfate) 650 mg PO QHS COUNT INCLUDES THE [facility] Last Admin: 04/29/20 21:27 Dose: 650 mg Documented by: Folic Acid (Folic Acid) 1 mg PO DAILY@0800 COUNT INCLUDES THE [facility] Pantoprazole Sodium 80 mg/ (Sodium Chloride) 100 mls @ 10 mls/hr CONT INF Q10H COUNT INCLUDES THE [facility] Last Admin: 04/30/20 04:59 Dose: 10 mls/hr Documented by: Levothyroxine Sodium (Synthroid) 75 mcg PO DAILY@0600 COUNT INCLUDES THE [facility] Last Admin: 04/30/20 05:49 Dose: Not Given Documented by: Magnesium Chloride (Mag64) 128 mg PO DAILY COUNT INCLUDES THE [facility] Nicotine (Nicoderm Cq (Pbkc)) 21 mg TRANSDERM. DAILY COUNT INCLUDES THE [facility] Last Admin: 04/29/20 16:50 Dose: Not Given Documented by: Ondansetron HCl (Zofran Odt) 4 mg PO Q6H PRN PRN PRN Reason: NAUSEA Potassium Chloride (K-Dur) 20 meq PO DAILY@0800 COUNT INCLUDES THE [facility] Sodium Chloride () 10 - 40 ml IV UD PRN PRN Reason: SALINE FLUSH Last Admin: 04/29/20 20:15 Dose: 12 ml Documented by: Venlafaxine HCl (Effexor) 37.5 mg PO BID COUNT INCLUDES THE [facility] Last Admin: 04/29/20 21:27 Dose: 37.5 mg Documented by: Assessment/Plan RECOMMENDATIONS: 1. Transfuse FFP and packed red blood cells. 2. Recheck INR following FFP 3. Encourage port placement as an outpatient 4. Continue to follow mentation 5. CODE STATUS as full code IMPRESSIONS: 1. Acute on chronic anemia secondary to chronic GI bleed The patient is followed longitudinally as an outpatient by Dr. Thomas at [facility]. She requires frequent transfusions. The patient has received a total of 3 units of packed red blood cells to date. Her presenting symptoms have improved. Given active bleeding, supratherapeutic INR is being addressed. Recommend continuing to hold Coumadin. Recheck H&H this afternoon. 2. Coagulopathy The patient did present to the hospital with a supratherapeutic INR on Coumadin. Patient has been given vitamin K and some FFP. Reassess INR following intervention. Unclear etiology of prolonged INR. 3. Hypovolemic hypotension secondary to chronic GI bleed While the patient is relatively hypotensive, she does report that her baseline blood pressures are typically in the 70s and 80s systolic. She is asymptomatic at this time and mentating appropriately. 4. Debility/nicotine abuse/chronic hypoxic respiratory failure secondary to COPD/malnutrition/mechanical heart valve/chronic A. fib Complicates care, management, recovery and prognosis. Patient does not appear to be in acute exacerbation of COPD at this time. Patient does use supplemental oxygen in the evening with sleep. This should be continued. Encourage smoking cessation. Dietitian has been consulted. Patient can be continued on baseline Synthroid therapy. Patient cannot be completely reversed on INR secondary to a Saint Alex valve replacement. Could initiate a heparin drip in the interim if control of INR becomes too difficult. Clarified patient is a full code Inpatient E&M: 93937 Init Hosp L3
--- NOTE | 2020-04-30 09:24 | CASEMGMT ---
According to the [facility] website, the following are in-network tertiary faciities: [facility], [facility], [facility], [facility], [facility], and . Reina CAMPOS CM
--- NOTE | 2020-04-30 11:20 | CASEMGMT ---
ANDRES ANGUIANO Face to Face with patient for initial transition planning/care coordination assessment. RN CM introduced self and role at [facility]. Patient lying in bed, alert and oriented. Patient willing to participate in assessment and is able to answer all questions appropriately. Care providers, pharmacy, and demographics verified. Patient wishes to discharge home, denies need for home health at this time. Patient states she has no further needs or concerns at this time. CM to follow for discharge planning needs that may arise. 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 Patient states she is independent at home. Transportation: self, DME/HHC: Patient states she has shower chair, cane, walker, wheelchair, grab bars, oxygen concentrator at HS 2lpm [employer], and nebulizer machine. Patient denies previous HHC or SNF. Disposition Plan: Patient to discharge home with family support and follow-up plans in place. Will monitor for need for therapy at discharge. Krysitn BLOOD, RN, CM
[2020-04-30] MEDS: Magnesium Chloride 64 MG Delay Rel.Tablet 128 MG PO (11:44)
[2020-04-30] MEDS: Venlafaxine HCl 75 MG Tablet 37.5 MG PO ×2 (11:44→22:10)
[2020-04-30] MEDS: Cyanocobalamin 500 MCG Tablet 2500 MCG PO (11:45)
[2020-04-30 13:05] LABS: Pathologist Review Reviewed
--- NOTE | 2020-04-30 13:32 | PN_ITS ---
Reason for Visit: anemia Subjective: Still with maroon stools. States her BP normally runs low. Vitals/I&O's: Vital Signs Temp Pulse Resp BP Pulse Ox 36.4 C L 104 H 24 H 80/60 L 100 04/30/20 12:44 04/30/20 12:44 04/30/20 12:44 04/30/20 12:44 04/30/20 12:44 Oxygen Flow Rate (L/min) 2 Oxygen Delivery Method Nasal Cannula Weight: 53.388 kg Body Mass Index (BMI) 21.5 Finger Stick Blood Glucose 194 Intake and Output for Last 24 Hours 04/28/20 04/29/20 04/30/20 23:59 23:59 23:59 Intake Total 3160 / 3160 1650.5 / 1650.5 Balance 3160 / 3160 1650.5 / 1650.5 General: Alert, No apparent distress, - - frail. cachectic HEENT: Atraumatic, Normocephalic Oral: Moist Mucosa, No Gingival or Mucosal Lesions/ Ulcerations Lungs: Clear to auscultation, Normal air movement, No rhonchi, No wheeze, No rales Cardiovascular: Regular rate, Regular Rhythm, Normal S1, Normal S2, No murmurs Abdomen: Bowel Sounds Present, Soft, Non Tender, Non-Distended, No Hepato- splenomegaly Extremities: No edema, No Calf Tenderness Skin: No rashes, No breakdown, - - pale Musculoskeletal: No Tenderness to Palpation of Joints or Extremities, No Muscle Wasting Psych/Mental Status: Normal Affect, Appropriate Laboratory Results 04/29/20 12:20: Diff Path Review Reviewed 04/29/20 12:20: Blood Type A POSITIVE, Antibody Screen NEGATIVE 04/29/20 12:20: Crossmatch See Detail 04/29/20 12:20: Crossmatch See Detail 04/30/20 05:04: WBC 5.6, RBC 2.15 L, Hgb 6.5 L, Hct 20.6 L, MCV 95.8, MCH 30.2, MCHC 31.6 L, RDW Std Deviation 59.4 H, RDW Coeff of Uriel 17.8 H, Plt Count 93 L, MPV 10.9, Immature Gran % (Auto) 1.100 H, Neut % (Auto) 86.5 H, Lymph % (Auto) 6.8 L, Lares % (Auto) 5.2, Eos % (Auto) 0.0, Baso % (Auto) 0.4, Absolute Neuts (auto) 4.8, Absolute Lymphs (auto) 0.38 L, Nucleated RBC % 0, Differential Comment SCANNED 04/30/20 05:04: PT 66.8 H, INR 7.8 H* Current Medications Acetaminophen (Tylenol) 650 mg PO Q6H PRN PRN PRN Reason: Pain 1-10 or Fever Hydrocodone Bitart/Acetaminophen (Fraser 5mg-325mg) 0.5 tablet PO DAILY PRN PRN PRN Reason: Pain Score 1-10/10 Albuterol Sulfate (Ventolin Aerosols) 2.5 mg INHALATION Q6H PRN PRN PRN Reason: SOB &/OR WHEEZING Atorvastatin Calcium (Lipitor) 20 mg PO QHS [facility] Last Admin: 04/29/20 21:28 Dose: 20 mg Documented by: Cholecalciferol (Vitamin D (25mcg)) 1,000 unit PO DAILY [facility] Last Admin: 04/30/20 11:45 Dose: 1,000 unit Documented by: Cyanocobalamin (Vitamin B12) 2,500 mcg PO DAILY [facility] Last Admin: 04/30/20 11:45 Dose: 2,500 mcg Documented by: Dicyclomine HCl (Bentyl) 10 mg PO TIDAC [facility] Last Admin: 04/30/20 11:44 Dose: 10 mg Documented by: Ferrous Sulfate (Ferrous Sulfate) 650 mg PO QHS [facility] Last Admin: 04/29/20 21:27 Dose: 650 mg Documented by: Folic Acid (Folic Acid) 1 mg PO DAILY@0800 [facility] Last Admin: 04/30/20 09:26 Dose: Not Given Documented by: Pantoprazole Sodium 80 mg/ (Sodium Chloride) 100 mls @ 10 mls/hr CONT INF Q10H [facility] Last Admin: 04/30/20 04:59 Dose: 10 mls/hr Documented by: Levothyroxine Sodium (Synthroid) 75 mcg PO DAILY@0600 [facility] Last Admin: 04/30/20 05:49 Dose: Not Given Documented by: Magnesium Chloride (Mag64) 128 mg PO DAILY [facility] Last Admin: 04/30/20 11:44 Dose: 128 mg Documented by: Nicotine (Nicoderm Cq (Pbkc)) 21 mg TRANSDERM. DAILY [facility] Last Admin: 04/30/20 11:38 Dose: Not Given Documented by: Ondansetron HCl (Zofran Odt) 4 mg PO Q6H PRN PRN PRN Reason: NAUSEA Potassium Chloride (K-Dur) 20 meq PO DAILY@0800 [facility] Last Admin: 04/30/20 09:26 Dose: Not Given Documented by: Sodium Chloride () 10 - 40 ml IV UD PRN PRN Reason: SALINE FLUSH Last Admin: 04/29/20 20:15 Dose: 12 ml Documented by: Venlafaxine HCl (Effexor) 37.5 mg PO BID [facility] Last Admin: 04/30/20 11:44 Dose: 37.5 mg Documented by: STROKE Vital Signs/Narrative: Vital Signs Temp Pulse Resp BP BP Pulse Ox 04/30/20 12:44 36.4 C L 104 H 24 H 80/60 L 100 04/30/20 12:00 36.3 C L 104 H 26 H 88/37 L 98 04/30/20 11:09 103 H 04/30/20 11:00 36.7 C 103 H 25 H 77/45 L 99 04/30/20 10:27 36.8 C 104 H 22 H 72/56 L 100 04/30/20 10:00 104 H 21 H 65/39 L 100 Medical Necessity - Tobacco Use Smoking Status: Current every day smoker Tobacco Use: Cigarettes - 1-1.5PPD Assessment/Plan All Active Problems (Last Reviewed 04/30/20 @ 06:[address] Zia Banks MD) Presence of permanent cardiac pacemaker (Resolved 08/30/18) History of mitral valve replacement with mechanical valve (Resolved 07/22/08) Anemia (Acute) Assessment: 1. acute blood anemia 2. GI bleed 3. supratherapeutic INR. 4. Mechanical MV 5. moderate protein malnutrition 6. chronic hypotension: asymptomatic. Questionable how accurrate BP reads are Plan * transfused now 3rd unit of PRBCs * received vitamin K and FFP for reversal of INR * no additional GI work at this institution, nor does patient want any additional work up * resume anticoagulation when safe * VTE prophylaxis with SCDs * no need for vasopressors Inpatient E&M: 38238 Subs Hosp L2
[2020-04-30 17:39] LABS: Hematocrit 23.1 % (37-47); Hemoglobin 7.4 g/dL (12.0-15.0)
[2020-04-30 17:50] LABS: International Normalized Ratio 1.4; Prothrombin Time (Protime)PT. 16.5 SECONDS (11.7-14.9)
[2020-04-30 18:28] LABS: Partial Thromboplast Time 33.6 Seconds (24.1-36.2)
[2020-04-30] MEDS: 0.9% Saline Lock 10 ML Syringe IV (18:40)
[2020-04-30] MEDS: Atorvastatin Calcium 20 MG Tablet PO (22:10)
[2020-04-30] MEDS: Ferrous Sulfate 325 MG Tablet 650 MG PO (22:11)
[2020-05-01] VITALS (30 sets, daily range): BP systolic 52–93; BP diastolic 37–64; PULSE 103–115; RESP 13–28; TEMP 35.9–36.9; O2SAT 94–100
[2020-05-01] MEDS: Heparin Injection (Vial) 5,000 UNIT/ML VIAL IV ×2 (00:41→17:18)
[2020-05-01 06:37] LABS: Hematocrit 22.1 % (37-47); Mean Corp Hgb Conc 31.7 g/dL (32-36); Mean Corpuscular Volume 94.8 fL (81-99); Mean Platelet Vol. 10.8 fl (6.2-12.0); POSITIVE COUNT YES; Platelet Count 61 K/mm3 (150-450); RBC Distribution Width CV 16.3 % (11.6-14.6); RBC Distribution Width SD 54.3 fl (35.1-43.9); Red Blood Count 2.33 M/mm3 (4.2-5.4)
[2020-05-01 06:49] LABS: Anion Gap 5 (5-15); BUN 34 mg/dL (7-18); BUN/Creat Ratio 26.8 RATIO (10-20); Calcium,Total 7.4 mg/dL (8.5-10.1); Chloride 117 mmol/L (98-107); Creatinine, Serum 1.27 mg/dL (0.55-1.02); EST Glomerular Filtration Rate 43 mL/min (>60); Est Glom Filt Rate - Afr Amer 52 mL/min (>60); Estimated Creatinine Clearance 29.34 ml/min; Glucose 179 mg/dL (74-106); Potassium 4.3 mmol/L (3.5-5.1); Sodium Level 144 mmol/L (136-145)
[2020-05-01 07:28] LABS: International Normalized Ratio 1.2; Prothrombin Time (Protime)PT. 15.1 SECONDS (11.7-14.9)
--- NOTE | 2020-05-01 07:50 | PCM.PN.INT ---
Subjective: Patient did okay overnight. Nursing reports continued watery bowel movements, but less blood and more brown stool has been reported. Patient reports that she is feeling subjectively improved, but did have some orthostatic symptoms overnight with trying to get to the bathroom. Patient did have to be started on a heparin drip yesterday secondary to complete reversal of INR. General: Alert, Oriented x3, Cooperative, No apparent distress, - - Pale complexion. No conversational dyspnea. HEENT: Atraumatic, PERRLA, EOMI, Normocephalic, - - Pale conjunctive a. No scleral icterus or injection noted Oral: Moist Mucosa, No Gingival or Mucosal Lesions/ Ulcerations Neck: Supple, No JVD, No Nodes, Trachea Midline Lungs: No rhonchi, No wheeze, No rales, Diminished, - - Symmetric expansion. Cardiovascular: Normal S1, Normal S2, Murmur, No rub noted, No Gallop, Tachycardic Abdomen: Bowel Sounds Present, Soft, Non Tender, Distended - Slightly Extremities: No clubbing, No cyanosis, No edema Skin: No rashes, No breakdown Musculoskeletal: No Tenderness to Palpation of Joints or Extremities Lymphatic: No Cervical, Supraclavicular, or Inguinal Adenopathy Neurological: Cranial nerves II-XII grossly intact, Neuro grossly intact, Motor Exam 5/5 strength throughout Psych/Mental Status: Alert and oriented to time, place, person, mood and affect Vital Signs Temp Pulse Resp BP Pulse Ox 36.9 C 106 H 28 H 76/44 L 98 05/01/20 04:00 05/01/20 07:00 05/01/20 07:00 05/01/20 07:00 05/01/20 07:00 Oxygen Flow Rate (L/min) 2 Oxygen Delivery Method Nasal Cannula Weight: 56.8 kg Body Mass Index (BMI) 21.5 Finger Stick Blood Glucose 194 Intake and Output for Last 24 Hours 04/29/20 04/30/20 05/01/20 23:59 23:59 23:59 Intake Total 3160 / 3160 2321.04 / 2333.87 173.27 / 173.27 Output Total 300 / 300 Balance 3160 / 3160 2021.04 / 3.87 173.27 / 173.27 Labs (Last 48 Hours) 04/29/20 04/29/20 04/29/20 12:20 12:20 12:20 WBC 3.3 L RBC 1.82 L Hgb 5.6 L* Hct 18.3 L MCV 100.5 H MCH 30.8 MCHC 30.6 L RDW Std Deviation 58.0 H RDW Coeff of Uriel 16.7 H Plt Count 93 L MPV 11.4 Immature Gran % (Auto) 0.600 Neut % (Auto) 82.9 H Lymph % (Auto) 11.1 L Stephenson % (Auto) 5.1 Eos % (Auto) 0.0 Baso % (Auto) 0.3 Absolute Neuts (auto) 2.8 Absolute Lymphs (auto) 0.37 L Nucleated RBC % 0 Differential Comment Diff Path Review Reviewed Platelet Estimate MKD DEC Hypochromasia 1+ Microcytosis 1+ PT 44.4 H INR 4.7 H* APTT Sodium 140 Potassium 4.1 Chloride 110 H Carbon Dioxide 25.0 Anion Gap 5 BUN 37 H Creatinine 1.67 H Estim Creat Clear Calc 22.31 Est GFR (MDRD) Af Amer 38 L Est GFR (MDRD) Non-Af 32 L BUN/Creatinine Ratio 22.2 H Glucose 197 H Calcium 8.1 L Blood Type Antibody Screen Crossmatch 04/29/20 04/29/20 04/29/20 12:20 12:20 12:20 WBC RBC Hgb Hct MCV MCH MCHC RDW Std Deviation RDW Coeff of Uriel Plt Count MPV Immature Gran % (Auto) Neut % (Auto) Lymph % (Auto) Stephenson % (Auto) Eos % (Auto) Baso % (Auto) Absolute Neuts (auto) Absolute Lymphs (auto) Nucleated RBC % Differential Comment Diff Path Review Platelet Estimate Hypochromasia Microcytosis PT INR APTT Sodium Potassium Chloride Carbon Dioxide Anion Gap BUN Creatinine Estim Creat Clear Calc Est GFR (MDRD) Af Amer Est GFR (MDRD) Non-Af BUN/Creatinine Ratio Glucose Calcium Blood Type A POSITIVE Antibody Screen NEGATIVE Crossmatch See Detail See Detail 04/30/20 04/30/20 04/30/20 05:04 05:04 17:25 WBC 5.6 RBC 2.15 L Hgb 6.5 L 7.4 L Hct 20.6 L 23.1 L MCV 95.8 MCH 30.2 MCHC 31.6 L RDW Std Deviation 59.4 H RDW Coeff of Uriel 17.8 H Plt Count 93 L MPV 10.9 Immature Gran % (Auto) 1.100 H Neut % (Auto) 86.5 H Lymph % (Auto) 6.8 L Stephenson % (Auto) 5.2 Eos % (Auto) 0.0 Baso % (Auto) 0.4 Absolute Neuts (auto) 4.8 Absolute Lymphs (auto) 0.38 L Nucleated RBC % 0 Differential Comment SCANNED Diff Path Review Platelet Estimate Hypochromasia Microcytosis PT 66.8 H INR 7.8 H* APTT Sodium Potassium Chloride Carbon Dioxide Anion Gap BUN Creatinine Estim Creat Clear Calc Est GFR (MDRD) Af Amer Est GFR (MDRD) Non-Af BUN/Creatinine Ratio Glucose Calcium Blood Type Antibody Screen Crossmatch 04/30/20 04/30/20 05/01/20 17:25 17:25 00:17 WBC RBC Hgb Hct MCV MCH MCHC RDW Std Deviation RDW Coeff of Uriel Plt Count MPV Immature Gran % (Auto) Neut % (Auto) Lymph % (Auto) Stephenson % (Auto) Eos % (Auto) Baso % (Auto) Absolute Neuts (auto) Absolute Lymphs (auto) Nucleated RBC % Differential Comment Diff Path Review Platelet Estimate Hypochromasia Microcytosis PT 16.5 H INR 1.4 APTT 33.6 51.0 H Sodium Potassium Chloride Carbon Dioxide Anion Gap BUN Creatinine Estim Creat Clear Calc Est GFR (MDRD) Af Amer Est GFR (MDRD) Non-Af BUN/Creatinine Ratio Glucose Calcium Blood Type Antibody Screen Crossmatch 05/01/20 05/01/20 05/01/20 06:30 06:30 06:30 WBC 3.0 L RBC 2.33 L Hgb 7.0 L Hct 22.1 L MCV 94.8 MCH 30.0 MCHC 31.7 L RDW Std Deviation 54.3 H RDW Coeff of Uriel 16.3 H Plt Count 61 L MPV 10.8 Immature Gran % (Auto) Neut % (Auto) Lymph % (Auto) Stephenson % (Auto) Eos % (Auto) Baso % (Auto) Absolute Neuts (auto) Absolute Lymphs (auto) Nucleated RBC % Differential Comment Diff Path Review Platelet Estimate Hypochromasia Microcytosis PT Cancelled INR Cancelled APTT Sodium 144 Potassium 4.3 Chloride 117 H Carbon Dioxide 22.0 Anion Gap 5 BUN 34 H Creatinine 1.27 H Estim Creat Clear Calc 29.34 Est GFR (MDRD) Af Amer 52 L Est GFR (MDRD) Non-Af 43 L BUN/Creatinine Ratio 26.8 H Glucose 179 H Calcium 7.4 L Blood Type Antibody Screen Crossmatch 05/01/20 05/01/20 06:30 07:00 WBC RBC Hgb Hct MCV MCH MCHC RDW Std Deviation RDW Coeff of Uriel Plt Count MPV Immature Gran % (Auto) Neut % (Auto) Lymph % (Auto) Stephenson % (Auto) Eos % (Auto) Baso % (Auto) Absolute Neuts (auto) Absolute Lymphs (auto) Nucleated RBC % Differential Comment Diff Path Review Platelet Estimate Hypochromasia Microcytosis PT 15.1 H INR 1.2 APTT Cancelled Pending Sodium Potassium Chloride Carbon Dioxide Anion Gap BUN Creatinine Estim Creat Clear Calc Est GFR (MDRD) Af Amer Est GFR (MDRD) Non-Af BUN/Creatinine Ratio Glucose Calcium Blood Type Antibody Screen Crossmatch Medical Necessity - Tobacco Use Smoking Status: Current every day smoker Tobacco Use: Cigarettes - 1-1.5PPD Assessment/Plan All Active Problems (Last Reviewed 04/30/20 @ 06:[address] Zia Banks MD) Presence of permanent cardiac pacemaker (Resolved 08/30/18) History of mitral valve replacement with mechanical valve (Resolved 07/22/08) Anemia (Acute) RECOMMENDATIONS: 1. Transfuse 2 units packed red blood cells. 2. Recheck INR following FFP. Continue heparin until therapeutic INR 3. Encourage port placement as an outpatient 4. Continue to follow mentation 5. CODE STATUS as full code IMPRESSIONS: 1. Acute on chronic anemia secondary to chronic GI bleed The patient is followed longitudinally as an outpatient by Dr. Thomas at [facility]. She requires frequent transfusions. The patient has received a total of 3 units of packed red blood cells to date. Will order 2 more units of packed red blood cells. Her presenting symptoms have improved. Given active bleeding, supratherapeutic INR was addressed, but given mechanical heart valve, heparin drip had to be initiated. Likely okay to start low-dose Coumadin therapy. Patient should have a bleeding scan if hematochezia recurs. 2. Coagulopathy The patient did present to the hospital with a supratherapeutic INR on Coumadin. Patient has been given vitamin K and some FFP. Reassess INR following intervention. Unclear etiology of prolonged INR. Check INR daily. 3. Hypovolemic hypotension secondary to chronic GI bleed While the patient is relatively hypotensive, she does report that her baseline blood pressures are typically in the 70s and 80s systolic. She is asymptomatic at this time and mentating appropriately. 4. Debility/nicotine abuse/chronic hypoxic respiratory failure secondary to COPD/malnutrition/mechanical heart valve/chronic A. fib Complicates care, management, recovery and prognosis. Patient does not appear to be in acute exacerbation of COPD at this time. Patient does use supplemental oxygen in the evening with sleep. This should be continued. Encourage smoking cessation. Dietitian has been consulted. Patient can be continued on baseline Synthroid therapy. Clarified patient is a full code Inpatient E&M: 91628 Subs Hosp L3
--- NOTE | 2020-05-01 08:03 | PCM.PN.SRG ---
Subjective: The patient does not have any further blood clots that he is passing per rectum but she did have some maroon stools. Patient reports no abdominal pain or nausea or vomiting. - Physical Exam Vitals/I&O's: Vital Signs Temp Pulse Resp BP Pulse Ox 98.4 F 106 H 28 H 76/44 L 98 05/01/20 04:00 05/01/20 07:00 05/01/20 07:00 05/01/20 07:00 05/01/20 07:00 Oxygen Flow Rate (L/min) 2 Oxygen Delivery Method Nasal Cannula Weight: 125 lb 3.561 oz Body Mass Index (BMI) 21.5 Finger Stick Blood Glucose 194 Intake and Output for Last 24 Hours 04/29/20 04/30/20 05/01/20 23:59 23:59 23:59 Intake Total 3160 / 3160 2321.04 / 2333.87 173.27 / 173.27 Output Total 300 / 300 Balance 3160 / 3160 2021.04 / 2033.87 173.27 / 173.27 General: Alert, Oriented x3 Lungs: Normal air movement Cardiovascular: Regular Rhythm, Tachycardic Abdomen: Soft, Non Tender, Non-Distended Laboratory Results 04/29/20 12:20: Diff Path Review Reviewed 04/29/20 12:20: Crossmatch See Detail 04/30/20 12:20: Crossmatch See Detail 04/30/20 17:25: Hgb 7.4 L, Hct 23.1 L 04/30/20 17:25: PT 16.5 H, INR 1.4 04/30/20 17:25: APTT 33.6 05/01/20 00:17: APTT 51.0 H 05/01/20 06:30: WBC 3.0 L, RBC 2.33 L, Hgb 7.0 L, Hct 22.1 L, MCV 94.8, MCH 30.0, MCHC 31.7 L, RDW Std Deviation 54.3 H, RDW Coeff of Uriel 16.3 H, Plt Count 61 L, MPV 10.8 05/01/20 06:30: PT Cancelled, INR Cancelled 05/01/20 06:30: Sodium 144, Potassium 4.3, Chloride 117 H, Carbon Dioxide 22.0, Anion Gap 5, BUN 34 H, Creatinine 1.27 H, Estim Creat Clear Calc 29.34, Est GFR (MDRD) Af Amer 52 L, Est GFR (MDRD) Non-Af 43 L, BUN/Creatinine Ratio 26.8 H, Glucose 179 H, Calcium 7.4 L 05/01/20 06:30: APTT Cancelled 05/01/20 07:00: PT 15.1 H, INR 1.2, APTT Pending Current Medications Acetaminophen (Tylenol) 650 mg PO Q6H PRN PRN PRN Reason: Pain 1-10 or Fever Hydrocodone Bitart/Acetaminophen ([place] 5mg-325mg) 0.5 tablet PO DAILY PRN PRN PRN Reason: Pain Score 1-10/10 Albuterol Sulfate (Ventolin Aerosols) 2.5 mg INHALATION Q6H PRN PRN PRN Reason: SOB &/OR WHEEZING Atorvastatin Calcium (Lipitor) 20 mg PO QHS [facility] Last Admin: 04/30/20 22:10 Dose: 20 mg Documented by: Cholecalciferol (Vitamin D (25mcg)) 1,000 unit PO DAILY [facility] Last Admin: 04/30/20 11:45 Dose: 1,000 unit Documented by: Cyanocobalamin (Vitamin B12) 2,500 mcg PO DAILY [facility] Last Admin: 04/30/20 11:45 Dose: 2,500 mcg Documented by: Dicyclomine HCl (Bentyl) 10 mg PO TIDAC [facility] Last Admin: 04/30/20 17:57 Dose: Not Given Documented by: Ferrous Sulfate (Ferrous Sulfate) 650 mg PO QHS [facility] Last Admin: 04/30/20 22:11 Dose: 650 mg Documented by: Folic Acid (Folic Acid) 1 mg PO DAILY@0800 [facility] Last Admin: 04/30/20 09:26 Dose: Not Given Documented by: Heparin Sodium (Porcine) (Heparin Na) 0 unit IV UD PRN; Protocol PRN Reason: HEPARIN DOSAGE ADJUSTMENT Last Admin: 05/01/20 00:41 Dose: 1,000 unit Documented by: Pantoprazole Sodium 80 mg/ (Sodium Chloride) 100 mls @ 10 mls/hr CONT INF Q10H [facility] Stop: 05/01/20 10:00 Last Infusion: 05/01/20 07:31 Dose: 10 mls/hr Documented by: Heparin Sodium/Sodium Chloride () 25,000 unit in 250 mls @ 8 mls/hr IV .[id number] [facility]; Protocol Last Titration: 05/01/20 04:00 Dose: 900 units/hr, 9 mls/hr Documented by: Pantoprazole Sodium 40 mg/ (Sodium Chloride) 110 mls @ 330 mls/hr IV Q12 [facility] Levothyroxine Sodium (Synthroid) 75 mcg PO DAILY@0600 [facility] Last Admin: 04/30/20 05:49 Dose: Not Given Documented by: Magnesium Chloride (Mag64) 128 mg PO DAILY [facility] Last Admin: 04/30/20 11:44 Dose: 128 mg Documented by: Nicotine (Nicoderm Cq (Pbkc)) 21 mg TRANSDERM. DAILY [facility] Last Admin: 04/30/20 11:38 Dose: Not Given Documented by: Ondansetron HCl (Zofran Odt) 4 mg PO Q6H PRN PRN PRN Reason: NAUSEA Potassium Chloride (K-Dur) 20 meq PO DAILY@0800 [facility] Last Admin: 04/30/20 09:26 Dose: Not Given Documented by: Sodium Chloride () 10 - 40 ml IV UD PRN PRN Reason: SALINE FLUSH Last Admin: 04/30/20 18:40 Dose: 10 ml Documented by: Venlafaxine HCl (Effexor) 37.5 mg PO BID [facility] Last Admin: 04/30/20 22:10 Dose: 37.5 mg Documented by: Medical Necessity - Tobacco Use Smoking Status: Current every day smoker Tobacco Use: Cigarettes - 1-1.5PPD Assessment/Plan All Active Problems (Last Reviewed 04/30/20 @ 06:[address] Zia Banks MD) Presence of permanent cardiac pacemaker (Resolved 08/30/18) History of mitral valve replacement with mechanical valve (Resolved 07/22/08) Anemia (Acute) 79-year-old female with GI bleed 1. The patient has had multiple upper and lower endoscopies which have not been able to localize her bleeding. Patient is also had a double-balloon endoscopy of the small bowel as well as capsule endoscopy which were unsuccessful as well. Patient's hemoglobin is 7 from 7.4 and she is receiving more blood today. She is still tachycardic and hypotensive. The patient reports that her stools are turning more brown and did not have any clots or red blood today. She is not having any abdominal pain. 2. The patient requires heparin for anticoagulation as she has a mechanical heart valve. The INR has returned to normal after vitamin K and FFP. If her PTT becomes therapeutic and she begins to rebleed I would recommend a bleeding scan to try to isolate the location of the bleed. Landen Sanchez MD Pager: [facility] [address] [place] [address] [address] [place] [address] Office:
[2020-05-01 08:22] LABS: Partial Thromboplast Time > 250.0 Seconds (24.1-36.2)
[2020-05-01] MEDS: Levothyroxine 75 MCG Tablet PO (10:05)
[2020-05-01] MEDS: Cyanocobalamin 500 MCG Tablet 2500 MCG PO (10:05)
[2020-05-01] MEDS: Dicyclomine 10 MG Capsule PO ×2 (10:05→18:30)
[2020-05-01] MEDS: Folic Acid 1 MG Tablet PO (10:06)
[2020-05-01] MEDS: Venlafaxine HCl 75 MG Tablet 37.5 MG PO ×2 (10:06→21:22)
[2020-05-01] MEDS: 0.9% Saline Lock 10 ML Syringe IV ×3 (10:06→21:29)
[2020-05-01] MEDS: Magnesium Chloride 64 MG Delay Rel.Tablet 128 MG PO (10:06)
--- NOTE | 2020-05-01 10:54 | PN_ITS ---
Reason for Visit: GI bleed Subjective: Feels much better. No further maroon stools. Vitals/I&O's: Vital Signs Temp Pulse Resp BP Pulse Ox 36.9 C 105 H 20 H 64/43 L 96 05/01/20 04:00 05/01/20 08:00 05/01/20 08:00 05/01/20 08:00 05/01/20 08:00 Oxygen Flow Rate (L/min) 2 Oxygen Delivery Method Nasal Cannula Weight: 56.8 kg Body Mass Index (BMI) 21.5 Finger Stick Blood Glucose 194 Intake and Output for Last 24 Hours 04/29/20 04/30/20 05/01/20 23:59 23:59 23:59 Intake Total 3160 / 3160 2321.04 / 2333.87 243.97 / 243.97 Output Total 300 / 300 Balance 3160 / 3160 202. / 203.87 243.97 / 243.97 General: Alert, No apparent distress HEENT: Atraumatic, Normocephalic Oral: Moist Mucosa, No Gingival or Mucosal Lesions/ Ulcerations Neck: No Nodes, Thyroid Normal Size and Texture Lungs: Clear to auscultation, Normal air movement, No rhonchi, No wheeze, No rales Cardiovascular: Regular rate, Regular Rhythm, Normal S1, Normal S2, No murmurs Abdomen: Bowel Sounds Present, Soft, Non Tender, Non-Distended Extremities: No edema, No Calf Tenderness Skin: - - pale Psych/Mental Status: Normal Affect, Appropriate Laboratory Results 04/29/20 12:20: Diff Path Review Reviewed 04/29/20 12:20: Crossmatch See Detail 04/30/20 12:20: Crossmatch See Detail 04/30/20 17:25: Hgb 7.4 L, Hct 23.1 L 04/30/20 17:25: PT 16.5 H, INR 1.4 04/30/20 17:25: APTT 33.6 05/01/20 00:17: APTT 51.0 H 05/01/20 06:30: WBC 3.0 L, RBC 2.33 L, Hgb 7.0 L, Hct 22.1 L, MCV 94.8, MCH 30.0, MCHC 31.7 L, RDW Std Deviation 54.3 H, RDW Coeff of Uriel 16.3 H, Plt Count 61 L, MPV 10.8 05/01/20 06:30: PT Cancelled, INR Cancelled 05/01/20 06:30: Sodium 144, Potassium 4.3, Chloride 117 H, Carbon Dioxide 22.0, Anion Gap 5, BUN 34 H, Creatinine 1.27 H, Estim Creat Clear Calc 29.34, Est GFR (MDRD) Af Amer 52 L, Est GFR (MDRD) Non-Af 43 L, BUN/Creatinine Ratio 26.8 H, Glucose 179 H, Calcium 7.4 L 05/01/20 06:30: APTT Cancelled 05/01/20 07:00: PT 15.1 H, INR 1.2, APTT > 250.0 H* 05/01/20 08:45: APTT 62.0 H Current Medications Acetaminophen (Tylenol) 650 mg PO Q6H PRN PRN PRN Reason: Pain 1-10 or Fever Hydrocodone Bitart/Acetaminophen ([place] 5mg-325mg) 0.5 tablet PO DAILY PRN PRN PRN Reason: Pain Score 1-10/10 Albuterol Sulfate (Ventolin Aerosols) 2.5 mg INHALATION Q6H PRN PRN PRN Reason: SOB &/OR WHEEZING Atorvastatin Calcium (Lipitor) 20 mg PO QHS [facility] Last Admin: 04/30/20 22:10 Dose: 20 mg Documented by: Cholecalciferol (Vitamin D (25mcg)) 1,000 unit PO DAILY [facility] Last Admin: 05/01/20 10:06 Dose: 1,000 unit Documented by: Cyanocobalamin (Vitamin B12) 2,500 mcg PO DAILY [facility] Last Admin: 05/01/20 10:05 Dose: 2,500 mcg Documented by: Dicyclomine HCl (Bentyl) 10 mg PO TIDAC [facility] Last Admin: 05/01/20 10:05 Dose: 10 mg Documented by: Ferrous Sulfate (Ferrous Sulfate) 650 mg PO QHS [facility] Last Admin: 04/30/20 22:11 Dose: 650 mg Documented by: Folic Acid (Folic Acid) 1 mg PO DAILY@0800 [facility] Last Admin: 05/01/20 10:06 Dose: 1 mg Documented by: Heparin Sodium (Porcine) (Heparin Na) 0 unit IV UD PRN; Protocol PRN Reason: HEPARIN DOSAGE ADJUSTMENT Last Admin: 05/01/20 00:41 Dose: 1,000 unit Documented by: Heparin Sodium/Sodium Chloride () 25,000 unit in 250 mls @ 8 mls/hr IV .[id number] [facility]; Protocol Last Titration: 05/01/20 09:38 Dose: 900 units/hr, 9 mls/hr Documented by: Pantoprazole Sodium 40 mg/ (Sodium Chloride) 110 mls @ 330 mls/hr IV Q12 [facility] Levothyroxine Sodium (Synthroid) 75 mcg PO DAILY@0600 [facility] Last Admin: 05/01/20 10:05 Dose: 75 mcg Documented by: Magnesium Chloride (Mag64) 128 mg PO DAILY [facility] Last Admin: 05/01/20 10:06 Dose: 128 mg Documented by: Nicotine (Nicoderm Cq (Pbkc)) 21 mg TRANSDERM. DAILY [facility] Last Admin: 05/01/20 10:10 Dose: Not Given Documented by: Ondansetron HCl (Zofran Odt) 4 mg PO Q6H PRN PRN PRN Reason: NAUSEA Potassium Chloride (K-Dur) 20 meq PO DAILY@0800 [facility] Last Admin: 05/01/20 10:10 Dose: Not Given Documented by: Sodium Chloride () 10 - 40 ml IV UD PRN PRN Reason: SALINE FLUSH Last Admin: 05/01/20 10:06 Dose: 10 ml Documented by: Venlafaxine HCl (Effexor) 37.5 mg PO BID [facility] Last Admin: 05/01/20 10:06 Dose: 37.5 mg Documented by: Warfarin Sodium (Jantoven) 2 mg PO X1 ONE Stop: 05/01/20 17:01 STROKE Vital Signs/Narrative: Vital Signs Pulse Resp BP Pulse Ox 05/01/20 08:00 105 H 20 H 64/43 L 96 05/01/20 07:04 106 H 05/01/20 07:00 106 H 28 H 76/44 L 98 Medical Necessity - Tobacco Use Smoking Status: Current every day smoker Tobacco Use: Cigarettes - 1-1.5PPD Assessment/Plan All Active Problems (Last Reviewed 04/30/20 @ 06:[address] Zia Banks MD) Presence of permanent cardiac pacemaker (Resolved 08/30/18) History of mitral valve replacement with mechanical valve (Resolved 07/22/08) Anemia (Acute) Assessment: 1. acute blood anemia 2/2 GI bleed 2. GI bleed, improving. Has had a very extensive work up in the past that has not yielded a source. Patient not interested in additional intervention. 3. supratherapeutic INR. due to warfarin, but also poor oral intake. 4. Mechanical MV 5. moderate protein malnutrition 6. chronic hypotension: asymptomatic. Questionable how accurrate BP readings are Plan * transfused now 4 units of PRBCs with 2 additional units ordered to be transfused by [facility] * received vitamin K and FFP for reversal of INR * no additional GI work at this institution, nor does patient want any additional work up * on heparin gtt and restarting warfarin * VTE prophylaxis with SCDs, can be removed as she is on anticoagulation * no need for vasopressors * If INR continues to be labile, PO intake poor, consider scheduled low-dose vitamin K Inpatient E&M: 84084 Subs Hosp L2
[2020-05-01 16:09] LABS: Partial Thromboplast Time 47.1 Seconds (24.1-36.2)
[2020-05-01] MEDS: Jantoven 2 MG Tablet PO (18:30)
[2020-05-01] MEDS: Atorvastatin Calcium 20 MG Tablet PO (21:22)
[2020-05-01] MEDS: Ferrous Sulfate 325 MG Tablet 650 MG PO (21:22)
[2020-05-01 22:52] LABS: Hematocrit 29.7 % (37-47); Hemoglobin 9.4 g/dL (12.0-15.0); POSITIVE COUNT YES
[2020-05-01 23:01] LABS: Partial Thromboplast Time 55.6 Seconds (24.1-36.2)
[2020-05-02] VITALS (21 sets, daily range): BP systolic 56–124; BP diastolic 40–98; PULSE 79–109; RESP 16–26; TEMP 36.1–37.1; O2SAT 92–99
[2020-05-02 04:42] LABS: Absolute Lymphocyte Count 0.32 X10^3/uL (0.83-4.51); Absolute Neutrophil Count 2.9 X10^3/uL (2.0-7.7); Basophil# 0.01 X10^3/uL; Basophil% 0.3 % (0-1); Hematocrit 28.7 % (37-47); Hemoglobin 9.1 g/dL (12.0-15.0); Lymphocyte # 0.32 X10^3/ul (4.0); Mean Corp Hgb Conc 31.7 g/dL (32-36); Mean Corpuscular Volume 94.7 fL (81-99); Mean Platelet Vol. 10.9 fl (6.2-12.0); Monocyte# 0.32 X10^3/uL; NRBC Flagged by Analyzer 0 % (0-5); Neutrophil # 2.89 X10^3/uL (2.7-7.7); Neutrophil % 81.1 % (47-70); POSITIVE COUNT YES; POSITIVE DIFFERENTIAL YES; Platelet Count 56 K/mm3 (150-450); RBC Distribution Width CV 15.7 % (11.6-14.6); RBC Distribution Width SD 53.1 fl (35.1-43.9); Red Blood Count 3.03 M/mm3 (4.2-5.4); White Blood Count 3.6 K/mm3 (4.4-11.0)
[2020-05-02 04:53] LABS: Differential Indicated SCAN CRITERIA MET
[2020-05-02 04:58] LABS: International Normalized Ratio 1.2; Prothrombin Time (Protime)PT. 15.1 SECONDS (11.7-14.9)
[2020-05-02 05:00] LABS: Anion Gap 6 (5-15); BUN 27 mg/dL (7-18); Calcium,Total 7.4 mg/dL (8.5-10.1); Chloride 114 mmol/L (98-107); Creatinine, Serum 1.23 mg/dL (0.55-1.02); EST Glomerular Filtration Rate 45 mL/min (>60); Est Glom Filt Rate - Afr Amer 54 mL/min (>60); Estimated Creatinine Clearance 30.29 ml/min; Glucose 159 mg/dL (74-106); Magnesium 2.1 mg/dL (1.6-2.6); Partial Thromboplast Time 86.3 Seconds (24.1-36.2); Phosphorus 2.2 mg/dL (2.5-4.9); Sodium Level 141 mmol/L (136-145)
[2020-05-02 05:12] LABS: Platelet Estimate MOD DEC (ADEQ)
[2020-05-02] MEDS: Dicyclomine 10 MG Capsule PO ×3 (06:20→17:20)
[2020-05-02] MEDS: Levothyroxine 75 MCG Tablet PO (06:20)
--- NOTE | 2020-05-02 06:34 | PN.SURG_ITS ---
Subjective: Patient had dark bowel movement yesterday afternoon but since then she has not had any bowel movements. Abdomen is soft and nontender. Patient tolerated clears yesterday. - Physical Exam Vitals/I&O's: Vital Signs Temp Pulse Resp BP Pulse Ox 96.9 F L 107 H 22 H 67/42 L 98 05/02/20 04:00 05/02/20 06:00 05/02/20 06:00 05/02/20 06:00 05/02/20 06:00 Oxygen Flow Rate (L/min) 2 Oxygen Delivery Method Nasal Cannula Weight: 125 lb 3.561 oz Body Mass Index (BMI) 21.5 Finger Stick Blood Glucose 194 Intake and Output for Last 24 Hours 04/30/20 05/01/20 05/02/20 23:59 23:59 23:59 Intake Total 2321.04 / 2333.87 1495.80 / 1495.80 186.33 / 186.33 Output Total 300 / 300 Balance 2021.04 / 2033.87 1495.80 / 1495.80 186.33 / 186.33 General: Alert, Oriented x3 Lungs: Normal air movement Cardiovascular: Regular rate, Regular Rhythm Abdomen: Soft, Non Tender, Non-Distended Laboratory Results 04/30/20 12:20: Crossmatch See Detail 05/01/20 06:30: WBC 3.0 L, RBC 2.33 L, Hgb 7.0 L, Hct 22.1 L, MCV 94.8, MCH 30.0, MCHC 31.7 L, RDW Std Deviation 54.3 H, RDW Coeff of Uriel 16.3 H, Plt Count 61 L, MPV 10.8 05/01/20 06:30: PT Cancelled, INR Cancelled 05/01/20 06:30: Sodium 144, Potassium 4.3, Chloride 117 H, Carbon Dioxide 22.0, Anion Gap 5, BUN 34 H, Creatinine 1.27 H, Estim Creat Clear Calc 29.34, Est GFR (MDRD) Af Amer 52 L, Est GFR (MDRD) Non-Af 43 L, BUN/Creatinine Ratio 26.8 H, Glucose 179 H, Calcium 7.4 L 05/01/20 06:30: APTT Cancelled 05/01/20 07:00: PT 15.1 H, INR 1.2, APTT > 250.0 H* 05/01/20 08:45: APTT 62.0 H 05/01/20 15:55: APTT 47.1 H 05/01/20 22:35: APTT 55.6 H 05/01/20 22:35: Hgb 9.4 L, Hct 29.7 L 05/02/20 04:30: PT 15.1 H, INR 1.2, APTT 86.3 H 05/02/20 04:30: WBC 3.6 L, RBC 3.03 L, Hgb 9.1 L, Hct 28.7 L, MCV 94.7, MCH 30.0, MCHC 31.7 L, RDW Std Deviation 53.1 H, RDW Coeff of Uriel 15.7 H, Plt Count 56 L, MPV 10.9, Immature Gran % (Auto) 0.600, Neut % (Auto) 81.1 H, Lymph % (Auto) 9.0 L, [place] % (Auto) 9.0, Eos % (Auto) 0.0, Baso % (Auto) 0.3, Absolute Neuts (auto) 2.9, Absolute Lymphs (auto) 0.32 L, Nucleated RBC % 0, Differential Comment COMMENT, Diff Path Review May eliana, Platelet Estimate MOD 05/02/20 04:30: Sodium 141, Potassium 4.0, Chloride 114 H, Carbon Dioxide 21.0, Anion Gap 6, BUN 27 H, Creatinine 1.23 H, Estim Creat Clear Calc 30.29, Est GFR (MDRD) Af Amer 54 L, Est GFR (MDRD) Non-Af 45 L, BUN/Creatinine Ratio 22.0 H, Glucose 159 H, Calcium 7.4 L, Phosphorus 2.2 L, Magnesium 2.1 Current Medications Acetaminophen (Tylenol) 650 mg PO Q6H PRN PRN PRN Reason: Pain 1-10 or Fever Hydrocodone Bitart/Acetaminophen ([place] 5mg-325mg) 0.5 tablet PO DAILY PRN PRN PRN Reason: Pain Score 1-10/10 Albuterol Sulfate (Ventolin Aerosols) 2.5 mg INHALATION Q6H PRN PRN PRN Reason: SOB &/OR WHEEZING Atorvastatin Calcium (Lipitor) 20 mg PO QHS [facility] Last Admin: 05/01/20 21:22 Dose: 20 mg Documented by: Cholecalciferol (Vitamin D (25mcg)) 1,000 unit PO DAILY [facility] Last Admin: 05/01/20 10:06 Dose: 1,000 unit Documented by: Cyanocobalamin (Vitamin B12) 2,500 mcg PO DAILY [facility] Last Admin: 05/01/20 10:05 Dose: 2,500 mcg Documented by: Dicyclomine HCl (Bentyl) 10 mg PO TIDAC [facility] Last Admin: 05/02/20 06:20 Dose: 10 mg Documented by: Ferrous Sulfate (Ferrous Sulfate) 650 mg PO QHS [facility] Last Admin: 05/01/20 21:22 Dose: 650 mg Documented by: Folic Acid (Folic Acid) 1 mg PO DAILY@0800 [facility] Last Admin: 05/01/20 10:06 Dose: 1 mg Documented by: Heparin Sodium (Porcine) (Heparin Na) 0 unit IV UD PRN; Protocol PRN Reason: HEPARIN DOSAGE ADJUSTMENT Last Admin: 05/01/20 17:18 Dose: 1,000 unit Documented by: Heparin Sodium/Sodium Chloride () 25,000 unit in 250 mls @ 8 mls/hr IV .[id number] [facility]; Protocol Last Titration: 05/02/20 05:13 Dose: 900 units/hr, 9 mls/hr Documented by: Pantoprazole Sodium 40 mg/ (Sodium Chloride) 110 mls @ 330 mls/hr IV Q12 [facility] Last Infusion: 05/01/20 21:49 Dose: Infused Documented by: Levothyroxine Sodium (Synthroid) 75 mcg PO DAILY@0600 [facility] Last Admin: 05/02/20 06:20 Dose: 75 mcg Documented by: Magnesium Chloride (Mag64) 128 mg PO DAILY [facility] Last Admin: 05/01/20 10:06 Dose: 128 mg Documented by: Nicotine (Nicoderm Cq (Pbkc)) 21 mg TRANSDERM. DAILY [facility] Last Admin: 05/01/20 10:10 Dose: Not Given Documented by: Ondansetron HCl (Zofran Odt) 4 mg PO Q6H PRN PRN PRN Reason: NAUSEA Potassium Chloride (K-Dur) 20 meq PO DAILY@0800 [facility] Last Admin: 05/01/20 10:10 Dose: Not Given Documented by: Sodium Chloride () 10 - 40 ml IV UD PRN PRN Reason: SALINE FLUSH Last Admin: 05/01/20 21:29 Dose: 40 ml Documented by: Venlafaxine HCl (Effexor) 37.5 mg PO BID [facility] Last Admin: 05/01/20 21:22 Dose: 37.5 mg Documented by: Medical Necessity - Tobacco Use Smoking Status: Current every day smoker Tobacco Use: Cigarettes - 1-1.5PPD Assessment/Plan All Active Problems (Last Reviewed 04/30/20 @ 06:[address] Zia Banks MD) Presence of permanent cardiac pacemaker (Resolved 08/30/18) History of mitral valve replacement with mechanical valve (Resolved 07/22/08) Anemia (Acute) 79-year-old female with GI bleed 1. Patient received transfusion additional units yesterday. She is still tachycardic with hypotension but she says this is where she lives. She is not having any abdominal pain has not had any gross blood in her stool for at least 24 hours and is tolerating clears. She may advance her diet. Continue observing hemoglobin and vital signs. Patient is on heparin drip for mechanical valve. Landen Sanchez MD Pager: [facility] [address] [place] [address], [address] [place] [address] Office:
--- NOTE | 2020-05-02 07:13 | PN_ITS ---
Subjective: Patient did well overnight. Patient feels that she is back to her baseline at this time. Nursing is reporting 1 brown bowel movement overnight. Patient is denying any abdominal pain or orthostatic symptomatology. General: Alert, Oriented x3, Cooperative, No apparent distress, - - Better complexion today compared to previous HEENT: Atraumatic, PERRLA, EOMI, Normocephalic, - - No scleral icterus or injection noted Oral: Moist Mucosa, No Gingival or Mucosal Lesions/ Ulcerations Neck: Supple, No JVD, No Nodes, Trachea Midline Lungs: Clear to auscultation, Normal air movement, No rhonchi, No wheeze, No rales, - - Symmetric expansion Cardiovascular: Normal S1, Normal S2, Murmur - Unchanged, No rub noted, No Gallop Abdomen: Bowel Sounds Present, Soft, Non Tender, Non-Distended Extremities: No clubbing, No cyanosis, No edema Skin: No rashes, No breakdown Musculoskeletal: No Tenderness to Palpation of Joints or Extremities Lymphatic: No Cervical, Supraclavicular, or Inguinal Adenopathy Neurological: Cranial nerves II-XII grossly intact, Neuro grossly intact, Motor Exam 5/5 strength throughout Psych/Mental Status: Alert and oriented to time, place, person, mood and affect Vital Signs Temp Pulse Resp BP Pulse Ox 36.1 C L 107 H 22 H 67/42 L 98 05/02/20 04:00 05/02/20 06:00 05/02/20 06:00 05/02/20 06:00 05/02/20 06:00 Oxygen Flow Rate (L/min) 2 Oxygen Delivery Method Nasal Cannula Weight: 56.8 kg Body Mass Index (BMI) 21.5 Finger Stick Blood Glucose 194 Intake and Output for Last 24 Hours 04/30/20 05/01/20 05/02/20 23:59 23:59 23:59 Intake Total 2321.04 / 2333.87 1495.80 / 1495.80 186.33 / 186.33 Output Total 300 / 300 Balance 2020. / 2033.87 1495.80 / 1495.80 186.33 / 186.33 Labs (Last 48 Hours) 04/29/20 04/29/20 04/30/20 12:20 12:20 12:20 WBC RBC Hgb Hct MCV MCH MCHC RDW Std Deviation RDW Coeff of Uriel Plt Count MPV Immature Gran % (Auto) Neut % (Auto) Lymph % (Auto) [place] % (Auto) Eos % (Auto) Baso % (Auto) Absolute Neuts (auto) Absolute Lymphs (auto) Nucleated RBC % Differential Comment Diff Path Review Reviewed Platelet Estimate PT INR APTT Sodium Potassium Chloride Carbon Dioxide Anion Gap BUN Creatinine Estim Creat Clear Calc Est GFR (MDRD) Af Amer Est GFR (MDRD) Non-Af BUN/Creatinine Ratio Glucose Calcium Phosphorus Magnesium Crossmatch See Detail See Detail 04/30/20 04/30/20 04/30/20 17:25 17:25 17:25 WBC RBC Hgb 7.4 L Hct 23.1 L MCV MCH MCHC RDW Std Deviation RDW Coeff of Uriel Plt Count MPV Immature Gran % (Auto) Neut % (Auto) Lymph % (Auto) [place] % (Auto) Eos % (Auto) Baso % (Auto) Absolute Neuts (auto) Absolute Lymphs (auto) Nucleated RBC % Differential Comment Diff Path Review Platelet Estimate PT 16.5 H INR 1.4 APTT 33.6 Sodium Potassium Chloride Carbon Dioxide Anion Gap BUN Creatinine Estim Creat Clear Calc Est GFR (MDRD) Af Amer Est GFR (MDRD) Non-Af BUN/Creatinine Ratio Glucose Calcium Phosphorus Magnesium Crossmatch 05/01/20 05/01/20 05/01/20 00:17 06:30 06:30 WBC 3.0 L RBC 2.33 L Hgb 7.0 L Hct 22.1 L MCV 94.8 MCH 30.0 MCHC 31.7 L RDW Std Deviation 54.3 H RDW Coeff of Uriel 16.3 H Plt Count 61 L MPV 10.8 Immature Gran % (Auto) Neut % (Auto) Lymph % (Auto) [place] % (Auto) Eos % (Auto) Baso % (Auto) Absolute Neuts (auto) Absolute Lymphs (auto) Nucleated RBC % Differential Comment Diff Path Review Platelet Estimate PT Cancelled INR Cancelled APTT 51.0 H Sodium Potassium Chloride Carbon Dioxide Anion Gap BUN Creatinine Estim Creat Clear Calc Est GFR (MDRD) Af Amer Est GFR (MDRD) Non-Af BUN/Creatinine Ratio Glucose Calcium Phosphorus Magnesium Crossmatch 05/01/20 05/01/20 05/01/20 06:30 06:30 07:00 WBC RBC Hgb Hct MCV MCH MCHC RDW Std Deviation RDW Coeff of Uriel Plt Count MPV Immature Gran % (Auto) Neut % (Auto) Lymph % (Auto) [place] % (Auto) Eos % (Auto) Baso % (Auto) Absolute Neuts (auto) Absolute Lymphs (auto) Nucleated RBC % Differential Comment Diff Path Review Platelet Estimate PT 15.1 H INR 1.2 APTT Cancelled > 250.0 H* Sodium 144 Potassium 4.3 Chloride 117 H Carbon Dioxide 22.0 Anion Gap 5 BUN 34 H Creatinine 1.27 H Estim Creat Clear Calc 29.34 Est GFR (MDRD) Af Amer 52 L Est GFR (MDRD) Non-Af 43 L BUN/Creatinine Ratio 26.8 H Glucose 179 H Calcium 7.4 L Phosphorus Magnesium Crossmatch 05/01/20 05/01/20 05/01/20 08:45 15:55 22:35 WBC RBC Hgb Hct MCV MCH MCHC RDW Std Deviation RDW Coeff of Uriel Plt Count MPV Immature Gran % (Auto) Neut % (Auto) Lymph % (Auto) [place] % (Auto) Eos % (Auto) Baso % (Auto) Absolute Neuts (auto) Absolute Lymphs (auto) Nucleated RBC % Differential Comment Diff Path Review Platelet Estimate PT INR APTT 62.0 H 47.1 H 55.6 H Sodium Potassium Chloride Carbon Dioxide Anion Gap BUN Creatinine Estim Creat Clear Calc Est GFR (MDRD) Af Amer Est GFR (MDRD) Non-Af BUN/Creatinine Ratio Glucose Calcium Phosphorus Magnesium Crossmatch 05/01/20 05/02/20 05/02/20 22:35 04:30 04:30 WBC 3.6 L RBC 3.03 L Hgb 9.4 L 9.1 L Hct 29.7 L 28.7 L MCV 94.7 MCH 30.0 MCHC 31.7 L RDW Std Deviation 53.1 H RDW Coeff of Uriel 15.7 H Plt Count 56 L MPV 10.9 Immature Gran % (Auto) 0.600 Neut % (Auto) 81.1 H Lymph % (Auto) 9.0 L [place] % (Auto) 9.0 Eos % (Auto) 0.0 Baso % (Auto) 0.3 Absolute Neuts (auto) 2.9 Absolute Lymphs (auto) 0.32 L Nucleated RBC % 0 Differential Comment COMMENT Diff Path Review May foll Platelet Estimate MOD DEC PT 15.1 H INR 1.2 APTT 86.3 H Sodium Potassium Chloride Carbon Dioxide Anion Gap BUN Creatinine Estim Creat Clear Calc Est GFR (MDRD) Af Amer Est GFR (MDRD) Non-Af BUN/Creatinine Ratio Glucose Calcium Phosphorus Magnesium Crossmatch 05/02/20 04:30 WBC RBC Hgb Hct MCV MCH MCHC RDW Std Deviation RDW Coeff of Uriel Plt Count MPV Immature Gran % (Auto) Neut % (Auto) Lymph % (Auto) [place] % (Auto) Eos % (Auto) Baso % (Auto) Absolute Neuts (auto) Absolute Lymphs (auto) Nucleated RBC % Differential Comment Diff Path Review Platelet Estimate PT INR APTT Sodium 141 Potassium 4.0 Chloride 114 H Carbon Dioxide 21.0 Anion Gap 6 BUN 27 H Creatinine 1.23 H Estim Creat Clear Calc 30.29 Est GFR (MDRD) Af Amer 54 L Est GFR (MDRD) Non-Af 45 L BUN/Creatinine Ratio 22.0 H Glucose 159 H Calcium 7.4 L Phosphorus 2.2 L Magnesium 2.1 Crossmatch Medical Necessity - Tobacco Use Smoking Status: Current every day smoker Tobacco Use: Cigarettes - 1-1.5PPD Assessment/Plan All Active Problems (Last Reviewed 04/30/20 @ 06:[address] Zia Banks MD) Presence of permanent cardiac pacemaker (Resolved 08/30/18) History of mitral valve replacement with mechanical valve (Resolved 07/22/08) Anemia (Acute) RECOMMENDATIONS: 1. Continue supportive therapy 2. Recheck INR following FFP. Continue heparin until therapeutic INR. Dose Coumadin 3. Encourage port placement as an outpatient 4. Continue to follow mentation 5. CODE STATUS as full code 6. Back to baseline with improving bowel movements and stable hemoglobin. Will sign off from a critical care perspective. 7. Okay to leave the intensive care unit from my perspective IMPRESSIONS: 1. Acute on chronic anemia secondary to chronic GI bleed The patient is followed longitudinally as an outpatient by Dr. Thomas at [facility]. She requires frequent transfusions. The patient has received a total of 3 units of packed red blood cells to date. Will order 2 more units of packed red blood cells. Her presenting symptoms have improved. Given active bleeding, supratherapeutic INR was addressed, but given mechanical heart valve, heparin drip had to be initiated. Likely okay to start low-dose Coumadin therapy. Patient should have a bleeding scan if hematochezia recurs. 2. Coagulopathy The patient did present to the hospital with a supratherapeutic INR on Coumadin. Patient has been given vitamin K and some FFP on transfer to the ICU. Reassess INR following intervention. Unclear etiology of prolonged INR. Check INR daily. Patient does use very small doses of Coumadin at baseline 3. Hypovolemic hypotension secondary to chronic GI bleed While the patient is relatively hypotensive, she does report that her baseline blood pressures are typically in the 70s and 80s systolic. She is asymptomatic at this time and mentating appropriately. 4. Debility/nicotine abuse/chronic hypoxic respiratory failure secondary to COPD/malnutrition/mechanical heart valve/chronic A. fib Complicates care, management, recovery and prognosis. Patient does not appear to be in acute exacerbation of COPD at this time. Patient does use supplemental oxygen in the evening with sleep. This should be continued. Encourage smoking cessation. Dietitian has been consulted. Patient can be continued on baseline Synthroid therapy. Clarified patient is a full code Inpatient E&M: 25494 Subs Hosp L3
--- NOTE | 2020-05-02 10:33 | PN_ITS ---
Reason for Visit: GI bleed Subjective: No further GI bleed. Feels well. Vitals/I&O's: Vital Signs Temp Pulse Resp BP Pulse Ox 36.1 C L 107 H 22 H 67/42 L 98 05/02/20 04:00 05/02/20 07:00 05/02/20 06:00 05/02/20 06:00 05/02/20 06:00 Oxygen Flow Rate (L/min) 2 Oxygen Delivery Method Nasal Cannula Weight: 56.8 kg Body Mass Index (BMI) 21.5 Finger Stick Blood Glucose 194 Intake and Output for Last 24 Hours 04/30/20 05/01/20 05/02/20 23:59 23:59 23:59 Intake Total 2321.04 / 2333.87 1495.80 / 1495.80 186.33 / 186.33 Output Total 300 / 300 Balance 202.04 / 2033.87 1495.80 / 1495.80 186.33 / 186.33 General: Alert, No apparent distress HEENT: Atraumatic, Normocephalic Oral: Moist Mucosa, No Gingival or Mucosal Lesions/ Ulcerations Neck: No Nodes, Thyroid Normal Size and Texture Lungs: Clear to auscultation, Normal air movement, No rhonchi, No wheeze, No rales Cardiovascular: Regular rate, Regular Rhythm, Normal S1, Normal S2, No murmurs Abdomen: Bowel Sounds Present, Soft, Non Tender, Non-Distended, No Hepato- splenomegaly Extremities: No edema, No Calf Tenderness Skin: No rashes, No breakdown Psych/Mental Status: Normal Affect, Appropriate Laboratory Results 04/30/20 12:20: Crossmatch See Detail 05/01/20 15:55: APTT 47.1 H 05/01/20 22:35: APTT 55.6 H 05/01/20 22:35: Hgb 9.4 L, Hct 29.7 L 05/02/20 04:30: PT 15.1 H, INR 1.2, APTT 86.3 H 05/02/20 04:30: WBC 3.6 L, RBC 3.03 L, Hgb 9.1 L, Hct 28.7 L, MCV 94.7, MCH 30.0, MCHC 31.7 L, RDW Std Deviation 53.1 H, RDW Coeff of Uriel 15.7 H, Plt Count 56 L, MPV 10.9, Immature Gran % (Auto) 0.600, Neut % (Auto) 81.1 H, Lymph % (Auto) 9.0 L, [place] % (Auto) 9.0, Eos % (Auto) 0.0, Baso % (Auto) 0.3, Absolute Neuts (auto) 2.9, Absolute Lymphs (auto) 0.32 L, Nucleated RBC % 0, Differential Comment COMMENT, Diff Path Review December foll, Platelet Estimate MOD 05/02/20 04:30: Sodium 141, Potassium 4.0, Chloride 114 H, Carbon Dioxide 21.0, Anion Gap 6, BUN 27 H, Creatinine 1.23 H, Estim Creat Clear Calc 30.29, Est GFR (MDRD) Af Amer 54 L, Est GFR (MDRD) Non-Af 45 L, BUN/Creatinine Ratio 22.0 H, Glucose 159 H, Calcium 7.4 L, Phosphorus 2.2 L, Magnesium 2.1 Current Medications Acetaminophen (Tylenol) 650 mg PO Q6H PRN PRN PRN Reason: Pain 1-10 or Fever Hydrocodone Bitart/Acetaminophen ([place] 5mg-325mg) 0.5 tablet PO DAILY PRN PRN PRN Reason: Pain Score 1-10/10 Albuterol Sulfate (Ventolin Aerosols) 2.5 mg INHALATION Q6H PRN PRN PRN Reason: SOB &/OR WHEEZING Atorvastatin Calcium (Lipitor) 20 mg PO QHS [facility] Last Admin: 05/01/20 21:22 Dose: 20 mg Documented by: Cholecalciferol (Vitamin D (25mcg)) 1,000 unit PO DAILY [facility] Last Admin: 05/01/20 10:06 Dose: 1,000 unit Documented by: Cyanocobalamin (Vitamin B12) 2,500 mcg PO DAILY [facility] Last Admin: 05/01/20 10:05 Dose: 2,500 mcg Documented by: Dicyclomine HCl (Bentyl) 10 mg PO TIDAC [facility] Last Admin: 05/02/20 06:20 Dose: 10 mg Documented by: Ferrous Sulfate (Ferrous Sulfate) 650 mg PO QHS [facility] Last Admin: 05/01/20 21:22 Dose: 650 mg Documented by: Folic Acid (Folic Acid) 1 mg PO DAILY@0800 [facility] Last Admin: 05/01/20 10:06 Dose: 1 mg Documented by: Heparin Sodium (Porcine) (Heparin Na) 0 unit IV UD PRN; Protocol PRN Reason: HEPARIN DOSAGE ADJUSTMENT Last Admin: 05/01/20 17:18 Dose: 1,000 unit Documented by: Heparin Sodium/Sodium Chloride () 25,000 unit in 250 mls @ 8 mls/hr IV .[id number] [facility]; Protocol Last Titration: 05/02/20 05:13 Dose: 900 units/hr, 9 mls/hr Documented by: Pantoprazole Sodium 40 mg/ (Sodium Chloride) 110 mls @ 330 mls/hr IV Q12 [facility] Last Infusion: 05/01/20 21:49 Dose: Infused Documented by: Levothyroxine Sodium (Synthroid) 75 mcg PO DAILY@0600 [facility] Last Admin: 05/02/20 06:20 Dose: 75 mcg Documented by: Magnesium Chloride (Mag64) 128 mg PO DAILY [facility] Last Admin: 05/01/20 10:06 Dose: 128 mg Documented by: Nicotine (Nicoderm Cq (Pbkc)) 21 mg TRANSDERM. DAILY [facility] Last Admin: 05/01/20 10:10 Dose: Not Given Documented by: Ondansetron HCl (Zofran Odt) 4 mg PO Q6H PRN PRN PRN Reason: NAUSEA Potassium Chloride (K-Dur) 20 meq PO DAILY@0800 [facility] Last Admin: 05/01/20 10:10 Dose: Not Given Documented by: Sodium Chloride () 10 - 40 ml IV UD PRN PRN Reason: SALINE FLUSH Last Admin: 05/01/20 21:29 Dose: 40 ml Documented by: Venlafaxine HCl (Effexor) 37.5 mg PO BID [facility] Last Admin: 05/01/20 21:22 Dose: 37.5 mg Documented by: Warfarin Sodium ([place]) 2 mg PO X1 ONE Stop: 05/02/20 17:01 STROKE Vital Signs/Narrative: Vital Signs Pulse 05/02/20 07:00 107 H Medical Necessity - Tobacco Use Smoking Status: Current every day smoker Tobacco Use: Cigarettes - 1-1.5PPD Assessment/Plan All Active Problems (Last Reviewed 04/30/20 @ 06:[address] Zia Banks MD) Presence of permanent cardiac pacemaker (Resolved 08/30/18) History of mitral valve replacement with mechanical valve (Resolved 07/22/08) Anemia (Acute) Assessment: 1. acute blood anemia 2/2 GI bleed. stable after 6 units PRBCs 2. GI bleed, improving. Has had a very extensive work up in the past that has not yielded a source. Patient not interested in additional intervention. 3. supratherapeutic INR. due to warfarin, but also poor oral intake. 4. Mechanical MV 5. moderate protein malnutrition 6. chronic hypotension: asymptomatic. Questionable how accurrate BP readings are Plan * received vitamin K and FFP for reversal of INR * no additional GI work at this institution, nor does patient want any additional work up * on heparin gtt and restarting warfarin * VTE prophylaxis with SCDs, can be removed as she is on anticoagulation * no need for vasopressors * If INR continues to be labile, PO intake poor, consider scheduled low-dose vitamin K * transfer to PCU Inpatient E&M: 53559 Subs Hosp L2
[2020-05-02] MEDS: Venlafaxine HCl 75 MG Tablet 37.5 MG PO ×2 (11:34→22:15)
[2020-05-02] MEDS: Cyanocobalamin 500 MCG Tablet 2500 MCG PO (11:34)
[2020-05-02] MEDS: Magnesium Chloride 64 MG Delay Rel.Tablet 128 MG PO (11:34)
[2020-05-02] MEDS: Folic Acid 1 MG Tablet PO (11:34)
[2020-05-02 12:01] LABS: Partial Thromboplast Time 59.2 Seconds (24.1-36.2)
[2020-05-02] MEDS: Jantoven 2 MG Tablet PO (17:21)
[2020-05-02 18:12] LABS: Partial Thromboplast Time 56.3 Seconds (24.1-36.2)
[2020-05-02] MEDS: Atorvastatin Calcium 20 MG Tablet PO (22:16)
[2020-05-02] MEDS: Ferrous Sulfate 325 MG Tablet 650 MG PO (22:16)
[2020-05-03] VITALS (22 sets, daily range): BP systolic 58–94; BP diastolic 39–57; PULSE 97–110; RESP 14–28; TEMP 36.3–37.2; O2SAT 93–98
[2020-05-03 05:29] LABS: Absolute Lymphocyte Count 0.28 X10^3/uL (0.83-4.51); Absolute Neutrophil Count 2.3 X10^3/uL (2.0-7.7); Basophil# 0.01 X10^3/uL; Basophil% 0.4 % (0-1); Hematocrit 26.9 % (37-47); Hemoglobin 8.6 g/dL (12.0-15.0); Lymphocyte # 0.28 X10^3/ul (4.0); Lymphocyte % 9.9 % (19-41); Mean Corpuscular Hgb 30.3 pg (27.0-32.0); Mean Corpuscular Volume 94.7 fL (81-99); Mean Platelet Vol. 11.4 fl (6.2-12.0); Monocyte# 0.22 X10^3/uL; Monocyte% 7.8 % (0-10); NRBC Flagged by Analyzer 0.7 % (0-5); Neutrophil % 81.2 % (47-70); POSITIVE COUNT YES; POSITIVE DIFFERENTIAL YES; Platelet Count 50 K/mm3 (150-450); RBC Distribution Width CV 15.2 % (11.6-14.6); RBC Distribution Width SD 52.7 fl (35.1-43.9); Red Blood Count 2.84 M/mm3 (4.2-5.4); White Blood Count 2.8 K/mm3 (4.4-11.0)
[2020-05-03 05:33] LABS: Differential Indicated SCAN CRITERIA MET
[2020-05-03 05:36] LABS: International Normalized Ratio 1.6; Prothrombin Time (Protime)PT. 18.4 SECONDS (11.7-14.9)
[2020-05-03 05:37] LABS: Partial Thromboplast Time 61.8 Seconds (24.1-36.2)
[2020-05-03 05:40] LABS: Anion Gap 5 (5-15); BUN 21 mg/dL (7-18); BUN/Creat Ratio 18.1 RATIO (10-20); Calcium,Total 7.3 mg/dL (8.5-10.1); Chloride 114 mmol/L (98-107); Creatinine, Serum 1.16 mg/dL (0.55-1.02); EST Glomerular Filtration Rate 48 mL/min (>60); Est Glom Filt Rate - Afr Amer 58 mL/min (>60); Estimated Creatinine Clearance 32.12 ml/min; Glucose 147 mg/dL (74-106); Sodium Level 138 mmol/L (136-145)
[2020-05-03] MEDS: Dicyclomine 10 MG Capsule PO ×3 (06:36→17:04)
[2020-05-03] MEDS: Levothyroxine 75 MCG Tablet PO (06:36)
[2020-05-03 06:45] LABS: Differential Comment SCANNED
[2020-05-03 06:46] LABS: Ovalocyte RARE; Platelet Estimate MOD DEC (ADEQ); Tear Drop Cell 1+
--- NOTE | 2020-05-03 08:12 | PCM.PN.BLA ---
Progress Note Hematology progress note: 79-year-old lady with anemia chronic disease, chronic liver disease and chronic renal insufficiency who presented with progressive anemia. She also is on warfarin for prosthetic mitral valve, and her prothrombin time was significantly elevated on admission. Her hemoglobin was 5.6, and she received 6 unit of red blood cell. Her platelet count was down to 61,000 and she was on heparin the next day. Her blood count continued to decrease over the next 2 days to 50,000 today. He has no clinical bleeding or increased bruising on warfarin. She denies melena or rectal bleeding. No petechiae on exam. IMPRESSION: 79-year lady with prosthetic mitral valve on warfarin, chronic anemia secondary to GI bleeding, chronic renal disease and liver disease. Recent thrombocytopenia secondary to delusional effect of blood transfusion. No clinical evidence for HIT. Anemia improved after blood transfusion, otherwise stable with no clinical bleeding. PLAN: -Continue heparin & continue warfarin until PT/INR is therapeutic. -Transfuse platelet today and repeat CBC this evening. -If her blood count is stable, may be discharged follow-up with Dr. Mendoza for management of anticoagulation -Follow-up in my office for Aranesp injection and possible blood transfusion later this week. cc: Dr. Eddie Mendoza, Dr. Edd Thomas, Dr. Reggie Best STROKE Vital Signs/Narrative: Vital Signs Temp Pulse Resp BP Pulse Ox 05/03/20 07:04 97 05/03/20 07:00 110 H 05/03/20 06:20 98.4 F 106 H 18 91/52 L 95 05/03/20 04:20 98.4 F 102 H 14 77/42 L 96
[2020-05-03] MEDS: Folic Acid 1 MG Tablet PO (08:48)
[2020-05-03] MEDS: Magnesium Chloride 64 MG Delay Rel.Tablet 128 MG PO (08:49)
[2020-05-03] MEDS: Venlafaxine HCl 75 MG Tablet 37.5 MG PO ×2 (08:49→21:52)
[2020-05-03] MEDS: Cyanocobalamin 500 MCG Tablet 2500 MCG PO (08:50)
--- NOTE | 2020-05-03 13:22 | PCM.PN.HOSP ---
<Royer Oviedo PA - Last Filed: 05/03/20 13:22> Reason for Visit: Anemia, blood in stool Subjective: Pt upset that she must remain in the hospital. She is still weak and LH with exertion. No complaints at rest. No SOB. Bruising in UE - pt states this is actually improved. Vitals/I&O's: Vital Signs Temp Pulse Resp BP Pulse Ox 98.0 F 108 H 19 H 61/44 L 94 05/03/20 12:24 05/03/20 12:24 05/03/20 12:24 05/03/20 12:24 05/03/20 12:24 Oxygen Flow Rate (L/min) 2 Oxygen Delivery Method Room Air Weight: 126 lb 11.2 oz Body Mass Index (BMI) 21.5 Finger Stick Blood Glucose 194 Intake and Output for Last 24 Hours 05/01/20 05/02/20 05/03/20 23:59 23:59 23:59 Intake Total 1495.80 / 1495.80 1264.53 / 1264.53 742.97 / 742.97 Output Total 200 / 200 0 / 0 Balance 1495.80 / 1495.80 1064.53 / 1064.53 742.97 / 742.97 General: Alert, Oriented x3, Cooperative HEENT: Atraumatic, PERRLA, EOMI, Normocephalic Neck: Supple, No JVD, Negative Carotid Bruits Lungs: Clear to auscultation, Normal air movement Cardiovascular: Regular rate, Murmur - 3/6 systolic murmur audible at all positions. Abdomen: Bowel Sounds Present, Soft, Non Tender Extremities: No edema, Capillary Refill Less than 3 Seconds Skin: No rashes, No breakdown, - - generalized marked pallor. Bruising around AC/elbow, mild swelling. Musculoskeletal: No Tenderness to Palpation of Joints or Extremities Neurological: Cranial nerves II-XII grossly intact Psych/Mental Status: Normal Affect, Appropriate Laboratory Results 05/02/20 17:47: APTT 56.3 H 05/03/20 04:58: WBC 2.8 L, RBC 2.84 L, Hgb 8.6 L, Hct 26.9 L, MCV 94.7, MCH 30.3, MCHC 32.0, RDW Std Deviation 52.7 H, RDW Coeff of Uriel 15.2 H, Plt Count 50 L*, MPV 11.4, Immature Gran % (Auto) 0.700, Neut % (Auto) 81.2 H, Lymph % (Auto) 9.9 L, [place] % (Auto) 7.8, Eos % (Auto) 0.0, Baso % (Auto) 0.4, Absolute Neuts (auto) 2.3, Absolute Lymphs (auto) 0.28 L, Nucleated RBC % 0.7, Differential Comment SCANNED, Diff Path Review May foll, Platelet Estimate MOD DEC, Tear Drop Cells 1+, Ovalocytes RARE 05/03/20 04:58: PT 18.4 H, INR 1.6, APTT 61.8 H 05/03/20 04:58: Sodium 138, Potassium 4.0, Chloride 114 H, Carbon Dioxide 19.0 L, Anion Gap 5, BUN 21 H, Creatinine 1.16 H, Estim Creat Clear Calc 32.12, Est GFR (MDRD) Af Amer 58 L, Est GFR (MDRD) Non-Af 48 L, BUN/Creatinine Ratio 18.1, Glucose 147 H, Calcium 7.3 L Current Medications Acetaminophen (Tylenol) 650 mg PO Q6H PRN PRN PRN Reason: Pain 1-10 or Fever Hydrocodone Bitart/Acetaminophen ([place] 5mg-325mg) 0.5 tablet PO DAILY PRN PRN PRN Reason: Pain Score 1-10/10 Albuterol Sulfate (Ventolin Aerosols) 2.5 mg INHALATION Q6H PRN PRN PRN Reason: SOB &/OR WHEEZING Atorvastatin Calcium (Lipitor) 20 mg PO QHS [facility] Last Admin: 05/02/20 22:16 Dose: 20 mg Documented by: Cholecalciferol (Vitamin D (25mcg)) 1,000 unit PO DAILY [facility] Last Admin: 05/03/20 08:49 Dose: 1,000 unit Documented by: Cyanocobalamin (Vitamin B12) 2,500 mcg PO DAILY [facility] Last Admin: 05/03/20 08:50 Dose: 2,500 mcg Documented by: Dicyclomine HCl (Bentyl) 10 mg PO TIDAC [facility] Last Admin: 05/03/20 12:16 Dose: 10 mg Documented by: Ferrous Sulfate (Ferrous Sulfate) 650 mg PO QHS [facility] Last Admin: 05/02/20 22:16 Dose: 650 mg Documented by: Folic Acid (Folic Acid) 1 mg PO DAILY@0800 [facility] Last Admin: 05/03/20 08:48 Dose: 1 mg Documented by: Heparin Sodium (Porcine) (Heparin Na) 0 unit IV UD PRN; Protocol PRN Reason: HEPARIN DOSAGE ADJUSTMENT Last Admin: 05/01/20 17:18 Dose: 1,000 unit Documented by: Heparin Sodium/Sodium Chloride () 25,000 unit in 250 mls @ 8 mls/hr IV .[id number] [facility]; Protocol Last Admin: 05/03/20 00:26 Dose: 900 units/hr, 9 mls/hr Documented by: Pantoprazole Sodium 40 mg/ (Sodium Chloride) 110 mls @ 330 mls/hr IV Q12 [facility] Last Infusion: 05/03/20 11:02 Dose: Infused Documented by: Levothyroxine Sodium (Synthroid) 75 mcg PO DAILY@0600 [facility] Last Admin: 05/03/20 06:36 Dose: 75 mcg Documented by: Magnesium Chloride (Mag64) 128 mg PO DAILY [facility] Last Admin: 05/03/20 08:49 Dose: 128 mg Documented by: Nicotine (Nicoderm Cq (Pbkc)) 21 mg TRANSDERM. DAILY [facility] Last Admin: 05/03/20 08:47 Dose: Not Given Documented by: Ondansetron HCl (Zofran Odt) 4 mg PO Q6H PRN PRN PRN Reason: NAUSEA Potassium Chloride (K-Dur) 20 meq PO DAILY@0800 [facility] Last Admin: 05/03/20 08:48 Dose: 20 meq Documented by: Sodium Chloride () 10 - 40 ml IV UD PRN PRN Reason: SALINE FLUSH Last Admin: 05/01/20 21:29 Dose: 40 ml Documented by: Venlafaxine HCl (Effexor) 37.5 mg PO BID [facility] Last Admin: 05/03/20 08:49 Dose: 37.5 mg Documented by: STROKE Vital Signs/Narrative: Vital Signs Temp Pulse Resp BP Pulse Ox 05/03/20 12:24 98.0 F 108 H 19 H 61/44 L 94 05/03/20 10:30 98.3 F 107 H 20 H 60/44 L 94 Medical Necessity - Tobacco Use Smoking Status: Current every day smoker Tobacco Use: Cigarettes - 1-1.5PPD Assessment/Plan All Active Problems (Last Reviewed 04/30/20 @ 06:[address] Zia Banks MD) Presence of permanent cardiac pacemaker (Resolved 08/30/18) History of mitral valve replacement with mechanical valve (Resolved 07/22/08) Anemia (Acute) 1. Acute on chronic anemia, pancytopenia - 2/2 blood loss 2/2 GI bleed unclear source. Hx extensive workup with no plan for further at this time. stable. S/p 6 units PRBC. Platelets per oncology. 2. Mechanical mitral valve - inr goal 2.5-3.5. Continue heparin drip while waiting for INR to reach goal. 3. 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 mild tachy. metoprolol held for poor BP. 3. hypothyroidism - synthroid 4. Malnutrition - transportation maintenance specialist consult 5. COPD, chronic hypoxic resp failure - no exacerbation - baseline o2 = 2 lpm in the evening. 6. Nicotine abuse - 1-1.5 ppd smoker. provide patch DVT ppx: warfarin, heparin bridge DC planning: pt awaiting INR goal, remain on heparin drip in the meantime. This patient was seen by Royer Oviedo PA-C under the supervision of Doctor Estephania. <Reggie Best - Last Filed: 05/03/20 14:15> Vitals/I&O's: Vital Signs Temp Pulse Resp BP Pulse Ox 36.7 C 108 H 19 H 61/44 L 94 05/03/20 12:30 05/03/20 12:30 05/03/20 12:30 05/03/20 12:30 05/03/20 12:30 Oxygen Flow Rate (L/min) 2 Oxygen Delivery Method Room Air Weight: 57.47 kg Body Mass Index (BMI) 21.5 Finger Stick Blood Glucose 194 Intake and Output for Last 24 Hours 05/01/20 05/02/20 05/03/20 23:59 23:59 23:59 Intake Total 1495.80 / 1495.80 1264.53 / 1264.53 742.97 / 742.97 Output Total 200 / 200 0 / 0 Balance 1495.80 / 1495.80 1064.53 / 1064.53 742.97 / 742.97 General: Alert, Cooperative HEENT: Atraumatic, Normocephalic Lungs: Clear to auscultation, Normal air movement Cardiovascular: Regular rate, Murmur Abdomen: Bowel Sounds Present, Soft, Non Tender Extremities: No edema, No Calf Tenderness Skin: No rashes, No breakdown, - Psych/Mental Status: Normal Affect, Appropriate Laboratory Results 05/02/20 04:30: Diff Path Review Reviewed 05/02/20 17:47: APTT 56.3 H 05/03/20 04:58: WBC 2.8 L, RBC 2.84 L, Hgb 8.6 L, Hct 26.9 L, MCV 94.7, MCH 30.3, MCHC 32.0, RDW Std Deviation 52.7 H, RDW Coeff of Uriel 15.2 H, Plt Count 50 L*, MPV 11.4, Immature Gran % (Auto) 0.700, Neut % (Auto) 81.2 H, Lymph % (Auto) 9.9 L, [place] % (Auto) 7.8, Eos % (Auto) 0.0, Baso % (Auto) 0.4, Absolute Neuts (auto) 2.3, Absolute Lymphs (auto) 0.28 L, Nucleated RBC % 0.7, Differential Comment SCANNED, Diff Path Review Reviewed, Platelet Estimate MOD DEC, Tear Drop Cells 1+, Ovalocytes RARE 05/03/20 04:58: PT 18.4 H, INR 1.6, APTT 61.8 H 05/03/20 04:58: Sodium 138, Potassium 4.0, Chloride 114 H, Carbon Dioxide 19.0 L, Anion Gap 5, BUN 21 H, Creatinine 1.16 H, Estim Creat Clear Calc 32.12, Est GFR (MDRD) Af Amer 58 L, Est GFR (MDRD) Non-Af 48 L, BUN/Creatinine Ratio 18.1, Glucose 147 H, Calcium 7.3 L Current Medications Acetaminophen (Tylenol) 650 mg PO Q6H PRN PRN PRN Reason: Pain 1-10 or Fever Hydrocodone Bitart/Acetaminophen ([place] 5mg-325mg) 0.5 tablet PO DAILY PRN PRN PRN Reason: Pain Score 1-10/10 Albuterol Sulfate (Ventolin Aerosols) 2.5 mg INHALATION Q6H PRN PRN PRN Reason: SOB &/OR WHEEZING Atorvastatin Calcium (Lipitor) 20 mg PO QHS [facility] Last Admin: 05/02/20 22:16 Dose: 20 mg Documented by: Cholecalciferol (Vitamin D (25mcg)) 1,000 unit PO DAILY [facility] Last Admin: 05/03/20 08:49 Dose: 1,000 unit Documented by: Cyanocobalamin (Vitamin B12) 2,500 mcg PO DAILY [facility] Last Admin: 05/03/20 08:50 Dose: 2,500 mcg Documented by: Dicyclomine HCl (Bentyl) 10 mg PO TIDAC [facility] Last Admin: 05/03/20 12:16 Dose: 10 mg Documented by: Ferrous Sulfate (Ferrous Sulfate) 650 mg PO QHS [facility] Last Admin: 05/02/20 22:16 Dose: 650 mg Documented by: Folic Acid (Folic Acid) 1 mg PO DAILY@0800 [facility] Last Admin: 05/03/20 08:48 Dose: 1 mg Documented by: Heparin Sodium (Porcine) (Heparin Na) 0 unit IV UD PRN; Protocol PRN Reason: HEPARIN DOSAGE ADJUSTMENT Last Admin: 05/01/20 17:18 Dose: 1,000 unit Documented by: Heparin Sodium/Sodium Chloride () 25,000 unit in 250 mls @ 8 mls/hr IV .[id number] [facility]; Protocol Last Admin: 05/03/20 00:26 Dose: 900 units/hr, 9 mls/hr Documented by: Pantoprazole Sodium 40 mg/ (Sodium Chloride) 110 mls @ 330 mls/hr IV Q12 [facility] Last Infusion: 05/03/20 11:02 Dose: Infused Documented by: Levothyroxine Sodium (Synthroid) 75 mcg PO DAILY@0600 [facility] Last Admin: 05/03/20 06:36 Dose: 75 mcg Documented by: Magnesium Chloride (Mag64) 128 mg PO DAILY [facility] Last Admin: 05/03/20 08:49 Dose: 128 mg Documented by: Nicotine (Nicoderm Cq (Pbkc)) 21 mg TRANSDERM. DAILY [facility] Last Admin: 05/03/20 08:47 Dose: Not Given Documented by: Ondansetron HCl (Zofran Odt) 4 mg PO Q6H PRN PRN PRN Reason: NAUSEA Potassium Chloride (K-Dur) 20 meq PO DAILY@0800 [facility] Last Admin: 05/03/20 08:48 Dose: 20 meq Documented by: Sodium Chloride () 10 - 40 ml IV UD PRN PRN Reason: SALINE FLUSH Last Admin: 05/01/20 21:29 Dose: 40 ml Documented by: Venlafaxine HCl (Effexor) 37.5 mg PO BID [facility] Last Admin: 05/03/20 08:49 Dose: 37.5 mg Documented by: STROKE Vital Signs/Narrative: Vital Signs Temp Pulse Resp BP Pulse Ox 05/03/20 12:30 36.7 C 108 H 19 H 61/44 L 94 05/03/20 12:24 36.7 C 108 H 19 H 61/44 L 94 05/03/20 10:30 36.8 C 107 H 20 H 60/44 L 94 Assessment/Plan Patient seen and examined independently. Data reviewed. I agree with the above note by the physician operations manager assistant. Assessment: 1. acute blood anemia 2/2 GI bleed. stable after 6 units PRBCs 2. GI bleed, improving. Has had a very extensive work up in the past that has not yielded a source. Patient not interested in additional intervention. 3. supratherapeutic INR. due to warfarin, but also poor oral intake. 4. Mechanical MV 5. moderate protein malnutrition 6. chronic hypotension: asymptomatic. Questionable how accurrate BP readings are 7. thrombocytopenia: not HIT Plan received vitamin K and FFP for reversal of INR no additional GI work at this institution, nor does patient want any additional work up on heparin gtt and restarting warfarin VTE prophylaxis with SCDs, can be removed as she is on anticoagulation no need for vasopressors If INR continues to be labile, PO intake poor, consider scheduled low-dose vitamin K transfuse platelets Greater than 35 minutes of which greater than 50% of the time was discussing with the patient about remaining in the hospital given her medical complexity and the fact that if she were to go home she would not get adequate anticoagulation would be at risk for potential embolic phenomenon including stroke. Patient still insisted about leaving tomorrow I told her that may not be feasible but it may be 2 to 3 days of her staying in the hospital her INR is therapeutic. I told her that the main issue that got her in the hospital was the acute anemia and GI bleed which have resolved, fortunately. However, patient still is being medically managed and treated still warrants further hospitalization. Inpatient E&M: [id number] [facility] L3
[2020-05-03 13:36] LABS: Pathologist Review Reviewed
[2020-05-03 13:36] LABS: Pathologist Review Reviewed
--- NOTE | 2020-05-03 21:25 | NURSING ---
RN CALLED BLOOD BANK TO VERIFY PINK SLIP WAS NOT NEEDED TO VERIFY BLOOD AND STATED NO IT WAS NOT. ALSO OKAY TO GIVE O POSITIVE PLATELETS TO PATIENT.
[2020-05-03] MEDS: 0.9% Saline Lock 10 ML Syringe IV (21:51)
[2020-05-03] MEDS: Atorvastatin Calcium 20 MG Tablet PO (21:53)
[2020-05-03] MEDS: Ferrous Sulfate 325 MG Tablet 650 MG PO (21:53)
[2020-05-04] VITALS (22 sets, daily range): BP systolic 71–103; BP diastolic 41–76; PULSE 106–110; RESP 16–20; TEMP 36.2–37.2; O2SAT 93–100
[2020-05-04] MEDS: Levothyroxine 75 MCG Tablet PO (04:23)
[2020-05-04] MEDS: Dicyclomine 10 MG Capsule PO ×3 (06:05→16:07)
[2020-05-04 06:11] LABS: Absolute Lymphocyte Count 0.25 X10^3/uL (0.83-4.51); Absolute Neutrophil Count 2.1 X10^3/uL (2.0-7.7); Basophil# 0.01 X10^3/uL; Basophil% 0.4 % (0-1); Hematocrit 25.2 % (37-47); Hemoglobin 7.9 g/dL (12.0-15.0); Lymphocyte # 0.25 X10^3/ul (4.0); Lymphocyte % 9.5 % (19-41); Mean Corp Hgb Conc 31.3 g/dL (32-36); Mean Corpuscular Hgb 29.4 pg (27.0-32.0); Mean Corpuscular Volume 93.7 fL (81-99); Mean Platelet Vol. 11.4 fl (6.2-12.0); Monocyte# 0.28 X10^3/uL; Monocyte% 10.6 % (0-10); NRBC Flagged by Analyzer 1.1 % (0-5); Neutrophil # 2.08 X10^3/uL (2.7-7.7); Neutrophil % 78.7 % (47-70); POSITIVE COUNT YES; POSITIVE DIFFERENTIAL YES; Platelet Count 59 K/mm3 (150-450); RBC Distribution Width CV 15.1 % (11.6-14.6); RBC Distribution Width SD 51.7 fl (35.1-43.9); Red Blood Count 2.69 M/mm3 (4.2-5.4); White Blood Count 2.6 K/mm3 (4.4-11.0)
[2020-05-04 06:12] LABS: Differential Indicated SCAN CRITERIA MET
[2020-05-04 06:18] LABS: International Normalized Ratio 1.9; Prothrombin Time (Protime)PT. 21.3 SECONDS (11.7-14.9)
[2020-05-04 06:19] LABS: Partial Thromboplast Time 74.7 Seconds (24.1-36.2)
[2020-05-04 06:29] LABS: Anion Gap 4 (5-15); BUN 16 mg/dL (7-18); BUN/Creat Ratio 13.2 RATIO (10-20); Calcium,Total 7.5 mg/dL (8.5-10.1); Chloride 112 mmol/L (98-107); Creatinine, Serum 1.21 mg/dL (0.55-1.02); Differential Comment SCANNED; EST Glomerular Filtration Rate 46 mL/min (>60); Est Glom Filt Rate - Afr Amer 55 mL/min (>60); Estimated Creatinine Clearance 30.79 ml/min; Glucose 117 mg/dL (74-106); Platelet Estimate MOD DEC (ADEQ); Sodium Level 138 mmol/L (136-145)
--- NOTE | 2020-05-04 08:13 | PN_ITS ---
Progress Note Hematology progress note: 79-year-old lady with anemia chronic disease, chronic liver disease and chronic renal insufficiency who presented with progressive anemia. She also is on warfarin for prosthetic mitral valve, and her prothrombin time was significantly elevated on admission. Her hemoglobin was 5.6, and she received 6 unit of red blood cell. Her platelet count was down to 61,000 and she was on heparin the next day. Her blood count continued to decrease over the next 2 days to 50,000. She received 1 unit of pheresis platelet yesterday. she has no clinical bleeding or increased bruising on warfarin. PT/INR 1.9. She had black tarry stool yesterday and her hemoglobin has dropped. Laboratory Results - last 24 hr 05/02/20 05/03/20 05/03/20 04:30 04:58 16:05 WBC RBC Hgb Hct MCV MCH MCHC RDW Std Deviation RDW Coeff of Uriel Plt Count MPV Immature Gran % (Auto) Neut % (Auto) Lymph % (Auto) [place] % (Auto) Eos % (Auto) Baso % (Auto) Absolute Neuts (auto) Absolute Lymphs (auto) Nucleated RBC % Differential Comment Diff Path Review Reviewed Reviewed Platelet Estimate PT INR APTT Sodium Potassium Chloride Carbon Dioxide Anion Gap BUN Creatinine Estim Creat Clear Calc Est GFR (MDRD) Af Amer Est GFR (MDRD) Non-Af BUN/Creatinine Ratio Glucose Calcium Blood Type A POSITIVE 05/04/20 05/04/20 05/04/20 05:48 05:48 05:48 WBC 2.6 L RBC 2.69 L Hgb 7.9 L Hct 25.2 L MCV 93.7 MCH 29.4 MCHC 31.3 L RDW Std Deviation 51.7 H RDW Coeff of Uriel 15.1 H Plt Count 59 L MPV 11.4 Immature Gran % (Auto) 0.800 Neut % (Auto) 78.7 H Lymph % (Auto) 9.5 L [place] % (Auto) 10.6 H Eos % (Auto) 0.0 Baso % (Auto) 0.4 Absolute Neuts (auto) 2.1 Absolute Lymphs (auto) 0.25 L Nucleated RBC % 1.1 Differential Comment SCANNED Diff Path Review May foll Platelet Estimate MOD DEC PT 21.3 H INR 1.9 APTT 74.7 H Sodium 138 Potassium 4.0 Chloride 112 H Carbon Dioxide 22.0 Anion Gap 4 L BUN 16 Creatinine 1.21 H Estim Creat Clear Calc 30.79 Est GFR (MDRD) Af Amer 55 L Est GFR (MDRD) Non-Af 46 L BUN/Creatinine Ratio 13.2 Glucose 117 H Calcium 7.5 L Blood Type IMPRESSION: 79-year lady with prosthetic mitral valve on warfarin, chronic anemia secondary to GI bleeding, chronic renal disease and liver disease. Recent thrombocytopenia secondary to delusional effect of blood transfusion. No clinical evidence for HIT. -Drop in hemoglobin/hematocrit and melena last evening suggest recent GI bleeding on anticoagulation therapy. -PT/INR almost therapeutic on bridging IV heparin PLAN: -Continue heparin until PT/INR is therapeutic. -Transfuse 2 units of PRBC today and repeat CBC this evening for GI bleeding on anticoagulation. -Monitor and Hemoccult stool. -If her blood count is stable & PT/INR is therapeutic on Coumadin, may be discharge home and follow-up with Dr. Mendoza for management of anticoagulation -Follow-up in my office for Aranesp injection and possible blood transfusion later this week. cc: Dr. Eddie Mendoza, Dr. Edd Thomas, Dr. Ge Mccall STROKE Vital Signs/Narrative: Vital Signs Temp Pulse Resp BP Pulse Ox 05/04/20 08:00 98.4 F 109 H 20 H 71/58 L 99 05/04/20 07:35 98 05/04/20 06:48 110 H 05/04/20 06:00 98.9 F 107 H 20 H 82/62 L 99
[2020-05-04] MEDS: Folic Acid 1 MG Tablet PO (08:19)
[2020-05-04] MEDS: Venlafaxine HCl 75 MG Tablet 37.5 MG PO ×2 (09:37→20:43)
[2020-05-04] MEDS: 0.9% Saline Lock 10 ML Syringe IV (09:38)
[2020-05-04] MEDS: Cyanocobalamin 500 MCG Tablet 2500 MCG PO (09:38)
[2020-05-04] MEDS: Magnesium Chloride 64 MG Delay Rel.Tablet 128 MG PO (09:44)
--- NOTE | 2020-05-04 11:45 | PCM.PN.HOSP ---
<Royer Oviedo - Last Filed: 05/04/20 12:42> Reason for Visit: anemia GI bleed Subjective: Pt resting comfortably in chair. Ongoing fatigue. No LH/dizziness. No fever/chills. Pt anxious to return home. Vitals/I&O's: Vital Signs Temp Pulse Resp BP Pulse Ox 98.4 F 106 H 20 H 81/60 L 96 05/04/20 10:00 05/04/20 10:00 05/04/20 10:00 05/04/20 10:00 05/04/20 10:00 Oxygen Flow Rate (L/min) 2 Oxygen Delivery Method Room Air Weight: 128 lb 4.944 oz Body Mass Index (BMI) 21.5 Finger Stick Blood Glucose 194 Intake and Output for Last 24 Hours 05/02/20 05/03/20 05/04/20 23:59 23:59 23:59 Intake Total 1264.53 / 1264.53 1472.97 / 1472.97 338 / 338 Output Total 200 / 200 0 / 0 Balance 1064.53 / 1064.53 1472.97 / 1472.97 338 / 338 General: Alert, Oriented x3, Cooperative HEENT: Atraumatic, PERRLA, EOMI, Normocephalic Neck: Supple, No JVD, Negative Carotid Bruits Lungs: Clear to auscultation, Normal air movement Cardiovascular: Regular rate, No murmurs Abdomen: Bowel Sounds Present, Soft, Non Tender Extremities: No edema, Capillary Refill Less than 3 Seconds Skin: No rashes, No breakdown, - - marked generalized pallor Musculoskeletal: No Tenderness to Palpation of Joints or Extremities Neurological: Cranial nerves II-XII grossly intact Psych/Mental Status: Normal Affect, Appropriate, Alert and oriented to time, place, person, mood and affect Laboratory Results 05/02/20 04:30: Diff Path Review Reviewed 05/03/20 04:58: Diff Path Review Reviewed 05/03/20 16:05: Blood Type A POSITIVE 05/03/20 16:05: Blood Type Pending, Antibody Screen Pending, Crossmatch See Detail 05/04/20 05:48: PT 21.3 H, INR 1.9, APTT 74.7 H 05/04/20 05:48: WBC 2.6 L, RBC 2.69 L, Hgb 7.9 L, Hct 25.2 L, MCV 93.7, MCH 29.4, MCHC 31.3 L, RDW Std Deviation 51.7 H, RDW Coeff of Uriel 15.1 H, Plt Count 59 L, MPV 11.4, Immature Gran % (Auto) 0.800, Neut % (Auto) 78.7 H, Lymph % (Auto) 9.5 L, Nance % (Auto) 10.6 H, Eos % (Auto) 0.0, Baso % (Auto) 0.4, Absolute Neuts (auto) 2.1, Absolute Lymphs (auto) 0.25 L, Nucleated RBC % 1.1, Differential Comment SCANNED, Diff Path Review December, Platelet Estimate MOD 05/04/20 05:48: Sodium 138, Potassium 4.0, Chloride 112 H, Carbon Dioxide 22.0, Anion Gap 4 L, BUN 16, Creatinine 1.21 H, Estim Creat Clear Calc 30.79, Est GFR (MDRD) Af Amer 55 L, Est GFR (MDRD) Non-Af 46 L, BUN/Creatinine Ratio 13.2, Glucose 117 H, Calcium 7.5 L Current Medications Acetaminophen (Tylenol) 650 mg PO Q6H PRN PRN PRN Reason: Pain 1-10 or Fever Hydrocodone Bitart/Acetaminophen ([place] 5mg-325mg) 0.5 tablet PO DAILY PRN PRN PRN Reason: Pain Score 1-10/10 Albuterol Sulfate (Ventolin Aerosols) 2.5 mg INHALATION Q6H PRN PRN PRN Reason: SOB &/OR WHEEZING Atorvastatin Calcium (Lipitor) 20 mg PO QHS [facility] Last Admin: 05/03/20 21:53 Dose: 20 mg Documented by: Cholecalciferol (Vitamin D (25mcg)) 1,000 unit PO DAILY [facility] Last Admin: 05/04/20 09:38 Dose: 1,000 unit Documented by: Cyanocobalamin (Vitamin B12) 2,500 mcg PO DAILY [facility] Last Admin: 05/04/20 09:38 Dose: 2,500 mcg Documented by: Dicyclomine HCl (Bentyl) 10 mg PO TIDAC [facility] Last Admin: 05/04/20 11:21 Dose: 10 mg Documented by: Ferrous Sulfate (Ferrous Sulfate) 650 mg PO QHS [facility] Last Admin: 05/03/20 21:53 Dose: 650 mg Documented by: Folic Acid (Folic Acid) 1 mg PO DAILY@0800 [facility] Last Admin: 05/04/20 08:19 Dose: 1 mg Documented by: Heparin Sodium (Porcine) (Heparin Na) 0 unit IV UD PRN; Protocol PRN Reason: HEPARIN DOSAGE ADJUSTMENT Last Admin: 05/01/20 17:18 Dose: 1,000 unit Documented by: Heparin Sodium/Sodium Chloride () 25,000 unit in 250 mls @ 8 mls/hr IV .[id number] [facility]; Protocol Last Admin: 05/04/20 01:46 Dose: 900 units/hr, 9 mls/hr Documented by: Pantoprazole Sodium 40 mg/ (Sodium Chloride) 110 mls @ 330 mls/hr IV Q12 [facility] Last Infusion: 05/04/20 10:40 Dose: Infused Documented by: Levothyroxine Sodium (Synthroid) 75 mcg PO DAILY@0600 [facility] Last Admin: 05/04/20 04:23 Dose: 75 mcg Documented by: Magnesium Chloride (Mag64) 128 mg PO DAILY [facility] Last Admin: 05/04/20 09:44 Dose: 128 mg Documented by: Nicotine (Nicoderm Cq (Pbkc)) 21 mg TRANSDERM. DAILY [facility] Last Admin: 05/04/20 09:37 Dose: Not Given Documented by: Ondansetron HCl (Zofran Odt) 4 mg PO Q6H PRN PRN PRN Reason: NAUSEA Potassium Chloride (K-Dur) 20 meq PO DAILY@0800 [facility] Last Admin: 05/04/20 08:19 Dose: 20 meq Documented by: Sodium Chloride () 10 - 40 ml IV UD PRN PRN Reason: SALINE FLUSH Last Admin: 05/04/20 09:38 Dose: 10 ml Documented by: Venlafaxine HCl (Effexor) 37.5 mg PO BID [facility] Last Admin: 05/04/20 09:37 Dose: 37.5 mg Documented by: Warfarin Sodium (Jantoven) 2 mg PO DAILY@1700 [facility] STROKE Vital Signs/Narrative: Vital Signs Temp Pulse Resp BP Pulse Ox 05/04/20 10:00 98.4 F 106 H 20 H 81/60 L 96 05/04/20 08:00 98.4 F 109 H 20 H 71/58 L 99 Medical Necessity - Tobacco Use Smoking Status: Current every day smoker Tobacco Use: Cigarettes - 1-1.5PPD Assessment/Plan All Active Problems (Last Reviewed 04/30/20 @ 06:[address] Zia Banks MD) Presence of permanent cardiac pacemaker (Resolved 08/30/18) History of mitral valve replacement with mechanical valve (Resolved 07/22/08) Anemia (Acute) 1. Acute on chronic anemia, pancytopenia - transfuse 1 more unit PRBC. repeat CBC in AM. 2. Mechanical mitral valve - inr goal 2.5-3.5. Continue heparin drip while waiting for INR to reach goal. 3. 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 mild tachy. metoprolol held for poor BP. 3. hypothyroidism - synthroid 4. Malnutrition - correctional agency director consult 5. COPD, chronic hypoxic resp failure - no exacerbation - baseline o2 = 2 lpm in the evening. 6. Nicotine abuse - 1-1.5 ppd smoker. provide patch DVT ppx: warfarin, heparin bridge DC planning: pt awaiting INR goal, remain on heparin drip in the meantime. This patient was seen by Royer Oviedo PA-C under the supervision of Doctor Cal <Ge Mccall - Last Filed: 05/04/20 13:08> Vitals/I&O's: Vital Signs Temp Pulse Resp BP Pulse Ox 98.4 F 106 H 20 H 72/55 L 96 05/04/20 12:00 05/04/20 12:00 05/04/20 12:00 05/04/20 12:00 05/04/20 12:00 Oxygen Flow Rate (L/min) 2 Oxygen Delivery Method Room Air Weight: 58.2 kg Body Mass Index (BMI) 21.5 Finger Stick Blood Glucose 194 Intake and Output for Last 24 Hours 05/02/20 05/03/20 05/04/20 23:59 23:59 23:59 Intake Total 1264.53 / 1264.53 1472.97 / 1472.97 738 / 738 Output Total 200 / 200 0 / 0 Balance 1064.53 / 1064.53 1472.97 / 1472.97 738 / 738 Laboratory Results 05/02/20 04:30: Diff Path Review Reviewed 05/03/20 04:58: Diff Path Review Reviewed 05/03/20 16:05: Blood Type A POSITIVE 05/03/20 16:05: Blood Type Pending, Antibody Screen Pending, Crossmatch See Detail 05/04/20 05:48: PT 21.3 H, INR 1.9, APTT 74.7 H 05/04/20 05:48: WBC 2.6 L, RBC 2.69 L, Hgb 7.9 L, Hct 25.2 L, MCV 93.7, MCH 29.4, MCHC 31.3 L, RDW Std Deviation 51.7 H, RDW Coeff of Uriel 15.1 H, Plt Count 59 L, MPV 11.4, Immature Gran % (Auto) 0.800, Neut % (Auto) 78.7 H, Lymph % (Auto) 9.5 L, Nance % (Auto) 10.6 H, Eos % (Auto) 0.0, Baso % (Auto) 0.4, Absolute Neuts (auto) 2.1, Absolute Lymphs (auto) 0.25 L, Nucleated RBC % 1.1, Differential Comment SCANNED, Diff Path Review December foll, Platelet Estimate MOD DEC 05/04/20 05:48: Sodium 138, Potassium 4.0, Chloride 112 H, Carbon Dioxide 22.0, Anion Gap 4 L, BUN 16, Creatinine 1.21 H, Estim Creat Clear Calc 30.79, Est GFR (MDRD) Af Amer 55 L, Est GFR (MDRD) Non-Af 46 L, BUN/Creatinine Ratio 13.2, Glucose 117 H, Calcium 7.5 L Current Medications Acetaminophen (Tylenol) 650 mg PO Q6H PRN PRN PRN Reason: Pain 1-10 or Fever Hydrocodone Bitart/Acetaminophen ([place] 5mg-325mg) 0.5 tablet PO DAILY PRN PRN PRN Reason: Pain Score 1-10/10 Albuterol Sulfate (Ventolin Aerosols) 2.5 mg INHALATION Q6H PRN PRN PRN Reason: SOB &/OR WHEEZING Atorvastatin Calcium (Lipitor) 20 mg PO QHS [facility] Last Admin: 05/03/20 21:53 Dose: 20 mg Documented by: Cholecalciferol (Vitamin D (25mcg)) 1,000 unit PO DAILY [facility] Last Admin: 05/04/20 09:38 Dose: 1,000 unit Documented by: Cyanocobalamin (Vitamin B12) 2,500 mcg PO DAILY [facility] Last Admin: 05/04/20 09:38 Dose: 2,500 mcg Documented by: Dicyclomine HCl (Bentyl) 10 mg PO TIDAC [facility] Last Admin: 05/04/20 11:21 Dose: 10 mg Documented by: Ferrous Sulfate (Ferrous Sulfate) 650 mg PO QHS [facility] Last Admin: 05/03/20 21:53 Dose: 650 mg Documented by: Folic Acid (Folic Acid) 1 mg PO DAILY@0800 [facility] Last Admin: 05/04/20 08:19 Dose: 1 mg Documented by: Heparin Sodium (Porcine) (Heparin Na) 0 unit IV UD PRN; Protocol PRN Reason: HEPARIN DOSAGE ADJUSTMENT Last Admin: 05/01/20 17:18 Dose: 1,000 unit Documented by: Heparin Sodium/Sodium Chloride () 25,000 unit in 250 mls @ 8 mls/hr IV .[id number] [facility]; Protocol Last Admin: 05/04/20 01:46 Dose: 900 units/hr, 9 mls/hr Documented by: Pantoprazole Sodium 40 mg/ (Sodium Chloride) 110 mls @ 330 mls/hr IV Q12 [facility] Last Infusion: 05/04/20 10:40 Dose: Infused Documented by: Levothyroxine Sodium (Synthroid) 75 mcg PO DAILY@0600 [facility] Last Admin: 05/04/20 04:23 Dose: 75 mcg Documented by: Magnesium Chloride (Mag64) 128 mg PO DAILY [facility] Last Admin: 05/04/20 09:44 Dose: 128 mg Documented by: Nicotine (Nicoderm Cq (Pbkc)) 21 mg TRANSDERM. DAILY [facility] Last Admin: 05/04/20 09:37 Dose: Not Given Documented by: Ondansetron HCl (Zofran Odt) 4 mg PO Q6H PRN PRN PRN Reason: NAUSEA Potassium Chloride (K-Dur) 20 meq PO DAILY@0800 [facility] Last Admin: 05/04/20 08:19 Dose: 20 meq Documented by: Sodium Chloride () 10 - 40 ml IV UD PRN PRN Reason: SALINE FLUSH Last Admin: 05/04/20 09:38 Dose: 10 ml Documented by: Venlafaxine HCl (Effexor) 37.5 mg PO BID [facility] Last Admin: 05/04/20 09:37 Dose: 37.5 mg Documented by: Warfarin Sodium (Jantoven) 2 mg PO DAILY@1700 [facility] STROKE Vital Signs/Narrative: Vital Signs Temp Pulse Resp BP Pulse Ox 05/04/20 12:00 98.4 F 106 H 20 H 72/55 L 96 05/04/20 10:00 98.4 F 106 H 20 H 81/60 L 96 Assessment/Plan This patient was seen in conjunction with Royer Oviedo PA-C . I have independently interviewed and examined the patient and reviewed pertinent historical, laboratory, and other data. Please refer to Royer Oviedo PA-C note for details of this patient's presentation, findings, and recommendations. I have reviewed Royer Oviedo PA-C note and concur with documented findings. In brief, patient is a 79-year-old lady admitted with abnormal labs hemoglobin of 5.6 on on admission Physical Examination: GENERAL: cooperative HEENT: Atraumatic; EYES; Anicteric, Normal Conjunctiva NECK; supple, normal thyroid, RESPIRATORY: Diminished to auscultation CARDIOVASCULAR: Regular S1 S2, GI: soft, normoactive bowel sounds, : No Renal angle tenderness; EXTREMITIES: No edema, no clubbing, MUSCULOSKELETAL: no muscle waisting NEURO: Awake; no lateralizing signs. SKIN: No Rash PSYCH; Flat affect Assessment: 1. Acute on chronic symptomatic anemia 2. Pancytopenia 3. Mechanical valve with subtherapeutic INR 4. Chronic A. fib 5. Hypothyroidism 6. Chronic hypoxic respiratory failure secondary to COPD 7. Tobacco dependence 8. Moderate protein calorie malnutrition Recommendations: 1. I have discussed the results of my overview and impressions with the patient 2. Options for management were reviewed Inpatient E&M: [id number] Subs Hosp L2
[2020-05-04 13:46] LABS: Pathologist Review Reviewed
[2020-05-04] MEDS: Jantoven 2 MG Tablet PO (16:07)
[2020-05-04] MEDS: Atorvastatin Calcium 20 MG Tablet PO (20:42)
[2020-05-04] MEDS: Ferrous Sulfate 325 MG Tablet 650 MG PO (20:42)
[2020-05-05] VITALS (7 sets, daily range): BP systolic 72–98; BP diastolic 52–64; PULSE 105–108; RESP 17–23; TEMP 36.6–37.2; O2SAT 92–99
[2020-05-05] MEDS: Levothyroxine 75 MCG Tablet PO (05:53)
[2020-05-05] MEDS: Dicyclomine 10 MG Capsule PO (05:53)
[2020-05-05 06:27] LABS: Hematocrit 28.8 % (37-47); Hemoglobin 9.1 g/dL (12.0-15.0); Mean Corp Hgb Conc 31.6 g/dL (32-36); Mean Corpuscular Hgb 29.3 pg (27.0-32.0); Mean Corpuscular Volume 92.6 fL (81-99); Mean Platelet Vol. 10.8 fl (6.2-12.0); POSITIVE COUNT YES; Platelet Count 62 K/mm3 (150-450); RBC Distribution Width CV 15.7 % (11.6-14.6); RBC Distribution Width SD 52.3 fl (35.1-43.9); Red Blood Count 3.11 M/mm3 (4.2-5.4); White Blood Count 2.8 K/mm3 (4.4-11.0)
[2020-05-05 06:34] LABS: Prothrombin Time (Protime)PT. 22.4 SECONDS (11.7-14.9)
[2020-05-05 06:35] LABS: Partial Thromboplast Time 65.3 Seconds (24.1-36.2)
[2020-05-05] MEDS: Albuterol 2.5 MG/3 ML VIAL.NEB. INHALATION (07:10)
[2020-05-05] MEDS: Magnesium Chloride 64 MG Delay Rel.Tablet 128 MG PO (09:30)
[2020-05-05] MEDS: Venlafaxine HCl 75 MG Tablet 37.5 MG PO (09:30)
[2020-05-05] MEDS: Cyanocobalamin 500 MCG Tablet 2500 MCG PO (09:30)
[2020-05-05] MEDS: Folic Acid 1 MG Tablet PO (09:31)
--- NOTE | 2020-05-05 11:05 | DCINST_ITS ---
- Discharge Diagnoses Current Active Problems: Current Active and Chronic Problems (Last Reviewed 04/30/20 @ 06:[address] Zia Banks MD) Pancytopenia (Chronic) You will use the following diet at home:: Cardiac Your food should be the consistency of: Regular Your liquids should be the consistency of: Regular/Thin Discharge Activity: May Not Drive Call your doctor if you observe: Shortness of breath, Dizziness, Fainting spells, - - Blood in stool Additional Instructions: Call your doctor to arrange to have your INR checked tomorrow. You need a CBC (lab) checked at follow up with your hematology/oncology physician at the end of the week (Dr. Thomas). Allergies/Adverse Reactions: Allergies amiodarone Adverse Reaction (Verified 04/29/20 12:05) vomiting, poor balance, dizziness digoxin Adverse Reaction (Verified 04/29/20 12:05) nausea, dry heaves lorazepam [From Ativan] Adverse Reaction (Verified 04/29/20 12:05) Unknown meloxicam [From Mobic] Adverse Reaction (Verified 04/29/20 12:05) Unknown nortriptyline HCl [From Pamelor] Adverse Reaction (Verified 04/29/20 12:05) Unknown zolpidem tartrate [From Ambien] Adverse Reaction (Verified 04/29/20 12:05) Unknown Medications to take at Discharge Atorvastatin Calcium [Lipitor] 20 mg PO QHS 05/22/13 Levothyroxine [Synthroid] 75 mcg PO DAILY 04/01/15 Ferrous Sulfate 650 mg PO QHS 04/02/15 Folic Acid 1 mg PO DAILY@0800 04/30/15 Cyanocobalamin (Vitamin B-12) [Vitamin B12] 2,500 mcg PO DAILY 06/10/16 Magnesium 250 mg PO DAILY 05/24/17 Cholecalciferol (Vitamin D3) [Vitamin D3] 1,000 unit PO DAILY 04/07/19 Venlafaxine HCl 37.5 mg PO BID 04/07/19 albuterol sulfate 90 mcg/actuation aerosol inhaler 2 puff INHALATION Q6H PRN PRN #18 g 11/26/19 Pantoprazole Sodium [Protonix] 40 mg PO DAILY 01/24/20 Potassium Chloride [K-Dur] 20 meq PO DAILY 01/24/20 doxepin 25 mg capsule 25 mg PO QHS 04/01/20 Darbepoetin Andrei in Polysorbat [Aranesp] 0.4 ml IM TH 04/29/20 Hydrocodone Bitartrate 0.5 tab PO DAILY PRN PRN 04/29/20 Metoprolol(XL)Succ [Toprol Xl (Beta Jeremy)] 25 mg PO DAILY 04/29/20 Warfarin Sodium 0.5 mg PO DAILY 04/29/20 Warfarin [Coumadin] 1 mg PO DAILY 04/29/20 Primary Care Physician: Kodak Muñoz MD [Primary Care Provider] - Please follow up with your Primary Care Physician in: 1-2 weeks Test Results: Test results from this visit will be discussed in further detail at your follow- up appointment, if applicable. Please Follow Up With: Edd Thomas MD When: 05/07/20 Please Follow Up With: Eddie Mendoza MD When: 2 weeks Proposed Discharge Date: 05/05/20
--- NOTE | 2020-05-05 12:04 | PHA.DC.MR ---
Pharmacy Service has performed discharge medication reconciliation for this patient. The patient's discharge medication list was reviewed for discrepancies and discrepancies were resolved. Home Medications Atorvastatin Calcium [Lipitor] 20 mg PO QHS 05/22/13 Levothyroxine [Synthroid] 75 mcg PO DAILY 04/01/15 Ferrous Sulfate 650 mg PO QHS 04/02/15 Folic Acid 1 mg PO DAILY@0800 04/30/15 Cyanocobalamin (Vitamin B-12) [Vitamin B12] 2,500 mcg PO DAILY 06/10/16 Magnesium 250 mg PO DAILY 05/24/17 Cholecalciferol (Vitamin D3) [Vitamin D3] 1,000 unit PO DAILY 04/07/19 Venlafaxine HCl 37.5 mg PO BID 04/07/19 albuterol sulfate 90 mcg/actuation aerosol inhaler 2 puff INHALATION Q6H PRN PRN #18 g 11/26/19 Pantoprazole Sodium [Protonix] 40 mg PO DAILY 01/24/20 Potassium Chloride [K-Dur] 20 meq PO DAILY 01/24/20 doxepin 25 mg capsule 25 mg PO QHS 04/01/20 Darbepoetin Andrei in Polysorbat [Aranesp] 0.4 ml IM TH 04/29/20 Hydrocodone Bitartrate 0.5 tab PO DAILY PRN PRN 04/29/20 Metoprolol(XL)Succ [Toprol Xl (Beta Jeremy)] 25 mg PO DAILY 04/29/20 Warfarin Sodium 0.5 mg PO DAILY 04/29/20 Warfarin [Coumadin] 1 mg PO DAILY 04/29/20
--- NOTE | 2020-05-05 14:12 | DS.PCM_ITS ---
Discharge Date and Diagnosis Date of Admission: 04/29/20 Date of Discharge: 05/05/20 - Primary Discharge Diagnosis Acute Problems: Acute on chronic blood loss anemia 2/2 GI bleed unclear source Mechanical mitral valve Pancytopenia - Secondary Discharge Diagnosis Chronic Problems: Chronic Problems (Last Reviewed 04/30/20 @ 06:[address] 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 Thomas, pancytopenia, complicated by hx of mechanical mitral valve requiring coumadin anticoagulation, who presented to the ER with abnormal labs - low Hgb. The patient felt that she was in her normal state of health. She appeared to have low BP in the 50s in the ER however had normal mentation and excellent peripheral pulses. She was anemic with Hgb 5.6. She has chronic black stools. INR was elevated at 4.7. She was admitted to the hospital and was transitioned to the ICU overnight as she developed a significant amount of blood in her stool. General surgery was consulted and felt no further workup was indicated at this time. Her retail merchandising manager was consulted. She was given vitamin K and started on IV protonix. She was transfused with multiple units of PRBCs over her stay - total 7. Platelets declined by about half and hematology recommended platelet transfusion x 1. The patient continued to have low BP however no acute complaints. She was placed on a heparin drip and coumadin re-initiated. She was kept until her INR was 2.0 which her structural technician felt was sufficient. She will follow up with Dr. Thomas in 2 days for blood work and possible blood transfusion. She will need to follow up with her structural technician in 2 weeks. She will have routine follow up with her PCP in 1-2 weeks. Lasix was discontinued at DC, metoprolol was continued. This patient was seen by Royer Oviedo PA-C under the supervision of Dr. Mcbride. [] - Physical Exam Vitals/I&O's: Vital Signs Temp Pulse Resp BP Pulse Ox 98.9 F 106 H 22 H 72/59 L 96 05/05/20 09:24 05/05/20 09:24 05/05/20 09:24 05/05/20 09:24 05/05/20 09:45 Oxygen Flow Rate (L/min) 2 Oxygen Delivery Method Room Air Weight: 129 lb 6.581 oz Body Mass Index (BMI) 21.5 Finger Stick Blood Glucose 194 Intake and Output for Last 24 Hours 05/03/20 05/04/20 05/05/20 23:59 23:59 23:59 Intake Total 1472.97 / 1472.97 2007 362.35 / 362.35 Output Total 0 / 0 Balance 1472.97 / 1472.97 2007 362.35 / 362.35 General: Alert, Oriented x3, Cooperative HEENT: Atraumatic, PERRLA, EOMI, Normocephalic Neck: Supple, No JVD, Negative Carotid Bruits Lungs: Clear to auscultation, Normal air movement Cardiovascular: Regular rate, No murmurs Abdomen: Bowel Sounds Present, Soft, Non Tender Extremities: No edema, Capillary Refill Less than 3 Seconds Skin: - - generalized pallor. left forearm with extensive ecchymosis Musculoskeletal: No Tenderness to Palpation of Joints or Extremities Neurological: Cranial nerves II-XII grossly intact Psych/Mental Status: Normal Affect, Appropriate, Alert and oriented to time, place, person, mood and affect Laboratory Results 05/03/20 16:05: Blood Type Cancelled, A1 Antigen Typing Cancelled, Rho(D) Type Cancelled, Antibody Screen NEGATIVE, Crossmatch See Detail 05/05/20 06:05: PT 22.4 H, INR 2.0, APTT 65.3 H 05/05/20 06:05: WBC 2.8 L, RBC 3.11 L, Hgb 9.1 L, Hct 28.8 L, MCV 92.6, MCH 29.3, MCHC 31.6 L, RDW Std Deviation 52.3 H, RDW Coeff of Uriel 15.7 H, Plt Count 62 L, MPV 10.8 Discharge Diet: Low fat/ Low Cholesterol, 2000 mg Sodium Diet Discharge Activity: May Not Drive Call your doctor if you observe: Shortness of breath, Dizziness, Fainting spells, - - Blood in stool Home Medications: Medications to take at Discharge Atorvastatin Calcium [Lipitor] 20 mg PO QHS 05/22/13 Levothyroxine [Synthroid] 75 mcg PO DAILY 04/01/15 Ferrous Sulfate 650 mg PO QHS 04/02/15 Folic Acid 1 mg PO DAILY@0800 04/30/15 Cyanocobalamin (Vitamin B-12) [Vitamin B12] 2,500 mcg PO DAILY 06/10/16 Magnesium 250 mg PO DAILY 05/24/17 Cholecalciferol (Vitamin D3) [Vitamin D3] 1,000 unit PO DAILY 04/07/19 Venlafaxine HCl 37.5 mg PO BID 04/07/19 albuterol sulfate 90 mcg/actuation aerosol inhaler 2 puff INHALATION Q6H PRN PRN #18 g 11/26/19 Pantoprazole Sodium [Protonix] 40 mg PO DAILY 01/24/20 Potassium Chloride [K-Dur] 20 meq PO DAILY 01/24/20 doxepin 25 mg capsule 25 mg PO QHS 04/01/20 Darbepoetin Andrei in Polysorbat [Aranesp] 0.4 ml IM TH 04/29/20 Hydrocodone Bitartrate 0.5 tab PO DAILY PRN PRN 04/29/20 Metoprolol(XL)Succ [Toprol Xl (Beta Jeremy)] 25 mg PO DAILY 04/29/20 Warfarin Sodium 0.5 mg PO DAILY 04/29/20 Warfarin [Coumadin] 1 mg PO DAILY 04/29/20 Primary Care Physician: Kodak Muñoz MD [Primary Care Provider] - Please follow up with your Primary Care Physician in: 1-2 weeks Please Follow Up With: Edd Thomas MD When: 05/07/20 Please Follow Up With: Eddie Mendoza MD When: 2 weeks Disposition: Home Minutes spent on discharge:: 35 Patient Condition:: Stable Medical Necessity - Tobacco Use Smoking Status: Current every day smoker Tobacco Use: Cigarettes - 1-1.5PPD Meaningful Use Info Meaningful Use Diagnoses (Choose all that apply): None applicable
--- NOTE | 2020-05-06 15:57 | CASEMGMT ---
RN CM Discharge F/U Phone Call LACE: 14 Strata: 4 Discharge date: 05/05/2020 Call date: 05/06/2020 Call time: [phone] Attempted to reach pt without success at this time, message left for pt to call this RN CM back if/when able. S[place]en RN CM Admission dx: Acute on Chronic blood loss anemia
== END 2020-05-05 12:50 | disposition home or self-care (01) | DRG 812 ==
LOC: ED 12:58 → MS3 14:14 → ICU 04-30 05:52 → PCU 05-02 14:27
PROVIDERS: Hospitalist; Internal Medicine Critical Care Medicine; Physician Assistant; Admitting Provider Internal Medicine; Emergency Provider Emergency Medicine; PCP Internal Medicine; Visit Provider Internal Medicine
DX: D62 Acute posthemorrhagic anemia (principal); E44.0 Moderate protein-calorie malnutrition; J96.11 Chronic respiratory failure with hypoxia; I48.19 Other persistent atrial fibrillation; D68.9 Coagulation defect, unspecified; D61.818 Other pancytopenia; Z95.2 Presence of prosthetic heart valve; Z95.0 Presence of cardiac pacemaker; J44.9 Chronic obstructive pulmonary disease, unspecified; E78.5 Hyperlipidemia, unspecified; I27.29 Other secondary pulmonary hypertension; F17.210 Nicotine dependence, cigarettes, uncomplicated; E86.1 Hypovolemia; D63.8 Anemia in other chronic diseases classified elsewhere; T45.515A Adverse effect of 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, initial encounter; Z79.01 Long term (current) use of 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; I95.89 Other hypotension; E11.22 Type 2 diabetes mellitus with diabetic chronic kidney disease; I12.9 Hypertensive chronic kidney disease with stage 1 through stage 4 chronic kidney disease, or unspecified chronic kidney disease; N18.3 Chronic kidney disease, stage 3 (moderate); E03.9 Hypothyroidism, unspecified; K57.30 Diverticulosis of large intestine without perforation or abscess without bleeding; I34.0 Nonrheumatic mitral (valve) insufficiency; I36.1 Nonrheumatic tricuspid (valve) insufficiency; K21.9 Gastro-esophageal reflux disease without esophagitis; Z79.890 Hormone replacement therapy; Z79.899 Other long term (current) drug therapy; I49.5 Sick sinus syndrome
CPT/HCPCS: 36415; 80048; 83735; 84100; 85014; 85018; 85025; 85027; 85610; 85730; 86850; 86900; 86901; 86902; 86920; 86922; 86965; 94640; 97110; 97116; 97162; 97166; 97530; 97802; 97803; 99284; 99406; J7030; J7040; P9016; P9017; P9037; A4216; J3490

== ENCOUNTER 2020-05-06 10:11 | Outpatient (RCR) | payer OTHER, SELFPAY ==
[2020-04-02 08:01] VITALS: BMI 21.2
[2020-04-16 09:38] VITALS: BMI 21.2
[2020-04-26 13:55] LABS: International Normalized Ratio 2.8; Prothrombin Time (Protime)PT. 28.8 SECONDS (11.7-14.9)
[2020-05-06 11:11] LABS: International Normalized Ratio 2.1; Prothrombin Time (Protime)PT. 23.1 SECONDS (11.7-14.9)
== END 2020-05-06 18:00 | disposition home or self-care (01) ==
LOC: LAB 10:11
PROVIDERS: Family Provider Internal Medicine; PCP Internal Medicine; Referring Provider Internal Medicine Cardiovascular Disease; Visit Provider Internal Medicine Cardiovascular Disease
DX: Z95.2 Presence of prosthetic heart valve (principal); Z79.01 Long term (current) use of 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
CPT/HCPCS: 36415; 85610

== ENCOUNTER → 2020-05-14 08:16 | Outpatient (CLI) | payer OTHER, SELFPAY ==
[2020-04-29 14:18] VITALS: BMI 21.5
[2020-05-14] VITALS (9 sets, daily range): BP systolic 55–99; BP diastolic 31–50; PULSE 64–104; RESP 16; TEMP 36.1–37.3; O2SAT 98–100; BMI 22.6
[2020-05-14] MEDS: 0.9% NaCl Peripheral Flush Adult/Peds IV (08:45)
[2020-05-14] MEDS: Acetaminophen 325 MG Tablet 650 MG PO (08:46)
== END ==
PROVIDERS: PCP Internal Medicine; Referring Provider Internal Medicine Hematology & Oncology; Visit Provider Internal Medicine Hematology & Oncology
DX: N18.9 Chronic kidney disease, unspecified (principal); K92.2 Gastrointestinal hemorrhage, unspecified
CPT/HCPCS: 36430; 86850; 86900; 86901; 86902; 86920; 86922; J7040; P9016; A4216

== ENCOUNTER → 2020-05-21 07:50 | Outpatient (CLI) | payer OTHER, SELFPAY ==
[2020-05-14 08:30] VITALS: BMI 22.6
[2020-05-21] VITALS (8 sets, daily range): BP systolic 54–88; BP diastolic 23–53; PULSE 55–95; RESP 16; TEMP 36.2–36.6; O2SAT 93–99; BMI 23.2
[2020-05-21] MEDS: Acetaminophen 325 MG Tablet 650 MG PO (08:14)
[2020-05-21] MEDS: 0.9% NaCl Peripheral Flush Adult/Peds IV (08:15)
== END ==
PROVIDERS: PCP Internal Medicine; Referring Provider Internal Medicine Hematology & Oncology; Visit Provider Internal Medicine Hematology & Oncology
DX: K92.2 Gastrointestinal hemorrhage, unspecified (principal); N18.9 Chronic kidney disease, unspecified
CPT/HCPCS: 36430; 86850; 86900; 86901; 86902; 86920; 86922; J7040; P9016; A4216

== ENCOUNTER 2020-06-02 11:18 | Outpatient (RCR) | payer OTHER, SELFPAY ==
[2020-04-29 14:18] VITALS: BMI 21.5
[2020-05-14 08:30] VITALS: BMI 22.6
[2020-05-18 12:30] LABS: Prothrombin Time (Protime)PT. 42.2 SECONDS (11.7-14.9)
[2020-05-18 12:38] LABS: International Normalized Ratio 4.4
[2020-05-21 14:21] LABS: Prothrombin Time (Protime)PT. 41.4 SECONDS (11.7-14.9)
[2020-05-21 14:43] LABS: International Normalized Ratio 4.3
[2020-05-24 12:37] LABS: International Normalized Ratio 1.9; Prothrombin Time (Protime)PT. 20.8 SECONDS (11.7-14.9)
[2020-06-02 11:59] LABS: International Normalized Ratio 3.2; Prothrombin Time (Protime)PT. 32.2 SECONDS (11.7-14.9)
== END 2020-06-02 18:00 | disposition home or self-care (01) ==
LOC: LAB 11:18
PROVIDERS: Family Provider Internal Medicine; PCP Internal Medicine; Referring Provider Internal Medicine Cardiovascular Disease; Visit Provider Internal Medicine Cardiovascular Disease
DX: Z95.2 Presence of prosthetic heart valve (principal); Z79.01 Long term (current) use of 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
CPT/HCPCS: 36415; 85610

== ENCOUNTER → 2020-06-04 07:49 | Outpatient (CLI) | payer OTHER, SELFPAY ==
[2020-05-21 08:00] VITALS: BMI 23.2
[2020-06-04] VITALS (9 sets, daily range): BP systolic 71–94; BP diastolic 41–63; PULSE 89–99; RESP 16–18; TEMP 36.2–36.8; O2SAT 94–98
[2020-06-04] MEDS: Acetaminophen 325 MG Tablet 650 MG PO (08:06)
[2020-06-04] MEDS: 0.9% NaCl Peripheral Flush Adult/Peds IV (08:08)
== END ==
PROVIDERS: PCP Internal Medicine; Referring Provider Internal Medicine Hematology & Oncology; Visit Provider Internal Medicine Hematology & Oncology
DX: Z51.89 Encounter for other specified aftercare (principal); N18.9 Chronic kidney disease, unspecified; K92.2 Gastrointestinal hemorrhage, unspecified
CPT/HCPCS: 36430; 86850; 86900; 86901; 86920; 86922; J7040; P9016; A4216

== ENCOUNTER → 2020-06-11 08:23 | Outpatient (CLI) | payer OTHER, SELFPAY ==
[2020-06-11] VITALS (8 sets, daily range): BP systolic 68–86; BP diastolic 41–57; PULSE 80–102; RESP 16–18; TEMP 35.5–36.9; O2SAT 94–99; BMI 22.8
[2020-06-11] MEDS: Acetaminophen 325 MG Tablet 650 MG PO (08:42)
[2020-06-11] MEDS: 0.9% NaCl Peripheral Flush Adult/Peds IV (08:57)
== END ==
PROVIDERS: PCP Internal Medicine; Referring Provider Internal Medicine Hematology & Oncology; Visit Provider Internal Medicine Hematology & Oncology
DX: Z51.89 Encounter for other specified aftercare (principal); N18.9 Chronic kidney disease, unspecified; K92.2 Gastrointestinal hemorrhage, unspecified
CPT/HCPCS: 36430; 86850; 86900; 86901; 86902; 86920; 86922; J7040; P9016; A4216

== ENCOUNTER 2020-06-17 10:46 | Inpatient (IN) | payer OTHER, MEDICARE, SELFPAY ==
[2020-06-11 08:59] VITALS: BMI 22.8
[2020-06-17] VITALS (26 sets, daily range): BP systolic 53–108; BP diastolic 34–85; PULSE 100–104; RESP 16–32; TEMP 36.2–37.1; O2SAT 90–100; BMI 23.1; BMI 22.8; BMI 22.9
[2020-06-17] MEDS: 0.9% Normal Saline 1,000 ML 1000 ML IV (11:06)
[2020-06-17 11:17] LABS: Absolute Lymphocyte Count 0.37 X10^3/uL (0.83-4.51); Absolute Neutrophil Count 2.2 X10^3/uL (2.0-7.7); Basophil# 0.01 X10^3/uL; Basophil% 0.4 % (0-1); Hematocrit 15.3 % (37-47); Lymphocyte # 0.37 X10^3/ul (4.0); Lymphocyte % 13.3 % (19-41); Mean Corp Hgb Conc 28.8 g/dL (32-36); Mean Corpuscular Hgb 28.9 pg (27.0-32.0); Mean Corpuscular Volume 100.7 fL (81-99); Mean Platelet Vol. 12.2 fl (6.2-12.0); Monocyte# 0.15 X10^3/uL; Monocyte% 5.4 % (0-10); NRBC Flagged by Analyzer 0 % (0-5); Neutrophil # 2.24 X10^3/uL (2.7-7.7); Neutrophil % 80.2 % (47-70); POSITIVE COUNT YES; POSITIVE DIFFERENTIAL YES; POSITIVE MORPHOLOGY YES; Platelet Count 102 K/mm3 (150-450); RBC Distribution Width SD 67.2 fl (35.1-43.9); Red Blood Count 1.52 M/mm3 (4.2-5.4); White Blood Count 2.8 K/mm3 (4.4-11.0)
[2020-06-17 11:21] LABS: Differential Indicated SCAN CRITERIA MET; Hemoglobin 4.4 g/dL (12.0-15.0)
[2020-06-17 11:26] LABS: Prothrombin Time (Protime)PT. 82.5 SECONDS (11.7-14.9)
[2020-06-17 11:30] LABS: Anion Gap 9 (5-15); BUN 28 mg/dL (7-18); BUN/Creat Ratio 20.1 RATIO (10-20); Calcium,Total 7.5 mg/dL (8.5-10.1); Chloride 113 mmol/L (98-107); Creatinine, Serum 1.39 mg/dL (0.55-1.02); EST Glomerular Filtration Rate 39 mL/min (>60); Est Glom Filt Rate - Afr Amer 47 mL/min (>60); Estimated Creatinine Clearance 26.81 ml/min; Glucose 234 mg/dL (74-106); International Normalized Ratio 10.2; Potassium 4.8 mmol/L (3.5-5.1); Sodium Level 143 mmol/L (136-145)
--- NOTE | 2020-06-17 12:10 | ED.DCSUM_ITS ---
- ER Visit Summary Date of Service: 06/17/20 Chief Complaint: [Rectal bleeding] History of Present Illness: The patient is a 79 F [presents to the emergency department with rectal bleeding that is worsened over last 2 days. Patient states that she has had multiple episodes like this over the last 6 months and has had at least 5 transfusions. Patient today was feeling weak and dizzy after having 2-3 bloody stools per day over the last 2 days. She denies any chest pain or shortness of breath. Patient states that she has had significant work- up in the past find the source of the bleeding and none is ever been found. Patient does have history of atrial fibrillation and has a mechanical valve and is on Coumadin. Patient tells me her last INR last week was 3.1.] Physical Examination: [HEENT-PERRLA, EOMI. Cranial nerves II through XII grossly intact. TMs clear. Mucous membranes moist. No adenopathy. Patient pale appearing with pale conjunctiva. Cardiovascular-regular rate and rhythm without murmur or ectopy Lungs-clear to auscultation, chest wall stable without crepitus or subcu emphysema Abdomen-normoactive bowel sounds, soft, nontender, no rebound or rigidity, no peritoneal signs. Rectal exam-patient had bright red blood around the rectum. No masses or fi ssures noted. No hemorrhoids noted. Extremities-intact ?4, normal range of motion, normal pulses, atraumatic] Test Results: [CBC with differential showed a white count of 2.8, hemoglobin 4.4, hematocrit 15, plates 102. Chemistries unremarkable. INR was 10.2. BUN was 28 and creatinine 1.39.] Emergency Department Course and Treatment: [IV line established x2. Patient was typed and crossed for 3 units packed red cells. Patient was ordered a liter normal same fluid bolus.] While in the department her blood pressure initially started in the 90 systolic and did drop into the 50s. Patient mentating normally and has palpable pulses. Patient had similar vital signs with her last admission and she tells me that her normal systolic is in the 50s and 60s. Case was discussed with hospitalist as well as the general surgeon on-call who will admit the patient. Treatment Plan: [Admit.] Disposition: [Admit] Impression: [Lower GI bleed Pancytopenia] This note was generated with Dragon dictation software. It may contain incorrect words, spelling, and punctuation that were not noted in review of the chart prior to signing ED Disposition - Plan for ED Patient: Referrals: Kodak Muñoz MD [Primary Care Provider] -
--- NOTE | 2020-06-17 12:14 | HP.PCM_ITS ---
History of Present Illness Date of Admission: 06/17/20 Chief Complaint: Rectal bleeding The patient is a 79 year old F with an extensive past medical history as outlined which includes recurrent lower GI bleed, chronic A. fib and mitral valve replacement, on Coumadin long-term. She was admitted to the ED on 08/17/2019 with a complaint of rectal bleeding which started about 2 days ago. She states she noticed that his stool was dark but she had bright red blood per rectum. This bleeding continued and so started to feel very lightheaded and dizzy and weak so she decided to come to the ED today. She has a history of such recurrent rectal bleeding and has had extensive work-up per general surgery with no clear cause defined. Patient has had about 5 transfusions about the last 6 weeks. Was last admitted in April 2020 for rectal bleeding. She required transfusion during that admission. He has had a bleeding scan that was done in April 2020 which was negative. On admission in the ED, vitals show temperature of 97.5 Fahrenheit with blood pressure of 53/40, pulse rate of 100 and respiratory rate of 25. Patient states that her blood pressure usually runs in the 50s and 60s systolic and this is the norm for her. She was saturating at 100% on 4 L of oxygen. Labs showed hemoglobin of 4.4 with WBC of 2.8 and platelets of 102. Chemistry showed creatinine of 1.39 and calcium was 7.5 with potassium of 4.8 and sodium of 143. She is being admitted to be managed for acute on chronic anemia due to lower GI bleed. [] Past Medical History Past Medical History (Chronic Problems): Chronic Problems (Last Reviewed 04/30/20 @ 06:[address] Zia Banks MD) Pancytopenia (Chronic) Hypotension (Chronic) Tachycardia-bradycardia syndrome (Chronic) Nonrheumatic mitral (valve) insufficiency (Chronic) Chronic atrial fibrillation (Chronic) Typical atrial flutter (Chronic) Non-rheumatic tricuspid valve insufficiency (Chronic) Secondary pulmonary hypertension (Chronic) HLD (hyperlipidemia) (Chronic) Nicotine dependence (Chronic) shelter current use of anticoagulant (Chronic) Thrombocytopenia (Chronic) COPD (chronic obstructive pulmonary disease) (Chronic) GI bleeding (Chronic) Medical History: Medical History (Last Reviewed 04/30/20 @ 06:[address] 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.01 Thrombocytopenia (Chronic) D69.6 COPD (chronic obstructive pulmonary disease) (Chronic) J44.9 GI bleeding (Chronic) K92.2 Ascites R18.8 Carotid bruit R09.89 GERD (gastroesophageal reflux disease) K21.9 Type 2 diabetes mellitus E11.9 GI bleed K92.2 Pericardial effusion I31.3 Pleural effusion J90 Non-rheumatic aortic stenosis (Inactive) I35.0 PVC's (premature ventricular contractions) (Inactive) I49.3 Pleural effusion, not elsewhere classified (Inactive) J90 Allergies amiodarone Adverse Reaction (Verified 06/17/20 10:50) vomiting, poor balance, dizziness digoxin Adverse Reaction (Verified 06/17/20 10:50) nausea, dry heaves lorazepam [From Ativan] Adverse Reaction (Verified 06/17/20 10:50) Unknown meloxicam [From Mobic] Adverse Reaction (Verified 06/17/20 10:50) Unknown nortriptyline HCl [From Pamelor] Adverse Reaction (Verified 06/17/20 10:50) Unknown zolpidem tartrate [From Ambien] Adverse Reaction (Verified 06/17/20 10:50) Unknown Home Medications: Ambulatory Orders Medication Instructions Recorded Atorvastatin Calcium [Lipitor] 20 mg PO QHS 05/22/13 Levothyroxine [Synthroid] 100 mcg PO DAILY 04/01/15 Ferrous Sulfate 650 mg PO QHS 04/02/15 Folic Acid 1 mg PO DAILY@0800 04/30/15 Cyanocobalamin (Vitamin B-12) 2,500 mcg PO DAILY 06/10/16 [Vitamin B12] Magnesium 250 mg PO DAILY 05/24/17 Cholecalciferol (Vitamin D3) 1,000 unit PO DAILY 04/07/19 [Vitamin D3] Venlafaxine HCl 37.5 mg PO BID 04/07/19 albuterol sulfate 90 mcg/actuation 2 puff INHALATION Q6H PRN PRN #18 g 11/26/19 aerosol inhaler Pantoprazole Sodium [Protonix] 40 mg PO DAILY 01/24/20 Potassium Chloride [K-Dur] 20 meq PO DAILY 01/24/20 doxepin 25 mg capsule 25 mg PO QHS 04/01/20 Darbepoetin Andrei in Polysorbat 0.4 ml IM TH 04/29/20 [Aranesp] Hydrocodone Bitartrate 0.5 tab PO DAILY PRN PRN 04/29/20 Metoprolol(XL)Succ [Toprol Xl 25 mg PO DAILY 04/29/20 (Beta Jeremy)] Warfarin Sodium 0.5 mg PO DAILY 04/29/20 Warfarin [Coumadin] 2 mg PO DAILY 04/29/20 Surgical History: Surgical History (Last Reviewed 04/30/20 @ 06:[address] Zai Banks MD) Presence of permanent cardiac pacemaker (Resolved) Onset Date: 08/30/18 Z95.0 Implant: 07/31/2008; PPM Generator Change - [employer], [employer] MR 08/30/2018 History of mitral valve replacement with mechanical valve (Resolved) Onset Date: 07/22/08 Z95.2 #[address] [employer] mechanical valve History of cardioversion Onset Date: 10/2015 Z98.890 History of incision of pericardium Z98.890 for pericardial effusion History of left heart catheterization Onset Date: 07/17/08 Z98.890 Surgical History: - - Mitral valve replacement with mechanical valve. 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 Michelle Conley DO) Mother Cancer History Items: No pertinent history Maternal Family History: Family History (Last Reviewed 04/29/20 @ 16:[address] Michelle Conley DO) Mother Cancer History Items: No pertinent history Review of Systems Constitutional: Reports: Malaise, Weakness. Denies: Chills, Fever, Weight Change Eyes: Denies: Blurred vision HEENT: Denies: Head Aches, Sinus Congestion, Sinus Drainage Cardiovascular: Denies: Chest Pain, Edema, Heaviness, Palpitations Respiratory: Denies: Cough, Shortness of Breath, Shortness of breath at rest, Shortness of breath upon exertion, Sputum production Gastrointestinal: Reports: Hematochezia, Melena. Denies: Abdominal Pain, Nausea, Vomiting Genitourinary: Denies: Dysuria Musculoskeletal: Denies: Joint Pain, Joint Tenderness Skin: Denies: Rash, Wounds Neurological: Denies: Numbness, Tingling, Focal weakness Psychiatric: Denies: Anxiety, Depression, Homicidal Ideations, Suicidal Ideations Hematologic/ Lymphatic: Denies: Easy Bruising, Easy Bleeding VTE Information - Inpt Only VTE Present on Admission: No VTE Mechan Device Prophylaxis: SCD's VTE Pharm Prophylaxis ordered?: Yes Reason prophylaxis not ordered:: Medical Contraindication - rectal bleeding - Physical Exam Vitals/I&O's: Vital Signs Temp Pulse Resp BP Pulse Ox 97.6 F L 101 H 18 96/68 94 06/17/20 10:47 06/17/20 10:47 06/17/20 10:47 06/17/20 10:47 06/17/20 10:47 Oxygen Flow Rate (L/min) 3 Oxygen Delivery Method Nasal Cannula Weight: 126 lb 1.671 oz Body Mass Index (BMI) 23.1 Finger Stick Blood Glucose 194 General: Alert, Oriented x3, Cooperative, No apparent distress HEENT: Atraumatic, PERRLA, EOMI, Normocephalic, - - patient is very pale Oral: Dry Mucosa Neck: Supple, No JVD, Negative Carotid Bruits Lungs: Clear to auscultation, Normal air movement, No rhonchi, No wheeze Cardiovascular: Regular rate, Regular Rhythm, Normal S1, Normal S2, No murmurs Abdomen: Bowel Sounds Present, Soft, Non Tender, Non-Distended, No Hepato- splenomegaly Extremities: No clubbing, No cyanosis, No edema, Capillary Refill Less than 3 Seconds Skin: No rashes, No breakdown Musculoskeletal: No Tenderness to Palpation of Joints or Extremities Lymphatic: No Cervical, Supraclavicular, or Inguinal Adenopathy Neurological: Cranial nerves II-XII grossly intact, Motor Exam 5/5 strength throughout Psych/Mental Status: Normal Affect, Appropriate, Alert and oriented to time, place, person, mood and affect Laboratory Results 06/17/20 10:55: WBC 2.8 L, RBC 1.52 L, Hgb 4.4 L*, Hct 15.3 L, MCV 100.7 H, MCH 28.9, MCHC 28.8 L, RDW Std Deviation 67.2 H, RDW Coeff of Uriel 19.0 H, Plt Count 102 L, MPV 12.2 H, Immature Gran % (Auto) 0.700, Neut % (Auto) 80.2 H, Lymph % (Auto) 13.3 L, Pickett % (Auto) 5.4, Eos % (Auto) 0.0, Baso % (Auto) 0.4, Absolute Neuts (auto) 2.2, Absolute Lymphs (auto) 0.37 L, Nucleated RBC % 0 06/17/20 10:55: Sodium 143, Potassium 4.8, Chloride 113 H, Carbon Dioxide 21.0, Anion Gap 9, BUN 28 H, Creatinine 1.39 H, Estim Creat Clear Calc 26.81, Est GFR (MDRD) Af Amer 47 L, Est GFR (MDRD) Non-Af 39 L, BUN/Creatinine Ratio 20.1 H, Glucose 234 H, Calcium 7.5 L 06/17/20 10:55: Blood Type A POSITIVE, Antibody Screen NEGATIVE 06/17/20 10:55: PT 82.5 H, INR 10.2 H* 06/17/20 10:55: Crossmatch See Detail Assessment/Plan All Active Problems (Last Reviewed 04/30/20 @ 06:[address] Zia Banks MD) Presence of permanent cardiac pacemaker (Resolved 08/30/18) History of mitral valve replacement with mechanical valve (Resolved 07/22/08) Anemia (Acute) 79 y/o admitted with a complaint of rectal bleeding. # Acute on chronic anemia due to lower GI bleed * hb is 4.4. baseline Hb is ~ 8-9 * panchito was recently admitted in April 2020 for similar bleeding episodes. She had a bleeding scan today which was negative. States she has had colonoscopies in the past which were also negative. * Admit to ICU. Transfuse with 3 units of packed red blood cells. * General surgery consulted. INR was supratherapeutic at 10.1. Given IV vitamin K. * Hold Coumadin. * critical care consulted as she is being admitted to ICU * #Lower GI bleed: Management as above. #Hypotension: * Blood pressure was 53/40 at time of review today. * Patient states her blood pressure usually runs low and sometimes systolic is even in the 60s and this is the norm for her. * Hydrate with IV fluids and monitor and aim for MAP more than 65. * #Chronic hypoxic respiratory failure due to COPD: * States she is on 2 L of oxygen at home. Titrate oxygen to maintain saturation above 90%. * Breathing treatments with bronchodilators. * #Chronic A. fib: On Toprol. Hold metoprolol on account of hypotension. Did also hold on account of supratherapeutic INR. #History of mitral valve replacement with mechanical valve in place: Hold Coumadin on account of supratherapeutic INR. #Hypothyroidism: On Synthroid #Tachybradycardia syndrome s/p pacemaker: Stable. Prophylaxis: SCDs CODE STATUS: Full code * Patient counseled extensively about different types of CODE STATUS including full code, DNR CCA and DNR CCA. Patient elects to be full code. * Total [id number] time 16 minutes. Inpatient E&M: 98210 Init Hosp L3 Procedures: 43997 Advncd Care Plan 30 Min
[2020-06-17 12:32] LABS: Anisocytosis 1+
[2020-06-17 12:33] LABS: Platelet Estimate SLT DEC (ADEQ)
[2020-06-17] MEDS: 0.9% Normal Saline 1,000 ML 150 ML IV ×2 (14:01→20:50)
--- NOTE | 2020-06-17 14:21 | PCM.CON.CC ---
Reason for Consult Date of Consultation: 06/17/20 Reason for Consultation: Acute blood loss anemia History of Present Illness: The patient is a 79-year-old female, with a history as outlined below, who presented to the emergency department on June 17 with lower GI bleeding over the last 2 days. The patient was last admitted to the hospital for a week in April 2020 with acute on chronic blood loss anemia, the source of which has never been identified. The patient's medical history is also significant for chronic renal insufficiency, status post prosthetic mitral valve on chronic anticoagulation, chronic atrial fibrillation and chronic hypoxemic respiratory failure. The patient did report rectal bleeding at presentation along with associated dizziness/lightheadedness and fatigue. On presentation to the emergency department, the patient was noted to be afebrile but was hypotensive and a bit hypoxic requiring supplemental oxygen via nasal cannula. Initial laboratory evaluation revealed evidence of pancytopenia with a hemoglobin of 4.4. The patient was last noted to have a hemoglobin of 9.1 g/dL at the end of April 2020. She did have a supratherapeutic INR at 10.2. Chemistry profile was notable for a creatinine of 1.39. The patient received supplemental IV fluids and was transfused a total of 3 units of packed red blood cells. The patient was subsequently admitted to the medical intensive care unit for further management. On arrival to the ICU, the patient was noted to be hypotensive. She was currently amidst her transfusion of blood products. Given the initial concern that there would be a need for vasopressor support, orders for a PICC line replaced. However, the patient refused to allow a PICC line to be placed, noting that her blood pressures typically run low at baseline. Despite her initial hemodynamic instability, the patient's blood pressure subsequently stabilized and she never required vasopressor support. Past Medical History Past Medical History (Chronic Problems): Chronic Problems (Last Reviewed 04/30/20 @ 06:[address] 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) Z79.01 Thrombocytopenia (Chronic) D69.6 COPD (chronic obstructive pulmonary disease) (Chronic) J44.9 GI bleeding (Chronic) K92.2 Ascites R18.8 Carotid bruit R09.89 GERD (gastroesophageal reflux disease) K21.9 Type 2 diabetes mellitus E11.9 GI bleed K92.2 Pericardial effusion I31.3 Pleural effusion J90 Non-rheumatic aortic stenosis (Inactive) I35.0 PVC's (premature ventricular contractions) (Inactive) I49.3 Pleural effusion, not elsewhere classified (Inactive) J90 Allergies amiodarone Adverse Reaction (Verified 06/17/20 10:50) vomiting, poor balance, dizziness digoxin Adverse Reaction (Verified 06/17/20 10:50) nausea, dry heaves lorazepam [From Ativan] Adverse Reaction (Verified 06/17/20 10:50) Unknown meloxicam [From Mobic] Adverse Reaction (Verified 06/17/20 10:50) Unknown nortriptyline HCl [From Pamelor] Adverse Reaction (Verified 06/17/20 10:50) Unknown zolpidem tartrate [From Ambien] Adverse Reaction (Verified 06/17/20 10:50) Unknown Home Medications: Ambulatory Orders Medication Instructions Recorded Atorvastatin Calcium [Lipitor] 20 mg PO QHS 05/22/13 Levothyroxine [Synthroid] 100 mcg PO DAILY 04/01/15 Ferrous Sulfate 650 mg PO QHS 04/02/15 Folic Acid 1 mg PO DAILY@0800 04/30/15 Cyanocobalamin (Vitamin B-12) 2,500 mcg PO DAILY 06/10/16 [Vitamin B12] Magnesium 250 mg PO DAILY 05/24/17 Cholecalciferol (Vitamin D3) 1,000 unit PO DAILY 04/07/19 [Vitamin D3] Venlafaxine HCl 37.5 mg PO BID 04/07/19 albuterol sulfate 90 mcg/actuation 2 puff INHALATION Q6H PRN PRN #18 g 11/26/19 aerosol inhaler Pantoprazole Sodium [Protonix] 40 mg PO DAILY 01/24/20 Potassium Chloride [K-Dur] 20 meq PO DAILY 01/24/20 doxepin 25 mg capsule 25 mg PO QHS 04/01/20 Darbepoetin Andrei in Polysorbat 0.4 ml IM TH 04/29/20 [Aranesp] Hydrocodone Bitartrate 0.5 tab PO DAILY PRN PRN 04/29/20 Metoprolol(XL)Succ [Toprol Xl 25 mg PO DAILY 04/29/20 (Beta Jeremy)] Warfarin Sodium 0.5 mg PO DAILY 04/29/20 Warfarin [Coumadin] 2 mg PO DAILY 04/29/20 Surgical History: Surgical History (Last Reviewed 04/30/20 @ 06:[address] Zia Banks MD) Presence of permanent cardiac pacemaker (Resolved) Onset Date: 08/30/18 Z95.0 Implant: 07/31/2008; PPM Generator Change - [employer], [employer] MR 08/30/2018 History of mitral valve replacement with mechanical valve (Resolved) Onset Date: 07/22/08 Z95.2 [address] [employer] mechanical valve History of cardioversion Onset Date: 10/2015 Z98.890 History of incision of pericardium Z98.890 for pericardial effusion History of left heart catheterization Onset Date: 07/17/08 Z98.890 Surgical History: - - Mitral valve replacement with mechanical valve. Psychiatric History: No pertinent psych hx [employer] History: No pertinent [employer] history Smoking Status: Current every day smoker - *Family History Paternal Family History: Family History (Last Reviewed 04/29/20 @ 16:[address] Michelle Conley DO) Mother Cancer History Items: No pertinent history Maternal Family History: Family History (Last Reviewed 04/29/20 @ 16:[address] Michelle Cnoley DO) Mother Cancer History Items: No pertinent history Review of Systems Constitutional: Reports: Malaise, Weakness, Fatigue Eyes: Denies: Blurred vision, Double vision HEENT: Denies: Head Aches, Sinus Congestion, Sinus Drainage Cardiovascular: Reports: Light Headedness. Denies: Chest Pain, Palpitations Respiratory: Denies: Cough, Shortness of breath at rest, Sputum production Gastrointestinal: Reports: Hematochezia. Denies: Abdominal Pain Genitourinary: Denies: Dysuria Musculoskeletal: Denies: Joint Pain, Joint Tenderness Skin: Denies: Rash, Wounds Neurological: Denies: Numbness, Tingling, Focal weakness Psychiatric: Denies: Anxiety, Depression, Homicidal Ideations, Suicidal Ideations Hematologic/ Lymphatic: Reports: Anemia, Hx of blood transfusion Objective: The patient's most recent lab work, culture data and imaging studies have all been personally reviewed. Surface echocardiogram from 2016 revealed intact systolic function with an ejection fraction of 65%. Pulmonary artery systolic pressure was estimated to be 70 mmHg. - Physical Exam Vitals/I&O's: Vital Signs Temp Pulse Resp BP Pulse Ox 97.5 F L 100 25 H 53/40 L 100 06/17/20 13:17 06/17/20 13:17 06/17/20 13:17 06/17/20 13:17 06/17/20 13:17 Oxygen Flow Rate (L/min) 4 Oxygen Delivery Method Nasal Cannula Weight: 125 lb Body Mass Index (BMI) 22.8 Finger Stick Blood Glucose 194 Intake and Output for Last 24 Hours 06/15/20 06/16/20 06/17/20 23:59 23:59 23:59 Intake Total 1085.5 / 1085.5 Balance 1085.5 / 1085.5 General: Alert, Cooperative, - - Pale in appearance. HEENT: Atraumatic, Normocephalic Oral: Dry Mucosa Neck: Supple, No Nodes, Trachea Midline Lungs: Normal air movement Cardiovascular: Regular rate, Regular Rhythm Abdomen: Bowel Sounds Present, Soft, Non Tender Extremities: No clubbing, No cyanosis, No edema Skin: No breakdown Musculoskeletal: No Tenderness to Palpation of Joints or Extremities Lymphatic: No Cervical, Supraclavicular, or Inguinal Adenopathy Neurological: Cranial nerves II-XII grossly intact, Neuro grossly intact Psych/Mental Status: Normal Affect, Appropriate Labs (Last 48 Hours) 06/17/20 06/17/20 06/17/20 10:55 10:55 10:55 WBC 2.8 L RBC 1.52 L Hgb 4.4 L* Hct 15.3 L MCV 100.7 H MCH 28.9 MCHC 28.8 L RDW Std Deviation 67.2 H RDW Coeff of Uriel 19.0 H Plt Count 102 L MPV 12.2 H Immature Gran % (Auto) 0.700 Neut % (Auto) 80.2 H Lymph % (Auto) 13.3 L [place] % (Auto) 5.4 Eos % (Auto) 0.0 Baso % (Auto) 0.4 Absolute Neuts (auto) 2.2 Absolute Lymphs (auto) 0.37 L Nucleated RBC % 0 Differential Comment COMMENT Diff Path Review May foll Platelet Estimate SLT DEC Anisocytosis 1+ PT INR Sodium 143 Potassium 4.8 Chloride 113 H Carbon Dioxide 21.0 Anion Gap 9 BUN 28 H Creatinine 1.39 H Estim Creat Clear Calc 26.81 Est GFR (MDRD) Af Amer 47 L Est GFR (MDRD) Non-Af 39 L BUN/Creatinine Ratio 20.1 H Glucose 234 H Calcium 7.5 L Blood Type A POSITIVE Antibody Screen NEGATIVE Crossmatch 06/17/20 06/17/20 10:55 10:55 WBC RBC Hgb Hct MCV MCH MCHC RDW Std Deviation RDW Coeff of Uriel Plt Count MPV Immature Gran % (Auto) Neut % (Auto) Lymph % (Auto) [place] % (Auto) Eos % (Auto) Baso % (Auto) Absolute Neuts (auto) Absolute Lymphs (auto) Nucleated RBC % Differential Comment Diff Path Review Platelet Estimate Anisocytosis PT 82.5 H INR 10.2 H* Sodium Potassium Chloride Carbon Dioxide Anion Gap BUN Creatinine Estim Creat Clear Calc Est GFR (MDRD) Af Amer Est GFR (MDRD) Non-Af BUN/Creatinine Ratio Glucose Calcium Blood Type Antibody Screen Crossmatch See Detail Current Medications Atorvastatin Calcium (Atorvastatin Calcium 20 Mg Tablet) 20 mg PO QHS [facility] Cholecalciferol (Cholecalciferol (Vit D3) 1,000 Unit (25mcg)) 1,000 unit PO DAILY [facility] Doxepin HCl (Doxepin Hcl 25 Mg Capsule) 25 mg PO QHS [facility] Ferrous Sulfate (Ferrous Sulfate 325 Mg Tablet) 650 mg PO QHS [facility] Folic Acid (Folic Acid 1 Mg Tablet) 1 mg PO DAILY@0800 [facility] Sodium Chloride () 1,000 mls @ 150 mls/hr IV .Q6H40M [facility] Stop: 06/18/20 03:07 Last Admin: 06/17/20 14:01 Dose: 150 mls/hr Documented by: Levothyroxine Sodium (Levothyroxine 100 Mcg Tablet) 100 mcg PO DAILY@0600 [facility] Magnesium Chloride (Magnesium Chloride 64 Mg Delay Rel.Tablet) 128 mg PO DAILY [facility] Metoprolol Succinate (Metoprolol(Xl)Succ 25 Mg Tablet) 25 mg PO DAILY [facility] Non-Formulary Medication (Albuterol Sulfate) 2 puff INHALATION Q6H PRN PRN PRN Reason: WHEEZING Non-Formulary Medication (Cyanocobalamin (Vitamin B-12) [Vitamin B12]) 2,500 mcg PO DAILY [facility] Non-Formulary Medication (Darbepoetin Andrei In Polysorbat [Aranesp]) 0.4 ml IM TH [facility] Non-Formulary Medication (Hydrocodone Bitartrate) 0.5 tab PO DAILY PRN PRN PRN Reason: NOT SPECIFIED Ondansetron HCl (Ondansetron 4 Mg/2 Ml Vial) 4 mg IV Q8H PRN PRN PRN Reason: NAUSEA/VOMITING Pantoprazole Sodium (Pantoprazole Sodium 40 Mg Tablet) 40 mg PO DAILY [facility] Potassium Chloride (Potassium Chloride 20 Meq Tablet) 20 meq PO DAILY [facility] Venlafaxine HCl (Venlafaxine Hcl 75 Mg Tablet) 37.5 mg PO BID [facility] Assessment/Plan RECOMMENDATIONS: 1. Insert and maintain large-bore peripheral IV access. 2. Transfuse blood products as ordered. 3. Check H&H posttransfusion. 4. Start PPI twice daily. 5. Await general surgery consultation. 6. Start vasopressor support, if the patient remains persistently hypotensive. 7. Recheck INR. 8. Continue supplemental oxygen per baseline requirement. IMPRESSIONS: 1. Acute on chronic blood loss anemia The patient does have a history of prior admissions for acute on chronic blood loss anemia, the source of which has never been identified. The patient will receive transfusion of blood products in hopes of achieving a hemoglobin greater than 7 g/dL. Plan to check H&H posttransfusion. The patient has received supplemental IV fluid hydration as well. Recommend inserting and maintaining 2 peripheral large bore IVs. The patient will be started on twice daily PPI therapy, with plans for general surgery consultation. 2. Hemorrhagic shock The patient presented to the ICU in a hypotensive state. There is concerned that she may require vasopressors. However, the patient refused to allow for a PICC line or central venous catheter to be placed. If the patient remains hypotensive, recommend starting Levophed through peripheral IV. 3. Coagulopathy The patient is chronically anticoagulated with Coumadin due to a history of atrial fibrillation and mechanical valve. Her INR was supratherapeutic at presentation. She did receive vitamin K in the emergency department. Recommend rechecking INR. Continue to hold Coumadin. 4. Chronic hypoxemic respiratory failure The patient does have a baseline oxygen requirement of 2 L/min, which will be continued. 5. Chronic atrial fibrillation/history of mitral valve replacement/hypothyroidism Complicates care, management, recovery and prognosis. Continue home medications as indicated. This note was generated with [employer] dictation software. It may contain incorrect words, spelling, and punctuation that were not noted in checking the note before signing. Inpatient E&M: 38760 Init Hosp L3
[2020-06-17 16:09] LABS: International Normalized Ratio 2.5; Prothrombin Time (Protime)PT. 26.3 SECONDS (11.7-14.9)
[2020-06-17] MEDS: Ferrous Sulfate 325 MG Tablet 650 MG PO (18:09)
--- NOTE | 2020-06-17 18:43 | NURSING ---
Discussed PICC insertion w/ pt. Pt is currently refusing PICC insertion at this time d/t the fact that her BP is normally low and that she is feeling back to baseline after having transfusions. PICC RN at bedside to discuss procedure risks/benefits. Pt still refusing PICC placement. Notified that a line would need to be emergently placed during the night into the neck or groin if pt were to decompensate and to this she verbalizes understanding.
[2020-06-17] MEDS: 0.9% Saline Lock 10 ML Syringe IV (19:53)
[2020-06-17] MEDS: Venlafaxine HCl 75 MG Tablet 37.5 MG PO (20:55)
[2020-06-17] MEDS: Doxepin Hcl 25 MG Capsule PO (20:56)
[2020-06-17] MEDS: Atorvastatin Calcium 20 MG Tablet PO (20:56)
[2020-06-18] VITALS (30 sets, daily range): BP systolic 64–141; BP diastolic 39–92; PULSE 101–112; RESP 19–30; TEMP 36.4–37.2; O2SAT 93–100
[2020-06-18 03:45] LABS: Absolute Lymphocyte Count 0.37 X10^3/uL (0.83-4.51); Absolute Neutrophil Count 2.8 X10^3/uL (2.0-7.7); Basophil# 0.01 X10^3/uL; Basophil% 0.3 % (0-1); Hematocrit 21.9 % (37-47); Hemoglobin 6.9 g/dL (12.0-15.0); Lymphocyte # 0.37 X10^3/ul (4.0); Mean Corp Hgb Conc 31.5 g/dL (32-36); Mean Corpuscular Volume 95.2 fL (81-99); Mean Platelet Vol. 11.4 fl (6.2-12.0); Monocyte% 5.9 % (0-10); NRBC Flagged by Analyzer 0 % (0-5); Neutrophil # 2.76 X10^3/uL (2.7-7.7); Neutrophil % 81.9 % (47-70); POSITIVE COUNT YES; POSITIVE DIFFERENTIAL YES; Platelet Count 72 K/mm3 (150-450); RBC Distribution Width CV 16.2 % (11.6-14.6); RBC Distribution Width SD 53.1 fl (35.1-43.9); White Blood Count 3.4 K/mm3 (4.4-11.0)
[2020-06-18 03:47] LABS: Differential Indicated SCAN CRITERIA MET
[2020-06-18 03:56] LABS: International Normalized Ratio 1.4; Prothrombin Time (Protime)PT. 16.7 SECONDS (11.7-14.9)
[2020-06-18 03:57] LABS: Anion Gap 5 (5-15); BUN 24 mg/dL (7-18); BUN/Creat Ratio 22.6 RATIO (10-20); Calcium,Total 6.7 mg/dL (8.5-10.1); Chloride 117 mmol/L (98-107); Creatinine, Serum 1.06 mg/dL (0.55-1.02); EST Glomerular Filtration Rate 53 mL/min (>60); Est Glom Filt Rate - Afr Amer 65 mL/min (>60); Estimated Creatinine Clearance 35.15 ml/min; Glucose 102 mg/dL (74-106); Sodium Level 145 mmol/L (136-145)
[2020-06-18 04:07] LABS: Differential Comment SCANNED
[2020-06-18] MEDS: Levothyroxine 100 MCG Tablet PO (05:46)
--- NOTE | 2020-06-18 06:14 | PN_ITS ---
Subjective: The patient was seen and examined at the bedside this morning. Events from the last 24 hours have been reviewed. The patient is currently afebrile, hemodynamically stable and maintaining appropriate oxygen saturations on 2 L/min via nasal cannula. The patient was transfused a total of 3 units of packed red blood cells yesterday. Her hemoglobin has improved to 6.9 g/dL this morning. Platelet count remains low at 72,000. INR this morning was noted to be 1.4. The patient feels much improved this morning. General surgery is not planning for any additional work-up or intervention. Objective: The patient's most recent lab work, culture data and imaging studies have all been personally reviewed. Surface echocardiogram from 2016 revealed intact systolic function with an ejection fraction of 65%. Pulmonary artery systolic pressure was estimated to be 70 mmHg. General: Alert, Cooperative, No apparent distress HEENT: Atraumatic, Normocephalic Oral: Moist Mucosa, No Gingival or Mucosal Lesions/ Ulcerations Neck: Supple, No Nodes, Trachea Midline Lungs: Normal air movement, No rhonchi, No wheeze, No rales Cardiovascular: Normal S1, Normal S2, Tachycardic Abdomen: Bowel Sounds Present, Soft, Non Tender Extremities: No clubbing, No cyanosis Skin: No breakdown Musculoskeletal: No Tenderness to Palpation of Joints or Extremities Lymphatic: No Cervical, Supraclavicular, or Inguinal Adenopathy Neurological: Cranial nerves II-XII grossly intact, Neuro grossly intact Psych/Mental Status: Normal Affect, Appropriate Vital Signs Temp Pulse Resp BP Pulse Ox 98.2 F 109 H 29 H 141/92 H 100 06/18/20 04:00 06/18/20 06:00 06/18/20 06:00 06/18/20 06:00 06/18/20 06:00 Oxygen Flow Rate (L/min) 2 Oxygen Delivery Method Nasal Cannula Weight: 132 lb 8 oz Body Mass Index (BMI) 22.8 Finger Stick Blood Glucose 194 Intake and Output for Last 24 Hours 06/16/20 06/17/20 06/18/20 23:59 23:59 23:59 Intake Total 3505.5 / 3505.5 1060 / 1060 Output Total 0 / 0 0 / 0 Balance 3505.5 / 3505.5 1060 / 1060 Labs (Last 48 Hours) 06/17/20 06/17/20 06/17/20 10:55 10:55 10:55 WBC 2.8 L RBC 1.52 L Hgb 4.4 L* Hct 15.3 L MCV 100.7 H MCH 28.9 MCHC 28.8 L RDW Std Deviation 67.2 H RDW Coeff of Uriel 19.0 H Plt Count 102 L MPV 12.2 H Immature Gran % (Auto) 0.700 Neut % (Auto) 80.2 H Lymph % (Auto) 13.3 L [place] % (Auto) 5.4 Eos % (Auto) 0.0 Baso % (Auto) 0.4 Absolute Neuts (auto) 2.2 Absolute Lymphs (auto) 0.37 L Nucleated RBC % 0 Differential Comment COMMENT Diff Path Review May foll Platelet Estimate SLT DEC Anisocytosis 1+ PT INR Sodium 143 Potassium 4.8 Chloride 113 H Carbon Dioxide 21.0 Anion Gap 9 BUN 28 H Creatinine 1.39 H Estim Creat Clear Calc 26.81 Est GFR (MDRD) Af Amer 47 L Est GFR (MDRD) Non-Af 39 L BUN/Creatinine Ratio 20.1 H Glucose 234 H Calcium 7.5 L Blood Type A POSITIVE Antibody Screen NEGATIVE Crossmatch 06/17/20 06/17/20 06/17/20 10:55 10:55 15:33 WBC RBC Hgb Hct MCV MCH MCHC RDW Std Deviation RDW Coeff of Uriel Plt Count MPV Immature Gran % (Auto) Neut % (Auto) Lymph % (Auto) [place] % (Auto) Eos % (Auto) Baso % (Auto) Absolute Neuts (auto) Absolute Lymphs (auto) Nucleated RBC % Differential Comment Diff Path Review Platelet Estimate Anisocytosis PT 82.5 H 26.3 H INR 10.2 H* 2.5 Sodium Potassium Chloride Carbon Dioxide Anion Gap BUN Creatinine Estim Creat Clear Calc Est GFR (MDRD) Af Amer Est GFR (MDRD) Non-Af BUN/Creatinine Ratio Glucose Calcium Blood Type Antibody Screen Crossmatch See Detail 06/18/20 06/18/20 06/18/20 03:40 03:40 03:40 WBC 3.4 L RBC 2.30 L Hgb 6.9 L Hct 21.9 L MCV 95.2 D MCH 30.0 MCHC 31.5 L D RDW Std Deviation 53.1 H RDW Coeff of Uriel 16.2 H Plt Count 72 L MPV 11.4 Immature Gran % (Auto) 0.900 Neut % (Auto) 81.9 H Lymph % (Auto) 11.0 L [place] % (Auto) 5.9 Eos % (Auto) 0.0 Baso % (Auto) 0.3 Absolute Neuts (auto) 2.8 Absolute Lymphs (auto) 0.37 L Nucleated RBC % 0 Differential Comment SCANNED Diff Path Review May foll Platelet Estimate Anisocytosis PT 16.7 H INR 1.4 Sodium 145 Potassium 4.0 Chloride 117 H Carbon Dioxide 23.0 Anion Gap 5 BUN 24 H Creatinine 1.06 H Estim Creat Clear Calc 35.15 Est GFR (MDRD) Af Amer 65 Est GFR (MDRD) Non-Af 53 L BUN/Creatinine Ratio 22.6 H Glucose 102 Calcium 6.7 L Blood Type Antibody Screen Crossmatch Medical Necessity - Tobacco Use Smoking Status: Current every day smoker Assessment/Plan All Active Problems (Last Reviewed 04/30/20 @ 06:[address] Zia Banks MD) Presence of permanent cardiac pacemaker (Resolved 08/30/18) History of mitral valve replacement with mechanical valve (Resolved 07/22/08) Anemia (Acute) RECOMMENDATIONS: 1. Transfuse 2 units packed red blood cells. Check H&H posttransfusion. 2. Continue PPI therapy as ordered. 3. Wean supplemental oxygen to maintain saturations at or above 90%. 4. Encourage incentive spirometer use and mobilize patient as tolerated. 5. Once stabilized from an anemia perspective, the patient's systemic an ticoagulation will need to be restarted. IMPRESSIONS: 1. Acute on chronic blood loss anemia The patient does have a history of prior admissions for acute on chronic blood loss anemia, the source of which has never been identified. The patient will receive transfusion of blood products in hopes of achieving a hemoglobin greater than 7 g/dL. We will plan to check H&H posttransfusion today. She will be continued on PPI therapy as ordered. There are no plans from a general surgery perspective for additional work-up or intervention. 2. Coagulopathy Resolved. The patient is chronically anticoagulated with Coumadin due to a history of atrial fibrillation and mechanical valve. Her INR was supratherapeutic at presentation. She did receive vitamin K in the emergency department, with subsequent improvement in her INR. Systemic anticoagulation will once again need to be restarted once medically stabilized. 3. Chronic hypoxemic respiratory failure The patient does have a baseline oxygen requirement of 2 L/min, which will be continued. 4. Chronic atrial fibrillation/history of mitral valve replacement/hypothyroidism Complicates care, management, recovery and prognosis. Continue home medications as indicated. This note was generated with [employer] dictation software. It may contain incorrect words, spelling, and punctuation that were not noted in checking the note before signing. Inpatient E&M: 60991 [facility] [place] Hosp L3
--- NOTE | 2020-06-18 06:49 | CON.PCM_ITS ---
Reason for Consult Date of Consultation: 06/18/20 History of Present Illness: The patient is a 79 year old F Patient presented to the ER due to bright red blood per rectum. Patient has had back past medical history for mechanical valve and is on Coumadin. On admission patient's INR was 10, hemoglobin was 4. 4. Patient had another previous episode back in May of this year and her INR at that time was mid fours. Patient states that previously about 3 years ago she had bleeding like this as well and had a work-up at [facility] with endoscopies and capsule did not find any source of bleeding. She did not have endoscopy during her last admission.Patient also normally has low blood pressures where the systolic can be in the 80s and this has been normal for for the past few years. Patient states that she did have a little bit of blood when wiping several days ago from her hemorrhoids. However on Sunday she had quite a bit more blood and was having diarrhea. She thinks her diarrhea did irritate her hemorrhoids earlier this week. Patient presented to the ER yesterday. Patient got 3 units packed red blood cells her hemoglobin is 6.9 from 4.4 her INR was reversed and is currently 1.4 this morning yesterday got down to 2.5. Past Medical History Past Medical History (Chronic Problems): Chronic Problems (Last Reviewed 04/30/20 @ 06:[address] Zia Banks MD) Pancytopenia (Chronic) Hypotension (Chronic) Tachycardia-bradycardia syndrome (Chronic) Nonrheumatic mitral (valve) insufficiency (Chronic) Chronic atrial fibrillation (Chronic) Typical atrial flutter (Chronic) Non-rheumatic tricuspid valve insufficiency (Chronic) Secondary pulmonary hypertension (Chronic) HLD (hyperlipidemia) (Chronic) Nicotine dependence (Chronic) longterm current use of anticoagulant (Chronic) Thrombocytopenia (Chronic) COPD (chronic obstructive pulmonary disease) (Chronic) GI bleeding (Chronic) Medical History: Medical History (Last Reviewed 04/30/20 @ 06:[address] Zia Banks MD) Hypotension (Chronic) I95.9 Tachycardia-bradycardia syndrome (Chronic) I49.5 Nonrheumatic mitral (valve) insufficiency (Chronic) I34.0 Chronic atrial fibrillation (Chronic) I48.2 Typical atrial flutter (Chronic) I48.3 Non-rheumatic tricuspid valve insufficiency (Chronic) I36.1 Secondary pulmonary hypertension (Chronic) HLD (hyperlipidemia) (Chronic) E78.5 Nicotine dependence (Chronic) F17.200 Anemia (Acute) D64.9 tobacco grader current use of anticoagulant (Chronic) Z79.01 Thrombocytopenia (Chronic) D69.6 COPD (chronic obstructive pulmonary disease) (Chronic) J44.9 GI bleeding (Chronic) K92.2 Ascites R18.8 Carotid bruit R09.89 GERD (gastroesophageal reflux disease) K21.9 Type 2 diabetes mellitus E11.9 GI bleed K92.2 Pericardial effusion I31.3 Pleural effusion J90 Non-rheumatic aortic stenosis (Inactive) I35.0 PVC's (premature ventricular contractions) (Inactive) I49.3 Pleural effusion, not elsewhere classified (Inactive) J90 Allergies amiodarone Adverse Reaction (Verified 06/17/20 10:50) vomiting, poor balance, dizziness digoxin Adverse Reaction (Verified 06/17/20 10:50) nausea, dry heaves lorazepam [From Ativan] Adverse Reaction (Verified 06/17/20 10:50) Unknown meloxicam [From Mobic] Adverse Reaction (Verified 06/17/20 10:50) Unknown nortriptyline HCl [From Pamelor] Adverse Reaction (Verified 06/17/20 10:50) Unknown zolpidem tartrate [From Ambien] Adverse Reaction (Verified 06/17/20 10:50) Unknown Home Medications: Ambulatory Orders Medication Instructions Recorded Atorvastatin Calcium [Lipitor] 20 mg PO QHS 05/22/13 Levothyroxine [Synthroid] 100 mcg PO DAILY 04/01/15 Ferrous Sulfate 650 mg PO QHS 04/02/15 Folic Acid 1 mg PO DAILY@0800 04/30/15 Cyanocobalamin (Vitamin B-12) 2,500 mcg PO DAILY 06/10/16 [Vitamin B12] Magnesium 250 mg PO DAILY 05/24/17 Cholecalciferol (Vitamin D3) 1,000 unit PO DAILY 04/07/19 [Vitamin D3] Venlafaxine HCl 37.5 mg PO BID 04/07/19 albuterol sulfate 90 mcg/actuation 2 puff INHALATION Q6H PRN PRN #18 g 11/26/19 aerosol inhaler Pantoprazole Sodium [Protonix] 40 mg PO DAILY 01/24/20 Potassium Chloride [K-Dur] 20 meq PO DAILY 01/24/20 doxepin 25 mg capsule 25 mg PO QHS 04/01/20 Darbepoetin Andrei in Polysorbat 0.4 ml IM TH 04/29/20 [Aranesp] Hydrocodone Bitartrate 0.5 tab PO DAILY PRN PRN 04/29/20 Metoprolol(XL)Succ [Toprol Xl 25 mg PO DAILY 04/29/20 (Beta Jeremy)] Warfarin Sodium 0.5 mg PO DAILY 04/29/20 Warfarin [Coumadin] 2 mg PO DAILY 04/29/20 Surgical History: Surgical History (Last Reviewed 04/30/20 @ 06:[address] Zia Banks MD) Presence of permanent cardiac pacemaker (Resolved) Onset Date: 08/30/18 Z95.0 Implant: 07/31/2008; PPM Generator Change - [employer], [employer]ade MR 08/30/2018 History of mitral valve replacement with mechanical valve (Resolved) Onset Date: 07/22/08 Z95.2 #[address] [employer] mechanical valve History of cardioversion Onset Date: 10/2015 Z98.890 History of incision of pericardium Z98.890 for pericardial effusion History of left heart catheterization Onset Date: 07/17/08 Z98.890 Surgical History: - - Mitral valve replacement with mechanical valve. 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 Michelle Conley DO) Mother Cancer History Items: No pertinent history Maternal Family History: Family History (Last Reviewed 04/29/20 @ 16:[address] Michelle Conley DO) Mother Cancer History Items: No pertinent history Review of Systems Constitutional: Denies: Anorexia Eyes: Denies: Blurred vision HEENT: Denies: Difficulty Swallowing Cardiovascular: Denies: Chest Pain Respiratory: Denies: Shortness of breath at rest Gastrointestinal: Reports: Diarrhea, Hematochezia. Denies: Abdominal Pain, Constipation Skin: Denies: Jaundice Neurological: Denies: Balance problems Psychiatric: Denies: Depression Hematologic/ Lymphatic: Reports: Anemia, Easy Bleeding - Physical Exam Vitals/I&O's: Vital Signs Temp Pulse Resp BP Pulse Ox 98.2 F 109 H 29 H 141/92 H 100 06/18/20 04:00 06/18/20 06:00 06/18/20 06:00 06/18/20 06:00 06/18/20 06:00 Oxygen Flow Rate (L/min) 2 Oxygen Delivery Method Nasal Cannula Weight: 132 lb 8 oz Body Mass Index (BMI) 22.8 Finger Stick Blood Glucose 194 Intake and Output for Last 24 Hours 06/16/20 06/17/20 06/18/20 23:59 23:59 23:59 Intake Total 3505.5 / 3505.5 1060 / 1060 Output Total 0 / 0 0 / 0 Balance 3505.5 / 3505.5 1060 / 1060 General: Alert, Oriented x3, Cooperative, No apparent distress HEENT: Atraumatic Lungs: Normal air movement Cardiovascular: Tachycardic Abdomen: Soft, Non Tender, Non-Distended Extremities: No clubbing, No cyanosis, No edema Neurological: Cranial nerves II-XII grossly intact Psych/Mental Status: Normal Affect Laboratory Results 06/17/20 10:55: WBC 2.8 L, RBC 1.52 L, Hgb 4.4 L*, Hct 15.3 L, MCV 100.7 H, MCH 28.9, MCHC 28.8 L, RDW Std Deviation 67.2 H, RDW Coeff of Uriel 19.0 H, Plt Count 102 L, MPV 12.2 H, Immature Gran % (Auto) 0.700, Neut % (Auto) 80.2 H, Lymph % (Auto) 13.3 L, Bowman % (Auto) 5.4, Eos % (Auto) 0.0, Baso % (Auto) 0.4, Absolute Neuts (auto) 2.2, Absolute Lymphs (auto) 0.37 L, Nucleated RBC % 0, Differential Comment COMMENT, Diff Path Review May foll, Platelet Estimate SLT DEC, Anisocytosis 1+ 06/17/20 10:55: Sodium 143, Potassium 4.8, Chloride 113 H, Carbon Dioxide 21.0, Anion Gap 9, BUN 28 H, Creatinine 1.39 H, Estim Creat Clear Calc 26.81, Est GFR (MDRD) Af Amer 47 L, Est GFR (MDRD) Non-Af 39 L, BUN/Creatinine Ratio 20.1 H, Glucose 234 H, Calcium 7.5 L 06/17/20 10:55: Blood Type A POSITIVE, Antibody Screen NEGATIVE 06/17/20 10:55: PT 82.5 H, INR 10.2 H* 06/17/20 10:55: Crossmatch See Detail 06/17/20 15:33: PT 26.3 H, INR 2.5 06/18/20 03:40: WBC 3.4 L, RBC 2.30 L, Hgb 6.9 L, Hct 21.9 L, MCV 95.2 D, MCH 30.0, MCHC 31.5 L D, RDW Std Deviation 53.1 H, RDW Coeff of Uriel 16.2 H, Plt Count 72 L, MPV 11.4, Immature Gran % (Auto) 0.900, Neut % (Auto) 81.9 H, Lymph % (Auto) 11.0 L, Bowman % (Auto) 5.9, Eos % (Auto) 0.0, Baso % (Auto) 0.3, Absolute Neuts (auto) 2.8, Absolute Lymphs (auto) 0.37 L, Nucleated RBC % 0, Differential Comment SCANNED, Diff Path Review May foll 06/18/20 03:40: Sodium 145, Potassium 4.0, Chloride 117 H, Carbon Dioxide 23.0, Anion Gap 5, BUN 24 H, Creatinine 1.06 H, Estim Creat Clear Calc 35.15, Est GFR (MDRD) Af Amer 65, Est GFR (MDRD) Non-Af 53 L, BUN/Creatinine Ratio 22.6 H, Glucose 102, Calcium 6.7 L 06/18/20 03:40: PT 16.7 H, INR 1.4 Current Medications Albuterol Sulfate (Albuterol 2.5 Mg/3 Ml Vial.Neb.) 2.5 mg INHALATION Q4H PRN PRN Reason: Wheezing Atorvastatin Calcium (Atorvastatin Calcium 20 Mg Tablet) 20 mg PO QHS [facility] Last Admin: 06/17/20 20:56 Dose: 20 mg Documented by: Cholecalciferol (Cholecalciferol (Vit D3) 1,000 Unit (25mcg)) 1,000 unit PO DAILY [facility] Cyanocobalamin (Cyanocobalamin 500 Mcg Tablet) 2,500 mcg PO DAILY [facility] Doxepin HCl (Doxepin Hcl 25 Mg Capsule) 25 mg PO QHS [facility] Last Admin: 06/17/20 20:56 Dose: 25 mg Documented by: Ferrous Sulfate (Ferrous Sulfate 325 Mg Tablet) 650 mg PO 1700 [facility] Last Admin: 06/17/20 18:09 Dose: 650 mg Documented by: Folic Acid (Folic Acid 1 Mg Tablet) 1 mg PO DAILY@0800 [facility] Heparin Sodium (Beef Lung) (Heparin Pf Lock 10 Units/Ml 50 Units/5 Ml Syringe) 50 units IV UD PRN PRN Reason: PICC Line Heparin Flush Pantoprazole Sodium 40 mg/ (Sodium Chloride) 110 mls @ 330 mls/hr IV Q12 [facility] Last Admin: 06/17/20 20:50 Dose: Not Given Documented by: Norepinephrine Bitartrate 8 mg (/ Sodium Chloride) 250 mls @ 9.375 mls/hr CONT INF .[id number] [facility]; Protocol Last Admin: 06/17/20 17:55 Dose: Not Given Documented by: Levothyroxine Sodium (Levothyroxine 100 Mcg Tablet) 100 mcg PO DAILY@0600 [facility] Last Admin: 06/18/20 05:46 Dose: 100 mcg Documented by: Magnesium Chloride (Magnesium Chloride 64 Mg Delay Rel.Tablet) 128 mg PO DAILY [facility] Non-Formulary Medication (Darbepoetin Andrei In Polysorbat [Aranesp]) 0.4 ml IM TH [facility] Ondansetron HCl (Ondansetron 4 Mg/2 Ml Vial) 4 mg IV Q8H PRN PRN PRN Reason: NAUSEA/VOMITING Potassium Chloride (Potassium Chloride 20 Meq Tablet) [facility] Sodium Chloride (0.9% Saline Lock 10 Ml Syringe) 10 - 40 ml IV UD PRN PRN Reason: Open End PICC Flush Last Admin: 06/17/20 19:53 Dose: 10 ml Documented by: Sodium Chloride (0.9 % Nacl (Sterile) Posiflush 10 Ml) 10 - 40 ml IV UD PRN PRN Reason: Port access or dressing change Sodium Chloride (0.9% Saline Lock 10 Ml Syringe) 10 - 40 ml IV UD PRN PRN Reason: SALINE FLUSH Venlafaxine HCl (Venlafaxine Hcl 75 Mg Tablet) 37.5 mg PO BID [facility] Last Admin: 06/17/20 20:55 Dose: 37.5 mg Documented by: Assessment/Plan All Active Problems (Last Reviewed 04/30/20 @ 06:[address] Zia Banks MD) Presence of permanent cardiac pacemaker (Resolved 08/30/18) History of mitral valve replacement with mechanical valve (Resolved 07/22/08) Anemia (Acute) 79-year-old female with a mechanical valve on Coumadin, supratherapeutic INR on admit?reserve reversed, GI bleed, anemia status post 3 units packed red blood cells. INR -reversed. Currently 1.4 patient is on heparin due to mechanical valve Hb 6.9 from 4.4 after 3 units Patient's bleeding was bright red blood likely due to hemorrhoids as she is previously had work-ups that did not find anything including EGD, colonoscopy, capsule per patient and previous notes. Patient did respond appropriately to the packed red blood cells after her INR was reversed. If patient did continue to bleed would recommend a bleeding scan. Would not plan to do endoscopy here as she is her systolic blood pressure can be in the 80s which could be an issue with anesthesia--If needed endoscopy patient may require transfer to a tertiary care facility.Discussed with patient she had no further questions at this time she was hopeful she could go home tomorrow Sera Hooks M.D. Pager: [phone] [facility] [address] [place] [address], Outpatient [facility], [address] [place] [address] Office: [phone] Inpatient E&M: 33132 Init Hosp L2
--- NOTE | 2020-06-18 07:28 | PCM.PN.HOSP ---
Subjective: Patient seen and examined. She was admitted with a complaint of rectal bleeding was found to have supratherapeutic INR and her Coumadin. Hemoglobin was 4.4. She is s/p transfusion of 3 units of packed red blood cells. Globin this morning is 6.9. WBC is 3.4 and platelets are down to 72. She feels better today and has no complaints. Review of symptoms otherwise negative. Vitals/I&O's: Vital Signs Temp Pulse Resp BP Pulse Ox 98.2 F 111 H 26 H 84/67 L 99 06/18/20 04:00 06/18/20 07:00 06/18/20 07:00 06/18/20 07:00 06/18/20 07:00 Oxygen Flow Rate (L/min) 2 Oxygen Delivery Method Nasal Cannula Weight: 132 lb 8 oz Body Mass Index (BMI) 22.8 Finger Stick Blood Glucose 194 Intake and Output for Last 24 Hours 06/16/20 06/17/20 06/18/20 23:59 23:59 23:59 Intake Total 3505.5 / 3505.5 1060 / 1060 Output Total 0 / 0 0 / 0 Balance 3505.5 / 3505.5 1060 / 1060 General: Alert, Oriented x3, Cooperative, No apparent distress HEENT: Atraumatic, PERRLA, EOMI, Normocephalic, - - patient is very pale Oral: Dry Mucosa Neck: Supple, No JVD, Negative Carotid Bruits Lungs: Clear to auscultation, Normal air movement, No rhonchi, No wheeze Cardiovascular: Regular rate, Regular Rhythm, Normal S1, Normal S2, No murmurs Abdomen: Bowel Sounds Present, Soft, Non Tender, Non-Distended, No Hepato-splenomegaly Extremities: No clubbing, No cyanosis, No edema, Capillary Refill Less than 3 Seconds Skin: No rashes, No breakdown Musculoskeletal: No Tenderness to Palpation of Joints or Extremities Lymphatic: No Cervical, Supraclavicular, or Inguinal Adenopathy Neurological: Cranial nerves II-XII grossly intact, Motor Exam 5/5 strength throughout Psych/Mental Status: Normal Affect, Appropriate, Alert and oriented to time, place, person, mood and affect Laboratory Results 06/17/20 10:55: WBC 2.8 L, RBC 1.52 L, Hgb 4.4 L*, Hct 15.3 L, MCV 100.7 H, MCH 28.9, MCHC 28.8 L, RDW Std Deviation 67.2 H, RDW Coeff of Uriel 19.0 H, Plt Count 102 L, MPV 12.2 H, Immature Gran % (Auto) 0.700, Neut % (Auto) 80.2 H, Lymph % (Auto) 13.3 L, Stoddard % (Auto) 5.4, Eos % (Auto) 0.0, Baso % (Auto) 0.4, Absolute Neuts (auto) 2.2, Absolute Lymphs (auto) 0.37 L, Nucleated RBC % 0, Differential Comment COMMENT, Diff Path Review December foll, Platelet Estimate SLT DEC, Anisocytosis 1+ 06/17/20 10:55: Sodium 143, Potassium 4.8, Chloride 113 H, Carbon Dioxide 21.0, Anion Gap 9, BUN 28 H, Creatinine 1.39 H, Estim Creat Clear Calc 26.81, Est GFR (MDRD) Af Amer 47 L, Est GFR (MDRD) Non-Af 39 L, BUN/Creatinine Ratio 20.1 H, Glucose 234 H, Calcium 7.5 L 06/17/20 10:55: Blood Type A POSITIVE, Antibody Screen NEGATIVE 06/17/20 10:55: PT 82.5 H, INR 10.2 H* 06/17/20 10:55: Crossmatch See Detail 06/17/20 10:55: Crossmatch See Detail 06/17/20 15:33: PT 26.3 H, INR 2.5 06/18/20 03:40: WBC 3.4 L, RBC 2.30 L, Hgb 6.9 L, Hct 21.9 L, MCV 95.2 D, MCH 30.0, MCHC 31.5 L D, RDW Std Deviation 53.1 H, RDW Coeff of Uriel 16.2 H, Plt Count 72 L, MPV 11.4, Immature Gran % (Auto) 0.900, Neut % (Auto) 81.9 H, Lymph % (Auto) 11.0 L, Stoddard % (Auto) 5.9, Eos % (Auto) 0.0, Baso % (Auto) 0.3, Absolute Neuts (auto) 2.8, Absolute Lymphs (auto) 0.37 L, Nucleated RBC % 0, Differential Comment SCANNED, Diff Path Review December foll 06/18/20 03:40: Sodium 145, Potassium 4.0, Chloride 117 H, Carbon Dioxide 23.0, Anion Gap 5, BUN 24 H, Creatinine 1.06 H, Estim Creat Clear Calc 35.15, Est GFR (MDRD) Af Amer 65, Est GFR (MDRD) Non-Af 53 L, BUN/Creatinine Ratio 22.6 H, Glucose 102, Calcium 6.7 L 06/18/20 03:40: PT 16.7 H, INR 1.4 Current Medications Albuterol Sulfate (Albuterol 2.5 Mg/3 Ml Vial.Neb.) 2.5 mg INHALATION Q4H PRN PRN Reason: Wheezing Atorvastatin Calcium (Atorvastatin Calcium 20 Mg Tablet) 20 mg PO QHS [facility] Last Admin: 06/17/20 20:56 Dose: 20 mg Documented by: Cholecalciferol (Cholecalciferol (Vit D3) 1,000 Unit (25mcg)) 1,000 unit PO DAILY [facility] Cyanocobalamin (Cyanocobalamin 500 Mcg Tablet) 2,500 mcg PO DAILY [facility] Doxepin HCl (Doxepin Hcl 25 Mg Capsule) 25 mg PO QHS [facility] Last Admin: 06/17/20 20:56 Dose: 25 mg Documented by: Ferrous Sulfate (Ferrous Sulfate 325 Mg Tablet) 650 mg PO 1700 [facility] Last Admin: 06/17/20 18:09 Dose: 650 mg Documented by: Folic Acid (Folic Acid 1 Mg Tablet) 1 mg PO DAILY@0800 [facility] Heparin Sodium (Beef Lung) (Heparin Pf Lock 10 Units/Ml 50 Units/5 Ml Syringe) 50 units IV UD PRN PRN Reason: PICC Line Heparin Flush Pantoprazole Sodium 40 mg/ (Sodium Chloride) 110 mls @ 330 mls/hr IV Q12 [facility] Last Admin: 06/17/20 20:50 Dose: Not Given Documented by: Norepinephrine Bitartrate 8 mg (/ Sodium Chloride) 250 mls @ 9.375 mls/hr CONT INF .[id number] [facility]; Protocol Last Admin: 06/17/20 17:55 Dose: Not Given Documented by: Levothyroxine Sodium (Levothyroxine 100 Mcg Tablet) 100 mcg PO DAILY@0600 [facility] Last Admin: 06/18/20 05:46 Dose: 100 mcg Documented by: Magnesium Chloride (Magnesium Chloride 64 Mg Delay Rel.Tablet) 128 mg PO DAILY [facility] Non-Formulary Medication (Darbepoetin Andrei In Polysorbat [Aranesp]) 0.4 ml IM TH [facility] Ondansetron HCl (Ondansetron 4 Mg/2 Ml Vial) 4 mg IV Q8H PRN PRN PRN Reason: NAUSEA/VOMITING Potassium Chloride (Potassium Chloride 20 Meq Tablet) 20 meq PO DAILYCM [facility] Sodium Chloride (0.9% Saline Lock 10 Ml Syringe) 10 - 40 ml IV UD PRN PRN Reason: Open End PICC Flush Last Admin: 06/17/20 19:53 Dose: 10 ml Documented by: Sodium Chloride (0.9 % Nacl (Sterile) Posiflush 10 Ml) 10 - 40 ml IV UD PRN PRN Reason: Port access or dressing change Sodium Chloride (0.9% Saline Lock 10 Ml Syringe) 10 - 40 ml IV UD PRN PRN Reason: SALINE FLUSH Venlafaxine HCl (Venlafaxine Hcl 75 Mg Tablet) 37.5 mg PO BID [facility] Last Admin: 06/17/20 20:55 Dose: 37.5 mg Documented by: STROKE Vital Signs/Narrative: Vital Signs Temp Pulse Resp BP Pulse Ox 06/18/20 07:00 111 H 26 H 84/67 L 99 06/18/20 06:00 109 H 29 H 141/92 H 100 06/18/20 05:00 108 H 20 H 73/44 L 97 06/18/20 04:00 98.2 F 108 H 21 H 79/48 L 97 06/18/20 03:59 108 H Medical Necessity - Tobacco Use Smoking Status: Current every day smoker Assessment/Plan All Active Problems (Last Reviewed 04/30/20 @ 06:[address] Zia Banks MD) Presence of permanent cardiac pacemaker (Resolved 08/30/18) History of mitral valve replacement with mechanical valve (Resolved 07/22/08) Anemia (Acute) # Acute on chronic anemia due to lower GI bleed Hb today is 6.9, after being transfused with 3 units of PRBCs INR was >10 on admission, and is now down to 1.4 today after receiving IV vitamin K general surgery on board plan is to transfuse 2 units of PRBCs today per general surgery, no plans for active intervention; if bleeding recurs, to consider a bleeding scan #Lower GI bleed: Management as above. #Supratherapeutic INR INR was 10.2, and is now 1.4, after receiving vitamin K #Hypotension: has remained stable, in the 90s and 80s systolic, which she says is her baseline. # SIRS criteria; she has remained tachycardic and tachypneic no focus of infection though, and is likely related to her severe acute on chronic anemia her metoprolol is also on hold due to her low BP. #pancytopenia; Wbc is 3.4, with platelets down to 72 and Hb of 6.9. Will monitor. #Chronic hypoxic respiratory failure due to COPD: States she is on 2 L of oxygen at home. Titrate oxygen to maintain saturation above 90%. Breathing treatments with bronchodilators. #Chronic A. fib: On Toprol. Hold metoprolol on account of hypotension. Eliquis also hold on account of supratherapeutic INR. has been tachycardic, with HR in the 110s. consider resuming metoprolol if BP improves #History of mitral valve replacement with mechanical valve in place: Hold Coumadin on account of supratherapeutic INR. #Hypothyroidism: On Synthroid #Tachybradycardia syndrome s/p pacemaker: Stable. Prophylaxis: SCDs CODE STATUS: Full code Inpatient E&M: 64858 Subs Hosp L3
[2020-06-18] MEDS: Folic Acid 1 MG Tablet PO (11:06)
[2020-06-18] MEDS: Magnesium Chloride 64 MG Delay Rel.Tablet 128 MG PO (11:07)
[2020-06-18] MEDS: Venlafaxine HCl 75 MG Tablet 37.5 MG PO ×2 (11:07→20:52)
[2020-06-18] MEDS: Cyanocobalamin 500 MCG Tablet 2500 MCG PO (11:07)
[2020-06-18 13:22] LABS: Pathologist Review Reviewed
--- NOTE | 2020-06-18 16:24 | CASEMGMT ---
RN CM Assessment Note Introduced role of CM to patient in room. Patient is awake, alert and able to participate in assessment. Demographics, PCP verified. Reviewed assessment from previous admission and the patient states nothing has changed. She lives at home with her in a 2 story home. She is generally independent at home. She completes her own ADL's and IADL's, though her does most cooking and cleaning. Diagnosis: LGIB PCP: Dr. Muñoz Specialists: Dr. Thomas Insurance: [facility], [facility] Preferred Pharmacy: [facility] Prescription Benefit: yes LNOK: and daughter Living Arrangements: see above Tranportation: drives or family can drive DME: verified patient has shower chair, cane, walker, WC, grab bars, and oxygen through [employer] she wears @ night and nebulizer machine HHC: none Patient DC Goals: Home on discharge DC Plan: anticipate home on discharge. CM available for discharge planning coordination. Contact CM for any concerns/needs that may arise. Jonel BLOOD RN ACM
[2020-06-18 17:33] LABS: Hematocrit 28.9 % (37-47); Hemoglobin 9.5 g/dL (12.0-15.0); POSITIVE COUNT YES
[2020-06-18] MEDS: 0.9% Saline Lock 10 ML Syringe IV ×2 (17:33→21:02)
[2020-06-18] MEDS: Ferrous Sulfate 325 MG Tablet 650 MG PO (17:34)
[2020-06-18] MEDS: Atorvastatin Calcium 20 MG Tablet PO (20:52)
[2020-06-18] MEDS: Doxepin Hcl 25 MG Capsule PO (20:52)
[2020-06-18] MEDS: Epoetin Alfa epbx 10,000 UNITS/ML 60000 UNIT IV (20:54)
[2020-06-19] VITALS (15 sets, daily range): BP systolic 69–88; BP diastolic 43–54; PULSE 88–113; RESP 18–29; TEMP 36.4–37.1; O2SAT 91–99
[2020-06-19 05:27] LABS: Absolute Neutrophil Count 2.4 X10^3/uL (2.0-7.7); Basophil# 0.01 X10^3/uL; Basophil% 0.3 % (0-1); Hematocrit 27.3 % (37-47); Hemoglobin 8.8 g/dL (12.0-15.0); Lymphocyte % 10.2 % (19-41); Mean Corp Hgb Conc 32.2 g/dL (32-36); Mean Corpuscular Hgb 30.2 pg (27.0-32.0); Mean Corpuscular Volume 93.8 fL (81-99); Mean Platelet Vol. 10.8 fl (6.2-12.0); Monocyte# 0.23 X10^3/uL; Monocyte% 7.8 % (0-10); NRBC Flagged by Analyzer 0 % (0-5); Neutrophil # 2.37 X10^3/uL (2.7-7.7); POSITIVE COUNT YES; POSITIVE DIFFERENTIAL YES; Platelet Count 66 K/mm3 (150-450); RBC Distribution Width CV 16.7 % (11.6-14.6); Red Blood Count 2.91 M/mm3 (4.2-5.4); White Blood Count 2.9 K/mm3 (4.4-11.0)
[2020-06-19 05:31] LABS: Differential Indicated SCAN CRITERIA MET
[2020-06-19 05:40] LABS: Anion Gap 5 (5-15); BUN 19 mg/dL (7-18); BUN/Creat Ratio 17.6 RATIO (10-20); Calcium,Total 7.1 mg/dL (8.5-10.1); Chloride 116 mmol/L (98-107); Creatinine, Serum 1.08 mg/dL (0.55-1.02); EST Glomerular Filtration Rate 52 mL/min (>60); Est Glom Filt Rate - Afr Amer 63 mL/min (>60); Glucose 112 mg/dL (74-106); Potassium 3.8 mmol/L (3.5-5.1); Sodium Level 143 mmol/L (136-145)
--- NOTE | 2020-06-19 06:06 | PCM.PN.INT ---
Subjective: The patient was seen and examined at the bedside this morning. Events from the last 24 hours have been reviewed. The patient is currently afebrile, hemodynamically stable and maintaining appropriate oxygen saturations on room air. The patient feels well overall. Her blood counts remained stable. Her blood pressure during my interaction with the patient was noted to be 77/43 mmHg, which the patient reports is baseline for her. Objective: The patient's most recent lab work, culture data and imaging studies have all been personally reviewed. Surface echocardiogram from 2016 revealed intact systolic function with an ejection fraction of 65%. Pulmonary artery systolic pressure was estimated to be 70 mmHg. General: Alert, Cooperative, No apparent distress HEENT: Atraumatic, PERRLA, Normocephalic Oral: No Gingival or Mucosal Lesions/ Ulcerations Neck: Supple, No Nodes, Trachea Midline Lungs: Normal air movement Cardiovascular: Normal S1, Normal S2, Tachycardic Abdomen: Bowel Sounds Present, Soft, Non Tender Extremities: No clubbing, No cyanosis, No edema Skin: No breakdown Musculoskeletal: No Tenderness to Palpation of Joints or Extremities Lymphatic: No Cervical, Supraclavicular, or Inguinal Adenopathy Neurological: Cranial nerves II-XII grossly intact, Neuro grossly intact Psych/Mental Status: Normal Affect Vital Signs Temp Pulse Resp BP Pulse Ox 97.9 F 108 H 24 H 69/48 L 92 06/19/20 04:00 06/19/20 04:00 06/19/20 04:00 06/19/20 04:00 06/19/20 04:00 Oxygen Flow Rate (L/min) 2 Oxygen Delivery Method Room Air Weight: 132 lb 6.4 oz Body Mass Index (BMI) 22.8 Finger Stick Blood Glucose 194 Intake and Output for Last 24 Hours 06/17/20 06/18/20 06/19/20 23:59 23:59 23:59 Intake Total 3505.5 / 3505.5 2009 440 / 440 Output Total 0 / 0 0 / 200 200 / 200 Balance 3505.5 / 3505.5 2009 240 / 240 Labs (Last 48 Hours) 06/17/20 06/17/20 06/17/20 10:55 10:55 10:55 WBC 2.8 L RBC 1.52 L Hgb 4.4 L* Hct 15.3 L MCV 100.7 H MCH 28.9 MCHC 28.8 L RDW Std Deviation 67.2 H RDW Coeff of Uriel 19.0 H Plt Count 102 L MPV 12.2 H Immature Gran % (Auto) 0.700 Neut % (Auto) 80.2 H Lymph % (Auto) 13.3 L [place] % (Auto) 5.4 Eos % (Auto) 0.0 Baso % (Auto) 0.4 Absolute Neuts (auto) 2.2 Absolute Lymphs (auto) 0.37 L Nucleated RBC % 0 Differential Comment COMMENT Diff Path Review Reviewed Platelet Estimate SLT DEC Anisocytosis 1+ PT INR Sodium 143 Potassium 4.8 Chloride 113 H Carbon Dioxide 21.0 Anion Gap 9 BUN 28 H Creatinine 1.39 H Estim Creat Clear Calc 26.81 Est GFR (MDRD) Af Amer 47 L Est GFR (MDRD) Non-Af 39 L BUN/Creatinine Ratio 20.1 H Glucose 234 H Calcium 7.5 L Blood Type A POSITIVE Antibody Screen NEGATIVE Crossmatch 06/17/20 06/17/20 06/17/20 10:55 10:55 10:55 WBC RBC Hgb Hct MCV MCH MCHC RDW Std Deviation RDW Coeff of Uriel Plt Count MPV Immature Gran % (Auto) Neut % (Auto) Lymph % (Auto) [place] % (Auto) Eos % (Auto) Baso % (Auto) Absolute Neuts (auto) Absolute Lymphs (auto) Nucleated RBC % Differential Comment Diff Path Review Platelet Estimate Anisocytosis PT 82.5 H INR 10.2 H* Sodium Potassium Chloride Carbon Dioxide Anion Gap BUN Creatinine Estim Creat Clear Calc Est GFR (MDRD) Af Amer Est GFR (MDRD) Non-Af BUN/Creatinine Ratio Glucose Calcium Blood Type Antibody Screen Crossmatch See Detail See Detail 06/17/20 06/18/20 06/18/20 15:33 03:40 03:40 WBC 3.4 L RBC 2.30 L Hgb 6.9 L Hct 21.9 L MCV 95.2 D MCH 30.0 MCHC 31.5 L D RDW Std Deviation 53.1 H RDW Coeff of Uriel 16.2 H Plt Count 72 L MPV 11.4 Immature Gran % (Auto) 0.900 Neut % (Auto) 81.9 H Lymph % (Auto) 11.0 L [place] % (Auto) 5.9 Eos % (Auto) 0.0 Baso % (Auto) 0.3 Absolute Neuts (auto) 2.8 Absolute Lymphs (auto) 0.37 L Nucleated RBC % 0 Differential Comment SCANNED Diff Path Review May foll Platelet Estimate Anisocytosis PT 26.3 H INR 2.5 Sodium 145 Potassium 4.0 Chloride 117 H Carbon Dioxide 23.0 Anion Gap 5 BUN 24 H Creatinine 1.06 H Estim Creat Clear Calc 35.15 Est GFR (MDRD) Af Amer 65 Est GFR (MDRD) Non-Af 53 L BUN/Creatinine Ratio 22.6 H Glucose 102 Calcium 6.7 L Blood Type Antibody Screen Crossmatch 06/18/20 06/18/20 06/19/20 03:40 17:10 05:20 WBC 2.9 L RBC 2.91 L Hgb 9.5 L 8.8 L Hct 28.9 L 27.3 L MCV 93.8 MCH 30.2 MCHC 32.2 RDW Std Deviation 54.0 H RDW Coeff of Uriel 16.7 H Plt Count 66 L MPV 10.8 Immature Gran % (Auto) 0.700 Neut % (Auto) 81.0 H Lymph % (Auto) 10.2 L [place] % (Auto) 7.8 Eos % (Auto) 0.0 Baso % (Auto) 0.3 Absolute Neuts (auto) 2.4 Absolute Lymphs (auto) 0.30 L Nucleated RBC % 0 Differential Comment Diff Path Review Platelet Estimate Anisocytosis PT 16.7 H INR 1.4 Sodium Potassium Chloride Carbon Dioxide Anion Gap BUN Creatinine Estim Creat Clear Calc Est GFR (MDRD) Af Amer Est GFR (MDRD) Non-Af BUN/Creatinine Ratio Glucose Calcium Blood Type Antibody Screen Crossmatch 06/19/20 05:20 WBC RBC Hgb Hct MCV MCH MCHC RDW Std Deviation RDW Coeff of Uriel Plt Count MPV Immature Gran % (Auto) Neut % (Auto) Lymph % (Auto) [place] % (Auto) Eos % (Auto) Baso % (Auto) Absolute Neuts (auto) Absolute Lymphs (auto) Nucleated RBC % Differential Comment Diff Path Review Platelet Estimate Anisocytosis PT INR Sodium 143 Potassium 3.8 Chloride 116 H Carbon Dioxide 22.0 Anion Gap 5 BUN 19 H Creatinine 1.08 H Estim Creat Clear Calc 34.50 Est GFR (MDRD) Af Amer 63 Est GFR (MDRD) Non-Af 52 L BUN/Creatinine Ratio 17.6 Glucose 112 H Calcium 7.1 L Blood Type Antibody Screen Crossmatch Medical Necessity - Tobacco Use Smoking Status: Current every day smoker Assessment/Plan All Active Problems (Last Reviewed 04/30/20 @ 06:[address] Zia Banks MD) Presence of permanent cardiac pacemaker (Resolved 08/30/18) History of mitral valve replacement with mechanical valve (Resolved 07/22/08) Anemia (Acute) RECOMMENDATIONS: 1. Continue to monitor H&H daily and transfuse if hemoglobin drops below 7 g/dL. 2. Continue PPI therapy as ordered. 3. Wean supplemental oxygen to maintain saturations at or above 90%. 4. Encourage incentive spirometer use and mobilize patient as tolerated. 5. Once stabilized from an anemia perspective, the patient's systemic anticoagulation will need to be restarted. 6. Given the patient's lack of further ICU or pulmonary needs, will sign off. Please call with any additional questions. IMPRESSIONS: 1. Acute on chronic blood loss anemia The patient does have a history of prior admissions for acute on chronic blood loss anemia, the source of which has never been identified. At this time, the patient has been transfused and remains stable from a blood count perspective. Recommend continuing to monitor H&H, with plans to transfuse if hemoglobin drops below 7 g/dL. Continue twice daily PPI therapy. 2. Coagulopathy Resolved. The patient is chronically anticoagulated with Coumadin due to a history of atrial fibrillation and mechanical valve. Her INR was supratherapeutic at presentation. She did receive vitamin K in the emergency department, with subsequent improvement in her INR. Systemic anticoagulation will once again need to be restarted once medically stabilized. 3. Chronic hypoxemic respiratory failure The patient does have a baseline oxygen requirement of 2 L/min, which will be continued. 4. Chronic atrial fibrillation/history of mitral valve replacement/hypothyroidism Complicates care, management, recovery and prognosis. Continue home medications as indicated. This note was generated with [employer] software. It may contain incorrect words, spelling, and punctuation that were not noted in checking the note before signing. Inpatient E&M: 74655 [facility] Hosp L3
[2020-06-19] MEDS: Levothyroxine 100 MCG Tablet PO (06:40)
--- NOTE | 2020-06-19 07:49 | PCM.PN.HOSP ---
Subjective: Patient seen and examined. She has no complaints. Blood pressure still remains low but she says this is the norm for her. She has remained hemodynamically stable. Vitals/I&O's: Vital Signs Temp Pulse Resp BP Pulse Ox 97.9 F 108 H 24 H 69/48 L 92 06/19/20 04:00 06/19/20 04:00 06/19/20 04:00 06/19/20 04:00 06/19/20 04:00 Oxygen Flow Rate (L/min) 2 Oxygen Delivery Method Room Air Weight: 132 lb 6.4 oz Body Mass Index (BMI) 22.8 Finger Stick Blood Glucose 194 Intake and Output for Last 24 Hours 06/17/20 06/18/20 06/19/20 23:59 23:59 23:59 Intake Total 3505.5 / 3505.5 2009 440 / 440 Output Total 0 / 0 0 / 200 200 / 200 Balance 3505.5 / 3505.5 2009 240 / 240 General: Alert, Oriented x3, Cooperative, No apparent distress HEENT: Atraumatic, PERRLA, EOMI, Normocephalic, Oral: Dry Mucosa Neck: Supple, No JVD, Negative Carotid Bruits Lungs: Clear to auscultation, Normal air movement, No rhonchi, No wheeze Cardiovascular: Regular rate, Regular Rhythm, Normal S1, Normal S2, No murmurs Abdomen: Bowel Sounds Present, Soft, Non Tender, Non-Distended, No Hepato-splenomegaly Extremities: No clubbing, No cyanosis, No edema, Capillary Refill Less than 3 Seconds Skin: No rashes, No breakdown Musculoskeletal: No Tenderness to Palpation of Joints or Extremities Lymphatic: No Cervical, Supraclavicular, or Inguinal Adenopathy Neurological: Cranial nerves II-XII grossly intact, Motor Exam 5/5 strength throughout Psych/Mental Status: Normal Affect, Appropriate, Alert and oriented to time, place, person, mood and affect Laboratory Results 06/17/20 10:55: Diff Path Review Reviewed 06/17/20 10:55: Crossmatch See Detail 06/17/20 10:55: Crossmatch See Detail 06/18/20 17:10: Hgb 9.5 L, Hct 28.9 L 06/19/20 05:20: WBC 2.9 L, RBC 2.91 L, Hgb 8.8 L, Hct 27.3 L, MCV 93.8, MCH 30.2, MCHC 32.2, RDW Std Deviation 54.0 H, RDW Coeff of Uriel 16.7 H, Plt Count 66 L, MPV 10.8, Immature Gran % (Auto) 0.700, Neut % (Auto) 81.0 H, Lymph % (Auto) 10.2 L, [place] % (Auto) 7.8, Eos % (Auto) 0.0, Baso % (Auto) 0.3, Absolute Neuts (auto) 2.4, Absolute Lymphs (auto) 0.30 L, Nucleated RBC % 0, Differential Comment COMMENT, Diff Path Review December06/19/20 05:20: Sodium 143, Potassium 3.8, Chloride 116 H, Carbon Dioxide 22.0, Anion Gap 5, BUN 19 H, Creatinine 1.08 H, Estim Creat Clear Calc 34.50, Est GFR (MDRD) Af Amer 63, Est GFR (MDRD) Non-Af 52 L, BUN/Creatinine Ratio 17.6, Glucose 112 H, Calcium 7.1 L Current Medications Albuterol Sulfate (Albuterol 2.5 Mg/3 Ml Vial.Neb.) 2.5 mg INHALATION Q4H PRN PRN Reason: Wheezing Atorvastatin Calcium (Atorvastatin Calcium 20 Mg Tablet) 20 mg PO QHS [facility] Last Admin: 06/18/20 20:52 Dose: 20 mg Documented by: Cholecalciferol (Cholecalciferol (Vit D3) 1,000 Unit (25mcg)) 1,000 unit PO DAILY [facility] Last Admin: 06/18/20 11:07 Dose: 1,000 unit Documented by: Cyanocobalamin (Cyanocobalamin 500 Mcg Tablet) 2,500 mcg PO DAILY [facility] Last Admin: 06/18/20 11:07 Dose: 2,500 mcg Documented by: Doxepin HCl (Doxepin Hcl 25 Mg Capsule) 25 mg PO QHS [facility] Last Admin: 06/18/20 20:52 Dose: 25 mg Documented by: Epoetin Andrei-epbx (Epoetin Andrei Epbx 10,000 Units/Ml) 60,000 units IV Th@1000 [facility] Last Admin: 06/18/20 20:54 Dose: 60,000 units Documented by: Ferrous Sulfate (Ferrous Sulfate 325 Mg Tablet) 650 mg PO 1700 [facility] Last Admin: 06/18/20 17:34 Dose: 650 mg Documented by: Folic Acid (Folic Acid 1 Mg Tablet) 1 mg PO DAILY@0800 [facility] Last Admin: 06/18/20 11:06 Dose: 1 mg Documented by: Heparin Sodium (Beef Lung) (Heparin Pf Lock 10 Units/Ml 50 Units/5 Ml Syringe) 50 units IV UD PRN PRN Reason: PICC Line Heparin Flush Pantoprazole Sodium 40 mg/ (Sodium Chloride) 110 mls @ 330 mls/hr IV Q12 [facility] Last Admin: 06/18/20 20:51 Dose: Not Given Documented by: Levothyroxine Sodium (Levothyroxine 100 Mcg Tablet) 100 mcg PO DAILY@0600 [facility] Last Admin: 06/19/20 06:40 Dose: 100 mcg Documented by: Magnesium Chloride (Magnesium Chloride 64 Mg Delay Rel.Tablet) 128 mg PO DAILY [facility] Last Admin: 06/18/20 11:07 Dose: 128 mg Documented by: Ondansetron HCl (Ondansetron 4 Mg/2 Ml Vial) 4 mg IV Q8H PRN PRN PRN Reason: NAUSEA/VOMITING Potassium Chloride (Potassium Chloride 20 Meq Tablet) 20 meq PO DAILYCM [facility] Last Admin: 06/18/20 11:06 Dose: 20 meq Documented by: Sodium Chloride (0.9% Saline Lock 10 Ml Syringe) 10 - 40 ml IV UD PRN PRN Reason: Open End PICC Flush Last Admin: 06/18/20 21:02 Dose: 10 ml Documented by: Sodium Chloride (0.9 % Nacl (Sterile) Posiflush 10 Ml) 10 - 40 ml IV UD PRN PRN Reason: Port access or dressing change Sodium Chloride (0.9% Saline Lock 10 Ml Syringe) 10 - 40 ml IV UD PRN PRN Reason: SALINE FLUSH Venlafaxine HCl (Venlafaxine Hcl 75 Mg Tablet) 37.5 mg PO BID [facility] Last Admin: 06/18/20 20:52 Dose: 37.5 mg Documented by: STROKE Vital Signs/Narrative: Vital Signs Temp Pulse Resp BP Pulse Ox 06/19/20 04:00 97.9 F 108 H 24 H 69/48 L 92 Medical Necessity - Tobacco Use Smoking Status: Current every day smoker Assessment/Plan All Active Problems (Last Reviewed 04/30/20 @ 06:[address] Zia Banks MD) Presence of permanent cardiac pacemaker (Resolved 08/30/18) History of mitral valve replacement with mechanical valve (Resolved 07/22/08) Anemia (Acute) # Acute on chronic anemia due to lower GI bleed Hb today is 8.8, after being transfused with 5 units of PRBCs bleeding hasnt recurred; per general surgery, ok to resume coumadin today #Lower GI bleed: Management as above. #Supratherapeutic INR resolved after receiving vitamin K #Hypotension: has remained stable, in the 90s and 80s systolic, which she says is her baseline. # SIRS criteria; she has remained tachycardic and tachypneic no focus of infection though, and is likely related to her severe acute on chronic anemia her metoprolol is also on hold due to her low BP. #pancytopenia; Wbc is 2.9, with platelets down to 72 and Hb of 6.9. Will monitor. #Chronic hypoxic respiratory failure due to COPD: on 2 L of oxygen at home. Titrate oxygen to maintain saturation above 90%. Breathing treatments with bronchodilators. #Chronic A. fib: On Toprol. continue to hold o.a of low BP #History of mitral valve replacement with mechanical valve in place: per general surgery, ok to resume coumadin today. #Hypothyroidism: On Synthroid #Tachybradycardia syndrome s/p pacemaker: Stable. Prophylaxis: SCDs CODE STATUS: Full code Inpatient E&M: 54111 Subs Hosp L3
[2020-06-19] MEDS: Venlafaxine HCl 75 MG Tablet 37.5 MG PO ×2 (09:39→21:29)
[2020-06-19] MEDS: Folic Acid 1 MG Tablet PO (09:39)
[2020-06-19] MEDS: Magnesium Chloride 64 MG Delay Rel.Tablet 128 MG PO (09:41)
[2020-06-19] MEDS: Cyanocobalamin 500 MCG Tablet 2500 MCG PO (09:41)
--- NOTE | 2020-06-19 09:50 | PCM.PN.SRG ---
Subjective: No further blood loss was noted. She is not complaining of any abdominal pain. Objective: Abdomen is soft and nontender. - Physical Exam Vitals/I&O's: Vital Signs Temp Pulse Resp BP Pulse Ox 97.9 F 110 H 21 H 71/46 L 92 06/19/20 04:00 06/19/20 08:00 06/19/20 08:00 06/19/20 08:00 06/19/20 08:00 Oxygen Flow Rate (L/min) 2 Oxygen Delivery Method Room Air Weight: 132 lb 6.4 oz Body Mass Index (BMI) 22.8 Finger Stick Blood Glucose 194 Intake and Output for Last 24 Hours 06/17/20 06/18/20 06/19/20 23:59 23:59 23:59 Intake Total 3505.5 / 3505.5 2009 680 / 680 Output Total 0 / 0 0 / 200 200 / 200 Balance 3505.5 / 3505.5 2009 480 / 480 Laboratory Results 06/17/20 10:55: Diff Path Review Reviewed 06/17/20 10:55: Crossmatch See Detail 06/17/20 10:55: Crossmatch See Detail 06/18/20 17:10: Hgb 9.5 L, Hct 28.9 L 06/19/20 05:20: WBC 2.9 L, RBC 2.91 L, Hgb 8.8 L, Hct 27.3 L, MCV 93.8, MCH 30.2, MCHC 32.2, RDW Std Deviation 54.0 H, RDW Coeff of Uriel 16.7 H, Plt Count 66 L, MPV 10.8, Immature Gran % (Auto) 0.700, Neut % (Auto) 81.0 H, Lymph % (Auto) 10.2 L, [place] % (Auto) 7.8, Eos % (Auto) 0.0, Baso % (Auto) 0.3, Absolute Neuts (auto) 2.4, Absolute Lymphs (auto) 0.30 L, Nucleated RBC % 0, Differential Comment COMMENT, Diff Path Review December06/19/20 05:20: Sodium 143, Potassium 3.8, Chloride 116 H, Carbon Dioxide 22.0, Anion Gap 5, BUN 19 H, Creatinine 1.08 H, Estim Creat Clear Calc 34.50, Est GFR (MDRD) Af Amer 63, Est GFR (MDRD) Non-Af 52 L, BUN/Creatinine Ratio 17.6, Glucose 112 H, Calcium 7.1 L Current Medications Albuterol Sulfate (Albuterol 2.5 Mg/3 Ml Vial.Neb.) 2.5 mg INHALATION Q4H PRN PRN Reason: Wheezing Atorvastatin Calcium (Atorvastatin Calcium 20 Mg Tablet) 20 mg PO QHS [facility] Last Admin: 06/18/20 20:52 Dose: 20 mg Documented by: Cholecalciferol (Cholecalciferol (Vit D3) 1,000 Unit (25mcg)) 1,000 unit PO DAILY [facility] Last Admin: 06/19/20 09:41 Dose: 1,000 unit Documented by: Cyanocobalamin (Cyanocobalamin 500 Mcg Tablet) 2,500 mcg PO DAILY [facility] Last Admin: 06/19/20 09:41 Dose: 2,500 mcg Documented by: Doxepin HCl (Doxepin Hcl 25 Mg Capsule) 25 mg PO QHS [facility] Last Admin: 06/18/20 20:52 Dose: 25 mg Documented by: Epoetin Andrei-epbx (Epoetin Andrei Epbx 10,000 Units/Ml) 60,000 units IV Th@1000 [facility] Last Admin: 06/18/20 20:54 Dose: 60,000 units Documented by: Ferrous Sulfate (Ferrous Sulfate 325 Mg Tablet) 650 mg PO 1700 [facility] Last Admin: 06/18/20 17:34 Dose: 650 mg Documented by: Folic Acid (Folic Acid 1 Mg Tablet) 1 mg PO DAILY@0800 [facility] Last Admin: 06/19/20 09:39 Dose: 1 mg Documented by: Heparin Sodium (Beef Lung) (Heparin Pf Lock 10 Units/Ml 50 Units/5 Ml Syringe) 50 units IV UD PRN PRN Reason: PICC Line Heparin Flush Pantoprazole Sodium 40 mg/ (Sodium Chloride) 110 mls @ 330 mls/hr IV Q12 [facility] Last Admin: 06/18/20 20:51 Dose: Not Given Documented by: Levothyroxine Sodium (Levothyroxine 100 Mcg Tablet) 100 mcg PO DAILY@0600 [facility] Last Admin: 06/19/20 06:40 Dose: 100 mcg Documented by: Magnesium Chloride (Magnesium Chloride 64 Mg Delay Rel.Tablet) 128 mg PO DAILY [facility] Last Admin: 06/19/20 09:41 Dose: 128 mg Documented by: Ondansetron HCl (Ondansetron 4 Mg/2 Ml Vial) 4 mg IV Q8H PRN PRN PRN Reason: NAUSEA/VOMITING Potassium Chloride (Potassium Chloride 20 Meq Tablet) [facility] Last Admin: 06/19/20 09:39 Dose: 20 meq Documented by: Sodium Chloride (0.9% Saline Lock 10 Ml Syringe) 10 - 40 ml IV UD PRN PRN Reason: Open End PICC Flush Last Admin: 06/18/20 21:02 Dose: 10 ml Documented by: Sodium Chloride (0.9 % Nacl (Sterile) Posiflush 10 Ml) 10 - 40 ml IV UD PRN PRN Reason: Port access or dressing change Sodium Chloride (0.9% Saline Lock 10 Ml Syringe) 10 - 40 ml IV UD PRN PRN Reason: SALINE FLUSH Venlafaxine HCl (Venlafaxine Hcl 75 Mg Tablet) 37.5 mg PO BID [facility] Last Admin: 06/19/20 09:39 Dose: 37.5 mg Documented by: Warfarin Sodium (Jantoven 2 Mg Tablet) 2 mg PO DAILY [facility] Warfarin Sodium (Warfarin 1 Mg Tablet) 0.5 mg PO DAILY [facility] Medical Necessity - Tobacco Use Smoking Status: Current every day smoker Assessment/Plan All Active Problems (Last Reviewed 04/30/20 @ 06:[address] Zia Banks MD) Presence of permanent cardiac pacemaker (Resolved 08/30/18) History of mitral valve replacement with mechanical valve (Resolved 07/22/08) Anemia (Acute) Patient is going to be restarted on her Coumadin today. Hopefully we will not see any further bleeding and I would anticipate this will be provided we do not get her supratherapeutic on her INR. Inpatient E&M: 03074 Subs Hosp L2
[2020-06-19] MEDS: Ferrous Sulfate 325 MG Tablet 650 MG PO (17:08)
[2020-06-19] MEDS: Warfarin 0.5 MG Tablet PO (17:09)
[2020-06-19] MEDS: Doxepin Hcl 25 MG Capsule PO (21:29)
[2020-06-19] MEDS: Atorvastatin Calcium 20 MG Tablet PO (21:29)
[2020-06-20] VITALS (16 sets, daily range): BP systolic 65–86; BP diastolic 38–67; PULSE 99–110; RESP 16–18; TEMP 36.6–37.3; O2SAT 93–96
[2020-06-20] MEDS: Levothyroxine 100 MCG Tablet PO (05:08)
[2020-06-20 05:40] LABS: Absolute Lymphocyte Count 0.35 X10^3/uL (0.83-4.51); Absolute Neutrophil Count 2.1 X10^3/uL (2.0-7.7); Hemoglobin 8.5 g/dL (12.0-15.0); Lymphocyte # 0.35 X10^3/ul (4.0); Mean Corp Hgb Conc 31.5 g/dL (32-36); Mean Corpuscular Hgb 30.2 pg (27.0-32.0); Mean Corpuscular Volume 96.1 fL (81-99); Mean Platelet Vol. 11.7 fl (6.2-12.0); Monocyte# 0.27 X10^3/uL; NRBC Flagged by Analyzer 0 % (0-5); Neutrophil # 2.05 X10^3/uL (2.7-7.7); Neutrophil % 76.3 % (47-70); POSITIVE COUNT YES; POSITIVE DIFFERENTIAL YES; Platelet Count 62 K/mm3 (150-450); RBC Distribution Width CV 16.9 % (11.6-14.6); RBC Distribution Width SD 57.3 fl (35.1-43.9); Red Blood Count 2.81 M/mm3 (4.2-5.4); White Blood Count 2.7 K/mm3 (4.4-11.0)
[2020-06-20 05:48] LABS: Differential Indicated SCAN CRITERIA MET
[2020-06-20 06:01] LABS: Anion Gap 4 (5-15); BUN 17 mg/dL (7-18); BUN/Creat Ratio 15.6 RATIO (10-20); Calcium,Total 7.4 mg/dL (8.5-10.1); Chloride 116 mmol/L (98-107); Creatinine, Serum 1.09 mg/dL (0.55-1.02); EST Glomerular Filtration Rate 52 mL/min (>60); Est Glom Filt Rate - Afr Amer 63 mL/min (>60); Estimated Creatinine Clearance 34.19 ml/min; Glucose 106 mg/dL (74-106); Potassium 4.1 mmol/L (3.5-5.1); Sodium Level 142 mmol/L (136-145)
[2020-06-20 06:15] LABS: Differential Comment SCANNED; Platelet Estimate MOD DEC (ADEQ)
[2020-06-20] MEDS: Folic Acid 1 MG Tablet PO (08:07)
[2020-06-20 08:38] LABS: International Normalized Ratio 1.4
[2020-06-20] MEDS: Magnesium Chloride 64 MG Delay Rel.Tablet 128 MG PO (10:08)
--- NOTE | 2020-06-20 10:50 | PCM.PN.HOSP ---
Subjective: Patient seen and examined. She had an uneventful night and had no complaints. Review of signs otherwise negative. Labs and vitals reviewed. She has not had any more rectal bleeding. Vitals/I&O's: Vital Signs Temp Pulse Resp BP Pulse Ox 98.4 F 110 H 16 84/67 L 95 06/20/20 09:15 06/20/20 09:15 06/20/20 09:15 06/20/20 09:15 06/20/20 09:15 Oxygen Flow Rate (L/min) 2 Oxygen Delivery Method Nasal Cannula Weight: 132 lb 15.02 oz Body Mass Index (BMI) 22.8 Finger Stick Blood Glucose 194 Intake and Output for Last 24 Hours 06/18/20 06/19/20 06/20/20 23:59 23:59 23:59 Intake Total 2009 1500 / 1720 430 / 430 Output Total 0 / 200 550 / 550 Balance 2009 950 / 1170 430 / 430 General: Alert, Oriented x3, Cooperative, No apparent distress HEENT: Atraumatic, PERRLA, EOMI, Normocephalic, Oral: Dry Mucosa Neck: Supple, No JVD, Negative Carotid Bruits Lungs: Clear to auscultation, Normal air movement, No rhonchi, No wheeze Cardiovascular: Regular rate, Regular Rhythm, Normal S1, Normal S2, No murmurs Abdomen: Bowel Sounds Present, Soft, Non Tender, Non-Distended, No Hepato-splenomegaly Extremities: No clubbing, No cyanosis, No edema, Capillary Refill Less than 3 Seconds Skin: No rashes, No breakdown Musculoskeletal: No Tenderness to Palpation of Joints or Extremities Lymphatic: No Cervical, Supraclavicular, or Inguinal Adenopathy Neurological: Cranial nerves II-XII grossly intact, Motor Exam 5/5 strength throughout Psych/Mental Status: Normal Affect, Appropriate, Alert and oriented to time, place, person, mood and affect Laboratory Results 06/20/20 05:00: WBC 2.7 L, RBC 2.81 L, Hgb 8.5 L, Hct 27.0 L, MCV 96.1, MCH 30.2, MCHC 31.5 L, RDW Std Deviation 57.3 H, RDW Coeff of Uriel 16.9 H, Plt Count 62 L, MPV 11.7, Immature Gran % (Auto) 0.700, Neut % (Auto) 76.3 H, Lymph % (Auto) 13.0 L, [place] % (Auto) 10.0, Eos % (Auto) 0.0, Baso % (Auto) 0.0, Absolute Neuts (auto) 2.1, Absolute Lymphs (auto) 0.35 L, Nucleated RBC % 0, Differential Comment SCANNED, Diff Path Review December, Platelet Estimate MOD 06/20/20 05:00: Sodium 142, Potassium 4.1, Chloride 116 H, Carbon Dioxide 22.0, Anion Gap 4 L, BUN 17, Creatinine 1.09 H, Estim Creat Clear Calc 34.19, Est GFR (MDRD) Af Amer 63, Est GFR (MDRD) Non-Af 52 L, BUN/Creatinine Ratio 15.6, Glucose 106, Calcium 7.4 L 06/20/20 08:18: PT 17.0 H, INR 1.4 Current Medications Albuterol Sulfate (Albuterol 2.5 Mg/3 Ml Vial.Neb.) 2.5 mg INHALATION Q4H PRN PRN Reason: Wheezing Atorvastatin Calcium (Atorvastatin Calcium 20 Mg Tablet) 20 mg PO QHS [facility] Last Admin: 06/19/20 21:29 Dose: 20 mg Documented by: Cholecalciferol (Cholecalciferol (Vit D3) 1,000 Unit (25mcg)) 1,000 unit PO DAILY [facility] Last Admin: 06/19/20 09:41 Dose: 1,000 unit Documented by: Cyanocobalamin (Cyanocobalamin 500 Mcg Tablet) 2,500 mcg PO DAILY [facility] Last Admin: 06/19/20 09:41 Dose: 2,500 mcg Documented by: Doxepin HCl (Doxepin Hcl 25 Mg Capsule) 25 mg PO QHS [facility] Last Admin: 06/19/20 21:29 Dose: 25 mg Documented by: Epoetin Andrei-epbx (Epoetin Andrei Epbx 10,000 Units/Ml) 60,000 units IV Th@1000 [facility] Last Admin: 06/18/20 20:54 Dose: 60,000 units Documented by: Ferrous Sulfate (Ferrous Sulfate 325 Mg Tablet) 650 mg PO 1700 [facility] Last Admin: 06/19/20 17:08 Dose: 650 mg Documented by: Folic Acid (Folic Acid 1 Mg Tablet) 1 mg PO DAILY@0800 [facility] Last Admin: 06/20/20 08:07 Dose: 1 mg Documented by: Heparin Sodium (Beef Lung) (Heparin Pf Lock 10 Units/Ml 50 Units/5 Ml Syringe) 50 units IV UD PRN PRN Reason: PICC Line Heparin Flush Pantoprazole Sodium 40 mg/ (Sodium Chloride) 110 mls @ 330 mls/hr IV Q12 [facility] Last Infusion: 06/20/20 10:38 Dose: Infused Documented by: Levothyroxine Sodium (Levothyroxine 100 Mcg Tablet) 100 mcg PO DAILY@0600 [facility] Last Admin: 06/20/20 05:08 Dose: 100 mcg Documented by: Magnesium Chloride (Magnesium Chloride 64 Mg Delay Rel.Tablet) 128 mg PO DAILY [facility] Last Admin: 06/20/20 10:08 Dose: 128 mg Documented by: Ondansetron HCl (Ondansetron 4 Mg/2 Ml Vial) 4 mg IV Q8H PRN PRN PRN Reason: NAUSEA/VOMITING Potassium Chloride (Potassium Chloride 20 Meq Tablet) 20 meq PO DAILYCM [facility] Last Admin: 06/20/20 08:11 Dose: 20 meq Documented by: Sodium Chloride (0.9% Saline Lock 10 Ml Syringe) 10 - 40 ml IV UD PRN PRN Reason: Open End PICC Flush Last Admin: 06/18/20 21:02 Dose: 10 ml Documented by: Sodium Chloride (0.9 % Nacl (Sterile) Posiflush 10 Ml) 10 - 40 ml IV UD PRN PRN Reason: Port access or dressing change Sodium Chloride (0.9% Saline Lock 10 Ml Syringe) 10 - 40 ml IV UD PRN PRN Reason: SALINE FLUSH Venlafaxine HCl (Venlafaxine Hcl 75 Mg Tablet) 37.5 mg PO BID [facility] Last Admin: 06/19/20 21:29 Dose: 37.5 mg Documented by: Warfarin Sodium (Warfarin 1 Mg Tablet) 1 mg PO DAILY@1700 [facility] Last Admin: 06/19/20 17:08 Dose: 1 mg Documented by: Warfarin Sodium (Warfarin 0.5 Mg Tablet) 0.5 mg PO DAILY@1700 [facility] Last Admin: 06/19/20 17:09 Dose: 0.5 mg Documented by: STROKE Vital Signs/Narrative: Vital Signs Temp Pulse Resp BP Pulse Ox 06/20/20 09:15 98.4 F 110 H 16 84/67 L 95 06/20/20 07:06 109 H Medical Necessity - Tobacco Use Smoking Status: Current every day smoker Assessment/Plan All Active Problems (Last Reviewed 04/30/20 @ 06:[address] Zia Banks MD) Presence of permanent cardiac pacemaker (Resolved 08/30/18) History of mitral valve replacement with mechanical valve (Resolved 07/22/08) Anemia (Acute) # Acute on chronic anemia due to lower GI bleed Bleeding has stopped. Hemoglobin today is 8.5. S/p transfusion of 4 units of packed red blood cells. Coumadin has been resumed. #Lower GI bleed: Management as above. #Supratherapeutic INR resolved after receiving vitamin K INR today is 1.4. #Hypotension: has remained stable, in the 90s and 80s systolic, which she says is her baseline. # #pancytopenia; Wbc is 2.9, with platelets down to 72 and Hb of 6.9. Will monitor. #Chronic hypoxic respiratory failure due to COPD: on 2 L of oxygen at home. Titrate oxygen to maintain saturation above 90%. Breathing treatments with bronchodilators. #Chronic A. fib: On metoprolol 25mg bid at home. Per discussion with her forms examiner, Dr Mendoza on phone, metoprolol decreased to 12.5mg bid.. coumadin resumed. INR today is 1.4 #History of mitral valve replacement with mechanical valve in place: coumadin resumed. INR today is 1.4. on 1.5mg of coumadin daily. I am reticent about increasing the dose o/a of history of rectal bleeding. Will monitor INR. #Hypothyroidism: On Synthroid #Tachybradycardia syndrome s/p pacemaker: Stable. Prophylaxis: coumadin resumed. CODE STATUS: Full code Inpatient E&M: 45860 Subs Hosp L2
[2020-06-20] MEDS: Venlafaxine HCl 75 MG Tablet 37.5 MG PO ×2 (11:35→21:50)
[2020-06-20] MEDS: Cyanocobalamin 500 MCG Tablet 2500 MCG PO (11:35)
[2020-06-20] MEDS: Metoprolol Tartrate 25 MG Tablet 12.5 MG PO (12:04)
[2020-06-20] MEDS: Ferrous Sulfate 325 MG Tablet 650 MG PO (16:36)
[2020-06-20] MEDS: Warfarin 0.5 MG Tablet PO (16:36)
[2020-06-20] MEDS: Doxepin Hcl 25 MG Capsule PO (21:50)
[2020-06-20] MEDS: Atorvastatin Calcium 20 MG Tablet PO (21:50)
[2020-06-21] VITALS (14 sets, daily range): BP systolic 70–112; BP diastolic 40–53; PULSE 101–112; RESP 16–24; TEMP 36.3–37.3; O2SAT 92–97
[2020-06-21 06:00] LABS: Hematocrit 26.4 % (37-47); Hemoglobin 8.2 g/dL (12.0-15.0); Mean Corp Hgb Conc 31.1 g/dL (32-36); Mean Corpuscular Hgb 29.8 pg (27.0-32.0); Mean Platelet Vol. 11.1 fl (6.2-12.0); POSITIVE COUNT YES; Platelet Count 66 K/mm3 (150-450); RBC Distribution Width CV 16.7 % (11.6-14.6); RBC Distribution Width SD 57.3 fl (35.1-43.9); Red Blood Count 2.75 M/mm3 (4.2-5.4); White Blood Count 2.8 K/mm3 (4.4-11.0)
[2020-06-21 06:10] LABS: International Normalized Ratio 1.8
[2020-06-21] MEDS: Levothyroxine 100 MCG Tablet PO (06:15)
[2020-06-21 06:21] LABS: Anion Gap 4 (5-15); BUN 13 mg/dL (7-18); BUN/Creat Ratio 11.8 RATIO (10-20); Calcium,Total 7.3 mg/dL (8.5-10.1); Chloride 117 mmol/L (98-107); EST Glomerular Filtration Rate 51 mL/min (>60); Est Glom Filt Rate - Afr Amer 62 mL/min (>60); Estimated Creatinine Clearance 33.87 ml/min; Glucose 120 mg/dL (74-106); Potassium 3.9 mmol/L (3.5-5.1); Sodium Level 142 mmol/L (136-145)
--- NOTE | 2020-06-21 07:56 | PCM.PN.HOSP ---
Vitals/I&O's: Vital Signs Temp Pulse Resp BP Pulse Ox 98.7 F 109 H 18 87/46 L 96 06/21/20 06:25 06/21/20 06:25 06/21/20 06:25 06/21/20 06:25 06/21/20 06:25 Oxygen Flow Rate (L/min) 2 Oxygen Delivery Method Nasal Cannula Weight: 60.7 kg Body Mass Index (BMI) 22.8 Finger Stick Blood Glucose 194 Intake and Output for Last 24 Hours 06/19/20 06/20/20 06/21/20 23:59 23:59 23:59 Intake Total 1500 / 1720 1140 / 1190 270 / 270 Output Total 550 / 550 Balance 950 / 1170 1140 / 1190 270 / 270 Laboratory Results 06/20/20 08:18: PT 17.0 H, INR 1.4 06/21/20 05:35: WBC 2.8 L, RBC 2.75 L, Hgb 8.2 L, Hct 26.4 L, MCV 96.0, MCH 29.8, MCHC 31.1 L, RDW Std Deviation 57.3 H, RDW Coeff of Uriel 16.7 H, Plt Count 66 L, MPV 11.1 06/21/20 05:35: Sodium 142, Potassium 3.9, Chloride 117 H, Carbon Dioxide 21.0, Anion Gap 4 L, BUN 13, Creatinine 1.10 H, Estim Creat Clear Calc 33.87, Est GFR (MDRD) Af Amer 62, Est GFR (MDRD) Non-Af 51 L, BUN/Creatinine Ratio 11.8, Glucose 120 H, Calcium 7.3 L 06/21/20 05:35: PT 20.0 H, INR 1.8 Current Medications Albuterol Sulfate (Albuterol 2.5 Mg/3 Ml Vial.Neb.) 2.5 mg INHALATION Q4H PRN PRN Reason: Wheezing Atorvastatin Calcium (Atorvastatin Calcium 20 Mg Tablet) 20 mg PO QHS [facility] Last Admin: 06/20/20 21:50 Dose: 20 mg Documented by: Cholecalciferol (Cholecalciferol (Vit D3) 1,000 Unit (25mcg)) 1,000 unit PO DAILY [facility] Last Admin: 06/20/20 11:35 Dose: 1,000 unit Documented by: Cyanocobalamin (Cyanocobalamin 500 Mcg Tablet) 2,500 mcg PO DAILY [facility] Last Admin: 06/20/20 11:35 Dose: 2,500 mcg Documented by: Doxepin HCl (Doxepin Hcl 25 Mg Capsule) 25 mg PO QHS [facility] Last Admin: 06/20/20 21:50 Dose: 25 mg Documented by: Epoetin Andrei-epbx (Epoetin Andrei Epbx 10,000 Units/Ml) 60,000 units IV Th@1000 [facility] Last Admin: 06/18/20 20:54 Dose: 60,000 units Documented by: Ferrous Sulfate (Ferrous Sulfate 325 Mg Tablet) 650 mg PO 1700 [facility] Last Admin: 06/20/20 16:36 Dose: 650 mg Documented by: Folic Acid (Folic Acid 1 Mg Tablet) 1 mg PO DAILY@0800 [facility] Last Admin: 06/20/20 08:07 Dose: 1 mg Documented by: Heparin Sodium (Beef Lung) (Heparin Pf Lock 10 Units/Ml 50 Units/5 Ml Syringe) 50 units IV UD PRN PRN Reason: PICC Line Heparin Flush Pantoprazole Sodium 40 mg/ (Sodium Chloride) 110 mls @ 330 mls/hr IV Q12 [facility] Last Infusion: 06/20/20 22:20 Dose: Infused Documented by: Levothyroxine Sodium (Levothyroxine 100 Mcg Tablet) 100 mcg PO DAILY@0600 [facility] Last Admin: 06/21/20 06:15 Dose: 100 mcg Documented by: Magnesium Chloride (Magnesium Chloride 64 Mg Delay Rel.Tablet) 128 mg PO DAILY [facility] Last Admin: 06/20/20 10:08 Dose: 128 mg Documented by: Metoprolol Tartrate (Metoprolol Tartrate 25 Mg Tablet) 12.5 mg PO BID [facility] Last Admin: 06/20/20 22:02 Dose: Not Given Documented by: Ondansetron HCl (Ondansetron 4 Mg/2 Ml Vial) 4 mg IV Q8H PRN PRN PRN Reason: NAUSEA/VOMITING Potassium Chloride (Potassium Chloride 20 Meq Tablet) 20 meq PO DAILYCM [facility] Last Admin: 06/20/20 08:11 Dose: 20 meq Documented by: Sodium Chloride (0.9% Saline Lock 10 Ml Syringe) 10 - 40 ml IV UD PRN PRN Reason: Open End PICC Flush Last Admin: 06/18/20 21:02 Dose: 10 ml Documented by: Sodium Chloride (0.9 % Nacl (Sterile) Posiflush 10 Ml) 10 - 40 ml IV UD PRN PRN Reason: Port access or dressing change Sodium Chloride (0.9% Saline Lock 10 Ml Syringe) 10 - 40 ml IV UD PRN PRN Reason: SALINE FLUSH Venlafaxine HCl (Venlafaxine Hcl 75 Mg Tablet) 37.5 mg PO BID [facility] Last Admin: 06/20/20 21:50 Dose: 37.5 mg Documented by: Warfarin Sodium (Warfarin 1 Mg Tablet) 1 mg PO DAILY@1700 [facility] Last Admin: 06/20/20 16:36 Dose: 1 mg Documented by: Warfarin Sodium (Warfarin 0.5 Mg Tablet) 0.5 mg PO DAILY@1700 [facility] Last Admin: 06/20/20 16:36 Dose: 0.5 mg Documented by: STROKE Vital Signs/Narrative: Vital Signs Temp Pulse Resp BP Pulse Ox 06/21/20 06:25 98.7 F 109 H 18 87/46 L 96 06/21/20 04:00 98.3 F 108 H 16 81/47 L 96 Medical Necessity - Tobacco Use Smoking Status: Current every day smoker Assessment/Plan All Active Problems (Last Reviewed 04/30/20 @ 06:[address] Zia Banks MD) Presence of permanent cardiac pacemaker (Resolved 08/30/18) History of mitral valve replacement with mechanical valve (Resolved 07/22/08) Anemia (Acute)
[2020-06-21] MEDS: Cyanocobalamin 500 MCG Tablet 2500 MCG PO (09:01)
[2020-06-21] MEDS: Venlafaxine HCl 75 MG Tablet 37.5 MG PO (09:03)
[2020-06-21] MEDS: Folic Acid 1 MG Tablet PO (09:07)
[2020-06-21] MEDS: Magnesium Chloride 64 MG Delay Rel.Tablet 128 MG PO (09:07)
[2020-06-21] MEDS: 0.9% Saline Lock 10 ML Syringe IV (10:49)
[2020-06-21] MEDS: Pantoprazole Sodium 40 MG Tablet PO (12:17)
[2020-06-21] MEDS: Enoxaparin 60 MG/0.6 ML Syringe SC (12:17)
--- NOTE | 2020-06-21 14:09 | PCM.DC ---
- Discharge Diagnoses Current Active Problems: Rectal bleeding Acute blood loss anemia Reason(s) for Visit for Discharge Instructions: Rectal bleeding You will use the following diet at home:: Cardiac Your food should be the consistency of: Regular Your liquids should be the consistency of: Regular/Thin Discharge Activity: Return to Normal Activity Additional Instructions: Continue to take your Coumadin and Lovenox. You should have your INR checked within 3 days. When your INR is therapeutic between 2.5 and 3.5, do not take the Lovenox anymore. You should follow-up with Dr. Thomas closely in the outpatient as scheduled. You should also follow-up with your primary care doctor and also with cardiology as scheduled. Watch out for bright red bleeding per rectum. Follow-up with Dr. Daily within a week to evaluate and have your colonoscopy scheduled. Take note of changes to your medications. Allergies/Adverse Reactions: Allergies amiodarone Adverse Reaction (Verified 06/17/20 10:50) vomiting, poor balance, dizziness digoxin Adverse Reaction (Verified 06/17/20 10:50) nausea, dry heaves lorazepam [From Ativan] Adverse Reaction (Verified 06/17/20 10:50) Unknown meloxicam [From Mobic] Adverse Reaction (Verified 06/17/20 10:50) Unknown nortriptyline HCl [From Pamelor] Adverse Reaction (Verified 06/17/20 10:50) Unknown zolpidem tartrate [From Ambien] Adverse Reaction (Verified 06/17/20 10:50) Unknown Medications to take at Discharge Atorvastatin Calcium [Lipitor] 20 mg PO QHS 05/22/13 Levothyroxine [Synthroid] 100 mcg PO DAILY 04/01/15 Ferrous Sulfate 650 mg PO QHS 04/02/15 Folic Acid 1 mg PO DAILY@0800 04/30/15 Cyanocobalamin (Vitamin B-12) [Vitamin B12] 2,500 mcg PO DAILY 06/10/16 Magnesium 250 mg PO DAILY 05/24/17 Cholecalciferol (Vitamin D3) [Vitamin D3] 1,000 unit PO DAILY 04/07/19 Venlafaxine HCl 37.5 mg PO BID 04/07/19 albuterol sulfate 90 mcg/actuation aerosol inhaler 2 puff INHALATION Q6H PRN PRN #18 g 11/26/19 Potassium Chloride [K-Dur] 20 meq PO DAILY 01/24/20 doxepin 25 mg capsule 25 mg PO QHS 04/01/20 Darbepoetin Andrei in Polysorbat [Aranesp] 0.4 ml IM TH 04/29/20 Hydrocodone Bitartrate 0.5 tab PO DAILY PRN PRN 04/29/20 Warfarin Sodium 0.5 mg PO DAILY 04/29/20 Warfarin [Coumadin] 2 mg PO DAILY 04/29/20 Enoxaparin [Lovenox] 60 mg SC Q12 7 Days #14 syringe 06/21/20 Metoprolol Tartrate [Lopressor (beta lion)] 12.5 mg PO BID 30 Days #60 tab 06/21/20 Pantoprazole Sodium [Protonix] 40 mg PO BID 30 Days #60 tab 06/21/20 The following prescriptions were given: Enoxaparin [Lovenox] 60 mg SC Q12 7 Days #14 syringe Transmission Status: Pending to [facility] Pantoprazole Sodium [Protonix] 40 mg PO BID 30 Days #60 tab Transmission Status: Pending to [facility] Primary Care Physician: Kodak Muñoz MD [Primary Care Provider] - Please follow up with your Primary Care Physician in: within 2 weeks Test Results: Test results from this visit will be discussed in further detail at your follow-up appointment, if applicable. Please Follow Up With: Edd Thomas MD When: as scheduled within 1 week Please Follow Up With: Eddie Mendoza MD When: in 2 weeks Please Follow Up With: Sera Hooks MD When: in 1 week Proposed Discharge Date: 06/21/20
--- NOTE | 2020-06-21 14:58 | CASEMGMT ---
Pt to be sent home on Lovenox at discharge and med e-scribed to [facility] previously. Call to [facility] and per tech, pt's insurance does not cover the Lovenox at this time, stating it's excluded from the plan but states they applied a coupon card and pt's cost will be $94. Pt updated and states no concerns with covering cost at this time. Therapy states no therapy recommended at this time. Pt voices no further questions/concerns/needs at this time. Reina CAMPOS CM
--- NOTE | 2020-06-21 17:56 | DS.PCM_ITS ---
Discharge Date and Diagnosis Date of Admission: 06/17/20 Date of Discharge: 06/21/20 - Primary Discharge Diagnosis Acute Problems: Acute on chronic acute blood loss anemia, symptomatic Acute lower GI bleed likely secondary to hemorrhoids Hypotension Supratherapeutic INR - Secondary Discharge Diagnosis Chronic Problems: Chronic Problems (Last Reviewed 04/30/20 @ 06:[address] 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 Her stools had initially been dark but later on were bright red. Rectum. This was associated with lightheadedness and dizziness. Patient has had multiple transfusions in the outpatient with oncology. She also receives Aranesp. She had a bleeding scan in April which was negative. Her vitals in the ED showed blood pressure 53/40, heart rate was 100, hemoglobin was 4.4, and creatinine was 1.39. Patient was admitted to the progressive care unit and transfused 4 units of blood. Her INR was 10.2. Patient had her Coumadin held, IV vitamin K was also given. Her INR improved and she was monitored further. No more bleeding was seen during this hospital stay. Patient had initially refused work-up for the GI bleed. After further discussion, she agreed to follow-up with general surgery in the outpatient for repeat colonoscopy as her last colonoscopy was about 3 years ago. On the day of discharge, patient was resumed on Lovenox and Coumadin bridge as her INR was 1.8. She knows that she has a goal of 2.5-3.5. She was also educated on monitoring for further bleeding as she gets closer to her goal INR. She would repeat her INR within 3 days. Subjective: On the day of discharge, patient was seen and examined. She denied any rectal bleeding. Denied any dizziness or palpitation. She was ambulated and did not qualify for oxygen. She wears 2 L of oxygen at night. Objective: Physical exam: General: Alert, Oriented x3, Cooperative, No apparent distress HEENT: Atraumatic, PERRLA, EOMI, Normocephalic, Oral: Dry Mucosa Neck: Supple, No JVD, Negative Carotid Bruits Lungs: Clear to auscultation, Normal air movement, No rhonchi, No wheeze Cardiovascular: Regular rate, Regular Rhythm, Normal S1, Normal S2, metallic click Abdomen: Bowel Sounds Present, Soft, Non Tender, Non-Distended, No Hepato- splenomegaly Extremities: No clubbing, No cyanosis, No edema, Capillary Refill Less than 3 Seconds Skin: No rashes, No breakdown Musculoskeletal: No Tenderness to Palpation of Joints or Extremities Lymphatic: No Cervical, Supraclavicular, or Inguinal Adenopathy Neurological: Cranial nerves II-XII grossly intact, Motor Exam 5/5 strength throughout Psych/Mental Status: Normal Affect, Appropriate, Alert and oriented to time, place, person, mood and affect - Physical Exam Vitals/I&O's: Vital Signs Temp Pulse Resp BP Pulse Ox 97.4 F L 110 H 20 H 91/50 L 97 06/21/20 15:51 06/21/20 15:51 06/21/20 15:51 06/21/20 15:51 06/21/20 15:51 Oxygen Flow Rate (L/min) 2 Oxygen Delivery Method Room Air Weight: 60.7 kg Body Mass Index (BMI) 22.8 Finger Stick Blood Glucose 194 Intake and Output for Last 24 Hours 06/19/20 06/20/20 06/21/20 23:59 23:59 23:59 Intake Total 1500 / 1720 1140 / 1190 1070 / 1070 Output Total 550 / 550 Balance 950 / 1170 1140 / 1190 1070 / 1070 Laboratory Results 06/21/20 05:35: WBC 2.8 L, RBC 2.75 L, Hgb 8.2 L, Hct 26.4 L, MCV 96.0, MCH 29.8, MCHC 31.1 L, RDW Std Deviation 57.3 H, RDW Coeff of Uriel 16.7 H, Plt Count 66 L, MPV 11.1 06/21/20 05:35: Sodium 142, Potassium 3.9, Chloride 117 H, Carbon Dioxide 21.0, Anion Gap 4 L, BUN 13, Creatinine 1.10 H, Estim Creat Clear Calc 33.87, Est GFR (MDRD) Af Amer 62, Est GFR (MDRD) Non-Af 51 L, BUN/Creatinine Ratio 11.8, Glucose 120 H, Calcium 7.3 L 06/21/20 05:35: PT 20.0 H, INR 1.8 Discharge Diet: Low fat/ Low Cholesterol, 2000 mg Sodium Diet Discharge Activity: Return to Normal Activity Home Medications: Medications to take at Discharge Atorvastatin Calcium [Lipitor] 20 mg PO QHS 05/22/13 Levothyroxine [Synthroid] 100 mcg PO DAILY 04/01/15 Ferrous Sulfate 650 mg PO QHS 04/02/15 Folic Acid 1 mg PO DAILY@0800 04/30/15 Cyanocobalamin (Vitamin B-12) [Vitamin B12] 2,500 mcg PO DAILY 06/10/16 Magnesium 250 mg PO DAILY 05/24/17 Cholecalciferol (Vitamin D3) [Vitamin D3] 1,000 unit PO DAILY 04/07/19 Venlafaxine HCl 37.5 mg PO BID 04/07/19 albuterol sulfate 90 mcg/actuation aerosol inhaler 2 puff INHALATION Q6H PRN PRN #18 g 11/26/19 Potassium Chloride [K-Dur] 20 meq PO DAILY 01/24/20 doxepin 25 mg capsule 25 mg PO QHS 04/01/20 Darbepoetin Andrei in Polysorbat [Aranesp] 0.4 ml IM TH 04/29/20 Hydrocodone Bitartrate 0.5 tab PO DAILY PRN PRN 04/29/20 Warfarin Sodium 0.5 mg PO DAILY 04/29/20 Warfarin [Coumadin] 2 mg PO DAILY 04/29/20 Enoxaparin [Lovenox] 60 mg SC Q12 7 Days #14 syringe 06/21/20 Metoprolol Tartrate [Lopressor (beta lion)] 12.5 mg PO BID 30 Days #60 tab 06/21/20 Pantoprazole Sodium [Protonix] 40 mg PO BID 30 Days #60 tab 06/21/20 Following Prescriptions Were Given to Patient: Metoprolol Tartrate [Lopressor (beta lion)] 12.5 mg PO BID 30 Days #60 tab Transmission Status: [facility] Enoxaparin [Lovenox] 60 mg SC Q12 7 Days #14 syringe Transmission Status: Received by [facility] Pantoprazole Sodium [Protonix] 40 mg PO BID 30 Days #60 tab Transmission Status: [facility] Primary Care Physician: Kodak Muñoz MD [Primary Care Provider] - Please follow up with your Primary Care Physician in: within 2 weeks Please Follow Up With: Edd Thomas MD When: as scheduled within 1 week Please Follow Up With: Eddie Mendoza MD When: in 2 weeks Please Follow Up With: Sera Hooks MD When: in 1 week Please Follow Up With: Kodak Muñoz Disposition: Home Minutes spent on discharge:: 45 Patient Condition:: Fair Medical Necessity - Tobacco Use Smoking Status: Current every day smoker Meaningful Use Info Meaningful Use Diagnoses (Choose all that apply): None applicable Inpatient E&M: 45449 Disch Hosp
[2020-06-22 09:37] LABS: Pathologist Review Reviewed
[2020-06-22 09:37] LABS: Pathologist Review Reviewed
[2020-06-22 09:37] LABS: Pathologist Review Reviewed
--- NOTE | 2020-06-22 14:39 | CASEMGMT ---
ANDRES ANGUIANO Discharge Follow-up Phone Call: ABRIL: Maddison Strata: 4 Call Date: 06/22/20 Discharge Date: 06/21/20 Time of Call: [id number] Duration: 1 min Admitting Diagnosis: Lower GI Bleed ANDRES ANGUIANO attempted to complete follow-up phone call after recent hospitalization. No answer, voice message left with return contact information. Patient has follow-up appts scheduled.
== END 2020-06-21 15:42 | disposition home or self-care (01) | DRG 812 ==
LOC: ED 11:47 → ICU 06-18 06:57 → PCU 06-19 15:19
PROVIDERS: Family Medicine; Internal Medicine Critical Care Medicine; Admitting Provider Student in an Organized Health Care Education/Training Program; Emergency Provider Emergency Medicine; PCP Internal Medicine; Visit Provider Internal Medicine
DX: D62 Acute posthemorrhagic anemia (principal); I48.20 Chronic atrial fibrillation, unspecified; J96.11 Chronic respiratory failure with hypoxia; D61.818 Other pancytopenia; K64.9 Unspecified hemorrhoids; Z79.01 Long term (current) use of 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; E03.9 Hypothyroidism, unspecified; J44.9 Chronic obstructive pulmonary disease, unspecified; Z95.2 Presence of prosthetic heart valve; Z95.0 Presence of cardiac pacemaker; Z66 Do not resuscitate; I36.1 Nonrheumatic tricuspid (valve) insufficiency; E78.5 Hyperlipidemia, unspecified; Z79.899 Other long term (current) drug therapy; Z79.890 Hormone replacement therapy; F17.200 Nicotine dependence, unspecified, uncomplicated
CPT/HCPCS: 36415; 80048; 85014; 85018; 85025; 85027; 85610; 86850; 86900; 86901; 86920; 86922; 97116; 97162; 97166; 97802; 99285; 99406; J7030; J7040; P9016; A4216; J3490; Q5106

== ENCOUNTER → 2020-06-25 08:23 | Outpatient (CLI) | payer OTHER, SELFPAY ==
[2020-06-17 14:05] VITALS: BMI 22.8
[2020-06-25] VITALS (8 sets, daily range): BP systolic 74–93; BP diastolic 31–56; PULSE 92–105; RESP 16; TEMP 36.1–36.4; O2SAT 93–96; BMI 24.5
[2020-06-25] MEDS: 0.9% NaCl Peripheral Flush Adult/Peds IV (08:38)
[2020-06-25] MEDS: Acetaminophen 325 MG Tablet 650 MG PO (08:39)
== END ==
PROVIDERS: PCP Internal Medicine; Referring Provider Internal Medicine Hematology & Oncology; Visit Provider Internal Medicine Hematology & Oncology
DX: Z51.89 Encounter for other specified aftercare (principal); N18.9 Chronic kidney disease, unspecified; K92.2 Gastrointestinal hemorrhage, unspecified
CPT/HCPCS: 36430; 86850; 86900; 86901; 86902; 86920; 86922; J7040; P9016; A4216

== ENCOUNTER → 2020-07-06 07:56 | Outpatient (CLI) | payer OTHER, SELFPAY ==
[2020-06-28 08:50] VITALS: BMI 23.3
[2020-07-06] VITALS (9 sets, daily range): BP systolic 55–91; BP diastolic 34–52; PULSE 80–108; RESP 16; TEMP 36.2–36.8; O2SAT 92–100; BMI 23.3
[2020-07-06] MEDS: Acetaminophen 325 MG Tablet 650 MG PO (08:10)
== END ==
PROVIDERS: PCP Internal Medicine; Referring Provider Internal Medicine Hematology & Oncology; Visit Provider Internal Medicine Hematology & Oncology
DX: K92.2 Gastrointestinal hemorrhage, unspecified (principal); N18.9 Chronic kidney disease, unspecified
CPT/HCPCS: 36430; 86850; 86900; 86901; 86902; 86920; 86922; P9016

== ENCOUNTER 2020-07-12 10:55 | Outpatient (RCR) | payer OTHER, SELFPAY ==
[2020-06-11 08:59] VITALS: BMI 22.8
[2020-06-17 14:05] VITALS: BMI 22.8
[2020-06-23 10:31] LABS: International Normalized Ratio 2.1; Prothrombin Time (Protime)PT. 23.2 SECONDS (11.7-14.9)
[2020-06-28 10:14] LABS: Prothrombin Time (Protime)PT. 35.3 SECONDS (11.7-14.9)
[2020-06-28 10:26] LABS: International Normalized Ratio 3.6
[2020-07-05 14:06] LABS: Prothrombin Time (Protime)PT. 36.5 SECONDS (11.7-14.9)
[2020-07-05 14:15] LABS: International Normalized Ratio 3.7
[2020-07-07 12:00] LABS: Prothrombin Time (Protime)PT. 36.6 SECONDS (11.7-14.9)
[2020-07-07 12:08] LABS: International Normalized Ratio 3.7
[2020-07-12 12:07] LABS: International Normalized Ratio 1.6; Prothrombin Time (Protime)PT. 18.9 SECONDS (11.7-14.9)
[2020-07-12 12:14] LABS: Anion Gap 5 (5-15); BUN 15 mg/dL (7-18); BUN/Creat Ratio 9.6 RATIO (10-20); Calcium,Total 7.9 mg/dL (8.5-10.1); Chloride 108 mmol/L (98-107); Creatinine, Serum 1.57 mg/dL (0.55-1.02); EST Glomerular Filtration Rate 34 mL/min (>60); Est Glom Filt Rate - Afr Amer 41 mL/min (>60); Glucose 100 mg/dL (74-106); Potassium 3.5 mmol/L (3.5-5.1); Sodium Level 140 mmol/L (136-145)
== END 2020-07-12 18:00 | disposition home or self-care (01) ==
LOC: LAB 10:55
PROVIDERS: Family Provider Internal Medicine; PCP Internal Medicine; Referring Provider Internal Medicine Cardiovascular Disease; Visit Provider Internal Medicine Cardiovascular Disease
DX: Z95.2 Presence of prosthetic heart valve (principal); Z79.01 Long term (current) use of 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
CPT/HCPCS: 36415; 80048; 85610

== ENCOUNTER → 2020-07-16 08:19 | Outpatient (CLI) | payer OTHER, MEDICARE, SELFPAY ==
[2020-07-06 08:12] VITALS: BMI 23.3
[2020-07-16] VITALS (9 sets, daily range): BP systolic 63–89; BP diastolic 32–57; PULSE 80–101; RESP 16–18; TEMP 36.2–36.6; O2SAT 91–97; BMI 23.3
[2020-07-16] MEDS: Acetaminophen 325 MG Tablet 650 MG PO (08:36)
[2020-07-16] MEDS: 0.9% NaCl Peripheral Flush Adult/Peds IV (09:13)
== END ==
PROVIDERS: PCP Internal Medicine; Referring Provider Internal Medicine Hematology & Oncology; Visit Provider Internal Medicine Hematology & Oncology
DX: Z51.89 Encounter for other specified aftercare (principal); N18.9 Chronic kidney disease, unspecified; K92.2 Gastrointestinal hemorrhage, unspecified
CPT/HCPCS: 36430; 86850; 86900; 86901; 86902; 86920; 86922; J7040; P9016; A4216

== ENCOUNTER → 2020-07-23 08:21 | Outpatient (CLI) | payer OTHER, SELFPAY ==
[2020-07-16 09:08] VITALS: BMI 23.3
[2020-07-23] VITALS (9 sets, daily range): BP systolic 69–91; BP diastolic 35–52; PULSE 86–100; RESP 16; TEMP 35.9–36.2; O2SAT 93–94; BMI 23.3
[2020-07-23] MEDS: 0.9% NaCl Peripheral Flush Adult/Peds IV (08:52)
[2020-07-23] MEDS: Acetaminophen 325 MG Tablet 650 MG PO (08:52)
== END ==
PROVIDERS: PCP Internal Medicine; Referring Provider Internal Medicine Hematology & Oncology; Visit Provider Internal Medicine Hematology & Oncology
DX: Z51.89 Encounter for other specified aftercare (principal); N18.9 Chronic kidney disease, unspecified; K92.2 Gastrointestinal hemorrhage, unspecified
CPT/HCPCS: 36430; 86850; 86900; 86901; 86902; 86920; 86922; J7040; P9016; A4216

== ENCOUNTER 2020-07-23 13:20 | Outpatient (RCR) | payer OTHER, SELFPAY ==
[2020-07-06 08:12] VITALS: BMI 23.3
[2020-07-16 09:08] VITALS: BMI 23.3
[2020-07-16 16:06] LABS: International Normalized Ratio 2.4; Prothrombin Time (Protime)PT. 25.8 SECONDS (11.7-14.9)
[2020-07-23 13:48] LABS: International Normalized Ratio 3.2; Prothrombin Time (Protime)PT. 32.5 SECONDS (11.7-14.9)
== END 2020-07-23 18:00 | disposition home or self-care (01) ==
LOC: LAB 13:20
PROVIDERS: Family Provider Internal Medicine; PCP Internal Medicine; Referring Provider Internal Medicine Cardiovascular Disease; Visit Provider Internal Medicine Cardiovascular Disease
DX: Z95.2 Presence of prosthetic heart valve (principal); Z79.01 Long term (current) use of 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
CPT/HCPCS: 36415; 85610

== ENCOUNTER → 2020-08-05 07:30 | Outpatient (CLI) | payer OTHER, SELFPAY ==
[2020-07-23 08:38] VITALS: BMI 23.3
[2020-08-05] VITALS (8 sets, daily range): BP systolic 62–101; BP diastolic 42–81; PULSE 44–92; RESP 16–18; TEMP 36.2–36.6; O2SAT 94–100; BMI 23.3
[2020-08-05] MEDS: 0.9% NaCl Peripheral Flush Adult/Peds IV (07:50)
[2020-08-05] MEDS: Acetaminophen 325 MG Tablet 650 MG PO (07:50)
[2020-08-05 08:55] LABS: International Normalized Ratio 2.9; Prothrombin Time (Protime)PT. 29.8 SECONDS (11.7-14.9)
[2020-08-05 13:49] LABS: Phosphorus 3.6 mg/dL (2.5-4.9)
== END ==
PROVIDERS: PCP Internal Medicine; Referring Provider Internal Medicine Hematology & Oncology; Visit Provider Internal Medicine Hematology & Oncology
DX: Z51.89 Encounter for other specified aftercare (principal); K92.2 Gastrointestinal hemorrhage, unspecified; N18.31 Chronic kidney disease, stage 3a
CPT/HCPCS: 36430; 84100; 85610; 86850; 86900; 86901; 86902; 86920; 86922; J7040; P9016; A4216

== ENCOUNTER → 2020-08-12 07:28 | Outpatient (CLI) | payer OTHER, SELFPAY ==
[2020-08-05 07:54] VITALS: BMI 23.3
[2020-08-12 07:42] VITALS: BP 75/46; PULSE 103; RESP 18; TEMP 36.2; O2SAT 93; BMI 23.3
[2020-08-12] MEDS: 0.9% NaCl Peripheral Flush Adult/Peds IV (07:59)
[2020-08-12] MEDS: Acetaminophen 325 MG Tablet 650 MG PO (08:00)
[2020-08-12 08:26] VITALS: BP 75/46; PULSE 103; RESP 18; TEMP 36.2; O2SAT 93
[2020-08-12 08:41] VITALS: BP 82/37; PULSE 102; RESP 20; TEMP 35.8; O2SAT 3
[2020-08-12 10:30] VITALS: BP 85/45; PULSE 100; RESP 22; TEMP 36.1; O2SAT 93
== END ==
PROVIDERS: PCP Internal Medicine; Referring Provider Internal Medicine Hematology & Oncology; Visit Provider Internal Medicine Hematology & Oncology
DX: Z51.89 Encounter for other specified aftercare (principal); N18.9 Chronic kidney disease, unspecified; K92.2 Gastrointestinal hemorrhage, unspecified
CPT/HCPCS: 36430; 86850; 86900; 86901; 86902; 86920; 86922; J7040; P9016; A4216

== ENCOUNTER 2020-08-12 09:43 | Emergency (ER) | payer OTHER, SELFPAY ==
[2020-08-12 07:42] VITALS: BMI 23.3
[2020-08-12 09:46] VITALS: BP 71/57; PULSE 100; RESP 20; TEMP 36.1; O2SAT 99; BMI 22.3
[2020-08-12 09:49] VITALS: BP 71/57; PULSE 100; RESP 24; TEMP 36.6; O2SAT 93
--- NOTE | 2020-08-12 10:00 | ED.VISSUMM ---
- ER Visit Summary Date of Service: 08/12/20 Chief Complaint: Shortness of breath History of Present Illness: The patient is a [address] Muñoz. She has a history of a chronic GI bleed and a source has not been found. 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 She was getting a blood transfusion today when she complained of being short of breath and lightheaded. Her pulse ox at that time was 82%. Her blood pressure was 75/46. Patient reports that she is on 2 L of home O2 at night. She states that she does not get breathing treatments. She also reports that her daughter is in the ICU for Covid. She has not been tested. However, she was in the same room as her daughter. She has a chronic cough that is unchanged. She complains of mild shortness of breath and generalized weakness. She denies any fever, chills, chest pain, or other complaints. Physical Examination: Vitals: 97.0, 71/57, 100, 20, and 9% on 2 L nasal cannula.. General: Well-nourished and well-developed. Head: Normocephalic atraumatic. Neck: Supple, no lymphadenopathy. No JVD. Nontender. Cardiovascular: Tachycardic regular rhythm with a 2 out of 6 systolic murmur and a mechanical valve click.. Respiratory: No respiratory distress. Mild wheezing bilaterally. Abdominal: Soft, nontender, nondistended, normal bowel sounds. No guarding, rebound, or peritoneal signs. Back: Nontender. Extremities: Nontender, no edema. Skin: Normal color, no rash. Neurologic: Alert and oriented ?3. Cranial nerves II through XII are intact. Normal strength and sensation. Psych: Normal affect. Test Results: CBC shows a white count of 2.4 with an H&H of 8.4 and 29.3, platelets of 87, segmented for 79, lymphocytes of 13. Hemoglobin has ranged between 4.4?9.4 and 2020. Chem-7 shows a chloride of 112, calcium 7.9, glucose 130, creatinine 1.33. LFTs show total protein of 5.9 and albumin is 2.6, ALT of 9, AST of 7. CRP is 4.35. CPK is 18. Lactic acid is 1.8. COVID-19 rapid antigen is negative. Fibrinogen is 375. Procalcitonin 0.10. Chest x-ray shows chronic changes in the right lower lobe. It is unchanged from August 2018. Emergency Department Course and Treatment: Patient presented to the infusion center with an IV already in place. She was given a dose of dexamethasone IV. She was given albuterol Atrovent aerosols. Patient is feeling improved. Blood pressure has come up to 89/44 which she reports is normal for her. Pulse ox on room air here is ranging between 89 to 95%. Treatment Plan: I had a prolonged discussion with the patient that despite the negative rapid antigen test I suspect that she has COVID-19 infection. She has an elevated CRP, procalcitonin, and fibrinogen. She does not want to stay in the hospital. She reports that she feels at her baseline other than the stress she is under with her daughter being intubated in the ICU with Covid. She has oxygen at home already. I discussed the patient that she may get much more ill at home and could possibly from this. She understands this and would like to leave despite this. She will be signed out AGAINST MEDICAL ADVICE. She is instructed to return to the emergency department for any worsening symptoms. Wear her oxygen at all times. She will be discharged on dexamethasone. She refused a COVID-19 RT-PCR. Disposition: Left AGAINST MEDICAL ADVICE Impression: 1. Hypoxia. 2. COPD. 3. URI, possible COVID-19 infection. 4. Coumadin coagulopathy. 5. Hypotension. 6. Pancytopenia. 7. Chronic renal insufficiency. This note was generated with [employer] software. It may contain incorrect words, spelling, and punctuation that were not noted in review of the chart prior to signing ED Disposition - Plan for ED Patient: Disposition: Against Medical Advice Instructions: Care for COPD Prescriptions: Dexamethasone 6 mg PO DAILY #7 tablet Referrals: Kodak Muñoz MD [Primary Care Provider] - 1-2 Days if not improving
[2020-08-12] MEDS: Ipratropium/Albuterol Sulfate 3 ML AMPUL.NEB INHALATION (10:08)
[2020-08-12 10:09] VITALS: PULSE 101; RESP 22; O2SAT 95
[2020-08-12 10:18] LABS: Absolute Lymphocyte Count 0.31 X10^3/uL (0.83-4.51); Absolute Neutrophil Count 1.9 X10^3/uL (2.0-7.7); Basophil# 0.01 X10^3/uL; Basophil% 0.4 % (0-1); Hematocrit 29.3 % (37-47); Hemoglobin 8.4 g/dL (12.0-15.0); Lymphocyte # 0.31 X10^3/ul (4.0); Lymphocyte % 12.8 % (19-41); Mean Corp Hgb Conc 28.7 g/dL (32-36); Mean Corpuscular Hgb 28.4 pg (27.0-32.0); Monocyte# 0.16 X10^3/uL; Monocyte% 6.6 % (0-10); NRBC Flagged by Analyzer 0 % (0-5); Neutrophil # 1.93 X10^3/uL (2.7-7.7); Neutrophil % 79.4 % (47-70); POSITIVE COUNT YES; POSITIVE DIFFERENTIAL YES; Platelet Count 87 K/mm3 (150-450); RBC Distribution Width CV 16.9 % (11.6-14.6); RBC Distribution Width SD 60.7 fl (35.1-43.9); Red Blood Count 2.96 M/mm3 (4.2-5.4); White Blood Count 2.4 K/mm3 (4.4-11.0)
[2020-08-12 10:20] LABS: Differential Indicated SCAN CRITERIA MET
[2020-08-12] MEDS: dexAMETHasone 4 MG/ML Vial 6 MG IV (10:27)
[2020-08-12] MEDS: HYDROCODONE/APAP 7.5-325/15ML 15 ML UDC 5 ML PO (10:32)
[2020-08-12 10:34] LABS: ALB/GLOB Ratio 0.8 RATIO (0.9-2.4); AST(SGOT) 7 U/L (15-37); Alanine Aminotransfer ALT/SGPT 9 U/L (13-56); Albumin, Serum 2.6 g/dL (3.2-5.0); Alkaline Phosphatase 95 U/L (45-117); Anion Gap 3 (5-15); BUN 13 mg/dL (7-18); BUN/Creat Ratio 9.8 RATIO (10-20); CPK Total, Creatine Kinase 18 U/L (26-192); CRP 4.35 mg/L (0.0-3.0); Calcium,Total 7.9 mg/dL (8.5-10.1); Chloride 112 mmol/L (98-107); Creatinine, Serum 1.33 mg/dL (0.55-1.02); EST Glomerular Filtration Rate 41 mL/min (>60); Est Glom Filt Rate - Afr Amer 50 mL/min (>60); Estimated Creatinine Clearance 28.02 ml/min; Globulin 3.3 g/dL (2.2-4.2); Glucose 130 mg/dL (74-106); LDH 193 U/L (84-246); Potassium 4.4 mmol/L (3.5-5.1); Protein, Total 5.9 g/dL (6.4-8.2); Sodium Level 141 mmol/L (136-145)
[2020-08-12 10:38] LABS: Differential Comment SCANED; Fibrinogen 375 mg/dl (203-444); International Normalized Ratio 2.4; Platelet Estimate MOD DEC (ADEQ); Prothrombin Time (Protime)PT. 25.8 SECONDS (11.7-14.9)
--- NOTE | 2020-08-12 10:38 | ED.RN ---
1015--sepsis alert initiated
--- NOTE | 2020-08-12 10:46 | RAD_ITS ---
STUDY: X-RAY CHEST REASON FOR EXAM: Female, 79 years old. dizzy and SOB after blood transfusion TECHNIQUE: Single AP portable view of the chest. COMPARISON: None. FINDINGS: Pacemaker is seen on the left side. Stable right lower lung, moderate effusion, basilar atelectasis. Sternal cerclage wires are present from a prior sternotomy. Normal mediastinum and joshua. Normal visualized pulmonary arteries. Normal visualized aortic arch and descending thoracic aorta. There is a levoscoliosis of the thoracic spine. There is degenerative osteoarthritis of the bilateral shoulders. There is no demonstrated abnormality of the visualized soft tissue structures of the upper abdomen. RAD/Chest 1 View (Portable) IMPRESSION: Stable right lower lung, moderate effusion, basilar atelectasis. Electronically Signed: Quirino Baker, at 11:21 EST Tel , Service support ,
[2020-08-12 10:49] LABS: Lactic Acid 1.8 mmol/L (0.4-1.9)
[2020-08-12 11:16] VITALS: BP 88/53; PULSE 101; RESP 20; O2SAT 93
[2020-08-12 12:06] VITALS: BP 88/56; PULSE 98; RESP 16; TEMP 36.3; O2SAT 93
[2020-08-16 13:11] LABS: Pathologist Review Reviewed
== END 2020-08-12 12:08 | disposition left against medical advice (07) ==
PROVIDERS: Emergency Provider Emergency Medicine; PCP Internal Medicine
DX: R09.02 Hypoxemia (principal); J44.9 Chronic obstructive pulmonary disease, unspecified; J06.9 Acute upper respiratory infection, unspecified; T45.515A Adverse effect of 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, initial encounter; D61.818 Other pancytopenia; R79.1 Abnormal coagulation profile; N18.9 Chronic kidney disease, unspecified; I95.9 Hypotension, unspecified; Z79.01 Long term (current) use of 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; Z95.2 Presence of prosthetic heart valve; Z20.828 Contact with and (suspected) exposure to other viral communicable diseases
CPT/HCPCS: 71045; 80053; 82550; 83605; 83615; 84145; 85025; 85384; 85610; 86140; 87040; 87426; 94640; 96374; 99284; J7030; A4216

== ENCOUNTER → 2020-08-27 07:49 | Outpatient (CLI) | payer OTHER, SELFPAY ==
[2020-08-12 09:46] VITALS: BMI 22.3
[2020-08-27] VITALS (9 sets, daily range): BP systolic 69–101; BP diastolic 38–58; PULSE 102–110; RESP 16–18; TEMP 36.6–37.5; O2SAT 92–96; BMI 22.3
[2020-08-27] MEDS: 0.9% NaCl Peripheral Flush Adult/Peds IV (08:00)
[2020-08-27] MEDS: Acetaminophen 325 MG Tablet 650 MG PO (08:05)
== END ==
PROVIDERS: PCP Internal Medicine; Referring Provider Internal Medicine Hematology & Oncology; Visit Provider Internal Medicine Hematology & Oncology
DX: Z51.89 Encounter for other specified aftercare (principal); N18.9 Chronic kidney disease, unspecified; K92.2 Gastrointestinal hemorrhage, unspecified
CPT/HCPCS: 36430; 86850; 86900; 86901; 86902; 86920; 86922; J7040; P9016; A4216

== ENCOUNTER 2020-09-03 11:40 | Outpatient (RCR) | payer OTHER, SELFPAY ==
[2020-08-19 11:18] LABS: International Normalized Ratio 3.3; Prothrombin Time (Protime)PT. 32.9 SECONDS (11.7-14.9)
[2020-08-26 11:04] LABS: International Normalized Ratio 1.7; Prothrombin Time (Protime)PT. 19.6 SECONDS (11.7-14.9)
[2020-09-03 12:45] LABS: International Normalized Ratio 2.8; Prothrombin Time (Protime)PT. 29.2 SECONDS (11.7-14.9)
== END 2020-09-03 18:00 | disposition home or self-care (01) ==
LOC: LAB 11:40
PROVIDERS: Family Provider Internal Medicine; PCP Internal Medicine; Referring Provider Internal Medicine Cardiovascular Disease; Visit Provider Internal Medicine Cardiovascular Disease
DX: Z95.2 Presence of prosthetic heart valve (principal); Z79.01 Long term (current) use of 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
CPT/HCPCS: 36415; 85610

== ENCOUNTER 2020-09-18 09:13 | Outpatient (CLI) | payer OTHER, SELFPAY ==
[2020-08-27 08:09] VITALS: BMI 22.3
[2020-09-18] VITALS (10 sets, daily range): BP systolic 63–96; BP diastolic 30–50; PULSE 75–96; RESP 16–18; TEMP 36.3–36.6; O2SAT 93–95; BMI 29.2
[2020-09-18] MEDS: Acetaminophen 325 MG Tablet 650 MG PO (09:40)
== END 2020-09-18 15:27 | disposition home or self-care (01) ==
LOC: MEDOUTP 09:35 → ICU 09:36
PROVIDERS: PCP Internal Medicine; Visit Provider Internal Medicine Hematology & Oncology
DX: Z51.89 Encounter for other specified aftercare (principal); K92.2 Gastrointestinal hemorrhage, unspecified; N18.9 Chronic kidney disease, unspecified
CPT/HCPCS: 36430; 86850; 86900; 86901; 86902; 86920; 86922; P9016

== ENCOUNTER 2020-10-07 13:14 | Outpatient (RCR) | payer OTHER, SELFPAY ==
[2020-08-27 08:09] VITALS: BMI 22.3
[2020-09-16 13:38] LABS: International Normalized Ratio 2.3; Prothrombin Time (Protime)PT. 24.4 SECONDS (11.7-14.9)
[2020-09-23 13:21] LABS: International Normalized Ratio 2.4; Prothrombin Time (Protime)PT. 25.8 SECONDS (11.7-14.9)
[2020-10-07 13:44] LABS: International Normalized Ratio 1.9; Prothrombin Time (Protime)PT. 21.5 SECONDS (11.7-14.9)
== END 2020-10-07 18:00 | disposition home or self-care (01) ==
LOC: LAB 13:14
PROVIDERS: Family Provider Internal Medicine; PCP Internal Medicine; Referring Provider Internal Medicine Cardiovascular Disease; Visit Provider Internal Medicine Cardiovascular Disease
DX: Z95.2 Presence of prosthetic heart valve (principal); Z79.01 Long term (current) use of 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
CPT/HCPCS: 36415; 85610

== ENCOUNTER 2020-10-11 10:24 | Outpatient (RCR) | payer OTHER, SELFPAY ==
[2020-10-07 13:39] VITALS: BMI 21.4
== END 2020-10-11 23:59 ==
LOC: IMMUN 10:24
PROVIDERS: PCP Internal Medicine; Referring Provider Family Medicine; Visit Provider Family Medicine
DX: Z23 Encounter for immunization (principal)
CPT/HCPCS: 0011A; 0012A

== ENCOUNTER 2020-10-28 10:27 | Outpatient (RCR) | payer OTHER, SELFPAY ==
[2020-10-07 13:39] VITALS: BMI 21.4
[2020-10-14 13:33] LABS: International Normalized Ratio 3.2; Prothrombin Time (Protime)PT. 32.4 SECONDS (11.7-14.9)
[2020-10-28 11:47] LABS: International Normalized Ratio 3.5; Prothrombin Time (Protime)PT. 34.5 SECONDS (11.7-14.9)
== END 2020-10-28 18:00 | disposition home or self-care (01) ==
LOC: LAB 10:27
PROVIDERS: Family Provider Internal Medicine; PCP Internal Medicine; Referring Provider Internal Medicine Cardiovascular Disease; Visit Provider Internal Medicine Cardiovascular Disease
DX: Z95.2 Presence of prosthetic heart valve (principal); Z79.01 Long term (current) use of 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
CPT/HCPCS: 36415; 85610

== ENCOUNTER → 2020-11-12 07:44 | Outpatient (CLI) | payer OTHER, SELFPAY ==
[2020-10-07 13:39] VITALS: BMI 21.4
[2020-11-12] VITALS (7 sets, daily range): BP systolic 67–103; BP diastolic 34–59; PULSE 69–72; RESP 16; TEMP 36–36.4; O2SAT 91–96; BMI 21.4
[2020-11-12] MEDS: Acetaminophen 325 MG Tablet 650 MG PO (07:54)
[2020-11-12] MEDS: 0.9% NaCl Peripheral Flush Adult/Peds IV (08:56)
== END ==
PROVIDERS: PCP Internal Medicine; Referring Provider Internal Medicine Hematology & Oncology; Visit Provider Internal Medicine Hematology & Oncology
DX: Z51.89 Encounter for other specified aftercare (principal); N18.9 Chronic kidney disease, unspecified; K92.2 Gastrointestinal hemorrhage, unspecified
CPT/HCPCS: 36430; 86850; 86900; 86901; 86902; 86920; 86922; J7040; J7050; P9016; A4216

== ENCOUNTER → 2020-11-19 07:51 | Outpatient (CLI) | payer OTHER, SELFPAY ==
[2020-11-12 08:28] VITALS: BMI 21.4
[2020-11-19] VITALS (8 sets, daily range): BP systolic 63–92; BP diastolic 35–57; PULSE 69–71; RESP 16; TEMP 36–36.4; O2SAT 93–95; BMI 21.4
[2020-11-19] MEDS: 0.9% NaCl Peripheral Flush Adult/Peds IV (08:05)
[2020-11-19] MEDS: Acetaminophen 325 MG Tablet 650 MG PO (08:09)
== END ==
PROVIDERS: PCP Internal Medicine; Visit Provider Internal Medicine Hematology & Oncology
DX: Z51.89 Encounter for other specified aftercare (principal); D64.9 Anemia, unspecified; N18.9 Chronic kidney disease, unspecified; K92.2 Gastrointestinal hemorrhage, unspecified
CPT/HCPCS: 36430; 86850; 86900; 86901; 86920; 86922; J7040; P9040; A4216

== ENCOUNTER 2020-12-09 12:27 | Outpatient (RCR) | payer OTHER, SELFPAY ==
[2020-10-07 13:39] VITALS: BMI 21.4
[2020-11-11 15:30] LABS: International Normalized Ratio 2.5; Prothrombin Time (Protime)PT. 26.4 SECONDS (11.7-14.9)
[2020-11-16 17:39] LABS: International Normalized Ratio 3.7
[2020-11-25 11:39] LABS: International Normalized Ratio 2.7; Prothrombin Time (Protime)PT. 28.1 SECONDS (11.7-14.9)
[2020-12-09 13:33] LABS: International Normalized Ratio 1.7; Prothrombin Time (Protime)PT. 19.4 SECONDS (11.7-14.9)
== END 2020-12-09 18:00 | disposition home or self-care (01) ==
LOC: LAB 12:27
PROVIDERS: Family Provider Internal Medicine; PCP Internal Medicine; Referring Provider Internal Medicine Cardiovascular Disease; Visit Provider Internal Medicine Cardiovascular Disease
DX: Z95.2 Presence of prosthetic heart valve (principal); Z79.01 Long term (current) use of 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
CPT/HCPCS: 36415; 85610

== ENCOUNTER 2021-01-05 09:56 | Outpatient (RCR) | payer OTHER, SELFPAY ==
[2020-12-02 13:36] VITALS: BMI 22.1
[2020-12-13 13:05] LABS: International Normalized Ratio 1.9; Prothrombin Time (Protime)PT. 21.4 SECONDS (11.7-14.9)
[2020-12-17 13:55] LABS: International Normalized Ratio 2.4; Prothrombin Time (Protime)PT. 25.2 SECONDS (11.7-14.9)
[2020-12-27 10:30] LABS: International Normalized Ratio 3.6; Prothrombin Time (Protime)PT. 34.8 SECONDS (11.7-14.9)
[2021-01-03 11:30] LABS: International Normalized Ratio 1.7; Prothrombin Time (Protime)PT. 18.9 SECONDS (11.7-14.9)
[2021-01-03 12:26] LABS: Anion Gap 5 (5-15); BUN 17 mg/dL (7-18); BUN/Creat Ratio 13.8 RATIO (10-20); Calcium,Total 8.2 mg/dL (8.5-10.1); Chloride 100 mmol/L (98-107); Creatinine, Serum 1.23 mg/dL (0.55-1.02); EST Glomerular Filtration Rate 45 mL/min (>60); Est Glom Filt Rate - Afr Amer 54 mL/min (>60); Glucose 138 mg/dL (74-106); Potassium 2.7 mmol/L (3.5-5.1); Sodium Level 137 mmol/L (136-145)
[2021-01-05 10:42] LABS: Prothrombin Time (Protime)PT. 21.9 SECONDS (11.7-14.9)
[2021-01-05 10:55] LABS: Anion Gap 5 (5-15); BUN 15 mg/dL (7-18); BUN/Creat Ratio 11.8 RATIO (10-20); Calcium,Total 8.1 mg/dL (8.5-10.1); Chloride 103 mmol/L (98-107); Creatinine, Serum 1.27 mg/dL (0.55-1.02); EST Glomerular Filtration Rate 43 mL/min (>60); Est Glom Filt Rate - Afr Amer 52 mL/min (>60); Glucose 151 mg/dL (74-106); Potassium 3.3 mmol/L (3.5-5.1); Sodium Level 141 mmol/L (136-145)
== END 2021-01-05 18:00 | disposition home or self-care (01) ==
LOC: LAB 09:56
PROVIDERS: Family Provider Internal Medicine; PCP Internal Medicine; Referring Provider Internal Medicine Cardiovascular Disease; Visit Provider Internal Medicine Cardiovascular Disease
DX: Z95.2 Presence of prosthetic heart valve (principal); Z79.01 Long term (current) use of 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
CPT/HCPCS: 36415; 80048; 83880; 85610

== ENCOUNTER 2021-01-19 11:27 | Inpatient (IN) | payer MEDICARE, SELFPAY ==
[2021-01-07 11:32] VITALS: BMI 20.8
[2021-01-19] VITALS (19 sets, daily range): BP systolic 59–100; BP diastolic 31–44; PULSE 66–77; RESP 16–21; TEMP 36.6–37.2; O2SAT 94–100; BMI 19.5; BMI 18.1
--- NOTE | 2021-01-19 12:09 | EKG12_ITS ---
Test Reason : WEAKNESS Blood Pressure : / mmHG Vent. Rate : 070 BPM Atrial Rate : 241 BPM P-R Int : 170 ms QRS Dur : 078 ms QT Int : 440 ms P-R-T Axes : 180 -37 -38 degrees QTc Int : 475 ms Atrial-paced rhythm Left axis deviation ST & T wave abnormality, consider anterior ischemia Prolonged QT Abnormal ECG Confirmed by CIARA GUILLEN, HENRIETTA ([id number]), film editor JULIO WOODALL ([id number]) on 01/21/2021 8:38:09 AM Referred By: ROSALEE Confirmed By:HENRIETTA URBINA MD
[2021-01-19 12:50] LABS: Absolute Lymphocyte Count 0.31 X10^3/uL (0.83-4.51); Absolute Neutrophil Count 1.8 X10^3/uL (2.0-7.7); Basophil# 0.01 X10^3/uL; Basophil% 0.4 % (0-1); Hematocrit 17.5 % (37-47); Lymphocyte # 0.31 X10^3/ul (0.83-4.51); Lymphocyte % 13.5 % (19-41); Mean Corp Hgb Conc 30.3 g/dL (32-36); Mean Corpuscular Volume 95.6 fL (81-99); Mean Platelet Vol. 10.9 fl (6.2-12.0); Monocyte# 0.17 X10^3/uL; Monocyte% 7.4 % (0-10); NRBC Flagged by Analyzer 0 % (0-5); Neutrophil # 1.79 X10^3/uL (2.7-7.7); Neutrophil % 77.8 % (47-70); POSITIVE COUNT YES; POSITIVE DIFFERENTIAL YES; Platelet Count 115 K/mm3 (150-450); RBC Distribution Width CV 18.5 % (11.6-14.6); RBC Distribution Width SD 62.2 fl (35.1-43.9); Red Blood Count 1.83 M/mm3 (4.2-5.4); White Blood Count 2.3 K/mm3 (4.4-11.0)
[2021-01-19 12:54] LABS: Differential Indicated SCAN CRITERIA MET; Hemoglobin 5.3 g/dL (12.0-15.0); Prothrombin Time (Protime)PT. 39.3 SECONDS (11.7-14.9)
[2021-01-19 12:55] LABS: Partial Thromboplast Time 44.7 Seconds (24.1-36.2)
[2021-01-19 12:58] LABS: International Normalized Ratio 4.2
[2021-01-19 13:07] LABS: ALB/GLOB Ratio 0.9 RATIO (0.9-2.4); AST(SGOT) 10 U/L (15-37); Alanine Aminotransfer ALT/SGPT 8 U/L (13-56); Albumin, Serum 2.8 g/dL (3.2-5.0); Alkaline Phosphatase 73 U/L (45-117); Anion Gap 5 (5-15); BUN 32 mg/dL (7-18); BUN/Creat Ratio 24.2 RATIO (10-20); Calcium,Total 8.4 mg/dL (8.5-10.1); Chloride 110 mmol/L (98-107); Creatinine, Serum 1.32 mg/dL (0.55-1.02); EST Glomerular Filtration Rate 41 mL/min (>60); Est Glom Filt Rate - Afr Amer 50 mL/min (>60); Estimated Creatinine Clearance 26.84 ml/min; Globulin 3.2 g/dL (2.2-4.2); Glucose 164 mg/dL (74-106); Potassium 3.9 mmol/L (3.5-5.1); Sodium Level 142 mmol/L (136-145)
--- NOTE | 2021-01-19 13:53 | EDS_ITS ---
HPI History of Present Illness Chief Complaint: Weakness Informant: patient Onset/Context/Timing Onset: Yesterday Context: Gradual Onset Timing: Continuous Quality: Weak Location: Generalized Worsened by: Nothing Relieved by: Nothing Narrative Narrative: Patient presents with generalized weakness. Patient states she has a history of anemia. Patient states she has been worked up for GI bleeding several times in the past with multiple endoscopies and camera pills. Patient states they have never been able to find the source of her anemia. Patient states she has had multiple transfusions in the past. Patient states she feels weak all over. Patient follows with Dr. Thomas from hematology. [facility] Medical History Anemia Carotid bruit Chronic atrial fibrillation COPD (chronic obstructive pulmonary disease) GERD (gastroesophageal reflux disease) GI bleeding HLD (hyperlipidemia) Hypotension detention current use of anticoagulant Nicotine dependence Non-rheumatic aortic stenosis Non-rheumatic tricuspid valve insufficiency Nonrheumatic mitral (valve) insufficiency Pancytopenia Pericardial effusion Pleural effusion PVC's (premature ventricular contractions) Secondary pulmonary hypertension Tachycardia-bradycardia syndrome Thrombocytopenia Type 2 diabetes mellitus Typical atrial flutter Home Medications atorvastatin 20 mg PO QHS 05/22/13 [History Last Taken 04/28/20] levothyroxine 100 mcg PO DAILY 04/01/15 [History Last Taken 04/28/20] ferrous sulfate 650 mg PO QHS 04/02/15 [History Last Taken 04/28/20] folic acid 1 mg PO DAILY@0800 04/30/15 [History Last Taken 04/28/20] cyanocobalamin (vitamin B-12) 2,500 mcg PO DAILY 06/10/16 [History Last Taken 1 Week Ago ~04/22/20] magnesium 250 mg PO DAILY 05/24/17 [History Last Taken 04/28/20] cholecalciferol (vitamin D3) 1,000 unit PO DAILY 04/07/19 [History Last Taken 04/28/20] venlafaxine 37.5 mg PO BID 04/07/19 [History Last Taken 04/28/20] albuterol sulfate 90 mcg/actuation aerosol inhaler 2 puff INHALATION Q6H PRN PRN #18 g 11/26/19 [Rx Last Taken Unknown] doxepin 25 mg capsule 25 mg PO QHS 04/01/20 [History Last Taken 04/28/20] Hydrocodone Bitartrate 0.5 tab PO DAILY PRN PRN 04/29/20 [History Last Taken 04/29/20] darbepoetin peace in polysorbat 0.4 ml IM TH 04/29/20 [History Last Taken 04/29/20] warfarin 0.5 mg PO DAILY 04/29/20 [History Last Taken 04/28/20] pantoprazole 40 mg PO BID 30 Days #60 tab 06/21/20 [Rx Last Taken Unknown] dexamethasone 6 mg PO DAILY #7 tab 08/12/20 [Rx Last Taken Unknown] metoprolol succinate 25 mg tablet,extended release 24 hr 12.5 mg PO BID 90 Days #90 tab 09/03/20 [Rx Last Taken Unknown] warfarin 1 mg tablet 1.5 mg PO DAILY #135 tab 09/07/20 [Rx Last Taken Unknown] amoxicillin 875 mg-potassium clavulanate 125 mg tablet 1 tablet PO BID #20 tablet 12/02/20 [Rx Last Taken Unknown] prednisone 10 mg tablet 10 mg PO QDAY #30 tablet 12/02/20 [Rx Last Taken Unknown] potassium chloride 20 mEq tablet,extended release(part/cryst) 20 meq PO .COMPLEX #90 tab 01/03/21 [Rx Last Taken Unknown] furosemide 20 mg tablet 40 mg PO DAILY tab 01/04/21 [History Last Taken Unknown] Allergy/AdvReac Type Severity Reaction Status Date / Time amiodarone AdvReac vomiting, Verified 01/19/21 11:28 poor balance, dizziness digoxin AdvReac nausea, Verified 01/19/21 11:28 dry heaves lorazepam [From Ativan] AdvReac Unknown Verified 01/19/21 11:28 meloxicam [From Mobic] AdvReac Unknown Verified 01/19/21 11:28 nortriptyline HCl AdvReac Unknown Verified 01/19/21 11:28 [From Pamelor] zolpidem tartrate AdvReac Unknown Verified 01/19/21 11:28 [From Ambien] Family History (Reviewed 12/02/20 @ 13:46 by Marci Ritter DIRECTOR OF CARDIAC CATH LAB, DIRECTOR OF CARDIAC CATH LAB-C) Mother Cancer lung and renal Father Heart disease Surgical History History of cardioversion (10/2015) History of incision of pericardium History of left heart catheterization (07/17/08) History of mitral valve replacement with mechanical valve (07/22/08) History of tubal ligation Presence of permanent cardiac pacemaker (08/30/18) Social History Smoking Status: Current every day smoker tobacco type: cigarettes Tobacco: How many years used: 60 alcohol intake: never substance use type: does not use caffeine: Yes Type: carbonated beverages what type of physical activity do you participate in: none seatbelt use: always do you feel safe at home: Yes ROS ROS ED Constitutional Constitutional ED: Denies chills or fever(s) Eyes Eyes: Denies blurry vision or change in vision ENT ENT ED: Denies rhinorrhea or sore throat Cardiovascular Cardiovascular: Denies chest pain or palpitations Respiratory/Chest Respiratory/Chest: Denies cough or dyspnea Gastrointestinal Gastrointestinal: Reports diarrhea; Denies nausea or vomiting Genitourinary Genitourinary ED: Denies dysuria or hematuria Musculoskeletal Musculoskeletal: Reports neck pain; Denies back pain Integumentary Denies abscess or rash Neurologic Neurologic: Reports headache(s) and weakness Allergic/Immunologic Allergic/Immunologic ED: Denies mouth swelling or urticaria EXAM Physical Exam Const Vital Signs: 01/19/21 11:29 01/19/21 11:49 01/19/21 12:00 Temperature 98.8 F Temperature Source Oral Pulse Rate 71 70 Respiratory Rate 20 H 16 Respiratory Effort Normal Non-Labored Respiratory Pattern Normal Blood Pressure 65/41 L Blood Pressure Mean 49 Pulse Ox 100 97 Oxygen Delivery Method Room Air Room Air 01/19/21 12:01 Temperature Temperature Source Pulse Rate Respiratory Rate Respiratory Effort Respiratory Pattern Blood Pressure 76/42 L Blood Pressure Mean 53 Pulse Ox Oxygen Delivery Method Positive cachectic General Appearance ED: cachectic, NAD and pallor Nutritional Appearance: cachectic HEENT Reports moist mucous membranes Eyes EOMs intact bilaterally General Eye ED: Yes pale conjunctiva Neck supple and no JVD Resp normal respiratory effort Cardio regular rate and regular rhythm Rate: other Other Details: There is a systolic murmur at the lower left sternal border. GI normal to inspection, nondistended, normoactive bowel sounds and non-tender Palpation: soft Extremity normal to inspection General Extremety ED: Negative for edema General Extremity: Negative for edema Neuro oriented x3, CN's II-XII intact bilaterally and no sensory deficits noted Sensorium / Orientation: alert Motor Exam: strength 5/5 throughout Psych mental status grossly normal Skin General Skin Exam: pallor MDM MDM MDM Narrative Medical decision making narrative: Blood pressure was 76/42. Patient states her blood pressures always run in the 70s over 40s. Patient states this is not abnormal for her. CBC shows a hemoglobin of 5.3 and hematocrit of 17.5. Platelets were 115. PT with INR was slightly elevated with an INR 4.2. Comprehensive metabolic profile showed a slightly elevated creatinine 1.32 and BUN of 32. Troponin was normal. EKG was obtained. On my interpretation, it showed an atrial paced rhythm with a rate of 70. MN interval, QRS interval, and QTc intervals were all normal. There is left axis deviation at -37. There are no acute ST or T wave changes. Patient was typed and crossed for 2 units of blood. Transfusion will be started in the emergency department. Case was discussed with the hospitalist. He will admit the patient for observation. Patient understood and was agreeable with the plan. All questions were answered. Lab Data Attestation: I reviewed the patient's lab results. Labs: Laboratory Results - last 24 hr 01/19/21 01/19/21 01/19/21 12:35 12:35 12:35 WBC 2.3 L RBC 1.83 L Hgb 5.3 L* Hct 17.5 L MCV 95.6 MCH 29.0 MCHC 30.3 L RDW Std Deviation 62.2 H RDW Coeff of Uriel 18.5 H Plt Count 115 L MPV 10.9 Immature Gran % (Auto) 0.900 Neut % (Auto) 77.8 H Lymph % (Auto) 13.5 L [place] % (Auto) 7.4 Eos % (Auto) 0.0 Baso % (Auto) 0.4 Absolute Neuts (auto) 1.8 L Absolute Lymphs (auto) 0.31 L Nucleated RBC % 0 Differential Comment COMMENT Diff Path Review May foll PT 39.3 H INR 4.2 H* APTT 44.7 H Sodium 142 Potassium 3.9 Chloride 110 H Carbon Dioxide 27.0 Anion Gap 5 BUN 32 H Creatinine 1.32 H Estim Creat Clear Calc 26.84 Est GFR (MDRD) Af Amer 50 L Est GFR (MDRD) Non-Af 41 L BUN/Creatinine Ratio 24.2 H Glucose 164 H Calcium 8.4 L Total Bilirubin 0.30 AST 10 L ALT 8 L Alkaline Phosphatase 73 Troponin I < 0.015 Total Protein 6.0 L Albumin 2.8 L Globulin 3.2 Albumin/Globulin Ratio 0.9 Blood Type Antibody Screen 01/19/21 12:35 WBC RBC Hgb Hct MCV MCH MCHC RDW Std Deviation RDW Coeff of Uriel Plt Count MPV Immature Gran % (Auto) Neut % (Auto) Lymph % (Auto) [place] % (Auto) Eos % (Auto) Baso % (Auto) Absolute Neuts (auto) Absolute Lymphs (auto) Nucleated RBC % Differential Comment Diff Path Review PT INR APTT Sodium Potassium Chloride Carbon Dioxide Anion Gap BUN Creatinine Estim Creat Clear Calc Est GFR (MDRD) Af Amer Est GFR (MDRD) Non-Af BUN/Creatinine Ratio Glucose Calcium Total Bilirubin AST ALT Alkaline Phosphatase Troponin I Total Protein Albumin Globulin Albumin/Globulin Ratio Blood Type A POSITIVE Antibody Screen NEGATIVE EKG Initial EKG: Attestation: I personally reviewed and interpreted this EKG as follows: Interpretation: Paced (70) and Non-Specific ST Changes Comments: Left axis deviation at -37 Prior: Unchanged (01/07/2018) Treatment and Re-Evaluation Vital Sign Attestation:: Vital signs were reviewed prior to admission. Patient blood pressure is low but patient states this is normal for her. Otherwise patient's vital signs are stable. Discharge Plan Dx/Rx/DC Orders Clinical Impression: Anemia, Pancytopenia Disposition Disposition: Acute Care [facility]
--- NOTE | 2021-01-19 14:10 | NURSING ---
MED SURG ANEMIA JOPPERI OBS
--- NOTE | 2021-01-19 14:29 | NURSING ---
Dr. Hill aware of patients blood pressure and verbalized verification that patient is appropriate for MedSurg floor.
--- NOTE | 2021-01-19 14:54 | HP.PCM.HOS_ITS ---
HPI - General General Date of Admission: 01/19/21 HPI Narrative EMANI LOUIS, is a 80 F who presents presents with weakness over the past few days. Patient has been feeling dizzy and lightheaded just very fatigued overall. Similar to when she has been anemic in the past. Patient has had history of anemia and has been transfused numerous times, last transfusion was about 6 to 8 weeks ago. Patient presents here and her hemoglobin is 5.3. Patient denies any hematochezia, melena or hemoptysis. Patient is on warfarin for a Saint Alex mechanical mitral valve. INR today is 4.2. Patient ordered 2 units of packed red blood cells from the emergency room. Patient does have a low blood pressure with systolic in the 70s which she states is her normal range. [facility] Medical History Anemia Carotid bruit Chronic atrial fibrillation COPD (chronic obstructive pulmonary disease) GERD (gastroesophageal reflux disease) GI bleeding HLD (hyperlipidemia) Hypotension nursing home current use of anticoagulant Nicotine dependence Non-rheumatic aortic stenosis Non-rheumatic tricuspid valve insufficiency Nonrheumatic mitral (valve) insufficiency Pancytopenia Pericardial effusion Pleural effusion PVC's (premature ventricular contractions) Secondary pulmonary hypertension Tachycardia-bradycardia syndrome Thrombocytopenia Type 2 diabetes mellitus Typical atrial flutter Home Medications ferrous sulfate 650 mg PO QHS 04/02/15 [History Last Taken 01/18/21] folic acid 1 mg PO DAILY@0800 04/30/15 [History Last Taken 01/17/21] cyanocobalamin (vitamin B-12) 2,500 mcg PO DAILY 06/10/16 [History Last Taken 01/17/21] magnesium 250 mg PO DAILY 05/24/17 [History Last Taken 01/17/21] cholecalciferol (vitamin D3) 1,000 unit PO DAILY 04/07/19 [History Last Taken 01/17/21] venlafaxine 37.5 mg PO BID 04/07/19 [History Last Taken 01/18/21] darbepoetin peace in polysorbat 0.4 ml IM TH 04/29/20 [History Last Taken 01/13/21] warfarin 2 mg PO DAILY 04/29/20 [History Last Taken 01/18/21] pantoprazole 40 mg PO BID 30 Days #60 tab 06/21/20 [Rx Last Taken 01/17/21] metoprolol succinate 25 mg tablet,extended release 24 hr 12.5 mg PO BID 90 Days #90 tab 09/03/20 [Rx Last Taken 01/18/21] furosemide 20 mg tablet 40 mg PO DAILY tab 01/04/21 [History Last Taken 01/17/21] hydrocodone-acetaminophen 0.5 - 1 tab PO Q8H PRN 01/19/21 [History Last Taken ] levothyroxine 100 mcg PO DAILY 01/19/21 [History Last Taken 01/17/21] potassium chloride 20 meq PO DAILY 01/19/21 [History Last Taken 01/17/21] Allergy/AdvReac Type Severity Reaction Status Date / Time amiodarone AdvReac vomiting, Verified 01/19/21 11:28 poor balance, dizziness digoxin AdvReac nausea, Verified 01/19/21 11:28 dry heaves lorazepam [From Ativan] AdvReac Unknown Verified 01/19/21 11:28 meloxicam [From Mobic] AdvReac Unknown Verified 01/19/21 11:28 nortriptyline HCl AdvReac Unknown Verified 01/19/21 11:28 [From Pamelor] zolpidem tartrate AdvReac Unknown Verified 01/19/21 11:28 [From Ambien] Family History Mother Cancer lung and renal Father Heart disease Surgical History History of cardioversion (10/2015) History of incision of pericardium History of left heart catheterization (07/17/08) History of mitral valve replacement with mechanical valve (07/22/08) History of tubal ligation Presence of permanent cardiac pacemaker (08/30/18) Social History Smoking Status: Current every day smoker tobacco type: cigarettes Tobacco: How many years used: 60 alcohol intake: never substance use type: does not use caffeine: Yes Type: carbonated beverages what type of physical activity do you participate in: none seatbelt use: always do you feel safe at home: Yes ROS ROS Narrative All review of systems were negative except as mentioned above in the history of present illness and the other review of systems. Vital Signs Vital Signs Vital Signs: 01/19/21 11:29 01/19/21 11:49 01/19/21 12:00 Temperature 37.1 C Temperature Source Oral Pulse Rate 71 70 Respiratory Rate 20 H 16 Respiratory Effort Normal Non-Labored Respiratory Pattern Normal Blood Pressure 65/41 L Blood Pressure Mean 49 Blood Pressure Source Blood Pressure Position Blood Pressure Location Pulse Ox 100 97 Oxygen Delivery Method Room Air Room Air 01/19/21 12:01 01/19/21 14:00 01/19/21 14:39 Temperature 37.2 C Temperature Source Oral Pulse Rate 70 70 Respiratory Rate 18 18 Respiratory Effort Respiratory Pattern Blood Pressure 76/42 L 74/44 L 74/42 L Blood Pressure Mean 53 54 52 Blood Pressure Source Manual Blood Pressure Position Semi-Fowlers Blood Pressure Location Left Arm Pulse Ox 94 95 Oxygen Delivery Method Room Air Room Air Weight Weight: 48.4 kg Body Mass Index (BMI) 19.5 Physical Exam Narrative Pale. Cachectic. Const alert HEENT normocephalic Eyes PERRL Resp normal respiratory effort, no use of accessory muscles and clear to auscultation bilaterally Cardio regular rate, regular rhythm, S1 normal heart sound and S2 normal heart sound GI normal to inspection, nondistended, normoactive bowel sounds, soft to palpation, non-tender and non-distended Extremity normal to inspection Extremity Narrative: Diminished radial pulses. Neuro Sensorium / Orientation: awake and alert Psych affect normal Results Lab / Micro Data Attestation: I reviewed the patient's lab results. Result Diagrams: 01/19/21 12:35 01/19/21 12:35 Labs: Laboratory Results - last 24 hr 01/19/21 01/19/21 01/19/21 12:35 12:35 12:35 WBC 2.3 L RBC 1.83 L Hgb 5.3 L* Hct 17.5 L MCV 95.6 MCH 29.0 MCHC 30.3 L RDW Std Deviation 62.2 H RDW Coeff of Uriel 18.5 H Plt Count 115 L MPV 10.9 Immature Gran % (Auto) 0.900 Neut % (Auto) 77.8 H Lymph % (Auto) 13.5 L [place] % (Auto) 7.4 Eos % (Auto) 0.0 Baso % (Auto) 0.4 Absolute Neuts (auto) 1.8 L Absolute Lymphs (auto) 0.31 L Nucleated RBC % 0 Differential Comment COMMENT Diff Path Review May foll PT 39.3 H INR 4.2 H* APTT 44.7 H Sodium 142 Potassium 3.9 Chloride 110 H Carbon Dioxide 27.0 Anion Gap 5 BUN 32 H Creatinine 1.32 H Estim Creat Clear Calc 26.84 Est GFR (MDRD) Af Amer 50 L Est GFR (MDRD) Non-Af 41 L BUN/Creatinine Ratio 24.2 H Glucose 164 H Calcium 8.4 L Total Bilirubin 0.30 AST 10 L ALT 8 L Alkaline Phosphatase 73 Troponin I < 0.015 Total Protein 6.0 L Albumin 2.8 L Globulin 3.2 Albumin/Globulin Ratio 0.9 Blood Type Antibody Screen Crossmatch 01/19/21 01/19/21 12:35 12:35 WBC RBC Hgb Hct MCV MCH MCHC RDW Std Deviation RDW Coeff of Uriel Plt Count MPV Immature Gran % (Auto) Neut % (Auto) Lymph % (Auto) [place] % (Auto) Eos % (Auto) Baso % (Auto) Absolute Neuts (auto) Absolute Lymphs (auto) Nucleated RBC % Differential Comment Diff Path Review PT INR APTT Sodium Potassium Chloride Carbon Dioxide Anion Gap BUN Creatinine Estim Creat Clear Calc Est GFR (MDRD) Af Amer Est GFR (MDRD) Non-Af BUN/Creatinine Ratio Glucose Calcium Total Bilirubin AST ALT Alkaline Phosphatase Troponin I Total Protein Albumin Globulin Albumin/Globulin Ratio Blood Type A POSITIVE Antibody Screen NEGATIVE Crossmatch See Detail Assessment & Plan Assessment/Plan (1) Anemia: QUALIFIERS: Anemia type: unspecified type Qualified Code(s): D64.9 - Anemia, unspecified PLAN: 1. Acute on chronic anemia * Hemoglobin currently 5.3. Start the complicated by the patient's warfarin usage but the patient denies any obvious hematochezia or melena. * Patient order 2 units of packed blood cells from the emergency room. Patient be transfused and will follow up. * Patient has undergone extensive endoscopy without any obvious source. We will not perform any additional endoscopy during this hospitalization unless she is clear evidence bleeding 2. Saint Alex mechanical mitral valve * Patient requires ongoing vitamin K antagonist with warfarin. INR, however, today is supratherapeutic at 4.2 so we will hold her warfarin for now. * Goal INR is 2.5-3.5 3. Hypotension, chronic * Patient states that her baseline is around 70-90. * Hold furosemide for now. 4. VTE prophylaxis: Not indicated as patient is already anticoagulated 5. Advanced care planning: Discussed with the patient. Patient wishes to be DNR Comfort Care arrest. Advised patient that she can change her mind at any time. Charges/Coding Visit Charges OBSV E&M: 92618 Initial observation care L3
--- NOTE | 2021-01-19 15:59 | EX.NTREPO ---
Medical Nutrition Therapy - History Current diet/nutrition support order:: Regular diet - Anthropometric Measurements Height:: 5 ft 2 in Weight:: 44.906 kg Body Mass Index (BMI):: 18.1 - Relevant Labs Relevant Labs:: WBC 2.3 K/mm3 (4.4-11.0) L 01/19/21 12:35 RBC 1.83 M/mm3 (4.2-5.4) L 01/19/21 12:35 Hgb 5.3 g/dL (12.0-15.0) L* 01/19/21 12:35 Hct 17.5 % (37-47) L 01/19/21 12:35 MCHC 30.3 g/dL (32-36) L 01/19/21 12:35 RDW Std Deviation 62.2 fl (35.1-43.9) H 01/19/21 12:35 RDW Coeff of Uriel 18.5 % (11.6-14.6) H 01/19/21 12:35 Plt Count 115 K/mm3 (150-450) L 01/19/21 12:35 Neut % (Auto) 77.8 % (47-70) H 01/19/21 12:35 Lymph % (Auto) 13.5 % (19-41) L 01/19/21 12:35 Absolute Neuts (auto) 1.8 X10^3/uL (2.0-7.7) L 01/19/21 12:35 Absolute Lymphs (auto) 0.31 X10^3/uL (0.83-4.51) L 01/19/21 12:35 PT 39.3 SECONDS (11.7-14.9) H 01/19/21 12:35 INR 4.2 H* 01/19/21 12:35 APTT 44.7 Seconds (24.1-36.2) H 01/19/21 12:35 Chloride 110 mmol/L (98-107) H 01/19/21 12:35 BUN 32 mg/dL (7-18) H 01/19/21 12:35 Creatinine 1.32 mg/dL (0.55-1.02) H 01/19/21 12:35 Est GFR (MDRD) Af Amer 50 mL/min (>60) L 01/19/21 12:35 Est GFR (MDRD) Non-Af 41 mL/min (>60) L 01/19/21 12:35 BUN/Creatinine Ratio 24.2 RATIO (10-20) H 01/19/21 12:35 Glucose 164 mg/dL (74-106) H 01/19/21 12:35 Calcium 8.4 mg/dL (8.5-10.1) L 01/19/21 12:35 AST 10 U/L (15-37) L 01/19/21 12:35 ALT 8 U/L (13-56) L 01/19/21 12:35 Total Protein 6.0 g/dL (6.4-8.2) L 01/19/21 12:35 Albumin 2.8 g/dL (3.2-5.0) L 01/19/21 12:35 - Assessment Food and Nutrient Intake: 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 PO intake on PCU to be established. - Nutrition Diagnosis: Clinical Problem Chronic Disease or Condition Related Malnutrition Clinical Problem - Etiology: related to poor po intake/no appetite x 1 year Clinical Problem - Signs/Symptoms: as evidenced by 8.4% weight loss x 1 week and 38.3% weight loss x 1 year and <50% oral intake x 1 year prior to admission. Pt with obvious fat/muscle loss (triceps, scapula, orbital, temporal, clavicle regions). - Protein Calorie Malnutrition Evidence of Malnutrition Exists: Yes Severe Protein Calorie Malnutrition:: Chronic Moderate Protein Calorie Malnutrition: Chronic - Nutrition Intervention Nutrition Prescription: [id number] elly/day (RMR x 1.2-1.3 + 250 wt gain). 45-54 gm pro/day (1-1.2 gm/kg). 1500 ml fluid/day (per ASPEN guidelines) - Food / Nutrient Delivery Interventions Summary of nutrition intervention:: Provide oral nutrition supplement - chocolate magic cup w/ lunch and dinner, 8 oz chocolate milkshake w/ meals tid Nutrition support ordered as / adjusted to:: Rec consider appetite stimulant. Rec continue liberal Regular diet. Will provide chocolate magic cup with lunch and dinner. Will provide 8 oz. homemade chocolate milkshake w/ meals Nutrition education provided?: No - MNT Monitoring Active Nutrition Patient: Yes Nutrition Status: Requires Follow Up 3-5 Days - please call RD/LD if questions/concerns at [phone]
[2021-01-19] MEDS: Pantoprazole Sodium 40 MG Tablet PO (20:45)
[2021-01-19] MEDS: Venlafaxine HCl 75 MG Tablet 37.5 MG PO (20:45)
[2021-01-19] MEDS: Ferrous Sulfate 325 MG Tablet 650 MG PO (20:45)
[2021-01-19] MEDS: Metoprolol(XL)Succ 25 MG Tablet 12.5 MG PO (20:45)
[2021-01-19 22:56] LABS: Mucous, Urine 0 SEEN /hpf (<or=2+); Red Blood Cells-Urine 0 SEEN /hpf (0-5); Squamous Epithelial Cells - UA 0 SEEN /hpf (5-10)
[2021-01-19 23:04] LABS: Color, Urine Yellow (Yellow); Glucose, Dipstick Normal (Normal); Ketone-Dipstick Negative (Negative); Leukocyte Esterase-Dipstick 500 /ul (Negative); Nitrite-Dipstick Positive (Negative); Occult Blood-Urine 10 /ul (Negative); Protein-Dipstick 30 mg/dl (Negative); Specific Gravity, Urine 1.025 (1.002-1.030); Urine Clarity Clear (Clear); Urine Urobilinogen Normal (Normal)
[2021-01-19 23:05] LABS: Urine Bilirubin Dipstick 1 mg/dL (Negative)
[2021-01-19 23:10] LABS: Bacteria 1+ /hpf (None Seen); White Blood Cells 5-10 SEEN /hpf (0-5)
[2021-01-20] VITALS (18 sets, daily range): BP systolic 59–108; BP diastolic 40–58; PULSE 69–80; RESP 12–18; TEMP 36.3–37.2; O2SAT 90–97
[2021-01-20] MEDS: Levothyroxine 100 MCG Tablet PO (06:06)
[2021-01-20 06:44] LABS: Absolute Lymphocyte Count 0.52 X10^3/uL (0.83-4.51); Absolute Neutrophil Count 2.8 X10^3/uL (2.0-7.7); Basophil# 0.01 X10^3/uL; Basophil% 0.3 % (0-1); Eosinophil# 0.01 X10^3/uL; Eosinophils% 0.3 % (0-5); Hematocrit 23.8 % (37-47); Hemoglobin 7.7 g/dL (12.0-15.0); Lymphocyte # 0.52 X10^3/ul (0.83-4.51); Lymphocyte % 14.4 % (19-41); Mean Corp Hgb Conc 32.4 g/dL (32-36); Mean Corpuscular Hgb 30.6 pg (27.0-32.0); Mean Corpuscular Volume 94.4 fL (81-99); Mean Platelet Vol. 11.2 fl (6.2-12.0); Monocyte# 0.28 X10^3/uL; Monocyte% 7.8 % (0-10); NRBC Flagged by Analyzer 0 % (0-5); Neutrophil # 2.76 X10^3/uL (2.7-7.7); Neutrophil % 76.6 % (47-70); POSITIVE DIFFERENTIAL YES; Platelet Count 108 K/mm3 (150-450); RBC Distribution Width CV 16.9 % (11.6-14.6); Red Blood Count 2.52 M/mm3 (4.2-5.4); White Blood Count 3.6 K/mm3 (4.4-11.0)
[2021-01-20 06:51] LABS: Prothrombin Time (Protime)PT. 45.8 SECONDS (11.7-14.9)
[2021-01-20 06:54] LABS: Differential Indicated SCAN CRITERIA MET
[2021-01-20 07:08] LABS: Differential Comment SCANNED
[2021-01-20 07:12] LABS: Anion Gap 4 (5-15); BUN 32 mg/dL (7-18); BUN/Creat Ratio 26.9 RATIO (10-20); Calcium,Total 8.2 mg/dL (8.5-10.1); Chloride 110 mmol/L (98-107); Creatinine, Serum 1.19 mg/dL (0.55-1.02); EST Glomerular Filtration Rate 47 mL/min (>60); Est Glom Filt Rate - Afr Amer 56 mL/min (>60); Estimated Creatinine Clearance 27.62 ml/min; Glucose 140 mg/dL (74-106); Potassium 3.7 mmol/L (3.5-5.1); Sodium Level 141 mmol/L (136-145)
[2021-01-20] MEDS: Magnesium Chloride 64 MG Delay Rel.Tablet 128 MG PO (09:53)
[2021-01-20] MEDS: Potassium Chloride Oral Tablet 20 MEQ PO (09:54)
[2021-01-20] MEDS: Folic Acid 1 MG Tablet PO (09:54)
[2021-01-20] MEDS: Cyanocobalamin 500 MCG Tablet 2500 MCG PO (09:54)
[2021-01-20] MEDS: Cholecalciferol (VIT D3) 25 MCG TABLET (1,000 UNITS) PO (09:54)
[2021-01-20] MEDS: Venlafaxine HCl 75 MG Tablet 37.5 MG PO ×2 (09:54→21:05)
[2021-01-20] MEDS: Pantoprazole Sodium 40 MG Tablet PO ×2 (09:55→21:05)
--- NOTE | 2021-01-20 11:30 | CASEMGMT ---
RN SILVIO CLAIM SERVICE REPRESENTATIVE CM to room to meet with patient for initial transition planning/care coordination assessment. RN SILVIO introduced self and role at [facility]. Pt voices understanding and consents to assessment at this time. Pt resting in bed in no distress at this time. Pt is A/O at this time and answers all questions appropriately. Care providers, pharmacy, and demographics verified/updated at this time. PCP: Dr Muñoz Specialists: Dr Thomas--hepatology, Dr Mendoza-cardiology, Dr Galvan--pulmonology Preferred Pharmacy: [facility] Retail Insurance: MCR A only Prescription Benefit: None. Pt states after her , she was past the deadline to sign-up for other supplemental insurance or prescription coverage. Pt states she called someone to inquire about this and was informed she would have to wait until next open enrollment to sign up. Pt states she is interested in getting info on applying for MANDO and other resources. Yaz SMALL, made aware of above. Living Will/HPOA: States does not have LW or HCPOA . Interested in more information and would like to talk with SW at this time to complete paperwork. Yaz SMALL, made aware LNOK/support system: Daughter recently from [place] and then less than 10 weeks thereafter (November 2020). Pt states she has 3 living sons who are supportive. She states she feels she has been coping okay with such great loss. She states she has a great support system and declines wanting to talk w/photography editor or SW re: same. Living Arrangements: Lives alone in 2-story home w/basement. Laundry is in the basement and she does have some difficulty w/the stairs. Her sons are currently in the process w/moving the laundry up to the main floor. Main floor has her bedroom and 1/2 bath. Sons are also in the process of installing a small stand-up shower on the main floor. She states she is independent w/ADL's and IADL's. She states her kids try to bring me food but she does not eat much d/t poor appetite. She states is able to drive and buys her own groceries and able to prepare her own meals. Nutrition c/s has been made and mortgage protection specialist has met w/pt. Transportation: Pt states drives self and states no transportation concerns at this time. Family able to assist if needed. DME: has the following DME: shower chair, quad cane, WC, grab bars, nebulizer, and O2 through [employer] @ 2 L/M @ HS only. She has concentrator and 2 portable tanks @ home that she thinks are full. She states family can bring in if needed @ d/c. Pt states she also has a glucometer, but she does not check her BS's any longer and has not used it for almost a year. She reports her PCP checks her HgbA1C and the last result was 4.5. Pt states no need for further DME at this time. HHC/SNF: No history of either. Pt wishes to return home and states has no concerns with going home at time of discharge. She denies need for HHC or OP therapy. She is aware to notify PCP if she is interested in HHC or OP therapy after hospital dc. She voices understanding. CM to follow for any increase in home oxygen needs and any further discharge planning/needs. Pt voices no further concerns/needs at this time. Advised pt to ask for CM if any further questions/concerns/needs arise. Voices understanding. PLAN: Home w/family support and discharge plans in place. CM to follow for increase in O2 needs @ d/c. PT/OT samuel pending. Jorge A BLOOD RN CM
--- NOTE | 2021-01-20 12:01 | PCM.PN.HOSP ---
Documented by User: Dante MCDOWELL 01/20/21 12:14 Subjective Subjective Patient is a 80-year-old female comfortably resting in bed, alert and oriented x3. Patient has no complaints and reports only that she would like to return home. Denies chest pain, shortness of breath, palpitations, hemoptysis, fever, chills, N/V/D. Objective Data Objective Data Vital Signs: Vital Signs Temp Pulse Resp BP Pulse Ox 98.1 F 69 12 64/53 L 96 01/20/21 11:30 01/20/21 11:30 01/20/21 11:30 01/20/21 11:30 01/20/21 11:30 Oxygen Flow Rate (L/min) 2 Oxygen Delivery Method Nasal Cannula Weight: 99 lb Body Mass Index (BMI) 18.1 Intake & Output: Intake and Output for Last 24 Hours 01/18/21 01/19/21 01/20/21 23:59 23:59 23:59 Intake Total 1177 / 1297 120 / 120 Output Total 145 / 145 Balance 1177 / 1152 -25 / -25 Lab / Micro Data Result Diagrams: 01/20/21 05:40 01/20/21 05:40 Labs: Laboratory Results - last 24 hr 01/19/21 01/19/21 01/19/21 12:35 12:35 12:35 WBC 2.3 L RBC 1.83 L Hgb 5.3 L* Hct 17.5 L MCV 95.6 MCH 29.0 MCHC 30.3 L RDW Std Deviation 62.2 H RDW Coeff of Uriel 18.5 H Plt Count 115 L MPV 10.9 Immature Gran % (Auto) 0.900 Neut % (Auto) 77.8 H Lymph % (Auto) 13.5 L [place] % (Auto) 7.4 Eos % (Auto) 0.0 Baso % (Auto) 0.4 Absolute Neuts (auto) 1.8 L Absolute Lymphs (auto) 0.31 L Nucleated RBC % 0 Differential Comment COMMENT Diff Path Review December foll PT 39.3 H INR 4.2 H* APTT 44.7 H Sodium 142 Potassium 3.9 Chloride 110 H Carbon Dioxide 27.0 Anion Gap 5 BUN 32 H Creatinine 1.32 H Estim Creat Clear Calc 26.84 Est GFR (MDRD) Af Amer 50 L Est GFR (MDRD) Non-Af 41 L BUN/Creatinine Ratio 24.2 H Glucose 164 H Calcium 8.4 L Total Bilirubin 0.30 AST 10 L ALT 8 L Alkaline Phosphatase 73 Troponin I < 0.015 Total Protein 6.0 L Albumin 2.8 L Globulin 3.2 Albumin/Globulin Ratio 0.9 Urine Color Urine Clarity Urine pH Ur Specific [place] Urine Protein Urine Glucose (UA) Urine Ketones Urine Occult Blood Urine Nitrite Urine Bilirubin Urine Urobilinogen Ur Leukocyte Esterase Urine RBC Urine WBC Ur Squamous Epith Cells Urine Bacteria Urine Mucus Blood Type Antibody Screen Crossmatch 01/19/21 01/19/21 01/19/21 12:35 12:35 12:35 WBC RBC Hgb Hct MCV MCH MCHC RDW Std Deviation RDW Coeff of Uriel Plt Count MPV Immature Gran % (Auto) Neut % (Auto) Lymph % (Auto) [place] % (Auto) Eos % (Auto) Baso % (Auto) Absolute Neuts (auto) Absolute Lymphs (auto) Nucleated RBC % Differential Comment Diff Path Review PT INR APTT Sodium Potassium Chloride Carbon Dioxide Anion Gap BUN Creatinine Estim Creat Clear Calc Est GFR (MDRD) Af Amer Est GFR (MDRD) Non-Af BUN/Creatinine Ratio Glucose Calcium Total Bilirubin AST ALT Alkaline Phosphatase Troponin I Total Protein Albumin Globulin Albumin/Globulin Ratio Urine Color Urine Clarity Urine pH Ur Specific [place] Urine Protein Urine Glucose (UA) Urine Ketones Urine Occult Blood Urine Nitrite Urine Bilirubin Urine Urobilinogen Ur Leukocyte Esterase Urine RBC Urine WBC Ur Squamous Epith Cells Urine Bacteria Urine Mucus Blood Type A POSITIVE Antibody Screen NEGATIVE Crossmatch See Detail See Detail 01/19/21 01/20/21 01/20/21 22:45 05:40 05:40 WBC 3.6 L RBC 2.52 L Hgb 7.7 L Hct 23.8 L MCV 94.4 MCH 30.6 MCHC 32.4 D RDW Std Deviation 55.0 H RDW Coeff of Uriel 16.9 H Plt Count 108 L MPV 11.2 Immature Gran % (Auto) 0.600 Neut % (Auto) 76.6 H Lymph % (Auto) 14.4 L [place] % (Auto) 7.8 Eos % (Auto) 0.3 Baso % (Auto) 0.3 Absolute Neuts (auto) 2.8 Absolute Lymphs (auto) 0.52 L Nucleated RBC % 0 Differential Comment SCANNED Diff Path Review May foll PT 45.8 H INR 5.0 H* APTT Sodium Potassium Chloride Carbon Dioxide Anion Gap BUN Creatinine Estim Creat Clear Calc Est GFR (MDRD) Af Amer Est GFR (MDRD) Non-Af BUN/Creatinine Ratio Glucose Calcium Total Bilirubin AST ALT Alkaline Phosphatase Troponin I Total Protein Albumin Globulin Albumin/Globulin Ratio Urine Color Yellow Urine Clarity Clear Urine pH 5.0 Ur Specific [place] 1.025 Urine Protein 30 H Urine Glucose (UA) Normal Urine Ketones Negative Urine Occult Blood 10 H Urine Nitrite Positive H Urine Bilirubin 1 H Urine Urobilinogen Normal Ur Leukocyte Esterase 500 H Urine RBC 0 SEEN Urine WBC 5-10 SEEN Ur Squamous Epith Cells 0 SEEN Urine Bacteria 1+ Urine Mucus 0 SEEN Blood Type Antibody Screen Crossmatch 01/20/21 05:40 WBC RBC Hgb Hct MCV MCH MCHC RDW Std Deviation RDW Coeff of Uriel Plt Count MPV Immature Gran % (Auto) Neut % (Auto) Lymph % (Auto) [place] % (Auto) Eos % (Auto) Baso % (Auto) Absolute Neuts (auto) Absolute Lymphs (auto) Nucleated RBC % Differential Comment Diff Path Review PT INR APTT Sodium 141 Potassium 3.7 Chloride 110 H Carbon Dioxide 27.0 Anion Gap 4 L BUN 32 H Creatinine 1.19 H Estim Creat Clear Calc 27.62 Est GFR (MDRD) Af Amer 56 L Est GFR (MDRD) Non-Af 47 L BUN/Creatinine Ratio 26.9 H Glucose 140 H Calcium 8.2 L Total Bilirubin AST ALT Alkaline Phosphatase Troponin I Total Protein Albumin Globulin Albumin/Globulin Ratio Urine Color Urine Clarity Urine pH Ur Specific [place] Urine Protein Urine Glucose (UA) Urine Ketones Urine Occult Blood Urine Nitrite Urine Bilirubin Urine Urobilinogen Ur Leukocyte Esterase Urine RBC Urine WBC Ur Squamous Epith Cells Urine Bacteria Urine Mucus Blood Type Antibody Screen Crossmatch Physical Exam Narrative See subjective. Const alert, oriented x3 and no apparent distress Nutritional Appearance: underweight HEENT head/scalp atraumatic, moist oral mucous membranes and oropharynx normal Head and Scalp: normocephalic Eyes PERRL, EOMs intact bilaterally and conjunctivae normal Neck no lymphadenopathy, supple and no JVD Resp normal respiratory effort, no retractions, no use of accessory muscles and clear to auscultation bilaterally Cardio regular rate, regular rhythm, no murmurs and no JVD GI normal to inspection, nondistended, normoactive bowel sounds, soft to palpation, non-tender and non-distended Extremity normal to inspection, full ROM and no clubbing, cyanosis or edema Skin no rashes or lesions noted, no wounds and skin turgor normal Neuro CN's II-XII intact bilaterally Psych affect normal Assessment & Plan Assessment/Plan (1) Anemia: QUALIFIERS: Anemia type: unspecified type Qualified Code(s): D64.9 - Anemia, unspecified (2) Presence of permanent cardiac pacemaker: (3) History of mitral valve replacement with mechanical valve: (4) Nonrheumatic mitral (valve) insufficiency: (5) GERD (gastroesophageal reflux disease): (6) Hypotension: QUALIFIERS: Hypotension type: hypotension due to hypovolemia Qualified Code(s): I95.89 - Other hypotension; E86.1 - Hypovolemia (7) Pancytopenia: (8) Supratherapeutic INR: PLAN: See subjective for patient presentation. Anticipate discharge home tomorrow. 1) acute on chronic anemia Hemoglobin currently 7.7, after 2 units of PRBCs administered yesterday, up from admission. Currently receiving 2 more units of PRBCs. Follows with Dr. Thomas as an outpatient, unclear etiology of anemia. Plan; trend CBC, continue folic acid supplementation. 2) Supratherapeutic INR INR currently 5.0, up from admission. Will not administer vitamin K due to mechanical mitral valve and risk of making INR subtherapeutic. Goal INR is 2.5-3.5. Plan; as above, coags ordered for a.m, hold home Coumadin. 3) chronic hypotension According to patient her baseline is around 70-90 systolic. Plan; hold furosemide. 4) GERD Continue PPI. DVT prophylaxis -Coumadin on hold due to #2. Patient seen by Dante Aldrich PA-C, under the supervision of Dr. Stinson. Documented by User: Dr. Colin Stinson MD 01/20/21 12:31 Objective Data Lab / Micro Data Result Diagrams: 01/20/21 05:40 01/20/21 05:40 Charges/Coding Addendum Addendum: Hospitalist note: I am seeing this patient in conjunction with Dante Aldrich. I independently seen and examined the patient. Progress note above, laboratory data and imaging studies reviewed and I concur with the above treatment plan. Today, patient feels better. She thinks that her weakness is getting better. Denies chest pain or shortness of breath. Denied being dizzy or lightheaded. Her blood pressure has been borderline, this is chronic, other vital signs are stable. - Physical Exam General: Alert, Oriented x3, Cooperative, No apparent distress, pale. HEENT: Atraumatic, PERRLA, EOMI. Neck: Supple, No JVD, Negative Carotid Bruits, Trachea Midline, Thyroid Normal. Lungs: Diminished breath sounds bilateral, scattered rhonchi. No wheezes or crackles. Cardiovascular: Regular rate, Regular Rhythm, Normal S1, Normal S2, PMI Normal, metallic click, systolic murmur. Abdomen: Bowel Sounds Present, Soft, Non Tender, Non-Distended, No Hepato-splenomegaly. Extremities: No clubbing, No cyanosis, No edema Skin: No rashes, No breakdown Neurological: Cranial nerves are intact, neuro grossly intact Assessment and plan: #1 acute on chronic anemia: Without obvious source of bleeding. Patient has history of chronic recurrent anemia requiring frequent blood transfusion. She has been on Coumadin for mechanical aortic valve. She underwent numerous upper endoscopies and colonoscopies in the past with no obvious source of bleeding. She received 2 packs of packed RBCs. Admission hemoglobin was 5.3 g/dL, it is 7.7 g/dL today. Plan: Transfused 2 months of packed RBCs, repeat H&H after complete blood transfusion, repeat CBC tomorrow morning. #2 Coumadin induced coagulopathy: Patient is on Coumadin for mechanical aortic valve replacement. INR admission was 4.2, it went up to 5 today. Coumadin held. She does have chronic thrombocytopenia as well. Platelet counts are stable. No evidence of active bleeding. Plan to repeat INR tomorrow morning. #3 chronic hypotension: She is at her baseline, asymptomatic. Plan to monitor. #4 other chronic medical problems: Stable, continue current medications as above. This note was generated with Dragon dictation software. It may contain incorrect words, spelling, and punctuation that were not noted in checking the note before signing. Visit Charges Inpatient E&M: 76390 Subs Hosp L2
[2021-01-20 12:12] LABS: Pathologist Review Reviewed
[2021-01-20 12:12] LABS: Pathologist Review Reviewed
--- NOTE | 2021-01-20 13:07 | CASEMGMT ---
SW received referral from ANDRES ANGUIANO for financial assistance and advance directives. STACI met with patient, introduced self and role at [facility]. SW discussed Medicare assistance programs and it does not appear as though she would qualify for any assistance due to her income being over. She only has Medicare A right now. She was on her 's insurance, but he . She was covered through November. She is being told that she has to wait until open enrollment to sign up for B and prescription coverage. This does not sound accurate. STACI gave her a pamphlet for [place] [facility] [employer] Information Program (OSHIIP). SW encouraged her to call them regarding these questions. SW also asked about advance directives. She wanted a copy of the documents, but did not want to complete them right now. Patient lost her daughter and recently. Patient said she has a great support system and she feels she is managing fine. She thanked STACI for the information. Yaz Soto NERVE SPECIALIST BARBARA
[2021-01-20 19:48] LABS: Hematocrit 35.6 % (37-47); Hemoglobin 11.5 g/dL (12.0-15.0)
[2021-01-20] MEDS: Metoprolol(XL)Succ 25 MG Tablet 12.5 MG PO (21:05)
[2021-01-20] MEDS: Ferrous Sulfate 325 MG Tablet 650 MG PO (21:05)
[2021-01-21 02:59] VITALS: BP 105/39; PULSE 70; RESP 18; TEMP 36.2; O2SAT 97
[2021-01-21] MEDS: Levothyroxine 100 MCG Tablet PO (05:42)
[2021-01-21 06:04] LABS: Absolute Lymphocyte Count 0.53 X10^3/uL (0.83-4.51); Absolute Neutrophil Count 2.5 X10^3/uL (2.0-7.7); Basophil# 0.02 X10^3/uL; Basophil% 0.6 % (0-1); Hematocrit 30.9 % (37-47); Hemoglobin 10.1 g/dL (12.0-15.0); Lymphocyte # 0.53 X10^3/ul (0.83-4.51); Mean Corp Hgb Conc 32.7 g/dL (32-36); Mean Corpuscular Hgb 30.7 pg (27.0-32.0); Mean Corpuscular Volume 93.9 fL (81-99); Mean Platelet Vol. 10.7 fl (6.2-12.0); Monocyte# 0.26 X10^3/uL; Monocyte% 7.8 % (0-10); NRBC Flagged by Analyzer 0 % (0-5); Neutrophil # 2.49 X10^3/uL (2.7-7.7); POSITIVE COUNT YES; POSITIVE DIFFERENTIAL YES; Platelet Count 83 K/mm3 (150-450); RBC Distribution Width CV 17.3 % (11.6-14.6); RBC Distribution Width SD 55.6 fl (35.1-43.9); Red Blood Count 3.29 M/mm3 (4.2-5.4); White Blood Count 3.3 K/mm3 (4.4-11.0)
[2021-01-21 06:05] LABS: Differential Indicated SCAN CRITERIA MET
[2021-01-21 06:17] LABS: International Normalized Ratio 3.5; Prothrombin Time (Protime)PT. 34.7 SECONDS (11.7-14.9)
[2021-01-21 07:01] LABS: Differential Comment SCANNED
[2021-01-21 07:02] VITALS: O2SAT 96
[2021-01-21 07:02] LABS: Platelet Estimate SLT DEC (ADEQ)
[2021-01-21] MEDS: Venlafaxine HCl 75 MG Tablet 37.5 MG PO (08:57)
[2021-01-21] MEDS: Cyanocobalamin 500 MCG Tablet 2500 MCG PO (08:57)
[2021-01-21] MEDS: Cholecalciferol (VIT D3) 25 MCG TABLET (1,000 UNITS) PO (08:57)
[2021-01-21] MEDS: Magnesium Chloride 64 MG Delay Rel.Tablet 128 MG PO (08:57)
[2021-01-21] MEDS: Pantoprazole Sodium 40 MG Tablet PO (08:57)
[2021-01-21] MEDS: Folic Acid 1 MG Tablet PO (08:57)
[2021-01-21] MEDS: Potassium Chloride Oral Tablet 20 MEQ PO (08:57)
[2021-01-21 09:00] VITALS: BP 95/47; PULSE 70; RESP 18; TEMP 36.4; O2SAT 92
[2021-01-21 09:04] VITALS: PULSE 70
[2021-01-21] MEDS: Metoprolol(XL)Succ 25 MG Tablet 12.5 MG PO (09:04)
--- NOTE | 2021-01-21 09:09 | CASEMGMT ---
Addendum entered by Vicente Ayers 01/21/21 10:34: Pt qualifies for a Palliative referral per the [facility] palliative screening tool at this time. Dr Ozunaah aware but is not agreeable to Palliative referral at this time. Jorge A BLOOD RN, CM Original Note: RN SILVIO NOTE: PT/OT evals reviewed. PT recommends additional therapy. RN CM to room. Pt resting in bed. Son @ bedside. Pt confirms she still does not wish for HHC or OP therapy and reinforced w/her if she decides later she is interested in either, to talk w/her PCP. She voices understanding. Pt voices appreciation of the care she has received while @ [facility] stating that the nurses have been just wonderful. I've been spoiled. They have taken such good care of me. Jorge A BLOOD RN CM
--- NOTE | 2021-01-21 11:13 | PCM.DC ---
Discharge Instructions Diet Discharge Diet: No restrictions Activity Discharge Activity: Return to Normal Activity Follow Up Care Please Follow Up With: Primary care provider When: Within the next two weeks. Test Results: Test results from this visit will be discussed in further detail at your follow-up appointment, if applicable. Discharge Plan Admission Admit Date/Time: 01/20/21 09:01 Primary Reason for Your Visit: Anemia Attending Provider: Colin Stinson Primary Care Provider: Kodak Muñoz Discharge Orders/Prescriptions Prescriptions: Continued ferrous sulfate 325 MG tablet 650 mg PO QHS RF: 0 folic acid 1 MG tablet 1 mg PO DAILY@0800 RF: 0 cyanocobalamin (vitamin B-12) 2,500 MCG tablet 2,500 mcg PO DAILY RF: 0 magnesium 250 MG tablet 250 mg PO DAILY RF: 0 cholecalciferol (vitamin D3) 1,000 UNIT capsule 1,000 unit PO DAILY RF: 0 venlafaxine 37.5 MG tablet 37.5 mg PO BID RF: 0 warfarin 1 MG tablet 2 mg PO DAILY RF: 0 darbepoetin peace in polysorbat 200 mcg/0.4 mL syringe 0.4 ml IM TH RF: 0 pantoprazole 40 MG tablet 40 mg PO BID 30 Days Qty: 60 RF: 0 hydrocodone-acetaminophen 5-325 mg tablet 0.5 - 1 tab PO Q8H PRN (Reason: Pain) RF: 0 levothyroxine 100 mcg tablet 100 mcg PO DAILY RF: 0 potassium chloride 20 mEq tablet,ER particles/crystals 20 meq PO DAILY RF: 0 metoprolol succinate 25 mg tablet extended release 24 hr 12.5 mg PO BID 90 Days Qty: 90 RF: 3 furosemide 20 mg tablet 40 mg PO DAILY RF: 0 Referrals / Follow Up: Edd Thomas MD [STAFF PHYSICIAN] - Kodak Muñoz MD [Primary Care Provider] - Disposition Disposition (needs filled in before D/C Order can be placed): Home, self care
[2021-01-21 12:00] LABS: Pathologist Review Reviewed
--- NOTE | 2021-01-21 14:42 | DS.PCM_ITS ---
Documented by User: Dante MCDOWELL 01/21/21 14:46 Providers Date of Admission: 01/20/21 Primary Care Physician: Dr. Kodak Muñoz MD Reason For Visit: ANEMIA Diagnosis Discharge Diagnosis (1) Anemia: Status: Acute Code(s): D64.9 - Anemia, unspecified Qualifiers: Anemia type: unspecified type Qualified Code(s): D64.9 - Anemia, unspecified (2) Presence of permanent cardiac pacemaker: Status: Resolved Code(s): Z95.0 - Presence of cardiac pacemaker (3) History of mitral valve replacement with mechanical valve: Status: Resolved Code(s): Z95.2 - Presence of prosthetic heart valve (4) Nonrheumatic mitral (valve) insufficiency: Status: Chronic Code(s): I34.0 - Nonrheumatic mitral (valve) insufficiency (5) GERD (gastroesophageal reflux disease): Status: Acute Code(s): K21.9 - Gastro-esophageal reflux disease without esophagitis (6) Hypotension: Status: Chronic Code(s): I95.9 - Hypotension, unspecified Qualifiers: Hypotension type: hypotension due to hypovolemia Qualified Code(s): I95.89 - Other hypotension; E86.1 - Hypovolemia (7) Pancytopenia: Status: Chronic Code(s): D61.818 - Other pancytopenia (8) Supratherapeutic INR: Status: Acute Code(s): R79.1 - Abnormal coagulation profile Medications at Discharge Home Medications ferrous sulfate 650 mg PO QHS 04/02/15 folic acid 1 mg PO DAILY@0800 04/30/15 cyanocobalamin (vitamin B-12) 2,500 mcg PO DAILY 06/10/16 magnesium 250 mg PO DAILY 05/24/17 cholecalciferol (vitamin D3) 1,000 unit PO DAILY 04/07/19 venlafaxine 37.5 mg PO BID 04/07/19 darbepoetin peace in polysorbat 0.4 ml IM TH 04/29/20 warfarin 2 mg PO DAILY 04/29/20 pantoprazole 40 mg PO BID 30 Days #60 tab 06/21/20 metoprolol succinate 25 mg tablet,extended release 24 hr 12.5 mg PO BID 90 Days #90 tab 09/03/20 furosemide 20 mg tablet 40 mg PO DAILY tab 01/04/21 hydrocodone-acetaminophen 0.5 - 1 tab PO Q8H PRN 01/19/21 levothyroxine 100 mcg PO DAILY 01/19/21 potassium chloride 20 meq PO DAILY 01/19/21 Hospital Course Summary of Care Provided Minutes Spent on Discharge: 35 Hospital Course: 1) acute on chronic anemia Hemoglobin currently 10.1, after receiving 4 units of PRBCs throughout admission. Follows with Dr. Thomas as an outpatient, unclear etiology of anemia. Plan; follow-up with Dr. Thomas within the next 2 weeks. 2) Supratherapeutic INR Resolved, currently 3.5. Resume Coumadin on 01/22. 3) chronic hypotension Stable. 4) GERD Continue PPI. Patient seen by Dante Aldrich PA-C, under the supervision of Dr. Stinson. Physical Exam Narrative Patient is a 80-year-old female comfortably resting in bed, alert and orient x3. Patient denies any progression of symptoms from yesterday. Denies chest pain, shortness of breath, palpitations, hemoptysis, sputum production, fever, chills, N/V/D. Const alert, oriented x3 and no apparent distress HEENT normocephalic, head/scalp atraumatic and hearing grossly normal bilaterally Eyes PERRL, EOMs intact bilaterally and conjunctivae normal Neck no lymphadenopathy, supple and no JVD Resp normal respiratory effort, no retractions, no use of accessory muscles and clear to auscultation bilaterally Cardio regular rate, regular rhythm, no murmurs and no JVD GI normal to inspection, nondistended, normoactive bowel sounds, soft to palpation, non-tender and non-distended Extremity normal to inspection, full ROM and no clubbing, cyanosis or edema Skin no rashes or lesions noted, no wounds and skin turgor normal Neuro CN's II-XII intact bilaterally Psych affect normal Weight / BMI Weight Weight: 99 lb Body Mass Index (BMI) 18.1 ABG / Lab / Microbiology Data Result Diagrams: 01/21/21 05:10 01/20/21 05:40 Laboratory: Laboratory Results - last 24 hr 01/19/21 01/20/21 01/21/21 12:35 19:35 05:10 WBC 3.3 L RBC 3.29 L Hgb 11.5 L 10.1 L Hct 35.6 L 30.9 L MCV 93.9 MCH 30.7 MCHC 32.7 RDW Std Deviation 55.6 H RDW Coeff of Uriel 17.3 H Plt Count 83 L MPV 10.7 Immature Gran % (Auto) 0.600 Neut % (Auto) 75.0 H Lymph % (Auto) 16.0 L [place] % (Auto) 7.8 Eos % (Auto) 0.0 Baso % (Auto) 0.6 Absolute Neuts (auto) 2.5 Absolute Lymphs (auto) 0.53 L Nucleated RBC % 0 Differential Comment SCANNED Diff Path Review Reviewed Platelet Estimate SLT DEC PT INR Crossmatch See Detail 01/21/21 05:10 WBC RBC Hgb Hct MCV MCH MCHC RDW Std Deviation RDW Coeff of Uriel Plt Count MPV Immature Gran % (Auto) Neut % (Auto) Lymph % (Auto) [place] % (Auto) Eos % (Auto) Baso % (Auto) Absolute Neuts (auto) Absolute Lymphs (auto) Nucleated RBC % Differential Comment Diff Path Review Platelet Estimate PT 34.7 H INR 3.5 Crossmatch D/C Instructions Discharge Diet: No restrictions Please Follow Up With: Kodak Muñoz MD When: Within the next two weeks. Meaningful Use Info Meaningful Use Diagnoses (Choose all that apply): None applicable Discharge Plan Admission Admit Date/Time: 01/20/21 09:01 Primary Reason for Your Visit: Anemia Attending Provider: Colin Stinson Primary Care Provider: Kodak Muñoz Discharge Orders/Prescriptions Prescriptions: Continued ferrous sulfate 325 MG tablet 650 mg PO QHS RF: 0 folic acid 1 MG tablet 1 mg PO DAILY@0800 RF: 0 cyanocobalamin (vitamin B-12) 2,500 MCG tablet 2,500 mcg PO DAILY RF: 0 magnesium 250 MG tablet 250 mg PO DAILY RF: 0 cholecalciferol (vitamin D3) 1,000 UNIT capsule 1,000 unit PO DAILY RF: 0 venlafaxine 37.5 MG tablet 37.5 mg PO BID RF: 0 warfarin 1 MG tablet 2 mg PO DAILY RF: 0 darbepoetin peace in polysorbat 200 mcg/0.4 mL syringe 0.4 ml IM TH RF: 0 pantoprazole 40 MG tablet 40 mg PO BID 30 Days Qty: 60 RF: 0 hydrocodone-acetaminophen 5-325 mg tablet 0.5 - 1 tab PO Q8H PRN (Reason: Pain) RF: 0 levothyroxine 100 mcg tablet 100 mcg PO DAILY RF: 0 potassium chloride 20 mEq tablet,ER particles/crystals 20 meq PO DAILY RF: 0 metoprolol succinate 25 mg tablet extended release 24 hr 12.5 mg PO BID 90 Days Qty: 90 RF: 3 furosemide 20 mg tablet 40 mg PO DAILY RF: 0 Referrals / Follow Up: Martin Galvan MD [STAFF PHYSICIAN] - 04/06/21 1:15 pm Eddie Mendoza MD [STAFF PHYSICIAN] - 04/07/21 2:00 pm ([facility]- Pacer check ) Edd Thomas MD [STAFF PHYSICIAN] - 01/27/21 8:45 am (0845 for labs 0915 for injection ) Kodak Muñoz MD [Primary Care Provider] - 02/11/21 10:40 am Disposition Disposition (needs filled in before D/C Order can be placed): Home, self care Documented by User: Dr. Colin Stinson MD 01/21/21 15:01 Providers Date of Admission: 01/20/21 Reason For Visit: ANEMIA Medications at Discharge Home Medications ferrous sulfate 650 mg PO QHS 04/02/15 folic acid 1 mg PO DAILY@0800 04/30/15 cyanocobalamin (vitamin B-12) 2,500 mcg PO DAILY 06/10/16 magnesium 250 mg PO DAILY 05/24/17 cholecalciferol (vitamin D3) 1,000 unit PO DAILY 04/07/19 venlafaxine 37.5 mg PO BID 04/07/19 darbepoetin peace in polysorbat 0.4 ml IM TH 04/29/20 warfarin 2 mg PO DAILY 04/29/20 pantoprazole 40 mg PO BID 30 Days #60 tab 06/21/20 metoprolol succinate 25 mg tablet,extended release 24 hr 12.5 mg PO BID 90 Days #90 tab 09/03/20 furosemide 20 mg tablet 40 mg PO DAILY tab 01/04/21 hydrocodone-acetaminophen 0.5 - 1 tab PO Q8H PRN 01/19/21 levothyroxine 100 mcg PO DAILY 01/19/21 potassium chloride 20 meq PO DAILY 01/19/21 ABG / Lab / Microbiology Data Result Diagrams: 01/21/21 05:10 01/20/21 05:40 Discharge Plan Admission Admit Date/Time: 01/20/21 09:01 Primary Reason for Your Visit: Anemia Attending Provider: Colin Stinson Primary Care Provider: Kodak Muñoz Discharge Orders/Prescriptions Prescriptions: Continued ferrous sulfate 325 MG tablet 650 mg PO QHS RF: 0 folic acid 1 MG tablet 1 mg PO DAILY@0800 RF: 0 cyanocobalamin (vitamin B-12) 2,500 MCG tablet 2,500 mcg PO DAILY RF: 0 magnesium 250 MG tablet 250 mg PO DAILY RF: 0 cholecalciferol (vitamin D3) 1,000 UNIT capsule 1,000 unit PO DAILY RF: 0 venlafaxine 37.5 MG tablet 37.5 mg PO BID RF: 0 warfarin 1 MG tablet 2 mg PO DAILY RF: 0 darbepoetin peace in polysorbat 200 mcg/0.4 mL syringe 0.4 ml IM TH RF: 0 pantoprazole 40 MG tablet 40 mg PO BID 30 Days Qty: 60 RF: 0 hydrocodone-acetaminophen 5-325 mg tablet 0.5 - 1 tab PO Q8H PRN (Reason: Pain) RF: 0 levothyroxine 100 mcg tablet 100 mcg PO DAILY RF: 0 potassium chloride 20 mEq tablet,ER particles/crystals 20 meq PO DAILY RF: 0 metoprolol succinate 25 mg tablet extended release 24 hr 12.5 mg PO BID 90 Days Qty: 90 RF: 3 furosemide 20 mg tablet 40 mg PO DAILY RF: 0 Referrals / Follow Up: Martin Galvan MD [STAFF PHYSICIAN] - 04/06/21 1:15 pm Eddie Mendoza MD [STAFF PHYSICIAN] - 04/07/21 2:00 pm ([facility]- Pacer check ) Edd Thomas MD [STAFF PHYSICIAN] - 01/27/21 8:45 am (0845 for labs 0915 for injection ) Kodak Muñoz MD [Primary Care Provider] - 02/11/21 10:40 am Disposition Disposition (needs filled in before D/C Order can be placed): Home, self care Charges/Coding Addendum Addendum: Hospitalist note: Discharge summary above reviewed and I concur with the above discharge and treatment plan. Patient presented to the emergency room because of generalized weakness and mild shortness of breath in context of history of anemia, had extensive work-up for GI bleeding as outpatient with multiple endoscopies including capsule endoscopy that failed to identify the source of bleeding. Patient has been getting multiple blood transfusions in the past. On admission, patient was found to have hemoglobin of 5.3, per deciliter. Patient denied any bleeding from body orifices. Denied epistaxis, hemoptysis, hematemesis, he matochezia, melena or hematuria. She does have a history of mechanical aortic valve replacement and she has been on Coumadin. On admission, INR was 4.2 and it went up to 5.0. No treatment was given for this high INR. Patient received a total of 4 units of packed RBCs. Hemoglobin upon discharge was 10.1 g/dL. Her symptoms significantly improved. Her vital signs are stable. INR went down to 3.5 which is at goal. Patient discharged home in a stable medical condition, continued on her previous home medications including same doses of Coumadin and iron supplement, recommended follow-up with PCP in 1 week. Patient also follows up with hematology as outpatient. - Physical Exam General: Alert, Oriented x3, Cooperative, No apparent distress, pale. HEENT: Atraumatic, PERRLA, EOMI. Neck: Supple, No JVD, Negative Carotid Bruits, Trachea Midline, Thyroid Normal. Lungs: Diminished breath sounds bilateral, scattered rhonchi. No wheezes or crackles. Cardiovascular: Regular rate, Regular Rhythm, Normal S1, Normal S2, PMI Normal, metallic click, systolic murmur. Abdomen: Bowel Sounds Present, Soft, Non Tender, Non-Distended, No Hepato- splenomegaly. Extremities: No clubbing, No cyanosis, No edema Skin: No rashes, No breakdown Neurological: Cranial nerves are intact, neuro grossly intact Visit Charges Inpatient E&M: 11874 Disch Hosp
--- NOTE | 2021-01-24 13:44 | NURSING ---
JASMYN DC F/u Call: DC Date: 01/21/21 DC Diagnosis: Discharge Diagnosis (1) Anemia (2) Presence of permanent cardiac pacemaker (3) History of mitral valve replacement with mechanical valve (4) Nonrheumatic mitral (valve) insufficiency (5) GERD (gastroesophageal reflux disease) (6) Hypotension (7) Pancytopenia (8) Supratherapeutic INR DC Disposition: Home Lace/Strata: 05/15 Called patient listed cell phone, answered. Introduced self and role. Patient states that she is doing better and feels like a new woman. States has f/u with Dr Mendoza in a couple weeks and will be calling his office to discuss medication anticoag levels and if needing to adjust her dose. Denies any issues, concerns or questions with [facility], medications or f/u. Thanked patient for choosing [facility] for care and conversation ended. JASMYN Hunter
== END 2021-01-21 12:39 | disposition home or self-care (01) | DRG 812 ==
LOC: ED 14:05 → PCU 15:03
PROVIDERS: Physician Assistant; Emergency Provider Emergency Medicine; PCP Internal Medicine; Visit Provider Hospitalist
DX: D64.9 Anemia, unspecified (principal); I48.20 Chronic atrial fibrillation, unspecified; E44.0 Moderate protein-calorie malnutrition; Z95.0 Presence of cardiac pacemaker; Z95.2 Presence of prosthetic heart valve; I34.0 Nonrheumatic mitral (valve) insufficiency; K21.9 Gastro-esophageal reflux disease without esophagitis; I95.89 Other hypotension; D61.818 Other pancytopenia; E86.1 Hypovolemia; R79.1 Abnormal coagulation profile; Z79.01 Long term (current) use of 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; T45.515A Adverse effect of 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, initial encounter; E11.9 Type 2 diabetes mellitus without complications; E78.5 Hyperlipidemia, unspecified; J44.9 Chronic obstructive pulmonary disease, unspecified
CPT/HCPCS: 36415; 80048; 80053; 81001; 84484; 85014; 85018; 85025; 85610; 85730; 86850; 86900; 86901; 86902; 86920; 86922; 93005; 97110; 97162; 97166; 97530; 97535; 97802; 99285; J7030; J7040; P9016; A4216

== ENCOUNTER 2021-02-07 10:38 | Outpatient (RCR) | payer SELFPAY ==
[2021-01-07 11:32] VITALS: BMI 20.8
[2021-01-11 12:01] LABS: International Normalized Ratio 2.3; Prothrombin Time (Protime)PT. 24.5 SECONDS (11.7-14.9)
[2021-01-11 12:24] LABS: Anion Gap 5 (5-15); BUN 19 mg/dL (7-18); Calcium,Total 8.7 mg/dL (8.5-10.1); Chloride 104 mmol/L (98-107); Creatinine, Serum 1.58 mg/dL (0.55-1.02); EST Glomerular Filtration Rate 34 mL/min (>60); Est Glom Filt Rate - Afr Amer 41 mL/min (>60); Glucose 161 mg/dL (74-106); Potassium 3.8 mmol/L (3.5-5.1); Sodium Level 139 mmol/L (136-145)
[2021-01-25 12:41] LABS: International Normalized Ratio 1.6; Prothrombin Time (Protime)PT. 17.9 SECONDS (11.7-14.9)
[2021-01-27 09:39] LABS: International Normalized Ratio 1.6; Prothrombin Time (Protime)PT. 18.5 SECONDS (11.7-14.9)
[2021-01-31 13:04] LABS: International Normalized Ratio 2.5; Prothrombin Time (Protime)PT. 26.3 SECONDS (11.7-14.9)
[2021-02-07 11:51] LABS: Prothrombin Time (Protime)PT. 41.2 SECONDS (11.7-14.9)
[2021-02-07 12:13] LABS: International Normalized Ratio 4.4
== END 2021-02-07 18:00 | disposition home or self-care (01) ==
LOC: LAB 10:38
PROVIDERS: Family Provider Internal Medicine; PCP Internal Medicine; Referring Provider Internal Medicine Cardiovascular Disease; Visit Provider Internal Medicine Cardiovascular Disease
DX: Z95.2 Presence of prosthetic heart valve (principal); Z79.01 Long term (current) use of 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; E87.6 Hypokalemia; I50.9 Heart failure, unspecified; R60.9 Edema, unspecified; R06.02 Shortness of breath
CPT/HCPCS: 36415; 80048; 85610

== ENCOUNTER 2021-03-09 10:41 | Outpatient (RCR) | payer MEDICARE, SELFPAY ==
[2021-01-19 16:02] VITALS: BMI 18.1
[2021-02-11 11:30] LABS: Prothrombin Time (Protime)PT. 41.1 SECONDS (11.7-14.9)
[2021-02-11 11:37] LABS: International Normalized Ratio 4.4
[2021-02-16 11:55] LABS: International Normalized Ratio 3.1; Prothrombin Time (Protime)PT. 30.7 SECONDS (11.7-14.9)
[2021-03-02 10:44] LABS: International Normalized Ratio 3.8; Prothrombin Time (Protime)PT. 36.3 SECONDS (11.7-14.9)
[2021-03-09 11:53] LABS: International Normalized Ratio 3.5; Prothrombin Time (Protime)PT. 34.2 SECONDS (11.7-14.9)
== END 2021-03-09 18:00 | disposition home or self-care (01) ==
LOC: LAB 10:41
PROVIDERS: Family Provider Internal Medicine; PCP Internal Medicine; Referring Provider Internal Medicine Cardiovascular Disease; Visit Provider Internal Medicine Cardiovascular Disease
DX: Z95.2 Presence of prosthetic heart valve (principal); Z79.01 Long term (current) use of 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
CPT/HCPCS: 36415; 85610

== ENCOUNTER → 2021-03-11 08:18 | Outpatient (CLI) | payer SELFPAY ==
[2021-01-19 16:02] VITALS: BMI 18.1
[2021-03-11] VITALS (7 sets, daily range): BP systolic 64–101; BP diastolic 38–54; PULSE 69–71; RESP 16; TEMP 36.3–36.7; O2SAT 91–98; BMI 20.8
[2021-03-11] MEDS: Acetaminophen 325 MG Tablet 650 MG PO (08:44)
[2021-03-11] MEDS: 0.9% NaCl Peripheral Flush Adult/Peds IV (08:44)
== END ==
PROVIDERS: PCP Internal Medicine; Referring Provider Internal Medicine Hematology & Oncology; Visit Provider Internal Medicine Hematology & Oncology
DX: Z51.89 Encounter for other specified aftercare (principal); N18.9 Chronic kidney disease, unspecified; K92.2 Gastrointestinal hemorrhage, unspecified
CPT/HCPCS: 36430; 86850; 86900; 86901; 86920; 86922; J7040; P9016; A4216

== ENCOUNTER 2021-04-11 09:48 | Outpatient (RCR) | payer SELFPAY ==
[2021-03-11 08:41] VITALS: BMI 20.8
[2021-03-14 12:49] LABS: International Normalized Ratio 3.4; Prothrombin Time (Protime)PT. 33.8 SECONDS (11.7-14.9)
[2021-03-21 10:41] LABS: Hematocrit 37.6 % (37-47); Hemoglobin 11.1 g/dL (12.0-15.0); POSITIVE COUNT YES
[2021-03-21 10:49] LABS: International Normalized Ratio 2.6; Prothrombin Time (Protime)PT. 26.8 SECONDS (11.7-14.9)
[2021-03-28 12:35] LABS: International Normalized Ratio 2.9; Prothrombin Time (Protime)PT. 29.7 SECONDS (11.7-14.9)
[2021-04-04 10:54] LABS: International Normalized Ratio 3.3; Prothrombin Time (Protime)PT. 32.9 SECONDS (11.7-14.9)
[2021-04-11 10:27] LABS: International Normalized Ratio 3.4; Prothrombin Time (Protime)PT. 33.4 SECONDS (11.7-14.9)
== END 2021-04-11 18:00 | disposition home or self-care (01) ==
LOC: LAB 09:48
PROVIDERS: Physician Assistant Medical; Family Provider Internal Medicine; PCP Internal Medicine; Referring Provider Internal Medicine Cardiovascular Disease; Visit Provider Internal Medicine Cardiovascular Disease
DX: Z95.2 Presence of prosthetic heart valve (principal); Z79.01 Long term (current) use of 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
CPT/HCPCS: 36415; 85014; 85018; 85610

== ENCOUNTER 2021-05-10 09:52 | Outpatient (RCR) | payer SELFPAY ==
[2021-04-12 19:40] VITALS: BMI 20.8
[2021-04-20 10:38] LABS: International Normalized Ratio 1.9; Prothrombin Time (Protime)PT. 21.3 SECONDS (11.7-14.9)
[2021-04-25 11:23] LABS: International Normalized Ratio 3.1; Prothrombin Time (Protime)PT. 30.8 SECONDS (11.7-14.9)
[2021-05-02 10:37] LABS: International Normalized Ratio 3.4; Prothrombin Time (Protime)PT. 33.7 SECONDS (11.7-14.9)
[2021-05-10 11:20] LABS: International Normalized Ratio 3.4; Prothrombin Time (Protime)PT. 33.1 SECONDS (11.7-14.9)
== END 2021-05-10 18:00 | disposition home or self-care (01) ==
LOC: LAB 09:52
PROVIDERS: Family Provider Internal Medicine; PCP Internal Medicine; Referring Provider Internal Medicine Cardiovascular Disease; Visit Provider Internal Medicine Cardiovascular Disease
DX: Z95.2 Presence of prosthetic heart valve (principal); Z79.01 Long term (current) use of 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
CPT/HCPCS: 36415; 85610

== ENCOUNTER 2021-06-07 09:15 | Outpatient (RCR) | payer SELFPAY ==
[2021-05-12 18:26] VITALS: BMI 20.8
[2021-05-17 10:16] LABS: Prothrombin Time (Protime)PT. 30.1 SECONDS (11.7-14.9)
[2021-05-31 11:06] LABS: International Normalized Ratio 2.2; Prothrombin Time (Protime)PT. 23.4 SECONDS (11.7-14.9)
[2021-06-07 10:02] LABS: Prothrombin Time (Protime)PT. 21.9 SECONDS (11.7-14.9)
== END 2021-06-12 02:49 | disposition home or self-care (01) ==
LOC: LAB 09:15
PROVIDERS: Family Provider Internal Medicine; PCP Internal Medicine; Referring Provider Internal Medicine Cardiovascular Disease; Visit Provider Internal Medicine Cardiovascular Disease
DX: Z95.2 Presence of prosthetic heart valve (principal); Z79.01 Long term (current) use of 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
CPT/HCPCS: 36415; 85610

== ENCOUNTER 2021-07-12 09:53 | Outpatient (RCR) | payer SELFPAY ==
[2021-06-12 02:49] VITALS: BMI 20.8
[2021-06-14 10:54] LABS: International Normalized Ratio 2.5; Prothrombin Time (Protime)PT. 25.8 SECONDS (11.7-14.9)
[2021-06-21 10:10] LABS: International Normalized Ratio 2.9; Prothrombin Time (Protime)PT. 29.4 SECONDS (11.7-14.9)
[2021-07-05 11:51] LABS: International Normalized Ratio 3.9; Prothrombin Time (Protime)PT. 37.3 SECONDS (11.7-14.9)
[2021-07-12 10:54] LABS: International Normalized Ratio 4.2; Prothrombin Time (Protime)PT. 39.9 SECONDS (11.7-14.9)
== END 2021-07-12 18:00 | disposition home or self-care (01) ==
LOC: LAB 09:53
PROVIDERS: Family Provider Internal Medicine; PCP Internal Medicine; Referring Provider Internal Medicine Cardiovascular Disease; Visit Provider Internal Medicine Cardiovascular Disease
DX: Z95.2 Presence of prosthetic heart valve (principal); Z79.01 Long term (current) use of 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
CPT/HCPCS: 36415; 85610

== ENCOUNTER 2021-08-09 09:32 | Outpatient (RCR) | payer SELFPAY ==
[2021-07-13 01:58] VITALS: BMI 20.8
[2021-07-15 10:05] LABS: International Normalized Ratio 3.1; Prothrombin Time (Protime)PT. 31.4 SECONDS (11.7-14.9)
[2021-07-26 14:20] LABS: Prothrombin Time (Protime)PT. 62.2 SECONDS (11.7-14.9)
[2021-07-26 14:27] LABS: International Normalized Ratio 7.4
[2021-07-28 10:18] LABS: International Normalized Ratio 6.3; Prothrombin Time (Protime)PT. 54.7 SECONDS (11.7-14.9)
[2021-08-01 10:21] LABS: International Normalized Ratio 3.6
[2021-08-09 10:50] LABS: International Normalized Ratio 1.9; Prothrombin Time (Protime)PT. 21.4 SECONDS (11.7-14.9)
== END 2021-08-13 18:00 | disposition home or self-care (01) ==
LOC: LAB 09:32
PROVIDERS: Family Provider Internal Medicine; PCP Internal Medicine; Referring Provider Internal Medicine Cardiovascular Disease; Visit Provider Internal Medicine Cardiovascular Disease
DX: Z95.2 Presence of prosthetic heart valve (principal); Z79.01 Long term (current) use of 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
CPT/HCPCS: 36415; 85610

== ENCOUNTER 2021-08-30 09:12 | Outpatient (RCR) | payer SELFPAY ==
[2021-08-14 03:35] VITALS: BMI 20.8
[2021-08-16 11:55] LABS: International Normalized Ratio 2.2; Prothrombin Time (Protime)PT. 23.9 SECONDS (11.7-14.9)
[2021-08-30 10:40] LABS: International Normalized Ratio 2.5; Prothrombin Time (Protime)PT. 25.9 SECONDS (11.7-14.9)
== END 2021-09-12 18:00 | disposition home or self-care (01) ==
LOC: LAB 09:12
PROVIDERS: Family Provider Internal Medicine; PCP Internal Medicine; Referring Provider Internal Medicine Cardiovascular Disease; Visit Provider Internal Medicine Cardiovascular Disease
DX: Z95.3 Presence of xenogenic heart valve (principal); Z79.01 Long term (current) use of 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
CPT/HCPCS: 36415; 85610

== ENCOUNTER 2021-09-27 09:31 | Outpatient (RCR) | payer SELFPAY ==
[2021-09-12 22:07] VITALS: BMI 20.8
[2021-09-13 11:27] LABS: International Normalized Ratio 2.5; Prothrombin Time (Protime)PT. 26.5 SECONDS (11.7-14.9)
[2021-09-27 10:10] LABS: International Normalized Ratio 2.2; Prothrombin Time (Protime)PT. 23.5 SECONDS (11.7-14.9)
== END 2021-09-27 18:00 | disposition home or self-care (01) ==
LOC: LAB 09:31
PROVIDERS: Family Provider Internal Medicine; PCP Internal Medicine; Referring Provider Internal Medicine Cardiovascular Disease; Visit Provider Internal Medicine Cardiovascular Disease
DX: Z95.2 Presence of prosthetic heart valve (principal); Z79.01 Long term (current) use of 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
CPT/HCPCS: 36415; 85610

== ENCOUNTER 2021-11-10 09:03 | Outpatient (RCR) | payer SELFPAY ==
[2021-10-11 09:01] VITALS: BMI 20.8
[2021-10-12 11:49] LABS: International Normalized Ratio 2.5; Prothrombin Time (Protime)PT. 26.4 SECONDS (11.7-14.9)
[2021-10-25 09:56] LABS: International Normalized Ratio 2.2; Prothrombin Time (Protime)PT. 23.9 SECONDS (11.7-14.9)
[2021-11-08 10:54] LABS: Prothrombin Time (Protime)PT. 45.5 SECONDS (11.7-14.9)
[2021-11-10 10:55] LABS: Prothrombin Time (Protime)PT. 39.3 SECONDS (11.7-14.9)
[2021-11-10 10:57] LABS: International Normalized Ratio 4.2
== END 2021-11-10 18:00 | disposition home or self-care (01) ==
LOC: LAB 09:03
PROVIDERS: Family Provider Internal Medicine; PCP Internal Medicine; Referring Provider Internal Medicine Cardiovascular Disease; Visit Provider Internal Medicine Cardiovascular Disease
DX: Z95.3 Presence of xenogenic heart valve (principal); Z79.01 Long term (current) use of 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
CPT/HCPCS: 36415; 85610

== ENCOUNTER 2021-11-18 09:02 | Outpatient (CLI) | payer SELFPAY ==
[2021-11-18 09:11] VITALS: BP 77/50; PULSE 72; RESP 18; TEMP 36.3; O2SAT 96
[2021-11-18] MEDS: 0.9% NaCl Peripheral Flush Adult/Peds IV (09:39)
[2021-11-18] MEDS: Acetaminophen 325 MG Tablet 650 MG PO (09:41)
[2021-11-18 10:18] VITALS: BP 63/36; PULSE 70; RESP 16; TEMP 36.6; O2SAT 92
[2021-11-18 11:18] VITALS: BP 83/52; PULSE 70; RESP 16; TEMP 36.3; O2SAT 96
[2021-11-18 12:23] VITALS: BP 76/42; PULSE 70; RESP 16; TEMP 36.4
[2021-11-18] MEDS: Furosemide 20 MG/2 ML VIAL IV (12:25)
[2021-11-18 12:56] VITALS: BP 74/56; PULSE 72; RESP 16; TEMP 36.6; O2SAT 97
[2021-11-18 12:57] VITALS: BP 81/50; PULSE 69; RESP 16; TEMP 36.4; O2SAT 96
== END 2021-11-18 23:59 | disposition home or self-care (01) ==
LOC: MEDOUTP 09:04
PROVIDERS: PCP Internal Medicine; Referring Provider Internal Medicine Hematology & Oncology; Visit Provider Internal Medicine Hematology & Oncology
DX: Z51.89 Encounter for other specified aftercare (principal); N18.9 Chronic kidney disease, unspecified; D63.1 Anemia in chronic kidney disease; K92.2 Gastrointestinal hemorrhage, unspecified
CPT/HCPCS: 36430; 86850; 86900; 86901; 86902; 86920; 86922; J7040; P9016; A4216; J1940

== ENCOUNTER 2021-12-07 09:03 | Outpatient (RCR) | payer SELFPAY ==
[2021-11-11 00:52] VITALS: BMI 20.8
[2021-11-14 10:31] LABS: International Normalized Ratio 2.4
[2021-11-21 09:36] LABS: International Normalized Ratio 2.5; Prothrombin Time (Protime)PT. 26.5 SECONDS (11.7-14.9)
[2021-12-05 10:18] LABS: International Normalized Ratio 1.7; Prothrombin Time (Protime)PT. 19.7 SECONDS (11.7-14.9)
[2021-12-07 09:57] LABS: International Normalized Ratio 2.1; Prothrombin Time (Protime)PT. 22.9 SECONDS (11.7-14.9)
== END 2021-12-07 18:00 | disposition home or self-care (01) ==
LOC: LAB 09:03
PROVIDERS: Family Provider Internal Medicine; PCP Internal Medicine; Referring Provider Internal Medicine Cardiovascular Disease; Visit Provider Internal Medicine Cardiovascular Disease
DX: Z79.01 Long term (current) use of 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; Z95.2 Presence of prosthetic heart valve
CPT/HCPCS: 36415; 85610

== ENCOUNTER → 2021-12-16 | Outpatient (CLI) | payer MEDICARE, SELFPAY ==
[2021-12-16 11:35] LABS: BNP,B-Type NATRIURETIC PEPTIDE 273.2 pg/mL (0-100)
== END | disposition home or self-care (01) ==
LOC: LABSPEC 11:09
PROVIDERS: PCP Internal Medicine; Referring Provider Nurse Practitioner Family; Visit Provider Nurse Practitioner Family
DX: R60.1 Generalized edema (principal); I50.9 Heart failure, unspecified; R14.0 Abdominal distension (gaseous)
CPT/HCPCS: 83880

== ENCOUNTER → 2021-12-23 | Outpatient (CLI) | payer SELFPAY ==
[2021-12-23] VITALS (7 sets, daily range): BP systolic 58–81; BP diastolic 26–49; PULSE 70–74; RESP 12–16; TEMP 35.7–36.2; O2SAT 93–97
[2021-12-23] MEDS: Acetaminophen 325 MG Tablet 650 MG PO (07:58)
[2021-12-23] MEDS: 0.9% NaCl Peripheral Flush Adult/Peds IV ×2 (08:00→09:39)
== END | disposition home or self-care (01) ==
LOC: MEDOUTP 07:40
PROVIDERS: PCP Internal Medicine; Referring Provider Internal Medicine Hematology & Oncology; Visit Provider Internal Medicine Hematology & Oncology
DX: Z51.89 Encounter for other specified aftercare (principal); N18.9 Chronic kidney disease, unspecified; K92.2 Gastrointestinal hemorrhage, unspecified
CPT/HCPCS: 36430; 86850; 86900; 86901; 86902; 86920; 86922; J7040; P9016; A4216

== ENCOUNTER 2022-01-04 09:26 | Outpatient (RCR) | payer SELFPAY ==
[2021-12-11 02:36] VITALS: BMI 20.8
[2021-12-14 10:51] LABS: International Normalized Ratio 3.3
[2021-12-21 10:35] LABS: International Normalized Ratio 3.2; Prothrombin Time (Protime)PT. 32.4 SECONDS (11.7-14.9)
[2022-01-04 10:51] LABS: International Normalized Ratio 2.2
== END 2022-01-04 18:00 | disposition home or self-care (01) ==
LOC: LAB 09:26
PROVIDERS: Family Provider Internal Medicine; PCP Internal Medicine; Referring Provider Internal Medicine Cardiovascular Disease; Visit Provider Internal Medicine Cardiovascular Disease
DX: I48.11 Longstanding persistent atrial fibrillation (principal); Z95.2 Presence of prosthetic heart valve; Z79.01 Long term (current) use of 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
CPT/HCPCS: 36415; 85610

== ENCOUNTER → 2022-01-13 | Outpatient (CLI) | payer SELFPAY ==
[2022-01-13 08:29] VITALS: BP 65/21; PULSE 71; RESP 16; TEMP 36.3; O2SAT 100; BMI 20.6
[2022-01-13] MEDS: Acetaminophen 325 MG Tablet 650 MG PO (09:05)
[2022-01-13] MEDS: 0.9% NaCl Peripheral Flush Adult/Peds IV (09:06)
[2022-01-13 09:31] VITALS: BP 81/37; PULSE 70; RESP 16; TEMP 35.8; O2SAT 100
[2022-01-13 10:31] VITALS: BP 86/42; PULSE 70; RESP 16; TEMP 36.4; O2SAT 93
[2022-01-13 11:38] VITALS: BP 73/40; PULSE 68; RESP 16; TEMP 35.8; O2SAT 92
[2022-01-13 12:05] VITALS: BP 83/46; PULSE 70; RESP 16; TEMP 36.2
[2022-01-13 13:12] VITALS: BP 78/45; PULSE 71; RESP 16; TEMP 36.4; O2SAT 92
== END | disposition home or self-care (01) ==
LOC: MEDOUTP 08:22
PROVIDERS: PCP Internal Medicine; Referring Provider Internal Medicine Hematology & Oncology; Visit Provider Internal Medicine Hematology & Oncology
DX: Z51.89 Encounter for other specified aftercare (principal)
CPT/HCPCS: 36430; 86850; 86900; 86901; 86902; 86920; 86922; J7030; P9016; A4216

== ENCOUNTER 2022-02-02 09:42 | Outpatient (RCR) | payer SELFPAY ==
[2022-01-10 20:12] VITALS: BMI 20.8
[2022-01-19 10:47] LABS: International Normalized Ratio 2.3; Prothrombin Time (Protime)PT. 25.3 SECONDS (11.7-14.9)
[2022-02-02 10:53] LABS: International Normalized Ratio 2.3; Prothrombin Time (Protime)PT. 24.7 SECONDS (11.7-14.9)
== END 2022-02-02 23:59 | disposition home or self-care (01) ==
LOC: LAB 09:42
PROVIDERS: Family Provider Internal Medicine; PCP Internal Medicine; Referring Provider Internal Medicine Cardiovascular Disease; Visit Provider Internal Medicine Cardiovascular Disease
DX: I48.11 Longstanding persistent atrial fibrillation (principal); Z95.2 Presence of prosthetic heart valve; Z79.01 Long term (current) use of 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
CPT/HCPCS: 36415; 85610

== ENCOUNTER 2022-02-16 09:55 | Emergency (ER) | payer SELFPAY ==
[2022-02-16 09:56] VITALS: BP 85/51; PULSE 89; RESP 16; TEMP 36.4; O2SAT 100; BMI 19.3
[2022-02-16 10:06] VITALS: BP 77/45; PULSE 86; RESP 20
--- NOTE | 2022-02-16 10:08 | ED.RN ---
Patient states normal blood pressure is 70s over 40s, spouse confirms this is her normal. Sobia MCDOWELL at bedside and aware of blood pressure readings.
--- NOTE | 2022-02-16 10:12 | VDUE_ITS ---
Reason For Study: swelling Right Proximal Right jugular vein is spontaneous, widely patent, phasic, with no intraluminal echogenicity noted. Right subclavian vein is spontaneous, widely patent, phasic, with no intraluminal echogenicity noted. Right Lower Arm Right radial vein is compressible. Right ulnar vein is compressible. Right Arm Right axillary vein is spontaneous, patent, phasic, competent, compressible and demonstrates augmentation. Right brachial vein is compressible. Right cephalic vein is compressible. Right basilic vein is compressible. Prelim given. VL/Venous Duplex US, Unilateral Interpretation Summary No evidence for acute deep venous thrombosis[right] upper extremity with patent and compressible cephalic and basilic veins. Ordering Physician: Sobia Barraza Performed By: Braden Joseph RVT ?
--- NOTE | 2022-02-16 10:14 | EDS_ITS ---
HPI <JEREMIAS Hollis - Last Filed: 02/16/22 10:56> History of Present Illness Chief Complaint: Edema Narrative Narrative: Patient has history of chronic anemia and gets iron infusions. She received one on February 10 with the IV in the dorsal right forearm and woke up the next day and the area was swollen. The swelling has spread through the forearm and dorsum of the hand and since it did not resolve she came in today. Its slightly painful if she pushes on it. She otherwise feels well. States her blood pressure always is low in the 70s/50s and she has no other acute complaints. She sees Dr. Thomas once a week for her anemia and gets injections as well. [facility] <JEREMIAS Hollis - Last Filed: 02/16/22 10:56> [facility] Medical History (Updated 02/16/22 @ 10:55 by JEREMIAS Hollis) Abdominal distension Adenomatous colon polyp Anemia Anemia in chronic kidney disease Atrial fibrillation Bilateral leg edema Cardiac pacemaker in situ Carotid bruit Cholelithiasis Chronic heart failure with preserved ejection fraction (HFpEF) Cirrhosis of liver with ascites CKD (chronic kidney disease) COPD (chronic obstructive pulmonary disease) Diverticulosis GERD (gastroesophageal reflux disease) GI bleeding HLD (hyperlipidemia) Hypokalemia Hypotension Iron deficiency correction current use of anticoagulant Longstanding persistent atrial fibrillation Nicotine dependence Non-rheumatic aortic stenosis Non-rheumatic tricuspid valve insufficiency Nonrheumatic mitral (valve) insufficiency Pancytopenia Pericardial effusion Pleural effusion PVC's (premature ventricular contractions) Secondary pulmonary hypertension Tachycardia-bradycardia syndrome Thrombocytopenia Type 2 diabetes mellitus Typical atrial flutter Home Medications ferrous sulfate 325 mg (65 mg iron) tablet 650 mg PO QHS SUPPLEMENT 04/02/15 [History Last Taken 01/18/21] folic acid 1 mg tablet 1 mg PO DAILY@0800 supplement 04/30/15 [History Last Taken 01/17/21] cyanocobalamin (vitamin B-12) 2,500 mcg tablet 2,500 mcg PO DAILY vitamin 06/10/16 [History Last Taken 01/17/21] magnesium 250 mg tablet 250 mg PO DAILY supplement 05/24/17 [History Last Taken 01/17/21] cholecalciferol (vitamin D3) 25 mcg (1,000 unit) capsule 1,000 unit PO DAILY SUPPLEMENT 04/07/19 [History Last Taken 01/17/21] darbepoetin peace in polysorbat 200 mcg/0.4 mL in polysorbate injection syringe 0.4 ml IM TH BLOOD 04/29/20 [History Last Taken 01/13/21] pantoprazole 40 mg tablet,delayed release 40 mg PO BID gerd 30 days #60 tabs 06/21/20 [Rx Last Taken 01/17/21] hydrocodone-acetaminophen 5-325mg 5mg-325mg 0.5 - 1 tab PO Q8H PRN Pain 01/19/21 [History Last Taken 01/19/21] levothyroxine 100 mcg tablet 100 mcg PO DAILY THYROID 01/19/21 [History Last Taken 01/17/21] warfarin 1 mg tablet 2 mg PO .COMPLEX 2nd rx for dose clarification #180 tabs 01/27/21 [Rx Last Taken Unknown] warfarin 2 mg tablet 2 mg PO .COMPLEX 2nd RX for dose clarification #180 tabs 01/27/21 [Rx Last Taken Unknown] venlafaxine 37.5 mg tablet 37.5 mg PO BID DEPRESSION 05/03/21 [History Last Taken Unknown] metoprolol succinate 25 mg tablet,extended release 24 hr 12.5 mg PO BID 90 days #90 tabs 09/08/21 [Rx Last Taken Unknown] furosemide 40 mg tablet 40 mg PO BID #180 tabs 12/21/21 [Rx Last Taken Unknown] potassium chloride 20 mEq tablet,extended release(part/cryst) 20 meq PO BID SUPPLEMENT 12/21/21 [History Last Taken Unknown] Allergy/AdvReac Type Severity Reaction Status Date / Time amiodarone AdvReac vomiting, Verified 02/16/22 09:56 poor balance, dizziness digoxin AdvReac nausea, Verified 02/16/22 09:56 dry heaves lorazepam [From Ativan] AdvReac Unknown Verified 02/16/22 09:56 meloxicam [From Mobic] AdvReac Unknown Verified 02/16/22 09:56 nortriptyline HCl AdvReac Unknown Verified 02/16/22 09:56 [From Pamelor] zolpidem tartrate AdvReac Unknown Verified 02/16/22 09:56 [From Ambien] Family History Mother Cancer lung and renal Father Heart disease Surgical History History of cardioversion (10/2015) History of incision of pericardium History of left heart catheterization (07/17/08) History of mitral valve replacement with mechanical valve (07/22/08) History of tubal ligation Presence of permanent cardiac pacemaker (08/30/18) Social History Smoking Status: Current every day smoker tobacco type: cigarettes Tobacco: How many years used: 60 alcohol intake: never substance use type: does not use caffeine: Yes Type: carbonated beverages what type of physical activity do you participate in: none seatbelt use: always do you feel safe at home: Yes ROS <JEREMIAS Hollis - Last Filed: 02/16/22 10:56> ROS ED ROS Narrative Constitutional: Negative for fever, chills, malaise. Eyes: Negative for visual change. ENT: Negative for sore throat, ear pain, rhinorrhea. CVS: Negative for palpitations, chest pain, syncope. Respiratory: Negative for shortness of breath, cough, orthopnea. GI: Negative for abdominal pain, nausea, vomiting, diarrhea, constipation, melena, hematochezia. : Negative for dysuria, hematuria or frequency. Neuro: Negative for headache, motor/sensory dysfunction. Skin: Negative for rash, abscess, or wound. Musc: Positive for arm swelling. Negative for joint pain, trauma. Heme: Negative for easy bruising, bleeding, lymphadenopathy. EXAM <JEREMIAS Hollis - Last Filed: 02/16/22 10:56> Physical Exam Narrative Exam Narrative: CONST: Patient sitting in no acute distress, cachectic. EYES: Normal inspection. NECK: Normal inspection. RESP: No respiratory distress, CTAB. CVS: Regular rate and rhythm, no murmur, no gallop. ABD: Soft and nontender, no guarding or rebound, mild distention (chronic). Back: Normal inspection. SKIN: Color normal, no rash, warm, dry, intact. EXTREMITIES: Right forearm and dorsum of hand have pitting edema, slight erythema around elbow. 2+ radial pulse, no palpable cords. NEURO: Oriented x4. PSYCH: Normal affect. Const Vital Signs: 02/16/22 09:56 02/16/22 10:06 02/16/22 10:09 Temperature 97.6 F L Temperature Source Temporal Pulse Rate 89 86 Respiratory Rate 16 20 H Respiratory Effort Normal Respiratory Pattern Normal Blood Pressure 85/51 L 77/45 L Blood Pressure Mean 62 55 Pulse Ox 100 Oxygen Delivery Method Room Air <Dr. Reggie Wynn, - Last Filed: 02/16/22 10:58> Physical Exam Const Vital Signs: 02/16/22 09:56 02/16/22 10:06 02/16/22 10:09 Temperature 97.6 F L Temperature Source Temporal Pulse Rate 89 86 Respiratory Rate 16 20 H Respiratory Effort Normal Respiratory Pattern Normal Blood Pressure 85/51 L 77/45 L Blood Pressure Mean 62 55 Pulse Ox 100 Oxygen Delivery Method Room Air [facility] <JEREMIAS Hollis - Last Filed: 02/16/22 10:56> [facility] Narrative Medical decision making narrative: Patient has right arm edema that started a day after getting an iron infusion. She appears well and nontoxic. BP 70s?80/50s which is chronic and asymptomatic. She has pitting edema of the right forearm and dorsum of the hand. Neurovascularly intact. US negative for DVT. She may have had extravasation and I advised cool compresses. At this time there are no signs of infection and no blood clots and this will resolve over time. She should follow-up with her primary care doctor or return if symptoms worsen. 1. Right arm edema 2. History of anemia and iron transfusions <Dr. Reggie Wynn, DO - Last Filed: 02/16/22 10:58> [facility] Narrative Medical decision making narrative: Patient has right arm edema that started a day after getting an iron infusion. She appears well and nontoxic. BP 70s?80/50s which is chronic and asymptomatic. She has pitting edema of the right forearm and dorsum of the hand. Neurovascularly intact. US negative for DVT. I have personally performed a face to face assessment of the patient and have reviewed the ROBERT Note. I performed a substantive portion of the visit including all aspects of the following. My hudson findings include: History: Patient is a 81-year-old female who presents with swelling to her right forearm and hand for the past 6 days. Patient states she had an iron infusion 1 week ago. Patient states her swelling began the next day. Patient denies any trauma or injury. Patient denies any paresthesias or weakness. Patient denies any fevers or chills. Patient denies any chest pain or shortness of breath. Exam: Vital signs are stable except for blood pressure 77/45 which is chronic for the patient. Patient is afebrile. Patient is in no acute distress. Musculoskeletal exam reveals tenderness and edema over the medial aspect of the right proximal forearm. There is no erythema or warmth. There is generalized edema of the right forearm and hand. There is no ecchymosis. There is no deformity. Neurovascular exam is intact. Medical Decision Making: Venous duplex of the right upper extremity was obtained. There is no evidence of DVT or superficial phlebitis. Patient was instructed to alternate ice and heat. Patient was instructed to keep the hand elevated. Patient was instructed to follow-up with her primary care physician in 5 to 7 days. Patient understood and was agreeable with the plan. All questions were answered. Discharge Plan Triage Chief Complaint: Edema Other Complaint: Upper Extremity Injury ED Midlevel Provider: Sobia Barraza ED Provider: Reggie Wynn Dx/Rx/DC Orders Prescriptions: No Action ferrous sulfate 325 MG tablet 650 mg PO QHS Label Comments: Iron supplement folic acid 1 MG tablet 1 mg PO DAILY@0800 Label Comments: Supplement cyanocobalamin (vitamin B-12) 2,500 MCG tablet 2,500 mcg PO DAILY Label Comments: Supplement magnesium 250 MG tablet 250 mg PO DAILY cholecalciferol (vitamin D3) 1,000 UNIT capsule 1,000 unit PO DAILY venlafaxine 37.5 mg tablet 37.5 mg PO BID darbepoetin peace in polysorbat 200 mcg/0.4 mL syringe 0.4 ml IM TH pantoprazole 40 MG tablet 40 mg PO BID 30 Days Qty: 60 0RF hydrocodone-acetaminophen 5-325 mg tablet 0.5 - 1 tab PO Q8H PRN (Reason: Pain) Label Comments: take 1 tablet by mouth every 8 hours if needed for pain levothyroxine 100 mcg tablet 100 mcg PO DAILY Label Comments: take 1 tablet by mouth once daily warfarin 1 mg tablet 2 mg PO .COMPLEX Qty: 180 3RF Protocol: Dose Management Condition: Sunday Dose/Route: 1 mg Instruction: 1 x 1 mg tablet Condition: Sunday Dose/Route: 2 mg Instruction: 1 x 2 mg tablet Condition: Sunday Dose/Route: 2 mg Instruction: 1 x 2 mg tablet Condition: Sunday Dose/Route: 2 mg Instruction: 1 x 2 mg tablet Condition: Dose/Route: 2 mg Instruction: 1 x 2 mg tablet Condition: Sunday Dose/Route: 2 mg Instruction: 1 x 2 mg tablet Condition: Sunday Dose/Route: 2 mg Instruction: 1 x 2 mg tablet Protocol Text: Adjustment Start Date: 02/02/22 INR Value: 2.3 INR Date: 02/02/22 Recheck Date: 02/16/22 Rx Instructions: 2 tablets (4mg) on , 1 tablets with a 2 mg tablet all other days of the week OR as DIRECTED; DOSE CHANGES OFTEN warfarin 2 mg tablet 2 mg PO .COMPLEX Qty: 180 3RF Protocol: Dose Management Condition: Sunday Dose/Route: 1 mg Instruction: 1 x 1 mg tablet Condition: Sunday Dose/Route: 2 mg Instruction: 1 x 2 mg tablet Condition: Sunday Dose/Route: 2 mg Instruction: 1 x 2 mg tablet Condition: Sunday Dose/Route: 2 mg Instruction: 1 x 2 mg tablet Condition: Dose/Route: 2 mg Instruction: 1 x 2 mg tablet Condition: Sunday Dose/Route: 2 mg Instruction: 1 x 2 mg tablet Condition: Sunday Dose/Route: 2 mg Instruction: 1 x 2 mg tablet Protocol Text: Adjustment Start Date: 02/02/22 INR Value: 2.3 INR Date: 02/02/22 Recheck Date: 02/16/22 Rx Instructions: 2 mg PO 2 tablets on (4mg), take with a 1 mg tablet to = 3mg all other days of the week OR as directed: DOSE CHANGES OFTEN; metoprolol succinate 25 mg tablet extended release 24 hr 12.5 mg PO BID 90 Days Qty: 90 3RF furosemide 40 mg tablet 40 mg PO BID Qty: 180 3RF potassium chloride 20 mEq tablet,ER particles/crystals 20 meq PO BID Primary Care Provider: Kodak Muñoz Referrals: Kodak Muñoz MD [Primary Care Provider] -
[2022-02-16 11:01] VITALS: BP 89/55; PULSE 87
== END 2022-02-16 11:05 | disposition home or self-care (01) ==
PROVIDERS: Emergency Provider Emergency Medicine; PCP Internal Medicine; Visit Provider Emergency Medicine
DX: R60.0 Localized edema (principal); J44.9 Chronic obstructive pulmonary disease, unspecified; I50.32 Chronic diastolic (congestive) heart failure; E11.22 Type 2 diabetes mellitus with diabetic chronic kidney disease; N18.9 Chronic kidney disease, unspecified; D64.9 Anemia, unspecified; E78.5 Hyperlipidemia, unspecified; F17.210 Nicotine dependence, cigarettes, uncomplicated
CPT/HCPCS: 93971; 99283

== ENCOUNTER → 2022-02-20 | Outpatient (CLI) | payer SELFPAY | END | disposition home or self-care (01) | LOC: LABSPEC 11:22 | PROVIDERS: PCP Internal Medicine; Referring Provider Internal Medicine Hematology & Oncology; Visit Provider Internal Medicine Hematology & Oncology | DX: Z51.89 Encounter for other specified aftercare (principal); N18.9 Chronic kidney disease, unspecified; K92.2 Gastrointestinal hemorrhage, unspecified | CPT/HCPCS: 86850; 86900; 86901; 86902; 86920; 86922 ==

== ENCOUNTER → 2022-02-21 | Outpatient (CLI) | payer SELFPAY ==
[2022-02-21] MEDS: 0.9% NaCl Peripheral Flush Adult/Peds IV (10:38)
[2022-02-21] MEDS: Acetaminophen 325 MG Tablet 650 MG PO (10:38)
[2022-02-21 10:41] VITALS: BP 77/24; PULSE 93; RESP 16; TEMP 36.3; BMI 19.3
[2022-02-21 11:11] VITALS: BP 74/40; PULSE 92; RESP 16; TEMP 36.6
[2022-02-21 12:11] VITALS: BP 78/48; PULSE 94; RESP 16; TEMP 36.3; O2SAT 95
== END | disposition home or self-care (01) ==
PROVIDERS: PCP Internal Medicine; Referring Provider Internal Medicine Hematology & Oncology; Visit Provider Internal Medicine Hematology & Oncology
DX: Z51.89 Encounter for other specified aftercare (principal); N18.9 Chronic kidney disease, unspecified; K92.2 Gastrointestinal hemorrhage, unspecified
CPT/HCPCS: 36430; 86850; 86900; 86901; 86902; 86920; 86922; J7040; P9016; A4216

== ENCOUNTER 2022-03-02 10:10 | Outpatient (RCR) | payer SELFPAY ==
[2022-02-10 06:38] VITALS: BMI 20.8
[2022-02-16 11:54] LABS: International Normalized Ratio 3.1; Prothrombin Time (Protime)PT. 31.6 SECONDS (11.7-14.9)
[2022-03-02 10:59] LABS: International Normalized Ratio 2.5; Prothrombin Time (Protime)PT. 26.6 SECONDS (11.7-14.9)
== END 2022-03-12 01:57 | disposition home or self-care (01) ==
LOC: LAB 10:10
PROVIDERS: Family Provider Internal Medicine; PCP Internal Medicine; Referring Provider Internal Medicine Cardiovascular Disease; Visit Provider Internal Medicine Cardiovascular Disease
DX: I48.11 Longstanding persistent atrial fibrillation (principal); Z95.2 Presence of prosthetic heart valve; Z79.01 Long term (current) use of 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
CPT/HCPCS: 36415; 85610

== ENCOUNTER 2022-03-31 08:48 | Inpatient (IN) | payer MEDICARE, OTHER, SELFPAY ==
[2022-03-31] VITALS (31 sets, daily range): BP systolic 73–155; BP diastolic 24–98; PULSE 51–75; RESP 16–26; TEMP 35.7–36.7; O2SAT 1–100; BMI 17.8; BMI 17.3
--- NOTE | 2022-03-31 09:02 | EX.ED.DYSGE1 ---
HPI History of Present Illness Chief Complaint: Hypotension Narrative Narrative: Patient with past medical history of COPD, smoker, CHF, has pacemaker and takes Coumadin presents with hypotension and anemia. She was at the infusion center as she had a hemoglobin of 6.3 recently. She was supposed to have a transfusion of packed red blood cells. She states has had problems with intermittent bloody diarrhea her last episode being longer than a week ago. Her manager change sent her for transfusion. She states that she had low blood pressure there and has had a headache over the last few days which is resolving. She is chronically short of breath. She was sent to the emergency department prior to starting her transfusion of packed red blood cells because of low blood pressure. She reports diarrhea. She denies any chest pain or new shortness of breath but states she feels occasionally lightheaded and dizzy. She denies any recent bloody bowel movements or other bleeding diathesis. [facility] Medical History Abdominal distension Adenomatous colon polyp Anemia Anemia in chronic kidney disease Anxiety Atrial fibrillation Bilateral leg edema Cardiac pacemaker in situ Carotid bruit Cholelithiasis Chronic heart failure with preserved ejection fraction (HFpEF) Cirrhosis Cirrhosis of liver with ascites CKD (chronic kidney disease) COPD (chronic obstructive pulmonary disease) Depression Depression Diverticulosis GERD (gastroesophageal reflux disease) GI bleed GI bleeding HLD (hyperlipidemia) Hypokalemia Hypotension Iron deficiency Irregular heart beat Kidney disease rn long term care current use of anticoagulant Longstanding persistent atrial fibrillation Nicotine dependence Non-rheumatic aortic stenosis Non-rheumatic tricuspid valve insufficiency Nonrheumatic mitral (valve) insufficiency Pancytopenia Pericardial effusion Pleural effusion PVC's (premature ventricular contractions) Secondary pulmonary hypertension Smoker Tachycardia-bradycardia syndrome Thrombocytopenia Type 2 diabetes mellitus Typical atrial flutter Home Medications ferrous sulfate 325 mg (65 mg iron) tablet 650 mg PO QHS SUPPLEMENT 04/02/15 [History Last Taken 01/18/21] folic acid 1 mg tablet 1 mg PO DAILY@0800 supplement 04/30/15 [History Last Taken 01/17/21] cyanocobalamin (vitamin B-12) 2,500 mcg tablet 2,500 mcg PO DAILY vitamin 06/10/16 [History Last Taken 01/17/21] magnesium 250 mg tablet 250 mg PO DAILY supplement 05/24/17 [History Last Taken 01/17/21] cholecalciferol (vitamin D3) 25 mcg (1,000 unit) capsule 1,000 unit PO DAILY SUPPLEMENT 04/07/19 [History Last Taken 01/17/21] darbepoetin peace in polysorbat 200 mcg/0.4 mL in polysorbate injection syringe 0.4 ml IM TH BLOOD 04/29/20 [History Last Taken 01/13/21] pantoprazole 40 mg tablet,delayed release 40 mg PO BID gerd 30 days #60 tabs 06/21/20 [Rx Last Taken 01/17/21] hydrocodone-acetaminophen 5-325mg 5mg-325mg 0.5 - 1 tab PO Q8H PRN Pain 01/19/21 [History Last Taken 01/19/21] levothyroxine 100 mcg tablet 100 mcg PO DAILY THYROID 01/19/21 [History Last Taken 01/17/21] warfarin 1 mg tablet 2 mg PO .COMPLEX 2nd rx for dose clarification #180 tabs 01/27/21 [Rx Last Taken Unknown] venlafaxine 37.5 mg tablet 37.5 mg PO BID DEPRESSION 05/03/21 [History Last Taken Unknown] metoprolol succinate 25 mg tablet,extended release 24 hr 12.5 mg PO BID 90 days #90 tabs 09/08/21 [Rx Last Taken Unknown] furosemide 40 mg tablet 40 mg PO BID #180 tabs 12/21/21 [Rx Last Taken Unknown] warfarin 2 mg tablet 2 mg PO .COMPLEX 2nd RX for dose clarification #180 tabs 03/06/22 [Rx Last Taken Unknown] potassium chloride 20 mEq tablet,extended release(part/cryst) 20 meq PO BID SUPPLEMENT #180 tabs 03/15/22 [Rx Last Taken Unknown] Allergy/AdvReac Type Severity Reaction Status Date / Time amiodarone AdvReac vomiting, Verified 03/31/22 09:02 poor balance, dizziness digoxin AdvReac nausea, Verified 03/31/22 09:02 dry heaves lorazepam [From Ativan] AdvReac Unknown Verified 03/31/22 09:02 meloxicam [From Mobic] AdvReac Unknown Verified 03/31/22 09:02 nortriptyline HCl AdvReac Unknown Verified 03/31/22 09:02 [From Pamelor] zolpidem tartrate AdvReac Unknown Verified 03/31/22 09:02 [From Ambien] Family History Mother Cancer lung and renal Father Heart disease Surgical History History of cardioversion (10/2015) History of incision of pericardium History of left heart catheterization (07/17/08) History of mitral valve replacement with mechanical valve (07/22/08) History of tubal ligation Presence of permanent cardiac pacemaker (08/30/18) Social History Smoking Status: Current every day smoker tobacco type: cigarettes Tobacco: How many years used: 60 alcohol intake: never substance use type: does not use caffeine: Yes Type: carbonated beverages what type of physical activity do you participate in: none seatbelt use: always do you feel safe at home: Yes ROS ROS ED ROS Narrative Constitutional: No fever, no chills. HEENT: No sore throat. No neck pain. No loss of vision. No rhinorrhea. Cardiovascular: No chest pain. No palpitations. No pedal edema. Respiratory: No cough, no shortness of breath. Abdominal: No abdominal pain. No nausea. No vomiting. Diarrhea today. Genitourinary: No dysuria. No hematuria. Musculoskeletal: No myalgias. No arthralgias. Neurologic: Intermittent headaches for the last few days. Positive dizziness. Positive lightheadedness. Minimal generalized weakness. Skin: No rash. No change in color. Psychiatric: No depression. No anxiety. EXAM Physical Exam Narrative Exam Narrative: Afebrile. Vital signs noted. HEENT: Normocephalic. Atraumatic. PERRL, EOMI. Neck soft and supple. No point tenderness or step off. Cardiovascular: Regular rate and rhythm. No murmurs, rubs, or gallops appreciated. Respiratory: No tachypnea. Lungs clear to auscultation bilaterally. Gastrointestinal: Abdomen soft, nontender, with normoactive bowel sounds. No rebound or guarding. Neurological: Awake. Alert. Oriented x3, nonfocal, nonlateralizing. Skin: No rash. Normal color. Positive pallor with a subconjunctival pallor. Musculoskeletal: No pedal edema. Full range of motion extremities. Const Vital Signs: 03/31/22 08:50 03/31/22 09:02 03/31/22 09:20 Temperature 96.2 F L 96.8 F L Temperature Source Temporal Temporal Pulse Rate 70 70 Respiratory Rate 24 H 22 H Respiratory Effort Normal Non-Labored Respiratory Pattern Normal Blood Pressure 73/24 L 73/38 L Blood Pressure Mean 40 49 Blood Pressure Source Monitor Blood Pressure Position Semi-Fowlers Blood Pressure Location Left Arm Pulse Ox 86 100 Oxygen Delivery Method Room Air Nasal Cannula Oxygen Flow Rate (L/min) 2 03/31/22 09:25 03/31/22 09:30 03/31/22 09:35 Temperature 96.6 F L 96.7 F L 96.6 F L Temperature Source Temporal Temporal Temporal Pulse Rate 74 71 70 Respiratory Rate 21 H 18 20 H Respiratory Effort Respiratory Pattern Blood Pressure 131/98 H 84/31 L 84/44 L Blood Pressure Mean 109 48 57 Blood Pressure Source Monitor Monitor Monitor Blood Pressure Position Semi-Fowlers Semi-Fowlers Semi-Fowlers Blood Pressure Location Left Arm Left Arm Left Arm Pulse Ox 94 97 97 Oxygen Delivery Method Nasal Cannula Nasal Cannula Nasal Cannula Oxygen Flow Rate (L/min) 2 2 2 03/31/22 10:36 Temperature 96.9 F L Temperature Source Temporal Pulse Rate 62 Respiratory Rate 17 Respiratory Effort Respiratory Pattern Blood Pressure 77/60 L Blood Pressure Mean 65 Blood Pressure Source Monitor Blood Pressure Position Semi-Fowlers Blood Pressure Location Left Arm Pulse Ox 91 Oxygen Delivery Method Nasal Cannula Oxygen Flow Rate (L/min) 2 MDM MDM MDM Narrative Medical decision making narrative: Upon arrival, patient has blood pressure of 73/24. She is mentating well. She was started on IV bolus as we are attempting to transfuse her a unit of blood that was ordered. I will check a CBC and CMP and order another unit of blood given her hypotension. I will refrain from orthostatics as she is already hypotensive. I will also check an INR. Patient has neutropenia of 2.4, hemoglobin low at 4.8, down from her reported hemoglobin of 6. She is also thrombocytopenic with a platelet count of 86. INR is supratherapeutic at 4.9. This will be held. She was started on a blood transfusion and remains with good mentation. CMP shows chloride elevated at 111. BUN of 46 with creatinine 1.5. Glucose appropriately elevated at 168 with an anion gap of 6. At this point in time, she is receiving her first unit of blood. Given her tenuous blood pressure, patient will be admitted to the ICU. I discussed patient with Dr. Pereira. Patient does not want to have rectal examination performed as she states that she has been scoped multiple times and they cannot find an area of her chronic GI bleeding. I also discussed patient with Dr. Galvan with intensive care who agrees with admission to the ICU. Patient is in guarded condition. Lab Data Attestation: I reviewed the patient's lab results. Labs: Laboratory Results - last 24 hr 03/30/22 03/30/22 03/31/22 09:14 09:14 09:18 WBC 2.4 L RBC 1.59 L Hgb 4.8 L* Hct 15.5 L MCV 97.5 MCH 30.2 MCHC 31.0 L RDW Std Deviation 56.4 H RDW Coeff of Uriel 16.9 H Plt Count 86 L MPV 11.1 Immature Gran % (Auto) 0.800 Neut % (Auto) 80.0 H Lymph % (Auto) 12.9 L [place] % (Auto) 6.3 Eos % (Auto) 0.0 Baso % (Auto) 0.0 Absolute Neuts (auto) 1.9 L Absolute Lymphs (auto) 0.31 L Nucleated RBC % 0 Differential Comment COMMENT Diff Path Review May foll Platelet Estimate MOD DEC Immature Plt Fraction Retic Count Immature Retic Fraction Retic Hgb Equivalent PT INR Sodium Potassium Chloride Carbon Dioxide Anion Gap BUN Creatinine Estim Creat Clear Calc Est GFR (MDRD) Af Amer Est GFR (MDRD) Non-Af BUN/Creatinine Ratio Glucose Calcium Iron TIBC Iron Saturation Ferritin Total Bilirubin AST ALT Alkaline Phosphatase Lactate Dehydrogenase Total Protein Albumin Globulin Albumin/Globulin Ratio Blood Type A POSITIVE Antibody Screen NEGATIVE Crossmatch See Detail See Detail 03/31/22 03/31/22 03/31/22 09:18 09:18 09:18 WBC RBC Hgb Hct MCV MCH MCHC RDW Std Deviation RDW Coeff of Uriel Plt Count MPV Immature Gran % (Auto) Neut % (Auto) Lymph % (Auto) [place] % (Auto) Eos % (Auto) Baso % (Auto) Absolute Neuts (auto) Absolute Lymphs (auto) Nucleated RBC % Differential Comment Diff Path Review Platelet Estimate Immature Plt Fraction 4.9 Retic Count 3.97 H Immature Retic Fraction 18.30 H Retic Hgb Equivalent 28.1 L PT 45.4 H INR 4.9 H* Sodium 144 Potassium 4.5 Chloride 111 H Carbon Dioxide 27.0 Anion Gap 6 BUN 46 H Creatinine 1.51 H Estim Creat Clear Calc 20.98 Est GFR (MDRD) Af Amer 43 L Est GFR (MDRD) Non-Af 35 L BUN/Creatinine Ratio 30.5 H Glucose 168 H Calcium 8.1 L Iron TIBC Iron Saturation Ferritin Total Bilirubin 0.30 AST 7 L ALT 7 L Alkaline Phosphatase 76 Lactate Dehydrogenase Total Protein 5.7 L Albumin 2.4 L Globulin 3.3 Albumin/Globulin Ratio 0.7 L Blood Type Antibody Screen Crossmatch 03/31/22 09:18 WBC RBC Hgb Hct MCV MCH MCHC RDW Std Deviation RDW Coeff of Uriel Plt Count MPV Immature Gran % (Auto) Neut % (Auto) Lymph % (Auto) [place] % (Auto) Eos % (Auto) Baso % (Auto) Absolute Neuts (auto) Absolute Lymphs (auto) Nucleated RBC % Differential Comment Diff Path Review Platelet Estimate Immature Plt Fraction Retic Count Immature Retic Fraction Retic Hgb Equivalent PT INR Sodium Potassium Chloride Carbon Dioxide Anion Gap BUN Creatinine Estim Creat Clear Calc Est GFR (MDRD) Af Amer Est GFR (MDRD) Non-Af BUN/Creatinine Ratio Glucose Calcium Iron 54 TIBC 238 L Iron Saturation 22.7 Ferritin 86 Total Bilirubin AST ALT Alkaline Phosphatase Lactate Dehydrogenase 138 Total Protein Albumin Globulin Albumin/Globulin Ratio Blood Type Antibody Screen Crossmatch Critical Care Time Critical Care Time: Yes Critical care time (excluding procedures): 30-74 minutes (32 minutes), Including time spent:, Discussing w/Patient &/or Family/Podiatrist Orthopedic, Discussing w/Consultants, Arranging Admission or Transfer and Performing Direct Patient Care at Bedside Discharge Plan Dx/Rx/DC Orders Clinical Impression: Anemia requiring transfusions, Hypotension, Black stool, Chronic gastrointestinal bleeding, Thrombocytopenia, Supratherapeutic INR, Neutropenia Disposition Disposition: [facility] Discharge Date/Time: 03/31/22 11:35
[2022-03-31 09:30] LABS: Absolute Lymphocyte Count 0.31 X10^3/uL (0.83-4.51); Absolute Neutrophil Count 1.9 X10^3/uL (2.0-7.7); Hematocrit 15.5 % (37-47); Lymphocyte # 0.31 X10^3/ul (0.83-4.51); Lymphocyte % 12.9 % (19-41); Mean Corpuscular Hgb 30.2 pg (27.0-32.0); Mean Corpuscular Volume 97.5 fL (81-99); Mean Platelet Vol. 11.1 fl (6.2-12.0); Monocyte# 0.15 X10^3/uL; Monocyte% 6.3 % (0-10); NRBC Flagged by Analyzer 0 % (0-5); Neutrophil # 1.92 X10^3/uL (2.7-7.7); POSITIVE COUNT YES; POSITIVE DIFFERENTIAL YES; Platelet Count 86 K/mm3 (150-450); RBC Distribution Width CV 16.9 % (11.6-14.6); RBC Distribution Width SD 56.4 fl (35.1-43.9); Red Blood Count 1.59 M/mm3 (4.2-5.4); White Blood Count 2.4 K/mm3 (4.4-11.0)
[2022-03-31 09:37] LABS: Differential Indicated SCAN CRITERIA MET; Hemoglobin 4.8 g/dL (12.0-15.0)
[2022-03-31 09:38] LABS: Prothrombin Time (Protime)PT. 45.4 SECONDS (11.7-14.9)
[2022-03-31 09:39] LABS: ALB/GLOB Ratio 0.7 RATIO (0.9-2.4); AST(SGOT) 7 U/L (15-37); Alanine Aminotransfer ALT/SGPT 7 U/L (13-56); Albumin, Serum 2.4 g/dL (3.2-5.0); Alkaline Phosphatase 76 U/L (45-117); Anion Gap 6 (5-15); BUN 46 mg/dL (7-18); BUN/Creat Ratio 30.5 RATIO (10-20); Calcium,Total 8.1 mg/dL (8.5-10.1); Chloride 111 mmol/L (98-107); Creatinine, Serum 1.51 mg/dL (0.55-1.02); EST Glomerular Filtration Rate 35 mL/min (>60); Est Glom Filt Rate - Afr Amer 43 mL/min (>60); Estimated Creatinine Clearance 20.98 ml/min; Globulin 3.3 g/dL (2.2-4.2); Glucose 168 mg/dL (74-106); Potassium 4.5 mmol/L (3.5-5.1); Protein, Total 5.7 g/dL (6.4-8.2); Sodium Level 144 mmol/L (136-145)
[2022-03-31 09:41] LABS: International Normalized Ratio 4.9
[2022-03-31 09:50] LABS: Platelet Estimate MOD DEC (ADEQ)
--- NOTE | 2022-03-31 10:56 | ED.RN ---
PT STATES SHE DOES NOT KNOW ALL OF HER HOME MEDS WHEN ASKED.
--- NOTE | 2022-03-31 11:08 | ED.RN ---
PT AT FIRST REFUSING ADMISSION. THIS RN MAKES DR. AVALOS AWARE. PT EDUCATED ON THE NEED FOR ADMISSION. PT NOW AGREEABLE TO STAY.
--- NOTE | 2022-03-31 11:23 | ED.RN ---
REPORT CALLED TO ANDRES URIAS IN ICU.
[2022-03-31 12:18] LABS: Immature Platelet Fraction 4.9 % (1.0-7.9); Platelet Count 86 K/mm3 (150-450); RET-HE 28.1 pg (30-35); Reticulocyte Count 3.97 % (0.5-1.5)
[2022-03-31 12:26] LABS: Ferritin 86 ng/mL (8-252); Iron 54 ug/dL (50-170); Iron Binding Capacity,Total 238 ug/dL (250-450); LDH 138 U/L (84-246); PERCENT IRON SATURATION 22.7 % (15.0-55.0)
--- NOTE | 2022-03-31 12:40 | CON.PCM.CC_ITS ---
Assessment & Plan Assessment/Plan (1) Chronic gastrointestinal bleeding: (2) Supratherapeutic INR: (3) History of mitral valve replacement with mechanical valve: (4) Secondary pulmonary hypertension: (5) Pancytopenia: PLAN: Plan RECOMMENDATIONS: 1. Transfuse 1 unit FFP 2. Recheck H&H after each 2 unit PRBC. Goal greater than 7 3. Recheck INR after FFP. Goal 2.5-3.5 4. Wean oxygen as tolerated 5. Encourage incentive spirometer 6. Appreciate GI recommendations IMPRESSIONS: 1.??Acute on chronic blood loss anemia The patient does have a history of prior admissions for acute on chronic blood loss anemia, the source of which has never been identified.? The patient will receive transfusion of blood products in hopes of achieving a hemoglobin greater than 7 g/dL.? Plan to check H&H posttransfusion.? Fluid boluses can be used as necessary.? Recommend inserting and maintaining 2 peripheral large bore IVs.? Patient placed on PPI drip. Patient does have elevated INR 2.??Hemorrhagic shock The patient presented to the ICU in a hypotensive state.? There is concerned that she may require vasopressors.? However, the patient refused to allow for a PICC line or central venous catheter to be placed.? We will challenge with fluids. Cannot exclude the need for Levophed. Monitor in intensive care 3.??Coagulopathy The patient is chronically anticoagulated with Coumadin due to a history of atrial fibrillation and mechanical valve.? Her INR is supratherapeutic at presentation.? We will give patient 1 unit of FFP.? Recommend rechecking INR.? Continue to hold Coumadin. Would not normalize given patient's history of a mechanical heart valve 4.??Chronic hypoxemic respiratory failure The patient does have a baseline oxygen requirement of 2 L/min, which will be continued. 5.??Chronic atrial fibrillation/history of mitral valve replacement/hypothyroidism Complicates care, management, recovery and prognosis.? Continue home medications as indicated. HPI Consult Data Date of Consult: 03/31/22 HPI Narrative Reason for Consultation: Acute blood loss anemia HPI Narrative: EMANI LOUIS is a 81 F, with past medical history listed below and well-known to me from previous admissions, who presents to [facility] on 03/31/2022 secondary to orthostatic issues. Patient reportedly started to have intermittent bloody diarrhea approximately a week ago. Engineering Psychologist had sent her for transfusion at the infusion center after a hemoglobin drawl was 6.3. Patient was noted to have a headache and hypotension at the infusion center, so was brought to the ER for evaluation. Patient denied any chest pain or worsening shortness of breath. Patient did state that she had orthostatic symptoms with feeling lightheaded and dizzy with standing. Patient stated that she has had some recent black bowel movements. Patient did state that she was recently increased on her Coumadin and had not had a recheck recently. This cannot be verified. Patient also states that she has diverticulosis and a corn recently. In the ER, patient was afebrile, but tachypneic at 24 breaths/min. Patient was hypotensive at 73/24 and saturating 86% on room air at rest. Patient was placed on 2 L nasal cannula with improvements. Laboratory work-up showed a white blood cell count of 2.4, hemoglobin of 4.8 and platelets of 86. INR was elevated at 4.9 and chemistry showed a creatinine of 1.51. Glucose was slightly elevated at 168, but LFTs were within normal limits. Patient was ordered 2 units of packed red blood cells with 2 units on hold. Patient's blood pressure did respond to fluids. Patient states her blood pressure tends to run low. Patient states it is normal for her to be in the 80s systolic. Patient is mentating well and able to recall her history. Patient states that she has been scoped multiple times with an inability to find a source. Patient states that she does feel better since she has had some of her blood infused. Patient has not reported any change in diet or antibiotics. No trauma has been reported. Patient is not noticing any hematuria or flank pain. Patient does report minor bruising of the arms and legs with bumping into things. Patient reports a 13 pound weight loss of unc lear etiology. Review of systems otherwise negative from a constitutional, HEENT, respiratory, cardiovascular, GI, genitourinary, musculoskeletal, skin, neurologic, psychiatric and hematologic system unless stated above. [facility] Medical History Abdominal distension Adenomatous colon polyp Anemia Anemia in chronic kidney disease Anxiety Atrial fibrillation Bilateral leg edema Cardiac pacemaker in situ Carotid bruit Cholelithiasis Chronic heart failure with preserved ejection fraction (HFpEF) Cirrhosis Cirrhosis of liver with ascites CKD (chronic kidney disease) COPD (chronic obstructive pulmonary disease) Depression Depression Diverticulosis GERD (gastroesophageal reflux disease) GI bleed GI bleeding HLD (hyperlipidemia) Hypokalemia Hypotension Iron deficiency Irregular heart beat 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 current use of anticoagulant Longstanding persistent atrial fibrillation Nicotine dependence Non-rheumatic aortic stenosis Non-rheumatic tricuspid valve insufficiency Nonrheumatic mitral (valve) insufficiency Pancytopenia Pericardial effusion Pleural effusion PVC's (premature ventricular contractions) Secondary pulmonary hypertension Smoker Tachycardia-bradycardia syndrome Thrombocytopenia Type 2 diabetes mellitus Typical atrial flutter Home Medications ferrous sulfate 325 mg (65 mg iron) tablet 650 mg PO QHS SUPPLEMENT 04/02/15 [History Last Taken 01/18/21] folic acid 1 mg tablet 1 mg PO DAILY@0800 supplement 04/30/15 [History Last Taken 01/17/21] cyanocobalamin (vitamin B-12) 2,500 mcg tablet 2,500 mcg PO DAILY vitamin 06/10/16 [History Last Taken 01/17/21] magnesium 250 mg tablet 250 mg PO DAILY supplement 05/24/17 [History Last Taken 01/17/21] cholecalciferol (vitamin D3) 25 mcg (1,000 unit) capsule 1,000 unit PO DAILY SUPPLEMENT 04/07/19 [History Last Taken 01/17/21] darbepoetin peace in polysorbat 200 mcg/0.4 mL in polysorbate injection syringe 0.4 ml IM TH BLOOD 04/29/20 [History Last Taken 01/13/21] pantoprazole 40 mg tablet,delayed release 40 mg PO BID gerd 30 days #60 tabs 06/21/20 [Rx Last Taken 01/17/21] hydrocodone-acetaminophen 5-325mg 5mg-325mg 0.5 - 1 tab PO Q8H PRN Pain 01/19/21 [History Last Taken 01/19/21] levothyroxine 100 mcg tablet 100 mcg PO DAILY THYROID 01/19/21 [History Last Taken 01/17/21] warfarin 1 mg tablet 2 mg PO .COMPLEX 2nd rx for dose clarification #180 tabs 01/27/21 [Rx Last Taken Unknown] venlafaxine 37.5 mg tablet 37.5 mg PO BID DEPRESSION 05/03/21 [History Last T aken Unknown] metoprolol succinate 25 mg tablet,extended release 24 hr 12.5 mg PO BID 90 days #90 tabs 09/08/21 [Rx Last Taken Unknown] furosemide 40 mg tablet 40 mg PO BID #180 tabs 12/21/21 [Rx Last Taken Unknown] warfarin 2 mg tablet 2 mg PO .COMPLEX 2nd RX for dose clarification #180 tabs 03/06/22 [Rx Last Taken Unknown] potassium chloride 20 mEq tablet,extended release(part/cryst) 20 meq PO BID SUPPLEMENT #180 tabs 03/15/22 [Rx Last Taken Unknown] Allergy/AdvReac Type Severity Reaction Status Date / Time amiodarone AdvReac vomiting, Verified 03/31/22 09:02 poor balance, dizziness digoxin AdvReac nausea, Verified 03/31/22 09:02 dry heaves lorazepam [From Ativan] AdvReac Unknown Verified 03/31/22 09:02 meloxicam [From Mobic] AdvReac Unknown Verified 03/31/22 09:02 nortriptyline HCl AdvReac Unknown Verified 03/31/22 09:02 [From Pamelor] zolpidem tartrate AdvReac Unknown Verified 03/31/22 09:02 [From Ambien] Family History Mother Cancer lung and renal Father Heart disease Surgical History History of cardioversion (10/2015) History of incision of pericardium History of left heart catheterization (07/17/08) History of mitral valve replacement with mechanical valve (07/22/08) History of tubal ligation Presence of permanent cardiac pacemaker (08/30/18) Social History Smoking Status: Current every day smoker tobacco type: cigarettes Tobacco: How many years used: 60 alcohol intake: never substance use type: does not use caffeine: Yes Type: carbonated beverages what type of physical activity do you participate in: none seatbelt use: always do you feel safe at home: Yes ROS ROS Narrative See HPI Physical Exam Const alert, oriented x3 and no apparent distress General Appearance: frail HEENT normocephalic, head/scalp atraumatic and hearing grossly normal bilaterally HEENT Narrative: Slight temporal wasting noted Eyes PERRL, EOMs intact bilaterally, conjunctivae normal and no scleral icterus Neck no lymphadenopathy, supple and no JVD Resp normal respiratory effort, no retractions, no use of accessory muscles and clear to auscultation bilaterally Cardio regular rate, regular rhythm, S1 normal heart sound, S2 normal heart sound and no JVD Heart Sounds: murmur systolic II/ low-pitched early base GI soft to palpation, non-tender and non-distended GI Narrative: Slightly distended abdomen without fluid wave Extremity normal to inspection, full ROM and no clubbing, cyanosis or edema Skin no rashes or lesions noted, no wounds and skin turgor normal Skin Narrative: Minor superficial bruising noted Neuro oriented x3, CN's II-XII intact bilaterally, moves all extremities and no focal motor deficits Psych affect normal Lab / Micro Data Attestation: I reviewed the patient's lab results. Result Diagrams: 03/31/22 09:18 03/31/22 09:18 Labs: Laboratory Results - last 24 hr 03/30/22 09:14: Blood Type A POSITIVE, Antibody Screen NEGATIVE, Crossmatch See Detail 03/31/22 09:18: WBC 2.4 L, RBC 1.59 L, Hgb 4.8 L*, Hct 15.5 L, MCV 97.5, MCH 30.2, MCHC 31.0 L, RDW Std Deviation 56.4 H, RDW Coeff of Uriel 16.9 H, Plt Count 86 L, MPV 11.1, Immature Gran % (Auto) 0.800, Neut % (Auto) 80.0 H, Lymph % (Auto) 12.9 L, [place] % (Auto) 6.3, Eos % (Auto) 0.0, Baso % (Auto) 0.0, Absolute Neuts (auto) 1.9 L, Absolute Lymphs (auto) 0.31 L, Nucleated RBC % 0, Differential Comment COMMENT, Diff Path Review December, Platelet Estimate MOD 03/31/22 09:18: PT 45.4 H, INR 4.9 H* 03/31/22 09:18: Sodium 144, Potassium 4.5, Chloride 111 H, Carbon Dioxide 27.0, Anion Gap 6, BUN 46 H, Creatinine 1.51 H, Estim Creat Clear Calc 20.98, Est GFR (MDRD) Af Amer 43 L, Est GFR (MDRD) Non-Af 35 L, BUN/Creatinine Ratio 30.5 H, Glucose 168 H, Calcium 8.1 L, Total Bilirubin 0.30, AST 7 L, ALT 7 L, Alkaline P hosphatase 76, Total Protein 5.7 L, Albumin 2.4 L, Globulin 3.3, Albumin/Globulin Ratio 0.7 L 03/31/22 09:18: Immature Plt Fraction 4.9, Retic Count 3.97 H, Immature Retic F raction 18.30 H, Retic Hgb Equivalent 28.1 L 03/31/22 09:18: Iron 54, TIBC 238 L, Iron Saturation 22.7, Ferritin 86, Lactate Dehydrogenase 138 Charges/Coding Visit Charges Inpatient E&M: 54406 Init Hosp L3
--- NOTE | 2022-03-31 13:17 | HP.PCM.HOS_ITS ---
HPI - General General Date of Admission: 03/31/22 Date of Service: 03/31/22 Chief Complaint: - ongoing for days HPI Narrative EMANI LOUIS, is a 81 F who presents with melanotic stools on going for some days. Patient has history of recurrent GI bleed, history of mechanical mitral valve replacement, on Coumadin, follows longitudinally with Hematology, Dr. Thomas. Patient stated that she was recently told she had diverticulitis. She has been having melena/intermittent bloody diarrhea. Last time she saw bloody diarrhea was about a week ago. She has been having melena stools ongoing for some days. Last got blood transfusion about a month ago. She has had extensive GI work-up in the past. Patient last had capsule endoscopy in November 2017 that showed nonbleeding duodenal ectasia and diverticulosis of the sigmoid colon was treated with argon plasma coagulation. Patient stated that its been a while since she has had endoscopy or colonoscopy. She was seen today in the transfusion center and hemoglobin was reportedly around 6. Patient could not be transfused as she was found to be hypotensive. She admitted to feeling dizzy, had a headache, could only walk a few steps without feeling short of breath. She denied any chest pain or palpitation. Vitals in ED showed blood pressure 73/24, heart rate 70, respiratory 24, t emperature 96.2, SPO2 was 86% on room air. Her WBC count was 2.4, (patient is chronically low), hemoglobin 4.8, platelet count was 86( chronically low). Reticulocyte count is 3.97. INR 4.9, sodium 144, potassium 4.5, chloride 101, carbon 27, BUN 46, creatinine 1.51, previous creatinine was 1.19. Ferritin is 86, iron sat is 22.7, TIBC 238, iron is 54, LFTs are unremarkable. Albumin is 2.4 [facility] Medical History Abdominal distension Adenomatous colon polyp Anemia Anemia in chronic kidney disease Anxiety Atrial fibrillation Bilateral leg edema Cardiac pacemaker in situ Carotid bruit Cholelithiasis Chronic heart failure with preserved ejection fraction (HFpEF) Cirrhosis Cirrhosis of liver with ascites CKD (chronic kidney disease) COPD (chronic obstructive pulmonary disease) Depression Depression Diverticulosis GERD (gastroesophageal reflux disease) GI bleed GI bleeding HLD (hyperlipidemia) Hypokalemia Hypotension Iron deficiency Irregular heart beat Kidney disease jail current use of anticoagulant Longstanding persistent atrial fibrillation Nicotine dependence Non-rheumatic aortic stenosis Non-rheumatic tricuspid valve insufficiency Nonrheumatic mitral (valve) insufficiency Pancytopenia Pericardial effusion Pleural effusion PVC's (premature ventricular contractions) Secondary pulmonary hypertension Smoker Tachycardia-bradycardia syndrome Thrombocytopenia Type 2 diabetes mellitus Typical atrial flutter Home Medications ferrous sulfate 325 mg (65 mg iron) tablet 650 mg PO QHS SUPPLEMENT 04/02/15 [History Last Taken 01/18/21] folic acid 1 mg tablet 1 mg PO DAILY@0800 supplement 04/30/15 [History Last Taken 01/17/21] cyanocobalamin (vitamin B-12) 2,500 mcg tablet 2,500 mcg PO DAILY vitamin 06/10/16 [History Last Taken 01/17/21] magnesium 250 mg tablet 250 mg PO DAILY supplement 05/24/17 [History Last Taken 01/17/21] cholecalciferol (vitamin D3) 25 mcg (1,000 unit) capsule 1,000 unit PO DAILY SUPPLEMENT 04/07/19 [History Last Taken 01/17/21] darbepoetin peace in polysorbat 200 mcg/0.4 mL in polysorbate injection syringe 0.4 ml IM TH BLOOD 04/29/20 [History Last Taken 01/13/21] pantoprazole 40 mg tablet,delayed release 40 mg PO BID gerd 30 days #60 tabs 06/21/20 [Rx Last Taken 01/17/21] hydrocodone-acetaminophen 5-325mg 5mg-325mg 0.5 - 1 tab PO Q8H PRN Pain 01/19/21 [History Last Taken 01/19/21] levothyroxine 100 mcg tablet 100 mcg PO DAILY THYROID 01/19/21 [History Last Taken 01/17/21] warfarin 1 mg tablet 2 mg PO .COMPLEX 2nd rx for dose clarification #180 tabs 01/27/21 [Rx Last Taken Unknown] venlafaxine 37.5 mg tablet 37.5 mg PO BID DEPRESSION 05/03/21 [History Last Taken Unknown] metoprolol succinate 25 mg tablet,extended release 24 hr 12.5 mg PO BID 90 days #90 tabs 09/08/21 [Rx Last Taken Unknown] furosemide 40 mg tablet 40 mg PO BID #180 tabs 12/21/21 [Rx Last Taken Unknown] warfarin 2 mg tablet 2 mg PO .COMPLEX 2nd RX for dose clarification #180 tabs 03/06/22 [Rx Last Taken Unknown] potassium chloride 20 mEq tablet,extended release(part/cryst) 20 meq PO BID SUPPLEMENT #180 tabs 03/15/22 [Rx Last Taken Unknown] Allergy/AdvReac Type Severity Reaction Status Date / Time amiodarone AdvReac vomiting, Verified 03/31/22 09:02 poor balance, dizziness digoxin AdvReac nausea, Verified 03/31/22 09:02 dry heaves lorazepam [From Ativan] AdvReac Unknown Verified 03/31/22 09:02 meloxicam [From Mobic] AdvReac Unknown Verified 03/31/22 09:02 nortriptyline HCl AdvReac Unknown Verified 03/31/22 09:02 [From Pamelor] zolpidem tartrate AdvReac Unknown Verified 03/31/22 09:02 [From Ambien] Family History Mother Cancer lung and renal Father Heart disease Surgical History History of cardioversion (10/2015) History of incision of pericardium History of left heart catheterization (07/17/08) History of mitral valve replacement with mechanical valve (07/22/08) History of tubal ligation Presence of permanent cardiac pacemaker (08/30/18) Social History Smoking Status: Current every day smoker tobacco type: cigarettes Tobacco: How many years used: 60 alcohol intake: never substance use type: does not use caffeine: Yes Type: carbonated beverages what type of physical activity do you participate in: none seatbelt use: always do you feel safe at home: Yes ROS ROS Narrative Constitutional: Reports: Malaise, Weakness, Fatigue. Denies: Anorexia, Chills, Fever, Night Sweats, Weight Change Eyes: Denies: Blurred vision, Cataracts, Conjunctivae Inflammation, Pain, Redness, Vision Change HEENT: Denies: Difficulty Hearing, Difficulty Swallowing, Head Aches, Hearing Changes, Sinus Congestion, Sinus Drainage Cardiovascular: Admits to dizziness denies: Chest Pain, Orthopnea, Palpitations Respiratory: Denies: Cough, Shortness of breath at rest, Sputum production Gastrointestinal: Admits to melena and hematochezia denies: Abdominal Pain, Nausea, Vomiting Genitourinary: Denies: Dysuria Musculoskeletal: Denies: Joint Pain, Joint stiffness, Joint swelling, Joint Tenderness Skin: Denies: Rash, Wounds Neurological: Denies: Numbness, Tingling, Focal weakness Vital Signs Vital Signs Vital Signs: 03/31/22 08:50 03/31/22 09:02 03/31/22 09:20 Temperature 96.2 F L 96.8 F L Temperature Source Temporal Temporal Pulse Rate 70 70 Respiratory Rate 24 H 22 H Respiratory Effort Normal Non-Labored Respiratory Depth Respiratory Pattern Normal Blood Pressure 73/24 L 73/38 L Blood Pressure [BP] Blood Pressure Mean 40 49 Blood Pressure Mean [BP] Blood Pressure Source Monitor Blood Pressure Source [BP] Blood Pressure Position Semi-Fowlers Blood Pressure Position [BP] Blood Pressure Location Left Arm Blood Pressure Location [BP] Pulse Ox 86 100 Oxygen Delivery Method Room Air Nasal Cannula Oxygen Flow Rate (L/min) 2 03/31/22 09:25 03/31/22 09:30 03/31/22 09:35 Temperature 96.6 F L 96.7 F L 96.6 F L Temperature Source Temporal Temporal Temporal Pulse Rate 74 71 70 Respiratory Rate 21 H 18 20 H Respiratory Effort Respiratory Depth Respiratory Pattern Blood Pressure 131/98 H 84/31 L 84/44 L Blood Pressure [BP] Blood Pressure Mean 109 48 57 Blood Pressure Mean [BP] Blood Pressure Source Monitor Monitor Monitor Blood Pressure Source [BP] Blood Pressure Position Semi-Fowlers Semi-Fowlers Semi-Fowlers Blood Pressure Position [BP] Blood Pressure Location Left Arm Left Arm Left Arm Blood Pressure Location [BP] Pulse Ox 94 97 97 Oxygen Delivery Method Nasal Cannula Nasal Cannula Nasal Cannula Oxygen Flow Rate (L/min) 2 2 2 03/31/22 10:36 03/31/22 10:43 03/31/22 11:00 Temperature 96.9 F L 96.8 F L Temperature Source Temporal Temporal Pulse Rate 62 51 L 70 Respiratory Rate 17 22 H 19 H Respiratory Effort Respiratory Depth Respiratory Pattern Blood Pressure 77/60 L 155/62 H 90/34 L Blood Pressure [BP] Blood Pressure Mean 65 93 52 Blood Pressure Mean [BP] Blood Pressure Source Monitor Blood Pressure Source [BP] Blood Pressure Position Semi-Fowlers Blood Pressure Position [BP] Blood Pressure Location Left Arm Blood Pressure Location [BP] Pulse Ox 91 91 98 Oxygen Delivery Method Nasal Cannula Nasal Cannula Nasal Cannula Oxygen Flow Rate (L/min) 2 2 2 03/31/22 12:00 03/31/22 12:00 03/31/22 11:45 Temperature 97.9 F Temperature Source Temporal Pulse Rate 70 70 70 Respiratory Rate 21 H 18 Respiratory Effort Respiratory Depth Respiratory Pattern Blood Pressure 87/43 L 81/53 L Blood Pressure [BP] Blood Pressure Mean 57 62 Blood Pressure Mean [BP] Blood Pressure Source Monitor Monitor Blood Pressure Source [BP] Blood Pressure Position Semi-Fowlers Semi-Fowlers Blood Pressure Position [BP] Blood Pressure Location Left Arm Left Arm Blood Pressure Location [BP] Pulse Ox 100 100 Oxygen Delivery Method Nasal Cannula Nasal Cannula Oxygen Flow Rate (L/min) 2 2 03/31/22 12:00 03/31/22 12:15 03/31/22 12:30 Temperature Temperature Source Pulse Rate 70 70 Respiratory Rate 22 H 20 H Respiratory Effort Normal Non-Labored Respiratory Depth Normal Respiratory Pattern Normal Blood Pressure 87/35 L 81/29 L Blood Pressure [BP] Blood Pressure Mean 52 46 Blood Pressure Mean [BP] Blood Pressure Source Monitor Monitor Blood Pressure Source [BP] Blood Pressure Position Semi-Fowlers Semi-Fowlers Blood Pressure Position [BP] Blood Pressure Location Left Arm Left Arm Blood Pressure Location [BP] Pulse Ox 100 98 Oxygen Delivery Method Nasal Cannula Nasal Cannula Nasal Cannula Oxygen Flow Rate (L/min) 2 2 2 03/31/22 12:45 03/31/22 12:48 03/31/22 13:00 Temperature Temperature Source Pulse Rate 70 70 Respiratory Rate 23 H 22 H Respiratory Effort Respiratory Depth Respiratory Pattern Blood Pressure 88/40 L Blood Pressure [BP] 86/38 L Blood Pressure Mean 56 Blood Pressure Mean [BP] 54 Blood Pressure Source Monitor Blood Pressure Source [BP] Monitor Blood Pressure Position Semi-Fowlers Blood Pressure Position [BP] Semi-Fowlers Blood Pressure Location Left Arm Blood Pressure Location [BP] Left Arm Pulse Ox 98 99 100 Oxygen Delivery Method Nasal Cannula Nasal Cannula Nasal Cannula Oxygen Flow Rate (L/min) 2 2 2 Weight Weight: 42.9 kg Body Mass Index (BMI) 17.3 Physical Exam Narrative Physical exam: General: Alert, Oriented x3, Cooperative, appears very frail and cachectic on 2 L of oxygen, on 2L oxygen HEENT: Atraumatic Oral: Moist Mucosa Neck: Supple Lungs: Diminished to auscultation Cardiovascular: HS I+II, regular, no murmurs Abdomen: Bowel Sounds Present, Soft, Non Tender Extremities: No edema Skin: No rashes, No breakdown Neurological: Grossly intact Psych/Mental Status: Appropriate Results Lab / Micro Data Result Diagrams: 03/31/22 09:18 03/31/22 09:18 Labs: Laboratory Results - last 24 hr 03/30/22 09:14: Blood Type A POSITIVE, Antibody Screen NEGATIVE, Crossmatch See Detail 03/31/22 09:18: WBC 2.4 L, RBC 1.59 L, Hgb 4.8 L*, Hct 15.5 L, MCV 97.5, MCH 30.2, MCHC 31.0 L, RDW Std Deviation 56.4 H, RDW Coeff of Uriel 16.9 H, Plt Count 86 L, MPV 11.1, Immature Gran % (Auto) 0.800, Neut % (Auto) 80.0 H, Lymph % (Auto) 12.9 L, [place] % (Auto) 6.3, Eos % (Auto) 0.0, Baso % (Auto) 0.0, Absolute Neuts (auto) 1.9 L, Absolute Lymphs (auto) 0.31 L, Nucleated RBC % 0, Differential Comment COMMENT, Diff Path Review December, Platelet Estimate MOD 03/31/22 09:18: PT 45.4 H, INR 4.9 H* 03/31/22 09:18: Sodium 144, Potassium 4.5, Chloride 111 H, Carbon Dioxide 27.0, Anion Gap 6, BUN 46 H, Creatinine 1.51 H, Estim Creat Clear Calc 20.98, Est GFR (MDRD) Af Amer 43 L, Est GFR (MDRD) Non-Af 35 L, BUN/Creatinine Ratio 30.5 H, Glucose 168 H, Calcium 8.1 L, Total Bilirubin 0.30, AST 7 L, ALT 7 L, Alkaline Phosphatase 76, Total Protein 5.7 L, Albumin 2.4 L, Globulin 3.3, Albumin/Globulin Ratio 0.7 L 03/31/22 09:18: Immature Plt Fraction 4.9, Retic Count 3.97 H, Immature Retic Fraction 18.30 H, Retic Hgb Equivalent 28.1 L 03/31/22 09:18: Iron 54, TIBC 238 L, Iron Saturation 22.7, Ferritin 86, Lactate Dehydrogenase 138 Assessment & Plan Assessment/Plan (1) Anemia requiring transfusions: (2) Supratherapeutic INR: (3) Acute GI bleeding: PLAN: Plan 1. Acute on chronic severe anemia secondary to Acute GI bleed in a patient with history of recurrent GI bleed In the setting of supratherapeutic INR of 4.9 today ; patient is on chronic anticoagulation with Coumadin Patient is admitted hemoglobin 4.8, follows longitudinally with hematology in the [facility] Admitted with hemoglobin of 4.8; currently being transfused 2 units of packed RBCs Will transfuse another 2 units of packed RBC H&H every 6h. Check haptoglobin and LDH Hold oral iron for now. ICU consult 2. Acute on chronic GI bleed, patient reports melena stools, occasional intermittent bloody stools She cannot remember the last time she had an upper endoscopy or colonoscopy. A capsule endoscopy in 2018 showed duodenal ectasias and sigmoid diverticulosis that was treated with argon beam therapy We will start IV PPI drip, GI consult, stool for occult blood Clear liquid diet until stated otherwise by GI 3. Pancytopenia in the setting of chronic liver disease/PAN cirrhosis Patient's current WBC count and platelets remain about the same 4. Supratherapeutic INR, status post mechanical valve replacement, on chronic Coumadin INR is 4.9, oriented. 1 unit of FFP will be given, trend INR in the am 5. Acute hypotension secondary to #1, responsive to blood transfusions, POA No need for pressors now, continue to monitor 6. Hypothyroidism, continue on synthroid 7. Anxiety and depression. Continue Venlafaxine 8. DVT PPx- SCDs I discussed and explained in details the various types of CODE STATUS-full code, DNR CCA, DNR CC. Patient chose to be full code. Time spent discussing CODE STATUS 16 minutes Charges/Coding Visit Charges Inpatient E&M: 35841 Init Hosp L3 Procedures Hospitalists Procedures: 93060 Advncd Care Plan 30 Min
--- NOTE | 2022-03-31 15:18 | CASEMGMT ---
RN SILVIO JUSTICE [employer] DEPUTY CLERK CM to room to meet with patient for initial transition planning/care coordination assessment. RN SILVIO introduced self and role at [facility]. Pt voices understanding and consents to assessment at this time. Pt resting in bed in no distress at this time. Pt is A/O at this time and answers all questions appropriately. Care providers, pharmacy, and demographics verified/updated at this time. PCP: Dr Muñoz Specialists: Dr Thomas--hepatology, Dr Mendoza-cardiology, Dr Galvan--pulmonology Preferred Pharmacy: [facility] Retail Insurance: MCR A only. Pt states she has been fighting with [facility], stating, They won't give me my B back. She reports she keeps being told different things from different people on when she can sign up for it again and states, I'm about ready to give up on it. Pt also states she just turned in some information for financial aide to [facility] a couple months ago. Yaz SMALL, made aware of above. Prescription Benefit: None. LNOK/support system: Pt states she just lost her best friend of 30 yrs 03/26/22. Daughter last year from [employer] and then less than 10 weeks thereafter (November 2020). Yaz SMALL, aware. Pt states she has 3 living sons who are supportive. Living Arrangements: Lives alone in 2-story home w/basement. FFSU. Laundry is also on ground floor. She states she is independent w/ADL's and IADL's. Son, Gidlardo, stops in to see her every morning and son, Aaron, stops in to see her every evening and assist her if needed. Son, Gildardo, gets her groceries. She is able to prepare her own meals and they sometimes will bring her prepared meals also. She manages her own medications. 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 Her sons provide transportation. DME: States has the following DME: shower chair, RTS, quad cane, walker, WC for community distances, grab bars, nebulizer, and O2 through [employer] @ 2 L/M @ HS only. She has concentrator but no portability. Pt states no need for further DME at this time. She does not a pulse ox and does not check her blood sugars, stating her PCP monitors her Hgb A1C. She does not have a medical alert button and declines wanting list. HHC/SNF: No history of either. Pt wishes to return home and states has no concerns with going home at time of discharge. She denies need for HHC. CM to follow for any increase in home oxygen needs and any further discharge planning/needs. Pt voices no further concerns/needs at this time. Advised pt to ask for CM if any further questions/concerns/needs arise. Voices understanding. RN CM broached the topic of Palliative care and information provided. Pt declines wanting referral made at this time. PLAN: Home w/family support and discharge plans in place. CM to follow for increase in O2 needs @ d/c. Jorge A BLOOD RN SILVIO
[2022-03-31 15:32] LABS: Hematocrit 26.5 % (37-47); Hemoglobin 8.5 g/dL (12.0-15.0); POSITIVE COUNT YES
[2022-03-31 17:24] LABS: International Normalized Ratio 2.9; Prothrombin Time (Protime)PT. 30.3 SECONDS (11.7-14.9)
--- NOTE | 2022-03-31 17:50 | PCM.CONS.GEN ---
Assessment & Plan Assessment/Plan (1) Acute GI bleeding: PLAN: Recommend PPI drip, octreotide, ceftriaxone 1 g IV every 24 hours. Also recommend an upper and lower endoscopy to evaluate upper lower GI tract and normal she will capsule study to look for signs of acute GI blood loss. She was explained alternatives, risk, benefits include standing bleeding, infection, sepsis, perforation, need for emergent . She will have an ASA of 3. (2) Cirrhosis: PLAN: At this time she seems to have no signs of decompensated liver disease. She is not experiencing any jaundice, encephalopathy or ascites at this time. However she could be experiencing acute GI bleed secondary to variceal, thrombocytopenia, portal gastropathy, portal hypertension, gastric antral vascular ectasia or Jose's erosions secondary to cirrhosis. HPI Consult Data Date of Consult: 04/01/22 HPI Narrative HPI Narrative: EMANI LOUIS, is a 81 F who presents to the ED with fatigue and shortness of breath. She was at the infusion center as she had a hemoglobin of 6.3 recently.? She was supposed to have a transfusion of packed red blood cells.? She states has had problems with intermittent bloody diarrhea her last episode being longer than a week ago.? Her passenger conductor sent her for transfusion.? She states that she had low blood pressure there and has had a headache over the last few days which is resolving.? She is chronically short of breath.? She was sent to the emergency department prior to starting her transfusion of packed red blood cells because of low blood pressure.? She reports diarrhea.? She denies any chest pain or new shortness of breath but states she feels occasionally lightheaded and dizzy.? She denies any recent bloody bowel movements or other bleeding diathesis. She is a lady with a history of coronary artery disease, mitral valve disease status post replacement with a [address] [employer] mechanical valve.? In addition she is status post permanent pacemaker implantation for which she continues to be seen in the office.? She also has a history of chronic persistent atrial fibrillation and repeated anemias for which she is receiving recurrent blood transfusions as well as evaluations.? She tells me that she has received approximately 12 units of packed red blood cells, 2 units of plasma and 2 iron infusions in the last 10 weeks.? In November 2017, she had capsule endoscopy which demonstrated nonbleeding duodenal ectasia, she also had diverticulosis of the sigmoid colon which was treated with argon plasma coagulation.? In 2017 she had had a GI radionuclide scan which demonstrated no focal areas, in October 2016 she had an EGD which demonstrated normal esophagus stomach and duodenum. ? As part of her workup she also had a transthoracic echo in December 2017 which demonstrated the left ventricular size being small estimated ejection fraction of 58%.? The right ventricle was dilated with pacer wires noted in the right ventricle and the right ventricular systolic pressure was estimated at 73 mmHg consistent with moderately severe pulmonary hypertension.? The left atrium was moderately dilated the mitral valve had a peak gradient of 25 mmHg and a mean gradient of 12 mmHg. She continues to abuse tobacco products.? [facility] Medical History (Updated 03/31/22 @ 17:[address] Samuel Friend, DO) Abdominal distension Adenomatous colon polyp Anemia Anemia in chronic kidney disease Anxiety Atrial fibrillation Bilateral leg edema Cardiac pacemaker in situ Carotid bruit Cholelithiasis Chronic heart failure with preserved ejection fraction (HFpEF) Cirrhosis Cirrhosis of liver with ascites CKD (chronic kidney disease) COPD (chronic obstructive pulmonary disease) Depression Depression Diverticulosis GERD (gastroesophageal reflux disease) GI bleed GI bleeding HLD (hyperlipidemia) Hypokalemia Hypotension Iron deficiency Irregular heart beat Kidney disease prison current use of anticoagulant Longstanding persistent atrial fibrillation Nicotine dependence Non-rheumatic aortic stenosis Non-rheumatic tricuspid valve insufficiency Nonrheumatic mitral (valve) insufficiency Pancytopenia Pericardial effusion Pleural effusion PVC's (premature ventricular contractions) Secondary pulmonary hypertension Smoker Tachycardia-bradycardia syndrome Thrombocytopenia Type 2 diabetes mellitus Typical atrial flutter Home Medications ferrous sulfate 325 mg (65 mg iron) tablet 650 mg PO QHS SUPPLEMENT 04/02/15 [History Last Taken 01/18/21] folic acid 1 mg tablet 1 mg PO DAILY@0800 supplement 04/30/15 [History Last Taken 01/17/21] cyanocobalamin (vitamin B-12) 2,500 mcg tablet 2,500 mcg PO DAILY vitamin 06/10/16 [History Last Taken 01/17/21] magnesium 250 mg tablet 250 mg PO DAILY supplement 05/24/17 [History Last Taken 01/17/21] cholecalciferol (vitamin D3) 25 mcg (1,000 unit) capsule 1,000 unit PO DAILY SUPPLEMENT 04/07/19 [History Last Taken 01/17/21] darbepoetin peace in polysorbat 200 mcg/0.4 mL in polysorbate injection syringe 0.4 ml IM TH BLOOD 04/29/20 [History Last Taken 01/13/21] pantoprazole 40 mg tablet,delayed release 40 mg PO BID gerd 30 days #60 tabs 06/21/20 [Rx Last Taken 01/17/21] hydrocodone-acetaminophen 5-325mg 5mg-325mg 0.5 - 1 tab PO Q8H PRN Pain 01/19/21 [History Last Taken 01/19/21] levothyroxine 100 mcg tablet 100 mcg PO DAILY THYROID 01/19/21 [History Last Taken 01/17/21] warfarin 1 mg tablet 2 mg PO .COMPLEX 2nd rx for dose clarification #180 tabs 01/27/21 [Rx Last Taken Unknown] venlafaxine 37.5 mg tablet 37.5 mg PO BID DEPRESSION 05/03/21 [History Last Taken Unknown] metoprolol succinate 25 mg tablet,extended release 24 hr 12.5 mg PO BID 90 days #90 tabs 09/08/21 [Rx Last Taken Unknown] furosemide 40 mg tablet 40 mg PO BID #180 tabs 12/21/21 [Rx Last Taken Unknown] warfarin 2 mg tablet 2 mg PO .COMPLEX 2nd RX for dose clarification #180 tabs 03/06/22 [Rx Last Taken Unknown] potassium chloride 20 mEq tablet,extended release(part/cryst) 20 meq PO BID SUPPLEMENT #180 tabs 03/15/22 [Rx Last Taken Unknown] Allergy/AdvReac Type Severity Reaction Status Date / Time amiodarone AdvReac vomiting, Verified 03/31/22 09:02 poor balance, dizziness digoxin AdvReac nausea, Verified 03/31/22 09:02 dry heaves lorazepam [From Ativan] AdvReac Unknown Verified 03/31/22 09:02 meloxicam [From Mobic] AdvReac Unknown Verified 03/31/22 09:02 nortriptyline HCl AdvReac Unknown Verified 03/31/22 09:02 [From Pamelor] zolpidem tartrate AdvReac Unknown Verified 03/31/22 09:02 [From Ambien] Family History Mother Cancer lung and renal Father Heart disease Surgical History History of cardioversion (10/2015) History of incision of pericardium History of left heart catheterization (07/17/08) History of mitral valve replacement with mechanical valve (07/22/08) History of tubal ligation Presence of permanent cardiac pacemaker (08/30/18) Social History Smoking Status: Current every day smoker tobacco type: cigarettes Tobacco: How many years used: 60 alcohol intake: never substance use type: does not use caffeine: Yes Type: carbonated beverages what type of physical activity do you participate in: none seatbelt use: always do you feel safe at home: Yes ROS ROS Narrative Constitutional: Reports: Malaise, Weakness, Fatigue. Denies: Anorexia, Chills, Fever, Night Sweats, Weight Change Eyes: Denies: Blurred vision, Cataracts, Conjunctivae Inflammation, Pain, Redness, Vision Change HEENT: Denies: Difficulty Hearing, Difficulty Swallowing, Head Aches, Hearing Changes, Sinus Congestion, Sinus Drainage Cardiovascular: Admits to dizziness denies: Chest Pain, Orthopnea, Palpitations Respiratory: Denies: Cough, Shortness of breath at rest, Sputum production Gastrointestinal: Admits to melena and hematochezia denies: Abdominal Pain, Nausea, Vomiting Genitourinary: Denies: Dysuria Musculoskeletal: Denies: Joint Pain, Joint stiffness, Joint swelling, Joint Tenderness Skin: Denies: Rash, Wounds Neurological: Denies: Numbness, Tingling, Focal weakness Physical Exam Narrative Physical exam: General: Alert, Oriented x3, Cooperative, appears very frail and cachectic on 2 L of oxygen, on 2L oxygen HEENT: Atraumatic Oral: Moist Mucosa Neck: Supple Lungs: Diminished to auscultation Cardiovascular: HS I+II, regular, no murmurs Abdomen: Bowel Sounds Present, Soft, Non Tender Extremities: No edema Skin: No rashes, No breakdown Neurological: Grossly intact Psych/Mental Status: Appropriate Medical Records Data Medical Nutrition Assessment Dietitian: Malnutrition Criteria Met Start: 03/31/22 13:08 Freq: Status: Active Protocol: Document 03/31/22 14:01 RMA (Rec: 03/31/22 14:02 RMA [id number]) Nutrition Malnutrition Evidence of Malnutrition Exists Yes Malnutrition (severe): Chronic Evidenced By Suboptimal Energy Intake ( Severe),Weight Loss (Severe) Intake Problem Inadequate Oral Intake Etiology related to altered GI function Signs/Symptoms as evidenced by NPO Status Active Problem Clinical Problem Chronic Disease or Condition Related Malnutrition Etiology Severe protein-calorie malnutrition in the context of chronic disease related to altered GI function and inadequate oral intake Signs/Symptoms as evidenced by weight loss~11 % in less than 2 months, BMI 17.3, muscle/fat wasting in the face, clavicle, arms and legs, currently NPO and PO meeting less than 50% estimated nutrition needs x past 1 month Status Active Problem Recommendation Dietitian Recommendations/Changes Recommend advance PO diet as medically able to Transitional with goal of regular diet; carb-controlled as needed. Ensure clear as diet advanced from NPO. Glucerna shake as able for weight gain and nutrient repletion. Consider parenteral nutrition support if unable to advance diet in next 24-48 hours especially given signs/ symptoms of severe malnutrition. Lab / Micro Data Result Diagrams: 04/01/22 06:00 04/01/22 06:00 Labs: Laboratory Results - last 24 hr 03/30/22 09:14: Blood Type A POSITIVE, Antibody Screen NEGATIVE, Crossmatch See Detail 03/30/22 09:14: Crossmatch See Detail 03/31/22 09:18: WBC 2.4 L, RBC 1.59 L, Hgb 4.8 L*, Hct 15.5 L, MCV 97.5, MCH 30.2, MCHC 31.0 L, RDW Std Deviation 56.4 H, RDW Coeff of Uriel 16.9 H, Plt Count 86 L, MPV 11.1, Immature Gran % (Auto) 0.800, Neut % (Auto) 80.0 H, Lymph % (Auto) 12.9 L, [place] % (Auto) 6.3, Eos % (Auto) 0.0, Baso % (Auto) 0.0, Absolute Neuts (auto) 1.9 L, Absolute Lymphs (auto) 0.31 L, Nucleated RBC % 0, Differential Comment COMMENT, Diff Path Review May eliana, Platelet Estimate MOD 03/31/22 09:18: PT 45.4 H, INR 4.9 H* 03/31/22 09:18: Sodium 144, Potassium 4.5, Chloride 111 H, Carbon Dioxide 27.0, Anion Gap 6, BUN 46 H, Creatinine 1.51 H, Estim Creat Clear Calc 20.98, Est GFR (MDRD) Af Amer 43 L, Est GFR (MDRD) Non-Af 35 L, BUN/Creatinine Ratio 30.5 H, Glucose 168 H, Calcium 8.1 L, Total Bilirubin 0.30, AST 7 L, ALT 7 L, Alkaline Phosphatase 76, Total Protein 5.7 L, Albumin 2.4 L, Globulin 3.3, Albumin/Globulin Ratio 0.7 L 03/31/22 09:18: Immature Plt Fraction 4.9, Retic Count 3.97 H, Immature Retic Fraction 18.30 H, Retic Hgb Equivalent 28.1 L 03/31/22 09:18: Iron 54, TIBC 238 L, Iron Saturation 22.7, Ferritin 86, Lactate Dehydrogenase 138 03/31/22 15:20: Hgb 8.5 L, Hct 26.5 L 03/31/22 17:05: PT 30.3 H, INR 2.9 Charges/Coding Visit Charges Inpatient E&M: 54681 Init Hosp L2
[2022-03-31 21:51] LABS: Hematocrit 26.1 % (37-47); Hemoglobin 8.3 g/dL (12.0-15.0)
[2022-04-01] VITALS (37 sets, daily range): BP systolic 81–120; BP diastolic 34–70; PULSE 70–181; RESP 18–32; TEMP 36.6–37.5; O2SAT 76–100
--- NOTE | 2022-04-01 | EGD_PTH ---
PATIENT: EMANI LOUIS LOC: ICU U#:[id number] AGE/SX: 81/F ROOM: ICU01 RE03/31/[address]: Dr. Edilson Wise MD : [id number] BED: 1 DIS: 04/03/2022 SPEC #: [id number] RECD: 04/02/22 10:29 STATUS: ABBY REQ #: [id number] KACY: 04/01/22 00:[address]: Jimmie Brownlee DEPT: SURGICAL PATHOLOGY RECD BY: Ernesto Alvarenga ENTERED: 04/03/22 12:28 SP TYPE: EGD BIOPSY OTHR DR: Danna Gale, BUILDING PRINCIPAL-C MD Dr. Martin Warner MD Dr. Derek Brown, DO Dr. Juliet Philip Dr., MD Dr. Jodi Hannan, MD Dr. Prakash Chand, MD Dr. Tanmay Panchabhai, MD Dr. Victor Velasquez, MD Christina Muller, BUILDING PRINCIPAL-C Deysi Meneses BUILDING PRINCIPAL-C Cherie Patricia NP-C Tissues: Duodenum, NOS Procedures: Surgery Specimen Level IV Comments: @ Ordering doctor for SUIV edited from to @ by CHIKA at 04/03/22 144 @ Submitting doctor edited from to @ by CHIKA at 04/03/221440 [place]ER [place] [place] DIAGNOSIS: Acute GI bleeding, cirrhosis TISSUE SUBMITTED: Duodenal bulb MICROSCOPIC DIAGNOSIS Duodenal bulb, biopsy: A fragment of duodenal mucosa with extensive gastric metaplasia, mild chronic inflammation and congestion. TREVER:kash 04/04/2022 MICROSCOPIC DESCRIPTION Slides are reviewed. GROSS DESCRIPTION Received in fixative is one container labeled with the patient's name and designated duodenal bulb. The specimen consists of one irregular fragment of light last soft tissue that measures 0.3 x 0.3 x 0.1 cm. The specimen is totally submitted in one cassette. / TREVER:kash 04/03/2022 TC:5 CPT: 43822
[2022-04-01 06:16] LABS: Absolute Lymphocyte Count 0.45 X10^3/uL (0.83-4.51); Absolute Neutrophil Count 2.4 X10^3/uL (2.0-7.7); Basophil# 0.01 X10^3/uL; Basophil% 0.3 % (0-1); Hemoglobin 7.8 g/dL (12.0-15.0); Lymphocyte # 0.45 X10^3/ul (0.83-4.51); Lymphocyte % 14.7 % (19-41); Mean Corp Hgb Conc 31.2 g/dL (32-36); Mean Corpuscular Hgb 29.1 pg (27.0-32.0); Mean Corpuscular Volume 93.3 fL (81-99); Mean Platelet Vol. 11.2 fl (6.2-12.0); Monocyte# 0.22 X10^3/uL; Monocyte% 7.2 % (0-10); NRBC Flagged by Analyzer 0 % (0-5); Neutrophil # 2.37 X10^3/uL (2.7-7.7); Neutrophil % 77.5 % (47-70); POSITIVE COUNT YES; POSITIVE DIFFERENTIAL YES; Platelet Count 92 K/mm3 (150-450); RBC Distribution Width CV 15.9 % (11.6-14.6); RBC Distribution Width SD 51.8 fl (35.1-43.9); Red Blood Count 2.68 M/mm3 (4.2-5.4); White Blood Count 3.1 K/mm3 (4.4-11.0)
[2022-04-01 06:21] LABS: Differential Indicated SCAN CRITERIA MET
[2022-04-01 06:24] LABS: International Normalized Ratio 3.6; Prothrombin Time (Protime)PT. 35.5 SECONDS (11.7-14.9)
[2022-04-01 06:31] LABS: ALB/GLOB Ratio 0.7 RATIO (0.9-2.4); AST(SGOT) 12 U/L (15-37); Alanine Aminotransfer ALT/SGPT 13 U/L (13-56); Albumin, Serum 2.5 g/dL (3.2-5.0); Alkaline Phosphatase 75 U/L (45-117); Anion Gap 6 (5-15); BUN 47 mg/dL (7-18); BUN/Creat Ratio 34.6 RATIO (10-20); Calcium,Total 8.1 mg/dL (8.5-10.1); Chloride 112 mmol/L (98-107); Creatinine, Serum 1.36 mg/dL (0.55-1.02); EST Glomerular Filtration Rate 40 mL/min (>60); Est Glom Filt Rate - Afr Amer 48 mL/min (>60); Estimated Creatinine Clearance 22.72 ml/min; Globulin 3.4 g/dL (2.2-4.2); Glucose 134 mg/dL (74-106); Potassium 3.9 mmol/L (3.5-5.1); Protein, Total 5.9 g/dL (6.4-8.2); Sodium Level 143 mmol/L (136-145)
--- NOTE | 2022-04-01 06:36 | PCM.PN.INT ---
Assessment & Plan Assessment/Plan (1) Chronic gastrointestinal bleeding: (2) Supratherapeutic INR: (3) History of mitral valve replacement with mechanical valve: (4) Secondary pulmonary hypertension: (5) Pancytopenia: PLAN: Plan RECOMMENDATIONS: 1. Transfuse 1 unit PRBC 2. Keep hemoglobin greater than 8 as long as patient is having stigmata of ongoing bleeding 3. Recheck INR after FFP. Goal 2.5-3.5 4. Wean oxygen as tolerated 5. Encourage incentive spirometer 6. Appreciate GI recommendations IMPRESSIONS: 1.??Acute on chronic blood loss anemia The patient does have a history of prior admissions for acute on chronic blood loss anemia, the source of which has never been identified.? The patient will receive transfusion of blood products in hopes of achieving a hemoglobin greater than 8 g/dL given signs of ongoing bleeding.? Patient reportedly is to have an EGD later today. Fluid boluses can be used as necessary.? Recommend inserting and maintaining 2 peripheral large bore IVs.? Patient placed on PPI drip. Defer to GI on transition to twice daily dosing. Patient does have elevated INR, but improved compared to admission 2.??Hemorrhagic shock The patient presented to the ICU in a hypotensive state.? There is concern that she may require vasopressors.? However, the patient refused to allow for a PICC line or central venous catheter to be placed.? We will challenge with fluids. Cannot exclude the need for Levophed. Await results of EGD 3.??Coagulopathy The patient is chronically anticoagulated with Coumadin due to a history of atrial fibrillation and mechanical valve.? Her INR is supratherapeutic at presentation.? INR slightly improved.? Continue to hold Coumadin. Would not normalize given patient's history of a mechanical heart valve 4.??Chronic hypoxemic respiratory failure The patient does have a baseline oxygen requirement of 2 L/min, which will be continued. Patient did receive significant volume yesterday, but is hypotensive, so we will hold on diuretics. 5.??Chronic atrial fibrillation/history of mitral valve replacement/hypothyroidism Complicates care, management, recovery and prognosis.? Continue home medications as indicated. Subjective Subjective Patient did okay overnight. Patient did end up receiving 2 units of FFP and 2 units of blood overnight. Nursing had reported to black bowel movements. Patient is not reporting any worsening abdominal pain. No chest pain or palpitations have been reported. Patient has been requiring 2 L nasal cannula to maintain saturations. Objective Data Objective Data Vital Signs: Vital Signs Temp Pulse Resp BP Pulse Ox O2 Del Method O2 Flow Rate 36.9 C 76 19 H 101/45 L 76 Nasal Cannula 2 04/01/22 02:00 04/01/22 04:00 04/01/22 05:00 04/01/22 05:00 04/01/22 05:00 04/01/22 05:00 04/01/22 05:00 FiO2 2 03/31/22 23:00 Oxygen Flow Rate (L/min) 2 Oxygen Delivery Method Nasal Cannula Weight: 42.9 kg Body Mass Index (BMI) 17.3 Intake & Output: Intake and Output for Last 24 Hours 03/30/22 03/31/22 04/01/22 23:59 23:59 23:59 Intake Total 1269.5 / 1269.5 Output Total 300 / 300 100 / 100 Balance 969.5 / 969.5 -100 / -100 Medical Nutrition Assessment Dietitian: Malnutrition Criteria Met Start: 03/31/22 13:08 Freq: Status: Active Protocol: Document 03/31/22 14:01 RMA (Rec: 03/31/22 14:02 RMA [id number]) Nutrition Malnutrition Evidence of Malnutrition Exists Yes Malnutrition (severe): Chronic Evidenced By Suboptimal Energy Intake ( Severe),Weight Loss (Severe) Intake Problem Inadequate Oral Intake Etiology related to altered GI function Signs/Symptoms as evidenced by NPO Status Active Problem Clinical Problem Chronic Disease or Condition Related Malnutrition Etiology Severe protein-calorie malnutrition in the context of chronic disease related to altered GI function and inadequate oral intake Signs/Symptoms as evidenced by weight loss~11 % in less than 2 months, BMI 17.3, muscle/fat wasting in the face, clavicle, arms and legs, currently NPO and PO meeting less than 50% estimated nutrition needs x past 1 month Status Active Problem Recommendation Dietitian Recommendations/Changes Recommend advance PO diet as medically able to Transitional with goal of regular diet; carb-controlled as needed. Ensure clear as diet advanced from NPO. Glucerna shake as able for weight gain and nutrient repletion. Consider parenteral nutrition support if unable to advance diet in next 24-48 hours especially given signs/ symptoms of severe malnutrition. Lab / Micro Data Attestation: I reviewed the patient's lab results. Result Diagrams: 04/01/22 06:00 04/01/22 06:00 Labs: Laboratory Results - last 24 hr 03/30/22 09:14: Blood Type A POSITIVE, Antibody Screen NEGATIVE, Crossmatch See Detail 03/30/22 09:14: Crossmatch See Detail 03/31/22 09:18: WBC 2.4 L, RBC 1.59 L, Hgb 4.8 L*, Hct 15.5 L, MCV 97.5, MCH 30.2, MCHC 31.0 L, RDW Std Deviation 56.4 H, RDW Coeff of Uriel 16.9 H, Plt Count 86 L, MPV 11.1, Immature Gran % (Auto) 0.800, Neut % (Auto) 80.0 H, Lymph % (Auto) 12.9 L, [place] % (Auto) 6.3, Eos % (Auto) 0.0, Baso % (Auto) 0.0, Absolute Neuts (auto) 1.9 L, Absolute Lymphs (auto) 0.31 L, Nucleated RBC % 0, Differential Comment COMMENT, Diff Path Review December foll, Platelet Estimate MOD 03/31/22 09:18: PT 45.4 H, INR 4.9 H* 03/31/22 09:18: Sodium 144, Potassium 4.5, Chloride 111 H, Carbon Dioxide 27.0, Anion Gap 6, BUN 46 H, Creatinine 1.51 H, Estim Creat Clear Calc 20.98, Est GFR (MDRD) Af Amer 43 L, Est GFR (MDRD) Non-Af 35 L, BUN/Creatinine Ratio 30.5 H, Glucose 168 H, Calcium 8.1 L, Total Bilirubin 0.30, AST 7 L, ALT 7 L, Alkaline Phosphatase 76, Total Protein 5.7 L, Albumin 2.4 L, Globulin 3.3, Albumin/Globulin Ratio 0.7 L 03/31/22 09:18: Immature Plt Fraction 4.9, Retic Count 3.97 H, Immature Retic Fraction 18.30 H, Retic Hgb Equivalent 28.1 L 03/31/22 09:18: Iron 54, TIBC 238 L, Iron Saturation 22.7, Ferritin 86, Lactate Dehydrogenase 138 03/31/22 15:20: Hgb 8.5 L, Hct 26.5 L 03/31/22 17:05: PT 30.3 H, INR 2.9 03/31/22 21:40: Hgb 8.3 L, Hct 26.1 L 04/01/22 06:00: WBC 3.1 L, RBC 2.68 L, Hgb 7.8 L, Hct 25.0 L, MCV 93.3, MCH 29.1, MCHC 31.2 L, RDW Std Deviation 51.8 H, RDW Coeff of Uriel 15.9 H, Plt Count 92 L, MPV 11.2, Immature Gran % (Auto) 0.300, Neut % (Auto) 77.5 H, Lymph % (Auto) 14.7 L, [place] % (Auto) 7.2, Eos % (Auto) 0.0, Baso % (Auto) 0.3, Absolute Neuts (auto) 2.4, Absolute Lymphs (auto) 0.45 L, Nucleated RBC % 0 04/01/22 06:00: Sodium 143, Potassium 3.9, Chloride 112 H, Carbon Dioxide 25.0, Anion Gap 6, BUN 47 H, Creatinine 1.36 H, Estim Creat Clear Calc 22.72, Est GFR (MDRD) Af Amer 48 L, Est GFR (MDRD) Non-Af 40 L, BUN/Creatinine Ratio 34.6 H, Glucose 134 H, Calcium 8.1 L, Total Bilirubin 0.50, AST 12 L, ALT 13, Alkaline Phosphatase 75, Total Protein 5.9 L, Albumin 2.5 L, Globulin 3.4, Albumin/Globulin Ratio 0.7 L 04/01/22 06:00: PT 35.5 H, INR 3.6 Micro: Microbiology 03/31/22 18:10 Stool Stool Occult Blood (TAMEKA) - Final Occult Blood Positive Physical Exam Narrative Patient remains on Protonix drip. Const alert, oriented x3 and no apparent distress General Appearance: frail HEENT normocephalic, head/scalp atraumatic and hearing grossly normal bilaterally HEENT Narrative: Slight temporal wasting noted Eyes PERRL, EOMs intact bilaterally, conjunctivae normal and no scleral icterus Neck no lymphadenopathy, supple and no JVD Resp normal respiratory effort, no retractions, no use of accessory muscles and clear to auscultation bilaterally Cardio regular rate, regular rhythm, S1 normal heart sound, S2 normal heart sound and no JVD Heart Sounds: murmur systolic II/ low-pitched early base GI soft to palpation, non-tender and non-distended GI Narrative: Slightly distended abdomen without fluid wave Extremity normal to inspection, full ROM and no clubbing, cyanosis or edema Skin no rashes or lesions noted, no wounds and skin turgor normal Skin Narrative: Minor superficial bruising noted Neuro oriented x3, CN's II-XII intact bilaterally, moves all extremities and no focal motor deficits Psych affect normal Charges/Coding Visit Charges Inpatient E&M: 30046 Subs Hosp L3
[2022-04-01 07:08] LABS: Differential Comment SCANNED; Platelet Estimate SLT DEC (ADEQ)
--- NOTE | 2022-04-01 07:42 | PCM.PN.HOSP ---
Subjective Subjective Follow-up on GI bleed/severe anemia: Patient was seen and examined. No acute events overnight. She has been transfused 1 unit of packed RBC. She is going for endoscopy this morning. She denies any dizziness or palpitation. Objective Data Objective Data Vital Signs: Vital Signs Temp Pulse Resp BP Pulse Ox O2 Del Method O2 Flow Rate 98.5 F 75 22 H 92/43 L 94 Nasal Cannula 2 04/01/22 04:00 04/01/22 07:00 04/01/22 07:00 04/01/22 07:00 04/01/22 06:00 04/01/22 07:00 04/01/22 07:00 FiO2 2 03/31/22 23:00 Oxygen Flow Rate (L/min) 2 Oxygen Delivery Method Nasal Cannula Weight: 43.3 kg Body Mass Index (BMI) 17.3 Intake & Output: Intake and Output for Last 24 Hours 03/30/22 03/31/22 04/01/22 23:59 23:59 23:59 Intake Total 1269.5 / 1269.5 Output Total 300 / 300 100 / 100 Balance 969.5 / 969.5 -100 / -100 Medical Nutrition Assessment Dietitian: Malnutrition Criteria Met Start: 03/31/22 13:08 Freq: Status: Active Protocol: Document 03/31/22 14:01 RMA (Rec: 03/31/22 14:02 RMA [id number]) Nutrition Malnutrition Evidence of Malnutrition Exists Yes Malnutrition (severe): Chronic Evidenced By Suboptimal Energy Intake ( Severe),Weight Loss (Severe) Intake Problem Inadequate Oral Intake Etiology related to altered GI function Signs/Symptoms as evidenced by NPO Status Active Problem Clinical Problem Chronic Disease or Condition Related Malnutrition Etiology Severe protein-calorie malnutrition in the context of chronic disease related to altered GI function and inadequate oral intake Signs/Symptoms as evidenced by weight loss~11 % in less than 2 months, BMI 17.3, muscle/fat wasting in the face, clavicle, arms and legs, currently NPO and PO meeting less than 50% estimated nutrition needs x past 1 month Status Active Problem Recommendation Dietitian Recommendations/Changes Recommend advance PO diet as medically able to Transitional with goal of regular diet; carb-controlled as needed. Ensure clear as diet advanced from NPO. Glucerna shake as able for weight gain and nutrient repletion. Consider parenteral nutrition support if unable to advance diet in next 24-48 hours especially given signs/ symptoms of severe malnutrition. Lab / Micro Data Result Diagrams: 04/01/22 06:00 04/01/22 06:00 Labs: Laboratory Results - last 24 hr 03/30/22 09:14: Blood Type A POSITIVE, Antibody Screen NEGATIVE, Crossmatch See Detail 03/30/22 09:14: Crossmatch See Detail 03/31/22 09:18: WBC 2.4 L, RBC 1.59 L, Hgb 4.8 L*, Hct 15.5 L, MCV 97.5, MCH 30.2, MCHC 31.0 L, RDW Std Deviation 56.4 H, RDW Coeff of Uriel 16.9 H, Plt Count 86 L, MPV 11.1, Immature Gran % (Auto) 0.800, Neut % (Auto) 80.0 H, Lymph % (Auto) 12.9 L, [place] % (Auto) 6.3, Eos % (Auto) 0.0, Baso % (Auto) 0.0, Absolute Neuts (auto) 1.9 L, Absolute Lymphs (auto) 0.31 L, Nucleated RBC % 0, Differential Comment COMMENT, Diff Path Review December, Platelet Estimate MOD 03/31/22 09:18: PT 45.4 H, INR 4.9 H* 03/31/22 09:18: Sodium 144, Potassium 4.5, Chloride 111 H, Carbon Dioxide 27.0, Anion Gap 6, BUN 46 H, Creatinine 1.51 H, Estim Creat Clear Calc 20.98, Est GFR (MDRD) Af Amer 43 L, Est GFR (MDRD) Non-Af 35 L, BUN/Creatinine Ratio 30.5 H, Glucose 168 H, Calcium 8.1 L, Total Bilirubin 0.30, AST 7 L, ALT 7 L, Alkaline Phosphatase 76, Total Protein 5.7 L, Albumin 2.4 L, Globulin 3.3, Albumin/Globulin Ratio 0.7 L 03/31/22 09:18: Immature Plt Fraction 4.9, Retic Count 3.97 H, Immature Retic Fraction 18.30 H, Retic Hgb Equivalent 28.1 L 03/31/22 09:18: Iron 54, TIBC 238 L, Iron Saturation 22.7, Ferritin 86, Lactate Dehydrogenase 138 03/31/22 15:20: Hgb 8.5 L, Hct 26.5 L 03/31/22 17:05: PT 30.3 H, INR 2.9 03/31/22 21:40: Hgb 8.3 L, Hct 26.1 L 04/01/22 06:00: WBC 3.1 L, RBC 2.68 L, Hgb 7.8 L, Hct 25.0 L, MCV 93.3, MCH 29.1, MCHC 31.2 L, RDW Std Deviation 51.8 H, RDW Coeff of Uriel 15.9 H, Plt Count 92 L, MPV 11.2, Immature Gran % (Auto) 0.300, Neut % (Auto) 77.5 H, Lymph % (Auto) 14.7 L, [place] % (Auto) 7.2, Eos % (Auto) 0.0, Baso % (Auto) 0.3, Absolute Neuts (auto) 2.4, Absolute Lymphs (auto) 0.45 L, Nucleated RBC % 0, Differential Comment SCANNED, Diff Path Review December, Platelet Estimate SLT 04/01/22 06:00: Sodium 143, Potassium 3.9, Chloride 112 H, Carbon Dioxide 25.0, Anion Gap 6, BUN 47 H, Creatinine 1.36 H, Estim Creat Clear Calc 22.72, Est GFR (MDRD) Af Amer 48 L, Est GFR (MDRD) Non-Af 40 L, BUN/Creatinine Ratio 34.6 H, Glucose 134 H, Calcium 8.1 L, Total Bilirubin 0.50, AST 12 L, ALT 13, Alkaline Phosphatase 75, Total Protein 5.9 L, Albumin 2.5 L, Globulin 3.4, Albumin/Globulin Ratio 0.7 L 04/01/22 06:00: PT 35.5 H, INR 3.6 Micro: Microbiology 03/31/22 18:10 Stool Stool Occult Blood (TAMEKA) - Final Occult Blood Positive Physical Exam Narrative Physical exam: General: Alert, Oriented x3, Cooperative, very pale, appears very frail and cachectic on 2 L of oxygen, HEENT: Atraumatic Oral: Moist Mucosa Neck: Supple Lungs: Diminished to auscultation Cardiovascular: HS I+II, regular, no murmurs Abdomen: Bowel Sounds Present, Soft, Non Tender Extremities: No edema Skin: No rashes, No breakdown Neurological: Grossly intact Psych/Mental Status: Appropriate Assessment & Plan Assessment/Plan (1) Anemia requiring transfusions: (2) Supratherapeutic INR: (3) Acute GI bleeding: PLAN: Plan 1. Acute on chronic severe anemia secondary to Acute GI bleed in a patient with history of recurrent GI bleed Patient was supratherapeutic on admission; home Coumadin on hold Admission hemoglobin was 4.8. Hemoglobin 7.8. LDH is 138. Being transfused 1 unit of packed RBC Continue to monitor H&H every 6h. Branch Service Associate and GI following 2. Acute on chronic GI bleed, history of duodenal ectasia and diverticulosis Going for endoscopy today Continue IV PPI drip, will add IV ceftriaxone and octreotide drip per GI recommendations 3. Pancytopenia in the setting of chronic liver disease/PAN cirrhosis -chronic leukopenia and thrombocytopenia Patient's current WBC count and platelets remain about the same 4. Supratherapeutic INR, status post mechanical valve replacement, on chronic Coumadin Status post 1 unit of FFP, INR is 3.6 5. Acute hypotension secondary to #1, responsive to blood transfusions, POA Blood pressures remain relatively stable Continue to monitor 6. CKD stage III, unclear stage, no recent creatinine/GFR this year to compare Creatinine is about the same at 1.3 today 7. Hypothyroidism, continue on synthroid 8. Anxiety and depression. Continue Venlafaxine 9. DVT PPx- SCDs Charges/Coding Visit Charges Inpatient E&M: 03889 [facility] Hosp L3
--- NOTE | 2022-04-01 08:47 | NURSING ---
report given to quiana RN
--- NOTE | 2022-04-01 08:56 | NURSING ---
transferred off floor at this time to [facility] by Power, traffic personnel supervisor.
--- NOTE | 2022-04-01 09:57 | OP.EGD_ITS ---
Patient Name: Farheen Miranda Procedure Date: 04/01/2022 9:31 AM Date of : 1940 Age: 81 Procedure: Upper GI endoscopy Indications: Iron deficiency anemia, Melena Providers: Jimmie Brownlee DO Medicines: Monitored Anesthesia Care Patient Profile: This is a 81 year old female. Refer to note in patient chart for documentation of history and physical. Patient has symptoms. She is status post EGD for treatment of bleeding. Complications: No immediate complications. Procedure: Pre-Anesthesia Assessment: - Prior to the procedure, a History and Physical was performed, and patient medications and allergies were reviewed. The risks and benefits of the procedure and the sedation options and risks were discussed with the patient. All questions were answered and informed consent was obtained. Patient identification and proposed procedure were verified by the physician in the pre-procedure area. Mental Status Examination: alert and oriented. Airway Examination: normal oropharyngeal airway and neck mobility. Respiratory Examination: clear to auscultation. CV Examination: normal. Prophylactic Antibiotics: The patient does not require prophylactic antibiotics. Prior Anticoagulants: The patient has taken no previous anticoagulant or antiplatelet agents. After reviewing the risks and benefits, the patient was deemed in satisfactory condition to undergo the procedure. The anesthesia plan was to use moderate sedation / analgesia (conscious sedation). Immediately prior to administration of medications, the patient was re-assessed for adequacy to receive sedatives. The heart rate, respiratory rate, oxygen saturations, blood pressure, adequacy of pulmonary ventilation, and response to care were monitored throughout the procedure. The physical status of the patient was re-assessed after the procedure. After obtaining informed consent, the endoscope was passed under direct vision. Throughout the procedure, the patient's blood pressure, pulse, and oxygen saturations were monitored continuously. The Endoscope was introduced through the mouth, and advanced to the second part of duodenum. The upper GI endoscopy was accomplished without difficulty. The patient tolerated the procedure well. Scope In: 9:40:10 AM Scope Out: 9:51:07 AM Total Procedure Duration Time 0 hours 10 minutes 57 seconds Findings: The examined esophagus was normal. A small hiatal hernia was present. 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 Coagulation for hemostasis using heater probe was successful. Estimated blood loss was minimal. A single 5 mm sessile polyp with bleeding was found in the first portion of the duodenum. The polyp was removed with a hot snare. Resection and retrieval were complete. Verification of patient identification for the specimen was done. Estimated blood loss was minimal. Impression: - Normal esophagus. - Small hiatal hernia. - Two bleeding angiodysplastic lesions in the duodenum. Treated with a heater probe. - A single duodenal polyp. Resected and retrieved. Recommendation: - [facility]. - Resume previous diet. - Continue present medications. - Await pathology results. - Repeat upper endoscopy in 1 year for surveillance. - Return to GI office in 2 weeks. Procedure Code(s): --- Professional --- 25726, 59, Esophagogastroduodenoscopy, flexible, transoral; with control of bleeding, any method 67027, 51, Esophagogastroduodenoscopy, flexible, transoral; with removal of tumor(s), polyp(s), or other lesion(s) by snare technique CPT copyright 2017 [employer]. All rights reserved. The codes documented in this report are preliminary and upon install technician review may be revised to meet current compliance requirements. Jimmie Brownlee DO 04/01/2022 9:57:19 AM This report has been signed electronically. Number of Addenda: 1 Note Initiated On: 04/01/2022 9:31 AM Addendum Number: 1 Addendum Date: 05/18/2022 6:11:29 AM MAC was used as sedation for this procedure. Jimmie Brownlee DO 05/18/2022 6:11:35 AM This report has been signed electronically.
--- NOTE | 2022-04-01 09:58 | OP.CCLET_ITS ---
05/18/2022 [address] [place] [address] Re : Upper GI endoscopy procedure for Farheen Miranda Dear Dr. Muñoz This procedure was performed on Friday, April 01, 2022. My impressions and recommendations are as follows: Impressions : - Normal esophagus. - Small hiatal hernia. - Two bleeding angiodysplastic lesions in the duodenum. Treated with a heater probe. - A single duodenal polyp. Resected and retrieved. Recommendations : - [facility]. - Resume previous diet. - Continue present medications. - Await pathology results. - Repeat upper endoscopy in 1 year for surveillance. - Return to GI office in 2 weeks. My findings are described in the full procedure note, which is enclosed. If I can be of further assistance, please feel free to contact me at . Sincerely, Jimmie Friend, 04/01/2022 9:57:19 AM This report has been signed electronically.
[2022-04-01] MEDS: Ceftriaxone 1 GM/50 ML BAG IV (10:27)
[2022-04-01 11:01] LABS: Hematocrit 32.1 % (37-47); Hemoglobin 10.2 g/dL (12.0-15.0); POSITIVE COUNT YES
--- NOTE | 2022-04-01 17:19 | CM.ED ---
Addendum entered by Manda Mckee 04/01/22 17:27: Of note, in the ED, prior to her admission to ICU, patient denied any SI or HI. Original Note: STACI Note SW met with patient in ICU. Patient said that her in his sleep last year after being for 63 years. Patient said that her daughter last year from covid. Patient talked about her and daughter, Deena. Patient said that she still looks for them and stated that she hasn't cried. SW discussed patient reporting to RN thoughts of suicide in the past upon admission to the ICU yesterday. Patient said that she does not have thoughts of self harm but more about frustration related to her losses and her medical issues. Patient was able to contract for safety and stated that if she had thoughts of SI while in the ICU or hospital she would let staff know. Patient talked about her family taking care of her. Patient talked about wanting to go home. Patient talked about the recent loss of her friend, who was sick, and patient being upset as her friends children are not having a service for her friend. Patient voiced at times the losses and her medical condition make her tired. SW asked about counseling and patient said Honey... I will be ok and voiced that she has family support. Patient was able to laugh and smile when she was talking about her younger days and how I had fun. Patient was offered information about [facility] counseling but patient declined information. SW spent time listening to patient and providing emotional support. Patient is future oriented. Patient reports no current SI to this proposal writer. Emotional support provided. Manda DHALIWAL
--- NOTE | 2022-04-01 18:08 | CM.ED ---
SW went back and spoke to patient. SW provided her with Advanced Directives booklet. SW offered to assist with the completion of the advanced directives but patient declined and said that she would do it later. Manda DHALIWAL
--- NOTE | 2022-04-01 18:09 | EKG12_ITS ---
Test Reason : AFIB Blood Pressure : / mmHG Vent. Rate : 175 BPM Atrial Rate : 150 BPM P-R Int : 000 ms QRS Dur : 078 ms QT Int : 274 ms P-R-T Axes : 227 -68 166 degrees QTc Int : 467 ms Undetermined rhythm : Consider Atrial Fibrillation Left axis deviation Low voltage QRS (Limb Leads) Poor R wave progression Nonspecific ST and T wave abnormality Abnormal ECG Confirmed by JOHN GUILLEN, CAPO ([id number]), school photograph editor HIRAM GREENE ([id number]) on 04/04/2022 1:16:28 PM Referred By: BIJAN Confirmed By:CAPO LOPEZ MD
--- NOTE | 2022-04-01 18:15 | EKG12_ITS ---
Test Reason : Blood Pressure : / mmHG Vent. Rate : 098 BPM Atrial Rate : 107 BPM P-R Int : 000 ms QRS Dur : 076 ms QT Int : 274 ms P-R-T Axes : 000 -61 154 degrees QTc Int : 349 ms Atrial fibrillation Left anterior fascicular block Low voltage QRS (Limb Leads) Nonspecific ST and T wave abnormality Poor R wave progression Abnormal ECG Confirmed by JOHN GUILLEN, CAPO ([id number]), video editor HIRAM GREENE ([id number]) on 04/04/2022 1:14:55 PM Referred By: ABDULKADIR Confirmed By:CAPO LOPEZ MD
[2022-04-01] MEDS: Adenosine 6 MG/2 ML Syringe IV (18:24)
--- NOTE | 2022-04-01 18:53 | NURSING ---
180 monitor alarming vtach then into SVT, pt complaining of palpitations and shortness of breath, had patient cough and bear down, performed carotid massage however heart rate maintained in the 180s, O2 increased to 4L NC for sats mid 80's, EKG obtained [address] Dr. Pereira made aware and coming to floor 182 placed on [id number] monitor, Dr. Pereira at bedside, adenosine 6mg IV x1 given in #20 RAC; heart rate down to 80s atrial fibrillation 182 NS 250 cc bolus started continuous heart monitoring and this RN maintained at bedside.
[2022-04-01 19:17] LABS: ALB/GLOB Ratio 0.7 RATIO (0.9-2.4); AST(SGOT) 13 U/L (15-37); Alanine Aminotransfer ALT/SGPT 9 U/L (13-56); Albumin, Serum 2.6 g/dL (3.2-5.0); Alkaline Phosphatase 81 U/L (45-117); Anion Gap 7 (5-15); BUN 42 mg/dL (7-18); Calcium,Total 8.2 mg/dL (8.5-10.1); Chloride 112 mmol/L (98-107); EST Glomerular Filtration Rate 39 mL/min (>60); Est Glom Filt Rate - Afr Amer 47 mL/min (>60); Estimated Creatinine Clearance 22.27 ml/min; Globulin 3.5 g/dL (2.2-4.2); Glucose 147 mg/dL (74-106); Magnesium 2.1 mg/dL (1.6-2.6); Phosphorus 2.8 mg/dL (2.5-4.9); Protein, Total 6.1 g/dL (6.4-8.2); Sodium Level 142 mmol/L (136-145)
[2022-04-01 19:18] LABS: Hematocrit 31.2 % (37-47); Hemoglobin 10.3 g/dL (12.0-15.0); POSITIVE COUNT YES
--- NOTE | 2022-04-01 19:21 | NURSING ---
1910 Heart rate up to 190, patient able to cough and bring heart rate down to 90s, remains afib, patient stated shortness of breath improved, palpitations remain, will cont to monitor.
--- NOTE | 2022-04-01 20:40 | PCM.PN.BLA ---
Progress Note Patient's with A. fib RVR with rates in the 140s. Reportedly elevated patient had SVT and received adenosine. Blood pressure at this time soft 102/44 MAP of 62. Patient is allergic to amiodarone and digoxin. Discussed with cardiology. Will bolus of IV fluids and start a Cardizem drip. If patient becomes hypotensive will start on Levophed. Nurse report that patient lungs are diminished and she is not in respiratory failure. Patient's was on home warfarin. INR today, 04/01/22 3.6. Patient is not a candidate of heparin secondary to angiodysplastic lesion with cauterization. On Protonix drip
[2022-04-01] MEDS: 0.9% Saline Lock 10 ML Syringe IV ×2 (20:47→20:52)
[2022-04-01] MEDS: 0.9% Normal Saline 1,000 ML 999 ML IV (20:48)
[2022-04-02] VITALS (73 sets, daily range): BP systolic 58–124; BP diastolic 23–95; PULSE 91–147; RESP 15–31; TEMP 36.6–37.7; O2SAT 20–100
--- NOTE | 2022-04-02 02:30 | EKG12_ITS ---
Test Reason : Blood Pressure : / mmHG Vent. Rate : 095 BPM Atrial Rate : 098 BPM P-R Int : 170 ms QRS Dur : 082 ms QT Int : 336 ms P-R-T Axes : 080 -61 124 degrees QTc Int : 422 ms Atrial fibrillation with occasional PVC's Left axis deviation Low voltage QRS (Limb Leads) Nonspecific ST and T wave abnormality Poor R wave progression Abnormal ECG Confirmed by JOHN GUILLEN, CAPO ([id number]), metropolitan editor HIRAM GREENE ([id number]) on 04/04/2022 1:14:18 PM Referred By: ABDULKADIR Confirmed By:CAPO LOPEZ MD
--- NOTE | 2022-04-02 02:40 | RAD_ITS ---
STUDY: X-RAY CHEST REASON FOR EXAM: Female, 81 years old. Shortness of breath. TECHNIQUE: Single AP portable view of the chest. COMPARISON: August 12, 2020. August 20, 2018. FINDINGS: Blunting of the right costophrenic angle compatible with a small pleural effusion unchanged. Patchy bibasilar density right greater than left unchanged probably representing subsegmental atelectasis and/or fibrosis. No pneumothorax. Normal size heart. Normal mediastinum and joshua. Normal visualized pulmonary arteries. Normal visualized aortic arch and descending thoracic aorta. Osseous structures unchanged. Sternal wires. Cardiac prosthetic valve. Cardiac pacemaker overlies left hemithorax. There is no demonstrated abnormality of the visualized soft tissue structures of the upper abdomen. RAD/Chest 1 View (Portable) IMPRESSION: Stable chest. Small right pleural effusion. Probable chronic changes at both lung bases. If there is a high clinical suspicion of right lower lobe pneumonia consider CT. Electronically Signed: Irvin Pretty MD at 3:00 EDT Reading Location ID and State: [id number] / , Service support ,
[2022-04-02 03:24] LABS: Absolute Lymphocyte Count 0.52 X10^3/uL (0.83-4.51); Absolute Neutrophil Count 4.8 X10^3/uL (2.0-7.7); Basophil# 0.01 X10^3/uL; Basophil% 0.2 % (0-1); Hematocrit 31.1 % (37-47); Hemoglobin 9.8 g/dL (12.0-15.0); Lymphocyte # 0.52 X10^3/ul (0.83-4.51); Lymphocyte % 9.2 % (19-41); Mean Corp Hgb Conc 31.5 g/dL (32-36); Mean Platelet Vol. 11.4 fl (6.2-12.0); Monocyte# 0.34 X10^3/uL; NRBC Flagged by Analyzer 0 % (0-5); Neutrophil # 4.78 X10^3/uL (2.7-7.7); Neutrophil % 84.1 % (47-70); POSITIVE COUNT YES; POSITIVE DIFFERENTIAL YES; Platelet Count 91 K/mm3 (150-450); RBC Distribution Width CV 16.8 % (11.6-14.6); Red Blood Count 3.38 M/mm3 (4.2-5.4); White Blood Count 5.7 K/mm3 (4.4-11.0)
[2022-04-02] MEDS: Haloperidol 1 MG Tablet PO (03:25)
[2022-04-02 03:32] LABS: International Normalized Ratio 4.6
[2022-04-02 03:35] LABS: Differential Indicated SCAN CRITERIA MET
[2022-04-02 03:41] LABS: Anisocytosis 1+
[2022-04-02 03:43] LABS: ALB/GLOB Ratio 0.7 RATIO (0.9-2.4); AST(SGOT) 9 U/L (15-37); Alanine Aminotransfer ALT/SGPT 11 U/L (13-56); Albumin, Serum 2.4 g/dL (3.2-5.0); Alkaline Phosphatase 79 U/L (45-117); Anion Gap 7 (5-15); BUN 33 mg/dL (7-18); BUN/Creat Ratio 27.7 RATIO (10-20); Calcium,Total 7.6 mg/dL (8.5-10.1); Chloride 112 mmol/L (98-107); Creatinine, Serum 1.19 mg/dL (0.55-1.02); EST Glomerular Filtration Rate 47 mL/min (>60); Est Glom Filt Rate - Afr Amer 56 mL/min (>60); Globulin 3.4 g/dL (2.2-4.2); Glucose 171 mg/dL (74-106); Potassium 3.5 mmol/L (3.5-5.1); Protein, Total 5.8 g/dL (6.4-8.2); Sodium Level 143 mmol/L (136-145)
[2022-04-02 03:44] LABS: Fibrinogen 287 mg/dl (203-444)
[2022-04-02 04:14] LABS: D-Dimer Quantitative (DVT/PE) 3.35 FEU/ug/m (0.27-0.49)
[2022-04-02 04:21] LABS: Phosphorus 2.4 mg/dL (2.5-4.9)
[2022-04-02] MEDS: Ipratropium 0.5 MG/2.5 ML SOLUTION INHALATION ×5 (04:21→23:55)
[2022-04-02] MEDS: Haloperidol 1 MG Tablet 2 MG PO (04:37)
--- NOTE | 2022-04-02 05:33 | CT_ITS ---
STUDY: CTA CHEST REASON FOR EXAM: Female, 81 years old. Elevated D-dimer, shortness of breath RADIATION DOSAGE (If Supplied By Facility): CTDIvol = ( 8.13 ) mGy, DLP = ( 187.69 ) mGycm TECHNIQUE: The examination was performed with the intravenous administration of IV 75mL Isovue-370. Post-processing of the angiographic images was performed, with multiplanar reformation and 3D reconstruction. Individualized dose optimization techniques were used for this CT. COMPARISON: 08/20/2018 chest x-ray FINDINGS: Normal enhancement of the main pulmonary artery and right and left pulmonary arteries. Normal enhancement of the bilateral peripheral pulmonary arteries. There is no demonstrated pulmonary embolism. Normal thoracic aorta and visualized great vessels. There is no demonstrated aortic dissection. Biatrial enlargement. Coronary artery calcifications. Mild mediastinal lymphadenopathy. Normal hilar regions. Normal visualized trachea and bronchi. Multifocal consolidations in both lungs. Right hydropneumothorax appears encapsulated. Small left pleural effusion with overlying atelectasis. Posterior hemidiaphragm calcified pleural plaque. Normal chest wall structures. Small T7 wedge deformity. Ascites surrounding the partially visualized upper abdomen. CT/CTA Chest W/WO Contrast IMPRESSION: 1. Multifocal pneumonia with probable posterior right lower empyema. Small left pleural effusion. Mild mediastinal lymphadenopathy is probably reactive. 2. No demonstrated pulmonary embolism or arterial dissection. 3. Partially visualized ascites. Electronically Signed: Lars Knox MD at 7:05 EDT ,
[2022-04-02] MEDS: fentaNYL 100 MCG/2 ML Ampul 25 MCG IV ×3 (06:12→22:56)
[2022-04-02] MEDS: 0.9% Saline Lock 10 ML Syringe IV ×8 (06:13→22:56)
--- NOTE | 2022-04-02 06:30 | PN.CC_ITS ---
Assessment & Plan Assessment/Plan (1) Chronic gastrointestinal bleeding: (2) Supratherapeutic INR: (3) History of mitral valve replacement with mechanical valve: (4) Secondary pulmonary hypertension: (5) Pancytopenia: PLAN: Plan RECOMMENDATIONS: 1. Transfused 2 units of FFP 2. Keep hemoglobin greater than 8 as long as patient is having stigmata of ongoing bleeding 3. Place PICC line. Wean pressors as tolerated 4. Wean oxygen as tolerated 5. Continue antibiotics 6. Appreciate GI recommendations IMPRESSIONS: 1.??Acute on chronic blood loss anemia The patient does have a history of prior admissions for acute on chronic blood loss anemia, the source of which has never been identified.? The patient will receive transfusion of blood products in hopes of achieving a hemoglobin greater than 8 g/dL given signs of ongoing bleeding.? Patient was able to have 2 angiodysplastic lesions treated.? Patient still on PPI drip. Defer to GI on transition to twice daily dosing. INR has been elevated 2.??Hemorrhagic shock The patient presented to the ICU in a hypotensive state.? There is concern that she may require vasopressors.? However, the patient refused to allow for a PICC line or central venous catheter to be placed.? Patient now on Levophed, but hemoglobin appears to be stable. Findings on CT of the chest suggestive of possible pneumonia. 3.??Coagulopathy The patient is chronically anticoagulated with Coumadin due to a history of atrial fibrillation and mechanical valve.? Her INR is supratherapeutic at presentation.? INR elevated.? Continue to hold Coumadin. Would not normalize given patient's history of a mechanical heart valve 4.??Acute on chronic hypoxemic respiratory failure The patient does have a baseline oxygen requirement of 2 L/min, which will be continued. Patient has received significant volume over the last 2 days. Development of A. fib with RVR complicates overall condition. Patient may have an element of CHF versus pneumonia. Patient does not have a significant leukocytosis or fever to suggest pneumonia, but peripheral infiltrates could be suggestive of embolic phenomenon. We will hold on Lasix given patient's current hypotension. 5.??A. fib with RVR/history of mitral valve replacement/hypothyroidism Complicates care, management, recovery and prognosis.? Continue home medications as indicated. TIME: 35 minutes critical care time spent addressing patient's shock, acute blood loss anemia, A. fib with RVR, respiratory failure, review of all data and collaboration with care team Subjective Subjective Overnight issues noted. Patient with some hypoxia yesterday and started on ceftriaxone. Patient also had A. fib with RVR requiring initiation of Cardizem. Patient eventually required initiation of Levophed. Blood pressures remained marginal. Patient is reporting more dyspnea now compared to previous. This has led to a chest x-ray and CT scan overnight. Objective Data Objective Data CTA of the chest was personally reviewed. This does show infiltrates in the right lower lobe and some peripheral infiltrates in the left upper lobe. Vital Signs: Vital Signs Temp Pulse Resp BP Pulse Ox O2 Del Method O2 Flow Rate 36.6 C 107 H 28 H 94/45 L 97 Airvo 45 04/02/22 04:00 04/02/22 06:00 04/02/22 06:00 04/02/22 06:00 04/02/22 06:00 04/02/22 06:00 04/02/22 06:00 FiO2 36 04/02/22 06:00 Oxygen Flow Rate (L/min) 45 Oxygen Delivery Method Airvo Weight: 44.6 kg Body Mass Index (BMI) 17.3 Intake & Output: Intake and Output for Last 24 Hours 03/31/22 04/01/22 04/02/22 23:59 23:59 23:59 Intake Total 1269.5 / 1269.5 1774.66 / 1779.66 79.61 / 79.61 Output Total 300 / 300 600 / 600 Balance 969.5 / 969.5 1174.66 / 1179.66 79.61 / 79.61 Medical Nutrition Assessment Dietitian: Malnutrition Criteria Met Start: 03/31/22 13:08 Freq: Status: Active Protocol: Document 04/01/22 10:44 JOSEPHINE (Rec: 04/01/22 10:44 JOSEPHINE [id number]) Nutrition Malnutrition Evidence of Malnutrition Exists Yes Malnutrition (severe): Chronic Evidenced By Suboptimal Energy Intake ( Severe),Weight Loss (Severe) Intake Problem Inadequate Oral Intake Etiology related to altered GI function Signs/Symptoms as evidenced by NPO Status Active Problem Clinical Problem Chronic Disease or Condition Related Malnutrition Etiology Severe protein-calorie malnutrition in the context of chronic disease related to altered GI function and inadequate oral intake Signs/Symptoms as evidenced by weight loss~11 % in less than 2 months, BMI 17.3, muscle/fat wasting in the face, clavicle, arms and legs, currently NPO and PO meeting less than 50% estimated nutrition needs x past 1 month Status Active Problem Recommendation Dietitian Recommendations/Changes Recommend advance PO diet as medically able to Transitional with goal of regular diet; carb-controlled as needed. Ensure clear as diet advanced from NPO. Glucerna shake as able for weight gain and nutrient repletion. Consider parenteral nutrition support if unable to advance diet in next 24-48 hours especially given signs/ symptoms of severe malnutrition. Lab / Micro Data Attestation: I reviewed the patient's lab results. Result Diagrams: 04/02/22 03:10 04/02/22 03:10 Labs: Laboratory Results - last 24 hr 03/30/22 09:14: Crossmatch See Detail 04/01/22 06:00: Differential Comment SCANNED, Diff Path Review December foll, Platelet Estimate SLT 04/01/22 06:00: Sodium 143, Potassium 3.9, Chloride 112 H, Carbon Dioxide 25.0, Anion Gap 6, BUN 47 H, Creatinine 1.36 H, Estim Creat Clear Calc 22.72, Est GFR (MDRD) Af Amer 48 L, Est GFR (MDRD) Non-Af 40 L, BUN/Creatinine Ratio 34.6 H, Glucose 134 H, Calcium 8.1 L, Total Bilirubin 0.50, AST 12 L, ALT 13, Alkaline Phosphatase 75, Total Protein 5.9 L, Albumin 2.5 L, Globulin 3.4, Albumin/Globulin Ratio 0.7 L 04/01/22 10:50: Hgb 10.2 L, Hct 32.1 L 04/01/22 18:50: Hgb 10.3 L, Hct 31.2 L 04/01/22 18:50: Sodium 142, Potassium 4.0, Chloride 112 H, Carbon Dioxide 23.0, Anion Gap 7, BUN 42 H, Creatinine 1.40 H, Estim Creat Clear Calc 22.27, Est GFR (MDRD) Af Amer 47 L, Est GFR (MDRD) Non-Af 39 L, BUN/Creatinine Ratio 30.0 H, Glucose 147 H, Calcium 8.2 L, Phosphorus 2.8, Magnesium 2.1, Total Bilirubin 0.70, AST 13 L, ALT 9 L, Alkaline Phosphatase 81, Total Protein 6.1 L, Albumin 2.6 L, Globulin 3.5, Albumin/Globulin Ratio 0.7 L 04/02/22 03:10: PT 43.0 H, INR 4.6 H* 04/02/22 03:10: WBC 5.7, RBC 3.38 L, Hgb 9.8 L, Hct 31.1 L, MCV 92.0, MCH 29.0, MCHC 31.5 L, RDW Std Deviation 55.0 H, RDW Coeff of Uriel 16.8 H, Plt Count 91 L, MPV 11.4, Immature Gran % (Auto) 0.500, Neut % (Auto) 84.1 H, Lymph % (Auto) 9.2 L, [place] % (Auto) 6.0, Eos % (Auto) 0.0, Baso % (Auto) 0.2, Absolute Neuts (auto) 4.8, Absolute Lymphs (auto) 0.52 L, Nucleated RBC % 0, Anisocytosis 1+ 04/02/22 03:10: Sodium 143, Potassium 3.5, Chloride 112 H, Carbon Dioxide 24.0, Anion Gap 7, BUN 33 H, Creatinine 1.19 H, Estim Creat Clear Calc 26.20, Est GFR (MDRD) Af Amer 56 L, Est GFR (MDRD) Non-Af 47 L, BUN/Creatinine Ratio 27.7 H, Glucose 171 H, Calcium 7.6 L, Total Bilirubin 0.60, AST 9 L, ALT 11 L, Alkaline Phosphatase 79, Total Protein 5.8 L, Albumin 2.4 L, Globulin 3.4, Albumin/Globulin Ratio 0.7 L 04/02/22 03:10: Magnesium 2.0 04/02/22 03:10: Phosphorus 2.4 L 04/02/22 03:25: Fibrinogen 287, D-Dimer Quant (PE/DVT) 3.35 H* Micro: Microbiology 03/31/22 18:10 Stool Stool Occult Blood (TAMEKA) - Final Occult Blood Positive Radiography Diagnostic Testing: Radiology Impression Chest X-Ray 04/02/22 02:40 IMPRESSION: Stable chest. Small right pleural effusion. Probable chronic changes at both lung bases. If there is a high clinical suspicion of right lower lobe pneumonia consider CT. Electronically Signed: Irvin Pretty MD at 3:00 EDT Reading Location ID and State: [id number] / , Service support , Rhythm Strip Rhythm Strip: A-fib Rate: 120 Physical Exam Narrative Patient remains on Protonix drip. Const alert and oriented x3 General Appearance: in distress Positive for moderate and respiratory and frail HEENT normocephalic, head/scalp atraumatic and hearing grossly normal bilaterally HEENT Narrative: Slight temporal wasting noted Eyes PERRL, EOMs intact bilaterally, conjunctivae normal and no scleral icterus Neck no lymphadenopathy, supple and no JVD Resp no retractions Effort and Inspection: actively coughing non-productive and prolonged expiratory phase Auscultation: rhonchi right lower; Negative for rales Cardio regular rate, regular rhythm, S1 normal heart sound, S2 normal heart sound and no JVD Heart Sounds: murmur systolic II/ low-pitched early base GI soft to palpation, non-tender and non-distended GI Narrative: Slightly distended abdomen without fluid wave Extremity normal to inspection, full ROM and no clubbing, cyanosis or edema Skin no rashes or lesions noted, no wounds and skin turgor normal Skin Narrative: Minor superficial bruising noted Neuro oriented x3, CN's II-XII intact bilaterally, moves all extremities and no focal motor deficits Psych affect normal Charges/Coding Procedures Hospitalists Procedures: 62470 Critial Care 1st Hr
[2022-04-02 07:22] LABS: Partial Thromboplast Time 57.1 Seconds (24.1-36.2)
[2022-04-02 07:30] LABS: Allen Test Positive; Base Excess -3 mmol/L (-2 to +2); Bicarbonate 20.9 mmol/L (22-26); Blood Gas Specimen Type ART; PO2 84 mmHG (75-100); SITE R Radial; SO2 97 % (95-99); Total Carbon Dioxide 22 mmol/L; pCO2 30.5 mmHg (35-45); pH 7.44 (7.35-7.45)
--- NOTE | 2022-04-02 09:36 | PN.HOSP_ITS ---
Subjective Subjective Follow-up on GI bleed/severe anemia/supratherapeutic INR/Hypotension: Patient was seen and examined. Patient had a large emesis late in the afternoon yesterday. She subsequently had a bowel movement and had dark stools. She went into SVT that was aborted with 6 mg of IV adenosine. During the night, she became more hypotensive. Refused central line. Finally agreed to a PICC line. She also became hypoxic. She also became tachycardic, went into atrial fibrillation, started on Cardizem drip. She could not be given digoxin or amiodarone because of allergies. D-dimer was elevated. Chest x-ray showed small right pleural effusion, probable chronic changes of both lung bases, high suspicion for right lower lobe pneumonia. She was started on IV ceftriaxone and that was switched to IV Zosyn. Objective Data Objective Data Vital Signs: Vital Signs Temp Pulse Resp BP Pulse Ox O2 Del Method O2 Flow Rate 98.6 F 102 H 25 H 94/48 L 96 Airvo 45 04/02/22 08:27 04/02/22 08:27 04/02/22 08:27 04/02/22 08:27 04/02/22 08:27 04/02/22 08:27 04/02/22 08:27 FiO2 37 04/02/22 08:27 Oxygen Flow Rate (L/min) 45 Oxygen Delivery Method Airvo Weight: 44.6 kg Body Mass Index (BMI) 17.3 Intake & Output: Intake and Output for Last 24 Hours 03/31/22 04/01/22 04/02/22 23:59 23:59 23:59 Intake Total 1269.5 / 1269.5 1774.66 / 1779.66 186.47 / 186.47 Output Total 300 / 300 600 / 600 150 / 150 Balance 969.5 / 969.5 1174.66 / 1179.66 36.47 / 36.47 Medical Nutrition Assessment Dietitian: Malnutrition Criteria Met Start: 03/31/22 13:08 Freq: Status: Active Protocol: Document 04/01/22 10:44 LO (Rec: 04/01/22 10:44 LO [id number]) Nutrition Malnutrition Evidence of Malnutrition Exists Yes Malnutrition (severe): Chronic Evidenced By Suboptimal Energy Intake ( Severe),Weight Loss (Severe) Intake Problem Inadequate Oral Intake Etiology related to altered GI function Signs/Symptoms as evidenced by NPO Status Active Problem Clinical Problem Chronic Disease or Condition Related Malnutrition Etiology Severe protein-calorie malnutrition in the context of chronic disease related to altered GI function and inadequate oral intake Signs/Symptoms as evidenced by weight loss~11 % in less than 2 months, BMI 17.3, muscle/fat wasting in the face, clavicle, arms and legs, currently NPO and PO meeting less than 50% estimated nutrition needs x past 1 month Status Active Problem Recommendation Dietitian Recommendations/Changes Recommend advance PO diet as medically able to Transitional with goal of regular diet; carb-controlled as needed. Ensure clear as diet advanced from NPO. Glucerna shake as able for weight gain and nutrient repletion. Consider parenteral nutrition support if unable to advance diet in next 24-48 hours especially given signs/ symptoms of severe malnutrition. Lab / Micro Data Result Diagrams: 04/02/22 03:10 04/02/22 03:10 Labs: Laboratory Results - last 24 hr 03/30/22 09:14: Crossmatch See Detail 04/01/22 10:50: Hgb 10.2 L, Hct 32.1 L 04/01/22 18:50: Hgb 10.3 L, Hct 31.2 L 04/01/22 18:50: Sodium 142, Potassium 4.0, Chloride 112 H, Carbon Dioxide 23.0, Anion Gap 7, BUN 42 H, Creatinine 1.40 H, Estim Creat Clear Calc 22.27, Est GFR (MDRD) Af Amer 47 L, Est GFR (MDRD) Non-Af 39 L, BUN/Creatinine Ratio 30.0 H, Glucose 147 H, Calcium 8.2 L, Phosphorus 2.8, Magnesium 2.1, Total Bilirubin 0.70, AST 13 L, ALT 9 L, Alkaline Phosphatase 81, Total Protein 6.1 L, Albumin 2.6 L, Globulin 3.5, Albumin/Globulin Ratio 0.7 L 04/02/22 03:10: PT 43.0 H, INR 4.6 H* 04/02/22 03:10: WBC 5.7, RBC 3.38 L, Hgb 9.8 L, Hct 31.1 L, MCV 92.0, MCH 29.0, MCHC 31.5 L, RDW Std Deviation 55.0 H, RDW Coeff of Uriel 16.8 H, Plt Count 91 L, MPV 11.4, Immature Gran % (Auto) 0.500, Neut % (Auto) 84.1 H, Lymph % (Auto) 9.2 L, [place] % (Auto) 6.0, Eos % (Auto) 0.0, Baso % (Auto) 0.2, Absolute Neuts (auto) 4.8, Absolute Lymphs (auto) 0.52 L, Nucleated RBC % 0, Anisocytosis 1+ 04/02/22 03:10: Sodium 143, Potassium 3.5, Chloride 112 H, Carbon Dioxide 24.0, Anion Gap 7, BUN 33 H, Creatinine 1.19 H, Estim Creat Clear Calc 26.20, Est GFR (MDRD) Af Amer 56 L, Est GFR (MDRD) Non-Af 47 L, BUN/Creatinine Ratio 27.7 H, Glucose 171 H, Calcium 7.6 L, Total Bilirubin 0.60, AST 9 L, ALT 11 L, Alkaline Phosphatase 79, Total Protein 5.8 L, Albumin 2.4 L, Globulin 3.4, Albumin/Globulin Ratio 0.7 L 04/02/22 03:10: Magnesium 2.0 04/02/22 03:10: Phosphorus 2.4 L 04/02/22 03:25: Fibrinogen 287, D-Dimer Quant (PE/DVT) 3.35 H* 04/02/22 03:25: APTT 57.1 H Micro: Microbiology 03/31/22 18:10 Stool Stool Occult Blood (TAMEKA) - Final Occult Blood Positive ABG Data ABG results: ABG 04/02/22 04:03 Specimen Type ART Sample Site R Radial pH 7.44 Bicarbonate Actual 20.9 L Total CO2 22 Base Excess -3 L O2 Saturation 97 ABG pCO2 30.5 L ABG pO2 84 Mika Test Positive Liter Flow 8.0 Radiography Diagnostic Testing: Radiology Impression Chest X-Ray 04/02/22 02:40 IMPRESSION: Stable chest. Small right pleural effusion. Probable chronic changes at both lung bases. If there is a high clinical suspicion of right lower lobe pneumonia consider CT. Electronically Signed: Irvin Pretty MD at 3:00 EDT Reading Location ID and State: [id number] / , Service support , Chest CTA 08/21/22 05:33 IMPRESSION: 1. Multifocal pneumonia with probable posterior right lower empyema. Small left pleural effusion. Mild mediastinal lymphadenopathy is probably reactive. 2. No demonstrated pulmonary embolism or arterial dissection. 3. Partially visualized ascites. Electronically Signed: Lars Knox MD at 7:05 EDT Reading Location ID and State: [facility]3 / CT Tel , Service support , Rhythm Strip Rhythm Strip: A-fib Rate: 120 Physical Exam Narrative Physical exam: General: Alert, Oriented x3, Cooperative, very pale, appears very frail and cachectic, on Airvo HEENT: Atraumatic Oral: Moist Mucosa Neck: Supple Lungs: Diminished to auscultation, crackles heard at the lung bases Cardiovascular: HS I+II, regular, tachycardic, no murmurs Abdomen: Bowel Sounds Present, Soft, Non Tender Extremities: No edema Skin: No rashes, No breakdown Neurological: Grossly intact Psych/Mental Status: Appropriate Assessment & Plan Assessment/Plan (1) Anemia requiring transfusions: (2) Supratherapeutic INR: (3) Acute GI bleeding: PLAN: Plan 81-year-old female with past medical history of mechanical mitral valve replacement, history of recurrent GI bleed comes in with severe anemia with hemoglobin 4.8. 1. Acute hypoxic respiratory failure secondary to probable aspiration pneumonia/right lower lobe pneumonia Patient had large emesis yesterday, 04/01/22 Chest x-ray this morning showed right lower lobe pneumonia CTA of the chest today shows multifocal pneumonia with probable posterior right lower empyema WBC count is 5.7. Started on IV ceftriaxone; switch to IV Zosyn Continue on Airvo, Ipratropium Wean off for SPO2 more than 92% 2. Acute hypotension, multifactorial, in the backdrop of probable hemorrhagic shock from GI bleed Patient was hypotensive on admission, blood pressures have remained relatively soft Blood pressure likely worsened with arrhythmia Currently on Levophed via peripheral line Patient initially refused central line; agreeable to PICC line 3. Arrhythmia, A. fib with RVR/recent SVT, heart rate is better controlled Currently on Cardizem drip This is limited by hypotension INR is supratherapeutic Cardiology consulted 2D echo tomorrow 4. Acute on chronic severe anemia secondary to acute GI bleed Patient with history of recurrent GI bleed INR was supratherapeutic on admission; home Coumadin on hold Admission hemoglobin was 4.8. Hemoglobin now is 9.8 Status 3 units of packed RBC (03/31 and 04/01) Continue to monitor H&H every 6h. [place] and GI following 5. Acute on chronic GI bleed, history of duodenal ectasia and diverticulosis, in a patient with underlying cirrhosis EGD on 04/01/22 showed 2 bleeding angiodysplastic lesions that were treated with heater probe Continue IV PPI BID, IV ceftriaxone 6. Pancytopenia in the setting of chronic liver disease/PAN cirrhosis -chronic leukopenia and thrombocytopenia Patient's current WBC count and platelets remain about the same We will continue to monitor 7. Supratherapeutic INR, status post mechanical valve replacement, was on chronic home Coumadin; been off since admission Status post 1 unit of FFP (03/31) INR is 4.6, currently being transfused 2 units of FFPs Repeat INR in am 8. CKD stage IIIa, creatinine is 1.19 from 1.40 Will trend 9. Hypothyroidism, continue on synthroid 10. Anxiety and depression, continue Venlafaxine 11. Severe protein-calorie malnutrition, clinical data management director consulted, continue on supplements 12. DVT PPx- SCDs 13. GI PPx- On PPI BID I discussed and explained in details the various types of CODE STATUS-full code, DNR CCA, DNR CC. Patient son who is her POA was at the bedside. Patient chose DNR CCA, no intubation. She stated that if she suffers a cardiac arrest, she does not want to be resuscitated. Time spent discussing CODE STATUS 18 minutes Charges/Coding Visit Charges Inpatient E&M: 42672 Subs Hosp L3 Procedures Hospitalists Procedures: 11630 Advncd Care Plan 30 Min
--- NOTE | 2022-04-02 09:46 | NURSING ---
Dr. Pereira and PICC RN discussed and decided to postpone PICC insertion until after FFP units are given
--- NOTE | 2022-04-02 09:52 | ECHOD_ITS ---
Reason For Study: Afib, Aflutter Procedure This was a 2D Doppler, Color Flow transthoracic echocardiogram. The study was technically difficult. Exam performed portable in ICU/CCU. Left Ventricle Normal LV size. Left ventricular systolic function is normal. The estimated ejection fraction is 60 %. Unable to assess diastolic dysfunction. No regional wall motion abnormalities noted. Right Ventricle Moderately dilated right ventricle. ICD or pacer leads identified within the right ventricle. Moderate global right ventricular systolic dysfunction. Atria The left atrium is mildly enlarged. The right atrium is mildly enlarged. ICD or pacer leads identified within the right atrium. Mitral Valve The mitral valve chordae are thickened and/or calcified. Stable appearing mechanical mitral valve apparatus. Trivial transvalvular insufficiency of the mitral valve. Tricuspid Valve Normal tricuspid valve. Moderately severe (3+) tricuspid valve insufficiency. Right ventricular systolic pressure estimated to be 107 mmHg. Severe pulmonary hypertension. Aortic Valve Trisinus/trileaflet aortic valve. Moderate focal aortic valve calcification. Pulmonic Valve The pulmonic valve is not well visualized. Mild (1+) pulmonic valve insufficiency. Great Vessels Normal sized aortic root. Pericardium/Pleural No pericardial effusion. MMode/2D Measurements & Calculations LVIDd: 3.7 cm IVSd: 1.3 cm Ao root diam: 2.9 cm LVIDs: 2.5 cm LVPWd: 1.2 cm RVDd: 5.2 cm FS: 31.4 % LAV(MOD-bp): 51.8 ml LVAd ap4: 16.0 cm2 SV(MOD-sp4): 19.0 ml LAV(MOD-bp) Indexed: 36.7 ml/m2 LVLd ap4: 6.8 cm LAV(MOD-sp2): 52.6 ml EDV(MOD-sp4): 32.8 ml LAV(MOD-sp4): 44.1 ml EDV(sp4-el): 32.2 ml LVAs ap4: 9.6 cm2 LVLs ap4: 5.7 cm ESV(MOD-sp4): 13.8 ml ESV(sp4-el): 13.7 ml EF(MOD-sp4): 58.0 % EF(sp4-el): 57.5 % SV(sp4-el): 18.5 ml LA A4 area: 16.6 cm2 LA dimension(2D): 4.0 cm RA A4 area: 16.3 cm2 Time Measurements MV dec time: 0.15 sec Doppler Measurements & Calculations MV E max clinton: 190.8 cm/sec MV V2 max: 263.2 cm/sec MV P1/2t max clinton: 250.4 cm/sec MV max P.7 mmHg MV P1/2t: 49.5 msec MV V2 mean: 157.4 cm/sec MV dec slope: 1480 cm/sec2 MV mean P.0 mmHg MVA(P1/2t): 4.4 cm2 MV V2 VTI: 38.2 cm Ao V2 max: 192.5 cm/sec LV V1 max: 104.8 cm/sec PA V2 max: 120.6 cm/sec Ao max P.8 mmHg LV V1 max P.4 mmHg Ao V2 mean: 125.0 cm/sec Ao mean P.1 mmHg Ao V2 VTI: 35.2 cm TR max clinton: 480.2 cm/sec TR max P.3 mmHg ECHO/Echo Complete Interpretation Summary The study was technically difficult. Left ventricular systolic function is normal. The estimated ejection fraction is 60 %. Moderately dilated right ventricle. Moderate global right ventricular systolic dysfunction. The left atrium is mildly enlarged. The right atrium is mildly enlarged. Stable appearing mechanical mitral valve apparatus. The mitral valve chordae are thickened and/or calcified. Trivial transvalvular insufficiency of the mitral valve. Moderately severe (3+) tricuspid valve insufficiency. Moderate focal aortic valve calcification. Mild (1+) pulmonic valve insufficiency. Right ventricular systolic pressure estimated to be 107 mmHg. Severe pulmonary hypertension. Unable to assess diastolic dysfunction. ICD or pacer leads identified within the right atrium ICD or pacer leads identified within the right ventricle. Ordering Physician: Jaja Pereira Referring Physician: Kodak Muñoz Performed By: Ginny Valenzuela, SCOTT, RVT
[2022-04-02] MEDS: Digoxin 250 MCG/ML Ampul IV ×2 (11:48→14:24)
--- NOTE | 2022-04-02 11:55 | PCM.CONS.C ---
Assessment & Plan Assessment/Plan (1) Chronic gastrointestinal bleeding: (2) Thrombocytopenia: (3) Chronic heart failure with preserved ejection fraction (HFpEF): (4) Presence of permanent cardiac pacemaker: (5) Nonrheumatic mitral (valve) insufficiency: (6) History of mitral valve replacement with mechanical valve: (7) Acute GI bleeding: (8) Longstanding persistent atrial fibrillation: PLAN: 81-year-old patient with multiple medical comorbidities Patient had history of chronic gastrointestinal bleed and in this admission she had a supratherapeutic INR and patient had a history of mechanical mitral valve replacement July 2018 Also had a history of permanent pacemaker in August 2018. Patient follow-up at the cardiology clinic with her primary robotics systems engineer Dr. Mendoza for Patient had chronic persistent atrial fibrillation. Patient has secondary pulmonary hypertension and a history of longstanding smoking. With COPD/nicotine dependence And in this admission she has acute on chronic blood loss with anemia requiring blood transfusion. Noted her INR was elevated patient had coagulopathy and has been on Coumadin due to the A. fib as well as mechanical mitral valve. Also she had acute on chronic hypoxemic respiratory failure. On review of the director of cardiac rehabilitation today she had an A. fib with rapid ventricular rate and I noted the blood pressure was in the lower side Also there is concern of medication with amiodarone, digoxin causing vomiting dizziness and nausea and dry heaves with digoxin Cardiac care plan recommendations; 1. We will continue for rate control/A. fib with RVR 2. We will continue to monitor , INR. High risk patient with a chronic GI bleed multiple evaluation by GI in the past And also risk of stroke with an A. fib and mechanical mitral valve prosthesis If there is no active bleed we will continue to keep an INR in the range of 2?3. 3. Continue rate control with digoxin and beta-lion 4. We will evaluate by echocardiogram and we will follow-up clinically HPI Consult Data Date of Consult: 04/02/22 HPI Narrative Reason for Consultation: Mechanical mitral valve/chronic atrial fibrillation/supratherapeutic INR HPI Narrative: EMANI LOUIS, is a 81 F who presents [facility] Medical History (Updated 03/31/22 @ 17:[address] Samuel Friend, DO) Abdominal distension Adenomatous colon polyp Anemia Anemia in chronic kidney disease Anxiety Atrial fibrillation Bilateral leg edema Cardiac pacemaker in situ Carotid bruit Cholelithiasis Chronic heart failure with preserved ejection fraction (HFpEF) Cirrhosis Cirrhosis of liver with ascites CKD (chronic kidney disease) COPD (chronic obstructive pulmonary disease) Depression Depression Diverticulosis GERD (gastroesophageal reflux disease) GI bleed GI bleeding HLD (hyperlipidemia) Hypokalemia Hypotension Iron deficiency Irregular heart beat Kidney disease half-way current use of anticoagulant Longstanding persistent atrial fibrillation Nicotine dependence Non-rheumatic aortic stenosis Non-rheumatic tricuspid valve insufficiency Nonrheumatic mitral (valve) insufficiency Pancytopenia Pericardial effusion Pleural effusion PVC's (premature ventricular contractions) Secondary pulmonary hypertension Smoker Tachycardia-bradycardia syndrome Thrombocytopenia Type 2 diabetes mellitus Typical atrial flutter Home Medications ferrous sulfate 325 mg (65 mg iron) tablet 650 mg PO QHS SUPPLEMENT 04/02/15 [History Last Taken 01/18/21] folic acid 1 mg tablet 1 mg PO DAILY@0800 supplement 04/30/15 [History Last Taken 01/17/21] cyanocobalamin (vitamin B-12) 2,500 mcg tablet 2,500 mcg PO DAILY vitamin 06/10/16 [History Last Taken 01/17/21] magnesium 250 mg tablet 250 mg PO DAILY supplement 05/24/17 [History Last Taken 01/17/21] cholecalciferol (vitamin D3) 25 mcg (1,000 unit) capsule 1,000 unit PO DAILY SUPPLEMENT 04/07/19 [History Last Taken 01/17/21] darbepoetin peace in polysorbat 200 mcg/0.4 mL in polysorbate injection syringe 0.4 ml IM TH BLOOD 04/29/20 [History Last Taken 01/13/21] pantoprazole 40 mg tablet,delayed release 40 mg PO BID gerd 30 days #60 tabs 06/21/20 [Rx Last Taken 01/17/21] hydrocodone-acetaminophen 5-325mg 5mg-325mg 0.5 - 1 tab PO Q8H PRN Pain 01/19/21 [History Last Taken 01/19/21] levothyroxine 100 mcg tablet 100 mcg PO DAILY THYROID 01/19/21 [History Last Taken 01/17/21] warfarin 1 mg tablet 2 mg PO .COMPLEX 2nd rx for dose clarification #180 tabs 01/27/21 [Rx Last Taken Unknown] venlafaxine 37.5 mg tablet 37.5 mg PO BID DEPRESSION 05/03/21 [History Last Taken Unknown] metoprolol succinate 25 mg tablet,extended release 24 hr 12.5 mg PO BID 90 days #90 tabs 09/08/21 [Rx Last Taken Unknown] furosemide 40 mg tablet 40 mg PO BID #180 tabs 12/21/21 [Rx Last Taken Unknown] warfarin 2 mg tablet 2 mg PO .COMPLEX 2nd RX for dose clarification #180 tabs 03/06/22 [Rx Last Taken Unknown] potassium chloride 20 mEq tablet,extended release(part/cryst) 20 meq PO BID SUPPLEMENT #180 tabs 03/15/22 [Rx Last Taken Unknown] Allergy/AdvReac Type Severity Reaction Status Date / Time amiodarone AdvReac vomiting, Verified 03/31/22 09:02 poor balance, dizziness digoxin AdvReac nausea, Verified 03/31/22 09:02 dry heaves lorazepam [From Ativan] AdvReac Unknown Verified 03/31/22 09:02 meloxicam [From Mobic] AdvReac Unknown Verified 03/31/22 09:02 nortriptyline HCl AdvReac Unknown Verified 03/31/22 09:02 [From Pamelor] zolpidem tartrate AdvReac Unknown Verified 03/31/22 09:02 [From Ambien] Family History Mother Cancer lung and renal Father Heart disease Surgical History History of cardioversion (10/2015) History of incision of pericardium History of left heart catheterization (07/17/08) History of mitral valve replacement with mechanical valve (07/22/08) History of tubal ligation Presence of permanent cardiac pacemaker (08/30/18) Social History Smoking Status: Current every day smoker tobacco type: cigarettes Tobacco: How many years used: 60 alcohol intake: never substance use type: does not use caffeine: Yes Type: carbonated beverages what type of physical activity do you participate in: none seatbelt use: always do you feel safe at home: Yes Physical Exam Narrative Patient seen and evaluated in the intensive care unit along with the medical team and the nursing staff Underlying cardiac rhythm is A. fib with RVR. Patient alert orientated Does not have any chest pain Cardiovascular exam; S1-S2 regular, and she has a pansystolic murmur well heard in the mitral valve area Chest exam; she has rhonchi in the right lower base With diminished air entry bilateral minimal Examination lower extremity no lower extremity edema Risk Stratification Risk Stratification Applicable: Yes Age >/= 65: Yes >/= 3 CAD Risk Factors (HTN, HLD, DM, family hx of CAD, or current smoker): Yes Aspirin Use in the Past 7 Days: No Severe Angina (>/= episodes in 24 hours): No EKG ST Changes >/= 0.5mm: No Positive Cardiac Marker: No CHRISTINE Risk Stratification Score: 2 CHRISTINE % Risk: 8% Risk Objective Data Vital Signs: Vital Signs Temp Pulse Resp BP Pulse Ox O2 Del Method O2 Flow Rate 98.2 F 99 23 H 88/57 L 93 Nasal Cannula 5 04/02/22 10:46 04/02/22 10:46 04/02/22 10:46 04/02/22 10:46 04/02/22 10:46 04/02/22 10:46 04/02/22 10:46 FiO2 36 04/02/22 09:00 Oxygen Flow Rate (L/min) 5 Oxygen Delivery Method Nasal Cannula Weight: 98 lb 5.219 oz Body Mass Index (BMI) 17.3 Intake & Output: Intake and Output for Last 24 Hours 03/31/22 04/01/22 04/02/22 23:59 23:59 23:59 Intake Total 1269.5 / 1269.5 1774.66 / 1779.66 425.07 / 425.07 Output Total 300 / 300 600 / 600 150 / 150 Balance 969.5 / 969.5 1174.66 / 1179.66 275.07 / 275.07 Lab / Micro Data Result Diagrams: 04/02/22 03:10 04/02/22 03:10 Labs: Laboratory Results - last 24 hr 03/30/22 09:14: Crossmatch See Detail 04/01/22 18:50: Hgb 10.3 L, Hct 31.2 L 04/01/22 18:50: Sodium 142, Potassium 4.0, Chloride 112 H, Carbon Dioxide 23.0, Anion Gap 7, BUN 42 H, Creatinine 1.40 H, Estim Creat Clear Calc 22.27, Est GFR (MDRD) Af Amer 47 L, Est GFR (MDRD) Non-Af 39 L, BUN/Creatinine Ratio 30.0 H, Glucose 147 H, Calcium 8.2 L, Phosphorus 2.8, Magnesium 2.1, Total Bilirubin 0.70, AST 13 L, ALT 9 L, Alkaline Phosphatase 81, Total Protein 6.1 L, Albumin 2.6 L, Globulin 3.5, Albumin/Globulin Ratio 0.7 L 04/02/22 03:10: PT 43.0 H, INR 4.6 H* 04/02/22 03:10: WBC 5.7, RBC 3.38 L, Hgb 9.8 L, Hct 31.1 L, MCV 92.0, MCH 29.0, MCHC 31.5 L, RDW Std Deviation 55.0 H, RDW Coeff of Uriel 16.8 H, Plt Count 91 L, MPV 11.4, Immature Gran % (Auto) 0.500, Neut % (Auto) 84.1 H, Lymph % (Auto) 9.2 L, [place] % (Auto) 6.0, Eos % (Auto) 0.0, Baso % (Auto) 0.2, Absolute Neuts (auto) 4.8, Absolute Lymphs (auto) 0.52 L, Nucleated RBC % 0, Anisocytosis 1+ 04/02/22 03:10: Sodium 143, Potassium 3.5, Chloride 112 H, Carbon Dioxide 24.0, Anion Gap 7, BUN 33 H, Creatinine 1.19 H, Estim Creat Clear Calc 26.20, Est GFR (MDRD) Af Amer 56 L, Est GFR (MDRD) Non-Af 47 L, BUN/Creatinine Ratio 27.7 H, Glucose 171 H, Calcium 7.6 L, Total Bilirubin 0.60, AST 9 L, ALT 11 L, Alkaline Phosphatase 79, Total Protein 5.8 L, Albumin 2.4 L, Globulin 3.4, Albumin/Globulin Ratio 0.7 L 04/02/22 03:10: Magnesium 2.0 04/02/22 03:10: Phosphorus 2.4 L 04/02/22 03:25: Fibrinogen 287, D-Dimer Quant (PE/DVT) 3.35 H* 04/02/22 03:25: APTT 57.1 H ABG Data ABG results: ABG 04/02/22 04:03 Specimen Type ART Sample Site R Radial pH 7.44 Bicarbonate Actual 20.9 L Total CO2 22 Base Excess -3 L O2 Saturation 97 ABG pCO2 30.5 L ABG pO2 84 Mika Test Positive Liter Flow 8.0 Rhythm Strip Rhythm Strip: A-fib Rate: 120 Cardiology Labs/Tests 04/01/22 18:50: Hgb 10.3 L, Hct 31.2 L 04/01/22 18:50: Sodium 142, Potassium 4.0, Chloride 112 H, Carbon Dioxide 23.0, Anion Gap 7, BUN 42 H, Creatinine 1.40 H, Est GFR (MDRD) Af Amer 47 L, Est GFR (MDRD) Non-Af 39 L, BUN/Creatinine Ratio 30.0 H, Glucose 147 H, Calcium 8.2 L, Phosphorus 2.8, Magnesium 2.1, Total Bilirubin 0.70 04/02/22 03:10: PT 43.0 H, INR 4.6 H* 04/02/22 03:10: WBC 5.7, RBC 3.38 L, Hgb 9.8 L, Hct 31.1 L, MCV 92.0, MCH 29.0, MCHC 31.5 L, Plt Count 91 L, MPV 11.4, Immature Gran % (Auto) 0.500, Neut % (Auto) 84.1 H, Lymph % (Auto) 9.2 L, [place] % (Auto) 6.0, Eos % (Auto) 0.0, Baso % (Auto) 0.2, Absolute Neuts (auto) 4.8, Nucleated RBC % 0 04/02/22 03:10: Sodium 143, Potassium 3.5, Chloride 112 H, Carbon Dioxide 24.0, Anion Gap 7, BUN 33 H, Creatinine 1.19 H, Est GFR (MDRD) Af Amer 56 L, Est GFR (MDRD) Non-Af 47 L, BUN/Creatinine Ratio 27.7 H, Glucose 171 H, Calcium 7.6 L, Total Bilirubin 0.60 04/02/22 03:10: Magnesium 2.0 04/02/22 03:10: Phosphorus 2.4 L 04/02/22 03:25: D-Dimer Quant (PE/DVT) 3.35 H* 04/02/22 03:25: APTT 57.1 H 04/02/22 04:03: pH 7.44, Bicarbonate Actual 20.9 L, Base Excess -3 L, O2 Saturation 97, ABG pCO2 30.5 L, ABG pO2 84, Mika Test Positive Rhythm: EKG: ECHO: Stress Test: Cardiac Cath: PCI: CT Surgery: Holter monitor: EPS: PPM: CXR: Chest CT Scan: Radiography Diagnostic Testing: Radiology Impression Chest X-Ray 04/02/22 02:40 IMPRESSION: Stable chest. Small right pleural effusion. Probable chronic changes at both lung bases. If there is a high clinical suspicion of right lower lobe pneumonia consider CT. Electronically Signed: Irvin Pretty MD at 3:00 EDT , Chest CTA 04/02/22 05:33 IMPRESSION: 1. Multifocal pneumonia with probable posterior right lower empyema. Small left pleural effusion. Mild mediastinal lymphadenopathy is probably reactive. 2. No demonstrated pulmonary embolism or arterial dissection. 3. Partially visualized ascites. Electronically Signed: Lars Knox MD at 7:05 EDT ,
--- NOTE | 2022-04-02 12:10 | RAD_ITS ---
STUDY: X-RAY CHEST REASON FOR EXAM: Female, 81 years old. Atrial flutter TECHNIQUE: Single frontal view of the chest. COMPARISON: Study done earlier today FINDINGS: Chronic appearing increased interstitial lung markings. Multiple median sternotomy wires are noted consistent for cardiac surgery. Prosthetic heart valve. There is a left sided pacemaker battery pack. Chronic appearing infiltrate of the mid right lung. Moderate right pleural effusion. Normal heart size. Normal mediastinum and joshua. Normal visualized pulmonary arteries. There is atherosclerotic calcification of the aortic arch with tortuosity. There are diffuse degenerative changes of the visualized thoracic spine. There is degenerative osteoarthritis of the bilateral shoulders. There is no demonstrated abnormality of the visualized soft tissue structures of the upper abdomen. RAD/Chest 1 View (Portable) IMPRESSION: There has been no change since the prior study. Electronically Signed: Mahesh Love MD at 14:37 EDT ,
[2022-04-02 14:05] LABS: Hematocrit 27.5 % (37-47)
[2022-04-02 14:16] LABS: International Normalized Ratio 2.6; Prothrombin Time (Protime)PT. 27.5 SECONDS (11.7-14.9)
[2022-04-02 15:27] LABS: Haptoglobin 37 mg/dL (42-346)
[2022-04-02] MEDS: Amiodarone 360 MG in Dextrose 5% Viaflo Bag 192.8 ML 33.3 MG CONT INF (18:54)
--- NOTE | 2022-04-02 20:57 | PN_ITS ---
Subjective Subjective Patient had another episode of GI bleeding today. She had 2 large bloody bowel movements. She was given FFP for an INR of 4.6. Current her current INR is 2.6. She is still very tachycardic and hypotensive requiring pressor therapy to maintain a systolic blood pressure above 90. Objective Data Objective Data Vital Signs: Vital Signs Temp Pulse Resp BP Pulse Ox O2 Del Method O2 Flow Rate 98.7 F 133 H 23 H 108/63 100 Nasal Cannula 5 04/02/22 20:00 04/02/22 20:00 04/02/22 20:00 04/02/22 20:45 04/02/22 20:00 04/02/22 20:00 04/02/22 20:00 FiO2 97 04/02/22 11:03 Oxygen Flow Rate (L/min) 5 Oxygen Delivery Method Nasal Cannula Weight: 98 lb 5.219 oz Body Mass Index (BMI) 17.3 Intake & Output: Intake and Output for Last 24 Hours 03/31/22 04/01/22 04/02/22 23:59 23:59 23:59 Intake Total 1269.5 / 1269.5 1774.66 / 1779.66 1558.31 / 1558.31 Output Total 300 / 300 600 / 600 150 / 150 Balance 969.5 / 969.5 1174.66 / 1179.66 1408.31 / 1408.31 Medical Nutrition Assessment Dietitian: Malnutrition Criteria Met Start: 03/31/22 13:08 Freq: Status: Active Protocol: Document 04/02/22 13:15 RMA (Rec: 04/02/22 13:15 RMA [id number]) Nutrition Malnutrition Evidence of Malnutrition Exists Yes Malnutrition (severe): Chronic Evidenced By Suboptimal Energy Intake ( Severe),Weight Loss (Severe) Intake Problem Inadequate Oral Intake Etiology related to altered GI function Signs/Symptoms as evidenced by NPO/clear liquid diet x day 3 today Status Active Problem Clinical Problem Chronic Disease or Condition Related Malnutrition Etiology Severe protein-calorie malnutrition in the context of chronic disease related to altered GI function and inadequate oral intake Signs/Symptoms as evidenced by weight loss~11 % in less than 2 months, BMI 17.3, muscle/fat wasting in the face, clavicle, arms and legs, currently NPO and PO meeting less than 50% estimated nutrition needs x past 1 month Status Active Problem Recommendation Dietitian Recommendations/Changes Recommend advance PO diet as medically able to Transitional with goal of regular diet; carb-controlled as needed. Ensure clear as diet advanced from NPO. Glucerna shake as able for weight gain and nutrient repletion. Consider parenteral nutrition support if unable to advance diet in next 24 hours especially given signs/ symptoms of severe malnutrition. Lab / Micro Data Result Diagrams: 04/02/22 13:57 04/02/22 03:10 Labs: Laboratory Results - last 24 hr 03/30/22 09:14: Crossmatch See Detail 03/31/22 09:18: Haptoglobin 37 L 04/02/22 03:10: PT 43.0 H, INR 4.6 H* 04/02/22 03:10: WBC 5.7, RBC 3.38 L, Hgb 9.8 L, Hct 31.1 L, MCV 92.0, MCH 29.0, MCHC 31.5 L, RDW Std Deviation 55.0 H, RDW Coeff of Uriel 16.8 H, Plt Count 91 L, MPV 11.4, Immature Gran % (Auto) 0.500, Neut % (Auto) 84.1 H, Lymph % (Auto) 9.2 L, [place] % (Auto) 6.0, Eos % (Auto) 0.0, Baso % (Auto) 0.2, Absolute Neuts (auto) 4.8, Absolute Lymphs (auto) 0.52 L, Nucleated RBC % 0, Anisocytosis 1+ 04/02/22 03:10: Sodium 143, Potassium 3.5, Chloride 112 H, Carbon Dioxide 24.0, Anion Gap 7, BUN 33 H, Creatinine 1.19 H, Estim Creat Clear Calc 26.20, Est GFR (MDRD) Af Amer 56 L, Est GFR (MDRD) Non-Af 47 L, BUN/Creatinine Ratio 27.7 H, Glucose 171 H, Calcium 7.6 L, Total Bilirubin 0.60, AST 9 L, ALT 11 L, Alkaline Phosphatase 79, Total Protein 5.8 L, Albumin 2.4 L, Globulin 3.4, Alb umin/Globulin Ratio 0.7 L 04/02/22 03:10: Magnesium 2.0 04/02/22 03:10: Phosphorus 2.4 L 04/02/22 03:25: Fibrinogen 287, D-Dimer Quant (PE/DVT) 3.35 H* 04/02/22 03:25: APTT 57.1 H 04/02/22 13:57: Hgb 9.0 L, Hct 27.5 L 04/02/22 13:57: PT 27.5 H, INR 2.6 04/02/22 13:57: Blood Type A POSITIVE, Antibody Screen NEGATIVE, Crossmatch See Detail Micro: Microbiology 03/31/22 18:10 Stool Stool Occult Blood (TAMEKA) - Final Occult Blood Positive ABG Data ABG results: ABG 04/02/22 04:03 Specimen Type ART Sample Site R Radial pH 7.44 Bicarbonate Actual 20.9 L Total CO2 22 Base Excess -3 L O2 Saturation 97 ABG pCO2 30.5 L ABG pO2 84 Mika Test Positive Liter Flow 8.0 Radiography Diagnostic Testing: Radiology Impression Chest X-Ray 04/02/22 02:40 IMPRESSION: Stable chest. Small right pleural effusion. Probable chronic changes at both lung bases. If there is a high clinical suspicion of right lower lobe pneumonia consider CT. Electronically Signed: Irvin Pretty MD at 3:00 EDT Reading Location ID and State: [id number] / , Service support , Chest CTA 04/02/22 05:33 IMPRESSION: 1. Multifocal pneumonia with probable posterior right lower empyema. Small left pleural effusion. Mild mediastinal lymphadenopathy is probably reactive. 2. No demonstrated pulmonary embolism or arterial dissection. 3. Partially visualized ascites. Electronically Signed: Lars Knox MD at 7:05 EDT , Chest X-Ray 04/02/22 12:10 IMPRESSION: There has been no change since the prior study. Electronically Signed: Mahesh Love MD at 14:37 EDT , ADDENDUM: 04/02/22 1508 IMPRESSION: undefined Rhythm Strip Rhythm Strip: A-fib Rate: 120 Physical Exam Narrative Patient seen and evaluated in the intensive care unit along with the medical team and the nursing staff Underlying cardiac rhythm is A. fib with RVR. Patient alert orientated Does not have any chest pain Cardiovascular exam; S1-S2 regular, and she has a pansystolic murmur well heard in the mitral valve area Chest exam; she has rhonchi in the right lower base With diminished air entry bilateral minimal Examination lower extremity no lower extremity edema Assessment & Plan Assessment/Plan (1) Cirrhosis: PLAN: Patient is having decompensated cirrhosis due to the fact that she is bleeding. She has not shown any signs of jaundice, encephalopathy from the GI bleeding(as that is a cause of decompensated cirrhosis) or ascites. Her platelet count from cirrhosis is 91. She is a child C with a low meld of 8 (2) Acute GI bleeding: PLAN: I am not sure where her recent acute GI bleeding is from at this time. She is felt not safe to sedate by anesthesia at this time. She did get her INR reduced with FFP. Hopefully that will be enough in order to stop her from bleeding. When she is medically stable then she can have a colonoscopy. (3) Supratherapeutic INR: PLAN: Continue to monitor INR. Charges/Coding Visit Charges Inpatient E&M: 21337 Subs Hosp L2
[2022-04-03] VITALS (50 sets, daily range): BP systolic 62–128; BP diastolic 40–100; PULSE 91–131; RESP 16–29; TEMP 36.3–37.2; O2SAT 91–100
[2022-04-03] MEDS: Amiodarone 360 MG in Dextrose 5% Viaflo Bag 192.8 ML 16.7 MG CONT INF (00:55)
[2022-04-03 03:45] LABS: Absolute Neutrophil Count 4.4 X10^3/uL (2.0-7.7); Basophil# 0.01 X10^3/uL; Basophil% 0.2 % (0-1); Hematocrit 26.1 % (37-47); Hemoglobin 8.6 g/dL (12.0-15.0); Lymphocyte % 9.4 % (19-41); Mean Corpuscular Volume 90.9 fL (81-99); Mean Platelet Vol. 10.3 fl (6.2-12.0); Monocyte% 7.5 % (0-10); NRBC Flagged by Analyzer 0 % (0-5); Neutrophil % 82.5 % (47-70); POSITIVE COUNT YES; POSITIVE DIFFERENTIAL YES; Platelet Count 83 K/mm3 (150-450); RBC Distribution Width CV 15.7 % (11.6-14.6); RBC Distribution Width SD 51.2 fl (35.1-43.9); Red Blood Count 2.87 M/mm3 (4.2-5.4); White Blood Count 5.3 K/mm3 (4.4-11.0)
[2022-04-03] MEDS: Ipratropium 0.5 MG/2.5 ML SOLUTION INHALATION ×3 (03:51→10:37)
[2022-04-03 03:52] LABS: International Normalized Ratio 3.9; Prothrombin Time (Protime)PT. 37.9 SECONDS (11.7-14.9)
[2022-04-03 03:57] LABS: Differential Indicated SCAN CRITERIA MET
[2022-04-03 04:01] LABS: ALB/GLOB Ratio 0.7 RATIO (0.9-2.4); AST(SGOT) 9 U/L (15-37); Alanine Aminotransfer ALT/SGPT 7 U/L (13-56); Albumin, Serum 2.2 g/dL (3.2-5.0); Alkaline Phosphatase 74 U/L (45-117); Anion Gap 7 (5-15); BUN 19 mg/dL (7-18); BUN/Creat Ratio 22.2 RATIO (10-20); Calcium,Total 7.6 mg/dL (8.5-10.1); Chloride 112 mmol/L (98-107); Creatinine, Serum 0.86 mg/dL (0.55-1.02); EST Glomerular Filtration Rate 68 mL/min (>60); Est Glom Filt Rate - Afr Amer 82 mL/min (>60); Estimated Creatinine Clearance 37.35 ml/min; Globulin 3.1 g/dL (2.2-4.2); Glucose 143 mg/dL (74-106); Protein, Total 5.3 g/dL (6.4-8.2); Sodium Level 143 mmol/L (136-145)
[2022-04-03 04:33] LABS: Anisocytosis 1+
[2022-04-03 04:34] LABS: Platelet Estimate MOD DEC (ADEQ)
[2022-04-03] MEDS: 0.9% Saline Lock 10 ML Syringe IV (05:09)
[2022-04-03] MEDS: fentaNYL 100 MCG/2 ML Ampul 25 MCG IV (05:09)
--- NOTE | 2022-04-03 06:36 | PCM.PN.INT ---
Assessment & Plan Assessment/Plan (1) Acute GI bleeding: PLAN: Plan RECOMMENDATIONS: 1. Wean Levophed to maintain a mean arterial pressure at or above 65 mmHg. 2. Continue PPI therapy as ordered. 3. Electrolyte repletion as ordered. 4. Continue to monitor blood counts daily. Transfuse if hemoglobin is less than 7 g/dL. 5. FFP is ordered. Recheck INR. 6. If INR remains supratherapeutic, consider administration of vitamin K. 7. Tentative plans for colonoscopy today. 8. Echocardiogram is pending. IMPRESSIONS: 1. Acute on chronic blood loss anemia The patient has a history of chronic anemia and presented with acute blood loss and hypotension. She underwent upper endoscopy which revealed 2 bleeding angiodysplastic lesions which were treated with a heater probe. She has been transfused blood products. Although her hemoglobin is currently stable, the patient still has a vasopressor requirement. She is currently being followed by gastroenterology with tentative plans for colonoscopy today. Plan to continue to monitor H&H daily and transfuse if hemoglobin is less than 7 g/dL. Continue PPI therapy as ordered. 2. Hemorrhagic shock Plan continue current supportive measures including vasopressor support to maintain a mean arterial pressure at or above 65 mmHg. Transfuse blood products as necessary to maintain hemoglobin at or above 7 g/dL. Continue PPI therapy. Initiate midodrine today in hopes of weaning further from Levophed. 3. Coagulopathy Continue to hold home Coumadin. Additional FFP is currently transfusing. If INR remains supratherapeutic and ongoing blood loss is a concern, consider vitamin K administration. 4. Acute on chronic hypoxemic respiratory failure/COPD Improved. The patient has a baseline oxygen requirement of 2 L/min. She is currently doing well from a respiratory perspective. Plan to continue Zosyn over concerns for possible aspiration pneumonia. Encourage incentive spirometer use and mobilize patient as tolerated. Continue scheduled Atrovent as ordered. 5. Hypokalemia Electrolyte repletion as ordered. Recheck levels in the morning. 6. Atrial fibrillation with RVR/history of mitral valve replacement/hypothyroidism/PAN cirrhosis Complicates care, management, recovery and prognosis. Continue amiodarone for rate/rhythm control. Echocardiogram is pending. TIME: 37 minutes of critical care time, independent of procedures, was spent addressing the patient's acute on chronic blood loss anemia, hemorrhagic shock, coagulopathy, acute on chronic hypoxemic respiratory failure, review of all data and collaboration with the care team. Subjective Subjective The patient was seen and examined at the bedside this morning. Events from the last 24 hours have been reviewed. The patient is currently afebrile and maintaining hemodynamic stability on Levophed at 6 mcg/min. Oxygenation status is stable on 2 L/min via nasal cannula. The patient has received a total of 4 units of packed red blood cells to date. She is currently documented to be overall net +4.3 L for the hospitalization. Hemoglobin is stable at 8.6 g/dL with a platelet count of 83,000. INR is elevated at 3.9. Potassium is low at 3.0. Objective Data Objective Data The patient's most recent lab work, culture data and imaging studies have all been personally reviewed. Stool for occult blood was positive. Vital Signs: Vital Signs Temp Pulse Resp BP Pulse Ox O2 Del Method O2 Flow Rate 97.9 F 99 18 95/57 L 99 Nasal Cannula 2 04/03/22 05:00 04/03/22 06:00 04/03/22 06:00 04/03/22 06:15 04/03/22 06:00 04/03/22 06:00 04/03/22 06:00 FiO2 97 04/02/22 11:03 Oxygen Flow Rate (L/min) 2 Oxygen Delivery Method Nasal Cannula Weight: 98 lb 5.219 oz Body Mass Index (BMI) 17.3 Intake & Output: Intake and Output for Last 24 Hours 04/01/22 04/02/22 04/03/22 23:59 23:59 23:59 Intake Total 1774.66 / 1779.66 192. / 2055.84 377.09 / 377.09 Output Total 600 / 600 150 / 150 Balance 1174.66 / 1179.66 1771.19 / 1906.84 377.09 / 377.09 Medical Nutrition Assessment Dietitian: Malnutrition Criteria Met Start: 03/31/22 13:08 Freq: Status: Active Protocol: Document 04/02/22 13:15 RMA (Rec: 04/02/22 13:15 RMA [id number]) Nutrition Malnutrition Evidence of Malnutrition Exists Yes Malnutrition (severe): Chronic Evidenced By Suboptimal Energy Intake ( Severe),Weight Loss (Severe) Intake Problem Inadequate Oral Intake Etiology related to altered GI function Signs/Symptoms as evidenced by NPO/clear liquid diet x day 3 today Status Active Problem Clinical Problem Chronic Disease or Condition Related Malnutrition Etiology Severe protein-calorie malnutrition in the context of chronic disease related to altered GI function and inadequate oral intake Signs/Symptoms as evidenced by weight loss~11 % in less than 2 months, BMI 17.3, muscle/fat wasting in the face, clavicle, arms and legs, currently NPO and PO meeting less than 50% estimated nutrition needs x past 1 month Status Active Problem Recommendation Dietitian Recommendations/Changes Recommend advance PO diet as medically able to Transitional with goal of regular diet; carb-controlled as needed. Ensure clear as diet advanced from NPO. Glucerna shake as able for weight gain and nutrient repletion. Consider parenteral nutrition support if unable to advance diet in next 24 hours especially given signs/ symptoms of severe malnutrition. Lab / Micro Data Attestation: I reviewed the patient's lab results. Result Diagrams: 04/03/22 03:35 04/03/22 03:35 Labs: Laboratory Results - last 24 hr 03/30/22 09:14: Crossmatch See Detail 03/31/22 09:18: Haptoglobin 37 L 04/02/22 03:25: APTT 57.1 H 04/02/22 13:57: Hgb 9.0 L, Hct 27.5 L 04/02/22 13:57: PT 27.5 H, INR 2.6 04/02/22 13:57: Blood Type A POSITIVE, Antibody Screen NEGATIVE, Crossmatch See Detail 04/03/22 03:35: PT 37.9 H, INR 3.9 04/03/22 03:35: WBC 5.3, RBC 2.87 L, Hgb 8.6 L, Hct 26.1 L, MCV 90.9, MCH 30.0, MCHC 33.0, RDW Std Deviation 51.2 H, RDW Coeff of Uriel 15.7 H, Plt Count 83 L, MPV 10.3, Immature Gran % (Auto) 0.400, Neut % (Auto) 82.5 H, Lymph % (Auto) 9.4 L, [place] % (Auto) 7.5, Eos % (Auto) 0.0, Baso % (Auto) 0.2, Absolute Neuts (auto) 4.4, Absolute Lymphs (auto) 0.50 L, Nucleated RBC % 0, Platelet Estimate MOD DEC, Anisocytosis 1+ 04/03/22 03:35: Sodium 143, Potassium 3.0 L, Chloride 112 H, Carbon Dioxide 24.0, Anion Gap 7, BUN 19 H, Creatinine 0.86, Estim Creat Clear Calc 37.35, Est GFR (MDRD) Af Amer 82, Est GFR (MDRD) Non-Af 68, BUN/Creatinine Ratio 22.2 H, Glucose 143 H, Calcium 7.6 L, Total Bilirubin 0.90, AST 9 L, ALT 7 L, Alkaline Phosphatase 74, Total Protein 5.3 L, Albumin 2.2 L, Globulin 3.1, Albumin/Globulin Ratio 0.7 L Micro: Microbiology 03/31/22 18:10 Stool Stool Occult Blood (TAMEKA) - Final Occult Blood Positive ABG Data ABG results: ABG 04/02/22 04:03 Specimen Type ART Sample Site R Radial pH 7.44 Bicarbonate Actual 20.9 L Total CO2 22 Base Excess -3 L O2 Saturation 97 ABG pCO2 30.5 L ABG pO2 84 Mika Test Positive Liter Flow 8.0 Radiography Diagnostic Testing: Radiology Impression Chest CTA 04/02/22 05:33 IMPRESSION: 1. Multifocal pneumonia with probable posterior right lower empyema. Small left pleural effusion. Mild mediastinal lymphadenopathy is probably reactive. 2. No demonstrated pulmonary embolism or arterial dissection. 3. Partially visualized ascites. Electronically Signed: Lars Knox MD at 7:05 EDT , Chest X-Ray 04/02/22 12:10 IMPRESSION: There has been no change since the prior study. Electronically Signed: Mahesh Love MD at 14:37 EDT , ADDENDUM: 04/02/22 1508 IMPRESSION: undefined Rhythm Strip Rhythm Strip: A-fib Rate: 120 Physical Exam Const alert and no apparent distress Constitutional Narrative: Sitting in bedside recliner. General Appearance: cooperative and frail Nutritional Appearance: thin HEENT normocephalic and head/scalp atraumatic Eyes PERRL and EOMs intact bilaterally Neck supple General: trachea midline Chest inspection of chest normal Resp normal respiratory effort Auscultation: Negative for rales, rhonchi or wheezes Cardio S1 normal heart sound and S2 normal heart sound Rhythm: abnormal rhythm Heart Sounds: murmur systolic GI normal to inspection, nondistended, normoactive bowel sounds Extremity no clubbing, cyanosis or edema Skin no rashes or lesions noted Neuro CN's II-XII intact bilaterally and no focal motor deficits Psych cooperative and affect normal Charges/Coding Procedures Hospitalists Procedures: 93681 Critial Care 1st Hr
--- NOTE | 2022-04-03 07:20 | PN.HOSP_ITS ---
Subjective Subjective Patient on vasopressor, Levophed. She is very tired of intense medical treatment including procedure, ICU care. She does not want colonoscopy and wants to go home when relaxed. IM patient's nurse, Rochelle talked to the patient. Further I talked to patient's son Mr. Ewing which she wanted me to relay regarding her decision for palliative/hospice care. He agrees. Palliative/hospice care consulted. Objective Data Objective Data Vital Signs: Vital Signs Temp Pulse Resp BP Pulse Ox O2 Del Method O2 Flow Rate 97.4 F L 104 H 18 106/52 L 99 Nasal Cannula 2 04/03/22 06:51 04/03/22 07:05 04/03/22 07:05 04/03/22 07:00 04/03/22 07:05 04/03/22 07:05 04/03/22 07:05 FiO2 97 04/02/22 11:03 Oxygen Flow Rate (L/min) 2 Oxygen Delivery Method Nasal Cannula Weight: 98 lb 5.219 oz Body Mass Index (BMI) 17.3 Intake & Output: Intake and Output for Last 24 Hours 04/01/22 04/02/22 04/03/22 23:59 23:59 23:59 Intake Total 1774.66 / 1779.66 1921.19 / 2056.84 400.93 / 400.93 Output Total 600 / 600 150 / 150 Balance 1174.66 / 1179.66 1771.19 / 1906.84 400.93 / 400.93 Medical Nutrition Assessment Dietitian: Malnutrition Criteria Met Start: 03/31/22 13:08 Freq: Status: Active Protocol: Document 04/02/22 13:15 RMA (Rec: 04/02/22 13:15 RMA [id number]) Nutrition Malnutrition Evidence of Malnutrition Exists Yes Malnutrition (severe): Chronic Evidenced By Suboptimal Energy Intake ( Severe),Weight Loss (Severe) Intake Problem Inadequate Oral Intake Etiology related to altered GI function Signs/Symptoms as evidenced by NPO/clear liquid diet x day 3 today Status Active Problem Clinical Problem Chronic Disease or Condition Related Malnutrition Etiology Severe protein-calorie malnutrition in the context of chronic disease related to altered GI function and inadequate oral intake Signs/Symptoms as evidenced by weight loss~11 % in less than 2 months, BMI 17.3, muscle/fat wasting in the face, clavicle, arms and legs, currently NPO and PO meeting less than 50% estimated nutrition needs x past 1 month Status Active Problem Recommendation Dietitian Recommendations/Changes Recommend advance PO diet as medically able to Transitional with goal of regular diet; carb-controlled as needed. Ensure clear as diet advanced from NPO. Glucerna shake as able for weight gain and nutrient repletion. Consider parenteral nutrition support if unable to advance diet in next 24 hours especially given signs/ symptoms of severe malnutrition. Lab / Micro Data Result Diagrams: 04/03/22 03:35 04/03/22 03:35 Labs: Laboratory Results - last 24 hr 03/30/22 09:14: Crossmatch See Detail 03/31/22 09:18: Haptoglobin 37 L 04/02/22 03:25: APTT 57.1 H 04/02/22 13:57: Hgb 9.0 L, Hct 27.5 L 04/02/22 13:57: PT 27.5 H, INR 2.6 04/02/22 13:57: Blood Type A POSITIVE, Antibody Screen NEGATIVE, Crossmatch See Detail 04/03/22 03:35: PT 37.9 H, INR 3.9 04/03/22 03:35: WBC 5.3, RBC 2.87 L, Hgb 8.6 L, Hct 26.1 L, MCV 90.9, MCH 30.0, MCHC 33.0, RDW Std Deviation 51.2 H, RDW Coeff of Uriel 15.7 H, Plt Count 83 L, MPV 10.3, Immature Gran % (Auto) 0.400, Neut % (Auto) 82.5 H, Lymph % (Auto) 9.4 L, [place] % (Auto) 7.5, Eos % (Auto) 0.0, Baso % (Auto) 0.2, Absolute Neuts (auto) 4.4, Absolute Lymphs (auto) 0.50 L, Nucleated RBC % 0, Platelet Estimate MOD DEC, Anisocytosis 1+ 04/03/22 03:35: Sodium 143, Potassium 3.0 L, Chloride 112 H, Carbon Dioxide 24.0, Anion Gap 7, BUN 19 H, Creatinine 0.86, Estim Creat Clear Calc 37.35, Est GFR (MDRD) Af Amer 82, Est GFR (MDRD) Non-Af 68, BUN/Creatinine Ratio 22.2 H, Glucose 143 H, Calcium 7.6 L, Total Bilirubin 0.90, AST 9 L, ALT 7 L, Alkaline Phosphatase 74, Total Protein 5.3 L, Albumin 2.2 L, Globulin 3.1, Albumin/Globulin Ratio 0.7 L Micro: Microbiology 03/31/22 18:10 Stool Stool Occult Blood (TAMEKA) - Final Occult Blood Positive ABG Data ABG results: ABG 04/02/22 04:03 Specimen Type ART Sample Site R Radial pH 7.44 Bicarbonate Actual 20.9 L Total CO2 22 Base Excess -3 L O2 Saturation 97 ABG pCO2 30.5 L ABG pO2 84 Mika Test Positive Liter Flow 8.0 Radiography Diagnostic Testing: Radiology Impression Chest X-Ray 04/02/22 12:10 IMPRESSION: There has been no change since the prior study. Electronically Signed: Mahesh Love MD at 14:37 EDT Reading Location ID and State: [facility] / [place] , Service support , ADDENDUM: 04/02/22 1508 IMPRESSION: undefined Rhythm Strip Rhythm Strip: A-fib Rate: 120 Physical Exam Narrative General: Alert, Oriented x3, Cooperative HEENT: Atraumatic, PERRLA, EOMI, Normocephalic Oral: No Gingival or Mucosal Lesions/ Ulcerations Neck: Supple, No JVD, Negative Carotid Bruits Lungs: Air entry diminished in bilateral lung bases. No crepitation/rhonchi Cardiovascular: Sinus rhythm. Pansystolic murmur on cardiac apex with radiation all over the chest, artificial mitral valve. Abdomen: Bowel Sounds Present, Soft, Non Tender, Non-Distended : No renal angle tenderness. No suprapubic tenderness. Extremities: No edema, Capillary Refill Less than 3 Seconds Skin: No rashes, No breakdown Musculoskeletal: No Tenderness to Palpation of Joints or Extremities Neurological: Cranial nerves II-XII grossly intact, DTR 2+/4 and Symmetrical, Neuro grossly intact Psych/Mental Status: Flat affect. Assessment & Plan Assessment/Plan (1) Anemia requiring transfusions: (2) Supratherapeutic INR: (3) Acute GI bleeding: PLAN: Plan 81-year-old female with past medical history of mechanical mitral valve replacement, history of recurrent GI bleed comes in with severe anemia with hemoglobin 4.8. 1. Acute hypoxic respiratory failure secondary to probable aspiration pne umonia/right lower lobe pneumonia Patient had large emesis on 04/01/22 Chest x-ray this morning showed right lower lobe pneumonia CTA of the chest today shows multifocal pneumonia with probable posterior right lower empyema Was started on IV ceftriaxone; switch to IV Zosyn On bronchodilator Patient was on Airvo, currently on 2 L of oxygen to keep pulse ox above 90% 2. Hemorrhagic shock due to GI bleed on vasopressor. Coagulopathy as patient on warfarin for history of A. fib and mechanical mitral valve. Patient was hypotensive on admission, blood pressures have remained relatively soft Blood pressure likely worsened with arrhythmia Currently on Levophed via peripheral line Patient initially refused central line; agreeable to PICC line 04/03: Patient not eager to continue ICU care, refusing for colonoscopy. The patient, power of claims attorney for [facility], her youngest son Mr. Ewing agreed for palliative/hospice care. Patient is getting FFP. INR supratherapeutic. Hemoglobin 8.6. CBC trend reviewed and platelet count remain similar. 3. Arrhythmia, A. fib with RVR/recent SVT, heart rate is better controlled Was on Cardizem drip, discontinued due to hypotension Cardiology consulted and reviewed. Patient had digoxin and beta-lion. Currently on amiodarone drip. Echo is pending 4. Acute on chronic severe anemia secondary to acute GI bleed Patient with history of recurrent GI bleed INR was supratherapeutic on admission; home Coumadin on hold Admission hemoglobin was 4.8. Hemoglobin now is 9.8 Status 3 units of packed RBC (03/31 and 04/01) Continue to monitor H&H every 6h. Inspector Assembly and GI following 5. Acute on chronic GI bleed, history of duodenal ectasia and diverticulosis, in a patient with underlying cirrhosis EGD on 04/01/22 showed 2 bleeding angiodysplastic lesions that were treated with heater probe Continue IV PPI BID 6. Pancytopenia in the setting of chronic liver disease/PAN cirrhosis -chronic leukopenia and thrombocytopenia Patient's current WBC count and platelets remain about the same continue to monitor 7. Supratherapeutic INR, status post mechanical valve replacement, was on chronic home Coumadin; been off since admission Status post 1 unit of FFP (03/31) INR is 4.6, currently being transfused 2 units of FFPs 04/03 INR continues to be high, 3.9 8. CKD stage IIIa, creatinine is 1.19 from 1.40 04/03: Patient has hypokalemia and hypophosphatemia, getting K-Phos. Magnesium normal 9. Hypothyroidism, continue on synthroid 10. Anxiety and depression, continue Venlafaxine 11. Severe protein-calorie malnutrition, channel sales manager consulted, continue on supplements 12. DVT PPx- SCDs 13. GI PPx- On PPI BID Total time of the visit including total time spent in counseling or coordination of care, (more than 50% of the total time, spent in obtaining medical information from nurses and other ancillary care providers,explaining to the patient about labs, imaging, diagnosis and management of active complex medical conditions), discussion with patient and her son with regard to palliative and hospice care, discussion with consultants, review of labs and imaging is 45 minutes. Hospice care consult ordered e Charges/Coding Visit Charges Inpatient E&M: 64884 Subs Hosp L3
--- NOTE | 2022-04-03 09:00 | PCM.PROGNOTE ---
Subjective Subjective Patient did not have any more GI bleeding this morning. She had multiple episodes of GI bleeding yesterday. She has decided to go on hospice and does not want any more medical treatment at this time. Objective Data Objective Data Vital Signs: Vital Signs Temp Pulse Resp BP Pulse Ox O2 Del Method O2 Flow Rate 98.5 F 108 H 26 H 96/75 94 Nasal Cannula 2 04/03/22 12:00 04/03/22 14:00 04/03/22 14:00 04/03/22 14:00 04/03/22 14:00 04/03/22 14:00 04/03/22 14:00 FiO2 97 04/02/22 11:03 Oxygen Flow Rate (L/min) 2 Oxygen Delivery Method Nasal Cannula Weight: 108 lb 0.424 oz Body Mass Index (BMI) 17.3 Intake & Output: Intake and Output for Last 24 Hours 04/01/22 04/02/22 04/03/22 23:59 23:59 23:59 Intake Total 1774.66 / 1779.66 1921.19 / 2056.84 1707.9433 / 1707.9433 Output Total 600 / 600 150 / 150 Balance 1174.66 / 1179.66 1771.19 / 1906.84 1707.9433 / 1707.9433 Lab / Micro Data Result Diagrams: 04/03/22 03:35 04/03/22 03:35 Labs: Laboratory Results - last 24 hr 03/31/22 09:18: Diff Path Review Reviewed 04/02/22 13:57: Crossmatch See Detail 04/03/22 03:35: PT 37.9 H, INR 3.9 04/03/22 03:35: WBC 5.3, RBC 2.87 L, Hgb 8.6 L, Hct 26.1 L, MCV 90.9, MCH 30.0, MCHC 33.0, RDW Std Deviation 51.2 H, RDW Coeff of Uriel 15.7 H, Plt Count 83 L, MPV 10.3, Immature Gran % (Auto) 0.400, Neut % (Auto) 82.5 H, Lymph % (Auto) 9.4 L, [place] % (Auto) 7.5, Eos % (Auto) 0.0, Baso % (Auto) 0.2, Absolute Neuts (auto) 4.4, Absolute Lymphs (auto) 0.50 L, Nucleated RBC % 0, Platelet Estimate MOD DEC, Anisocytosis 1+ 04/03/22 03:35: Sodium 143, Potassium 3.0 L, Chloride 112 H, Carbon Dioxide 24.0, Anion Gap 7, BUN 19 H, Creatinine 0.86, Estim Creat Clear Calc 37.35, Est GFR (MDRD) Af Amer 82, Est GFR (MDRD) Non-Af 68, BUN/Creatinine Ratio 22.2 H, Glucose 143 H, Calcium 7.6 L, Total Bilirubin 0.90, AST 9 L, ALT 7 L, Alkaline Phosphatase 74, Total Protein 5.3 L, Albumin 2.2 L, Globulin 3.1, Albumin/Globulin Ratio 0.7 L Micro: Microbiology 03/31/22 18:10 Stool Stool Occult Blood (TAMEKA) - Final Occult Blood Positive Radiography Diagnostic Testing: Radiology Impression Echocardiogram 04/02/22 09:52 Interpretation Summary The study was technically difficult. Left ventricular systolic function is normal. The estimated ejection fraction is 60 %. Moderately dilated right ventricle. Moderate global right ventricular systolic dysfunction. The left atrium is mildly enlarged. The right atrium is mildly enlarged. Stable appearing mechanical mitral valve apparatus. The mitral valve chordae are thickened and/or calcified. Trivial transvalvular insufficiency of the mitral valve. Moderately severe (3+) tricuspid valve insufficiency. Moderate focal aortic valve calcification. Mild (1+) pulmonic valve insufficiency. Right ventricular systolic pressure estimated to be 107 mmHg. Severe pulmonary hypertension. Unable to assess diastolic dysfunction. ICD or pacer leads identified within the right atrium ICD or pacer leads identified within the right ventricle. Ordering Physician: Jaja Pereira Referring Physician: Kodak Muñoz Performed By: Ginny Valenzuela, SCOTT, RVT Rhythm Strip Rhythm Strip: A-fib Rate: 120 Physical Exam Narrative Patient on vasopressor. Hospice care was called and patient family selected home hospice care. Patient is being discharged home. Patient seen and examined on the day of discharge, please see progress note of the same date. Assessment & Plan Assessment/Plan (1) Cirrhosis: PLAN: Cirrhosis secondary to [place] in the setting of recurrent GI bleeding. Patient will undergo hospice. (2) Acute GI bleeding: PLAN: Hemoglobin seems to be stable at this time however she still remains on levo. Charges/Coding Visit Charges Inpatient E&M: 86053 Subs Hosp L1
--- NOTE | 2022-04-03 10:15 | NURSING ---
Patient told this nurse that she doesn't want the colonoscopy done. She stated that she wants to go home with her cats and family and to at peace at home. She is afraid that if she has the colonoscopy that she will in the hospital and that's not what she wants. She then said I am tired and I want to be left alone. I don't want any of this anymore. Spoke to Dr. Wise and he went to the patient's room with this nurse and talked to the patient. She stated she wants to go home with hospice. Dr. Wise ordered a hospice consult. The patient requested that her son, Gildardo, be called and ask him to come in to talk to her about her decision. Dr. Gomes, Dr. Brownlee and Dr. Sheets notified of patient's wishes and hospice consult.
--- NOTE | 2022-04-03 10:46 | CASEMGMT ---
SW received a call from patient's RN. Patient would like to go home on Hospice. SW met with patient and confirmed that is her plan. SW explained how the process works and that someone from Hospice should be calling her to arrange a meeting. Patient's son is on his way to [facility]. Patient verbalized understanding. SW notified RN. SW called Hospice and made referral. SW also faxed information. Yaz JIMENEZ
[2022-04-03] MEDS: Midodrine HCl 5 MG Tablet 10 MG PO (11:13)
[2022-04-03] MEDS: CHLORHEXIDINE GLUC 2% CLOTH 1 EACH TOWELETTE TOPICAL (11:16)
--- NOTE | 2022-04-03 11:23 | DCINST_ITS ---
Discharge Instructions Diet Discharge Diet: No restrictions Activity Weight Bearing Status: Weight bearing as tolerated Dressing / Incision Call your doctor if you observe: - (Patient signed home hospice.) Follow Up Care Test Results: Test results from this visit will be discussed in further detail at your follow- up appointment, if applicable. Discharge Plan Admission Admit Date/Time: 03/31/22 10:42 Primary Reason for Your Visit: Hemorrhagic shock from GI bleed on vasopressor, acute hypoxic resp FAILURE Attending Provider: Edilson Wise Primary Care Provider: Kodak Muñoz Consulting Providers: Martin Galvan ; Bry Gomes ; Steve Stark ; Marci Ritter ENDOSCOPY SPECIALTY TECHNICIAN ; Juliet Cristina ; Jaja Pereira ; Danna Gale ; Ge Vera ; Nicky Coffey ; Deysi Meneses ; Cherie Patricia ENDOSCOPY SPECIALTY TECHNICIAN Discharge Orders/Prescriptions Prescriptions: New midodrine 10 mg tablet 10 mg PO TID Qty: 90 0RF Rx Instructions: do not give last dose of day after 6PM or within 4 hrs of bedtime pantoprazole [Protonix] 40 mg tablet,delayed release (DR/EC) 40 mg PO BID Qty: 60 1RF Rx Instructions: advised TWICE DAILY FOR 2 WEEKS THEN ONCE DAILY Continued ferrous sulfate 325 MG tablet 650 mg PO QHS Label Comments: Iron supplement folic acid 1 MG tablet 1 mg PO DAILY@0800 Label Comments: Supplement cyanocobalamin (vitamin B-12) 2,500 MCG tablet 2,500 mcg PO DAILY Label Comments: Supplement magnesium 250 MG tablet 250 mg PO DAILY cholecalciferol (vitamin D3) 1,000 UNIT capsule 1,000 unit PO DAILY venlafaxine 37.5 mg tablet 37.5 mg PO BID pantoprazole 40 MG tablet 40 mg PO BID 30 Days Qty: 60 0RF hydrocodone-acetaminophen 5-325 mg tablet 0.5 - 1 tab PO Q8H PRN (Reason: Pain) Label Comments: take 1 tablet by mouth every 8 hours if needed for pain levothyroxine 100 mcg tablet 100 mcg PO DAILY Label Comments: take 1 tablet by mouth once daily potassium chloride 20 mEq tablet,ER particles/crystals 20 meq PO BID Qty: 180 3RF Held warfarin 1 mg tablet 2 mg PO .COMPLEX Qty: 180 3RF Hold Instructions: Hold while INR is more than 3.0 Protocol: Dose Management Condition: Sunday Dose/Route: 1 mg Instruction: 1 x 1 mg tablet Condition: Sunday Dose/Route: 2 mg Instruction: 1 x 2 mg tablet Condition: Sunday Dose/Route: 2 mg Instruction: 1 x 2 mg tablet Condition: Sunday Dose/Route: 2 mg Instruction: 1 x 2 mg tablet Condition: Dose/Route: 2 mg Instruction: 1 x 2 mg tablet Condition: Sunday Dose/Route: 2 mg Instruction: 1 x 2 mg tablet Condition: Sunday Dose/Route: 1 mg Instruction: 1 x 1 mg tablet Protocol Text: Adjustment Start Date: 03/30/22 INR Value: 3.5 INR Date: 03/30/22 Recheck Date: 04/13/22 Rx Instructions: 2 tablets (4mg) on , 1 tablets with a 2 mg tablet all other days of the week OR as DIRECTED; DOSE CHANGES OFTEN metoprolol succinate 25 mg tablet extended release 24 hr 12.5 mg PO BID 90 Days Qty: 90 3RF Hold Instructions: Hold while BP is less than 100 mmHg furosemide 40 mg tablet 40 mg PO BID Qty: 180 3RF Hold Instructions: Hold while BP is less than 110 mmHg warfarin 2 mg tablet 2 mg PO .COMPLEX Qty: 180 3RF Hold Instructions: Hold while INR is more than 3.0 Protocol: Dose Management Condition: Sunday Dose/Route: 1 mg Instruction: 1 x 1 mg tablet Condition: Sunday Dose/Route: 2 mg Instruction: 1 x 2 mg tablet Condition: Sunday Dose/Route: 2 mg Instruction: 1 x 2 mg tablet Condition: Sunday Dose/Route: 2 mg Instruction: 1 x 2 mg tablet Condition: Dose/Route: 2 mg Instruction: 1 x 2 mg tablet Condition: Sunday Dose/Route: 2 mg Instruction: 1 x 2 mg tablet Condition: Sunday Dose/Route: 1 mg Instruction: 1 x 1 mg tablet Protocol Text: Adjustment Start Date: 03/30/22 INR Value: 3.5 INR Date: 03/30/22 Recheck Date: 04/13/22 Rx Instructions: 2 mg PO 2 tablets on (4mg), take with a 1 mg tablet to = 3mg all other days of the week OR as directed: DOSE CHANGES OFTEN; Discontinued darbepoetin peace in polysorbat 200 mcg/0.4 mL syringe 0.4 ml IM TH Referrals / Follow Up: Kodak Muñoz MD [Primary Care Provider] - Disposition Disposition (needs filled in before D/C Order can be placed): Hospice in Home
--- NOTE | 2022-04-03 11:25 | CASEMGMT ---
STACI received a call from Mary Jane with Hospice and she said they will be meeting with patient and her son today at 130. STACI called ICU and notified [employer] [employer] who will notify RN. Yaz JIMENEZ
[2022-04-03 13:28] LABS: Pathologist Review Reviewed
--- NOTE | 2022-04-03 14:30 | DS.PCM_ITS ---
Providers Date of Admission: 03/31/22 Date of Discharge: 04/03/22 Primary Care Physician: Dr. Kodak Muñoz MD Consultations 03/31/22 11:41 Consult: Gastroenterology Routine Consulting Provider: [facility] Reason for Consult: GI bleed EMERGENT Consult: Yes Notified: Yes Date Notified: 03/31/22 Time Notified: 11:41 Method of Notification: Verbal 03/31/22 11:43 Consult: Blankmaker / Pulmonary Medicine Routine Consulting Provider: Pulmonary [facility] Reason for Consult: Severe anemai EMERGENT Consult: No Notified: Yes Date Notified: 03/31/22 Time Notified: 11:43 Method of Notification: Verbal 04/01/22 20:38 Consult: Cardiology Routine Consulting Provider: Juliet Cristina Reason for Consult: Afib with RVR; SVT EMERGENT Consult: No Notified: Yes Date Notified: 04/01/22 Time Notified: 20:39 Method of Notification: Verbal Method of Consult:: In-Person 04/03/22 10:13 Consult: Hospice / Palliative Care Routine Consulting Provider: [facility] Reason for Consult: hypotension, GI Bleed EMERGENT Consult: No Notified: Yes Date Notified: 04/03/22 Time Notified: 10:13 Method of Notification: Answering Service Reason For Visit: hypotensive Diagnosis Discharge Diagnosis (1) Acute GI bleeding: Status: Acute Code(s): K92.2 - Gastrointestinal hemorrhage, unspecified Plan 81-year-old female with past medical history of mechanical mitral valve replacement, history of recurrent GI bleed comes in with severe anemia with hemoglobin 4.8. 1. Acute hypoxic respiratory failure secondary to probable aspiration pneumonia/right lower lobe pneumonia Patient had large emesis on 04/01/22 Chest x-ray this morning showed right lower lobe pneumonia CTA of the chest today shows multifocal pneumonia with probable posterior right lower empyema Was started on IV ceftriaxone; switch to IV Zosyn On bronchodilator Patient was on Airvo, currently on 2 L of oxygen to keep pulse ox above 90% 2. Hemorrhagic shock due to GI bleed on vasopressor. Coagulopathy as patient on warfarin for history of A. fib and mechanical mitral valve. Patient was hypotensive on admission, blood pressures have remained relatively soft Blood pressure likely worsened with arrhythmia Currently on Levophed via peripheral line Patient initially refused central line; agreeable to PICC line 04/03: Patient not eager to continue ICU care, refusing for colonoscopy. The patient, power of civil litigation attorney for [facility], her youngest son Mr. Ewing agreed for palliative/hospice care. Patient is getting FFP. INR supratherapeutic. Hemoglobin 8.6. CBC trend reviewed and platelet count remain similar. 3. Arrhythmia, A. fib with RVR/recent SVT, heart rate is better controlled Was on Cardizem drip, discontinued due to hypotension Cardiology consulted and reviewed. Patient had digoxin and beta-lion. Currently on amiodarone drip. Echo is pending 4. Acute on chronic severe anemia secondary to acute GI bleed Patient with history of recurrent GI bleed INR was supratherapeutic on admission; home Coumadin on hold Admission hemoglobin was 4.8. Hemoglobin now is 9.8 Status 3 units of packed RBC (03/31 and 04/01) Continue to monitor H&H every 6h. Blankmaker and GI following 5. Acute on chronic GI bleed, history of duodenal ectasia and diverticulosis, in a patient with underlying cirrhosis EGD on 04/01/22 showed 2 bleeding angiodysplastic lesions that were treated with heater probe Continue IV PPI BID 6. Pancytopenia in the setting of chronic liver disease/PAN cirrhosis -chronic leukopenia and thrombocytopenia Patient's current WBC count and platelets remain about the same continue to monitor 7. Supratherapeutic INR, status post mechanical valve replacement, was on chronic home Coumadin; been off since admission Status post 1 unit of FFP (03/31) INR is 4.6, currently being transfused 2 units of FFPs 04/03 INR continues to be high, 3.9 8. CKD stage IIIa, creatinine is 1.19 from 1.40 04/03: Patient has hypokalemia and hypophosphatemia, getting K-Phos. Magnesium normal 9. Hypothyroidism, continue on synthroid 10. Anxiety and depression, continue Venlafaxine 11. Severe protein-calorie malnutrition, national insurance officer consulted, continue on supplements 12. DVT PPx- SCDs 13. GI PPx- On PPI BID Total time of the visit including total time spent in counseling or coordination of care, (more than 50% of the total time, spent in obtaining medical information from nurses and other ancillary care providers,explaining to the patient about labs, imaging, diagnosis and management of active complex medical conditions), discussion with patient and her son with regard to palliative and hospice care, discussion with consultants, review of labs and imaging is 45 minutes. Hospice care consult ordered e Medications at Discharge Home Medications ferrous sulfate 325 mg (65 mg iron) tablet 650 mg PO QHS SUPPLEMENT 04/02/15 folic acid 1 mg tablet 1 mg PO DAILY@0800 supplement 04/30/15 cyanocobalamin (vitamin B-12) 2,500 mcg tablet 2,500 mcg PO DAILY vitamin 06/10/16 magnesium 250 mg tablet 250 mg PO DAILY supplement 05/24/17 cholecalciferol (vitamin D3) 25 mcg (1,000 unit) capsule 1,000 unit PO DAILY SUPPLEMENT 04/07/19 pantoprazole 40 mg tablet,delayed release 40 mg PO BID gerd 30 days #60 tabs 06/21/20 hydrocodone-acetaminophen 5-325mg 5mg-325mg 0.5 - 1 tab PO Q8H PRN Pain 01/19/21 levothyroxine 100 mcg tablet 100 mcg PO DAILY THYROID 01/19/21 warfarin 1 mg tablet 2 mg PO .COMPLEX 2nd rx for dose clarification #180 tabs 01/27/21 venlafaxine 37.5 mg tablet 37.5 mg PO BID DEPRESSION 05/03/21 metoprolol succinate 25 mg tablet,extended release 24 hr 12.5 mg PO BID 90 days #90 tabs 09/08/21 furosemide 40 mg tablet 40 mg PO BID #180 tabs 12/21/21 warfarin 2 mg tablet 2 mg PO .COMPLEX 2nd RX for dose clarification #180 tabs 03/06/22 potassium chloride 20 mEq tablet,extended release(part/cryst) 20 meq PO BID SUPPLEMENT #180 tabs 03/15/22 midodrine 10 mg tablet 10 mg PO TID #90 tabs 04/03/22 pantoprazole 40 mg tablet,delayed release (Protonix) 40 mg PO BID #60 tabs 04/03/22 Hospital Course Summary of Care Provided Hospital Course: 81-year-old female with past medical history of mechanical mitral valve replacement, history of recurrent GI bleed comes in with severe anemia with hemoglobin 4.8.? 1. Acute hypoxic respiratory failure secondary to probable aspiration pneumonia/right lower lobe pneumonia Patient had large emesis on 04/01/22 Chest x-ray this morning showed right lower lobe pneumonia CTA of the chest today shows multifocal pneumonia with probable posterior right lower empyema Was started on IV ceftriaxone; switch to IV Zosyn On bronchodilator Patient was on Airvo, currently on 2 L of oxygen to keep pulse ox above 90% 2.? Hemorrhagic shock due to GI bleed on vasopressor.? Coagulopathy as patient on warfarin for history of A. fib and mechanical mitral valve. Patient was hypotensive on admission, blood pressures have remained relatively soft Blood pressure likely worsened with arrhythmia Currently on Levophed via peripheral line Patient initially refused central line; agreeable to PICC line 04/03: Patient not eager to continue ICU care, refusing for colonoscopy.? The patient, power of civil litigation attorney for [facility], her youngest son Mr. Ewing agreed for palliative/hospice care.? Patient is getting FFP.? INR supratherapeutic.? Hemoglobin 8.6.? CBC trend reviewed and platelet count remain similar. 3.? Arrhythmia, A. fib with RVR/recent SVT, heart rate is better controlled Was on Cardizem drip, discontinued due to hypotension Cardiology consulted and reviewed.? Patient had digoxin and beta-lion.? Currently on amiodarone drip. Echo is pending 4.? Acute on chronic severe anemia secondary to acute GI bleed Patient with history of recurrent GI bleed INR was? supratherapeutic on admission; home Coumadin on hold Admission hemoglobin was 4.8.? Hemoglobin now is 9.8 Status 3 units of packed RBC (03/31 and 04/01) Continue to monitor H&H every 6h. Blankmaker and GI following 5. Acute on chronic GI bleed, history of duodenal ectasia and diverticulosis, in a patient with underlying cirrhosis EGD on 04/01/22 showed 2 bleeding angiodysplastic lesions that were treated with heater probe Continue IV PPI BID 6. Pancytopenia in the setting of chronic liver disease/PAN cirrhosis -chronic leukopenia and thrombocytopenia Patient's current WBC count and platelets remain about the same ?continue to monitor 7. Supratherapeutic INR, status post mechanical valve replacement, was on chronic home Coumadin; been off since admission Status post 1 unit of FFP (03/31) INR is 4.6, currently being transfused 2 units of FFPs 04/03 INR continues to be high, 3.9 8. CKD stage IIIa, creatinine is 1.19 from 1.40 04/03: Patient has hypokalemia and hypophosphatemia, getting K-Phos.? Magnesium normal 9. Hypothyroidism, continue on synthroid 10. Anxiety and depression, continue Venlafaxine 11. Severe protein-calorie malnutrition, national insurance officer consulted, continue on supplements 12. DVT PPx- SCDs 13. GI PPx- On PPI BID Discharge medication reconciliation done. Patient does not need antibiotic. Advised to continue pantoprazole 40 mg twice daily and midodrine 10 mg 3 times daily but hospice can modify the discharge medication as per patient's comfort measures. Discharge follow-up instructions completed. Discharge process discussed with the patient and patient's son, Mr. Gregorio and all questions were answered to patient's satisfaction. Total time spent, exact 35 minutes on discharge meds reconciliation, examination, coordination of care with nurses and ancillary staff, review of imaging and blood test and discussion with the patient on follow-up instructions. Physical Exam Narrative Patient on vasopressor. I talked to the patient and his son Mr. Ewing. Hospice care was called and patient family selected home hospice care. Patient is being discharged home. Patient seen and examined on the day of discharge, please see progress note of the same date. Medical Records Data Medical Nutrition Assessment Dietitian: Malnutrition Criteria Met Start: 03/31/22 13:08 Freq: Status: Active Protocol: Document 04/03/22 09:33 JAYSHREE (Rec: 04/03/22 09:33 JAYSHREE [id number]) Nutrition Malnutrition Evidence of Malnutrition Exists Yes Malnutrition (severe): Chronic Evidenced By Suboptimal Energy Intake ( Severe),Weight Loss (Severe) Intake Problem Inadequate Oral Intake Etiology related to altered GI function Signs/Symptoms as evidenced by NPO/clear liquid diet x day 4 today Status Active Problem Clinical Problem Chronic Disease or Condition Related Malnutrition Etiology Severe protein-calorie malnutrition in the context of chronic disease related to altered GI function and inadequate oral intake Signs/Symptoms as evidenced by weight loss~11 % in less than 2 months [employer], BMI 17.3 at time of adm, muscle/fat wasting in the face , clavicle, arms and legs, currently NPO and PO meeting less than 50% estimated nutrition needs x past 1 month Status Active Problem Recommendation Dietitian Recommendations/Changes Recommend advance PO diet as medically able to Transitional with goal of regular diet; carb-controlled as needed. Ensure clear as diet advanced from NPO. Glucerna shake as able for weight gain and nutrient repletion. Consider parenteral nutrition support if unable to advance diet in next 24 hours especially given signs/ symptoms of severe malnutrition. Weight / BMI Weight Weight: 108 lb 0.424 oz Body Mass Index (BMI) 17.3 ABG / Lab / Microbiology Data Result Diagrams: 04/03/22 03:35 04/03/22 03:35 Laboratory: Laboratory Results - last 24 hr 03/31/22 09:18: Diff Path Review Reviewed 03/31/22 09:18: Haptoglobin 37 L 04/02/22 13:57: Blood Type A POSITIVE, Antibody Screen NEGATIVE, Crossmatch See Detail 04/03/22 03:35: PT 37.9 H, INR 3.9 04/03/22 03:35: WBC 5.3, RBC 2.87 L, Hgb 8.6 L, Hct 26.1 L, MCV 90.9, MCH 30.0, MCHC 33.0, RDW Std Deviation 51.2 H, RDW Coeff of Uriel 15.7 H, Plt Count 83 L, MPV 10.3, Immature Gran % (Auto) 0.400, Neut % (Auto) 82.5 H, Lymph % (Auto) 9.4 L, [place] % (Auto) 7.5, Eos % (Auto) 0.0, Baso % (Auto) 0.2, Absolute Neuts (auto) 4.4, Absolute Lymphs (auto) 0.50 L, Nucleated RBC % 0, Platelet Estimate MOD DEC, Anisocytosis 1+ 04/03/22 03:35: Sodium 143, Potassium 3.0 L, Chloride 112 H, Carbon Dioxide 24.0, Anion Gap 7, BUN 19 H, Creatinine 0.86, Estim Creat Clear Calc 37.35, Est GFR (MDRD) Af Amer 82, Est GFR (MDRD) Non-Af 68, BUN/Creatinine Ratio 22.2 H, Glucose 143 H, Calcium 7.6 L, Total Bilirubin 0.90, AST 9 L, ALT 7 L, Alkaline Phosphatase 74, Total Protein 5.3 L, Albumin 2.2 L, Globulin 3.1, Albumin/Globulin Ratio 0.7 L Microbiology: Microbiology 03/31/22 18:10 Stool Stool Occult Blood (TAMEKA) - Final Occult Blood Positive Radiography Diagnostic Testing: Radiology Impression Echocardiogram 04/02/22 09:52 Interpretation Summary The study was technically difficult. Left ventricular systolic function is normal. The estimated ejection fraction is 60 %. Moderately dilated right ventricle. Moderate global right ventricular systolic dysfunction. The left atrium is mildly enlarged. The right atrium is mildly enlarged. Stable appearing mechanical mitral valve apparatus. The mitral valve chordae are thickened and/or calcified. Trivial transvalvular insufficiency of the mitral valve. Moderately severe (3+) tricuspid valve insufficiency. Moderate focal aortic valve calcification. Mild (1+) pulmonic valve insufficiency. Right ventricular systolic pressure estimated to be 107 mmHg. Severe pulmonary hypertension. Unable to assess diastolic dysfunction. ICD or pacer leads identified within the right atrium ICD or pacer leads identified within the right ventricle. Ordering Physician: Jaja Pereira Referring Physician: Kodak Muñoz Performed By: Ginny Valenzuela, SCOTT, RVT Chest X-Ray 04/02/22 12:10 IMPRESSION: There has been no change since the prior study. Electronically Signed: Mahesh Love MD at 14:37 EDT Reading Location ID and State: [facility] / [place] , Service support , ADDENDUM: 04/02/22 [id number] IMPRESSION: undefined D/C Instructions Discharge Diet: No restrictions Weight Bearing Status: Weight bearing as tolerated Call your doctor if you observe: - (Patient signed home hospice.) Meaningful Use Info Meaningful Use Diagnoses (Choose all that apply): None applicable Discharge Plan Admission Admit Date/Time: 03/31/22 10:42 Primary Reason for Your Visit: Hemorrhagic shock from GI bleed on vasopressor, acute hypoxic resp FAILURE Attending Provider: Edilson Wise Primary Care Provider: Kodak Muñoz Consulting Providers: Martin Galvan ; Bry Gomes ; Steve Stark ; Marci Ritter BURLAP BAG SEWER ; Juliet Cristina ; Jaja Pereira ; Danna Gale ; Ge Vera ; Nicky Coffey ; Deysi Meneses ; Cherie Patricia BURLAP BAG SEWER Discharge Orders/Prescriptions Prescriptions: New midodrine 10 mg tablet 10 mg PO TID Qty: 90 0RF Rx Instructions: do not give last dose of day after 6PM or within 4 hrs of bedtime pantoprazole [Protonix] 40 mg tablet,delayed release (DR/EC) 40 mg PO BID Qty: 60 1RF Rx Instructions: advised TWICE DAILY FOR 2 WEEKS THEN ONCE DAILY Continued ferrous sulfate 325 MG tablet 650 mg PO QHS Label Comments: Iron supplement folic acid 1 MG tablet 1 mg PO DAILY@0800 Label Comments: Supplement cyanocobalamin (vitamin B-12) 2,500 MCG tablet 2,500 mcg PO DAILY Label Comments: Supplement magnesium 250 MG tablet 250 mg PO DAILY cholecalciferol (vitamin D3) 1,000 UNIT capsule 1,000 unit PO DAILY venlafaxine 37.5 mg tablet 37.5 mg PO BID pantoprazole 40 MG tablet 40 mg PO BID 30 Days Qty: 60 0RF hydrocodone-acetaminophen 5-325 mg tablet 0.5 - 1 tab PO Q8H PRN (Reason: Pain) Label Comments: take 1 tablet by mouth every 8 hours if needed for pain levothyroxine 100 mcg tablet 100 mcg PO DAILY Label Comments: take 1 tablet by mouth once daily potassium chloride 20 mEq tablet,ER particles/crystals 20 meq PO BID Qty: 180 3RF Held warfarin 1 mg tablet 2 mg PO .COMPLEX Qty: 180 3RF Hold Instructions: Hold while INR is more than 3.0 Protocol: Dose Management Condition: Sunday Dose/Route: 1 mg Instruction: 1 x 1 mg tablet Condition: Sunday Dose/Route: 2 mg Instruction: 1 x 2 mg tablet Condition: Sunday Dose/Route: 2 mg Instruction: 1 x 2 mg tablet Condition: Sunday Dose/Route: 2 mg Instruction: 1 x 2 mg tablet Condition: Dose/Route: 2 mg Instruction: 1 x 2 mg tablet Condition: Sunday Dose/Route: 2 mg Instruction: 1 x 2 mg tablet Condition: Sunday Dose/Route: 1 mg Instruction: 1 x 1 mg tablet Protocol Text: Adjustment Start Date: 03/30/22 INR Value: 3.5 INR Date: 03/30/22 Recheck Date: 04/13/22 Rx Instructions: 2 tablets (4mg) on , 1 tablets with a 2 mg tablet all other days of the week OR as DIRECTED; DOSE CHANGES OFTEN metoprolol succinate 25 mg tablet extended release 24 hr 12.5 mg PO BID 90 Days Qty: 90 3RF Hold Instructions: Hold while BP is less than 100 mmHg furosemide 40 mg tablet 40 mg PO BID Qty: 180 3RF Hold Instructions: Hold while BP is less than 110 mmHg warfarin 2 mg tablet 2 mg PO .COMPLEX Qty: 180 3RF Hold Instructions: Hold while INR is more than 3.0 Protocol: Dose Management Condition: Sunday Dose/Route: 1 mg Instruction: 1 x 1 mg tablet Condition: Sunday Dose/Route: 2 mg Instruction: 1 x 2 mg tablet Condition: Sunday Dose/Route: 2 mg Instruction: 1 x 2 mg tablet Condition: Sunday Dose/Route: 2 mg Instruction: 1 x 2 mg tablet Condition: Dose/Route: 2 mg Instruction: 1 x 2 mg tablet Condition: Sunday Dose/Route: 2 mg Instruction: 1 x 2 mg tablet Condition: Sunday Dose/Route: 1 mg Instruction: 1 x 1 mg tablet Protocol Text: Adjustment Start Date: 03/30/22 INR Value: 3.5 INR Date: 03/30/22 Recheck Date: 04/13/22 Rx Instructions: 2 mg PO 2 tablets on (4mg), take with a 1 mg tablet to = 3mg all other days of the week OR as directed: DOSE CHANGES OFTEN; Discontinued darbepoetin peace in polysorbat 200 mcg/0.4 mL syringe 0.4 ml IM TH Referrals / Follow Up: Kodak Muñoz MD [Primary Care Provider] - Disposition Disposition (needs filled in before D/C Order can be placed): Hospice in Home Charges/Coding Addendum Addendum: Please cancel the billing charge of progress note of same date, 04/03/2022 Visit Charges Inpatient E&M: 61093 Disch Hosp
--- NOTE | 2022-04-03 14:49 | CASEMGMT ---
Patient signed Hospice papers and she would like to go home today. STACI notified physician patient signed with Hospice and wants to be discharged. STACI faxed patient's discharge instructions to Hospice. STACI spoke with [place] at Hospice and let her know patient will be leaving to go home soon. Plan: d/c home with [facility]. Yaz JIMENEZ
--- NOTE | 2022-04-03 15:07 | CASEMGMT ---
STACI called Juhi Alva at Hospice and let her know patient is leaving the hospital right now. She thanked STACI for the update. Yaz JIMENEZ
[2022-04-04 08:57] LABS: Pathologist Review Reviewed
== END 2022-04-03 15:10 | disposition hospice, home (50) | DRG 377 ==
LOC: ED 10:45 → ICU 11:03
PROVIDERS: Hospitalist; Internal Medicine Critical Care Medicine; Internal Medicine Gastroenterology; Admitting Provider Internal Medicine; Emergency Provider Emergency Medicine; PCP Internal Medicine; Visit Provider Internal Medicine
PROC: 0DJ08ZZ Inspection of Upper Intestinal Tract, Via Natural or Artificial Opening Endoscopic (ICD-10-PCS; CPT 43235; principal; 2022-04-01 09:30)
DX: K31.811 Angiodysplasia of stomach and duodenum with bleeding (principal); J69.0 Pneumonitis due to inhalation of food and vomit; J96.21 Acute and chronic respiratory failure with hypoxia; R57.8 Other shock; E43 Unspecified severe protein-calorie malnutrition; D61.818 Other pancytopenia; D62 Acute posthemorrhagic anemia; D68.9 Coagulation defect, unspecified; I47.1 Supraventricular tachycardia; I48.20 Chronic atrial fibrillation, unspecified; J96.11 Chronic respiratory failure with hypoxia; I50.32 Chronic diastolic (congestive) heart failure; J44.0 Chronic obstructive pulmonary disease with (acute) lower respiratory infection; Z68.1 Body mass index [BMI] 19.9 or less, adult; E83.39 Other disorders of phosphorus metabolism; I27.29 Other secondary pulmonary hypertension; I48.91 Unspecified atrial fibrillation; E11.22 Type 2 diabetes mellitus with diabetic chronic kidney disease; E11.65 Type 2 diabetes mellitus with hyperglycemia; N18.31 Chronic kidney disease, stage 3a; D69.6 Thrombocytopenia, unspecified; D63.1 Anemia in chronic kidney disease; I95.9 Hypotension, unspecified; K57.30 Diverticulosis of large intestine without perforation or abscess without bleeding; I25.10 Atherosclerotic heart disease of native coronary artery without angina pectoris; F17.210 Nicotine dependence, cigarettes, uncomplicated; E78.5 Hyperlipidemia, unspecified; E03.9 Hypothyroidism, unspecified; K44.9 Diaphragmatic hernia without obstruction or gangrene; K31.7 Polyp of stomach and duodenum; E87.6 Hypokalemia; F41.9 Anxiety disorder, unspecified; K75.81 Nonalcoholic steatohepatitis (NASH); Z79.01 Long term (current) use of 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; Z95.0 Presence of cardiac pacemaker; F32.A Depression, unspecified; Z51.5 Encounter for palliative care; Z95.2 Presence of prosthetic heart valve
CPT/HCPCS: 36569; 36600; 71045; 71275; 80053; 82274; 82728; 82803; 83010; 83540; 83550; 83615; 83735; 84100; 85014; 85018; 85025; 85045; 85379; 85384; 85610; 85730; 86850; 86900; 86901; 86902; 86920; 86922; 88305; 93005; 93306; 94640; 94660; 97802; 97803; 99251; 99284; 99406; J7030; J7040; J7050; J7120; P9016; P9017; Q9967; A4216; G0463; J0153

== ENCOUNTER → 2022-03-31 | Outpatient (CLI) | payer SELFPAY ==
[2022-03-31 08:24] VITALS: BP 69/27; PULSE 70; RESP 16; TEMP 36; O2SAT 99; BMI 16.8
[2022-03-31] MEDS: Acetaminophen 325 MG Tablet 650 MG PO (08:24)
[2022-03-31] MEDS: 0.9% NaCl Peripheral Flush Adult/Peds IV (08:24)
== END | disposition home or self-care (01) ==
LOC: MEDOUTP 08:05
PROVIDERS: PCP Internal Medicine; Referring Provider Internal Medicine Hematology & Oncology; Visit Provider Internal Medicine Hematology & Oncology
DX: Z51.89 Encounter for other specified aftercare (principal); N18.9 Chronic kidney disease, unspecified; K92.2 Gastrointestinal hemorrhage, unspecified
CPT/HCPCS: 86850; 86900; 86901; 86920; 86922; J7040; A4216

== ENCOUNTER 2022-04-11 08:33 | Outpatient (RCR) | payer SELFPAY ==
[2022-03-12 01:57] VITALS: BMI 20.8
[2022-03-16 10:51] LABS: International Normalized Ratio 2.2; Prothrombin Time (Protime)PT. 24.5 SECONDS (11.7-14.9)
[2022-03-30 11:46] LABS: International Normalized Ratio 3.5; Prothrombin Time (Protime)PT. 34.9 SECONDS (11.7-14.9)
[2022-04-11 09:24] LABS: International Normalized Ratio 1.3; Prothrombin Time (Protime)PT. 15.9 SECONDS (11.7-14.9)
== END 2022-04-11 18:00 | disposition home or self-care (01) ==
LOC: LAB 08:33
PROVIDERS: Family Provider Internal Medicine; PCP Internal Medicine; Referring Provider Internal Medicine Cardiovascular Disease; Visit Provider Internal Medicine Cardiovascular Disease
DX: I48.11 Longstanding persistent atrial fibrillation (principal); Z95.2 Presence of prosthetic heart valve; Z79.01 Long term (current) use of 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
CPT/HCPCS: 36415; 85610

== ENCOUNTER → 2022-04-25 | Outpatient (CLI) | payer SELFPAY ==
[2022-04-25] MEDS: Acetaminophen 325 MG Tablet 650 MG PO (08:25)
[2022-04-25 08:36] VITALS: BP 66/46; PULSE 70; RESP 16; TEMP 35.9; O2SAT 91; BMI 17.2
[2022-04-25 08:49] VITALS: BP 82/54; PULSE 70; RESP 16; TEMP 35.8; O2SAT 94
[2022-04-25 09:49] VITALS: BP 72/36; PULSE 72; RESP 16; TEMP 35.9; O2SAT 97
[2022-04-25 10:24] VITALS: BP 95/43; PULSE 71; RESP 16; TEMP 36.1; O2SAT 97
== END | disposition home or self-care (01) ==
LOC: MEDOUTP 08:04
PROVIDERS: PCP Internal Medicine; Referring Provider Internal Medicine Hematology & Oncology; Visit Provider Internal Medicine Hematology & Oncology
DX: Z51.89 Encounter for other specified aftercare (principal); N18.9 Chronic kidney disease, unspecified; K92.2 Gastrointestinal hemorrhage, unspecified
CPT/HCPCS: 36430; 86850; 86900; 86901; 86902; 86920; 86922; J7040; P9016; A4216

== ENCOUNTER 2022-05-04 12:12 | Outpatient (RCR) | payer SELFPAY ==
[2022-04-12 22:20] VITALS: BMI 20.8
[2022-04-13 10:59] LABS: International Normalized Ratio 1.2; Prothrombin Time (Protime)PT. 15.3 SECONDS (11.7-14.9)
[2022-04-18 10:33] LABS: International Normalized Ratio 1.5; Prothrombin Time (Protime)PT. 18.1 SECONDS (11.7-14.9)
[2022-04-20 10:36] LABS: Prothrombin Time (Protime)PT. 22.1 SECONDS (11.7-14.9)
[2022-04-24 11:30] LABS: International Normalized Ratio 2.6; Prothrombin Time (Protime)PT. 27.6 SECONDS (11.7-14.9)
[2022-05-01 11:47] LABS: Prothrombin Time (Protime)PT. 39.2 SECONDS (11.7-14.9)
[2022-05-01 11:50] LABS: International Normalized Ratio 4.1
[2022-05-04 12:57] LABS: International Normalized Ratio 3.2; Prothrombin Time (Protime)PT. 32.2 SECONDS (11.7-14.9)
== END 2022-05-04 18:00 | disposition home or self-care (01) ==
LOC: LAB 12:12
PROVIDERS: Family Provider Internal Medicine; PCP Internal Medicine; Referring Provider Internal Medicine Cardiovascular Disease; Visit Provider Internal Medicine Cardiovascular Disease
DX: I48.11 Longstanding persistent atrial fibrillation (principal); Z95.2 Presence of prosthetic heart valve; Z79.01 Long term (current) use of 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
CPT/HCPCS: 36415; 85610

== ENCOUNTER → 2022-05-26 | Outpatient (CLI) | payer SELFPAY ==
[2022-05-26] VITALS (7 sets, daily range): BP systolic 73–99; BP diastolic 35–55; PULSE 94–101; RESP 16; TEMP 36.1–36.9; O2SAT 89–98
== END | disposition home or self-care (01) ==
LOC: MEDOUTP 09:11
PROVIDERS: PCP Internal Medicine; Referring Provider Internal Medicine Hematology & Oncology; Visit Provider Internal Medicine Hematology & Oncology
DX: N18.9 Chronic kidney disease, unspecified (principal); K92.2 Gastrointestinal hemorrhage, unspecified
CPT/HCPCS: 36430; 86850; 86900; 86901; 86902; 86920; 86922; J7040; P9016; A4216

== ENCOUNTER 2022-06-02 10:04 | Outpatient (RCR) | payer SELFPAY ==
[2022-05-12 19:35] VITALS: BMI 20.8
[2022-05-18 11:20] LABS: International Normalized Ratio 3.1; Prothrombin Time (Protime)PT. 31.6 SECONDS (11.7-14.9)
[2022-06-02 10:37] LABS: International Normalized Ratio 2.9; Prothrombin Time (Protime)PT. 30.4 SECONDS (11.7-14.9)
== END 2022-06-02 18:00 | disposition home or self-care (01) ==
LOC: LAB 10:04
PROVIDERS: Family Provider Internal Medicine; PCP Internal Medicine; Referring Provider Internal Medicine Cardiovascular Disease; Visit Provider Internal Medicine Cardiovascular Disease
DX: I48.11 Longstanding persistent atrial fibrillation (principal); Z95.2 Presence of prosthetic heart valve; Z79.01 Long term (current) use of 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
CPT/HCPCS: 36415; 85610

== ENCOUNTER 2022-06-29 08:24 | Outpatient (RCR) | payer SELFPAY ==
[2022-06-13 09:45] VITALS: BMI 20.8
[2022-06-16 11:24] LABS: International Normalized Ratio 2.1; Prothrombin Time (Protime)PT. 22.8 SECONDS (11.7-14.9)
[2022-06-29 09:48] LABS: International Normalized Ratio 2.2; Prothrombin Time (Protime)PT. 24.4 SECONDS (11.7-14.9)
== END 2022-07-12 18:00 | disposition home or self-care (01) ==
LOC: LAB 08:24
PROVIDERS: Family Provider Internal Medicine; PCP Internal Medicine; Referring Provider Internal Medicine Cardiovascular Disease; Visit Provider Internal Medicine Cardiovascular Disease
DX: I48.11 Longstanding persistent atrial fibrillation (principal); Z95.2 Presence of prosthetic heart valve; Z79.01 Long term (current) use of 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
CPT/HCPCS: 36415; 85610

== ENCOUNTER 2022-08-10 09:16 | Outpatient (RCR) | payer SELFPAY ==
[2022-07-12 22:37] VITALS: BMI 20.8
[2022-07-13 11:27] LABS: International Normalized Ratio 2.5; Prothrombin Time (Protime)PT. 26.9 SECONDS (11.7-14.9)
[2022-07-27 10:19] LABS: International Normalized Ratio 2.3; Prothrombin Time (Protime)PT. 24.5 SECONDS (11.7-14.9)
[2022-08-10 10:52] LABS: International Normalized Ratio 2.8; Prothrombin Time (Protime)PT. 29.4 SECONDS (11.7-14.9)
== END 2022-08-10 18:00 | disposition home or self-care (01) ==
LOC: LAB 09:16
PROVIDERS: Family Provider Internal Medicine; PCP Internal Medicine; Referring Provider Internal Medicine Cardiovascular Disease; Visit Provider Internal Medicine Cardiovascular Disease
DX: I48.11 Longstanding persistent atrial fibrillation (principal); Z95.2 Presence of prosthetic heart valve; Z79.01 Long term (current) use of 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
CPT/HCPCS: 36415; 85610

== ENCOUNTER 2022-08-31 09:59 | Inpatient (IN) | payer MEDICARE, SELFPAY ==
[2022-08-31] VITALS (20 sets, daily range): BP systolic 65–111; BP diastolic 24–79; PULSE 57–118; RESP 16–20; TEMP 35.5–36.4; O2SAT 92–100; BMI 18.7; BMI 18.5
--- NOTE | 2022-08-31 10:08 | ED.VIS.GI ---
HPI HPI - GI History of Present Illness Chief Complaint: GI Bleed Detail of Chief Complaint: Rectal bleeding x4 days Informant: patient Narrative Narrative: Patient presents with rectal bleeding x4 days. Patient states that she feels lightheaded. Patient on Coumadin for history of a mechanical mitral valve. When asked why she did not come in sooner she states that she does not like hospitals. She denies abdominal pain. Patient denies chest pain. She denies shortness of breath. Prior similar symptoms: Yes PFSH PFSH Medical History Abdominal distension Acute GI bleeding Adenomatous colon polyp Anemia Anemia in chronic kidney disease Anemia requiring transfusions Anxiety Atrial fibrillation Bilateral leg edema Black stool Cardiac pacemaker in situ Carotid bruit Cholelithiasis Chronic gastrointestinal bleeding Chronic heart failure with preserved ejection fraction (HFpEF) Cirrhosis Cirrhosis of liver with ascites CKD (chronic kidney disease) COPD (chronic obstructive pulmonary disease) Depression Depression Diverticulosis GERD (gastroesophageal reflux disease) GI bleed GI bleeding HLD (hyperlipidemia) Hypokalemia Hypotension Hypotension Iron deficiency Irregular heart beat Kidney disease nursing home current use of anticoagulant Longstanding persistent atrial fibrillation Neutropenia Nicotine dependence Non-rheumatic aortic stenosis Non-rheumatic tricuspid valve insufficiency Nonrheumatic mitral (valve) insufficiency Pancytopenia Pericardial effusion Pleural effusion PVC's (premature ventricular contractions) Secondary pulmonary hypertension Smoker Supratherapeutic INR Tachycardia-bradycardia syndrome Thrombocytopenia Thrombocytopenia Type 2 diabetes mellitus Typical atrial flutter Home Medications ferrous sulfate 325 mg (65 mg iron) tablet 650 mg PO QHS SUPPLEMENT 04/02/15 [History Last Taken 01/18/21] folic acid 1 mg tablet 1 mg PO DAILY@0800 supplement 04/30/15 [History Last Taken 01/17/21] cyanocobalamin (vitamin B-12) 2,500 mcg tablet 2,500 mcg PO DAILY vitamin 06/10/16 [History Last Taken 01/17/21] magnesium 250 mg tablet 250 mg PO DAILY supplement 05/24/17 [History Last Taken 01/17/21] cholecalciferol (vitamin D3) 25 mcg (1,000 unit) capsule 1,000 unit PO DAILY SUPPLEMENT 04/07/19 [History Last Taken 01/17/21] pantoprazole 40 mg tablet,delayed release 40 mg PO BID gerd 30 days #60 tabs 06/21/20 [Rx Last Taken 01/17/21] hydrocodone-acetaminophen 5-325mg 5mg-325mg 0.5 - 1 tab PO Q8H PRN Pain 01/19/21 [History Last Taken 01/19/21] levothyroxine 100 mcg tablet 100 mcg PO DAILY THYROID 01/19/21 [History Last Taken 01/17/21] warfarin 1 mg tablet 2 mg PO .COMPLEX 2nd rx for dose clarification #180 tabs 01/27/21 [Rx Last Taken Unknown] venlafaxine 37.5 mg tablet 37.5 mg PO BID DEPRESSION 05/03/21 [History Last Taken Unknown] metoprolol succinate 25 mg tablet,extended release 24 hr 12.5 mg PO BID 90 days #90 tabs 09/08/21 [Rx Last Taken Unknown] warfarin 2 mg tablet 2 mg PO .COMPLEX 2nd RX for dose clarification #180 tabs 03/06/22 [Rx Last Taken Unknown] potassium chloride 20 mEq tablet,extended release(part/cryst) 20 meq PO BID SUPPLEMENT #180 tabs 03/15/22 [Rx Last Taken Unknown] midodrine 10 mg tablet 10 mg PO TID #90 tabs 04/03/22 [Rx Last Taken Unknown] pantoprazole 40 mg tablet,delayed release (Protonix) 40 mg PO BID #60 tabs 04/03/22 [Rx Last Taken Unknown] enoxaparin 40 mg/0.4 mL subcutaneous syringe 40 mg (0.4 mL) subcut Q12H needs to continue for mechanical aortic valve #4 mL 04/19/22 [Rx Last Taken Unknown] furosemide 40 mg tablet 40 mg PO BID #180 tabs 05/22/22 [Rx Last Taken Unknown] Allergy/AdvReac Type Severity Reaction Status Date / Time amiodarone AdvReac vomiting, Verified 08/31/22 10:15 poor balance, dizziness digoxin AdvReac nausea, Verified 08/31/22 10:15 dry heaves lorazepam [From Ativan] AdvReac Unknown Verified 08/31/22 10:15 meloxicam [From Mobic] AdvReac Unknown Verified 08/31/22 10:15 nortriptyline HCl AdvReac Unknown Verified 08/31/22 10:15 [From Pamelor] zolpidem tartrate AdvReac Unknown Verified 08/31/22 10:15 [From Ambien] Family History Mother Cancer lung and renal Father Heart disease Surgical History History of cardioversion (10/2015) History of incision of pericardium History of left heart catheterization (07/17/08) History of mitral valve replacement with mechanical valve (07/22/08) History of tubal ligation Presence of permanent cardiac pacemaker (08/30/18) Social History Smoking Status: Current every day smoker tobacco type: cigarettes Tobacco: How many years used: 60 alcohol intake: never substance use type: does not use caffeine: Yes Type: carbonated beverages what type of physical activity do you participate in: none seatbelt use: always do you feel safe at home: Yes ROS ROS ED Review of Systems ROS Unobtainable: other Constitutional Constitutional ED: Reports lethargy; Denies chills, fever(s), sweats or weight loss Eyes Eyes: Denies blurry vision, change in vision or diplopia ENT ENT ED: Denies rhinorrhea or sore throat Cardiovascular Cardiovascular: Denies chest pain, orthopnea or racing heartbeat Respiratory/Chest Respiratory/Chest: Denies cough, dyspnea, dyspnea on exertion, orthopnea or sputum Gastrointestinal Gastrointestinal: Reports other Details: Bright red blood per rectum ; Denies abdominal pain, diarrhea, nausea or vomiting Genitourinary Genitourinary ED: Denies dysuria, hematuria or urinary frequency Musculoskeletal Musculoskeletal: Denies arthralgias, back pain, myalgias or neck pain Integumentary Denies abscess, Abrasions or rash Neurologic Neurologic: Denies headache(s) or weakness Psychiatric Psychiatric: Denies anxiety, depression or suicidal thoughts Endocrine Endocrinology: Denies polydipsia, polyphagia or polyuria Hematologic/Lymphatic Hematologic/Lymphatic: Denies easy bleeding, easy bruising or lymphadenopathy Allergic/Immunologic Allergic/Immunologic ED: Denies mouth swelling, tongue swelling or urticaria EXAM Physical Exam Narrative Exam Narrative: Patient appears pale Const Vital Signs: 08/31/22 10:00 08/31/22 10:16 08/31/22 10:32 Temperature 95.9 F L Temperature Source Temporal Pulse Rate 90 100 105 H Respiratory Rate 18 18 16 Blood Pressure 69/24 L Blood Pressure Mean 39 Blood Pressure Source Blood Pressure Position Blood Pressure Location Pulse Ox 97 94 97 Oxygen Delivery Method Room Air Non-Rebreather Oxygen Flow Rate (L/min) 15 08/31/22 10:50 08/31/22 11:28 08/31/22 11:31 Temperature 96.2 F L Temperature Source Temporal Pulse Rate 99 93 Respiratory Rate 19 H 18 Blood Pressure 111/48 L 67/32 L 76/36 L Blood Pressure Mean 69 43 49 Blood Pressure Source Monitor Blood Pressure Position Supine Blood Pressure Location Right Arm Pulse Ox 100 97 Oxygen Delivery Method Nasal Cannula Nasal Cannula Oxygen Flow Rate (L/min) 3 3 08/31/22 11:43 Temperature 96.5 F L Temperature Source Temporal Pulse Rate 91 Respiratory Rate 20 H Blood Pressure 67/39 L Blood Pressure Mean 48 Blood Pressure Source Monitor Blood Pressure Position Supine Blood Pressure Location Left Arm Pulse Ox 93 Oxygen Delivery Method Nasal Cannula Oxygen Flow Rate (L/min) 4 Positive well nourished and well developed General Appearance ED: well developed and NAD HEENT Reports TM's clear and dry mucous membranes normocephalic and atraumatic; Negative for trauma or tenderness Tympanic Membrane ED: Yes TM's clear Mouth ED: Yes dry mucous membranes Mouth: dry mucous membranes Eyes PERRL and EOMs intact bilaterally General Eye ED: Negative for pale conjunctiva or scleral icterus Neck no lymphadenopathy, supple and no JVD General: Negative for tenderness Chest Wall inspection of chest normal and palpation of chest normal Chest: Negative for tenderness Resp normal respiratory effort and clear to auscultation bilaterally Effort and Inspection: Negative for respiratory distress or pain with movement Auscultation: Negative for rhonchi, wheezes or diminished lung sounds Cardio regular rhythm, S1 normal heart sound, S2 normal heart sound and no murmurs Rate: tachycardic Peripheral Pulses: pulses 2+ throughout GI normal to inspection, nondistended, normoactive bowel sounds, soft to palpation, non-tender, non-distended and no masses Back/Spine no CVA tenderness and no thoracic nor lumbar tenderness Extremity normal to inspection General Extremety ED: Negative for edema General Extremity: Negative for edema Neuro oriented x3, CN's II-XII intact bilaterally, no sensory deficits noted and gait normal Sensorium / Orientation: awake, alert, oriented to person, oriented to place and oriented to time Motor Exam: strength 5/5 throughout and strength abnormal Psych mental status grossly normal Skin no rashes or lesions noted and no wounds MDM MDM MDM Narrative Medical decision making narrative: IV line established on arrival. Patient placed on a groundwater monitoring technician. She had a total 2 IVs placed. She was ordered a liter percent fluid bolus. Initially ordered trauma blood as we could not get a blood pressure she appeared quite pale suspected acute blood loss anemia. Lab is telling me I cannot give her trauma blood because she has antibodies and will need to be typed and crossed. Patient had an unresponsive episode in the emergency department and I discussed her DNR status with her son. Patient apparently had been on hospice. Patient does not wish to be intubated or have CPR performed. Patient will be Comfort Care arrest. Lab Data Attestation: I reviewed the patient's lab results. Labs: Laboratory Results - last 24 hr 08/31/22 08/31/22 08/31/22 10:05 10:05 10:05 WBC 7.7 RBC 1.19 L Hgb 3.6 L* Hct 12.2 L MCV 102.5 H MCH 30.3 MCHC 29.5 L RDW Std Deviation 69.0 H RDW Coeff of Uriel 20.3 H Plt Count 146 L MPV 11.6 Immature Gran % (Auto) 0.800 Neut % (Auto) 81.8 H Lymph % (Auto) 10.7 L Mcdonald % (Auto) 6.5 Eos % (Auto) 0.1 Baso % (Auto) 0.1 Absolute Neuts (auto) 6.3 Absolute Lymphs (auto) 0.82 L Nucleated RBC % 0 [address] Path Review May foll Hypochromasia 1+ Anisocytosis 1+ PT INR Sodium 140 Potassium 4.0 Chloride 105 Carbon Dioxide 22.0 Anion Gap 13 BUN 56 H Creatinine 1.71 H Estim Creat Clear Calc 19.54 Est GFR (MDRD) Af Amer 37 L Est GFR (MDRD) Non-Af 31 L BUN/Creatinine Ratio 32.7 H Glucose 173 H Lactic Acid Calcium 8.1 L Blood Type A POSITIVE Antibody Screen NEGATIVE Crossmatch 08/31/22 08/31/22 08/31/22 10:05 10:05 10:20 WBC RBC Hgb Hct MCV MCH MCHC RDW Std Deviation RDW Coeff of Uriel Plt Count MPV Immature Gran % (Auto) Neut % (Auto) Lymph % (Auto) Mcdonald % (Auto) Eos % (Auto) Baso % (Auto) Absolute Neuts (auto) Absolute Lymphs (auto) Nucleated RBC % Diff Path Review Hypochromasia Anisocytosis PT INR Sodium Potassium Chloride Carbon Dioxide Anion Gap BUN Creatinine Estim Creat Clear Calc Est GFR (MDRD) Af Amer Est GFR (MDRD) Non-Af BUN/Creatinine Ratio Glucose Lactic Acid 9.5 H* Calcium Blood Type Antibody Screen Crossmatch See Detail See Detail 08/31/22 11:00 WBC RBC Hgb Hct MCV MCH MCHC RDW Std Deviation RDW Coeff of Uriel Plt Count MPV Immature Gran % (Auto) Neut % (Auto) Lymph % (Auto) Mcdonald % (Auto) Eos % (Auto) Baso % (Auto) Absolute Neuts (auto) Absolute Lymphs (auto) Nucleated RBC % Diff Path Review Hypochromasia Anisocytosis PT > 120.0 H INR > 19.5 H* Sodium Potassium Chloride Carbon Dioxide Anion Gap BUN Creatinine Estim Creat Clear Calc Est GFR (MDRD) Af Amer Est GFR (MDRD) Non-Af BUN/Creatinine Ratio Glucose Lactic Acid Calcium Blood Type Antibody Screen Crossmatch Discharge Plan Triage Chief Complaint: GI Bleed ED Provider: Wilfrid Montesinos Dx/Rx/DC Orders Prescriptions: No Action ferrous sulfate 325 MG tablet 650 mg PO QHS Label Comments: Iron supplement folic acid 1 MG tablet 1 mg PO DAILY@0800 Label Comments: Supplement cyanocobalamin (vitamin B-12) 2,500 MCG tablet 2,500 mcg PO DAILY Label Comments: Supplement magnesium 250 MG tablet 250 mg PO DAILY cholecalciferol (vitamin D3) 1,000 UNIT capsule 1,000 unit PO DAILY venlafaxine 37.5 mg tablet 37.5 mg PO BID pantoprazole 40 MG tablet 40 mg PO BID 30 Days Qty: 60 0RF hydrocodone-acetaminophen 5-325 mg tablet 0.5 - 1 tab PO Q8H PRN (Reason: Pain) Label Comments: take 1 tablet by mouth every 8 hours if needed for pain levothyroxine 100 mcg tablet 100 mcg PO DAILY Label Comments: take 1 tablet by mouth once daily midodrine 10 mg tablet 10 mg PO TID Qty: 90 0RF Rx Instructions: do not give last dose of day after 6PM or within 4 hrs of bedtime pantoprazole [Protonix] 40 mg tablet,delayed release (DR/EC) 40 mg PO BID Qty: 60 1RF Rx Instructions: advised TWICE DAILY FOR 2 WEEKS THEN ONCE DAILY warfarin 1 mg tablet 2 mg PO .COMPLEX Qty: 180 3RF Hold Instructions: Hold while INR is more than 3.0 Protocol: Dose Management Condition: Sunday Dose/Route: 1 mg Instruction: 1 x 1 mg tablet Condition: Sunday Dose/Route: 2 mg Instruction: 1 x 2 mg tablet Condition: Sunday Dose/Route: 2 mg Instruction: 1 x 2 mg tablet Condition: Sunday Dose/Route: 2 mg Instruction: 1 x 2 mg tablet Condition: Dose/Route: 2 mg Instruction: 1 x 2 mg tablet Condition: Sunday Dose/Route: 2 mg Instruction: 1 x 2 mg tablet Condition: Sunday Dose/Route: 2 mg Instruction: 1 x 2 mg tablet Protocol Text: Adjustment Start Date: 08/10/22 INR Value: 2.8 INR Date: 08/10/22 Recheck Date: 08/31/22 Rx Instructions: 2 tablets (4mg) on , 1 tablets with a 2 mg tablet all other days of the week OR as DIRECTED; DOSE CHANGES OFTEN metoprolol succinate 25 mg tablet extended release 24 hr 12.5 mg PO BID 90 Days Qty: 90 3RF Hold Instructions: Hold while BP is less than 100 mmHg warfarin 2 mg tablet 2 mg PO .COMPLEX Qty: 180 3RF Hold Instructions: Hold while INR is more than 3.0 Protocol: Dose Management Condition: Sunday Dose/Route: 1 mg Instruction: 1 x 1 mg tablet Condition: Sunday Dose/Route: 2 mg Instruction: 1 x 2 mg tablet Condition: Sunday Dose/Route: 2 mg Instruction: 1 x 2 mg tablet Condition: Sunday Dose/Route: 2 mg Instruction: 1 x 2 mg tablet Condition: Dose/Route: 2 mg Instruction: 1 x 2 mg tablet Condition: Sunday Dose/Route: 2 mg Instruction: 1 x 2 mg tablet Condition: Sunday Dose/Route: 2 mg Instruction: 1 x 2 mg tablet Protocol Text: Adjustment Start Date: 08/10/22 INR Value: 2.8 INR Date: 08/10/22 Recheck Date: 08/31/22 Rx Instructions: 2 mg PO 2 tablets on (4mg), take with a 1 mg tablet to = 3mg all other days of the week OR as directed: DOSE CHANGES OFTEN; potassium chloride 20 mEq tablet,ER particles/crystals 20 meq PO BID Qty: 180 3RF enoxaparin 40 mg/0.4 mL syringe 40 mg subcut Q12H Qty: 4 1RF furosemide 40 mg tablet 40 mg PO BID Qty: 180 3RF Hold Instructions: Hold while BP is less than 110 mmHg Primary Care Provider: Kodak Muñoz Referrals: Kodak Muñoz MD [Primary Care Provider] -
[2022-08-31] MEDS: 0.9% Normal Saline 1,000 ML 1000 ML IV (10:15)
[2022-08-31 10:22] LABS: Absolute Lymphocyte Count 0.82 X10^3/uL (0.83-4.51); Absolute Neutrophil Count 6.3 X10^3/uL (2.0-7.7); Basophil# 0.01 X10^3/uL; Basophil% 0.1 % (0-1); Eosinophil# 0.01 X10^3/uL; Eosinophils% 0.1 % (0-5); Hematocrit 12.2 % (37-47); Lymphocyte # 0.82 X10^3/ul (0.83-4.51); Lymphocyte % 10.7 % (19-41); Mean Corp Hgb Conc 29.5 g/dL (32-36); Mean Corpuscular Hgb 30.3 pg (27.0-32.0); Mean Corpuscular Volume 102.5 fL (81-99); Mean Platelet Vol. 11.6 fl (6.2-12.0); Monocyte% 6.5 % (0-10); NRBC Flagged by Analyzer 0 % (0-5); Neutrophil # 6.28 X10^3/uL (2.7-7.7); Neutrophil % 81.8 % (47-70); POSITIVE COUNT YES; POSITIVE MORPHOLOGY YES; Platelet Count 146 K/mm3 (150-450); RBC Distribution Width CV 20.3 % (11.6-14.6); Red Blood Count 1.19 M/mm3 (4.2-5.4); White Blood Count 7.7 K/mm3 (4.4-11.0)
[2022-08-31 10:26] LABS: Differential Indicated SCAN CRITERIA MET; Hemoglobin 3.6 g/dL (12.0-15.0)
[2022-08-31] MEDS: 0.9% Normal Saline 1,000 ML 999 ML IV (10:30)
--- NOTE | 2022-08-31 10:32 | ED.RN ---
patient is now unresponsive and agonal breathing. dr. moore to bedside. per son patient is [id number] do not intubate.
[2022-08-31 10:34] LABS: Anion Gap 13 (5-15); BUN 56 mg/dL (7-18); BUN/Creat Ratio 32.7 RATIO (10-20); Calcium,Total 8.1 mg/dL (8.5-10.1); Chloride 105 mmol/L (98-107); Creatinine, Serum 1.71 mg/dL (0.55-1.02); EST Glomerular Filtration Rate 31 mL/min (>60); Est Glom Filt Rate - Afr Amer 37 mL/min (>60); Estimated Creatinine Clearance 19.54 ml/min; Glucose 173 mg/dL (74-106); Sodium Level 140 mmol/L (136-145)
--- NOTE | 2022-08-31 10:38 | ED.RN ---
patient is now talking again, asking for a warm blanket. dr. moore notified.
[2022-08-31 10:47] LABS: Anisocytosis 1+
[2022-08-31 10:48] LABS: Hypochromasia 1+
--- NOTE | 2022-08-31 11:21 | NURSING ---
DR KEVIN MILLER
[2022-08-31 11:26] LABS: Lactic Acid 9.5 mmol/L (0.4-1.9)
--- NOTE | 2022-08-31 11:32 | ED.RN ---
LACTIC ACID 9.6 DR WOODRUFF
--- NOTE | 2022-08-31 11:45 | HP.PCM.HOS_ITS ---
[facility] - General General Date of Service: 08/31/22 Chief Complaint: gib [facility] Narrative EMANI LOUIS, is a 81 F who presents with weakness. Also having GI bleed. Did not seek attention at the time. Patient presents here pale, hypotensive and with hemoglobin of five 3.6 patient received 2 L of IV fluids and had a low blood pressure of 11/48 after which I was contacted. Subsequent blood pressure when I came to evaluate her shortly after was 611/32 and patient was listless pale. Patient has been ordered blood. I had the patient's son, see the patient and I discussed with him and explained that from medical side that she would likely require central venous catheter to administer pressors in light of her profound symptomatic hypotension. He stated she would not want that and we both agreed to make patient hospice. Patient had been previously enrolled in hospice when she is here previously for GI bleed [facility] Medical History Abdominal distension Acute GI bleeding Adenomatous colon polyp Anemia Anemia in chronic kidney disease Anemia requiring transfusions Anxiety Atrial fibrillation Bilateral leg edema Black stool Cardiac pacemaker in situ Carotid bruit Cholelithiasis Chronic gastrointestinal bleeding Chronic heart failure with preserved ejection fraction (HFpEF) Cirrhosis Cirrhosis of liver with ascites CKD (chronic kidney disease) COPD (chronic obstructive pulmonary disease) Depression Depression Diverticulosis GERD (gastroesophageal reflux disease) GI bleed GI bleeding HLD (hyperlipidemia) Hypokalemia Hypotension Hypotension Iron deficiency Irregular heart beat 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 Longstanding persistent atrial fibrillation Neutropenia Nicotine dependence Non-rheumatic aortic stenosis Non-rheumatic tricuspid valve insufficiency Nonrheumatic mitral (valve) insufficiency Pancytopenia Pericardial effusion Pleural effusion PVC's (premature ventricular contractions) Secondary pulmonary hypertension Smoker Supratherapeutic INR Tachycardia-bradycardia syndrome Thrombocytopenia Thrombocytopenia Type 2 diabetes mellitus Typical atrial flutter Home Medications ferrous sulfate 325 mg (65 mg iron) tablet 650 mg PO QHS SUPPLEMENT 04/02/15 [History Last Taken 01/18/21] folic acid 1 mg tablet 1 mg PO DAILY@0800 supplement 04/30/15 [History Last Taken 01/17/21] cyanocobalamin (vitamin B-12) 2,500 mcg tablet 2,500 mcg PO DAILY vitamin 06/10/16 [History Last Taken 01/17/21] magnesium 250 mg tablet 250 mg PO DAILY supplement 05/24/17 [History Last Taken 01/17/21] cholecalciferol (vitamin D3) 25 mcg (1,000 unit) capsule 1,000 unit PO DAILY SUPPLEMENT 04/07/19 [History Last Taken 01/17/21] pantoprazole 40 mg tablet,delayed release 40 mg PO BID gerd 30 days #60 tabs 06/21/20 [Rx Last Taken 01/17/21] hydrocodone-acetaminophen 5-325mg 5mg-325mg 0.5 - 1 tab PO Q8H PRN Pain 01/19/21 [History Last Taken 01/19/21] levothyroxine 100 mcg tablet 100 mcg PO DAILY THYROID 01/19/21 [History Last Taken 01/17/21] warfarin 1 mg tablet 2 mg PO .COMPLEX 2nd rx for dose clarification #180 tabs 01/27/21 [Rx Last Taken Unknown] venlafaxine 37.5 mg tablet 37.5 mg PO BID DEPRESSION 05/03/21 [History Last Taken Unknown] metoprolol succinate 25 mg tablet,extended release 24 hr 12.5 mg PO BID 90 days #90 tabs 09/08/21 [Rx Last Taken Unknown] warfarin 2 mg tablet 2 mg PO .COMPLEX 2nd RX for dose clarification #180 tabs 03/06/22 [Rx Last Taken Unknown] potassium chloride 20 mEq tablet,extended release(part/cryst) 20 meq PO BID SUPPLEMENT #180 tabs 03/15/22 [Rx Last Taken Unknown] midodrine 10 mg tablet 10 mg PO TID #90 tabs 04/03/22 [Rx Last Taken Unknown] pantoprazole 40 mg tablet,delayed release (Protonix) 40 mg PO BID #60 tabs 04/03/22 [Rx Last Taken Unknown] enoxaparin 40 mg/0.4 mL subcutaneous syringe 40 mg (0.4 mL) subcut Q12H needs to continue for mechanical aortic valve #4 mL 04/19/22 [Rx Last Taken Unknown] furosemide 40 mg tablet 40 mg PO BID #180 tabs 05/22/22 [Rx Last Taken Unknown] Allergy/AdvReac Type Severity Reaction Status Date / Time amiodarone AdvReac vomiting, Verified 08/31/22 10:15 poor balance, dizziness digoxin AdvReac nausea, Verified 08/31/22 10:15 dry heaves lorazepam [From Ativan] AdvReac Unknown Verified 08/31/22 10:15 meloxicam [From Mobic] AdvReac Unknown Verified 08/31/22 10:15 nortriptyline HCl AdvReac Unknown Verified 08/31/22 10:15 [From Pamelor] zolpidem tartrate AdvReac Unknown Verified 08/31/22 10:15 [From Ambien] Family History Mother Cancer lung and renal Father Heart disease Surgical History History of cardioversion (10/2015) History of incision of pericardium History of left heart catheterization (07/17/08) History of mitral valve replacement with mechanical valve (07/22/08) History of tubal ligation Presence of permanent cardiac pacemaker (08/30/18) Social History Smoking Status: Current every day smoker tobacco type: cigarettes Tobacco: How many years used: 60 alcohol intake: never substance use type: does not use caffeine: Yes Type: carbonated beverages what type of physical activity do you participate in: none seatbelt use: always do you feel safe at home: Yes ROS Review of Systems ROS Unobtainable: due to mental status and other Details: Due to profound lethargy unable to obtain an adequate review of system Vital Signs Vital Signs Vital Signs: 08/31/22 10:00 08/31/22 10:16 08/31/22 10:32 Temperature 35.5 C L Temperature Source Temporal Pulse Rate 90 100 105 H Respiratory Rate 18 18 16 Blood Pressure 69/24 L Blood Pressure Mean 39 Blood Pressure Source Blood Pressure Position Blood Pressure Location Pulse Ox 97 94 97 Oxygen Delivery Method Room Air Non-Rebreather Oxygen Flow Rate (L/min) 15 08/31/22 10:50 08/31/22 11:28 08/31/22 11:31 Temperature 35.7 C L Temperature Source Temporal Pulse Rate 99 93 Respiratory Rate 19 H 18 Blood Pressure 111/48 L 67/32 L 76/36 L Blood Pressure Mean 69 43 49 Blood Pressure Source Monitor Blood Pressure Position Supine Blood Pressure Location Right Arm Pulse Ox 100 97 Oxygen Delivery Method Nasal Cannula Nasal Cannula Oxygen Flow Rate (L/min) 3 3 08/31/22 11:43 Temperature 35.8 C L Temperature Source Temporal Pulse Rate 91 Respiratory Rate 20 H Blood Pressure 67/39 L Blood Pressure Mean 48 Blood Pressure Source Monitor Blood Pressure Position Supine Blood Pressure Location Left Arm Pulse Ox 93 Oxygen Delivery Method Nasal Cannula Oxygen Flow Rate (L/min) 4 Weight Weight: 46.4 kg Body Mass Index (BMI) 18.7 Physical Exam Const Constitutional Narrative: Lethargic. Pale. Cachectic. HEENT normocephalic, head/scalp atraumatic, hearing grossly normal bilaterally and moist oral mucous membranes Eyes PERRL and EOMs intact bilaterally Neck no lymphadenopathy and supple Resp normal respiratory effort, no retractions, no use of accessory muscles and clear to auscultation bilaterally Cardio regular rate and regular rhythm GI normal to inspection, nondistended, normoactive bowel sounds and soft to palpation Extremity normal to inspection Results Lab / Micro Data Result Diagrams: 08/31/22 10:05 08/31/22 10:05 Labs: Laboratory Results - last 24 hr 08/31/22 10:05: WBC 7.7, RBC 1.19 L, Hgb 3.6 L*, Hct 12.2 L, MCV 102.5 H, MCH 30.3, MCHC 29.5 L, RDW Std Deviation 69.0 H, RDW Coeff of Uriel 20.3 H, Plt Count 146 L, MPV 11.6, Immature Gran % (Auto) 0.800, Neut % (Auto) 81.8 H, Lymph % (Auto) 10.7 L, [place]am % (Auto) 6.5, Eos % (Auto) 0.1, Baso % (Auto) 0.1, Absolute Neuts (auto) 6.3, Absolute Lymphs (auto) 0.82 L, Nucleated RBC % 0, Diff Path Review May foll, Hypochromasia 1+, Anisocytosis 1+ 08/31/22 10:05: Sodium 140, Potassium 4.0, Chloride 105, Carbon Dioxide 22.0, Anion Gap 13, BUN 56 H, Creatinine 1.71 H, Estim Creat Clear Calc 19.54, Est GFR (MDRD) Af Amer 37 L, Est GFR (MDRD) Non-Af 31 L, BUN/Creatinine Ratio 32.7 H, Glucose 173 H, Calcium 8.1 L 08/31/22 10:05: Blood Type A POSITIVE, Antibody Screen NEGATIVE 08/31/22 10:05: Crossmatch See Detail 08/31/22 10:05: Crossmatch See Detail 08/31/22 10:20: Lactic Acid 9.5 H* Assessment & Plan Assessment/Plan (1) Hemorrhagic shock: PLAN: Hg 3.6. Transient normal blood pressure an outlier from all other hypotensive readings. DW pt's son, no pressors, no central line. Will administer 2 units of PRBCs for palliation. (2) MAX (acute kidney injury): PLAN: ATN v prerenal Given hospice status, will not address further. (3) Acute blood loss anemia: PLAN: will transfuse 2 units, no additional checks. (4) Coagulopathy: PLAN: INR >19.5. Hospitalist service was contacted for admission prior to INR results were available. Will administer vitamin K 10mg IV and PCC as this is life threatening bleeding, but also palliation. (5) GI bleed: PLAN: due to coagulopathy and history of duodenal ulcers No additional work (6) Hospice care: PLAN: Discussed goals of care with the patient's son, Gildardo. Plan for comfort measures and palliation. If survives, then consult Hospice 09/01/22. Roxanol. PLAN: Plan Mechanical mitral valve. warfarin held. Charges/Coding Visit Charges Inpatient E&M: 96938 Init Hosp L2
[2022-08-31 11:46] LABS: International Normalized Ratio > 19.5; Prothrombin Time (Protime)PT. > 120.0 SECONDS (11.7-14.9)
--- NOTE | 2022-08-31 11:47 | EKG12_ITS ---
Test Reason : Blood Pressure : / mmHG Vent. Rate : 085 BPM Atrial Rate : 000 BPM P-R Int : 000 ms QRS Dur : 080 ms QT Int : 418 ms P-R-T Axes : 000 -60 158 degrees QTc Int : 497 ms Atrial fibrillation with occasional ventricular-paced complexes Left axis deviation Low voltage QRS Nonspecific ST and T wave abnormality Prolonged QT Abnormal ECG Confirmed by CIARA GUILLEN, HENRIETTA ([id number]), video editor HIRAM GREENE ([id number]) on 09/04/2022 10:32:39 AM Referred By: VALARIE Confirmed By:HENRIETTA URBINA MD
--- NOTE | 2022-08-31 12:01 | NURSING ---
MED SURG JOGWEN GI BLEED, ANEMIA, HYPOTENSION, COUMADIN COAGULOPATHY
--- NOTE | 2022-08-31 12:20 | CT_ITS ---
STUDY: CT BRAIN WITHOUT CONTRAST REASON FOR EXAM: Female, 81 years old. Headache, coagulopathy RADIATION DOSAGE (If Supplied By Facility): CTDIvol = ( 44.99 ) mGy, DLP = ( 745.49 ) mGycm TECHNIQUE: Transaxial CT imaging of the brain was performed without administration of intravenous contrast material. Individualized dose optimization techniques were used for this CT. COMPARISON: No relevant priors. FINDINGS: Normal soft tissue structures. Normal calvarium. There is mild cerebral atrophy with widening of the extra-axial spaces and ventricular dilatation. Normal white matter tracts of the cerebral hemispheres. Normal basal ganglia and thalami. Normal brainstem. Normal cerebellum. There is no intracranial hemorrhage. There are no findings of an acute ischemic infarction. Atherosclerotic plaque formation of the vertebral arteries and cavernous portions of the internal carotid arteries bilaterally. Minimal mucosal thickening along the posterior aspect of the left sphenoid sinus. CT/Brain/Head without Contrast IMPRESSION: Chronic involutional changes of the brain. Electronically Signed: Sanford Sainz MD at 13:13 EST ,
[2022-08-31] MEDS: fentaNYL 100 MCG/2 ML Ampul 25 MCG IV (12:31)
[2022-08-31 15:04] LABS: Reflex Lactate? Y
--- NOTE | 2022-08-31 16:40 | NURSING ---
Pt hgb 3.6, very difficult to get temperature Oral or Axillary. No temporal thermometers available at this time. Also very difficult to get pulse ox or HR reading. Extremities are cold nd pulse ox not reading accurately. bill of lading clerk notified.
[2022-08-31 16:41] LABS: Lactic Acid 4.6 mmol/L (0.4-1.9)
[2022-08-31] MEDS: morphine (oral solution) 10MG/0.5ML Syringe 5 MG SL/PO (23:26)
[2022-08-31] MEDS: 0.9% Saline Lock 10 ML Syringe IV (23:28)
[2022-09-01] VITALS (12 sets, daily range): BP systolic 58–85; BP diastolic 38–60; PULSE 93–108; RESP 16–20; TEMP 36.3–36.6; O2SAT 90–99
--- NOTE | 2022-09-01 06:44 | NURSING ---
Pt not awakened for focused assessment d/t nursing communication stating to not awaken pt while asleep. Jose De Jesus CAMPOS
--- NOTE | 2022-09-01 08:40 | PCM.PN.HOSP ---
Subjective Subjective Did very well overnight. No further bleeding. Objective Data Objective Data Vital Signs: Vital Signs Temp Pulse Resp BP Pulse Ox O2 Del Method O2 Flow Rate 35.8 C L 118 H 19 H 71/42 L 98 Nasal Cannula 4 08/31/22 20:15 08/31/22 20:15 08/31/22 20:15 08/31/22 20:15 09/01/22 07:46 09/01/22 07:46 09/01/22 07:46 Oxygen Flow Rate (L/min) 4 Oxygen Delivery Method Nasal Cannula Weight: 46 kg Body Mass Index (BMI) 18.5 Intake & Output: Intake and Output for Last 24 Hours 08/30/22 08/31/22 09/01/22 23:59 23:59 23:59 Intake Total 263 2631 Output Total 100 / 100 Balance 263 263 -100 / -100 Lab / Micro Data Result Diagrams: 09/01/22 12:20 09/01/22 12:20 Labs: Laboratory Results - last 24 hr 08/31/22 10:05: WBC 7.7, RBC 1.19 L, Hgb 3.6 L*, Hct 12.2 L, MCV 102.5 H, MCH 30.3, MCHC 29.5 L, RDW Std Deviation 69.0 H, RDW Coeff of Uriel 20.3 H, Plt Count 146 L, MPV 11.6, Immature Gran % (Auto) 0.800, Neut % (Auto) 81.8 H, Lymph % (Auto) 10.7 L, Collin % (Auto) 6.5, Eos % (Auto) 0.1, Baso % (Auto) 0.1, Absolute Neuts (auto) 6.3, Absolute Lymphs (auto) 0.82 L, Nucleated RBC % 0, Diff Path Review May foll, Hypochromasia 1+, Anisocytosis 1+ 08/31/22 10:05: Sodium 140, Potassium 4.0, Chloride 105, Carbon Dioxide 22.0, Anion Gap 13, BUN 56 H, Creatinine 1.71 H, Estim Creat Clear Calc 19.54, Est GFR (MDRD) Af Amer 37 L, Est GFR (MDRD) Non-Af 31 L, BUN/Creatinine Ratio 32.7 H, Glucose 173 H, Calcium 8.1 L 08/31/22 10:05: Blood Type A POSITIVE, Antibody Screen NEGATIVE 08/31/22 10:05: Crossmatch See Detail 08/31/22 10:05: Crossmatch See Detail 08/31/22 10:20: PT > 120.0 H, INR > 19.5 H* 08/31/22 10:20: Lactic Acid 9.5 H* 08/31/22 15:45: Lactic Acid 4.6 H* Radiography Diagnostic Testing: Radiology Impression Brain CT 08/31/22 12:20 IMPRESSION: Chronic involutional changes of the brain. Electronically Signed: Sanford Sainz MD at 13:13 EST , Physical Exam Const alert, oriented x3 and no apparent distress Constitutional Narrative: pale Resp normal respiratory effort, no retractions, no use of accessory muscles and clear to auscultation bilaterally Cardio regular rate, regular rhythm, S1 normal heart sound and S2 normal heart sound GI normal to inspection, nondistended, normoactive bowel sounds and soft to palpation Neuro Sensorium / Orientation: awake Psych affect normal Assessment & Plan Assessment/Plan (1) Hemorrhagic shock: PLAN: Admssion Hg 3.6. Transient normal blood pressure an outlier from all other hypotensive readings. DW pt's son, no pressors, no central line. Will administer 2 units of PRBCs for palliation. 09/01: will administer another unit of RBCs (2) MAX (acute kidney injury): PLAN: ATN v prerenal Will give IVF (3) Acute blood loss anemia: PLAN: 2 units on admission and went from 3.6 to 6.1 Will administer 1 more unit. (4) Coagulopathy: PLAN: INR >19.5. Hospitalist service was contacted for admission prior to INR results were available. Pt received vitamin K and PCC. Now INR 1.2 Will start heparin gtt as pt has a mechanical heart valve, if no bleeding then can resume warfarin. (5) GI bleed: PLAN: due to coagulopathy and history of duodenal ulcers Start PPI Pt declines any further endoscopy (6) Hospice care: PLAN: Discussed goals of care with the patient's son, Gildardo. Plan for comfort measures and palliation. If survives, then consult Hospice 09/01/22. Roxanol. 09/01: Patient improved and wishes to revoke hospice care and continue with medical treatment. Her CODE STATUS is now DNR Comfort Care arrest no intubation. PLAN: Plan Consult hospice. Discussed with patient's son Gildardo. Charges/Coding Visit Charges Inpatient E&M: 60487 Subs Hosp L3
--- NOTE | 2022-09-01 09:45 | CASEMGMT ---
Physician put in referral for Hospice. SW called patient's son, Gildardo. STACI introduced self and role at [facility]. STACI mentioned that physician spoke with him about Hospice for patient. Gildardo said that physician did yesterday, however patient is feeling better after getting blood so he would like her to get blood and come home. STACI let Gildardo know SW will talk with physician and have him discuss plan of care. Yaz Soto [employer]UCER [employer]
[2022-09-01 12:34] LABS: Absolute Lymphocyte Count 0.51 X10^3/uL (0.83-4.51); Absolute Neutrophil Count 5.1 X10^3/uL (2.0-7.7); Basophil# 0.01 X10^3/uL; Basophil% 0.2 % (0-1); Hematocrit 19.2 % (37-47); Hemoglobin 6.1 g/dL (12.0-15.0); Lymphocyte # 0.51 X10^3/ul (0.83-4.51); Lymphocyte % 8.3 % (19-41); Mean Corp Hgb Conc 31.8 g/dL (32-36); Mean Corpuscular Hgb 28.6 pg (27.0-32.0); Mean Corpuscular Volume 90.1 fL (81-99); Mean Platelet Vol. 11.3 fl (6.2-12.0); Monocyte# 0.51 X10^3/uL; Monocyte% 8.3 % (0-10); NRBC Flagged by Analyzer 0.3 % (0-5); Neutrophil # 5.07 X10^3/uL (2.7-7.7); Neutrophil % 82.4 % (47-70); POSITIVE DIFFERENTIAL YES; Platelet Count 114 K/mm3 (150-450); RBC Distribution Width SD 60.2 fl (35.1-43.9); Red Blood Count 2.13 M/mm3 (4.2-5.4); White Blood Count 6.2 K/mm3 (4.4-11.0)
[2022-09-01 12:44] LABS: International Normalized Ratio 1.2; Prothrombin Time (Protime)PT. 14.7 SECONDS (11.7-14.9)
[2022-09-01 13:13] LABS: Differential Indicated SCAN CRITERIA MET
[2022-09-01 13:14] LABS: Differential Comment SCANNED
[2022-09-01 13:22] LABS: ALB/GLOB Ratio 0.7 RATIO (0.9-2.4); AST(SGOT) 12 U/L (15-37); Alanine Aminotransfer ALT/SGPT 7 U/L (13-56); Albumin, Serum 2.3 g/dL (3.2-5.0); Alkaline Phosphatase 70 U/L (45-117); Anion Gap 9 (5-15); BUN 62 mg/dL (7-18); BUN/Creat Ratio 27.9 RATIO (10-20); Calcium,Total 7.6 mg/dL (8.5-10.1); Chloride 106 mmol/L (98-107); Creatinine, Serum 2.22 mg/dL (0.55-1.02); EST Glomerular Filtration Rate 23 mL/min (>60); Est Glom Filt Rate - Afr Amer 27 mL/min (>60); Estimated Creatinine Clearance 14.92 ml/min; Globulin 3.1 g/dL (2.2-4.2); Glucose 173 mg/dL (74-106); Potassium 3.9 mmol/L (3.5-5.1); Protein, Total 5.4 g/dL (6.4-8.2); Sodium Level 139 mmol/L (136-145)
--- NOTE | 2022-09-01 13:45 | CASEMGMT ---
ANDRES ANGUIANO Face to Face with patient for initial transition planning/care coordination assessment. RN CM introduced self and role at [facility]. Patient lying in bed, alert and oriented. Patient willing to participate in assessment and is able to answer all questions appropriately. Care providers, pharmacy, and demographics verified. Patient wishes to discharge home, will monitor progress with therapy for possible HHC vs SNF. Patient states she has no further needs or concerns at this time. CM to follow for discharge planning needs that may arise. PCP: Toni Specialists: William, kaiawhina kohanga reo; Kelly, launderer hand Preferred Pharmacy: [facility] Insurance: [facility] A Prescription Benefit: none Living Will/HPOA: none LNOK: sons Living Arrangements: Patient lives alone in a 2 story home with bed and bath on first floor. 3 steps and railing to enter the home. Patient states she is independent at home. Patient states he sons check on her 3 times per day. Transportation: [facility] DME/HHC: Patient has shower chair, BSC, raised toilet, grab bars, walker, wheelchair, nebulizer, pulse ox and home oxygen at only through [facility] [place]. No previous HHC of SNF Disposition Plan: TBD anticipate HHC vs SNF, will continue to monitor progress with therapy. Krystin BLOOD, RN, CM
[2022-09-01 15:35] LABS: Pathologist Review Reviewed
[2022-09-01 16:22] LABS: Partial Thromboplast Time 33.2 Seconds (24.1-36.2)
[2022-09-01] MEDS: Heparin Injection (Vial) 5,000 UNIT/ML VIAL 3500 UNIT IV (16:24)
[2022-09-01] MEDS: HEPARIN/D5w 25,000 UNITS 25,000 UNITS/250 ML IV.SOLN. 7 UNITS CONT INF (16:25)
[2022-09-01] MEDS: 0.9% Normal Saline 1,000 ML 150 ML IV (18:36)
[2022-09-01] MEDS: Venlafaxine HCl 75 MG Tablet 37.5 MG PO (21:03)
[2022-09-01] MEDS: Ferrous Sulfate 325 MG Tablet 650 MG PO (21:03)
[2022-09-01 23:30] LABS: Hematocrit 21.9 % (37-47)
[2022-09-01] MEDS: Heparin Injection (Vial) 5,000 UNIT/ML VIAL IV (23:41)
[2022-09-02] VITALS (21 sets, daily range): BP systolic 68–87; BP diastolic 41–49; PULSE 96–107; RESP 17–26; TEMP 36.1–37.1; O2SAT 91–100
[2022-09-02] MEDS: Levothyroxine 100 MCG Tablet PO (05:26)
[2022-09-02 06:04] LABS: Absolute Lymphocyte Count 0.43 X10^3/uL (0.83-4.51); Absolute Neutrophil Count 4.4 X10^3/uL (2.0-7.7); Basophil# 0.01 X10^3/uL; Basophil% 0.2 % (0-1); Hematocrit 23.1 % (37-47); Hemoglobin 7.1 g/dL (12.0-15.0); Lymphocyte # 0.43 X10^3/ul (0.83-4.51); Mean Corp Hgb Conc 30.7 g/dL (32-36); Mean Corpuscular Hgb 28.4 pg (27.0-32.0); Mean Corpuscular Volume 92.4 fL (81-99); Mean Platelet Vol. 11.8 fl (6.2-12.0); Monocyte# 0.51 X10^3/uL; Monocyte% 9.5 % (0-10); NRBC Flagged by Analyzer 0 % (0-5); Neutrophil # 4.36 X10^3/uL (2.7-7.7); Neutrophil % 81.6 % (47-70); POSITIVE DIFFERENTIAL YES; Platelet Count 110 K/mm3 (150-450); RBC Distribution Width SD 58.8 fl (35.1-43.9); White Blood Count 5.4 K/mm3 (4.4-11.0)
[2022-09-02 06:22] LABS: Differential Indicated SCAN CRITERIA MET
[2022-09-02 06:23] LABS: ALB/GLOB Ratio 0.7 RATIO (0.9-2.4); AST(SGOT) 9 U/L (15-37); Alanine Aminotransfer ALT/SGPT 7 U/L (13-56); Albumin, Serum 2.2 g/dL (3.2-5.0); Alkaline Phosphatase 73 U/L (45-117); Anion Gap 8 (5-15); BUN 52 mg/dL (7-18); BUN/Creat Ratio 31.9 RATIO (10-20); Chloride 109 mmol/L (98-107); Creatinine, Serum 1.63 mg/dL (0.55-1.02); EST Glomerular Filtration Rate 32 mL/min (>60); Est Glom Filt Rate - Afr Amer 39 mL/min (>60); Estimated Creatinine Clearance 20.32 ml/min; Glucose 165 mg/dL (74-106); Potassium 3.7 mmol/L (3.5-5.1); Protein, Total 5.2 g/dL (6.4-8.2); Sodium Level 139 mmol/L (136-145)
[2022-09-02 06:32] LABS: Differential Comment SCANNED
[2022-09-02 06:58] LABS: International Normalized Ratio 1.2; Prothrombin Time (Protime)PT. 14.9 SECONDS (11.7-14.9)
[2022-09-02 07:08] LABS: Partial Thromboplast Time 43.4 Seconds (24.1-36.2)
[2022-09-02] MEDS: Heparin Injection (Vial) 5,000 UNIT/ML VIAL IV ×2 (08:08→14:55)
--- NOTE | 2022-09-02 08:20 | PN.HOSP_ITS ---
Subjective Subjective Feels well. Objective Data Objective Data Vital Signs: Vital Signs Temp Pulse Resp BP Pulse Ox O2 Del Method O2 Flow Rate 36.3 C L 104 H 18 83/47 L 100 Nasal Cannula 4 09/02/22 08:00 09/02/22 08:00 09/02/22 08:00 09/02/22 08:00 09/02/22 08:00 09/02/22 08:00 09/02/22 08:00 Oxygen Flow Rate (L/min) 4 Oxygen Delivery Method Nasal Cannula Weight: 46 kg Body Mass Index (BMI) 18.5 Intake & Output: Intake and Output for Last 24 Hours 08/31/22 09/01/22 09/02/22 23:59 23:59 23:59 Intake Total 2631 / 2631 1008.53 / 1008.53 1187.6 / 1187.6 Output Total 750 / 750 Balance 2631 / 2631 258.53 / 258.53 1187.6 / 1187.6 Medical Nutrition Assessment Dietitian: Malnutrition Criteria Met Start: 09/01/22 14:40 Freq: Status: Active Protocol: Document 09/01/22 14:40 SLA (Rec: 09/01/22 14:40 SLA [id number]) Nutrition Malnutrition Evidence of Malnutrition Exists Yes Malnutrition (severe): Chronic Evidenced By Suboptimal Energy Intake ( Severe),Weight Loss (Severe), Physical Changes (Severe) Clinical Problem Chronic Disease or Condition Related Malnutrition Etiology related to chronic disease and inability to consume adequate nutrition to meet est nutritional needs Signs/Symptoms as evidenced by <75% of estimated nutritional needs for > 1 yr, obvious fat/muscle loss in face, torso, arms and legs; 4% wt loss in past few days Status Active Problem Recommendation Dietitian Recommendations/Changes Will continue liberal Regular diet - consider appetite stimulant if medically appropriate Will readdress option of oral nutrition supplementation at time of follow up to help increase elly/pro intake. Rec nutrition support if in accordance w/ pt/family wishes to help prevent further decline in pt nutritional status. Lab / Micro Data Result Diagrams: 09/02/22 05:46 09/02/22 05:46 Labs: Laboratory Results - last 24 hr 08/31/22 10:05: Diff Path Review Reviewed 08/31/22 10:05: Crossmatch See Detail 09/01/22 12:20: WBC 6.2, RBC 2.13 L, Hgb 6.1 L, Hct 19.2 L, MCV 90.1 D, MCH 28 .6, MCHC 31.8 L D, RDW Std Deviation 60.2 H, RDW Coeff of Uriel 20.0 H, Plt Count 114 L, MPV 11.3, Immature Gran % (Auto) 0.800, Neut % (Auto) 82.4 H, Lymph % (Auto) 8.3 L, [place] % (Auto) 8.3, Eos % (Auto) 0.0, Baso % (Auto) 0.2, Absolute Neuts (auto) 5.1, Absolute Lymphs (auto) 0.51 L, Nucleated RBC % 0.3, Differential Comment SCANNED 09/01/22 12:20: PT 14.7, INR 1.2 09/01/22 12:20: Sodium 139, Potassium 3.9, Chloride 106, Carbon Dioxide 24.0, Anion Gap 9, BUN 62 H, Creatinine 2.22 H, Estim Creat Clear Calc 14.92, Est GFR (MDRD) Af Amer 27 L, Est GFR (MDRD) Non-Af 23 L, BUN/Creatinine Ratio 27.9 H, Glucose 173 H, Calcium 7.6 L, Total Bilirubin 0.50, AST 12 L, ALT 7 L, Alkaline Phosphatase 70, Total Protein 5.4 L, Albumin 2.3 L, Globulin 3.1, Albumin/Globulin Ratio 0.7 L 09/01/22 12:20: APTT 33.2 09/01/22 22:24: APTT 41.0 H 09/01/22 22:24: Hgb 7.0 L, Hct 21.9 L 09/02/22 05:46: WBC 5.4, RBC 2.50 L, Hgb 7.1 L, Hct 23.1 L, MCV 92.4, MCH 28.4, MCHC 30.7 L, RDW Std Deviation 58.8 H, RDW Coeff of Uriel 19.0 H, Plt Count 110 L, MPV 11.8, Immature Gran % (Auto) 0.700, Neut % (Auto) 81.6 H, Lymph % (Auto) 8.0 L, [place] % (Auto) 9.5, Eos % (Auto) 0.0, Baso % (Auto) 0.2, Absolute Neuts (auto) 4.4, Absolute Lymphs (auto) 0.43 L, Nucleated RBC % 0, Differential Comment SCANNED 09/02/22 05:46: PT 14.9, INR 1.2 09/02/22 05:46: Sodium 139, Potassium 3.7, Chloride 109 H, Carbon Dioxide 22.0, Anion Gap 8, BUN 52 H, Creatinine 1.63 H, Estim Creat Clear Calc 20.32, Est GFR (MDRD) Af Amer 39 L, Est GFR (MDRD) Non-Af 32 L, BUN/Creatinine Ratio 31.9 H, Glucose 165 H, Calcium 7.0 L, Total Bilirubin 0.50, AST 9 L, ALT 7 L, Alkaline Phosphatase 73, Total Protein 5.2 L, Albumin 2.2 L, Globulin 3.0, Albumin/Globulin Ratio 0.7 L 09/02/22 05:46: APTT 43.4 H Physical Exam Const alert and no apparent distress HEENT head/scalp atraumatic and moist oral mucous membranes Resp normal respiratory effort, no retractions, no use of accessory muscles and clear to auscultation bilaterally Cardio regular rate, regular rhythm, S1 normal heart sound and S2 normal heart sound GI normal to inspection, nondistended, normoactive bowel sounds, soft to palpation, non-tender and non-distended Extremity normal to inspection Assessment & Plan Assessment/Plan (1) Hemorrhagic shock: PLAN: Admssion Hg 3.6. Transient normal blood pressure an outlier from all other hypotensive readings. DW pt's son, no pressors, no central line. Will administer 2 units of PRBCs for palliation. 09/01: will administer another unit of RBCs 09/02: Hg 7.1. (2) MAX (acute kidney injury): PLAN: ATN v prerenal Improved w IVF and blood (3) Acute blood loss anemia: PLAN: Received 3 units Hg 7.1. Monitor for now. (4) Coagulopathy: PLAN: INR >19.5. Hospitalist service was contacted for admission prior to INR results were available. Pt received vitamin K and PCC. Now INR 1.2 Will start heparin gtt as pt has a mechanical heart valve, if no bleeding then can resume warfarin. Jarvis, patient's INR's have been stable. Likely partly due to malnutrition. Feel the patient would need to take vitamin K in addition to her warfarin to stabilize as this appears to be an outlier (5) GI bleed: PLAN: due to coagulopathy and history of duodenal ulcers Start PPI Pt declines any further endoscopy (6) Hospice care: PLAN: Discussed goals of care with the patient's son, Gildardo. Plan for comfort measures and palliation. If survives, then consult Hospice 09/01/22. Roxanol. 09/01: Patient improved and wishes to revoke hospice care and continue with medical treatment. Her CODE STATUS is now DNR Comfort Care arrest no intubation. (7) History of mitral valve replacement with mechanical valve: PLAN: Anticoagulated PLAN: Plan Discussed with patient's son Gildardo. Charges/Coding Visit Charges Inpatient E&M: 74674 Subs Hosp L2
--- NOTE | 2022-09-02 09:22 | CASEMGMT ---
Social Work SW spoke w/pt in room in regard to discharge plan. Pt had therapy yesterday, and was needing assist, unsteady. SW spoke w/pt about going to a care home for rehab. Pt states her family stops in to see her a lot and thinks would be able to go home. SW explained she would need family with her all the time as she is needing help. Pt states family may be able to stay w/her. SW asked if it would be okay for SW to call son Gildardo, pt is agreeable. SW also did provide to pt a list of senior care facilities from [facility], complete with quality and resource use data, and in pt's insurance network. SW called son Gildardo, spoke w/him about discharge plan. SW reviewed PT notes w/son. SW explained SNF list is in the room. As per Gildardo, between he, pt's other son and grandson, they can provide 24 hour care. Gildardo also is not agreeable to SNF for pt. Plan will be for pt to return home w/24 hour care. SW remains available should the plan change. PANFILO Steel
[2022-09-02] MEDS: Venlafaxine HCl 75 MG Tablet 37.5 MG PO ×2 (09:35→21:27)
[2022-09-02 14:18] LABS: Partial Thromboplast Time 50.4 Seconds (24.1-36.2)
--- NOTE | 2022-09-02 14:47 | CASEMGMT ---
RN CM in room to discuss possible HHC with patient at discharge. A list of HHC providers including quality and resource use data and consistent with the patient?s preferred geographical region, medical needs, and insurance network were provided from the [facility] Guide. Patient to review list and discuss with family. CM will follow-up with patient regarding preferences after discussing it with family. CM will continue to follow this patient and plan for a safe discharge.
[2022-09-02] MEDS: 0.9% Normal Saline 1,000 ML 150 ML IV (14:58)
[2022-09-02] MEDS: HEPARIN/D5w 25,000 UNITS 25,000 UNITS/250 ML IV.SOLN. 10 UNITS CONT INF (18:31)
[2022-09-02] MEDS: Ferrous Sulfate 325 MG Tablet 650 MG PO (21:27)
[2022-09-02 21:39] LABS: Partial Thromboplast Time 68.7 Seconds (24.1-36.2)
[2022-09-03] VITALS (29 sets, daily range): BP systolic 73–96; BP diastolic 36–74; PULSE 86–104; RESP 16–27; TEMP 36.3–37.1; O2SAT 89–100
[2022-09-03 03:32] LABS: Absolute Lymphocyte Count 0.38 X10^3/uL (0.83-4.51); Absolute Neutrophil Count 3.8 X10^3/uL (2.0-7.7); Basophil# 0.01 X10^3/uL; Basophil% 0.2 % (0-1); Eosinophil# 0.01 X10^3/uL; Eosinophils% 0.2 % (0-5); Hematocrit 23.9 % (37-47); Hemoglobin 7.1 g/dL (12.0-15.0); Lymphocyte # 0.38 X10^3/ul (0.83-4.51); Lymphocyte % 8.1 % (19-41); Mean Corp Hgb Conc 29.7 g/dL (32-36); Mean Corpuscular Hgb 27.3 pg (27.0-32.0); Mean Corpuscular Volume 91.9 fL (81-99); Mean Platelet Vol. 11.2 fl (6.2-12.0); Monocyte# 0.41 X10^3/uL; Monocyte% 8.8 % (0-10); NRBC Flagged by Analyzer 0 % (0-5); Neutrophil # 3.81 X10^3/uL (2.7-7.7); Neutrophil % 81.6 % (47-70); POSITIVE COUNT YES; POSITIVE DIFFERENTIAL YES; Platelet Count 99 K/mm3 (150-450); RBC Distribution Width CV 18.6 % (11.6-14.6); RBC Distribution Width SD 59.6 fl (35.1-43.9); White Blood Count 4.7 K/mm3 (4.4-11.0)
[2022-09-03 03:42] LABS: Partial Thromboplast Time 61.2 Seconds (24.1-36.2)
[2022-09-03 03:44] LABS: Anion Gap 7 (5-15); BUN 45 mg/dL (7-18); BUN/Creat Ratio 34.1 RATIO (10-20); Calcium,Total 7.1 mg/dL (8.5-10.1); Chloride 110 mmol/L (98-107); Creatinine, Serum 1.32 mg/dL (0.55-1.02); Differential Indicated SCAN CRITERIA MET; EST Glomerular Filtration Rate 41 mL/min (>60); Est Glom Filt Rate - Afr Amer 50 mL/min (>60); Glucose 152 mg/dL (74-106); Potassium 3.3 mmol/L (3.5-5.1); Sodium Level 138 mmol/L (136-145)
[2022-09-03 03:53] LABS: Differential Comment SCANNED
[2022-09-03] MEDS: Levothyroxine 100 MCG Tablet PO (06:20)
--- NOTE | 2022-09-03 08:25 | PN.HOSP_ITS ---
Subjective Subjective Did note some blood in her stool today. Otherwise feels well. Objective Data Objective Data Vital Signs: Vital Signs Temp Pulse Resp BP Pulse Ox O2 Del Method O2 Flow Rate 36.6 C 95 21 H 78/41 L 98 Nasal Cannula 2 09/03/22 07:00 09/03/22 07:00 09/03/22 07:00 09/03/22 07:00 09/03/22 07:00 09/03/22 07:00 09/03/22 07:00 Oxygen Flow Rate (L/min) 2 Oxygen Delivery Method Nasal Cannula Weight: 46 kg Body Mass Index (BMI) 18.5 Intake & Output: Intake and Output for Last 24 Hours 09/01/22 09/02/22 09/03/22 23:59 23:59 23:59 Intake Total 1008.53 / 1008.53 2982.84 / 3082.84 175 / 175 Output Total 750 / 750 650 / 1100 750 / 750 Balance 258.53 / 258.53 2332.84 / 1982.84 -575 / -575 Medical Nutrition Assessment Dietitian: Malnutrition Criteria Met Start: 09/01/22 14:40 Freq: Status: Active Protocol: Document 09/01/22 14:40 SLA (Rec: 09/01/22 14:40 SLA [id number]) Nutrition Malnutrition Evidence of Malnutrition Exists Yes Malnutrition (severe): Chronic Evidenced By Suboptimal Energy Intake ( Severe),Weight Loss (Severe), Physical Changes (Severe) Clinical Problem Chronic Disease or Condition Related Malnutrition Etiology related to chronic disease and inability to consume adequate nutrition to meet est nutritional needs Signs/Symptoms as evidenced by <75% of estimated nutritional needs for > 1 yr, obvious fat/muscle loss in face, torso, arms and legs; 4% wt loss in past few days Status Active Problem Recommendation Dietitian Recommendations/Changes Will continue liberal Regular diet - consider appetite stimulant if medically appropriate Will readdress option of oral nutrition supplementation at time of follow up to help increase elly/pro intake. Rec nutrition support if in accordance w/ pt/family wishes to help prevent further decline in pt nutritional status. Lab / Micro Data Result Diagrams: 09/03/22 03:23 09/03/22 03:23 Labs: Laboratory Results - last 24 hr 09/02/22 13:55: APTT 50.4 H 09/02/22 21:20: APTT 68.7 H 09/03/22 03:23: WBC 4.7, RBC 2.60 L, Hgb 7.1 L, Hct 23.9 L, MCV 91.9, MCH 27.3, MCHC 29.7 L, RDW Std Deviation 59.6 H, RDW Coeff of Uriel 18.6 H, Plt Count 99 L, MPV 11.2, Immature Gran % (Auto) 1.100 H, Neut % (Auto) 81.6 H, Lymph % (Auto) 8.1 L, [place] % (Auto) 8.8, Eos % (Auto) 0.2, Baso % (Auto) 0.2, Absolute Neuts (auto) 3.8, Absolute Lymphs (auto) 0.38 L, Nucleated RBC % 0, Differential Comment SCANNED 09/03/22 03:23: Sodium 138, Potassium 3.3 L, Chloride 110 H, Carbon Dioxide 21.0, Anion Gap 7, BUN 45 H, Creatinine 1.32 H, Estim Creat Clear Calc 25.10, Est GFR (MDRD) Af Amer 50 L, Est GFR (MDRD) Non-Af 41 L, BUN/Creatinine Ratio 34.1 H, Glucose 152 H, Calcium 7.1 L 09/03/22 03:23: APTT 61.2 H Physical Exam Const alert, oriented x3 and no apparent distress Constitutional Narrative: pale HEENT normocephalic, head/scalp atraumatic, hearing grossly normal bilaterally and moist oral mucous membranes Eyes PERRL and EOMs intact bilaterally Neck no lymphadenopathy and supple Resp normal respiratory effort, no retractions, no use of accessory muscles and clear to auscultation bilaterally Cardio regular rate, regular rhythm, S1 normal heart sound and S2 normal heart sound GI normal to inspection, nondistended, normoactive bowel sounds, soft to palpation, non-tender and non-distended Extremity normal to inspection Neuro Sensorium / Orientation: awake Psych affect normal Assessment & Plan Assessment/Plan (1) Hemorrhagic shock: PLAN: Resolved Admssion Hg 3.6. Transient normal blood pressure an outlier from all other hypotensive readings. DW pt's son, no pressors, no central line. Will administer 2 units of PRBCs for palliation. 09/01: will administer another unit of RBCs 09/02: Hg 7.1. 09/03: Hg 7.1. BP still low. BP chronically low and takes midodrine, will resume. Will give another unit of blood (4 total). Check AM cortisol. (2) MAX (acute kidney injury): PLAN: ATN v prerenal Continuing to improve after IVF and blood (3) Acute blood loss anemia: PLAN: Received 3 units Hg 7.1. Monitor for now. (4) Coagulopathy: PLAN: INR >19.5 on admission (Hospitalist service was contacted for admission prior to INR results were available) Pt received vitamin K and PCC. Now INR 1.2 Coagulopathy due to warfarin, but compounded by poor nutritional status. (5) GI bleed: PLAN: due to coagulopathy and history of duodenal ulcers continue IV PPI Pt declines any further endoscopy (6) Hospice care: PLAN: Discussed goals of care with the patient's son, Gildardo. Plan for comfort measures and palliation. If survives, then consult Hospice 09/01/22. Roxanol. 09/01: Patient improved and wishes to revoke hospice care and continue with medical treatment. Her CODE STATUS is now DNR Comfort Care arrest no intubation. (7) History of mitral valve replacement with mechanical valve: PLAN: Anticoagulated 09/03: resume warfarin. Start at 2mg/d. DC heparin gtt and start enoxaparin. (8) Severe protein-calorie malnutrition: PLAN: start supplements consult nutrition PLAN: Plan VTE prophylaxis: not indicated as pt is anticoagulated. Charges/Coding Visit Charges Inpatient E&M: 04817 Subs Hosp L2
[2022-09-03] MEDS: Venlafaxine HCl 75 MG Tablet 37.5 MG PO ×2 (09:30→20:57)
[2022-09-03] MEDS: Midodrine HCl 5 MG Tablet 10 MG PO ×3 (09:30→17:08)
[2022-09-03] MEDS: 0.9% Saline Lock 10 ML Syringe IV (09:38)
[2022-09-03] MEDS: Jantoven 2 MG Tablet PO (17:07)
[2022-09-03] MEDS: Enoxaparin 60 MG/0.6 ML Syringe 50 MG SC (17:13)
[2022-09-03] MEDS: Ferrous Sulfate 325 MG Tablet 650 MG PO (20:57)
[2022-09-04] VITALS (16 sets, daily range): BP systolic 85–104; BP diastolic 48–72; PULSE 82–97; RESP 16–23; TEMP 36.4–36.7; O2SAT 94–100
[2022-09-04] MEDS: Levothyroxine 100 MCG Tablet PO (05:35)
[2022-09-04 06:11] LABS: Absolute Lymphocyte Count 0.37 X10^3/uL (0.83-4.51); Absolute Neutrophil Count 4.2 X10^3/uL (2.0-7.7); Basophil# 0.01 X10^3/uL; Basophil% 0.2 % (0-1); Hematocrit 26.7 % (37-47); Hemoglobin 8.3 g/dL (12.0-15.0); Lymphocyte # 0.37 X10^3/ul (0.83-4.51); Lymphocyte % 7.1 % (19-41); Mean Corp Hgb Conc 31.1 g/dL (32-36); Mean Corpuscular Hgb 27.9 pg (27.0-32.0); Mean Corpuscular Volume 89.6 fL (81-99); Mean Platelet Vol. 10.7 fl (6.2-12.0); Monocyte# 0.56 X10^3/uL; Monocyte% 10.7 % (0-10); NRBC Flagged by Analyzer 0.4 % (0-5); Neutrophil # 4.22 X10^3/uL (2.7-7.7); POSITIVE DIFFERENTIAL YES; Platelet Count 114 K/mm3 (150-450); RBC Distribution Width CV 17.8 % (11.6-14.6); RBC Distribution Width SD 56.4 fl (35.1-43.9); Red Blood Count 2.98 M/mm3 (4.2-5.4); White Blood Count 5.2 K/mm3 (4.4-11.0)
[2022-09-04 06:29] LABS: International Normalized Ratio 1.4; Prothrombin Time (Protime)PT. 16.7 SECONDS (11.7-14.9)
[2022-09-04 06:30] LABS: Partial Thromboplast Time 40.5 Seconds (24.1-36.2)
[2022-09-04 06:39] LABS: ALB/GLOB Ratio 0.6 RATIO (0.9-2.4); AST(SGOT) 9 U/L (15-37); Alanine Aminotransfer ALT/SGPT < 6 U/L (13-56); Alkaline Phosphatase 83 U/L (45-117); Anion Gap 8 (5-15); BUN 37 mg/dL (7-18); BUN/Creat Ratio 29.8 RATIO (10-20); Calcium,Total 7.5 mg/dL (8.5-10.1); Chloride 111 mmol/L (98-107); Creatinine, Serum 1.24 mg/dL (0.55-1.02); EST Glomerular Filtration Rate 44 mL/min (>60); Est Glom Filt Rate - Afr Amer 54 mL/min (>60); Estimated Creatinine Clearance 26.71 ml/min; Globulin 3.1 g/dL (2.2-4.2); Glucose 137 mg/dL (74-106); Potassium 3.7 mmol/L (3.5-5.1); Protein, Total 5.1 g/dL (6.4-8.2); Sodium Level 139 mmol/L (136-145)
[2022-09-04 06:51] LABS: Differential Indicated SCAN CRITERIA MET
[2022-09-04 07:10] LABS: Anisocytosis 1+; Platelet Estimate SLT DEC (ADEQ)
[2022-09-04] MEDS: Midodrine HCl 5 MG Tablet 10 MG PO ×3 (09:31→16:39)
[2022-09-04] MEDS: Venlafaxine HCl 75 MG Tablet 37.5 MG PO ×2 (09:32→23:24)
--- NOTE | 2022-09-04 09:44 | PN.HOSP_ITS ---
Subjective Subjective Follow-up for GI bleed. Patient had stool mixed with blood, blood pressure on lower side but BP is chronically low for long time at least since 2017. Does not have dizziness. Does not want EGD or colonoscopy or want to see GI doctor. She states he has multiple scopes in the past and is tired. Objective Data Objective Data Vital Signs: Vital Signs Temp Pulse Resp BP Pulse Ox O2 Del Method O2 Flow Rate 97.8 F 87 18 97/53 L 98 Nasal Cannula 1 09/04/22 08:21 09/04/22 09:33 09/04/22 08:21 09/04/22 09:33 09/04/22 08:21 09/04/22 08:21 09/04/22 08:21 Oxygen Flow Rate (L/min) 1 Oxygen Delivery Method Nasal Cannula Weight: 101 lb 6.602 oz Body Mass Index (BMI) 18.5 Intake & Output: Intake and Output for Last 24 Hours 09/02/22 09/03/22 09/04/22 23:59 23:59 23:59 Intake Total 2982.84 / 3082.84 541.83 / 541.83 510 / 510 Output Total 650 / 1100 1050 / 1050 Balance 2332.84 / 1982.84 -508.17 / -508.17 510 / 510 Medical Nutrition Assessment Dietitian: Malnutrition Criteria Met Start: 09/01/22 14 :40 Freq: Status: Active Protocol: Document 09/03/22 11:21 RMA (Rec: 09/03/22 11:21 RMA [id number]) Nutrition Malnutrition Evidence of Malnutrition Exists Yes Malnutrition (severe): Chronic Evidenced By Suboptimal Energy Intake ( Severe),Weight Loss (Severe), Physical Changes (Severe) Clinical Problem Chronic Disease or Condition Related Malnutrition Etiology Severe protein-calorie malnutrition in the context of chronic disease related to inability to consume adequate nutrition to meet est nutritional needs/inadequate oral intake Signs/Symptoms as evidenced by <75% of estimated nutritional needs for > 1 yr, obvious fat/muscle loss in face, torso, arms and legs; 4% wt loss in less than 1 week prior to admission Status Active Problem Recommendation Dietitian Recommendations/Changes Will continue liberal Regular diet and encourage PO at meals . Will d/c ensure plus, pt dislikes ensure products due to cause diarrhea. Will add 240 ml chocolate carnation instant breakfast mixed with whole milk TID with meals; per pt request and acceptance. Lab / Micro Data Result Diagrams: 09/04/22 05:48 09/04/22 05:48 Labs: Laboratory Results - last 24 hr 08/31/22 10:05: Crossmatch See Detail 09/03/22 17:48: Blood Type A POSITIVE, Antibody Screen NEGATIVE, Crossmatch See Detail 09/04/22 05:48: PT 16.7 H, INR 1.4, APTT 40.5 H 09/04/22 05:48: WBC 5.2, RBC 2.98 L, Hgb 8.3 L, Hct 26.7 L, MCV 89.6, MCH 27.9, MCHC 31.1 L, RDW Std Deviation 56.4 H, RDW Coeff of Uriel 17.8 H, Plt Count 114 L, MPV 10.7, Immature Gran % (Auto) 1.000 H, Neut % (Auto) 81.0 H, Lymph % (Auto) 7.1 L, [place] % (Auto) 10.7 H, Eos % (Auto) 0.0, Baso % (Auto) 0.2, Absolute Neuts (auto) 4.2, Absolute Lymphs (auto) 0.37 L, Nucleated RBC % 0.4, Platelet Estimate SLT DEC, Anisocytosis 1+ 09/04/22 05:48: Sodium 139, Potassium 3.7, Chloride 111 H, Carbon Dioxide 20.0 L , Anion Gap 8, BUN 37 H, Creatinine 1.24 H, Estim Creat Clear Calc 26.71, Est GFR (MDRD) Af Amer 54 L, Est GFR (MDRD) Non-Af 44 L, BUN/Creatinine Ratio 29.8 H, Glucose 137 H, Calcium 7.5 L, Total Bilirubin 0.60, AST 9 L, ALT < 6 L, Alkaline Phosphatase 83, Total Protein 5.1 L, Albumin 2.0 L, Globulin 3.1, Albumin/Globulin Ratio 0.6 L 09/04/22 05:48: Cortisol 18.60 Physical Exam Narrative Physical exam General: Alert, Oriented x3, Cooperative, fatigue, BMI 18.5 kg/m? HEENT: Atraumatic, PERRLA, EOMI, Normocephalic Oral: No Gingival or Mucosal Lesions/ Ulcerations Neck: Supple, No JVD, Negative Carotid Bruits Lungs: Air entry diminished in bilateral lung bases. No crepitation/rhonchi Cardiovascular: Sinus regular rhythm, Normal S1, Normal S2, systolic murmur over LLSB and cardiac apex, mechanical valve sound. Abdomen: Bowel Sounds Present, Soft, Non Tender, Non-Distended : No renal angle tenderness. No suprapubic tenderness. Extremities: No edema, Capillary Refill Less than 3 Seconds Skin: No rashes, No breakdown Musculoskeletal: No Tenderness to Palpation of Joints or Extremities, moderate muscle atrophy of extremities. Neurological: Cranial nerves II-XII grossly intact, DTR 2+/4 and Symmetrical, Neuro grossly intact Psych/Mental Status: Flat affect. Assessment & Plan Assessment/Plan (1) Hemorrhagic shock: PLAN: Patient admitted with hemorrhagic shock, resolved Admssion Hg 3.6. I personally discussed with patient's son at the bedside. He does not want EGD colonoscopy, central line or pressors. Patient has seen multiple clerical supervisor in the past and she is tired and fatigue and does not want to see. DW pt's son, no pressors, no central line. 09/04: BP is chronically low since 2017. Patient is started on midodrine.Patient had total 4 units of PRBC transfusion. Cortisol level is normal. (2) MAX (acute kidney injury): PLAN: Creatinine 1.24. Improved from 1.71. Most likely prerenal from hemorrhagic shock. Continuing to improve after IVF and blood (3) Acute blood loss anemia: PLAN: Received 3 units Hg 7.1. Monitor for now. (4) Coagulopathy: PLAN: INR >19.5 on admission (Hospitalist service was contacted for admission prior to INR results were available) Pt received vitamin K and PCC. 09/04: INR 1.4. Warfarin dose increased to 3 mg daily. Continue enoxaparin supplement. Patient has mild blood in his stool. (5) GI bleed: PLAN: due to coagulopathy and history of duodenal ulcers continue IV PPI Pt declines any further endoscopy (6) Hospice care: PLAN: Discussed goals of care with the patient's son, Gildardo. Plan for comfort measures and palliation. On 09/01, patient improved and revoked hospice care and continue with medical treatment. Her CODE STATUS is now DNR Comfort Care arrest no intubation. (7) History of mitral valve replacement with mechanical valve: PLAN: Try to keep INR around 2.5 at lower level because of hemorrhagic shock and consistent GI bleed (8) Severe protein-calorie malnutrition: PLAN: start supplements consult nutrition PLAN: Plan VTE prophylaxis: not indicated as pt is anticoagulated. Charges/Coding Visit Charges Inpatient E&M: 94812 Subs Hosp L2
--- NOTE | 2022-09-04 15:29 | CASEMGMT ---
ANDRES ANGUIANO in to discuss discharge planning with patient. Patient states she is not sure she wants HHC at discharge. Patient states that son took list home with him. ANDRES ANGUIANO will follow-up with son prior to discharge regarding HHC.
[2022-09-04] MEDS: Enoxaparin 60 MG/0.6 ML Syringe 50 MG SC (16:38)
--- NOTE | 2022-09-04 17:40 | NURSING ---
1740 Called report to ANDRES Lr on [facility], [facility].
[2022-09-04] MEDS: 0.9% Saline Lock 10 ML Syringe IV (23:23)
[2022-09-04] MEDS: Ferrous Sulfate 325 MG Tablet 650 MG PO (23:24)
[2022-09-05] VITALS (11 sets, daily range): BP systolic 88–100; BP diastolic 52–63; PULSE 89–98; RESP 16–18; TEMP 36.6–37.2; O2SAT 93–98
[2022-09-05] MEDS: Levothyroxine 100 MCG Tablet PO (05:43)
[2022-09-05 07:02] LABS: Absolute Lymphocyte Count 0.46 X10^3/uL (0.83-4.51); Basophil# 0.01 X10^3/uL; Basophil% 0.2 % (0-1); Eosinophil# 0.01 X10^3/uL; Eosinophils% 0.2 % (0-5); Hematocrit 26.9 % (37-47); Hemoglobin 8.1 g/dL (12.0-15.0); Lymphocyte # 0.46 X10^3/ul (0.83-4.51); Mean Corp Hgb Conc 30.1 g/dL (32-36); Mean Corpuscular Hgb 26.9 pg (27.0-32.0); Mean Corpuscular Volume 89.4 fL (81-99); Mean Platelet Vol. 10.9 fl (6.2-12.0); Monocyte# 0.61 X10^3/uL; Monocyte% 11.9 % (0-10); NRBC Flagged by Analyzer 1.2 % (0-5); Neutrophil # 3.99 X10^3/uL (2.7-7.7); Neutrophil % 78.1 % (47-70); POSITIVE DIFFERENTIAL YES; Platelet Count 126 K/mm3 (150-450); RBC Distribution Width CV 18.2 % (11.6-14.6); Red Blood Count 3.01 M/mm3 (4.2-5.4); White Blood Count 5.1 K/mm3 (4.4-11.0)
[2022-09-05 07:07] LABS: Differential Indicated SCAN CRITERIA MET
[2022-09-05 07:37] LABS: ALB/GLOB Ratio 0.7 RATIO (0.9-2.4); AST(SGOT) 6 U/L (15-37); Alanine Aminotransfer ALT/SGPT 7 U/L (13-56); Albumin, Serum 2.1 g/dL (3.2-5.0); Alkaline Phosphatase 86 U/L (45-117); Anion Gap 8 (5-15); BUN 32 mg/dL (7-18); BUN/Creat Ratio 28.1 RATIO (10-20); Calcium,Total 7.7 mg/dL (8.5-10.1); Chloride 110 mmol/L (98-107); Creatinine, Serum 1.14 mg/dL (0.55-1.02); EST Glomerular Filtration Rate 49 mL/min (>60); Est Glom Filt Rate - Afr Amer 59 mL/min (>60); Estimated Creatinine Clearance 29.06 ml/min; Globulin 3.2 g/dL (2.2-4.2); Glucose 122 mg/dL (74-106); Potassium 3.9 mmol/L (3.5-5.1); Protein, Total 5.3 g/dL (6.4-8.2); Sodium Level 139 mmol/L (136-145)
[2022-09-05] MEDS: Venlafaxine HCl 75 MG Tablet 37.5 MG PO (08:05)
[2022-09-05] MEDS: Midodrine HCl 5 MG Tablet 10 MG PO ×2 (08:05→11:47)
[2022-09-05 08:36] LABS: International Normalized Ratio 1.8; Prothrombin Time (Protime)PT. 20.2 SECONDS (11.7-14.9)
[2022-09-05] MEDS: 0.9% Saline Lock 10 ML Syringe IV (11:02)
--- NOTE | 2022-09-05 11:02 | DCINST_ITS ---
Discharge Instructions Diet Discharge Diet: No restrictions Activity Discharge Activity: Return to Normal Activity and May Not Drive Weight Bearing Status: Weight bearing as tolerated Dressing / Incision Call your doctor if you observe: Fever of 101 or Higher, Coldness, Increased Pain, Numbness or Tingling, Change in Color, Inability to urinate, Inability to have a bowel movement, Using more than 1 pad per hour, Shortness of breath, Dizziness, Fainting spells, Swelling in the ankles, Chest pain, Prolonged hiccupping, Increased palpitations (irregular heartbeat) and Calf discomfort Follow Up Care When: IN 2 WEEKS Test Results: Test results from this visit will be discussed in further detail at your follow- up appointment, if applicable. Discharge Plan Admission Admit Date/Time: 08/31/22 11:39 Primary Reason for Your Visit: GI bleed Attending Provider: Edilson Wise Primary Care Provider: Kodak Muñoz Consulting Providers: Reggie Best Instructions Additional Instructions / Restrictions: Advised INR in 2 days on 09/07/22 to titrate the dose of warfarin. If INR is about 2.5, discontinue enoxaparin. Patient is high risk of GI bleed and she understands but does not want EGD colonoscopy. She revoked hospice Discharge Orders/Prescriptions Prescriptions: New warfarin [Jantoven] 3 mg Tablet 3 mg PO DINNER Qty: 30 0RF Rx Instructions: keep the INR between 2.5-3.0; IDEALLY about 2.50. metoprolol succinate 25 mg Tablet Extended Release 24 Hr 12.5 mg PO BID Qty: 60 0RF enoxaparin 60 mg/0.6 mL Syringe 50 mg subcut 1800 5 Days Qty: 2.5 0RF Continued ferrous sulfate 325 MG tablet 650 mg PO QHS Label Comments: Iron supplement folic acid 1 MG tablet 1 mg PO DAILY@0800 Label Comments: Supplement cyanocobalamin (vitamin B-12) 2,500 MCG tablet 2,500 mcg PO DAILY Label Comments: Supplement magnesium 250 MG tablet 250 mg PO DAILY cholecalciferol (vitamin D3) 1,000 UNIT capsule 1,000 unit PO DAILY venlafaxine 37.5 mg tablet 37.5 mg PO BID levothyroxine 100 mcg tablet 100 mcg PO DAILY Label Comments: take 1 tablet by mouth once daily midodrine 10 mg tablet 10 mg PO TID Qty: 90 0RF Rx Instructions: do not give last dose of day after 6PM or within 4 hrs of bedtime hydrocodone-acetaminophen 5-325 mg Tablet 1 tab PO Q4H PRN (Reason: Pain) oxycodone 5 mg Tablet 5 mg PO Q4H PRN (Reason: Pain) pantoprazole [Protonix] 40 mg tablet,delayed release (DR/EC) 40 mg PO BID Qty: 60 2RF Rx Instructions: advised TWICE DAILY FOR 8 WEEKS THEN ONCE DAILY potassium chloride 20 mEq tablet,ER particles/crystals 20 meq PO BID Qty: 180 3RF Changed furosemide 40 mg tablet 40 mg PO DAILY Qty: 30 3RF Rx Instructions: Take an additional 40 mg dose at 5 PM for increased leg swelling or weight gain 5 pounds in 1 week. Held warfarin 1 mg tablet 2 mg PO .COMPLEX Qty: 180 3RF Hold Instructions: Hold while patient is taking warfarin 3 mg daily. Protocol: Dose Management Condition: Sunday Dose/Route: 1 mg Instruction: 1 x 1 mg tablet Condition: Sunday Dose/Route: 2 mg Instruction: 1 x 2 mg tablet Condition: Sunday Dose/Route: 2 mg Instruction: 1 x 2 mg tablet Condition: Sunday Dose/Route: 2 mg Instruction: 1 x 2 mg tablet Condition: Dose/Route: 2 mg Instruction: 1 x 2 mg tablet Condition: Sunday Dose/Route: 2 mg Instruction: 1 x 2 mg tablet Condition: Sunday Dose/Route: 2 mg Instruction: 1 x 2 mg tablet Protocol Text: Adjustment Start Date: 08/10/22 INR Value: 2.8 INR Date: 08/10/22 Recheck Date: 08/31/22 Rx Instructions: 2 tablets (4mg) on , 1 tablets with a 2 mg tablet all other days of the week OR as DIRECTED; DOSE CHANGES OFTEN warfarin 2 mg tablet 2 mg PO .COMPLEX Qty: 180 3RF Hold Instructions: Hold while patient is taking 3 mg daily Protocol: Dose Management Condition: Sunday Dose/Route: 1 mg Instruction: 1 x 1 mg tablet Condition: Sunday Dose/Route: 2 mg Instruction: 1 x 2 mg tablet Condition: Sunday Dose/Route: 2 mg Instruction: 1 x 2 mg tablet Condition: Sunday Dose/Route: 2 mg Instruction: 1 x 2 mg tablet Condition: Dose/Route: 2 mg Instruction: 1 x 2 mg tablet Condition: Sunday Dose/Route: 2 mg Instruction: 1 x 2 mg tablet Condition: Sunday Dose/Route: 2 mg Instruction: 1 x 2 mg tablet Protocol Text: Adjustment Start Date: 08/10/22 INR Value: 2.8 INR Date: 08/10/22 Recheck Date: 08/31/22 Rx Instructions: 2 mg PO 2 tablets on (4mg), take with a 1 mg tablet to = 3mg all other days of the week OR as directed: DOSE CHANGES OFTEN; Referrals / Follow Up: Martin Galvan MD [Med Staff - Active Staff] - Within 1 Month Eddie Mendoza MD [Med Staff - Active Staff] - Within 1 Month Kodak Muñoz MD [Primary Care Provider] - Disposition Disposition (needs filled in before D/C Order can be placed): Home Health Service
[2022-09-05] MEDS: Metoprolol(XL)Succ 25 MG Tablet 12.5 MG PO (11:22)
--- NOTE | 2022-09-05 11:35 | CASEMGMT ---
Addendum entered by Iman Azar 09/05/22 14:27: Noted pt is ordered lovenox. TC to [facility] [place], cost is $48. ANDRES ANGUIANO in to pt room, pt states she has had lovenox before and given it to herself. She denies any issues with this. Pt to dc home with family assistance. Addendum entered by Iman Azar 09/05/22 13:11: Pt did not qualify for home oxygen. TC to Rachel at [facility] to make aware. Original Note: ANDRES ANGUIANO in to pt room, pt states she does not feel that she needs HHC. She does not want this ANDRES ANGUIANO to call her son to discuss. Pt states that her sons come for several hours per day to check in on her and there are 3 of them. Pt states she has oxygen through [facility] and she wears 2L at night. Pt states she does not have a portable tank to go home on. TC to [facility], spoke with Rachel who states that pt had [facility] in 2019 but they picked up their equipment. She states she does not show that pt has oxygen. ANDRES ANGUIANO back into the pt room, pt states that she is using her 's concentrator who has passed. [facility] states that [facility] did have oxygen and it shows that they did not pepper picker the equipment. States pt needs to be treated as a new set up. Pt states she does want to use [facility] and is aware of this. Rachel is aware pt will need portable tank as well. Updated pt nurse.
--- NOTE | 2022-09-05 11:57 | PCM.DC.SUM ---
Providers Date of Admission: 08/31/22 Date of Discharge: 09/05/22 Primary Care Physician: Dr. Kodak Muñoz MD Reason For Visit: GI BLEED, ANEMIA, END OF LIFE CARE Diagnosis Discharge Diagnosis (1) Hemorrhagic shock: Status: Acute Code(s): R57.8 - Other shock Plan: This is a 31-year-old female was admitted with generalized weakness, rectal bleeding for 4 days, feeling lightheaded, hypotensive BP 69/24, H&H 3.6/12.2%. Platelet 146,000. Patient was admitted with hemorrhagic shock. Patient admitted with hemorrhagic shock, resolved Admssion Hg 3.6. I personally discussed with patient's son at the bedside. She does not want EGD colonoscopy, central line or pressors. Patient has seen multiple computer equipment repairer in the past and she is tired and fatigue and does not want to see computer equipment repairer DW pt's son, no pressors, no central line. 09/04: BP is chronically low since 2017. Patient is started on midodrine.Patient had total 4 units of PRBC transfusion. Cortisol level is normal. 09/05: Blood pressure is not low 90s but she needs to take metoprolol succinate to keep heart rate in control. (2) MAX (acute kidney injury): Status: Acute Code(s): N17.9 - Acute kidney failure, unspecified Plan: Creatinine 1.24. Improved from 1.71. Most likely prerenal from hemorrhagic shock. Continuing to improve after IVF and blood 09/05: BUN/and 32/1.14. Estimated creatinine clearance 29.06. She has CKD [id number] (3) Acute blood loss anemia: Status: Acute Code(s): D62 - Acute posthemorrhagic anemia Plan: Received 3 units Hg 7.1. Monitor for now. 09/05 her last hemoglobin is 8.1 g. Continue ferrous sulfate, B12 and folic acid and ascorbic acid. (4) Coagulopathy: Status: Acute Code(s): D68.9 - Coagulation defect, unspecified Plan: INR >19.5 on admission (Hospitalist service was contacted for admission prior to INR results were available) Pt received vitamin K and PCC. 09/04: INR 1.4. Warfarin dose increased to 3 mg daily. Continue enoxaparin supplement. Patient has mild blood in his stool. (5) GI bleed: Status: Acute Code(s): K92.2 - Gastrointestinal hemorrhage, unspecified Plan: due to coagulopathy and history of duodenal ulcers continue IV PPI Pt declines any further endoscopy (6) Hospice care: Status: Acute Code(s): Z51.5 - Encounter for palliative care Plan: Discussed goals of care with the patient's son, Gildardo. Plan for comfort measures and palliation. On 09/01, patient improved and revoked hospice care and continue with medical treatment. Her CODE STATUS is now DNR Comfort Care arrest no intubation. 09/05: Patient is discharged with home health care Discharge medication reconciliation done. Discharge follow-up instructions completed. Discharge process discussed with the patient and all questions were answered to patient's satisfaction. Total time spent, exact 35 minutes on discharge meds reconciliation, examination, coordination of care with nurses and ancillary staff, review of imaging and blood test and discussion with the patient on follow-up instructions. (7) History of mitral valve replacement with mechanical valve: Status: Acute Code(s): Z95.2 - Presence of prosthetic heart valve Plan: Try to keep INR around 2.5 at lower level because of hemorrhagic shock and consistent GI bleed 09/05: Discharged on enoxaparin and warfarin. Monitor INR in 2 days. (8) Severe protein-calorie malnutrition: Status: Acute Code(s): E43 - Unspecified severe protein-calorie malnutrition Plan: start supplements consult nutrition Plan VTE prophylaxis: not indicated as pt is anticoagulated. Medications at Discharge Home Medications ferrous sulfate 325 mg (65 mg iron) tablet 650 mg PO QHS SUPPLEMENT 04/02/15 folic acid 1 mg tablet 1 mg PO DAILY@0800 supplement 04/30/15 cyanocobalamin (vitamin B-12) 2,500 mcg tablet 2,500 mcg PO DAILY vitamin 06/10/16 magnesium 250 mg tablet 250 mg PO DAILY supplement 05/24/17 cholecalciferol (vitamin D3) 25 mcg (1,000 unit) capsule 1,000 unit PO DAILY SUPPLEMENT 04/07/19 levothyroxine 100 mcg tablet 100 mcg PO DAILY THYROID 01/19/21 warfarin 1 mg tablet 2 mg PO .COMPLEX 2nd rx for dose clarification #180 tabs 01/27/21 venlafaxine 37.5 mg tablet 37.5 mg PO BID DEPRESSION 05/03/21 warfarin 2 mg tablet 2 mg PO .COMPLEX 2nd RX for dose clarification #180 tabs 03/06/22 potassium chloride 20 mEq tablet,extended release(part/cryst) 20 meq PO BID SUPPLEMENT #180 tabs 03/15/22 midodrine 10 mg tablet 10 mg PO TID #90 tabs 04/03/22 hydrocodone-acetaminophen 5-325mg 5mg-325mg 1 tab PO Q4H PRN Pain 09/03/22 oxycodone 5 mg tablet 5 mg PO Q4H PRN Pain 09/03/22 ascorbic acid (vitamin C) 500 mg tablet 500 mg PO BID #60 tabs 09/05/22 enoxaparin 60 mg/0.6 mL subcutaneous syringe 50 mg (0.5 mL) subcut 1800 5 days #2.5 mL 09/05/22 furosemide 40 mg tablet 40 mg PO DAILY #30 tabs 09/05/22 metoprolol succinate 25 mg tablet,extended release 24 hr 12.5 mg PO BID #60 tabs 09/05/22 pantoprazole 40 mg tablet,delayed release (Protonix) 40 mg PO BID #60 tabs 09/05/22 warfarin 3 mg tablet (Jantoven) 3 mg PO DINNER #30 tabs 09/05/22 Physical Exam Narrative Physical exam Seen and examined on the day of discharge General: Alert, Oriented x3, Cooperative, fatigue, BMI 18.5 kg/m? HEENT: Atraumatic, PERRLA, EOMI, Normocephalic Oral: No Gingival or Mucosal Lesions/ Ulcerations Neck: Supple, No JVD, Negative Carotid Bruits Lungs: Air entry diminished in bilateral lung bases. No crepitation/rhonchi Cardiovascular: Sinus regular rhythm, Normal S1, Normal S2, systolic murmur over LLSB and cardiac apex, mechanical valve sound. Abdomen: Bowel Sounds Present, Soft, Non Tender, Non-Distended : No renal angle tenderness. No suprapubic tenderness. Extremities: No edema, Capillary Refill Less than 3 Seconds Skin: No rashes, No breakdown Musculoskeletal: No Tenderness to Palpation of Joints or Extremities, moderate muscle atrophy of extremities. Neurological: Cranial nerves II-XII grossly intact, DTR 2+/4 and Symmetrical, Neuro grossly intact Psych/Mental Status: Flat affect. Medical Records Data Medical Nutrition Assessment Dietitian: Malnutrition Criteria Met Start: 09/01/22 14:40 Freq: Status: Active Protocol: Document 09/03/22 11:21 RMA (Rec: 09/03/22 11:21 RMA [id number]) Nutrition Malnutrition Evidence of Malnutrition Exists Yes Malnutrition (severe): Chronic Evidenced By Suboptimal Energy Intake ( Severe),Weight Loss (Severe), Physical Changes (Severe) Clinical Problem Chronic Disease or Condition Related Malnutrition Etiology Severe protein-calorie malnutrition in the context of chronic disease related to inability to consume adequate nutrition to meet est nutritional needs/inadequate oral intake Signs/Symptoms as evidenced by <75% of estimated nutritional needs for > 1 yr, obvious fat/muscle loss in face, torso, arms and legs; 4% wt loss in less than 1 week prior to admission Status Active Problem Recommendation Dietitian Recommendations/Changes Will continue liberal Regular diet and encourage PO at meals . Will d/c ensure plus, pt dislikes ensure products due to cause diarrhea. Will add 240 ml chocolate carnation instant breakfast mixed with whole milk TID with meals; per pt request and acceptance. Weight / BMI Weight Weight: 101 lb 6.602 oz Body Mass Index (BMI) 18.5 ABG / Lab / Microbiology Data Result Diagrams: 09/05/22 06:25 09/05/22 06:25 Laboratory: Laboratory Results - last 24 hr 09/05/22 06:25: WBC 5.1, RBC 3.01 L, Hgb 8.1 L, Hct 26.9 L, MCV 89.4, MCH 26.9 L, MCHC 30.1 L, RDW Std Deviation 58.0 H, RDW Coeff of Uriel 18.2 H, Plt Count 126 L, MPV 10.9, Immature Gran % (Auto) 0.600, Neut % (Auto) 78.1 H, Lymph % (Auto) 9.0 L, [place] % (Auto) 11.9 H, Eos % (Auto) 0.2, Baso % (Auto) 0.2, Absolute Neuts (auto) 4.0, Absolute Lymphs (auto) 0.46 L, Nucleated RBC % 1.2, Differential Comment COMMENT 09/05/22 06:25: PT 20.2 H, INR 1.8 09/05/22 06:25: Sodium 139, Potassium 3.9, Chloride 110 H, Carbon Dioxide 21.0, Anion Gap 8, BUN 32 H, Creatinine 1.14 H, Estim Creat Clear Calc 29.06, Est GFR (MDRD) Af Amer 59 L, Est GFR (MDRD) Non-Af 49 L, BUN/Creatinine Ratio 28.1 H, Glucose 122 H, Calcium 7.7 L, Total Bilirubin 0.40, AST 6 L, ALT 7 L, Alkaline Phosphatase 86, Total Protein 5.3 L, Albumin 2.1 L, Globulin 3.2, Albumin/Globulin Ratio 0.7 L D/C Instructions Discharge Diet: No restrictions Weight Bearing Status: Weight bearing as tolerated Call your doctor if you observe: Fever of 101 or Higher, Coldness, Increased Pain, Numbness or Tingling, Change in Color, Inability to urinate, Inability to have a bowel movement, Using more than 1 pad per hour, Shortness of breath, Dizziness, Fainting spells, Swelling in the ankles, Chest pain, Prolonged hiccupping, Increased palpitations (irregular heartbeat) and Calf discomfort When: IN 2 WEEKS Meaningful Use Info Meaningful Use Diagnoses (Choose all that apply): None applicable Discharge Plan Admission Admit Date/Time: 08/31/22 11:39 Primary Reason for Your Visit: GI bleed Attending Provider: Edilson Wise Primary Care Provider: Kodak Muñoz Consulting Providers: Reggie Best Instructions Additional Instructions / Restrictions: Advised INR in 2 days on 09/07/22 to titrate the dose of warfarin. If INR is about 2.5, discontinue enoxaparin. Patient is high risk of GI bleed and she understands but does not want EGD colonoscopy. She revoked hospice Discharge Orders/Prescriptions Prescriptions: New warfarin [Jantoven] 3 mg Tablet 3 mg PO DINNER Qty: 30 0RF Rx Instructions: keep the INR between 2.5-3.0; IDEALLY about 2.50. metoprolol succinate 25 mg Tablet Extended Release 24 Hr 12.5 mg PO BID Qty: 60 0RF enoxaparin 60 mg/0.6 mL Syringe 50 mg subcut 1800 5 Days Qty: 2.5 0RF ascorbic acid (vitamin C) 500 mg tablet 500 mg PO BID Qty: 60 2RF Continued ferrous sulfate 325 MG tablet 650 mg PO QHS Label Comments: Iron supplement folic acid 1 MG tablet 1 mg PO DAILY@0800 Label Comments: Supplement cyanocobalamin (vitamin B-12) 2,500 MCG tablet 2,500 mcg PO DAILY Label Comments: Supplement magnesium 250 MG tablet 250 mg PO DAILY cholecalciferol (vitamin D3) 1,000 UNIT capsule 1,000 unit PO DAILY venlafaxine 37.5 mg tablet 37.5 mg PO BID levothyroxine 100 mcg tablet 100 mcg PO DAILY Label Comments: take 1 tablet by mouth once daily midodrine 10 mg tablet 10 mg PO TID Qty: 90 0RF Rx Instructions: do not give last dose of day after 6PM or within 4 hrs of bedtime hydrocodone-acetaminophen 5-325 mg Tablet 1 tab PO Q4H PRN (Reason: Pain) oxycodone 5 mg Tablet 5 mg PO Q4H PRN (Reason: Pain) pantoprazole [Protonix] 40 mg tablet,delayed release (DR/EC) 40 mg PO BID Qty: 60 2RF Rx Instructions: advised TWICE DAILY FOR 8 WEEKS THEN ONCE DAILY potassium chloride 20 mEq tablet,ER particles/crystals 20 meq PO BID Qty: 180 3RF Changed furosemide 40 mg tablet 40 mg PO DAILY Qty: 30 3RF Rx Instructions: Take an additional 40 mg dose at 5 PM for increased leg swelling or weight gain 5 pounds in 1 week. Held warfarin 1 mg tablet 2 mg PO .COMPLEX Qty: 180 3RF Hold Instructions: Hold while patient is taking warfarin 3 mg daily. Protocol: Dose Management Condition: Sunday Dose/Route: 1 mg Instruction: 1 x 1 mg tablet Condition: Sunday Dose/Route: 2 mg Instruction: 1 x 2 mg tablet Condition: Sunday Dose/Route: 2 mg Instruction: 1 x 2 mg tablet Condition: Sunday Dose/Route: 2 mg Instruction: 1 x 2 mg tablet Condition: Dose/Route: 2 mg Instruction: 1 x 2 mg tablet Condition: Sunday Dose/Route: 2 mg Instruction: 1 x 2 mg tablet Condition: Sunday Dose/Route: 2 mg Instruction: 1 x 2 mg tablet Protocol Text: Adjustment Start Date: 08/10/22 INR Value: 2.8 INR Date: 08/10/22 Recheck Date: 08/31/22 Rx Instructions: 2 tablets (4mg) on , 1 tablets with a 2 mg tablet all other days of the week OR as DIRECTED; DOSE CHANGES OFTEN warfarin 2 mg tablet 2 mg PO .COMPLEX Qty: 180 3RF Hold Instructions: Hold while patient is taking 3 mg daily Protocol: Dose Management Condition: Sunday Dose/Route: 1 mg Instruction: 1 x 1 mg tablet Condition: Sunday Dose/Route: 2 mg Instruction: 1 x 2 mg tablet Condition: Sunday Dose/Route: 2 mg Instruction: 1 x 2 mg tablet Condition: Sunday Dose/Route: 2 mg Instruction: 1 x 2 mg tablet Condition: Dose/Route: 2 mg Instruction: 1 x 2 mg tablet Condition: Sunday Dose/Route: 2 mg Instruction: 1 x 2 mg tablet Condition: Sunday Dose/Route: 2 mg Instruction: 1 x 2 mg tablet Protocol Text: Adjustment Start Date: 08/10/22 INR Value: 2.8 INR Date: 08/10/22 Recheck Date: 08/31/22 Rx Instructions: 2 mg PO 2 tablets on (4mg), take with a 1 mg tablet to = 3mg all other days of the week OR as directed: DOSE CHANGES OFTEN; Referrals / Follow Up: Martin Galvan MD [Med Staff - Active Staff] - Within 1 Month Eddie Mendoza MD [Med Staff - Active Staff] - Within 1 Month Kodak Muñoz MD [Primary Care Provider] - Disposition Disposition (needs filled in before D/C Order can be placed): Home Health Service Charges/Coding Visit Charges Inpatient E&M: 25241 Disch Hosp >30min
--- NOTE | 2022-09-05 13:08 | NURSING ---
SaO2 96%on 1L O2 at rest 95% on room air at rest 94-95% on room air sitting 93-94% on room air ambulating in room Pt c/o dizziness initially upon sitting on edge of bed. BP 98/52 P93. Dizziness subsided after sitting for a short time. Pt educated on slow movements and waiting until symptoms pass to stand. ANDRES Comer notified.
== END 2022-09-05 14:30 | disposition home or self-care (01) | DRG 871 ==
LOC: ED 11:51 → PCU 12:10 → MS3 09-04 18:13
PROVIDERS: Hospitalist; Emergency Provider Emergency Medicine; PCP Internal Medicine; Visit Provider Internal Medicine
DX: R57.8 Other shock (principal); E43 Unspecified severe protein-calorie malnutrition; D62 Acute posthemorrhagic anemia; N17.9 Acute kidney failure, unspecified; I50.32 Chronic diastolic (congestive) heart failure; D68.9 Coagulation defect, unspecified; K62.5 Hemorrhage of anus and rectum; Z68.1 Body mass index [BMI] 19.9 or less, adult; D63.1 Anemia in chronic kidney disease; E11.22 Type 2 diabetes mellitus with diabetic chronic kidney disease; J44.9 Chronic obstructive pulmonary disease, unspecified; F17.210 Nicotine dependence, cigarettes, uncomplicated; E78.5 Hyperlipidemia, unspecified; N18.9 Chronic kidney disease, unspecified; Z51.5 Encounter for palliative care; Z79.01 Long term (current) use of 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; Z95.2 Presence of prosthetic heart valve
CPT/HCPCS: 36415; 70450; 80048; 80053; 82533; 83605; 85014; 85018; 85025; 85610; 85730; 86850; 86900; 86901; 86902; 86920; 86922; 93005; 97110; 97162; 97166; 97530; 97535; 97802; 97803; 99285; 99406; J7030; J7040; J7168; P9016; A4216; J2354; J3490

== ENCOUNTER 2022-09-12 07:32 | Outpatient (RCR) | payer SELFPAY ==
[2022-08-12 22:43] VITALS: BMI 20.8
[2022-09-07 08:31] LABS: International Normalized Ratio 2.3; Prothrombin Time (Protime)PT. 25.2 SECONDS (11.7-14.9)
[2022-09-12 08:59] LABS: International Normalized Ratio 2.7; Prothrombin Time (Protime)PT. 28.6 SECONDS (11.7-14.9)
== END 2022-09-12 08:30 | disposition home or self-care (01) ==
LOC: LAB 07:32
PROVIDERS: Family Provider Internal Medicine; PCP Internal Medicine; Referring Provider Internal Medicine Cardiovascular Disease; Visit Provider Internal Medicine Cardiovascular Disease
DX: I48.11 Longstanding persistent atrial fibrillation (principal); Z95.2 Presence of prosthetic heart valve; Z79.01 Long term (current) use of 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
CPT/HCPCS: 36415; 85610

== ENCOUNTER 2022-09-20 13:55 | Inpatient (IN) | payer MEDICARE, SELFPAY ==
[2022-09-20] VITALS (22 sets, daily range): BP systolic 65–102; BP diastolic 40–81; PULSE 75–100; RESP 12–30; TEMP 34.5–36.8; O2SAT 91–100; BMI 18.3
--- NOTE | 2022-09-20 14:19 | EKG12_ITS ---
Test Reason : Blood Pressure : / mmHG Vent. Rate : 088 BPM Atrial Rate : 000 BPM P-R Int : 000 ms QRS Dur : 070 ms QT Int : 404 ms P-R-T Axes : 000 -72 047 degrees QTc Int : 488 ms Atrial fibrillation Left axis deviation Low voltage QRS Possible Lateral infarct , age undetermined Abnormal ECG Confirmed by CIARA GUILLEN, HENRIETTA ([id number]), medical transcription editor HIRAM GREENE ([id number]) on 09/22/2022 10:08:31 AM Referred By: VLADIMIR Confirmed By:HENRIETTA URBINA MD
[2022-09-20] MEDS: 0.9% Normal Saline 1,000 ML 1000 ML IV (14:25)
[2022-09-20 14:32] LABS: Absolute Neutrophil Count 6.1 X10^3/uL (2.0-7.7); Hematocrit 15.9 % (37-47); Lymphocyte % 10.7 % (19-41); Mean Corp Hgb Conc 30.2 g/dL (32-36); Mean Corpuscular Hgb 31.4 pg (27.0-32.0); Mean Corpuscular Volume 103.9 fL (81-99); Mean Platelet Vol. 11.2 fl (6.2-12.0); Monocyte# 0.51 X10^3/uL; Monocyte% 6.8 % (0-10); NRBC Flagged by Analyzer 0.3 % (0-5); Neutrophil # 6.12 X10^3/uL (2.7-7.7); Neutrophil % 81.8 % (47-70); POSITIVE COUNT YES; POSITIVE MORPHOLOGY YES; Platelet Count 226 K/mm3 (150-450); RBC Distribution Width CV 22.6 % (11.6-14.6); RBC Distribution Width SD 76.1 fl (35.1-43.9); Red Blood Count 1.53 M/mm3 (4.2-5.4); White Blood Count 7.5 K/mm3 (4.4-11.0)
[2022-09-20 14:35] LABS: Differential Indicated SCAN CRITERIA MET; Hemoglobin 4.8 g/dL (12.0-15.0)
[2022-09-20 14:41] LABS: International Normalized Ratio 9.7
[2022-09-20 15:04] LABS: ALB/GLOB Ratio 0.7 RATIO (0.9-2.4); AST(SGOT) 18 U/L (15-37); Alanine Aminotransfer ALT/SGPT 10 U/L (13-56); Albumin, Serum 2.3 g/dL (3.2-5.0); Alkaline Phosphatase 81 U/L (45-117); Anion Gap 12 (5-15); BUN 62 mg/dL (7-18); Calcium,Total 8.2 mg/dL (8.5-10.1); Chloride 110 mmol/L (98-107); Creatinine, Serum 2.07 mg/dL (0.55-1.02); EST Glomerular Filtration Rate 25 mL/min (>60); Est Glom Filt Rate - Afr Amer 30 mL/min (>60); Estimated Creatinine Clearance 15.78 ml/min; Globulin 3.5 g/dL (2.2-4.2); Glucose 182 mg/dL (74-106); Lactic Acid 6.9 mmol/L (0.4-1.9); Potassium 6.1 mmol/L (3.5-5.1); Protein, Total 5.8 g/dL (6.4-8.2); Sodium Level 139 mmol/L (136-145)
[2022-09-20 15:05] LABS: Anisocytosis 1+
[2022-09-20] MEDS: Midodrine HCl 5 MG Tablet 10 MG PO (15:39)
--- NOTE | 2022-09-20 16:10 | PCM.HP.STD ---
HPI - General General Date of Admission: 09/20/22 Date of Service: 09/20/22 Chief Complaint: BRBPR->melanotic stools. 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 Patient denies any marked abdominal pain associated nor any recent nausea or emesis nor fevers or chills. Work-up in the ED included T98.6, heart rate 90, initial BP 65/46 with most recent repeat 84/62 however she became more hypotensive, respiratory rate 28, 100% on 2 L nasal cannula, CBC with WC 7.5, hemoglobin 4.8, MCV 103.9, platelet 226 with lymphopenia, coags with INR 9.7, CMP with sodium 139, potassium 6.1, chloride 110, carbon oxide 17, anion gap 12, BUN/creatinine 62/2.07, glucose 182, lactic acid 6.9, calcium 8.2, hepatic profile not marked appearing, urinalysis not marked appearing, type and cross for planned administration 2 units with 2 units on hold initiated per ED physician. In the ED patient respiratory status became concerning with ABG obtained with pH 7.28, bicarb 14.2, PCO2 30.5, PO2 [address] which was continued, central line eventually placed and following discussions per ED physician with the hay rake operator as well as gastroenterology with decision to administer blood but fortunately patient's matched blood did become immediately available and she was initiated on at least 2 unit PRBC with 2 additional backup, 1 pack FFP, administered IV sodium bicarb push, IV vitamin K 5 mg x 1, Protonix 80 mg IV bolus, octreotide 0.1 mg IV x1, midodrine 10 mg p.o. x1, Rocephin 1 g IV x1 as well as 1 L normal saline bolus. [facility], [facility] Medical History Abdominal distension Acute GI bleeding Adenomatous colon polyp Anemia Anemia in chronic kidney disease Anemia requiring transfusions Anxiety Atrial fibrillation Bilateral leg edema Black stool Cardiac pacemaker in situ Carotid bruit Cholelithiasis Chronic gastrointestinal bleeding Chronic heart failure with preserved ejection fraction (HFpEF) Cirrhosis Cirrhosis of liver with ascites CKD (chronic kidney disease) COPD (chronic obstructive pulmonary disease) Depression Depression Diverticulosis GERD (gastroesophageal reflux disease) GI bleed GI bleeding HLD (hyperlipidemia) Hypokalemia Hypotension Hypotension Iron deficiency Irregular heart beat 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 Longstanding persistent atrial fibrillation Neutropenia Nicotine dependence Non-rheumatic aortic stenosis Non-rheumatic tricuspid valve insufficiency Nonrheumatic mitral (valve) insufficiency Pancytopenia Pericardial effusion Pleural effusion PVC's (premature ventricular contractions) Secondary pulmonary hypertension Severe protein-calorie malnutrition Smoker Supratherapeutic INR Tachycardia-bradycardia syndrome Thrombocytopenia Thrombocytopenia Type 2 diabetes mellitus Typical atrial flutter Home Medications ferrous sulfate 325 mg (65 mg iron) tablet 325 mg PO BID SUPPLEMENT 04/02/15 [History Last Taken 09/20/22] folic acid 1 mg tablet 1 mg PO DAILY@0800 supplement 04/30/15 [History Last Taken 09/18/22] cyanocobalamin (vitamin B-12) 2,500 mcg tablet 2,500 mcg PO DAILY vitamin 06/10/16 [History Last Taken 09/20/22] magnesium 250 mg tablet 250 mg PO DAILY supplement 05/24/17 [History Last Taken 09/19/22] cholecalciferol (vitamin D3) 25 mcg (1,000 unit) capsule 1,000 unit PO DAILY SUPPLEMENT 04/07/19 [History Last Taken 09/19/22] levothyroxine 100 mcg tablet 100 mcg PO DAILY THYROID 01/19/21 [History Last Taken 09/19/22] venlafaxine 37.5 mg tablet 37.5 mg PO QHS DEPRESSION 05/03/21 [History Last Taken 09/19/22] potassium chloride 20 mEq tablet,extended release(part/cryst) 20 meq PO BID SUPPLEMENT #180 tabs 03/15/22 [Rx Last Taken 09/20/22] midodrine 10 mg tablet 10 mg PO TID #90 tabs 04/03/22 [Rx Last Taken Unknown] oxycodone 5 mg tablet 5 mg PO Q4H PRN Pain 09/03/22 [History Last Taken 09/19/22] ascorbic acid (vitamin C) 500 mg tablet 500 mg PO BID #60 tabs 09/05/22 [Rx Last Taken 09/20/22] furosemide 40 mg tablet 40 mg PO DAILY #30 tabs 09/05/22 [Rx Last Taken 09/20/22] metoprolol succinate 25 mg tablet,extended release 24 hr 12.5 mg PO BID #60 tabs 09/05/22 [Rx Last Taken 09/20/22] pantoprazole 40 mg tablet,delayed release (Protonix) 40 mg PO BID #60 tabs 09/05/22 [Rx Last Taken 09/20/22] warfarin 2 mg tablet 2 mg PO DAILY BLOOD THINNER 09/20/22 [History Last Taken 09/19/22] Allergy/AdvReac Type Severity Reaction Status Date / Time amiodarone AdvReac vomiting, Verified 08/31/22 10:15 poor balance, dizziness digoxin AdvReac nausea, Verified 08/31/22 10:15 dry heaves lorazepam [From Ativan] AdvReac Unknown Verified 08/31/22 10:15 meloxicam [From Mobic] AdvReac Unknown Verified 08/31/22 10:15 nortriptyline HCl AdvReac Unknown Verified 08/31/22 10:15 [From Pamelor] zolpidem tartrate AdvReac Unknown Verified 08/31/22 10:15 [From Ambien] Family History Mother Cancer lung and renal Father Heart disease Surgical History History of cardioversion (10/2015) History of incision of pericardium History of left heart catheterization (07/17/08) History of mitral valve replacement with mechanical valve (07/22/08) History of tubal ligation Presence of permanent cardiac pacemaker (08/30/18) Social History Smoking Status: Current every day smoker tobacco type: cigarettes Tobacco: How many years used: 60 alcohol intake: never substance use type: does not use caffeine: Yes Type: carbonated beverages what type of physical activity do you participate in: none seatbelt use: always do you feel safe at home: Yes ROS ROS Narrative Admission Review of Systems: CONSTITUTIONAL: No weight loss, fever, chills, + weakness or fatigue. HEENT: Eyes: No visual loss, blurred vision, double vision or yellow sclerae. Ears, Nose, Throat: No hearing loss, sneezing, congestion, runny nose or sore throat. SKIN: No rash or itching, lesions, wounds. CARDIOVASCULAR: + Lightheadedness and dizziness. No chest pain, chest pressure or chest discomfort, palpitations, edema, orthopnea, syncopal events. RESPIRATORY: + shortness of breath, No cough or sputum, wheezing, hemoptysis. GASTROINTESTINAL: + anorexia, nausea without emesis, bright red blood per rectum eventually transitioning to melanotic appearing stools. No associated abdominal pain. GENITOURINARY: No dysuria, frequency, urgency or retention. NEUROLOGICAL: + Progressive fatigue and weakness as well as lethargy with onset of shock, lightheadedness and dizziness. No headache, dizziness, syncope, paralysis, ataxia, numbness or tingling in the extremities, focal weakness, change in bowel or bladder control, seizure. MUSCULOSKELETAL: + muscle, back pain, joint pain or stiffness. HEMATOLOGIC: + anemia, bleeding or bruising. LYMPHATICS: No enlarged nodes. No history of splenectomy. PSYCHIATRIC: + history of depression or anxiety. ENDOCRINOLOGIC: + reports of sweating, cold or heat intolerance. No polyuria or polydipsia. ALLERGIES: No history of asthma, hives, eczema or rhinitis. Vital Signs Vital Signs Vital Signs: 09/20/22 13:58 09/20/22 14:22 09/20/22 15:26 Temperature 96.8 F L Temperature Source Temporal Pulse Rate 90 89 76 Respiratory Rate 28 H 25 H 19 H Blood Pressure 65/46 L 84/62 L 98/52 L Blood Pressure Mean 52 69 67 Pulse Ox 100 100 99 Oxygen Delivery Method Nasal Cannula Nasal Cannula Nasal Cannula Oxygen Flow Rate (L/min) 2 2 3 Fraction of Inspired Oxygen (FIO2) 09/20/22 15:31 09/20/22 15:53 09/20/22 16:09 Temperature Temperature Source Pulse Rate 75 89 81 Respiratory Rate 24 H 27 H Blood Pressure 83/40 L 85/43 L 89/59 L Blood Pressure Mean 54 57 69 Pulse Ox 100 93 Oxygen Delivery Method Bi-pap Bi-pap Oxygen Flow Rate (L/min) 30 Fraction of Inspired Oxygen (FIO2) 30 Weight Weight: 100 lb Body Mass Index (BMI) 18.3 Physical Exam Narrative Physical Examination: General: Awakens to stimuli, alert to some questioning but with shock not as appropriate as she would normally be, currently BiPAP being placed given respiratory worsening status concurrently, following commands, laying in the ED bed, significantly ill-appearing. Skin: Pale color, normal turgor, no icterus, no cyanosis. HEENT: AT/NC, EOMI, PERRLA, dry MM, no carotid bruits or JVD noted. Lungs: Diminished, greater bases, increased respiratory rate, BiPAP currently being placed, no obvious rales, rhonchi or wheezing currently. Heart: Tachycardic with regular rhythm; no gallop, rub audible. Abdomen: Soft, NTTP, distended with ascites, distant bowel sounds, positive HM. Extremities: No cyanosis, clubbing, or edema. Neurological: Awakens to stimuli, alert to some questioning but with shock not as appropriate as she would normally be, currently BiPAP being placed given respiratory worsening status concurrently, following commands, laying in the ED bed, significantly ill-appearing, cognitive function not baseline intact; pupils equally reactive to light and accommodation, cranial nerves grossly normal, moving all 4 extremities, strength severely global decrease secondary to acute presentation. Psychiatric: Affect appears fatigued, ill-appearing, no acute evidence of depressive or anxiety feelings. Results Lab / Micro Data Result Diagrams: 09/20/22 18:36 09/20/22 18:36 Labs: Laboratory Results - last 24 hr 09/20/22 14:10: WBC 7.5, RBC 1.53 L, Hgb 4.8 L*, Hct 15.9 L, MCV 103.9 H, MCH 31.4, MCHC 30.2 L, RDW Std Deviation 76.1 H, RDW Coeff of Uriel 22.6 H, Plt Count 226, MPV 11.2, Immature Gran % (Auto) 0.700, Neut % (Auto) 81.8 H, Lymph % (Auto) 10.7 L, Hyde % (Auto) 6.8, Eos % (Auto) 0.0, Baso % (Auto) 0.0, Absolute Neuts (auto) 6.1, Absolute Lymphs (auto) 0.80 L, Nucleated RBC % 0.3, Differential Comment COMMENT, Diff Path Review May foll, Anisocytosis 1+ 09/20/22 14:10: Sodium 139, Potassium 6.1 H*, Chloride 110 H, Carbon Dioxide 17.0 L, Anion Gap 12, BUN 62 H, Creatinine 2.07 H, Estim Creat Clear Calc 15.78, Est GFR (MDRD) Af Amer 30 L, Est GFR (MDRD) Non-Af 25 L, BUN/Creatinine Ratio 30.0 H, Glucose 182 H, Calcium 8.2 L, Total Bilirubin 0.30, AST 18, ALT 10 L, Alkaline Phosphatase 81, Total Protein 5.8 L, Albumin 2.3 L, Globulin 3.5, Albumin/Globulin Ratio 0.7 L 09/20/22 14:10: Lactic Acid 6.9 H* 09/20/22 14:10: Blood Type A POSITIVE, Antibody Screen NEGATIVE, Crossmatch See Detail 09/20/22 14:10: PT 78.0 H, INR 9.7 H* Assessment & Plan Assessment/Plan (1) Hemorrhagic shock: (2) Upper GI bleed: PLAN: Plan The patient is a 81 y/o F w/ PMHx: AOCD/Chronic anemia/Fe deficiency anemia, 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 #1. Acute Hemorrhagic acute GI bleed Shock secondary to Acute GI Bleed w/ resultant Acute Blood Loss Anemia on Chronic complicated by underlying nonalcoholic cirrhotic liver disease with chronic thrombocytopenia likely falsely elevated upon current presentation secondary to GI bleed presentation with shock: Patient with significant shock presentation, administered initially IV fluids with dilemma of patient's significant antibody history therefore unable to be administered trauma blood safely but eventually was able to have matched blood with 2 unit PRBC initiated in the ED, central line placed also in the ED, will admit to the ICU, will continue consultation with hay rake operator and ab initio etl developer who are both aware, will maintain on IV fluids, patient administered IV vitamin K and 1 unit FFP in the ED given supratherapeutic INR upon presentation, will continue to trend with per GI recommendation to hold at INR of 2.5 if able given underlying history of mechanical valve, currently too unstable for endoscopy especially given patient preference of DNR CCA no intubation, we will continue to cycle H&H's closely and administer the additional 2 unit PRBC, will maintain on IV Protonix drip, IV octreotide drip as well as continued IV Rocephin given underlying cirrhotic disease. Ideally if patient is stable enough would benefit from a CT abdomen and pelvis also. Trend lactic acid for facility protocol. #2. Acute hypoxic respiratory failure secondary to #1: Patient eventually required BiPAP placement secondary to increased respiratory rate and eventual worsening hypoxia, ABG not severe appearing however pH 7.28, PCO2 30.5, PO2 was 98 however this was performed on BiPAP, will continue BiPAP with ICU transition, albuterol, encourage head of bed and I-S, pulmonary critical care consulted. #3. Acute hyperkalemia: Initial potassium 6.1, patient administered high clinic protocol with continued close BMP trending with further medication administered and as needed. #4. MAX on CKD stage III unclear subtype: Admission BUN/Colón 62/2.07, baseline creatinine prior noted 1.2-1.3 primarily, likely secondary to hemorrhagic shock presentation with hypoperfusion, will continue to treat as noted with PRBC administration and IV fluids, hold any nephrotoxic regimen with repeat serial BMP given hyperkalemia and in AM. #5. Valvular Heart Disease: Most recent echocardiogram noted 04/02/2022 with LV systolic function normal, EF 60%, moderately dilated RV, moderate global RV systolic dysfunction, mildly enlarged LA and RA, stable appearing mechanical mitral valve apparatus, moderately severe TBI, moderate focal AV calcification, mild PVI, RVSP 107 mmHg with severe pulmonary hypertension. Given presentation as noted, patient ministered vitamin K 5 mg IV x1 in addition to 1 pack FFP, will continue to trend INR and hold Coumadin with repeat INR also in a.m. with goal per GI 2.5. #6. Chronic Diastolic CHF: Patient currently necessitating aggressive fluid administrations with PRBC x2 is noted, will run the next 2 slower, if necessary may need to initiate pressors if need arises for IV Lasix pulsed dose in between, will continue weight monitoring, monitor I's and O's, holding Coumadin as noted with attempt to de-escalate down to INR 2.5 given mechanical valve history. Holding metoprolol as well as Lasix therapy, not on statin nor MALCOM inhibitor/ARB. #7. PAF: Holding patient metoprolol given presentation, holding Coumadin with interventions as noted. #8. Chronic COPD: Patient not on chronic inhalers, if necessary may add DuoNeb therapy versus budesonide, will maintain on as needed albuterol, head of bed, I-S, currently on BiPAP, plan to repeat ABG is noted. #9. Hypothyroidism: We will continue patient home levothyroxine regimen. #10. Tobacco Abuse: Encouraged cessation, inpatient consultation per RT, NR if desired. #11. History tachybradycardia syndrome: Status post pacemaker placement. #12. GERD: As noted maintained on IV Protonix drip. #13. DVT prophylaxis: SCDs, initiating reversal of supratherapeutic presentation with Coumadin given acute GI bleed, ideally per allowance of GI would trend INR to 2.5 given mechanical valve status. #14. CODE status: Patient EDWARD is her son who is present, living will is not in place. Discussed CODE status at length including difference between FULL code, DNR-CCA and DNR-CC status. Following discussions about the differences in these status, requested DNR CCA, no intubation status however he did report that if she was significantly uncomfortable or in pain and seem to worsen progressively he would prefer transition to comfort at that time following discussions again. Advanced Care Planning Face to Face Time: 19 minutes. Admission Evaluation Time spent evaluating chart, patient history, patient evaluation, care planning and discussion with specialists: 80 minutes. Charges/Coding Visit Charges Inpatient E&M: 93994 Init Hosp L3 Procedures Hospitalists Procedures: 29913 Advncd Care Plan 30 Min
--- NOTE | 2022-09-20 16:15 | NURSING ---
ICU GI BLEED, ABLA, HEMORRHAGIC SHOCK WHITE
[2022-09-20] MEDS: Octreotide 0.1 MG/ML ML IV (16:33)
[2022-09-20] MEDS: Sodium Bicarbonate 8.4% 50 ML Syringe 50 MEQ IV ×2 (16:35→20:29)
[2022-09-20] MEDS: Ceftriaxone 1 GM/50 ML BAG IV (16:36)
--- NOTE | 2022-09-20 17:04 | RAD_ITS ---
We are attempting to reach an attending provider to discuss findings. An addendum with communication details will be sent when the communication is complete. EXAM: XR CHEST, 1 VIEW CLINICAL INDICATION: post procedure TECHNIQUE: Frontal view of the chest. This report was created using [email or web address] technology. COMPARISON: 04/02/2022. FINDINGS: LUNGS AND PLEURAL SPACES: Decreased right lower pleural fluid replaced with a small sliver of pneumothorax. Asymmetric fibrosis in both lungs are unchanged. HEART: Mild cardiomegaly is unchanged. Mitral valve prosthesis is unchanged. MEDIASTINUM: Central airways and mediastinal contour are unremarkable. BONES/JOINTS: Unremarkable. SOFT TISSUES: Unremarkable. TUBES, LINES AND DEVICES: Right IJ line catheter tip is in the right upper atrial chamber. Interval removal of right PICC line catheter. Dual-chamber pacing lead tips are in the right atrium and right ventricle. RAD/CXR for Line Placement IMPRESSION: 1. Interval decrease in right lower pleural fluid replaced with a small sliver of pneumothorax. This may be vacuum effect of possible stiff lung syndrome. 2. No apical pneumothorax following right IJ approach central line catheter placement, tip is in the right upper atrial chamber. 3. Asymmetric fibrosis in both lungs are chronic and unchanged when compared to 04/02/2022. Electronically Signed: Edy Torres MD at 12:36 EST ,
--- NOTE | 2022-09-20 17:05 | NURSING ---
ICU 9
[2022-09-20 17:11] LABS: Bacteria 0 SEEN /hpf (None Seen); Mucous, Urine 0 SEEN /hpf (<or=2+); Red Blood Cells-Urine 0 SEEN /hpf (0-5); White Blood Cells 0 SEEN /hpf (0-5)
--- NOTE | 2022-09-20 17:21 | EDS_ITS ---
HPI History of Present Illness Chief Complaint: GI Bleed Informant: patient, family and EMS Narrative Narrative: Patient is a 81-year-old frail-appearing female presenting from home via EMS for generalized weakness, GI bleeding and lightheadedness. Patient was just admitted to our facility for symptomatic anemia, GI bleed and supratherapeutic INR. Patient is a history of mechanical mitral valve so she must continue to be on Coumadin. Her son reports that patient was having bright blood that progressed to black stool over the past 2 days and patient had increased weakness and dizziness. Patient states this feels like her prior GI bleed. Patient is currently a full code and has oscillated on whether she wants intervention or not. Required blood transfusion as recently as 2 weeks ago for symptomatic anemia. Patient currently denies any chest pain or difficulty breathing. Prior similar symptoms: Yes PFSH PFS Medical History Abdominal distension Acute GI bleeding Adenomatous colon polyp Anemia Anemia in chronic kidney disease Anemia requiring transfusions Anxiety Atrial fibrillation Bilateral leg edema Black stool Cardiac pacemaker in situ Carotid bruit Cholelithiasis Chronic gastrointestinal bleeding Chronic heart failure with preserved ejection fraction (HFpEF) Cirrhosis Cirrhosis of liver with ascites CKD (chronic kidney disease) COPD (chronic obstructive pulmonary disease) Depression Depression Diverticulosis GERD (gastroesophageal reflux disease) GI bleed GI bleeding HLD (hyperlipidemia) Hypokalemia Hypotension Hypotension Iron deficiency Irregular heart beat 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 Longstanding persistent atrial fibrillation Neutropenia Nicotine dependence Non-rheumatic aortic stenosis Non-rheumatic tricuspid valve insufficiency Nonrheumatic mitral (valve) insufficiency Pancytopenia Pericardial effusion Pleural effusion PVC's (premature ventricular contractions) Secondary pulmonary hypertension Severe protein-calorie malnutrition Smoker Supratherapeutic INR Tachycardia-bradycardia syndrome Thrombocytopenia Thrombocytopenia Type 2 diabetes mellitus Typical atrial flutter Home Medications ferrous sulfate 325 mg (65 mg iron) tablet 325 mg PO BID SUPPLEMENT 04/02/15 [History Last Taken 09/20/22] folic acid 1 mg tablet 1 mg PO DAILY@0800 supplement 04/30/15 [History Last Taken 09/18/22] cyanocobalamin (vitamin B-12) 2,500 mcg tablet 2,500 mcg PO DAILY vitamin 06/10/16 [History Last Taken 09/20/22] magnesium 250 mg tablet 250 mg PO DAILY supplement 05/24/17 [History Last Taken 09/19/22] cholecalciferol (vitamin D3) 25 mcg (1,000 unit) capsule 1,000 unit PO DAILY SUPPLEMENT 04/07/19 [History Last Taken 09/19/22] levothyroxine 100 mcg tablet 100 mcg PO DAILY THYROID 01/19/21 [History Last Taken 09/19/22] venlafaxine 37.5 mg tablet 37.5 mg PO QHS DEPRESSION 05/03/21 [History Last Taken 09/19/22] potassium chloride 20 mEq tablet,extended release(part/cryst) 20 meq PO BID SUPPLEMENT #180 tabs 03/15/22 [Rx Last Taken 09/20/22] midodrine 10 mg tablet 10 mg PO TID #90 tabs 04/03/22 [Rx Last Taken Unknown] oxycodone 5 mg tablet 5 mg PO Q4H PRN Pain 09/03/22 [History Last Taken 09/19/22] ascorbic acid (vitamin C) 500 mg tablet 500 mg PO BID #60 tabs 09/05/22 [Rx Last Taken 09/20/22] furosemide 40 mg tablet 40 mg PO DAILY #30 tabs 09/05/22 [Rx Last Taken 09/20/22] metoprolol succinate 25 mg tablet,extended release 24 hr 12.5 mg PO BID #60 tabs 09/05/22 [Rx Last Taken 09/20/22] pantoprazole 40 mg tablet,delayed release (Protonix) 40 mg PO BID #60 tabs 09/05/22 [Rx Last Taken 09/20/22] warfarin 2 mg tablet 2 mg PO DAILY BLOOD THINNER 09/20/22 [History Last Taken 09/19/22] Allergy/AdvReac Type Severity Reaction Status Date / Time amiodarone AdvReac vomiting, Verified 08/31/22 10:15 poor balance, dizziness digoxin AdvReac nausea, Verified 08/31/22 10:15 dry heaves lorazepam [From Ativan] AdvReac Unknown Verified 08/31/22 10:15 meloxicam [From Mobic] AdvReac Unknown Verified 08/31/22 10:15 nortriptyline HCl AdvReac Unknown Verified 08/31/22 10:15 [From Pamelor] zolpidem tartrate AdvReac Unknown Verified 08/31/22 10:15 [From Ambien] Family History Mother Cancer lung and renal Father Heart disease Surgical History History of cardioversion (10/2015) History of incision of pericardium History of left heart catheterization (07/17/08) History of mitral valve replacement with mechanical valve (07/22/08) History of tubal ligation Presence of permanent cardiac pacemaker (08/30/18) Social History Smoking Status: Current every day smoker tobacco type: cigarettes Tobacco: How many years used: 60 alcohol intake: never substance use type: does not use caffeine: Yes Type: carbonated beverages what type of physical activity do you participate in: none seatbelt use: always do you feel safe at home: Yes ROS ROS ED Constitutional Constitutional ED: Denies chills or fever(s) Eyes Eyes: Denies change in vision ENT ENT ED: Denies sore throat Cardiovascular Cardiovascular: Denies chest pain or palpitations Respiratory/Chest Respiratory/Chest: Denies cough or dyspnea Gastrointestinal Gastrointestinal: Reports diarrhea and melena; Denies abdominal pain Genitourinary Genitourinary ED: Denies dysuria Musculoskeletal Musculoskeletal: Denies arthralgias or myalgias Integumentary Denies rash Neurologic Neurologic: Reports weakness Hematologic/Lymphatic Hematologic/Lymphatic: Reports easy bleeding and easy bruising EXAM Physical Exam Const Vital Signs: 09/20/22 13:58 09/20/22 14:22 09/20/22 15:26 Temperature 96.8 F L Temperature Source Temporal Pulse Rate 90 89 76 Respiratory Rate 28 H 25 H 19 H Respiratory Pattern Blood Pressure 65/46 L 84/62 L 98/52 L Blood Pressure Mean 52 69 67 Pulse Ox 100 100 99 Oxygen Delivery Method Nasal Cannula Nasal Cannula Nasal Cannula Oxygen Flow Rate (L/min) 2 2 3 Fraction of Inspired Oxygen (FIO2) 09/20/22 15:31 09/20/22 15:53 09/20/22 16:09 Temperature Temperature Source Pulse Rate 75 89 81 Respiratory Rate 24 H 27 H Respiratory Pattern Blood Pressure 83/40 L 85/43 L 89/59 L Blood Pressure Mean 54 57 69 Pulse Ox 100 93 Oxygen Delivery Method Bi-pap Bi-pap Oxygen Flow Rate (L/min) 30 Fraction of Inspired Oxygen (FIO2) 30 09/20/22 15:30 Temperature Temperature Source Pulse Rate 89 Respiratory Rate 30 H Respiratory Pattern Tachypnea Blood Pressure Blood Pressure Mean Pulse Ox 100 Oxygen Delivery Method Oxygen Flow Rate (L/min) Fraction of Inspired Oxygen (FIO2) 30 Constitutional Narrative: Thin, chronically ill-appearing, acute distress General Appearance ED: pallor HEENT Reports dry mucous membranes Mouth ED: Yes dry mucous membranes Mouth: dry mucous membranes Eyes PERRL and EOMs intact bilaterally General Eye ED: Yes pale conjunctiva Neck supple Chest Wall inspection of chest normal Resp Resp Narrative: Mild tachypnea. Coarse breath sounds at the bases bilaterally Cardio regular rate and S1 normal heart sound GI GI Narrative: Mildly distended abdomen, nontender, no guarding or rigidity. Gross melena on rectal exam Extremity normal to inspection Neuro Sensorium / Orientation: alert and orientation impaired Motor Exam: general weakness Psych mental status grossly normal Skin General Skin Exam: pallor MDM MDM MDM Narrative Medical decision making narrative: Patient arrives to the ER in unstable condition. EMS report independently reviewed. Shows that patient explained of dizziness. She is found to be hypotensive with a blood pressure of 88/48 pulse of 70 and SPO2 of 96. Discharge summary from 09/05/2022 (patient's most recent admission) is independently reviewed.She has similar presentation at that time when she arrived to the ER with the pressure of 69/24 and a hemoglobin of 3.6 and hemorrhagic shock from a rectal bleed. At that time she had refused central line, pressors and EGD. Patient was started on midodrine given a total of 4 units of packed red blood cells and ultimately discharged home. EGD from Dr. Brownlee independently reviewed from 04/01/2022 where patient was found to have two 5 mm angiodysplastic lesions that were bleeding at the duodenal bulb and a single 5 mm sessile polyp with bleeding from the fourth portion of the duodenum. Differential for patient includes but is not limited to hemorrhagic shock, GI bleed, variceal bleed and coagulopathy. Patient is hypotensive with some mild hypoxia requiring 2 L of oxygen. Patient has obvious melena on exam. She is typed and crossed for blood however there is a delay given the blood because patient has had positive antibodies. She is found to again be acutely anemic with a hemoglobin of 4.8 and hemocrit of 15.9. CBC and platelets are normal at this time. Patient's potassium is elevated at 6.1 however EKG does not show changes consistent with hyperkalemia. We will recheck that lab. Lactate is elevated at 6.9 again consistent with hemorrhagic shock. Patient has an MAX with a creatinine of 2.07. Her INR is supratherapeutic at 9.7. Patient been crystalloid while waiting on the blood. As she is ordered 5 mg of IV vitamin K and FFP to reverse her coagulopathy. Patient has become more hypotensive. Discussed with Dr. Gomes, radial drill operator who states if worst-case scenario becomes more hypotensive/unstable to just give her trauma blood and deal with the reaction afterwards. We will hold off on pressors at this time as we do not want to accelerate her bleeding. Central line is placed in the ER?see procedure note and ultimately patient decides that she would like to be DNR CCA no intubation. Case is discussed independently with the GI, Dr. Brownlee, who will evaluate the patient as well. He is agreeable with Rocephin as patient does have a history of cirrhosis, Protonix drip, octreotide and admission to the ICU. Case is discussed with admitting physician, Dr. Guzman. Son who is at the bedside is counseled on the patient's critical condition. Blood does arrival patient so the ER and she is rapid transfuse 2 L. While in the ER she does start to complain of increased shortness of breath and she is transition to BiPAP. In addition she does have increased abdominal distention. She has ascites on bedside ultrasound performed by myself. Suspect is third spacing associated with her cirrhosis and fluid resuscitation. Lab Data Attestation: I reviewed the patient's lab results. Labs: Laboratory Results - last 24 hr 09/20/22 09/20/22 09/20/22 14:10 14:10 14:10 WBC 7.5 RBC 1.53 L Hgb 4.8 L* Hct 15.9 L MCV 103.9 H MCH 31.4 MCHC 30.2 L RDW Std Deviation 76.1 H RDW Coeff of Uriel 22.6 H Plt Count 226 MPV 11.2 Immature Gran % (Auto) 0.700 Neut % (Auto) 81.8 H Lymph % (Auto) 10.7 L [place] % (Auto) 6.8 Eos % (Auto) 0.0 Baso % (Auto) 0.0 Absolute Neuts (auto) 6.1 Absolute Lymphs (auto) 0.80 L Nucleated RBC % 0.3 Differential Comment COMMENT Diff Path Review May foll Anisocytosis 1+ PT INR Sodium 139 Potassium 6.1 H* Chloride 110 H Carbon Dioxide 17.0 L Anion Gap 12 BUN 62 H Creatinine 2.07 H Estim Creat Clear Calc 15.78 Est GFR (MDRD) Af Amer 30 L Est GFR (MDRD) Non-Af 25 L BUN/Creatinine Ratio 30.0 H Glucose 182 H Lactic Acid 6.9 H* Calcium 8.2 L Total Bilirubin 0.30 AST 18 ALT 10 L Alkaline Phosphatase 81 Total Protein 5.8 L Albumin 2.3 L Globulin 3.5 Albumin/Globulin Ratio 0.7 L Blood Type Antibody Screen Crossmatch 09/20/22 09/20/22 09/20/22 14:10 14:10 14:10 WBC RBC Hgb Hct MCV MCH MCHC RDW Std Deviation RDW Coeff of Uriel Plt Count MPV Immature Gran % (Auto) Neut % (Auto) Lymph % (Auto) [place] % (Auto) Eos % (Auto) Baso % (Auto) Absolute Neuts (auto) Absolute Lymphs (auto) Nucleated RBC % Differential Comment Diff Path Review Anisocytosis PT 78.0 H INR 9.7 H* Sodium Potassium Chloride Carbon Dioxide Anion Gap BUN Creatinine Estim Creat Clear Calc Est GFR (MDRD) Af Amer Est GFR (MDRD) Non-Af BUN/Creatinine Ratio Glucose Lactic Acid Calcium Total Bilirubin AST ALT Alkaline Phosphatase Total Protein Albumin Globulin Albumin/Globulin Ratio Blood Type A POSITIVE Antibody Screen NEGATIVE Crossmatch See Detail See Detail Radiography Chest X-Ray - ED: 1 View and Read by ED Physician Diagnostic Testing: Vascular congestion, central line in place Rhythm Strip Rhythm Strip: A-fib Rate: 88 Ectopy: None EKG Initial EKG: Attestation: I personally reviewed and interpreted this EKG as follows: Interpretation: Atrial Fibrillation Comments: Atrial fibrillation at a rate of 88 bpm Slight left axis deviation Low voltage QRS Normal QRS and QTc Normal ST segments Procedures Other Procedures Procedure(s): Central line Patient and her son are verbally consented due to emergent procedure. Patient prepped and draped in normal sterile fashion. Sterile technique used. Right IJ with ultrasound guidance placed. 1 attempt. No immediate obvious complications. Patient tolerated procedure well. She has blood return in all ports. Postprocedure x-ray shows central line in the distal superior vena cava. Critical Care Time Critical Care Time: Yes Critical care time (excluding procedures): 30-74 minutes (60), Discussing w/Patient &/or Family/Call Center Recruiter, Discussing w/Consultants, Arranging Admission or Transfer and Performing Direct Patient Care at Bedside Discharge Plan Triage Chief Complaint: GI Bleed ED Provider: Jacki Gonzáles Dx/Rx/DC Orders Clinical Impression: Hemorrhagic shock, Typical atrial flutter, Upper GI bleed, Supratherapeutic INR, MAX (acute kidney injury), Respiratory failure, Cirrhosis of liver Primary Care Provider: Kodak Muñoz Disposition Disposition: Acute Care [facility]
[2022-09-20 17:24] LABS: Color, Urine Yellow (Yellow); Glucose, Dipstick Normal (Normal); Ketone-Dipstick Negative (Negative); Leukocyte Esterase-Dipstick Negative /ul (Negative); Nitrite-Dipstick Negative (Negative); Occult Blood-Urine Negative /ul (Negative); Protein-Dipstick 30 mg/dl (Negative); Urine Bilirubin Dipstick Negative (Negative); Urine Clarity Clear (Clear); Urine Urobilinogen Normal (Normal)
[2022-09-20 17:32] LABS: Potassium 5.8 mmol/L (3.5-5.1)
[2022-09-20 17:35] LABS: Squamous Epithelial Cells - UA 0-5 SEEN /hpf (5-10)
[2022-09-20 17:36] LABS: Hyaline Cast 10-25 SEEN /lpf (0-5)
[2022-09-20 17:49] LABS: Phosphorus 5.8 mg/dL (2.5-4.9)
[2022-09-20 18:26] LABS: Reflex Lactate? Y
--- NOTE | 2022-09-20 18:31 | CON.PCM.GI_ITS ---
HPI Consult Data Date of Consult: 09/20/22 HPI Narrative Reason for Consultation: GI bleed HPI Narrative: EMANI LOUIS, is a 81 F who presents to the ED with fatigue and shortness of breath. In the ED she was discovered to have a hemoglobin of 4.8. She was also discovered to have an INR 9.7, significant lactic acidosis with a lactic acid of 7 and a potassium of 6.1. She states has had problems with intermittent bloody diarrhea her last episode being longer than a week ago.? ?She states that she had low blood pressure there and has had a headache over the last few days which is resolving.? She is chronically short of breath.? She was sent to the emergency department prior to starting her transfusion of packed red blood cells because of low blood pressure.? She reports diarrhea.? She denies any chest pain or new shortness of breath but states she feels occasionally lightheaded and dizzy.? She denies any recent bloody bowel movements or other bleeding diathesis. She is a lady with a history of coronary artery disease, mitral valve disease status post replacement with a [address] [employer] mechanical valve.? In addition she is status post permanent pacemaker implantation for which she continues to be seen in the office.? She also has a history of chronic persistent atrial fibrillation and repeated anemias for which she is receiving recurrent blood transfusions as well as evaluations.? Due to worsening shortness of breath she was started on BiPAP in the ED. 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 Currently she is in the ICU at this time and received 2 units of packed red blood cells and 5 mg of IV vitamin K. FOR[facility]LY [facility] Medical History Abdominal distension Acute GI bleeding Adenomatous colon polyp Anemia Anemia in chronic kidney disease Anemia requiring transfusions Anxiety Atrial fibrillation Bilateral leg edema Black stool Cardiac pacemaker in situ Carotid bruit Cholelithiasis Chronic gastrointestinal bleeding Chronic heart failure with preserved ejection fraction (HFpEF) Cirrhosis Cirrhosis of liver with ascites CKD (chronic kidney disease) COPD (chronic obstructive pulmonary disease) Depression Depression Diverticulosis GERD (gastroesophageal reflux disease) GI bleed GI bleeding HLD (hyperlipidemia) Hypokalemia Hypotension Hypotension Iron deficiency Irregular heart beat 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 Longstanding persistent atrial fibrillation Neutropenia Nicotine dependence Non-rheumatic aortic stenosis Non-rheumatic tricuspid valve insufficiency Nonrheumatic mitral (valve) insufficiency Pancytopenia Pericardial effusion Pleural effusion PVC's (premature ventricular contractions) Secondary pulmonary hypertension Severe protein-calorie malnutrition Smoker Supratherapeutic INR Tachycardia-bradycardia syndrome Thrombocytopenia Thrombocytopenia Type 2 diabetes mellitus Typical atrial flutter Home Medications ferrous sulfate 325 mg (65 mg iron) tablet 325 mg PO BID SUPPLEMENT 04/02/15 [History Last Taken 09/20/22] folic acid 1 mg tablet 1 mg PO DAILY@0800 supplement 04/30/15 [History Last Taken 09/18/22] cyanocobalamin (vitamin B-12) 2,500 mcg tablet 2,500 mcg PO DAILY vitamin 06/10/16 [History Last Taken 09/20/22] magnesium 250 mg tablet 250 mg PO DAILY supplement 05/24/17 [History Last Taken 09/19/22] cholecalciferol (vitamin D3) 25 mcg (1,000 unit) capsule 1,000 unit PO DAILY SUPPLEMENT 04/07/19 [History Last Taken 09/19/22] levothyroxine 100 mcg tablet 100 mcg PO DAILY THYROID 01/19/21 [History Last Taken 09/19/22] venlafaxine 37.5 mg tablet 37.5 mg PO QHS DEPRESSION 05/03/21 [History Last Taken 09/19/22] potassium chloride 20 mEq tablet,extended release(part/cryst) 20 meq PO BID SUPPLEMENT #180 tabs 03/15/22 [Rx Last Taken 09/20/22] midodrine 10 mg tablet 10 mg PO TID #90 tabs 04/03/22 [Rx Last Taken Unknown] oxycodone 5 mg tablet 5 mg PO Q4H PRN Pain 09/03/22 [History Last Taken 09/19/22] ascorbic acid (vitamin C) 500 mg tablet 500 mg PO BID #60 tabs 09/05/22 [Rx Last Taken 09/20/22] furosemide 40 mg tablet 40 mg PO DAILY #30 tabs 09/05/22 [Rx Last Taken 09/20/22] metoprolol succinate 25 mg tablet,extended release 24 hr 12.5 mg PO BID #60 tabs 09/05/22 [Rx Last Taken 09/20/22] pantoprazole 40 mg tablet,delayed release (Protonix) 40 mg PO BID #60 tabs 09/05/22 [Rx Last Taken 09/20/22] warfarin 2 mg tablet 2 mg PO DAILY BLOOD THINNER 09/20/22 [History Last Taken 09/19/22] Allergy/AdvReac Type Severity Reaction Status Date / Time amiodarone AdvReac vomiting, Verified 08/31/22 10:15 poor balance, dizziness digoxin AdvReac nausea, Verified 08/31/22 10:15 dry heaves lorazepam [From Ativan] AdvReac Unknown Verified 08/31/22 10:15 meloxicam [From Mobic] AdvReac Unknown Verified 08/31/22 10:15 nortriptyline HCl AdvReac Unknown Verified 08/31/22 10:15 [From Pamelor] zolpidem tartrate AdvReac Unknown Verified 08/31/22 10:15 [From Ambien] Family History Mother Cancer lung and renal Father Heart disease Surgical History History of cardioversion (10/2015) History of incision of pericardium History of left heart catheterization (07/17/08) History of mitral valve replacement with mechanical valve (07/22/08) History of tubal ligation Presence of permanent cardiac pacemaker (08/30/18) Social History Smoking Status: Current every day smoker tobacco type: cigarettes Tobacco: How many years used: 60 alcohol intake: never substance use type: does not use caffeine: Yes Type: carbonated beverages what type of physical activity do you participate in: none seatbelt use: always do you feel safe at home: Yes ROS Review of Systems ROS Unobtainable: due to mental status and other Details: Due to profound lethargy unable to obtain an adequate review of system Physical Exam Narrative Physical exam General: Alert, Oriented x3, Cooperative, fatigue, BMI 18.5 kg/m? HEENT: Atraumatic, PERRLA, EOMI, Normocephalic Oral: No Gingival or Mucosal Lesions/ Ulcerations Neck: Supple, No JVD, Negative Carotid Bruits Lungs: Air entry diminished in bilateral lung bases. No crepitation/rhonchi Cardiovascular: Sinus regular rhythm, Normal S1, Normal S2, systolic murmur over LLSB and cardiac apex, mechanical valve sound. Abdomen: Bowel Sounds Present, Soft, Non Tender, Non-Distended : No renal angle tenderness. No suprapubic tenderness. Extremities: No edema, Capillary Refill Less than 3 Seconds Skin: No rashes, No breakdown Musculoskeletal: No Tenderness to Palpation of Joints or Extremities, moderate muscle atrophy of extremities. Neurological: Cranial nerves II-XII grossly intact, DTR 2+/4 and Symmetrical, Neuro grossly intact Psych/Mental Status: Flat affect. Lab / Micro Data Result Diagrams: 09/20/22 14:10 09/20/22 17:05 Labs: Laboratory Results - last 24 hr 09/20/22 14:10: WBC 7.5, RBC 1.53 L, Hgb 4.8 L*, Hct 15.9 L, MCV 103.9 H, MCH 31.4, MCHC 30.2 L, RDW Std Deviation 76.1 H, RDW Coeff of Uriel 22.6 H, Plt Count 226, MPV 11.2, Immature Gran % (Auto) 0.700, Neut % (Auto) 81.8 H, Lymph % (Auto) 10.7 L, [place] % (Auto) 6.8, Eos % (Auto) 0.0, Baso % (Auto) 0.0, Absolute Neuts (auto) 6.1, Absolute Lymphs (auto) 0.80 L, Nucleated RBC % 0.3, Differential Comment COMMENT, Diff Path Review May foll, Anisocytosis 1+ 09/20/22 14:10: Sodium 139, Potassium 6.1 H*, Chloride 110 H, Carbon Dioxide 17.0 L, Anion Gap 12, BUN 62 H, Creatinine 2.07 H, Estim Creat Clear Calc 15.78, Est GFR (MDRD) Af Amer 30 L, Est GFR (MDRD) Non-Af 25 L, BUN/Creatinine Ratio 30.0 H, Glucose 182 H, Calcium 8.2 L, Total Bilirubin 0.30, AST 18, ALT 10 L, Alkaline Phosphatase 81, Total Protein 5.8 L, Albumin 2.3 L, Globulin 3.5, Albumin/Globulin Ratio 0.7 L 09/20/22 14:10: Lactic Acid 6.9 H* 09/20/22 14:10: Blood Type A POSITIVE, Antibody Screen NEGATIVE, Crossmatch See Detail 09/20/22 14:10: PT 78.0 H, INR 9.7 H* 09/20/22 14:10: Crossmatch See Detail 09/20/22 17:05: Urine Color Yellow, Urine Clarity Clear, Urine pH 5.0, Ur Specific [place] 1.020, Urine Protein 30 H, Urine Glucose (UA) Normal, Urine Ketones Negative, Urine Occult Blood Negative, Urine Nitrite Negative, Urine Bilirubin Negative, Urine Urobilinogen Normal, Ur Leukocyte Esterase Negative, Urine RBC 0 SEEN, Urine WBC 0 SEEN, Ur Squamous Epith Cells 0-5 SEEN, Urine Bacteria 0 SEEN, Hyaline Casts 10-25 SEEN, Urine Mucus 0 SEEN 09/20/22 17:05: Potassium 5.8 H, Magnesium 2.0 09/20/22 17:05: Phosphorus 5.8 H Rhythm Strip Rhythm Strip: A-fib Rate: 88 Ectopy: None Assessment & Plan Assessment/Plan (1) Hemorrhagic shock: PLAN: Patient admitted with hemorrhagic shock Admssion Hg 4.8 . Patient says that she may want to undergo endoscopy in order to find out when she is bleeding. At this time she is on BiPAP and cannot undergo emergent endoscopy unless she is intubated and she does not want to be intubated at this time. I will continue to follow her very closely. Recommend PPI drip and octreotide drip. (2) MAX (acute kidney injury): PLAN: Most likely prerenal from hemorrhagic shock. Continuing to improve after IVF and blood (3) Acute blood loss anemia: PLAN: Received 2 units Repeat H&H (4) Coagulopathy: PLAN: INR >9.7 on admission Pt received vitamin K and PCC. 09/04: INR 1.4. Hold Warfarin (5) GI bleed: PLAN: due to coagulopathy and history of duodenal ulcers continue PPI drip and octreotide drip (6) History of mitral valve replacement with mechanical valve: PLAN: Try to keep INR around 2.5 at lower level because of hemorrhagic shock and consistent GI bleed Charges/Coding Visit Charges Inpatient E&M: 15095 Init Hosp L3
[2022-09-20 18:36] LABS: Allen Test Positive; Base Excess -13 mmol/L (-2 to +2); Bicarbonate 14.2 mmol/L (22-26); Blood Gas Specimen Type ART; FI02 30; O2 Delivery Device BiPAP; PEEP 8; PO2 98 mmHG (75-100); PS 12; RR 12; SITE L Brach; SO2 97 % (95-99); Total Carbon Dioxide 15 mmol/L; pCO2 30.5 mmHg (35-45); pH 7.28 (7.35-7.45)
[2022-09-20 18:47] LABS: Hematocrit 26.3 % (37-47); Hemoglobin 7.8 g/dL (12.0-15.0)
[2022-09-20 18:55] LABS: Prothrombin Time (Protime)PT. 38.4 SECONDS (11.7-14.9)
[2022-09-20 19:02] LABS: Anion Gap 11 (5-15); BUN 56 mg/dL (7-18); BUN/Creat Ratio 30.1 RATIO (10-20); Calcium,Total 7.2 mg/dL (8.5-10.1); Chloride 115 mmol/L (98-107); Creatinine, Serum 1.86 mg/dL (0.55-1.02); EST Glomerular Filtration Rate 28 mL/min (>60); Est Glom Filt Rate - Afr Amer 34 mL/min (>60); Estimated Creatinine Clearance 17.56 ml/min; Glucose 188 mg/dL (74-106); Potassium 5.7 mmol/L (3.5-5.1); Sodium Level 143 mmol/L (136-145)
[2022-09-20] MEDS: Albuterol *CONC* 2.5mg/0.5mL VIAL.NEB. 10 MG INHALATION (19:03)
[2022-09-20 20:06] LABS: Lactic Acid 5.1 mmol/L (0.4-1.9)
[2022-09-20] MEDS: 0.9% Normal Saline 1,000 ML 125 ML IV (20:30)
--- NOTE | 2022-09-20 20:58 | NURSING ---
initial 2u prbc rapidly infused prior to this rn's arrival. marked complete in chart at this time. during transfusion of 3rd unit pt's temp increased d/t application of alexa garcia. no s/sx of transfusion rxn.
[2022-09-20] MEDS: Calcium Gluconate 1 GM/10 ML Vial IVP (21:01)
[2022-09-20] MEDS: Insulin Lispro 10 UNIT in Syringe 0 ML 6 UNIT IV (21:02)
[2022-09-20] MEDS: Dextrose 50%-Water 25 GM/50 ML DISP.SYRIN IV (21:04)
[2022-09-20] MEDS: 0.9% Saline Lock 10 ML Syringe IV ×2 (21:11→21:15)
--- NOTE | 2022-09-20 21:30 | EKG12_ITS ---
Test Reason : TACHYCARDIA Blood Pressure : / mmHG Vent. Rate : 137 BPM Atrial Rate : 288 BPM P-R Int : 000 ms QRS Dur : 072 ms QT Int : 302 ms P-R-T Axes : 000 -74 134 degrees QTc Int : 456 ms Atrial flutter with variable A-V block Left axis deviation Low voltage QRS Abnormal ECG When compared with ECG of 20-SEP-2022 14:39, MANUAL COMPARISON REQUIRED, DATA IS UNCONFIRMED Confirmed by LUÍS GUILLEN, PAUL ([id number]), editor & co founder HIRAM GREENE ([id number]) on 09/22/2022 12:56:57 P M Referred By: [email or web address] Confirmed By:ALEX STALEY MD
[2022-09-20 22:50] LABS: Anion Gap 8 (5-15); BUN 55 mg/dL (7-18); Calcium,Total 7.7 mg/dL (8.5-10.1); Chloride 115 mmol/L (98-107); Creatinine, Serum 2.04 mg/dL (0.55-1.02); EST Glomerular Filtration Rate 25 mL/min (>60); Est Glom Filt Rate - Afr Amer 30 mL/min (>60); Estimated Creatinine Clearance 16.01 ml/min; Glucose 210 mg/dL (74-106); Potassium 4.8 mmol/L (3.5-5.1); Sodium Level 145 mmol/L (136-145)
[2022-09-20 22:57] LABS: Troponin-I HS 10 pg/mL (3.0-54.0)
[2022-09-21] VITALS (30 sets, daily range): BP systolic 85–115; BP diastolic 48–80; PULSE 89–118; RESP 12–27; TEMP 36.6–36.9; O2SAT 92–100
[2022-09-21 01:25] LABS: Troponin-I HS 8 pg/mL (3.0-54.0)
[2022-09-21 04:59] LABS: Absolute Lymphocyte Count 0.58 X10^3/uL (0.83-4.51); Absolute Neutrophil Count 8.8 X10^3/uL (2.0-7.7); Basophil# 0.02 X10^3/uL; Basophil% 0.2 % (0-1); Hematocrit 35.2 % (37-47); Hemoglobin 11.1 g/dL (12.0-15.0); Lymphocyte # 0.58 X10^3/ul (0.83-4.51); Lymphocyte % 5.7 % (19-41); Mean Corp Hgb Conc 31.5 g/dL (32-36); Mean Corpuscular Hgb 28.8 pg (27.0-32.0); Mean Corpuscular Volume 91.2 fL (81-99); Mean Platelet Vol. 10.1 fl (6.2-12.0); Monocyte# 0.72 X10^3/uL; Monocyte% 7.1 % (0-10); NRBC Flagged by Analyzer 0.6 % (0-5); Neutrophil # 8.77 X10^3/uL (2.7-7.7); Neutrophil % 85.8 % (47-70); POSITIVE DIFFERENTIAL YES; Platelet Count 170 K/mm3 (150-450); RBC Distribution Width SD 53.2 fl (35.1-43.9); Red Blood Count 3.86 M/mm3 (4.2-5.4); White Blood Count 10.2 K/mm3 (4.4-11.0)
[2022-09-21 05:09] LABS: International Normalized Ratio 1.6; Prothrombin Time (Protime)PT. 18.8 SECONDS (11.7-14.9)
[2022-09-21 05:13] LABS: Differential Indicated SCAN CRITERIA MET
[2022-09-21 05:14] LABS: Anisocytosis 1+
[2022-09-21 05:19] LABS: ALB/GLOB Ratio 0.7 RATIO (0.9-2.4); AST(SGOT) 24 U/L (15-37); Alanine Aminotransfer ALT/SGPT 13 U/L (13-56); Albumin, Serum 2.1 g/dL (3.2-5.0); Alkaline Phosphatase 83 U/L (45-117); Anion Gap 8 (5-15); BUN 58 mg/dL (7-18); BUN/Creat Ratio 30.4 RATIO (10-20); Calcium,Total 7.5 mg/dL (8.5-10.1); Chloride 114 mmol/L (98-107); Creatinine, Serum 1.91 mg/dL (0.55-1.02); EST Glomerular Filtration Rate 27 mL/min (>60); Est Glom Filt Rate - Afr Amer 33 mL/min (>60); Estimated Creatinine Clearance 18.89 ml/min; Globulin 3.2 g/dL (2.2-4.2); Glucose 151 mg/dL (74-106); Protein, Total 5.3 g/dL (6.4-8.2); Sodium Level 144 mmol/L (136-145); Troponin-I HS 9 pg/mL (3.0-54.0)
[2022-09-21] MEDS: 0.9% Saline Lock 10 ML Syringe IV (05:37)
--- NOTE | 2022-09-21 06:13 | CON.PCM.CC_ITS ---
Assessment & Plan Assessment/Plan (1) Hemorrhagic shock: PLAN: Plan RECOMMENDATIONS: 1. Continue to monitor H&H and transfuse if hemoglobin drops below 7 g/dL. 2. Continue to monitor INR daily. 3. Once okay from a GI perspective, the patient will need to be started back on systemic anticoagulation. 4. Continue PPI and octreotide per GI recommendations. 5. Resume home midodrine regimen. 6. Continue to wean oxygen as tolerated. 7. Encourage incentive spirometer use and mobilize patient as tolerated. 8. The patient is medically stable for transfer out of the intensive care unit. IMPRESSIONS: 1. Hemorrhagic shock The patient presented to the hospital with hemorrhagic shock in the setting of acute blood loss anemia related to coagulopathy. The patient does have a history of nonalcoholic cirrhotic liver disease and duodenal ulcers. The patient was medically managed with volume resuscitation and transfusion of blood products. Her INR was reversed with vitamin K and FFP. Following the aforementioned interventions, the patient has stabilized clinically. Although endoscopic evaluation is a consideration, the patient reported to me that she has no intentions in undergoing any form of a procedure. The patient remains hemodynamically stable. I would plan to resume her home midodrine regimen. Continuous IV fluids can be discontinued from my perspective. 2. MAX on CKD Likely secondary to intravascular volume depletion in the setting of #1. Continue to monitor urine output and creatinine for now. No current indication for renal replacement therapy. 3. Coagulopathy Resolved at this time following administration of vitamin K and FFP. Given the patient's underlying valvular heart disease, she will ultimately need to be restarted back on systemic anticoagulation, once okay from a GI perspective. 4.??Acute on chronic hypoxemic respiratory failure/COPD Improved.? The patient has a baseline oxygen requirement of 2 L/min.? She is currently doing well from a respiratory perspective.?Encourage incentive spirometer use and mobilize patient as tolerated.? Continue scheduled bronchodilators as ordered. 5.??Atrial fibrillation with RVR/history of mitral valve replacement/hypothyroidism/PAN cirrhosis Complicates care, management, recovery and prognosis.? Resume home medications as indicated. This note was generated with [employer] software. It may contain incorrect words, spelling, and punctuation that were not noted in checking the note before signing. HPI Consult Data Date of Consult: 09/21/22 HPI Narrative Reason for Consultation: GI bleed HPI Narrative: The patient is a 81-year-old female, with a history as outlined below, who presented to the emergency department via EMS on September 20 with generalized weakness, dizziness, lightheadedness and anemia. The patient has a history of a mechanical mitral valve and is currently anticoagulated on an outpatient basis with Coumadin. She was recently discharged from the hospital on September 05 after having been admitted with hemorrhagic shock related to coagulopathy, requiring transfusion of blood products. The patient did refuse endoscopic evaluation at that time. 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 On presentation to the emergency department, the patient was noted to be afebrile and hypotensive. Initial laboratory evaluation revealed a hemoglobin of 4.8 g/dL. INR was elevated at 9.7. Chemistry profile was notable for a potassium of 6.1 with a bicarbonate of 17 and creatinine of 2.07. Lactate was elevated at 6.9. Urine analysis was unremarkable. The patient was medically managed with vitamin K and FFP. The patient also underwent central venous catheter cannulation. Blood products were administered. The patient did become increasingly short of breath with fluid resuscitation and was therefore placed on BiPAP. The patient was also started on a PPI infusion and octreotide drip after being evaluated by gastroenterology. The patient was subsequently admitted to the medical intensive care unit. No overnight issues were identified by the nursing staff. The patient has received a total of 4 units of packed red blood cells. She is documented to be overall net +2.1 L for the hospitalization. Hemoglobin has improved to 11.1 g/dL this morning. INR was noted to be 1.6. The patient did report to me that this morning that she has no intention in undergoing an additional endoscopic evaluation. [facility] Medical History Abdominal distension Acute GI bleeding Adenomatous colon polyp Anemia Anemia in chronic kidney disease Anemia requiring transfusions Anxiety Atrial fibrillation Bilateral leg edema Black stool Cardiac pacemaker in situ Carotid bruit Cholelithiasis Chronic gastrointestinal bleeding Chronic heart failure with preserved ejection fraction (HFpEF) Cirrhosis Cirrhosis of liver with ascites CKD (chronic kidney disease) COPD (chronic obstructive pulmonary disease) Depression Depression Diverticulosis GERD (gastroesophageal reflux disease) GI bleed GI bleeding HLD (hyperlipidemia) Hypokalemia Hypotension Hypotension Iron deficiency Irregular heart beat Kidney disease correction current use of anticoagulant Longstanding persistent atrial fibrillation Neutropenia Nicotine dependence Non-rheumatic aortic stenosis Non-rheumatic tricuspid valve insufficiency Nonrheumatic mitral (valve) insufficiency Pancytopenia Pericardial effusion Pleural effusion PVC's (premature ventricular contractions) Secondary pulmonary hypertension Severe protein-calorie malnutrition Smoker Supratherapeutic INR Tachycardia-bradycardia syndrome Thrombocytopenia Thrombocytopenia Type 2 diabetes mellitus Typical atrial flutter Home Medications ferrous sulfate 325 mg (65 mg iron) tablet 325 mg PO BID SUPPLEMENT 04/02/15 [History Last Taken 09/20/22] folic acid 1 mg tablet 1 mg PO DAILY@0800 supplement 04/30/15 [History Last Taken 09/18/22] cyanocobalamin (vitamin B-12) 2,500 mcg tablet 2,500 mcg PO DAILY vitamin 06/10/16 [History Last Taken 09/20/22] magnesium 250 mg tablet 250 mg PO DAILY supplement 05/24/17 [History Last Taken 09/19/22] cholecalciferol (vitamin D3) 25 mcg (1,000 unit) capsule 1,000 unit PO DAILY SUP PLEMENT 04/07/19 [History Last Taken 09/19/22] levothyroxine 100 mcg tablet 100 mcg PO DAILY THYROID 01/19/21 [History Last Taken 09/19/22] venlafaxine 37.5 mg tablet 37.5 mg PO QHS DEPRESSION 05/03/21 [History Last Taken 09/19/22] potassium chloride 20 mEq tablet,extended release(part/cryst) 20 meq PO BID SUPPLEMENT #180 tabs 03/15/22 [Rx Last Taken 09/20/22] midodrine 10 mg tablet 10 mg PO TID #90 tabs 04/03/22 [Rx Last Taken Unknown] oxycodone 5 mg tablet 5 mg PO Q4H PRN Pain 09/03/22 [History Last Taken 09/19/22] ascorbic acid (vitamin C) 500 mg tablet 500 mg PO BID #60 tabs 09/05/22 [Rx Last Taken 09/20/22] furosemide 40 mg tablet 40 mg PO DAILY #30 tabs 09/05/22 [Rx Last Taken 09/20/22 ] metoprolol succinate 25 mg tablet,extended release 24 hr 12.5 mg PO BID #60 tabs 09/05/22 [Rx Last Taken 09/20/22] pantoprazole 40 mg tablet,delayed release (Protonix) 40 mg PO BID #60 tabs 09/05/22 [Rx Last Taken 09/20/22] warfarin 2 mg tablet 2 mg PO DAILY BLOOD THINNER 09/20/22 [History Last Taken 09/19/22] Allergy/AdvReac Type Severity Reaction Status Date / Time amiodarone AdvReac vomiting, Verified 08/31/22 10:15 poor balance, dizziness digoxin AdvReac nausea, Verified 08/31/22 10:15 dry heaves lorazepam [From Ativan] AdvReac Unknown Verified 08/31/22 10:15 meloxicam [From Mobic] AdvReac Unknown Verified 08/31/22 10:15 nortriptyline HCl AdvReac Unknown Verified 08/31/22 10:15 [From Pamelor] zolpidem tartrate AdvReac Unknown Verified 08/31/22 10:15 [From Ambien] Family History Mother Cancer lung and renal Father Heart disease Surgical History History of cardioversion (10/2015) History of incision of pericardium History of left heart catheterization (07/17/08) History of mitral valve replacement with mechanical valve (07/22/08) History of tubal ligation Presence of permanent cardiac pacemaker (08/30/18) Social History Smoking Status: Current every day smoker tobacco type: cigarettes Tobacco: How many years used: 60 alcohol intake: never substance use type: does not use caffeine: Yes Type: carbonated beverages what type of physical activity do you participate in: none seatbelt use: always do you feel safe at home: Yes ROS ROS Narrative 10 systems were reviewed with pertinent positives as noted in the HPI above. Physical Exam Const alert and no apparent distress General Appearance: cooperative and frail HEENT normocephalic and head/scalp atraumatic Eyes PERRL, EOMs intact bilaterally and conjunctivae normal Neck supple General: trachea midline and CVC in place Chest inspection of chest normal Resp normal respiratory effort Auscultation: Negative for rales, rhonchi or wheezes Cardio regular rate and regular rhythm GI soft to palpation and non-tender Inspection: abdominal distention Extremity no clubbing, cyanosis or edema Skin no rashes or lesions noted Neuro CN's II-XII intact bilaterally, moves all extremities and no focal motor deficits Psych cooperative and affect normal Lab / Micro Data Result Diagrams: 09/21/22 04:50 09/21/22 04:50 Labs: Laboratory Results - last 24 hr 09/20/22 14:10: WBC 7.5, RBC 1.53 L, Hgb 4.8 L*, Hct 15.9 L, MCV 103.9 H, MCH 31.4, MCHC 30.2 L, RDW Std Deviation 76.1 H, RDW Coeff of Uriel 22.6 H, Plt Count 226, MPV 11.2, Immature Gran % (Auto) 0.700, Neut % (Auto) 81.8 H, Lymph % (Auto) 10.7 L, Daniels % (Auto) 6.8, Eos % (Auto) 0.0, Baso % (Auto) 0.0, Absolute Neuts (auto) 6.1, Absolute Lymphs (auto) 0.80 L, Nucleated RBC % 0.3, Differential Comment COMMENT, Diff Path Review May foll, Anisocytosis 1+ 09/20/22 14:10: Sodium 139, Potassium 6.1 H*, Chloride 110 H, Carbon Dioxide 17.0 L, Anion Gap 12, BUN 62 H, Creatinine 2.07 H, Estim Creat Clear Calc 15.78, Est GFR (MDRD) Af Amer 30 L, Est GFR (MDRD) Non-Af 25 L, BUN/Creatinine Ratio 30.0 H, Glucose 182 H, Calcium 8.2 L, Total Bilirubin 0.30, AST 18, ALT 10 L, Alkaline Phosphatase 81, Total Protein 5.8 L, Albumin 2.3 L, Globulin 3.5, Albumin/Globulin Ratio 0.7 L 09/20/22 14:10: Lactic Acid 6.9 H* 09/20/22 14:10: Blood Type A POSITIVE, Antibody Screen NEGATIVE, Crossmatch See Detail 09/20/22 14:10: PT 78.0 H, INR 9.7 H* 09/20/22 14:10: Crossmatch See Detail 09/20/22 17:05: Urine Color Yellow, Urine Clarity Clear, Urine pH 5.0, Ur Specific [place] 1.020, Urine Protein 30 H, Urine Glucose (UA) Normal, Urine Ketones Negative, Urine Occult Blood Negative, Urine Nitrite Negative, Urine Bilirubin Negative, Urine Urobilinogen Normal, Ur Leukocyte Esterase Negative, Urine RBC 0 SEEN, Urine WBC 0 SEEN, Ur Squamous Epith Cells 0-5 SEEN, Urine Bacteria 0 SEEN, Hyaline Casts 10-25 SEEN, Urine Mucus 0 SEEN 09/20/22 17:05: Potassium 5.8 H, Magnesium 2.0 09/20/22 17:05: Phosphorus 5.8 H 09/20/22 18:36: Hgb 7.8 L, Hct 26.3 L 09/20/22 18:36: Sodium 143, Potassium 5.7 H, Chloride 115 H, Carbon Dioxide 17.0 L, Anion Gap 11, BUN 56 H, Creatinine 1.86 H, Estim Creat Clear Calc 17.56, Est GFR (MDRD) Af Amer 34 L, Est GFR (MDRD) Non-Af 28 L, BUN/Creatinine Ratio 30.1 H , Glucose 188 H, Calcium 7.2 L 09/20/22 18:36: PT 38.4 H, INR 4.0 H* 09/20/22 19:00: Lactic Acid 5.1 H* 09/20/22 22:10: Sodium 145, Potassium 4.8, Chloride 115 H, Carbon Dioxide 22.0, Anion Gap 8, BUN 55 H, Creatinine 2.04 H, Estim Creat Clear Calc 16.01, Est GFR (MDRD) Af Amer 30 L, Est GFR (MDRD) Non-Af 25 L, BUN/Creatinine Ratio 27.0 H, G lucose 210 H, Calcium 7.7 L 09/20/22 22:10: Troponin I High Sens 10 09/21/22 01:00: Troponin I High Sens 8 09/21/22 04:50: WBC 10.2, RBC 3.86 L, Hgb 11.1 L, Hct 35.2 L, MCV 91.2 D, MCH 28.8, MCHC 31.5 L, RDW Std Deviation 53.2 H, RDW Coeff of Uriel 18.0 H, Plt Count 170, MPV 10.1, Immature Gran % (Auto) 1.200 H, Neut % (Auto) 85.8 H, Lymph % (Auto) 5.7 L, Daniels % (Auto) 7.1, Eos % (Auto) 0.0, Baso % (Auto) 0.2, Absolute Neuts (auto) 8.8 H, Absolute Lymphs (auto) 0.58 L, Nucleated RBC % 0.6, Anisocytosis 1+ 09/21/22 04:50: PT 18.8 H, INR 1.6 09/21/22 04:50: Sodium 144, Potassium 5.0, Chloride 114 H, Carbon Dioxide 22.0, Anion Gap 8, BUN 58 H, Creatinine 1.91 H, Estim Creat Clear Calc 18.89, Est GFR (MDRD) Af Amer 33 L, Est GFR (MDRD) Non-Af 27 L, BUN/Creatinine Ratio 30.4 H, Glucose 151 H, Calcium 7.5 L, Total Bilirubin 0.80, AST 24, ALT 13, Alkaline Phosphatase 83, Troponin I High Sens 9, Total Protein 5.3 L, Albumin 2.1 L, Globulin 3.2, Albumin/Globulin Ratio 0.7 L ABG Data ABG results: ABG 09/20/22 09/20/22 18:28 18:28 Specimen Type ART ART Sample Site L Brach L Brach pH 7.28 L 7.28 L Bicarbonate Actual 14.2 L 14.2 L Total CO2 15 15 Base Excess -13 L -13 L O2 Saturation 97 97 O2 % 30 30 ABG pCO2 30.5 L 30.5 L ABG pO2 98 98 Mika Test Positive Positive Respiration Rate 12 12 O2 Delivery Device BiPAP BiPAP POC PEEP 8 8 POC Pressure Suppt 12 12 Rhythm Strip Rhythm Strip: A-fib Rate: 88 Ectopy: None Charges/Coding Visit Charges Inpatient E&M: 68492 Init Hosp L3
--- NOTE | 2022-09-21 07:24 | PCM.PN.HOSP ---
Reason for Visit Reason for Visit: Diagnoses Acute posthemorrhagic anemia (09/20/22) Coagulation defect, unspecified (09/20/22) Gastrointestinal hemorrhage, unspecified (09/20/22) Acute kidney failure, unspecified (09/20/22) Other shock (09/20/22) Presence of prosthetic heart valve (09/20/22) Subjective Subjective Patient is a 81-year-old lady with multiple comorbidities including valvular heart disease with mitral valve replacement with mechanical valve on systemic anticoagulation with Coumadin presented to the emergency department with lightheadedness. Patient was found to be hypotensive and anemic and assessment of acute hemorrhagic shock secondary to GI bleed was made admitted to the intensive care unit for further management Objective Data Objective Data Vital Signs: Vital Signs Temp Pulse Resp BP Pulse Ox O2 Del Method O2 Flow Rate 98.5 F 91 24 H 99/72 99 Nasal Cannula 3 09/21/22 06:00 09/21/22 06:00 09/21/22 06:00 09/21/22 06:00 09/21/22 06:00 09/21/22 06:00 09/21/22 06:00 FiO2 25 09/21/22 03:00 Oxygen Flow Rate (L/min) 3 Oxygen Delivery Method Nasal Cannula Weight: 52.1 kg Body Mass Index (BMI) 18.3 Intake & Output: Intake and Output for Last 24 Hours 09/19/22 09/20/22 09/21/22 23:59 23:59 23:59 Intake Total 1935.5 / 1935.5 656.33 / 656.33 Output Total 125 / 275 300 / 300 Balance 1810.5 / 1660.5 356.33 / 356.33 Lab / Micro Data Result Diagrams: 09/21/22 04:50 09/21/22 04:50 Labs: Laboratory Results - last 24 hr 09/20/22 14:10: WBC 7.5, RBC 1.53 L, Hgb 4.8 L*, Hct 15.9 L, MCV 103.9 H, MCH 31.4, MCHC 30.2 L, RDW Std Deviation 76.1 H, RDW Coeff of Uriel 22.6 H, Plt Count 226, MPV 11.2, Immature Gran % (Auto) 0.700, Neut % (Auto) 81.8 H, Lymph % (Auto) 10.7 L, [place] % (Auto) 6.8, Eos % (Auto) 0.0, Baso % (Auto) 0.0, Absolute Neuts (auto) 6.1, Absolute Lymphs (auto) 0.80 L, Nucleated RBC % 0.3, Differential Comment COMMENT, Diff Path Review May foll, Anisocytosis 1+ 09/20/22 14:10: Sodium 139, Potassium 6.1 H*, Chloride 110 H, Carbon Dioxide 17.0 L, Anion Gap 12, BUN 62 H, Creatinine 2.07 H, Estim Creat Clear Calc 15.78, Est GFR (MDRD) Af Amer 30 L, Est GFR (MDRD) Non-Af 25 L, BUN/Creatinine Ratio 30.0 H, Glucose 182 H, Calcium 8.2 L, Total Bilirubin 0.30, AST 18, ALT 10 L, Alkaline Phosphatase 81, Total Protein 5.8 L, Albumin 2.3 L, Globulin 3.5, Albumin/Globulin Ratio 0.7 L 09/20/22 14:10: Lactic Acid 6.9 H* 09/20/22 14:10: Blood Type A POSITIVE, Antibody Screen NEGATIVE, Crossmatch See Detail 09/20/22 14:10: PT 78.0 H, INR 9.7 H* 09/20/22 14:10: Crossmatch See Detail 09/20/22 17:05: Urine Color Yellow, Urine Clarity Clear, Urine pH 5.0, Ur Specific [place] 1.020, Urine Protein 30 H, Urine Glucose (UA) Normal, Urine Ketones Negative, Urine Occult Blood Negative, Urine Nitrite Negative, Urine Bilirubin Negative, Urine Urobilinogen Normal, Ur Leukocyte Esterase Negative, Urine RBC 0 SEEN, Urine WBC 0 SEEN, Ur Squamous Epith Cells 0-5 SEEN, Urine Bacteria 0 SEEN, Hyaline Casts 10-25 SEEN, Urine Mucus 0 SEEN 09/20/22 17:05: Potassium 5.8 H, Magnesium 2.0 09/20/22 17:05: Phosphorus 5.8 H 09/20/22 18:36: Hgb 7.8 L, Hct 26.3 L 09/20/22 18:36: Sodium 143, Potassium 5.7 H, Chloride 115 H, Carbon Dioxide 17.0 L, Anion Gap 11, BUN 56 H, Creatinine 1.86 H, Estim Creat Clear Calc 17.56, Est GFR (MDRD) Af Amer 34 L, Est GFR (MDRD) Non-Af 28 L, BUN/Creatinine Ratio 30.1 H, Glucose 188 H, Calcium 7.2 L 09/20/22 18:36: PT 38.4 H, INR 4.0 H* 09/20/22 19:00: Lactic Acid 5.1 H* 09/20/22 22:10: Sodium 145, Potassium 4.8, Chloride 115 H, Carbon Dioxide 22.0, Anion Gap 8, BUN 55 H, Creatinine 2.04 H, Estim Creat Clear Calc 16.01, Est GFR (MDRD) Af Amer 30 L, Est GFR (MDRD) Non-Af 25 L, BUN/Creatinine Ratio 27.0 H, Glucose 210 H, Calcium 7.7 L 09/20/22 22:10: Troponin I High Sens 10 09/21/22 01:00: Troponin I High Sens 8 09/21/22 04:50: WBC 10.2, RBC 3.86 L, Hgb 11.1 L, Hct 35.2 L, MCV 91.2 D, MCH 28.8, MCHC 31.5 L, RDW Std Deviation 53.2 H, RDW Coeff of Uriel 18.0 H, Plt Count 170, MPV 10.1, Immature Gran % (Auto) 1.200 H, Neut % (Auto) 85.8 H, Lymph % (Auto) 5.7 L, [place] % (Auto) 7.1, Eos % (Auto) 0.0, Baso % (Auto) 0.2, Absolute Neuts (auto) 8.8 H, Absolute Lymphs (auto) 0.58 L, Nucleated RBC % 0.6, Anisocytosis 1+ 09/21/22 04:50: PT 18.8 H, INR 1.6 09/21/22 04:50: Sodium 144, Potassium 5.0, Chloride 114 H, Carbon Dioxide 22.0, Anion Gap 8, BUN 58 H, Creatinine 1.91 H, Estim Creat Clear Calc 18.89, Est GFR (MDRD) Af Amer 33 L, Est GFR (MDRD) Non-Af 27 L, BUN/Creatinine Ratio 30.4 H, Glucose 151 H, Calcium 7.5 L, Total Bilirubin 0.80, AST 24, ALT 13, Alkaline Phosphatase 83, Troponin I High Sens 9, Total Protein 5.3 L, Albumin 2.1 L, Globulin 3.2, Albumin/Globulin Ratio 0.7 L ABG Data ABG results: ABG 09/20/22 09/20/22 18:28 18:28 Specimen Type ART ART Sample Site L Brach L Brach pH 7.28 L 7.28 L Bicarbonate Actual 14.2 L 14.2 L Total CO2 15 15 Base Excess -13 L -13 L O2 Saturation 97 97 O2 % 30 30 ABG pCO2 30.5 L 30.5 L ABG pO2 98 98 Mika Test Positive Positive Respiration Rate 12 12 O2 Delivery Device BiPAP BiPAP POC PEEP 8 8 POC Pressure Suppt 12 12 Rhythm Strip Rhythm Strip: A-fib Rate: 88 Ectopy: None Physical Exam Narrative GENERAL: cooperative HEENT: Atraumatic; normocephalic EYES; Anicteric, Normal Conjunctiva NECK; supple, normal thyroid, RESPIRATORY: Diminished to auscultation CARDIOVASCULAR: Regular S1 S2, GI: soft, normoactive bowel sounds, : No Renal angle tenderness; EXTREMITIES: No edema, no clubbing, MUSCULOSKELETAL: no muscle wasting NEURO: Awake; no lateralizing signs. SKIN: No Rash PSYCH; Flat affect Assessment & Plan Assessment/Plan (1) Hemorrhagic shock: (2) Upper GI bleed: PLAN: Plan Patient is a 81-year-old lady with multiple comorbidities including valvular heart disease with mitral valve replacement with mechanical valve on systemic anticoagulation with Coumadin presented to the emergency department with lightheadedness. Patient was found to be hypotensive and anemic and assessment of acute hemorrhagic shock secondary to GI bleed was made admitted to the intensive care unit for further management 1. Hemorrhagic shock ? Secondary to GI bleed and the patient with significant risk factors including use of systemic anticoagulation with Coumadin, cirrhosis of the liver with thrombocytopenia. Patient admitted to the intensive care unit started on Protonix drip as well as octreotide drip in addition to IV fluid resuscitation consult placed to GI patient seen by Dr. Brownlee. Emergency endoscopic evaluation was deferred since patient had to be intubated prior to the procedure as she had declined intubation 2. Coagulopathy ? Secondary to Coumadin use INR on admission was 9.7 patient did receive vitamin K as well as PCC. Subsequent monitoring with daily INR ordered 3. Acute hypoxic respiratory failure ? Patient had to be placed on BiPAP and subsequently admitted to the intensive care unit. ABG did demonstrate respiratory acidosis 4. Hyperkalemia ? This was treated per protocol with subsequent monitoring of electrolytes ordered 5. Chronic kidney disease stage IV ? Kidney function close to her baseline 5. Valvular heart disease ? With history of mitral valve replacement with [facility] patient is on systemic anticoagulation with warfarin presented with coagulopathy which had to be reversed in view of GI bleed 7. Chronic congestive heart failure with preserved ejection fraction ? Currently stable 8. Paroxysmal atrial fibrillation ? Rate controlled on metoprolol (held in view of hypotension). Patient is on systemic anticoagulation with warfarin held in view of presentation 9. Hypothyroidism - Patient is on levothyroxine home dose continued 10. Lactic acidosis ? Secondary to hypoperfusion from patient hemorrhagic shock secondary to GI bleed 11. History of tachybradycardia syndrome ? Status post pacemaker placement 12. COPD ? Bronchodilator treatment as needed 13. Depression with anxiety ? Patient is on venlafaxine did continue 14. Tobacco dependence - Counseled on cessation, offered nicotine patch for tobacco cravings Time spent in the patient's overall evaluation,decision-making process, review of diagnostic data, adjustment of management, discussion with other providers, nursing nursing and ancillary staff involved in patient's care documentation, 60 minutes Charges/Coding Visit Charges Inpatient E&M: 50773 [facility] Hosp L3
[2022-09-21] MEDS: Midodrine HCl 5 MG Tablet 10 MG PO ×3 (08:52→17:21)
[2022-09-21] MEDS: Ceftriaxone 1 GM/50 ML BAG IV (08:53)
--- NOTE | 2022-09-21 12:17 | PN_ITS ---
Subjective Subjective Patient is no longer requiring BiPAP and is back to her baseline oxygen requirements. She denies any abdominal pain. She denies any weakness. She was admitted yesterday for hemorrhagic shock secondary to GI bleed from anticoagulation. Objective Data Objective Data Vital Signs: Vital Signs Temp Pulse Resp BP Pulse Ox O2 Del Method O2 Flow Rate 98.2 F 96 18 108/68 100 Nasal Cannula 2 09/21/22 10:00 09/21/22 10:20 09/21/22 10:20 09/21/22 10:00 09/21/22 10:20 09/21/22 10:00 09/21/22 08:00 FiO2 25 09/21/22 10:20 Oxygen Flow Rate (L/min) 2 Oxygen Delivery Method Nasal Cannula Weight: 114 lb 13.773 oz Body Mass Index (BMI) 18.3 Intake & Output: Intake and Output for Last 24 Hours 09/19/22 09/20/22 09/21/22 23:59 23:59 23:59 Intake Total 1935.5 / 1935.5 1438.33 / 1438.33 Output Total 125 / 275 300 / 300 Balance 1810.5 / 1660.5 1138.33 / 1138.33 Medical Nutrition Assessment Dietitian: Malnutrition Criteria Met Start: 09/21/22 11:38 Freq: Status: Active Protocol: Document 09/21/22 11:38 AG (Rec: 09/21/22 11:38 [id number]) Nutrition Malnutrition Evidence of Malnutrition Exists Yes Malnutrition (severe): Chronic Evidenced By Suboptimal Energy Intake ( Severe),Physical Changes ( Severe) Clinical Problem Chronic Disease or Condition Related Malnutrition Etiology chronic, severe malnutrition related to inadequate energy intake, GI dysfunction Signs/Symptoms as evidenced by estimated PO intake meeting <75% of estimated energy needs > 3 months; severe muscle wasting/ fat loss evident in orbital, clavicle, acromion, and temporal areas per physical exam Status Active Problem Recommendation Dietitian Recommendations/Changes recommend advance diet as tolerated to regular w/ 8oz chocolate [place] Instant Breakfast TID w/ meals for additional calories/protein if consumed. Lab / Micro Data Result Diagrams: 09/21/22 04:50 09/21/22 04:50 Labs: Laboratory Results - last 24 hr 09/20/22 14:10: WBC 7.5, RBC 1.53 L, Hgb 4.8 L*, Hct 15.9 L, MCV 103.9 H, MCH 31.4, MCHC 30.2 L, RDW Std Deviation 76.1 H, RDW Coeff of Uriel 22.6 H, Plt Count 226, MPV 11.2, Immature Gran % (Auto) 0.700, Neut % (Auto) 81.8 H, Lymph % (Auto) 10.7 L, [place] % (Auto) 6.8, Eos % (Auto) 0.0, Baso % (Auto) 0.0, Absolute Neuts (auto) 6.1, Absolute Lymphs (auto) 0.80 L, Nucleated RBC % 0.3, Differential Comment COMMENT, Diff Path Review May foll, Anisocytosis 1+ 09/20/22 14:10: Sodium 139, Potassium 6.1 H*, Chloride 110 H, Carbon Dioxide 17.0 L, Anion Gap 12, BUN 62 H, Creatinine 2.07 H, Estim Creat Clear Calc 15.78, Est GFR (MDRD) Af Amer 30 L, Est GFR (MDRD) Non-Af 25 L, BUN/Creatinine Ratio 30.0 H, Glucose 182 H, Calcium 8.2 L, Total Bilirubin 0.30, AST 18, ALT 10 L, Alkaline Phosphatase 81, Total Protein 5.8 L, Albumin 2.3 L, Globulin 3.5, Albumin/Globulin Ratio 0.7 L 09/20/22 14:10: Lactic Acid 6.9 H* 09/20/22 14:10: Blood Type A POSITIVE, Antibody Screen NEGATIVE, Crossmatch See Detail 09/20/22 14:10: PT 78.0 H, INR 9.7 H* 09/20/22 14:10: Crossmatch See Detail 09/20/22 17:05: Urine Color Yellow, Urine Clarity Clear, Urine pH 5.0, Ur Specific [place] 1.020, Urine Protein 30 H, Urine Glucose (UA) Normal, Urine Ketones Negative, Urine Occult Blood Negative, Urine Nitrite Negative, Urine Bilirubin Negative, Urine Urobilinogen Normal, Ur Leukocyte Esterase Negative, Urine RBC 0 SEEN, Urine WBC 0 SEEN, Ur Squamous Epith Cells 0-5 SEEN, Urine Bacteria 0 SEEN, Hyaline Casts 10-25 SEEN, Urine Mucus 0 SEEN 09/20/22 17:05: Potassium 5.8 H, Magnesium 2.0 09/20/22 17:05: Phosphorus 5.8 H 09/20/22 18:36: Hgb 7.8 L, Hct 26.3 L 09/20/22 18:36: Sodium 143, Potassium 5.7 H, Chloride 115 H, Carbon Dioxide 17.0 L, Anion Gap 11, BUN 56 H, Creatinine 1.86 H, Estim Creat Clear Calc 17.56, Est GFR (MDRD) Af Amer 34 L, Est GFR (MDRD) Non-Af 28 L, BUN/Creatinine Ratio 30.1 H , Glucose 188 H, Calcium 7.2 L 09/20/22 18:36: PT 38.4 H, INR 4.0 H* 09/20/22 19:00: Lactic Acid 5.1 H* 09/20/22 22:10: Sodium 145, Potassium 4.8, Chloride 115 H, Carbon Dioxide 22.0, Anion Gap 8, BUN 55 H, Creatinine 2.04 H, Estim Creat Clear Calc 16.01, Est GFR (MDRD) Af Amer 30 L, Est GFR (MDRD) Non-Af 25 L, BUN/Creatinine Ratio 27.0 H, Glucose 210 H, Calcium 7.7 L 09/20/22 22:10: Troponin I High Sens 10 09/21/22 01:00: Troponin I High Sens 8 09/21/22 04:50: WBC 10.2, RBC 3.86 L, Hgb 11.1 L, Hct 35.2 L, MCV 91.2 D, MCH 28.8, MCHC 31.5 L, RDW Std Deviation 53.2 H, RDW Coeff of Uriel 18.0 H, Plt Count 170, MPV 10.1, Immature Gran % (Auto) 1.200 H, Neut % (Auto) 85.8 H, Lymph % (Auto) 5.7 L, [place] % (Auto) 7.1, Eos % (Auto) 0.0, Baso % (Auto) 0.2, Absolute Neuts (auto) 8.8 H, Absolute Lymphs (auto) 0.58 L, Nucleated RBC % 0.6, Anisocytosis 1+ 09/21/22 04:50: PT 18.8 H, INR 1.6 09/21/22 04:50: Sodium 144, Potassium 5.0, Chloride 114 H, Carbon Dioxide 22.0, Anion Gap 8, BUN 58 H, Creatinine 1.91 H, Estim Creat Clear Calc 18.89, Est GFR (MDRD) Af Amer 33 L, Est GFR (MDRD) Non-Af 27 L, BUN/Creatinine Ratio 30.4 H, Glucose 151 H, Calcium 7.5 L, Total Bilirubin 0.80, AST 24, ALT 13, Alkaline Phosphatase 83, Troponin I High Sens 9, Total Protein 5.3 L, Albumin 2.1 L, Globulin 3.2, Albumin/Globulin Ratio 0.7 L ABG Data ABG results: ABG 09/20/22 09/20/22 18:28 18:28 Specimen Type ART ART Sample Site L Brach L Brach pH 7.28 L 7.28 L Bicarbonate Actual 14.2 L 14.2 L Total CO2 15 15 Base Excess -13 L -13 L O2 Saturation 97 97 O2 % 30 30 ABG pCO2 30.5 L 30.5 L ABG pO2 98 98 Mika Test Positive Positive Respiration Rate 12 12 O2 Delivery Device BiPAP BiPAP POC PEEP 8 8 POC Pressure Suppt 12 12 Rhythm Strip Rhythm Strip: A-fib Rate: 88 Ectopy: None Physical Exam Narrative GENERAL: cooperative HEENT: Atraumatic; normocephalic EYES; Anicteric, Normal Conjunctiva NECK; supple, normal thyroid, RESPIRATORY: Diminished to auscultation CARDIOVASCULAR: Regular S1 S2, GI: soft, normoactive bowel sounds, : No Renal angle tenderness; EXTREMITIES: No edema, no clubbing, MUSCULOSKELETAL: no muscle wasting NEURO: Awake; no lateralizing signs. SKIN: No Rash PSYCH; Flat affect Assessment & Plan Assessment/Plan (1) Hemorrhagic shock: PLAN: Patient admitted with hemorrhagic shock Admssion Hg 4.8 and is currently 11.7. Her INR is 1.6 which is down from 9.7. Patient is not on BiPAP anymore but does not want to undergo endoscopy. (2) MAX (acute kidney injury): PLAN: Most likely prerenal from hemorrhagic shock. Continuing to improve after IVF and blood (3) Acute blood loss anemia: PLAN: Status post transfusion of multiple units of packed red blood cells Repeat H&H (4) Coagulopathy: PLAN: INR >9.7 on admission Pt received vitamin K and PCC. 09/04: INR 1.4. Hold Warfarin (5) GI bleed: PLAN: due to coagulopathy and history of duodenal ulcers continue continue PPI drip and octreotide drip (6) History of mitral valve replacement with mechanical valve: PLAN: Try to keep INR around 2.5 at lower level because of hemorrhagic shock and consistent GI bleed Charges/Coding Visit Charges Inpatient E&M: 54576 [facility] Hosp L3
[2022-09-21 14:08] LABS: Pathologist Review Reviewed
--- NOTE | 2022-09-21 15:39 | CASEMGMT ---
ANDRES ANGUIANO Readmission Review: Index: 08/31 thru 09/05 Dx: GI Bleed, ABLA Readmission: 09/20/22 Dx: GI Bleed, ABLA, Hemorrhagic Shock Pt lives alone in a two story home with the support of her sons. Pt states she has been doing well since her previous admission and states her sons have been bringing her breakfast, dinner, and a evening snack. Pt states she has been able to ambulate with her walker to get to the bathroom. States she has a bucket that she keeps at her bedside in case she doesn't think she can make it to the bathroom. Pt states her sons had to lift her into her home in her w/c at discharge from index but states she has been able to regain her strength and is doing much better this time. Discussed that pt declined HHC at index [facility] and pt continues to state she does not feel she needs these services. States she was able to gain back her strength in her legs on her own and does not see a need for nurse visits. Explained HHC would be a resource to her and may assist her in not having to return to the hospital. Pt continued to decline. Discussed that pt had revoked hospice services previously. Pt stated she wanted to be able to see her own doctors who know her the best and not solely the hospice practitioners. Discussed palliative care which pt was open to. Discussed with Dr. Mccall is agreeable. Order obtained and consult will be faxed. Pt provided permission to call her son. This ANDRES ANGUIANO contacted pt's son Gildardo who concurred that pt has been doing well since discharged. Pt's son states he is retired and able to assist pt as needed. States he has been managing pt's medications and requests that if any could be reduced he feels this would be beneficial. Pt's son also agrees that HHC would not be needed and is agreeable to palliative consult. Will continue to monitor and assist with DC needs as identified. Cristal Moseley RN CM
[2022-09-21] MEDS: Ipratropium/Albuterol Sulfate 3 ML AMPUL.NEB INHALATION (19:18)
--- NOTE | 2022-09-21 23:33 | CPS ---
Patient refuses PAP at this time
[2022-09-22] VITALS (22 sets, daily range): BP systolic 86–119; BP diastolic 48–70; PULSE 65–119; RESP 15–26; TEMP 36.5–37.1; O2SAT 92–100
[2022-09-22] MEDS: 0.9% Saline Lock 10 ML Syringe IV (06:08)
--- NOTE | 2022-09-22 07:34 | PCM.PN.HOSP ---
Reason for Visit Reason for Visit: Diagnoses Acute posthemorrhagic anemia (09/20/22) Coagulation defect, unspecified (09/20/22) Gastrointestinal hemorrhage, unspecified (09/20/22) Subjective Subjective Patient seen much more cooperative compared to the day prior. Patient did agree with palliative care. Patient Coumadin started plan is to achieve INR goal of 2.5. Ordered daily INR for monitoring Objective Data Objective Data Vital Signs: Vital Signs Temp Pulse Resp BP Pulse Ox O2 Del Method O2 Flow Rate 98.5 F 102 H 22 H 94/63 98 Nasal Cannula 3 09/22/22 06:00 09/22/22 06:00 09/22/22 06:00 09/22/22 06:00 09/22/22 06:00 09/22/22 06:00 09/22/22 06:00 FiO2 25 09/21/22 10:20 Oxygen Flow Rate (L/min) 3 Oxygen Delivery Method Nasal Cannula Weight: 53.2 kg Body Mass Index (BMI) 18.3 Intake & Output: Intake and Output for Last 24 Hours 09/20/22 09/21/22 09/22/22 23:59 23:59 23:59 Intake Total 1935.5 / 1935.5 2187.00 / 2412.25 325.25 / 325.25 Output Total 125 / 275 850 / 1025 325 / 325 Balance 1810.5 / 1660.5 1337.00 / 1387.25 0.25 / 0.25 Medical Nutrition Assessment Dietitian: Malnutrition Criteria Met Start: 09/21/22 11:38 Freq: Status: Active Protocol: Document 09/21/22 11:38 AG (Rec: 09/21/22 11:38 [id number]) Nutrition Malnutrition Evidence of Malnutrition Exists Yes Malnutrition (severe): Chronic Evidenced By Suboptimal Energy Intake ( Severe),Physical Changes ( Severe) Clinical Problem Chronic Disease or Condition Related Malnutrition Etiology chronic, severe malnutrition related to inadequate energy intake, GI dysfunction Signs/Symptoms as evidenced by estimated PO intake meeting <75% of estimated energy needs > 3 months; severe muscle wasting/ fat loss evident in orbital, clavicle, acromion, and temporal areas per physical exam Status Active Problem Recommendation Dietitian Recommendations/Changes recommend advance diet as tolerated to regular w/ 8oz chocolate [place] Instant Breakfast TID w/ meals for additional calories/protein if consumed. Lab / Micro Data Result Diagrams: 09/21/22 04:50 09/21/22 04:50 Labs: Laboratory Results - last 24 hr 09/20/22 14:10: Diff Path Review Reviewed 09/20/22 14:10: Crossmatch See Detail Rhythm Strip Rhythm Strip: A-fib Rate: 88 Ectopy: None Physical Exam Narrative GENERAL: cooperative HEENT: Atraumatic; normocephalic EYES; Anicteric, Normal Conjunctiva NECK; supple, normal thyroid, RESPIRATORY: Diminished to auscultation CARDIOVASCULAR: Regular S1 S2, GI: soft, normoactive bowel sounds, : No Renal angle tenderness; EXTREMITIES: No edema, no clubbing, MUSCULOSKELETAL: no muscle wasting NEURO: Awake; no lateralizing signs. SKIN: No Rash PSYCH; Flat affect Assessment & Plan Assessment/Plan (1) Hemorrhagic shock: (2) Upper GI bleed: PLAN: Plan Patient is a 81-year-old lady with multiple comorbidities including valvular heart disease with mitral valve replacement with mechanical valve on systemic anticoagulation with Coumadin presented to the emergency department with lightheadedness. Patient was found to be hypotensive and anemic and assessment of acute hemorrhagic shock secondary to GI bleed was made admitted to the intensive care unit for further management 1. Hemorrhagic shock ? Secondary to GI bleed and the patient with significant risk factors including use of systemic anticoagulation with Coumadin, cirrhosis of the liver with thrombocytopenia. Patient admitted to the intensive care unit started on Protonix drip as well as octreotide drip in addition to IV fluid resuscitation consult placed to GI patient seen by Dr. Brownlee. Emergency endoscopic evaluation was deferred since patient had to be intubated prior to the procedure as she had declined intubation ? 09/22/2022 AM labs pending. Patient remains hemodynamically stable otherwise 2. Coagulopathy ? Secondary to Coumadin use INR on admission was 9.7 patient did receive vitamin K as well as PCC. Subsequent monitoring with daily INR ordered -09/22/2022; Patient Coumadin started plan is to achieve INR goal of 2.5. Ordered daily INR for monitoring 3. Acute hypoxic respiratory failure ? Patient had to be placed on BiPAP and subsequently admitted to the intensive care unit. ABG did demonstrate respiratory acidosis 4. Hyperkalemia ? This was treated per protocol with subsequent monitoring of electrolytes ordered 5. Chronic kidney disease stage IV ? Kidney function close to her baseline 5. Valvular heart disease ? With history of mitral valve replacement with [facility] patient is on systemic anticoagulation with warfarin presented with coagulopathy which had to be reversed in view of GI bleed 7. Chronic congestive heart failure with preserved ejection fraction ? Currently stable 8. Paroxysmal atrial fibrillation ? Rate controlled on metoprolol (held in view of hypotension). Patient is on systemic anticoagulation with warfarin held in view of presentation 9. Hypothyroidism - Patient is on levothyroxine home dose continued 10. Lactic acidosis ? Secondary to hypoperfusion from patient hemorrhagic shock secondary to GI bleed 11. History of tachybradycardia syndrome ? Status post pacemaker placement 12. COPD ? Bronchodilator treatment as needed 13. Depression with anxiety ? Patient is on venlafaxine did continue 14. Tobacco dependence - Counseled on cessation, offered nicotine patch for tobacco cravings 15. ?chronic, severe malnutrition related to inadequate energy intake, GI dysfunction as evidenced by estimated PO intake meeting <75% of estimated energy needs > 3 months; severe muscle wasting/fat loss evident in orbital, clavicle, acromion, and temporal areas per physical exam, recommend advance diet as tolerated to regular w/ 8oz chocolate [place] Instant Breakfast TID w/ meals for additional calories/protein if consumed. Time spent in the patient's overall evaluation,decision-making process, review of diagnostic data, adjustment of management, discussion with other providers, nursing nursing and ancillary staff involved in patient's care documentation, 60 minutes Charges/Coding Visit Charges Inpatient E&M: 54689 Subs Hosp L3
--- NOTE | 2022-09-22 08:42 | PCM.PN.INT ---
Assessment & Plan Assessment/Plan (1) Upper GI bleed: PLAN: Patient stated the last time she passed blood per rectum was about 4 days ago. She was transfused and H&H remained stable after reversal of anticoagulation. - Because of high risk of thromboembolic events from her mechanical heart valve without anticoagulation, recommend restarting heparin first after okayed by GI. - As patient is stable at this time and transferring to the regular floor, critical care medicine will sign off. Thank you for referring your pleasant patient to [facility]. Please call if further input is needed (2) Supratherapeutic INR: (3) Acute kidney injury superimposed on CKD: (4) History of mitral valve replacement with mechanical valve: (5) Acute respiratory failure with hypoxemia: (6) COPD (chronic obstructive pulmonary disease): QUALIFIERS: COPD type: unspecified COPD Qualified Code(s): J44.9 - Chronic obstructive pulmonary disease, unspecified (7) Atrial fibrillation: Subjective Subjective Patient is doing well with no respiratory, GI, or cardiac complaints. She is transferring out of ICU to floor today. Objective Data Objective Data Vital Signs: Vital Signs Temp Pulse Resp BP Pulse Ox O2 Del Method O2 Flow Rate 98.5 F 102 H 22 H 94/63 98 Nasal Cannula 3 09/22/22 06:00 09/22/22 06:00 09/22/22 06:00 09/22/22 06:00 09/22/22 06:00 09/22/22 06:00 09/22/22 06:00 FiO2 25 09/21/22 10:20 Oxygen Flow Rate (L/min) 3 Oxygen Delivery Method Nasal Cannula Weight: 117 lb 4.575 oz Body Mass Index (BMI) 18.3 ABG 2/8 pCO2 30, pO2 98 Medications reviewed, she continues on octreotide, DuoNeb, Rocephin, Coagulopathy was reversed with vitamin K and FFP, hemoglobin is now stable at 11 from her admission level of 4.5. No further hypotension. Intake & Output: Intake and Output for Last 24 Hours 09/20/22 09/21/22 09/22/22 23:59 23:59 23:59 Intake Total 1935.5 / 1935.5 2187.00 / 2412.25 325.25 / 325.25 Output Total 125 / 275 850 / 1025 325 / 325 Balance 1810.5 / 1660.5 1337.00 / 1387.25 0.25 / 0.25 Medical Nutrition Assessment Dietitian: Malnutrition Criteria Met Start: 09/21/22 11:38 Freq: Status: Active Protocol: Document 09/21/22 11:38 MONO (Rec: 09/21/22 11:38 AG [id number]) Nutrition Malnutrition Evidence of Malnutrition Exists Yes Malnutrition (severe): Chronic Evidenced By Suboptimal Energy Intake ( Severe),Physical Changes ( Severe) Clinical Problem Chronic Disease or Condition Related Malnutrition Etiology chronic, severe malnutrition related to inadequate energy intake, GI dysfunction Signs/Symptoms as evidenced by estimated PO intake meeting <75% of estimated energy needs > 3 months; severe muscle wasting/ fat loss evident in orbital, clavicle, acromion, and temporal areas per physical exam Status Active Problem Recommendation Dietitian Recommendations/Changes recommend advance diet as tolerated to regular w/ 8oz chocolate [place] Instant Breakfast TID w/ meals for additional calories/protein if consumed. Lab / Micro Data Attestation: I reviewed the patient's lab results. Result Diagrams: 09/21/22 04:50 09/21/22 04:50 Labs: Laboratory Results - last 24 hr 09/20/22 14:10: Diff Path Review Reviewed ABG Data Attestation: I personally reviewed and interpreted this ABG as follows: Interpretation: mild acute respiratory alkalosis 09/20/22 Rhythm Strip Rhythm Strip: A-fib Rate: 88 Ectopy: None Physical Exam Narrative Well-developed pleasant woman who is originally encountered napping in bed, awaken easily and pleasantly for our visit. HEENT normocephalic atraumatic extraoculars are intact, pupils equal and reactive, tracks, mucous membranes are moist, neck is supple with no JVD. Chest is clear bilaterally with no wheezes rales or rhonchi Cardiac loud S1 and S2 with mechanical valve present heard throughout the chest and abdomen. Abdomen is soft, nontender, distended. Extremities have no clubbing cyanosis or edema Neurologic exam is without tremor, nonfocal grossly, alert and oriented x3 Skin is warm and dry Charges/Coding Visit Charges Inpatient E&M: 10766 Subs Hosp L2
[2022-09-22] MEDS: Folic Acid 1 MG Tablet PO (08:46)
[2022-09-22] MEDS: Midodrine HCl 5 MG Tablet 10 MG PO ×3 (08:46→17:22)
[2022-09-22] MEDS: Ferrous Sulfate 325 MG Tablet PO ×2 (08:46→17:22)
[2022-09-22] MEDS: Cyanocobalamin 500 MCG Tablet 2500 MCG PO (08:47)
[2022-09-22] MEDS: Ascorbic Acid 500 MG Tablet PO ×2 (08:47→17:22)
[2022-09-22] MEDS: Ceftriaxone 1 GM/50 ML BAG IV (08:49)
[2022-09-22 09:09] LABS: International Normalized Ratio 1.6; Prothrombin Time (Protime)PT. 18.9 SECONDS (11.7-14.9)
--- NOTE | 2022-09-22 11:24 | NURSING ---
report called to [facility] for transfer to room 105, son informed of room number
[2022-09-22] MEDS: Ipratropium/Albuterol Sulfate 3 ML AMPUL.NEB INHALATION ×2 (13:34→19:29)
[2022-09-22 16:03] LABS: Absolute Neutrophil Count 7.8 X10^3/uL (2.0-7.7); Basophil# 0.02 X10^3/uL; Basophil% 0.2 % (0-1); Hematocrit 34.4 % (37-47); Hemoglobin 10.8 g/dL (12.0-15.0); Lymphocyte % 4.5 % (19-41); Mean Corp Hgb Conc 31.4 g/dL (32-36); Mean Corpuscular Hgb 29.9 pg (27.0-32.0); Mean Corpuscular Volume 95.3 fL (81-99); Mean Platelet Vol. 10.3 fl (6.2-12.0); Monocyte# 0.66 X10^3/uL; Monocyte% 7.3 % (0-10); NRBC Flagged by Analyzer 0.3 % (0-5); Neutrophil # 7.81 X10^3/uL (2.7-7.7); POSITIVE DIFFERENTIAL YES; Platelet Count 152 K/mm3 (150-450); RBC Distribution Width CV 19.3 % (11.6-14.6); Red Blood Count 3.61 M/mm3 (4.2-5.4)
[2022-09-22 16:06] LABS: Differential Indicated SCAN CRITERIA MET
[2022-09-22 16:44] LABS: Anion Gap 9 (5-15); BUN 45 mg/dL (7-18); Calcium,Total 7.8 mg/dL (8.5-10.1); Chloride 112 mmol/L (98-107); EST Glomerular Filtration Rate 29 mL/min (>60); Est Glom Filt Rate - Afr Amer 35 mL/min (>60); Estimated Creatinine Clearance 20.04 ml/min; Glucose 202 mg/dL (74-106); Magnesium 2.1 mg/dL (1.6-2.6); Phosphorus 3.8 mg/dL (2.5-4.9); Potassium 4.3 mmol/L (3.5-5.1); Sodium Level 142 mmol/L (136-145)
[2022-09-22 17:00] LABS: Differential Comment SCANNED
[2022-09-22] MEDS: Jantoven 2 MG Tablet PO (17:23)
--- NOTE | 2022-09-22 17:24 | PN_ITS ---
Subjective Subjective Patient is a lot more cooperative today and seems in better spirits today. She has agreed to palliative care. She was in hospice after previous admission. Objective Data Objective Data Vital Signs: Vital Signs Temp Pulse Resp BP Pulse Ox O2 Del Method O2 Flow Rate 97.8 F 98 17 96/58 L 93 Nasal Cannula 1 09/22/22 17:17 09/22/22 17:17 09/22/22 17:17 09/22/22 17:17 09/22/22 17:17 09/22/22 17:17 09/22/22 17:17 FiO2 25 09/21/22 10:20 Oxygen Flow Rate (L/min) 1 Oxygen Delivery Method Nasal Cannula Weight: 117 lb 4.575 oz Body Mass Index (BMI) 18.3 Intake & Output: Intake and Output for Last 24 Hours 09/20/22 09/21/22 09/22/22 23:59 23:59 23:59 Intake Total 1935.5 / 1935.5 2187.00 / 2412.25 1012.13 / 1012.13 Output Total 125 / 275 850 / 1025 325 / 325 Balance 1810.5 / 1660.5 1337.00 / 1387.25 687.13 / 687.13 Medical Nutrition Assessment Dietitian: Malnutrition Criteria Met Start: 09/21/22 11:38 Freq: Status: Active Protocol: Document 09/21/22 11:38 AG (Rec: 09/21/22 11:38 [id number]) Nutrition Malnutrition Evidence of Malnutrition Exists Yes Malnutrition (severe): Chronic Evidenced By Suboptimal Energy Intake ( Severe),Physical Changes ( Severe) Clinical Problem Chronic Disease or Condition Related Malnutrition Etiology chronic, severe malnutrition related to inadequate energy intake, GI dysfunction Signs/Symptoms as evidenced by estimated PO intake meeting <75% of estimated energy needs > 3 months; severe muscle wasting/ fat loss evident in orbital, clavicle, acromion, and temporal areas per physical exam Status Active Problem Recommendation Dietitian Recommendations/Changes recommend advance diet as tolerated to regular w/ 8oz chocolate [place] Instant Breakfast TID w/ meals for additional calories/protein if consumed. Lab / Micro Data Result Diagrams: 09/22/22 15:50 09/22/22 15:50 Labs: Laboratory Results - last 24 hr 09/22/22 08:40: PT 18.9 H, INR 1.6 09/22/22 15:50: WBC 9.0, RBC 3.61 L, Hgb 10.8 L, Hct 34.4 L, MCV 95.3, MCH 29.9, MCHC 31.4 L, RDW Std Deviation 61.0 H, RDW Coeff of Uriel 19.3 H, Plt Count 152, MPV 10.3, Immature Gran % (Auto) 1.000 H, Neut % (Auto) 87.0 H, Lymph % (Auto) 4.5 L, [place] % (Auto) 7.3, Eos % (Auto) 0.0, Baso % (Auto) 0.2, Absolute Neuts (auto) 7.8 H, Absolute Lymphs (auto) 0.40 L, Nucleated RBC % 0.3, Differential Comment SCANNED 09/22/22 15:50: Sodium 142, Potassium 4.3, Chloride 112 H, Carbon Dioxide 21.0, Anion Gap 9, BUN 45 H, Creatinine 1.80 H, Estim Creat Clear Calc 20.04, Est GFR (MDRD) Af Amer 35 L, Est GFR (MDRD) Non-Af 29 L, BUN/Creatinine Ratio 25.0 H, Glucose 202 H, Calcium 7.8 L, Phosphorus 3.8, Magnesium 2.1 ABG Data ABG results: ABG 09/20/22 18:28 Specimen Type Cancelled Sample Site Cancelled pH Cancelled Bicarbonate Actual Cancelled Total CO2 Cancelled Base Excess Cancelled O2 Saturation Cancelled O2 % Cancelled ABG pCO2 Cancelled ABG pO2 Cancelled Mika Test Cancelled Respiration Rate Cancelled O2 Delivery Device Cancelled Liter Flow Cancelled Minute Volume Cancelled Vent Mode Cancelled Inspiratory Time Cancelled Expiratory Time Cancelled Tidal Volume Cancelled Mean Airway Pressure Cancelled POC PEEP Cancelled Peak Inspir Pressure Cancelled POC Pressure Suppt Cancelled Pressure Control Cancelled Pressure High Cancelled Pressure Low Cancelled Time High Cancelled Time Low Cancelled EPAP Cancelled IPAP Cancelled Blood Gas Comments Cancelled Crit Call To/Read Back Cancelled Blood Gas Notified Whom Cancelled Blood Gas Notified Time Cancelled Clinical Comments Cancelled Rhythm Strip Rhythm Strip: A-fib Rate: 88 Ectopy: None Physical Exam Narrative Well-developed pleasant woman who is originally encountered napping in bed, awaken easily and pleasantly for our visit. HEENT normocephalic atraumatic extraoculars are intact, pupils equal and reactive, tracks, mucous membranes are moist, neck is supple with no JVD. Chest is clear bilaterally with no wheezes rales or rhonchi Cardiac loud S1 and S2 with mechanical valve present heard throughout the chest and abdomen. Abdomen is soft, nontender, distended. Extremities have no clubbing cyanosis or edema Neurologic exam is without tremor, nonfocal grossly, alert and oriented x3 Skin is warm and dry Assessment & Plan Assessment/Plan (1) Upper GI bleed: PLAN: Patient stated the last time she passed blood per rectum was about 4 days ago. She was transfused and H&H remained stable after reversal of anticoagulation. - Because of high risk of thromboembolic events from her mechanical heart valve without anticoagulation. Heparin can be started. Advance diet as tolerated. (2) Supratherapeutic INR: (3) Acute kidney injury superimposed on CKD: (4) History of mitral valve replacement with mechanical valve: (5) Acute respiratory failure with hypoxemia: (6) COPD (chronic obstructive pulmonary disease): QUALIFIERS: COPD type: unspecified COPD Qualified Code(s): J44.9 - Chronic obstructive pulmonary disease, unspecified (7) Atrial fibrillation: Charges/Coding Visit Charges Inpatient E&M: 97899 Subs Hosp L2
[2022-09-22] MEDS: Venlafaxine XR 37.5 MG Capsule PO (22:41)
[2022-09-23] VITALS (10 sets, daily range): BP systolic 88–109; BP diastolic 52–66; PULSE 89–115; RESP 16–20; TEMP 36.3–37.2; O2SAT 88–99
[2022-09-23] MEDS: Levothyroxine 100 MCG Tablet PO (05:15)
[2022-09-23 05:51] LABS: Absolute Lymphocyte Count 0.42 X10^3/uL (0.83-4.51); Absolute Neutrophil Count 6.2 X10^3/uL (2.0-7.7); Basophil# 0.02 X10^3/uL; Basophil% 0.3 % (0-1); Hematocrit 35.1 % (37-47); Hemoglobin 10.6 g/dL (12.0-15.0); Lymphocyte # 0.42 X10^3/ul (0.83-4.51); Lymphocyte % 5.8 % (19-41); Mean Corp Hgb Conc 30.2 g/dL (32-36); Mean Corpuscular Hgb 29.1 pg (27.0-32.0); Mean Corpuscular Volume 96.4 fL (81-99); Mean Platelet Vol. 10.4 fl (6.2-12.0); Monocyte# 0.51 X10^3/uL; Monocyte% 7.1 % (0-10); NRBC Flagged by Analyzer 0.3 % (0-5); Neutrophil # 6.16 X10^3/uL (2.7-7.7); Neutrophil % 85.7 % (47-70); POSITIVE DIFFERENTIAL YES; Platelet Count 141 K/mm3 (150-450); RBC Distribution Width CV 19.2 % (11.6-14.6); RBC Distribution Width SD 61.4 fl (35.1-43.9); Red Blood Count 3.64 M/mm3 (4.2-5.4); White Blood Count 7.2 K/mm3 (4.4-11.0)
[2022-09-23 05:57] LABS: Differential Indicated SCAN CRITERIA MET
[2022-09-23 05:59] LABS: International Normalized Ratio 2.1; Prothrombin Time (Protime)PT. 22.9 SECONDS (11.7-14.9)
[2022-09-23 06:07] LABS: Anion Gap 9 (5-15); BUN 40 mg/dL (7-18); BUN/Creat Ratio 26.3 RATIO (10-20); Calcium,Total 7.7 mg/dL (8.5-10.1); Chloride 112 mmol/L (98-107); Creatinine, Serum 1.52 mg/dL (0.55-1.02); EST Glomerular Filtration Rate 35 mL/min (>60); Est Glom Filt Rate - Afr Amer 42 mL/min (>60); Estimated Creatinine Clearance 23.74 ml/min; Glucose 168 mg/dL (74-106); Potassium 4.2 mmol/L (3.5-5.1); Sodium Level 141 mmol/L (136-145)
[2022-09-23 06:18] LABS: Differential Comment SCANNED
[2022-09-23] MEDS: Ipratropium/Albuterol Sulfate 3 ML AMPUL.NEB INHALATION ×2 (07:45→14:10)
[2022-09-23] MEDS: Midodrine HCl 5 MG Tablet 10 MG PO ×2 (08:20→11:36)
[2022-09-23] MEDS: Folic Acid 1 MG Tablet PO (08:20)
[2022-09-23] MEDS: Cyanocobalamin 500 MCG Tablet 2500 MCG PO (08:20)
[2022-09-23] MEDS: Ascorbic Acid 500 MG Tablet PO (08:20)
[2022-09-23] MEDS: Jantoven 2 MG Tablet PO (10:06)
--- NOTE | 2022-09-23 10:24 | PN_ITS ---
Subjective Subjective Heparin drip was initiated yesterday and she did not have any signs of GI bleeding overnight. Objective Data Objective Data Vital Signs: Vital Signs Temp Pulse Resp BP Pulse Ox O2 Del Method O2 Flow Rate 97.7 F L 105 H 18 90/66 93 Room Air 92 09/23/22 08:13 09/23/22 08:13 09/23/22 08:13 09/23/22 08:13 09/23/22 08:13 09/23/22 08:13 09/23/22 08:09 FiO2 25 09/21/22 10:20 Oxygen Flow Rate (L/min) 92 Oxygen Delivery Method Room Air Weight: 117 lb 11.629 oz Body Mass Index (BMI) 18.3 Intake & Output: Intake and Output for Last 24 Hours 09/21/22 09/22/22 09/23/22 23:59 23:59 23:59 Intake Total 2187.00 / 2412.25 1482.13 / 1482.13 350 / 350 Output Total 850 / 1025 675 / 675 200 / 200 Balance 1337.00 / 1387.25 807.13 / 807.13 150 / 150 Medical Nutrition Assessment Dietitian: Malnutrition Criteria Met Start: 09/21/22 11:38 Freq: Status: Active Protocol: Document 09/21/22 11:38 AG (Rec: 09/21/22 11:38 AG [id number]) Nutrition Malnutrition Evidence of Malnutrition Exists Yes Malnutrition (severe): Chronic Evidenced By Suboptimal Energy Intake ( Severe),Physical Changes ( Severe) Clinical Problem Chronic Disease or Condition Related Malnutrition Etiology chronic, severe malnutrition related to inadequate energy intake, GI dysfunction Signs/Symptoms as evidenced by estimated PO intake meeting <75% of estimated energy needs > 3 months; severe muscle wasting/ fat loss evident in orbital, clavicle, acromion, and temporal areas per physical exam Status Active Problem Recommendation Dietitian Recommendations/Changes recommend advance diet as tolerated to regular w/ 8oz chocolate [place] Instant Breakfast TID w/ meals for additional calories/protein if consumed. Lab / Micro Data Result Diagrams: 09/23/22 05:25 09/23/22 05:25 Labs: Laboratory Results - last 24 hr 09/22/22 15:50: WBC 9.0, RBC 3.61 L, Hgb 10.8 L, Hct 34.4 L, MCV 95.3, MCH 29.9, MCHC 31.4 L, RDW Std Deviation 61.0 H, RDW Coeff of Uriel 19.3 H, Plt Count 152, MPV 10.3, Immature Gran % (Auto) 1.000 H, Neut % (Auto) 87.0 H, Lymph % (Auto) 4.5 L, [place] % (Auto) 7.3, Eos % (Auto) 0.0, Baso % (Auto) 0.2, Absolute Neuts (auto) 7.8 H, Absolute Lymphs (auto) 0.40 L, Nucleated RBC % 0.3, Differential Comment SCANNED 09/22/22 15:50: Sodium 142, Potassium 4.3, Chloride 112 H, Carbon Dioxide 21.0, Anion Gap 9, BUN 45 H, Creatinine 1.80 H, Estim Creat Clear Calc 20.04, Est GFR (MDRD) Af Amer 35 L, Est GFR (MDRD) Non-Af 29 L, BUN/Creatinine Ratio 25.0 H, Glucose 202 H, Calcium 7.8 L, Phosphorus 3.8, Magnesium 2.1 09/23/22 05:25: WBC 7.2, RBC 3.64 L, Hgb 10.6 L, Hct 35.1 L, MCV 96.4, MCH 29.1, MCHC 30.2 L, RDW Std Deviation 61.4 H, RDW Coeff of Uriel 19.2 H, Plt Count 141 L, MPV 10.4, Immature Gran % (Auto) 1.100 H, Neut % (Auto) 85.7 H, Lymph % (Auto) 5.8 L, [place]icks[place] % (Auto) 7.1, Eos % (Auto) 0.0, Baso % (Auto) 0.3, Absolute Neuts (auto) 6.2, Absolute Lymphs (auto) 0.42 L, Nucleated RBC % 0.3, Differential Comment SCANNED 09/23/22 05:25: Sodium 141, Potassium 4.2, Chloride 112 H, Carbon Dioxide 20.0 L , Anion Gap 9, BUN 40 H, Creatinine 1.52 H, Estim Creat Clear Calc 23.74, Est GFR (MDRD) Af Amer 42 L, Est GFR (MDRD) Non-Af 35 L, BUN/Creatinine Ratio 26.3 H , Glucose 168 H, Calcium 7.7 L 09/23/22 05:25: PT 22.9 H, INR 2.1 Rhythm Strip Rhythm Strip: A-fib Rate: 88 Ectopy: None Physical Exam Narrative HEENT normocephalic atraumatic extraoculars are intact, pupils equal and reactive, tracks, mucous membranes are moist, neck is supple with no JVD. Chest is clear bilaterally with no wheezes rales or rhonchi Cardiac loud S1 and S2 with mechanical valve present heard throughout the chest and abdomen. Abdomen is soft, nontender, distended. Extremities have no clubbing cyanosis or edema Neurologic exam is without tremor, nonfocal grossly, alert and oriented x3 Skin is warm and dry Assessment & Plan Assessment/Plan (1) Upper GI bleed: PLAN: Patient stated the last time she passed blood per rectum was about 4 days ago. She was transfused and H&H remained stable after reversal of anticoagulation. - Because of high risk of thromboembolic events from her mechanical heart valve without anticoagulation. Heparin was started. Advance diet as tolerated. No plans for endoscopy at this time. (2) Supratherapeutic INR: (3) Acute kidney injury superimposed on CKD: (4) History of mitral valve replacement with mechanical valve: (5) Acute respiratory failure with hypoxemia: (6) COPD (chronic obstructive pulmonary disease): QUALIFIERS: COPD type: unspecified COPD Qualified Code(s): J44.9 - Chronic obstructive pulmonary disease, unspecified (7) Atrial fibrillation: Charges/Coding Visit Charges Inpatient E&M: 69239 Subs Hosp L2
[2022-09-23] MEDS: Ceftriaxone 1 GM/50 ML BAG IV (10:56)
[2022-09-23] MEDS: Ferrous Sulfate 325 MG Tablet PO (11:36)
--- NOTE | 2022-09-23 12:03 | DCINST_ITS ---
Discharge Instructions Diet Discharge Diet: No restrictions Activity Discharge Activity: Return to Normal Activity Weight Bearing Status: Full weight bearing Follow Up Care Test Results: Test results from this visit will be discussed in further detail at your follow- up appointment, if applicable. Discharge Plan Admission Admit Date/Time: 09/20/22 16:10 Primary Reason for Your Visit: GI bleed, coagulopathy Attending Provider: Gildardo Mcbride Primary Care Provider: Kodak Muñoz Consulting Providers: Blanquita Guzman ; Bry Gomes ; Ge Mccall Instructions Additional Instructions / Restrictions: Wear oxygen at 2 L/min via nasal cannula when ambulating Follow-up with palliative care Discharge Orders/Prescriptions Prescriptions: Continued ferrous sulfate 325 MG tablet 325 mg PO BID Label Comments: Iron supplement folic acid 1 MG tablet 1 mg PO DAILY@0800 Label Comments: Supplement cyanocobalamin (vitamin B-12) 2,500 MCG tablet 2,500 mcg PO DAILY Label Comments: Supplement cholecalciferol (vitamin D3) 1,000 UNIT capsule 1,000 unit PO DAILY venlafaxine 37.5 mg tablet 37.5 mg PO QHS levothyroxine 100 mcg tablet 100 mcg PO DAILY Label Comments: take 1 tablet by mouth once daily midodrine 10 mg tablet 10 mg PO TID Qty: 90 0RF Rx Instructions: do not give last dose of day after 6PM or within 4 hrs of bedtime oxycodone 5 mg Tablet 5 mg PO Q4H PRN (Reason: Pain) metoprolol succinate 25 mg Tablet Extended Release 24 Hr 12.5 mg PO BID Qty: 60 0RF pantoprazole [Protonix] 40 mg tablet,delayed release (DR/EC) 40 mg PO BID Qty: 60 2RF Rx Instructions: advised TWICE DAILY FOR 8 WEEKS THEN ONCE DAILY ascorbic acid (vitamin C) 500 mg tablet 500 mg PO BID Qty: 60 2RF warfarin 2 mg tablet 2 mg PO DAILY Label Comments: USE DIRECTED SEE ATTACHED PRINTOUT Discontinued magnesium 250 MG tablet 250 mg PO DAILY furosemide 40 mg tablet 40 mg PO DAILY Qty: 30 3RF Rx Instructions: Take an additional 40 mg dose at 5 PM for increased leg swelling or weight gain 5 pounds in 1 week. potassium chloride 20 mEq tablet,ER particles/crystals 20 meq PO BID Qty: 180 3RF Referrals / Follow Up: Kodak Muñoz MD [Primary Care Provider] - In 1 Week (You will need your INR rechecked) Disposition Disposition (needs filled in before D/C Order can be placed): Home, Self Care
--- NOTE | 2022-09-23 12:23 | CASEMGMT ---
ANDRES ANGUIANO updated by nursing the patient will need home oxygen at discharge with ambulation. ANDRES ANGUIANO also updated by Dr. Mcbride that patient is okay with [facility]. ANDRES CM in to discuss DME agencies with patient and she prefers [employer]. ANDRES ANGUIANO updated Green sheet and placed in chart.
--- NOTE | 2022-09-23 12:29 | DS.PCM_ITS ---
Providers Date of Admission: 09/20/22 Date of Discharge: 09/23/22 Primary Care Physician: Dr. Kodak Muñoz MD Consultations 09/20/22 18:17 Consult: Gastroenterology Routine Consulting Provider: Angela G[facility] Reason for Consult: Acute GI bleed, hemorrhagic shock, cirrhotic EMERGENT Consult: Yes Notified: Yes Date Notified: 09/20/22 Time Notified: 17:00 Method of Notification: ED Physician Initiated Consult: Access Rep / Pulmonary Medicine Routine Consulting Provider: Bry Gomes Reason for Consult: Hemorrhagic shock, ABLA, GI bleed, lactic acidosis EMERGENT Consult: Yes Notified: Yes Date Notified: 09/20/22 Time Notified: 17:00 Method of Notification: ED Physician Initiated Reason For Visit: GI BLEED, ABLA, HEMORRHAGIC SHOCK Diagnosis Discharge Diagnosis (1) Upper GI bleed: Status: Acute Code(s): K92.2 - Gastrointestinal hemorrhage, unspecified (2) Supratherapeutic INR: Status: Acute Code(s): R79.1 - Abnormal coagulation profile (3) Acute kidney injury superimposed on CKD: Status: Chronic Code(s): N17.9 - Acute kidney failure, unspecified; N18.9 - Chronic kidney disease, unspecified (4) History of mitral valve replacement with mechanical valve: Status: Acute Code(s): Z95.2 - Presence of prosthetic heart valve (5) Acute respiratory failure with hypoxemia: Status: Acute Code(s): J96.01 - Acute respiratory failure with hypoxia (6) COPD (chronic obstructive pulmonary disease): Status: Chronic Code(s): J44.9 - Chronic obstructive pulmonary disease, unspecified Qualifiers: COPD type: unspecified COPD Qualified Code(s): J44.9 - Chronic obstructive pulmonary disease, unspecified (7) Atrial fibrillation: Status: Acute Code(s): I48.91 - Unspecified atrial fibrillation Plan 1. 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 intake meeting less than 75% of estimated energy needs over 3 months with severe muscle wasting/fat loss evident in orbital, clavicle, acromion, and temporal areas per physical examination-[place] instant breakfast 3 times daily with meals for additional calories/protein was recommended Medications at Discharge Home Medications ferrous sulfate 325 mg (65 mg iron) tablet 325 mg PO BID SUPPLEMENT 04/02/15 folic acid 1 mg tablet 1 mg PO DAILY@0800 supplement 04/30/15 cyanocobalamin (vitamin B-12) 2,500 mcg tablet 2,500 mcg PO DAILY vitamin 06/10/16 cholecalciferol (vitamin D3) 25 mcg (1,000 unit) capsule 1,000 unit PO DAILY SUPPLEMENT 04/07/19 levothyroxine 100 mcg tablet 100 mcg PO DAILY THYROID 01/19/21 venlafaxine 37.5 mg tablet 37.5 mg PO QHS DEPRESSION 05/03/21 midodrine 10 mg tablet 10 mg PO TID #90 tabs 04/03/22 oxycodone 5 mg tablet 5 mg PO Q4H PRN Pain 09/03/22 ascorbic acid (vitamin C) 500 mg tablet 500 mg PO BID #60 tabs 09/05/22 metoprolol succinate 25 mg tablet,extended release 24 hr 12.5 mg PO BID #60 tabs 09/05/22 pantoprazole 40 mg tablet,delayed release (Protonix) 40 mg PO BID #60 tabs 09/05/22 warfarin 2 mg tablet 2 mg PO DAILY BLOOD THINNER 09/20/22 Hospital Course Operations None Procedures Blood transfusion Summary of Care Provided Minutes Spent on Discharge: 32 Hospital Course: This 81-year-old white female presented to the emergency room at [facility] by EMS for generalized weakness, GI bleeding, and lightheadedness. Patient had just been discharge from [facility] for symptomatic anemia and recently from GI bleed and supratherapeutic INR. Patient had undergone a blood transfusion during her last admission. Labs obtained in the emergency room showed a low hemoglobin of 4.8, patient's potassium was elevated at 6.1, creatinine was elevated to 2.07, lactic acid was elevated at 6.9, and EKG showed atrial fibrillation. Patient had a central line inserted in the emergency room in the right IJ with ultrasound guidance, patient's INR was elevated at 9.7, patient's blood pressure was low at 65/46, and the patient required BiPAP for time in the emergency room, patient was given IV vitamin K, placed on octreotide, given 1 unit of FFP and given IV fluids. Patient was admitted to ICU, she did not consent to undergo endoscopy but was given IV packed red blood cells, patient's INR was monitored and decreased. Patient's labs were monitored, she was kept on IV Protonix. Patient was ultimately moved to PCU when her status stabilized. Patient's warfarin was restarted due to her mechanical heart valve. On 09/23/2022, patient was seen and examined: On examination she appeared frail, she does not appear to be in any distress. Vital signs as documented. Skin warm and dry and without overt rashes. Neck without JVD, thyroid appears normal, trachea is midline, neck is supple. Lungs clear, normal air movement was noted. Heart exam notable for irregular rhythm, normal sounds and absence of murmurs, rubs or gallops. Abdomen unremarkable and without evidence of organomegaly, m asses, or abdominal aortic enlargement, bowel sounds are present in all 4 quadrants, no abdominal tenderness was noted. Extremities nonedematous, no cyanosis was noted, no clubbing was noted. Neuro: Cranial nerves II through XII are grossly intact, no focal motor deficits were noted, sensation to light touch and pinprick is intact, motor exam 5/5 throughout. Psych: Patient is alert and oriented x3, she does not appear anxious or depressed, she does not appear agitated. On 09/23/2022, patient's INR initially was 2.1, this was repeated after additional warfarin was given and it was 2.2. I had a conversation with the patient concerning going home and getting a repeat INR done within 48 hours, I told her that her INR was not where we usually target an INR for person with a mechanical heart valve, patient was okay with going home and following up on Sunday with the hospital to get a repeat INR done. Patient was given an additional 3 mg of warfarin before she was discharged home. Patient's hemoglobin appears stable at the time of discharge. According to case management, patient refused any home nursing care referral. On 09/23/2022, patient was seen and examined and felt to be in stable condition for discharge home, she required 2 L of oxygen on ambulation to maintain her pulse ox above 88%, this was set up for the patient and she is expected to use it during her daily activities within the home and outside the home. Medical Records Data Medical Nutrition Assessment Dietitian: Malnutrition Criteria Met Start: 09/21/22 11:38 Freq: Status: Active Protocol: Document 09/21/22 11:38 AG (Rec: 09/21/22 11:38 AG [id number]) Nutrition Malnutrition Evidence of Malnutrition Exists Yes Malnutrition (severe): Chronic Evidenced By Suboptimal Energy Intake ( Severe),Physical Changes ( Severe) Clinical Problem Chronic Disease or Condition Related Malnutrition Etiology chronic, severe malnutrition related to inadequate energy intake, GI dysfunction Signs/Symptoms as evidenced by estimated PO intake meeting <75% of estimated energy needs > 3 months; severe muscle wasting/ fat loss evident in orbital, clavicle, acromion, and temporal areas per physical exam Status Active Problem Recommendation Dietitian Recommendations/Changes recommend advance diet as tolerated to regular w/ 8oz chocolate [place] Instant Breakfast TID w/ meals for additional calories/protein if consumed. Weight / BMI Weight Weight: 53.4 kg Body Mass Index (BMI) 18.3 ABG / Lab / Microbiology Data Result Diagrams: 09/23/22 05:25 09/23/22 05:25 Laboratory: Laboratory Results - last 24 hr 09/22/22 15:50: WBC 9.0, RBC 3.61 L, Hgb 10.8 L, Hct 34.4 L, MCV 95.3, MCH 29.9, MCHC 31.4 L, RDW Std Deviation 61.0 H, RDW Coeff of Uriel 19.3 H, Plt Count 152, MPV 10.3, Immature Gran % (Auto) 1.000 H, Neut % (Auto) 87.0 H, Lymph % (Auto) 4.5 L, Stafford % (Auto) 7.3, Eos % (Auto) 0.0, Baso % (Auto) 0.2, Absolute Neuts (auto) 7.8 H, Absolute Lymphs (auto) 0.40 L, Nucleated RBC % 0.3, Differential Comment SCANNED 09/22/22 15:50: Sodium 142, Potassium 4.3, Chloride 112 H, Carbon Dioxide 21.0, Anion Gap 9, BUN 45 H, Creatinine 1.80 H, Estim Creat Clear Calc 20.04, Est GFR (MDRD) Af Amer 35 L, Est GFR (MDRD) Non-Af 29 L, BUN/Creatinine Ratio 25.0 H, Glucose 202 H, Calcium 7.8 L, Phosphorus 3.8, Magnesium 2.1 09/23/22 05:25: WBC 7.2, RBC 3.64 L, Hgb 10.6 L, Hct 35.1 L, MCV 96.4, MCH 29.1, MCHC 30.2 L, RDW Std Deviation 61.4 H, RDW Coeff of Uriel 19.2 H, Plt Count 141 L, MPV 10.4, Immature Gran % (Auto) 1.100 H, Neut % (Auto) 85.7 H, Lymph % (Auto) 5.8 L, Stafford % (Auto) 7.1, Eos % (Auto) 0.0, Baso % (Auto) 0.3, Absolute Neuts (auto) 6.2, Absolute Lymphs (auto) 0.42 L, Nucleated RBC % 0.3, Differential Comment SCANNED 09/23/22 05:25: Sodium 141, Potassium 4.2, Chloride 112 H, Carbon Dioxide 20.0 L , Anion Gap 9, BUN 40 H, Creatinine 1.52 H, Estim Creat Clear Calc 23.74, Est GFR (MDRD) Af Amer 42 L, Est GFR (MDRD) Non-Af 35 L, BUN/Creatinine Ratio 26.3 H , Glucose 168 H, Calcium 7.7 L 09/23/22 05:25: PT 22.9 H, INR 2.1 D/C Instructions Discharge Diet: No restrictions Weight Bearing Status: Full weight bearing Meaningful Use Info Meaningful Use Diagnoses (Choose all that apply): None applicable Discharge Plan Admission Admit Date/Time: 09/20/22 16:10 Primary Reason for Your Visit: GI bleed, coagulopathy Attending Provider: Gildardo Mcbride Primary Care Provider: Kodak Muñoz Consulting Providers: Blanquita Guzman ; Bry Gomes ; Ge Mccall Instructions Additional Instructions / Restrictions: Wear oxygen at 2 L/min via nasal cannula when ambulating Follow-up with palliative care Discharge Orders/Prescriptions Prescriptions: Continued ferrous sulfate 325 MG tablet 325 mg PO BID Label Comments: Iron supplement folic acid 1 MG tablet 1 mg PO DAILY@0800 Label Comments: Supplement cyanocobalamin (vitamin B-12) 2,500 MCG tablet 2,500 mcg PO DAILY Label Comments: Supplement cholecalciferol (vitamin D3) 1,000 UNIT capsule 1,000 unit PO DAILY venlafaxine 37.5 mg tablet 37.5 mg PO QHS levothyroxine 100 mcg tablet 100 mcg PO DAILY Label Comments: take 1 tablet by mouth once daily midodrine 10 mg tablet 10 mg PO TID Qty: 90 0RF Rx Instructions: do not give last dose of day after 6PM or within 4 hrs of bedtime oxycodone 5 mg Tablet 5 mg PO Q4H PRN (Reason: Pain) metoprolol succinate 25 mg Tablet Extended Release 24 Hr 12.5 mg PO BID Qty: 60 0RF pantoprazole [Protonix] 40 mg tablet,delayed release (DR/EC) 40 mg PO BID Qty: 60 2RF Rx Instructions: advised TWICE DAILY FOR 8 WEEKS THEN ONCE DAILY ascorbic acid (vitamin C) 500 mg tablet 500 mg PO BID Qty: 60 2RF warfarin 2 mg tablet 2 mg PO DAILY Label Comments: USE DIRECTED SEE ATTACHED PRINTOUT Discontinued magnesium 250 MG tablet 250 mg PO DAILY furosemide 40 mg tablet 40 mg PO DAILY Qty: 30 3RF Rx Instructions: Take an additional 40 mg dose at 5 PM for increased leg swelling or weight gain 5 pounds in 1 week. potassium chloride 20 mEq tablet,ER particles/crystals 20 meq PO BID Qty: 180 3RF Referrals / Follow Up: Kodak Muñoz MD [Primary Care Provider] - In 1 Week (You will need your INR rechecked) Disposition Disposition (needs filled in before D/C Order can be placed): Home, Self Care Charges/Coding Visit Charges Inpatient E&M: 14457 Disch Hosp >30min
[2022-09-23 13:16] LABS: International Normalized Ratio 2.2; Prothrombin Time (Protime)PT. 23.9 SECONDS (11.7-14.9)
--- NOTE | 2022-09-23 13:33 | RAD_ITS ---
INDICATION: small pneumothorax on previous chest x-ray EXAMINATION/TECHNIQUE: X-RAY - XR Chest 2 Views COMPARISON: September 20, 2022 FINDINGS: LINES/DEVICES: There is a right-sided central venous catheter in place terminating within the expected region of the cavoatrial junction. There is a stable cardiac pacer device in place. LUNGS: There is a stable lucency within the lateral aspect of the base of the right lung. There are stable patchy opacities within the right mid and lower lung and left lung base. MEDIASTINUM AND CARDIOVASCULAR STRUCTURES: There is stable cardiomegaly. Central airways and mediastinal contour are unremarkable. BONES AND SOFT TISSUES: Unremarkable. RAD/Chest PA and Lateral IMPRESSION: Stable lucency within the right lateral lung base suggestive of a small pneumothorax. Stable bilateral ill-defined opacities may reflect some combination of edema, pneumonia and/or atelectasis. Stable cardiomegaly. Electronically Signed: Annalise Cedeno MD at 13:50 EST ,
--- NOTE | 2022-09-23 16:32 | NURSING ---
rt ij removed tip intact
== END 2022-09-23 16:49 | disposition home or self-care (01) | DRG 377 ==
LOC: ED 14:57 → ICU 16:57 → PCU 09-22 11:34
PROVIDERS: Internal Medicine; Admitting Provider Family Medicine; Emergency Provider Emergency Medicine; PCP Internal Medicine; Visit Provider Internal Medicine
DX: K92.2 Gastrointestinal hemorrhage, unspecified (principal); J96.01 Acute respiratory failure with hypoxia; R57.8 Other shock; E43 Unspecified severe protein-calorie malnutrition; J96.21 Acute and chronic respiratory failure with hypoxia; D61.818 Other pancytopenia; E87.29 Other acidosis; N17.9 Acute kidney failure, unspecified; N18.4 Chronic kidney disease, stage 4 (severe); D62 Acute posthemorrhagic anemia; R18.8 Other ascites; Z68.1 Body mass index [BMI] 19.9 or less, adult; D63.1 Anemia in chronic kidney disease; J44.9 Chronic obstructive pulmonary disease, unspecified; I48.0 Paroxysmal atrial fibrillation; E11.22 Type 2 diabetes mellitus with diabetic chronic kidney disease; K74.60 Unspecified cirrhosis of liver; K21.9 Gastro-esophageal reflux disease without esophagitis; E78.5 Hyperlipidemia, unspecified; E87.5 Hyperkalemia; E03.9 Hypothyroidism, unspecified; K31.7 Polyp of stomach and duodenum; F17.210 Nicotine dependence, cigarettes, uncomplicated; F41.8 Other specified anxiety disorders; I12.9 Hypertensive chronic kidney disease with stage 1 through stage 4 chronic kidney disease, or unspecified chronic kidney disease; R79.1 Abnormal coagulation profile; Z51.5 Encounter for palliative care; Z95.0 Presence of cardiac pacemaker; Z79.01 Long term (current) use of 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; Z66 Do not resuscitate; Z95.2 Presence of prosthetic heart valve
CPT/HCPCS: 36415; 36556; 36600; 71045; 71046; 80048; 80053; 81001; 82803; 83605; 83735; 84100; 84132; 84484; 85014; 85018; 85025; 85610; 86850; 86900; 86901; 86920; 86922; 93005; 94002; 94003; 94640; 94668; 97110; 97162; 97166; 97535; 97802; 99252; 99285; 99406; J7030; J7050; P9016; A4216; G0463; J0610; J2354; J3490

== ENCOUNTER 2022-09-28 08:51 | Outpatient (RCR) | payer SELFPAY ==
[2022-09-13 07:45] VITALS: BMI 20.8
[2022-09-25 08:54] LABS: International Normalized Ratio 3.5; Prothrombin Time (Protime)PT. 34.6 SECONDS (11.7-14.9)
[2022-09-28 10:21] LABS: Prothrombin Time (Protime)PT. 30.5 SECONDS (11.7-14.9)
== END 2022-09-28 18:00 | disposition home or self-care (01) ==
LOC: LAB 08:51
PROVIDERS: Family Provider Internal Medicine; PCP Internal Medicine; Referring Provider Internal Medicine Cardiovascular Disease; Visit Provider Internal Medicine Cardiovascular Disease
DX: I48.11 Longstanding persistent atrial fibrillation (principal); Z95.2 Presence of prosthetic heart valve; Z79.01 Long term (current) use of 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
CPT/HCPCS: 36415; 85610

== ENCOUNTER 2022-11-09 08:26 | Outpatient (RCR) | payer SELFPAY ==
[2022-10-10 19:46] VITALS: BMI 20.8
[2022-10-12 09:05] LABS: International Normalized Ratio 2.8; Prothrombin Time (Protime)PT. 29.5 SECONDS (11.7-14.9)
[2022-10-26 09:50] LABS: International Normalized Ratio 3.6; Prothrombin Time (Protime)PT. 35.9 SECONDS (11.7-14.9)
[2022-11-09 09:14] LABS: Prothrombin Time (Protime)PT. 70.7 SECONDS (11.7-14.9)
[2022-11-09 09:17] LABS: International Normalized Ratio 8.5
== END 2022-11-10 21:21 | disposition home or self-care (01) ==
LOC: LAB 08:26
PROVIDERS: Family Provider Internal Medicine; PCP Internal Medicine; Referring Provider Internal Medicine Cardiovascular Disease; Visit Provider Internal Medicine Cardiovascular Disease
DX: I48.11 Longstanding persistent atrial fibrillation (principal); Z95.2 Presence of prosthetic heart valve; Z79.01 Long term (current) use of 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
CPT/HCPCS: 36415; 85610

== ENCOUNTER → 2022-11-13 | Outpatient (CLI) | payer SELFPAY ==
[2022-11-13 11:15] LABS: International Normalized Ratio 14.2; Prothrombin Time (Protime)PT. 105.7 SECONDS (11.7-14.9)
== END | disposition home or self-care (01) ==
PROVIDERS: PCP Internal Medicine; Referring Provider Internal Medicine Cardiovascular Disease; Visit Provider Internal Medicine Cardiovascular Disease
DX: I48.91 Unspecified atrial fibrillation (principal); Z79.01 Long term (current) use of 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
CPT/HCPCS: 36415; 85610

== ENCOUNTER → 2022-11-16 | Outpatient (CLI) | payer MEDICARE, SELFPAY ==
[2022-11-16 11:59] LABS: Prothrombin Time (Protime)PT. 75.9 SECONDS (11.7-14.9)
[2022-11-16 12:03] LABS: International Normalized Ratio 9.3
[2022-11-16 12:13] LABS: ALB/GLOB Ratio 0.6 RATIO (0.9-2.4); AST(SGOT) 11 U/L (15-37); Alanine Aminotransfer ALT/SGPT 7 U/L (13-56); Albumin, Serum 2.1 g/dL (3.2-5.0); Alkaline Phosphatase 93 U/L (45-117); Anion Gap 10 (5-15); BUN 26 mg/dL (7-18); BUN/Creat Ratio 15.9 RATIO (10-20); Calcium,Total 8.5 mg/dL (8.5-10.1); Chloride 118 mmol/L (98-107); Creatinine, Serum 1.64 mg/dL (0.55-1.02); EST Glomerular Filtration Rate 32 mL/min (>60); Est Glom Filt Rate - Afr Amer 39 mL/min (>60); Globulin 3.8 g/dL (2.2-4.2); Glucose 112 mg/dL (74-106); Potassium 4.9 mmol/L (3.5-5.1); Protein, Total 5.9 g/dL (6.4-8.2); Sodium Level 141 mmol/L (136-145)
== END | disposition home or self-care (01) ==
LOC: LAB 07:37
PROVIDERS: Physician Assistant Medical; PCP Internal Medicine; Referring Provider Internal Medicine Cardiovascular Disease; Visit Provider Internal Medicine Cardiovascular Disease
DX: I48.91 Unspecified atrial fibrillation (principal); I50.32 Chronic diastolic (congestive) heart failure; I49.5 Sick sinus syndrome; Z79.01 Long term (current) use of 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; I36.1 Nonrheumatic tricuspid (valve) insufficiency
CPT/HCPCS: 36415; 80053; 83880; 85610

== ENCOUNTER 2022-11-17 12:18 | Inpatient (IN) | payer MEDICARE, SELFPAY ==
[2022-11-17] VITALS (19 sets, daily range): BP systolic 62–102; BP diastolic 34–71; PULSE 65–123; RESP 16–26; TEMP 35.7–36.9; O2SAT 90–97; BMI 20.9; BMI 20.5
[2022-11-17 13:18] LABS: Absolute Lymphocyte Count 0.49 X10^3/uL (0.83-4.51); Absolute Neutrophil Count 4.2 X10^3/uL (2.0-7.7); Basophil# 0.01 X10^3/uL; Basophil% 0.2 % (0-1); Hematocrit 21.6 % (37-47); Hemoglobin 6.4 g/dL (12.0-15.0); Lymphocyte # 0.49 X10^3/ul (0.83-4.51); Lymphocyte % 9.4 % (19-41); Mean Corp Hgb Conc 29.6 g/dL (32-36); Mean Corpuscular Hgb 30.9 pg (27.0-32.0); Mean Corpuscular Volume 104.3 fL (81-99); Mean Platelet Vol. 11.2 fl (6.2-12.0); Monocyte# 0.45 X10^3/uL; Monocyte% 8.6 % (0-10); NRBC Flagged by Analyzer 0.6 % (0-5); Neutrophil # 4.24 X10^3/uL (2.7-7.7); Neutrophil % 80.8 % (47-70); POSITIVE DIFFERENTIAL YES; POSITIVE MORPHOLOGY YES; Platelet Count 178 K/mm3 (150-450); RBC Distribution Width CV 21.4 % (11.6-14.6); RBC Distribution Width SD 76.8 fl (35.1-43.9); Red Blood Count 2.07 M/mm3 (4.2-5.4); White Blood Count 5.2 K/mm3 (4.4-11.0)
[2022-11-17 13:26] LABS: Differential Indicated SCAN CRITERIA MET
[2022-11-17 13:37] LABS: ALB/GLOB Ratio 0.6 RATIO (0.9-2.4); AST(SGOT) 19 U/L (15-37); Alanine Aminotransfer ALT/SGPT 8 U/L (13-56); Albumin, Serum 2.3 g/dL (3.2-5.0); Alkaline Phosphatase 99 U/L (45-117); Anion Gap 7 (5-15); BUN 25 mg/dL (7-18); BUN/Creat Ratio 15.9 RATIO (10-20); Calcium,Total 8.9 mg/dL (8.5-10.1); Chloride 115 mmol/L (98-107); Creatinine, Serum 1.57 mg/dL (0.55-1.02); EST Glomerular Filtration Rate 34 mL/min (>60); Est Glom Filt Rate - Afr Amer 41 mL/min (>60); Globulin 3.7 g/dL (2.2-4.2); Glucose 120 mg/dL (74-106); Sodium Level 139 mmol/L (136-145)
[2022-11-17] MEDS: Octreotide 0.1 MG/ML ML IV (13:43)
[2022-11-17 14:09] LABS: Anisocytosis 2+; Differential Comment SCANNED; Hypochromasia 1+; Polychromasia 1+
[2022-11-17 14:11] LABS: Ovalocyte RARE
[2022-11-17 14:27] LABS: BNP,B-Type NATRIURETIC PEPTIDE 405.4 pg/mL (0-100)
--- NOTE | 2022-11-17 14:33 | HP.PCM_ITS ---
HPI - General General Date of Admission: 11/17/22 Date of Service: 11/17/22 Chief Complaint: Abnormal Hgb, weakness, dypsnea. HPI Narrative The patient is an 82 y/o F w/ PMHx: Chronic thrombocytopenia, Tobacco use, COPD, Cirrhotic liver disease, Depression and Anxiety, Hx GI bleed, CKD stage III unclear subtype, PAF, Hx Tachy-Alberto syndrome s/p pacemaker status, Chronic anemia/Fe deficiency anemia, Valvular heart disease s/p MVR mechanical, Chronic Diastolic CHF who presents to the [facility] ED on 11/17/22 with history of increased fatigue and malaise with dyspnea, worse with exertion with outpatient hemoglobin check reported to be 6.0 with recent supratherapeutic INR prompting transition to the ED for PRBC administration and further evaluation for concern of recurrent GI bleed especially given INR recently up to 14.2 with outpatient rev ersal with oral vitamin K per review of medication administration previous. Patient denies any recurrent bright blood per rectum which had previously but does states she has been having dark stools but has had this also previously and unsure if it is chronic. Work-up in the ED included T96.5, heart rate 112, BP initially 80/54, respiratory rate 18, 90% on room air with most recent vital signs T97, heart rate 104, BP 76/51-->81/47, respiratory rate 25, 95% on room air, CBC with WBC 5.2, hemoglobin 6.4, MCV 104.3 although from review of records patient is primarily normocytic, platelet 178 with increased immature granulocytes and lymphopenia, CMP with chloride 115, carbon oxide 17, BUN/creat 25/1.57, glucose 120, hepatic profile not marked appearing, BNP 405.4, T+C 2 u PRBC per ED physician. In the ED patient also had bedside ultrasound per ED physician which was notable for marked ascites. ED discussed case with Dr. Brownlee with planned evaluation. In the ED patient ministered normal saline, albumin 25 g IV x1, Rocephin 1 g IV x1, midodrine 10 mg p.o. x1, octreotide 0.1 mg IV x1 as well as Protonix 80 mg IV bolus x1. [facility] Medical History Abdominal distension Acute GI bleeding Acute kidney injury superimposed on CKD Acute respiratory failure with hypoxemia Adenomatous colon polyp Anemia Anemia in chronic kidney disease Anemia requiring transfusions Anxiety Atrial fibrillation Bilateral leg edema Black stool Cardiac pacemaker in situ Carotid bruit Cholelithiasis Chronic gastrointestinal bleeding Chronic heart failure with preserved ejection fraction (HFpEF) Cirrhosis Cirrhosis of liver with ascites CKD (chronic kidney disease) COPD (chronic obstructive pulmonary disease) Depression Depression Diverticulosis GERD (gastroesophageal reflux disease) GI bleed GI bleeding HLD (hyperlipidemia) Hypokalemia Hypotension Hypotension Iron deficiency Irregular heart beat Kidney disease nursing home current use of anticoagulant Longstanding persistent atrial fibrillation Neutropenia Nicotine dependence Non-rheumatic aortic stenosis Non-rheumatic tricuspid valve insufficiency Nonrheumatic mitral (valve) insufficiency Pancytopenia Pericardial effusion Pleural effusion PVC's (premature ventricular contractions) Secondary pulmonary hypertension Severe protein-calorie malnutrition Smoker Supratherapeutic INR Supratherapeutic INR Tachycardia-bradycardia syndrome Thrombocytopenia Thrombocytopenia Type 2 diabetes mellitus Typical atrial flutter Home Medications ferrous sulfate 325 mg (65 mg iron) tablet 325 mg PO BID SUPPLEMENT 04/02/15 [History Last Taken 11/16/22] folic acid 1 mg tablet 1 mg PO DAILY@0800 supplement 04/30/15 [History Last Taken 11/16/22] cyanocobalamin (vitamin B-12) 2,500 mcg tablet 2,500 mcg PO DAILY vitamin 06/10/16 [History Last Taken 11/16/22] cholecalciferol (vitamin D3) 25 mcg (1,000 unit) capsule 1,000 unit PO DAILY SUPPLEMENT 04/07/19 [History Last Taken 11/16/22] levothyroxine 100 mcg tablet 100 mcg PO DAILY THYROID 01/19/21 [History Last Taken 11/16/22] venlafaxine 37.5 mg tablet 37.5 mg PO QHS DEPRESSION 05/03/21 [History Last Taken 11/16/22] ascorbic acid (vitamin C) 500 mg tablet 500 mg PO BID #60 tabs 09/05/22 [Rx Last Taken 11/16/22] pantoprazole 40 mg tablet,delayed release (Protonix) 40 mg PO BID #60 tabs 09/05/22 [Rx Last Taken 11/16/22] warfarin 2 mg tablet 2 mg PO DAILY BLOOD THINNER 09/20/22 [History Last Taken 1 Week Ago ~11/10/22] furosemide 40 mg tablet 40 mg PO .COMPLEX #180 tabs 09/27/22 [Rx Last Taken 11/16/22] midodrine 10 mg tablet 10 mg PO TID #90 tabs 09/27/22 [Rx Last Taken Unknown] potassium chloride 20 mEq tablet,extended release(part/cryst) 20 meq PO DAILY SUPPLEMENT 11/17/22 [History Last Taken 11/16/22] Allergy/AdvReac Type Severity Reaction Status Date / Time amiodarone AdvReac vomiting, Verified 11/17/22 12:24 poor balance, dizziness digoxin AdvReac nausea, Verified 11/17/22 12:24 dry heaves lorazepam [From Ativan] AdvReac Unknown Verified 11/17/22 12:24 meloxicam [From Mobic] AdvReac Unknown Verified 11/17/22 12:24 nortriptyline HCl AdvReac Unknown Verified 11/17/22 12:24 [From Pamelor] zolpidem tartrate AdvReac Unknown Verified 11/17/22 12:24 [From Ambien] Family History Mother Cancer lung and renal Father Heart disease Surgical History History of cardioversion (10/2015) History of incision of pericardium History of left heart catheterization (07/17/08) History of mitral valve replacement with mechanical valve (07/22/08) History of tubal ligation Presence of permanent cardiac pacemaker (08/30/18) Social History Smoking Status: Current every day smoker tobacco type: cigarettes Tobacco: How many years used: 60 alcohol intake: never substance use type: does not use caffeine: Yes Type: carbonated beverages what type of physical activity do you participate in: none seatbelt use: always do you feel safe at home: Yes ROS ROS Narrative Admission Review of Systems: CONSTITUTIONAL: No weight loss, fever, chills, + weakness or fatigue. HEENT: Eyes: No visual loss, blurred vision, double vision or yellow sclerae. Ears, Nose, Throat: No hearing loss, sneezing, congestion, runny nose or sore throat. SKIN: No rash or itching, lesions, wounds. CARDIOVASCULAR: + lightheadedness and dizziness.? No chest pain, chest pressure or chest discomfort, palpitations, edema, orthopnea, syncopal events. RESPIRATORY: + shortness of breath worse with exertion attempts, No cough or sputum, wheezing, hemoptysis. GASTROINTESTINAL: + anorexia, nausea without emesis, dark appearing stools. Patient denies abdominal pain or recurrent BRB but not best historian, does report that her stools are dark appearing however. GENITOURINARY: No dysuria, frequency, urgency or retention. NEUROLOGICAL: + lightheadedness and dizziness.? No headache, dizziness, syncope, paralysis, ataxia, numbness or tingling in the extremities, focal weakness, change in bowel or bladder control, seizure. MUSCULOSKELETAL: + muscle, back pain, joint pain or stiffness. HEMATOLOGIC: + anemia, bleeding or bruising. LYMPHATICS: No enlarged nodes. No history of splenectomy. PSYCHIATRIC: + history of depression or anxiety. ENDOCRINOLOGIC: + reports of sweating, cold or heat intolerance. No polyuria or polydipsia. ALLERGIES: No history of asthma, hives, eczema or rhinitis. Vital Signs Vital Signs Vital Signs: 11/17/22 12:19 11/17/22 13:24 11/17/22 14:10 Temperature 96.5 F L 97.0 F L Temperature Source Temporal Temporal Pulse Rate 112 H 104 H 105 H Respiratory Rate 18 25 H 16 Blood Pressure 80/54 L 76/51 L 81/47 L Blood Pressure Mean 62 59 58 Pulse Ox 90 95 92 Oxygen Delivery Method Room Air Room Air Nasal Cannula Oxygen Flow Rate (L/min) 2 Weight Weight: 114 lb 10.246 oz Body Mass Index (BMI) 20.9 Physical Exam Narrative Physical Examination: General: Awake, alert, oriented to self, place and recent events, remains cooperative, seated in the ED bed, fatigued appearance. Skin: Pale color, normal turgor, no icterus, no cyanosis, except bilateral lower extremity stasis skin change. HEENT: AT/NC, EOMI, PERRLA, dry MM, no carotid bruits or JVD noted. Lungs: Diminished, greater bases, mildly increased respiratory rate but no distress, occasional end expiratory wheeze, no rales or rhonchi. Heart: Tachycardic, regular; no gallop, rub audible. Abdomen: Soft, cachectic appearing habitus, abdomen with obvious ascites but nontender, distended but not tense, distant bowel sounds, difficulty assessing HSM given ascitic fluid but does have history of HM. Extremities: No cyanosis, no clubbing, mild peripheral edema, stasis skin changes. Neurological: Patient awake, alert, oriented as noted, cognitive function intact; pupils equally reactive to light and accommodation, cranial nerves II- XII grossly normal, moving all 4 extremities, no focal deficits, strength moderately to severely global decrease secondary to acute presentation Psychiatric: Affect appears flat, fatigued, no acute evidence of depressive or anxiety feelings but does have underlying history. Results Lab / Micro Data Result Diagrams: 11/17/22 12:45 11/17/22 12:45 Labs: Laboratory Results - last 24 hr 11/17/22 12:45: WBC 5.2, RBC 2.07 L, Hgb 6.4 L, Hct 21.6 L, MCV 104.3 H, MCH 30.9, MCHC 29.6 L, RDW Std Deviation 76.8 H, RDW Coeff of Uriel 21.4 H, Plt Count 178, MPV 11.2, Immature Gran % (Auto) 1.000 H, Neut % (Auto) 80.8 H, Lymph % (Auto) 9.4 L, Pickett % (Auto) 8.6, Eos % (Auto) 0.0, Baso % (Auto) 0.2, Absolute Neuts (auto) 4.2, Absolute Lymphs (auto) 0.49 L, Nucleated RBC % 0.6, Differential Comment SCANNED, Polychromasia 1+, Hypochromasia 1+, Anisocytosis 2+, Ovalocytes RARE 11/17/22 12:45: Sodium 139, Potassium 5.0, Chloride 115 H, Carbon Dioxide 17.0 L , Anion Gap 7, BUN 25 H, Creatinine 1.57 H, Estim Creat Clear Calc 22.60, Est GFR (MDRD) Af Amer 41 L, Est GFR (MDRD) Non-Af 34 L, BUN/Creatinine Ratio 15.9, Glucose 120 H, Calcium 8.9, Total Bilirubin 0.50, AST 19, ALT 8 L, Alkaline Phosphatase 99, Total Protein 6.0 L, Albumin 2.3 L, Globulin 3.7, Albumin/Globulin Ratio 0.6 L 11/17/22 13:57: B-Natriuretic Peptide 405.4 H 11/17/22 13:57: Crossmatch See Detail Micro: Microbiology 11/17/22 13:20 Stool Stool Occult Blood (TAMEKA) - Final Occult Blood Positive Assessment & Plan Assessment/Plan (1) Acute GI bleeding: PLAN: Plan The patient is an 82 y/o F w/ PMHx: Chronic thrombocytopenia, Tobacco use, COPD, Cirrhotic liver disease, Depression and Anxiety, Hx GI bleed, CKD stage III un clear subtype, PAF, Hx Tachy-Alberto syndrome s/p pacemaker status, Chronic anemia/Fe deficiency anemia, Valvular heart disease s/p MVR mechanical, Chronic Diastolic CHF who presents to the [facility] ED on 11/17/22 with history of increased fatigue and malaise with dyspnea, worse with exertion with outpatient hemoglobin check reported to be 6.0 with recent supratherapeutic INR prompting transition to the ED for PRBC administration and further evaluation for concern of recurrent GI bleed especially given INR recently up to 14.2 with outpatient reversal with oral vitamin K per review of medication administration previous. #1. Acute GI Bleed w/ resultant Acute Blood Loss Anemia on Chronic in the setti ng of Cirrhotic liver disease w/ prior GI bleed Hx w/ associated Hemorrhagic Shock #3 likely precipitated by #2: Pre-ED Hgb 6.2, repeat ED admission Hgb 6.4, will admit to ICU given hypotension, maintain on IVFs, pre-ED INR 2.7 but had been on 11/16/2022 9.3 and prior to this on 11/13/2022 INR 14.2, admission INR pending upon requested evaluation of patient, given mechanical mitral valve unable to safely reverse, will trend INR and initiate heparin drip once appropriate, will continue cycle H&H's, continue T and C initiated per ED, will maintain on IV PPI and given cirrhotic history will place on IV Rocephin, GI consulted, pending. #2. Recent supratherapeutic INR, corrected: From review of prior records patient with recent significantly elevated INR noted 11/13/22 14.2 and most recently 11/16/22 9.3 with record of oral vitamin K administration, admission INR pending upon requested evaluation of patient, given mitral valve suspect goal is 2.5-3.5, at this point given acute GI bleed pending GI evaluation we will transition to heparin drip to be cautious as this may be quickly discontinued or held. #3. Acute on Chronic Hypotension, Hemorrhagic shock with Acute GI bleed as noted #1 in the recent setting #2: Admission initial BP in the ED 80/54, baseline from review of records primarily systolic in the 90-110 range, holding patient home metoprolol regimen as well as Lasix, continue judicious fluids cautiously given CHF history and telemetry PRBC administration available. #4. Valvular heart disease: Patient status post mechanical mitral valve replacement, would expect goal INR 2.5-3.5, as noted INR pre-ED 2.7, admission INR pending, as noted plan to transition to heparin drip to be cautious given presentation as this may be quickly discontinued or held. Most recent echocardiogram noted 04/02/2022 with stable appearing mechanical mitral valve apparatus with trivial transvalvular insufficiency of the mitral valve, LV systolic function normal, EF 60%, moderately dilated RV, moderate global RV systolic dysfunction, mildly enlarged LA and RA, moderately severe TVI, moderate focal AV calcification, mild to moderate valve insufficiency, RVSP 107 mmHg with severe pulmonary hypertension with leads in place. #5. Chronic Diastolic CHF: Most recent ECHO as noted above 04/02/22, holding patient Coumadin as noted with plan transition to heparin drip once appropriate given concurrent mitral valve apparatus, holding metoprolol as well as Lasix regimen given acute on chronic hypotension secondary to acute on chronic GI bleed, not on statin therapy, defer. #6. Chronic Kidney Disease Stage III, unclear subtype: Admission BUN/Cr 25/1.57 baseline renal function primarily 1.5-2.0, most recently 11/16/2022 creatinine 1.64, repeat BMP in AM. #7. Chronic thrombocytopenia: Pre ED Plt 157, admission Plts 178, baseline Plts noted prior more recently ranged 140-170, prior had been 80-120s, will continue to trend. #8. PAF: Patient with chronic hypotension although primarily systolic usually 90-110, currently lower than normal likely secondary to worsened anemia, will temporally hold patient metoprolol but add back once appropriate, as noted given mechanical mitral valve patient is on Coumadin, recent supratherapeutic INR now normalized, transition to heparin drip to be cautious as this may be held quickly. #9. History tachybradycardia syndrome: Status post pacemaker status. #10. Anxiety and depression: We will continue patient home venlafaxine regimen. #11. Hypothyroidism: We will continue patient home levothyroxine regimen. #12. Hyperlipidemia: Not on statin therapy, defer. #13. Chronic COPD: Patient is not on any chronic inhalers, will have as needed albuterol, encourage head of bed and I-S #14. Tobacco Abuse: Encouraged cessation, inpatient consultation per RT, NR if desired. #15. GERD: We will maintain on IV PPI. #16. DVT prophylaxis: INR requested, patient on coumadin with mechanical MVR, will transition to heparin drip once INR appropriate given acute bleed presentation. #17. CODE status: Patient EDWARD is her son who is present, living will is not in place. Discussed CODE status at length including difference between FULL code, DNR-CCA and DNR-CC status. Following discussions about the differences in these status, requested DNR CCA, no intubation. We also discussed the fact that her blood pressures are low and discussed the process of placing a central line and pressor therapy usage. Following these discussions she specifically declined to have any central line placed but would be willing to use pressors up to the point of needing a central line. Advanced Care Planning Face to Face Time: 17 minutes. Admission Evaluation Time spent evaluating chart, patient history, patient evaluation, care planning and discussion with specialists: 17 minutes. Charges/Coding Visit Charges Inpatient E&M: 79866 Init Hosp L3 Procedures Hospitalists Procedures: 99978 Advncd Care Plan 30 Min
[2022-11-17 14:38] LABS: Lactic Acid 1.4 mmol/L (0.4-1.9)
[2022-11-17] MEDS: Ceftriaxone 1 GM/50 ML BAG IV (14:42)
--- NOTE | 2022-11-17 15:53 | EDS_ITS ---
HPI History of Present Illness Chief Complaint: Abn Labs Informant: patient Narrative Narrative: Patient is an 82-year-old female with complex medical history including atrial fibrillation, cirrhosis of the liver, angiodysplasia with frequent GI bleeds and mechanical valve nonsedating chronic Coumadin therapy presenting with anemia. Patient states she has had black stools but is not sure if that is new or not. Family is not at the bedside at this time. Patient had outpatient labs 2 days ago and again today. Her hemoglobin today was 6.2 and she was sent to the emergency room. Patient's INR was 14.2 on the third, 9.3 yesterday and 2.7 this morning. Her BUN was 26 and a creatinine 1.64 yesterday. Patient currently has no complaints. [facility] Medical History Abdominal distension Acute GI bleeding Acute kidney injury superimposed on CKD Acute respiratory failure with hypoxemia Adenomatous colon polyp Anemia Anemia in chronic kidney disease Anemia requiring transfusions Anxiety Atrial fibrillation Bilateral leg edema Black stool Cardiac pacemaker in situ Carotid bruit Cholelithiasis Chronic gastrointestinal bleeding Chronic heart failure with preserved ejection fraction (HFpEF) Cirrhosis Cirrhosis of liver with ascites CKD (chronic kidney disease) COPD (chronic obstructive pulmonary disease) Depression Depression Diverticulosis GERD (gastroesophageal reflux disease) GI bleed GI bleeding HLD (hyperlipidemia) Hypokalemia Hypotension Hypotension Iron deficiency Irregular heart beat 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 Longstanding persistent atrial fibrillation Neutropenia Nicotine dependence Non-rheumatic aortic stenosis Non-rheumatic tricuspid valve insufficiency Nonrheumatic mitral (valve) insufficiency Pancytopenia Pericardial effusion Pleural effusion PVC's (premature ventricular contractions) Secondary pulmonary hypertension Severe protein-calorie malnutrition Smoker Supratherapeutic INR Supratherapeutic INR Tachycardia-bradycardia syndrome Thrombocytopenia Thrombocytopenia Type 2 diabetes mellitus Typical atrial flutter Home Medications ferrous sulfate 325 mg (65 mg iron) tablet 325 mg PO BID SUPPLEMENT 04/02/15 [History Last Taken 11/16/22] folic acid 1 mg tablet 1 mg PO DAILY@0800 supplement 04/30/15 [History Last Ta keerthi 11/16/22] cyanocobalamin (vitamin B-12) 2,500 mcg tablet 2,500 mcg PO DAILY vitamin 06/10/16 [History Last Taken 11/16/22] cholecalciferol (vitamin D3) 25 mcg (1,000 unit) capsule 1,000 unit PO DAILY SUPPLEMENT 04/07/19 [History Last Taken 11/16/22] levothyroxine 100 mcg tablet 100 mcg PO DAILY THYROID 01/19/21 [History Last Taken 11/16/22] venlafaxine 37.5 mg tablet 37.5 mg PO QHS DEPRESSION 05/03/21 [History Last Taken 11/16/22] ascorbic acid (vitamin C) 500 mg tablet 500 mg PO BID #60 tabs 09/05/22 [Rx Last Taken 11/16/22] pantoprazole 40 mg tablet,delayed release (Protonix) 40 mg PO BID #60 tabs 09/05/22 [Rx Last Taken 11/16/22] warfarin 2 mg tablet 2 mg PO DAILY BLOOD THINNER 09/20/22 [History Last Taken 1 Week Ago ~11/10/22] furosemide 40 mg tablet 40 mg PO .COMPLEX #180 tabs 09/27/22 [Rx Last Taken 11/16/22] midodrine 10 mg tablet 10 mg PO TID #90 tabs 09/27/22 [Rx Last Taken Unknown] potassium chloride 20 mEq tablet,extended release(part/cryst) 20 meq PO DAILY SUPPLEMENT 11/17/22 [History Last Taken 11/16/22] Allergy/AdvReac Type Severity Reaction Status Date / Time amiodarone AdvReac vomiting, Verified 11/17/22 12:24 poor balance, dizziness digoxin AdvReac nausea, Verified 11/17/22 12:24 dry heaves lorazepam [From Ativan] AdvReac Unknown Verified 11/17/22 12:24 meloxicam [From Mobic] AdvReac Unknown Verified 11/17/22 12:24 nortriptyline HCl AdvReac Unknown Verified 11/17/22 12:24 [From Pamelor] zolpidem tartrate AdvReac Unknown Verified 11/17/22 12:24 [From Ambien] Family History Mother Cancer lung and renal Father Heart disease Surgical History History of cardioversion (10/2015) History of incision of pericardium History of left heart catheterization (07/17/08) History of mitral valve replacement with mechanical valve (07/22/08) History of tubal ligation Presence of permanent cardiac pacemaker (08/30/18) Social History Smoking Status: Current every day smoker tobacco type: cigarettes Tobacco: How many years used: 60 alcohol intake: never substance use type: does not use caffeine: Yes Type: carbonated beverages what type of physical activity do you participate in: none seatbelt use: always do you feel safe at home: Yes ROS ROS ED Constitutional Constitutional ED: Denies chills or fever(s) Eyes Eyes: Denies change in vision ENT ENT ED: Denies sore throat Cardiovascular Cardiovascular: Denies chest pain Respiratory/Chest Respiratory/Chest: Denies cough Gastrointestinal Gastrointestinal: Reports melena; Denies abdominal pain, nausea or vomiting Musculoskeletal Musculoskeletal: Denies arthralgias or myalgias Integumentary Denies rash Neurologic Neurologic: Denies headache(s) or weakness Hematologic/Lymphatic Hematologic/Lymphatic: Reports easy bleeding and easy bruising EXAM Physical Exam Const Vital Signs: 11/17/22 12:19 11/17/22 13:24 11/17/22 14:10 Temperature 96.5 F L 97.0 F L Temperature Source Temporal Temporal Pulse Rate 112 H 104 H 105 H Respiratory Rate 18 25 H 16 Blood Pressure 80/54 L 76/51 L 81/47 L Blood Pressure Mean 62 59 58 Pulse Ox 90 95 92 Oxygen Delivery Method Room Air Room Air Nasal Cannula Oxygen Flow Rate (L/min) 2 11/17/22 15:00 Temperature Temperature Source Pulse Rate 100 Respiratory Rate 16 Blood Pressure 81/50 L Blood Pressure Mean 60 Pulse Ox Oxygen Delivery Method Oxygen Flow Rate (L/min) Constitutional Narrative: Frail, pale General Appearance ED: NAD and pallor HEENT Reports dry mucous membranes Mouth ED: Yes dry mucous membranes Mouth: dry mucous membranes Eyes PERRL and EOMs intact bilaterally General Eye ED: Yes pale conjunctiva Neck supple and no JVD Chest Wall inspection of chest normal and palpation of chest normal Resp normal respiratory effort Resp Narrative: Crackles at the bases Cardio Rhythm: abnormal rhythm irregularly irregular Heart Sounds: murmur GI GI Narrative: Abdomen distended with positive fluid wave. Bedside ultrasound performed by myself which shows of free fluid consistent with ascites. Positive melena on rectal exam Palpation: Negative for tender or guarding Extremity normal to inspection General Extremety ED: Negative for edema General Extremity: Negative for edema Neuro Sensorium / Orientation: alert; Negative for lethargic Motor Exam: general weakness Skin no rashes or lesions noted General Skin Exam: pallor MDM MDM MDM Narrative Medical decision making narrative: Patient is evaluated for acute on chronic anemia. Patient was hospitalized for hypotension and GI bleed with subsequent respiratory failure requiring BiPAP 2 months ago. I was her treating ER physician at that time and she does look better today compared to her last visit however she still looks quite frail and ill. Her hemoglobin is 6.4 which is slightly improved from earlier today of 6.2. Regardless is stable and I do not think she has a brisk bleed. Creatinine is 1.57 which is close to the patient's baseline. Bicarb is low at 17 I suspect she is also dehydrated. Blood pressure is low in the ER. Patient is given IV fluids. She is given fluid resuscitation and packed red blood cells are ordered. She started on IV Protonix, octreotide and Rocephin given her history of liver cirrhosis and GI bleed in the setting of melena. Case is discussed with GI on-call, Dr. Brownlee, who is available to see her this weekend. No further intervention recommended at this time. In addition patient's supratherapeutic INR had corrected this morning was 1.9. I do not think she requires further vitamin K or any other type of reversal. Her lactate is normal. She will be admitted to the ICU for close blood pressure monitoring, transfusion and fluid resuscitation. History & Record Review Additional record(s) reviewed:: Prior inpatient record and Prior labs Lab Data Attestation: I reviewed the patient's lab results. Labs: Laboratory Results - last 24 hr 11/17/22 11/17/22 11/17/22 12:45 12:45 13:57 WBC 5.2 RBC 2.07 L Hgb 6.4 L Hct 21.6 L MCV 104.3 H MCH 30.9 MCHC 29.6 L RDW Std Deviation 76.8 H RDW Coeff of Uriel 21.4 H Plt Count 178 MPV 11.2 Immature Gran % (Auto) 1.000 H Neut % (Auto) 80.8 H Lymph % (Auto) 9.4 L [place] % (Auto) 8.6 Eos % (Auto) 0.0 Baso % (Auto) 0.2 Absolute Neuts (auto) 4.2 Absolute Lymphs (auto) 0.49 L Nucleated RBC % 0.6 Differential Comment SCANNED Polychromasia 1+ Hypochromasia 1+ Anisocytosis 2+ Ovalocytes RARE Sodium 139 Potassium 5.0 Chloride 115 H Carbon Dioxide 17.0 L Anion Gap 7 BUN 25 H Creatinine 1.57 H Estim Creat Clear Calc 22.60 Est GFR (MDRD) Af Amer 41 L Est GFR (MDRD) Non-Af 34 L BUN/Creatinine Ratio 15.9 Glucose 120 H Lactic Acid 1.4 Calcium 8.9 Total Bilirubin 0.50 AST 19 ALT 8 L Alkaline Phosphatase 99 B-Natriuretic Peptide Total Protein 6.0 L Albumin 2.3 L Globulin 3.7 Albumin/Globulin Ratio 0.6 L Crossmatch 11/17/22 11/17/22 13:57 13:57 WBC RBC Hgb Hct MCV MCH MCHC RDW Std Deviation RDW Coeff of Uriel Plt Count MPV Immature Gran % (Auto) Neut % (Auto) Lymph % (Auto) [place] % (Auto) Eos % (Auto) Baso % (Auto) Absolute Neuts (auto) Absolute Lymphs (auto) Nucleated RBC % Differential Comment Polychromasia Hypochromasia Anisocytosis Ovalocytes Sodium Potassium Chloride Carbon Dioxide Anion Gap BUN Creatinine Estim Creat Clear Calc Est GFR (MDRD) Af Amer Est GFR (MDRD) Non-Af BUN/Creatinine Ratio Glucose Lactic Acid Calcium Total Bilirubin AST ALT Alkaline Phosphatase B-Natriuretic Peptide 405.4 H Total Protein Albumin Globulin Albumin/Globulin Ratio Crossmatch See Detail Rhythm Strip Rhythm Strip: A-fib Rate: 104 Ectopy: None EKG Initial EKG: Attestation: I personally reviewed and interpreted this EKG as follows: Interpretation: Atrial Fibrillation Comments: Atrial fibrillation at a rate of 104 bpm Left axis deviation Low voltage QRS Left anterior fascicular block Compared to prior EKG on 09/20/2022, patient is no longer in RVR with no other significant changes Management Discussion w/another healthcare provider: Hospitalist and Field Service Representative Critical Care Time Critical Care Time: Yes Critical care time (excluding procedures): 30-74 minutes (35), Discussing w/Patient &/or Family/Principal Secretary, Discussing w/Consultants and Arranging Admission or Transfer Discharge Plan Triage Chief Complaint: Abn Labs ED Provider: Jacki Gonzáles Dx/Rx/DC Orders Clinical Impression: Anemia, Cirrhosis of liver, USP current use of anticoagulant, Hypote nsion, Atrial fibrillation, Acute GI bleeding Prescriptions: No Action ferrous sulfate 325 MG tablet 325 mg PO BID Label Comments: Iron supplement folic acid 1 MG tablet 1 mg PO DAILY@0800 Label Comments: Supplement cyanocobalamin (vitamin B-12) 2,500 MCG tablet 2,500 mcg PO DAILY Label Comments: Supplement cholecalciferol (vitamin D3) 1,000 UNIT capsule 1,000 unit PO DAILY venlafaxine 37.5 mg tablet 37.5 mg PO QHS levothyroxine 100 mcg tablet 100 mcg PO DAILY Label Comments: take 1 tablet by mouth once daily pantoprazole [Protonix] 40 mg tablet,delayed release (DR/EC) 40 mg PO BID Qty: 60 2RF Rx Instructions: advised TWICE DAILY FOR 8 WEEKS THEN ONCE DAILY ascorbic acid (vitamin C) 500 mg tablet 500 mg PO BID Qty: 60 2RF warfarin 2 mg tablet 2 mg PO DAILY Protocol: Dose Management Condition: Sunday Dose/Route: 1 mg Instruction: 0.5 x 2 mg tablets Condition: Sunday Dose/Route: 0 mg Instruction: 0 tablets Condition: Sunday Dose/Route: 0 mg Instruction: 0 tablets Condition: Sunday Dose/Route: 0 mg Instruction: 0 tablets Condition: Dose/Route: 0 mg Instruction: 0 tablets Condition: Sunday Dose/Route: 0 mg Instruction: 0 tablets Condition: Sunday Dose/Route: 0 mg Instruction: 0 tablets Protocol Text: Adjustment Start Date: Sunday11/13/22 INR Value: 14.2 INR Date: 11/13/22 Recheck Date: 11/16/22 Label Comments: USE DIRECTED SEE ATTACHED PRINTOUT potassium chloride 20 mEq tablet,ER particles/crystals 20 meq PO DAILY Label Comments: take 1 tablet by mouth once daily midodrine 10 mg tablet 10 mg PO TID Qty: 90 3RF Rx Instructions: do not give last dose of day after 6PM or within 4 hrs of bedtime furosemide 40 mg tablet 40 mg PO .COMPLEX Qty: 180 3RF Rx Instructions: 40 mg orally daily; may need to take twice a day for increased weight, swelling , or shortness of breath; Primary Care Provider: Kodak Muñoz Referrals: Kodak Muñoz MD [Primary Care Provider] - Disposition Disposition: Acute Care Hospital [facility]
[2022-11-17] MEDS: 0.9% Normal Saline 1,000 ML 100 ML IV (16:08)
--- NOTE | 2022-11-17 16:24 | CON.PCM.GI_ITS ---
HPI Consult Data Date of Consult: 11/17/22 HPI Narrative Reason for Consultation: Anemia HPI Narrative: EMANI LOUIS, is a 82 F with complex medical history including atrial fibrillation, cirrhosis of the liver, angiodysplasia with frequent GI bleeds and mechanical valve nonsedating chronic Coumadin therapy presenting with anemia.? Patient states she has had black stools but is not sure if that is new or not.? Family is not at the bedside at this time. Patient had outpatient labs 2 days ago and again today.? Her hemoglobin today was 6.2 and she was sent to the emergency room.? Patient's INR was 14.2 on the third, 9.3 yesterday and 2.7 this morning.? Her BUN was 26 and a creatinine 1.64 yesterday.? Patient currently has no complaints. ? She denies any recent bloody bowel movements or other bleeding diathesis. She is a lady with a history of coronary artery disease, mitral valve disease status post replacement with a [address] [employer] mechanical valve.? In addition she is status post permanent pacemaker implantation for which she continues to be seen in the office.? She also has a history of chronic persistent atrial fibrillation and repeated anemias for which she is receiving recurrent blood transfusions as well as evaluations.? ?She tells me that she has received approximately 20 units of packed red blood cells, 2 units of plasma and 2 iron infusions in the last year.? In November 2017, she had capsule endoscopy which demonstrated nonbleeding duodenal ectasia, she also had diverticulosis of the sigmoid colon which was treated with argon plasma coagulation.? In March 2022 she underwent upper endoscopy by myself and was discovered to have angiodysplastic lesions in her proximal duodenum and the third portion of the duodenum. In 2016 she had had a GI radionuclide scan which demonstrated no focal areas, in October 2016 she had an EGD which demonstrated normal esophagus stomach and duodenum. ? As part of her workup she also had a transthoracic echo in December 2017 which demonstrated the left ventricular size being small estimated ejection fraction of 58%.? The right ventricle was dilated with pacer wires noted in the right ventricle and the right ventricular systolic pressure was estimated at 73 mmHg consistent with moderately severe pulmonary hypertension.? The left atrium was moderately dilated the mitral valve had a peak gradient of 25 mmHg and a mean gradient of 12 mmHg. She continues to abuse tobacco products.? [facility] Medical History Abdominal distension Acute GI bleeding Acute kidney injury superimposed on CKD Acute respiratory failure with hypoxemia Adenomatous colon polyp Anemia Anemia in chronic kidney disease Anemia requiring transfusions Anxiety Atrial fibrillation Bilateral leg edema Black stool Cardiac pacemaker in situ Carotid bruit Cholelithiasis Chronic gastrointestinal bleeding Chronic heart failure with preserved ejection fraction (HFpEF) Cirrhosis Cirrhosis of liver with ascites CKD (chronic kidney disease) COPD (chronic obstructive pulmonary disease) Depression Depression Diverticulosis GERD (gastroesophageal reflux disease) GI bleed GI bleeding HLD (hyperlipidemia) Hypokalemia Hypotension Hypotension Iron deficiency Irregular heart beat 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 Longstanding persistent atrial fibrillation Neutropenia Nicotine dependence Non-rheumatic aortic stenosis Non-rheumatic tricuspid valve insufficiency Nonrheumatic mitral (valve) insufficiency Pancytopenia Pericardial effusion Pleural effusion PVC's (premature ventricular contractions) Secondary pulmonary hypertension Severe protein-calorie malnutrition Smoker Supratherapeutic INR Supratherapeutic INR Tachycardia-bradycardia syndrome Thrombocytopenia Thrombocytopenia Type 2 diabetes mellitus Typical atrial flutter Home Medications ferrous sulfate 325 mg (65 mg iron) tablet 325 mg PO BID SUPPLEMENT 04/02/15 [History Last Taken 11/16/22] folic acid 1 mg tablet 1 mg PO DAILY@0800 supplement 04/30/15 [History Last Taken 11/16/22] cyanocobalamin (vitamin B-12) 2,500 mcg tablet 2,500 mcg PO DAILY vitamin 1 [History Last Taken 11/16/22] cholecalciferol (vitamin D3) 25 mcg (1,000 unit) capsule 1,000 unit PO DAILY SUPPLEMENT 04/07/19 [History Last Taken 11/16/22] levothyroxine 100 mcg tablet 100 mcg PO DAILY THYROID 01/19/21 [History Last Taken 11/16/22] venlafaxine 37.5 mg tablet 37.5 mg PO QHS DEPRESSION 05/03/21 [History Last Taken 11/16/22] ascorbic acid (vitamin C) 500 mg tablet 500 mg PO BID #60 tabs 09/05/22 [Rx Last Taken 11/16/22] pantoprazole 40 mg tablet,delayed release (Protonix) 40 mg PO BID #60 tabs 09/05/22 [Rx Last Taken 11/16/22] warfarin 2 mg tablet 2 mg PO DAILY BLOOD THINNER 09/20/22 [History Last Taken 1 Week Ago ~11/10/22] furosemide 40 mg tablet 40 mg PO .COMPLEX #180 tabs 09/27/22 [Rx Last Taken 11/16/22] midodrine 10 mg tablet 10 mg PO TID #90 tabs 09/27/22 [Rx Last Taken Unknown] potassium chloride 20 mEq tablet,extended release(part/cryst) 20 meq PO DAILY [place] PPLEMENT 11/17/22 [History Last Taken 11/16/22] Allergy/AdvReac Type Severity Reaction Status Date / Time amiodarone AdvReac vomiting, Verified 11/17/22 12:24 poor balance, dizziness digoxin AdvReac nausea, Verified 11/17/22 12:24 dry heaves lorazepam [From Ativan] AdvReac Unknown Verified 11/17/22 12:24 meloxicam [From Mobic] AdvReac Unknown Verified 11/17/22 12:24 nortriptyline HCl AdvReac Unknown Verified 11/17/22 12:24 [From Pamelor] zolpidem tartrate AdvReac Unknown Verified 11/17/22 12:24 [From Ambien] Family History Mother Cancer lung and renal Father Heart disease Surgical History History of cardioversion (10/2015) History of incision of pericardium History of left heart catheterization (07/17/08) History of mitral valve replacement with mechanical valve (07/22/08) History of tubal ligation Presence of permanent cardiac pacemaker (08/30/18) Social History Smoking Status: Current every day smoker tobacco type: cigarettes Tobacco: How many years used: 60 alcohol intake: never substance use type: does not use caffeine: Yes Type: carbonated beverages what type of physical activity do you participate in: none seatbelt use: always do you feel safe at home: Yes ROS ROS Narrative 10 systems were reviewed with pertinent positives as noted in the HPI above. Physical Exam Narrative HEENT normocephalic atraumatic extraoculars are intact, pupils equal and reactive, tracks, mucous membranes are moist, neck is supple with no JVD. Chest is clear bilaterally with no wheezes rales or rhonchi Cardiac loud S1 and S2 with mechanical valve present heard throughout the chest and abdomen. Abdomen is soft, nontender, distended. Extremities have no clubbing cyanosis or edema Neurologic exam is without tremor, nonfocal grossly, alert and oriented x3 Skin is warm and dry Lab / Micro Data Result Diagrams: 11/17/22 12:45 11/17/22 12:45 Labs: Laboratory Results - last 24 hr 11/17/22 12:45: WBC 5.2, RBC 2.07 L, Hgb 6.4 L, Hct 21.6 L, MCV 104.3 H, MCH 30.9, MCHC 29.6 L, RDW Std Deviation 76.8 H, RDW Coeff of Uriel 21.4 H, Plt Count 178, MPV 11.2, Immature Gran % (Auto) 1.000 H, Neut % (Auto) 80.8 H, Lymph % (Auto) 9.4 L, [place] % (Auto) 8.6, Eos % (Auto) 0.0, Baso % (Auto) 0.2, Absolute Neuts (auto) 4.2, Absolute Lymphs (auto) 0.49 L, Nucleated RBC % 0.6, Differential Comment SCANNED, Polychromasia 1+, Hypochromasia 1+, Anisocytosis 2+, Ovalocytes RARE 11/17/22 12:45: Sodium 139, Potassium 5.0, Chloride 115 H, Carbon Dioxide 17.0 L , Anion Gap 7, BUN 25 H, Creatinine 1.57 H, Estim Creat Clear Calc 22.60, Est GFR (MDRD) Af Amer 41 L, Est GFR (MDRD) Non-Af 34 L, BUN/Creatinine Ratio 15.9, Glucose 120 H, Calcium 8.9, Total Bilirubin 0.50, AST 19, ALT 8 L, Alkaline Phosphatase 99, Total Protein 6.0 L, Albumin 2.3 L, Globulin 3.7, Albumin /Globulin Ratio 0.6 L 11/17/22 13:57: Lactic Acid 1.4 11/17/22 13:57: B-Natriuretic Peptide 405.4 H 11/17/22 13:57: Crossmatch See Detail Micro: Microbiology 11/17/22 13:20 Stool Stool Occult Blood (TAMEKA) - Final Occult Blood Positive Rhythm Strip Rhythm Strip: A-fib Rate: 104 Ectopy: None Assessment & Plan Assessment/Plan (1) Hemorrhagic shock: PLAN: Patient admitted with hemorrhagic shock Admssion Hg 6.4. Patient says that she may want to undergo endoscopy in order to find out when she is bleeding. Her last upper endoscopy did show lesions in the proximal duodenum. She cannot remember the last time she had a colonoscopy. I will continue to follow her very closely. Recommend PPI drip and octreotide drip. Being that she does have cirrhosis and ascites she could have developed esophageal varices gastric varices or duodenal varices since her last upper endoscopy back in March 2022. (2) MAX (acute kidney injury): PLAN: Most likely prerenal from hemorrhagic shock. Continuing to improve after IVF and blood (3) Acute blood loss anemia: PLAN: Received 4 units When available Repeat H&H (4) Coagulopathy: PLAN: INR >14 recently Hold vitamin K and platelets for now. 11/17: INR 2.6. Hold Warfarin (5) GI bleed: PLAN: due to coagulopathy and history of duodenal ulcers versus cirrhosis versus angio dysplasias continue PPI drip and octreotide drip (6) History of mitral valve replacement with mechanical valve: PLAN: Try to keep INR around 2.5 at lower level because of hemorrhagic shock and consistent GI bleed Charges/Coding Visit Charges Inpatient E&M: 83182 Init Hosp L3
[2022-11-17 16:42] LABS: International Normalized Ratio 2.2
[2022-11-17 18:36] LABS: Magnesium 1.7 mg/dL (1.6-2.6); Phosphorus 3.5 mg/dL (2.5-4.9)
[2022-11-17] MEDS: Midodrine HCl 5 MG Tablet 10 MG PO (18:40)
[2022-11-17] MEDS: Albumin Human 25% (100 mL) 25 GM/100 ML BAG IV (18:40)
[2022-11-17 20:32] LABS: Hematocrit 27.2 % (37-47); Hemoglobin 7.7 g/dL (12.0-15.0)
[2022-11-17] MEDS: Venlafaxine HCl 75 MG Tablet 37.5 MG PO (22:14)
--- NOTE | 2022-11-18 | NURSING ---
Patient requested to leave stating, Can you bring me AMA papers? Patient alert, oriented and able to make her own decisions. RN explained the risks of leaving and the benefits of staying to receive medical care. Patient stated I know I could , but I want to go home. Patient called son, Gildardo, who was informed of the situation and agreed to come pick her up. Dr. Conley at bedside explained benefits and risks of staying or leaving, patient said I am aware and I want to leave. Patient signed AMA papers, IVs were pulled and her son Gildardo picked her up from the hospital at 2250.
--- NOTE | 2022-11-18 00:20 | PCM.HOSP.N ---
Hospitalist Note Patient is an 82-year-old white female who presented to the emergency department with anemia. She evidently had abnormal labs 2 days ago. Her hemoglobin was 6.2 as an outpatient today and she was sent to the emergency department. Her INR was 14.2 on November 13, 9.3 on November 16 and on presentation she was 2.7. She has a history of frequent GI bleeds and is chronically on Coumadin due to mechanical valve. She was admitted to the ICU and given 2 units of blood. Follow-up hemoglobin was 7.7. Late in the evening she decided she wanted to leave AGAINST MEDICAL ADVICE stating she thought she was just getting admitted to get blood and be discharged. She was seen by gastroenterology earlier on the day of admission and they recommended a Protonix drip and octreotide drip with possible plans for scoping. I explained risks of leaving AGAINST MEDICAL ADVICE and the patient states she could anywhere and she did not care. She wanted to go home where she would be more comfortable and get better sleep.
== END 2022-11-17 23:55 | disposition left against medical advice (07) | DRG 377 ==
LOC: ED 16:08 → ICU 16:19
PROVIDERS: Admitting Provider Family Medicine; Emergency Provider Emergency Medicine; PCP Internal Medicine; Visit Provider Family Medicine
DX: K92.2 Gastrointestinal hemorrhage, unspecified (principal); R57.8 Other shock; D68.9 Coagulation defect, unspecified; N17.9 Acute kidney failure, unspecified; I50.32 Chronic diastolic (congestive) heart failure; D62 Acute posthemorrhagic anemia; R18.8 Other ascites; I27.20 Pulmonary hypertension, unspecified; D69.6 Thrombocytopenia, unspecified; D63.1 Anemia in chronic kidney disease; K74.60 Unspecified cirrhosis of liver; E11.22 Type 2 diabetes mellitus with diabetic chronic kidney disease; N18.30 Chronic kidney disease, stage 3 unspecified; I48.0 Paroxysmal atrial fibrillation; J44.9 Chronic obstructive pulmonary disease, unspecified; I95.89 Other hypotension; F17.210 Nicotine dependence, cigarettes, uncomplicated; E03.9 Hypothyroidism, unspecified; E78.5 Hyperlipidemia, unspecified; K21.9 Gastro-esophageal reflux disease without esophagitis; F32.A Depression, unspecified; Z51.5 Encounter for palliative care; Z66 Do not resuscitate; Z95.2 Presence of prosthetic heart valve; Z79.01 Long term (current) use of 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; Z95.0 Presence of cardiac pacemaker
CPT/HCPCS: 36415; 80053; 82274; 83605; 83735; 83880; 84100; 85014; 85018; 85025; 85610; 86850; 86900; 86901; 86920; 86922; 93005; 94668; 99252; 99284; J7040; P9016; P9047; A4216; G0463; J2354; J3490

== ENCOUNTER → 2022-11-17 | Outpatient (CLI) | payer MEDICARE, SELFPAY ==
[2022-11-17 09:45] LABS: Absolute Lymphocyte Count 0.54 X10^3/uL (0.83-4.51); Absolute Neutrophil Count 4.1 X10^3/uL (2.0-7.7); Basophil# 0.01 X10^3/uL; Basophil% 0.2 % (0-1); Hematocrit 21.3 % (37-47); Hemoglobin 6.2 g/dL (12.0-15.0); Lymphocyte # 0.54 X10^3/ul (0.83-4.51); Lymphocyte % 10.5 % (19-41); Mean Corp Hgb Conc 29.1 g/dL (32-36); Mean Corpuscular Hgb 30.5 pg (27.0-32.0); Mean Corpuscular Volume 104.9 fL (81-99); Mean Platelet Vol. 11.1 fl (6.2-12.0); Monocyte# 0.43 X10^3/uL; Monocyte% 8.4 % (0-10); NRBC Flagged by Analyzer 0.6 % (0-5); Neutrophil # 4.09 X10^3/uL (2.7-7.7); Neutrophil % 79.7 % (47-70); POSITIVE DIFFERENTIAL YES; POSITIVE MORPHOLOGY YES; Platelet Count 157 K/mm3 (150-450); RBC Distribution Width CV 21.2 % (11.6-14.6); RBC Distribution Width SD 76.4 fl (35.1-43.9); Red Blood Count 2.03 M/mm3 (4.2-5.4); White Blood Count 5.1 K/mm3 (4.4-11.0)
[2022-11-17 09:54] LABS: Differential Indicated SCAN CRITERIA MET
[2022-11-17 10:05] LABS: International Normalized Ratio 2.7; Prothrombin Time (Protime)PT. 28.2 SECONDS (11.7-14.9)
[2022-11-17 10:42] LABS: Differential Comment SCANNED; Ovalocyte 1+; Polychromasia 1+
[2022-11-17 10:43] LABS: Anisocytosis 2+; Hypochromasia 2+
== END | disposition home or self-care (01) ==
LOC: LAB 08:33
PROVIDERS: Physician Assistant Medical; PCP Internal Medicine; Visit Provider Internal Medicine Cardiovascular Disease
DX: I48.91 Unspecified atrial fibrillation (principal); Z79.01 Long term (current) use of 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; D64.9 Anemia, unspecified
CPT/HCPCS: 36415; 85025; 85610

== ENCOUNTER → 2022-11-21 | Outpatient (CLI) | payer MEDICARE, SELFPAY ==
[2022-11-21 10:59] LABS: International Normalized Ratio 1.7; Prothrombin Time (Protime)PT. 20.1 SECONDS (11.7-14.9)
== END | disposition home or self-care (01) ==
LOC: LAB 09:39
PROVIDERS: PCP Internal Medicine; Visit Provider Internal Medicine Cardiovascular Disease
DX: I48.91 Unspecified atrial fibrillation (principal); Z79.01 Long term (current) use of 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
CPT/HCPCS: 36415; 85610

== ENCOUNTER → 2022-11-28 | Outpatient (CLI) | payer MEDICARE, SELFPAY ==
[2022-11-28 11:35] LABS: Hematocrit 30.9 % (37-47); Hemoglobin 9.5 g/dL (12.0-15.0); Mean Corp Hgb Conc 30.7 g/dL (32-36); Mean Corpuscular Hgb 30.9 pg (27.0-32.0); Mean Corpuscular Volume 100.7 fL (81-99); Mean Platelet Vol. 11.9 fl (6.2-12.0); POSITIVE MORPHOLOGY YES; Platelet Count 104 K/mm3 (150-450); RBC Distribution Width CV 20.1 % (11.6-14.6); RBC Distribution Width SD 71.6 fl (35.1-43.9); Red Blood Count 3.07 M/mm3 (4.2-5.4); White Blood Count 4.9 K/mm3 (4.4-11.0)
[2022-11-28 11:37] LABS: Scan Indicated on CBC? Y/N YES- FLAGS NOTED
[2022-11-28 11:42] LABS: Anion Gap 9 (5-15); BUN 27 mg/dL (7-18); Calcium,Total 8.1 mg/dL (8.5-10.1); Chloride 113 mmol/L (98-107); Creatinine, Serum 2.25 mg/dL (0.55-1.02); EST Glomerular Filtration Rate 22 mL/min (>60); Est Glom Filt Rate - Afr Amer 27 mL/min (>60); Glucose 132 mg/dL (74-106); Potassium 3.5 mmol/L (3.5-5.1); Sodium Level 141 mmol/L (136-145)
[2022-11-28 11:45] LABS: International Normalized Ratio 2.8; Prothrombin Time (Protime)PT. 29.1 SECONDS (11.7-14.9)
[2022-11-28 12:04] LABS: Differential Comment SCANNED
== END | disposition home or self-care (01) ==
LOC: LAB 09:52
PROVIDERS: Physician Assistant Medical; PCP Internal Medicine; Visit Provider Internal Medicine Cardiovascular Disease
DX: I48.91 Unspecified atrial fibrillation (principal); D69.6 Thrombocytopenia, unspecified; Z79.01 Long term (current) use of 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; Z95.2 Presence of prosthetic heart valve; K92.2 Gastrointestinal hemorrhage, unspecified; D64.9 Anemia, unspecified; I95.89 Other hypotension; E86.1 Hypovolemia; R60.9 Edema, unspecified
CPT/HCPCS: 36415; 80048; 85027; 85610

== ENCOUNTER → 2022-12-05 | Outpatient (CLI) | payer MEDICARE, SELFPAY ==
[2022-12-05 12:04] LABS: Prothrombin Time (Protime)PT. 58.7 SECONDS (11.7-14.9)
[2022-12-05 12:06] LABS: International Normalized Ratio 6.8
== END | disposition home or self-care (01) ==
LOC: LAB 09:05
PROVIDERS: PCP Internal Medicine; Visit Provider Internal Medicine Cardiovascular Disease
DX: I48.91 Unspecified atrial fibrillation (principal)
CPT/HCPCS: 36415; 85610

== ENCOUNTER → 2022-12-08 | Outpatient (CLI) | payer MEDICARE, SELFPAY ==
[2022-12-08 10:16] LABS: International Normalized Ratio 7.7; Prothrombin Time (Protime)PT. 66.8 SECONDS (11.7-14.9)
== END | disposition home or self-care (01) ==
LOC: LAB 09:01
PROVIDERS: PCP Internal Medicine; Visit Provider Internal Medicine Cardiovascular Disease
DX: I48.91 Unspecified atrial fibrillation (principal); Z95.2 Presence of prosthetic heart valve; Z79.01 Long term (current) use of 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
CPT/HCPCS: 36415; 85610

== ENCOUNTER → 2022-12-11 | Outpatient (CLI) | payer MEDICARE, SELFPAY ==
[2022-12-11 10:46] LABS: Prothrombin Time (Protime)PT. 59.7 SECONDS (11.7-14.9)
[2022-12-11 10:53] LABS: International Normalized Ratio 6.7
== END | disposition home or self-care (01) ==
LOC: LAB 08:15
PROVIDERS: PCP Internal Medicine; Visit Provider Internal Medicine Cardiovascular Disease
DX: I48.91 Unspecified atrial fibrillation (principal); Z95.2 Presence of prosthetic heart valve; Z79.01 Long term (current) use of 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
CPT/HCPCS: 36415; 85610